=== PATIENT | female | born 1945 | race Caucasian/White ===

== ENCOUNTER 2018-10-05 14:01 | Outpatient (REF) | payer MEDICARE, OTHER, SELFPAY ==
[2018-10-05 21:21] LABS: HCT 38.3 % (36.0-46.0); HGB 12.2 g/dL (12.0-15.5); Mean Corp. HGB Concentration 31.9 g/dL (32.0-36.0); Mean Corpuscular Hemoglobin 28.2 pg (27.0-33.0); Mean Corpuscular Volume 88.7 fL (80-95); Mean Platelet Volume 10.6 fL (8.0-11.0); Platelet Count 257 x1000/uL (130-400); RBC 4.32 m/cumm (4.00-5.20); RBC Distribution Width 13.2 % (11.7-14.6); White Blood Cell Count 6.96 k/cumm (4.4-10.8)
[2018-10-05 21:29] LABS: Anion Gap 11.2 mmol/L (3-11); BUN 22 mg/dL (7-18); CO2 24.8 mmol/L (21.0-32.0); Calcium 9.1 mg/dL (8.5-10.1); Calculated LDL 94; Chloride 104 mmol/L (98-107); Cholesterol 171 mg/dL (50-200); Glucose 90 mg/dL (70-100); HDL Cholesterol 62 mg/dL (40-60); Potassium 4.3 mmol/L (3.5-5.1); Sodium 140 mmol/L (136-145); Triglyceride 75 mg/dL (30-150)
== END 2018-10-05 14:21 ==
LOC: NCHCN 14:01
PROVIDERS: PCP Nurse Practitioner Family; Visit Provider Nurse Practitioner Family
DX: E11.9 Type 2 diabetes mellitus without complications (principal); I10 Essential (primary) hypertension; E78.5 Hyperlipidemia, unspecified; Z86.2 Personal history of diseases of the blood and blood-forming organs and certain disorders involving the immune mechanism
CPT/HCPCS: 80048; 80061; 83721; 85027

== ENCOUNTER 2019-09-30 22:36 | Outpatient (REF) | payer MEDICARE, OTHER, SELFPAY ==
[2019-09-30 21:34] LABS: HCT 36.6 % (36.0-46.0); HGB 11.7 g/dL (12.0-15.5); Mean Corpuscular Hemoglobin 27.6 pg (27.0-33.0); Mean Corpuscular Volume 86.3 fL (80-95); Mean Platelet Volume 10.4 fL (8.0-11.0); Platelet Count 314 x1000/uL (130-400); RBC 4.24 m/cumm (4.00-5.20); RBC Distribution Width 13.5 % (11.7-14.6); White Blood Cell Count 6.67 k/cumm (4.4-10.8)
[2019-09-30 21:58] LABS: Hemoglobin A1C 6.6 % (3.8-5.6)
[2019-09-30 22:19] LABS: Anion Gap 12.1 mmol/L (3-11); BUN 20 mg/dL (7-18); CO2 25.9 mmol/L (21.0-32.0); CREATININE 0.94 mg/dL (0.55-1.02); Calcium 9.4 mg/dL (8.5-10.1); Chloride 105 mmol/L (98-107); Estimated GFR 58.37 (mL/min/1.73m2); Glucose 100 mg/dL (74-106); Magnesium 1.9 mg/dL (1.8-2.4); Potassium 4.3 mmol/L (3.5-5.1); Sodium 143 mmol/L (136-145); Vitamin B12 387 pg/mL (193-986)
== END 2019-09-30 22:56 ==
LOC: NCHCN 22:36
PROVIDERS: PCP Nurse Practitioner Family; Visit Provider Nurse Practitioner Family
DX: E11.9 Type 2 diabetes mellitus without complications (principal); I10 Essential (primary) hypertension; K21.9 Gastro-esophageal reflux disease without esophagitis; M15.9 Polyosteoarthritis, unspecified; Z86.2 Personal history of diseases of the blood and blood-forming organs and certain disorders involving the immune mechanism
CPT/HCPCS: 80048; 85027; 82607; 83036; 83735

== ENCOUNTER 2020-09-28 14:19 | Outpatient (REF) | payer MEDICARE, OTHER, SELFPAY ==
--- OUTSIDE RECORDS SUMMARY | 2020-09-28 14:23 | XMS_ITS | Continuity of Care Document ---
:1945 Author Organization Address [address] [place] [address] Care Team Providers Name Role [facility] Unavailable Dianelys Borden Attending Physician Allergies, Adverse Reactions, Alerts Allergen Type Severity Reaction Last Updated Verified Status simvastatin Allergy Unknown leg cramps November 01, 2017 N Act nguyễn Sulfa (Sulfonamide Allergy unknown September 07, 2016 Y Active Antibiotics) Medications Active Medications Medication Dose Units Route Sig Qty Start Date Status Atorvastatin 40 MG ORAL BEDTIME June 23, 2016 Activ e Omeprazole 40 MG ORAL EVERY MORNING June 23, 2016 A ctive Calcium Carbonate 500 MG ORAL TWICE A DAY June 23 017 Active [Calcium 500] Metformin 1000 MG ORAL TWICE A DAY June 23, 2016 Acti ve Ibuprofen [Motrin Ib] 600 MG ORAL THREE TIMES A DAY June 23, 2016 Active PRN For Pain Multivitamin 1 TAB-CAP ORAL EVERY MORNING June 23, 2016 Active Atenolol 50 MG ORAL EVERY MORNING June 23, 2016 Act nguyễn Magnesium 400 MG ORAL EVERY EVENING June 23, 2016 Ac tive Metoprolol Succinate November 01 Active Discontinued Medications Medication Dose Units Route Sig Qty Start Discontinued Status Date Date Metformin 500 MG ORAL EVERY June 23September 02, 2016 Discontinued MORNING 2016 Aspirin 81 MG ORAL BEDTIME June 23September 02, 2016 Di scontinued 2016 Lisinopril 40 MG ORAL EVERY June 23November 01 8 Discontinued 2016 Nitrofurantoin 1 CAP ORAL Q12H PRN June 23October Discontinued Monohyd/M-Cryst For 2017 [Macrobid] Bladder Spasms Cephalexin 500 MG ORAL TWICE A 14 October 03November 01 8 Discontinued 2017 Problem List Inactive/Resolved Problems Medical Problem Onset Date Status Post concussion syndrome Inactive Acute UTI Inactive Procedures Procedure Date Status MRI Brain w/wo Contrast November 01, [address] Head w/o Contrast November 01, 2017 completed Urine Culture October 03, 2017 completed Relevant Diagnostic Tests and/or Laboratory Data Laboratory Results Test Date/Time Result Interp. Ref. Range Result Comment White Blood Count November 01, 2017 6.39 1000/mm3 4.8-10.8 9:11am Red Blood Count November 01, 2017 4.01 M/mm3 Low 4.20-5.40 9:11am Hemoglobin November 01, 2017 11.3 g/dL Low 12.0-16.0 9:11am Hematocrit November 01, 2017 35.9 % Low 37-47 9:11am Mean Corpuscular November 01, 2017 89.5 fL 81.0-99.0 Volume 9:11am Mean Corpuscular November 01, 2017 28.2 pg 27-31 Hemoglobin 9:11am Mean Corpuscular November 01, 2017 31.5 g/dL Low 33-37 Hemoglobin Concent 9:11am Red Cell November 01, 2017 14.1 % 11.5-14.5 Distribution Width 9:11am Platelet Count November 01, 2017 259 1000/mm3 140-440 9:11am Mean Platelet Volume November 01, 2017 9.9 fL 7.4-10.4 9:11am Neutrophils (%) November 01, 2017 60.3 % 40.0-72.0 (Auto) 9:11am Lymphocytes (%) November 01, 2017 29.4 % 17-45 (Auto) 9:11am Monocytes (%) (Auto) November 01, 2017 7.7 % 3-11 9:11am Eosinophils (%) November 01, 2017 2.3 % 0-3 (Auto) 9:11am Basophils (%) (Auto) November 01, 2017 0.3 % 0-1 9:11am Neutrophils # (Auto) November 01, 2017 3.85 1000/mm3 1.4-6.5 9:11am Lymphocytes # (Auto) November 01, 2017 1.88 1000/mm3 1.2-3.4 9:11am Monocytes # (Auto) November 01, 2017 0.49 1000/mm3 0.0-0.8 9:11am Eosinophils # (Auto) November 01, 2017 0.15 1000/mm3 0.0-0.7 9:11am Basophils # (Auto) November 01, 2017 0.02 1000/mm3 0.0-0.1 9:11am Differential Method November 01, 2017 Automated 9:11am Sodium Level November 01, 2017 142 mmol/L 137-145 9:11am Potassium Level November 01, 2017 4.1 mmol/L 3.6-5.0 9:11am Chloride Level November 01, 2017 105 mmol/L 98-107 9:11am Carbon Dioxide Level November 01, 2017 28 mmol/L 22-30 9:11am Anion Gap November 01, 2017 9 7-16 9:11am Blood Urea Nitrogen November 01, 2017 20 mg/dL High 7-17 9:11am Creatinine November 01, 2017 0.70 mg/dL 0.52-1.04 9:11am Glomerular November 01, 2017 > 60 mL/min 60.0- Filtration Rate Calc 9:11am Glucose Level November 01, 2017 138 mg/dL High 70-100 9:11am Calcium Level November 01, 2017 9.7 mg/dL 8.4-10.2 9:11am Microbiology Results Procedure Source Result Collection Date/Time Result Date/Time Urine Culture Ur,Clean Catch Escherichia Coli October 03, 2017 1:00pm October 05, 2017 8:41am Advance Directives Advance Directive Response Recorded Date/Time Do we have a copy on file here at [facility]? Yes 2016 8:06am Does patient have an Advanced Directive? Yes June 29, 2016 8:06am Pt has a Living Will? Yes June 29, 2016 8:06 am Pt has a Power of Airbrush Painter? Yes June 29 8:06am Hospital Discharge Instructions No known hospital discharge instructions. Hospital Discharge Medications Medication Dose Units Route Sig Qty Days Order Status Instru ctions Date Atorvastatin 40 MG ORAL BEDTIME June Metformin 500 MG ORAL EVERY June Discontinued MORNING 2016 Omeprazole 40 MG ORAL EVERY June Active MORNING 2016 Aspirin 81 MG ORAL BEDTIME June Calcium 500 MG ORAL TWICE A June Active Carbonate DAY 2016 Metformin 1000 MG ORAL TWICE A June Active DAY 2016 Ibuprofen 600 MG ORAL THREE June Active TIMES A 2016 DAY PRN For Pain Lisinopril 40 MG ORAL EVERY June Discontinued MORNING 2016 Multivitamin 1 TAB-CAP ORAL EVERY June Active MORNING 2016 Atenolol 50 MG ORAL EVERY June Active MORNING 2016 Magnesium 400 MG ORAL EVERY June Active EVENING 2016 Nitrofurantoin 1 CAP ORAL Q12H PRN June Disc inued Monohyd/M-Cryst For 2016 Bladder Spasms Cephalexin 500 MG ORAL TWICE A September Metoprolol October Encounters Encounter Facility Location Admit/Visit Discharge/Departure Atte nding Date Date Provider Departed [facility] December 12December 12, 2017 Physician Caleb[facility] Dermatology 2017 11:08am 11:09am Kaitlynn martinez Office Visit Departed [facility] Pathology December 12December 12, 2017 Suha [facility] 2017 7:45am 7:46am Kristina Departed [facility] Emergency November 01, 2017 November 01, 2017 11:28a m [facility] Department 6:46am Departed [facility] October 03, 2017 October 03, 2017 10:4 3am Physician Yoel[facility] 10:42am Yen martinez [place] Office Visit Departed [facility] October 03, 2017 October 03, 2017 11:4 5am [facility] 10:36am [place] Functional Status No known functional status. Immunizations No known immunizations. Payers Payer Name Policy Type Covered Covered Relationship Subscriber Sub scriber Constitution Party Constitution Party Id Id MEDICARE Medicare BRYCE [id number] Self/Same as BRYCE HILL [id number] OUT (DO NOT Primary LIZ Patient USE) MEDICARE Medicare BRYCE [id number] Self/Same as BRYCE HILL 3N [id number] PART A AND Primary LIZ Patient B COVERAGE SELF PAY Personal [employer] BRYCE [id number] Self/Same as BRYCE HILL [id number] HEALTH CARE LIZ Patient [employer] BRYCE [id number] Self/Same as BRYCE HILL [id number] HEALTH (DO HILL Patient NOT USE) Plan of Care No Known Plan of Care Information Social History Query Response Start Date Stop Date Smoking Status Never smoker Vital Signs Vital Reading Result Reference Range Collection Date/ Time Height n/a Weight 88.451 kg November 01, 2017 6: 50am Temperature 98.4 F 97.6 F-99.6 F November 01, 2017 6: 50am Pulse 87 BPM 60-100 November 01, 2017 6: 50am Respiration 16 RPM 12-24 November 01, 2017 6: 50am Pulse Oximetry 97 % 95-100 November 01, 2017 6: 50am Blood Pressure Systolic 152 100-140 November 01, 2017 6:50am Blood Pressure Diastolic 82 50-85 October 6:50am Body Mass Index n/a
--- OUTSIDE RECORDS SUMMARY | 2020-09-28 14:23 | XMS_ITS | Continuity of Care Document ---
:1945 Author Organization [facility] Address [address] [place] [address] Care Team Providers Name Role Phone [facility] Primary Care Physician Unavailable Maggy Rojas Attending Physician Allergies, Adverse Reactions, Alerts Allergen Type Severity Reaction Last Updated Verified Status simvastatin Allergy leg cramps June 23, 2016 Y Act nguyễn Sulfa (Sulfonamide Allergy unknown June 23, 2016 Y Active Antibiotics) Medications Active Medications Medication Dose Units Route Sig Start Date Status Atorvastatin 40 mg ORAL BEDTIME June 23, 2016 Act nguyễn Metformin 500 mg ORAL EVERY MORNING June 23, 2016 Ac tive Omeprazole 40 mg ORAL EVERY MORNING June 23, 2016 A ctive Aspirin 81 mg ORAL BEDTIME June 23, 2016 Active Calcium Carbonate [Calcium 500 mg ORAL TWICE A DAY M 2016 Active 500] Metformin 1000 mg ORAL 1800 June 23, 2016 Active Ibuprofen [Motrin Ib] 600 mg ORAL THREE TIMES A DAY June 23, 2016 Active PRN For Pain Lisinopril 40 mg ORAL EVERY MORNING June 23, 2016 A ctive Multivitamin 1 tab-cap ORAL EVERY MORNING June 23, 2016 Active Atenolol 50 mg ORAL EVERY MORNING June 23, 2016 Ac tive Magnesium 400 mg ORAL EVERY EVENING June 23, 2016 Ac tive Nitrofurantoin 1 cap ORAL Q12H PRN For June 23 7 Active Monohyd/M-Cryst [Macrobid] Bladder Spasm s Problem List No problem information available. Procedures Procedure Date Status CATARACT SURG W/IOL 1 STAGE June 29, 2016 active Reason for Referral Reason for Referral Date Referral Provider Office Contact Locat ion was Provided Relevant Diagnostic Tests and/or Laboratory Data No known relevant diagnostic tests, laboratory data, and/or discharge summary. Advance Directives Advance Directive Response Recorded Date/Time Do we have a copy on file here at [facility] Yes [facility] 2016 8:06am Does patient have an Advanced Directive? Yes June 29, 2016 8:06am Pt has a Living Will? Yes June 29, 2016 8:06 am Pt has a Power of Manager Training? Yes June 29 8:06am Chief Complaint and Reason for Visit Encounter Admit Date Chief Complaint Reason for Visit Departed July 07, 2016 Provider Based Billing Physician/Provider Office 9:12am Visit Hospital Discharge Instructions No known hospital discharge instructions. Hospital Discharge Medications Medication Dose Units Route Sig Qty Days Order Status Instru ctions Atorvastatin 40 mg ORAL BEDTIME June 232016 Metformin 500 mg ORAL EVERY June 23, 2016 Omeprazole 40 mg ORAL EVERY June 23, 2016 Aspirin 81 mg ORAL BEDTIME June 232016 Calcium Carbonate 500 mg ORAL TWICE A DAY June 232016 Metformin 1000 mg ORAL 1800 June 232016 Ibuprofen 600 mg ORAL THREE TIMES June 23, Active A DAY PRN 2016 For Pain Lisinopril 40 mg ORAL EVERY June 23, 2016 Multivitamin 1 tab-cap ORAL EVERY June 23, 2016 Atenolol 50 mg ORAL EVERY June 23, 2016 Magnesium 400 mg ORAL EVERY June 23, EVENING 2016 Nitrofurantoin 1 cap ORAL Q12H PRN June 23, e Monohyd/M-Cryst For Bladder 2017 Spasms Encounters Encounter Facility Location Admit/Visit Discharge/Departure Atte nding Date Date Provider Departed [facility] July 07July 07, 2016 9:13am Crystal [facility] 2017 9:12am Albert martinez Office Visit Departed [facility] June 30, 2016 June 30, 2016 8:14 am Crystal Physician/[facility] Ophthalmology 8:13am Ricardo martinez Office Visit Departed [facility] Surgical June 29, 2016 June 29, 2016 9:49am Crystal Surgical [facility] Services 8:00am Abisai Zepeda Registered [facility] 2016 2:52pm Norris kraft Functional Status No known functional status. Immunizations No known immunizations. Payers Payer Name Policy Type Covered Covered Relationship Subscriber Sub scriber Constitution Party Constitution Party Id Id MEDICARE Medicare BRYCE [id number] Self/Same as BRYCE HILL [id number] OUT (DO NOT Primary LIZ Patient USE) MEDICARE Medicare BRYCE [id number] Self/Same as BRYCE HLIL [id number] PART A AND Primary LIZ Patient B COVERAGE SELF PAY Personal [employer] BRYCE [id number] Self/Same as BRYCE HILL [id number] HEALTH CARE LIZ Patient [employer] WU [id number] Self/Same as BRYCE HILL [id number] [facility] Patient Plan of Care No Known Plan of Care Information Social History Query Response Start Date Stop Date Smoking Status Never Smoker Vital Signs Vital Reading Result Reference Range Collection Date/ Time Height 5 ft 4 in June 23, 2016 10 :22am Weight 90.718 kg June 23, 2016 10 :22am Temperature 97.8 F 97.6 F-99.6 F June 29, 2016 9: 48am Pulse 53 BPM 60-100 June 29, 2016 9: 48am Respiration 20 RPM 12-June 29, 2016 9: 48am Pulse Oximetry n/a Blood Pressure Systolic 141 100-140 June 29, 2016 9:48am Blood Pressure Diastolic 87 50-85 June 9:48am Body Mass Index n/a
--- OUTSIDE RECORDS SUMMARY | 2020-09-28 14:23 | XMS_ITS | Continuity of Care Document ---
:1945 Author Organization [facility] Address [address] [place] [address] Care Team Providers Name Role Phone [place] of Town Primary Care Physician Unavailable Tashia Fong Attending Physician Unavailable Allergies, Adverse Reactions, Alerts Allergen Type Severity Reaction Last Updated Verified Status simvastatin Adverse Reaction Moderate October 13, 2016 Y Active Sulfa (Sulfonamide Adverse Reaction Unknown February 23 Y Active Antibiotics) Medications Active Medications Medication [...] 2016 Ac tive Metoprolol Succinate November 01 18 Active Discontinued Medications Medication Dose Units Route Sig Qty Start Discontinued Status Date Date Metformin 500 MG ORAL EVERY June 23September 02, 2016 Discontinued MORNING 2016 Aspirin 81 MG ORAL BEDTIME June 23September 02, 2016 Di scontinued 2016 Lisinopril 40 MG ORAL EVERY June 23November 01 8 Discontinued MORNING 2016 Nitrofurantoin 1 CAP ORAL Q12H PRN June 23October Discontinued Monohyd/M-Cryst For 2017 [Macrobid] Bladder Spasms Cephalexin 500 MG ORAL TWICE A 14 October 03November 01 8 Discontinued DAY 2017 Problem List Active Problems Medical Problem Onset Date Status Combined forms of age-related cataract May 24, 2016 Neoplasm of uncertain behavior of skin December 12, 2017 Type 2 diabetes mellitus May 24, 2016 Trochanteric bursitis February 27, 2018 Neurogenic claudication due to lumbar spinal stenosis 2018 Thoracic and lumbosacral neuritis May 10, 2018 History of cataract extraction July 07, 2016 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 27, 2018 Inactive/Resolved Problems Medical Problem Onset Date Status Acute hip pain Inactive Post concussion syndrome Inactive Acute UTI Inactive Procedures Procedure Date Status MRI Lumbar Spine w/o Contrast April 09, 2018 completed Lumbar Spine 4 vw Min February 27, 2018 active Hip 2 vw Min RT February 22, 2018 completed MRI Brain w/wo Contrast November 01, 2017 [...] 03, 2017 1:00pm October 05, 2017 8:41am Chief Complaint and Reason for Visit Encounter Admit Date Chief Complaint Reason for Visit Departed August 21, 2018 Provider Based Billing Physician/Provider Office 8:51am Visit Hospital Discharge Instructions No known hospital [...] Nitrofurantoin 1 CAP ORAL Q12H PRN June inued Monohyd/M-Cryst For 2016 Bladder Spasms Cephalexin 500 MG ORAL TWICE A 14 September Discontinued DAY 2017 Metoprolol October Active Succinate 2017 Encounters Encounter Facility Location Admit/Visit Discharge/Departure Atte nding Date Date Provider Departed [facility] August 21August 21, 2018 8:52am Ajit [facility] 2018 8:51am Juvencio ovider Office Visit Departed [facility] August 21August 21, 2018 Rena [facility]Agustina 2018 12:00am Con version ovider ab Office Visit Departed [facility] August 20August 20, 2018 Rena [facility] Derm[facility] 2018 12:00am Sukhdev michele [facility]ider Office Visit Departed [facility] May 10May 10, 2018 Sumanth rodriguez [facility] 2018 9:13am 9:14am Juvencio ovider Office Visit Departed [facility] May 10May 10, 2018 Santos holden Physician[facility] 2018 12:00am Con version ovider ab Office Visit Departed [facility] April 13April 13, 2018 Conchita sweet [facility] 2017 1:53pm 1:54pm Jamel ovider Office Visit Departed [facility] April 13April 13, 2018 Conchita sweet [facility]ician[facility] 2017 12:00am Nol an ovider ab Office Visit Departed [facility] April 11April 11, 2018 Conchita sweet [facility]ician[facility] 2017 12:00am Nol an ovider ab Office Visit Departed [facility] April 09April 09, 2018 [facility] 12:08[facility] 12:09pm [facility] Departed [facility] March 26March 26, 2018 Mack smith [facility] 2017 8:52am 8:53am Jamel ovider Office Visit Departed [facility] March 26March 26, 2018 Mack smith Physician/[facility] Orthopedic&Agustina 2018 12:00am Nol an ovider ab Office Visit Discharged [facility] March 21April 25, [address] [facility] 2017 10:30am 11:29am Jamel Departed [facility] March 13March 13, 2018 Conchita sweet [facility] 2018 9:05am 9:06am Jamel ovider Office Visit Departed [facility] March 13March 13, 2018 Conchita sweet [facility]ician[facility] 2017 12:00am Nol an ovider ab Office Visit Departed [facility] February 27February 27, 2018 Art kraft [facility] 2017 10:03am 10:04am Jamel Orthopedics Departed [facility] February 27February 27, [facility] 2017 9:24am 9:25am Jamel ovider Office Visit Departed [facility] February 27February 27, 2018 Mack smith Physician/[facility] Orthopedic&Agustina 2018 12:00am Nol an ovider ab Office Visit Departed [facility] February 22February 22, 2018 And letitia Physician/[facility] 2018 8:59am 9:00am Nyasia ovider [place] Office Visit Departed [facility] February 22February 22, [facility] 2018 8:55am 10:19am [place] Discharged [facility] February 20March 12, [facility] 9:30am 11:29am Barbara Departed [facility] February 08February 08, 2018 Cassandra hernandez, Physician[facility] 2018 9:41am 9:42am Stepjorge l maldonado ovider Office Visit Departed [facility] February 08February 08, 2018 Santos holden, [facility]ician[facility] 2018 12:00am Sukhdev leny ovider Office Visit Departed [facility] December 12December 12, 2017 Eugenie bryan, [facility] 2018 11:08am 11:09am Kaitlynn piña ovider Office Visit Departed [facility] December 12December 12, [facility] 7:[facility]am 7:46am Kristina Departed [facility] December 12December 12, 2017 Anupama sarmiento, [facility]ician[facility] 2018 12:00am Sukhdev leny ovider Office Visit Departed [facility] Emergency November 01, 2017 November 01, 2017 11:28a m [facility] Department 6:46am Departed [facility] October 03, 2017 October 03, 2017 10:4 3am Yoel [facility] 10:42am Yen juan Wrenadriano Office Visit Departed [facility] October 03, 2017 October 03, 2017 11:4 5am [facility] 10:36am Jasmina Functional Status No known functional status. Immunizations No known immunizations. Payers Payer Name Policy Type Covered Covered Relationship Subscriber Sub scriber Green Party Green Party Id Id [employer] BRYCE [id number] Self/Same as BRYCE HILL [id number] OUT OF [place] Patient STATE MEDICARE Medicare BRYCE [id number] Self/Same as BRYCE HILL [id number] OUT (DO NOT Primary LIZ Patient USE) MEDICARE Medicare BRYCE [id number] Self/Same as BRYCE HILL 3N [id number] PART A AND Primary LIZ Patient B COVERAGE SELF PAY Personal [employer] BRYCE [id number] Self/Same as BRYCE HILL [id number] HEALTH CARE LIZ Patient [employer] BRYCE [id number] Self/Same as BRYCE HILL [id number] HEALTH (DO LIZ Patient NOT USE) Plan of Care No Known Plan of Care Information Social History No known social history. Vital Signs Vital Reading Result Reference Range Collection Date/ Time Height n/a Weight 88.451 kg February 22, 2018 9:10am Temperature 98.4 F 97.6 F-99.6 F February 22, 2018 9:10am Pulse 72 BPM 60-100 February 22, 2018 9:10am Respiration 16 RPM 12-24 February 22, 2018 9:10am Pulse Oximetry 98 % 95-100 February 22, 2018 9:10am Blood Pressure Systolic 128 100-140 February 22, 2018 9:10am Blood Pressure Diastolic 74 50-85 Novembe 2017 9:10am Body Mass Index n/a
--- OUTSIDE RECORDS SUMMARY | 2020-09-28 14:23 | XMS_ITS | Continuity of Care Document ---
:1945 Author Organization [facility] Address [address] [place] [address] Care Team Providers Name Role Phone Zoraida Primary Care Physician Harjit Collins Attending Physician Allergies, Adverse Reactions, Alerts Allergen Type Severity Reaction Last Updated Verified Status simvastatin Allergy Unknown leg cramps February 22, 2018 Y Active Sulfa (Sulfonamide Allergy unknown September 07, 2016 [...] 40 MG ORAL EVERY June 23November 01 201 8 Discontinued MORNING 2016 Nitrofurantoin 1 CAP ORAL Q12H PRN June 23October Discontinued Monohyd/M-Cryst For 2017 [Macrobid] Bladder Spasms Cephalexin 500 MG ORAL TWICE A 14 October 03November 01 201 8 Discontinued DAY 2017 Problem List Active Problems Medical Problem Onset Date Status Acute hip pain Active Inactive/Resolved Problems Medical Problem Onset Date Status Post concussion syndrome Inactive Acute UTI Inactive Procedures Procedure Date Status Hip 2 vw Min RT February 22, [...] have a copy on file here at [facility]? Yes [facility] 2016 8:06am Does patient have an Advanced Directive? Yes June 29, 2016 8:06am Pt has a Living Will? Yes June 29, 2016 8:06 am Pt has a Power of [employer]? Yes June 29 7 8:06am Chief Complaint and Reason for Visit Encounter Admit Date Chief Complaint Reason for Visit Departed February 22, 2018 Provider Based Billing Physician/Provider 8:59am Office Visit Hospital Discharge Instructions No known hospital discharge instructions. Hospital Discharge Medications Medication Dose Units Route Sig Qty Days Order Status Instru ctions Date Atorvastatin 40 MG ORAL BEDTIME June Active 2016 Metformin 500 MG ORAL EVERY June Discontinued [...] Spasms Cephalexin 500 MG ORAL TWICE A 05 October Discontinued DAY 2017 Metoprolol October Active Succinate 2017 Encounters Encounter Facility Location Admit/Visit Discharge/Departure Atte nding Date Date Provider Departed [facility] February 22, February 22, 2018 And letitia [facility] 2017 8:59am 9:00am Nyasia Freedman Office Visit Departed [facility] February 22, February 22, [facility] 2017 8:55am 10:19am Jasmina Registered [facility] February 20, [facility] 2017 9:30am Barbara Departed [facility] February 08, February 08, 2018 Cassandra hernandez Physician[facility] 2018 9:41am 9:42am Gianna maldonado ovider Office Visit Departed [facility] December 12, December 12, 2017 Eugenie bryan Physician[facility] 2018 11:08am 11:09am Kaitlynn piña ovider Office Visit Departed [facility] Path[facility] December 12, December 12, [facility] 7:46am Kristina Departed [facility] Emergency November 01, 2017 November 01, 2017 11:28a m [facility] Department 6:46am Departed [facility] October 03, 2017 October 03, 2017 10:4 3am Yoel Physician[facility] 10:42am Yen Freedman Office Visit Departed [facility] October 03, 2017 October 03, 2017 11:4 5am [facility] 10:36am Jasmina Functional Status No known functional status. Immunizations No known immunizations. Payers Payer Name Policy Type Covered Covered Relationship Subscriber Sub scriber Green Party Green Party Id Id MEDICARE Medicare BRYCE [id number] Self/Same as BRYCE HILL [id number] (DO NOT Primary LIZ Patient USE) MEDICARE Medicare BRYCE [id number] Self/Same as BRYCE HILL [id number] PART A AND Primary LIZ Patient B COVERAGE SELF PAY Personal [employer] BRYCE [id number] Self/Same as BRYCE HILL [id number] HEALTH CARE LIZ [employer] BRYCE [id number] Self/Same as BRYCE HILL [id number] HEALTH (DO LIZ Patient NOT USE) Plan [...] 2018 9:10am Blood Pressure Diastolic 74 50-85 [facility] 2017 9:10am Body Mass Index n/a
--- OUTSIDE RECORDS SUMMARY | 2020-09-28 14:23 | XMS_ITS | Continuity of Care Document ---
:1945 Author Organization [facility] Address [address] [place] [address] Care Team Providers Name Role Phone [facility] Primary Care Physician Unavailable Maggy Rojas Attending [...] problem information available. Procedures Procedure Date Status Provider(s) Cataract Extraction with IOL - MAC & June 29, 2016 completed Abisai Rojas Topical (Right) Reason for Referral Reason for Referral Date Referral Provider Office Contact Locat ion was Provided Relevant Diagnostic Tests and/or Laboratory Data No known relevant diagnostic tests, laboratory data, and/or discharge summary. Advance Directives Advance Directive Response Recorded Date/Time Do we have a copy on file here at [facility]? Yes M arch 2016 8:06am Does patient have an Advanced Directive? Yes June 29, 2016 8:06am Pt has a Living Will? Yes June 29, 2016 8:06 am Pt has a Power of Community Living Specialist? Yes June 29 8:06am Chief Complaint and Reason for Visit Encounter Admit Date Chief Complaint Reason for Visit Departed July 07, 2016 Provider Based Billing Physician/Provider Office 9:12am Visit Hospital Discharge Instructions No known hospital discharge instructions. Hospital Discharge Medications Medication Dose Units Route Sig Qty Days Order Status Instru ctions Date Atorvastatin 40 mg ORAL BEDTIME June 232016 [...] Discharge/Departure Atte nding Date Date Provider Departed [facility] July 07July 07, 2016 9:13am Crystal [facility] 2017 9:12am Albert martinez Office Visit Departed [facility] June 30, 2016 June 30, 2016 8:14 am Crystal Physician[facility] 8:13am Ricardo martinez Office Visit Departed [facility] Surgical June 29, 2016 June 29, 2016 9:49am Crystal Surgical Day [facility] Services 8:00am Abisai Zepeda Registered [facility] May 24, Crystal [facility] 2016 2:52pm Norris kraft Functional Status No known functional status. Immunizations No known immunizations. Payers Payer Name Policy Type Covered Covered Relationship Subscriber Sub scriber Constitution Party Constitution Party Id Id MEDICARE Medicare BRYCE [id number] Self/Same as BRYCE HILL [id number] OUTPATIENT Primary LIZ Patient *DON'T USE MEDICARE PART Medicare BRYCE [id number] Self/Same as BRYCE HILL [id number] A AND B Primary LIZ Patient COVERAGE SELF PAY Personal [employer] BRYCE [id number] Self/Same as BRYCE HILL [id number] CARE LIZ Patient [employer] BRYCE [id number] Self/Same as BRYCE HILL [id number] (DO NOT USE) LIZ Patient Plan of Care No Known Plan [...]
--- OUTSIDE RECORDS SUMMARY | 2020-09-28 14:23 | XMS_ITS | Continuity of Care Document ---
:1945 Author Organization [facility] Address [address] [place] [address] Care Team Providers Name Role Phone Out of Town Primary Care Physician Unavailable Allergies, Adverse Reactions, Alerts Allergen Type Severity Reaction Last Updated Verified Status simvastatin Adverse Reaction Moderate March 10 Active 2018 Sulfa (Sulfonamide Adverse Reaction Unknown March 10 Active Antibiotics) 2019 Medications Active Medications Medication Dose Units Route Sig Qty Days Start Date Status In structions Atorvastatin 40 MG ORAL BEDTIME June 232016 Omeprazole 40 MG ORAL EVERY June 23, Active MORNING 2016 Calcium 500 MG ORAL TWICE A June 23, Active Carbonate 2016 [Calcium 500] Metformin 1000 MG ORAL TWICE A June 23, DAY 2016 Ibuprofen 600 MG ORAL THREE June 23, Active [Motrin Ib] TIMES A 2016 DAY PRN For Pain Metoprolol November 01 Succinate 2017 Lisinopril February Prednisone 10 MG ORAL DAILY 5 5 February Fluticasone 1 SPR NASAL Q12H 9.9 February Active adm inister into Propionate 2018 each nostril Guaifenesin 400 MG ORAL .q8hr 15 5 February Benzonatate 100 MG ORAL every day 14 February Active at bedtime 2018 PRN For cough Discontinued Medications Medication Dose Units Route Sig Qty Days Start Discontinued Status I nstructions Date Date Metformin 500 MG ORAL EVERY JuneSeptember 02, 2016 Elissa CRAVEN 2, noemy G 2016 Aspirin 81 MG ORAL BEDTIM JuneSeptember 02, 2016 Elissa Roland 2, 2016 Lisinopril 40 MG ORAL EVERY JuneNovember 01, 2017 Discont i HERBER 2, nu G 2016 Multivitamin 1 TAB-CA ORAL EVERY JuneMarch 10, Disco nti P HERBER 2018 nu2016 Atenolol 50 MG ORAL EVERY JuneMarch 10, Disconti MORNIN 2018 Magnesium 400 MG ORAL EVERY JuneMarch 10, Disconti EVENIN 2018 Nitrofurantoi 1 CAP ORAL Q12H JuneNovember 01, 2017 Disc onti n PRN 2, Monohyd/M-Cry For 2017 st [Macrobid] Bladde r Spasms Cephalexin 500 MG ORAL TWICE 14 SeptemberNovember 01, 2017 Discont i A DAY 12, 2017 Problem List Active Problems Medical Problem Onset Date Status Combined forms of age-related cataract May 24, 2016 Acute Eustachian salpingitis, bilateral Active Acute maxillary sinusitis Active Neoplasm of uncertain behavior of skin December 12, 2017 Type 2 diabetes mellitus May 24, 2016 Trochanteric bursitis February 27, 2018 Neurogenic claudication due to lumbar spinal stenosis Aprua2018 Thoracic and lumbosacral neuritis May 10, 2018 Impacted cerumen of left ear Active History of cataract extraction July 07, 2016 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 27, 2018 Inactive/Resolved Problems Medical Problem Onset Date Status Acute hip pain Inactive Post concussion syndrome Inactive Acute UTI Inactive Procedures Procedure Date Status Provider(s) Cataract Extraction with IOL - MAC September 07, 2016 completed Abisai Rojas MD & Topical (Left) Cataract Extraction with IOL - MAC June 29, 2016 completed Abisai Rojas MD & Topical (Right) MRI Lumbar Spine w/o Contrast April 09, 2018 completed Lumbar Spine 4 vw Min February 27, 2018 active Hip 2 vw Min RT February 22, 2018 completed MRI Brain w/wo Contrast November 01, [address] Head w/o Contrast November 01, 2017 completed X-RAY EXAM OF FOOT January 10, 2012 active Foot 3 vw Min RT January 10, 2012 completed X-RAY EXAM KNEE 4 OR MORE July 14, 2011 active Knee 4 vw Min Bilat July 14, 2011 completed Urine Culture completed Relevant Diagnostic Tests and/or Laboratory Data Laboratory Results Test Date/Time Result Interp. Ref. Range Result Comment White Blood Count 6.39 1000/mm3 4.8-10.8 Red Blood Count 4.01 M/mm3 Low 4.20-5.40 Hemoglobin 11.3 g/dL Low 12.0-16.0 Hematocrit 35.9 % Low 37-47 Mean Corpuscular 89.5 fL 81.0-99.0 Volume Mean Corpuscular 28.2 pg 27-31 Hemoglobin Mean Corpuscular 31.5 g/dL Low 33-37 Hemoglobin Concent Red Cell Distribution 14.1 % 11.5-14.5 Width Platelet Count 259 1000/mm3 140-440 Mean Platelet Volume 9.9 fL 7.4-10.4 Neutrophils (%) (Auto) 60.3 % 40.0-72.0 Lymphocytes (%) (Auto) 29.4 % 17-45 Monocytes (%) (Auto) 7.7 % 3-11 Eosinophils (%) (Auto) 2.3 % 0-3 Basophils (%) (Auto) 0.3 % 0-1 Neutrophils # (Auto) 3.85 1000/mm3 1.4-6.5 Lymphocytes # (Auto) 1.88 1000/mm3 1.2-3.4 Monocytes # (Auto) 0.49 1000/mm3 0.0-0.8 Eosinophils # (Auto) 0.15 1000/mm3 0.0-0.7 Basophils # (Auto) 0.02 1000/mm3 0.0-0.1 Differential Method Automated Prothrombin Time 21.0 SECONDS High 9.6-11.2 Prothromb Time 2.1 2.0-3.0 INR value valid only International Ratio on pa tients on stabilized war farin therapy. The recommended therapeutic ra nge for warfarin (Coumadin) for most clinincal indications is an INR of 2.0-3.0 . An INR of 2.5-3.5 is recommended fo r patients with mechanical hea rt valves. Sodium Level 142 mmol/L 137-145 Potassium Level 4.1 mmol/L 3.6-5.0 Chloride Level 105 mmol/L 98-107 Carbon Dioxide Level 28 mmol/L 22-30 Anion Gap 9 7-16 Blood Urea Nitrogen 20 mg/dL High 7-17 Creatinine 0.70 mg/dL 0.52-1.04 Glomerular Filtration > 60 mL/min 60.0- Rate Calc Glucose Level 138 mg/dL High 70-100 Calcium Level 9.7 mg/dL 8.4-10.2 Microbiology Results Procedure Source Result Collection Date/Time Result Date/Time Advance Directives Advance Directive Response Recorded Date/Time Do we have a copy on file here at [facility]? Yes M arch 2016 8:06am Does patient have an Advanced Directive? Yes June 29, 2016 8:06am Pt has a Living Will? Yes June 29, 2016 8:06 am Pt has a Power of Apartment Maintenance Supervisor? Yes June 29 8:06am Hospital Discharge Instructions Additional Discharge Instructions Gargle salt water se veral times a day to help the sore throat and to help your ears drain properly. Rx: Take the guaifenesin fabrice ry 8 hr for 5 days, to thin secretions and let your ears & sinuses drain properly. Rx: Take the prednisone ever y morning WITH FOOD. NO NSAIDs on those days (Aleve, Advil, ibuprofen) OTC: Swab AYR saline nasal g el into the nostril as often as you like, to keep the nasal passages open. Rx: Take the benzonatate cou gh medication only at bedtime, to stop the cough so you can sleep. DRINK lots of water. Rx: Use the fluticasone nasa l spray every 12 hr and AIM OUTWARDLY. No Instructions/Education Provided Hospital Discharge Medications Medication Dose Units Route Sig Qty Days Order Status Instru ctions Date Atorvastatin 40 MG ORAL BEDTIME June 232016 Metformin 500 MG ORAL EVERY June 23, Discontinued MORNING 2016 Omeprazole 40 MG ORAL EVERY June 23, Active MORNING 2016 Aspirin 81 MG ORAL BEDTIME June 232016 Calcium 500 MG ORAL TWICE A June 23, Active Carbonate 2016 Metformin 1000 MG ORAL TWICE A June 23, Active DAY 2016 Ibuprofen 600 MG ORAL THREE June 23, Active TIMES A 2016 DAY PRN For Pain Lisinopril 40 MG ORAL EVERY June 23, Discontinue d MORNING 2016 Multivitamin 1 TAB-CA ORAL EVERY June 23, Discontin ued P MORNING 2016 Atenolol 50 MG ORAL EVERY June 23, Discontinued MORNING 2016 Magnesium 400 MG ORAL EVERY June 23, Discontinued EVENING 2017 Nitrofurantoin 1 CAP ORAL Q12H PRN June 23, Disco ntinued Monohyd/M-Cryst For 2017 Bladder Spasms Cephalexin 500 MG ORAL TWICE A October 03, Discontinu ed DAY 2017 Metoprolol November 01, Active Succinate 2017 Lisinopril February Prednisone 10 MG ORAL DAILY 5 5 February Fluticasone 1 SPR NASAL Q12H 9.9 February Active adm inister Propionate 2018 into each nostril Guaifenesin 400 MG ORAL .q8hr 15 5 February Benzonatate 100 MG ORAL every 14 February Active day at 17, 2019 bedtime PRN For cough Encounters Encounter Facility Location Admit/Visit Discharge/Departure Atte nding Date Date Provider Registered [facility] March 10Rodolfo [facility] 2018 11:09am Abbey martinez Albadriano Office Visit Departed [facility] March 10, March 10, 2019 [facility] 2018 11:07am 12:00pm Albans Departed [facility] August 21August 21, 2018 Thony duron [facility] 2019 8:51am 8:52am Juvencio ovider Office Visit Departed [facility] August 21August 21, 2018 Rena [facility]Reha 2018 12:00am Co nversion ovider b Office Visit Departed [facility] August 20August 20, 2018 Rena [facility] Dermat[facility] 2018 12:00am Conver leny ovider Office Visit Departed [facility] May 10May 10, 2018 Sumanth rodriguez [facility] 2019 9:13am 9:14am Juvencio ovider Office Visit Departed [facility] May 10May 10, 2018 Santos holden [facility]Reha 2018 12:00am Co nversion ovider b Office Visit Departed [facility] April 13April 13, 2018 Conchita sweet [facility] 2018 1:53pm 1:54pm Jamel ovider Office Visit Departed [facility] April 13April 13, 2018 Conchita sweet [facility] 2018 12:00am No judy ovider b Office Visit Departed [facility] April 11April 11, 2018 Conchita sweet [facility] 2018 12:00am No judy ovider b Office Visit Departed [facility] April 09April 09, 201 8 [facility] [place] 2018 12:08pm 12:09pm Ju n Departed [facility] March 26March 26, 2018 Mack smith [facility] 2018 8:52am 8:53am Jamel ovider Office Visit Departed [facility] March 26March 26, 2018 Mack smith [facility] 2018 12:00am No judy ovider b Office Visit Discharged [facility] March 21April 25, 2018 Alanna lane [facility] Building 2017 10:30am 11:29am Jamel Departed [facility] March 13March 13, 2018 Conchita sweet [facility] 2018 9:05am 9:06am Jamel ovider Office Visit Departed [facility] March 13March 13, 2018 Conchita sweet [facility] 2018 12:00am No judy ovider b Office Visit Departed [facility] February 27February 27, 2018 [facility] 2018 10:03am 10:04am Jamel Departed [facility] February 27February 27, 2018 Mack smith Physician/[facility] Orthopedics 2018 9:24am 9:25am Jamel ovider Office Visit Departed [facility] February 27February 27, 2018 Mack smith Physician[facility] Orthopedic&Reha 2017 12:00am No judy ovider b Office Visit Departed [facility] February 22February 22, 2018 And letitia Physician/[facility] 2017 8:59am 9:00am Nyasia ovider [place] Office Visit Departed [facility] February 22February 22, 2018 [facility] 2018 8:55am 10:19am Albans Discharged [facility] February 20March 12, 2018 [facility] 2017 9:30am 11:29am Barbara Departed [facility] February 08February 08, 2018 Cassandra hernandez Physician[facility] Center Dermatology 2018 9:41am 9:42am Gianna maldonado ovider Office Visit Departed [facility] February 08February 08, 2018 Santos holden, [facility] 2018 12:00am Sukhdev leny ovider Office Visit Departed [facility] December 12December 12, 2017 Eugenie bryan [facility] 2018 11:08am 11:09am Kaitlynn piña ovider Office Visit Departed [facility] December 12December 12, [facility] 2018 7:45am 7:46am Kristina Departed [facility] December 12December 12, 2017 Anupama sarmiento, [facility] Derm[facility] 2018 12:00am Sukhdev leny ovider Office Visit Departed [facility] Emergency November 01, 2017 November 01, 2017 Emergency [facility] Center Department 6:46am 11:28am Departed [facility] October 03, 2017 October 03, 2017 Katty sanjuana, [facility] 10:42am 10:43am Yen ovider [place] Office Visit Departed [facility] October 03, 2017 October 03, 2017 [facility] 10:36am 11:45am Albans Departed [facility] October 13, 2016 October 13, 2016 9:00 am Crystal [facility] Op[facility] 8:59am Ricardo ry ovider Office Visit Departed [facility] October 13, 2016 October 13, 2016 Medlorin gonzalez [facility] 12:00am Conver leny ovider Office Visit Departed [facility] September 15, 2016 September 15, 2016 Rena [facility] 12:00am Conver leny ovider Office Visit Departed [facility] September 08, 2016 September 08, 2016 8:06am Crystal [facility] 8:05am Ricardo ry ovider Office Visit Departed [facility] September 08, 2016 September 08, 2016 Rena [facility] 12:00am Conver leny ovider Office Visit Departed [facility] September 07, 2016 September 07, 2016 8:18am [facility] Abisai Care Departed [facility] July 21July 21, 2016 Rena [facility] 2017 12:00am Conv ersion ovider Office Visit Departed [facility] July 14July 14, 2016 Mednavin [facility] 2017 12:00am Conv ersion ovider Office Visit Departed [facility] July 07July 07, 2016 William kraft [facility] 2017 9:12am 9:13am Albert ory ovider Office Visit Departed [facility] July 07July 07, 2016 Rena [facility] 2017 12:00am Conv ersion ovider Office Visit Departed [facility] June 30, 2016 June 30, 2016 8:14 am Crystal [facility] 8:13am Ricardo ry ovider Office Visit Departed [facility] June 30, 2016 June 30, 2016 Medlorin gonzalez [facility] 12:00am Conver leny ovider Office Visit Departed [facility] Surgical June 29, 2016 June 29, 2016 9:49am [facility] 8:00am Abisai Care Registered [facility] May 24 [facility] 2017 2:52pm Norris kraft Departed [facility] May 24May 24, 2016 Santos holden, [facility] 2017 12:00am Conv ersion ovider Office Visit Registered [facility] March 05[facility] 8[facility]am Barbara Departed [facility] March 05March 05, 2016 Sunil collins [facility] Medicine 2016 12:00am Nidia ovider Office Visit Registered [facility] February 26, [facility] 2015 8:00am Barbara Departed [facility] February 26February 27, 2016 Angel terry [facility] Medicine 2015 12:00am Nidia ovider Office Visit Departed [facility] February 23February 24, 2016 Jorge Luis santizo Physician[facility] St 2015 12:00am Yen martinez [place] Office Visit Registered [facility] February 19, [facility] 2015 8:00am Barbara Departed [facility] February 19February 20, 2016 Angel terry [facility] Medicine 2015 12:00am Nidia ovider Office Visit Departed [facility] February 12February 13, 2016 Anupama sarmiento [facility] Medicine 2015 12:00am Convers ion ovider Office Visit Registered [facility] February 05, [facility] 2015 8:00am Barbara Departed [facility] February 05February 06, 2016 Angel terry [facility] Medicine 2015 12:00am Nidia ovider Office Visit Departed [facility] January 10January 11, 2016 Sylvain corcoran [facility] Medicine 2015 12:00am Jovana ovider Office Visit Departed [facility] December 24December 24, 2013 Zonia bustillos [facility] Primary Care 2013 12:00am Conve rstrevon ovider Office Visit Registered [facility] Laboratory January 30 [facility] 2012 3:54pm Russel Discharged [facility] Physical January 30April 30, 2013 [facility] Therapy 2012 12:45pm 10:50am Russel Registered [facility] January 23 [facility] 2012 11:51am Duglas Discharged [facility] Physical August 14October 18, 2012 6:58am [facility] 2012 1:15pm Russel Registered [facility] January 09, Echo parsons, [facility] 2011 12:23pm Edwardo julian Registered [facility] July 13, Wendy burgess, [facility] 2011 10:14am Barbara Departed [facility] Chronic Disease January 08January 08, 2 010 [facility] 2009 2:20pm 11:59pm Barbara Departed [facility] Chronic Disease December 15December 15, 2009 [facility] 2009 9:45am 11:59pm Barbara Departed [facility] Chronic Disease December 08December 08, 2009 [facility] 2009 10:25am 11:59pm Barbara Departed [facility] Chronic Disease December 01December 01, 2009 [facility] 2009 9:20am 11:59pm Barbara Departed [facility] Chronic Disease November 10, 2009 November 10, 2009 [facility] 9:21am 11:59pm Barbara Discharged Ismael Giles Women August 13August 27, 2009 1:33pm PC P, of [facility] 2009 1:55pm Choice Departed [facility] Women May 28May 28, 2009 PCP , of [facility] 2009 2:00pm 11:59pm Choice Departed [facility] December 27December 27, 200 [facility] 2007 12:00am Edwardo julian Departed [facility] CONV Misc Comp April 24April 24, 1899 Med ent, Physician/Pr Addiction [facility] Pain location 1899 12:00am Con version ovider Office Visit Functional Status Query Response Date Recorded Comment Comprehension Ability Understands Concepts September 07, 2016 6:41am Speech Appropriate September 07, 2016 6:41am Clear Query Response Date Recorded Comment Ambulation Ability Independent June 23, 2016 10:22am Clothing Mgt Ability Independent June 23, 2016 10:22am Feeding Ability Independent June 23, 2016 10:22am Hygiene & Grooming Ability Independent June 23, 2016 10:22am Living Situation Alone March 10, 2019 11:13am Oral Hygiene Ability Independent June 23, 2016 10:22am Toileting Ability Independent June 23, 2016 10:22am Immunizations No known immunizations. Payers Payer Name Policy Type Covered Covered Relationship Subscriber Sub scriber Libertarian Libertarian Id Id LumiThera BRYCE [id number] Self/Same as BRYCE HILL [id number] OUT OF [facility] MEDICARE Medicare BRYCE [id number] Self/Same as BRYCE HILL [id number] OUT (DO NOT Primary LIZ Patient USE) MEDICARE Medicare BRYCE [id number] Self/Same as BRYCE HILL 3N [id number] PART A AND Primary LIZ Patient B COVERAGE SELF PAY Personal [employer] BRYCE [id number] Self/Same as BRYCE HILL [id number] HEALTH CARE LIZ Patient [employer] BRYCE [id number] Self/Same as BRYCE HILL [id number] HEALTH (DO LIZ Patient NOT USE) Plan of Care No Known Plan of Care Information Social History Query Response Date Recorded Comment Alcohol Use No March 10, 2019 11:34am Smoking Status Never smoker March 10, 2019 11:34am Substance Use Treatment No March 10, 2019 11:34a m Substance/Street Drug Use No March 10, 2019 11:3 4am substance use type does not use March 10, 2019 11:34am Query Response Start Date Stop Date Smoking Status Never smoker Vital Signs Vital Reading Result Reference Range Collection Date/ Time Height 5 ft 4.5 in March 10 11:13am Weight 86.183 kg March 10 11:13am Temperature 99.0 F 97.6 F-99.6 F March 10 11:13am Pulse 85 BPM 60-100 March 10 11:13am Respiration 18 RPM 12-24 March 10 11:13am Pulse Oximetry 98 % 95-100 March 10 11:13am Blood Pressure Systolic 128 100-140 March 10, 2019 11:13am Blood Pressure Diastolic 72 50-85 Novembe 2018 11:13am Body Mass Index 32.1 March 10 11:13am
--- OUTSIDE RECORDS SUMMARY | 2020-09-28 14:23 | XMS_ITS | Continuity of Care Document ---
:1945 Author Organization [facility] Address [address] [place] [address] Care Team Providers Name Role Phone Zoraida Primary Care Physician Unavailable Mila Fernandez Attending Physician Allergies, Adverse Reactions, Alerts Allergen [...] 201 8 Discontinued DAY 2017 Problem List Inactive/Resolved Problems Medical Problem Onset Date Status Acute hip pain Inactive Post concussion syndrome Inactive Acute UTI Inactive Procedures Procedure Date Status Lumbar Spine 4 vw Min February 27, [...] have a copy on file here at [facility]? Yes M 2016 8:06am Does patient have an Advanced Directive? Yes June 29, 2016 8:06am Pt has a Living Will? Yes June 29, 2016 8:06 am Pt has a Power of Project Geophysicist? Yes June 29 8:06am Chief Complaint and Reason for Visit Encounter Admit Date Chief Complaint Reason for Visit Departed March 26, 2018 Provider Based Billing Physician/Provider 8:52am Office Visit Hospital Discharge Instructions No known [...] Discharge/Departure Atte nding Date Date Provider Departed [facility][1] March 26March 26, 2018 Mack smith Physician/[facility] Orth[facility] 2018 8:52am 8:53am Jamel ovider Office Visit Registered [facility] Jamel Dep[facility]ed [facility][1] March 13March 13, 2018 Conchita sweet Physician/[facility] 2018 9:05am 9:06am Jamel ovider Office Visit Departed [facility] February 27February 27, 2018 Art kraft [facility] 2017 10:03am 10:04am Jamel Orthopedics Departed [facility][1] February 27February 27, 2018 Mack smith Physician/[facility] Orthoped[facility] 2018 9:24am 9:25am Jamel ovider Office Visit Departed [facility][1] February 22February 22, 2018 And letitia Physician/[facility] 2017 8:59am 9:00am Nyasia martinez [place] Office Visit Departed [facility][1] February 22February 22, [facility] 2018 8:55am 10:19am Albans Discharged [facility] February 20March 12, 2018 [facility] 9:30am 11:29am Barbara Departed [facility][1] February 08February 08, 2018 Cassandra hernandez Physician/[facility] Dermatology 2018 9:41am 9:42am Gianna maldonado ovider Office Visit Departed [facility][1] December 12December 12, 2017 Eugenie bryan Physician/[facility] 2018 11:08am 11:09am Kaitlynn piña ovider Office Visit Departed [facility] Path[facility] December 12, December 12[facility] 7:45am 7:46am Kristina Departed [facility] Emergency November 01, 2017 November 01, 2017 11:28a m [facility] Department 6:46am Departed [facility][1] October 03, 2017 October 03, 2017 10:4 3am Yoel Physician/[facility] 10:42am Yen Freedman Office Visit Departed [facility][1] October 03, 2017 October 03, 2017 11:4 5am [facility] 10:36am Jasmina Functional Status No known functional status. Immunizations No known immunizations. Payers Payer Name Policy Type Covered Covered Relationship Subscriber Sub scriber Alliance Party Alliance Party Id Id [employer] BRYCE [id number] Self/Same as BRYCE HILL [id number] [place] OF [place] Patient STATE MEDICARE Medicare BRYCE [id number] Self/Same as BRYCE HILL [id number] OUT (DO NOT Primary LIZ Patient USE) MEDICARE Medicare BRYCE [id number] Self/Same as BRYCE HILL 3N [id number] PART A AND Primary LIZ Patient B COVERAGE SELF PAY Personal Signdat BRYCE [id number] Self/Same as BRYCE HILL [id number] HEALTH CARE LIZ Patient Signdat BRYCE [id number] Self/Same as BRYCE HILL [id number] HEALTH (DO LIZ Patient NOT USE) Plan [...] 2018 9:10am Blood Pressure Diastolic 74 50-85 Novem2017 9:10am Body Mass Index n/a
--- OUTSIDE RECORDS SUMMARY | 2020-09-28 14:23 | XMS_ITS | Continuity of Care Document ---
:1945 Author Organization [facility] Address [address] [place] [address] Care Team Providers Name Role Phone Maggy Rojas Attending Physician [facility] Primary Care Physician Unavailable Allergies, Adverse Reactions, [...] 8:06 am Pt has a Power of Hog Dropper? Yes June 29 8:06am Chief Complaint and Reason for Visit Encounter Admit Date Chief Complaint Reason for Visit Departed Surgical Day June 29, 2016 8:00am COMBINED FORMS OF Care AGE-RELATED CATARACT, RIGHT EYE Hospital Discharge Instructions No known hospital discharge [...] Magnesium 400 mg ORAL EVERY June 23, 2016 Nitrofurantoin 1 cap ORAL Q12H PRN June 23, Activ e Monohyd/M-Cryst For Bladder 2017 Spasms Encounters Encounter Facility Location Admit/Visit Discharge/Departure Atte nding Date Date Provider Departed [facility] Surgical June 29, 2016 June 29, 2016 [facility] Abisai Zepeda Registered [facility] 2:52pm Norris kraft Functional Status No known functional status. Immunizations No known immunizations. Payers Payer Name Policy Type Covered Covered Relationship Subscriber Sub scriber Constitution Party Constitution Party Id Id MEDICARE Medicare BRYCE [id number] Self/Same as BRYCE HILL [id number] OUTPATIENT Primary LIZ Patient *DON'T USE MEDICARE PART Medicare BRYCE [id number] Self/Same as BRYCE HILL [id number] A AND B Primary LIZ Patient COVERAGE SELF PAY Personal Roovyn BRYCE [id number] Self/Same as BRYCE HILL [id number] CARE LIZ Patient Roovyn BRYCE [id number] Self/Same as BRYCE HILL [id number] (DO NOT USE) LIZ Patient Plan of Care No Known Plan of Care Information Social History Query Response Start Date Stop Date Smoking Status Never Smoker Vital Signs Vital Reading Result Reference Range Collection Date/ Time Height 5 ft 4 in June 23, 2016 10 :22am Weight 200 lb June 23, 2016 10 :22am Temperature 97.8 F 97.6 F-99.6 F June 29, 2016 9: 48am Pulse 53 BPM 60-100 June 29, 2016 9: 48am Respiration 20 RPM 12-24 June 29, 2016 9: 48am Pulse Oximetry n/a Blood Pressure Systolic 141 100-140 June 29, 2016 9:48am Blood Pressure Diastolic 87 50-85 June 9:48am Body Mass Index n/a
--- OUTSIDE RECORDS SUMMARY | 2020-09-28 14:23 | XMS_ITS | Continuity of Care Document ---
:1945 Author Organization [facility] Address [address] [place] [address] Care Team Providers Name Role Phone [facility] Primary Care Physician Unavailable Mila Fernandez Attending [...] have a copy on file here at [facility]? Yes Zonia 2016 8:06am Does patient have an Advanced Directive? Yes June 29, 2016 8:06am Pt has a Living Will? Yes June 29, 2016 8:06 am Pt has a Power of Charhouse Worker? Yes June 29 8:06am Chief Complaint and Reason for Visit Encounter Admit Date Chief Complaint Reason for Visit Discharged Recurring March 21, 2018 10:30am hip Hospital Discharge Instructions No known hospital discharge [...] Discharge/Departure Atte nding Date Date Provider Departed [facility] April 13April 13, 2018 Conchita sweet [facility] 2017 1:53pm 1:54pm Jamel ovider Office Visit Departed [facility] April 09April 09, 2018 Mack smith [facility] 2017 12:08pm 12:09pm [facility] Departed [facility] March 26March 26, 2018 Mack smith Phys[facility] 2017 8:52am 8:53am Jamel ovider Office Visit Discharged [facility] March 21April 25, 2018 [facility] 2017 10:30am 11:29am Jamel Departed [facility] March 13March 13, 2018 Conchita sweet Physician[facility] 2017 9:05am 9:06am Jamel ovider Office Visit Departed [facility] February 27February 27, 2018 Art kraft [facility] 2017 10:03am 10:04am Jamel Orthopedics Departed [facility] February 27February 27, 2018 Mack smith Physician[facility] 2017 9:24am 9:25am Jamel ovider Office Visit Departed [facility] February 22February 22, 2018 And letitia [facility] 2017 8:59am 9:00am Nyasia Freedman Office Visit Departed [facility] February 22February 22, [facility] 2017 8:55am 10:19am [place] Discharged [facility] February 20March 12, 2018 [facility] 2017 9:30am 11:29am Barbara Departed [facility] February 08February 08, 2018 Cassandra hernandez [facility] 2017 9:41am 9:42am Gianna maldonado ovider Office Visit Departed [facility] December 12December 12, 2017 Eugenie bryan Physician[facility] 2017 11:08am 11:09am Kaitlynn piña ovider Office Visit Departed [facility] Pathology December 12December 12, 2017 [facility] 7:45am 7:46am [facility] November 01, 2017 November 01, 2017 11:28a m [facility] Department 6:46am Departed [facility] October 03, 2017 October 03, 2017 10:4 3am Yoel Physician[facility] 10:42am Yen ovider [place] Office Visit Departed [facility] October 03, 2017 October 03, 2017 11:4 5am [facility] 10:36am [place] Functional Status No known functional status. Immunizations No known immunizations. Payers Payer Name Policy Type Covered Covered Relationship Subscriber Sub scriber Libertarian Libertarian Id Id Competitor BRYCE [id number] Self/Same as BRYCE HILL [id number] [place] OF [place] Patient STATE MEDICARE Medicare BRYCE [id number] Self/Same as BRYCE HILL [id number] OUT (DO NOT Primary LIZ Patient USE) MEDICARE Medicare BRYCE [id number] Self/Same as BRYCE HILL 3N [id number] PART A AND Primary LIZ Patient B COVERAGE SELF PAY Personal [employer] BRYCE [id number] Self/Same as BRYCE HILL [id number] HEALTH CARE LIZ Patient [employer] BRYCE [id number] Self/Same as BRYCE HILL [id number] HEALTH (DO LIZ Patient NOT USE) Plan [...] February 22, 2018 9:10am Respiration 16 RPM 12-February 22, 2018 9:10am Pulse Oximetry 98 % 95-100 February 22, 2018 9:10am Blood Pressure Systolic 128 100-140 February 22, 2018 9:10am Blood Pressure Diastolic 74 50-85 Novembe r 2017 9:10am Body Mass Index n/a
--- OUTSIDE RECORDS SUMMARY | 2020-09-28 14:23 | XMS_ITS | Continuity of Care Document ---
:[address] [facility] Address [address] [place] [address] Care Team Providers Name Role Phone [place] Primary Care Physician Unavailable Rodolfo Attending Physician Allergies, Adverse Reactions, Alerts Allergen Type Severity Reaction Last Updated Verified Status simvastatin Adverse Reaction Moderate March 10 Active 2019 Sulfa (Sulfonamide Adverse Reaction Unknown March 10 Active Antibiotics) 2019 Medications Active Medications Medication Dose Units Route Sig Qty Days Start Date Status In structions Atorvastatin 40 MG ORAL BEDTIME June 232016 Omeprazole 40 MG ORAL EVERY June 23, MORNING 2016 Calcium 500 MG ORAL TWICE A June 23 Carbonate 2016 [Calcium 500] Metformin 1000 MG ORAL TWICE A June 232016 Ibuprofen 600 MG ORAL THREE June 23 [Motrin Ib] TIMES A 2016 DAY PRN For Pain Metoprolol November 012017 Lisinopril February Fluticasone 1 SPR NASAL Q12H 9.9 November Active adm inister into Propionate 2018 each nostril Benzonatate 100 MG ORAL every day 14 February Active at bedtime 2018 PRN For cough Discontinued Medications Medication Dose Units Route Sig Qty Days Start Discontinued Status I nstructions Date Date Metformin 500 MG ORAL EVERY JuneSeptember 02, 2016 Disconti MORNI 2016 nued NG Aspirin 81 MG ORAL BEDTI JuneSeptember 02, 2016 Disconti ME 2016 nued Lisinopril 40 MG ORAL EVERY JuneNovember 01, 2017 Discont i MORNI 2016 nued NG Multivitamin 1 TAB-CA ORAL EVERY JuneMarch 10, Disco nti P MORNI 2016 nued NG Atenolol 50 MG ORAL EVERY JuneMarch 10, Disconti MORNI 2016 2019 nued NG Magnesium 400 MG ORAL EVERY JuneMarch 10, Disconti EVENI 2016 nued NG Nitrofurantoi 1 CAP ORAL Q12H JuneNovember 01, 2017 Disc onti n PRN 2016 nued Monohyd/M-Cry For st [Macrobid] Bladd er Spasm s Cephalexin 500 MG ORAL TWICE 14 SeptemberNovember 01, 2017 Discont i A DAY 12, nued 2017 Prednisone 10 MG ORAL DAILY 5 5 March 15, Discon ti r 2018 nued 2018 Guaifenesin 400 MG ORAL .q8hr 15 5 March 15, Disco nti r 2018 nued 2018 Problem List Active Problems Medical Problem Onset [...] Onset Date Status Acute hip pain Inactive Acute Eustachian salpingitis, bilateral Inactive Acute maxillary sinusitis Inactive Post concussion syndrome Inactive Acute UTI Inactive Impacted cerumen of left ear Inactive Procedures No known history of procedures. Relevant Diagnostic Tests and/or Laboratory Data No known relevant diagnostic tests, laboratory data, and/or discharge summary. Chief Complaint and Reason for Visit Encounter Admit Date Chief Complaint Reason for Visit Departed March 10, 2019 Provider Based Billing Physician/Provider 11:09am Office Visit Hospital Discharge Instructions No known hospital discharge instructions. Hospital Discharge Medications Medication Dose Units Route Sig Qty Days Order Status Instru ctions Date Atorvastatin 40 MG ORAL BEDTIME June 232016 Metformin 500 MG ORAL EVERY June 23, Discontinued MORNING 2016 Omeprazole 40 MG ORAL EVERY June 23, Active MORNING 2016 Aspirin 81 MG ORAL BEDTIME June 23, 2016 Calcium 500 MG ORAL TWICE A June 23, Active Carbonate DAY 2016 Metformin 1000 MG [...] MG ORAL EVERY June 23, Discontinued EVENING 2016 Nitrofurantoin 1 CAP ORAL Q12H PRN March 2, Disco ntinued Monohyd/M-Cryst For 2017 Bladder Spasms Cephalexin 500 MG ORAL TWICE A 14 October 03, Discontinu ed DAY 2017 Metoprolol November 01, Active Succinate 2018 Lisinopril February Active 2018 Prednisone 10 MG ORAL DAILY 5 5 February Discontinue d 2018 Fluticasone 1 SPR NASAL Q12H 9.9 November Active adm inister Propionate 2018 into each nostril Guaifenesin 400 MG ORAL .q8hr 15 5 February Discontinu ed 2018 Benzonatate 100 MG ORAL every 14 February Active day at 2018 bedtime PRN For cough Encounters Encounter Facility Location Admit/Visit Discharge/Departure Atte nding Date Date Provider Departed [facility] March 10, March 10, 2019 S[facility]le [facility] 2018 11:09am 11:10am Abbey Freedman Office Visit Departed [facility] March 10March 10, [facility] 2018 11:07am 12:00pm Albadriano Departed [facility] August 21August 21, 2018 8:52am [facility] 2018 8:51am Juvencio morley Office Visit Departed [facility] August 21August 21, 2018 Rena [facility] 2018 12:00am Conv erstrevon morley ab Office Visit Departed [facility] August 20August 20, 2018 Rena [facility]erm[facility] 2018 12:00am Convers trevon morley Office Visit Functional Status Query Response Date Recorded Comment Living Situation Alone March 10, 2019 11:13am Immunizations No known immunizations. Payers Payer Name Policy Type Covered Covered Relationship Subscriber Sub scriber Libertarian Libertarian Id Id [facility] [employer] BRYCE [id number] Self/Same as BRYCE HILL [id number] [place] OF [place] Patient STATE MEDICARE Medicare BRYCE [id number] Self/Same as BRYCE HILL [id number] OUT (DO NOT Primary [place] Patient USE) MEDICARE Medicare BRYCE [id number] Self/Same as BRYCE HILL 3N [id number] PART A AND Primary LIZ Patient B COVERAGE SELF PAY Personal [employer] BRYCE [id number] Self/Same as BRYCE HILL [id number] HEALTH CARE LIZ Patient [employer] BRYCE [id number] Self/Same as BRYCE HILL [id number] [facility] (DO HILL Patient NOT USE) Plan of [...] 2019 11:13am Blood Pressure Diastolic 72 50-85 [facility] 11:13am Body Mass Index 32.1 March 10 11:13am
--- OUTSIDE RECORDS SUMMARY | 2020-09-28 14:23 | XMS_ITS | Continuity of Care Document ---
:1945 Author Organization [facility] Address [address] [place] [address] Care Team Providers Name Role Phone Zoraida Primary Care Physician Unavailable Maggy Rojas Attending Physician Allergies, Adverse Reactions, Alerts Allergen Type Severity Reaction Last Updated Verified Status simvastatin Allergy leg cramps September 07, 2016 Y Acti ve Sulfa (Sulfonamide Allergy unknown September 07, 2016 Y Active Antibiotics) Medications Active Medications Medication Dose Units Route Sig Start Date Status Atorvastatin 40 mg ORAL BEDTIME June 23, 2016 Act nguyễn Omeprazole 40 mg ORAL EVERY MORNING June 23, 2016 A ctive Calcium Carbonate [Calcium 500 mg ORAL TWICE A DAY M 2016 Active 500] Metformin 1000 mg ORAL TWICE A DAY June 23, 2016 Acti ve Ibuprofen [Motrin Ib] 600 mg ORAL THREE [...] 7 Active Monohyd/M-Cryst [Macrobid] Bladder Spasm s Discontinued Medications Medication Dose Units Route Sig Start Date Discontinued Date Status Metformin 500 mg ORAL EVERY MORNING June 23September 02, 2016 Di scontinued 2016 Aspirin 81 mg ORAL BEDTIME June 23September 02, 2016 Discontinu ed 2016 Problem List No problem information available. Procedures Procedure Date Status Provider(s) Cataract Extraction with IOL - MAC & June 29, 2016 completed Abisai Rojas Topical (Right) CATARACT SURG W/IOL 1 STAGE September 07, 2016 active Reason for Referral Reason for Referral Date Referral Provider Office Contact Locat ion was Provided Relevant Diagnostic Tests and/or Laboratory Data No known relevant diagnostic tests, laboratory data, and/or discharge summary. Advance Directives Advance Directive Response Recorded Date/Time Do we have a copy on file here at [facility]? Yes 2016 8:06am Does patient have an Advanced Directive? Yes June 29, 2016 8:06am Pt has a Living Will? Yes June 29, 2016 8:06 am Pt has a Power of Warehouse Forklift Operator? Yes June 29 8:06am Chief Complaint and Reason for Visit Encounter Admit Date Chief Complaint Reason for Visit Departed October 13, 2016 8:59am Provider Based Billing Physician/Provider Office Visit Hospital Discharge Instructions No known hospital discharge instructions. Hospital Discharge Medications Medication Dose Units Route Sig Qty Days Order Status Instru ctions Date Atorvastatin 40 mg ORAL BEDTIME June Active 2016 Metformin 500 mg ORAL EVERY June Discontinued MORNING 2016 Omeprazole 40 mg ORAL EVERY June Active MORNING 2016 Aspirin 81 mg ORAL BEDTIME June Calcium 500 mg ORAL TWICE A June Active Carbonate DAY 2016 Metformin 1000 mg ORAL TWICE A June Active DAY 2016 Ibuprofen 600 mg ORAL THREE June Active TIMES A 2016 DAY PRN For Pain Lisinopril 40 mg ORAL EVERY June Active MORNING 2016 Multivitamin 1 tab-cap ORAL EVERY June Active MORNING 2016 Atenolol 50 mg ORAL EVERY June Active MORNING 2016 Magnesium 400 mg ORAL EVERY June Active EVENING 2016 Nitrofurantoin 1 cap ORAL Q12H PRN June Monohyd/M-Cryst For 2016 Bladder Spasms Encounters Encounter Facility Location Admit/Visit Discharge/Departure Atte nding Date Date Provider Departed [facility] October 13, 2016 October 13, 2016 9:00 am Physician [facility] 8:59am Ricardo martinez Office Visit Departed [facility] September 08, 2016 September 08, 2016 8:06am Crystal [facility] 8:05am Ricardo martinez Office Visit Departed [facility] September 07, 2016 September 07, 2016 8:18am Myla miller Surgical Day [facility] Services 6:28am Abisai Zepeda Departed [facility] July 07July 07, 2016 9:13am Crystal [facility] 2017 9:12am Albert martinez Office Visit Departed [facility] June 30, 2016 June 30, 2016 8:14 am Crystal [facility] 8:13am Ricardo martinez Office Visit Departed [facility] Surgical June 29, 2016 June 29, 2016 9:49am [facility] 8:00am Abisai Zepeda Registered [facility] May 24, [facility] Ophthalmology 2016 2:52pm Norris kraft Registered [facility] Life Style [facility] March 05, Mirela he, Critical access hospital 2016 8:00am Barbara Registered [facility] February 26, Wendy burgess, [facility] hospital 2015 8:00am Barbara Registered [facility] Barbara Reg[facility] February 05[facility] 8:[facility]am Barbara Functional Status No known functional status. Immunizations No known immunizations. Payers Payer Name Policy Type Covered Covered Relationship Subscriber Sub scriber Democrat Democrat Id Id MEDICARE Medicare BRYCE [id number] Self/Same as BRYCE HILL [id number] OUT (DO NOT Primary LIZ Patient USE) MEDICARE Medicare BRYCE [id number] Self/Same as BRYCE HILL [id number] PART A AND Primary LIZ Patient B COVERAGE SELF PAY Personal kaufDA BRYCE [id number] Self/Same as BRYCE HILL [id number] HEALTH CARE LIZ Patient kaufDA BRYCE [id number] Self/Same as BRYCE HILL [id number] HEALTH (DO LIZ Patient NOT USE) Plan of Care No Known Plan of Care Information Social History Query Response Start Date Stop Date Smoking Status Never Smoker Vital Signs Vital Reading Result Reference Range Collection Date/ Time Height 5 ft 3.5 in September 07, 2016 6:4 1am Weight 88.451 kg September 07, 2016 6:4 1am Temperature 97.8 F 97.6 F-99.6 F September 07, 2016 8:1 4am Pulse 63 BPM 60-100 September 07, 2016 8:1 4am Respiration 18 RPM 12-24 September 07, 2016 8:1 4am Pulse Oximetry 96 % 95-100 September 07, 2016 8:1 4am Blood Pressure Systolic 148 100-140 September 07, 2016 8:14am Blood Pressure Diastolic 91 50-85 September 07, 2016 8:14am Body Mass Index 34.0 September 07, 2016 6:4 1am
--- OUTSIDE RECORDS SUMMARY | 2020-09-28 14:24 | XMS_ITS | Continuity of Care Document ---
:1945 Author Organization Address [address] [place] [address] Care Team Providers Name Role Phone [facility] Primary Care Physician Unavailable Dianelys Borden Attending [...] have a copy on file here at [facility]? Yes 2016 8:06am Does patient have an Advanced Directive? Yes June 29, 2016 8:06am Pt has a Living Will? Yes June 29, 2016 8:06 am Pt has a Power of [employer]? Yes June 29 8:06am Chief Complaint and Reason for Visit Encounter Admit Date Chief Complaint Reason for Visit Departed December 12, 2017 Provider Based Billing Physician/Provider 11:08am Office Visit Hospital Discharge Instructions No known [...] Discharge/Departure Atte nding Date Date Provider Departed [facility] February 22, February 22, 2018 And letitia [facility] 2017 8:59am 9:00am Nyasia Freedman Office Visit Departed [facility] February 22, February 22, [facility] 2017 8:55am 10:19am Jasmina Registered [facility] 9:30am Barbara Departed [facility] February 08, February 08, 2018 Cassandra hernandez Physician[facility] 2018 9:41am 9:42am Gianna maldonado ovider Office Visit Departed [facility] December 12, December 12, 2017 Eugenie bryan Physician/[facility] 2018 11:08am 11:09am Kaitlynn piña ovider Office Visit Departed [facility] Pathology December 12, December 12, [facility] 7:[facility]am 7:46am Kristina Departed [facility] Emergency November 01, 2017 November 01, 2017 11:28a m [facility] Department 6:46am Departed [facility] October 03, 2017 October 03, 2017 10:4 3am Yoel Physician/[facility] 10:42am Yen Freedman Office Visit Departed [facility] October 03, 2017 October 03, 2017 11:4 5am [facility] 10:36am Jasmina Functional Status No known functional status. Immunizations No known immunizations. Payers Payer Name Policy Type Covered Covered Relationship Subscriber Sub scriber Republican Republican Id Id MEDICARE Medicare BRYCE [id number] Self/Same as BRYCE HILL [id number] OUT (DO NOT Primary LIZ Patient USE) MEDICARE Medicare BRYCE [id number] Self/Same as BRYCE HILL 3N [id number] PART A AND Primary LIZ Patient B COVERAGE SELF PAY Personal [employer] BRYCE [id number] Self/Same as BRYCE HILL [id number] HEALTH CARE LIZ Patient [employer] BRYCE [id number] Self/Same as BRYCE HILL [id number] HEALTH (DO LIZ Patient NOT USE) Plan [...]
--- OUTSIDE RECORDS SUMMARY | 2020-09-28 14:24 | XMS_ITS | Continuity of Care Document ---
:1945 Author Organization [facility] Address [address] [place] [address] Care Team Providers Name Role Phone Out of Town Primary Care Physician Unavailable Benedict Otto Attending Physician Allergies, Adverse Reactions, Alerts Allergen [...] [id number] Ibuprofen 600 MG ORAL THREE June 23, [Motrin Ib] TIMES A 2016 DAY PRN For Pain Metoprolol November 01 Succinate 2017 Lisinopril February Fluticasone 1 SPR NASAL Q12H [...] 2017 Prednisone 10 MG ORAL DAILY 5 March 15, Discon ti r 2018 nued 2019 Guaifenesin 400 MG ORAL .q8hr 15 March 15, Disco nti r 2018 nued 2019 Problem List Active Problems Medical Problem Onset Date Status Combined forms of age-related cataract May 24, 2016 Neoplasm of uncertain behavior of skin December 12, 2017 Type 2 diabetes mellitus May 24, 2016 Trochanteric bursitis February 27, 2018 Neurogenic claudication due to lumbar spinal stenosis Januar 2018 Thoracic and lumbosacral neuritis May 10, [...] Date Chief Complaint Reason for Visit Departed Clinical October 24, 2019 8:49am COVID19 CURBSIDE TEST Hospital Discharge Instructions No known hospital discharge [...] 1000 MG ORAL TWICE A June 23, 2016 Ibuprofen 600 MG ORAL THREE June [...] 03, Discontinu ed DAY 2017 Metoprolol November 01 Active Succinate 2018 Lisinopril February Active 2018 Prednisone 10 MG ORAL DAILY 5 5 November Discontinue d 2018 Fluticasone 1 SPR NASAL Q12H 9.9 November Active adm inister Propionate 2018 into each nostril Guaifenesin 400 MG ORAL .q8hr 15 5 February Discontinu ed 2018 Benzonatate 100 MG ORAL every 14 February Active day at 2018 bedtime PRN For cough Encounters Encounter Facility Location Admit/Visit Discharge/Departure Atte nding Date Date Provider Departed [facility] October 24, 2019 October 24, 2019 8:50am Sima nash, [facility] 8:49am Russel Departed [facility] March 10March 10, 2019 Siva valle, [facility] 2018 11:09am 11:10am Abbey Freedman Office Visit Departed [facility] March 10March 10, [facility] 2018 11:07am 12:00pm Jasmina Functional Status Query Response Date Recorded Comment Living Situation Alone March 10, 2019 11:13am Immunizations No known immunizations. Payers Payer Name Policy Type Covered Covered Relationship Subscriber Sub scriber Constitution Party Constitution Party Id Id [facility] [employer] BRYCE [id number] Self/Same as BRYCE HILL [id number] OUT OF [place] Patient STATE MEDICARE Medicare BRYCE [id number] Self/Same as BRYCE HILL [id number] OUT (DO NOT Primary LIZ Patient USE) MEDICARE Medicare BRYCE [id number] Self/Same as BRYCE HILL 3N [id number] PART A AND Primary LIZ Patient B COVERAGE SELF PAY Personal [email or web address] BRYCE [id number] Self/Same as BRYCE HILL [id number] HEALTH CARE LIZ Patient [email or web address] BRYCE [id number] Self/Same as BRYCE HILL [id number] HEALTH (DO LIZ Patient NOT USE) Plan [...] 2019 11:13am Blood Pressure Diastolic 72 50-85 [facility] 2018 11:13am Body Mass Index 32.1 March 10 11:13am
--- OUTSIDE RECORDS SUMMARY | 2020-09-28 14:24 | XMS_ITS | Continuity of Care Document ---
:1945 Author Organization [facility] Address [address] [place] [address] Care Team Providers Name Role Phone Zoraida Primary Care Physician Unavailable Yoel Attending Physician Unavailable Allergies, Adverse Reactions, Alerts [...] 2016 Active PRN For Pain Lisinopril 40 MG ORAL EVERY MORNING June 23, 2016 A ctive Multivitamin 1 TAB-CAP ORAL EVERY MORNING June 23, 2016 Active Atenolol 50 MG ORAL EVERY MORNING June 23, 2016 Act nguyễn Magnesium 400 MG ORAL EVERY EVENING June 23, 2016 Ac tive Nitrofurantoin 1 CAP ORAL Q12H PRN For June 23 7 Active Monohyd/M-Cryst Bladder Spasms [Macrobid] Cephalexin 500 MG ORAL TWICE A DAY 14 October 03, 2017 Act nguyễn Discontinued Medications Medication Dose Units Route Sig Qty Start Date Discontinu ed Date Status Metformin 500 MG ORAL EVERY MORNING June 23September 02, 2016 Discontinued 2016 Aspirin 81 MG ORAL BEDTIME June 23September 02, 2016 Di scontinued 2016 Problem List Active Problems Medical Problem Onset Date Status Acute UTI Active Procedures Procedure Date Status Urine Culture October 03, 2017 active Relevant Diagnostic Tests and/or Laboratory Data No known relevant diagnostic tests, laboratory data, and/or discharge summary. Advance Directives Advance Directive Response Recorded Date/Time Do we have a copy [place] [facility] Yes M donn 2016 8:06am Does patient have an Advanced Directive? Yes June 29, 2016 8:06am Pt has a Living Will? Yes June 29, 2016 8:06 am Pt has a Power of Acting Section Chief? Yes June 29 8:06am Chief Complaint and Reason for Visit Encounter Admit Date Chief Complaint Reason for Visit Departed October 03, 2017 Provider Based Billing Physician/Provider Office 10:42am Visit Hospital Discharge Instructions No known hospital discharge instructions. Hospital Discharge Medications Medication Dose Units Route Sig Qty Days Order Status Instru ctions Date Atorvastatin 40 MG ORAL BEDTIME June Metformin 500 MG ORAL EVERY June Discontinued MORNING 2016 Omeprazole 40 MG ORAL EVERY June Active MORNING 2016 Aspirin 81 MG ORAL BEDTIME June Discontinued 2016 Calcium 500 MG ORAL TWICE A June Active Carbonate DAY 2016 Metformin 1000 MG ORAL TWICE A June Active DAY 2016 Ibuprofen 600 MG ORAL THREE June Active TIMES A 2016 DAY PRN For Pain Lisinopril 40 MG ORAL EVERY June Active MORNING 2016 Multivitamin 1 TAB-CAP ORAL EVERY June Active MORNING 2016 Atenolol 50 MG ORAL EVERY June Active MORNING 2016 Magnesium 400 MG ORAL EVERY June Active EVENING 2016 Nitrofurantoin 1 CAP ORAL Q12H PRN June Monohyd/M-Cryst For 2016 Bladder Spasms Cephalexin 500 MG ORAL TWICE A 14 September Encounters Encounter Facility Location Admit/Visit Discharge/Departure Atte nding Date Date Provider Departed [facility] October 03, 2017 October 03, 2017 10:4 3am [facility] 10:42am Yen Freedman Office Visit Departed [facility] October 03, 2017 October 03, 2017 11:4 5am [facility] 10:36am Jasmina Departed [facility] October 13, 2016 October 13, 2016 9:00 am Crystal [facility] 8:59am Norris morley Office Visit Functional Status No known functional status. Immunizations No known immunizations. Payers Payer Name Policy Type Covered Covered Relationship Subscriber Sub scriber Green Party Green Party Id Id MEDICARE Medicare BRYCE [id number] Self/Same as BRYCE HILL 009 [id number] OUT (DO NOT Primary LIZ Patient USE) MEDICARE Medicare BRYCE [id number] Self/Same as BRYCE HILL [id number] PART A AND Primary LIZ Patient B COVERAGE SELF PAY Personal [place] BRYCE [id number] Self/Same as BRYCE HILL [id number] HEALTH CARE LIZ Patient [place] BRYCE [id number] Self/Same as BRYCE HILL [id number] HEALTH (DO LIZ Patient NOT USE) Plan of Care No Known Plan of Care Information Social History Query Response Start Date Stop Date Smoking Status Never smoker Vital Signs Vital Reading Result Reference Range Collection Date/ Time Height n/a Weight 88.451 kg October 03, 2017 11 :04am Temperature 101.7 F 97.6 F-99.6 F October 03, 2017 11 :04am Pulse 68 BPM 60-100 October 03, 2017 11 :04am Respiration 15 RPM 12-October 03, 2017 11 :04am Pulse Oximetry 96 % 95-100 October 03, 2017 11 :04am Blood Pressure Systolic 110 100-140 October 03, 2017 11:04am Blood Pressure Diastolic 70 50-85 September 11:04am Body Mass Index n/a
--- OUTSIDE RECORDS SUMMARY | 2020-09-28 14:24 | XMS_ITS | Continuity of Care Document ---
:1945 Author Organization [facility] Address [address] [place] [address] Care Team Providers Name Role Phone [facility] Primary [facility] Physician Unavailable Juanjo ann Attending Physician Unavailable Allergies, Adverse Reactions, Alerts [...] have a copy on file here at [facility]? Yes [facility] 2016 8:06am Does patient have an Advanced Directive? Yes June 29, 2016 8:06am Pt has a Living Will? 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 Yes June 29 7 8:06am Chief Complaint and Reason for Visit Encounter Admit Date Chief Complaint Reason for Visit Discharged Recurring February 20, 2018 9:30am [facility] Discharge Instructions No known hospital discharge [...] A 05 October Discontinued DAY 2017 Metoprolol Vannessa Active Succinate 2017 Encounters Encounter Facility Location Admit/Visit Discharge/Departure Atte nding Date Date Provider Registered [facility] Jamel Departed [facility] February 27February 27, 2018 Art kraft [facility] 2017 10:03am 10:04am Jamel Orthopedics Departed [facility] February 27February 27, 2018 Mack smith Physician/[facility] Orthopedics 2017 9:24am 9:25am Jamel ovider Office Visit Departed [facility] February 22February 22, [facility] 2017 8:59am 9:00am Nyasia Freedman Office Visit Departed [facility] February 22February 22, [facility] 2017 8:55am 10:19am Albans Discharged [facility] February 20March 12, [facility] 9:30am 11:29am Barbara Departed [facility] February 08February 08, 2018 Cassandra hernandez Physician/[facility] Center Dermatology 2018 9:41am 9:42am Gianna maldonado ovider Office Visit Departed [facility] December 12December 12, 2017 Eugenie bryan Physician/[facility] Derm[facility] 2018 11:08am 11:09am Kaitlynn piña ovider Office Visit Departed [facility] Pathology December 12December 12, [facility] 2017 7:45am 7:46am Kristina Departed [facility] Emergency November 01, 2017 November 01, 2017 11:28a m [facility] Department 6:46am Departed [facility] October 03, 2017 October 03, 2017 10:4 3am Yoel, Physician[facility] 10:42am Yen Freedman Office Visit Departed [facility] October 03, 2017 October 03, 2017 11:4 5am [facility] 10:36am Albadriano Functional Status No known functional status. Immunizations No known immunizations. Payers Payer Name Policy Type Covered Covered Relationship Subscriber Sub scriber Constitution Party Constitution Party Id Id MEDICARE Medicare BRYCE [id number] Self/Same as BRYCE HILL [id number] OUT (DO NOT Primary LIZ Patient USE) MEDICARE Medicare BRYCE [id number] Self/Same as BRYCE HILL 3N [id number] PART A AND Primary LIZ Patient B COVERAGE SELF PAY Personal [employer] BRYCE [id number] Self/Same as BRYCE HILL [id number] HEALTH CARE LIZ Patient [employer] BRYCE [id number] Self/Same as BRYCE HILL [id number] [facility] (DO HILL Patient NOT USE) Plan [...]
--- OUTSIDE RECORDS SUMMARY | 2020-09-28 14:24 | XMS_ITS | Continuity of Care Document ---
:1945 Author Organization [facility] Address [address] [place] [address] Care Team Providers Name Role Phone Zoraida Primary Care Physician Jess Millard Attending Physician Allergies, Adverse Reactions, Alerts Allergen Type Severity Reaction Last Updated Verified Status simvastatin Adverse Reaction Moderate April 28, 2020 Y Active Sulfa (Sulfonamide Adverse Reaction Unknown April 28 Y Active Antibiotics) Medications Active Medications Medication Dose Units Route Sig Qty Days Start Date Status In structions Atorvastatin 40 MG ORAL BEDTIME June 232016 Omeprazole 40 MG ORAL EVERY June 23, Active MORNING 2016 Calcium 500 MG ORAL TWICE A June 23, Active Carbonate DAY 2016 [Calcium 500] Metformin 1000 MG ORAL TWICE A June 23, Active DAY 2016 Ibuprofen 600 MG ORAL THREE June 23, Active [Motrin Ib] TIMES A 2016 DAY PRN For Pain Metoprolol November 01 Succinate 2017 Lisinopril February Fluticasone 1 SPR NASAL Q12H 9.9 February Active adm inister into Propionate 2018 each nostril Discontinued Medications Medication Dose Units Route Sig [...] ORAL EVERY JuneMarch 10, Disconti MORNI 2016 nued NG Magnesium 400 MG ORAL EVERY JuneMarch 10, Disconti EVENI 2016 nued NG Nitrofurantoi 1 CAP ORAL Q12H JuneNovember 01, 2017 Disc onti n PRN , 2016 nued Monohyd/M-Cry For st [Macrobid] Bladd er Spasm s Cephalexin 500 MG ORAL TWICE 14 SeptemberNovember 01, 2017 Discont i A DAY 12, nued 2018 Prednisone 10 MG ORAL DAILY 5 5 NovemMarch 15, Discon ti r 2018 nued 2019 Guaifenesin 400 MG ORAL .q8hr 15 5 March 15, Disco nti r 2018 nued 2019 Benzonatate 100 MG ORAL every 14 Novembe April 28, Discont i day r 2020 nued at 2019 bedti me PRN For cough Problem List Active Problems Medical Problem Onset [...] Inactive Impacted cerumen of left ear Inactive Laceration of finger of left hand Inacti ve Procedures No known history of procedures. Relevant Diagnostic Tests and/or Laboratory Data Laboratory Results Test Date/Time Result Interp. Ref. Range Result Comment Hemoglobin A1c March 18, 6.09 % High <5.7%: N ormal Percent 2019 10:20am 5.7%-6.4%: P rediabetes >=6.5%: Diagno stic for diabetes Goals for Glyc emic Control in Diabetes (ADA 2018) <7.0%: A1c tar get for non adults with diabetes. More or less stringent glycemic goals may be appropriate for individual patients. <7.5%: A1c tar get for children and adolescents with type I diabetes. A lower goal is reasonable if it can be achieved without excessive hypoglycemia. Estimated Average March 18, 128 mg/dL Glucose mg/dL 2019 10:20am Coronavirus 2018October 24, 2019 Negative Negati ve results do not preclude 2019- nCoV infection and PCR Interp 10:00am should not be used as the sole basis for treatment or other patient manage ment decisions. Negative results must be combined with clinical observations, patient history, and epidemiologica l information. This test was developed and its performance characteristics determined by [facility]. It has not been cleared or approved by the US Food an d Drug Administration. FDA does not require this test to g o through premarket FDA review. This test is used for clini cecil purposes. It should not be regarded as investigationa l or for research. This laboratory is certified unde r the Clinical Laboratory Improvement Amendments (CL IA) as qualified to perform high complexity clinical labor atory testing. This test is b ased on the [facility] COVID-19 Emergency Use Authorization (EUA) assay, with minor modification as defined by the FDA Performed on t he [employer] [facility] Fast. Reference Lab October 24, 2019 Ab 7500 uvc Is Pat ient Admitted or Awaiting Admission?:no Test Performing 10:00am lab COVID [facility]: WAREHOUSE ORDER PICKER Site Test performed [place] [address] Hospital Discharge Instructions No known hospital discharge [...] ORAL THREE June 23, Active TIMES A 2017 DAY PRN For Pain Lisinopril 40 MG [...] November 01, Active Succinate 2017 Lisinopril February Active 2018 Prednisone 10 MG ORAL DAILY 5 5 February Discontinue d 2018 Fluticasone 1 SPR NASAL Q12H 9.9 February Active adm inister Propionate 2018 into each nostril Guaifenesin 400 MG ORAL .q8hr 15 5 November Discontinu ed 2018 Benzonatate 100 MG ORAL every 14 November Discontinu ed day at 2018 bedtime PRN For cough Encounters Encounter Facility Location Admit/Visit Discharge/Departure Atte nding Date Date Provider Departed [facility] April 28, April 28, 2020 Britni kyle, [facility] 2020 12:00pm 1:00pm Woodrow Freedman Office Visit Departed [facility] April 28, April 28, [facility] 2020 10:07am 11:05[facility], March 18[facility] 10:01am [facility] October 24, 2019 October 24, 2019 8:50am [facility] Russel Functional Status No known functional status. Immunizations Immunization Name Date Given Type Tdap April 28, 2020 Administered Plan of Care No Known Plan of Care Information Social History Query Response Date Recorded Comment Alcohol Use No April 28, 2020 10:43am Smoking Status Never smoker April 28, 2020 10:43am Substance Use Treatment No April 28, 2020 10:43am Substance/Street Drug Use No April 28, 2020 10:43a m substance use type does not use April 28, 2020 10:43am Query Response Start Date Stop Date Smoking Status Never smoker Vital Signs Vital Reading Result Reference Range Collection Date/ Time Height 5 ft 5 in April 28, 2020 10:15am Weight 86.183 kg April 28, 2020 10:15am Temperature 97.9 F 97.6 F-99.6 F April 28, 2020 10:15am Pulse 67 BPM 60-100 April 28, 2020 10:15am Respiration 12 RPM 12-24 April 28, 2020 10:15am Pulse Oximetry 97 % 95-100 April 28, 2020 10:15am Blood Pressure Systolic 120 100-140 April 28, 2020 10:15am Blood Pressure Diastolic 84 50-85 April 28, 2020 10:15am Body Mass Index 31.6 April 28, 2020 10:15am
--- OUTSIDE RECORDS SUMMARY | 2020-09-28 14:24 | XMS_ITS | Continuity of Care Document ---
:1945 Author Organization [facility] Address [address] [place] [address] Care Team Providers Name Role Phone Zoraida [...] Lisinopril 40 MG ORAL EVERY June 23November 01, 201 8 Discontinued MORNING 2016 Nitrofurantoin 1 [...] [facility] Yes 2016 8:06am Does patient have an Advanced Directive? Yes June 29, 2016 8:06am Pt has a Living Will? Yes June 29, 2016 8:06 am Pt has a Power of Warranty Manager? Yes June 29 7 8:06am Chief Complaint and Reason for Visit Encounter Admit Date Chief Complaint Reason for Visit Departed Clinical February 27, 2018 10:03am xr Hospital Discharge Instructions No known hospital discharge [...] A 14 September Discontinued DAY 2017 Metoprolol Vannessa Active Succinate 2017 Encounters Encounter Facility Location Admit/Visit Discharge/Departure Atte nding Date Date Provider Departed [facility] February 27, February 27, 2018 Art kraft [facility] 2017 10:03am 10:04am Jamel Orthopedics Departed [facility] February 27February 27, 2018 Mack smith Phys[facility] 2017 9:24am 9:25am Jamel ovider Office Visit Departed [facility] February 22February 22, 2018 And letitia [facility] 2017 8:59am 9:00am Nyasia Freedman Office Visit Departed [facility] February 22February 22, [facility] 2017 8:55am 10:19am Jasmina Registered [facility] February 20, [facility] Building 2018 9:30am Barbara Departed [facility] February 08February 08, 2018 Cassandra hernandez Physician[facility] 2018 9:41am 9:42am Gianna maldonado ovider Office Visit Departed [facility] December 12December 12, 2017 Eugenie bryan Physician[facility] 2018 11:08am 11:09am Kaitlynn piña ovidsanjuana Office Visit Departed [facility] Pathology [facility] 12December 12, [facility] 7:45am 7:46am Kristina Departed [facility] Emergency November 01, 2017 November 01, 2017 11:28a m [facility] Department 6:46am Departed [facility] October 03, 2017 October 03, 2017 10:4 3am Yoel, [facility] 10:42am Yen Freedman Office Visit Departed [facility] October 03, 2017 October 03, 2017 11:4 5am [facility] 10:36am Jasmina Functional Status No known functional status. Immunizations No known immunizations. Payers Payer Name Policy Type Covered Covered Relationship Subscriber Sub scriber Green Party Green Party Id Id MEDICARE Medicare BRYCE [id number] Self/Same as BRYCE HILL [id number] OUT (DO NOT Primary LZI Patient USE) MEDICARE Medicare BRYCE [id number] Self/Same as BRYCE HILL 3N [id number] PART A AND Primary LIZ Patient B COVERAGE SELF PAY Personal [employer] BRYCE [id number] Self/Same as BRYCE HILL [id number] HEALTH CARE LIZ Patient Pythian BRYCE [id number] Self/Same as BRYCE HILL [id number] HEALTH (DO HILL Patient NOT USE) Plan [...]
--- OUTSIDE RECORDS SUMMARY | 2020-09-28 14:24 | XMS_ITS | Continuity of Care Document ---
:1945 Author Organization [facility] Address [address] [place] [address] Care Team Providers Name Role Phone [facility] Primary Care Physician Unavailable Dianelys [...] have a copy on file here at [facility]? Yes 2016 8:06am Does patient have an Advanced Directive? Yes June 29, 2016 8:06am Pt has a Living Will? 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 Yes June 29 8:06am Chief Complaint and Reason for Visit Encounter Admit Date Chief Complaint Reason for Visit Departed February 08, 2018 Provider Based Billing Physician/Provider 9:41am Office Visit Hospital Discharge Instructions No known [...] 2016 Metformin 1000 MG ORAL TWICE A March Active DAY 2016 Ibuprofen 600 MG ORAL [...] Discharge/Departure Atte nding Date Date Provider Departed [facility] February 08, February 08, 2018 Cassandra hernandez [facility] 2018 9:41am 9:42am Gianna maldonado ovider Office Visit Departed [facility] December 12December 12, 2017 Eugenie bryan [facility] 2018 11:08am 11:09am Kaitlynn piña ovider Office Visit Departed [facility] Pathology December 12December 12, [facility] 2017 7:45am 7:46am Kristina Departed [facility] Emergency November 01, 2017 November 01, 2017 11:28a m Emergency [facility] Department 6:46am Departed [facility] October 03, 2017 October 03, 2017 10:4 3am Yoel [facility] 10:42am Yen Freedman Office Visit Departed [facility] October 03, 2017 October 03, 2017 11:4 5am [facility] 10:36am Jasmina Functional Status No known functional status. Immunizations No known immunizations. Payers Payer Name Policy Type Covered Covered Relationship Subscriber Sub scriber Republican Republican Id Id MEDICARE Medicare BRYCE [id number] Self/Same as BRYCE HILL [id number] OUT (DO NOT Primary LIZ Patient USE) MEDICARE Medicare BRYCE [id number] Self/Same as BRYCE HILL 3N [id number] PART A AND Primary LIZ Patient B COVERAGE SELF PAY Personal [employer] BRYCE [id number] Self/Same as BRYCE HILL [id number] HEALTH CARE LIZ Patient [employer] BRYCE [id number] Self/Same as BRYCE HILL [id number] HEALTH (DO LIZ Patient NOT USE) Plan [...]
--- OUTSIDE RECORDS SUMMARY | 2020-09-28 14:24 | XMS_ITS | Continuity of Care Document ---
:1945 Author Organization [facility] Address [address] [place] [address] Care Team Providers Name Role Phone [facility] Primary Care Physician Unavailable Dianelys Borden [...] on file here [place] [facility]? Yes 2016 8:06am Does patient have an Advanced Directive? Yes June 29, 2016 8:06am Pt has a Living Will? Yes June 29, 2016 8:06 am Pt has a Power of Supervisor Customer Records Division? Yes June 29 8:06am Chief Complaint and [...] Discharge/Departure Atte nding Date Date Provider Registered [facility] March 26, Jim [facility] 2017 8:52am Jamel ovider Office Visit Registered [facility]30[facility] Jamel Departed [facility] March 13March 13, 2018 Conchita sweet [facility] 2018 9:05am 9:06am Jamel ovider Office Visit Departed [facility] February 27February 27, 2018 Art kraft [facility] 2017 10:03am 10:04am Jamel Orthopedics Departed [facility] February 27February 27, 2018 Mack smith [facility] 2018 9:24am 9:25am Jamel ovider Office Visit Departed [facility] February 22February 22, 2018 And letitia [facility] 2017 8:59am 9:00am Nyasia martinez [place] Office Visit Departed [facility] February 22February 22, [facility] 2018 8:55am 10:19am Albans Discharged [facility] February 20March 12, 2018 [facility] 2017 9:30am 11:29am Barbara Departed [facility] February 08February 08, 2018 Cassandra hernandez [facility] 2018 9:41am 9:42am Gianna maldonado ovider Office Visit Departed [facility] December 12December 12, 2017 Eugenie bryan [facility] 2018 11:08am 11:09am Kaitlynn piña ovider Office Visit Departed [facility] Pathology December 12December 12, [facility] 2018 7:45am 7:46am Kristina Departed [facility] Emergency November 01, 2017 November 01, 2017 11:28a m Emergency Medical Center Department 6:46am Departed [facility] October 03, 2017 October 03, 2017 10:4 3am Yoel [facility] 10:42am Yen Freedman Office Visit Departed [facility] October 03, 2017 October 03, 2017 11:4 5am [facility] 10:36am Jasmina Functional Status No known functional status. Immunizations No known immunizations. Payers Payer Name Policy Type Covered Covered Relationship Subscriber Sub scriber Green Party Green Party Id Id MEDICARE Medicare BRYCE [id number] Self/Same as BRYCE HILL [id number] OUT (DO NOT Primary LIZ Patient USE) MEDICARE Medicare BRYCE [id number] Self/Same as BRYCE HILL 3N [id number] PART A AND Primary LIZ Patient B COVERAGE SELF PAY Personal [employer] BRYCE [id number] Self/Same as BRYCE HILL [id number] HEALTH CARE LIZ Patient [employer] BRYCE [id number] Self/Same as BRYCE HILL [id number] HEALTH (DO HILL Patient NOT USE) Plan [...]
--- OUTSIDE RECORDS SUMMARY | 2020-09-28 14:24 | XMS_ITS | Continuity of Care Document ---
:1945 Author Organization Address [address] [place] [address] Care Team Providers Name Role Phone Out [...] 2018 Guaifenesin 400 MG ORAL .q8hr 15 March [...] Date/Time Result Interp. Ref. Range Result Comment Coronavirus 2018October 24, 2019 Negative Negati ve results do not preclude 2019- nCoV infection and PCR Interp 10:00am should not be used as the sole basis for treatment or other patient manage ment decisions. Negative results must be combined with clinical observations, patient history, and epidemiologica l information. This test was developed and its performance characteristics determined by [facility]. It has not been cleared or approved [...] This test is b ased on the CDC COVID-19 Emergency Use Authorization (EUA) assay, with minor modification as defined by the FDA Performed on t [facility] Reference Lab October 24, 2019 [facility] [facility] Is Pat ient Admitted or Awaiting Admission?:no Test Performing 10:00am lab COVID [facility]: INSIDE STEWARD/STEWARDESS Site Test performed [place] [address] Chief Complaint and Reason for Visit Encounter Admit Date Chief Complaint Reason for Visit Departed Clinical October 24, 2019 8:49am COVID19 CURBSIDE TEST Hospital Discharge Instructions No known hospital discharge instructions. Hospital Discharge Medications Medication Dose Units Route Sig Qty Days Order Status Instru ctions Date Atorvastatin 40 MG ORAL BEDTIME June 23 Active 2016 Metformin 500 MG ORAL EVERY June 23, Discontinued MORNING 2016 Omeprazole 40 MG ORAL EVERY June 23, Active MORNING 2016 Aspirin 81 MG ORAL BEDTIME June 23, Discontinued 2016 Calcium 500 MG ORAL TWICE [...] Discharge/Departure Atte nding Date Date Provider Dep[facility] [place] October 24, 2019 October 24, 2019 8:50am Sima nash, [facility] 8:49am Russel Departed [facility] March 10March 10, 2019 Siva valle, [facility] 2018 11:09am 11:10am Abbey Freedman Office Visit Departed [facility] March 10March 10, [address] [facility] [address] [facility] [facility] 2018 11:07am 12:00pm [place] Functional Status Query Response Date Recorded Comment Living Situation Alone March 10, 2019 11:13am Immunizations No known immunizations. Payers Payer Name Policy Type Covered Covered Relationship Subscriber Sub scriber Constitution Party Constitution Party Id Id [employer] BRYCE [id number] Self/Same as BRYCE HILL [id number] OUT OF [place] Patient STATE MEDICARE Medicare BRYCE [id number] Self/Same as BRYCE HILL [id number] OUT (DO NOT Primary LIZ Patient USE) MEDICARE Medicare BRYCE [id number] Self/Same as BRYCE HILL 3N [id number] PART A AND Primary LIZ Patient B COVERAGE SELF PAY Personal [employer] BRYCE [id number] Self/Same as BRYCE HILL [id number] HEALTH CARE LIZ Patient [employer] BRYCE [id number] Self/Same as BRYCE HILL [id number] HEALTH (DO LIZ Patient NOT USE) Plan [...]
--- OUTSIDE RECORDS SUMMARY | 2020-09-28 14:24 | XMS_ITS | Continuity of Care Document ---
:1945 Author Organization [facility] Address [address] [place] [address] Care Team Providers Name Role Phone [facility] Primary Care Physician Unavailable Mila Fernandez [...] have a copy on file here [place] [facility]? Yes Zonia 2016 8:06am Does patient have an Advanced Directive? Yes June 29, 2016 8:06am Pt has a Living Will? Yes June 29, 2016 8:06 am Pt has a Power of Farmworker [employer]? Yes June 29 8:06am Chief Complaint and Reason for Visit Encounter Admit Date Chief Complaint Reason for Visit Departed March 13, 2018 Provider Based Billing Physician/Provider 9:05am Office Visit Hospital Discharge Instructions No known [...] nding Date Date Provider Departed [facility] April 13April 13, 2018 Conchita sweet [facility] 2017 1:53pm 1:54pm Jamel ovider Office Visit Departed [facility] April 09April 09, 2018 Mack smith [facility] 2017 12:08pm 12:09pm [facility] Departed [facility] March 26March 26, 2018 Mack smith [facility] 2017 8:52am 8:53am Jamel ovider Office Visit Discharged [facility] March 21April 25, [facility] 10:30am 11:29am Jamel Departed [facility] March 13March 13, 2018 Conchita sweet [facility] 2017 9:05am 9:06am Jamel ovider Office Visit Departed [facility] February 27February 27, 2018 Art kraft [facility] 2017 10:03am 10:04am Jamel Orthopedics Departed [facility] February 27February 27, 2018 Mack smith [facility] 2017 9:24am 9:25am Jamel ovider Office Visit Departed [facility] February 22February 22, 2018 And letitia [facility] 2017 8:59am 9:00am Nyasia chineduer [place] Office Visit Departed [facility] February 22February 22, [facility] 2017 8:55am 10:19am Albans Discharged [facility] February 20March 12, 2018 [facility] 9:30am 11:29am Barbara Departed [facility] February 08February 08, 2018 Cassandra hernandez [facility] 2018 9:41am 9:42am Gianna maldonado ovider Office Visit Departed [facility] December 12, December 12, 2017 Eugenie bryan [facility] 2017 11:08am 11:09am Kaitlynn piña ovider Office Visit Departed [facility] Path[facility] December 12December 12, [facility] 2017 7:45am 7:46am Kristina Departed [facility] Emergency November 01, 2017 November 01, 2017 11:28a m Emergency [facility] Department 6:46am Departed [facility] October 03, 2017 October 03, 2017 10:4 3am Yoel [facility] 10:42am Yen juan [place] Office Visit Departed [facility] October 03, 2017 October 03, 2017 11:4 5am [facility] 10:36am [place] Functional Status No known functional status. Immunizations No known immunizations. Payers Payer Name Policy Type Covered Covered Relationship Subscriber Sub scriber Libertarian Libertarian Id Id [facility] [employer] BRYCE [id number] Self/Same as BRYCE HILL [id number] [place] OF [place] Patient STATE MEDICARE Medicare BRYCE [id number] Self/Same as BRYCE HILL [id number] OUT (DO NOT Primary LIZ Patient USE) MEDICARE Medicare BRYCE [id number] Self/Same as BRYCE HILL 3N [id number] PART A AND Primary LIZ Patient B COVERAGE SELF PAY Personal [employer] BRYCE [id number] Self/Same as BRYCE HILL [id number] HEALTH CARE LIZ Patient [employer] BRYCE [id number] Self/Same as BRYCE HILL [id number] HEALTH (DO LIZ Patient NOT USE) Plan [...]
--- OUTSIDE RECORDS SUMMARY | 2020-09-28 14:24 | XMS_ITS | Continuity of Care Document ---
:1945 Author Organization [facility] Address [address] [place] [address] Care Team Providers Name Role Phone Zoraida [...] have a copy on file here at [facility]? Yes M 2016 8:06am Does patient have an Advanced Directive? Yes June 29, 2016 8:06am Pt has a Living Will? Yes June 29, 2016 8:06 am Pt has a Power of Maintenance Of Way 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? Yes June 29 8:06am Chief Complaint and [...] nding Date Date Provider Departed [facility] March 26March 26, 2018 Mack smith [facility] 2018 8:52am 8:53am Jamel ovider Office Visit Registered [facility] 10:30am Jamel Departed [facility] March 13March 13, 2018 Conchita sweet [facility] 2018 9:05am 9:06am Jamel ovider Office Visit Departed [facility] February 27February 27, 2018 Art kraft [facility] 2017 10:03am 10:04am Jamel Orthopedics Departed [facility] February 27February 27, 2018 Mack smith Physician/[facility] Orthoped[facility] 2018 9:24am 9:25am Jamel ovider Office Visit Departed [facility] February 22February 22, 2018 And letitia [facility] 2017 8:59am 9:00am Nyasia martinez [place] Office Visit Departed [facility] February 22February 22, [facility] 2018 8:55am 10:19am [place] Discharged [facility] February 20March 12, 2018 [facility] 2017 9:30am 11:29am Barbara Departed [facility] February 08February 08, 2018 Cassandra hernandez [facility] 2018 9:41am 9:42am Gianna maldonado ovider Office Visit Departed [facility] December 12December 12, 2017 Eugenie bryan [facility] 2018 11:08am 11:09am Kaitlynn piña ovider Office Visit Departed [facility] Pathology December 12, December 12, [facility] 7:45am 7:46am Kristina Departed [facility] Emergency November 01, 2017 November 01, 2017 11:28a m Emergency Medical Center Department 6:46am Departed [facility] October 03, 2017 October [...] Green Party Id Id MEDICARE Medicare BRYCE [id number] Self/Same as BRYCE HILL [id number] OUT (DO NOT Primary LIZ Patient USE) MEDICARE Medicare BRYCE [id number] Self/Same as BRYCE HILL 3N [id number] PART A AND Primary LIZ Patient B COVERAGE SELF PAY Personal [employer] BRYCE [id number] Self/Same as BRYCE HILL [id number] HEALTH CARE LIZ Patient [employer] BRYCE [id number] Self/Same as BRYCE HILL [id number] HEALTH (DO HILL Patient NOT USE) Plan [...]
--- OUTSIDE RECORDS SUMMARY | 2020-09-28 14:24 | XMS_ITS | Continuity of Care Document ---
:1945 Author Organization [facility] Address [address] [place] [address] Care Team Providers Name Role Phone Out of Town Primary Care Physician Unavailable Tashia Fong Attending Physician Allergies, Adverse Reactions, Alerts Allergen [...] have a [place] [facility] Yes Zonia 2016 8:06am Does patient have an Advanced Directive? Yes June 29, 2016 8:06am Pt has a Living Will? Yes June 29, 2016 8:06 am Pt has a Power of Cooking Instructor? Yes June 29 8:06am Chief Complaint and Reason for Visit Encounter Admit Date Chief Complaint Reason for Visit Departed May 10, 2018 Provider Based Billing Physician/Provider 9:13am Office Visit Hospital Discharge Instructions No known [...] nding Date Date Provider Departed [facility] May 10May 10, 2018 Sumanth rodriguez Physician/[facility] Orthopedics 2019 9:13am 9:14am Juvencio ovider Office Visit Departed [facility] April 13April 13, 2018 Conchita sweet [facility]ics 2017 1:53pm 1:54pm Jamel ovider Office Visit Departed [facility] April 09April 09, 2018 Mack smith [facility] 2017 12:08pm 12:09pm [facility] Departed [facility] March 26March 26, 2018 Mack smith [facility] Orthopedics 2018 8:52am 8:53am Jamel ovider Office Visit Discharged [facility] March 21April 25, 2018 [facility] 10:30am 11:29am Jamel Departed [facility] March 13March 13, 2018 Conchita sweet [facility] Orthopedics 2017 9:05am 9:06am Jamel ovider Office Visit Departed [facility] February 27February 27, 2018 Art kraft [facility] 2017 10:03am 10:04am Jamel Orthopedics Departed [facility] February 27February 27, 2018 Mack smith [facility] 2017 9:24am 9:25am Jamel ovider Office Visit Departed [facility] February 22February 22, 2018 And letitia Physician/[facility] 2017 8:59am 9:00am Nyasia juan [place] Office Visit Departed [facility] February 22February 22, [facility] 2017 8:55am 10:19am [place] Discharged [facility] February 20March 12, 2018 [facility] 2017 9:30am 11:29am Barbara Departed [facility] February 08February 08, 2018 Cassandra hernandez [facility] 2018 9:41am 9:42am Gianna medranoe ovider Office Visit Departed [facility] December 12December 12, 2017 Eugenie bryan [facility] 2018 11:08am 11:09am Kaitlynn piña ovider Office Visit Departed [facility] 12December 12, [facility] 2017 7:45am 7:46am Kristina Departed [facility] Emergency November 01, 2017 November 01, 2017 11:28a m [facility] Department 6:46am Departed [facility] October 03, 2017 October 03, 2017 10:4 3am Yoel [facility] 10:42am Yen martinez [place] Office Visit Departed [facility] October 03, 2017 October 03, 2017 11:4 5am [facility] 10:36am [place] Functional Status No known functional status. Immunizations No known immunizations. Payers Payer Name Policy Type Covered Covered Relationship Subscriber Sub scriber Libertarian Libertarian Id Id [facility] [employer] BRYCE [id number] Self/Same as BRYCE HILL [id number] OUT OF [place] Patient STATE MEDICARE Medicare BRYCE [id number] Self/Same as BRYCE HILL [id number] OUT (DO NOT Primary LIZ Patient USE) MEDICARE Medicare BRYCE [id number] Self/Same as BRYCE HILL 3N [id number] PART A AND Primary LIZ Patient B COVERAGE SELF PAY Personal [employer] BRYCE [id number] Self/Same as BRYCE HILL [id number] HEALTH CARE LIZ Patient [employer] BRYCE [id number] Self/Same as BRYCE HILL [id number] HEALTH (DO LIZ Patient NOT USE) Plan [...] 2018 9:10am Blood Pressure Diastolic 74 50-85 [facility] 2017 9:10am Body Mass Index n/a
--- OUTSIDE RECORDS SUMMARY | 2020-09-28 14:24 | XMS_ITS | Continuity of Care Document ---
:1945 Author Organization [facility] Address [address] [place] [address] Care Team Providers Name Role Phone Maggy Rojas Attending Physician [facility] Primary Care Physician Unavailable Allergies, Adverse [...] 8:06 am Pt has a Power of Lacquer Maker? Yes June 29 8:06am Chief Complaint and [...] Discharge/Departure Atte nding Date Date Provider Departed [facility] June 29, 2016 June 29, 2016 9:[facility]am [facility] 8[facility]00am Abisai Zepeda Registered [facility] 2:52pm Norris kraft Functional Status No known functional status. Immunizations No known immunizations. Payers Payer Name Policy Type Covered Covered Relationship Subscriber Sub scriber Constitution Party Constitution Party Id Id MEDICARE Medicare BRYCE [id number] Self/Same as BRYCE HILL [id number] OUTPATIENT Primary LIZ Patient *DON'T USE MEDICARE PART Medicare BRYCE [id number] Self/Same as BRYCE HILL [id number] A AND B Primary LIZ Patient COVERAGE SELF PAY Personal [email or web address] BRYCE [id number] Self/Same as BRYCE HILL [id number] CARE LIZ Patient [email or web address] BRYCE [id number] Self/Same as BRYCE HILL [id number] (DO NOT USE) LIZ Patient Plan of [...]
--- OUTSIDE RECORDS SUMMARY | 2020-09-28 14:24 | XMS_ITS | Continuity of Care Document ---
:1945 Author Organization [facility] Address [address] [place] [address] Care Team Providers Name Role Phone Zoraida [...] [place] [facility] Yes 2016 8:06am Does patient have an Advanced Directive? Yes June 29, 2016 8:06am Pt has a Living Will? Yes June 29, 2016 8:06 am Pt has a Power of Manager Hospice? Yes June 29 8:06am Chief Complaint and Reason for Visit Encounter Admit Date Chief Complaint Reason for Visit Departed February 27, 2018 Provider Based Billing Physician/Provider 9:24am Office Visit Hospital Discharge Instructions No known [...] Discharge/Departure Atte nding Date Date Provider Departed [facility] February 27, February 27, 2018 Art kraft [facility] 2017 10:03am 10:04am Jamel Orthopedics Departed [facility][1] February 27February 27, 2018 Mack smith Physician/[facility] Orthopedics 2017 9:24am 9:25am Jamel ovider Office Visit Departed [facility][1] February 22February 22, 2018 And letitia Physician/[facility] 2017 8:59am 9:00am Nyasia Freedman Office Visit Departed [facility][1] February 22February 22, [facility] 2017 8:55am 10:19am Jasmina Registered [facility] February 20, [facility] 2018 9:30am Barbara Departed [facility][1] February 08, February 08, 2018 Cassandra hernandez Physician/[facility] Dermatology 2018 9:41am 9:42am Gianna maldonado ovider Office Visit Departed [facility][1] December 12December 12, 2017 Eugenie bryan Physician/[facility] Dermatology 2018 11:08am 11:09am Kaitlynn piña ovider Office Visit Departed [facility] Pathology December 12December 12, [facility] 7:45am 7:46am Kristina Departed [facility] Emergency November 01, 2017 November 01, 2017 11:28a m [facility] Department 6:46am Departed [facility][1] October 03, 2017 October 03, 2017 10:4 3am Yoel Physician/[facility] 10:42am Yen Freedman Office Visit Departed [facility][1] October 03, 2017 October 03, 2017 11:4 5am [facility] 10:36am Jasmina Functional Status No known functional status. Immunizations No known immunizations. Payers Payer Name Policy Type Covered Covered Relationship Subscriber Sub scriber Libertarian Libertarian Id Id MEDICARE Medicare BRYCE [id number] Self/Same as BRYCE HILL [id number] OUT (DO NOT Primary LIZ Patient USE) MEDICARE Medicare BRYCE [id number] Self/Same as BRYCE HILL 3N [id number] PART A AND Primary LIZ Patient B COVERAGE SELF PAY Personal [employer] BRYCE [id number] Self/Same as BRYCE HILL [id number] HEALTH CARE LIZ Patient [employer] BRYCE [id number] Self/Same as BRYCE HILL [id number] HEALTH (DO HILL Patient NOT USE) Plan [...]
--- OUTSIDE RECORDS SUMMARY | 2020-09-28 14:24 | XMS_ITS | Continuity of Care Document ---
:1945 Author Organization [facility] Address [address] [place] [address] Care Team Providers Name Role Phone Juandignity [...] have a copy on file here [place] [facility] Yes Zonia 2016 8:06am Does patient have an Advanced Directive? Yes June 29, 2016 8:06am Pt has a Living Will? Yes June 29, 2016 8:06 am Pt has a Power of Sewing Demonstrator? Yes June 29 8:06am Chief Complaint and Reason for Visit Encounter Admit Date Chief Complaint Reason for Visit Departed April 13, 2018 Provider Based Billing Physician/Provider 1:53pm Office Visit Hospital Discharge Instructions No known [...] Date Date Provider Departed [facility] April 13April 13, 2018 Conchita sweet [facility] 2017 1:53pm 1:54pm Jamel ovider Office Visit Departed [facility] April 09April 09, [address] [facility] 2017 12:08pm 12:09pm [facility] Departed [facility] March 26March 26, 2018 Mack smith Physician[facility] 2017 8:52am 8:53am Jamel ovider Office Visit Registered [facility] 10:30am Jamel Departed [facility] March 13March 13, 2018 Conchita sweet Physician[facility] 2017 9:05am 9:06am Jamel ovider Office Visit Departed [facility] February 27February 27, [address] [facility] 2017 10:03am 10:04am Jamel Orthopedics Departed [facility] February 27February 27, 2018 Mack smith Physician[facility] 2018 9:24am 9:25am Jamel ovider Office Visit Departed [facility] February 22February 22, 2018 And letitia [facility] 2017 8:59am 9:00am Nyasia Freedman Office Visit Departed [facility] February 22February 22, [facility] 2017 8:55am 10:19am Albadriano Discharged [facility] February 20March 12, 2018 [facility] 9:30am 11:29am Barbara Departed [facility] February 08February 08, 2018 Cassandra hernandez [facility] 2017 9:41am 9:42am Gianna maldonado ovider Office Visit Departed [facility] December 12December 12, 2017 Eugenie bryan Phys[facility] 2017 11:08am 11:09am Kaitlynn piña ovider Office Visit Departed [facility] Pathology December 12December 12, [facility] 7:45am 7:46am [facility] 01, 2017 November 01, 2017 11:28a m [facility] Department 6:46am Departed [facility] October 03, 2017 October 03, 2017 10:4 3am Yoel [facility] 10:42am Yen ovider [facility] Office Visit Departed [facility] October 03, 2017 October 03, 2017 11:4 5am [facility] 10:36am [facility] Functional Status No known functional status. Immunizations No known immunizations. Payers Payer Name Policy Type Covered Covered Relationship Subscriber Sub scriber Republican Republican Id Id [employer] BRYCE [id number] Self/Same as BRYCE HILL [id number] OUT OF [place] Patient STATE MEDICARE Medicare BRYCE [id number] Self/Same as BRYCE HILL [id number] OUT (DO NOT Primary LIZ Patient USE) MEDICARE Medicare BRYCE [id number] Self/Same as BRYCE HILL 3N [id number] PART A AND Primary LIZ Patient B COVERAGE SELF PAY Personal [employer] BRYCE [id number] Self/Same as BRYCE HILL [id number] HEALTH CARE LIZ Patient [employer] BRYCE [id number] Self/Same as BRYCE HILL [id number] HEALTH (DO LIZ Patient NOT USE) Plan [...]
--- OUTSIDE RECORDS SUMMARY | 2020-09-28 14:24 | XMS_ITS | Continuity of Care Document ---
:1945 Author Organization [facility] Address [address] [place] [address] Care Team Providers Name Role Phone [facility] Primary Care Physician Unavailable Dianelys Borden [...] have a copy on file here at [facility] [place]? Yes 2016 8:06am Does patient have an Advanced Directive? Yes June 29, 2016 8:06am Pt has a Living Will? Yes June 29, 2016 8:06 am Pt has a Power of Rotating Field Assembler? Yes June 29 8:06am Chief Complaint and [...] Discharge/Departure Atte nding Date Date Provider Departed [facility] December 12December 12, 2017 Eugenie bryan Phys[facility]erm[facility] 2017 11:08am 11:09am Kaitlynn martinez Office Visit Departed [facility] Emergency November 01, 2017 November 01, 2017 11:28a m [facility] Department 6:46am Departed [facility] October 03, 2017 October 03, 2017 10:4 3am Yoel Physician[facility] 10:42am Yen martinez Albadriano Office Visit Departed [facility] October 03, 2017 October 03, 2017 11:4 5am [facility] 10:36am Albadriano Functional Status No known functional status. Immunizations No known immunizations. Payers Payer Name Policy Type Covered Covered Relationship Subscriber Sub scriber Constitution Party Constitution Party Id Id MEDICARE Medicare BRYCE [id number] Self/Same as BRYCE HILL [id number] OUT (DO NOT Primary LIZ Patient USE) MEDICARE Medicare BRYCE [id number] Self/Same as BRYCE HILL 3N [id number] PART A AND Primary LIZ Patient B COVERAGE SELF PAY Personal [employer] BRYCE [id number] Self/Same as BRYCE HILL [id number] HEALTH CARE LIZ Patient [employer] BRYCE [id number] Self/Same as BRYCE HILL [id number] [facility] (DO HILL Patient NOT USE) Plan [...]
--- OUTSIDE RECORDS SUMMARY | 2020-09-28 14:24 | XMS_ITS | Continuity of Care Document ---
:1945 Author Organization [facility] Address [address] [place] [address] Care Team Providers Name Role Phone Zoraida Primary Care Physician Zoraida Attending Physician Allergies, Adverse Reactions, Alerts Allergen [...] Metformin 1000 MG ORAL TWICE A June 23 DAY 2016 Ibuprofen 600 MG ORAL THREE June 23, Active [Motrin Ib] TIMES A 2016 DAY PRN For Pain Metoprolol November 01 Succinate 2017 Lisinopril February Fluticasone 1 SPR NASAL Q12H 9.9 February Active adm inister into Propionate 2018 each nostril Benzonatate 100 MG ORAL every day 07 March Active at bedtime 2018 PRN For cough [...] 15 March 15, Disco nti r 2018 nu2018 Problem List Active Problems Medical Problem Onset [...] developed and its performance characteristics determined by [facility]. It has not been cleared or approved [...] the FDA Performed on t he [facility] [address] [facility] October 24, 2019 [facility] Pat ient Admitted or Awaiting Admission?:no Test Performing 10:00am lab [facility]: HEALTHCARE SPECIALIST Site Test performed [place] [address] Hospital Discharge Instructions No known hospital discharge [...] MG ORAL TWICE A June 23, Active 2016 Metformin 1000 MG ORAL TWICE A [...] TWICE A 14 October 03, Discontinu ed 2017 Metoprolol November 01 Active Succinate 2017 Lisinopril February Active 2018 Prednisone 10 MG ORAL DAILY 5 5 February Discontinue d 2018 Fluticasone 1 SPR NASAL Q12H 9.9 November Active adm inister Propionate 2018 into each nostril Guaifenesin 400 MG ORAL .q8hr 15 5 February Discontinu ed 2018 Benzonatate 100 MG ORAL every 07 March Active day at 2018 bedtime PRN For cough Encounters Encounter Facility Location Admit/Visit Discharge/Departure Atte nding Date Date Provider Departed [facility] March 18, March 18, 2020 Fabian owens, [facility] 2019 10:00am 10:01am Barbara Departed [facility] October 24, 2019 October 24, 2019 8:50am Sima nash, [facility] 8:49am Russel Functional Status No known functional status. Immunizations No known immunizations. Plan of Care No Known Plan of Care Information Social History No known social history. Vital Signs No known vital signs results.
--- OUTSIDE RECORDS SUMMARY | 2020-09-28 14:24 | XMS_ITS | Continuity of Care Document ---
:1945 Author Organization [facility] Address [address] [place] [address] Care Team Providers Name Role Phone [facility] Primary Care Physician Unavailable Maggy Rojas Attending [...] BEDTIME June 23September 02, 2016 Discontinu ed 2017 Problem List No problem information available. Procedures Procedure Date Status Provider(s) Cataract Extraction with IOL - MAC & September 07, 2016 completed Abisai Rojas Topical (Left) CATARACT SURG W/IOL 1 STAGE June 29, 2016 active Reason for Referral Reason for Referral Date Referral Provider Office Contact Locat ion was Provided Relevant Diagnostic Tests and/or Laboratory Data No known relevant diagnostic tests, laboratory data, and/or discharge summary. Advance Directives Advance Directive Response Recorded Date/Time Do we have a copy on file here at [facility] [place]? Yes 2016 8:06am Does patient have an Advanced Directive? Yes June 29, 2016 8:06am Pt has a Living Will? Yes June 29, 2016 8:06 am Pt has a Power of Wound Care Center Consultant? Yes June 29 8:06am Chief Complaint and Reason for Visit Encounter Admit Date Chief Complaint Reason for Visit Departed September 07, 2016 6:28am COMBINED FORMS OF Care AGE-RELATED CATARACT, LEFT EYE Hospital Discharge Instructions No known hospital discharge instructions. Hospital Discharge Medications Medication Dose Units Route Sig Qty Days Order Status Instru ctions Date Atorvastatin 40 mg ORAL BEDTIME June Metformin 500 mg ORAL EVERY June Discontinued [...] Discharge/Departure Atte nding Date Date Provider Departed [facility] September 07, 2016 September 07, 2016 8:18am Myla miller [facility] 6:28am Abisai Zepeda Departed [facility] July 07July 07, 2016 9:13am Crystal [facility] 2017 9:12am Albert martinez Office Visit Departed [facility] June 30, 2016 June 30, 2016 8:14 am Crystal [facility] 8:13am Ricardo martinez Office Visit Departed [facility] June 29, 2016 June 29, 2016 9:49am Crystal [facility] 8:00am Abisai Zepeda Registered [facility] 2:52pm Norris y Registered [facility] Life Style [facility] March 05, Mirela he, [facility] 2015 8:00am Barbara Registered [facility] Life Style [facility] February 26, Wendy burgess, [facility] 2015 8:00am Barbara Registered [facility] Med February 19, Wendy burgess, [facility] 2015 8:00am Barbara Registered [facility] Life Style [facility] February 05, Wendy burgess, [facility] 2015 8:00am Barbara Functional Status No known functional status. Immunizations No known immunizations. Payers Payer Name Policy Type Covered Covered Relationship Subscriber Sub scriber Green Party Green Party Id Id MEDICARE Medicare BRYCE [id number] Self/Same as BRYCE HILL [id number] OUT (DO NOT Primary LIZ Patient USE) MEDICARE Medicare BRYCE [id number] Self/Same as BRYCE HILL [id number] PART A AND Primary LIZ Patient B COVERAGE SELF PAY Personal [employer] BRYCE [id number] Self/Same as BRYCE HILL [id number] HEALTH CARE LIZ Patient [employer] BRYCE [id number] Self/Same as BRYCE HILL [id number] HEALTH (DO LIZ Patient NOT USE) Plan [...] 07, 2016 8:1 4am Respiration 18 RPM 12-September 07, 2016 8:1 4am Pulse Oximetry 96 % 95-100 September 07, 2016 8:1 4am Blood Pressure Systolic 148 100-140 September 07, 2016 8:14am Blood Pressure Diastolic 91 50-85 September 07, 2016 8:14am Body Mass Index 34.0 September 07, 2016 6:4 1am
--- OUTSIDE RECORDS SUMMARY | 2020-09-28 14:24 | XMS_ITS | Continuity of Care Document ---
:1945 Author Organization [facility] Address [address] [place] [address] Care Team Providers Name Role Phone Maggy Rojas Attending Physician [facility] Primary Care Physician Unavailable Allergies, Adverse Reactions, [...] 8:06 am Pt has a Power of Pumping Station Supervisor? Yes June 29 8:06am Chief Complaint and [...] Discharge/Departure Atte nding Date Date Provider Departed [facility] Surgical June 29, 2016 June 29, 2016 [facility] Abisai Zepeda Registered [facility] 2016 2:52pm Norris kraft Functional Status No known functional status. Immunizations No known immunizations. Payers Payer Name Policy Type Covered Covered Relationship Subscriber Sub scriber Democrat Democrat Id Id MEDICARE Medicare BRYCE [id number] Self/Same as BRYCE HILL [id number] OUTPATIENT Primary LIZ Patient *DON'T USE MEDICARE PART Medicare BRYCE [id number] Self/Same as BRYCE HILL [id number] A AND B Primary LIZ Patient COVERAGE SELF PAY Personal [employer] BRYCE [id number] Self/Same as BRYCE HILL [id number] CARE LIZ Patient [employer] BRYCE [id number] Self/Same as BRYCE HILL [id number] (DO NOT USE) LIZ Patient Plan of [...]
--- OUTSIDE RECORDS SUMMARY | 2020-09-28 14:24 | XMS_ITS | Continuity of Care Document ---
:1945 Author Organization [facility] Address [address] [place] [address] Care Team Providers Name Role Phone Zoraida Primary Care Physician Unavailable Allergies, Adverse Reactions, [...] have a copy on file here at [facility]? Yes 2016 8:06am Does patient have an Advanced Directive? Yes June 29, 2016 8:06am Pt has a Living Will? Yes June 29, 2016 8:06 am Pt has a Power of Handicrafts Teacher? Yes June 29 7 8:06am Hospital Discharge Instructions Additional Discharge Instructions I am referring you t o see an orthopedist for your hip pain and arthritis. Continue with ibuprofen as d irected. If you experience sudden wor sening, numbness, inability to bear weight, fever, swelling or any other concerning symptoms you should be evaluated right away. No Instructions/Education Provided Hospital Discharge Medications Medication [...] 1 CAP ORAL Q12H PRN June Disc in Monohyd/M-Cryst For 2016 Bladder Spasms Cephalexin 500 MG ORAL TWICE A 05 October Discontinued DAY 2017 Metoprolol October Active Succinate 2017 Encounters Encounter Facility Location Admit/Visit Discharge/Departure Atte nding Date Date Provider Registered [facility] February 22 [facility] 2017 8:59am Nyasia Freedman Office Visit Departed [facility] February 22, February 22, 2018 [facility] 2017 8:55am 10:19am Jasmina Registered [facility] 9:30am Barbara Departed [facility] February 08, February 08, 2018 Cassandra hernandez Physician[facility] 2018 9:41am 9:42am Gianna maldonado ovider Office Visit Departed [facility] December 12, December 12, 2017 Eugenie bryan Physician/[facility] Derm[facility] 2018 11:08am 11:09am Kaitlynn piña ovider Office Visit Departed [facility] December 12December 12, 2017 [facility] 7:45am 7:46am Kristina Departed [facility] Emergency November 01, 2017 November 01, 2017 11:28a m [facility] Department 6:46am Departed [facility] October 03, 2017 October 03, 2017 10:4 3am Yoel Physician[facility] 10:42am Yen Freedman Office Visit Departed [facility] October 03, 2017 October 03, 2017 11:4 5am [facility] 10:36am Jasmina Functional Status No known functional status. Immunizations No known immunizations. Payers Payer Name Policy Type Covered Covered Relationship Subscriber Sub scriber Democrat Democrat Id Id MEDICARE Medicare BRYCE [id number] Self/Same as BYRCE HILL [id number] OUT (DO NOT Primary LIZ Patient USE) MEDICARE Medicare BRYCE [id number] Self/Same as BRYCE HILL 3N [id number] PART A AND Primary LIZ Patient B COVERAGE SELF PAY Personal [employer] BRYCE [id number] Self/Same as BRYCE HILL [id number] HEALTH CARE LIZ Patient [employer] BRYCE [id number] Self/Same as BRYCE HILL [id number] HEALTH (DO LIZ Patient NOT USE) Plan [...]
--- OUTSIDE RECORDS SUMMARY | 2020-09-28 14:24 | XMS_ITS | Continuity of Care Document ---
:1945 Author Organization [facility] Address [address] [place] [address] Care Team Providers Name Role Phone Zoraida [...] have a copy on file here [facility]? Yes 2016 8:06am Does patient have an Advanced Directive? Yes June 29, 2016 8:06am Pt has a Living Will? Yes June 29, 2016 8:06 am Pt has a Power of Logistics/Shipper? Yes June 29 8:06am Chief Complaint and [...] Discharge/Departure Atte nding Date Date Provider Departed [facility] October 13, 2016 October 13, 2016 9:00 am Physician [facility] 8:59am Ricardo martinez Office Visit Departed [facility] September 08, 2016 September 08, 2016 8:06am [facility] 8:05am Ricardo martinez Office Visit Departed [facility] September 07, 2016 September 07, 2016 8:18am Myla miller Surgical Day [facility] Services 6:28am Abisai Zepeda Departed [facility] July 07July 07, 2016 9:13am Crystal [facility] 2017 9:12am Albert martinez Office Visit Departed [facility] June 30, 2016 June 30, 2016 8:14 am [facility] 8:13am Ricardo martinez Office Visit Departed [facility] Surgical June 29, 2016 June 29, 2016 9:[facility] Abisai Zepeda Registered [facility] May 24, Crystal [facility] Ophthalmology 2016 2:52pm Norris kraft Registered [facility] Life Style [facility] March 05, Mirela he, [facility] 2016 8:00am Barbara Registered [facility] Life [facility] February 26, Wendy burgess, [facility] 2015 8:00am Barbara Registered [facility] Med February 19[facility] 8[facility]am Barbara Reg[facility] Life [facility] February 05, [facility] 8:00am Barbara Functional Status No known functional status. Immunizations No known immunizations. Payers Payer Name Policy Type Covered Covered Relationship Subscriber Sub scriber Libertarian Libertarian Id Id MEDICARE Medicare BRYCE [id number] Self/Same as BRYCE HILL [id number] OUT (DO NOT Primary LIZ Patient USE) MEDICARE Medicare BRYCE [id number] Self/Same as BRYCE HILL [id number] PART A AND Primary LIZ Patient B COVERAGE SELF PAY Personal [employer] BRYCE [id number] Self/Same as BRYCE HILL [id number] HEALTH CARE LIZ Patient [employer] BRYCE [id number] Self/Same as BRYCE HILL [id number] HEALTH (DO LIZ Patient NOT USE) Plan [...]
--- OUTSIDE RECORDS SUMMARY | 2020-09-28 14:24 | XMS_ITS | Continuity of Care Document ---
:1945 Author Organization Address [address] [place] [address] Care Team Providers Name Role Phone Zoraida [...] Onset Date Status Acute UTI Active Procedures No known history of procedures. Relevant Diagnostic Tests and/or Laboratory Data No known relevant diagnostic tests, laboratory data, and/or discharge summary. Advance Directives Advance Directive Response Recorded Date/Time Do we have a copy on file here at [facility]? Yes M arch 2016 8:06am Does patient have an Advanced Directive? Yes June 29, 2016 8:06am Pt has a Living Will? Yes June 29, 2016 8:06 am Pt has a Power of Hospice Consultant? Yes June 29 8:06am Hospital Discharge Instructions Additional Discharge Instructions Urine culture was sent. The description of your symp toms along with your urinalysis are suggestive of a UTI. A different antibiotic has b een ordered. Please complete the entire course. Recommend following up with your PCP 4???5 days after completion of the antibiotic to ensure that there is been improvement and that the blood that is s een on the dip has improved. If your symptoms significant ly worsen, you should be reevaluated in the emergency department. Recommend a bland diet No Instructions/Education Provided Hospital Discharge Medications Medication [...] Cephalexin 500 MG ORAL TWICE A September Encounters Encounter Facility Location Admit/Visit Discharge/Departure Atte nding Date Date Provider Registered [facility] October 03, 2017 Yoel [facility] 10:42am Yen Freedman Office Visit Departed [facility] October 03, 2017 October 03, 2017 11:4 5am [facility] 10:36am Jasmina Departed [facility] October 13, 2016 October 13, 2016 9:00 am Crystal [facility] Op[facility] 8:59am Ricardo martinez Office Visit Functional Status No known functional status. Immunizations No known immunizations. Payers Payer Name Policy Type Covered Covered Relationship Subscriber Sub scriber Republican Republican Id Id MEDICARE Medicare BRYCE [id number] Self/Same as BRYCE HILL [id number] OUT (DO NOT Primary LIZ Patient USE) MEDICARE Medicare BRYCE [id number] Self/Same as BRYCE HILL [id number] PART A AND Primary LIZ Patient B COVERAGE SELF PAY Personal [employer] BRYCE [id number] Self/Same as BRYCE HILL [id number] HEALTH CARE LIZ Patient [place] [employer] BRYCE [id number] Self/Same as BRYCE HILL [id number] [facility] (DO HILL Patient NOT USE) Plan of [...]
--- OUTSIDE RECORDS SUMMARY | 2020-09-28 14:25 | XMS_ITS | Continuity of Care Document ---
:1945 Author Organization [facility] Address [address] [place] [address] Care Team Providers Name Role Phone Out of Town Primary Care Physician Unavailable Rodolfo Attending Physician Allergies, Adverse Reactions, Alerts Allergen Type Severity Reaction Last Updated Verified Status simvastatin Adverse Reaction Moderate March 102018 Sulfa (Sulfonamide Adverse Reaction Unknown March 10 [...] For Pain Metoprolol November 012017 Lisinopril February Prednisone 10 MG ORAL DAILY [...] 500 MG ORAL EVERY JuneSeptember 02, 2016 Discmikhaili NESTORN 2, nu2016 Aspirin 81 MG ORAL BEDTIM JuneSeptember 02, 2016 Elissa E 2016 Lisinopril 40 MG ORAL EVERY JuneNovember 01, 2017 Discont i NESTORN 2, nu G 2016 Multivitamin 1 TAB-CA ORAL EVERY JuneMarch 10, Disco nti P HERBER 2018 Atenolol 50 MG ORAL EVERY JuneMarch 10, Disconti MORNIN 2018 nu G 2016 Magnesium 400 MG ORAL EVERY JuneMarch 10, Disconti EVENIN 2018 nu G 2016 Nitrofurantoi 1 CAP ORAL Q12H JuneNovember 01, [...] have a copy on file here at [facility]? Yes 2016 8:06am Does patient have an Advanced Directive? Yes June 29, 2016 8:06am Pt has a Living Will? Yes June 29, 2016 8:06 am Pt has a Power of Middle School Music Teacher? Yes June 29 8:06am Chief Complaint and [...] ORAL every 14 February Active day at 2019 bedtime PRN For cough Encounters Encounter Facility Location Admit/Visit Discharge/Departure Atte nding Date Date Provider Departed [facility] March 10March 10, 2019 Siva valle [facility] 2018 11:09am 11:10am Abbey Freedman Office Visit Departed [facility] March 10March 10, [facility] 2018 11:07am 12:00pm Jasmina Departed [facility] August 21August 21, 2018 Thony duron [facility] 2018 8:51am 8:52am Juvencio ovider Office Visit Departed [facility] August 21August 21, 2018 Rena [facility]Reha 2018 12:00am Co nversion ovider b Office Visit Departed [facility] August 20August 20, 2018 Rena [facility] Dermatology 2019 12:00am Conver leny ovider Office Visit Departed [facility] May 10May 10, [address] [facility] Orthopedics 2019 9:13am 9:14am Juvencio ovider Office Visit Departed [facility] May 10May 10, 2018 Santos holden [facility]Reha 2018 12:00am Co nversion ovider b Office Visit Departed [facility] April 13April 13, 2018 Conchita sweet [facility] Orthopedics 2017 1:53pm 1:54pm Jamel ovider Office Visit Departed [facility] April 13April 13, 2018 Conchita sweet Physician/Pr Medical [facility] Orthopedic&Reha 2017 12:00am No judy ovider b Office Visit Departed [facility] April 11April 11, 2018 Conchita sweet [facility] Orthopedic&Reha 2017 12:00am No judy ovider b Office Visit Departed [facility] April 09April 09, 8 [facility] 2018 12:08pm 12:09pm Ju n Departed [facility] March 26March 26, 2018 Mack smith [facility] Orthopedics 2018 8:52am 8:53am Jamel ovider Office Visit Departed [facility] March 26March 26, 2018 Mack smith [facility]ician[facility] Orthopedic&Reha 2017 12:00am No judy ovider b Office Visit Discharged [facility] March 21April 25, 2018 [facility] 10:30am 11:29am Jamel Departed [facility] March 13March 13, 2018 Conchita sweet [facility] Orthopedics 2018 9:05am 9:06am Jamel ovider Office Visit Departed [facility] March 13March 13, 2018 Conchita sweet Physician[facility] Orthopedic&Reha 2018 12:00am No judy ovider b Office Visit Departed [facility] February 27February 27, 2018 [facility] 2018 10:03am 10:04am Jamel Departed [facility] February 27February 27, 2018 Mack smith [facility] 2018 9:24am 9:25am Jamel ovider Office Visit Departed [facility] February 27February 27, 2018 Mack smith [facility]Reha 2018 12:00am No judy ovider b Office Visit Departed [facility] February 22February 22, 2018 And letitia [facility] 2017 8:59am 9:00am Nyasia ovider [place] Office Visit Departed [facility] February 22February 22, 2018 [facility] 2017 8:55am 10:19am [facility] Discharged [facility] February 20March 12, 2018 [facility] 2017 9:30am 11:29am Barbara Departed [facility] February 08February 08, 2018 Cassandra hernandez, [facility] 2017 9:41am 9:42am Gianna maldonado ovider Office Visit Departed [facility] February 08February 08, 2018 Satnos holden, [facility] 2017 12:00am Sukhdev leny ovider Office Visit Departed [facility] December 12, December 12, 2017 Eugenie bryan, [facility] 2018 11:08am 11:09am Kaitlynn piña ovider Office Visit Departed [facility] December 12December 12, 2017 [facility] 2018 7:45am 7:46am Kristina Departed [facility] December 12, December 12, 2017 Anupama sarmiento [facility] 2018 12:00am Sukhdev leny ovider Office Visit Departed [facility] Emergency November 01, 2017 November 01, 2017 [facility] Department 6:46am 11:28am Departed [facility] October 03, 2017 October 03, 2017 Katty wei, [facility] 10:42am 10:43am Yen ovider [place] Office Visit Departed [facility] October 03, 2017 October 03, 2017 [facility] 10:36am 11:45am [place] Departed [facility] October 13, 2016 October 13, 2016 9:00 am Crystal [facility] 8:59am Ricardo menezes ovider Office Visit Departed [facility] October 13, 2016 October 13, 2016 Abril gonzalez [facility] 12:00am Sukhdev leny ovider Office Visit Departed [facility] September 15, 2016 September 15, 2016 Rena [facility] 12:00am Conver leny ovider Office Visit Departed [facility] September 08, 2016 September 08, 2016 8:06am Crystal [facility] 8:05am Ricardo ry ovider Office Visit Departed [facility] September 08, 2016 September 08, 2016 Rena [facility] 12:00am Conver leny ovider Office Visit Departed [facility] September 07, 2016 September 07, 2016 8:18am Myla miller [facility] Services 6:28am Abisai Care Departed [facility] July 21July 21, 2016 Rena [facility] 2017 12:00am Conv ersion ovider Office Visit Departed [facility] July 14July 14, 2016 Rena [facility] 2017 12:00am Conv ersion ovider Office Visit Departed [facility] July 07July 07, 2016 William kraft [facility] 2017 9:12am 9:13am Albert jellyy ovider Office Visit Departed [facility] July 07July 07, 2016 Rena [facility] 2017 12:00am Conv ersion ovider Office Visit Departed [facility] June 30, 2016 June 30, 2016 8:14 am Crystal [facility] 8:13am Ricardo ry ovider Office Visit Departed [facility] June 30, 2016 June 30, 2016 Abril gonzalez [facility] 12:00am Conver leny ovider Office Visit Departed [facility] June 29, 2016 June 29, 2016 9[facility] Abisai Care Registered [facility] May 24, Crystal [facility] Ophthalmology 2017 2:52pm Norris kraft Departed [facility] May 24, May 24, 2016 Santos holden [facility] 2017 12:00am Conv ersion ovider Office Visit Registered [facility] March 05, Mirela he, [facility] 2015 8:00am Barbara Departed [facility] Lifestyle March 05March 05, 2016 Sunil collins, [facility] Medicine 2016 12:00am Nidia ovider Office Visit Registered [facility] February 26, Wendy burgess [facility] 2016 8:00am Barbara Departed [facility] February 26February 27, 2016 Angel terry [facility] Medicine 2015 12:00am Nidia ovider Office Visit Departed [facility] February 23February 24, 2016 Jorge Luis santizo [facility] 2015 12:00am Yen juan [place] Office Visit Registered [facility] February 19, [facility] 8:00am Barbara Departed [facility] February 19February 20, 2016 Angel terry [facility] Medicine 2015 12:00am Nidia ovider Office Visit Departed [facility] February 12February 13, 2016 Anupama sarmiento [facility] Medicine 2015 12:00am Convers ion ovider Office Visit Registered [facility] February 05, [facility] 2015 8:00am Barbara Departed [facility] February 05February 06, 2016 Angel terry [facility] Medicine 2015 12:00am Nidia ovider Office Visit Departed [facility] January 10January 11, 2016 Sylvain corcoran [facility] Medicine 2015 12:00am Jovana ovider Office Visit Departed [facility] December 24December 24, 2013 Zonia bustillos [facility] Primary Care 2013 12:00am Conve rstrevon ovider Office Visit Registered [facility] January 30, [facility] 2012 3:54pm Russel Discharged [facility] Physical January 30April 30, 2013 [facility] Therapy 2012 12:45pm 10:50am Russel Registered [facility] January 23, [facility] 2012 11:51am Duglas Discharged [facility] Physical August 14October 18, 2012 6:58am Linden [facility] Therapy 2012 1:15pm Russel Registered [facility] January 09, Echo parsons [facility] 2011 12:23pm Edwardo julian Registered [facility] July 13, [facility] 2012 10:14am Barbara Departed [facility] Chronic Disease January 08January 08, 2 010 [facility] 2009 2:20pm 11:59pm Barbara Departed [facility] Chronic Disease December 15December 15, 2009 [facility] 2009 9:45am 11:59pm Barbara Departed [facility] Chronic Disease December 08December 08, 2009 [facility] 2009 10:25am 11:59pm Barbara Departed [facility] Chronic Disease December 01December 01, 2009 [facility] 2009 9:20am 11:59pm Barbara Departed [facility] Chronic Disease November 10, 2009 November 10, 2009 W [facility] 9:21am 11:59pm Barbara Discharged [facility] August 13August 27, 2009 1:33pm PC P, of [facility] 2009 1:55pm Choice Departed Ismael Swain May 28May 28, 2009 PCP , of [facility] 2009 2:00pm 11:59pm Choice Departed [facility] JULES Guevara December 27December 27, 8 [facility] 2007 12:00am Edwardo d Departed [facility] CONV Misc Comp April 24April 24, [...] scriber Constitution Party Constitution Party Id Id [facility] KIT digital BRYCE [id number] Self/Same as BRYCE HILL [id number] OUT OF [facility] MEDICARE Medicare BRYCE [id number] Self/Same as BRYCE HILL [id number] OUT (DO NOT Primary LIZ Patient USE) MEDICARE Medicare BRYCE [id number] Self/Same as BRYCE LIZ 3N [id number] PART A AND Primary LIZ Patient B COVERAGE SELF PAY Personal [employer] BRYCE [id number] Self/Same as BRYCE HILL [id number] HEALTH CARE LIZ Patient [employer] BRYCE [id number] Self/Same as BRYCE HILL [id number] HEALTH (DO LIZ Patient NOT USE) Plan [...] 99.0 F 97.6 F-99.6 F March 10 9 11:13am Pulse 85 BPM 60-100 March 10 11:13am Respiration 18 RPM 12-24 March 10 9 11:13am Pulse Oximetry 98 % 95-100 March 10 11:13am Blood Pressure Systolic 128 100-140 March 10, 2019 11:13am Blood Pressure Diastolic 72 50-85 [facility] 2018 11:13am Body Mass Index 32.1 March 10 11:13am
--- OUTSIDE RECORDS SUMMARY | 2020-09-28 14:25 | XMS_ITS | Continuity of Care Document ---
:1945 Author Organization [facility] Address [address] [place] [address] Care Team Providers Name Role Phone [facility] Primary Care Physician Unavailable Maggy Rojas Attending [...] 8:06 am Pt has a Power of Mission Manager? Yes June 29 8:06am Chief Complaint and Reason for Visit Encounter Admit Date Chief Complaint Reason for Visit Departed Surgical September 07, 2016 6:28am COMBINED FORMS OF [...] Discharge/Departure Atte nding Date Date Provider Departed [facility] September 08, 2016 September 08, 2016 8:06am Crystal [facility] 8:05am Ricardo martinez Office Visit Departed [facility] Surgical September 07, 2016 September 07, 2016 8:18am Myla miller [facility] Services 6:28am Abisai Care Departed [facility] July 07July 07, 2016 9:13am Crystal [facility] 2017 9:12am Albert martinez Office Visit Departed [facility] June 30, 2016 June 30, 2016 8:14 am Crystal [facility] 8:13am Ricardo martinez Office Visit Departed [facility] Surgical June 29, 2016 June 29, 2016 9:[facility]am [facility] Abisai Zepeda Registered [facility] May 24, Crystal [facility] Ophthalmology 2016 2:52pm Norris kraft Registered [facility] March 05, Mirela he, [facility] 2015 8:00am Barbara Registered [facility] February 26, Wendy burgess, [facility] 2015 8:00am Barbara Registered [facility] February 19, [facility] 2015 8:00am Barbara Registered [facility] February 05, Wendy burgess, [facility] 2015 8:00am Barbara Functional Status No known functional status. Immunizations No known immunizations. Payers Payer Name Policy Type Covered Covered Relationship Subscriber Sub scriber Green Party Green Party Id Id MEDICARE Medicare BRYCE [id number] Self/Same as BRYCE HILL [id number] OUT (DO NOT Primary LIZ Patient USE) MEDICARE Medicare BRYCE [id number] Self/Same as BRYCE HILL [id number] PART A AND Primary LIZ Patient B COVERAGE SELF PAY Personal [employer] BRYCE [id number] Self/Same as BRYCE HILL [id number] HEALTH CARE LIZ Patient [employer] BRYCE [id number] Self/Same as BRYCE HILL [id number] HEALTH (DO LIZ Patient NOT USE) Plan [...]
--- OUTSIDE RECORDS SUMMARY | 2020-09-28 14:25 | XMS_ITS | Continuity of Care Document ---
:1945 Author Organization [facility] Address [address] [place] [address] Care Team Providers Name Role Phone [facility] Primary Care Physician Unavailable Mila Fernandez Attending [...] have a copy on file here at [facility]? Yes Zonia 2016 8:06am Does patient have an Advanced Directive? Yes June 29, 2016 8:06am Pt has a Living Will? Yes June 29, 2016 8:06 am Pt has a Power of Heel Former? Yes June 29 7 8:06am Chief Complaint [...] nding Date Date Provider Departed [facility] May 10May 10, 2018 Sumanth rodriguez Physician/[facility] Orthopedics 2019 9:13am 9:14am Juvencio ovider Office Visit Departed [facility] April 13April 13, 2018 Conchita sweet [facility] Orthopedics 2017 1:53pm 1:54pm Jamel ovider Office Visit Departed [facility] April 09April 09, 2018 Mack smith [facility] 2017 12:08pm 12:09pm [facility] Departed [facility] March 26March 26, 2018 Mack smith [facility] Orthopedics 2018 8:52am 8:53am Jamel ovider Office Visit Discharged [facility] March 21April 25, 2018 [facility] 2017 10:30am 11:29am Jamel Departed [facility] March 13March 13, 2018 Conchita sweet [facility] Orthopedics 2017 9:05am 9:06am Jamel ovider Office Visit Departed [facility] February 27February 27, 2018 Art kraft [facility] 2017 10:03am 10:04am Jamel Orthopedics Departed [facility] February 27February 27, 2018 Mack smith [facility] Orthopedics 2017 9:24am 9:25am Jamel ovider Office Visit Departed [facility] February 22February 22, 2018 And letitia Physician/[facility]gent [facility] 2017 8:59am 9:00am Nyasia juan [place] Office Visit Departed [facility] February 22February 22, 2018 [facility] 2017 8:55am 10:19am [place] Discharged [facility] February 20March 12, 2018 [facility] 2017 9:30am 11:29am Barbara Departed [facility] February 08February 08, 2018 Cassandra hernandez [facility] 2018 9:41am 9:42am Gianna medranoe ovider Office Visit Departed [facility] December 12December 12, 2017 Eugenie bryan [facility] 2018 11:08am 11:09am Kaitlynn piña ovider Office Visit Departed [facility] December 12December 12, [facility] 2017 7:45am 7:46am Kristina Departed [facility] Emergency November 01, 2017 November 01, 2017 11:28a m [facility] Department 6:46am Departed [facility] October 03, 2017 October 03, 2017 10:4 3am Yoel [facility] 10:42am Yen martinez [place] Office Visit Departed [facility] October 03, 2017 October 03, 2017 11:4 5am [facility] 10:36am [place] Functional Status No known functional status. Immunizations No known immunizations. Payers Payer Name Policy Type Covered Covered Relationship Subscriber Sub scriber Constitution Party Constitution Party Id Id [facility] [employer] BRYCE [id number] Self/Same as BRYCE HILL [id number] OUT OF [place] Patient STATE MEDICARE Medicare BRYCE [id number] Self/Same as BRYCE HILL [id number] OUT (DO NOT Primary LIZ Patient USE) MEDICARE Medicare BRYCE [id number] Self/Same as BRYCE HILL 3N [id number] PART A AND Primary LIZ Patient B COVERAGE SELF PAY Personal [employer] BRYCE [id number] Self/Same as BRYCE HILL [id number] HEALTH CARE LIZ Patient [employer] BRYCE [id number] Self/Same as BRYCE HILL [id number] HEALTH (DO LIZ Patient NOT USE) Plan [...] 74 50-85 [facility] 2017 9:10am Body Mass Index n/a
--- OUTSIDE RECORDS SUMMARY | 2020-09-28 14:25 | XMS_ITS | Continuity of Care Document ---
:1945 Author Organization [facility] Address [address] [place] [address] Care Team Providers Name Role Phone Juandignity [...] 8:06 am Pt has a Power of Flume Worker? Yes June 29 8:06am Chief Complaint [...] Discharge/Departure Atte nding Date Date Provider Departed [facility] April 13April 13, 2018 Conchita sweet [facility] 2017 1:53pm 1:54pm Jamel ovider Office Visit Departed [facility] April 09April 09, 2018 Mack smith [facility] 2017 12:08pm 12:09pm [facility] Departed [facility] March 26March 26, 2018 Mack smith [facility] 2017 8:52am 8:53am Jamel ovider Office Visit Discharged [facility] March 21April 25, 2018 [facility] 10:30am 11:29am Jamel Departed [facility] March 13March 13, 2018 Conchita sweet [facility] 2017 9:05am 9:06am Jamel ovider Office Visit Departed [facility] February 27February 27, 2018 Art kraft [facility] 2017 10:03am 10:04am Jamel Orthopedics Departed [facility] February 27February 27, 2018 Mack smith [facility] 2017 9:24am 9:25am Jamel ovider Office Visit Departed [facility] February 22February 22, 2018 And letitia [facility] 2017 8:59am 9:00am Nyasia chineduer [place] Office Visit Departed [facility] February 22February 22, [facility] 2017 8:55am 10:19am Albans Discharged [facility] February 20March 12, 2018 [facility] 2017 9:30am 11:29am Barbara Departed [facility] February 08February 08, 2018 Cassandra hernandez [facility] 2018 9:41am 9:42am Gianna maldonado ovider Office Visit Departed [facility] December 12, December 12, 2017 Eugenie bryan [facility] 2017 11:08am 11:09am Kaitlynn piña ovider Office Visit Departed [facility] Pathology December 12December 12, 2017 [facility] 2017 7:45am 7:46am Kristina Departed [facility] Emergency November 01, 2017 November 01, 2017 11:28a m [facility] Department 6:46am Departed [facility] October 03, 2017 October 03, 2017 10:4 3am Yoel [facility] 10:42am Yen juan [place] Office Visit Departed [facility] October 03, 2017 October 03, 2017 11:4 5am [facility] 10:36am [place] Functional Status No known functional status. Immunizations No known immunizations. Payers Payer Name Policy Type Covered Covered Relationship Subscriber Sub scriber Green Party Green Party Id Id [facility] [employer] BRYCE [id number] Self/Same as BRYCE HILL [id number] OUT OF [place] Patient STATE MEDICARE Medicare BRYCE [id number] Self/Same as BRYCE HILL [id number] OUT (DO NOT Primary LIZ Patient USE) MEDICARE Medicare BRYCE [id number] Self/Same as BRYCE HILL 3N [id number] PART A AND Primary LIZ Patient B COVERAGE SELF PAY Personal [email or web address] BRYCE [id number] Self/Same as BRYCE HILL [id number] HEALTH CARE LIZ Patient [email or web address] BRYCE [id number] Self/Same as BRYCE HILL [id number] HEALTH (DO LIZ Patient NOT USE) Plan [...]
--- OUTSIDE RECORDS SUMMARY | 2020-09-28 14:25 | XMS_ITS | Continuity of Care Document ---
:1945 Author Organization Address [address] [place] [address] Care Team Providers Name Role Phone Zoraida [...] have a copy on file here at [facility]? Yes M 2016 8:06am Does patient have an Advanced Directive? Yes June 29, 2016 8:06am Pt has a Living Will? Yes June 29, 2016 8:06 am Pt has a Power of Case Sealer? Yes June 29 8:06am Chief Complaint and [...] Atte nding Date Date Provider Departed [facility] March 13March 13, 2018 Conchita [facility] 2017 9:05am 9:06am Jamel cheer Office Visit Registered [facility] 1:35pm Jamel Departed [facility] February 27February 27, [facility] 10:03am 10:04am Jamel Orthopedics Departed [facility] February 27February 27, 2018 Mack smith [facility] 2017 9:24am 9:25am Jamel ovider Office Visit Departed [facility] February 22February 22, 2018 And letitia [facility] 2017 8:59am 9:00am Nyasia martinez [place] Office Visit Departed [facility] February 22February 22, [facility] 2017 8:55am 10:19am Albadriano Discharged [facility] February 20March 12, 2018 [facility] 2017 9:30am 11:29am Barbara Departed [facility] February 08February 08, 2018 Cassandra hernandez [facility] 2018 9:41am 9:42am Gianna maldonado ovider Office Visit Departed [facility] December 12December 12, 2017 Eugenie bryan [facility] 2018 11:08am 11:09am Kaitlynn piña ovider Office Visit Departed [facility] Pathology December 12December 12, [facility] 2018 7:45am 7:46am Kristina Departed [facility] Emergency November 01, 2017 November 01, 2017 11:28a m [facility] Department 6:46am Departed [facility] October 03, 2017 October 03, 2017 10:4 3apatrica Diallo [facility] 10:42am Yen Freedman Office Visit Departed [facility] October 03, 2017 October 03, 2017 11:4 5am [facility] 10:36am Jasmina Functional Status No known functional status. Immunizations No known immunizations. Payers Payer Name Policy Type Covered Covered Relationship Subscriber Sub scriber Republican Republican Id Id MEDICARE Medicare BRYCE [id number] Self/Same as BRYCE HILL [id number] OUT (DO NOT Primary LIZ Patient USE) MEDICARE Medicare BRYCE [id number] Self/Same as BRYCE HILL 3N [id number] PART A AND Primary LIZ Patient B COVERAGE SELF PAY Personal [employer] BRYCE [id number] Self/Same as BRYCE HILL [id number] HEALTH CARE LIZ Patient Party [employer] Here BRYCE [id number] Self/Same as BRYCE HILL [id number] HEALTH (DO LIZ Patient NOT USE) Plan [...] 2018 9:10am Blood Pressure Diastolic 74 50-85 Novem 2017 9:10am Body Mass Index n/a
--- OUTSIDE RECORDS SUMMARY | 2020-09-28 14:25 | XMS_ITS | Continuity of Care Document ---
:1945 Author Organization [facility] Address [address] [place] [address] Care Team Providers Name Role Phone Out [...] have a copy on file here at [facility]? Yes Zonia 2016 8:06am Does patient have an Advanced Directive? Yes June 29, 2016 8:06am Pt has a Living Will? Yes June 29, 2016 8:06 am Pt has a Power of Ferryboat Ticket Taker? Yes June 29 8:06am Chief Complaint and [...] Discharge/Departure Atte nding Date Date Provider Departed [facility] May 10May 10, 2018 Sumanth rodriguez Physician/[facility] Orthopedics 2019 9:13am 9:14am Juvencio ovider Office Visit Departed [facility] April 13April 13, 2018 Conchita sweet [facility] Orthopedics 2017 1:53pm 1:54pm Jamel ovider Office Visit Departed [facility] April 09April 09, 2018 Mack smith [facility] 2017 12:08pm 12:09pm [facility] Departed [facility] March 26March 26, 2018 Mack smith [facility] Orthopedics 2018 8:52am 8:53am Jamel ovider Office Visit Discharged [facility] March 21April 25, 2018 [facility] 2017 10:30am 11:29am Jamel Departed [facility] March 13March 13, 2018 Conchita sweet [facility] Orthopedics 2017 9:05am 9:06am Jamel ovider Office Visit Departed [facility] February 27February 27, 2018 Art kraft [facility] 2017 10:03am 10:04am Jamel Orthopedics Departed [facility] February 27February 27, 2018 Mack smith [facility] Orthopedics 2017 9:24am 9:25am Jamel ovider Office Visit Departed [facility] February 22February 22, 2018 And letitia Physician/[facility] 2017 8:59am 9:00am Nyasia juan [place] Office Visit Departed [facility] February 22February 22, [facility] 2017 8:55am 10:19am [place] Discharged [facility] February 20March 12, 2018 [facility] 2017 9:30am 11:29am Barbara Departed [facility] February 08February 08, 2018 Cassandra hernandez [facility] 2018 9:41am 9:42am Gianna medranoe ovider Office Visit Departed [facility] December 12December 12, 2017 Eugenie bryan [facility] 2018 11:08am 11:09am Kaitlynn piña ovider Office Visit Departed [facility] December 12December 12, [facility] 2017 7:45am 7:46am Kristina Departed [facility] Emergency November 01, 2017 November 01, 2017 11:28a m [facility] Department 6:46am Departed [facility] October 03, 2017 October 03, 2017 10:4 3am Yoel [facility] 10:42am Yen martinez [place] Office Visit Departed [facility] October 03, 2017 October 03, 2017 11:4 5am [facility] 10:36am [place] Functional Status No known functional status. Immunizations No known immunizations. Payers Payer Name Policy Type Covered Covered Relationship Subscriber Sub scriber Alliance Party Alliance Party Id Id [facility] [employer] BRYCE [id number] Self/Same as BRYCE HILL [id number] OUT OF [place] Patient STATE MEDICARE Medicare BRYCE [id number] Self/Same as BRYCE HILL [id number] OUT (DO NOT Primary LIZ Patient USE) MEDICARE Medicare BRYCE [id number] Self/Same as BRYCE HILL 3N [id number] PART A AND Primary LIZ Patient B COVERAGE SELF PAY Personal [employer] BRYCE [id number] Self/Same as BRYCE HILL [id number] HEALTH CARE LIZ Patient [employer] BRYCE [id number] Self/Same as BRYCE HILL [id number] HEALTH (DO LIZ Patient NOT USE) Plan [...] Blood Pressure Diastolic 74 50-85 [facility] 2017 9:10am Body Mass Index n/a
--- OUTSIDE RECORDS SUMMARY | 2020-09-28 14:25 | XMS_ITS | Continuity of Care Document ---
:1945 Author Organization [facility] Address [address] [place] [address] Care Team Providers Name Role Phone Out of Town Primary Care Physician Unavailable Benedict Otot Attending Physician Allergies, Adverse Reactions, Alerts Allergen [...] Admit Date Chief Complaint Reason for Visit Registered Clinical October 24, 2019 8:49am COVID19 CURBSIDE [...] Discharge/Departure Atte nding Date Date Provider Registered [facility], [facility] Russel Dep[facility] March 10March 10, 2019 Siva valle [facility] 2018 11:09am 11:10am Abbey Freedman Office Visit Departed [facility] March 10March 10, [address] [facility] [address] [facility] 2018 11:07am 12:00pm Jasmina Functional Status Query Response Date Recorded Comment Living Situation Alone March 10, 2019 11:13am Immunizations No known immunizations. Payers Payer Name Policy Type Covered Covered Relationship Subscriber Sub scriber Libertarian Libertarian Id Id [facility] [employer] BRYCE [id number] Self/Same as BRYCE HILL [id number] OUT OF [place] Patient STATE MEDICARE Medicare BRYCE [id number] Self/Same as BRYCE HILL [id number] OUT (DO NOT Primary LIZ Patient USE) MEDICARE Medicare BRYCE [id number] Self/Same as BRYCE HILL 3N [id number] PART A AND Primary LIZ Patient B COVERAGE SELF PAY Personal [employer] BRYCE [id number] Self/Same as BRYCE HILL [id number] HEALTH CARE LIZ Patient [employer] BRYCE [id number] Self/Same as BRYCE HILL [id number] HEALTH (DO LIZ Patient NOT USE) Plan [...] 2019 11:13am Blood Pressure Diastolic 72 50-85 [facility] 2018 11:13am Body Mass Index 32.1 March 10 11:13am
--- OUTSIDE RECORDS SUMMARY | 2020-09-28 14:25 | XMS_ITS | Continuity of Care Document ---
:1945 Author Organization [facility] Address [address] [place] [address] Care Team Providers Name Role Phone Zoraida [...] Active Problems Medical Problem Onset Date Status Post concussion syndrome Active Inactive/Resolved Problems Medical Problem Onset Date Status Acute UTI Inactive Procedures Procedure Date Status MRI Brain w/wo Contrast November 01, [address] Head w/o Contrast November 01, 2017 [...] [place] a [place] [facility] Yes 2016 8:06am Does patient have an Advanced Directive? Yes June 29, 2016 8:06am Pt has a Living Will? Yes June 29, 2016 8:06 am Pt has a Power of Health Education Aide? Yes June 29 8:06am Chief Complaint and Reason for Visit Encounter Admit Date Chief Complaint Reason for Visit Departed Emergency November 01, 2017 6:46am [facility] Discharge Instructions No known hospital discharge [...] Discharge/Departure Atte nding Date Date Provider Departed [facility] Emergency November 01, 2017 November 01, 2017 11:28a m [facility] Department 6:46am Departed [facility] October 03, 2017 October 03, 2017 10:4 3am Yoel [facility] 10:42am Yen Freedman Office Visit Departed [facility] October 03, 2017 October 03, 2017 11:4 5am [facility] 10:36am Jasmina Functional Status No known functional status. Immunizations No known immunizations. Payers Payer Name Policy Type Covered Covered Relationship Subscriber Sub scriber Constitution Party Constitution Party Id Id MEDICARE Medicare BRYCE [id number] Self/Same as BRYCE HLIL [id number] OUT (DO NOT Primary LIZ Patient USE) MEDICARE Medicare BRYCE [id number] Self/Same as BRYCE HILL [id number] PART A AND Primary LIZ Patient B COVERAGE SELF PAY Personal [employer] BRYCE [id number] Self/Same as BRYCE HILL [id number] HEALTH CARE LIZ Patient [employer] BRYCE [id number] Self/Same as BRYCE HILL [id number] HEALTH (DO HILL Patient NOT USE) Plan of Care Instructions Postconcussion Syndrome (DC) Social History Query Response Start Date Stop [...]
--- OUTSIDE RECORDS SUMMARY | 2020-09-28 14:25 | XMS_ITS | Continuity of Care Document ---
:1945 Author Organization [facility] Address [address] [place] [address] Care Team Providers Name Role Phone [facility] Primary Care Physician Unavailable Maggy Rojas Attending [...] 8:06 am Pt has a Power of Radiology Specialist? Yes June 29 8:06am Chief Complaint and Reason for Visit Encounter Admit Date Chief Complaint Reason for Visit Departed Physician/Provider June 30, 2016 8:13am PBB Office Visit Hospital Discharge Instructions No known [...] Discharge/Departure Atte nding Date Date Provider Departed [facility] June 30, 2016 June 30, 2016 8:14 am Physician Crystal/[facility] Ophthalmology 8:13am Ricardo martinez Office Visit Departed [facility] June 29, 2016 June 29, 2016 9:49am [facility] Services 8:00am Abisai Zepeda Registered [facility] 2:52pm Norris kraft Functional Status No known functional status. Immunizations No known immunizations. Payers Payer Name Policy Type Covered Covered Relationship Subscriber Sub scriber Alliance Party Alliance Party Id Id MEDICARE Medicare BRYCE [id number] Self/Same as BRYCE HILL [id number] OUTPATIENT Primary LIZ Patient *DON'T USE MEDICARE PART Medicare BRYCE [id number] Self/Same as BRYCE HILL [id number] A AND B Primary LIZ Patient COVERAGE SELF PAY Personal [employer] BRYCE [id number] Self/Same as BRYCE HILL [id number] CARE LIZ Patient [facility] [employer] BRYCE [id number] Self/Same as BRYCE LIZ [id number] (DO NOT USE) LIZ Patient Plan of [...]
--- OUTSIDE RECORDS SUMMARY | 2020-09-28 14:25 | XMS_ITS | Continuity of Care Document ---
:1945 Author Organization [facility] Address [address] [place] [address] Care Team Providers Name Role Phone [facility] Primary Care Physician Unavailable Mila Fernandez Attending Physician Unavailable Allergies, Adverse Reactions, Alerts [...] 01 8 Discontinued DAY 2017 Problem List Inactive/Resolved [...] Discharge/Departure Atte nding Date Date Provider Departed [facility] May 10May 10, 2018 Sumanth rodriguez [facility] 2019 9:13am 9:14am Juvencio ovider Office Visit Departed [facility] April 13April 13, 2018 Conchita sweet [facility] [place] [facility] 2017 1:53pm 1:54pm Jamel ovider Office Visit Departed [facility] April 09April 09, 2018 Mack smith [facility] 2017 12:08pm 12:09pm [facility] Departed [facility] March 26March 26, [address] [facility]opedics 2017 8:52am 8:53am Jamel ovider Office Visit Discharged [facility] March 21April 25, [facility] 10:30am 11:29am Jamel Departed [facility] March 13March 13, [address] [facility]ics 2017 9:05am 9:06am Jamel ovider Office Visit Departed [facility] February 27February 27, 2018 Art kraft [facility] 2017 10:03am 10:04am Jamel Orthopedics Departed [facility] February 27February 27, 2018 Mack smith [facility] Orthopedics 2017 9:24am 9:25am Jamel ovider Office Visit Departed [facility] February 22February 22, 2018 And letitia [facility] 2017 8:59am 9:00am Nyasia ovider [place] Office Visit Departed [facility] February 22February 22, [facility] 2017 8:55am 10:19am Albans Discharged [facility] February 20March 12, 2018 [facility] 2017 9:30am 11:29am Barbara Departed [facility] February 08February 08, 2018 Cassandra hernandez [facility]ician[facility] [place] [facility]ermatology 2018 9:41am 9:42am Gianna maldonado ovider Office Visit Departed [facility] December 12December 12, 2017 Eugenie bryan [facility]ician[facility] [place] [facility] 2018 11:08am 11:09am Kaitlynn piña ovider Office Visit Departed [facility] December 12December 12, [facility] 7:45am 7:46am [facility], 2017 November 01, 2017 11:28a m [facility] Department 6:46am Departed [facility] October 03, 2017 October 03, 2017 10:4 3am Yoel [facility] 10:42am Yen juan Freedman Office Visit Departed [facility] October 03, 2017 October 03, 2017 11:4 5am [facility] 10:36am Alb[place] Functional Status No known functional status. Immunizations No known immunizations. Payers Payer Name Policy Type Covered Covered Relationship Subscriber Sub scriber Alliance Party Alliance Party Id Id [employer] BRYCE [id number] Self/Same as BRYCE HILL [id number] OUT OF [place] Patient STATE MEDICARE Medicare BRYCE [id number] Self/Same as BRYCE HILL [id number] OUT (DO NOT Primary LIZ Patient USE) MEDICARE Medicare BRYCE [id number] Self/Same as BRYCE HILL 3N [id number] PART A AND Primary LIZ Patient B COVERAGE SELF PAY Personal [employer] BRYCE [id number] Self/Same as BRYCE HILL [id number] HEALTH CARE LIZ Patient [employer] BRYCE [id number] Self/Same as BRYCE HILL [id number] HEALTH (DO LIZ Patient NOT USE) Plan [...]
--- OUTSIDE RECORDS SUMMARY | 2020-09-28 14:25 | XMS_ITS | Continuity of Care Document ---
:1945 Author Organization [facility] Address [address] [place] [address] Care Team Providers Name Role Phone Zoraida [...] [place] [facility] M 2016 8:06am Does patient have an Advanced Directive? Yes June 29, 2016 8:06am Pt has a Living Will? Yes June 29, 2016 8:06 am Pt has a Power of Foil Cutter? Yes June 29 8:06am Chief Complaint and [...] Discharge/Departure Atte nding Date Date Provider Departed [facility] March 13March 13, 2018 Conchita sweet [facility] 2017 9:05am 9:06am Jamel cheer Office Visit Registered [facility] 2017 1:35pm Jamel Departed [facility] February 27February 27, 2018 [facility] 10:03am 10:04am Jamel Orthopedics Departed [facility] February 27February 27, 2018 Mack smith [facility] 2017 9:24am 9:25am Jamel ovider Office Visit Departed [facility] February 22February 22, 2018 And letitia [facility] 2017 8:59am 9:00am Nyasia martinez [place] Office Visit Departed [facility] February 22February 22, [facility] 2017 8:55am 10:19am Albadriano Discharged [facility] February 20March 12, 2018 [facility] 9:30am 11:29am Barbara Departed [facility] February 08February 08, 2018 Cassandra hernandez [facility] 2018 9:41am 9:42am Gianna maldonado ovider Office Visit Departed [facility] December 12December 12, 2017 Eugenie bryan [facility] 2018 11:08am 11:09am Kaitlynn piña ovider Office Visit Departed [facility] Pathology December 12December 12, [facility] 2018 7:45am 7:46am Kristina Departed [facility] Emergency November 01, 2017 November 01, 2017 11:28a m [facility] Department 6:46am Departed [facility] October 03, 2017 October 03, 2017 10:4 3apatrica Diallo [facility] 10:42am Yen Freedman Office Visit Departed [facility] October 03, 2017 October 03, 2017 11:4 5am [facility] 10:36am Jasmina Functional Status No known functional status. Immunizations No known immunizations. Payers Payer Name Policy Type Covered Covered Relationship Subscriber Sub scriber Libertarian Libertarian Id Id MEDICARE Medicare BRYCE [id number] Self/Same as BRYCE HILL [id number] OUT (DO NOT Primary LIZ Patient USE) MEDICARE Medicare BRYCE [id number] Self/Same as BRYCE HILL 3N [id number] PART A AND Primary ILZ Patient B COVERAGE SELF PAY Personal [employer] BRYCE [id number] Self/Same as BRYCE HILL [id number] HEALTH CARE LIZ Patient [employer] BRYCE [id number] Self/Same as BRYCE HILL [id number] HEALTH (DO LIZ Patient NOT USE) Plan [...]
--- OUTSIDE RECORDS SUMMARY | 2020-09-28 14:25 | XMS_ITS | Continuity of Care Document ---
:1945 Author Organization [facility] Address [address] [place] [address] Care Team Providers Name Role Phone Maggy Rojas Attending Physician Out of Town Primary Care Physician Unavailable [...] 8:06 am Pt has a Power of Cash Applications Representative? Yes June 29 8:06am Chief Complaint and [...] Discharge/Departure Atte nding Date Date Provider Departed [facility] September 08, 2016 September 08, 2016 8:06am Crystal [facility] 8:05am Ricardo martinez Office Visit Departed [facility] Surgical September 07, 2016 September 07, 2016 8:18am Myla miller [facility] Services 6:28am Abisai Care Departed [facility] July 07July 07, 2016 9:13am Crystal [facility] 2017 9:12am Albert martinez Office Visit Departed [facility] June 30, 2016 June 30, 2016 8:14 am Crystal [facility] 8:13am Ricardo martinez Office Visit Departed [facility] Surgical June 29, 2016 June 29, 2016 9:[facility] 8:00am Abisai Zepeda Registered [facility] May 24, Crystal [facility] Ophthalmology 2016 2:52pm Norris kraft Registered [facility] March 05, Mirela he, [facility] 2015 8:00am Barbara Registered [facility] February 26, Wendy burgess, [facility] 2015 8:00am Barbara Registered [facility] February 19, [facility] Barbara Registered [facility] February 05, Wendy burgess, [facility] 2015 8:00am Barbara Functional Status No known functional status. Immunizations No known immunizations. Payers Payer Name Policy Type Covered Covered Relationship Subscriber Sub scriber Libertarian Libertarian Id Id MEDICARE Medicare BRYCE [id number] Self/Same as BRYCE HILL [id number] OUT (DO NOT Primary LIZ Patient USE) MEDICARE Medicare BRYCE [id number] Self/Same as BRYCE HILL [id number] PART A AND Primary LIZ Patient B COVERAGE SELF PAY Personal [email or web address] BRYCE [id number] Self/Same as BRYCE HILL [id number] HEALTH CARE LIZ Patient [email or web address] BRYCE [id number] Self/Same as BRYCE HILL [id number] HEALTH (DO LIZ Patient NOT USE) Plan [...]
--- OUTSIDE RECORDS SUMMARY | 2020-09-28 14:25 | XMS_ITS | Continuity of Care Document ---
:[address] [facility] Address [address] [place] [address] Care Team Providers Name Role Phone [facility] Primary Care Physician Unavailable Maggy Rojas Attending [...] 8:06 am Pt has a Power of Relationship Advisor? Yes June 29 8:06am Chief Complaint and Reason for Visit Encounter Admit Date Chief Complaint Reason for Visit Departed September 08, 2016 8:05am Provider Based Billing Physician/Provider Office Visit Hospital [...] Discharge/Departure Atte nding Date Date Provider Departed [facility] September 08, 2016 September 08, 2016 8:06am [facility] 8:05am Ricardo martinez Office Visit Departed [facility] Surgical September 07, 2016 September 07, 2016 8:18am Myla miller Surgical Day [facility] Services 6:28am Abisai Care Departed [facility] July 07July 07, 2016 9:13am Crystal [facility] 2017 9:12am Albert martinez Office Visit Departed [facility] June 30, 2016 June 30, 2016 8:14 am Physician [facility] 8:13am Ricardo martinez Office Visit Departed [facility] Surgical June 29, 2016 June 29, 2016 9:49am [facility]am Abisai Duane Registered [facility] May 24, Crystal [facility] Ophthalmology 2016 2:52pm Norris y Registered [facility] Life Style [facility] March 05, Mirela eh, [facility] 2015 8:00am Barbara Registered [facility] February 26, Wendy burgess, [facility] 2015 8:00am Barbara Registered [facility] Life [facility] February 19, Wendy burgess, [facility] 2015 8:00am Barbara Registered [facility] Life Style [facility] February 05, Wendy burgess, [facility] 2015 8:00am Barbara Functional Status No known functional status. Immunizations No known immunizations. Payers Payer Name Policy Type Covered Covered Relationship Subscriber Sub scriber Libertarian Libertarian Id Id MEDICARE Medicare BRYCE [id number] Self/Same as BRYCE HILL [id number] OUT (DO NOT Primary LIZ Patient USE) MEDICARE Medicare BRYCE [id number] Self/Same as BRYCE HILL [id number] PART A AND Primary LIZ Patient B COVERAGE SELF PAY Personal [employer] BRYCE [id number] Self/Same as BRYCE HILL [id number] HEALTH CARE LIZ Patient [employer] BRYCE [id number] Self/Same as BRYCE HILL [id number] HEALTH (DO LIZ Patient NOT USE) Plan [...]
--- OUTSIDE RECORDS SUMMARY | 2020-09-28 14:25 | XMS_ITS | Continuity of Care Document ---
:1945 Author Organization [facility] Address [address] [place] [address] Care Team Providers Name Role Phone [facility]ardo[facility]razo [facility] Primary Care Physician Unavailable Maggy Rojas [...] have a copy on file here at [facility]? Yes 2016 8:06am Does patient have an Advanced Directive? Yes June 29, 2016 8:06am Pt has a Living Will? Yes June 29, 2016 8:06 am Pt has a Power of Snuff Drier? Yes June 29 8:06am Chief Complaint and [...] Discharge/Departure Atte nding Date Date Provider Departed [facility] September 08, 2016 September 08, 2016 8:06am Crystal [facility] 8:05am Ricardo martinez Office Visit Departed [facility] Surgical September 07, 2016 September 07, 2016 8:18am Myla miller Surgical Day [facility] Services 6:28am Abisai Care Departed [facility] July 07July 07, 2016 9:13am Crystal [facility] 2017 9:12am Albert martinez Office Visit Departed [facility] June 30, 2016 June 30, 2016 8:14 am Physician [facility] 8:13am Ricardo martinez Office Visit Departed [facility] Surgical June 29, 2016 June 29, 2016 9:[facility]am [facility] Abisai Duane Registered [facility] May 24, Crystal [facility] Ophthalmology 2016 2:52pm Norris y Registered [facility] Life Style [facility] March 05, Mirela he, [facility] 2015 8:00am Barbara Registered [facility] Life Style [facility] February 26, Wendy burgess, [facility] 2015 8:00am Barbara Registered [facility] Life Style [facility] February 19, Wendy burgess, [facility] 2015 8:00am Barbara Registered [facility] Life Style [facility] February 05, Wendy burgess, [facility] 2015 8:00am Barbara Functional Status No known functional status. Immunizations No known immunizations. Payers Payer Name Policy Type Covered Covered Relationship Subscriber Sub scriber Republican Republican Id Id MEDICARE Medicare BRYCE [id number] Self/Same as BRYCE HILL [id number] OUT (DO NOT Primary LIZ Patient USE) MEDICARE Medicare BRYCE [id number] Self/Same as BRYCE HILL [id number] PART A AND Primary LIZ Patient B COVERAGE SELF PAY Personal [employer] BRYCE [id number] Self/Same as BRYCE HILL [id number] HEALTH CARE LIZ Patient [employer] BRYCE [id number] Self/Same as BRYCE HILL [id number] HEALTH (DO LIZ Patient NOT USE) Plan [...]
--- OUTSIDE RECORDS SUMMARY | 2020-09-28 14:25 | XMS_ITS | Continuity of Care Document ---
:1945 Author Organization [facility] Address [address] [place] [address] Care Team Providers Name Role Phone Zoraida [...] have a copy on file here at [facility]? Yes 2016 8:06am Does patient have an Advanced Directive? Yes June 29, 2016 8:06am Pt has a Living Will? Yes June 29, 2016 8:06 am Pt has a Power of Person Investigator? Yes June 29 8:06am Chief Complaint and [...] Discharge/Departure Atte nding Date Date Provider Departed [facility] December 12December 12, 2017 Eugenie bryan [facility] 2017 11:08am 11:09am Kaitlynn martinez Office Visit Departed [facility] Pathology December 12December 12, 2017 Suha [facility] 2017 7:45am 7:46am Kristina Departed [facility] Emergency November 01, 2017 November 01, 2017 11:28a m [facility] Department 6:46am Departed [facility] October 03, 2017 October 03, 2017 10:4 3am Yoel [facility] 10:42am Yen Freedman Office Visit Departed [facility] October 03, 2017 October 03, 2017 11:4 5am [facility] 10:36am [facility] Functional Status No known functional status. Immunizations No known immunizations. Payers Payer Name Policy Type Covered Covered Relationship Subscriber Sub scriber Democrat Democrat Id Id MEDICARE Medicare BRYCE [id number] Self/Same as BRYCE HILL [id number] OUT (DO NOT Primary LIZ Patient USE) MEDICARE Medicare BRYCE [id number] Self/Same as BRYCE HILL 3N [id number] PART A AND Primary LIZ Patient B COVERAGE SELF PAY Personal [employer] BRYCE [id number] Self/Same as BRYCE HILL [id number] HEALTH CARE LIZ Patient [employer] BRYCE [id number] Self/Same as BRYCE HILL [id number] HEALTH (DO LIZ Patient NOT USE) Plan of Care Instructions [...]
--- OUTSIDE RECORDS SUMMARY | 2020-09-28 14:25 | XMS_ITS | Continuity of Care Document ---
:1945 Author Organization [facility] Address [address] [place] [address] Care Team Providers Name Role Phone Out [...] Discharge/Departure Atte nding Date Date Provider Departed [facility] August 21August 21, 2018 8:52am Ajit [facility] 2018 8:51am Juvencio ovider Office Visit Departed [facility] August 21August 21, 2018 Rena [facility] 2018 12:00am Con version ovider ab Office Visit Departed [facility] August 20August 20, 2018 Rena [facility] Dermat[facility] 2018 12:00am Sukhdev michele ovider Office Visit Departed [facility] May 10May 10, 2018 Sumanth rodriguez [facility] 2018 9:13am 9:14am Juvencio ovider Office Visit Departed [facility] May 10May 10, 2018 Santos holden [facility] 2018 12:00am Con version ovider ab Office Visit Departed [facility] April 13April 13, 2018 Conchita sweet [facility] 2017 1:53pm 1:54pm Jamel ovider Office Visit Departed [facility] April 13April 13, 2018 Conchita sweet [facility] 2017 12:00am Nol an ovider ab Office Visit Departed [facility] April 11April 11, 2018 Conchita sweet [facility] 2017 12:00am Nol an ovider ab Office Visit Departed [facility] April 09April 09, 2018 [facility] 12:08pm 12:09pm [facility] Departed [facility] March 26March 26, 2018 Mack smith [facility] 2017 8:52am 8:53am Jamel ovider Office Visit Departed [facility] March 26March 26, 2018 Mack smith Physician[facility] 2018 12:00am Nol an ovider ab Office Visit Discharged [facility] March 21April 25, [address] [facility] 2017 10:30am 11:29am Jamel Departed [facility] March 13March 13, 2018 Conchita sweet [facility] 2018 9:05am 9:06am Jamel ovider Office Visit Departed [facility] March 13March 13, 2018 Conchita sweet [facility] 2017 12:00am Nol an ovider ab Office Visit Departed [facility] February 27February 27, 2018 Art kraft [facility] 2017 10:03am 10:04am Jamel Orthopedics Departed [facility] February 27February 27, 2018 [facility] 2017 9:24am 9:25am Jamel ovider Office Visit Departed [facility] February 27February 27, 2018 Mack smith [facility]ician[facility] 2018 12:00am Nol an ovider ab Office Visit Departed [facility] February 22February 22, 2018 And letitia Physician/[facility] 2018 8:59am 9:00am Nyasia ovider [facility] Office Visit Departed [facility] February 22February 22, [facility] 2018 8:55am 10:19am [facility] Discharged [facility] February 20March 12, 2018 [facility] 2017 9:30am 11:29am Barbara Departed [facility] February 08February 08, 2018 Cassandra hernandez, [facility]erm[facility] 2018 9:41am 9:42am Stepjorge l maldonado ovider Office Visit Departed [facility] February 08February 08, 2018 Santos holden, [facility] 2018 12:00am Sukhdev leny ovider Office Visit Departed [facility] December 12December 12, 2017 Eugenie bryan, [facility] 2018 11:08am 11:09am Kaitlynn piña ovider Office Visit Departed [facility] Pathology December 12December 12, [facility] 7:45am 7:46am Kristina Departed [facility] December 12December 12, 2017 Anupama sarmiento, [facility] 2018 12:00am Sukhdev leny ovider Office Visit Departed [facility] Emergency November 01, 2017 November 01, 2017 11:28a m [facility] Department 6:46am Departed [facility] October 03, 2017 October 03, 2017 10:4 3am Yoel [facility] 10:42am Yen juan Wrenadriano Office Visit Departed [facility] October 03, 2017 October 03, 2017 11:4 5am [facility] 10:36am Jasmina Functional Status No known functional status. Immunizations No known immunizations. Payers Payer Name Policy Type Covered Covered Relationship Subscriber Sub scriber Alliance Party Alliance Party Id Id [email or web address] BRYCE [id number] Self/Same as BRYCE HILL [id number] [place] OF [place] Patient STATE MEDICARE Medicare BRYCE [id number] Self/Same as BRYCE HILL [id number] OUT (DO NOT Primary LIZ Patient USE) MEDICARE Medicare BRYCE [id number] Self/Same as BRYCE HILL 3N [id number] PART A AND Primary LIZ Patient B COVERAGE SELF PAY Personal [employer] BRYCE [id number] Self/Same as BRYCE HILL [id number] HEALTH CARE LIZ Patient mo9 ([employer]) BRYCE [id number] Self/Same as BRYCE HILL [id number] HEALTH (DO LIZ Patient NOT USE) Plan [...]
--- OUTSIDE RECORDS SUMMARY | 2020-09-28 14:25 | XMS_ITS | Continuity of Care Document ---
:1945 Author Organization [facility] Address [address] [place] [address] Care Team Providers Name Role Phone Out [...] Discharge/Departure Atte nding Date Date Provider Departed [facility] March 10March 10, 2019 Siva valle [facility] 2018 11:09am 11:10am Abbey Freedman Office Visit Departed [facility] March 10March 10, [address] [facility] [address] [facility] 2018 11:07am 12:00pm Jasmina Functional Status Query Response Date Recorded Comment Living Situation Alone March 10, 2019 11:13am Immunizations No known immunizations. Payers Payer Name Policy Type Covered Covered Relationship Subscriber Sub scriber Alliance Party Alliance Party Id Id [facility] [employer] BRYCE [id number] Self/Same as BRYCE HILL [id number] OUT OF [place] Patient STATE MEDICARE Medicare BRYCE [id number] Self/Same as BRYCE HILL [id number] OUT (DO NOT Primary LIZ Patient USE) MEDICARE Medicare BRYCE [id number] Self/Same as BRYCE HILL 3N [id number] PART A AND Primary LIZ Patient B COVERAGE SELF PAY Personal [employer] BRYCE [id number] Self/Same as BRYCE HILL [id number] HEALTH CARE LIZ Patient [employer] BRYCE [id number] Self/Same as BRYCE HILL [id number] HEALTH (DO LIZ Patient NOT USE) Plan [...] 2019 11:13am Blood Pressure Diastolic 72 50-85 [facility] 2018 11:13am Body Mass Index 32.1 March 10 11:13am
--- OUTSIDE RECORDS SUMMARY | 2020-09-28 14:25 | XMS_ITS | Continuity of Care Document ---
:1945 Author Organization [facility] Address [address] [place] [address] Care Team Providers Name Role Phone Out [...] developed and its performance characteristics determined by [facility]. It has not been cleared or [...] defined by the FDA Performed on t [employer] October 24, 2019 [facility] Is Pat ient Admitted or Awaiting Admission?:no Test Performing 10:00am lab [facility]: PARKING ENFORCEMENT OFFICER Site Test performed [place] [address] Chief Complaint and Reason for Visit Encounter [...] nding Date Date Provider Departed [facility] October 24, 2019 October 24, 2019 8:50am Sima nash, [facility] 8:49am Russel Departed [facility] March 10March 10, 2019 Siva valle, [facility] 2018 11:09am 11:10am Abbey Freedman Office Visit Departed [facility] March 10March 10, [address] [facility] [facility] 2018 11:07am 12:00pm Alb[facility] Functional Status Query Response Date Recorded Comment Living Situation Alone March 10, 2019 11:13am Immunizations No known immunizations. Payers Payer Name Policy Type Covered Covered Relationship Subscriber Sub scriber Republican Republican Id Id [employer] BRYCE [id number] Self/Same as BRYCE HILL [id number] [place] OF [place] Patient STATE MEDICARE Medicare BRYCE [id number] Self/Same as BRYCE HILL [id number] OUT (DO NOT Primary LIZ Patient USE) MEDICARE Medicare BRYCE [id number] Self/Same as BRYCE HILL 3N [id number] PART A AND Primary LIZ Patient B COVERAGE SELF PAY Personal [employer] BRYCE [id number] Self/Same as BRYCE HILL [id number] HEALTH CARE LIZ Patient [employer] BRYCE [id number] Self/Same as BRYCE HILL [id number] HEALTH (DO LIZ Patient NOT USE) Plan [...]
--- OUTSIDE RECORDS SUMMARY | 2020-09-28 14:25 | XMS_ITS | Continuity of Care Document ---
:1945 Author Organization [facility] Address [address] [place] [address] Care Team Providers Name Role Phone [facility] Physician Unavailable Mila Fernandez [...] have a copy on file here at [facility]? Yes Zonia 2016 8:06am Does patient have an Advanced Directive? Yes June 29, 2016 8:06am Pt has a Living Will? Yes June 29, 2016 8:06 am Pt has a Power of Topstitcher Zigzag? Yes June 29 7 8:06am Chief Complaint and Reason for Visit Encounter Admit Date Chief Complaint Reason for Visit Departed Clinical April 09, 2018 12:08pm LOW BACK PAIN M47.89 6 Hospital Discharge Instructions No known hospital discharge [...] Discharge/Departure Atte nding Date Date Provider Departed [facility] April 09April 09, 2018 Mack smith [facility] 2017 12:08pm 12:09pm [facility] Departed [facility] March 26March 26, 2018 Mack smith [facility] Orthoped[facility] 2017 8:52am 8:53am Jamel ovider Office Visit Registered [facility] 10:30am Jamel Departed [facility] March 13March 13, 2018 Conchita sweet [facility]oped[facility] 2017 9:05am 9:06am Jamel ovider Office Visit Departed [facility] February 27February 27, 2018 Art kraft [facility] 2017 10:03am 10:04am Jamel Orthopedics Departed [facility] February 27February 27, 2018 Mack smith [facility] 2018 9:24am 9:25am Jamel ovider Office Visit Departed [facility] February 22February 22, 2018 And letitia [facility] 2017 8:59am 9:00am Nyasia Freedman Office Visit Departed [facility] February 22February 22, [facility] 2017 8:55am 10:19am Alb[place] Discharged [facility] February 20March 12, 2018 Fabian owens [facility] 2017 9:30am 11:29am Barbara Departed [facility] February 08February 08, 2018 Cassandra hernandez [facility] 2017 9:41am 9:42am Gianna maldonado ovider Office Visit Departed [facility] December 12December 12, 2017 Eugenie bryan [facility] 2017 11:08am 11:09am Kaitlynn piña ovider Office Visit Departed [facility] 12December 12, [facility] 2017 7:45am 7:46am Kristina Departed [facility] Emergency November 01, 2017 November 01, 2017 11:28a m [facility] Department 6:46am Departed [facility] October 03, 2017 October 03, 2017 10:4 3am Yoel, [facility] 10:42am Yen juan [facility] Office Visit Departed [facility] October 03, 2017 October 03, 2017 11:4 5am [facility] 10:36am [facility] Functional Status No known functional status. Immunizations No known immunizations. Payers Payer Name Policy Type Covered Covered Relationship Subscriber Sub scriber Constitution Party Constitution Party Id Id [place] BRYCE [id number] Self/Same as BRYCE HILL [id number] [place] OF [place] Patient STATE MEDICARE Medicare BRYCE [id number] Self/Same as BRYCE HILL [id number] OUT (DO NOT Primary LIZ Patient USE) MEDICARE Medicare BRYCE [id number] Self/Same as BRYCE HILL 3N [id number] PART A AND Primary LIZ Patient B COVERAGE SELF PAY Personal [employer] BRYCE [id number] Self/Same as BRYCE HILL [id number] HEALTH CARE LIZ Patient [employer] BRYCE [id number] Self/Same as BRYCE HILL [id number] HEALTH (DO LIZ Patient NOT USE) Plan [...]
--- OUTSIDE RECORDS SUMMARY | 2020-09-28 14:25 | XMS_ITS | Continuity of Care Document ---
:1945 Author Organization [facility] Address [address] [place] [address] Care Team Providers Name Role Phone Zoraida Primary Care Physician Allergies, Adverse Reactions, Alerts Allergen Type [...] Atenolol 50 MG ORAL EVERY JuneMarch 10, Discmikhaili MORNI 2016 nued NG Magnesium 400 MG ORAL EVERY JuneMarch 10, Disconti EVENI 2016 2019 nued NG Nitrofurantoi 1 CAP ORAL Q12H JuneNovember 01, 2017 Disc onti n PRN 2016 nued Monohyd/M-Cry For st [Macrobid] Bladd er Spasm s Cephalexin 500 MG ORAL TWICE 14 SeptemberNovember 01, 2017 Discont i A DAY 12, nued 2018 Prednisone 10 MG ORAL DAILY 5 March 15, Discon ti r 2018 nued 2019 Guaifenesin 400 MG ORAL .q8hr 15 March 15, Disco nti r 2018 nued 2019 Benzonatate 100 MG ORAL every 14 April 28, Discont i day r 2020 [...] 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 27, 2018 Laceration of finger of left hand Active Inactive/Resolved Problems Medical Problem Onset Date [...] developed and its performance characteristics determined by [facility]. It has not been cleared or [...] by the FDA Performed on t he [employer] 7500 Fast. Reference Lab October 24, 2019 Ab 7[address] [facility] Is Pat ient Admitted or Awaiting Admission?:no Test Performing 10:00am lab [facility]: TRAFFIC SIGN SUPERVISOR Site Test performed [place] [address] Hospital Discharge Instructions No known hospital discharge [...] February Prednisone 10 MG ORAL DAILY 5 26 February Discontinue d 2018 Fluticasone 1 SPR NASAL Q12H 9.9 November Active adm inister Propionate 2018 into each nostril Guaifenesin 400 MG ORAL .q8hr 15 5 November Discontinu ed 2018 Benzonatate 100 MG ORAL every 14 November Discontinu ed day at 2018 bedtime PRN For cough Encounters Encounter Facility Location Admit/Visit Discharge/Departure Atte nding Date Date Provider Departed [facility] April 28, April 28, [facility] 10[facility]07[facility] 10[facility] October [facility], 2019 October 24, 2019 [facility] Russel Functional Status No known functional [...]
--- OUTSIDE RECORDS SUMMARY | 2020-09-28 14:26 | XMS_ITS | Continuity of Care Document ---
:1945 Author Organization [facility] Address [address] [place] [address] Phone Care Team Providers Name Role Phone Out of Town Primary Care Provider Unavailable Benedict Otto Attending Provider Zoraida Primary Care Provider Zoraida Attending Provider Jess Millard Attending Provider Allergies, Adverse Reactions, Alerts Allergen Type Severity Reaction Last Verified Status Updated simvastatin Adverse Moderate April Yes Active Reaction 2020 10:14am Sulfa Adverse Unknown April Yes Active (Sulfonamide Reaction 2020 Antibiotics) 10:14am Medications Medication Status Dose Units Route Directions Qty Days Start End Ins tructions Date Date Atorvastatin Active 40 MG PO BEDTIME June 23, 2016 10:09am Metformin Disconti 500 MG PO EVERY June 10:09am 12:40p m Omeprazole Active 40 MG PO EVERY June 10:09am Aspirin Disconti 81 MG PO BEDTIME June 10:09am 12:40p m Calcium Active 500 MG PO TWICE A DAY June Carbonate , (Calcium 500) 2016 500 mg 10:09am calcium (1,250 mg) Tablet Metformin Active 1000 MG PO TWICE A DAY June 23, 2016 10:09am Ibuprofen Active 600 MG PO THREE TIMES June (Motrin Ib) A DAY 2nd, 200 mg Tablet 2017 10:09am Lisinopril Disconti 40 MG PO EVERY June nued MORNING , 2016 2018 10:09am 6:00am Multivitamin Disconti 1 TAB-CA PO EVERY June Novemb nued P MORNING 2nd, er 2016, 10:09am 2018 11:11a m Atenolol Disconti 50 MG PO EVERY June Novemb nued MORNING 2nd, er 2016, 10:09am 2018 11:12a m Magnesium Disconti 400 MG PO EVERY June Novemb nued EVENING 2nd, er 2016, 10:09am 2018 11:11a m Nitrofurantoi Disconti 1 CAP PO Q12H June n nued , , Monohyd/M-Cry [address] (Macrobid) 10:09am 5:59am 100 mg Capsule Cephalexin Disconti 500 MG PO TWICE A DAY 14 September nued , 2017 10:40am 5:59am Metoprolol Active Vannessa Succinate 2017 5:58am Lisinopril Active TABLET Novembe r 2018 11:12am Prednisone Disconti 10 MG PO DAILY 5 5 Novembe Novemb nued r 17, er 2019 , 11:48am 2018 12:08a m Fluticasone Active 1 SPR NA Q12H 9.9 Novembe admin ister Propionate r , into ea ch 2019 nostril 11:49am Guaifenesin Disconti 400 MG PO .q8hr 15 5 Novembe Novemb nued r 17, er 2019 , 11:49am 2018 12:08a m Benzonatate Disconti 100 MG PO every day 14 Novembe Janua r nued at bedtime r 17, y 2018 11:51am 10:15a m Problems Active Problems Medical Problem Onset Date Status 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, 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, 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 Type 2 diabetes mellitus May 24, 2016 Active Trochanteric bursitis February 27, 2018 Active Neurogenic claudication due to May 10, 2018 Active lumbar spinal stenosis Thoracic and lumbosacral neuritis May 10, 2018 Active History of cataract extraction July 07, 2016 Active 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 27, 2018 Active Inactive/Resolved Problems Medical Problem Onset Date Status Acute hip pain Resolved Acute Eustachian salpingitis, Resolved bilateral Acute maxillary sinusitis Resolved Post concussion syndrome Resolved Acute UTI Resolved Impacted cerumen of left ear Resolved Laceration of finger of left hand Resolv ed Relevant Diagnostic Tests and/or Laboratory Data Laboratory Results Test Date/Time Result Interpretation Reference Result Comment Performing Range Site Hemoglobin February 6.09 % <5.7 <5.7%: MAIN LAB, [address] [facility] A1c Percent 2019 Normal5.7%-6.4%: [place] [address] 10:20am Prediabetes>=6.5 %: Diagnostic for diabetesGoals for Glycemic Control in Diabetes (ADA 2018)<7.0%: A1c target for non adults with diabetes. More or less stringent glycemic goals may be appropriate for individual patients.<7.5%: A1c target for children and adolescents with type I diabetes. A lower goal is reasonable if it can be achieved without excessive hypoglycemia. Estimated February 128 mg/dL MAIN LAB, [address] [facility] Average 2019 [facility] [address] Glucose 10:20am mg/dL Coronavirus October 23 Negative Negative results [facility] 2018 PCR 2019 do not preclude LAB[facility]ATORIES Interp 9:00am 2019-nCoV infection andshould not be used as the sole basis for treatment or otherpatient management decisions. Negative results must becombined with clinical observations, patient history, andepidemiologic al information.This test was developed and its performance characteristicsd etermined by [facility]. It has not been cleared or approved bythe US Food and Drug Administration. FDA does not requirethis test to go through premarket FDA review. This test isused for clinical purposes. It should not be regarded asinvestigationa l or for research. This laboratory iscertified under the Clinical Laboratory ImprovementAmend ments (CLIA) as qualified to perform high complexityclinic al laboratory testing.This test is based on the CDC COVID-19 Emergency UseAuthorization (EUA) assay, with minor modification asdefined by the FDAPerformed on the [employer] 7500 Fast. Reference October 23 Ab 7500 Is Patient [facility] Lab Test 2019 [facility] lab Admitted or LABORATO ADAM Performing 9:00am Awaiting Site Admission?:noCOV ID Source: NPTest performed or referred byThe [address] [address] Advance Directives Advance Directive Response Recorded Date/Time Does patient have an Advanced Yes June 29, 2016 8:06am Directive? Do we have a copy on file Yes June 29 8:06am here at [facility]? Pt has a Living Will? Yes June 29, 2016 8: 06am Do we have a copy on file Yes June 29 8:06am here at [facility]? Pt has a Power of Anaesthesiologist? Yes June 29 017 8:06am Do we have a copy on file Yes June 29 8:06am here at [facility]? Chief Complaint and Reason for Visit Chief Complaint COVID19 CURBSIDE TEST Lab Provider Based Billing Encounters Encounter Location(s) Arrival/Admit Date Discharge/Depart Date Provider(s) Departed [facility] October 24, 2019 October 24, 2019 7:50am Aime Del Cid Clinical Medical 7:49am MD [facility] Departed [facility] March 18, March 18, 2020 Barbara dominguez Clinical Medical 2019 10:00am 10:01am CERTIFIED ORTHOTIST PRACTICE MANAGER Center-Laboratory Departed [facility] April 28, 2020 April 28, 2020 [facility] Emergency Medical 10:07am 11:05am [place] r[place] Urgent [facility] Departed [facility] April 28, 2020 April 28, 2020 CERTIFIED ORTHOTIST PRACTICE MANAGER-Susanna Daniels Physician/[facility] Medical 12:00pm 1:00pm Jess vallecillo Office [facility] Visit rn Urgent [facility] Assessments No Assessments Information Available Family History Relationship Condition Age at Onset Recorded Date/Ti me Sibling Diabetes mellitus Unknown Parent Uses contact lenses Unknown Parent Diabetes mellitus Unknown Sibling Diabetes mellitus Unknown Functional Status No Functional Status information available Goals Goals may be documented in an alternate section. Immunizations Immunization Event Date Not Given Dose Prototype Machine Operator Lot Vac cine Reason Number Number Informatio n Statement (VIS) Deta il Tdap April Mental Status No Mental Status Information Available Medical Equipment Implanted Devices Device Date Implanted Device Details LENS [id number] 19.5 June 29, 2016 GUSTAVO: LENS [id number] 19.5 September 07, 2016 GUSTAVO: Insurance Providers Guarantor BRYCE H[employer] Address [address] [facility] [address] Contact Info. Home Phone: Payer Policy Id Coverage Id Subscriber's Subscriber Effective Expi ration Name Id Date Date LEIGH RAMIREZ [id number] BRYCE [employer]ILL [id number] OUT OF STATE MEDICARE [id number] BR[place] [place] [id number] January (DO NOT 2010 USE) MEDICARE [id number] BRYCE HILL [id number] PART A AND B COVERAGE SELF PAY Self N/A [place] [id number] BRYCE [place] [id number] [facility] [place] [id number] BRYCE [employer]ILL [id number] April (DO 2016 NOT USE) Plan of Treatment Future Tests Future scheduled test information is unavailable Pending Tests Pending diagnostic test information is unavailable Future Visits Future appointment information is unavailable Referrals to Other Providers Reason for Referral Start Provider Provider Contact Provider Address Referral Date Information Barbara Conway Work Phone: [facility] CERTIFIED ORTHOTIST PRACTICE MANAGER [address] [place] [address] [phone] Future Procedures Future procedure information is unavailable Future Medications Future medication information is unavailable Patient Instructions Wound Care (DC) COVID 19 General Instructions- decrease the spread of coronavirus ([facility]) Social History Smoking Status Status Date of Observation Never smoked tobacco (finding) April 28, 2020 10:43 am Observation Status Observation Response Date of Response Alcohol Use No April 28, 2020 10 :43am Substance/Street Drug Use No April 28, 2 021 10:43am Substance Use Treatment No April 28 10:43am substance use type does not use April 28, 2020 10 :43am Smoking Status Never smoker April 28, 2020 10 :43am Assigned Sex Female Vital Signs Vital Reading Result Reference Range Collection Date/ Time Height 65 [in_i] April 28 10:15am Weight 86.18 kg April 28 10:15am Body Temperature 97.9 [degF] 97.6-99.6 April 28 10:15am Heart Rate 67 /min 60-100 April 28 10:15am Respiratory rate 12 /min 12-24 April 28 10:15am Oxygen saturation by 97 % 95-100 Marcia 5th , 2021 Pulse oximetry 10:15am BP Systolic 120 mm[Hg] 100-140 April 28 10:15am BP Diastolic 84 mm[Hg] 50-85 April 28 10:15am BMI (Body Mass Index) 31.6 kg/m2 April 10:15am
--- OUTSIDE RECORDS SUMMARY | 2020-09-28 14:26 | XMS_ITS | Continuity of Care Document ---
:1945 Author Organization [facility] Address [address] [place] [address] Phone Care Team Providers Name Role Phone Out of Town Primary Care Provider Unavailable Rodolfo Attending Provider Benedict Otto Attending Provider Allergies, Adverse Reactions, Alerts Allergen Type Severity Reaction Last Updated Verified Status simvastatin Adverse Moderate February Yes Active Reaction 2018 11:11am Sulfa Adverse Unknown February Yes Active (Sulfonamide Reaction 2018 Antibiotics) 11:11am Medications Medication Status Dose Units Route Sig Qty Days Start End Instruct ions Date Date Atorvastatin Active 40 MG PO BEDTIM June 10:09am Metformin Discontinu 500 MG PO EVERY June ed MORNIN , 2016 10:09am 1:40pm Omeprazole Active 40 MG PO EVERY JuneN 2016 10:09am Aspirin Discontinu 81 MG PO BEDTIM June ed E 2016 10:09am 1:40pm Calcium Active 500 MG PO TWICE June Carbonate A DAY , (Calcium 500) 2016 500 mg calcium 10:09am (1,250 mg) Tablet Metformin Active 1000 MG PO TWICE June A DAY 2016 10:09am Ibuprofen Active 600 MG PO THREE June (Motrin Ib) TIMES , 200 mg Tablet A DAY 2016 10:09am Lisinopril Discontinu 40 MG PO EVERY June ed MORNIN , , 2016 10:09am 7:00am Multivitamin Discontinu 1 TAB-CA PO EVERY Junebe ed P NESTORN 2nd, r 17, G 2016 2018 10:09am 11:11am Atenolol Discontinu 50 MG PO EVERY Junebe ed MORNIN 2nd, r , G 2016 2018 10:09am 11:12am Magnesium Discontinu 400 MG PO EVERY Junebe ed EVENIN 2nd, r 17, G 2016 2018 10:09am 11:11am Nitrofurantoin Discontinu 1 CAP PO Q12H June Monohyd/M-Narcisa ed , , t (Macrobid) 2016 2017 100 mg Capsule 10:09am 6:59am Cephalexin Discontinu 500 MG PO TWICE 14 September ed A DAY 2017 11:40am 6:59am Metoprolol Active Vannessa Succinate 2017 6:58am Lisinopril Active TABLET March 10, 2019 11:12am Prednisone Discontinu 10 MG PO DAILY 5 5 February Novembe ed , r 2018 11:48am 12:08am Fluticasone Active 1 SPR NA Q12H 9.9 February admi nister Propionate , into each 2018 nostril 11:49am Guaifenesin Discontinu 400 MG PO .q8hr 15 5 February Novemb e ed , r 2018 11:49am 12:08am Benzonatate Active 100 MG PO every 14 February day at , bedtim 2019 e 11:51am Problems Active Problems Medical Problem Onset Date [...] Resolved Impacted cerumen of left ear Resolved Advance Directives Advance Directive Response Recorded Date/Time Does patient have an Advanced Yes June 29, 2016 8:06am Directive? Do we have a copy on file Yes June 29 8:06am here at [facility]? Pt has a Living Will? Yes June 29, 2016 8: 06am Do we have a copy on file Yes June 29 8:06am here at [facility]? Pt has a Power of Survey Party Chief? Yes June 29 017 8:06am Do we have a copy on file Yes June 29 8:06am here at [facility]? Chief Complaint and Reason for Visit Chief Complaint Provider Based Billing COVID19 CURBSIDE TEST Encounters Encounter Location(s) Arrival/Admit Date Discharge/Depart Date Provider(s) Departed [facility] March 10, March 10, 2019 null Emergency Medical 2018 11:07am 12:00pm [place] r[place] Urgent [facility] Departed [facility] March 10, March 10, 2019 PAC Erna rtha Physician/[facility] Medical 2018 11:09am 11:10am Walker ider Office [facility] Visit rn Urgent [facility] Departed [facility] October 24, 2019 October 24, 2019 8:50am Andirvin zamudio S. Clinical Medical 8:49am MD [facility] Assessments No Assessments Information Available Family History Relationship Condition Age at Onset Recorded Date/Ti me Sibling Diabetes mellitus Unknown Parent Uses contact lenses Unknown Parent Diabetes mellitus Unknown Sibling Diabetes mellitus Unknown Functional Status Observation Response Date Recorded Living Situation Alone March 10, 2019 11:13am Goals Goals may be documented in an alternate section. Mental Status No Mental Status Information Available Medical Equipment Implanted Devices Device Date Implanted Device Details LENS [id number] 19.5 June 29, 2016 GUSTAVO: LENS [id number] 19.5 September 07, 2016 GUSTAVO: Insurance Providers Guarantor BRYCE HILL Address [address] [place] [address] Contact Info. Home Phone: Payer Policy Id Coverage Id Subscriber's Subscriber Effective Expi ration Name Id Date Date LEIGH CROSS [id number] BR[employer] [id number] OUT OF STATE MEDICARE [id number] BR[place] [place] [id number] January (DO NOT 2010 USE) MEDICARE [id number] BRY[employer] [id number] PART A AND B COVERAGE SELF PAY Self N/A [place] [id number] BRYCE [place]ILL [id number] [facility] [place] [id number] BRY[employer]ILL [id number] April (DO 2016 NOT USE) Plan of Treatment Future Tests Future scheduled test information is unavailable Pending Tests Pending diagnostic test information is unavailable Future Visits Future appointment information is unavailable Referrals to Other Providers Reason for Referral Referral Start Date Provider Provider Miguel ct Provider Address Information Town Out Future Procedures Future procedure information is unavailable Future Medications Future medication information is unavailable Patient Instructions Patient instructions are unavailable Social History Smoking Status Status Date of Observation Never smoked tobacco (finding) March 10, 2019 11: 34am Observation Status Observation Response Date of Response Alcohol Use No March 10, 2019 11:34am Substance/Street Drug Use No March 10, 2019 11:34am Substance Use Treatment No March 10 11:34am substance use type does not use March 10, 2019 11:34am Smoking Status Never smoker March 10, 2019 11:34am Assigned Sex Female Vital Signs Vital Reading Result Reference Range Collection Date/ Time Height 64.50 [in_i] March 10 11:13am Weight 86.18 kg March 10 11:13am Body Temperature 99.0 [degF] 97.6-99.6 March 10, 2019 11:13am Heart Rate 85 /min 60-100 March 10 11:13am Respiratory rate 18 /min 12-24 March 10, 2019 11:13am Oxygen saturation by 98 % 95-100 March 102018 Pulse oximetry 11:13am BP Systolic 128 mm[Hg] 100-140 March 10 11:13am BP Diastolic 72 mm[Hg] 50-85 March 10 11:13am BMI (Body Mass Index) 32.1 kg/m2 February 222018 11:13am Hospital Discharge Instructions Additional Instructions Gargle salt water several times a day to help the sore throat and to help your ears drain properly. Rx: Take the guaifenesin every 8 hr for 5 days, to thin secretions and let your ears & sinuses drain properly. Rx: Take the prednisone every morning WITH FOOD. NO NSAIDs on those days (Aleve, Advil, ibuprofen) OTC: Swab AYR saline nasal gel into the nostril as often as you like, to keep the nasal passages open. Rx: Take the benzonatate cough medication only at bedtime, to stop the cough so you can sleep. DRINK lots of water. Rx: Use the fluticasone nasal spray every 12 hr and AIM OUTWARDLY.
--- OUTSIDE RECORDS SUMMARY | 2020-09-28 14:26 | XMS_ITS | Continuity of Care Document ---
:1945 Author Organization [facility] Address [address] [place] [address] Phone Care Team Providers Name Role Phone Out of Town Primary Care Provider Unavailable Benedict Otto Attending Provider Zoraida Primary Care Provider Zoraida Attending Provider Allergies, Adverse Reactions, Alerts Allergen Type Severity Reaction Last Updated Verified Status simvastatin Adverse Moderate February Yes Active Reaction 2018 11:11am Sulfa Adverse Unknown February Yes Active (Sulfonamide Reaction 2018 Antibiotics) 11:11am Medications Medication Status Dose Units Route Directions Qty Days Start End Ins tructions Date Date Atorvastatin Active 40 MG PO BEDTIME June 23, 2016 10:09am Metformin Disconti 500 MG PO EVERY June MORNING 2016 10:09am 12:40p m Omeprazole Active 40 MG [...] Ib) A DAY 2nd, 200 mg Tablet 2016 10:09am Lisinopril Disconti 40 MG PO EVERY June MORNING , 2016 10:09am 6:00am Multivitamin Disconti 1 TAB-CA PO EVERY March Novemb nued P MORNING 2nd, er 2016, [...] 5 Novembe Novemb nued r 17, er 2018, 11:48am 2018 12:08a m Fluticasone Active 1 SPR NA Q12H 9.9 Novembe admin ister Propionate r , into ea ch 2019 nostril 11:49am Guaifenesin Disconti 400 MG PO .q8hr 15 5 Novembe Novemb nued r 17, er 2018, 11:49am 2018 12:08a m Benzonatate Active 100 MG PO every day 14 Novembe at bedtime r 2018 11:51am Problems Active Problems Medical Problem Onset [...] Resolved Impacted cerumen of left ear Resolved Relevant Diagnostic Tests and/or Laboratory Data Laboratory Results Test Date/Time Result Interpretation Reference Result Comment Performing Range Site Hemoglobin February 6.09 % <5.7 <5.7%: MAIN LAB, [address] A1c Percent 2019 Normal5.7%-6.4%: [place] [address] 10:20am Prediabetes>=6.5 %: Diagnostic for diabetesGoals for Glycemic Control in Diabetes (ADA 2018)<7.0%: A1c target for non adults with diabetes. More or less stringent glycemic goals may be appropriate for individual patients.<7.5%: A1c target for children and adolescents with type I diabetes. A lower goal is reasonable if it can be achieved without excessive hypoglycemia. Estimated February 128 mg/dL MAIN LAB, [address] [facility] Average 2019 [place] [address] Glucose 10:20am mg/dL Coronavirus October 23 Negative Negative results [facility] 2018 PCR 2019 do not preclude [facility] Interp 9:00am 2019-nCoV infection andshould not be used as the sole basis for treatment or otherpatient management decisions. Negative results must becombined with clinical observations, patient history, andepidemiologic al information.This test was developed and its performance characteristicsd etermined by [facility]. It has not been cleared [...] asdefined by the FDAPerformed on the [employer] 7500 Fast. Reference October 23 7500 Is Patient [facility] Lab Test 2019 [place] [facility] Admitted or LABORAT[facility] ADAM Performing 9:00am Awaiting Site Admission?:noCOV ID Source: NPTest performed or referred byThe [address] [address] Advance Directives Advance Directive Response Recorded Date/Time Does patient have an Advanced Yes June 29, 2016 8:06am Directive? Do we have a copy on file Yes June 29 8:06am here at [facility]? Pt has a Living Will? Yes June 29, 2016 8: 06am Do we have a copy on file Yes June 29 8:06am here at [facility]? Pt has a Power of Stone Decorator? Yes June 29 017 8:06am Do we have a copy on file Yes June 29 8:06am here at [facility]? Chief Complaint and Reason for Visit Chief Complaint COVID19 CURBSIDE TEST Lab Encounters Encounter Location(s) Arrival/Admit Date Discharge/Depart Date Provider(s) Departed [facility] October 24, 2019 October 24, 2019 7:50am Aime Del Cid Clinical Medical 7:49am MD [facility] Departed [facility] March 18, March 18, 2020 Barbara dominguez Clinical Medical 2019 10:00am 10:01am [facility] Assessments No Assessments Information Available Family [...] 07, 2016 GUSTAVO: Insurance Providers Guarantor BRYCE Anibal LIZ Address [address] [place] [address] Contact Info. Home Phone: Payer Policy Id Coverage Id Subscriber's Subscriber Effective Expi ration Name Id Date Date [employer] [id number] BRYCE HILL [id number] OUT OF STATE MEDICARE [id number] BRYCE HILL [id number] January (DO NOT 2010 USE) MEDICARE [id number] BRYCE Anibal LIZ [id number] PART A AND B COVERAGE SELF PAY Self N/A [place] [id number] BRYCE HILL [id number] [facility] [place] [id number] BRYCE HILL [id number] April (DO 2016 NOT USE) Social History Smoking Status Status Date of Observation Never smoked tobacco (finding) March 10, 2019 11: 34am Observation Status Observation Response Date of Response Alcohol Use No March 10, 2019 11:34am Substance/Street Drug Use No March 10, 2019 11:34am Substance Use Treatment No March 10 019 11:34am substance use type does not use March 10, 2019 11:34am Smoking Status Never smoker March 10, 2019 11:34am Assigned Sex Female
--- OUTSIDE RECORDS SUMMARY | 2020-09-28 14:26 | XMS_ITS | Continuity of Care Document ---
:1945 Author Organization [facility] Address [address] [place] [address] Phone Care Team Providers Name Role Phone Mello Partida Attending Provider Hugh Primary Care Provider PCP, Choice Admit Provider Unavailable PCP, Choice Attending Provider Unavailable Zoraida Admit Provider Unavailable Zoraida Attending Provider Unavailable Zoraida Primary Care Provider Unavailable Benedict Otto Attending Provider Geri Attending Provider PCP, Given Primary Care Provider Unavailable Maggy Rojas Attending Provider Out of [facility] Primary Care Provider Unavailable Yoel Attending Provider Dianelys Borden Attending Provider Dennis Attending Provider Mila Fernandez Attending Provider Tashia Fong Attending Provider Rodolfo Attending Provider Allergies, Adverse Reactions, Alerts Allergen Type Severity Reaction Last Updated Verified Status simvastatin Adverse Moderate February Yes Active Reaction 2018 Sulfa Adverse Unknown February Yes Active (Sulfonamide Reaction 2018 Antibiotics) Medications Medication Status Dose Units Route Sig Qty Days Start End Instruct ions Date Date Atorvastatin Active 40 MG ORAL BEDTIM June 10:09am Metformin Discontinu 500 MG ORAL EVERY June ed MORNIN , 2016 10:09am 1:40pm Omeprazole [facility] 40 MG [facility] 10:[facility] Aspirin Discontinu 81 MG ORAL BEDTIM June ed E 2016 10:09am 1:40pm Calcium Active 500 MG ORAL TWICE June 10:09am Metformin Active 1000 MG ORAL TWICE June A 2016 10:09am Ibuprofen Active 600 MG ORAL THREE June TIMES 2016 10:09am Lisinopril Discontinu 40 MG ORAL EVERY June ed MORNIN , , 2016 10:09am 7:00am Multivitamin Discontinu 1 TAB-CA ORAL EVERY June [facility] ed P HERBER , r , 2016 10:09am 11:11am Atenolol Discontinu 50 MG ORAL EVERY June [facility] ed MORNIN 2nd, r , G 2016 2018 10:09am 11:12am Magnesium Discontinu 400 MG [facility] , G 2016 2018 10:09am 11:11am Nitrofurantoin Discontinu 1 CAP ORAL Q12H June Monohyd/M-Narcisa ed , , 2016 10:09am 6:59am Cephalexin Discontinu 500 MG ORAL TWICE 14 September ed A DAY , 2017 11:40am 6:59am Metoprolol Active Vannessa Succinate 2017 6:58am Lisinopril Active TABLET March 10, 2019 11:12am Prednisone Active 10 MG ORAL DAILY 5 5 March 10, 2019 11:48am Fluticasone Active 1 SPR NASAL Q12H 9.9 February admi nister Propionate , into each 2018 nostril 11:49am Guaifenesin Active 400 MG ORAL .q8hr 15 5 March 10, 2019 11:49am Benzonatate Active 100 MG ORAL every 14 November day at , bedtim 2019 e 11:51am Problems Active Problems Medical Problem Onset Date Status 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, 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 Acute Eustachian salpingitis, Active bilateral Acute maxillary sinusitis Active 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, 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 Type 2 diabetes mellitus May 24, 2016 Active Trochanteric bursitis February 27, 2018 Active Neurogenic claudication due to May 10, 2018 Active lumbar spinal stenosis Thoracic and lumbosacral neuritis May 10, 2018 Active Impacted cerumen of left ear Active History of cataract extraction July 07, 2016 Active 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 27, 2018 Active Inactive/Resolved Problems Medical Problem Onset Date Status Acute hip pain Resolved Post concussion syndrome Resolved Acute UTI Resolved Procedures Procedure Date Performed Status Lumbar Spine 4 vw Min February 27, 2018 active MRI Lumbar Spine w/o Contrast April 09, 2018 completed Hip 2 vw Min RT February 22, [address] Head w/o Contrast November 01, 2017 completed MRI Brain w/wo Contrast November 01, 2017 completed Urine Culture completed Extraction of cataract of left September 07, 2016 7:35am complet ed eye with insertion of intraocular lens Extraction of cataract of right June 29, 2016 9:35am compl eted eye with insertion of intraocular lens Foot 3 vw Min RT January 10, 2012 completed X-RAY EXAM OF FOOT January 10, 2012 active Knee 4 vw Min Bilat July 14, 2011 completed X-RAY EXAM KNEE 4 OR MORE July 14, 2011 active Relevant Diagnostic Tests and/or Laboratory Data Laboratory Results Test Date/Time Result Interpretation Reference Result Perfo rming Range Comment Site White Blood 6.39 4.8-10.8 MAIN LAB , [address] [facility] Count 1000/mm3 [facility] [address] Red Blood Count 4.01 M/mm3 4.20-5.40 [facility] N [facility], [address] [facility] [address] Hemoglobin 11.3 g/dL 12.0-16.0 MAIN LAB, [address] [place] [address] [place] [address] Hematocrit 35.9 % 37-47 MAIN LAB, [address] [place] [address] [place] [address] Mean 89.5 fL 81.0-99.0 MAIN LAB, [address] [place] [address] [place] [address] Volume Mean 28.2 pg 27-31 MAIN LAB, [address] [place] [address] [place] [address] Hemoglobin Mean 31.5 g/dL 33-37 MAIN LAB, [address] [place] [address] [place] [address] Hemoglobin Concent Red Cell 14.1 % 11.5-14.5 MAIN LAB, [address] [place] [address] [place] [address] Width Platelet Count 259 140-440 MAIN LAB, [address] [place] [address] 1000/mm3 [facility] [address] Mean Platelet 9.9 fL 7.4-10.4 MAIN L AB, [address] [place] [address] [place] [address] Neutrophils (%) 60.3 % 40.0-72.0 MAIN LAB, [address] [place] [address] (Auto) [place] [address] Lymphocytes (%) 29.4 % 17-45 MAIN LAB, [address] [place] [address] (Auto) [place] [address] Monocytes (%) 7.7 % 3-11 MAIN L AB, [address] [place] [address] (Auto) [place] [address] Eosinophils (%) 2.3 % 0-3 MAIN LAB, [address] [place] [address] (Auto) [place] [address] Basophils (%) 0.3 % 0-1 MAIN L AB, [address] [place] [address] (Auto) [place] [address] Neutrophils # 3.85 1.4-6.5 MAIN L AB, [address] [place] [address] (Auto) 1000/mm3 [place] [address] Lymphocytes # 1.88 1.2-3.4 MAIN L AB, [address] [place] [address] (Auto) 1000/mm3 [place] [address] Monocytes # 0.49 0.0-0.8 MAIN LAB , [address] [place] [address] (Auto) 1000/mm3 [place] [address] Eosinophils # 0.15 0.0-0.7 MAIN L AB, [address] [place] [address] (Auto) 1000/mm3 [place] [address] Basophils # 0.02 0.0-0.1 MAIN LAB , [address] [place] [address] (Auto) 1000/mm3 [place] [address] Differential Automated MAIN LA B, [address] [place] [address] Prothrombin 15.1 9.6-11.2 Time SECONDS Prothrombin 21.0 9.6-11.2 Time SECONDS Prothromb Time 1.5 2.0-3.0 INR value International valid only Ratio on patients on stabilized warfarin therapy. The recommended therapeutic range for warfarin (Coumadin) for most clinincal indications is an INR of 2.0-3.0. An INR of 2.5-3.5 is recommended for patients with mechanical heart valves. Prothromb Time 2.1 2.0-3.0 INR value International valid only Ratio on patients on stabilized warfarin therapy. The recommended therapeutic range for warfarin (Coumadin) for most clinincal indications is an INR of 2.0-3.0. An INR of 2.5-3.5 is recommended for patients with mechanical heart valves. Sodium Level 142 mmol/L 137-145 MAIN L AB, [address] [place] [address] Potassium Level 4.1 mmol/L 3.6-5.0 [facility] N [facility], [address] [place] [address] Chloride Level 105 mmol/L 98-107 MAIN LAB, [address] [place] [address] Carbon Dioxide 28 mmol/L 22-30 MAIN LAB, [address] [place] [address] Anion Gap 9 7-16 MAIN LAB, [address] [place] [address] Blood Urea 20 mg/dL 7-17 MAIN LAB, [address] [place] [address] Nitrogen [place] [address] Creatinine 0.70 mg/dL 0.52-1.04 MAIN LAB , [address] [place] [address] Glomerular > 60 mL/min >60.0 MAIN LA B, [address] [place] [address] Filtration Rate [place] [address] Calc Glucose Level 138 mg/dL 70-100 MAIN L AB, [address] [place] [address] Calcium Level 9.7 mg/dL 8.4-10.2 MAIN L AB, [address] [place], [place] [id number] Microbiology Results Procedure Source Result Collection Result Result Performin g Date/Time Date/Time Comment Site Urine Culture Ur,Clean Escherichia October 05, [facility], [address] [place] [address] Catch Coli 2018 8:42am [facility] [address] Diagnostic Imaging Reports Report Dictated Date/Time Dictated By Status Radiology Report July 15, 2011 Edmar Antony MD completed 12:05am [facility] RADIOLOG Y REPORT PATIENT NAME: WHITNEY HILL 05 DATE OF : 1945 087 ATTENDING/ER PHYSICIAN: FOSTER Acosta ER/ATTENDING PHYSICIAN: PRIMARY CARE PHYS: FOSTER Klein ADMITTING PHYSICIAN: CONSULTING PHYSICIAN: PROCEDURE DATE: 07/14/11 REPORT STATUS: Signed DICTATING PHYSICIAN: Alisha Antony MD REASON FOR EXAM: GENERALIZED OSTEOARTHRITIS BILATERAL KNEES, 5 VIEWS EACH TECHNIQUE: AP, both obliques, sunrise, and crosstable lateral views of each knee.. FINDINGS: Marginal osteophytes are mod erates-sized at all 3 compartments of each knee. Even supine, the oblique vie ws demonstrate narrowing of medial tibiofemoral joint spaces (severe on the left, and mild-moderate on the right). There are small suprapatellar joint effu sions in each knee. There are findings are suspicious for at least three 2-4 mm loose bodies in the anterolateral right knee joint space. 3 and 6-mm calcific o r ossific densities projecting posterior to the inferior end of the left patellar tendon on lateral view are not localized on other views, but might also represent loose bodies. . No opaque foreign body, fracture, dislocation or o ther osseous or joint abnormality demonstrated in either knee. Small phleb oliths are noted in the anteromedial subcutaneous soft tissues of each knee. IMPRESSION: 1. Bilateral tricompartment arthritis is moderate, except for severe in the medial left tibiofemoral compartment. 2. Small bilateral joint effusions. 3. Loose bodies are suspected, particu larly on the right. dd: 07/15/11 0005 <Electronically signed by Edmar Antony MD> 07/15/11 0019 Radiology Report January 10, 2012 Treva Servin MD compl eted 1:43pm [facility] RADIOLOG Y REPORT PATIENT NAME: WHITNEY HILL 05 DATE OF : 1945 599 ATTENDING/ER PHYSICIAN: Slade Partida DPM ER/ATTENDING PHYSICIAN: PRIMARY CARE PHYS: FOSTER Klein ADMITTING PHYSICIAN: CONSULTING PHYSICIAN: PROCEDURE DATE: 01/10/12 REPORT STATUS: Signed DICTATING PHYSICIAN: Treva Servin MD REASON FOR EXAM: HALLUX VALGUS STUDY: FOOT 3VW MIN RT Comparison exam dated 12/28/07 is availab le. FINDINGS: There is severe hallux valgus deformity with progressive loss of cartilage in the first MTP articulation. Hammertoe deformities of the second and third toes are unchanged. There are no acute osseous abnormalitie s. The osseous mineralization is normal. Moderate degenerative loss of cartilage space is identified in midfoot joints. There are no radiopaque foreign bodies. CONCLUSION: 1. No acute osseous abnormalities. dd: 01/10/12 1343 <Electronically signed by Treva silva MD> 01/10/12 134 6 Operative Report June 29, 2016 Abisai Rojas MD completed 9:32am [facility] Operativ e Report PATIENT NAME: WHITNEY HILL [id number] DATE OF : 1945 487 ATTENDING PHYSICIAN: Albert Rojas MD PRIMARY CARE PHYS: Out To DICTATING PHYSICIAN: Albert Rojas MD REPORT STATUS: Signed DATE OF SERVICE: CC: Job Number: [id number] Date of Service: 06/29/2016 PREOPERATIVE DIAGNOSIS: Cataract, rig ht eye POSTOPERATIVE DIAGNOSIS: Cataract, righ t eye OPERATION: Phacoemulsification with in traocular lens implant, right eye SURGEON: Abisai Rojas MD ANESTHESIA: Topical Lidocaine Jelly wi th 1% nonpreserved Lidocaine INDICATIONS FOR SURGERY: Decreased vis ual acuity. The details of the proposed procedure were explained to the patient, who asked appropriate questions and voiced understanding. Risks, including vision loss, blindness, infection, loss of eye, glaucoma, corneal failure, and p ossible need for additional surgery, as well as benefits and alternatives, were discussed and the patient elected to proceed with surgery. PROCEDURE: The patient was identified by name and date of . The operative eye was marked prior to the pr ocedure in the preoperative holding area. A timeout occurred once the patie nt was in the operating room, and all were in agreement. [facility] eye bed, and Lidocaine jelly was placed into the righ t eye. The patient was prepped and draped in the usual sterile manner for r ight eye cataract surgery. The operating microscope was brought into po sition. A 15-degree blade was used to make a paracentesis in clear cornea at t he temporal location. The above- mentioned anesthetic was injected into t he anterior chamber. Provisc was then injected. A crescent blade, followed by a keratome, was then used to create a clear corneal incision several clock aaron rs to the right of the paracentesis. A disposable cystotome and Utrata forceps were used to create a continuous curvilinear capsulorrhexis. Balanced Sa lt Solution (BSS) on a straight syringe was used to hydrodissect and hydrodeline ate the nucleus. Phacoemulsification was used to sculpt the nucleus in half, and nucleus was then cracked. Phacoemulsification was used to remove e ach nuclear half with the aid of a chopping instrument. The I/A tip was us ed to remove residual cortex. Viscoelastic was injected into the capsu lar bag. A bent crescent blade was used to enlarge the corneal incision. An Alc on SN60WF 19.5 diopter lens serial #[id number] was placed in the capsular bag using an injector. Good centration of the lens was achieved. Residual visco elastic was aspirated. The chamber was reformed using BSS. BSS was used to hyd rate the paracentesis and surgical wounds. The wounds were found to be tristen er-tight. One drop of Maxitrol was instilled and a clear shield was placed over the eye. The patient tolerated the procedure wel l, and was returned to the recovery room in stable condition, was assessed, and f ound suitable for discharge. [id number] dd: 06/29/2016 09:32:46 dt: 06/29/2016 09:44:06 <Electronically signed by Abisai kraft MD> 06/29/16 9401 Operative Report September 07, 2016 Abisai Rojas MD completed 7:53am [facility] Operativ e Report PATIENT NAME: WHITNEY HILL [id number] DATE OF : 1945 511 ATTENDING PHYSICIAN: Albert Rojas MD PRIMARY CARE PHYS: FOSTER Klein DICTATING PHYSICIAN: Albert Rojas MD REPORT STATUS: Signed CC: Job Number: [id number] Date of Service: 09/07/2016 PREOPERATIVE DIAGNOSIS: Cataract, lef t eye POSTOPERATIVE DIAGNOSIS: Cataract, left eye OPERATION: Phacoemulsification with in traocular lens implant, left eye SURGEON: Abisai Rojas MD ANESTHESIA: Topical Lidocaine Jelly wi th 1% nonpreserved Lidocaine INDICATIONS FOR SURGERY: Decreased vis ual acuity. The details of the proposed procedure were explained to the patient, who asked appropriate questions and voiced understanding. Risks, including vision loss, blindness, infection, loss of eye, glaucoma, corneal failure, and p ossible need for additional surgery, as well as benefits and alternatives, were discussed and the patient elected to proceed with surgery. PROCEDURE: The patient was identified by name and date of . The operative eye was marked prior to the pr ocedure in the preoperative holding area. A timeout occurred once the patie nt was in the operating room, and all were in agreement. The patient was brought to the operatin g room on an ambulatory eye bed, and Lidocaine jelly was placed into the left eye. The patient was prepped and draped in the usual sterile manner for l eft eye cataract surgery. The operating microscope was brought into position. A 15-degree blade was used to make a paracentesis in clear cornea at the temp oral location. The above-mentioned anesthetic was injected into the anterio r chamber. Provisc was then injected. A crescent blade, followed by a keratome, was then used to create a clear corneal incision several clock hours to the righ t of the paracentesis. A disposable cystotome and Utrata forceps were used t o create a continuous curvilinear capsulorrhexis. Balanced Salt Solution (BSS) on a straight syringe was used to hydrodissect and hydrodelineate the nucl eus. Phacoemulsification was used to sculpt the nucleus in half, and nucleus was then cracked. Phacoemulsification was used to remove each nuclear half wit h the aid of a chopping instrument. The I/A tip was used to remove residual jennifer ex. Viscoelastic was injected into the capsular bag. A bent crescent blade was used to enlarge the corneal incision. An Hugh sn60wf 19.5 diopter lens (seria l #[id number]) was placed in the capsular bag using an injector. Good ce ntration of the lens was achieved. Residual viscoelastic was aspirated. Th e chamber was reformed using BSS. BSS was used to hydrate the paracentesis and surgical wounds. The wounds were found to be watertight. One drop of Maxitrol was instilled and a clear shield was placed over the eye. The patient tolerated the procedure wel l, and was returned to the recovery room in stable condition, was assessed, and f ound suitable for discharge. [id number] dd: 09/07/2016 07:53:49 dt: 09/07/2016 09:20:39 <Electronically signed by Abisai kraft MD> 09/07/16 1150 Radiology Report November 01, 2017 Edmar Antony MD completed 8:39am [facility] CAT SCA N REPORT PATIENT NAME: WHITNEY HILL 05 DATE OF : 1945 604 ATTENDING/ER PHYSICIAN: ER/ATTENDING PHYSICIAN: Sirisha Cardona MD PRIMARY CARE PHYS: FOSTER Klein ADMITTING PHYSICIAN: CONSULTING PHYSICIAN: PROCEDURE DATE: 11/01/17 REPORT STATUS: Signed DICTATING PHYSICIAN: Alisha Antony MD REASON FOR EXAM: closed head injury CT HEAD (w/o contrast) HISTORY: Pt. Reports she fell down bernarda lar stairs on her left side five days ago. Initially c/o Head/neck pain. Has b een lightheaded this morning. Was seen for visual disturbance yesterday (Descri bed seeing waves). Seen at [facility] on 10/28/17. TECHNIQUE: Unenhanced 1 and 5 mm axial and 5-mm reconstructed sagittal and coronal images. COMPARISON: None. FINDINGS: A 6 mm thick by 19 x 16 mm h yperdense recent subcutaneous hematoma is noted in the high convexity and catherine agittal anterior left parietal scalp. There is a small amount of edema or ecch ymosis in the scalp surrounding the hematoma. Sulci in the parasagittal bilateral fro ntal and parietal lobes are moderate and large and are borderline to mildly promi nent for a 72-year-old. Elsewhere diffuse mild cerebral and cerebellar sul cecil prominence is age consistent. Normal midline ventricles. No appreciable thin issa of the corpus callosum. A 5 x 10 x 12 mm volume of increased de nsity with laterally convex margin is noted in the left parasellar and medial left middle fossa. Its obtuse margins suggest that this is dural or extradural . A small meningioma is suspected, but an aneurysm from the [place] or a small subdural hematoma are not ent irely excluded. MRI of the brain (pre an d post IV gadolinium) is suggested for further evaluation. There is mild bilateral carotid siphon calcification. No other evidence of hemorrhage or other abnormal density. N o other mass-effect, abnormal extraaxial fluid collection or other intracranial a bnormality. Burnett-white differentiation is maintained. Hyperostosis frontalis interna is moder ately prominent. There is mild bilateral TMJ arthritis. No depressed or obvious s kull fracture or other osseous abnormality. Mastoids and visualized upp er paranasal sinuses are well aerated. IMPRESSION: 1. Small left anterior parietal scalp h ematoma with surrounding edema/ecchymosis. 2. Suspected small meningioma (vs possi ble aneurysm or small subdural hematoma) in left parasellar/medial left mid dle fossa location. 2. Suggest MRI of the brain, pre and po st IV gadolinium. 3. Bilateral frontoparietal cerebral vo lume loss is borderline prominent for age. 5. Mild arterial calcification. 6. No other significant intracranial ab normality is demonstrated by noncontrast CT. At 0900 hours on 11/01/2017, I called Dr Pam Cardona in the ED to inform him of the findings in the medial left middle f ez and of my recommendation for brain MRI pre and post IV gadolinium. dd: 11/01/17 0839 <Electronically signed by Edmar Antony MD in OV> 11/01/17 0904 Electrocardiogram November 01, 2017 Devaughn Cardona MD completed 8:04am [facility] EKG R eport PATIENT NAME: WHITNEY HILL [id number] DATE OF : 1945 604 ATTENDING PHYSICIAN: PRIMARY CARE PHYS: FOSTER Klein DICTATING PHYSICIAN: Devaughn Cardona MD REPORT STATUS: Signed Test Reason : Blood Pressure : / mmHG Vent. Rate : 072 BPM Atrial Rate : 072 BPM P-R Int : 234 ms QRS Dur : 086 ms QT Int : 412 ms P-R-T Axes : 032 -08 003 degrees QTc Int : 451 ms Sinus rhythm with 1st degree AV block w ith premature atrial complexes Moderate voltage criteria for LVH, may be normal variant Borderline ECG No previous ECGs available Confirmed by Devaughn Cardona ([id number]) on 02/2018 10:07:00 AM Referred By: Devaughn Cardona Con firmed By:Devaughn Cardona 11/01/17 1007 Radiology Report November 01, 2017 Lorraine Chambers MD completed 10:47am [facility] MRI R EPORT PATIENT NAME: WHITNEY HILL 05 DATE OF : 1945 604 ATTENDING/ER PHYSICIAN: ER/ATTENDING PHYSICIAN: Sirisha Cardona MD PRIMARY CARE PHYS: FOSTER Klein ADMITTING PHYSICIAN: CONSULTING PHYSICIAN: PROCEDURE DATE: 11/01/17 REPORT STATUS: Signed DICTATING PHYSICIAN: Lester Chambers MD, PhD REASON FOR EXAM: head trauma ? abnormal CT STUDY: MRI Brain w/wo Contrast COMPARISON: CT of the head from the puja TECHNIQUE: Multiple multi-sequence MR i mages of the brain were obtained with and without administration of intraveno us gadolinium contrast. FINDINGS: There is no restricted diffusion to sug gest acute brain ischemia. There is no abnormal parenchymal suscep tibility gradient to suggest blood products. Several foci of abnormal FLAIR/T2 signa l hyperintensities visualized in the periventricular and bilateral wharton rad iata white matter are suggestive of microangiopathic ischemic changes. No AVM, aneurysm or significant vascula r stenosis is identified. There is no intracranial hemorrhage, ma ss, midline shift or extra-axial fluid collection. The ventricles and basal cisterns demon strate symmetric configuration. There is no hydrocephalus. Parenchymal volume loss is commensurate with patient's age. Normal flow voids are identified in the anterior and posterior circulation. The paranasal sinuses and mastoid air c ells are clear. CONCLUSION: 1. No acute ischemic stroke, intracrani al hemorrhage, mass or extra-axial fluid collection. 2. No AVM, aneurysm or significant vas cular stenosis of the intracranial vessels. 3. Mild age appropriate volume loss and mild microangiopathic ischemic changes in bilateral wharton radiata. dd: 11/01/17 1047 <Electronically signed by Lorraine silva MD, PhD in OV> 11/01/17 1129 Radiology Report February 22, 2018 Treva Servin MD complet ed 10:10am [facility] RADIOLOG Y REPORT PATIENT NAME: WHITNEY HILL 05 DATE OF : 1945 887 ATTENDING/ER PHYSICIAN: ER/ATTENDING PHYSICIAN: Asuncion Collins NP PRIMARY CARE PHYS: FOSTER Klein ADMITTING PHYSICIAN: CONSULTING PHYSICIAN: PROCEDURE DATE: 02/22/18 REPORT STATUS: Signed DICTATING PHYSICIAN: Treva Servin MD REASON FOR EXAM: rt hip pain w/ WB STUDY: Hip 2 vw Min RT FINDINGS: There are no acute osseous abnormalitie s. There is mild gluteus enthesopathy. Moderate degenerative loss of acetabula r joint space is noted. There is no hip joint effusion. The obturator ring is intact. CONCLUSION: 1. No acute osseous abnormalities. dd: 02/22/18 1010 <Electronically signed by Treva silva MD in OV> 02/22/18 1011 Radiology Report April 09, 2018 Lorraine Chambers MD comple fang 2:00pm [facility] MRI R EPORT PATIENT NAME: WHITNEY HILL 05 DATE OF : 1945 819 ATTENDING/ER PHYSICIAN: Radha Fernandez PA-C ER/ATTENDING PHYSICIAN: PRIMARY CARE PHYS: FOSTER Klein ADMITTING PHYSICIAN: CONSULTING PHYSICIAN: PROCEDURE DATE: 04/09/18 REPORT STATUS: Signed DICTATING PHYSICIAN: Lester Chambers MD, PhD REASON FOR EXAM: LOW BACK PAIN M47.896 STUDY: MRI Lumbar Spine w/o Contrast COMPARISON: Lumbar spinal radiograph of 02/27/2018 TECHNIQUE: Multiplanar multi-sequence i mages of the lumbar spine were obtained without administration of IV contrast. FINDINGS: There is a grade 1 retrolisthesis of L1 on L2 and L2 on L3. In addition, there is a grade 1 anterol isthesis of L4 on L5. Multilevel Schmorl's nodules and endpla te deformities are noted at T11-L2 with associated intervertebral disc space los s and anterior endplate osteophyte formation. There is no acute fracture. No marrow edema is identified. A couple of T1/T2 hyperintensities visu alized in T12 and L1 represent osseous hemangiomas. Otherwise, the bone marrow signal is no rmal. Posterior elements appear intact. The spinal cord terminates at L1. The cauda equina is normal in appearanc e. Axial images demonstrate the following: T11-T12: There is a central and right f oraminal protrusion without significant central canal stenosis. Foraminal disc m ay contribute to compression on the right exiting T12 nerve. No significant neural foraminal stenosis T12-L1: No significant central canal or neural foraminal stenosis L1-L2: The site of grade 1 retrolisthes is without significant central canal stenosis. Bilateral moderate hypertrophic facet arthropathy with joint effusions with moderate to severe left and moderate rig ht neural foraminal stenosis. Right foraminal disc may cause mass eff ect on exiting right L1 nerve. L2-L3: The site of grade 1 retrolisthe sis, bilateral hypertrophic facet arthropathy and ligamentum flavum hypert rophy with mild central canal stenosis. Severe left and mild right neural forami nal stenosis. Foraminal disc may contribute to mass effect on exiting shantanu ateral L2 nerves. L3-L4: Broad-based shallow disc bulge, bilateral hypertrophic facet arthropathy and ligamentum flavum hypert rophy with moderate central canal stenosis. The AP diameter measures 8 mm on sagittal view. Moderate bilateral neural foraminal narrowing, left greater than right. L4-L5: The site of grade 1 anterolisth esis with uncovering disc. The visualized T2 signal hyperintensity is s uggestive of annular fissure. Congenitally short pedicles, bilateral m oderate hypertrophic facet arthropathy and severe ligamentum flavum hypertrophy result in severe central canal stenosis. Moderate left and mild right n eural foraminal narrowing L5-S1: Shallow broad-based disc protru leny, congenitally short pedicles, moderate facet arthropathy and ligamentu m flavum hypertrophy result in mild central canal stenosis. Moderate left an d mild right neural foraminal stenosis Limited evaluation of the soft tissues demonstrates mild to moderate paraspinous muscle atrophy. Hypertrophic changes are visualized in bilateral sacroiliac joints. CONCLUSION: 1. Multilevel degenerative spondylosis with grade 1 retrolisthesis at L1-L2 and L2-L3 and grade 1 anterolisthesis at L4- L5. 2. Moderate central canal stenosis at L 3-L4 and severe central canal stenosis at L4-L5. 3. Foraminal disc at T11-T12, L1-L2 and L2-L3 may cause compression of exiting right T11, right L1 and bilateral exitin g L2 nerves. 4. Moderate hypertrophic facet adenopat hy with multilevel moderate neural foraminal stenosis. dd: 04/09/18 1400 <Electronically signed by Lorraine silva MD, PhD in OV> 04/09/18 2339 Advance Directives Advance Directive Response Recorded Date/Time Does patient have an Advanced Yes June 29, 2016 8:06am Directive? Do we have a copy on file Yes June 29 8:06am here at [facility]? Pt has a Living Will? Yes June 29, 2016 8: 06am Do we have a copy on file Yes June 29 8:06am here at [facility]? Pt has a Power of Manufacturing Engineering Director? Yes June 29 8:06am Do we have a copy on file Yes June 29 8:06am here at [facility]? 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, RIGHT EYE PBB Provider Based Billing COMBINED FORMS OF AGE-RELATE D CATARACT, LEFT EYE Provider Based Billing Provider Based Billing Provider Based Billing LIGHT HEADED Provider Based Billing Provider Based Billing Neck Pain Provider Based Billing Provider Based Billing xr Provider Based Billing hip Provider Based Billing LOW BACK PAIN M47.896 Provider Based Billing Provider Based Billing Provider Based Billing Provider Based Billing Encounters Encounter Location(s) Arrival/Admit Discharge/Depart Provider(s ) Date Date Departed [facility] Jihan brown Physician/Provi Medical 12:00am [facility] Misc Visit Comp Pain location Departed [facility] December 27, December 28, 2007 Bright [facility] 2007 12:00am , [facility] Departed [facility] May 28May 28, 2009 Pcp No Clinical Medical 2009 2:00pm 11:59pm [place] Discharged [facility] August 13, 2009 August 27, 2009 1:33pm Pcp Stella Recurring Medical 1:55pm [place] Departed [facility] November 10, 2009 November 10, 2009 Barbara cherry Clinical Medical 9:21am 11:59pm [facility] Center-Chronic Disease Departed [facility] December 01, 2009 December 01, 2009 Barbara Conway Clinical Medical 9:20am 11:59pm [facility] Center-Chronic Disease Departed [facility] December 08, 2009 December 08, 2009 Barbara Conway Clinical Medical 10:25am 11:59pm [facility] Center-Chronic Disease Departed [facility] December 15, 2009 December 15, 2009 Barbara Conway Clinical Medical 9:45am 11:59pm [facility] Center-Chronic Disease Departed [facility] January 08January 08, 2010 Barbara Conway Clinical Medical 2009 2:20pm 11:59pm [facility] Center-Chronic Disease Registered [facility] July 14, 2011 Barbara he [facility] 10:14am [facility] Registered [facility] January 09, Bright [facility] 2011 12:23pm , [facility] Discharged [facility] August 14, 2012 October 18, 2012 Russel Red Medical 1:15pm 6:58am [facility] Registered [facility] January 23, 2013 Geri beaulieu [facility] Medical 11:51am [facility] Discharged [facility] January 30, 2013 April 30, 2013 Rush [facility] 12:45pm 10:50am MD Clarita [place]-[facility] Therapy Registered [facility] January 30, 2013 Russel Del Cid Clinical Medical 3:54pm MD [facility]-Laboratory Departed [facility] December 24December 24, 2013 Sukhdev michele Physician/[facility] 2013 12:00am [facility] Visit n Primary Care Departed [facility] January 10, January 11, 2016 Iliana Acevedo Physician/[facility] 2015 12:00am RD [facility]-Lifestyle Visit Medicine Departed [facility] February 05, 2016 Nidia Winter Physician/[facility] 2016 12:00am АЛЕКСАНДР Bat[facility]-Lifestyle Visit Medicine Registered [facility] February 05, [facility] 2015 8:00am [facility] Center-Life Style Med NMC Departed [facility] February 12, February 13, 2016 Nataliya on Physician/[facility] 2015 12:00am [facility] Visit Medicine Departed [facility] February 19, February 20, 2016 Nidia Winter Physician/[facility] 2015 12:00am АЛЕКСАНДР [facility]-Lif[facility] Visit Medicine Registered [facility] February 19, Barbara Conway Clinical Medical 2015 8:00am [employer] Center-Life Style Med NMC Departed [facility] February 23, February 24, 2016 Yen Diallo Physician/[facility] 2015 12:00am VELMA [facility] Visit n Urgent [facility] [place] Departed [facility] February 26, February 27, 2016 Nidia Winter Physician/[facility] 2016 12:00am АЛЕКСАНДР [facility] Visit Medicine Registered [facility] February 26, [facility] 8:00am [employer] Center-Life Style Med N[facility] Departed [facility] March 05, March 05, 2016 Molly Winter Physician/[facility] 2016 12:00am АЛЕКСАНДР [facility]-Lif[facility] Visit Medicine Registered [facility] March 05, Barbara Conway Clinical Medical 2015 8:00am [employer] Center-Life Style Med NMC Departed [facility] May 24, May 24, 2016 Cherryi on Physician/[facility] Medical 2016 12:00am [facility] Visit n Ophthalmology Registered [facility] May 24, Abisai kraft Clinical Medical 2016 2:52pm MD [facility] n Ophthalmology Departed [facility] June 29, 2016 June 29, 2016 Abisai miller Surgical Day Medical 8:00am 9:49am MD [facility]-Surgical Services Departed [facility] June 30, 2016 June 30, 2016 Conversio n Physician/Provi Medical 12:00am [facility] Visit n Ophthalmology Departed [facility] June 30, 2016 June 30, 2016 Abisai miller Physician/[facility] 8:13am 8:14am MD [facility] Visit n Ophthalmology Departed [facility] July 07, 2016 July 07, 2016 Convers ion Physician/Provi Medical 12:00am [facility] Visit n Ophthalmology Departed [facility] July 07, 2016 July 07, 2016 Abisai Rojas Physician/[facility] 9:12am 9:13am MD [facility] Visit n Ophthalmology Departed [facility] July 14, 2016 July 14, 2016 Convers ion Physician/Provi Medical 12:00am [facility] Visit n Ophthalmology Departed [facility] July 21, 2016 July 21, 2016 Convers ion Physician/Provi Medical 12:00am [facility] Visit n Ophthalmology Departed [facility] September 07, 2016 September 07, 2016 Abisai deleon Surgical Day Medical 6:28am 8:18am MD [facility]-Surgical Services Departed [facility] September 08, 2016 September 08, 2016 Conversion Physician/Provi Medical 12:00am [facility] Visit n Ophthalmology Departed [facility] September 08, 2016 September 08, 2016 Abisai deleon Physician/[facility] 8:05am 8:06am MD [facility] Visit n Ophthalmology Departed [facility] September 15, 2016 September 15, 2016 Conversion Physician/Provi Medical 12:00am [facility] Visit n Ophthalmology Departed [facility] October 13, 2016 October 13, 2016 Cherryio radha Physician/[facility] 12:00am [facility] Visit n Ophthalmology Departed [facility] October 13, 2016 October 13, 2016 Abisai miller Physician/[facility] 8:59am 9:00am MD [facility] Visit n Ophthalmology Departed [facility] October 03, 2017 October 03, 2017 null Emergency Medical 10:36am 11:45am [facility] n [facility] [place] Departed [facility] October 03, 2017 October 03, 2017 Yen wallace Physician/[facility] 10:42am 10:43am VELMA [facility] Visit n [facility] [place] Departed [facility] November 01, 2017 November 01, 2017 null Emergency Medical 6:46am 11:28am Center-Emergency Department Departed [facility] December 12, 2017 December 12, [facility] 12[facility]am [facility] Visit n Dermatology Departed [facility] December 12, 2017 December 12, 2017 Kaitlynn Ivory Referred Medical 7:45am 7:46am MD Suha Center-Pathology Departed [facility] December 12, 2017 December 12, 2017 Kaitlynn Ivory Physician/[facility] 11:08am 11:09am MD Suha [facility] Visit n Dermatology Departed [facility] February 08, February 08, 2018 Conversi on Physician/[facility] Medical 2017 12:00am [facility] Visit n Dermatology Departed [facility] February 08, February 08, 2018 Waleska Ivory Physician/[facility] 2017 9:41am 9:42am MD Suha [facility] Visit n Dermatology Discharged [facility] February 20, March 12, 2018 Barbara whitney Recurring Medical 2018 9:30am 11:29am [employer] [facility] Departed [facility] February 22February 22, 2018 null Emergency Medical 2018 8:55am 10:19am [facility] [facility] February 22February 22, 2018 Ajay Physician/[facility] 2017 8:59am 9:00am MILK DRIER [facility] [facility] February 27February 27, 2018 DEEPIKA mcneal Physician/[facility] 2018 12:00am Fernandez [facility] Visit n Orthopedic&Rehab Departed [facility] February 27February 27, 2018 DEEPIKA mcneal Physician/[facility] 2017 9:24am 9:25am Fernandez [facility] Visit n Orthopedics Departed [facility] February 27February 27, 2018 DEEPIKA mcneal [facility] 2017 10:03am 10:04am Fernandez [facility] Orthopedics Departed [facility] March 13March 13, 2018 DEEPIKA oro Physician/[facility] Medical 2018 12:00am Fernandez [facility] Visit n Orthopedic&Rehab Departed [facility] March 13March 13, 2018 DEEPIKA oro Physician/[facility] Medical 2018 9:05am 9:06am [facility] Visit n Orthopedics Discharged [facility] March 21April 25, 2018 DEEPIKA mcneal [facility] Medical 2017 10:30am 11:29am [facility] Departed [facility] March 26March 26, 2018 DEEPIKA mcneal Physician/[facility] Medical 2017 12:00[address] [facility] Visit n Orthopedic&Rehab Departed [facility] March 26March 26, 2018 DEEPIKA mcneal Physician/[facility] Medical 2017 8:52am 8:53am [facility] Visit n Orthopedics Departed [facility] April 09April 09, 2018 DEEPIKA oro [facility]- 2017 12:08pm 12:09pm [facility] Departed [facility] April 11April 11, 2018 DEEPIKA oro Physician/[facility] Medical 2017 12:00[address] [facility] Visit n Orthopedic&Rehab Departed [facility] April 13April 13, 2018 DEEPIKA oro Physician/[facility] Medical 2017 12:00[address] [facility] Visit n Orthopedic&Rehab Departed [facility] April 13April 13, 2018 DEEPIKA oro Physician/[facility] 2017 1:53pm 1:54pm [facility] Visit n Orthopedics Departed [facility] May 10, May 10, 2018 Nataliya donahue Physician/[facility] 2018 12:00am [facility] Visit n Orthopedic&Rehab Departed [facility] May 10May 10, 2018 Juvencio Lao Physician/[facility] 2018 9:13am 9:14am DO Restrepo [facility] Visit n Orthopedics Departed [facility] August 20, 2018 August 20, 2018 Convers ion Physician/Provi Medical 12:00am [facility] Visit n Dermatology Departed [facility] August 21, 2018 August 21, 2018 Convers ion Physician/Provi Medical 12:00am [facility]ent [facility] Visit n Orthopedic&Rehab Departed [facility] August 21, 2018 August 21, 2018 Juvencio Orozco Physician/[facility] Medical 8:51am 8:52am DO [place] Visit n Orthopedics Departed [facility] March 10March 10, 2019 null Emergency Medical 2018 11:07am 12:00pm Center-[facility] n Urgent [facility] [place] Departed [facility] March 10March 10, 2019 ULICES wood Physician/[facility]vi Medical 2018 11:09am 11:10am Walker david Office [facility] Assessments No Assessments Information Available Family History Relationship Condition Age at Onset Recorded Date/Ti me Sibling Diabetes mellitus Unknown Parent Uses contact lenses Unknown Parent Diabetes mellitus Unknown Sibling Diabetes mellitus Unknown Functional Status Observation Response Date Recorded Living Situation Alone March 10, 2019 11:13am Living Situation Alone February 22, 2018 9 :10am Living Situation Alone November 01, 2017 11:2 7am Living Situation Alone October 03, 2017 11:0 4am Living Situation Alone September 07, 2016 6:41a m Home September 07, 2016 6:41a m Ambulation Ability Independent June 23, 2016 10:2 2am Clothing Mgt Ability Independent June 23, 2016 10: 22am Feeding Ability Independent June 23, 2016 10:2 2am Hygiene & Grooming Ability Independent June 23 10:22am Oral Hygiene Ability Independent June 23, 2016 10: 22am Toileting Ability Independent June 23, 2016 10:2 2am Living Situation Alone June 23, 2016 10:2 2am Goals Goals may be documented in an alternate section. Mental Status Observation Response Date Recorded Comprehension Ability Understands Concepts September 07, 2016 6: 41am Speech Appropriate September 07, 2016 6:41a m Clear September 07, 2016 6:41a m Comprehension Ability Understands Concepts June 29, 2016 8 :25am Speech Clear June 29, 2016 8:25 am Medical Equipment Implanted Devices Device Date Implanted Device Details LENS [id number] June 29, 2016 GUSTAVO: LENS [id number] 19.5 September 07, 2016 GUSTAVO: Insurance Providers Guarantor BRYCE HILL Address [address] [place] [address] Contact Info. Home Phone: Payer Policy Id Coverage Id Subscriber's Subscriber Effective Expi ration Name Id Date Date LEIGH RAMIREZ [id number] BRYCE HILL [id number] OUT OF STATE MEDICARE [id number] BRYCE HILL [id number] January (DO NOT 2010 USE) MEDICARE [id number] BRYCE HILL [id number] PART A AND B COVERAGE SELF PAY Self N/A TOLNA [id number] BRYCE HILL [id number] [facility] [id number] BRYCE HILL [id number] April (DO 2016 NOT USE) Plan of Treatment Future Tests Future scheduled test information is unavailable Pending Tests Pending diagnostic test information is unavailable Future Visits Future appointment information is unavailable Referrals to Other Providers Reason for Referral Start Provider Provider Contact Provider Address Referral Date Information Barbara TIPTON[place] [employer] Juan Lao Work Phone: [facility] Orthopaedic s MD Jozef [address] [place] [id number] Barbara Conway [employer] Barbara Wochelo [employer] Barbara Wochelo [place] [employer] [place] Future Procedures Future procedure information is unavailable Future Medications Future medication information is unavailable Patient Instructions Postconcussion Syndrome (DC) Social History Smoking Status Status Date of Observation Never smoked tobacco (finding) March 10, 2019 11: 34am Observation Status Observation Response Date of Response Alcohol Use No March 10, 2019 11:34am Substance/Street Drug Use No March 10, 2019 11:34am Substance Use Treatment No March 10, 2 019 11:34am substance use type does not use March 10, 2019 11:34am Smoking Status Never smoker March 10, 2019 11:34am Assigned Sex Female Vital Signs Vital Reading Result Reference Range Collection Date/ Time Height 64 [in_i] January 11, 2016 1:34pm Weight 92.98 kg January 11, 2016 1:34pm BMI (Body Mass Index) 35.2 kg/m2 January 11, 2016 1:34pm Height 64 [in_i] February 23 3:44pm Weight 92.98 kg February 23 3:44pm Body Temperature 98.3 [degF] 97.6-99.6 February 23, 2 016 3:44pm Heart Rate 74 /min 60-100 February 23 3:44pm Respiratory rate 16 /min 12-February 23, 2 016 3:44pm Oxygen saturation by 98 % 95-100 February Pulse oximetry 3:44pm BP Systolic 120 mm[Hg] 100-140 February 23 3:44pm BP Diastolic 80 mm[Hg] 50-85 February 23 3:44pm BMI (Body Mass Index) 35.2 kg/m2 February 232015 3:44pm Height 64 [in_i] May 24 3:13pm Weight 90.71 kg May 24 3:13pm Heart Rate 73 /min 60-100 May 24 3:13pm Respiratory rate 16 /min 12-May 24, 2 017 3:13pm BP Systolic 124 mm[Hg] 100-140 May 24 3:13pm BP Diastolic 61 mm[Hg] 50-85 May 24 3:13pm BMI (Body Mass Index) 34.3 kg/m2 May 242016 3:13pm Height 64 [in_i] June 23, 2016 10:22am Weight 90.71 kg June 23, 2016 10:22am Body Temperature 97.8 [degF] 97.6-99.6 June 29, 2016 9:48am Heart Rate 53 /min 60-100 June 29, 2016 9:48am Respiratory rate 20 /min -June 29, 2016 9:48am BP Systolic 141 mm[Hg] 100-140 June 29, 2016 9:48am BP Diastolic 87 mm[Hg] 50-85 June 29, 2016 9:48am Height 63.5 [in_i] September 07, 2016 6 :41am Weight 88.45 kg September 07, 2016 6 :41am Body Temperature 97.8 [degF] 97.6-99.6 September 07, 2016 8:14am Heart Rate 63 /min 60-100 September 07, 2016 8 :14am Respiratory rate 18 /min 12-24 September 07, 2016 8:14am Oxygen saturation by 96 % 95-100 September 07, 2 017 8:14am Pulse oximetry BP Systolic 148 mm[Hg] 100-140 September 07, 2016 8 :14am BP Diastolic 91 mm[Hg] 50-85 September 07, 2016 8 :14am BMI (Body Mass Index) 34.0 kg/m2 September 07, 2016 6:41am Weight 88.45 kg October 03, 2017 11:04am Body Temperature 101.7 [degF] 97.6-99.6 October 03, 2017 11:04am Heart Rate 68 /min 60-100 October 03, 2017 11:04am Respiratory rate 15 /min 12-October 03, 2017 11:04am Oxygen saturation by 96 % 95-100 October 03, 2017 Pulse oximetry 11:04am BP Systolic 110 mm[Hg] 100-140 October 03, 2017 11:04am BP Diastolic 70 mm[Hg] 50-85 October 03, 2017 11:04am Weight 88.45 kg November 01, 2017 6:50am Body Temperature 98.4 [degF] 97.6-99.6 November 01, 2017 6:50am Heart Rate 87 /min 60-100 November 01, 2017 6:50am Respiratory rate 16 /min -November 01, 2017 6:50am Oxygen saturation by 97 % 95-100 November 01, 2017 6:50am Pulse oximetry BP Systolic 152 mm[Hg] 100-140 November 01, 2017 6:50am BP Diastolic 82 mm[Hg] 50-85 November 01, 2017 6:50am Height 64 [in_i] December 12, 201 8 11:09am Weight 88.45 kg December 12, 201 8 11:09am Heart Rate 67 /min 60-100 December 12, 201 8 11:09am BP Systolic 122 mm[Hg] 100-140 December 12, 201 8 11:09am BP Diastolic 80 mm[Hg] 50-85 December 12, 201 8 11:09am BMI (Body Mass Index) 33.5 kg/m2 November 11:09am Height 64 [in_i] February 08 10:30am Weight 88.45 kg February 08 10:30am Heart Rate 66 /min 60-100 February 08 10:30am BP Systolic 132 mm[Hg] 100-140 February 08 10:30am BP Diastolic 81 mm[Hg] 50-85 February 08 10:30am BMI (Body Mass Index) 33.5 kg/m2 February 082017 10:30am Weight 88.45 kg February 22 9:10am Body Temperature 98.4 [degF] 97.6-99.6 November 1st, 2 018 9:10am Heart Rate 72 /min 60-100 February 22, 18 9:10am Respiratory rate 16 /min 12-February 22, 2 018 9:10am Oxygen saturation by 98 % 95-100 February Pulse oximetry 9:10am BP Systolic 128 mm[Hg] 100-140 February 22, 20 18 9:10am BP Diastolic 74 mm[Hg] 50-85 February 22, 18 9:10am Height 64 [in_i] February 27, 18 9:55am Weight 88.45 kg February 27, 18 9:55am BP Systolic 110 mm[Hg] 100-140 February 27, 18 9:55am BP Diastolic 70 mm[Hg] 50-85 February 27, 18 9:55am BMI (Body Mass Index) 33.5 kg/m2 February 272017 9:55am Height 64 [in_i] March 13, 2 018 9:16am Weight 88.45 kg March 13, 2 018 9:16am Heart Rate 73 /min 60-100 March 13, 2 018 9:16am Oxygen saturation by 97 % 95-100 March 132017 Pulse oximetry 9:16am BP Systolic 136 mm[Hg] 100-140 March 13, 2 018 9:16am BP Diastolic 70 mm[Hg] 50-85 March 13, 2 018 9:16am BMI (Body Mass Index) 33.5 kg/m2 February 232017 9:16am Height 64 [in_i] March 26, 8:53am Weight 88.45 kg March 26, 8:53am Heart Rate 72 /min 60-100 March 26, 18 8:53am Oxygen saturation by 98 % 95-100 March Pulse oximetry 8:53am BP Systolic 124 mm[Hg] 100-140 March 26, 20 18 8:53am BP Diastolic 62 mm[Hg] 50-85 March 26, 18 8:53am BMI (Body Mass Index) 33.5 kg/m2 March 262017 8:53am Height 65 [in_i] April 13, 2 018 1:55pm Weight 86.18 kg April 13, 2 018 1:55pm Heart Rate 74 /min 60-100 April 13, 2 018 1:55pm Oxygen saturation by 97 % 95-100 April 132017 Pulse oximetry 1:55pm BP Systolic 138 mm[Hg] 100-140 April 13, 2 018 1:55pm BP Diastolic 84 mm[Hg] 50-85 April 13, 2 018 1:55pm BMI (Body Mass Index) 31.6 kg/m2 March 252017 1:55pm Height 65 [in_i] May 10 9:17am Weight 86.18 kg May 10 9:17am Heart Rate 64 /min 60-100 May 10 9:17am Respiratory rate 16 /min 12-24 May 10, 2 019 9:17am Oxygen saturation by 96 % 95-100 April Pulse oximetry 9:17am BP Systolic 122 mm[Hg] 100-140 May 10 9:17am BP Diastolic 79 mm[Hg] 50-85 May 10 9:17am BMI (Body Mass Index) 31.6 kg/m2 May 102018 9:17am BMI (Body Mass Index) 34.0 kg/m2 September 07, 2016 6:41am Height 64.50 [in_i] March 10, 2 019 11:13am Weight 86.18 kg March 10, 2 019 11:13am Body Temperature 99.0 [degF] 97.6-99.6 March 10, 2019 11:13am Heart Rate 85 /min 60-100 March 10, 2 019 11:13am Respiratory rate 18 /min -March 10, 2019 11:13am Oxygen saturation by 98 % 95-100 March 102018 Pulse oximetry 11:13am BP Systolic 128 mm[Hg] 100-140 March 10, 2 019 11:13am BP Diastolic 72 mm[Hg] 50-85 March 10, 2 019 11:13am BMI (Body Mass Index) 32.1 kg/m2 February 222018 11:13am
--- OUTSIDE RECORDS SUMMARY | 2020-09-28 14:26 | XMS_ITS | Continuity of Care Document ---
:1945 Author Organization [facility] Address [address] [place] [address] Phone Care Team Providers Name Role Phone [...] 10:09am Lisinopril Disconti 40 MG PO EVERY June, 2016 2018 10:09am 6:00am Multivitamin Disconti 1 TAB-CA PO EVERY June Novemb nued P MORNING 2nd, er 2016, 10:09am 2018 11:11a m Atenolol Disconti 50 MG PO EVERY June Novemb nued MORNING 2nd, er 2017 , 10:09am 2018 11:12a m Magnesium Disconti 400 [...] 100 MG PO every day 14 Novembe Rito r noemy at bedtime r 17, y 2018 11:51am [...] of lumbar spine February 27, 2018 Active Laceration of finger of left hand Active [...] 6.09 % <5.7 <5.7%: MAIN LAB, [address] [facility] A1c Percent 2019 Normal5.7%-6.4%: [place] [address] 10:20am Prediabetes>=6.5 %: Diagnostic for diabetesGoals for Glycemic Control in Diabetes (ADA 2018)<7.0%: A1c target for non adults with diabetes. More or less stringent glycemic goals may be appropriate for individual patients.<7.5%: A1c target for children and adolescents with type I diabetes. A lower goal is reasonable if it can be achieved without excessive hypoglycemia. Estimated February 128 mg/dL MAIN LAB, [address] [facility] Average 2019 [facility] [address] Glucose 10:20am mg/dL Coronavirus October 23 Negative Negative results [facility] 2018 PCR 2019 do not preclude [facility] Interp 9:00am 2019-nCoV infection andshould not be used as the sole basis for treatment or otherpatient management decisions. Negative results must becombined with clinical observations, patient history, andepidemiologic al information.This test was developed and its performance characteristicsd etermined by [facility]. It has not been cleared or [...] asdefined by the FDAPerformed on the [employer] 7500 Fast. Reference October 23 Ab 7500 Is Patient [facility] Lab Test 2019 [facility] lab Admitted or LABORATO ADAM Performing 9:00am Awaiting Site Admission?:noCOV ID Source: NPTest performed or referred by[facility] [address], [place] [address] Advance Directives Advance Directive Response Recorded Date/Time Does patient have an Advanced Yes June 29, 2016 8:06am Directive? Do we have a copy on file Yes June 29 8:06am here at [facility]? Pt has a Living Will? Yes June 29, 2016 8: 06am Do we have a copy on file Yes June 29 8:06am here at [facility]? Pt has a Power of Lock Tender Chief Operator? Yes June 29 8:06am Do we have a copy on file Yes June 29 8:06am here at [facility]? Chief Complaint and Reason for Visit Chief Complaint COVID19 CURBSIDE TEST Lab Encounters Encounter Location(s) Arrival/Admit Date Discharge/Depart Date Provider(s) Departed [facility] October 24, 2019 October 24, 2019 7:50am Aime Del Cid Clinical Medical 7:49am MD [facility] Departed [facility] March 18, March 18, 2020 Barbara dominguez Clinical Medical 2019 10:00am 10:01am [facility] Departed [facility] April 28, 2020 April 28, 2020 [facility] 10:07am 11:05am [facility] rn Urgent [facility] Assessments No Assessments Information Available Family History Relationship Condition Age at Onset Recorded Date/Ti me Sibling Diabetes mellitus Unknown Parent Uses contact lenses Unknown Parent Diabetes mellitus Unknown Sibling Diabetes mellitus Unknown Functional Status No Functional Status information available Goals Goals may be documented in an alternate section. Immunizations Immunization Event Date Not Given Dose Inside Sales Recruiter Lot Vac cine Reason Number Number Informatio n Statement (VIS) Deta il Tdap April232020 Mental Status No Mental Status Information Available Medical Equipment Implanted Devices Device Date Implanted Device Details LENS [id number] 19.5 June 29, 2016 GUSTAVO: LENS [id number] 19.5 September 07, 2016 GUSTAVO: Insurance Providers Guarantor BRYCE HILL Address [address] [facility] [address] [facility] [address] Contact Info. Home Phone: Payer Policy Id Coverage Id Subscriber's Subscriber Effective Expi ration Name Id Date Date LEIGH [employer]OSS [id number] BRYCE HILL [id number] OUT OF STATE MEDICARE [id number] BRYCE HILL [id number] October OUT (DO NOT 2010 USE) MEDICARE [id number] BRYCE HILL [id number] PART A AND B COVERAGE SELF PAY Self N/A [facility] [place] [id number] BRYCE HILL [id number] [facility] [id number] BRYCE HILL [id number] April (DO 2016 NOT USE) Plan of Treatment Future Tests Future scheduled test information is unavailable Pending Tests Pending diagnostic test information is unavailable Future Visits Future appointment information is unavailable Referrals to Other Providers Reason for Referral Start Provider Provider Contact Provider Address Referral Date Information Barbara Conway Work Phone: [facility] [employer] [address] [facility] [phone] Future Procedures Future procedure information is unavailable [...] 10:15am Oxygen saturation by 97 % 95-100 April Pulse oximetry 10:15am BP Systolic 120 mm[Hg] 100-140 April 28 10:15am BP Diastolic 84 mm[Hg] 50-85 April 28 10:15am BMI (Body Mass Index) 31.6 kg/m2 April 10:15am
--- OUTSIDE RECORDS SUMMARY | 2020-09-28 14:26 | XMS_ITS | Continuity of Care Document ---
:1945 Author Organization [facility] Address [address] [place] [address] Phone Care Team Providers Name Role Phone Mello Partida Attending Provider Hugh Primary Care Provider PCP, Choice Admit Provider Unavailable PCP, Choice Attending Provider Unavailable Zoraida Admit Provider Unavailable Zoraida Attending Provider Unavailable Zoraida Primary Care Provider Unavailable Karen Otto Attending Provider Geri Attending Provider PCP, Given Primary Care Provider Unavailable Maggy Rojas Attending Provider Out of [facility] Primary Care Provider Unavailable Yoel Attending Provider [...] Omeprazole Active 40 MG ORAL EVERY [facility] 10[facility]09am Aspirin Discontinu 81 MG [...] Multivitamin Discontinu 1 TAB-CA ORAL EVERY June [facility] ed P HERBER , r , 2016 10:09am 11:11am Atenolol Discontinu 50 MG ORAL EVERY June [facility] ed MORNIN 2nd, r , G 2016 2018 10:09am 11:12am Magnesium Discontinu 400 MG ORAL EVERY [facility] , [facility] , G 2016 [...] Blood 6.39 4.8-10.8 MAIN LAB , [address] [facility] Count 1000/mm3 [facility] [address] Red Blood Count 4.01 M/mm3 4.20-5.40 DUSTIN N LAB, [address] [facility] [address] Hemoglobin 11.3 g/dL 12.0-16.0 MAIN LAB, [address] [place] [address] [place] [address] Hematocrit 35.9 % 37-47 MAIN LAB, [address] [place] [address] [place] [address] Mean 89.5 fL 81.0-99.0 MAIN LAB, [address] [place] [address] [place] [address] Volume Mean 28.2 pg 27-31 MAIN LAB, [address] [place] [address] [place] [address] Hemoglobin Mean 31.5 g/dL 33-37 MAIN LAB, [address] [place] [address] [place] [address] Hemoglobin Concent Red Cell 14.1 % 11.5-14.5 MAIN LAB, [address] [place] [address] Distribution [facility] [place] [address] Width Platelet Count 259 140-440 MAIN LAB, [address] [place] [address] 1000/mm3 [facility] [address] Mean Platelet 9.9 fL 7.4-10.4 MAIN L AB, [address] [place] [address] [place] [address] Neutrophils (%) 60.3 % 40.0-72.0 MAIN LAB, [address] [place] [address] (Auto) [place] [address] Lymphocytes (%) 29.4 % 17-45 MAIN LAB, [address] [place] [address] (Auto) [place] [address] Monocytes (%) 7.7 % 3-11 MAIN L AB, [address] [place] [address] (Auto) [place] [address] Eosinophils (%) 2.3 % 0-3 MAIN LAB, [address] [place] [address] (Auto) [place] [address] Basophils (%) 0.3 % 0-1 MAIN L AB, [address] [place] [address] (Auto) [place] [address] Neutrophils # 3.85 1.4-6.5 MAIN L AB, [address] [place] [address] (Auto) 1000/mm3 [place] [address] Lymphocytes # 1.88 1.2-3.4 MAIN L AB, [address] [place] [address] (Auto) 1000/mm3 [place] [address] Monocytes # 0.49 0.0-0.8 MAIN LAB , [address] [place] [address] (Auto) 1000/mm3 [place] [address] Eosinophils # 0.15 0.0-0.7 MAIN L AB, [address] [place] [address] (Auto) 1000/mm3 [place] [address] Basophils # 0.02 0.0-0.1 MAIN LAB , [address] [place] [address] (Auto) 1000/mm3 [place] [address] Differential Automated MAIN LA B, [address] [place] [address] Prothrombin 15.1 9.6-11.2 Time SECONDS Prothrombin 21.0 [...] Level 142 mmol/L 137-145 MAIN L AB, [address] [place] [address] Potassium Level 4.1 mmol/L 3.6-5.0 DUSTIN N LAB, [address] [place] [address] Chloride Level 105 mmol/L 98-107 MAIN LAB, [address] [place] [address] Carbon Dioxide 28 mmol/L 22-30 MAIN LAB, [address] [place] [address] Anion Gap 9 7-16 MAIN LAB, [address] [place] [address] Blood Urea 20 mg/dL 7-17 MAIN LAB, [address] [place] [address] Nitrogen [place] [address] Creatinine 0.70 mg/dL 0.52-1.04 MAIN LAB , [address] [place] [address] Glomerular > 60 mL/min >60.0 MAIN LA B, [address] [place] [address] Filtration Rate [place] [address] Calc Glucose Level 138 mg/dL 70-100 MAIN L AB, [address] [place] [address] Calcium Level 9.7 mg/dL 8.4-10.2 MAIN L AB, [address] [place], [place] [address] Microbiology Results Procedure Source Result Collection Result Result Performin g Date/Time Date/Time Comment Site Urine Culture Ur,Clean Escherichia October 05, DUSTIN Radha LAB, [address] [place] [address] Catch Coli 2018 8:42am [facility] [address] Diagnostic Imaging Reports Report Dictated Date/Time Dictated By Status Radiology Report July 15, 2011 Edmar Antony MD completed 12:05am [facility] RADIOLOG Y REPORT PATIENT NAME: WHITNEY [...] 2012 Treva Servin MD compl eted 1:43pm [facility] RADIOLOG Y REPORT PATIENT NAME: WHITNEY [...] 29, 2016 Abisai Rojas MD completed 9:32am [facility] Operativ e Report PATIENT NAME: WHITNEY HILL [id number] DATE OF : 1945 487 ATTENDING PHYSICIAN: Albert Rojas MD PRIMARY CARE PHYS: Out To DICTATING PHYSICIAN: Albert Rojas MD REPORT STATUS: Signed DATE OF SERVICE: CC: Job Number: [id number] Date of Service: 06/29/2016 PREOPERATIVE DIAGNOSIS: Cataract, [...] agreement. [facility] bed, [...] Alc on SN60WF 19.5 diopter lens serial #[id number] was placed in the capsular bag using [...] assessed, and f ound suitable for discharge. [id number] dd: 06/29/2016 09:32:46 dt: 06/29/2016 09:44:06 <Electronically signed by Abisai kraft MD> 06/29/16 6427 Operative Report September 07, 2016 Abisai Rojas MD completed 7:53am [facility] Operativ e Report PATIENT NAME: WHITNEY HILL [id number] DATE OF : 1945 511 ATTENDING PHYSICIAN: Albert Rojas MD PRIMARY CARE PHYS: FOSTER Klein DICTATING PHYSICIAN: Albert Rojas MD REPORT STATUS: Signed CC: Job Number: [id number] Date of Service: 09/07/2016 PREOPERATIVE DIAGNOSIS: Cataract, [...] Hugh sn60wf 19.5 diopter lens (seria l #[id number]) was placed in the capsular bag using [...] assessed, and f ound suitable for discharge. [id number] dd: 09/07/2016 07:53:49 dt: 09/07/2016 09:20:39 <Electronically signed by Abisai kraft MD> 09/07/16 1150 Radiology Report November 01, 2017 Edmar Antony MD completed 8:39am [facility] CAT SCA N REPORT PATIENT NAME: [...] is suspected, but an aneurysm from the quileute of Anand or a small subdural hematoma [...] 01, 2017 Devaughn Cardona MD completed 8:04am [facility] EKG R eport PATIENT NAME: WHITNEY [...] 01, 2017 Lorraine Chambers MD completed 10:47am [facility] MRI R EPORT PATIENT NAME: WHITNEY [...] 2018 Treva Servin MD complet ed 10:10am [facility] RADIOLOG Y REPORT PATIENT NAME: WHITNEY [...] 2018 Lorraine Chambers MD comple fang 2:00pm [facility] MRI R EPORT PATIENT NAME: WHITNEY [...] file Yes June 29 8:06am here at [facility]? Pt has a Living Will? Yes June 29, 2016 8: 06am Do we have a copy on file Yes June 29 8:06am here at [facility]? Pt has a Power of Brewery Technician? Yes June 29 8:06am Do we have a copy on file Yes June 29 8:06am here at [facility]? Chief Complaint and Reason for [...] Arrival/Admit Discharge/Depart Provider(s ) Date Date Departed [facility] Jihan brown Physician/Provi Medical 12:00am [facility]-CONV Misc Visit Comp Pain location Departed [facility] December 27, December 28, 2007 [facility]-DI 2007 12:00am , [facility] Departed [facility] May 28May 28, 2009 Pcp No Clinical Medical 2009 2:00pm 11:59pm [place] Discharged [facility] August 13, 2009 August 27, 2009 1:33pm Pcp Stella Recurring Medical 1:55pm [place] Departed [facility] November 10, 2009 November 10, 2009 Barbara cherry Clinical Medical 9:21am 11:59pm [facility] Center-Chronic Disease Departed [facility] December 01, 2009 December 01, 2009 Barbara Conway Clinical Medical 9:20am 11:59pm [facility] Center-Chronic Disease Departed [facility] December 08, 2009 December 08, 2009 Barbara Conway Clinical Medical 10:25am 11:59pm [facility] Center-Chronic Disease Departed [facility] December 15, 2009 December 15, 2009 Barbara Conway Clinical Medical 9:45am 11:59pm [facility] Center-Chronic Disease Departed [facility] January 08January 08, 2010 Barbara Conway Clinical Medical 2009 2:20pm 11:59pm [facility] Center-Chronic Disease Registered [facility] July 14, 2011 Barbara he [facility]-DI 10:14am [facility] Registered [facility] January 09, [facility] 2011 12:23pm , [facility] Discharged [facility] August 14, 2012 October 18, 2012 Russel Red Medical 1:15pm 6:58am MD [facility] Registered [facility] January 23, 2013 Geri beaulieu [facility] Medical 11:51am [facility] Discharged [facility] January 30, 2013 April 30, 2013 Rush [facility] 12:45pm 10:50am MD [facility] [place]-Physical Therapy Registered [facility] January 30, 2013 Russel Del Cid Clinical Medical 3:54pm MD [facility]-Laboratory Departed [facility] December 24December 24, 2013 Sukhdev michele Physician/[facility] 2013 12:00am [facility] Visit n Primary Care Departed [facility] January 10, January 11, 2016 Iliana Acevedo Physician/[facility] 2015 12:00am RD [facility] Center-Lifestyle Visit Medicine Departed [facility] February 05, 2016 Nidia Winter Physician/[facility] 2016 12:00am АЛЕКСАНДР Bat[facility] Center-Lifestyle Visit Medicine Registered [facility] February 05, [facility] 2015 8:00am [facility] Center-Life Style Med [facility] Departed [facility] February 12, February 13, 2016 Nataliya on Physician/[facility] 2015 12:00am [facility] Visit Medicine Departed [facility] February 19, February 20, 2016 Nidia Winter Physician/[facility] 2015 12:00am АЛЕКСАНДР [facility] Center-Lifestyle Visit Medicine Registered [facility] February 19, Barbara Conway Clinical Medical 2015 8:00am [facility]AND[facility] [facility]OCI[facility] Center-Life Style Med [facility] Departed [facility] February 23, February 24, 2016 Yen Diallo Physician/[facility] 2015 12:00am VELMA [facility] Visit n Urgent [facility] [place] Departed [facility] February 26, February 27, 2016 Nidia Winter Physician/[facility] 2016 12:00am АЛЕКСАНДР [facility]-Lif[facility] Visit Medicine Registered [facility] February 26, [facility] 2015 8:00am [facility] STANDARDS [facility]OCIATE Center-Life Style Med [facility] Departed [facility] March 05, March 05, 2016 Molly Winter Physician/[facility] 2016 12:00am АЛЕКСАНДР [facility] Center-Lifestyle Visit Medicine Registered [facility] March 05, Barbara Conway Clinical Medical 2015 8:00am [facility] [facility]OC[facility] Center-Life Style Med [facility] Departed [facility] May 24, May 24, 2016 Cherryi on Physician/[facility] 2016 12:00am [facility] Visit n Ophthalmology Registered [facility] May 24, Abisai kraft Clinical Medical 2016 2:52pm MD [facility] n Ophthalmology Departed [facility] June 29, 2016 June 29, 2016 Abisai miller Surgical Day Medical 8:00am 9:49am MD [facility]-Surgical Services Departed [facility] June 30, 2016 June 30, 2016 Conversio n Physician/[facility] Medical 12:00am [facility] Visit n Ophthalmology Departed [facility] June 30, 2016 June 30, 2016 Abisai miller Physician/[facility] 8:13am 8:14am MD [facility] Visit n Ophthalmology Departed [facility] July 07, 2016 July 07, 2016 Convers ion Physician/[facility]vi Medical 12:00am [facility] Visit n Ophthalmology Departed [facility] July 07, 2016 July 07, 2016 Abisai Rojas Physician/[facility] 9:12am 9:13am MD [facility] Visit n Ophthalmology Departed [facility] July 14, 2016 July 14, 2016 Convers ion Physician/Provi Medical 12:00am [facility] Visit n Ophthalmology Departed [facility] July 21, 2016 July 21, 2016 Convers ion Physician/Provi Medical 12:00am [facility] Visit n Ophthalmology Departed [facility] September 07, 2016 September 07, 2016 Abisai deleon Surgical Day Medical 6:28am 8:18am MD [facility] Departed [facility] September 08, 2016 September 08, 2016 Conversion Physician/[facility] Medical 12:00am [facility] Visit n Ophthalmology Departed [facility] September 08, 2016 September 08, 2016 Abisai deleon Physician/[facility] 8:05am 8:06am MD [facility] Visit n Ophthalmology Departed [facility] September 15, 2016 September 15, 2016 Conversion Physician/Provi Medical 12:00am [facility] Visit n Ophthalmology Departed [facility] October 13, 2016 October 13, 2016 Cherryio radha Physician/[facility] 12:00am [facility] Visit n Ophthalmology Departed [facility] October 13, 2016 October 13, 2016 Abisai miller Physician/[facility] 8:59am 9:00am MD [facility] Visit n Ophthalmology Departed [facility] October 03, 2017 October 03, 2017 null Emergency Medical 10:36am 11:45am [facility] n [facility] [place] Departed [facility] October 03, 2017 October 03, 2017 Yen wallace Physician/[facility] 10:42am 10:43am VELMA [facility] Visit n [facility] [place] Departed [facility] November 01, 2017 November 01, 2017 null Emergency Medical 6:46am 11:28am Center-Emergency Department Departed [facility] December 12, 2017 December 12, 2017 [facility] 12:00am [facility] Visit n Dermatology Departed [facility] December 12, 2017 December 12, 2017 Kaitlynn Ivory Referred Medical 7:45am 7:46am MD Suha Center-Pathology Departed [facility] December 12, 2017 December 12, 2017 Kaitlynn Ivory Physician/[facility] 11:08am 11:09am MD Suha [facility] Visit n Dermatology Departed [facility] February 08, February 08, 2018 Conversi on Physician/[facility]vi Medical 2017 12:00am [facility] Visit n Dermatology Departed [facility] February 08, February 08, 2018 Waleska Ivory Physician/[facility] 2017 9:41am 9:42am MD Suha [facility] Visit n Dermatology Discharged [facility] February 20, March 12, 2018 Barbara whitney Recurring Medical 2018 9:30am 11:29am [facility] Dep[facility] February 22February 22, 2018 null Emergency Medical 2018 8:55am 10:19am [facility] n [facility]gent [facility] Departed [facility] February 22February 22, 2018 Ajay Physician/[facility] Medical 2017 8:59am 9:00am CONE CLASSIFIER TENDER [facility] Visit n Urgent [facility] Departed [facility] February 27February 27, 2018 DEEPIKA mcneal Physician/[facility] Medical 2018 12:00am Fernandez [facility] Visit n Orthopedic&Rehab Departed [facility] February 27February 27, 2018 DEEPIKA mcneal Physician/[facility] 2017 9:24am 9:25am Fernandez [facility] Visit n Orthopedics Departed [facility] February 27February 27, 2018 DEEPIKA mcneal [facility] 2017 10:03am 10:04am Fernandez [facility] Orthopedics Departed [facility] March 13March 13, 2018 DEEPIKA oro Physician/[facility] Medical 2018 12:00am Fernandez [facility] Visit n Orthopedic&Rehab Departed [facility] March 13March 13, 2018 DEEPIKA oro Physician/[facility] Medical 2018 9:05am 9:06am [facility] Visit n Orthopedics Discharged [facility] March 21April 25, 2018 DEEPIKA mcneal [facility] Medical 2017 10:30am 11:29am [facility] Dep[facility] March 26March 26, 2018 DEEPIKA mcneal Physician/[facility] Medical 2017 12:00am [facility] Visit n Orthopedic&Rehab Departed [facility] March 26March 26, 2018 DEEPIKA mcneal Physician/[facility] Medical 2017 8:52am 8:53am [facility] Visit n Orthopedics Departed [facility] April 09April 09, 2018 DEEPIKA oro [facility]- 2017 12:08pm 12:09pm [facility] Departed [facility] April 11April 11, 2018 DEEPIKA oro Physician/[facility] Medical 2017 12:00am [facility] Visit n Orthopedic&Rehab Departed [facility] April 13April 13, 2018 DEEPIKA oro Physician/[facility] Medical 2017 12:00am [facility] Visit n Orthopedic&Rehab Departed [facility] April 13April 13, 2018 DEEPIKA oro Physician/[facility] Medical 2017 1:53pm 1:54pm [facility] Visit n Orthopedics Departed [facility] May 10, May 10, 2018 Nataliya donahue Physician/[facility] Medical 2018 12:00am [facility] Visit n Orthopedic&Rehab Departed [facility] May 10May 10, 2018 Juvencio Lao Physician/[facility] Medical 2018 9:13am 9:14am DO [facility] Visit n Orthopedics Departed [facility] August 20, 2018 August 20, 2018 Convers ion Physician/Provi Medical 12:00am [facility] Visit n Dermatology Departed [facility] August 21, 2018 August 21, 2018 Convers ion Physician/Provi Medical 12:00am [facility] Visit n Orthopedic&Rehab Departed [facility] August 21, 2018 August 21, 2018 Juvencio Orozco Physician/Provi Medical 8:51am 8:52am DO [facility] Visit n Orthopedics Departed [facility] March 10, March 10, 2019 [facility] Emergency Medical 2018 11:07am 12:00pm [facility] n Urgent [place] Registered [facility] March 10 Abbey Physician/Provi Medical 2018 11:09am Walker david Office [facility] Visit n Urgent [facility] [place] Assessments No Assessments Information Available Family History [...] Insurance Providers Guarantor BRYCE HILL Address [address] [address] Contact Info. Home Phone: Payer Policy Id Coverage Id Subscriber's Subscriber Effective Expi ration Name Id Date Date LEIGH RAMIREZ [id number] BRYCE HILL [id number] OUT OF STATE MEDICARE [id number] BRYCE HILL [id number] January (DO NOT 2010 USE) MEDICARE [id number] BRYCE HILL [id number] PART A AND B COVERAGE SELF PAY Self N/A [place] [id number] BRYCE HILL [id number] [facility] CARE [place] [id number] BRYCE HILL [id number] April (DO 2016 NOT USE) Plan of Treatment Future Tests Future scheduled test information is unavailable Pending Tests Pending diagnostic test information is unavailable Future Visits Future appointment information is unavailable Referrals to Other Providers Reason for Referral Start Provider Provider Contact Provider Address Referral Date Information Barbara TIPTONP [facility] Juan Lao Work Phone: [facility] Orthopaedic karen Haskins MD [address] [address] Barbara Conway STORE STANDARDS ASSOCIATE Barbara Conway STORE STANDARDS ASSOCIATE Barbara TIPTONP Town [facility] Future Procedures Future procedure [...] 3:44pm Body Temperature 98.3 [degF] 97.6-99.6 February 23 2 016 3:44pm Heart Rate 74 /min 60-100 February 23 3:44pm Respiratory rate 16 /min 12-24 February 23 2 016 3:44pm Oxygen saturation by 98 [...] 2017 6:50am Height 64 [in_i] December 12, 8 11:09am Weight 88.45 kg December 12, 8 11:09am Heart Rate 67 /min 60-100 December 12 201 8 11:09am BP Systolic 122 mm[Hg] [...] Heart Rate 72 /min 60-100 February 22, 20 18 9:10am Respiratory rate 16 /min 12-February [...] [id number] 9:16am Height 64 [in_i] March 26, 18 8:53am Weight 88.45 kg March 26, 18 8:53am Heart Rate 72 /min 60-100 March [...]
[2020-09-28 20:24] LABS: COMMENT (LAB VIEW ONLY) 61.81 mg/dL; Microalb ug/mg Crea 33.3 ug/mg Cr
[2020-09-28 20:48] LABS: ALT 20 U/L (14-59); AST 15 U/L (15-37); Albumin 3.5 g/dL (3.4-5.0); Alkaline Phosphatase 78 U/L (46-116); BUN 24 mg/dL (7-18); Bilirubin, Total 0.3 mg/dL (0.2-1.0); CREATININE 1.1 mg/dL (0.55-1.02); Calcium 8.8 mg/dL (8.5-10.1); Calculated LDL 75 mg/dL (<100); Chloride 106 mmol/L (98-107); Cholesterol 152 mg/dL (<200); Estimated GFR 48.55 (mL/min/1.73m2); Glucose 99 mg/dL (74-106); HDL Cholesterol 62 mg/dL (40-60); Magnesium 1.8 mg/dL (1.8-2.4); Potassium 4.5 mmol/L (3.5-5.1); Sodium 141 mmol/L (136-145); Total Protein 6.4 g/dL (6.4-8.2); Triglyceride 79 mg/dL (<150); Vitamin B12 414 pg/mL (193-986)
== END 2020-09-28 14:20 | disposition home or self-care (01) ==
LOC: NCHCN 14:19
PROVIDERS: PCP Nurse Practitioner Family; Visit Provider Nurse Practitioner Family
DX: E78.5 Hyperlipidemia, unspecified (principal); E11.9 Type 2 diabetes mellitus without complications; I10 Essential (primary) hypertension; E66.9 Obesity, unspecified
CPT/HCPCS: 80053; 80061; 82043; 82570; 82607; 83735

== ENCOUNTER 2020-12-23 16:55 | Outpatient (REF) | payer MEDICARE, OTHER, SELFPAY ==
[2020-12-23 22:17] LABS: COMMENT (LAB VIEW ONLY) 41.95 mg/dL; Microalb ug/mg Crea 8.3 ug/mg Cr
[2020-12-23 22:21] LABS: Bacteria Many HPF (Negative); C & S Indicated? Yes; Casts Negative LPF (Negative); Crystals Negative HPF (Negative); Epithelial Cells Negative HPF (Negative); Mucus Negative (Negative); Other Cells Negative (Negative); RBC Negative HPF (0-2)
== END 2020-12-23 16:56 | disposition home or self-care (01) ==
LOC: NCHCN 16:55
PROVIDERS: PCP Nurse Practitioner Family; Visit Provider Nurse Practitioner Family
DX: E11.9 Type 2 diabetes mellitus without complications (principal)
CPT/HCPCS: 87077; 81015; 82043; 82570; 87086; 87186

== ENCOUNTER 2021-03-29 17:26 | Outpatient (REF) | payer MEDICARE, OTHER, SELFPAY ==
[2021-03-29 21:36] LABS: Anion Gap 8.5 mmol/L (3-11); BUN 19 mg/dL (7-18); CO2 26.5 mmol/L (21.0-32.0); CREATININE 1.1 mg/dL (0.55-1.02); Calcium 8.9 mg/dL (8.5-10.1); Chloride 105 mmol/L (98-107); Estimated GFR 48.42 (mL/min/1.73m2); Glucose 107 mg/dL (74-106); Potassium 4.1 mmol/L (3.5-5.1); Sodium 140 mmol/L (136-145)
== END 2021-03-29 17:27 | disposition home or self-care (01) ==
LOC: NCHCN 17:26
PROVIDERS: PCP Nurse Practitioner Family; Visit Provider Nurse Practitioner Family
DX: E11.9 Type 2 diabetes mellitus without complications (principal); I10 Essential (primary) hypertension
CPT/HCPCS: 80048

== ENCOUNTER 2022-08-08 16:06 | Outpatient (REF) | payer MEDICARE, OTHER, SELFPAY ==
[2022-08-08 22:11] LABS: COMMENT (LAB VIEW ONLY) 49.48 mg/dL; Microalb ug/mg Crea 5.9 ug/mg Cr
== END 2022-08-08 16:07 | disposition home or self-care (01) ==
LOC: NCHCN 16:06
PROVIDERS: PCP Nurse Practitioner Family; Visit Provider Nurse Practitioner Family
DX: E11.9 Type 2 diabetes mellitus without complications (principal)
CPT/HCPCS: 82043; 82570

== ENCOUNTER 2023-09-04 14:42 | Outpatient (REF) | payer MEDICARE, OTHER, SELFPAY ==
[2023-09-04 15:42] LABS: Microalb ug/mg Crea 21.5 ug/mg Cr
[2023-09-04 15:54] LABS: HCT 40.3 % (36.0-46.0); HGB 12.7 g/dL (11.2-15.7); MCH 28.7 pg (27.0-33.0); MCHC 31.5 % (32.0-36.0); MCV 91 fL (80-95); MPV 9.7 fL (8.0-11.0); Platelet Count 294 10^3/uL (130-400); RBC 4.42 10^6/uL (3.93-5.22); RDW 12.8 % (11.7-14.6); RDW-SD 42.6 fL; WBC 7.14 10^3/uL (4.4-10.8)
[2023-09-04 16:35] LABS: ALT 20 U/L (14-59); AST 20 U/L (15-37); Alkaline Phosphatase 76 U/L (46-116); Anion Gap 10.2 mmol/L (3-11); BUN 18 mg/dL (7-18); Bilirubin, Total 0.4 mg/dL (0.2-1.0); CO2 27.8 mmol/L (21.0-32.0); CREATININE 0.9 mg/dL (0.55-1.02); Calcium 9.6 mg/dL (8.5-10.1); Chloride 106 mmol/L (98-107); Estimated GFR 65.84 (mL/min/1.73m2); Glucose 92 mg/dL (74-106); Potassium 3.9 mmol/L (3.5-5.1); Sodium 144 mmol/L (136-145); TSH 0.71 uIU/Ml (0.36-3.74); Total Protein 7.7 g/dL (6.4-8.2); Vitamin B12 747 pg/mL (193-986)
[2023-09-04 17:05] LABS: Hemoglobin A1C 6.5 % (<5.7)
== END 2023-09-04 14:43 | disposition home or self-care (01) ==
LOC: NCHCN 14:42
PROVIDERS: PCP Nurse Practitioner Family; Visit Provider Nurse Practitioner Family
DX: E11.9 Type 2 diabetes mellitus without complications (principal); I10 Essential (primary) hypertension; R53.83 Other fatigue; Z79.899 Other long term (current) drug therapy
CPT/HCPCS: 80053; 85027; 82043; 82570; 82607; 83036; 84443

== ENCOUNTER 2024-03-18 22:02 | Outpatient (REF) | payer MEDICARE, OTHER, SELFPAY ==
--- OUTSIDE RECORDS SUMMARY | 2024-03-18 22:04 | XMS_ITS | Continuity of Care Document ---
Author Name [facility] Address [address] [place] [address] Organization [facility] Address [address] [place] [id number] Care Team Providers Care Blue Split Trimmer Name Role Phone Barbara Conway Primary Care Physician Barbara Conway Attending Physician Allergies, Adverse Reactions, Alerts Allergen Type Severity Reaction Last Updated Verified Status simvastatin Adverse Reaction Moderate April 28, 2020 Y Active Sulfa (Sulfonamide Antibiotics) Adverse Reaction Unknown April 28, 2020 Y A ctive Medications Active Medications Medication Dose Units Route Sig Qty Days Start Date Status Ins tructions Atorvastatin 40 MG ORAL BEDTIME Jun Active Omeprazole 40 MG ORAL EVERY MORNING June 23, 2016 Active Calcium Carbonate [Calcium 500] 500 MG ORAL TWICE A DAY June 23, 2016 Active Metformin 1000 MG ORAL TWICE A DAY June 23, 2016 Active Ibuprofen [Motrin Ib] 600 MG ORAL THREE TIMES A DAY PRN For Pain June 23, 2016 Active Metoprolol Succinate November 01, 2017 Active Lisinopril Novem 2018 Active Fluticasone Propionate 1 SPR NASAL Q12H 9.9 March 10, 2019 Active administer into each nostril Discontinued Medications Medication Dose Units Route Sig Qty Days Start Date Discontinued Date Status Instructions Metformin 500 MG ORAL EVERY MORNI NG June 23, 2016 September 02, 2016 Disconti nued Aspirin 81 MG ORAL BEDTI ME June 23, 2016 September 02, 2016 Disconti nued Lisinopril 40 MG ORAL EVERY MORNI NG June 23, 2016 November 01, 2017 Disconti nued Multivitamin 1 TAB-CA P ORAL EVERY MORNI NG June 23, 2016 March 10, 2019 Disconti nued Atenolol 50 MG ORAL EVERY MORNI NG June 23, 2016 March 10, 2019 Disconti nued Magnesium 400 MG ORAL EVERY EVENI NG June 23, 2016 March 10, 2019 Disconti nued Nitrofurantoi n Monohyd/M-Cry st [Macrobid] 1 CAP ORAL Q12H PRN For Bladd er Spasm s June 23, 2016 November 01, 2017 Disconti nued Cephalexin 500 MG ORAL TWICE A DAY 14 October 03, 2017 November 01, 2017 Disconti nued Prednisone 10 MG ORAL DAILY 5 5 Novem be r 2018March 15, 2019 Disconti nued Guaifenesin 400 MG ORAL .q8hr 15 5 Nove mbe r 2018March 15, 2019 Disconti nued Benzonatate 100 MG ORAL every day at bedti ga PRN For cough 14 Novembe r 2018April 28, 2020 Disconti nued Problem List Active Problems Medical Problem Onset Date Status Combined forms of age-related cataract April 262016 Neoplasm of uncertain behavior of skin November Type 2 diabetes mellitus May 24, 2016 Trochanteric bursitis February 27, 2018 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 May 10, 2018 Thoracic and lumbosacral neuritis May 10 19 History of cataract extraction July 07, 2016 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 27, 2018 Inactive/Resolved Problems Medical Problem Onset Date Status Acute hip pain Inactive Acute Eustachian salpingitis, bilateral Inactive Acute maxillary sinusitis Inacti ve Post concussion syndrome Inactiv e Acute UTI Inactive Impacted cerumen of left ear [place] ctive Laceration of finger of left hand Inactive Procedures Procedure Date Status US Kidney (Renal Complete) January 22, 2021 compl eted Relevant Diagnostic Tests and/or Laboratory Data Laboratory Results Test Date/Time Result Interp. Ref. Range Result Co mment Sodium Level February 02, 2021 11:57am 138 mmol/L 137-145 Potassium Level February 02, 2021 11:57am 4.1 mmol/L 3.6-5.0 Chloride Level February 02, 2021 11:57am 99 mmol/L 98-107 Carbon Dioxide Level February 02, 2021 11:57am 30 mmol/L 22-30 Anion Gap December 17, 2020 9:39am 9 7-16 Blood Urea Nitrogen February 02, 2021 11:57am 18 mg/dL High 7-17 Creatinine February 02, 2021 11:57am 1.02 mg/dL 0.52-1.04 Glomerular Filtration Rate Calc February 02, 2021 11:57am 53 mL/min Low 60.0- Glucose Level February 02, 2021 11:57am 115 mg/dL High 70-100 Calcium Level February 02, 2021 11:57am 9.5 mg/dL 8.4-10.2 Calcium Adjusted for Albumin February 02, 2021 11:57am 9.7 mg/dL 8.4-10.2 Phosphorus Level February 02, 2021 11:57am 4.3 mg/dL 2.5-4.5 Albumin February 02, 2021 11:57am 4.1 g/dL 3.5-5.0 Hemoglobin A1c Percent March 18, 2020 10:20am 6.09 % High <5.7%: Normal 5.7%-6.4%: Prediabetes >=6.5%: Diagnostic for diabetes Goals for Glycemic Control in Diabetes (ADA 2018) <7.0%: A1c target for non adults with diabetes. More or less stringent glycemic goals may be appropriate for individual patients. <7.5%: A1c target for children and adolescents with type I diabetes. A lower goal is reasonable if it can be achieved without excessive hypoglycemia. Estimated Average Glucose mg/dL March 18, 2020 10:20am 128 mg/dL Chief Complaint and Reason for Visit Encounter Admit Date Chief Complaint Reason for V isit Departed Clinical February 02, 2021 11:28am Lab Hospital Discharge Instructions No known hospital discharge instructions. Hospital Discharge Medications Medication Dose Units Route Sig Qty Days Order Date Status Instructions Atorvastatin 40 MG ORAL BEDTIME Jun Active Metformin 500 MG ORAL EVERY MORNING June 23, 2016 Discontinued Omeprazole 40 MG ORAL EVERY MORNING June 23, 2016 Active Aspirin 81 MG ORAL BEDTIME June 23, 2016 Discontinued Calcium Carbonate 500 MG ORAL TWICE A DAY June 23, 2016 Active Metformin 1000 MG ORAL TWICE A DAY June 23, 2016 Active Ibuprofen 600 MG ORAL THREE TIMES A DAY PRN For Pain June 23, 2016 Active Lisinopril 40 MG ORAL EVERY MORNING June 23, 2016 Discontinued Multivitamin 1 TAB-CA P ORAL EVERY MORNING June 23, 2016 Discontinued Atenolol 50 MG ORAL EVERY MORNING June 23, 2016 Discontinued Magnesium 400 MG ORAL EVERY EVENING June 23, 2016 Discontinued Nitrofurantoin Monohyd/M-Cryst 1 CAP ORAL Q12H PRN For Bladder Spasms June 23, 2016 Discontinued Cephalexin 500 MG ORAL TWICE A DAY October 03, 2017 Discontinued Metoprolol Succinate November 01, 2017 Active Lisinopril 2018 Active Prednisone 10 MG ORAL DAILY 5 5 2018 Discontinued Fluticasone Propionate 1 SPR NASAL Q12H 9.9 March 10, 2019 Active administer into each nostril Guaifenesin 400 MG ORAL .q8hr 15 5 Lewislorin miquel 2018 Discontinued Benzonatate 100 MG ORAL every day at bedtime PRN For cough 14 March 10, 2019 Discontinued Encounters Encounter Facility Location Admit/Visit Date Discharge/Departure Date Attending Provider Departed Clinical [facility] February 02, 2021 11:28am February 02, 2021 11:29am Barbara Conway Departed Clinical [facility] January 22, 2021 12:34pm January 22, 2021 12:35pm Evelyn Gannon Departed [facility] December 17, 2020 9:33am December 17, 2020 9:34am Evelyn Gannon Departed [facility] November 16, 2020 11:02am November 16, 2020 11:03am Barbara Conway Departed Physician/Pr ovider Office Visit [facility] April 28, 2020 12:00pm April 28, 2020 1:00pm Frances Millard Departed Emergency [facility] April 28, 2020 10:07am April 28, 2020 11:05am Departed [facility] March 18, 2020 10:00am March 18, 2020 10:01am Barbara Conway Functional Status No known functional status. Immunizations Immunization Name Date Given Type Tdap April 28, 2020 Administered Plan of Care No Known Plan of Care Information Social History Query Response Date Recorded Comment Alcohol Use No April 28, 2020 10:43am Smoking Status Never smoker April 28, 2020 10:43am Substance Use Treatment No April 28, 2020 1 0:43am Substance/Street Drug Use No April 28, 2020 10:43am substance use type does not use April 28, 2020 10:43a m Query Response Start Date Stop Date Smoking Status Never smoker Vital Signs Vital Reading Result Reference Range Collection Date/Time Height 5 ft 5 in April 28, 2020 10:15am Weight 86.183 kg April 28, 2020 10:15am Temperature 97.9 F 97.6 F-99.6 F April 28 10:15am Pulse 67 BPM 60-100 April 28, 2020 10:15am Respiration 12 RPM 12-24 April 28, 2020 10:15am Pulse Oximetry 97 % 95-100 April 28 10:15am Blood Pressure Systolic 120 100-140 [facility] 2020 10:15am Blood Pressure Diastolic 84 50-85 [facility] 2020 10:15am Body Mass Index 31.6 April 28 021 10:15am
--- OUTSIDE RECORDS SUMMARY | 2024-03-18 22:04 | XMS_ITS | Continuity of Care Document ---
Author Name [facility] Address [address] [place] [address] [facility] Address [address] [place] [address] Care Team Providers Care Inspector Assembly Name Role Phone Evelyn Gannon Attending Physician Barbara Conway Primary Care Physician Allergies, Adverse Reactions, Alerts [...] 100 MG ORAL every day at bedti me PRN For cough 14 Novembe r 2018April [...] UTI Inactive Impacted cerumen of left ear [place] ctive Laceration of finger of left hand Inactive Procedures No known history of procedures. Relevant Diagnostic Tests and/or Laboratory Data Laboratory Results Test Date/Time Result Interp. Ref. Range Result Co mment Sodium Level December 17, 2020 9:39am 139 mmol/L 137-145 Potassium Level December 17, 2020 9:39am 4.7 mmol/L 3.6-5.0 Chloride Level December 17, 2020 9:39am 104 mmol/L 98-107 Carbon Dioxide Level December 17, 2020 9:39am 26 mmol/L 22-30 Anion Gap December 17, 2020 9:39am 9 7-16 Blood Urea Nitrogen December 17, 2020 9:39am 15 mg/dL 7-17 Creatinine December 17, 2020 9:39am 1.03 mg/dL 0.52-1.04 Glomerular Filtration Rate Calc December 17, 2020 9:39am 52 mL/min Low 60.0- Glucose Level December 17, 2020 9:39am 93 mg/dL 70-100 Calcium Level December 17, 2020 9:39am 10.0 mg/dL 8.4-10.2 Hemoglobin A1c Percent March 18, 2020 10:20am [...] Complaint Reason for V isit Departed Clinical December 17, 2020 9:33am Lab Hospital Discharge Instructions No known hospital [...] Guaifenesin 400 MG ORAL .q8hr 15 5 [place] sanjuana 2018 Discontinued Benzonatate 100 MG ORAL every day at bedtime PRN For cough 14 March 10, 2019 Discontinued Encounters Encounter Facility Location Admit/Visit Date Discharge/Departure Date Attending Provider Departed Clinical [facility] December 17, 2020 9:33am December 17, 2020 9:34am Evelyn Gannon Departed Clinical [facility] November 16, 2020 11:02am November 16, 2020 11:03am Barbara Conway Departed Physician/Pr ovider Office Visit [facility] April 28, 2020 12:00pm April 28, 2020 1:00pm Frances Millard Departed Emergency [facility] April 28, 2020 10:07am April 28, 2020 11:05am Departed Clinical [facility] March 18, 2020 10:00am March [...] 28 10:15am Blood Pressure Systolic 120 100-140 Lucas heather 2020 10:15am Blood Pressure Diastolic 84 50-85 Hremann uary 2020 10:15am Body Mass Index 31.6 April 28 10:15am
--- OUTSIDE RECORDS SUMMARY | 2024-03-18 22:05 | XMS_ITS | Continuity of Care Document ---
Author Name [facility] Address [address] [place] [address] Organization [facility] Address [address] [place] [address] Care Team Providers Care Physical Medicine Physician Name Role Phone Evelyn Gannon Attending Physician [...] UTI Inactive Impacted cerumen of left ear [place] ctive Laceration of finger of left hand [...] Date Discharge/Departure Date Attending Provider Departed Clinical [facility] December 17, 2020 9:33am December 17, 2020 9:34am Evelyn Gannon Departed Clinical [facility] November 16, 2020 11:02am November 16, 2020 11:03am Barbara Conway Departed Physician/Pr ovider Office Visit [facility] April 28, 2020 12:00pm April 28, 2020 1:00pm Frances Millard Departed Emergency [facility] April 28, 2020 10:07am April 28, 2020 11:05am Departed Clinical [facility] March 18, 2020 10:00am March [...] 10:15am Blood Pressure Diastolic 84 50-85 Hermann uary 2020 10:15am Body Mass Index 31.6 April 28 10:15am
--- OUTSIDE RECORDS SUMMARY | 2024-03-18 22:05 | XMS_ITS | Continuity of Care Document ---
Author Name [facility] Address [address] [place] [address] Organization [facility] Address [address] [place] [address] Care Team Providers Care Farmhand Name Role Phone Barbara Conway Primary Care Physician [phone] Evelyn Gannon Attending Physician [phone] Allergies, Adverse Reactions, Alerts Allergen Type Severity [...] Complaint Reason for V isit Departed Clinical January 22, 2021 12:34pm Chroni c kidney disease, stage 3b Hospital Discharge Instructions No known hospital discharge [...] TWICE A DAY 14 October 03, 2017 Discontinued Metoprolol Succinate November 01, 2017 Active Lisinopril 2018 Active Prednisone 10 MG ORAL DAILY 5 5 2018 Discontinued Fluticasone Propionate 1 SPR NASAL Q12H 9.9 March 10, 2019 Active administer into each nostril Guaifenesin 400 MG ORAL .q8hr 15 5 [place] la[place]ur 2018 Discontinued Benzonatate 100 MG ORAL every day at bedtime PRN For cough 14 March 10, 2019 Discontinued Encounters Encounter Facility Location Admit/Visit Date Discharge/[facility] January 22, 2021 12:35pm [facility], 2020 9:33am December 17, 2020 9:34am [facility], 2020 11:02am November 16, 2020 11:03am Barbara Conway Departed Physician/Pr ovider Office Visit [facility] April 28, 2020 12:00pm April 28, 2020 1:00pm Frances Millard Departed Emergency [facility] April 28, 2020 10:07am April 28, 2020 11:05am Departed [facility] March 18, 2020 10:00am March 18, [...] 10:15am Blood Pressure Systolic 120 100-140 Lucas 2020 10:15am Blood Pressure Diastolic 84 50-85 Hermann rosario 2020 10:15am Body Mass Index 31.6 April 28 10:15am
--- OUTSIDE RECORDS SUMMARY | 2024-03-18 22:05 | XMS_ITS | Continuity of Care Document ---
Author Name [facility] Address [address] [place] [id number] Organization [facility] Address [address] [place] [address] Care Team Providers Care Finished Goods Inspector Name Role Phone Barbara Conway Primary Care Physician Barbara Conway Attending Physician [phone] Allergies, Adverse Reactions, Alerts Allergen Type Severity Reaction Last Updated Verified Status simvastatin Adverse Reaction Moderate April 28, 2020 Y Active Sulfa (Sulfonamide Antibiotics) Adverse Reaction Unknown April 28, 2020 Y A ctive Medications Active Medications Medication Dose Units Route Sig Qty Days Start Date Status Ins tructions Atorvastatin 40 MG ORAL BEDTIME Mar 2016 Active Omeprazole 40 MG ORAL EVERY MORNING [...] UTI Inactive Impacted cerumen of left ear [place] ctive Laceration of finger of left hand Inactive Procedures No known history of procedures. Relevant Diagnostic Tests and/or Laboratory Data Laboratory Results Test Date/Time Result Interp. Ref. Range Result Co mment Sodium Level November 16, 2020 11:17am 137 mmol/L 137-145 Potassium Level November 16, 2020 11:17am 4.6 mmol/L 3.6-5.0 Chloride Level November 16, 2020 11:17am 103 mmol/L 98-107 Carbon Dioxide Level November 16, 2020 11:17am 25 mmol/L 22-30 Anion Gap November 16, 2020 11:17am 9 7-16 Blood Urea Nitrogen November 16, 2020 11:17am 22 mg/dL High 7-17 Creatinine November 16, 2020 11:17am 1.30 mg/dL High 0.52-1.04 Glomerular Filtration Rate Calc November 16, 2020 11:17am 40 mL/min Low 60.0- Glucose Level November 16, 2020 11:17am 113 mg/dL High 70-100 Calcium Level November 16, 2020 11:17am 9.6 mg/dL 8.4-10.2 Hemoglobin A1c Percent March 18, [...] Complaint Reason for V isit Departed Clinical November 16, 2020 11:02am Lab Hospital Discharge Instructions No known hospital [...] Date Discharge/Departure Date Attending Provider Departed Clinical [facility] November 16, 2020 11:02am November 16, 2020 11:03am Barbara Conway Departed Physician/Pr ovider Office Visit [facility] April 28, 2020 12:00pm April 28, 2020 1:00pm Frances Millard Departed Emergency [facility] April 28, 2020 10:07am April 28, 2020 11:05am Departed Clinical [facility] March 18, 2020 10:00am March [...]
--- OUTSIDE RECORDS SUMMARY | 2024-03-18 22:05 | XMS_ITS | Continuity of Care Document ---
Author Name [facility] Address [address] [place] [address] Organization [facility] Address [address] [place] [address] Care Team Providers Care Upholstery Covers Inspector Name Role Phone Barbara Conway Primary [...] UTI Inactive Impacted cerumen of left ear [place] ctive Laceration of finger of left hand Inactive Procedures Procedure Date Status US Kidney (Renal Complete) January 22, 2021 compl eted Relevant Diagnostic Tests and/or Laboratory Data Laboratory Results Test Date/Time Result Interp. Ref. Range Result Co mment Urine Color August 30, 2021 12:09pm Yellow Urine Clarity August 30, 2021 12:09pm Clear Urine pH August 30, 2021 12:09pm 6.0 Urine Specific [place] August 30, 2021 12:09pm 1.010 Urine Protein August 30, 2021 12:09pm Negative mg/dL Urine Glucose (UA) August 30, 2021 12:09pm Norm mg/dL Urine Ketones August 30, 2021 12:09pm Neg Urine Nitrite August 30, 2021 12:09pm Negative Urine Bilirubin August 30, 2021 12:09pm Neg mg/dL Urine Urobilinogen August 30, 2021 12:09pm norm mg/dL Urine Leukocyte Esterase August 30, 2021 12:09pm Neg WBC/uL Urine Blood August 30, 2021 12:09pm Neg DALTON/uL Urine Culture Done August 30, 2021 12:09pm No CULTURE NOT INDICATED. Sodium Level August 23, 2021 8:34am 138 mmol/L 137-145 Potassium Level August 23, 2021 8:34am 4.9 mmol/L 3.6-5.0 Chloride Level August 23, 2021 8:34am 103 mmol/L 98-107 Carbon Dioxide Level August 23, 2021 8:34am 26 mmol/L 22-30 Anion Gap August 23, 2021 8:34am 9 7-16 Blood Urea Nitrogen August 23, 2021 8:34am 18 mg/dL High 7-17 Creatinine August 23, 2021 8:34am 1.00 mg/dL 0.52-1.04 Glomerular Filtration Rate Calc August 23, 2021 8:34am 54 mL/min Low 60.0- Glucose Level August 23, 2021 8:34am 89 mg/dL 70-100 Calcium Level August 23, 2021 8:34am 9.8 mg/dL 8.4-10.2 Calcium Adjusted for Albumin August 23, 2021 8:34am 9.7 mg/dL 8.4-10.2 Phosphorus Level August 23, 2021 8:34am 3.8 mg/dL 2.5-4.5 Albumin August 23, 2021 8:34am 4.4 g/dL 3.5-5.0 Hemoglobin A1c Percent August 23, 2021 8:34am 6.24 % High <5.7%: Normal 5.7%-6.4%: Prediabetes >=6.5%: [...] without excessive hypoglycemia. Estimated Average Glucose mg/dL August 23, 2021 8:34am 132 mg/dL Chief Complaint and Reason for Visit Encounter Admit Date Chief Complaint Reason for V isit Departed Clinical August 30, 2021 11:52am Lab Hospital Discharge Instructions No known hospital [...] Guaifenesin 400 MG ORAL .q8hr 15 5 2018 Discontinued Benzonatate 100 MG ORAL every day at bedtime PRN For cough 14 March 10, 2019 Discontinued Encounters Encounter Facility Location Admit/Visit Date Discharge/Departure Date Attending Provider [facility] August 30, 2021 11:52am August 30, 2021 11:53am Barbara Conway [facility] August 23, 2021 8:29am August 23, 2021 8:30am Barbara Conway [facility] February 02, 2021 11:28am February 02, 2021 11:29am Barbara Conway [facility] January 22, 2021 12:34pm January 22, 2021 12:35pm [facility], 2020 9:33am December 17, 2020 9:34am [facility] November 16, 2020 11:02am November 16, 2020 11:03am Barbara Conway Functional Status No known functional status. Immunizations Immunization Name Date Given Type Tdap April 28, 2020 Administered Plan of Care No Known Plan of Care Information Social History No known social history. Vital Signs No known vital signs results.
--- OUTSIDE RECORDS SUMMARY | 2024-03-18 22:05 | XMS_ITS | Continuity of Care Document ---
Author Name [facility] Address [address] [place] [address] Organization [facility] Address [address] [place] [address] Care Team Providers Care Record Producer Name Role Phone Barbara Conway Primary Care Physician Barbara Conway Attending Physician [phone] Allergies, Adverse Reactions, Alerts Allergen Type Severity [...] 100 MG ORAL every day at bedti ne PRN For cough 14 Novembe r 2018April [...] UTI Inactive Impacted cerumen of left ear [place] ctive Laceration of finger of left hand Inactive Procedures Procedure Date Status US Kidney (Renal Complete) January 22, 2021 compl eted Relevant Diagnostic Tests and/or Laboratory Data Laboratory Results Test Date/Time Result Interp. Ref. Range Result Co mment Sodium Level August 23, 2021 8:34am 138 [...] Reason for V isit Departed Clinical August 23, 2021 8:29am Lab Hospital Discharge Instructions No known hospital [...] Guaifenesin 400 MG ORAL .q8hr 15 5 sanjuana 2018 Discontinued Benzonatate 100 MG ORAL every day at bedtime PRN For cough 14 March 10, 2019 Discontinued Encounters Encounter Facility Location Admit/Visit Date Discharge/[facility]arture Date [facility], 2021 8:29am August 23, 2021 8:30am Barbara Conway [facility] February 02, 2021 11:28am February 02, 2021 11:29am [facility], [facility] 12[facility] January 22, 2021 12:35pm Evelyn Gannon [facility] December 17, 2020 9:33am December 17, 2020 9:34am Evelyn Gannon [facility] November 16, 2020 11:02am November 16, 2020 11:03am Barbara Conway Functional Status No known functional status. Immunizations Immunization Name Date Given Type Tdap April 28, 2020 Administered Plan of Care No Known Plan of Care Information Social History No known social history. Vital Signs No known vital signs results.
--- OUTSIDE RECORDS SUMMARY | 2024-03-18 22:05 | XMS_ITS | Continuity of Care Document ---
Author Name [facility] Address [address] [place] [id number] Organization [facility] Address [address] [place] [address] Care Team Providers Care Multiple Spindle Router Operator Name Role Phone Barbara Conway Primary Care [...] bedti me PRN For cough 14 Novembe 2018April 28, 2020 Disconti nued Problem List [...] August 30, 2021 12:09pm 6.0 Urine Specific [place] August 30, 2021 12:09pm 1.010 Urine Protein [...] Guaifenesin 400 MG ORAL .q8hr 15 5 [facility] 2018 Discontinued Benzonatate 100 MG ORAL every day at bedtime PRN For cough 14 March 10, 2019 Discontinued Encounters Encounter Facility Location Admit/Visit Date Discharge/Departure Date Attending Provider [facility] August 30, 2021 11:52am August 30, 2021 11:53am Barbara Conway [facility] August 23, 2021 8:29am August 23, 2021 8:30am Barbara Conway [facility] February 02, 2021 11:28am February 02, 2021 11:29am Barbara Conway [facility] January 22, 2021 12:34pm January 22, 2021 12:35pm vEelyn Gannon [facility] December 17, 2020 9:33am December 17, 2020 9:34am Evelyn Gannon [facility] November 16, 2020 11:02am November 16, 2020 11:03am Barbara Conway Functional Status No known functional status. Immunizations Immunization Name Date Given Type Tdap April 28, 2020 Administered Plan of Care No Known Plan of Care Information Social History No known social history. Vital Signs No known vital signs results.
--- OUTSIDE RECORDS SUMMARY | 2024-03-18 22:05 | XMS_ITS | Continuity of Care Document ---
Author Name [facility] Address [address] [place] [id number] Organization [facility] Address [address] [place] [address] Care Team Providers Care Postal Inspector Name Role Phone Barbara Conway Primary Care Physician [phone] Barbara Conway Attending Physician Allergies, Adverse Reactions, [...] UTI Inactive Impacted cerumen of left ear [place] ctive Laceration of finger of left hand [...] Date Chief Complaint Reason for V isit Registered Clinical August 30, 2021 11:52am Lab Hospital [...] every day at bedtime PRN For cough March 10, 2019 Discontinued Encounters Encounter Facility Location Admit/Visit Date Discharge/Departure Date Attending Provider Registered Clinical [facility] August 30, 2021 11:52am Barbara Conway Departed [facility] August 23, 2021 8:29am August 23, 2021 8:30am [facility], 2021 11:28am February 02, 2021 11:29am [facility], [facility] 12:34pm January 22, 2021 12:35pm [facility] December 17, 2020 9:33am December 17, 2020 9:34am [facility] November 16, 2020 11:02am November 16, 2020 11:03am Barbara Conway Functional Status No known functional status. Immunizations Immunization Name Date Given Type Tdap April 28, 2020 Administered Plan of Care No Known Plan of Care Information Social History No known social history. Vital Signs No known vital signs results.
--- OUTSIDE RECORDS SUMMARY | 2024-03-18 22:06 | XMS_ITS | Continuity of Care Document ---
Author Name [facility] Address [address] [place] [address] Organization [facility] Address [address] [place] [address] Care Team Providers Care Continuity Editor Name Role Phone Barbara Conway Primary Care Physician Evelyn Gannon Attending Physician [phone] Allergies, Adverse Reactions, Alerts Allergen Type Severity [...] US Kidney (Renal Complete) January 22, 2021 activ e Relevant Diagnostic Tests and/or Laboratory Data Laboratory [...] Admit/Visit Date Discharge/Departure Date Attending Provider Departed [facility] January 22, 2021 12:34pm January 22, 2021 12:35pm [facility] 17, 2020 9:33am December 17, 2020 9:34am [facility] November 16, 2020 11:02am November 16, 2020 11:03am Barbara Conway Departed Physician/Pr ovider Office Visit [facility] April 28, 2020 12:00pm April 28, 2020 1:00pm Frances Millard Departed Emergency [facility] April 28, 2020 10:07am April 28, 2020 11:05am Departed [facility] Laboratory March 18, 2020 10:00am [...] 10:15am Blood Pressure Diastolic 84 50-85 Hermann clif 2020 10:15am Body Mass Index 31.6 April 28 10:15am
--- OUTSIDE RECORDS SUMMARY | 2024-03-18 22:06 | XMS_ITS | Continuity of Care Document ---
Author Organization [facility] Address [address] [place] [address] Phone Care Team Providers Care Basketball Scout Name Role Phone Out of Town, Provider Primary Care Provider Unav ailable Russel Otto Attending Provider Barbara Conway Primary Care Provider Barbara Conway Attending Provider Frances Millard Attending Provider Allergies, Adverse Reactions, Alerts Allergen Type Severity Reaction Last Updated Verified Status simvastatin Adverse Reaction Moderate April 28, 2020 10:14am Yes Active Sulfa (Sulfonamide Antibiotics) Adverse Reaction Unknown April 28, 2020 10:14am Yes Active Medications Medication Status Dose Units Route Directions Qty Days St art Date End Date Instructions Atorvastatin Active 40 MG PO BEDTIME Jun 10:09am Metformin Disconti nued 500 MG PO EVERY MORNING June 23, 2016 10:09am September 02, 2016 12:40p m Omeprazole Active 40 MG PO EVERY MORNING June 23, 2016 10:09am Aspirin Disconti nued 81 MG PO BEDTIME June 23, 2016 10:09am September 02, 2016 12:40p m Calcium Carbonate (Calcium 500) 500 mg calcium (1,250 mg) Tablet Active 500 MG PO TWICE A DAY June 23, 2016 10:09am Metformin Active 1000 MG PO TWICE A DAY [facility] 2016 10:09am Ibuprofen (Motrin Ib) 200 mg Tablet Active 600 MG PO THREE TIMES A DAY June 23, 2016 10:09am Lisinopril Disconti nued 40 MG PO EVERY MORNING June 23, 2016 10:09am November 01, 2017 6:00am Multivitamin Disconti nued 1 TAB-CA P PO EVERY MORNING June 23, 2016 10:09am Novemb er 2018 11:11a m Atenolol Disconti nued 50 MG PO EVERY MORNING June 23, 2016 10:09am Novemb er 2018 11:12a m Magnesium Disconti nued 400 MG PO EVERY EVENING June 23, 2016 10:09am Novemb er 2018 11:11a m Nitrofurantoi n Monohyd/M-Cry st (Macrobid) 100 mg Capsule Disconti nued 1 CAP PO Q12H June 23, 2016 10:09am November 01, 2017 5:59am Cephalexin Disconti nued 500 MG PO TWICE A DAY October 03, 2017 10:40am November 01, 2017 5:59am Metoprolol Succinate Active November 01, 2017 5:58am Lisinopril Active TABLET [facility] 2018 11:12am Prednisone Disconti nued 10 MG [facility] 12:08a m Fluticasone Propionate Active 1 SPR NA Q12H 9.9 Novem[facility] r 2018 11:49am administer into each nostril Guaifenesin Disconti nued 400 MG PO .q8hr 15 [facility] 11:49am N[facility] 2018 12:08a m Benzonatate Disconti nued 100 MG PO every day at bedtime be r 2018 11:51am Januar y 2020 10:15a m Problems Active Problems Medical Problem Onset Date Status Combined forms of age-related cataract April 262016 Active 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 Type 2 diabetes mellitus May 24, 2016 Acti ve Trochanteric bursitis February 27, 2018 Active 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 May 10, 2018 Active Thoracic and lumbosacral neuritis May 10, 2018 Active History of cataract extraction July 07, 2016 Active 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 27, 2018 A ctive Inactive/Resolved Problems Medical Problem Onset Date Status Acute hip pain Resolved Acute Eustachian salpingitis, bilateral Resolved Acute maxillary sinusitis Resolv ed Post concussion syndrome Resolve d Acute UTI Resolved Impacted cerumen of left ear Res olved Laceration of finger of left hand Resolved Relevant Diagnostic Tests and/or Laboratory Data Laboratory Results Test Date/Time Result Interpretation Reference Range Result Comment Performing Site Hemoglobin A1c Percent March 18, 2020 10:20am 6.09 % <5.7 <5.7%: Normal5.7%-6.4%: Prediabetes>=6.5 %: Diagnostic for diabetesGoals for Glycemic Control in Diabetes (ADA 2018)<7.0%: A1c target for non adults with diabetes. More or less stringent glycemic goals may be appropriate for individual patients.<7.5%: A1c target for children and adolescents with type I diabetes. A lower goal is reasonable if it can be achieved without excessive hypoglycemia. MAIN LAB, [address] [address] Estimated Average Glucose mg/dL March 18, 2020 10:20am 128 mg/dL [facility]IN LAB, [address] [address] Coronavirus 2019 PCR Interp October 24, 2019 9:00am Negative Negative Negative results do not preclude 2019-nCoV infection andshould not be used as the sole basis for treatment or otherpatient management decisions. Negative results must becombined with clinical observations, patient history, andepidemiologic al information.This test was developed and its performance characteristicsd etermined by [facility]. It has not been cleared [...] asdefined by the FDAPerformed on the [employer] [address] [employer]. [facility] Reference Lab Test Performing Site October 24, 2019 9:00am Ab [address] [facility] lab Is Patient Admitted or Awaiting Admission?:noCOV ID Source: NPTest performed or referred by[id number] [place] [address] Advance Directives Advance Directive Response Recorded Date/ Time Does patient have an Advanced Directive? Yes June 29, 2016 8:06am Do we have a copy on file here at [facility]? Yes June 29, 2016 8:06am Pt has a Living Will? Yes June 29, 2016 8:06am Do we have a copy on file here at [facility]? Yes June 29, 2016 8:06am Pt has a Power of Clinical Education Coordinator? Yes 2016 8:06am Do we have a copy on file here at [facility]? Yes June 29, 2016 8:06am Chief Complaint and Reason for Visit Chief Complaint COVID19 CURBSIDE JEIMY T Lab Provider Based Billing Encounters Encounter Location(s) Arrival/Admit Date Discharge/Depart Date Provider(s) Departed Clinical [facility] October 24, 2019 7:49am October 24, 2019 7:50am Russel Otto MD Departed Clinical [facility] March 18, 2020 10:00am March 18, 2020 10:01am Barbraa Cnoway OPERATIONS EXPERT Departed Emergency [facility] April 28, 2020 10:07am April 28, 2020 11:05am null Departed Physician/Prov ider Office Visit [facility] April 28, 2020 12:00pm April 28, 2020 1:00pm OPERATIONS EXPERT-Susanna Millard Assessments No Assessments Information Available Family History Relationship Condition Age at Onset Recorded Date/T jose Sibling Diabetes mellitus Unknown Parent Uses contact lenses Unknown Parent Diabetes mellitus Unknown Sibling Diabetes mellitus Unknown Functional Status No Functional Status information available Goals Goals may be documented in an alternate section. Immunizations Immunization Event Date Not Given Reason Dose Number Intelligence Manager Lot Number Vaccine Information Statement (VIS) Detail Tdap April 28, 2020 [id number] Mental Status No Mental Status Information Available Medical Equipment Implanted Devices Device Date Implanted Device Details LENS [id number] 19.5 June 29, 2016 GUSTAVO: LENS [id number] 19.5 September 07, 2016 GUSTAVO: Insurance Providers Guarantor BRYCE H[employer] Address [address] [facility] [address] [facility] [address] Contact Info. Home Phone: Payer Policy Id Coverage Id Subscriber's Name Subscriber Id Effective Date Expiration Date BLUE CROSS OUT OF STATE [id number] [employer] [id number] MEDICARE OUT (DO NOT USE) [id number] BRYCE HILL [id number] 2011 MEDICARE PART A AND B COVERAGE [id number] BRYCE HILL [id number] SELF PAY Self N/A [facility] [id number] BRYCE HILL [id number] [facility] (DO NOT USE) [id number] BRYCE HILL [id number] 2016 Plan of Treatment Future Tests Future scheduled test information is unavailable Pending Tests Pending diagnostic test information is unavailable Future Visits Future appointment information is unavailable Referrals to Other Providers Reason for Referral Referral Start Date Provider Provider Contact Information Provider Address Barbara Conway [facility] Work Phone: [address] [address] Future Procedures Future procedure information is unavailable Future Medications Future medication information is unavailable Patient Instructions Wound Care (DC) COVID 19 General Instructions- decrease the spread of coronavirus ([facility]) Social History Smoking Status Status Date of Observation Never smoked tobacco (finding) April 282020 10:43am Observation Status Observation Response Date of Response Alcohol Use No April 28 10:43am Substance/Street Drug Use No 2020 10:43am Substance Use Treatment No April 28, 2020 10:43am substance use type does not use April 28, 2020 10:43am Smoking Status Never smoker April 28 10:43am Assigned Sex Female Vital Signs Vital Reading Result Reference Range Collection Date/Time Height 65 [in_i] April 28 10:15am Weight 86.18 kg April 28 10:15am Body Temperature 97.9 [degF] 97.6-99.6 April 10:15am Heart Rate 67 /min 60-100 April 28 10:15am Respiratory rate 12 /min 12-24 April 10:15am Oxygen saturation by Pulse oximetry 97 % 95-100 April 28, 2020 10 :15am BP Systolic 120 mm[Hg] 100-140 April 28 10:15am BP Diastolic 84 mm[Hg] 50-85 April 28 10:15am BMI (Body Mass Index) 31.6 kg/m2 Hermannernestinairvin kraft 2020 10:15am
--- OUTSIDE RECORDS SUMMARY | 2024-03-18 22:06 | XMS_ITS | Continuity of Care Document ---
Author Organization [facility] Address [address] [place] [address] Phone Care Team Providers Care M1 Armor Crewman Name Role Phone ZoraidaHenrii Primary Care Provider [phone] Barbara Conway Attending Provider [place] Millard Attending Provider Jagdeep HAYNES, Evelyn Mcmullen Attending Provider Chief Complaint and Reason for Visit Chief Complaint Lab Provider Based Billing Lab Lab Chronic kidney disease, stage 3b Lab Allergies, Adverse Reactions, Alerts Allergen Type Severity Reaction Last Updated Verified Status simvastatin Adverse Reaction Moderate April 28, 2020 11:14am Yes Active Sulfa (Sulfonamide Antibiotics) Adverse Reaction Unknown April 28, 2020 11:14am Yes Active Social History Smoking Status Status Start Date End Date Date of Observa tion Never smoked tobacco (finding) April 28, 2020 10:43am Observation Status Observation Response Date of Response Alcohol Use No April 28 11:43am Substance/Street Drug Use No Januar y 2020 11:43am Substance Use Treatment No April 28, 2020 11:43am substance use type does not use April 28, 2020 11:43am Smoking Status Never smoker April 28 11:43am Additional Data Assigned Sex Female Family History Relationship Condition Age at Onset Recorded Date/T jose Sibling Diabetes mellitus Unknown Parent Uses contact lenses Unknown Parent Diabetes mellitus Unknown Sibling Diabetes mellitus Unknown Problems Active Problems Medical Problem Onset Date [...] Laceration of finger of left hand Resolved Medications Medication Status Dose Units Route Directions Qty Days St art Date End Date Instructions Atorvastatin Active 40 MG PO BEDTIME Jun 11:09am Metformin Disconti nued 500 MG PO EVERY MORNING June 23, 2016 11:09am September 02, 2016 1:40pm Omeprazole Active 40 MG PO EVERY MORNING June 23, 2016 11:09am Aspirin Disconti nued 81 MG PO BEDTIME June 23, 2016 11:09am September 02, 2016 1:40pm Calcium Carbonate (Calcium 500) 500 mg calcium (1,250 mg) Tablet Active 500 MG PO TWICE A DAY June 23, 2016 11:09am Metformin Active 1000 MG PO TWICE A DAY [facility] 2016 11:09am Ibuprofen (Motrin Ib) 200 mg Tablet Active 600 MG PO THREE TIMES A DAY June 23, 2016 11:09am Lisinopril Disconti nued 40 MG PO EVERY MORNING June 23, 2016 11:09am November 01, 2017 7:00am Multivitamin Disconti nued 1 TAB-CA P PO EVERY MORNING June 23, 2016 11:09am Novemb er 2018 12:11p m Atenolol Disconti nued 50 MG PO EVERY MORNING June 23, 2016 11:09am Novemb er 2018 12:12p m Magnesium Disconti nued 400 MG PO EVERY EVENING June 23, 2016 11:09am Novemb er 2018 12:11p m Nitrofurantoi n Monohyd/M-Cry st (Macrobid) 100 mg Capsule Disconti nued 1 CAP PO Q12H June 23, 2016 11:09am November 01, 2017 6:59am Cephalexin Disconti nued 500 MG PO TWICE A DAY 14 October 03, 2017 11:40am November 01, 2017 6:59am Metoprolol Succinate Active November 01, 2017 6:58am Lisinopril Active TABLET e r 2018 12:12pm Prednisone Disconti nued 10 MG PO DAILY 5 5 r 2018 12:48pm [facility] er 2018 1:08am Fluticasone Propionate Active 1 SPR NA Q12H 9.9 be r 2018 12:49pm administer into each nostril Guaifenesin Disconti nued 400 MG PO .q8hr 15 5 r 2018 12:49pm [facility] er 2018 1:08am Benzonatate Disconti nued 100 MG PO every day at bedtime 14 r 2018 12:51pm Januar y 2020 11:15a m Immunizations Immunization Event Date Not Given Reason Dose Number Public Policy Mediator Lot Number Vaccine Information Statement (VIS) Detail Tdap April 28, 2020 [id number] Medical Equipment Device Date Implanted Device Details LENS [id number] 19.5 June 29, 2016 LENS [id number] 19.5 September 07, 2016 Procedures Procedure Date Performed Status US Kidney (Renal Complete) January 22, 2021 1:0 0pm completed Relevant Diagnostic Tests and/or Laboratory Data Laboratory Results Test Date/Time Result Interpretation Reference Range Result Comment Performing Site Sodium Level November 16, 2020 11:17am 137 mmol/L 137-145 MAIN LAB [address] [place] [address] Sodium Level December 17, 2020 9:39am 139 mmol/L 137-145 MAIN LAB [address] [address] Sodium Level February 02, 2021 11:57am 138 mmol/L 137-145 MA[facility] [address] [address] Potassium Level November 16, 2020 11:17am 4.6 mmol/L 3.6-5.0 MAIN LAB [address] [place] [address] Potassium Level December 17, 2020 9:39am 4.7 mmol/L 3.6-5.0 MAIN LAB [address] [address] Potassium Level February 02, 2021 11:57am 4.1 mmol/L 3.6-5.0 MAIN LAB [address] [address] Chloride Level November 16, 2020 11:17am 103 mmol/L 98-107 MAIN LAB [address] [place] [address] Chloride Level December 17, 2020 9:39am 104 mmol/L 98-107 MAIN LAB [address] [address] Chloride Level February 02, 2021 11:57am 99 mmol/L 98-107 MA[facility] [address] [address] Carbon Dioxide Level November 16, 2020 11:17am 25 mmol/L 22-30 MAIN LAB [address] [place] [address] Carbon Dioxide Level December 17, 2020 9:39am 26 mmol/L 22-30 MAIN LAB [address] [address] Carbon Dioxide Level February 02, 2021 11:57am 30 mmol/L 22-30 MAIN LAB [address] [address] Anion Gap November 16, 2020 11:17am 9 7-16 MAIN LAB [address] [place] [address] Anion Gap December 17, 2020 9:39am 9 7-16 MAIN LAB [address] [address] Blood Urea Nitrogen November 16, 2020 11:17am 22 mg/dL 7-17 MAIN LAB [address] [place] [address] Blood Urea Nitrogen December 17, 2020 9:39am 15 mg/dL 7-17 MAIN LAB [address] [address] Blood Urea Nitrogen February 02, 2021 11:57am 18 mg/dL 7-17 MAIN LAB [address] [address] Creatinine November 16, 2020 11:17am 1.30 mg/dL 0.52-1.04 MAIN LAB [address] [place] [address] Creatinine December 17, 2020 9:39am 1.03 mg/dL 0.52-1.04 MAIN LAB [address] [address] Creatinine February 02, 2021 11:57am 1.02 mg/dL 0.52-1.04 MAIN LAB [address] [address] Glomerular Filtration Rate Calc November 16, 2020 11:17am 40 mL/min >60.0 MAIN LAB [address] [place] [address] Glomerular Filtration Rate Calc December 17, 2020 9:39am 52 mL/min >60.0 MAIN LAB [address] [address] Glomerular Filtration Rate Calc February 02, 2021 11:57am 53 mL/min >60.0 MAIN LAB [address] [address] Glucose Level November 16, 2020 11:17am 113 mg/dL 70-100 MA[facility] LAB [address] [place] [address] Glucose Level December 17, 2020 9:39am 93 mg/dL 70-100 MA[address] LAB [address] [address] Glucose Level February 02, 2021 11:57am 115 mg/dL 70-100 MA[address] [address] Calcium Level November 16, 2020 11:17am 9.6 mg/dL 8.4-10.2 MA[address] LAB [address] [place] [address] Calcium Level December 17, 2020 9:39am 10.0 mg/dL 8.4-10.2 MAIN LAB [address] [address] Calcium Level February 02, 2021 11:57am 9.5 mg/dL 8.4-10.2 MA[address] [address] Calcium Adjusted for Albumin February 02, 2021 11:57am 9.7 mg/dL 8.4-10.2 MAIN LAB [address] [address] Phosphorus Level February 02, 2021 11:57am 4.3 mg/dL 2.5-4.5 MAIN LAB [address] [address] Albumin February 02, 2021 11:57am 4.1 g/dL 3.5-5.0 MAIN LAB [facility] [address] [facility] [place] [address] Hemoglobin A1c Percent March 18, 2020 11:20am 6.09 % <5.7 <5.7%: Normal5.7%-6.4% : Prediabetes>=6. 5%: Diagnostic for diabetesGoals for Glycemic Control in Diabetes (ADA 2018)<7.0%: A1c target for non adults with diabetes. More or less stringent glycemic goals may be appropriate for individual patients.<7.5%: A1c target for children and adolescents with type I diabetes. A lower goal is reasonable if it can be achieved without excessive hypoglycemia. MAIN LAB [address] [facility] [place] [address] Estimated Average Glucose mg/dL March 18, 2020 11:20am 128 mg/dL MAIN LAB [address] [facility] [place] [address] Diagnostic Imaging Reports Report Dictated Date/Time Dictated By Status Radiology Report January 25, 2021 11:47am Maria T Enrqiue MD completed [facility] ULTRASOUND REPORT PATIENT NAME: BRYCE HILL 6 DATE OF : 1945 ATTENDING/ER PHYSICIAN: Evelyn Gannon NP ER/ATTENDING PHYSICIAN: PRIMARY CARE PHYS: FOSTER Lopez ADMITTING PHYSICIAN: CONSULTING PHYSICIAN: PROCEDURE DATE: 01/22/21 REPORT STATUS: Signed DICTATING PHYSICIAN: Maria T Enrique MD REASON FOR EXAM: Chronic kidney disease, stage 3b PROCEDURE INFORMATION: Exam: US Retroperitoneal; Complete; Kidneys and Bladder Exam date and time: 01/22/2021 12:51 PM Age: 75 years old Clinical indication: Condition or disease; Kidney or ureter condition; Chronic kidney disease or failure; Ckd stage 3 (moderate); Additional info: Chronic kidney disease, stage 3b TECHNIQUE: Imaging protocol: Real-time ultrasound of the retroperitoneum with image documentation. Complete exam focused on the kidneys and bladder. COMPARISON: MRI Lumbar Spine w/o Contrast 04/09/2018 12:44 PM FINDINGS: Right kidney: The right kidney measures 9.1 x 3.9 x 3.7 cm. There is mild pelviectasis. A 1.6 x 1.4 x 3.0 cm cyst is noted in the mid right kidney. Left kidney: The left kidney measures 10.3 x 4.8x4.3 cm. Urinary bladder: The bladder measures 2.8 x 4.4x6.1 cm prevoid. No post void residual is noted. Neither ureteral jet was visualized. IMPRESSION: Mild right pelviectasis. A 3 cm simple cyst is noted in the mid right kidney. Electronically Signed By : Maria T Enrique MD dd: 01/25/21 1147 01/25/21 1147 Vital Signs Vital Reading Result Reference Range Collection Date/Time Height 65 [in_i] April 28 11:15am Weight 86.18 kg April 28 11:15am Body Temperature 97.9 [degF] 97.6-99.6 April 11:15am Heart Rate 67 /min 60-100 April 28 11:15am Respiratory rate 12 /min 12-24 April 11:15am Oxygen saturation by Pulse oximetry 97 % 95-100 April 28, 2020 11 :15am BP Systolic 120 mm[Hg] 100-140 April 28 11:15am BP Diastolic 84 mm[Hg] 50-85 April 28 11:15am BMI (Body Mass Index) 31.6 kg/m2 Apruar 2020 11:15am Advance Directives Advance Directive Response Recorded Date/ Time Does patient have an Advanced Directive? Yes June 29, 2016 9:06am Do we have a copy on file here at [facility]? Yes June 29, 2016 9:06am Pt has a Living Will? Yes June 29, 2016 9:06am Do we have a copy on file here at [facility]? Yes June 29, 2016 9:06am Pt has a Power of Rotor Winder? Yes Alonso mcmahan 2016 9:06am Do we have a copy on file here at [facility]? Yes June 29, 2016 9:06am Insurance Providers Guarantor BRYCE HILL Address [address] [facility] [address] [facility] [address] Contact Info. Home Phone: Payer Policy Id Coverage Id Subscriber's Name Subscriber Id Effective Date Expiration Date BLUE CROSS OUT OF [facility] [id number] BRYCE HILL [id number] MEDICARE OUT (DO NOT USE) [id number] BRYCE HILL [id number] 2011 MEDICARE PART A AND B COVERAGE [id number] BRYCE HILL [id number] SELF PAY Self N/A [facility] [id number] BRYCE HILL [id number] [facility] (DO NOT USE) [id number] BRYCE HILL [id number] 2016 Encounters Encounter Location(s) Arrival/Admit Date Discharge/Depart Date Provider(s) Departed Clinical [facility] March 18, 2020 11:00am March 18, 2020 11:01am FOSTER Conway Departed Emergency [facility] April 28, 2020 11:07am April 28, 2020 12:05pm null Departed Physician/Prov ider Office Visit [facility] April 28, 2020 1:00pm April 28, 2020 2:00pm PIPER Millard Departed [facility] November 16, 2020 11:02am November 16, 2020 11:03am [facility] 17, 2020 9:33am December 17, 2020 9:34am Evelyn Gannon NP Departed [facility] January 22, 2021 12:34pm January 22, 2021 12:35pm Evelyn Gannon NP Departed [facility] February 02, 2021 11:28am February 02, 2021 11:29am FOSTER Conway Plan of Treatment Future Tests Future scheduled test information is unavailable Pending Tests Pending diagnostic test information is unavailable Future Visits Future appointment information is unavailable Referrals to Other Providers Reason for Referral Referral Start Date Provider Provider Contact Information Provider Address FOSTER Conway Work Phone: [address] [address] Future Procedures Future procedure information is unavailable Future Medications Future medication information is unavailable Patient Instructions Wound Care (DC) COVID 19 General Instructions- decrease the spread of coronavirus ([facility])
--- OUTSIDE RECORDS SUMMARY | 2024-03-18 22:06 | XMS_ITS | Continuity of Care Document ---
Author Name Address [address] [place] [address] Organization Address [address] [place] [address] Care Team Providers Care Head Pastry Chef Name Role Phone Barbara Conway Primary Care [...] UTI Inactive Impacted cerumen of left ear [place] ctive Laceration of finger of left hand [...] Date Discharge/Departure Date Attending Provider Registered Clinical Laboratory August 30, 2021 11:52am Barbara Conway Departed [facility] Laboratory August 23, 2021 8:29am August 23, 2021 8:30am [facility] 02, 2021 11:28am February 02, 2021 11:29am [facility] 12:34pm [...]
--- OUTSIDE RECORDS SUMMARY | 2024-03-18 22:06 | XMS_ITS | Continuity of Care Document ---
Author Name [facility] Address [address] [place] [address] Organization [facility] Address [address] [place] [address] Care Team Providers Care Marketing Clerk Name Role Phone Barbara Conway Primary Care [...] August 30, 2021 12:09pm 6.0 Urine Specific [place] August 30, 2021 12:09pm 1.010 Urine Protein [...] 400 MG ORAL .q8hr 15 5 [facility] 2018 Discontinued Benzonatate 100 MG ORAL every day at bedtime PRN For cough 14 March 10, 2019 Discontinued Encounters Encounter Facility Location Admit/Visit Date Discharge/Departure Date Attending Provider [facility] August 30, 2021 11:52am August 30, 2021 11:53am Barbara Conway [facility] August 23, 2021 8:29am August 23, 2021 8:30am Barbara Conway [facility] February 02, 2021 11:28am February 02, 2021 11:29am Barbara Conway [facility] January 22, 2021 12:34pm January 22, 2021 12:35pm Evelyn Gannon [facility] December 17, 2020 9:33am December 17, 2020 9:34am Evelyn Gannon [facility] November 16, 2020 11:02am November 16, 2020 11:03am Barbara Conway Functional Status No known functional status. Immunizations Immunization Name Date Given Type Tdap April 28, 2020 Administered Plan of Care No Known Plan of Care Information Social History No known social history. Vital Signs No known vital signs results.
--- OUTSIDE RECORDS SUMMARY | 2024-03-18 22:06 | XMS_ITS | Continuity of Care Document ---
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 Name Role Phone Out of Town, Provider Primary Care Provider Unav milenaable Russel Otto Attending Provider Barbara Conway Primary Care Provider [phone] Barbara Conway Attending Provider Allergies, Adverse Reactions, Alerts Allergen Type Severity Reaction Last Updated Verified Status simvastatin Adverse Reaction Moderate Novembe r 2018 11:11am Yes Active Sulfa (Sulfonamide Antibiotics) Adverse Reaction Unknown March 10, 2019 11:11am Yes Active Medications Medication Status Dose Units [...] Active 1000 MG PO TWICE A DAY [facility] 2016 10:09am Ibuprofen (Motrin Ib) 200 mg [...] TWICE A DAY 14 October 03, 2017 10:40am November 01, 2017 5:59am Metoprolol Succinate Active November 01, 2017 5:58am Lisinopril Active TABLET Novem e r 2018 11:12am Prednisone Disconti nued 10 MG PO DAILY 5 5 [facility] Fluticasone Propionate Active 1 SPR NA Q12H 9.9 [facility] r 2018 11:49am administer into each nostril Guaifenesin Disconti nued 400 MG PO .q8hr 15 5 [facility] r 2018 [facility] Benzonatate Active 100 MG PO every da y at bedtime 14 r 2018 11:51am Problems Active Problems Medical [...] Impacted cerumen of left ear Res olved Relevant Diagnostic Tests and/or Laboratory Data Laboratory [...] achieved without excessive hypoglycemia. MAIN LAB, [address] [facility] [address] Estimated Average Glucose mg/dL March 18, 2020 10:20am 128 mg/dL MAIN LAB, [address] [facility] [address] Coronavirus 2019 PCR Interp October 24, 2019 9:00am Negative Negative Negative results do not preclude 2019-nCoV infection andshould not be used as the sole basis for treatment or otherpatient management decisions. Negative results must becombined with clinical observations, patient history, andepidemiologic al information.This test was developed and its performance characteristicsd etermined by [facility]. It has not been cleared [...] asdefined by the FDAPerformed on the [employer] [address] [facility] Reference Lab Test Performing Site October 24, 2019 9:00am [facility] lab Is Patient Admitted or Awaiting Admission?:noCOV ID Source: NPTest performed or referred byThe [address] Advance Directives Advance Directive Response Recorded Date/ Time Does patient have an Advanced Directive? Yes June 29, 2016 8:06am Do we have a copy on file here at [facility]? Yes June 29, 2016 8:06am Pt has a Living Will? Yes June 29, 2016 8:06am Do we have a copy on file here at [facility]? Yes June 29, 2016 8:06am Pt has a Power of Fern Picker? Yes Alonso 2016 8:06am Do we have a copy on file here at [facility]? 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 Home Phone: Payer Policy Id Coverage Id Subscriber's Name Subscriber Id Effective Date Expiration Date BLUE CROSS OUT OF STATE [id number] BRYCE Anibal LIZ [id number] MEDICARE OUT (DO NOT USE) [id number] BRYCE Anibal LIZ [id number] 2011 MEDICARE PART A AND B COVERAGE [id number] BRYCE HILL [id number] SELF PAY Self N/A [facility] CARE [id number] BRYCE Anibal LIZ [id number] [facility] (DO NOT USE) [id number] BRYCE HILL [id number] 2016 Social History Smoking Status Status Date of Observation Never smoked tobacco (finding) March 10, 2019 11:34am Observation Status Observation Response Date of Response Alcohol Use No March 10 11:34am Substance/Street Drug Use No Novemb er 2018 11:34am Substance Use Treatment No March 10, 2019 11:34am substance use type does not use February 11:34am Smoking Status Never smoker March 10 11:34am Assigned Sex Female
--- OUTSIDE RECORDS SUMMARY | 2024-03-18 22:07 | XMS_ITS | Continuity of Care Document ---
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 Name Role Phone Barbara Conway Primary Care Provider Barbara Conway Attending Provider Frances Millard Attending Provider DALLAS Gannon Attending Provider Chief Complaint and Reason for Visit Chief Complaint Lab Provider Based Billing Lab Lab Allergies, Adverse Reactions, Alerts Allergen Type [...] Active 1000 MG PO TWICE A DAY [facility] 2016 11:09am Ibuprofen (Motrin Ib) 200 mg [...] PO DAILY 5 5 r 2018 12:48pm [facility] er 2018 1:08am Fluticasone Propionate Active 1 SPR NA Q12H 9.9 be r 2018 12:49pm administer into each nostril Guaifenesin Disconti nued 400 MG PO .q8hr 15 5 be r 2018 12:49pm [facility] er 2018 1:08am Benzonatate Disconti nued 100 MG PO every day at bedtime 14 2018 12:51pm Apruar y 2020 11:15a m Immunizations Immunization Event Date Not Given Reason Dose Number [employer] 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 Lot Number Vaccine Information Statement (VIS) Detail Tdap April 28, 2020 [id number] Medical Equipment Device Date Implanted Device Details LENS [id number] 19.5 June 29, 2016 LENS SN60WF 19.5 September 07, 2016 Relevant Diagnostic Tests and/or Laboratory Data Laboratory Results Test Date/Time Result Interpretation Reference Range Result Comment Performing Site Sodium Level November 16, 2020 11:17am 137 mmol/L 137-145 [facility] [address] [place] [address] Sodium Level December 17, 2020 9:39am 139 mmol/L 137-145 MA[facility] [address] [address] Potassium Level November 16, 2020 11:17am 4.6 mmol/L 3.6-5.0 [facility] [address] [place] [address] Potassium Level December 17, 2020 9:39am 4.7 mmol/L 3.6-5.0 [facility] [address] [address] Chloride Level November 16, 2020 11:17am 103 mmol/L 98-107 [facility] [address] [place] [address] Chloride Level December 17, 2020 9:39am 104 mmol/L 98-107 [facility] [address] [address] Carbon Dioxide Level November 16, 2020 11:17am 25 mmol/L 22-30 [facility] [address] [place] [address] Carbon Dioxide Level December 17, 2020 9:39am 26 mmol/L 22-30 [facility] [address] [address] Anion Gap November 16, 2020 11:17am 9 7-16 [facility] [address] [place] [address] Anion Gap December 17, 2020 9:39am 9 7-16 [facility] [address] [address] Blood Urea Nitrogen November 16, 2020 11:17am 22 mg/dL 7-17 [facility] [address] [place] [address] Blood Urea Nitrogen December 17, 2020 9:39am 15 mg/dL 7-17 MA[facility] [address] [address] Creatinine November 16, 2020 11:17am 1.30 mg/dL 0.52-1.04 [facility] [address] [place] [address] Creatinine December 17, 2020 9:39am 1.03 mg/dL 0.52-1.04 MA[facility] [address] [address] Glomerular Filtration Rate Calc November 16, 2020 11:17am 40 mL/min >60.0 [facility] [address] [place] [address] Glomerular Filtration Rate Calc December 17, 2020 9:39am 52 mL/min >60.0 MA[facility] [address] [address] Glucose Level November 16, 2020 11:17am 113 mg/dL 70-100 [facility] [address] [place] [address] Glucose Level December 17, 2020 9:39am 93 mg/dL 70-100 MA[facility] [address] [address] Calcium Level November 16, 2020 11:17am 9.6 mg/dL 8.4-10.2 MAIN LAB [address] [place] [address] Calcium Level December 17, 2020 9:39am 10.0 mg/dL 8.4-10.2 MAIN LAB [facility] [address] [facility] [address] Hemoglobin A1c Percent March 18, 2020 11:20am [...] achieved without excessive hypoglycemia. MAIN LAB [address] [facility] [address] Estimated Average Glucose mg/dL March 18, 2020 11:20am 128 mg/dL MAIN LAB [address] [facility] [address] Vital Signs Vital Reading Result Reference Range [...] 10:15am BMI (Body Mass Index) 31.6 kg/m2 Janernestinar y 2020 10:15am Advance Directives Advance Directive Response Recorded Date/ Time Does patient have an Advanced Directive? Yes June 29, 2016 9:06am Do we have a copy on file here at [facility] [place]? Yes June 29, 2016 9:06am Pt has a Living Will? Yes June 29, 2016 9:06am Do we have a copy on file here at [facility] [place]? Yes June 29, 2016 9:06am Pt has a Power of Excellence Consultant? Yes 2016 9:06am Do we have a copy on file here at [facility] [place]? Yes June 29, 2016 9:06am Insurance Providers Guarantor BRYCE HILL Address [address] [facility] [address] Contact Info. Home Phone: Payer Policy Id Coverage Id Subscriber's Name Subscriber Id Effective Date Expiration Date BLUE CROSS OUT OF STATE [id number] BRYCE HILL [id number] MEDICARE OUT (DO NOT USE) [id number] BRYCE HILL [id number] 2011 MEDICARE PART A AND B COVERAGE [id number] BRYCE HILL [id number] SELF PAY Self N/A [facility] [id number] BRYCE HILL [id number] [facility] (DO NOT USE) [id number] BRYCE HILL [id number] 2016 Encounters Encounter Location(s) Arrival/Admit Date Discharge/Depart Date Provider(s) Departed Clinical [facility] March 18, 2020 11:00am March 18, 2020 11:01am Barbara HUTCHISON Departed Emergency [facility] April 28, 2020 11:07am April 28, 2020 12:05pm null Departed Physician/Prov ider Office Visit [facility] April 28, 2020 1:00pm April 28, 2020 2:00pm PIPER Millard Departed Clinical [facility] November 16, 2020 11:02am November 16, 2020 11:03am Barbara HUTCHISON Departed Clinical [facility] December 17, 2020 9:33am December 17, 2020 9:34am Benedict Rivas NP Plan of Treatment Future Tests Future scheduled test information is unavailable Pending Tests Pending diagnostic test information is unavailable Future Visits Future appointment information is unavailable Referrals to Other Providers Reason for Referral Referral Start Date Provider Provider Contact Information Provider Address Barbara HUTCHISON Work Phone: [address] [address] Future Procedures Future procedure information is unavailable Future Medications Future medication information is unavailable Patient Instructions Wound Care (DC) COVID 19 General Instructions- decrease the spread of coronavirus ([facility])
--- OUTSIDE RECORDS SUMMARY | 2024-03-18 22:07 | XMS_ITS | Continuity of Care Document ---
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 Vaccine Information Statement (VIS) Detail Tdap April 28, 2020 [id number] Medical Equipment Device Date Implanted Device Details LENS [id number] 19.5 June 29, 2016 LENS SN60WF 19.5 September 07, 2016 Procedures Procedure Date Performed Status US Kidney (Renal Complete) January 22, 2021 1:0 0pm active Relevant Diagnostic Tests and/or Laboratory Data Laboratory Results Test Date/Time Result Interpretation Reference Range Result Comment Performing Site Sodium Level November 16, 2020 11:17am 137 mmol/L 137-145 MAIN LAB [address] [place] [address] Sodium Level December 17, 2020 9:39am 139 mmol/L 137-145 MAIN LAB [address] [address] Potassium Level November 16, 2020 11:17am 4.6 mmol/L 3.6-5.0 MAIN LAB [address] [place] [address] Potassium Level December 17, 2020 9:39am 4.7 mmol/L 3.6-5.0 MAIN LAB [address] [address] Chloride Level November 16, 2020 11:17am 103 mmol/L 98-107 MAIN LAB [address] [place] [address] Chloride Level December 17, 2020 9:39am 104 mmol/L 98-107 MAIN LAB [address] [address] Carbon Dioxide Level November 16, 2020 11:17am 25 mmol/L 22-30 MAIN LAB [address] [place] [address] Carbon Dioxide Level December 17, 2020 9:39am 26 mmol/L 22-30 MAIN LAB [address] [address] Anion Gap November 16, 2020 11:17am 9 7-16 MAIN LAB [address] [place] [address] Anion Gap December 17, 2020 9:39am 9 7-16 MAIN LAB [address] [address] Blood Urea Nitrogen November 16, 2020 11:17am 22 mg/dL 7-17 MAIN LAB [address] [place] [address] Blood Urea Nitrogen December 17, 2020 9:39am 15 mg/dL 7-17 MAIN LAB [address] [address] Creatinine November 16, 2020 11:17am 1.30 mg/dL 0.52-1.04 MAIN LAB [address] [place] [address] Creatinine December 17, 2020 9:39am 1.03 mg/dL 0.52-1.04 MAIN LAB [address] [address] Glomerular Filtration Rate Calc November 16, 2020 11:17am 40 mL/min >60.0 MAIN LAB [address] [place] [address] Glomerular Filtration Rate Calc December 17, 2020 9:39am 52 mL/min >60.0 MAIN LAB [address] [address] Glucose Level November 16, 2020 11:17am 113 mg/dL 70-100 MAIN LAB [address] [place] [address] Glucose Level December 17, 2020 9:39am 93 mg/dL 70-100 MAIN LAB [address] [address] Calcium Level November 16, 2020 11:17am 9.6 mg/dL 8.4-10.2 MAIN LAB [address] [facility] [address] Calcium Level December 17, 2020 9:39am 10.0 mg/dL 8.4-10.2 MAIN LAB [facility] [address] [facility] [address] Hemoglobin A1c Percent March 18, 2020 11:20am [...] achieved without excessive hypoglycemia. MAIN LAB [address] [facility] [address] Estimated Average Glucose mg/dL March 18, 2020 11:20am 128 mg/dL MAIN LAB [address] [facility] [address] Vital Signs Vital Reading Result Reference Range [...] BMI (Body Mass Index) 31.6 kg/m2 Apruar y 2020 11:15am Advance Directives Advance Directive Response Recorded Date/ Time Does patient have an Advanced Directive? Yes June 29, 2016 9:06am Do we have a copy on file here at [facility]? Yes June 29, 2016 9:06am Pt has a Living Will? Yes June 29, 2016 9:06am Do we have a copy on file here at [facility]? Yes June 29, 2016 9:06am Pt has a Power of Water Tester? Yes Alonso mcmahan 2016 9:06am Do we have a copy on file here at [facility]? Yes June 29, 2016 9:06am Insurance Providers Guarantor BRYCE Barnett LIZ Address [address] [facility] [address] [facility] [address] Contact Info. Home Phone: Payer Policy Id Coverage Id Subscriber's Name Subscriber Id Effective Date Expiration Date BLUE CROSS OUT OF STATE [id number] BRYCE HILL [id number] MEDICARE OUT (DO NOT USE) [id number] BRYCE Anibal LIZ [id number] 2011 MEDICARE PART A AND B COVERAGE [id number] BRYCE Anibal LIZ [id number] SELF PAY Self N/A [facility] [id number] BRYCE Anibal LIZ [id number] [facility] (DO NOT USE) [id number] BRYCE Barnett LIZ [id number] 2016 Encounters Encounter Location(s) Arrival/Admit Date Discharge/Depart Date Provider(s) Departed Clinical [facility] March 18, 2020 11:00am March 18, 2020 11:01am FOSTER Conway Departed Emergency [facility] April 28, 2020 11:07am April 28, 2020 12:05pm null Departed Physician[facility] April 28, 2020 1:00pm April 28, 2020 2:00pm PIPER Millard Departed Clinical [facility] November 16, 2020 11:02am November 16, 2020 11:03am FOSTER Conway Departed Clinical [facility] December 17, 2020 9:33am December 17, 2020 9:34am Evelyn Gannon NP Departed Clinical [facility] January 22, 2021 12:34pm January 22, 2021 12:35pm Evelyn Gannon NP Plan of Treatment Future Tests Future scheduled test information is unavailable Pending Tests Pending diagnostic test information is unavailable Future Visits Future appointment information is unavailable Referrals to Other Providers Reason for Referral Referral Start Date Provider Provider Contact Information 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
--- OUTSIDE RECORDS SUMMARY | 2024-03-18 22:07 | XMS_ITS | Continuity of Care Document ---
Author Organization [facility] Address [address] [place] [address] Phone Care Team Providers Care Insurance Instructor Name Role Phone Bright Partida Attending Provider Iraida Crews Primary Care Provider PCP, of Choice Admit Provider Unavailable PCP, of Choice Attending Provider Unavailable Barbara Conway Admit Provider Unavailable Barbara Conway Attending Provider Unavailable Barbara Conway Primary Care Provider UnavailRussel Gagnon Attending Provider [phone] Duglas Nevarez Attending Provider [phone] PCP, Not Given Primary Care Provider Abisai Gambino Attending Provider [place] of Town, Provider Primary Care Provider Unav milenaable Yen Diallo Attending Provider [phone] Kristina Borden Attending Provider Nyasia Collins Attending Provider Jamel Fernandez Attending Provider Juvencio Fong Attending Provider Abbey Reynolds Attending Provider Allergies, Adverse Reactions, Alerts Allergen Type Severity Reaction Last Updated Verified Status simvastatin Adverse Reaction Moderate Novembe r 2018 Yes Active Sulfa (Sulfonamide Antibiotics) Adverse Reaction Unknown March 10, 2019 Yes Active Medications Medication Status Dose Units Route Sig Qty Days Start Date End Date Instructions Atorvastatin Active 40 MG ORAL BEDTIM E June 23, 2016 10:09am Metformin Discontinu ed 500 MG ORAL EVERY MORNIN G June 23, 2016 10:09am September 02, 2016 1:40pm Omeprazole Active 40 MG ORAL EVERY MORNIN G June 23, 2016 10:09am Aspirin Discontinu ed 81 MG ORAL BEDTIM E June 23, 2016 10:09am September 02, 2016 1:40pm Calcium Carbonate Active 500 MG ORAL TWICE A DAY June 23, 2016 10:09am Metformin Active 1000 MG ORAL TWICE A DAY June 23, 2016 10:09am Ibuprofen Active 600 MG ORAL THREE TIMES A DAY June 23, 2016 10:09am Lisinopril Discontinu ed 40 MG ORAL EVERY MORNIN G June 23, 2016 10:09am November 01, 2017 7:00am Multivitamin Discontinu ed 1 TAB-CA P ORAL EVERY MORNIN G June 23, 2016 10:09am Jaspreetbe r 2018 11:11am Atenolol Discontinu ed 50 MG ORAL EVERY MORNIN G June 23, 2016 10:09am Que r 2018 11:12am Magnesium Discontinu ed 400 MG ORAL EVERY EVENIN G June 23, 2016 10:09am Novembe r 2018 11:11am Nitrofurantoin Monohyd/M-Narcisa t Discontinu ed 1 CAP ORAL Q12H June 23, 2016 10:09am November 01, 2017 6:59am Cephalexin Discontinu ed 500 MG ORAL TWICE A DAY 14 October 03, 2017 11:40am November 01, 2017 6:59am Metoprolol Succinate Active November 01, 2017 6:58am Lisinopril Active TABLET Novemb er 2018 11:12am Prednisone Active 10 MG ORAL DAILY 5 5 Novemb er 2018 11:48am Fluticasone Propionate Active 1 SPR NASAL Q12H 9.9 March 10, 2019 11:49am administer into each nostril Guaifenesin Active 400 MG ORAL .q8hr 15 5 Novem stephy 2018 11:49am Benzonatate Active 100 MG ORAL every day at bedtim e 14 March 10, 2019 11:51am Problems Active Problems Medical Problem Onset Date Status Combined forms of age-related cataract April 262016 Active Acute Eustachian salpingitis, bilateral Active Acute maxillary sinusitis Active 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 Type 2 diabetes mellitus May 24, 2016 Acti ve Trochanteric bursitis February 27, 2018 Active 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 May 10, 2018 Active Thoracic and lumbosacral neuritis May 10, 2018 Active Impacted cerumen of left ear Act nguyễn History of cataract extraction July 07, 2016 Active 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 27, 2018 A ctive Inactive/Resolved Problems Medical Problem Onset Date Status Acute hip pain Resolved Post concussion syndrome Resolve d Acute UTI Resolved Procedures Procedure Date Performed Status Lumbar Spine 4 vw Min February 27, 2018 active MRI Lumbar Spine w/o Contrast April 09 8 completed Hip 2 vw Min RT February 22, [address] Head w/o Contrast November 01, 2017 completed MRI Brain w/wo Contrast November 01, 2017 complete d Urine Culture completed Extraction of cataract of le ft eye with insertion of intraocular lens September 07, 2016 7:35am completed Extraction of cataract of ri ght eye with insertion of intraocular lens June 29, 2016 9:35am completed Foot 3 vw Min RT January 10, 2012 completed X-RAY EXAM OF FOOT January 10, 2012 active Knee 4 vw Min Bilat July 14, 2011 completed X-RAY EXAM KNEE 4 OR MORE July 14, 2011 activ e Relevant Diagnostic Tests and/or Laboratory Data Laboratory Results Test Date/Time Result Interpretation Reference Range Result Comment Performing Site White Blood Count 6.39 1000/mm3 4.8-10.8 MAIN LAB, [address] [place] [address] Red Blood Count 4.01 M/mm3 4.20-5.40 [facility], [address] [place] [address] 13101 Hemoglobin 11.3 g/dL 12.0-16.0 MAIN LAB, [address] [place] [address] 36966 Hematocrit 35.9 % 37-47 MA[facility] LAB, [address] [place] [address] Mean Corpuscular Volume 89.5 fL 81.0-99.0 MAIN LAB, [address] [place] [address] 91680 Mean Corpuscular Hemoglobin 28.2 pg 27-31 MAIN LAB, [address] [place] [address] 53887 Mean Corpuscular Hemoglobin Concent 31.5 g/dL 33-37 MAIN LAB, [address] [place] [address] 00453 Red Cell Distribution Width 14.1 % 11.5-14.5 MAIN LAB, [address] [place] [address] 31716 Platelet Count 259 1000/mm3 140-440 MAIN [facility], [address] [place] [address] 80981 Mean Platelet Volume 9.9 fL 7.4-10.4 MAIN LAB, [address] [place] [address] 02932 Neutrophils (%) (Auto) 60.3 % 40.0-72.0 MAIN [facility], [address] [place] [address] 66173 Lymphocytes (%) (Auto) 29.4 % 17-45 MA[facility], [address] [place] [address] 47544 Monocytes (%) (Auto) 7.7 % 3-11 MAIN [facility], [address] [place] [address] 04274 Eosinophils (%) (Auto) 2.3 % 0-3 MAIN [facility], [address] [place] [address] 32285 Basophils (%) (Auto) 0.3 % 0-1 MA[facility], [address] [place] [address] 70789 Neutrophils # (Auto) 3.85 1000/mm3 1.4-6.5 MAIN LAB, [address] [place] [address] Lymphocytes # (Auto) 1.88 1000/mm3 1.2-3.4 MAIN [facility], [address] [place] [address] Monocytes # (Auto) 0.49 1000/mm3 0.0-0.8 MAIN LAB, [address] [place] [address] Eosinophils # (Auto) 0.15 1000/mm3 0.0-0.7 MAIN LAB, [address] [place] [address] Basophils # (Auto) 0.02 1000/mm3 0.0-0.1 MA[facility] LAB, [address] [place] [address] Differential Method Automated MAIN LAB, [address] [place] [address] Prothrombin Time 15.1 SECONDS 9.6-11.2 Prothrombin Time 21.0 SECONDS 9.6-11.2 Prothromb Time International Ratio 1.5 2.0-3.0 INR value valid only on patients on stabilized warfarin therapy. The recommended therapeutic range for warfarin (Coumadin) for most clinincal indications is an INR of 2.0-3.0. An INR of 2.5-3.5 is recommended for patients with mechanical heart valves. Prothromb Time International Ratio 2.1 2.0-3.0 INR value valid only on patients on stabilized warfarin therapy. The recommended therapeutic range for warfarin (Coumadin) for most clinincal indications is an INR of 2.0-3.0. An INR of 2.5-3.5 is recommended for patients with mechanical heart valves. Sodium Level 142 mmol/L 137-145 MAIN LAB , [address] [place] [address] Potassium Level 4.1 mmol/L 3.6-5.0 MAIN LAB, [address] [place] [address] Chloride Level 105 mmol/L 98-107 MAIN L AB, [address] [place] [address] Carbon Dioxide Level 28 mmol/L 22-30 MAIN LAB, [address] [place] [address] Anion Gap 9 7-16 MAIN LAB, [address] [place] [address] Blood Urea Nitrogen 20 mg/dL 7-17 MAIN LAB, [address] [place] [address] Creatinine 0.70 mg/dL 0.52-1.04 MAIN LAB , [address] [facility] [address] Glomerular Filtration Rate Calc > 60 mL/min >60.0 MAIN LAB, [address] [place] [address]407 Glucose Level 138 mg/dL 70-100 MAIN LAB , [address] [place] [address] 38710 Calcium Level 9.7 mg/dL 8.4-10.2 MAIN LA B, [address] [place] [address] Microbiology Results Procedure Source Result Collection Date/Time Result Date/Time Result Comment Performing Site Urine Culture Ur,Clean Catch Escherichia Coli October 05, 2017 8:42am MAIN LAB, [address] [place] [address] Diagnostic Imaging Reports Report Dictated Date/Time Dictated By Status Radiology Report July 15, 2011 12:05am Edmar Antony MD completed [facility] RADIOLOGY REPORT PATIENT NAME: BRYCE HILL 05 DATE OF : 1945 ATTENDING/ER PHYSICIAN: FOSTER Lopez ER/ATTENDING PHYSICIAN: PRIMARY CARE PHYS: FOSTER Lopez ADMITTING PHYSICIAN: CONSULTING PHYSICIAN: PROCEDURE DATE: 07/14/11 REPORT STATUS: Signed DICTATING PHYSICIAN: Edmar Antony MD REASON FOR EXAM: GENERALIZED OSTEOARTHRITIS BILATERAL KNEES, 5 VIEWS EACH TECHNIQUE: AP, both obliques, sunrise, and crosstable lateral views of each knee.. FINDINGS: Marginal osteophytes are moderates-sized at all 3 compartments of each knee. Even supine, the oblique views demonstrate narrowing of medial tibiofemoral joint spaces (severe on the left, and mild-moderate on the right). There are small suprapatellar joint effusions in each knee. There are findings are suspicious for at least three 2-4 mm loose bodies in the anterolateral right knee joint space. 3 and 6-mm calcific or ossific densities projecting posterior to the inferior end of the left patellar tendon on lateral view are not localized on other views, but might also represent loose bodies. . No opaque foreign body, fracture, dislocation or other osseous or joint abnormality demonstrated in either knee. Small phleboliths are noted in the anteromedial subcutaneous soft tissues of each knee. IMPRESSION: 1. Bilateral tricompartment arthritis is moderate, except for severe in the medial left tibiofemoral compartment. 2. Small bilateral joint effusions. 3. Loose bodies are suspected, particularly on the right. dd: 07/15/11 0005 <Electronically signed by Edmar Antony MD> 07/15/11 0019 Radiology Report January 10, 2012 1:43pm Treva Servin MD completed [facility] RADIOLOGY REPORT PATIENT NAME: BRYCE HILL 05 DATE OF : 1945 ATTENDING/ER PHYSICIAN: Bright Partida DPM ER/ATTENDING PHYSICIAN: PRIMARY CARE PHYS: FOSTER Lopez ADMITTING PHYSICIAN: CONSULTING PHYSICIAN: PROCEDURE DATE: 01/10/12 REPORT STATUS: Signed DICTATING PHYSICIAN: Treva Servin MD REASON FOR EXAM: HALLUX VALGUS STUDY: FOOT 3VW MIN RT Comparison exam dated 12/28/07 is available. FINDINGS: There is severe hallux valgus deformity with progressive loss of cartilage in the first MTP articulation. Hammertoe deformities of the second and third toes are unchanged. There are no acute osseous abnormalities. The osseous mineralization is normal. Moderate degenerative loss of cartilage space is identified in midfoot joints. There are no radiopaque foreign bodies. CONCLUSION: 1. No acute osseous abnormalities. dd: 01/10/12 1343 <Electronically signed by Treva Servin MD> 01/10/12 1346 Operative Report June 29, 2016 9:32am Abisai kraft MD completed [facility] Operative Report PATIENT NAME: BRYCE HILL [id number] DATE OF : 1945 ATTENDING PHYSICIAN: Abisai Rojas MD PRIMARY CARE PHYS: [place] DICTATING PHYSICIAN: Abisai Rojas MD REPORT STATUS: Signed DATE OF SERVICE: CC: Job Number: [id number] Date of Service: 06/29/2016 PREOPERATIVE DIAGNOSIS: Cataract, right eye POSTOPERATIVE DIAGNOSIS: Cataract, right eye OPERATION: Phacoemulsification with intraocular lens implant, right eye SURGEON: Abisai Rojas MD ANESTHESIA: Topical Lidocaine Jelly with 1% nonpreserved Lidocaine INDICATIONS FOR SURGERY: Decreased visual acuity. The details of the proposed procedure were explained to the patient, who asked appropriate questions and voiced understanding. Risks, including vision loss, blindness, infection, loss of eye, glaucoma, corneal failure, and possible need for additional surgery, as well as benefits and alternatives, were discussed and the patient elected to proceed with surgery. PROCEDURE: The patient was identified by name and date of . The operative eye was marked prior to the procedure in the preoperative holding area. A timeout occurred once the patient was in the operating room, and all were in agreement. The patient was brought to the operating room on an ambulatory eye bed, and Lidocaine jelly was placed into the right eye. The patient was prepped and draped in the usual sterile manner for right eye cataract surgery. The operating microscope was brought into position. A 15-degree blade was used to make a paracentesis in clear cornea at the temporal location. The above- mentioned anesthetic was injected into the anterior chamber. Provisc was then injected. A crescent blade, followed by a keratome, was then used to create a clear corneal incision several clock hours to the right of the paracentesis. A disposable cystotome and Utrata forceps were used to create a continuous curvilinear capsulorrhexis. Balanced Salt Solution (BSS) on a straight syringe was used to hydrodissect and hydrodelineate the nucleus. Phacoemulsification was used to sculpt the nucleus in half, and nucleus was then cracked. Phacoemulsification was used to remove each nuclear half with the aid of a chopping instrument. The I/A tip was used to remove residual cortex. Viscoelastic was injected into the capsular bag. A bent crescent blade was used to enlarge the corneal incision. An Hugh [id number] 19.5 diopter lens serial #[id number] was placed in the capsular bag using an injector. Good centration of the lens was achieved. Residual viscoelastic was aspirated. The chamber was reformed using BSS. BSS was used to hydrate the paracentesis and surgical wounds. The wounds were found to be water-tight. One drop of Maxitrol was instilled and a clear shield was placed over the eye. The patient tolerated the procedure well, and was returned to the recovery room in stable condition, was assessed, and found suitable for discharge. [id number] dd: 06/29/2016 09:32:46 dt: 06/29/2016 09:44:06 <Electronically signed by Abisai Rojas MD> 06/29/16 1642 Operative Report September 07, 2016 7:53am Abisai Rojas MD completed [facility] Operative Report PATIENT NAME: BRYCE HILL [id number] DATE OF : 1945 ATTENDING PHYSICIAN: Abisai Rojas MD PRIMARY CARE PHYS: FOSTER Lopez DICTATING PHYSICIAN: Abisai Rojas MD REPORT STATUS: Signed CC: Job Number: [id number] Date of Service: 09/07/2016 PREOPERATIVE DIAGNOSIS: Cataract, left eye POSTOPERATIVE DIAGNOSIS: Cataract, left eye OPERATION: Phacoemulsification with intraocular lens implant, left eye SURGEON: Abisai Rojas MD ANESTHESIA: Topical Lidocaine Jelly with 1% nonpreserved Lidocaine INDICATIONS FOR SURGERY: Decreased visual acuity. The details of the proposed procedure were explained to the patient, who asked appropriate questions and voiced understanding. Risks, including vision loss, blindness, infection, loss of eye, glaucoma, corneal failure, and possible need for additional surgery, as well as benefits and alternatives, were discussed and the patient elected to proceed with surgery. PROCEDURE: The patient was identified by name and date of . The operative eye was marked prior to the procedure in the preoperative holding area. A timeout occurred once the patient was in the operating room, and all were in agreement. The patient was brought to the operating room on an ambulatory eye bed, and Lidocaine jelly was placed into the left eye. The patient was prepped and draped in the usual sterile manner for left eye cataract surgery. The operating microscope was brought into position. A 15-degree blade was used to make a paracentesis in clear cornea at the temporal location. The above-mentioned anesthetic was injected into the anterior chamber. Provisc was then injected. A crescent blade, followed by a keratome, was then used to create a clear corneal incision several clock hours to the right of the paracentesis. A disposable cystotome and Utrata forceps were used to create a continuous curvilinear capsulorrhexis. Balanced Salt Solution (BSS) on a straight syringe was used to hydrodissect and hydrodelineate the nucleus. Phacoemulsification was used to sculpt the nucleus in half, and nucleus was then cracked. Phacoemulsification was used to remove each nuclear half with the aid of a chopping instrument. The I/A tip was used to remove residual cortex. Viscoelastic was injected into the capsular bag. A bent crescent blade was used to enlarge the corneal incision. An Hugh [id number] 19.5 diopter lens (serial #[id number]) was placed in the capsular bag using an injector. Good centration of the lens was achieved. Residual viscoelastic was aspirated. The chamber was reformed using BSS. BSS was used to hydrate the paracentesis and surgical wounds. The wounds were found to be watertight. One drop of Maxitrol was instilled and a clear shield was placed over the eye. The patient tolerated the procedure well, and was returned to the recovery room in stable condition, was assessed, and found suitable for discharge. [id number] dd: 09/07/2016 07:53:49 dt: 09/07/2016 09:20:39 <Electronically signed by Abisai Rojas MD> 09/07/16 1150 Radiology Report November 01, 2017 8:39am Edmar Antony MD completed [facility] CAT SCAN REPORT PATIENT NAME: BRYCE HILL 05 DATE OF : 1945 ATTENDING/ER PHYSICIAN: ER/ATTENDING PHYSICIAN: Devaughn Cardona MD PRIMARY CARE PHYS: FOSTER Lopez ADMITTING PHYSICIAN: CONSULTING PHYSICIAN: PROCEDURE DATE: 11/01/17 REPORT STATUS: Signed DICTATING PHYSICIAN: Edmar Antony MD REASON FOR EXAM: closed head injury CT HEAD (w/o contrast) HISTORY: Pt. Reports she fell down cellar stairs on her left side five days ago. Initially c/o Head/neck pain. Has been lightheaded this morning. Was seen for visual disturbance yesterday (Described seeing waves). Seen at [facility] on 10/28/17. TECHNIQUE: Unenhanced 1 and 5 mm axial and 5-mm reconstructed sagittal and coronal images. COMPARISON: None. FINDINGS: A 6 mm thick by 19 x 16 mm hyperdense recent subcutaneous hematoma is noted in the high convexity and parasagittal anterior left parietal scalp. There is a small amount of edema or ecchymosis in the scalp surrounding the hematoma. Sulci in the parasagittal bilateral frontal and parietal lobes are moderate and large and are borderline to mildly prominent for a 72-year-old. Elsewhere diffuse mild cerebral and cerebellar sulcal prominence is age consistent. Normal midline ventricles. No appreciable thinning of the corpus callosum. A 5 x 10 x 12 mm volume of increased density with laterally convex margin is noted in the left parasellar and medial left middle fossa. Its obtuse margins suggest that this is dural or extradural. A small meningioma is suspected, but an aneurysm from the [facility] or a small subdural hematoma are not ent irely excluded. MRI of the brain (pre and post IV gadolinium) is suggested for further evaluation. There is mild bilateral carotid siphon calcification. No other evidence of hemorrhage or other abnormal density. No other mass-effect, abnormal extraaxial fluid collection or other intracranial abnormality. Burnett-white differentiation is maintained. Hyperostosis frontalis interna is moderately prominent. There is mild bilateral TMJ arthritis. No depressed or obvious skull fracture or other osseous abnormality. Mastoids and visualized upper paranasal sinuses are well aerated. IMPRESSION: 1. Small left anterior parietal scalp hematoma with surrounding edema/ecchymosis. 2. Suspected small meningioma (vs possible aneurysm or small subdural hematoma) in left parasellar/medial left middle fossa location. 2. Suggest MRI of the brain, pre and post IV gadolinium. 3. Bilateral frontoparietal cerebral volume loss is borderline prominent for age. 5. Mild arterial calcification. 6. No other significant intracranial abnormality is demonstrated by noncontrast CT. At 0900 hours on 11/01/2017, I called Dr. Cardona in the ED to inform him of the findings in the medial left middle fossa and of my recommendation for brain MRI pre and post IV gadolinium. dd: 11/01/17 0839 <Electronically signed by Edmar Antony MD in OV> 11/01/17 0904 Electrocardiogram November 01, 2017 8:04am Devaughn sarmiento MD completed [facility] EKG Report PATIENT NAME: BRYCE HILL [id number] DATE OF : 1945 ATTENDING PHYSICIAN: PRIMARY CARE PHYS: FOSTER Lopez DICTATING PHYSICIAN: Devaughn Cardona MD REPORT STATUS: Signed Test Reason : Blood Pressure : / mmHG Vent. Rate : 072 BPM Atrial Rate : 072 BPM P-R Int : 234 ms QRS Dur : 086 ms QT Int : 412 ms P-R-T Axes : 032 -08 003 degrees QTc Int : 451 ms Sinus rhythm with 1st degree AV block with premature atrial complexes Moderate voltage criteria for LVH, may be normal variant Borderline ECG No previous ECGs available Confirmed by Devaughn Cardona ([id number]) on 11/01/2017 10:07:00 AM Referred By: Devaughn Cardona Confirmed By:Devaughn Cardona 11/01/17 1007 Radiology Report November 01, 2017 10:47am Lorraine Chambers MD completed [facility] MRI REPORT PATIENT NAME: BRYCE HILL 05 DATE OF : 1945 ATTENDING/ER PHYSICIAN: ER/ATTENDING PHYSICIAN: Devaughn Cardona MD PRIMARY CARE PHYS: FOSTER Lopez ADMITTING PHYSICIAN: CONSULTING PHYSICIAN: PROCEDURE DATE: 11/01/17 REPORT STATUS: Signed DICTATING PHYSICIAN: Lorraine Chambers MD, PhD REASON FOR EXAM: head trauma ? abnormal CT STUDY: MRI Brain w/wo Contrast COMPARISON: CT of the head from the same day TECHNIQUE: Multiple multi-sequence MR images of the brain were obtained with and without administration of intravenous gadolinium contrast. FINDINGS: There is no restricted diffusion to suggest acute brain ischemia. There is no abnormal parenchymal susceptibility gradient to suggest blood products. Several foci of abnormal FLAIR/T2 signal hyperintensities visualized in the periventricular and bilateral wharton radiata white matter are suggestive of microangiopathic ischemic changes. No AVM, aneurysm or significant vascular stenosis is identified. There is no intracranial hemorrhage, mass, midline shift or extra-axial fluid collection. The ventricles and basal cisterns demonstrate symmetric configuration. There is no hydrocephalus. Parenchymal volume loss is commensurate with patient's age. Normal flow voids are identified in the anterior and posterior circulation. The paranasal sinuses and mastoid air cells are clear. CONCLUSION: 1. No acute ischemic stroke, intracranial hemorrhage, mass or extra-axial fluid collection. 2. No AVM, aneurysm or significant vascular stenosis of the intracranial vessels. 3. Mild age appropriate volume loss and mild microangiopathic ischemic changes in bilateral wharton radiata. dd: 11/01/17 1047 <Electronically signed by Lorraine Chambers MD, PhD in OV> 11/01/17 1129 Radiology Report February 22, 2018 10:10am Treva Servin MD completed [facility] RADIOLOGY REPORT PATIENT NAME: BRYCE HILL 05 DATE OF : 1945 ATTENDING/ER PHYSICIAN: ER/ATTENDING PHYSICIAN: Nyasia Collins NP PRIMARY CARE PHYS: FOSTER Lopez ADMITTING PHYSICIAN: CONSULTING PHYSICIAN: PROCEDURE DATE: 02/22/18 REPORT STATUS: Signed DICTATING PHYSICIAN: Treva Servin MD REASON FOR EXAM: rt hip pain w/ WB STUDY: Hip 2 vw Min RT FINDINGS: There are no acute osseous abnormalities. There is mild gluteus enthesopathy. Moderate degenerative loss of acetabular joint space is noted. There is no hip joint effusion. The obturator ring is intact. CONCLUSION: 1. No acute osseous abnormalities. dd: 02/22/18 1010 <Electronically signed by Treva Servin MD in OV> 02/22/18 1011 Radiology Report April 09, 2018 2:00pm Lorraine Chambers MD completed [facility] MRI REPORT PATIENT NAME: BRYCE HILL 05 DATE OF : 1945 ATTENDING/ER PHYSICIAN: Jamel Fernandez PA-C ER/ATTENDING PHYSICIAN: PRIMARY CARE PHYS: FOSTER Lopez ADMITTING PHYSICIAN: CONSULTING PHYSICIAN: PROCEDURE DATE: 04/09/18 REPORT STATUS: Signed DICTATING PHYSICIAN: Lorraine Chambers MD, PhD REASON FOR EXAM: LOW BACK PAIN M47.896 STUDY: MRI Lumbar Spine w/o Contrast COMPARISON: Lumbar spinal radiograph of 02/27/2018 TECHNIQUE: Multiplanar multi-sequence images of the lumbar spine were obtained without administration of IV contrast. FINDINGS: There is a grade 1 retrolisthesis of L1 on L2 and L2 on L3. In addition, there is a grade 1 anterolisthesis of L4 on L5. Multilevel Schmorl's nodules and endplate deformities are noted at T11-L2 with associated intervertebral disc space loss and anterior endplate osteophyte formation. There is no acute fracture. No marrow edema is identified. A couple of T1/T2 hyperintensities visualized in T12 and L1 represent osseous hemangiomas. Otherwise, the bone marrow signal is normal. Posterior elements appear intact. The spinal cord terminates at L1. The cauda equina is normal in appearance. Axial images demonstrate the following: T11-T12: There is a central and right foraminal protrusion without significant central canal stenosis. Foraminal disc may contribute to compression on the right exiting T12 nerve. No significant neural foraminal stenosis T12-L1: No significant central canal or neural foraminal stenosis L1-L2: The site of grade 1 retrolisthesis without significant central canal stenosis. Bilateral moderate hypertrophic facet arthropathy with joint effusions with moderate to severe left and moderate right neural foraminal stenosis. Right foraminal disc may cause mass effect on exiting right L1 nerve. L2-L3: The site of grade 1 retrolisthesis, bilateral hypertrophic facet arthropathy and ligamentum flavum hypertrophy with mild central canal stenosis. Severe left and mild right neural foraminal stenosis. Foraminal disc may contribute to mass effect on exiting bilateral L2 nerves. L3-L4: Broad-based shallow disc bulge, bilateral hypertrophic facet arthropathy and ligamentum flavum hypertrophy with moderate central canal stenosis. The AP diameter measures 8 mm on sagittal view. Moderate bilateral neural foraminal narrowing, left greater than right. L4-L5: The site of grade 1 anterolisthesis with uncovering disc. The visualized T2 signal hyperintensity is suggestive of annular fissure. Congenitally short pedicles, bilateral moderate hypertrophic facet arthropathy and severe ligamentum flavum hypertrophy result in severe central canal stenosis. Moderate left and mild right neural foraminal narrowing L5-S1: Shallow broad-based disc protrusion, congenitally short pedicles, moderate facet arthropathy and ligamentum flavum hypertrophy result in mild central canal stenosis. Moderate left and mild right neural foraminal stenosis Limited evaluation of the soft tissues demonstrates mild to moderate paraspinous muscle atrophy. Hypertrophic changes are visualized in bilateral sacroiliac joints. CONCLUSION: 1. Multilevel degenerative spondylosis with grade 1 retrolisthesis at L1-L2 and L2-L3 and grade 1 anterolisthesis at L4-L5. 2. Moderate central canal stenosis at L3-L4 and severe central canal stenosis at L4-L5. 3. Foraminal disc at T11-T12, L1-L2 and L2-L3 may cause compression of exiting right T11, right L1 and bilateral exiting L2 nerves. 4. Moderate hypertrophic facet adenopathy with multilevel moderate neural foraminal stenosis. dd: 04/09/18 1400 <Electronically signed by Lorraine Chambers MD, PhD in OV> 04/09/18 2339 Advance Directives Advance Directive Response Recorded Date/ Time Does patient have an Advanced Directive? Yes June 29, 2016 8:06am Do we have a copy on file here at [facility]? Yes June 29, 2016 8:06am Pt has a Living Will? Yes June 29, 2016 8:06am Do we have a copy on file here at [facility]? Yes June 29, 2016 8:06am Pt has a Power of Bowling [employer] Marker? Yes 2016 8:06am Do we have a copy on file here at [facility]? 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, RIGHT EYE PBB Provider Based Billing COMBINED FORMS OF AGE-RELATED CATARACT, LEFT EYE Provider Based Billing Provider Based Billing Provider Based Billing LIGHT HEADED Provider Based Billing Provider Based Billing Neck Pain Provider Based Billing Provider Based Billing xr Provider Based Billing hip Provider Based Billing LOW BACK PAIN M47.896 Provider Based Billing Provider Based Billing Provider Based Billing Provider Based Billing Encounters Encounter Location(s) Arrival/Admit Date Discharge/Depart Date Provider(s) Departed Physician/Provi david Office Visit [facility]-CONV Misc Comp Pain location Conversion Medent Departed [facility]DI [facility] December 28, 2007 12:00am December 28, 2007 Bright Partida DPM Departed [facility] May 28, 2009 2:00pm May 28, 2009 11:59pm [facility]cp No [facility], 2009 1:55pm August 27, 2009 1:33pm Pcp No Departed Clinical [facility]-Chronic Disease November 10, 2009 9:21am November 10, 2009 11:59pm Barbara HUTCHISON Departed Clinical [facility]-Chronic Disease December 01, 2009 9:20am December 01, 2009 11:59pm Barbara HUTCHISON Departed Clinical [facility]-Chronic Disease December 08, 2009 10:25am December 08, 2009 11:59pm Barbara HUTCHISON Departed Clinical [facility]-Chronic Disease December 15, 2009 9:45am December 15, 2009 11:59pm Barbara HUTCHISON Departed Clinical [facility]-Chronic Disease January 08, 2010 2:20pm January 08, 2010 11:59pm Barbara HUTCHISON Registered Clinical [facility] July 14, 2011 10:14am Barbara HUTCHISON Registered Clinical [facility] January 10, 2012 12:23pm Bright Partida DPM Discharged Recurring [facility]-Physical Therapy August 14, 2012 1:15pm October 18, 2012 6:58am Russel Otto MD Registered Referred [facility] January 23, 2013 11:51am Geri Ardon MD Discharged Recurring [facility]-Physical Therapy January 30, 2013 12:45pm April 30, 2013 10:50am Russel Otto MD Registered Clinical [facility]-Laboratory January 30, 2013 3:54pm Russel Otto MD Departed Physician/Provi david Office Visit [facility] Primary [facility] December 24, 2013 12:00am December 24, 2013 Conversion Medent Departed Physician/Provi david Office Visit [facility]-Lifestyle Medicine January 11, 2016 12:00am January 11, [address] Departed Physician/Provi david Office Visit [facility]-Lifestyle Medicine 2016 12:00am 2016 Nidia Batres , RN Registered Clinical [facility]-Life Style Med [facility] 2016 8:00am Barbara HUTCHISON Departed Physician/Provi david Office Visit [facility]-Lifestyle Medicine February 13, 2016 12:00am February 13, 2016 Conversion Medent Departed Physician/Provi david Office Visit [facility]-Lifestyle Medicine February 20, 2016 12:00am February 20, 2016 Nidia Batres RN Registered Clinical [facility]-Life [facility] [place] February 20, 2016 8:00am Barbara TIPTONP Departed Physician/Provi david Office Visit [facility] n Urgent [facility] February 24, 2016 12:00am February 24, 2016 VELMA Ramey Departed Physician/Provi david Office Visit [facility]-Lifestyle Medicine February 27, 2016 12:00am February 27, 2016 Nidia Batres RN Registered Clinical [facility] [place] February 27, 2016 8:00am Barbara TIPTONP Departed Physician/Provi david Office Visit [facility]-Lifestyle Medicine March 05, 2016 12:00am March 05, 2016 Nidia Batres RN Registered Clinical [facility] [place] March 05, 2016 8:00am Barbara TIPTONP Departed Physician/Provi david Office Visit [facility] n Ophthalmology May 24, 2016 12:00am May 24, 2016 Conversion Medent Registered Clinical [facility] n Ophthalmology May 24, 2016 2:52pm Abisai oRjas MD Departed Surgical Day Care [facility]-Surgical Services June 29, 2016 8:00am June 29, 2016 9:49am Abisai Rojas MD Departed Physician/Provi david Office Visit [facility] n Ophthalmology June 30, 2016 12:00am June 30, 2016 Conversion Medent Departed Physician/Provi david Office Visit [facility] n Ophthalmology June 30, 2016 8:13am June 30, 2016 8:14am Abisai Rojas MD Departed Physician/Provi david Office Visit [facility] n Ophthalmology July 07, 2016 12:00am July 07, 2016 Conversion Medent Departed Physician/Provi david Office Visit [facility] n Ophthalmology July 07, 2016 9:12am July 07, 2016 9:13am Abisai Rojas MD Departed Physician/Provi david Office Visit [facility] n Ophthalmology July 14, 2016 12:00am July 14, 2016 Conversion Medent Departed Physician/Provi david Office Visit [facility] n Ophthalmology July 21, 2016 12:00am July 21, 2016 Conversion Medent Departed Surgical Day Care [facility]-Surgical Services September 07, 2016 6:28am September 07, 2016 8:18am Abisai Rojas MD Departed Physician/Provi david Office Visit [facility] Ophthalmology September 08, 2016 12:00am September 08, 2016 Conversion Medent Departed Physician/Provi david Office Visit [facility] Ophthalmology September 08, 2016 8:05am September 08, 2016 8:06am Abisai Rojas MD Departed Physician/Provi david Office Visit [facility] Ophthalmology September 15, 2016 12:00am September 15, 2016 Conversion Medent Departed Physician/Provi david Office Visit [facility] Ophthalmology October 13, 2016 12:00am October 13, 2016 Conversion Medent Departed Physician/Provi david Office Visit [facility] Ophthalmology October 13, 2016 8:59am October 13, 2016 9:00am Abisai Rojas MD Departed Emergency [facility] Urgent [facility] October 03, 2017 10:36am October 03, 2017 11:45am null Departed Physician/Provi david Office Visit [facility] Urgent [facility] October 03, 2017 10:42am October 03, 2017 10:43am VELMA Ramey Departed Emergency [facility]-Emergency Department November 01, 2017 6:46am November 01, 2017 11:28am null Departed Physician/Provi david Office Visit [facility] Dermatology December 12, 2017 12:00am December 12, 2017 Conversion Medent Departed Referred [facility]-Pathology December 12, 2017 7:45am December 12, 2017 7:46am Kristina Borden MD Departed Physician/Provi david Office Visit [facility] Dermatology December 12, 2017 11:08am December 12, 2017 11:09am Kristina Borden MD Departed Physician/Provi david Office Visit [facility] Dermatology February 08, 2018 12:00am February 08, 2018 Conversion Medent Departed Physician/Provi david Office Visit [facility] Dermatology February 08, 2018 9:41am February 08, 2018 9:42am Kristina Borden MD Discharged Recurring [facility] February 20, 2018 9:30am March 12, 2018 11:29am Barbara HUTCHISON Departed Emergency [facility] February 22, 2018 8:55am February 22, 2018 10:19am null Departed Physician/Provi david Office [place] [facility] February 22, 2018 8:59am February 22, 2018 9:00am Nyasia Collins NP Departed Physician/Provi david Office Visit [facility] Orthopedic&Rehab February 27, 2018 12:00am February 27, 2018 DEEPIKA Fernandez Departed Physician/Provi david Office Visit [facility] Orthopedics February 27, 2018 9:24am February 27, 2018 9:25am DEEPIKA Fernandez Departed Clinical [facility] Orthopedic February 27, 2018 10:03am February 27, 2018 10:04am DEEPIKA Fernandez Departed Physician/Provi david Office Visit [facility] Orthopedic&Rehab March 13, 2018 12:00am March 13, 2018 DEEPIKA Fernandez Departed Physician/Provi david Office Visit [facility] Orthopedics March 13, 2018 9:05am March 13, 2018 9:06am DEEPIKA Fernandez Discharged Recurring [facility] March 21, 2018 10:30am April 25, 2018 11:29am DEEPIKA Fernandez Departed Physician/Provi david Office Visit [facility] Orthopedic&Rehab March 26, 2018 12:00am March 26, 2018 DEEPIKA Fernandez Departed Physician/Provi david Office Visit [facility] Orthopedics March 26, 2018 8:52am March 26, 2018 8:53am DEEPIKA Fernandez Departed Clinical [facility] April 09, 2018 12:08pm April 09, 2018 12:09pm PASusie Fernandez Departed Physician/Provi david Office Visit [facility] Orthopedic&Rehab April 11, 2018 12:00am April 11, 2018 DEEPIKA Fernandez Departed Physician/Provi david Office Visit [facility] Orthopedic&Rehab April 13, 2018 12:00am April 13, 2018 DEEPIKA Fernandez Departed Physician/Provi david Office Visit [facility] Orthopedics April 13, 2018 1:53pm April 13, 2018 1:54pm DEEPIKA Fernandez Departed Physician/Provi david Office Visit [facility] Orthopedic&Rehab May 10, 2018 12:00am May 10, 2018 Conversion Medent Departed Physician/Provi david Office Visit [facility] Orthopedics May 10, 2018 9:13am May 10, 2018 9:14am Juvencio Fong DO Departed Physician/Provi david Office Visit [facility] Dermatology August 20, 2018 12:00am August 20, 2018 Conversion Medent Departed Physician/Provi david Office Visit [facility] Orthopedic&Rehab August 21, 2018 12:00am August 21, 2018 Conversion Medent Departed Physician/Provi david Office Visit [facility] Orthopedics August 21, 2018 8:51am August 21, 2018 8:52am Juvencio Fong DO Departed Emergency [facility] March 10, 2019 11:07am March 10, 2019 12:00pm null Departed Physician/Provi david Office [place] [facility] March 10, 2019 11:09am March 10, 2019 11:10am PAC Abbey Reynolds Assessments No Assessments Information Available Family History Relationship Condition Age at Onset Recorded Date/T jose Sibling Diabetes mellitus Unknown Parent Uses contact lenses Unknown Parent Diabetes mellitus Unknown Sibling Diabetes mellitus Unknown Functional Status Observation Response Date Recorded Living Situation Alone March 10, 2019 11:13am Living Situation Alone February 22 9:10am Living Situation Alone November 01, 2017 11:27am Living Situation Alone October 03, 2017 11:04am Living Situation Alone September 07, 2016 6:41am Home September 07, 2016 6 :41am Ambulation Ability Independent June 23 10:22am Clothing Mgt Ability Independent June 23, 2016 10:22am Feeding Ability Independent June 23, 2016 10:22am Hygiene & Grooming Ability Independent June 23, 2016 10:22am Oral Hygiene Ability Independent June 23, 2016 10:22am Toileting Ability Independent June 23 7 10:22am Living Situation Alone June 23, 2016 10:22am Goals Goals may be documented in an alternate section. Mental Status Observation Response Date Recorded Comprehension Ability Understands Concepts August 222016 6:41am Speech Appropriate September 07, 2016 6 :41am Clear September 07, 2016 6 :41am Comprehension Ability Understands Concepts June 29, 2016 8:25am Speech Clear June 29, 2016 8:25am Medical Equipment Implanted Devices Device Date Implanted Device Details LENS [id number] 19.5 June 29, 2016 GUSTAVO: LENS [id number] 19.5 September 07, 2016 GUSTAVO: Insurance Providers Guarantor BRYCE Barnett LIZ Address [address] [place] [place] [address] Contact Info. Home Phone: Payer Policy Id Coverage Id Subscriber's Name Subscriber Id Effective Date Expiration Date BLUE CROSS OUT OF STATE [id number] BRYCE HILL [id number] MEDICARE OUT (DO NOT USE) [id number] BRYCE HILL [id number] 2011 MEDICARE PART A AND B COVERAGE [id number] BRYCE HILL [id number] SELF PAY Self N/A [facility] CARE [id number] BRYCE HILL [id number] [facility] (DO NOT USE) [id number] BRYCE HILL [id number] 2016 Plan of Treatment Future Tests Future scheduled test information is unavailable Pending Tests Pending diagnostic test information is unavailable Future Visits Future appointment information is unavailable Referrals to Other Providers Reason for Referral Referral Start Date Provider Provider Contact Information Provider Address Barbara HUTCHISON [place] Juan Haskins MD Work Phone: [facility] Orthopaedics [address] [facility] [address] Barbara HUTCHISON [place] Future Procedures Future procedure information [...] smoker March 10 11:34am Assigned Sex Female Vital Signs Vital Reading Result Reference Range Collection Date/Time Height 64 [in_i] January 11, 2016 1:34pm Weight 92.98 kg January 11, 2016 1:34pm BMI (Body Mass Index) 35.2 kg/m2 2015 1:34pm Height 64 [in_i] February 23, 2 016 3:44pm Weight 92.98 kg February 23, 2 016 3:44pm Body Temperature 98.3 [degF] 97.6-99.6 February 3:44pm Heart Rate 74 /min 60-100 February 23, 2 016 3:44pm Respiratory rate 16 /min 12-February 3:44pm Oxygen saturation by Pulse oximetry 98 % 95-100 February 24, 2016 3 :44pm BP Systolic 120 mm[Hg] 100-140 February 23, 2 016 3:44pm BP Diastolic 80 mm[Hg] 50-85 February 23, 2 016 3:44pm BMI (Body Mass Index) 35.2 kg/m2 Novemb er 2015 3:44pm Height 64 [in_i] May 24, 2 017 3:13pm Weight 90.71 kg May 24, 2 017 3:13pm Heart Rate 73 /min 60-100 May 24, 2 017 3:13pm Respiratory rate 16 /min -April 3:13pm BP Systolic 124 mm[Hg] 100-140 May 24, 2 017 3:13pm BP Diastolic 61 mm[Hg] 50-85 May 24, 2 017 3:13pm BMI (Body Mass Index) 34.3 kg/m2 Harriett kraft 2016 3:13pm Height 64 [in_i] June 23, 2016 10:22am Weight 90.71 kg June 23, 2016 10:22am Body Temperature 97.8 [degF] 97.6-99.6 June 29, 2016 9:48am Heart Rate 53 /min 60-100 June 29, 2016 9:48am Respiratory rate 20 /min 12-June 29, 2016 9:48am BP Systolic 141 mm[Hg] 100-140 June 29, 2016 9:48am BP Diastolic 87 mm[Hg] 50-85 June 29, 2016 9:48am Height 63.5 [in_i] September 07, 2016 6:41am Weight 88.45 kg September 07, 2016 6:41am Body Temperature 97.8 [degF] 97.6-99.6 September 07, 2 017 8:14am Heart Rate 63 /min 60-100 September 07, 2016 8:14am Respiratory rate 18 /min 12-September 07, 2 017 8:14am Oxygen saturation by Pulse oximetry 96 % 95-100 September 07, 2016 8:14a m BP Systolic 148 mm[Hg] 100-140 September 07, 2016 8:14am BP Diastolic 91 mm[Hg] 50-85 September 07, 2016 8:14am BMI (Body Mass Index) 34.0 kg/m2 September 072016 6:41am Weight 88.45 kg October 03, 2017 11:04am Body Temperature 101.7 [degF] 97.6-99.6 October 03, 2017 11:04am Heart Rate 68 /min 60-100 October 03, 2017 11:04am Respiratory rate 15 /min -October 03, 2017 11:04am Oxygen saturation by Pulse oximetry 96 % 95-100 October 03, 2017 11:0 4am BP Systolic 110 mm[Hg] 100-140 October 03, 2017 11:04am BP Diastolic 70 mm[Hg] 50-85 October 03, 2017 11:04am Weight 88.45 kg November 01, 2017 6:50am Body Temperature 98.4 [degF] 97.6-99.6 November 01, 2017 6:50am Heart Rate 87 /min 60-100 November 01, 2017 6:50am Respiratory rate 16 /min 12-24 November 01, 2017 6:50am Oxygen saturation by Pulse oximetry 97 % 95-100 November 01, 2017 6:50 am BP Systolic 152 mm[Hg] 100-140 November 01, 2017 6:50am BP Diastolic 82 mm[Hg] 50-85 November 01, 2017 6:50am Height 64 [in_i] December 12, 11:09am Weight 88.45 kg December 12, 11:09am Heart Rate 67 /min 60-100 December 12, 11:09am BP Systolic 122 mm[Hg] 100-140 December 12, 11:09am BP Diastolic 80 mm[Hg] 50-85 December 12, 11:09am BMI (Body Mass Index) 33.5 kg/m2 December 12, 2017 11:09am Height 64 [in_i] February 08, 2 018 10:30am Weight 88.45 kg February 08, 2 018 10:30am Heart Rate 66 /min 60-100 February 08, 2 018 10:30am BP Systolic 132 mm[Hg] 100-140 February 08, 2 018 10:30am BP Diastolic 81 mm[Hg] 50-85 February 08, 2 018 10:30am BMI (Body Mass Index) 33[facility]5 [facility] Weight 88.45 kg February 22, 2 018 9:10am Body Temperature 98.4 [degF] 97.6-99.6 February 9:10am Heart Rate 72 /min 60-100 February 22, 2 018 9:10am Respiratory rate 16 /min 12-24 February 9:10am Oxygen saturation by Pulse oximetry 98 % 95-100 February 22, 2018 9 :10am BP Systolic 128 mm[Hg] 100-140 February 22, 2 018 9:10am BP Diastolic 74 mm[Hg] 50-85 February 22, 2 018 9:10am Height 64 [in_i] February 27, 2 018 9:55am Weight 88.45 kg February 27, 2 018 9:55am BP Systolic 110 mm[Hg] 100-140 February 27, 2 018 9:55am BP Diastolic 70 mm[Hg] 50-85 February 27, 2 018 9:55am BMI (Body Mass Index) 33.5 kg/m2 [facility] 2017 9:55am Height 64 [in_i] March 13, 2018 9:16am Weight 88.45 kg March 13, 2018 9:16am Heart Rate 73 /min 60-100 March 13, 2018 9:16am Oxygen saturation by Pulse oximetry 97 % 95-100 March 13, 2018 9:16am BP Systolic 136 mm[Hg] 100-140 March 13, 2018 9:16am BP Diastolic 70 mm[Hg] 50-85 March 13, 2018 9:16am BMI (Body Mass Index) 33.5 kg/m2 [facility] 2017 9:16am Height 64 [in_i] March 26, 2 018 8:53am Weight 88.45 kg March 26, 2 018 8:53am Heart Rate 72 /min 60-100 March 26, 2 018 8:53am Oxygen saturation by Pulse oximetry 98 % 95-100 March 26, 2018 8 :53am BP Systolic 124 mm[Hg] 100-140 March 26, 2 018 8:53am BP Diastolic 62 mm[Hg] 50-85 March 26, 2 018 8:53am BMI (Body Mass Index) 33.5 kg/m2 [facility] 2017 8:53am Height 65 [in_i] April 13, 2018 1:55pm Weight 86.18 kg April 13, 2018 1:55pm Heart Rate 74 /min 60-100 April 13, 2018 1:55pm Oxygen saturation by Pulse oximetry 97 % 95-100 April 13, 2018 1:55pm BP Systolic 138 mm[Hg] 100-140 April 13, 2018 1:55pm BP Diastolic 84 mm[Hg] 50-85 April 13, 2018 1:55pm BMI (Body Mass Index) 31.6 kg/m2 [facility] 2017 1:55pm Height 65 [in_i] May 10, 2 019 9:17am Weight 86.18 kg May 10, 2 019 9:17am Heart Rate 64 /min 60-100 May 10, 2 019 9:17am Respiratory rate 16 /min 12-24 April 9:17am Oxygen saturation by Pulse oximetry 96 % 95-100 May 10, 2018 9 :17am BP Systolic 122 mm[Hg] 100-140 May 10, 2 019 9:17am BP Diastolic 79 mm[Hg] 50-85 May 10, 2 019 9:17am BMI (Body Mass Index) 31.6 kg/m2 2018 9:17am BMI (Body Mass Index) 34.0 kg/m2 September 072016 6:41am Height 64.50 [in_i] March 10, 2019 11:13am Weight 86.18 kg March 10, 2019 11:13am Body Temperature 99.0 [degF] 97.6-99.6 March 102018 11:13am Heart Rate 85 /min 60-100 March 10, 2019 11:13am Respiratory rate 18 /min 12-24 March 102018 11:13am Oxygen saturation by Pulse oximetry 98 % 95-100 March 10, 2019 11:13am BP Systolic 128 mm[Hg] 100-140 March 10, 2019 11:13am BP Diastolic 72 mm[Hg] 50-85 March 10, 2019 11:13am BMI (Body Mass Index) 32.1 kg/m2 [facility] 2018 11:13am
--- OUTSIDE RECORDS SUMMARY | 2024-03-18 22:07 | XMS_ITS | Continuity of Care Document ---
Author Organization Address [address], [place] [address] Phone Support Name Relationship Address Phone JOSÉ RUIZ Child-Son/Daughter Unknown MAGGY RUIZ Child-Son/Daughter Unknown Barbara [place] [address] Care Teams Patient Care Team Team Status: Active Member Role Status Dates Barbara Conway Primary Care Provider Active Patient Care Team Team Status: Inactive Member Role Status Dates Barbara Conway Primary Care Provide r, Attending Provider Active Start: November 27, 2023 End: November 27, 2023 Chief Complaint and Reason for Visit Chief Complaint Admit Date Lab November 27, 2023 10: 42am Allergies, Adverse Reactions, Alerts Allergen Type Severity Reaction Last Updated Verified Status simvastatin Adverse Reaction Moderate Decembe r 2022 9:13am Yes Active Sulfa (Sulfonamide Antibiotics) Adverse Reaction Unknown April 15, 2023 9:13am Yes Active Social History Smoking Status Status Start Date End Date Date of Observa tion Never smoked tobacco (finding) April 15, 2023 8:26am Observation Status Observation Response Date of Response Alcohol Use No April 15 023 9:26am Substance Use No April 28 11:43am Substance Use Treatment No April 15, 2023 9:26am substance use type does not use March 9:26am Smoking Status Never smoker April 15 9:26am Additional Data Assigned Sex Female Family History Relationship Condition Age at Onset Recorded Date/T jose brother Diabetes mellitus Unknown father Uses contact lenses Unknown mother Diabetes mellitus Unknown sister Diabetes mellitus Unknown Problems Active Problems Medical [...] bilateral Resolved Acute maxillary sinusitis Resolv ed Cough Resolved Post concussion syndrome Resolve d Acute UTI Resolved Impacted cerumen of left ear Res olved Laceration of finger of left hand Resolved Medications Medication Status Dose Units Route Directions Qty Days St art Date End Date Instructions Atorvastatin Active 40 MG PO BEDTIME Jun 1:00am Metformin Disconti nued 500 MG PO EVERY MORNING June 23, 2016 1:00am September 02, 2016 1:40pm Omeprazole Active 40 MG PO EVERY MORNING June 23, 2016 1:00am Aspirin Disconti nued 81 MG PO BEDTIME June 23, 2016 1:00am September 02, 2016 1:40pm Calcium Carbonate (Calcium 500) 500 mg calcium (1,250 mg) Tablet Active 500 MG PO TWICE A DAY June 23, 2016 1:00am Metformin Active 1000 MG PO TWICE A DAY [facility] 2016 1:00am Ibuprofen (Motrin Ib) 200 mg Tablet Disconti nued 600 MG PO THREE TIMES A DAY June 23, 2016 1:00am [facility] er 2022 9:14am Lisinopril Disconti nued 40 MG PO EVERY MORNING June 23, 2016 1:00am November 01, 2017 7:00am Multivitamin Disconti nued 1 TAB-CA P PO EVERY MORNING June 23, 2016 1:00am Novemb er 2018 12:11p m Atenolol Disconti nued 50 MG PO EVERY MORNING June 23, 2016 1:00am Novemb er 2018 12:12p m Magnesium Disconti nued 400 MG PO EVERY EVENING June 23, 2016 1:00am Novemb er 2018 12:11p m Nitrofurantoi n Monohyd/M-Cry st (Macrobid) 100 mg Capsule Disconti nued 1 CAP PO Q12H June 23, 2016 1:00am November 01, 2017 6:59am Cephalexin Disconti nued 500 MG PO TWICE A DAY October 03, 2017 12:00am November 01, 2017 6:59am Metoprolol Succinate Active November 01, 2017 12:00am Lisinopril Active TABLET Novemb e r 2018 1:00am Prednisone Disconti nued 10 MG PO DAILY 5 r 2018 1:00am Novemb er 2018 1:08am Fluticasone Propionate Disconti nued 1 SPR NA Q12H 9.9 be r 2018 1:00am Decemb er 2022 9:14am administer into each nostril Guaifenesin Disconti nued 400 MG PO .q8hr 15 r 2018 1:00am Novemb er 2018 1:08am Benzonatate Disconti nued 100 MG PO every day at bedtime 2018 1:00am Januar y 2020 11:15a m Gabapentin Active UNK UNK [facility] e r 2022 1:00am Benzonatate Active 100 MG PO THREE TI MES A DAY 30 e r 2022 1:00am Immunizations Immunization Event Date Not Given Reason Dose Number Geric[employer] Aide Lot Number Vaccine Information Statement (VIS) Detail Tdap April 28, 2020 [id number] Medical Equipment Device Date Implanted Device Details LENS [id number] 19.5 June 29, 2016 LENS [id number] 19.5 September 07, 2016 Relevant Diagnostic Tests and/or Laboratory Data Laboratory Results Test Date/Time Result Interpretation Reference Range Result Comment Performing Site White Blood Count November 27, 2023 11:03am 7.45 10*3/mL 4.8-10.8 [facility] [id number] [address] [address] Red Blood Count November 27, 2023 11:03am 3.85 mol/mL decreased 4.20-5.40 [facility] [id number] [address] [address] Hemoglobin November 27, 2023 11:03am 11.3 g/dL decreased 12.0-16.0 [facility] [id number] [address] [address] Hematocrit November 27, 2023 11:03am 35.6 % decreased 37-47 [facility] [id number] [address] [address] Mean Corpuscular Volume November 27, 2023 11:03am 92.5 fL 81.0-99.0 [facility] [id number] [address] [address] Mean Corpuscular Hemoglobin November 27, 2023 11:03am 29.4 pg 27-31 [facility] [id number] [address] [address] Mean Corpuscular Hemoglobin Concent November 27, 2023 11:03am 31.7 g/dL decreased 33-37 [facility] [id number] [address] [address] Red Cell Distribution Width November 27, 2023 11:03am 13.0 % 11.5-14.5 [facility] [id number] [address] [address] Platelet Count November 27, 2023 11:03am 256 10*3/mL 140-440 [facility] [id number] [address] [address] Mean Platelet Volume November 27, 2023 11:03am 9.4 fL 7.4-10.4 [facility] [id number] [address] [address] Neutrophils (%) (Auto) November 27, 2023 11:03am 62.1 % 40.0-72.0 [facility] [id number] [address] [address] Lymphocytes (%) (Auto) November 27, 2023 11:03am 27.9 % 17-45 [facility] [id number] [address] [address] Monocytes (%) (Auto) November 27, 2023 11:03am 8.3 % 3-11 MA[facility] [id number] [address] [address] Eosinophils (%) (Auto) November 27, 2023 11:03am 1.1 % 0-3 MA[facility] LAB [id number] [place] [address]078 Basophils (%) (Auto) November 27, 2023 11:03am 0.3 % 0-1 [facility] LAB [id number] [place] [address] Immature Granulocyte % (Auto) November 27, 2023 11:03am 0.3 % 0-1 [facility] [id number] [place] [address]078 Neutrophils # (Auto) November 27, 2023 11:03am 4.63 10*3/mL 1.4-6.5 [facility] [id number] [place] [address]078 Lymphocytes # (Auto) November 27, 2023 11:03am 2.08 10*3/mL 1.2-3.4 MA[facility] LAB [id number] [place] [address] Monocytes # (Auto) November 27, 2023 11:03am 0.62 10*3/mL 0.0-0.8 MA[facility] [id number] [place] [address]078 Eosinophils # (Auto) November 27, 2023 11:03am 0.08 10*3/mL 0.0-0.7 [facility] [id number] [place] [address] Basophils # (Auto) November 27, 2023 11:03am 0.02 10*3/mL 0.0-0.1 [facility] [id number] [place] [address] Absolute Immature Granulocyte (auto November 27, 2023 11:03am 0.0 0-1 [facility] [id number] [place] [address] Differential Method November 27, 2023 11:03am Automated MA[facility] [id number] [place] [address] Sodium Level November 27, 2023 11:03am 137 mmol/L 137-145 [facility] [id number] [address] [address] Potassium Level November 27, 2023 11:03am 4.2 mmol/L 3.6-5.0 [facility] [id number] [address] [address] Chloride Level November 27, 2023 11:03am 103 mmol/L 98-107 [facility] [id number] [address] [address] Carbon Dioxide Level November 27, 2023 11:03am 26 mmol/L 22-30 [facility] [id number] [address] [address] Anion Gap November 27, 2023 11:03am 8 7-16 MA[facility] LAB [id number] [address] [address] Blood Urea Nitrogen November 27, 2023 11:03am 24 mg/dL increased 7-17 MAIN LAB [id number] [address] [address] Creatinine November 27, 2023 11:03am 1.00 mg/dL 0.52-1.04 MAIN LAB [id number] [address] [address] Glomerular Filtration Rate Calc November 27, 2023 11:03am 58 mL/min decreased >60.0 MA[facility] LAB [id number] [address] [address] Glucose Level November 27, 2023 11:03am 102 mg/dL increased 70-100 MAIN LAB [id number] [address] [address] Calcium Level November 27, 2023 11:03am 9.2 mg/dL 8.4-10.2 [facility] [id number] [address] [address] Calcium Adjusted for Albumin November 27, 2023 11:03am 9.5 mg/dL 8.4-10.2 [facility] [id number] [address] [address] Albumin November 27, 2023 11:03am 3.9 g/dL 3.5-5.0 MAIN LAB [id number] [address] [address] Total Protein November 27, 2023 11:03am 6.5 g/dL 6.3-8.2 MA[facility] LAB [id number] [address] [address] Alkaline Phosphatase November 27, 2023 11:03am 59 U/L 38-126 MAIN LAB [id number] [address] [address] Alanine Aminotransferase (ALT/SGPT) November 27, 2023 11:03am 10 U/L <35 MAIN LAB [id number] [address] [address] Aspartate Amino Transf (AST/SGOT) November 27, 2023 11:03am 19 U/L 14-36 MAIN LAB [id number] [address] [address] Total Bilirubin November 27, 2023 11:03am 0.5 mg/dL 0.2-1.3 MAIN LAB [id number] [address] [address] Thyroid Stimulating Hormone (TSH) November 27, 2023 11:03am 0.571 mIU/L 0.47-4.68 The results of this assay can be falsely decreased in patients who consume Biotin. MAIN LAB [id number] [address] [address] Advance Directives Advance Directive Response Recorded Date/ Time Does patient have an Advance Directive? Yes December 01, 2021 10:07am Does patient have a COLST form? No December 01, 2021 10:07am Insurance Providers Guarantor BRYCE HILL Address [address] [facility] [address] [facility] [address] Contact Info. Home Phone: Payer Policy Id Coverage Id Subscriber's Name Subscriber Id Effective Date Expiration Date BLUE CROSS OUT OF STATE [id number] BRYCE HILL [id number] MEDICARE OUT (DO NOT USE) [id number] BRYCE HILL [id number] 2011 MEDICARE PART A AND B COVERAGE [id number] BRYCE HILL [id number] SELF PAY Self N/A [facility] [id number] BRYCE HILL [id number] [facility] (DO NOT USE) [id number] BRYCE HILL [id number] 2016 Encounters Encounter Location(s) Arrival/Admit Date Discharge/Depart Date Provider(s) Departed Clinical -Laboratory November 27, 2023 10:42am November 27, 2023 10:43am [facility] Barbara Conway
--- OUTSIDE RECORDS SUMMARY | 2024-03-18 22:07 | XMS_ITS | Continuity of Care Document ---
as female gender (finding) Author Organization [facility] Address [address], [place] [address] Phone Support Name Relationship Address Phone JOSÉ RUIZ Child-Son/Daughter Unknown MAGGY RUIZ Child-Son/Daughter Unknown [phone] Barbara [place] [address] Care Teams Patient Care Team Team Status: Active Member Role Status Dates Barbara Conway Primary Care Provider Active Visit Care Team Team Status: Inactive Member Role Status Dates Barbara Conway Primary Care Provide r, Attending Provider Active Start: December 12, 2023 End: December 12, 2023 Patient Care Team Team Status: Inactive Member Role Status Dates Barbara Conway Primary Care Provide r, Attending Provider Active Start: December 19, 2023 End: December 19, 2023 Chief Complaint and Reason for Visit Chief Complaint Admit Date Lab December 19, 2023 10 :19am Allergies, Adverse Reactions, Alerts Allergen Type Severity [...] 9:26am Smoking Status Never smoker April 15 023 9:26am Additional Data Assigned Sex Female Family [...] Active 1000 MG PO TWICE A DAY [facility] 2016 1:00am Ibuprofen (Motrin Ib) 200 mg Tablet Disconti nued 600 MG PO THREE TIMES A DAY June 23, 2016 1:00am [facility] er 2022 9:14am Lisinopril Disconti nued 40 [...] TWICE A DAY 14 October 03, 2017 12:00am November 01, 2017 6:59am Metoprolol Succinate Active November 01, 2017 12:00am Lisinopril Active TABLET Novemb e r 2018 1:00am Prednisone Disconti nued 10 MG PO DAILY 5 5 Novembe r 2018 1:00am Novemb er 2018 1:08am Fluticasone Propionate Disconti nued 1 SPR NA Q12H 9.9 Novembe r 2018 1:00am Decemb er 2022 9:14am administer into each nostril Guaifenesin Disconti nued 400 MG PO .q8hr 15 Novembe r 2018 1:00am Novemb er 2018 1:08am Benzonatate Disconti nued 100 MG PO every day at bedtime 14 r 2018 1:00am Januar y 2020 11:15a m Gabapentin Active UNK UNK Dece e r 2022 1:00am Benzonatate Active 100 MG PO THREE TI MES A DAY 30 Decee r 2022 1:00am Immunizations Immunization Event Date Not Given Reason Dose Number Tank [employer] Helper Lot Number Vaccine Information Statement (VIS) Detail Tdap April 28, 2020 [id number] Medical Equipment Device Date Implanted Device Details LENS [id number] 19.5 June 29, 2016 LENS [id number] 19.5 September 07, 2016 Relevant Diagnostic Tests and/or Laboratory Data Laboratory Results Test Date/Time Result Interpretation Reference Range Result Comment Performing Site Stool Occult Blood December 12, 2023 12:06am Negative [facility]IN LAB [id number] [address] [address] Stool Occult Blood Sample #2 December 12, 2023 12:06am Negative [facility]IN [facility] [id number] [address] [address] Stool Occult Blood Sample #3 December 12, 2023 12:06am Negative [facility]IN LAB [id number] [address] [address] Percent Iron Saturation December 19, 2023 10:42am 29 % MAIN LAB [id number] [address] [address] Iron Level December 19, 2023 10:42am 90 ug/dL 37-170 MAIN LAB [id number] [address] [address] Total Iron Binding Capacity December 19, 2023 10:42am 308 ug/dL 265-497 MAIN LAB [id number] [address] [address] Ferritin December 19, 2023 10:42am 26.80 ng/mL 10-291 The results of this assay can be falsely decreased in patients who consume Biotin. MAIN LAB [id number] [address] [address] Advance Directives Advance Directive Response Recorded Date/ Time Does patient have an Advance Directive? Yes December 01, 2021 10:07am Does patient have a COLST form? No December 01, 2021 10:07am Insurance Providers Guarantor BRYCE HILL Address 4 [facility] [address] [place] [address] Contact Info. Home Phone: Payer Policy Id Coverage Id Subscriber's Name Subscriber Id Effective Date Expiration Date BLUE CROSS OUT OF [facility] [id number] BRYCE HILL [id number] MEDICARE OUT (DO NOT USE) [id number] BRYCE HILL [id number] 2011 MEDICARE PART A AND B COVERAGE [id number] BRYCE HILL [id number] SELF PAY Self N/A [facility] [id number] BRYCE HILL [id number] [facility] (DO NOT USE) [id number] BRYCE HILL [id number] 2016 Encounters Encounter Location(s) Arrival/Admit Date Discharge/Depart Date Provider(s) Departed Referred [facility]-Referred Lab December 12, 2023 11:35am December 12, 2023 11:36am FOSTER Conway Departed Clinical [facility]-Laboratory December 19, 2023 10:19am December 19, 2023 10:20am FOSTER Conway
--- OUTSIDE RECORDS SUMMARY | 2024-03-18 22:07 | XMS_ITS | Continuity of Care Document ---
Author Organization [facility] Address [address] [place] [address] Phone Care Team Providers Care Commercial Loan Specialist Name Role Phone Bright Partida Attending Provider Iraida Crews Primary Care Provider PCP, of Choice Admit Provider Unavailable PCP, of Choice Attending Provider Unavailable Barbara Conway Admit Provider Unavailable Barbara Conway Attending Provider Unavailable Barbara Conway Primary Care Provider UnavailRussel Gagnon Attending Provider [phone] Duglas Nevarez Attending Provider [phone] PCP, Not Given Primary Care Provider Abisai Gambino Attending Provider Out of Town, Provider Primary Care Provider Unav milenaable Yen Diallo Attending Provider [phone] Kristina Borden Attending Provider Nyasia Collins [...] Blood Count 6.39 1000/mm3 4.8-10.8 MAIN LAB, [address] [place] [address] 20451 Red Blood Count 4.01 M/mm3 4.20-5.40 DUSTIN N LAB, [address] [place] [address] 88424 Hemoglobin 11.3 g/dL 12.0-16.0 MAIN LAB, [address] [place] [address] 17538 Hematocrit 35.9 % 37-47 MAIN LAB, [address] [place] [address] Mean Corpuscular Volume 89.5 fL 81.0-99.0 MAIN LAB, [address] [place] [address] 77971 Mean Corpuscular Hemoglobin 28.2 pg 27-31 MAIN LAB, [address] [place] [address] 11613 Mean Corpuscular Hemoglobin Concent 31.5 g/dL 33-37 MAIN LAB, [address] [place] [address] 27695 Red Cell Distribution Width 14.1 % 11.5-14.5 MAIN LAB, [address] [place] [address] 37013 Platelet Count 259 1000/mm3 140-440 MAIN LAB, [address] [place] [address] 82871 Mean Platelet Volume 9.9 fL 7.4-10.4 MAIN LAB, [address] [place] [address] 31296 Neutrophils (%) (Auto) 60.3 % 40.0-72.0 MAIN LAB, [address] [place] [address] 27492 Lymphocytes (%) (Auto) 29.4 % 17-45 MAIN LAB, [address] [place] [address] 03336 Monocytes (%) (Auto) 7.7 % 3-11 MAIN LAB, [address] [place] [address] 37790 Eosinophils (%) (Auto) 2.3 % 0-3 MAIN LAB, [address] [place] [address] 79739 Basophils (%) (Auto) 0.3 % 0-1 MAIN LAB, [address] [place] [address] 48380 Neutrophils # (Auto) 3.85 1000/mm3 1.4-6.5 MAIN LAB, [address] [place] [address] Lymphocytes # (Auto) 1.88 1000/mm3 1.2-3.4 MAIN LAB, [address] [place] [address] Monocytes # (Auto) 0.49 1000/mm3 0.0-0.8 MAIN LAB, [address] [place] [address] Eosinophils # (Auto) 0.15 1000/mm3 0.0-0.7 MAIN LAB, [address] [place] [address] Basophils # (Auto) 0.02 1000/mm3 0.0-0.1 MAIN LAB, [address] [place] [address] Differential Method Automated MAIN LAB, [address] [place] [address] Prothrombin Time 15.1 SECONDS 9.6-11.2 Prothrombin Time [...] Level 142 mmol/L 137-145 MAIN LAB , [address] [place] [address] Potassium Level 4.1 mmol/L 3.6-5.0 MAIN LAB, [address] [place] [address] Chloride Level 105 mmol/L 98-107 MAIN L AB, [address] [place] [address] Carbon Dioxide Level 28 mmol/L 22-30 MAIN LAB, [address] [place] [address] Anion Gap 9 7-16 MAIN LAB, [address] [place] [address] Blood Urea Nitrogen 20 mg/dL 7-17 MAIN LAB, [address] [place] [address] Creatinine 0.70 mg/dL 0.52-1.04 MAIN LAB , [address] [facility] [address] Glomerular Filtration Rate Calc > 60 mL/min >60.0 MAIN LAB, [address] [place] [address] 24621 Glucose Level 138 mg/dL 70-100 MAIN LAB , [address] [place] [address] 17808 Calcium Level 9.7 mg/dL 8.4-10.2 MAIN LA B, [address] [place] [address] 00977 Microbiology Results Procedure Source Result Collection Date/Time Result Date/Time Result Comment Performing Site Urine Culture Ur,Clean Catch Escherichia Coli October 05, 2017 8:42am MAIN LAB, [address] [place] [address] 31327 Diagnostic Imaging Reports Report Dictated Date/Time Dictated By Status Radiology Report July 15, 2011 12:05am Edmar Antony MD completed [facility] RADIOLOGY REPORT PATIENT NAME: BRYCE [...] 10, 2012 1:43pm Treva Servin MD completed [facility] RADIOLOGY REPORT PATIENT NAME: BRYCE [...] 29, 2016 9:32am Abisai kraft MD completed [facility] Operative Report PATIENT NAME: BRYCE HILL [id number] DATE OF : 1945 ATTENDING PHYSICIAN: Abisai Rojas MD PRIMARY CARE PHYS: [place] DICTATING PHYSICIAN: Abisai Rojas MD REPORT STATUS: Signed DATE OF SERVICE: CC: Job Number: [id number] Date of Service: 06/29/2016 PREOPERATIVE DIAGNOSIS: Cataract, [...] An Hugh [id number] 19.5 diopter lens serial #[id number] was placed in the capsular bag using [...] was assessed, and found suitable for discharge. [id number] dd: 06/29/2016 09:32:46 dt: 06/29/2016 09:44:06 <Electronically signed by Abisai Rojas MD> 06/29/16 1642 Operative Report September 07, 2016 7:53am Abisai Rojas MD completed [facility] Operative Report PATIENT NAME: BRYCE HILL [id number] DATE OF : 1945 ATTENDING PHYSICIAN: Abisai Rojas MD PRIMARY CARE PHYS: FOSTER Lopez DICTATING PHYSICIAN: Abisai Rojas MD REPORT STATUS: Signed CC: Job Number: [id number] Date of Service: 09/07/2016 PREOPERATIVE DIAGNOSIS: Cataract, [...] An Hugh [id number] 19.5 diopter lens (serial #[id number]) was placed in the capsular bag using [...] was assessed, and found suitable for discharge. [id number] dd: 09/07/2016 07:53:49 dt: 09/07/2016 09:20:39 <Electronically signed by Abisai Rojas MD> 09/07/16 1150 Radiology Report November 01, 2017 8:39am Edmar Antony MD completed [facility] CAT SCAN REPORT PATIENT NAME: [...] disturbance yesterday (Described seeing waves). Seen at [facility] on 10/28/17. TECHNIQUE: Unenhanced 1 [...] is suspected, but an aneurysm from the [place] of [place] or a small subdural hematoma [...] 01, 2017 8:04am Devaughn sarmiento MD completed [facility] EKG Report PATIENT NAME: BRYCE [...] 01, 2017 10:47am Lorraine Chambers MD completed [facility] MRI REPORT PATIENT NAME: BRYCE [...] 22, 2018 10:10am Treva Servin MD completed [facility] RADIOLOGY REPORT PATIENT NAME: BRYCE [...] 1011 Radiology Report April 09, 2018 2:00pm Lroraine Chambers MD completed [facility] MRI REPORT PATIENT NAME: BRYCE [...] have a copy on file here at [facility]? Yes June 29, 2016 8:06am Pt has a Living Will? Yes June 29, 2016 8:06am Do we have a copy on file here at [facility]? Yes June 29, 2016 8:06am Pt has a Power of Film Painter? Yes 2016 8:06am Do we have a copy on file here at [facility]? Yes June 29, [...] Date Provider(s) Departed Physician/Provi david Office Visit [facility]-CONV Misc Comp Pain location Conversion Medent Departed [facility] December 28, 2007 12:00am December 28, 2007 Bright Partida DPM Departed [facility] May 28, 2009 2:00pm May 28, 2009 11:59pm Pcp No [facility] 13, 2009 1:55pm August 27, 2009 1:33pm Pcp No Departed Clinical [facility]-Chronic Disease November 10, 2009 9:21am November 10, 2009 11:59pm Barbara HUTCHISON Departed Clinical [facility]-Chronic Disease December 01, 2009 9:20am December 01, 2009 11:59pm Barbara HUTCHISON Departed Clinical [facility]-Chronic [facility] December 08, 2009 10:25am December 08, 2009 11:59pm Barbara HUTCHISON Departed Clinical [facility]-Chronic Disease December 15, 2009 9:45am December 15, 2009 11:59pm Barbara HUTCHISON Departed Clinical [facility]-Chronic [facility] January 08, 2010 2:20pm January 08, 2010 11:59pm Barbara HUTCHISON Registered Clinical [facility] July 14, 2011 10:14am Barbara HUTCHISON Registered Clinical [facility] January 10, 2012 12:23pm Bright Partida DPM Discharged Recurring [facility]-Physical Therapy August 14, 2012 1:15pm October 18, 2012 6:58am Russel Otto MD Registered Referred [facility] January 23, 2013 11:51am Geri Ardon MD Discharged Recurring [facility]-Physical Therapy January 30, 2013 12:45pm April 30, 2013 10:50am Russel Otto MD Registered Clinical [facility]-Laboratory January 30, 2013 3:54pm Russel Otto MD Departed Physician/Provi david Office Visit [facility] Primary [facility] Emergency Department December 24, 2013 12:00am December 24, 2013 Conversion Medent Departed Physician/Provi david Office Visit [facility]-Lifestyle Medicine January 11, 2016 12:00am January 11, [address] Departed Physician/Provi david Office Visit [facility]-Lifestyle Medicine 2016 12:00am 2016 Nidia Batres , RN Registered Clinical [facility]-Life Style [facility] 2016 8:00am Barbara HUTCHISON Departed Physician/Provi david Office Visit [facility]-Lif[facility] Medicine February 13, 2016 12:00am February 13, 2016 Conversion Medent Departed Physician/Provi david Office Visit [facility]-Lifestyle Medicine February 20, 2016 12:00am February 20, 2016 Nidia Batres RN Registered Clinical [facility] [place] February 20, 2016 8:00am Barbara TIPTONP Departed Physician/Provi david Office Visit [facility] February 24, 2016 12:00am February 24, 2016 VELMA Ramey Departed Physician/Provi david Office Visit [facility]-Lifestyle Medicine February 27, 2016 12:00am February 27, 2016 Nidia Batres RN Registered Clinical [facility] [place] February 27, 2016 8:00am Barbara TIPTONP Departed Physician/Provi david Office Visit [facility]-Lifestyle Medicine March 05, 2016 12:00am March 05, 2016 Nidia Batres RN Registered Clinical [facility] [place] March 05, 2016 8:00am Barbara TIPTONP Departed Physician/Provi david Office Visit [facility] n Ophthalmology May 24, 2016 12:00am May 24, 2016 Conversion Medent Registered Clinical [facility] n Ophthalmology May 24, 2016 2:52pm Abisai Rojas MD Departed Surgical Day Care [facility]-Surgical Services June 29, 2016 8:00am June 29, 2016 9:49am Abisai Rojas MD Departed Physician/Provi david Office Visit [facility] n Ophthalmology June 30, 2016 12:00am June 30, 2016 Conversion Medent Departed Physician/Provi david Office Visit [facility] n Ophthalmology June 30, 2016 8:13am June 30, 2016 8:14am Abisai Rojas MD Departed Physician/Provi david Office Visit [facility] n Ophthalmology July 07, 2016 12:00am July 07, 2016 Conversion Medent Departed Physician/Provi david Office Visit [facility] n Ophthalmology July 07, 2016 9:12am July 07, 2016 9:13am Abisai Rojas MD Departed Physician/Provi david Office Visit [facility] n Ophthalmology July 14, 2016 12:00am July 14, 2016 Conversion Medent Departed Physician/Provi david Office Visit [facility] n Ophthalmology July 21, 2016 12:00am July 21, 2016 Conversion Medent Departed Surgical Day Care [facility]Surgical [facility] September 07, 2016 6:28am September 07, 2016 8:18am Abisai Rojas MD Departed Physician/Provi david Office Visit [facility] Ophthalmology September 08, 2016 12:00am September 08, 2016 Conversion Medent Departed Physician/Provi david Office Visit [facility] Ophthalmology September 08, 2016 8:05am September 08, 2016 8:06am Abiasi Rojas MD Departed Physician/Provi david Office Visit [facility] Ophthalmology September 15, 2016 12:00am September 15, 2016 Conversion Medent Departed Physician/Provi david Office Visit [facility] Ophthalmology October 13, 2016 12:00am October 13, 2016 Conversion Medent Departed Physician/Provi david Office Visit [facility] Ophthalmology October 13, 2016 8:59am October 13, 2016 9:00am Abisai Rojas MD Departed Emergency [facility] Urgent [facility] October 03, 2017 10:36am October 03, 2017 11:45am null Departed Physician/Provi david Office Visit [facility] Urgent [facility] October 03, 2017 10:42am October 03, 2017 10:43am VELMA Ramey Departed Emergency [facility]-Emergency Department November 01, 2017 6:46am November 01, 2017 11:28am null Departed Physician/Provi david Office Visit [facility] Dermatology December 12, 2017 12:00am December 12, 2017 Conversion Medent Departed Referred [facility]-Pathology December 12, 2017 7:45am December 12, 2017 7:46am Kristina Borden MD Departed Physician/Provi david Office Visit [facility] Dermatology December 12, 2017 11:08am December 12, 2017 11:09am Kristina Borden MD Departed Physician/Provi david Office Visit [facility] Dermatology February 08, 2018 12:00am February 08, 2018 Conversion Medent Departed Physician/Provi david Office Visit [facility] Dermatology February 08, 2018 9:41am February 08, 2018 9:42am Kristina Borden MD Discharged Recurring [facility] February 20, 2018 9:30am March 12, 2018 11:29am Barbara HUTCHISON Departed Emergency [facility] February 22, 2018 8:55am February 22, 2018 10:19am null Departed Physician/Provi david Office Visit [facility] February 22, 2018 8:59am February 22, 2018 9:00am Nyasia Collins NP Departed Physician/Provi davdi Office Visit [facility] Orthopedic&Rehab February 27, 2018 12:00am February 27, 2018 DEEPIKA Fernandez Departed Physician/Provi david Office Visit [facility] Orthopedics February 27, 2018 9:24am February 27, 2018 9:25am DEEPIKA Fernandez Departed Clinical [facility] Orthopedic February 27, 2018 10:03am February 27, 2018 10:04am DEEPIKA Fernandez Departed Physician/Provi david Office Visit [facility] Orthopedic&Rehab March 13, 2018 12:00am March 13, 2018 DEEPIKA Fernandez Departed Physician/Provi david Office Visit [facility] Orthopedics March 13, 2018 9:05am March 13, 2018 9:06am DEEPIKA Fernandez Discharged Recurring [facility] March 21, 2018 10:30am April 25, 2018 11:29am DEEPIKA Fernandez Departed Physician/Provi david Office Visit [facility] Orthopedic&Rehab March 26, 2018 12:00am March 26, 2018 DEEPIKA Fernandez Departed Physician/Provi david Office Visit [facility] Orthopedics March 26, 2018 8:52am March 26, 2018 8:53am DEEPIKA Fernandez Departed Clinical [facility] April 09, 2018 12:08pm April 09, 2018 12:09pm PASusie Fernandez Departed Physician/Provi david Office Visit [facility] Orthopedic&Rehab April 11, 2018 12:00am April 11, 2018 DEEPIKA Fernandez Departed Physician/Provi david Office Visit [facility] Orthopedic&Rehab April 13, 2018 12:00am April 13, 2018 DEEPIKA Fernandez Departed Physician/Provi david Office Visit [facility] Orthopedics April 13, 2018 1:53pm April 13, 2018 1:54pm DEEPIKA Fernandez Departed Physician/Provi david Office Visit [facility] Orthopedic&Rehab May 10, 2018 12:00am May 10, 2018 Conversion Medent Departed Physician/Provi david Office Visit [facility] Orthopedics May 10, 2018 9:13am May 10, 2018 9:14am Juvencio Fong DO Departed Physician/Provi david Office Visit [facility] Dermatology August 20, 2018 12:00am August 20, 2018 Conversion Medent Departed Physician/Provi david Office Visit [facility] Orthopedic&Rehab August 21, 2018 12:00am August 21, 2018 Conversion Medent Departed Physician/Provi david Office Visit [facility] Orthopedics August 21, 2018 8:51am August 21, 2018 8:52am Juvencio Fong DO Departed Emergency [facility] March 10, 2019 11:07am March 10, 2019 12:00pm null Registered Physician/Provi david Office Visit [facility] March 10, 2019 11:09am PAC Abbey Reynolds Assessments No Assessments Information [...] Providers Guarantor BRYCE Barnett LIZ Address [address] [facility] [address] [facility] [address] Contact Info. Home Phone: Payer Policy Id Coverage Id Subscriber's Name Subscriber Id Effective Date Expiration Date BLUE CROSS OUT OF STATE [id number] BRYCE HILL [id number] MEDICARE OUT (DO NOT USE) [id number] BRYCE HILL [id number] 2011 MEDICARE PART A AND B COVERAGE [id number] BRYCE HILL [id number] SELF PAY Self N/A [facility] CARE [id number] BRYCE HILL [id number] [facility] (DO NOT USE) [id number] BRYCE HILL [id number] 2016 Plan of Treatment Future Tests Future scheduled test information is unavailable Pending Tests Pending diagnostic test information is unavailable Future Visits Future appointment information is unavailable Referrals to Other Providers Reason for Referral Referral Start Date Provider Provider Contact Information Provider Address Barbara HUTCHISON [place] Juan Haskins MD Work Phone: [facility] Orthopaedics [address] [facility] [address] [facility] [address] Barbara HUTCHISON [place] Future Procedures Future procedure information is unavailable Future Medications Future medication information is unavailable Patient Instructions Postconcussion Syndrome (DC) Social History Smoking Status Status Date of Observation Never smoked tobacco (finding) March 10, 2019 11:34am Observation Status Observation Response Date of Response Alcohol Use No March 10 019 11:34am Substance/Street Drug Use No Novemb er [...] 3:44pm BMI (Body Mass Index) 35.2 kg/m2 Novem er 2015 3:44pm Height 64 [in_i] May 24, 2 017 3:13pm Weight 90.71 kg May 24, 2 017 3:13pm Heart Rate 73 /min 60-100 May 24, 2 017 3:13pm Respiratory rate 16 /min 12-24 April 3:13pm BP Systolic 124 mm[Hg] 100-140 May [...] 07, 2016 8:14am Respiratory rate 18 /min -September 07, 2 017 8:14am Oxygen saturation by [...] -November 01, 2017 6:50am Oxygen saturation by Pulse [...] 10:30am BMI (Body Mass Index) 33.5 kg/m2 Octobe r 2017 10:30am Weight 88.45 kg February [...] 9:55am BMI (Body Mass Index) 33.5 kg/m2 Novem er 2017 9:55am Height 64 [in_i] March 13, 2018 9:16am Weight 88.45 kg March 13, 2018 9:16am Heart Rate 73 /min 60-100 March 13, 2018 9:16am Oxygen saturation by Pulse oximetry 97 % 95-100 March 13, 2018 9:16am BP Systolic 136 mm[Hg] 100-140 March 13, 2018 9:16am BP Diastolic 70 mm[Hg] 50-85 March 13, 2018 9:16am BMI (Body Mass Index) 33.5 kg/m2 [facility] er 2017 9:16am Height 64 [in_i] March [...] 8:53am BMI (Body Mass Index) 33.5 kg/m2 [facility] er 2017 8:53am Height 65 [in_i] April 13, 2018 1:55pm Weight 86.18 kg April 13, 2018 1:55pm Heart Rate 74 /min 60-100 April 13, 2018 1:55pm Oxygen saturation by Pulse oximetry 97 % 95-100 April 13, 2018 1:55pm BP Systolic 138 mm[Hg] 100-140 April 13, 2018 1:55pm BP Diastolic 84 mm[Hg] 50-85 April 13, 2018 1:55pm BMI (Body Mass Index) 31.6 kg/m2 [facility] er 2017 1:55pm Height 65 [in_i] May 10, [...] 11:13am BMI (Body Mass Index) 32.1 kg/m2 [facility] 2018 11:13am
--- OUTSIDE RECORDS SUMMARY | 2024-03-18 22:07 | XMS_ITS | Continuity of Care Document ---
Author Organization [facility] Address [address] [place] [address] Phone Care Team Providers Care Bankruptcy Attorney Name Role Phone Barbara Conway Primary Care Provider Barbara Conway Attending Provider Duglas Mccullough Attending Provider Chief Complaint and Reason for Visit Chief Complaint Lab Lab Back & Balance Lab Allergies, Adverse Reactions, Alerts Allergen Type [...] 1000 MG PO TWICE A DAY [facility]2016 1:00am Ibuprofen (Motrin Ib) 200 mg Tablet Active 600 MG PO THREE TIMES A DAY June 23, 2016 1:00am Lisinopril Disconti nued 40 MG PO EVERY [...] MG PO DAILY 5 5 r 2018 1:00am Novemb er 2018 1:08am Fluticasone Propionate Active 1 SPR NA Q12H 9.9 r 2018 1:00am administer into each nostril Guaifenesin Disconti nued 400 MG PO .q8hr 15 5 r 2018 1:00am Novemb er 2018 1:08am Benzonatate Disconti nued 100 MG PO every day at bedtime 14 r 2018 1:00am Januar y 2020 11:15a m Immunizations Immunization Event Date Not Given Reason Dose Number Pulp And Paper Tester Lot Number Vaccine Information Statement (VIS) Detail Tdap April 28, 2020 [id number] Medical Equipment Device Date Implanted Device Details LENS [id number] 19.5 June 29, 2016 LENS [id number] 19.5 September 07, 2016 Relevant Diagnostic Tests and/or Laboratory Data Laboratory Results Test Date/Time Result Interpretation Reference Range Result Comment Performing Site White Blood Count July 27, 2022 8:31am 6.33 1000/mm3 4.8-10.8 MAIN LAB [id number] [address] [address] Red Blood Count July 27, 2022 8:31am 4.12 M/mm3 4.20-5.40 MAIN LAB [id number] [address] [address] Hemoglobin July 27, 2022 8:31am 12.0 g/dL 12.0-16.0 MAIN LAB [id number] [address] [address] Hematocrit July 27, 2022 8:31am 38.1 % 37-47 MAIN LAB [id number] [address] [address] Mean Corpuscular Volume July 27, 2022 8:31am 92.5 fL 81.0-99.0 MAIN LAB [id number] [address] [address] Mean Corpuscular Hemoglobin July 27, 2022 8:31am 29.1 pg 27-31 MAIN LAB [id number] [address] [address] Mean Corpuscular Hemoglobin Concent July 27, 2022 8:31am 31.5 g/dL 33-37 MAIN LAB [id number] [address] [address] Red Cell Distribution Width July 27, 2022 8:31am 12.8 % 11.5-14.5 MAIN LAB [id number] [address] [address] Platelet Count July 27, 2022 8:31am 261 1000/mm3 140-440 MAIN LAB [id number] [address] [address] Mean Platelet Volume July 27, 2022 8:31am 9.5 fL 7.4-10.4 MAIN LAB [id number] [address] [address] Urine Color August 30, 2021 12:09pm Yellow MAIN LAB [address] [address] Urine Clarity August 30, 2021 12:09pm Clear MAIN LAB [address] [address] Urine pH August 30, 2021 12:09pm 6.0 5.0-8.0 MAIN LAB [address] [address] Urine Specific Hardin August 30, 2021 12:09pm 1.010 1.001-1.03 5 MAIN LAB [address] [address] Urine Protein August 30, 2021 12:09pm Negative mg/dL NEGATIVE MAIN LAB [address] [address] Urine Glucose (UA) August 30, 2021 12:09pm Norm mg/dL NORMAL MAIN LAB [address] [address] Urine Ketones August 30, 2021 12:09pm Neg NEGATIVE MAIN LAB [address] [address] Urine Nitrite August 30, 2021 12:09pm Negative Negative MAIN LAB [facility] [address] [facility] [address] Urine Bilirubin August 30, 2021 12:09pm Neg mg/dL NEGATIVE MAIN LAB [facility] [address] [facility] [address] Urine Urobilinogen August 30, 2021 12:09pm norm mg/dL NORMAL MAIN LAB [address] [address] Urine Leukocyte Esterase August 30, 2021 12:09pm Neg WBC/uL NEGATIVE MAIN LAB [facility] [address] [facility] [address] Urine Blood August 30, 2021 12:09pm Neg DALTON/uL NEGATIVE MAIN LAB [address] [address] Urine Culture Done August 30, 2021 12:09pm No CULTURE NOT INDICATED. MAIN LAB [address] [address] Sodium Level August 23, 2021 8:34am 138 mmol/L 137-145 MAIN LAB [address] [address] Potassium Level August 23, 2021 8:34am 4.9 mmol/L 3.6-5.0 MAIN LAB [address] [address] Chloride Level August 23, 2021 8:34am 103 mmol/L 98-107 MAIN LAB [address] [address] Carbon Dioxide Level August 23, 2021 8:34am 26 mmol/L 22-30 MAIN LAB [address] [address] Anion Gap August 23, 2021 8:34am 9 7-16 MAIN LAB [address] [address] Blood Urea Nitrogen August 23, 2021 8:34am 18 mg/dL 7-17 MAIN LAB [address] [address] Creatinine August 23, 2021 8:34am 1.00 mg/dL 0.52-1.04 MAIN LAB [address] [address] Glomerular Filtration Rate Calc August 23, 2021 8:34am 54 mL/min >60.0 MAIN LAB [address] [address] Glucose Level August 23, 2021 8:34am 89 mg/dL 70-100 MAIN LAB [address] [address] Calcium Level August 23, 2021 8:34am 9.8 mg/dL 8.4-10.2 MAIN LAB [address] [address] Calcium Adjusted for Albumin August 23, 2021 8:34am 9.7 mg/dL 8.4-10.2 MAIN LAB [facility] [address] [facility] [address] Phosphorus Level August 23, 2021 8:34am 3.8 mg/dL 2.5-4.5 MAIN LAB [address] [address] Albumin August 23, 2021 8:34am 4.4 g/dL 3.5-5.0 MAIN LAB [address] [address] Hemoglobin A1c Percent August 23, 2021 8:34am 6.24 % <5.7 <5.7%: Normal5.7%-6.4 %: Prediabetes>=6 .5%: Diagnostic for diabetesGoals for Glycemic Control in Diabetes (ADA 2018)<7.0%: A1c target for non adults with diabetes. More or less stringent glycemic goals may be appropriate for individual patients.<7.5% : A1c target for children and adolescents with type I diabetes. A lower goal is reasonable if it can be achieved without excessive hypoglycemia. MAIN LAB [address] [address] Estimated Average Glucose mg/dL August 23, 2021 8:34am 132 mg/dL MAIN LAB [address] [address] Estimated Average Glucose mg/dL July 27, 2022 8:31am 122 mg/dL MAIN LAB [id number] [address] [address] Cholesterol Level July 27, 2022 8:31am 155 mg/dL 59-199 MAIN LAB [id number] [address] [address] Triglycerides Level July 27, 2022 8:31am 63 mg/dL 0-149 MAIN LAB [id number] [facility] [address] [facility] [address] HDL Cholesterol July 27, 2022 8:31am 69 mg/dL 40-60 The National Cholesterol Education Program (NCEP) has set the following guidelines (reference values) for cholesterol, HDL:Low HDL: <40 mg/dLNormal: 40-60 mg/dLDesirable : >60 mg/dL MAIN LAB [id number] [facility] [address] [facility] [address] LDL Cholesterol July 27, 2022 8:31am 73.4 mg/dL 0-129 MAIN LAB [id number] [facility] [address] [facility] [address] VLDL Cholesterol July 27, 2022 8:31am 12.6 mg/dL 0-32 MAIN LAB [id number] [address] [address] Cholesterol/HDL Ratio July 27, 2022 8:31am 2.24 0-3.9 MAIN LAB [id number] [address] [address] Hemoglobin A1c Percent July 27, 2022 8:31am 5.89 % <5.7 <5.7%: Normal5.7%-6.4 %: Prediabetes>=6 .5%: Diagnostic for diabetesGoals for Glycemic Control in Diabetes (ADA 2018)<7.0%: A1c target for non adults with diabetes. More or less stringent glycemic goals may be appropriate for individual patients.<7.5% : A1c target for children and adolescents with type I diabetes. A lower goal is reasonable if it can be achieved without excessive hypoglycemia. MAIN LAB [id number] [address] [address] Vital Signs Vital Reading Result Reference Range Collection Date/Time BP Systolic 144 mm[Hg] 100-140 December 01 10:53am BP Diastolic 82 mm[Hg] 50-85 December 01 10:53am Advance Directives Advance Directive Response Recorded Date/ Time Does patient have an Advance Directive? Yes December 01, 2021 10:07am Does patient have a COLST form? No December 01, 2021 10:07am Insurance Providers Guarantor BRYCE HILL Address [address] [facility] [address] Contact Info. Home Phone: Payer Policy Id Coverage Id Subscriber's Name Subscriber Id Effective Date Expiration Date BLUE CROSS OUT OF STATE [id number] BRYCE HILL [id number] MEDICARE OUT (DO NOT USE) [id number] BRYCE HILL [id number] 2011 MEDICARE PART A AND B COVERAGE [id number] BRYCE HILL [id number] SELF PAY Self N/A [facility] [id number] BRYCE HILL [id number] [facility] (DO NOT USE) [id number] BRYCE HILL [id number] 2016 Encounters Encounter Location(s) Arrival/Admit Date Discharge /Depart Date Provider(s) Departed Clinical [facility] August 23, 2021 8:29am August 23, 2021 8:30am FOOD CHEMIST Barbara Conway Departed Clinical [facility] August 30, 2021 11:52am August 30, 2021 11:53am FOSTER Conway Discharged Recurring [facility] January 11, 2022 10:45am January 21, 2022 4:15pm VELMA Barnard Departed Clinical [facility] July 27, 2022 8:26am July 27, 2022 8:27am FOOD CHEMIST Barbara Conway Functional Status Observation Response Date Recorded Ambulation Ability Independent June 23 11:22am Living Situation Alone December 01 10:49am
--- OUTSIDE RECORDS SUMMARY | 2024-03-18 22:07 | XMS_ITS | Continuity of Care Document ---
Author Organization [facility] Address [address] [place] [address] Phone Care Team Providers Care Senior Software Project Manager Name Role Phone Out of Town, Provider Primary Care Provider Unav ailable Russel Otto Attending Provider [phone] Barbara Conway Primary Care Provider [phone] Barbara Conway Attending Provider Allergies, Adverse Reactions, [...] November 01, 2017 5:58am Lisinopril Active TABLET [facility] e r 2018 11:12am Prednisone Disconti nued 10 MG PO DAILY 5 5 N[facility]mbe r 2018 [facility] Fluticasone Propionate Active 1 SPR NA Q12H 9.9 [facility] 11:49am administer into each nostril Guaifenesin Disconti nued 400 MG PO .q8hr 15 5 [facility] 12:08a m Benzonatate Disconti nued 100 MG PO every day at bedtime 14 [facility] 11:51am Januar y 2020 10:15a [...] 10, 2018 Active History of cataract extraction March 16th, 2017 Active 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 27, 2018 A ctive Laceration of finger of left hand Active [...] be achieved without excessive hypoglycemia. MAIN LAB, [address] [place] [address] Estimated Average Glucose mg/dL March 18, 2020 10:20am 128 mg/dL MAIN LAB, [address] [address] Coronavirus 2019 PCR Interp October 24, 2019 9:00am Negative Negative Negative results do not preclude 2019-nCoV infection andshould not be used as the sole basis for treatment or otherpatient management decisions. Negative results must becombined with clinical observations, patient history, andepidemiologic al information.This test was developed and its performance characteristicsd etermined by [facility]. It has not been cleared [...] modification asdefined by the FDAPerformed on the [employer] [address] [facility] Reference Lab Test Performing Site October 24, 2019 9:00am [address] [facility] lab Is Patient Admitted or Awaiting Admission?:noCOV ID Source: NPTest performed or referred byThe [address] [place] [address] Advance Directives Advance Directive Response Recorded Date/ Time Does patient have an Advanced Directive? Yes June 29, 2016 8:06am Do we have a copy on file here at [facility]? Yes June 29, 2016 8:06am Pt has a Living Will? Yes June 29, 2016 8:06am Do we have a copy on file here at [facility]? Yes June 29, 2016 8:06am Pt has a Power of Legal Aide? Yes Alonso 2016 8:06am Do we have a copy on file here at [facility]? Yes June 29, 2016 8:06am Chief Complaint and Reason for Visit Chief Complaint COVID19 CURBSIDE JEIMY T Lab Encounters Encounter Location(s) Arrival/Admit Date Discharge/Depart Date Provider(s) Departed Clinical [facility] October 24, 2019 7:49am October 24, 2019 7:50am Russel Otto MD Departed Clinical [facility] March 18, 2020 10:00am March 18, 2020 10:01am Barbara Conway VENTURE CAPITALIST Departed Emergency [facility] Urgent [facility] April 28, 2020 10:07am April 28, 2020 11:05am null Assessments No Assessments Information Available Family History Relationship Condition Age at Onset Recorded Date/T jose Sibling Diabetes mellitus Unknown Parent Uses contact lenses Unknown Parent Diabetes mellitus Unknown Sibling Diabetes mellitus Unknown Functional Status No Functional Status information available Goals Goals may be documented in an alternate section. Immunizations Immunization Event Date Not Given Reason Dose Number Sports Nutritionist Lot Number Vaccine Information Statement (VIS) Detail Tdap April 28, 2020 [id number] Mental Status No Mental Status Information Available Medical Equipment Implanted Devices Device Date Implanted Device Details LENS [id number] 19.5 June 29, 2016 GUSTAVO: LENS [id number] 19.5 September 07, 2016 GUSTAVO: Insurance Providers Guarantor BRYCE HILL Address [address] [facility] [address] [facility] [address] Contact Info. Home Phone: Payer Policy Id Coverage Id Subscriber's Name Subscriber Id Effective Date Expiration Date BLUE CROSS OUT OF STATE [id number] BRYCE HILL [id number] MEDICARE OUT (DO NOT USE) [id number] BRYCE HILL [id number] 2011 MEDICARE PART A AND B COVERAGE [id number] BRYCE HILL [id number] SELF PAY Self N/A [facility] [id number] BRYCE HILL [id number] [facility] (DO NOT USE) [id number] BRYCE HILL [id number] 2016 Plan of Treatment Future Tests Future scheduled test information is unavailable Pending Tests Pending diagnostic test information is unavailable Future Visits Future appointment information is unavailable Referrals to Other Providers Reason for Referral Referral Start Date Provider Provider Contact Information Provider Address Barbara Conway [facility] Work Phone: [address] [address] Future Procedures Future procedure information is unavailable [...] 10:15am BMI (Body Mass Index) 31.6 kg/m2 r y 2020 10:15am
--- OUTSIDE RECORDS SUMMARY | 2024-03-18 22:07 | XMS_ITS | Continuity of Care Document ---
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 May 10, 2018 Active Thoracic and [...] Active 1000 MG PO TWICE A DAY [facility] 2016 11:09am Ibuprofen (Motrin Ib) 200 mg [...] PO TWICE A DAY October 03, 2017 11:40am November 01, 2017 6:59am Metoprolol Succinate Active November 01, 2017 6:58am Lisinopril Active TABLET e r 2018 12:12pm Prednisone Disconti nued 10 MG PO DAILY 5 5 r 2018 12:48pm Novemb er 2018 1:08am Fluticasone Propionate Active 1 SPR NA Q12H 9.9 r 2018 12:49pm administer into each nostril Guaifenesin Disconti nued 400 MG PO .q8hr 15 5 r 2018 12:49pm Novemb er 2018 1:08am Benzonatate Disconti nued 100 MG PO every day at bedtime 14 r 2018 12:51pm Januar y 2020 11:15a m Immunizations Immunization Event Date Not Given Reason Dose Number 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 General 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 Lot Number Vaccine Information Statement (VIS) Detail [...] 2020 11:17am 137 mmol/L 137-145 MAIN LAB [address] [place] [address] Sodium Level December 17, 2020 9:39am 139 mmol/L 137-145 MAIN LAB [address] [address] Sodium Level February 02, 2021 11:57am 138 mmol/L 137-145 MAIN LAB [address] [address] Sodium Level August 23, 2021 8:34am 138 mmol/L 137-145 MAIN LAB [address] [address] Potassium Level November 16, 2020 11:17am 4.6 mmol/L 3.6-5.0 MAIN LAB [address] [place] [address] Potassium Level December 17, 2020 9:39am 4.7 mmol/L 3.6-5.0 MAIN LAB [address] [address] Potassium Level February 02, 2021 11:57am 4.1 mmol/L 3.6-5.0 MAIN LAB [facility] [address] [facility] [address] Potassium Level August 23, 2021 8:34am 4.9 mmol/L 3.6-5.0 MAIN LAB [facility] [address] [facility] [address] Chloride Level November 16, 2020 11:17am 103 mmol/L 98-107 MAIN LAB [address] [place] [address] Chloride Level December 17, 2020 9:39am 104 mmol/L 98-107 MAIN LAB [facility] [address] [facility] [address] Chloride Level February 02, 2021 11:57am 99 mmol/L 98-107 MAIN LAB [address] [address] Chloride Level August 23, 2021 8:34am 103 mmol/L 98-107 MAIN LAB [address] [address] Carbon Dioxide Level November 16, 2020 11:17am 25 mmol/L 22-30 MAIN LAB [address] [place] [address] Carbon Dioxide Level December 17, 2020 9:39am 26 mmol/L 22-30 MAIN LAB [address] [address] Carbon Dioxide Level February 02, 2021 11:57am 30 mmol/L 22-30 MAIN LAB [address] [address] Carbon Dioxide Level August 23, 2021 8:34am 26 mmol/L 22-30 MAIN LAB [facility] [address] [facility] [address] Anion Gap November 16, 2020 11:17am 9 7-16 MAIN LAB [address] [facility] [address] Anion Gap December 17, 2020 9:39am 9 7-16 MAIN LAB [facility] [address] [facility] [address] Anion Gap August 23, 2021 8:34am 9 7-16 MAIN LAB [address] [address] Blood Urea Nitrogen November 16, 2020 11:17am 22 mg/dL 7-17 MAIN LAB [address] [place] [address] Blood Urea Nitrogen December 17, 2020 9:39am 15 mg/dL 7-17 MAIN LAB [address] [address] Blood Urea Nitrogen February 02, 2021 11:57am 18 mg/dL 7-17 MAIN LAB [address] [address] Blood Urea Nitrogen August 23, 2021 8:34am 18 mg/dL 7-17 MAIN LAB [address] [address] Creatinine November 16, 2020 11:17am 1.30 mg/dL 0.52-1.04 MAIN LAB [address] [place] [address] Creatinine December 17, 2020 9:39am 1.03 mg/dL 0.52-1.04 MAIN LAB [address] [address] Creatinine February 02, 2021 11:57am 1.02 mg/dL 0.52-1.04 MAIN LAB [address] [address] Creatinine August 23, 2021 8:34am 1.00 mg/dL 0.52-1.04 MAIN LAB [address] [address] Glomerular Filtration Rate Calc November 16, 2020 11:17am 40 mL/min >60.0 MAIN LAB [address] [place] [address] Glomerular Filtration Rate Calc December 17, 2020 9:39am 52 mL/min >60.0 MAIN LAB [address] [address] Glomerular Filtration Rate Calc February 02, 2021 11:57am 53 mL/min >60.0 MAIN LAB [address] [address] Glomerular Filtration Rate Calc August 23, 2021 8:34am 54 mL/min >60.0 MAIN LAB [address] [address] Glucose Level November 16, 2020 11:17am 113 mg/dL 70-100 MAIN LAB [address] [place] [address] Glucose Level December 17, 2020 9:39am 93 mg/dL 70-100 MAIN LAB [address] [address] Glucose Level February 02, 2021 11:57am 115 mg/dL 70-100 MAIN LAB [address] [address] Glucose Level August 23, 2021 8:34am 89 mg/dL 70-100 MAIN LAB [address] [address] Calcium Level November 16, 2020 11:17am 9.6 mg/dL 8.4-10.2 MAIN LAB [address] [place] [address] Calcium Level December 17, 2020 9:39am 10.0 mg/dL 8.4-10.2 MAIN LAB [address] [address] Calcium Level February 02, 2021 11:57am 9.5 mg/dL 8.4-10.2 MAIN LAB [address] [address] Calcium Level August 23, 2021 8:34am 9.8 mg/dL 8.4-10.2 MAIN LAB [address] [address] Calcium Adjusted for Albumin February 02, 2021 11:57am 9.7 mg/dL 8.4-10.2 MAIN LAB [address] [address] Calcium Adjusted for Albumin August 23, 2021 8:34am 9.7 mg/dL 8.4-10.2 MAIN LAB [address] [address] Phosphorus Level February 02, 2021 11:57am 4.3 mg/dL 2.5-4.5 MAIN LAB [address] [address] Phosphorus Level August 23, 2021 8:34am 3.8 mg/dL 2.5-4.5 MAIN LAB [address] [address] Albumin February 02, 2021 11:57am 4.1 g/dL 3.5-5.0 MAIN LAB [address] [address] Albumin August 23, 2021 8:34am 4.4 g/dL 3.5-5.0 MAIN LAB [address] [address] Hemoglobin A1c Percent August 23, 2021 8:34am 6.24 % <5.7 <5.7%: Normal5.7%-6.4% : Prediabetes>=6. 5%: Diagnostic for diabetesGoals for Glycemic Control in Diabetes (ADA 2018)<7.0%: A1c target for non adults with diabetes. More or less stringent glycemic goals may be appropriate for individual patients.<7.5%: A1c target for children and adolescents with type I diabetes. A lower goal is reasonable if it can be achieved without excessive hypoglycemia. MAIN LAB [facility] [address] [facility] [address] Estimated Average Glucose mg/dL August 23, 2021 8:34am 132 mg/dL MAIN LAB [facility] [address] [facility] [address] Diagnostic Imaging Reports Report Dictated Date/Time Dictated By Status Radiology Report January 25, 2021 11:47am Maria T Enrique MD completed [facility] ULTRASOUND REPORT PATIENT NAME: BRYCE HILL 6 [...] Enrique MD dd: 01/25/21 1147 01/25/21 1147 Advance Directives Advance Directive Response Recorded Date/ Time Does patient have an Advanced Directive? Yes June 29, 2016 9:06am Do we have a copy on file here at [facility]? Yes June 29, 2016 9:06am Pt has a Living Will? Yes June 29, 2016 9:06am Do we have a copy on file here at [facility]? Yes June 29, 2016 9:06am Pt has a Power of Roller Coaster Designer? Yes 2016 9:06am Do we have a copy on file here at [facility]? Yes June 29, 2016 9:06am Insurance Providers Guarantor BRYCE HILL Address [address] [facility] [address] [facility] [address] Contact Info. Home Phone: Payer Policy Id Coverage Id Subscriber's Name Subscriber Id Effective Date Expiration Date BLUE CROSS OUT OF STATE [id number] BRYCE Anibal LIZ [id number] MEDICARE OUT (DO NOT USE) [id number] BRYCE HILL [id number] 2011 MEDICARE PART A AND B COVERAGE [id number] BRYCE Anibal LIZ [id number] SELF PAY Self N/A [facility] CARE [id number] BRYCE HILL [id number] [facility] (DO NOT USE) [id number] BRYCE HILL [id number] 2016 Encounters Encounter Location(s) Arrival/Admit Date Discharge/Depart Date Provider(s) Departed [facility] November 16, 2020 11:02am November 16, 2020 11:03am [facility], 2020 9:33am December 17, 2020 9:34am Evelyn Gannon NP Departed [facility] January 22, 2021 12:34pm January 22, 2021 12:35pm Evelyn Gannon NP Departed [facility] February 02, 2021 11:28am February 02, 2021 11:29am FOSTER Conway Depart Clinical [facility] August 23, 2021 8:29am August 23, 2021 8:30am FOSTER Conway
--- OUTSIDE RECORDS SUMMARY | 2024-03-18 22:07 | XMS_ITS | Continuity of Care Document ---
Author Organization [facility] Address [address] [place], [place] [address] Phone Care Team Providers Care Biscuit Machine Operator Name Role Phone Henri Conwayi Primary Care Provider [phone] Barbara Conway Attending Provider [phone] Melvin Espinoza Emergency Provider [phone] Melvin Espinoza Attending Provider [phone] Care Teams Patient Care Team Team Status: Active Member Role Status Dates Barbara Conway Primary Care Provider Active Visit Care Team Team Status: Inactive Member Role Status Dates Barbara Conway Primary Care Provide r, Attending Provider Active Start: July 27, 2022 End: July 27, 2022 Visit Care Team Team Status: Inactive Member Role Status Dates Barbara Conway Primary Care Provide r, Attending Provider Active Start: August 31, 2022 End: August 31, 2022 Patient Care Team Team Status: Inactive Member Role Status Dates Barbara Conway Primary Care Provider Active Start : April 15, 2023 End: April 15, 2023 VELMA Davis Emergency Provider Active St art: April 15, 2023 End: April 15, 2023 Patient Care Team Team Status: Active Member Role Status Dates Barbara Conway Primary Care Provider Active Start : April 15, 2023 VELMA Davis Attending Provider Active St art: April 15, 2023 Chief Complaint and Reason for Visit Chief Complaint Admit Date Lab July 27, 2022 8:26 am Lab August 31, 2022 11:55 am Provider Based Billing April 15 8:08am Allergies, Adverse Reactions, Alerts Allergen Type Severity Reaction Last Updated Verified Status simvastatin Adverse Reaction Moderate Decembe r 2022 8:13am Yes Active Sulfa (Sulfonamide Antibiotics) Adverse Reaction Unknown April 15, 2023 8:13am Yes Active Social History Smoking Status Status Start Date End Date Date of Observa tion Never smoked tobacco (finding) April 15, 2023 8:26am Observation Status Observation Response Date of Response Alcohol Use No April 15 023 8:26am Substance/Street Drug Use No Harriett y 2020 10:43am Substance Use Treatment No April 15, 2023 8:26am substance use type does not use March 8:26am Smoking Status Never smoker April 15 8:26am Additional Data Assigned Sex Female Family History [...] diabetes mellitus May 24, 2016 Acti ve Cough Active Trochanteric bursitis February 27, 2018 Active [...] Atorvastatin Active 40 MG PO BEDTIME Jun 12:00am Metformin Disconti nued 500 MG PO EVERY MORNING June 23, 2016 12:00am September 02, 2016 12:40p m Omeprazole Active 40 MG PO EVERY MORNING June 23, 2016 12:00am Aspirin Disconti nued 81 MG PO BEDTIME June 23, 2016 12:00am September 02, 2016 12:40p m Calcium Carbonate (Calcium 500) 500 mg calcium (1,250 mg) Tablet Active 500 MG PO TWICE A DAY June 23, 2016 12:00am Metformin Active 1000 MG PO TWICE A DAY [facility] 12:00am Ibuprofen (Motrin Ib) 200 mg Tablet Disconti nued 600 MG PO THREE TIMES A DAY June 23, 2016 12:00am Decemb er 2022 8:14am Lisinopril Disconti nued 40 MG PO EVERY MORNING June 23, 2016 12:00am November 01, 2017 6:00am Multivitamin Disconti nued 1 TAB-CA P PO EVERY MORNING June 23, 2016 [facility] 11:11a m Atenolol Disconti nued 50 MG PO EVERY MORNING June 23, 2016 12:00am [facility] er 2018 11:12a m Magnesium Disconti nued 400 MG PO EVERY EVENING June 23, 2016 12:00am [facility] er 2018 11:11a m Nitrofurantoi n Monohyd/M-Cry st (Macrobid) 100 mg Capsule Disconti nued 1 CAP PO Q12H June 23, 2016 12:00am November 01, 2017 5:59am Cephalexin Disconti nued 500 MG PO TWICE A DAY 14 October 02, 2017 11:00pm November 01, 2017 5:59am Metoprolol Succinate Active October 31, 2017 11:00pm Lisinopril Active TABLET [facility] e r 2018 12:00am Prednisone Disconti nued 10 MG PO DAILY 5 5 Novembe r 2018 12:00am [facility] 12:08a m Fluticasone Propionate Disconti nued 1 SPR NA Q12H 9.9 Novembe r 2018 12:00am Decemb er 2022 8:14am administer into each nostril Guaifenesin Disconti nued 400 MG PO .q8hr 15 5 be r 2018 12:00am [facility] 12:08a m Benzonatate Disconti nued 100 MG PO every day at bedtime 14 r 2018 12:00am Januar y 2020 10:15a m Gabapentin Active UNK UNK Decemb e r 2022 12:00am Benzonatate Active 100 MG PO THREE TI MES A DAY 30 Decembe r 2022 12:00am Immunizations Immunization Event Date Not Given Reason Dose Number Clinical Quality Analyst Lot Number Vaccine Information Statement (VIS) Detail Tdap April 28, 2020 [id number] Medical Equipment Device Date Implanted Device Details LENS [id number] 19.5 June 29, 2016 LENS [id number] 19.5 September 07, 2016 Relevant Diagnostic Tests and/or Laboratory Data Laboratory Results Test Date/Time Result Interpretation Reference Range Result Comment Performing Site White Blood Count July 27, 2022 7:31am 6.33 1000/mm3 4.8-10.8 MAIN LAB [id number] [address] [address] Red Blood Count July 27, 2022 7:31am 4.12 M/mm3 4.20-5.40 MAIN LAB [id number] [address] [address] Hemoglobin July 27, 2022 7:31am 12.0 g/dL 12.0-16.0 MAIN LAB [id number] [address] [address] Hematocrit July 27, 2022 7:31am 38.1 % 37-47 MAIN LAB [id number] [address] [address] Mean Corpuscular Volume July 27, 2022 7:31am 92.5 fL 81.0-99.0 MAIN LAB [id number] [address] [address] Mean Corpuscular Hemoglobin July 27, 2022 7:31am 29.1 pg 27-31 MAIN LAB [id number] [address] [address] Mean Corpuscular Hemoglobin Concent July 27, 2022 7:31am 31.5 g/dL 33-37 MAIN LAB [id number] [address] [address] Red Cell Distribution Width July 27, 2022 7:31am 12.8 % 11.5-14.5 MAIN LAB [id number] [address] [address] Platelet Count July 27, 2022 7:31am 261 1000/mm3 140-440 MAIN LAB [id number] [address] [address] Mean Platelet Volume July 27, 2022 7:31am 9.5 fL 7.4-10.4 MAIN LAB [id number] [address] [address] Estimated Average Glucose mg/dL July 27, 2022 7:31am 122 mg/dL MAIN LAB [id number] [address] [address] Sodium Level August 31, 2022 11:26am 140 mmol/L 137-145 MAIN LAB [id number] [address] [address] Potassium Level August 31, 2022 11:26am 4.2 mmol/L 3.6-5.0 MAIN LAB [id number] [address] [address] Chloride Level August 31, 2022 11:26am 104 mmol/L 98-107 MAIN LAB [id number] [address] [address] Carbon Dioxide Level August 31, 2022 11:26am 25 mmol/L 22-30 MAIN LAB [id number] [address] [address] Anion Gap August 31, 2022 11:26am 10 7-16 MAIN LAB [id number] [address] [address] Blood Urea Nitrogen August 31, 2022 11:26am 24 mg/dL 7-17 MAIN LAB [id number] [address] [address] Creatinine August 31, 2022 11:26am 0.90 mg/dL 0.52-1.04 MAIN LAB [id number] [address] [address] Glomerular Filtration Rate Calc August 31, 2022 11:26am 66 mL/min >60.0 MAIN LAB [id number] [address] [address] Glucose Level August 31, 2022 11:26am 113 mg/dL 70-100 MAIN LAB [id number] [address] [address] Calcium Level August 31, 2022 11:26am 9.2 mg/dL 8.4-10.2 MAIN LAB [id number] [address] [address] Cholesterol Level July 27, 2022 7:31am 155 mg/dL 59-199 MAIN LAB [id number] [address] [address] Triglycerides Level July 27, 2022 7:31am 63 mg/dL 0-149 MAIN LAB [id number] [address] [address] HDL Cholesterol July 27, 2022 7:31am 69 mg/dL 40-60 The National Cholesterol Education Program (NCEP) has set the following guidelines (reference values) for cholesterol, HDL:Low HDL: <40 mg/dLNormal: 40-60 mg/dLDesirable : >60 mg/dL MAIN LAB [id number] [address] [address] LDL Cholesterol July 27, 2022 7:31am 73.4 mg/dL 0-129 MAIN LAB [id number] [address] [address] VLDL Cholesterol July 27, 2022 7:31am 12.6 mg/dL 0-32 MAIN LAB [id number] [address] [address] Cholesterol/HDL Ratio July 27, 2022 7:31am 2.24 0-3.9 MAIN LAB [id number] [address] [address] Hemoglobin A1c Percent July 27, 2022 7:31am 5.89 % <5.7 <5.7%: Normal5.7%-6.4 %: Prediabetes>=6 .5%: Diagnostic for diabetesGoals for Glycemic Control in Diabetes (ADA 2018)<7.0%: A1c target for non adults with diabetes. More or less stringent glycemic goals may be appropriate for individual patients.<7.5% : A1c target for children and adolescents with type I diabetes. A lower goal is reasonable if it can be achieved without excessive hypoglycemia. MAIN LAB [id number] [facility] [address] [facility] [address] Vital Signs Vital Reading Result Reference Range Collection Date/Time Height 64 [in_i] April 15, 2023 8:14am Weight 79.42 kg April 15, 2023 8:14am Body Temperature 98.6 [degF] 97.6-99.6 April 152022 8:14am Heart Rate 64 /min 60-100 April 15, 2023 8:14am Respiratory rate 12 /min 12-April 152022 8:14am Oxygen saturation by Pulse oximetry 99 % 95-100 April 15, 2023 8:14am BP Systolic 120 mm[Hg] 100-140 April 15, 2023 8:14am BP Diastolic 70 mm[Hg] 50-85 April 15, 2023 8:14am Advance Directives Advance Directive Response Recorded Date/ Time Does patient have an Advance Directive? Yes December 01, 2021 9:07am Does patient have a COLST form? No December 01, 2021 9:07am Insurance Providers Guarantor BRYCE HILL Address 4 [facility] [address] [place] [address] Contact Info. Home Phone: Payer Policy Id Coverage Id Subscriber's Name Subscriber Id Effective Date Expiration Date [facility] OUT OF STATE [id number] BRYCE HILL [id number] MEDICARE OUT (DO NOT USE) [id number] BRYCE HILL [id number] 2011 MEDICARE PART A AND B COVERAGE [id number] BRYCE HILL [id number] SELF PAY Self N/A [facility] [id number] BRYCE HILL [id number] [facility] (DO NOT USE) [id number] BRYCE HILL [id number] 2016 Encounters Encounter Location(s) Arrival/Admit Date Discharge /Depart Date Provider(s) Departed Clinical [facility] July 27, 2022 7:26am July 27, 2022 7:27am 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 Conway Departed Clinical [facility] August 31, 2022 10:55am August 31, 2022 10:56am [facility] Barbara Zoraida Departed Emergency [facility] April 15, 2023 8:05am April 15, 2023 8:52am null Registered Physician/Provi david Office Visit [facility] Urgent [facility] April 15, 2023 8:08am VELMA Davis Functional Status Observation Response Date Recorded Ambulation Ability Independent June 23 10:22am Living Situation Alone April 15, 2023 8:14am Plan of Treatment Future Tests Future scheduled test information is unavailable Pending Tests Test Name Ordered Date Scheduled Date Influenza Type A (RT-PCR) April 15, 2023 8: 52am Influenza Type B (RT-PCR) April 15, 2023 8: 52am Respiratory Syncytial Virus (RT-PCR March 8:52am SARS-CoV-2 RNA (RT-PCR) April 15, 2023 8:52 am Future Visits Future appointment information is unavailable Referrals to Other Providers Reason for Referral Referral Start Date Provider Provider Contact Information Provider Address [facility] Barbara lCarkjo ann Work Phone: [address] [address] Future Procedures Procedure Name Ordered Date Scheduled Date COVID, [facility] PCR April 15, 2023 8:24am Decem 2022 8:52am Influenza A, B & RSV PCR April 15, 2023 8:2 4am April 15, 2023 8:52am Future Medications Future medication information is unavailable Patient Instructions Patient instructions are unavailable
--- OUTSIDE RECORDS SUMMARY | 2024-03-18 22:07 | XMS_ITS | Continuity of Care Document ---
as female gender (finding) Author Organization Address [address] [place], [place] [address] Phone Support Name Relationship Address Phone JOSÉ RUIZ Child-Son/Daughter Unknown [phone] MAGGY RUIZ Child-Son/Daughter Unknown Barbara Conway [place] [address] Care Teams Patient Care Team Team Status: Active Member Role Status Dates Barbara Conway Primary Care Provider Active Patient Care Team Team Status: Inactive Member Role Status Dates Barbara Conway Primary Care Provide r, Attending Provider Active Start: December 12, 2023 End: December 12, 2023 Allergies, Adverse Reactions, Alerts Allergen Type Severity [...] Active 1000 MG PO TWICE A DAY [facility] 2016 1:00am Ibuprofen (Motrin Ib) 200 mg Tablet Disconti nued 600 MG PO THREE TIMES A DAY June 23, 2016 1:00am Decemb er 2022 9:14am Lisinopril Disconti nued 40 [...] Disconti nued 1 SPR NA Q12H 9.9 r 2018 1:00am Decemb er 2022 9:14am administer into each nostril Guaifenesin Disconti nued 400 MG PO .q8hr 15 r 2018 1:00am Novemb er 2018 1:08am Benzonatate Disconti nued 100 MG PO every day at bedtime 14 2018 1:00am Januar y 2020 11:15a m Gabapentin Active UNK UNK [facility] e r 2022 1:00am Benzonatate Active 100 MG PO THREE TI MES A DAY 30 Decee r 2022 1:00am Immunizations Immunization Event Date Not Given Reason Dose Number Wind Operations Manager Lot Number Vaccine Information Statement (VIS) Detail Tdap April 28, 2020 [id number] Medical Equipment Device Date Implanted Device Details LENS SN60WF 19.5 June 29, 2016 LENS SN60WF 19.5 September 07, 2016 Relevant Diagnostic Tests and/or Laboratory Data Laboratory Results Test Date/Time Result Interpretation Reference Range Result Comment Performing Site Stool Occult Blood December 12, 2023 12:06am Negative MAIN LAB [id number] [address] [address] Stool Occult Blood Sample #2 December 12, 2023 12:06am Negative MAIN LAB [id number] [address] [address] Stool Occult Blood Sample #3 December 12, 2023 12:06am Negative MAIN LAB [id number] [address] [address] Advance Directives Advance Directive Response Recorded Date/ Time Does patient have an Advance Directive? Yes December 01, 2021 10:07am Does patient have a COLST form? No December 01, 2021 10:07am Insurance Providers Guarantor BRYCE HILL Address 4 [facility] [address] [facility] [address] Contact Info. Home Phone: Payer Policy Id Coverage Id Subscriber's Name Subscriber Id Effective Date Expiration Date [employer] OUT OF [facility] [id number] BRYCE HILL [id number] MEDICARE OUT (DO NOT USE) [id number] BRYCE HILL [id number] 2011 MEDICARE PART A AND B COVERAGE [id number] BRYCE HILL [id number] SELF PAY Self N/A [facility] [id number] BRYCE HILL [id number] [employer] (DO NOT USE) [id number] BRYCE HILL [id number] 2016 Encounters Encounter Location(s) Arrival/Admit Date Discharge/Depart Date Provider(s) Departed Referred -Referred Lab December 12, 2023 11:35am December 12, 2023 11:36am 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
--- OUTSIDE RECORDS SUMMARY | 2024-03-18 22:07 | XMS_ITS | Continuity of Care Document ---
Author Organization [facility] Address [address] [place], [place] [address] Phone Care Team Providers Care Sewing Machine Operator Semiautomatic Name Role Phone EduardoHenri cherryi Primary Care Provider [phone] Duglas Mccullough Attending Provider Barbara Conway Attending Provider Care Teams Patient Care Team Team Status: Active Member Role Status Dates Barbara Conway Primary Care Provider Active Visit Care Team Team Status: Inactive Member Role Status Dates Barbara Conway Primary Care Provider Active Duglas Mccullough Attending Provider Active Visit Care Team Team Status: Inactive Member Role Status Dates Barbara Conway Primary Care Provider, Attending Provide r Active Patient Care Team Team Status: Inactive Member Role Status Dates Barbara Conway Primary Care Provider, Attending Provide r Active Chief Complaint and Reason for Visit Chief Complaint Back & Balance Lab Lab Allergies, Adverse Reactions, Alerts Allergen [...] 28, 2020 11:43am Smoking Status Never smoker Marcia 5th, 202 1 11:43am Additional Data Assigned Sex Female Family [...] Active 1000 MG PO TWICE A DAY [facility] 2016 1:00am Ibuprofen (Motrin Ib) 200 [...] PO .q8hr 15 5 r 2018 [facility] 1[facility] Benzonatate Disconti nued 100 MG PO every day at bedtime 14 2018 1:00am Januar y 2020 11:15a m Immunizations Immunization Event Date Not Given Reason Dose Number Acid Plant Helper Lot Number Vaccine Information Statement (VIS) Detail Tdap April 28, 2020 [id number] Medical Equipment Device Date Implanted Device Details LENS SN60WF 19.5 June 29, 2016 LENS SN60WF 19.5 September 07, 2016 Relevant Diagnostic Tests and/or Laboratory Data Laboratory Results Test Date/Time Result Interpretation Reference Range Result Comment Performing Site White Blood Count July 27, 2022 8:31am 6.33 1000/mm3 4.8-10.8 MAIN LAB [id number] [address] [address] Red Blood Count July 27, 2022 8:31am 4.12 M/mm3 4.20-5.40 MAIN LAB [id number] [address] [address] Hemoglobin July 27, 2022 8:31am 12.0 g/dL 12.0-16.0 MAIN LAB [id number] [address] [address] Hematocrit July 27, 2022 8:31am 38.1 % 37-47 MAIN LAB [id number] [address] [address] Mean Corpuscular Volume July 27, 2022 8:31am 92.5 fL 81.0-99.0 MAIN LAB [id number] [address] [address] Mean Corpuscular Hemoglobin July 27, 2022 8:31am 29.1 pg 27-31 MAIN LAB [id number] [address] [address] Mean Corpuscular Hemoglobin Concent July 27, 2022 8:31am 31.5 g/dL 33-37 MAIN LAB [id number] [address] [address] Red Cell Distribution Width July 27, 2022 8:31am 12.8 % 11.5-14.5 MAIN LAB [id number] [address] [address] Platelet Count July 27, 2022 8:31am 261 1000/mm3 140-440 MAIN LAB [id number] [address] [address] Mean Platelet Volume July 27, 2022 8:31am 9.5 fL 7.4-10.4 MAIN LAB [id number] [address] [address] Estimated Average Glucose mg/dL July 27, 2022 8:31am 122 mg/dL MAIN LAB [id number] [address] [address] Sodium Level August 31, 2022 12:26pm 140 mmol/L 137-145 MAIN LAB [id number] [address] [address] Potassium Level August 31, 2022 12:26pm 4.2 mmol/L 3.6-5.0 MAIN LAB [id number] [address] [address] Chloride Level August 31, 2022 12:26pm 104 mmol/L 98-107 MAIN LAB [id number] [address] [address] Carbon Dioxide Level August 31, 2022 12:26pm 25 mmol/L 22-30 MAIN LAB [id number] [address] [address] Anion Gap August 31, 2022 12:26pm 10 7-16 MAIN LAB [id number] [address] [address] Blood Urea Nitrogen August 31, 2022 12:26pm 24 mg/dL 7-17 MAIN LAB [id number] [address] [address] Creatinine August 31, 2022 12:26pm 0.90 mg/dL 0.52-1.04 MAIN LAB [id number] [address] [address] Glomerular Filtration Rate Calc August 31, 2022 12:26pm 66 mL/min >60.0 MAIN LAB [id number] [address] [address] Glucose Level August 31, 2022 12:26pm 113 mg/dL 70-100 MAIN LAB [id number] [address] [address] Calcium Level August 31, 2022 12:26pm 9.2 mg/dL 8.4-10.2 MAIN LAB [id number] [address] [address] Cholesterol Level July 27, 2022 8:31am 155 mg/dL 59-199 MAIN LAB [id number] [address] [address] Triglycerides Level July 27, 2022 8:31am 63 mg/dL 0-149 MAIN LAB [id number] [address] [address] HDL Cholesterol July 27, 2022 8:31am 69 mg/dL 40-60 The National Cholesterol Education Program (NCEP) has set the following guidelines (reference values) for cholesterol, HDL:Low HDL: <40 mg/dLNormal: 40-60 mg/dLDesirable : >60 mg/dL MAIN LAB [id number] [address] [address] LDL Cholesterol July 27, 2022 8:31am 73.4 mg/dL 0-129 MAIN LAB [id number] [facility] [address] [facility] [address] VLDL Cholesterol July 27, 2022 8:31am 12.6 mg/dL 0-32 MAIN LAB [id number] [facility] [address] [facility] [address] Cholesterol/HDL Ratio July 27, 2022 8:31am 2.24 0-3.9 MAIN LAB [id number] [address] [address] Hemoglobin A1c Percent July 27, 2022 8:31am [...] be achieved without excessive hypoglycemia. MAIN LAB [id number] [address] [address] Vital Signs Vital Reading Result Reference Range Collection Date/Time BP Systolic 144 mm[Hg] 100-140 December 01 10:53am BP Diastolic 82 mm[Hg] 50-85 December 01 10:53am Advance Directives Advance Directive Response Recorded Date/ Time Does patient have an Advance Directive? Yes December 01, 2021 10:07am Does patient have a COLST form? No December 01, 2021 10:07am Insurance Providers Guarantor BRYCE HILL Address 4 [facility] [address] [facility] [address] Contact Info. Home Phone: Payer Policy Id Coverage Id Subscriber's Name Subscriber Id Effective Date Expiration Date [employer] OUT OF STATE [id number] BRYCE HILL [id number] MEDICARE OUT (DO NOT USE) [id number] BRYCE HILL [id number] 2011 MEDICARE PART A AND B COVERAGE [id number] BRYCE HILL [id number] SELF PAY Self N/A [facility] [id number] BRYCE HILL [id number] [facility] (DO NOT USE) [id number] BRYCE HILL [id number] 2016 Encounters Encounter Location(s) Arrival/Admit Date Discharge /Depart Date Provider(s) Discharged [facility] January 11, 2022 10:45am January 21, 2022 4:15pm VELMA Barnard Departed Clinical [facility] July 27, 2022 8:26am July 27, 2022 8:27am FOSTER Conway Departed Clinical [facility] August 31, 2022 11:55am August 31, 2022 11:56am [facility] Barbara Conway Functional Status Observation Response Date Recorded Ambulation Ability Independent June 23 11:22am Living Situation Alone December 01 10:49am
--- OUTSIDE RECORDS SUMMARY | 2024-03-18 22:08 | XMS_ITS | Encounter Summary ---
Author Organization [facility] Address [address] [place] [address] Care Team Providers Care Bottling Room Worker Name Role Phone Barbara Conway Myla TOY ASSEMBLY SUPERVISOR Primary Care Provider [phone] Reason for Visit * Reason Onset Date Comments Surgery Scheduling 02/09/2024 Encounter Details Date Type Department Care Team (Late st Contact Info) Description 02/09/2024 Telephone [facility] Hand & Upper Extremity Program - [address] [place], [place] [id number] Arianne Dyson RN Surgery Scheduling Social History Tobacco Use Types Packs/Day Years Used Date Smoking Tobacco: Never Smokeless Tobacco: Never Alcohol Use Standard Drinks/Week Comments Not Currently 0 (1 standard drink = 0.6 oz pur e alcohol) PHQ-2 Answer Date Recorded PHQ-2 SUBTOTAL 0 10/28/2019 Interpersonal Safety Answer Date Record ed Physically Hurt Never 11/24/2019 Verbally Threaten Not on file 11/24/2019 Comments No Sex and Gender Information Value Date Recorded Sex Assigned at Female 03/08/2024 18:30 EST Legal Sex Female 18:30 EST Gender Identity Female 05/28/2019 8:56 EST Sexual Orientation Not on file documented as of this encounter Functional Status * Are you deaf or do you have serious difficulty hearing? Answer Date of Assessment Author No 10/22/2021 11:35 EDT Mariela Arnold, [id number] * Are you blind or do you have serious difficulty seeing, even when wearing glasses? Answer Date of Assessment Author No 10/28/2019 17:00 EDT Mackenzie Pappas RN * Do you have serious difficulty walking or climbing stairs? (5 years old or older) Answer Date of Assessment Author No 10/28/2019 17:00 EDT Mackenzie Pappas RN * Do you have difficulty dressing or bathing? (5 years old or older) Answer Date of Assessment Author No 10/28/2019 17:00 EDT Mackenzie Pappas RN * Because of a physical, mental, or emotional condition, do you have difficulty doing errands alone such as visiting a doctor's office or shopping? (15 years old or older) Answer Date of Assessment Author No 10/28/2019 17:00 EDT Mackenzie Pappas RN documented as of this encounter Mental Status * Because of a physical, mental, or emotional condition, do you have serious difficulty concentrating, remembering, or making decisions? (5 years old or older) Answer Entry Date Author No 10/28/2019 17:00 EDT Mackenzie Pappas RN documented in this encounter Miscellaneous Notes * Telephone Encounter - Arianne Dyson RN - 02/16/2024 0932 EDT Returned cecil to [facility] and advised H&P on 03/18 is appropriate for planned surgery on 03/27. * Telephone Encounter - Frida Gomez - 02/15/2024 1553 EDT Patient is calling back to let clinic know Pre Opt will be on 03/18/24. She wanted to make sure that was enough time for surgery on 03/27/24. Please advise. * Telephone Encounter - Arianne Dyson RN - 02/13/2024 1134 EDT Returned call to [facility]. Went directly to . Left message advising surgery will be scheduled on 03/27 . Reminded she needs a preop physical within 30 days of the procedure. Advised to call back with any further questions. * Telephone Encounter - Gomez Frida - 02/13/2024 1047 EDT Patient is calling back she will take 03/27/24 for her surgery for left shoulder. Please call. * Telephone Encounter - Arianne Dyson RN - 02/09/2024 1458 EDT PC to [facility] to offer surgical date of 03/[address] Castillo. She did not answer. Left VM requesting call back to discuss. documented in this encounter Plan of Treatment Upcoming Encounters Date Type Department Care Team (Latest Contact Info) Description 03/27/2024 14:25 EST Hospital Encounter [facility] OR [address] [place] [address] [phone] Vishal Castillo MD [address] [place] [address] [phone] 03/27/2024 14:25 EST - 03/27/2024 17:55 EST Surgery [facility] OR [address] [place] [address] [phone] Vishal Castillo MD [address] [place] [phone] Left Reverse Total Shoulder Arthroplasty [98659 (CPT??)] 04/08/2024 15:30 EST Post-op Visit [facility] Hand & Upper Extremity Program - [address] [place] [address] Vishal Castillo MD [address] [place] [address] [phone] Scheduled Procedures Name Priority Associated Diagnoses Date/Ti me ARTHROPLASTY, SHOULDER, TOTAL Left rotator cuff tear arthropathy 03/27/2024 14:25 EST documented as of this encounter Visit Diagnoses Not on filedocumented in this encounter Care Teams Bottling Room Worker Relationship Specialty Start Date End Date Barbara Conway, TOY ASSEMBLY SUPERVISOR [address] [place] [address] PCP - General 08/19/13 documented as of this encounter
--- OUTSIDE RECORDS SUMMARY | 2024-03-18 22:08 | XMS_ITS | Encounter Summary ---
Author Organization [facility] Address [address] [place] [address] Care Team Providers Care Exterior Interior Specialist Name Role Phone Juantessjo annBarbara Myla PARENT EDUCATOR Primary Care Provider [phone] Encounter Details Date Type Department Care Team (Late st Contact Info) Description 01/12/2024 13:15 EDT Phlebotomy Only [facility] ED Center 2 Phlebotomy [address] [place], [place] [id number] Assistant Food Service Manager, Acc Phlebotomy Type 2 diabetes mellitus without complication, without long-term current use of insulin ([facility]) Social History Tobacco Use Types Packs/Day Years [...] Assessment Author No 10/22/2021 11:35 EDT Mariela Arnold RN * Are you blind or do you have serious difficulty seeing, even when wearing glasses? Answer Date of Assessment Author No 10/28/2019 17:00 EDT Mackenzie Pappas RN * Do you have serious difficulty walking or climbing stairs? (5 years old or older) Answer Date of Assessment Author No 10/28/2019 17:00 Mackenzie Vela RN * Do you have difficulty dressing or bathing? (5 years old or older) Answer Date of Assessment Author No 10/28/2019 17:00 Mackenzie Vela RN * Because of a physical, mental, or emotional condition, do you have difficulty doing errands alone such as visiting a doctor's office or shopping? (15 years old or older) Answer Date of Assessment Author No 10/28/2019 17:00 Mackenzie Vela RN documented as of this encounter Mental Status * Because of a physical, mental, or emotional condition, do you have serious difficulty concentrating, remembering, or making decisions? (5 years old or older) Answer Entry Date Author No 10/28/2019 17:00 Mackenzie Vela RN documented in this encounter Plan of Treatment Upcoming Encounters Date Type Department Care Team (Latest Contact Info) Description 03/27/2024 14:25 EST Hospital Encounter [facility] OR [address] [place] [phone] Vishal Castillo MD [address] [place] [phone] 03/27/2024 14:25 EST - 03/27/2024 17:55 EST Surgery [facility] OR [address] [place] [phone] Vishal Castillo MD [address] [place] [phone] Left Reverse Total Shoulder Arthroplasty [92738 (CPT??)] 04/08/2024 15:30 EST Post-op Visit [facility] Hand & Upper Extremity Program - [place] [address] [place] [address] Vishal Castillo MD [address] [place] [phone] Scheduled Procedures Name Priority Associated Diagnoses Date/Ti me ARTHROPLASTY, SHOULDER, TOTAL Left rotator cuff tear arthropathy 03/27/2024 14:25 EST documented as of this encounter Procedures Procedure Name Priority Date/Time Associated Diagnosis Comments COMPLETE BLOOD COUNT Routine 01/12/2024 14:05 EDT Type 2 diabetes mellitus without complication, without long-term current use of insulin ([facility]) HEMOGLOBIN A1C Routine 01/12/2024 14:05 EDT Type 2 diabetes mellitus without complication, without long-term current use of insulin ([facility]) BASIC METABOLIC PANEL (BMP) Routine 01/12/2024 14:05 EDT Type 2 diabetes mellitus without complication, without long-term current use of insulin ([facility]) documented in this encounter Results * (ABNORMAL) HEMOGLOBIN A1C (01/12/2024 14:05 EDT) Hemoglobin A1c 5.9(H) <5.7 % 01/12/2024 17:17 T [facility] Comment: Glycemic Status References: Normal: ??<5.7% Pre-Diabetes: ??5.7% - 6.4% Diagnostic of Diabetes: ??> or = 6.5% (if confirmed) Est Avg Glucose 123 mg/dL 17:17 EDT [facility] Comment:The eAG represents t he A1c result expressed as average glucose in mg/dL. Blood VENOUS BLOOD / Unknown Venipuncture / Unknown 01/12/2024 14:05 EDT 01/12/2024 14:49 EDT us Vishal Castillo MD CHEMISTRY & BLOOD GAS ORD ERABLES Final Result [facility] [address] [place] [address] * BASIC METABOLIC PANEL (BMP) (01/12/2024 14:05 EDT) Sodium 140 136 - 145 mmol/L 01/12/2024 15:33 [facility] Potassium 3.9 3.5 - 5.0 mmol/L 01/12/2024 15:33 [facility] Chloride 102 96 - 110 mmol/L 01/12/2024 15:33 [facility] CO2 Total 27 22 - 32 mmol/L 01/12/2024 15:33 [facility] Anion Gap 11 5 - 14 mmol/L 01/12/2024 15:33 [facility] Glucose 93 70 - 99 mg/dl 01/12/2024 15:33 [facility] Calcium 9.3 8.5 - 10.5 mg/dL 01/12/2024 15:33 [facility] BUN 18 10 - 26 mg/dL 01/12/2024 15:33 [facility] Creatinine 0.87 0.52 - 1.04 mg/dL 01/12/2024 15:33 [facility] eGFR 69 >60 mL/min/1.73 m2 01/12/2024 15:33 [facility] Blood VENOUS BLOOD / Unknown Venipuncture / Unknown 01/12/2024 14:05 EDT 01/12/2024 14:55 EDT us Vishal Castillo MD CHEMISTRY & BLOOD GAS ORD ERABLES Final Result [facility] [address] [place] [address] * (ABNORMAL) COMPLETE BLOOD COUNT (01/12/2024 14:05 EDT) WBC 6.20 4.00 - 12.40 K/cmm 01/12/2024 14:57 [facility] RBC 3.77(L) 3.86 - 5.04 M/cmm 01/12/2024 14:57 [facility] Hemoglobin 11.1(L) 11.6 - 15.2 g/dL 01/12/2024 14:57 T [facility] HCT 33.6(L) 34.9 - 44.4 % 01/12/2024 14:57 [facility] MCV 89 81 - 98 fL 01/12/2024 14:57 T [facility] MCH 29.4 26.7 - 33.3 pg 01/12/2024 14:57 T [facility] MCHC 33.0 32.1 - 35.9 g/dL 01/12/2024 14:57 [facility] RDW-CV 13.0 <14.7 % 01/12/2024 14:57 [facility] RDW-SD 42.6 <50.4 fl 01/12/2024 14:57 [facility] PLT 260 141 - 377 K/cmm 01/12/2024 14:57 [facility] MPV 10.0 9.5 - 12.7 fL 01/12/2024 14:57 [facility] Blood VENOUS BLOOD / Unknown Venipuncture / Unknown 01/12/2024 14:05 EDT 01/12/2024 14:49 EDT us Vishal Castillo MD HEMATOLOGY & PF4 ORDERABL ES Final Result [facility] [address] [place] [address] documented in this encounter Visit Diagnoses Diagnosis Type 2 diabetes mellitus without complication, without long-term current use of insulin ([facility]) Left rotator cuff tear arthropathy documented in this encounter Care Teams Exterior Interior Specialist Relationship Specialty Start Date End Date Barbara Conway NP [address] [place] [address] PCP - General 08/19/13 documented as of this encounter
--- OUTSIDE RECORDS SUMMARY | 2024-03-18 22:08 | XMS_ITS | Referral Summary ---
Author Organization [facility] Address [address] [place] [address] Care Team Providers Care Sound Engineering Technician Name Role Phone ZoraidaBarbara Myla URBAN PLANNING PROFESSOR Primary Care Provider Encounters Date Type Department Care Team Description 03/14/2024 8:30 EST - 03/14/2024 11:15 EST Hospital Encounter [facility] Pre-Surgical Testing [address], [place] [phone] Discharge Disposition: Home or Self Care 03/14/2024 11:16 EST - 03/14/2024 23:59 EST Hospital Encounter [address] [address] Left rotator cuff tear arthropathy Discharge Disposition: Home or Self Care 02/29/2024 13:15 EST Office Visit [facility] Pelvic Medicine and Reconstructive Surgery - Medical Office Building [facility] [address] [place] [address] Simi De La Cruz MD Nocturia (Primary Dx) 02/26/2024 9:34 EST - 02/26/2024 23:59 EST Hospital Encounter [facility] Breast Imaging - [facility] [address] [address] Encounter for screening mammogram for malignant neoplasm of breast Discharge Disposition: Home or Self Care 02/09/2024 Telephone [facility] Hand & Upper Extremity Program - [place] [address] Arianne Dyson RN Surgery Scheduling 01/30/2024 Telephone [facility] Hand & Upper Extremity Program - [address], [place] [phone] Vishal Castillo MD Other 01/29/2024 7:54 EDT - 01/29/2024 23:59 EDT Hospital Encounter [facility] Xray [address] [place], [place] [phone] Discharge Disposition: Home or Self Care 01/29/2024 13:00 EDT Office Visit [facility] Interventional Pain [address], [place] [phone] Dickson Durham MBBS Spondylosis of lumbar region without myelopathy or radiculopathy (Primary Dx) 01/12/2024 13:15 EDT Phlebotomy Only [facility] ED Center 2 Phlebotomy [address], [place] [phone] [facility] Phlebotomy Type 2 diabetes mellitus without complication, without long-term current use of insulin ([facility]) 01/12/2024 Telephone [facility] Hand & Upper Extremity Program - [address], [place] [phone] Vishal Castillo MD Appointment Related 01/12/2024 Orders Only [facility] Hand & Upper Extremity Program - [address], [place] [phone] Arianne Dyson, АЛЕКСАНДР Type 2 diabetes mellitus without complication, without long-term current use of insulin ([facility]) (Primary Dx) 01/12/2024 10:42 EDT - 01/12/2024 23:59 EDT [address], [place] [phone] Chronic left shoulder pain Discharge Disposition: Home or Self Care 01/12/2024 11:00 EDT Office Visit [facility] Hand & Upper Extremity Program - [address], [place] [phone] Vishal Castillo MD Chronic left shoulder pain (Primary Dx); Left rotator cuff tear arthropathy 01/08/2024 Telephone [facility] Pelvic Medicine and Reconstructive Surgery - Medical Office Building [facility] [address] [place] [address] Tiffanie Pedraza RN Medications Refill 12/20/[address] [facility] Interventional Pain [address] [place] [address] Dickson Durham MBBS Appointment Related; Results 12/18/2023 - 12/18/2023 23:59 EDT Hospital Encounter [facility] Secondary Reads [place] Discharge Disposition: Home or Self Care from Last 3 Months Allergies Active Allergy Reactions Criticality Noted Date Comments Methocarbamol 09/04/2020 hallucination Scopolamine Medium 09/04/2020 hallucination Sulfa (Sulfonamide Antibiotics) Rash 08/31/2016 Tramadol 09/04/2020 hallucination Simvastatin Other (See Comments) 12/21/2012 severe leg cramps Medications lisinopriL (PRINIVIL) 20 mg tablet Take 1 Tablet by mouth every morning. 04/30/18 88 Active metFORMIN (GLUCOPHAGE) 500 mg tablet Take 1 Tablet by mouth 2 times daily with breakfast and dinner. 12/30/19 10 Active omeprazole (PRILOSEC) 40 mg capsule Take 1 Capsule by mouth every morning. 04/30/19 09 Active atorvastatin (LIPITOR) 20 mg tablet Take 1 Tablet by mouth at bedtime. Active atenolol (TENORMIN) 50 mg tablet Take 1 Tablet by mouth every morning. Active ascorbic acid (VITAMIN C) 500 mg tablet Take 1 Tab by mouth at bedtime. 01/07/20 13 Active gabapentin (NEURONTIN) 100 mg capsule Take 1 Capsule by mouth 7X DAILY. 4 caps in morning and 3 evening. Active metoprolol (LOPRESSOR) 50 mg tablet Take 1 Tablet by mouth 2 times daily. Active cholecalcifero l, Vitamin D3, 1,000 unit tablet Take 1 Tablet by mouth daily. Active acetaminophen (TYLENOL) 500 mg tablet Take 2 Tabs by mouth every 6 hours. 10/30/19 Active Additional Information Patient taking differently:1,000 mg oralEVERY 6 HOURS PRN, Reported on 02/29/2024 gabapentin (NEURONTIN) 100 mg capsule Take 2 Capsules by mouth as needed for Pain. Once daily in afternoon PRN Active famotidine (PEPCID) 20 mg tablet Take 1 Tablet by mouth 2 times daily. Active estradioL (ESTRACE) 0.01 % (0.1 mg/gram) vaginal cream Apply a small dab to the urethral opening 2x/week. 42.5 g 2 01/08/20 24 Active acetaminophen (TYLENOL 8 HOUR) 650 mg CR tablet Take 1 Tablet by mouth every morning. Active amoxicillin (AMOXIL) 500 mg capsule Take 1 Capsule by mouth if needed. Before dental appointments Active Cephalexin 500 mg tablet Take by mouth as needed. 1 st sign of UTI Active magnesium oxide 400 mg magnesium capsule Take 400 mg by mouth at bedtime. Leg cramps Active lancets 1 Lancet by misc (non-drug; combo route) route as needed. Active blood glucose meter by misc (non-drug; combo route) route as needed. Active blood glucose test strips 1 Strip by misc (non-drug; combo route) route as needed. Active nystatin (MYCOSTATIN) powder Apply topically to affected area if needed. 11/18/19 24 Active ergocalciferol , vitamin D2, (VITAMIN D ORAL) Take by mouth daily. 024 Discontinued Active Problems Patient Care Coordination No te Formatting of this note migh t be different from the original. Patient has given permission for [facility] to verbally discuss the following information with Ne who has the following relationship to the patient: Son/Daughter: Scheduling/Appt/Billing/Payment Information (does not include clinical information unless specifically indicated with separate option) Medical Information including symptoms, diagnosis, medications, test results and treatment plan (does not include Mental Health unless specifically indicated with separate option) Mental Health (Behavioral,Psychiatric,Chemical Dependency) health information, including my symptoms, diagnosis, medications and treatment plan Permission remains in effect until the patient elects to revoke it. Problem Noted Date Diagnosed Date Left rotator cuff tear arthropathy 01/12/2024 PONV (postoperative nausea and vomiting) 020 Overview (10/28/2019): Associated with opiate administration Chronic pain of right knee 05/02/2016 Obesity due to excess calories 05/02/2016 Primary osteoarthritis of right knee 05/02/2016 Status post total left knee replacement 05/02/19 17 Traumatic arthropathy, lower leg 01/04/2013 Status post total knee replacement 01/04/2013 Osteoarthritis of knee 01/04/2013 History of colonic polyps 04/29/2011 Anserine bursitis Obesity Bilateral bunions Overview (04/25/2016): Severe bunions, but without significant pain, bilateral bunions Social History Tobacco Use Types Packs/Day Years Used Date Smoking Tobacco: Never Passive Smoke Exposure: Never Smokeless Tobacco: Never Tobacco Cessation:Counseling Given: Not Answered Alcohol Use Standard Drinks/Week Comments Not Currently [...] 8:56 EST Sexual Orientation Not on file Last Filed Vital Signs Vital Sign Reading Time Taken Comments Blood Pressure 127/59 01/29/2024 1338 EDT Pulse 62 01/29/2024 1338 EDT Temperature 36.1 ??C (96.9 ??F) 01/29/2024 1231 EDT Respiratory Rate 16 01/29/2024 1338 EDT Oxygen Saturation 98% 01/29/2024 1231 EDT Inhaled Oxygen Concentration - - Weight 72.1 kg (159 lb) 03/14/2024 0840 EST Height 162.6 cm (5' 4) 03/14/2024 0840 EST Body Mass Index 27.29 03/14/2024 0840 EST Functional Status * Are you deaf or [...] Date of Assessment Author No 10/28/2019 17:00 EDMackenzie Pickard RN * Because of a physical, mental, or emotional condition, do you have difficulty doing errands alone such as visiting a doctor's office or shopping? (15 years old or older) Answer Date of Assessment Author No 10/28/2019 17:00 EDMackenzie Pickard RN Mental Status * Because of a physical, mental, or emotional condition, do you have serious difficulty concentrating, remembering, or making decisions? (5 years old or older) Answer Entry Date Author No 10/28/2019 17:00 EDMackenzie Pickard RN Plan of Treatment Upcoming Encounters Date Type Department Care Team (Latest Contact Info) Description 03/27/2024 14:25 EST Hospital Encounter [facility] OR [address] [place] [phone] Vishal Castillo MD [address] [place] [phone] 03/27/2024 14:25 EST - 03/27/2024 17:55 EST Surgery [facility] OR [address] [place] [phone] Vishal Castillo MD [address] [place] [phone] Left Reverse Total Shoulder Arthroplasty [02953 (CPT??)] 04/08/2024 15:30 EST Post-op Visit [facility] Hand & Upper Extremity Program - [address] [place] [address] Vishal Castillo MD [address] [place] [phone] Scheduled Procedures Name Priority Associated Diagnoses Date/Ti me ARTHROPLASTY, SHOULDER, TOTAL Left rotator cuff tear arthropathy 03/27/2024 14:25 EST Medical Devices Implanted Type Area Manager Service Desk Device Identifier Shelf Expiration Date Model / Serial / Lot Cement Bone High Viscosity Tobramycin Radiopaque Single Dose Jean 40gm Simplex [id number] (Right Knee-Mr Safe) Implanted:Qty: 2 on 10/28/2019 by Russel Otto MD at [facility] Ortho Implant Right: Knee [employer] 11/21/2020 [id number] / / [id number] Knee Tibial Baseplate Cemented Fix Right Sz4 Briseyda Ii [id number] (Right Knee-Mr Safe) Implanted:Qty: 1 on 10/28/2019 by Russel Otto MD at [facility] Plate Implant Right: Knee [employer] 05/02/2029 [id number] / / [id number] Knee Fem Comp Cmntd Right Postrr Stblzd Briseyda Ii Sz 5 [id number] (Right Knee-Mr Safe) Implanted:Qty: 1 on 10/28/2019 by Russel Otto MD at [facility] Total Joint Implant Right: Knee [employer] 03/22/2028 [id number] / / [id number] Knee Tibial Insert Fixed Size 3 4 Posterior Stabilized High Flex 11mm Legion [id number] (Right Knee-Mr Safe) Implanted:Qty: 1 on 10/28/2019 by Russel Otto MD at [facility] Total Joint Implant Right: Knee [employer] 01/28/2029 [id number] / / [id number] Left Knee Replacement,Mr Safe ([facility] 08/28/19) Procedures Procedure Name Priority Date/Time Associated Diagnosis Comments CT SHOULDER LEFT WO CONTRAST Routine 03/14/2024 11:52 EST Left rotator cuff tear arthropathy MA BREAST SCREENING CLOV[place] BILATERAL Routine 02/26/2024 10:21 EST Encounter for screening mammogram for malignant neoplasm of breast [facility] [place] LUMBAR INJECTION Routine 01/29/2024 13:34 EDT HEMOGLOBIN A1C Routine 01/12/2024 14:05 EDT Type 2 diabetes mellitus without complication, without long-term current use of insulin ([facility]-CMS) BASIC METABOLIC PANEL (BMP) Routine 01/12/2024 14:05 EDT Type 2 diabetes mellitus without complication, without long-term current use of insulin ([facility]) COMPLETE BLOOD COUNT Routine 01/12/2024 14:05 EDT Type 2 diabetes mellitus without complication, without long-term current use of insulin ([facility]) XR SHOULDER LEFT 2 OR MORE VIEWS Routine 01/12/2024 10:59 EDT Chronic left shoulder pain MR OUTSIDE IMAGES LEFT UPPER EXTREMITY Routine 12/18/2023 12:56 EDT COLONOSCOPY PROCEDURE Routine 09/08/2021 8:43 EDT from Last 3 Months or Most Recently Relevant to Health Maintenance Results * CT SHOULDER LEFT WO CONTRAST (03/14/2024 11:52 EST) Anatomical Region Laterality Modality Left Computed Tomogra phy 03/14/2024 12:5 0 EST Impressions 03/14/2024 12:50 EST FINDINGS / IMPRESSION: There is superior translation of the humeral head with respect to the glenoid fossa with resultant narrowing of the humeral-acromial interval. The findings indicate insufficiency of the rotator cuff apparatus due to chronic rotator cuff tendon tearing. Again seen are sequelae related to severe glenohumeral joint osteoarthrosis including marked joint space narrowing with subchondral sclerosis, subchondral cystic changes and exuberant marginal osteophytosis. There is osseous wear and remodeling most notably along the glenoid articular surface. For the purposes of estimating glenoid bone stock, the glenoid depth measures approximately 24 mm at its midportion. The glenoid version is near neutral. There is severe acromioclavicular joint osteoarthrosis. There are multilevel advanced degenerative changes in the partially included spine, but with this region incompletely assessed. The bones are diffusely osteopenic. Unenhanced images show evidence of a prominent glenohumeral joint effusion as well as prominent fluid distention of the subacromial, subdeltoid and subcoracoid bursal spaces with associated findings suggestive of synovial proliferative changes and hypertrophic synovitis in these areas. Also, with fluid distention of the long head biceps tendon sheath. There is severe atrophy and fatty replacement of the infraspinatus muscle, with milder atrophy and fatty infiltration involving the supraspinatus muscle. Partially included is a finding suggestive of a moderate size hiatal hernia, but incompletely assessed. Please correlate. If indicated a CT of the chest can be obtained for further evaluation. Breathing artifact compromises evaluation of the partially included left lung in some areas including assessment for pulmonary nodules, though with multiple scattered small pulmonary nodules noted, the largest measuring 5 mm in size (for example series 201 # 386, and series 201 # 310), nonspecific. Please correlate accordingly. Consider chest CT for more complete assessment. Hazy and linear opacities suggestive of atelectasis and/or scarring are also noted in the partially included lung. ?? There is atherosclerotic calcific disease involving the partially included aortic arch and in the incompletely imaged coronary arteries. The obtained 3D reconstructions confirm the above-described osseous findings. 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 No intravenous contrast administered. 3D reformatted images were obtained, reconstructed on an independent workstation, adjusted as necessary and reviewed at the time of interpretation. Resulting Agency Comment [id number] Procedure Note Kevin Rapp MD - 03/14/2024 EXAM/TECHNIQUE: 03/14/2024 11:[address] SHOULDER LEFT WO CONTRAST HISTORY: left shoulder arthritis, CT scan for preoperative planning dueto glenoid bone deformity, please follow Matchpoint protocol; Shoulderpain, chronic, erosive osteoarthritis suspected, xray done; left shoulderarthritis, CT scan for preoperative planning due to glenoid bonedeformity, please follow Matchpoint protocol Technique: CT imaging of the left shoulder is performed. No intravenouscontrast administered. 3D reformatted images were obtained, reconstructed on an independentworkstation, adjusted as necessary and reviewed at the time ofinterpretation. IMPRESSION FINDINGS / IMPRESSION: There is superior translation of the humeral head with respect to theglenoid fossa with resultant narrowing of the humeral-acromial interval.The findings indicate insufficiency of the rotator cuff apparatus due tochronic rotator cuff tendon tearing. Again seen are sequelae related to severe glenohumeral jointosteoarthrosis including marked joint space narrowing with subchondralsclerosis, subchondral cystic changes and exuberant marginalosteophytosis. There is osseous wear and remodeling most notably along theglenoid articular surface. For the purposes of estimating glenoid bone stock, the glenoid depthmeasures approximately 24 mm at its midportion. The glenoid version isnear neutral. There is severe acromioclavicular joint osteoarthrosis. There are multilevel advanced degenerative changes in the partiallyincluded spine, but with this region incompletely assessed. The bones are diffusely osteopenic. Unenhanced images show evidence of a prominent glenohumeral joint effusionas well as prominent fluid distention of the subacromial, subdeltoid andsubcoracoid bursal spaces with associated findings suggestive of synovialproliferative changes and hypertrophic synovitis in these areas. Also,with fluid distention of the long head biceps tendon sheath. There is severe atrophy and fatty replacement of the infraspinatus muscle,with milder atrophy and fatty infiltration involving the supraspinatusmuscle. Partially included is a finding suggestive of a moderate size hiatalhernia, but incompletely assessed. Please correlate. If indicated a CT ofthe chest can be obtained for further evaluation. Breathing artifact compromises evaluation of the partially included leftlung in some areas including assessment for pulmonary nodules, though withmultiple scattered small pulmonary nodules noted, the largest measuring 5mm in size (for example series 201 # 386, and series 201 # 310),nonspecific. Please correlate accordingly. Consider chest CT for morecomplete assessment. Hazy and linear opacities suggestive of atelectasisand/or scarring are also noted in the partially included lung. There is atherosclerotic calcific disease involving the partially includedaortic arch and in the incompletely imaged coronary arteries. The obtained 3D reconstructions confirm the above-described osseousfindings. [id number] us Vishal Castillo MD IMG CT ORDERABLES Final R esult * MA BREAST SCREENING CLOVIS BILATERAL (02/26/2024 10:21 EST) Anatomical Region Laterality Modality Breast Bilateral Mammography 02/26/2024 11:3 8 EST Impressions 02/26/2024 11:38 EST Negative, no evidence of malignancy. RECOMMENDATION: Routine screening mammography is recommended. OVERALL ASSESSMENT: BI-RADS 1: Negative These results will be communicated to your patient via a lay letter from Radiology. If any additional imaging is needed we will contact your patient directly. [facility] [address] [place], [place] [address] I have personally reviewed the images and the above interpretation and agree with the findings. [id number] Narrative 02/26/2024 11:38 EST MA BREAST SCREENING CLOVIS BILATERAL ??02/26/2024 10:00 AM History: routine Comparison: ??Comparison has been made to previous images . ? Technique: Routine 3D tomosynthesis with synthesized 2D views with CAD Breast Composition: There are scattered areas of fibroglandular density. Bilateral Breast Findings: ??No significant masses, calcifications or other abnormalities are seen. Resulting Agency Comment [id number] Procedure Note Mariajose Cabrera MD - 02/26/2024 MA BREAST SCREENING CLOVIS BILATERAL 02/26/2024 10:00 AM History: routine Comparison: Comparison has been made to previous images . Technique: Routine 3D tomosynthesis with synthesized 2D views with CAD Breast Composition: There are scattered areas of fibroglandular density. Bilateral Breast Findings: No significant masses, calcifications or otherabnormalities are seen. IMPRESSION Negative, no evidence of malignancy. RECOMMENDATION: Routine screening mammography is recommended. OVERALL ASSESSMENT: BI-RADS 1: Negative These results will be communicated to your patient via a lay letter fromRadiology. If any additional imaging is needed we will contact yourpatient directly. [facility] [address] [place], [place] [address] I have personally reviewed the images and the above interpretation andagree with the findings. [id number] us Barbaraclarice Conway URBAN PLANNING PROFESSOR IMG MAMMOGRAPHY ORDERABLES Fi nal Result * [facility] [place] LUMBAR INJECTION (01/29/2024 13:34 EDT) Narrative 01/29/2024 13:35 EDT This is a non-reportable exam. us Dickson Brotherstikashira MBBS IMG OTHER IMAGING ORDERABLES Final Result * (ABNORMAL) COMPLETE BLOOD COUNT (01/12/2024 14:05 EDT) [facility] WBC 6.20 4.00 - 12.40 K/cmm 01/12/2024 14:57 [facility] RBC 3.77(L) 3.86 - 5.04 M/cmm 01/12/2024 14:57 [facility] Hemoglobin 11.1(L) 11.6 - 15.2 g/dL 01/12/2024 14:57 [facility] HCT 33.6(L) 34.9 - 44.4 % 01/12/2024 14:57 [facility] MCV 89 81 - 98 fL 01/12/2024 14:57 [facility] MCH 29.4 26.7 - 33.3 pg 01/12/2024 14:57 [facility] MCHC 33.0 32.1 - 35.9 g/dL 01/12/2024 14:57 [facility] RDW-CV 13.0 <14.7 % 01/12/2024 14:57 [facility] RDW-SD 42.6 <50.4 fl 01/12/2024 14:57 [facility] PLT 260 141 - 377 K/cmm 01/12/2024 14:57 [facility] MPV 10.0 9.5 - 12.7 fL 01/12/2024 14:57 [facility] Blood VENOUS BLOOD / Unknown Venipuncture / Unknown 01/12/2024 14:05 EDT 01/12/2024 14:49 EDT Vishal Castillo MD HEMATOLOGY & PF4 ORDERABL ES Final Result Performing Organization Address [facility]/ZIP Co de Phone Number [facility] [address] [place] [address] * (ABNORMAL) HEMOGLOBIN A1C (01/12/2024 14:05 EDT) Hemoglobin A1c 5.9(H) <5.7 % 01/12/2024 17:17 EDT [facility] Comment: Glycemic Status References: Normal: ??<5.7% Pre-Diabetes: ??5.7% - 6.4% Diagnostic of Diabetes: ??> or = 6.5% (if confirmed) Est Avg Glucose 123 mg/dL 17:17 EDT [facility] Comment:The eAG represents t he A1c result expressed as average glucose in mg/dL. Blood VENOUS BLOOD / Unknown Venipuncture / Unknown 01/12/2024 14:05 EDT 01/12/2024 14:49 EDT us Vishal Castillo MD CHEMISTRY & BLOOD GAS ORD ERABLES Final Result Performing Organization Address City/[facility]/ZIP Co de Phone Number [facility] [address] [place] [address] * BASIC METABOLIC PANEL (BMP) (01/12/2024 14:05 EDT) Sodium 140 136 - 145 mmol/L 01/12/2024 15:33 EDT [facility] Potassium 3.9 3.5 - 5.0 mmol/L 01/12/2024 15:33 EDT [facility] Chloride 102 96 - 110 mmol/L 01/12/2024 15:33 EDT [facility] CO2 Total 27 22 - 32 mmol/L 01/12/2024 15:33 EDT [facility] Anion Gap 11 5 - 14 mmol/L 01/12/2024 15:33 EDT [facility] Glucose 93 70 - 99 mg/dl 01/12/2024 15:33 EDT [facility] Calcium 9.3 8.5 - 10.5 mg/dL 01/12/2024 15:33 EDT [facility] BUN 18 10 - 26 mg/dL 01/12/2024 15:33 T [facility] Creatinine 0.87 0.52 - 1.04 mg/dL 01/12/2024 15:33 EDT [facility] eGFR 69 >60 mL/min/1.73 m2 01/12/2024 15:33 T [facility] Blood VENOUS BLOOD / Unknown Venipuncture / Unknown 01/12/2024 14:05 EDT 01/12/2024 14:55 EDT Vishal Castillo MD CHEMISTRY & BLOOD GAS ORD ERABLES Final Result [facility] [address] [place] [address] * XR SHOULDER LEFT 2 OR MORE VIEWS (01/12/2024 10:59 EDT) Anatomical Region Laterality Modality Left Computed Radiogr aphy 01/18/2024 23:1 4 EDT Impressions 01/18/2024 23:14 EDT FINDINGS / IMPRESSION: 3 views of the left shoulder show no evidence of acute fracture or dislocation. There are however severe degenerative changes in the glenohumeral joint with partial superior migration of the humeral head with respect to the glenoid resulting in narrowing of the acromiohumeral distance and suggesting insufficiency of the rotator cuff apparatus, overall appearance likely combination of degenerative osteoarthrosis with superimposed changes of rotator cuff arthropathy. Moderate degenerative changes seen in the acromioclavicular joint. Advanced multilevel degenerative changes seen in portions of the included spine. There is diffuse osteopenia. Soft tissues are grossly unremarkable. [id number] Narrative 01/18/2024 23:14 EDT EXAM/TECHNIQUE: XR SHOULDER LEFT 2 OR MORE VIEWS ??01/12/2024 10:44 AM HISTORY: AP, grashey mag marker, supine axillary lateral COMPARISON: Left shoulder radiographs dated May 23, 2022 and September 04, 2020. Resulting Agency Comment [id number] Procedure Note Roque Kay MD - 01/18/2024 EXAM/TECHNIQUE: XR SHOULDER LEFT 2 OR MORE VIEWS 01/12/2024 10:44 AM HISTORY: AP, grashey mag marker, supine axillary lateral COMPARISON: Left shoulder radiographs dated May 23, 2022 and August. IMPRESSION FINDINGS / IMPRESSION: 3 views of the left shoulder show no evidence of acute fracture ordislocation. There are however severe degenerative changes in theglenohumeral joint with partial superior migration of the humeral headwith respect to the glenoid resulting in narrowing of the acromiohumeraldistance and suggesting insufficiency of the rotator cuff apparatus,overall appearance likely combination of degenerative osteoarthrosis withsuperimposed changes of rotator cuff arthropathy. Moderate degenerativechanges seen in the acromioclavicular joint. Advanced multileveldegenerative changes seen in portions of the included spine. There isdiffuse osteopenia. Soft tissues are grossly unremarkable. [id number] Vishal Castillo MD IMG DIAGNOSTIC IMAGING OR DERABLES Final Result * MR OUTSIDE IMAGES LEFT UPPER EXTREMITY (12/18/2023 12:56 EDT) Narrative 01/12/2024 12:57 EDT This is a non-reportable exam. External Imaging IMG OTHER IMAGING ORDERABLES Fi nal Result * COLONOSCOPY PROCEDURE (09/08/2021 8:43 EDT) Anatomical Region Laterality Modality Endoscopy Narrative 09/08/2021 8:43 EDT Procedure Performed Colonoscopy Indications for Exam Surveillance, ??History of malignant rectal polyps Procedure Technique A physical exam was performed. Informed consent was obtained from the patient after explaining all the risks (perforation, bleeding, missed findings, injury to nearby organs, infection and adverse effects to the medicine), benefits and alternatives to the procedure which the patient appeared to understand and so stated. ??The patient was connected to the monitoring devices and placed in the left lateral position. Continuous oxygen was provided with a nasal cannula and IV medicine administered thru an indwelling cannula. After adequate sedation was achieved, a digital exam was performed and the colonoscope introduced into the rectum and advanced under direct visualization to the cecum. The cecum was identified by visual landmarks. The endoscope was subsequently removed slowly while carefully examining the color, texture, anatomy, and integrity of the mucosa on withdrawal. Retroflexion was performed in the rectum: Yes. The patient was subsequently transferred to the recovery area in satisfactory condition. Rectal Exam:Normal Estimated Blood Loss: None Complications None Medications Versed 2 mg Demerol 75 mg Zofran 4 mg IV I was in continuous face to face attendance during the administration of moderate sedation services that were monitored by an independent trained observer who had no other duties during the procedure. ??Total sedation time was ??17 ??minutes. [place] Bowel Prep Right Colon: 3 ? Transverse Colon: 3 ? Left Colon: 2 ?Total: 8 Findings Normal Colonoscopy to the cecum. Diagnosis Normal Colonoscopy to the cecum. Recommendations Repeat colonoscopy in 5 years. This electronic signature authenticates all electronic and/or handwritten documentation, including orders, generated by the signer during the episode of care contained in this record. 09/08/2021 08:43:33 AM By Arnel Oliva Arnel Oliva MD GI PROCEDURE ORDERABLES Final Result from Last 3 Months or Most Recently Relevant to Health Maintenance Insurance [facility] MEDICARE ACO [place] Advance Directives For more information, please contact: [phone] Documents on File Type Date Recorded Patient Head Of Quality Expl anation Advance Directive 10/30/2018 10:33 [place] for Healthcare-Updated and Signed 2018-10-17 Advance Directive 12/22/2010 11:27 A/D SIG JOSH 11/02/10 * Full Code (Latest Code Status on File) Date Activated Date Inactivated Comments 10/28/2019 11:05 10/31/2019 15:21 Question Answer Comments Reason for decision includes: Full code consistent with overall plan of care Who participated in the discussion? Not Discusse d * Full Code Date Activated Date Inactivated Comments 01/04/2013 19:43 01/09/2013 15:54 * Full Code Date Activated Date Inactivated Comments 01/04/2013 9:55 01/04/2013 19:43 Care Teams Sound Engineering Technician Relationship Specialty Start Date End Date Barbara Conway, [employer] PROF[employer] [address] [place] [address] PCP - General 08/19/13
--- OUTSIDE RECORDS SUMMARY | 2024-03-18 22:08 | XMS_ITS | Encounter Summary ---
Author Organization [facility] Address [address] [place] [address] Care Team Providers Care Orthopedic Nurse Name Role Phone Barbara Conway Myla DUAL HOSE CEMENTER Primary Care Provider [phone] Encounter Details Date Type Department Care Team (Late st Contact Info) Description 01/12/2024 Orders Only [facility] Upper Extremity Program - [address] [place], [place] [phone] Arianne Dyson RN Type 2 diabetes mellitus without complication, without long-term current use of insulin ([facility]) (Primary Dx) Social History Tobacco Use Types Packs/Day Years [...] No 10/28/2019 17:00 EDMackenzie Pickard RN * Do you have difficulty dressing [...] Author No 10/28/2019 17:00 EDMackenzie Pickard RN documented as of this encounter Mental Status * Because of a physical, mental, or emotional condition, do you have serious difficulty concentrating, remembering, or making decisions? (5 years old or older) Answer Entry Date Author No 10/28/2019 17:00 EDMackenzie Pickard RN documented in this encounter Plan of Treatment Upcoming Encounters Date Type Department Care Team (Latest Contact Info) Description 03/27/2024 14:25 EST Hospital Encounter [facility] [place] [address] [place] [address] [phone] Vishal Castillo MD [address] [place] [phone] 03/27/2024 14:25 EST - 03/27/2024 17:55 EST Surgery [facility] OR [address] [place] [phone] Vishal Castillo MD [address] [place] [phone] Left Reverse Total Shoulder Arthroplasty [12914 (CPT??)] 04/08/2024 15:30 EST Post-op Visit [facility] & Upper Extremity Program - [facility] [place] [address] Vishal Castillo MD [address] [place] [phone] Scheduled Procedures Name Priority Associated Diagnoses Date/Ti me ARTHROPLASTY, SHOULDER, TOTAL Left rotator cuff tear arthropathy 03/27/2024 14:25 EST documented as of this encounter Results * (ABNORMAL) HEMOGLOBIN A1C (01/12/2024 14:05 EDT) Hemoglobin A1c 5.9(H) <5.7 % 01/12/2024 17:[address] [facility] Comment: Glycemic Status References: Normal: ??<5.7% Pre-Diabetes: ??5.7% - 6.4% Diagnostic of Diabetes: ??> or = 6.5% (if confirmed) Est Avg Glucose 123 mg/dL 17:[address] [facility] Comment:The eAG represents t he A1c result expressed as average glucose in mg/dL. Blood VENOUS BLOOD / Unknown Venipuncture / Unknown 01/12/2024 14:05 EDT 01/12/2024 14:49 EDT us Vishal Castillo MD CHEMISTRY & BLOOD GAS ORD ERABLES Final Result [facility] [address] [place] [address] * BASIC METABOLIC PANEL (BMP) (01/12/2024 14:05 EDT) Sodium 140 136 - 145 mmol/L 01/12/2024 15:[address] [facility] Potassium 3.9 3.5 - 5.0 mmol/L 01/12/2024 15:[address] [facility] Chloride 102 96 - 110 mmol/L 01/12/2024 15:[address] [facility] CO2 Total 27 22 - 32 mmol/L 01/12/2024 15:33 [facility] Anion Gap 11 5 - 14 mmol/L 01/12/2024 15:33 [facility] Glucose 93 70 - 99 mg/dl 01/12/2024 15:[address] [facility] Calcium 9.3 8.5 - 10.5 mg/dL 01/12/2024 15:33 [facility] BUN 18 10 - 26 mg/dL 01/12/2024 15:33 [facility] Creatinine 0.87 0.52 - 1.04 mg/dL 01/12/2024 15:33 [facility] eGFR 69 >60 mL/min/1.73 m2 01/12/2024 15:33 [facility] Blood VENOUS BLOOD / Unknown Venipuncture / Unknown 01/12/2024 14:05 EDT 01/12/2024 14:55 EDT us Vishal Castillo MD CHEMISTRY & BLOOD GAS ORD ERABLES Final Result [facility] [address] [place] [phone] * (ABNORMAL) COMPLETE BLOOD COUNT (01/12/2024 14:05 EDT) WBC 6.20 4.00 - 12.40 K/cmm 01/12/2024 14:57 [facility] RBC 3.77(L) 3.86 - 5.04 M/cmm 01/12/2024 14:57 [facility] Hemoglobin 11.1(L) 11.6 - 15.2 g/dL 01/12/2024 14:57 [facility] HCT 33.6(L) 34.9 - 44.4 % 01/12/2024 14:57 [facility] MCV 89 81 - 98 fL 01/12/2024 14:57 [facility] MCH 29.4 26.7 - 33.3 pg 01/12/2024 14:57 [facility] MCHC 33.0 32.1 - 35.9 g/dL 01/12/2024 14:57 EDT [facility] RDW-CV 13.0 <14.7 % 01/12/2024 14:[address] [facility] RDW-SD 42.6 <50.4 fl 01/12/2024 14:[address] [facility] PLT 260 141 - 377 K/cmm 01/12/2024 14:[address] [facility] MPV 10.0 9.5 - 12.7 fL 01/12/2024 14:[address] [facility] Blood VENOUS BLOOD / Unknown Venipuncture / Unknown 01/12/2024 14:05 EDT 01/12/2024 14:49 EDT us Vishal Castillo MD HEMATOLOGY & PF4 ORDERABL ES Final Result [facility] [address] [place] [address] documented in this encounter Visit Diagnoses Diagnosis Type 2 diabetes mellitus without complication, without long-term current use of insulin ([place] [facility])- Primary Left rotator cuff tear arthropathy documented in this encounter Care Teams Orthopedic Nurse Relationship Specialty Start Date End Date Barbara Conway DUAL HOSE CEMENTER [address] [place] [address] PCP - General 08/19/13 documented as of this encounter
--- OUTSIDE RECORDS SUMMARY | 2024-03-18 22:08 | XMS_ITS | Clinical Summary ---
Author Organization [facility] Address [address] [place] [address] Care Team Providers Care Account Coordinator Name Role Phone JuanBarbara whitney Myla YOUTH CARE WORKER Primary Care Provider [phone] Allergies Active Allergy Reactions Criticality Noted Date [...] Tabs by mouth every 6 hours. 10/30/19 20 Active Additional Information Patient taking differently:1,000 mg [...] bunions, but without significant pain, bilateral bunions Encounters Date Type Department Care Team Description 03/14/2024 11:16 EST - 03/14/2024 23:59 EST Hospital Encounter [facility] [address] [place] [address] Left rotator cuff tear arthropathy Discharge Disposition: Home or Self Care 03/14/2024 8:30 EST - 03/14/2024 11:15 EST Hospital Encounter [facility] Pre-Surgical Testing [address], [place] [id number] Discharge Disposition: Home or Self Care 02/29/2024 13:15 EST Office Visit [facility] Pelvic Medicine and Reconstructive Surgery - Medical Office Building [facility] [address] [place] [address] Simi De La Cruz MD Nocturia (Primary Dx) 02/26/2024 9:34 EST - 02/26/2024 23:59 EST Hospital Encounter [facility] Breast Imaging - [facility] [address] [place], [place] [id number] Encounter for screening mammogram for malignant neoplasm of breast Discharge Disposition: Home or Self Care 02/09/2024 Telephone [facility] Hand & Upper Extremity Program - [place] [address] Arianne Dyson RN Surgery Scheduling 01/30/2024 Telephone [facility] Hand & Upper Extremity Program - [place] [address] Vishal Castillo MD Other 01/29/2024 13:00 EDT Office Visit [facility] Interventional Pain [address] [place] [address] Dickson Durham MBBS Spondylosis of lumbar region without myelopathy or radiculopathy (Primary Dx) 01/29/2024 7:54 EDT - 01/29/2024 23:59 EDT Hospital Encounter [facility] Xray [address] [place] [address] Discharge Disposition: Home or Self Care 01/12/2024 13:15 EDT Phlebotomy Only [facility] ED Center [address] [place] [address] [employer]isher, Acc Phlebotomy Type 2 diabetes mellitus without complication, without long-term current use of insulin ([facility]) 01/12/2024 11:00 EDT Office Visit [facility] Hand & Upper Extremity Program - [address] [place], [place] [id number] Vishal Castillo MD Chronic left shoulder pain (Primary Dx); Left rotator cuff tear arthropathy 01/12/2024 10:42 EDT - 01/12/2024 23:[address] [facility] [address] Xray [address] [place] [address] Chronic left shoulder pain Discharge Disposition: Home or Self Care 01/12/2024 Telephone [facility] Hand & Upper Extremity Program - [address] [place], [place] [phone] Vishal Castillo MD Appointment Related 01/12/2024 Orders Only [facility] Hand & Upper Extremity Program [place] [address] Arianne Dyson RN Type 2 diabetes mellitus without complication, without long-term current use of insulin ([facility]) (Primary Dx) 01/08/2024 Telephone [facility] Pelvic Medicine and Reconstructive Surgery - Medical Office [facility] [address] [place] [address] Tiffanie Pedraza, RN Medications Refill 12/20/2023 Telephone [facility] Interventional Pain [address] [place], [place] [id number] Dickson Durham MBBS Appointment Related; Results 12/18/2023 - 12/18/2023 23:59 EDT Hospital Encounter [facility] Secondary Reads [place] Discharge Disposition: Home or Self Care from Last 3 Months Surgical History Surgery Date Site/Laterality Comments TUBAL LIGATION TONSILLECTOMY COLONOSCOPY COLON SURGERY colon polyp removed TOTAL KNEE ARTHROPLASTY Bilateral CATARACT REMOVAL WITH IMPLANT Bilateral Medical History Medical History Date Comments Colon polyp Knee joint replacement status No fang 03/14/24: Bilat knee replacements Bilateral bunions Nausea & vomiting Noted 03/14/24 : PONV History of general anesthesia No fang 03/14/24: PONV History of epidural anesthesia N oted 03/14/24:without issues Exercise involving walking Noted 03/14/24: Walking, exercise 3 x weekly, 1-2 FOS without any SOB Heart murmur Noted 03/14/24: Mitral valve prolapse High cholesterol Noted 03/14/24: Managed with a statin Back pain Noted 03/14/24: Lower back Arrhythmia 10/24/19 EKG NSR w ith 1st degree AV block Hypertension Noted 03/14/24: Well controlled on meds Mitral valve disease Noted 03/14: prolapsed mitral valve Diabetes mellitus (HCC-CMS) GERD (gastroesophageal reflux disease) Noted 03/14/24: Managed well on meds, She is able to lay on a flat surface without issues Anserine bursitis Right anserine tendinitis/bursitis Colon cancer (HCC-CMS) Noted : cancerous polyp removed Apr 2005 Rectal cancer (HCC-CMS) Noted : stage 1 colo rectal cancer Left rotator cuff tear arthropathy Noted 03/14/24: pending surgery 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 Last A1c 01/12/24 5.9 Concussion 2018 Noted 03/14/24: S/p Fall from stairs 2017, She is not sure if any LOC. CT scan Neg Unspecified urinary incontinence Noted 03/14/24: Wears undergarments Dependence on cane Noted 4: Due to lower back pain Wears glasses Noted 03/14/24: Family History Medical History Relation Comments Cancer Father lung cancer Breast Cancer Maternal Grandmother Diabetes Mother Early Mother Relation Status Comments Father Maternal Grandmother Mother Social History Tobacco Use Types Packs/Day Years [...] 8:56 EST Sexual Orientation Not on file Obstetrics History Para Term AB IAB SAB Ectopic Multiple Livin g Live Births 3 3 3 Date Outcome GA Total Labor Labor/2nd/3rd Weight Sex Type Anes PTL Lexis A1 A5 Name Clin Para Para Para Last Filed Vital Signs Vital Sign Reading [...] Body Mass Index 27.29 03/14/2024 0840 EST Plan of Treatment Upcoming Encounters Date Type Department Care Team (Latest Contact Info) Description 03/27/2024 14:25 EST Hospital Encounter [facility] Main [place] [address] [place] [address] Vishal Castillo MD [address] [place] [phone] 03/27/2024 14:25 EST - 03/27/2024 17:55 EST Surgery [facility] OR [address] [place], [place] [id number] Vishal Castillo MD [address] [place] [address] Left Reverse Total Shoulder Arthroplasty [12874 (CPT??)] 04/08/2024 15:30 EST Post-op Visit [facility] Hand & Upper Extremity Program - [address] [place] [address] Vishal Castillo MD [address] [place] [address] Scheduled Procedures Name Priority Associated Diagnoses Date/Ti me ARTHROPLASTY, SHOULDER, TOTAL Left rotator cuff tear arthropathy 03/27/2024 14:25 EST Health Maintenance Due Date Last Done Comments Hepatitis C Screen 1945 Fall Risk Screening 2011 RSV Immunization ( o r 60+ Years) (1 - 1-dose 75+ series) 2021 Advance Directive Review 10/31/2023 COVID-19 Vaccine (2023- season) 2023 Colonoscopy (Colon Cancer Screening) 09/08/2026 09/08/2021, 08/31/2016, 07/24/2013 Medical Devices Implanted Type Area Dyslexia Teacher Device Identifier Shelf Expiration Date Model / Serial / Lot Cement Bone High Viscosity Tobramycin Radiopaque Single Dose Jean 40gm Simplex [id number] (Right Knee-Mr Safe) Implanted:Qty: 2 on 10/28/2019 by Russel Otto MD at [facility] Ortho Implant Right: Knee [employer] 11/21/2020 [id number] / / [id number] Knee Tibial Baseplate Cemented Fix Right Sz4 Briseyda Ii [id number] (Right Knee-Mr Safe) Implanted:Qty: 1 on 10/28/2019 by Russel Otto MD at [facility] Plate Implant Right: Knee [employer] 05/02/2029 [id number] / / [id number] Knee Fem Comp Cmntd Right Postrr Stblzd Briseyda Ii Sz 5 [id number] (Right Knee-Mr Safe) Implanted:Qty: 1 on 10/28/2019 by Russel Otto MD at [facility] Total Joint Implant Right: Knee [employer] 03/22/2028 [id number] / / [id number] Knee Tibial Insert Fixed Size 3 4 Posterior Stabilized High Flex 11mm Legion [id number] (Right Knee-Mr Safe) Implanted:Qty: 1 on 10/28/2019 by Russel Otto MD at [facility] Total Joint Implant Right: Knee [employer] 01/28/2029 [id number] / / [id number] Left Knee Replacement,Mr Safe ([facility] 08/28/19) Procedures Procedure Name Priority Date/Time Associated [...] complication, without long-term current use of insulin ([facility]) BASIC METABOLIC PANEL (BMP) Routine 01/12/2024 14:05 EDT Type 2 diabetes mellitus without complication, without long-term current use of insulin ([facility]) COMPLETE BLOOD COUNT Routine 01/12/2024 14:05 EDT Type 2 diabetes mellitus without complication, without long-term current use of insulin ([facility]) XR SHOULDER LEFT 2 OR MORE VIEWS [...] 3D reconstructions confirm the above-described osseous findings. [id number] Narrative 03/14/2024 12:50 EST EXAM/TECHNIQUE: 03/14/2024 11:46 [...] the time of interpretation. Resulting Agency Comment [id number] Procedure Note Kevin Rapp MD - 03/14/2024 [...] obtained 3D reconstructions confirm the above-described osseousfindings. [id number] Vishal Castillo MD IM CT ORDERABLES Final R esult * MA [...] needed we will contact your patient directly. [facility] [[email or web address]] Medical Ctr.- [facility] [address] [place] [address] I have personally reviewed the images and the above interpretation and agree with the findings. [id number] Narrative 02/26/2024 11:38 EST MA BREAST SCREENING CLOVIS BILATERAL ??02/26/2024 10:00 AM History: routine Comparison: ??Comparison has been made to previous images . ? Technique: Routine 3D tomosynthesis with synthesized 2D views with CAD Breast Composition: There are scattered areas of fibroglandular density. Bilateral Breast Findings: ??No significant masses, calcifications or other abnormalities are seen. Resulting Agency Comment [id number] Procedure Note Mariajose Cabrera MD - 02/26/2024 [...] is needed we will contact yourpatient directly. [facility] [[email or web address]] Medical Ctr.- [facility] [address] [place] [address] I have personally reviewed the images and the above interpretation andagree with the findings. [id number] us Barbara Conway YOUTH CARE WORKER IMG MAMMOGRAPHY ORDERABLES Fi nal Result * PAIN CLINIC FL LUMBAR INJECTION (01/29/2024 13:34 EDT) Narrative 01/29/2024 13:35 EDT This is a non-reportable exam. us Dickson PATEL IMG OTHER IMAGING ORDERABLES Final Result * (ABNORMAL) COMPLETE BLOOD COUNT (01/12/2024 14:05 EDT) WBC 6.20 4.00 - 12.40 K/cmm 01/12/2024 14:57 [facility] RBC 3.77(L) 3.86 - 5.04 M/cmm 01/12/2024 14:57 [facility] Hemoglobin 11.1(L) 11.6 - 15.2 g/dL 01/12/2024 14:57 [facility] HCT 33.6(L) 34.9 - 44.4 % 01/12/2024 14:57 [facility] MCV 89 81 - 98 fL 01/12/2024 14:57 [facility] MCH 29.4 26.7 - 33.3 pg 01/12/2024 14:57 [facility] MCHC 33.0 32.1 - 35.9 g/dL 01/12/2024 14:57 [facility] RDW-CV 13.0 <14.7 % 01/12/2024 14:57 [facility] RDW-SD 42.6 <50.4 fl 01/12/2024 14:57 [facility] PLT 260 141 - 377 K/cmm 01/12/2024 14:57 [facility] MPV 10.0 9.5 - 12.7 fL 01/12/2024 14:57 [facility] Blood VENOUS BLOOD / Unknown Venipuncture / Unknown 01/12/2024 14:05 EDT 01/12/2024 14:49 EDT us Vishal Castillo MD HEMATOLOGY & PF4 ORDERABL ES Final Result [facility] [address] [place] [address] * (ABNORMAL) HEMOGLOBIN A1C (01/12/2024 14:05 EDT) Hemoglobin A1c 5.9(H) <5.7 % 01/12/2024 17:17 [facility] Comment: Glycemic Status References: Normal: ??<5.7% Pre-Diabetes: ??5.7% - 6.4% Diagnostic of Diabetes: ??> or = 6.5% (if confirmed) Est Avg Glucose 123 mg/dL 17:17 EDT [facility] Comment:The eAG represents t he A1c result expressed as average glucose in mg/dL. Blood VENOUS BLOOD / Unknown Venipuncture / Unknown 01/12/2024 14:05 EDT 01/12/2024 14:49 EDT us Vishal Castillo MD CHEMISTRY & BLOOD GAS ORD ERABLES Final Result [facility] [address] [place] [address] * BASIC METABOLIC PANEL (BMP) (01/12/2024 14:05 EDT) Sodium 140 136 - 145 mmol/L 01/12/2024 15:33 [facility] Potassium 3.9 3.5 - 5.0 mmol/L 01/12/2024 15:33 [facility] Chloride 102 96 - 110 mmol/L 01/12/2024 15:33 [facility] CO2 Total 27 22 - 32 mmol/L 01/12/2024 15:33 [facility] Anion Gap 11 5 - 14 mmol/L 01/12/2024 15:33 [facility] Glucose 93 70 - 99 mg/dl 01/12/2024 15:33 [facility] Calcium 9.3 8.5 - 10.5 mg/dL 01/12/2024 15:33 [facility] BUN 18 10 - 26 mg/dL 01/12/2024 15:33 [facility] Creatinine 0.87 0.52 - 1.04 mg/dL 01/12/2024 15:33 [facility] eGFR 69 >60 mL/min/1.73 m2 01/12/2024 15:33 EDT [facility] Blood VENOUS BLOOD / Unknown Venipuncture / Unknown 01/12/2024 14:05 EDT 01/12/2024 14:55 EDT us Vishal Castillo MD CHEMISTRY & BLOOD GAS ORD ERABLES Final Result [facility] [address] [place] [address] * XR SHOULDER LEFT 2 OR MORE [...] diffuse osteopenia. Soft tissues are grossly unremarkable. [id number] Narrative 01/18/2024 23:14 EDT EXAM/TECHNIQUE: XR SHOULDER LEFT 2 OR MORE VIEWS ??01/12/2024 10:44 AM HISTORY: AP, grashey mag marker, supine axillary lateral COMPARISON: Left shoulder radiographs dated May 23, 2022 and September 04, 2020. Resulting Agency Comment [id number] Procedure Note Roque Kay MD - 01/18/2024 [...] isdiffuse osteopenia. Soft tissues are grossly unremarkable. [id number] Vishal Castillo MD IMG DIAGNOSTIC IMAGING OR DERABLES Final Result * MR OUTSIDE IMAGES LEFT UPPER EXTREMITY (12/18/2023 12:56 EDT) Narrative 01/12/2024 12:57 EDT This is a non-reportable exam. us External Imaging IMG OTHER IMAGING ORDERABLES Fi [...] procedure. ??Total sedation time was ??17 ??minutes. [place] Bowel Prep Right Colon: 3 ? Transverse Colon: 3 ? Left Colon: 2 ?Total: 8 Findings Normal Colonoscopy to the cecum. Diagnosis Normal Colonoscopy to the cecum. Recommendations Repeat colonoscopy in 5 years. This electronic signature authenticates all electronic and/or handwritten documentation, including orders, generated by the signer during the episode of care contained in this record. 09/08/2021 08:43:33 AM By Arnel Oliva us Arnel Oliva MD GI PROCEDURE ORDERABLES Final Result from Last 3 Months or Most Recently Relevant to Health Maintenance Insurance [facility] MEDICARE ACO [place] Advance Directives For more information, please contact: [phone] Documents on File Type Date Recorded Patient Animal Control Supervisor Expl anation Advance Directive 10/30/2018 10:33 [place] [...] Comments 01/04/2013 9:55 01/04/2013 19:43 Care Teams Account Coordinator Relationship Specialty Start Date End Date Barbara Conway NP [address] [place] [address] PCP - General 08/19/13
--- OUTSIDE RECORDS SUMMARY | 2024-03-18 22:08 | XMS_ITS | Encounter Summary ---
Author Organization [facility] Address [address] [place] [address] Care Team Providers Care Medical Videographer Name Role Phone Henri Conwayi Myla SUPERVISOR FEED MILL Primary Care Provider [phone] Reason for Visit * Reason Comments Back Pain Therapeutic lumbar r adiofrequency ablation at bilateral L3, L4, L5 / pa Auth'd exp 04/29/24 * Prior Authorization (Routine) - Authorized Specialty Diagnoses / Procedures Referred By [facility] Referred To Contact Anesthesiology / Pain Medicine Diagnoses Spondylosis without myelopathy or radiculopathy, lumbar region Therapeutic lumbar radiofrequency ablation at bilateral L3, L4, L5 Procedures CA DSTR NROLYTC AGNT PARVERTEB FCT SNGL LMBR/SACRAL CA DSTR NROLYTC AGNT PARVERTEB FCT ADDL LMBR/SACRAL PAIN CLINIC RFA [facility] Interventional Pain [address] [place] [address] Phone: tel: fax: Dickson Durham MBBS [address] [facility] [address] [place] [address] Phone: tel:[phone] fax:[phone] Referral ID Status Reason Start Date Expiration Date V isits Requested Visits Authorized [id number] Authorized 01/01/2024 04/29/2024 1 1 Encounter Details Date Type Department Care Team (Latest Contact Info) Description 01/29/2024 13:00 EDT Office Visit [facility] Interventional Pain [address] [place], [place] [id number] Dickson Durham MBBS [address] [facility] [address] [place] [address] Spondylosis of lumbar region without myelopathy or radiculopathy (Primary Dx) Social History Tobacco Use Types [...] on file documented as of this encounter Last Filed Vital Signs Vital Sign Reading Time Taken Comments Blood Pressure 127/59 01/29/2024 1338 EDT Pulse 62 01/29/2024 1338 EDT Temperature 36.1 ??C (96.9 ??F) 01/29/2024 1231 EDT Respiratory Rate 16 01/29/2024 1338 EDT Oxygen Saturation 98% 01/29/2024 1231 EDT Inhaled Oxygen Concentration - - Weight - - Height - - Body Mass Index - - documented in this encounter Functional Status * Are you [...] Mackenzie Pappas RN documented in this encounter Patient Instructions * Patient Instructions* Darlin Villasenor RN - 01/29/2024 13:00 EDT [facility] [address] [address] Patient Instructions You have had your Radiofrequency Ablation. The purpose of this procedure is to relieve or reduce your pain. The following information should help you over the next few days/weeks regarding what you may expect. Please take it easy for the rest of today. DO NOT drive a car for the remainder of the day. If you feel sore where the needle(s) entered for the block, please use ice on the area. You may leave the ice on for up to 20 minutes at a time. Do not use heat, as this can increase swelling. As long as your primary doctor has indicated no restrictions, you may take a mild pain medicine, such as acetaminophen (Tylenol), ibuprofen (Advil, Nuprin, Motrin IB, etc.) or aspirin, if needed. Please keep track of how your pain feels over the next few weeks. On average patients start to notice relief at 3-4 weeks but this can take up to 8-10 weeks to know whether this procedure was helpful. If the block causes numbness (asleep) feeling or weakness, that will wear off within several hours. If the area that the needle(s) were inserted becomes hot, red, swollen, or increasingly tender, or if you develop a fever (100.5 or greater) or chills along with these symptoms, please call our office immediately. If you develop increasingly severe back pain, continued numbness or weakness of the legs or changesin your bladder or bowel functions, please call our office at once. Instructions for follow-up: One of our nurses will be phoning you at 12 weeks to see if you are getting relief. You will also be scheduled for a follow up in 7 months with a provider. We document this in your medical record. Inorder to have this procedure repeated and approved by your insurance, we have to supply them with your results (% & months of relief). If at any time this wears off, please call us. If you have any questions about your block, please call Patient Education Topic: Method: Handout and Verbal Taught to: Patient Barriers: None Outcomes: independent and verbalized understanding Signature: DARLIN VILLASENOR RN documented in this encounter Progress Notes * Yousif Samson MA - 01/29/[address] [facility] Rooming Note Does patient have a Health Claims Examiner? yes Is patient NPO? (Solids since midnight & liquids for 4 hrs) PT has had coffee and a banana this morning, nothing for lunch Blood Thinners: Is patient on Blood Thinners? no If yes, taking? no If stopped, who authorized stopping? NA Related comments: NA Infections: Any recent infections, fever of illnesses? no If on antibiotics, is it 7-10 days past the date of completion of antibiotics? no : (for females of child-bearing age) Is there a chance current ? NA Do you have any type of implanted device? no Vaccination: Have you had or are you planning to have a vaccination in the 2 weeks? no Other: no Oswestry Low Back Disability Questionnaire Pain Intensity The pain is bad but I manage without taking pain killers (1) Personal Care (e.g. Washing, Dressing) I can look after myself normally without causing extra pain (0) Lifting Pain prevents me from lifting heavy weights, but I can manage light to medium weights if they are conveniently positioned (3) Walking Pain prevents me walking more than one mile (1) Sitting I can only sit in my favorite chair as long as I like (1) Standing Pain prevents me from standing for more than 30 minutes (3) Sleeping I can sleep well only by using medication (1) Social Life My social life is normal but increases the degree of pain (1) Travelling Pain is bad, but I manage journeys over 2 hours (2) Employment/Homemaking I can perform most of my homemaking/ job duties, but pain prevents me from performing more physically stressful activities (e.g. lifting, vacuuming) (2) * Dickson Durham MBBS - 01/29/2024 1300 EDT Patient Name: Aretha Garcia : 1945 Date of Service: 01/29/2024 Requesting physician: no referring provider Sales Compensation Analyst: AMANDA Lunsford [employer] Dispatcher: None Procedure: Therapeutic lumbar radiofrequency ablation at bilateral L3, L4, L5 Interval History: Details of the current complaint are thoroughly described in the consultation notes from no referring provider's last encounter including pain onset, location, course, workup, therapeutic attempts, and associated functional limitations. The patient reports no recent changes in the character, quality, or distribution of the pain. There are no recent onset of new associated symptoms such as changesin strength, sensation, or bladder control. All previous medical records including current medications, anticoagulation status, any signs of current infection, and new imaging were reviewed. Injection History: 01/29/2024: lumbar radiofrequency ablation at bilateral L3, L4, L5 05/17/2023: lumbar radiofrequency ablation at bilateral L3, L4, L5 04/26/2023: bilateral L3, L4, L5 MBBs 03/10/2023: bilateral L3, L4, L5 MBBs Allergies: Allergies Allergen Reactions Scopolamine halluciation Robaxin [Methocarbamol] halluciation Sulfa (Sulfonamide Antibiotics) Rash Tramadol halluciation Zocor [Simvastatin] Other (See Comments) severe leg cramps Review of Systems: Negative for any fever, chills, nausea/vomiting, headaches, chest pain, palpitations, shortness of breath, bladder/bowel incontinence. No easy bruising, bleeding, anti-coagulation or known recent infections. Physical Exam: Vitals: BP 132/62 (BP Cuff Location: Left arm, BP Patient Position: Sitting, BP Cuff Sizes: Adult, long) Pulse 66 Temp 36.1 ??C (96.9 ??F) (Tympanic) Resp 16 SpO2 98% General: Patient is alert and oriented, no acute distress Lungs: symmetric chest rise, no evidence of labored breathing Skin: clear, warm, dry and intact and no rashes, bruises or petechiae noted Assessment: 1. Spondylosis of lumbar region without myelopathy or radiculopathy Plan: Ms. Aretha Garcia is a 78 y.o. female that presents to the pain clinic to undergo lumbar radiofrequency ablation in regards to her chronic back pain. All risks, benefits, and alternatives were thoroughly explained to Ms. Aretha Garcia who verbally communicated understanding of the management plan. Proceed with radiofrequency ablation at bilateral L3, L4, L5 Follow up: We will follow up with the patient in 6 weeks by phone to assess the response to the RF ablation that was done today. Procedure: The patient gave informed written consent to proceed with this procedure following a detailed discussion of the risks and benefits associated with lumbar radiofrequency ablation including but not limited to infection, bleeding, intrathecal injection, allergic reaction, further exacerbation of current symptoms, neurological injury, and lack of efficacy. The patient was then placed in prone position, the skin over the lumbosacral area was prepped with chlorhexadine, and the site was marked and draped with sterile towels. Strict sterile technique was maintained throughout the procedure. A timeout was performed with full staff present to identify the patient, verify the procedure being performed, and review allergies Flouroscopy was used to identify the appropriate lumbar anatomy. The skin and subcutaneous tissue were anesthetized with 2% lidocaine. A 10 cm RFA cannula with 10 mm active tip was inserted under fluoroscopic guidance to contact the junction of the superior articulating process and transverse process at the aforementioned levels. Once periostium was contacted, the RFA cannula were advance slightly anterior and cephalad to place the active tips parallel to the targeted nerves. Final needle position was confirmed with biplanar fluoroscopy. Sensory testing was performed at 50 Hz at each location. Motor testing was performed using 2 Hz and was negative for lower extremity muscle contraction at all levels up to 2.5 volts. The testing results are documented in the table below. After proper sensory and motor testing was completed, each site was anesthetized with one ml lidocaine 2%. Thermal radiofrequency ablation was then performed at 80 degrees Celsius for 150 seconds. After treatment was completed, 1 ml of 0.5% bupivacaine and 13mg DepoMedrol was injected at each site and the needles were withdrawn. 3 RFA cannula were used for this procedure. There was no paresthesia during needle placement and aspiration was negative at all times. The patient tolerated the procedure well and there were no apparent complications. Written and verbal discharge instructions were reviewed with the patient prior to discharge. RFA parameters: Please see additional documentation in this encounter. * Darlin Villasenor RN - 01/29/2024 1300 EDT ATTENTION: An active Time-Out initiated by the Provider requires that all members of the proceduralsupport team are present and must stop activity until the Time-Out is completed. The Nurse will have in their possession the signed consent to compare to the verbal verification ofthe items below: [Verified] Patient identifier #1: Full Name [Verified] Patient Identifier #2: Date of [Verified] No allergy to sterile prep products, steroids, local anesthetics, band-aids, or contrastdye [Verified] Full team and patient verification of location of pain and procedure to be performed [Verified] Site marked (Region and/or Laterality) [Verified] Presence of Implantable Devices [Verified] Safety devices are in place (Grounding pad, X-rays available, and/or Magnet) [Verified] Consent signed and matches planned procedure and site marking [Verified] Active verbal communication by the entire procedural team was completed. Thermal RFA parameters: Temp (Celcius): 80 Time (Seconds): 150 xxxxxxxxxxxxxxxxxx xxxxxxxxxxxxxxxxxxxx xxxxxxxxxxxxxxxxxxxx Location Sensory: 50 Hz Motor: 2 Hz Rt Sacral Ala Kiarra Negative xxxxxxxxxxxxxxxxxxx xxxxxxxxxxxxxxxxxxxxx xxxxxxxxxxxxxxxxxxxxx Rt L5 Kiarra Negative xxxxxxxxxxxxxxxxxxx xxxxxxxxxxxxxxxxxxxxx xxxxxxxxxxxxxxxxxxxxx Rt L4 Kiarra Negative xxxxxxxxxxxxxxxxxxx xxxxxxxxxxxxxxxxxxxxx xxxxxxxxxxxxxxxxxxxxx Lt Sacral Ala Kiarra Negative xxxxxxxxxxxxxxxxxxx xxxxxxxxxxxxxxxxxxxxx xxxxxxxxxxxxxxxxxxxxx Lt L5 Kiarra Negative xxxxxxxxxxxxxxxxxxx xxxxxxxxxxxxxxxxxxxxx xxxxxxxxxxxxxxxxxxxxx Lt L4 Kiarra Negative xxxxxxxxxxxxxxxxxxx xxxxxxxxxxxxxxxxxxxxx xxxxxxxxxxxxxxxxxxxxx documented in this encounter Plan of Treatment Upcoming Encounters Date Type Department Care Team (Latest Contact Info) Description 03/27/2024 14:25 EST Hospital Encounter [facility] OR [address] [place] [id number] Vishal Castillo MD [address] [place] [phone] 03/27/2024 14:25 EST - 03/27/2024 17:55 EST Surgery [facility] OR [address] [place] [id number] Vishal Castillo MD [address] [place] [phone] Left Reverse Total Shoulder Arthroplasty [73429 (CPT??)] 04/08/2024 15:30 EST Post-op Visit [facility] Upper Extrem[facility] - [address] [facility] [place] [address] Vishal Castillo MD [address] [place] [phone] Scheduled Procedures Name Priority Associated Diagnoses Date/Ti me ARTHROPLASTY, SHOULDER, TOTAL Left rotator cuff tear arthropathy 03/27/2024 14:25 EST documented as of this encounter Visit Diagnoses Diagnosis Spondylosis of lumbar region without myelopathy or radiculopathy- Primary Lumbosacral spondylosis without myelopathy Left rotator cuff tear arthropathy documented in this encounter Administered Medications Inactive Administered Medications - up to 3 most recent administrations Medication Order MAR Action Action Date Dose Rate Site BUPivacaine (PF) (MARCAINE) 0.5% injection 4 mL 4 mL, radha-neural, NOW X1, 1 dose, On Mon01/29/24 at 1345, Routine Given by Other 01/29/2024 13:37 EDT 4 mL methylPREDNISolone ACETATE (DEPO-MEDROL) injection 80 mg 80 mg, radha-neural, NOW X1, 1 dose, On Mon01/29/24 at 1345, Routine Given by Other 01/29/2024 13:37 EDT 80 mg documented in this encounter Care Teams Medical Videographer Relationship Specialty Start Date End Date Barbara Conway, [place] [address] [place] [address] PCP - General 08/19/13 documented as of this encounter
--- OUTSIDE RECORDS SUMMARY | 2024-03-18 22:08 | XMS_ITS | Continuity of Care Document ---
Author Organization [facility] Address [address] [place] [address] Phone Care Team Providers Care Claims Configuration Analyst Name Role Phone Barbara Conway Primary Care Provider Barbara Conway Attending Provider Frances Millard Attending Provider Chief Complaint and Reason for Visit Chief Complaint Lab Provider Based Billing Lab Allergies, Adverse Reactions, Alerts Allergen Type [...] Active 1000 MG PO TWICE A DAY [facility] 2016 11:09am Ibuprofen (Motrin Ib) 200 [...] PO DAILY 5 5 r 2018 [facility] Fluticasone Propionate Active 1 SPR NA Q12H 9.9 r 2018 12:49pm administer into each nostril Guaifenesin Disconti nued 400 MG PO .q8hr 15 5 r 2018 12:49pm [facility] er 2018 1:08am Benzonatate Disconti nued 100 MG PO every day at bedtime 14 r 2018 12:51pm Januar y 2020 11:15a m Immunizations Immunization Event Date Not Given Reason Dose Number Lease Out Man Lot Number Vaccine Information Statement (VIS) Detail Tdap April 28, 2020 [id number] Medical Equipment Device Date Implanted Device Details LENS [id number] 19.5 June 29, 2016 LENS [id number] 19.5 September 07, 2016 Relevant Diagnostic Tests and/or Laboratory Data Laboratory Results Test Date/Time Result Interpretation Reference Range Result Comment Performing Site Sodium Level November 16, 2020 11:17am 137 mmol/L 137-145 [facility] [address] [facility] [address] Potassium Level November 16, 2020 11:17am 4.6 mmol/L 3.6-5.0 [facility] [address] [facility] [address] Chloride Level November 16, 2020 11:17am 103 mmol/L 98-107 [facility] [address] [facility] [address] Carbon Dioxide Level November 16, 2020 11:17am 25 mmol/L 22-30 [facility] [address] [facility] [address] Anion Gap November 16, 2020 11:17am 9 7-16 [facility] [address] [facility] [address] Blood Urea Nitrogen November 16, 2020 11:17am 22 mg/dL 7-17 [facility] [address] [facility] [address] Creatinine November 16, 2020 11:17am 1.30 mg/dL 0.52-1.04 [facility] [address] [facility] [address] Glomerular Filtration Rate Calc November 16, 2020 11:17am 40 mL/min >60.0 [facility] [address] [facility] [address] Glucose Level November 16, 2020 11:17am 113 mg/dL 70-100 [facility] [address] [facility] [address] Calcium Level November 16, 2020 11:17am 9.6 mg/dL 8.4-10.2 [facility] [address] [facility] [address] Hemoglobin A1c Percent March 18, 2020 11:20am [...] achieved without excessive hypoglycemia. [facility] [address] [facility] [address] Estimated Average Glucose mg/dL March 18, 2020 11:20am 128 mg/dL [facility] [address] [facility] [address] Vital Signs Vital Reading Result Reference Range [...] 10:15am BMI (Body Mass Index) 31.6 kg/m2 Harriett kraft 2020 10:15am Advance Directives Advance Directive Response [...] 2016 9:06am Pt has a Power of Pickle Maker? Yes 2016 9:06am Do we have a copy on file here at [facility]? Yes June 29, 2016 9:06am Insurance Providers Guarantor BRYCE Anibal LIZ Address [address] [facility] [address] [facility] [address] Contact Info. Home Phone: Payer Policy Id Coverage Id Subscriber's Name Subscriber Id Effective Date Expiration Date BLUE CROSS OUT OF STATE [id number] BRYCE Anibal HILL [id number] MEDICARE OUT (DO NOT USE) [id number] BRYCE HILL [id number] 2011 MEDICARE PART A AND B COVERAGE [id number] BRYCE Anibal LIZ [id number] SELF PAY Self N/A [facility] [id number] BRYCE Anibal LIZ [id number] [facility] (DO NOT USE) [id number] BRYCE Anibal HILL [id number] 2016 Encounters Encounter Location(s) Arrival/Admit Date Discharge/Depart Date Provider(s) Departed Clinical [facility] March 18, 2020 11:00am March 18, 2020 11:01am Barbara HUTCHISON Departed Emergency [facility]gent [facility] April 28, 2020 11:07am April 28, 2020 12:05pm null Departed [facility]Prov [facility] April 28, 2020 1:00pm April 28, 2020 2:00pm PIPER Millard Departed Clinical [facility] November 16, 2020 11:02am November 16, 2020 11:03am Barbara HUTCHISON Plan of Treatment Future Tests Future scheduled test information is unavailable Pending Tests Pending diagnostic test information is unavailable Future Visits Future appointment information is unavailable Referrals to Other Providers Reason for Referral Referral Start Date Provider Provider Contact Information Provider Address Barbara Zoraida TIPTONP Work Phone: [address] [address] Future Procedures Future procedure information is unavailable Future Medications Future medication information is unavailable Patient Instructions Wound Care (DC) COVID 19 General Instructions- decrease the spread of coronavirus ([facility])
--- OUTSIDE RECORDS SUMMARY | 2024-03-18 22:08 | XMS_ITS | Encounter Summary ---
Author Organization [facility] Address [address] [place] [address] Care Team Providers Care Field Producer Name Role Phone Barbara Conway Myla TECHNICAL INSPECTOR Primary Care Provider [phone] Reason for Visit * Reason Onset Date Comments Other 01/30/2024 Encounter Details Date Type Department Care Team (Late st Contact Info) Description 01/30/2024 Telephone [facility] Hand & Upper Extremity Program - [address] [address] Vishal Castillo MD [address] [place] [address] Other Social History Tobacco Use Types Packs/Day Years [...] Telephone Encounter - Arianne Dyson RN - 01/31/2024 0907 EDT Returned call to ArethaPam RAMIREZ advising that her surgery will be in March- dates at [facility] not available yet, will call her when they become available. * Telephone Encounter - Jason Dinh - 01/30/2024 1202 EDT Reason for Call: Other Summary: Patient calling to speak with Ita about surgery with Dr. Castillo. Shoulder CT is scheduled 03/14/24 so she is wondering about a surgery date. Phone number confirmed. You can leave a detailed message if she doesn't answer. Appointment Offered? Stella DINH 01/30/2024 12:02 documented in this encounter Plan of Treatment Upcoming Encounters Date Type Department Care Team (Latest Contact Info) Description 03/27/2024 14:25 EST Hospital Encounter [facility] OR [address] [place], [place] [id number] Vishal Castillo MD [address] [place] [phone] 03/27/2024 14:25 EST - 03/27/2024 17:55 EST Surgery [facility] OR [address] [place], [place] [phone] Vishal Castillo MD [address] [place] [phone] Left Reverse Total Shoulder Arthroplasty [50076 (CPT??)] 04/08/2024 15:30 EST Post-op Visit [facility] Hand & Upper Extremity Program - [address] [place] [address] Vishal Castillo MD [address] [place] [phone] Scheduled Procedures Name Priority Associated Diagnoses Date/Ti me ARTHROPLASTY, SHOULDER, TOTAL Left rotator cuff tear arthropathy 03/27/2024 14:25 EST documented as of this encounter Visit Diagnoses Not on filedocumented in this encounter Care Teams Field Producer Relationship Specialty Start Date End Date Barbara Conway, TECHNICAL INSPECTOR [address] [place], [place] [id number] PCP - General 08/19/13 documented as of this encounter
--- OUTSIDE RECORDS SUMMARY | 2024-03-18 22:08 | XMS_ITS | Encounter Summary ---
Author Organization [facility] Address [address] [place] [address] Care Team Providers Care Hospice 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 Name Role Phone Barbara Conway TECHNICAL BUYER Primary Care Provider [phone] Reason for Referral * Radiology Services (Routine/Next Available) - Authorization Not Required Specialty Diagnoses / Procedures Referred By Maryuri sarmiento Referred To Contact Diagnoses Encounter for screening mammogram for malignant neoplasm of breast Procedures MA BREAST SCREENING CLOVIS BILATERAL Barbara Conway NP [address] [place] [address] Phone: tel: fax: [facility] Referral ID Status Reason Start Date Expiration Date Visits Requested Visits Authorized [id number] Authorization Not Required 07/10/2023 1 1 Reason for Visit * Radiology Services (Routine/Next Available) - Authorization Not Required Specialty Diagnoses / Procedures Referred By Maryuri sarmiento Referred To Contact Diagnoses Encounter for screening mammogram for malignant neoplasm of breast Procedures MA BREAST SCREENING CLOVIS BILATERAL Barbara Conway NP [address] [place] [address] Phone: tel: fax: [facility] Referral ID Status Reason Start Date Expiration Date Visits Requested Visits Authorized [id number] Authorization Not Required 07/10/2023 1 1 Encounter Details Date Type Department Care Team (Latest Contact Info) Description 02/26/2024 9:34 EST - 02/26/2024 23:59 EST Hospital Encounter [facility] Breast Imaging - [facility] [address] [place] [address] Encounter for screening mammogram for malignant neoplasm of breast Discharge Disposition: Home or Self Care Social History Tobacco Use Types Packs/Day Years [...] of Assessment Author No 10/22/2021 11:35 EDT Marilea Arnold RN * Are you blind or do you have serious difficulty seeing, even when wearing glasses? Answer Date of Assessment Author No 10/28/2019 17:00 Mackenzie Vela RN * Do you have serious difficulty [...] Mackenzie Vela RN documented in this encounter Medications at Time of Discharge acetaminophen (TYLENOL) 500 mg tablet Take 2 Tabs by mouth every 6 hours. 10/30/2019 ascorbic acid (VITAMIN C) 500 mg tablet Take 1 Tab by mouth at bedtime. 01/06/2013 atenolol (TENORMIN) 50 mg tablet Take 1 Tablet by mouth every morning. atorvastatin (LIPITOR) 20 mg tablet Take 1 Tablet by mouth at bedtime. cholecalciferol, Vitamin D3, 1,000 unit tablet Take 1 Tablet by mouth daily. estradioL (ESTRACE) 0.01 % (0.1 mg/gram) vaginal cream Apply a small dab to the urethral opening 2x/week. 42.5 g 2 01/08/2024 famotidine (PEPCID) 20 mg tablet Take 1 Tablet by mouth 2 times daily. gabapentin (NEURONTIN) 100 mg capsule Take 2 Capsules by mouth as needed for Pain. Once daily in afternoon PRN gabapentin (NEURONTIN) 100 mg capsule Take 1 Capsule by mouth 7X DAILY. 4 caps in morning and 3 evening. lisinopriL (PRINIVIL) 20 mg tablet Take 1 Tablet by mouth every morning. 04/30/1987 metFORMIN (GLUCOPHAGE) 500 mg tablet Take 1 Tablet by mouth 2 times daily with breakfast and dinner. 12/29/2009 metoprolol (LOPRESSOR) 50 mg tablet Take 1 Tablet by mouth 2 times daily. nystatin (MYCOSTATIN) powder Apply topically to affected area if needed. 11/18/2023 omeprazole (PRILOSEC) 40 mg capsule Take 1 Capsule by mouth every morning. 04/30/2008 documented as of this encounter Discharge Disposition Disposition Code Departure Means Destination Home or Self Care documented in this encounter Plan of Treatment Upcoming Encounters Date Type Department Care Team (Latest Contact Info) Description 03/27/2024 14:25 EST Hospital Encounter [facility] OR [address] [place] [address] Vishal Castillo MD [address] [place] [phone] 03/27/2024 14:25 EST - 03/27/2024 17:55 EST Surgery [facility] OR [address] [place] [address] Vishal Castillo MD [address] [place] [phone] Left Reverse Total Shoulder Arthroplasty [92751 (CPT??)] 04/08/2024 15:30 EST Post-op Visit [facility] Hand & Upper Extremity Program - [address] [address] Vishal Castillo MD [address] [place] [address] Scheduled Procedures Name Priority Associated Diagnoses Date/Ti me ARTHROPLASTY, SHOULDER, TOTAL Left rotator cuff tear arthropathy 03/27/2024 14:25 EST documented as of this encounter Procedures Procedure Name Priority Date/Time Associated Diagnosis Comments MA BREAST SCREENING CLOVIS BILATERAL Routine 02/26/2024 10:21 EST Encounter for screening mammogram for malignant neoplasm of breast documented in this encounter Results * MA BREAST SCREENING CLOIVS BILATERAL (02/26/2024 10:21 EST) Anatomical Region Laterality Modality Breast Bilateral Mammography 02/26/2024 11:3 8 EST Impressions 02/26/2024 11:38 EST Negative, no evidence of malignancy. RECOMMENDATION: Routine screening mammography is recommended. OVERALL ASSESSMENT: BI-RADS 1: Negative These results will be communicated to your patient via a lay letter from Radiology. If any additional imaging is needed we will contact your patient directly. [facility] [address] [place] [address] I have personally reviewed the images and the above interpretation and agree with the findings. [id number] Narrative 02/26/2024 11:38 EST MA BREAST SCREENING CLOVIS BILATERAL ??02/26/2024 10:00 AM History: routine Comparison: ??Comparison has been made to previous images . ? Technique: Routine 3D tomosynthesis with synthesized 2D views with CAD Breast Composition: There are scattered areas of fibroglandular density. Bilateral Breast Findings: ??No significant masses, calcifications or other abnormalities are seen. Resulting Agency Comment [id number] Procedure Note Mariajose Cabrera MD - 02/26/2024 [...] is needed we will contact yourpatient directly. [facility] [address] [address] I have personally reviewed the images and the above interpretation andagree with the findings. [id number] Barbara Conway NP IMG MAMMOGRAPHY ORDERABLES Fi nal Result documented in this encounter Visit Diagnoses Diagnosis Left rotator cuff tear arthropathy- Primary Encounter for screening mammogram for malignant neoplasm of breast Other screening mammogram Left rotator cuff tear arthropathy documented in this encounter Care Teams Hospice 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 Relationship Specialty Start Date End Date Barbara Conway, TECHNICAL BUYER [address] [place] [address] PCP - General 08/19/13 documented as of this encounter
--- OUTSIDE RECORDS SUMMARY | 2024-03-18 22:08 | XMS_ITS | Encounter Summary ---
Author Organization [facility] Address [address] [place] [address] Care Team Providers Care Packaging Engineer Name Role Phone JuanBarbara whitney Myla PRISON TEACHER Primary Care Provider [phone] Reason for Visit * Reason Comments Follow-up Feels like managing well and is an improvement with estrogen using 2 x week than without estrogen. No other concerns today. Encounter Details Date Type Department Care Team (Late st Contact Info) Description 02/29/2024 13:15 EST Office Visit [facility] Pelvic Medicine and Reconstructive Surgery - Medical Office [facility] [address] [place] [address] Simi De La Cruz MD [address] [facility], [address] [place] [address] Nocturia (Primary Dx) Social History Tobacco Use Types [...] Mackenzie Pappas RN documented in this encounter Progress Notes * Simi De La Cruz MD - 02/29/2024 1315 EST Urology F/U Aretha is a 79 y.o. female with a hx of urinary incontinence who is referred bc she was found to have spinal stenosis and the thought was that they were related. Wakes up wet overnight - does not soakthrough pads. Some days leaks 5-6 pads. Seems to be related to urge on the way to the bathroom. Worse on hydrated. No leakage with cough, laugh, sneezing. Symptoms started in the spring. No sensationof incomplete. Some double voiding - small amounts the second time. No hematuria. Has UTIs 2-3/year. 4-5 cups of coffee. 2-3x nocturia - less now with evening reduction with fluid. burning with UTIs - symptoms resolve fairly quickly with keflex. 2/23: doing well. Pleased with improvement. 90% improvement. Down to one pad. No leaks at night - no more big accidents/floods. Not wet overnight. Not worried about bathrooms anymore. Still a small amount of leak if she delays a void/urge but small amounts. NoUTIs since then. Still doing decaf. 03/17: no accidents typically, some wears a pad - sometimes dribbles a tiny bit. No urgency/freq. No UTIs no hematuria. One pad in the day. Objective/Physical Exam: Vital Signs: There were no vitals taken for this visit. Exam: Gen: Alert, in no distress Data Review: NA Assessment/Plan No diagnosis found. 77 yo female with a hx of stress urinary incontinence for years. Bothered by urgency and urge incontinence. Also has UTIs. All improved with estrace and caffeine reduction. Cut down caffeine. Estrace - ok to refill F/u 2 yr Consider PFPT and meds if not better. Simi De La Cruz MD This note has been prepared with voice recognition software. Please excuse resource development director errors.' documented in this encounter Plan of Treatment Upcoming Encounters Date Type Department Care Team (Latest Contact Info) Description 03/27/2024 14:25 EST Hospital Encounter [facility] OR [address] [place] [address] Vishal Castillo MD [address] [place] [phone] 03/27/2024 14:25 EST - 03/27/2024 17:55 EST Surgery [facility] OR [address] [place] [address] Vishal Castillo MD [address] [place] [phone] Left Reverse Total Shoulder Arthroplasty [12414 (CPT??)] 04/08/2024 15:30 EST Post-op Visit [facility] Hand & Upper Extremity Program - [address] [place] [address] Vishal Castillo MD [address] [place] [phone] Scheduled Procedures Name Priority Associated Diagnoses Date/Ti me ARTHROPLASTY, SHOULDER, TOTAL Left rotator cuff tear arthropathy 03/27/2024 14:25 EST documented as of this encounter Visit Diagnoses Diagnosis Left rotator cuff tear arthropathy- Primary Nocturia- Primary Left rotator cuff tear arthropathy documented in this encounter Historical Medications * This list may reflect changes made after this encounter. blood glucose test strips 1 Strip by misc (non-drug; combo route) route as needed. blood glucose meter by misc (non-drug; combo route) route as needed. lancets 1 Lancet by misc (non-drug; combo route) route as needed. magnesium oxide 400 mg magnesium capsule Take 400 mg by mouth at bedtime. Leg cramps Cephalexin 500 mg tablet Take by mouth as needed. 1 st sign of UTI amoxicillin (AMOXIL) 500 mg capsule Take 1 Capsule by mouth if needed. Before dental appointments acetaminophen (TYLENOL 8 HOUR) 650 mg CR tablet Take 1 Tablet by mouth every morning. ergocalciferol, vitamin D2, (VITAMIN D ORAL) Take by mouth daily. 4 added in this encounter Care Teams Packaging Engineer Relationship Specialty Start Date End Date Barbara Conway NP [address] [place] [address] PCP - General 08/19/13 documented as of this encounter
--- OUTSIDE RECORDS SUMMARY | 2024-03-18 22:08 | XMS_ITS | Encounter Summary ---
Author Organization [facility] Address [address] [place] [address] Care Team Providers Care Procurement Forester Name Role Phone Barbara Conway Myla BRIEF WRITER Primary Care Provider [phone] Reason for Visit * Reason Onset Date Comments Appointment Related 01/12/2024 Encounter Details Date Type Department Care Team (Late st Contact Info) Description 01/12/2024 Telephone [facility] Hand & Upper Extremity Program - [address] [address] Vishal Castillo MD [address] [place] [phone] Appointment Related Social History Tobacco Use Types Packs/Day Years [...] encounter Miscellaneous Notes * Telephone Encounter - Emma Thayer MA - 01/12/2024 1207 EDT Called [place] [facility] to request Aretha's recent MRI report & images be faxed to our UE dept to fax # [phone] on 01/[address] Castillo request. documented in this encounter Plan of Treatment Upcoming Encounters Date Type Department Care Team (Latest Contact Info) Description 03/27/2024 14:25 EST Hospital Encounter [facility] OR [address] [place] [phone] Vishal Castillo MD [address] [place] [phone] 03/27/2024 14:25 EST - 03/27/2024 17:55 EST Surgery [facility] OR [address] [place] [address] Vishal Castillo MD [address] [place] [phone] Left Reverse Total Shoulder Arthroplasty [76374 (CPT??)] 04/08/2024 15:30 EST Post-op Visit [facility] Hand & Upper Extremity Program - [address] [place] [address] Vishal Castillo MD [address] [place] [phone] Scheduled Procedures Name Priority Associated Diagnoses Date/Ti me ARTHROPLASTY, SHOULDER, TOTAL Left rotator cuff tear arthropathy 03/27/2024 14:25 EST documented as of this encounter Visit Diagnoses Not on filedocumented in this encounter Care Teams Procurement Forester Relationship Specialty Start Date End Date Barbara Conway NP [address] [place] [address] PCP - General 08/19/13 documented as of this encounter
--- OUTSIDE RECORDS SUMMARY | 2024-03-18 22:08 | XMS_ITS | Encounter Summary ---
Author Organization [facility] Address [address] [place] [address] Care Team Providers Care 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 Plant Protection Name Role Phone ZoraidaBarbara Myla OFFICE AUDITOR Primary Care Provider Encounter Details Date Type Department Care Team (Latest Contact Info) Description 01/29/2024 7:54 EDT - 01/29/2024 23:59 EDT Hospital Encounter [facility] Xray [address] [place], [place] [phone] Discharge Disposition: Home or Self Care Social [...] of Assessment Author No 10/28/2019 17:00 EDT Loud, Brigi t, RN * Do you have serious difficulty [...] Info) Description 03/27/2024 14:25 EST Hospital Encounter [facility] OR [address] [place] [phone] Vishal Castillo MD [address] [place] [phone] 03/27/2024 14:25 EST - 03/27/2024 17:55 EST Surgery [facility] OR [address] [place] [phone] Vishal Castillo MD [address] [place] [phone] Left Reverse Total Shoulder Arthroplasty [59565 (CPT??)] 04/08/2024 15:30 EST Post-op Visit [facility] Hand & Upper Extremity Program - [address] [address] Vishal Castillo MD [address] [place] [phone] Scheduled Procedures Name Priority Associated Diagnoses Date/Ti me ARTHROPLASTY, SHOULDER, TOTAL Left rotator cuff tear arthropathy 03/27/2024 14:25 EST documented as of this encounter Procedures Procedure Name Priority Date/Time Associated Diagnosis Comments PAIN CLINIC FL LUMBAR INJECTION Routine 01/29/2024 13:34 EDT documented in this encounter Results * PAIN CLINIC FL LUMBAR INJECTION (01/29/2024 13:34 EDT) Narrative 01/29/2024 13:35 EDT This is a non-reportable exam. us [facility] IMG OTHER IMAGING ORDERABLES Final Result documented in this encounter Visit Diagnoses Not on filedocumented in this encounter Care Teams 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 Plant Protection Relationship Specialty Start Date End Date Barbara Conway, OFFICE AUDITOR [address] [place] [address] PCP - General 08/19/13 documented as of this encounter
--- OUTSIDE RECORDS SUMMARY | 2024-03-18 22:08 | XMS_ITS | Encounter Summary ---
Author Organization [facility] Address [address] [place] [address] Care Team Providers Care Physical Therapist Technician Name Role Phone Barbara Conway REED POLISHER Primary Care Provider [phone] Reason for Referral * Radiology Services (Routine/Next Available) - Authorization Not Required Specialty Diagnoses / Procedures Referred By Maryuri sarmiento Referred To Contact Diagnoses Left rotator cuff tear arthropathy Procedures CT SHOULDER LEFT WO CONTRAST Vishal Castillo MD [address] [place] [address] Phone: tel: fax: [facility] Referral ID Status Reason Start Date Expiration Date Visits Requested Visits Authorized [id number] Authorization Not Required 01/12/2024 1 1 Reason for Visit * Radiology Services (Routine/Next Available) - Authorization Not Required Specialty Diagnoses / Procedures Referred By Maryuri sarmiento Referred To Contact Diagnoses Left rotator cuff tear arthropathy Procedures CT SHOULDER LEFT WO CONTRAST Vishal Castillo MD [address] [place] [address] Phone: tel: fax: [facility] Referral ID Status Reason Start Date Expiration Date Visits Requested Visits Authorized [id number] Authorization Not Required 01/12/2024 1 1 Encounter Details Date Type Department Care Team (Latest Contact Info) Description 03/14/2024 11:16 EST - 03/14/2024 23:59 EST Hospital Encounter [facility] [address] [place] [address] Left rotator cuff tear arthropathy Discharge Disposition: Home or Self Care Social History Tobacco Use Types Packs/Day Years Used Date Smoking Tobacco: Never Passive Smoke Exposure: Never Smokeless Tobacco: Never Alcohol Use Standard [...] encounter Medications at Time of Discharge acetaminophen (TYLENOL 8 HOUR) 650 mg CR tablet Take 1 Tablet by mouth every morning. acetaminophen (TYLENOL) 500 mg tablet Take 2 Tabs by mouth every 6 hours. 10/30/2019 amoxicillin (AMOXIL) 500 mg capsule Take 1 Capsule by mouth if needed. Before dental appointments ascorbic acid (VITAMIN C) 500 mg tablet Take 1 Tab by mouth at bedtime. 01/06/2013 atenolol (TENORMIN) 50 mg tablet Take 1 Tablet by mouth every morning. atorvastatin (LIPITOR) 20 mg tablet Take 1 Tablet by mouth at bedtime. blood glucose meter by misc (non-drug; combo route) route as needed. blood glucose test strips 1 Strip by misc (non-drug; combo route) route as needed. Cephalexin 500 mg tablet Take by mouth as needed. 1 st sign of UTI cholecalciferol, Vitamin D3, 1,000 unit tablet Take [...] 4 caps in morning and 3 evening. lancets 1 Lancet by misc (non-drug; combo route) route as needed. lisinopriL (PRINIVIL) 20 mg tablet Take 1 Tablet by mouth every morning. 04/30/1987 magnesium oxide 400 mg magnesium capsule Take 400 mg by mouth at bedtime. Leg cramps metFORMIN (GLUCOPHAGE) 500 mg tablet Take 1 [...] Info) Description 03/27/2024 14:25 EST Hospital Encounter [facility] OR [address] [place], [place] [phone] Vishal Castillo MD [address] [place] [phone] 03/27/2024 14:25 EST - 03/27/2024 17:55 EST Surgery [facility] OR [address] [place], [place] [phone] Vishal Castillo MD [address] [place] [phone] Left Reverse Total Shoulder Arthroplasty [40160 (CPT??)] 04/08/2024 15:30 EST Post-op Visit [facility] Hand & Upper Extremity Program - [address] [address] iVshal Castillo MD [address] [place] [phone] Scheduled Procedures Name Priority Associated Diagnoses Date/Ti me ARTHROPLASTY, SHOULDER, TOTAL Left rotator cuff tear arthropathy 03/27/2024 14:25 EST documented as of this encounter Procedures Procedure Name Priority Date/Time Associated Diagnosis Comments CT SHOULDER LEFT WO CONTRAST Routine 03/14/2024 11:52 EST Left rotator cuff tear arthropathy documented in this encounter Results * CT SHOULDER LEFT WO CONTRAST [...] 3D reconstructions confirm the above-described osseous findings. [id number] Narrative 03/14/2024 12:50 EST EXAM/TECHNIQUE: 03/14/2024 11:46 [...] the time of interpretation. Resulting Agency Comment [id number] Procedure Note Kevin Rapp MD - 03/14/2024 [...] obtained 3D reconstructions confirm the above-described osseousfindings. [id number] us Vishal Castillo MD IMG CT ORDERABLES Final R esult documented in this encounter Visit Diagnoses Diagnosis Left rotator cuff tear arthropathy- Primary Left rotator cuff tear arthropathy Left rotator cuff tear arthropathy documented in this encounter Care Teams Physical Therapist Technician Relationship Specialty Start Date End Date Barbara Conway NP [address] [place] [address] PCP - General 08/19/13 documented as of this encounter
--- OUTSIDE RECORDS SUMMARY | 2024-03-18 22:08 | XMS_ITS | Continuity of Care Document ---
Author Organization [facility] Address [address] [place], [place] [address] Phone Care Team Providers Care Coffee Machine Technician Name Role Phone Henri Conwayi Primary Care Provider Barbara Conway Attending Provider [phone] Melvin Espinoza Emergency Provider [phone] Melvin Espinoza Attending Provider [phone] Care Teams Patient Care Team Team Status: [...] August 31, 2022 End: August 31, 2022 Visit Care Team Team Status: Inactive Member Role Status Dates Barbara Conway Primary Care Provider Active Start : April 15, 2023 End: April 15, 2023 VELMA Davis Emergency Provider Active St art: April 15, 2023 End: April 15, 2023 Visit Care Team Team Status: Inactive Member Role Status Dates Barbara Conway Primary Care Provider Active Start : April 15, 2023 End: April 15, 2023 VELMA Davis Attending Provider Active St art: April 15, 2023 End: April 15, 2023 Chief Complaint and Reason [...] Date of Response Alcohol Use No April 15, 2 023 8:26am Substance/Street Drug Use No Januar y 2020 10:43am Substance Use Treatment No April 15, 2023 8:26am substance use type does not use March 8:26am Smoking Status Never smoker April 15 2 023 8:26am Additional Data Assigned Sex Female Family [...] Active 1000 MG PO TWICE A DAY [facility] 2016 12:00am Ibuprofen (Motrin Ib) 200 mg Tablet Disconti nued 600 MG PO THREE TIMES A DAY June 23, [facility] Lisinopril Disconti nued 40 MG PO EVERY MORNING June 23, 2016 12:00am November 01, 2017 6:00am Multivitamin Disconti nued 1 TAB-CA P PO EVERY MORNING June 23, 2016 12:00am Novemb er 2018 11:11a m Atenolol Disconti nued 50 MG PO EVERY MORNING June 23, 2016 12:00am [facility] 11:12a m Magnesium Disconti nued 400 MG PO EVERY EVENING June 23, 2016 12:00am [facility] 2018 11:11a m Nitrofurantoi n Monohyd/M-Cry st (Macrobid) 100 mg Capsule Disconti nued 1 CAP PO Q12H June 23, 2016 12:00am November 01, 2017 5:59am Cephalexin Disconti nued 500 MG PO TWICE A DAY 14 October 02, 2017 11:00pm November 01, 2017 5:59am Metoprolol Succinate Active October 31, 2017 11:00pm Lisinopril Active TABLET [facility] r 2018 12:00am Prednisone Disconti nued 10 MG PO DAILY 5 5 [facility] 2018 12:00am [facility] 2018 12:08a m Fluticasone Propionate Disconti nued 1 SPR NA Q12H 9.9 Novembe r 2018 12:00am Decemb er 2022 8:14am administer into each nostril Guaifenesin Disconti nued 400 MG PO .q8hr 15 5 Novembe r 2018 12:00am [facility] 2018 12:08a m Benzonatate Disconti nued 100 MG PO every day at bedtime 14 [facility] 2018 12:00am Januar y 2020 10:15a m Gabapentin Active UNK UNK Decemb e r 2022 12:00am Benzonatate Active 100 MG PO THREE TI MES A DAY 30 Decembe r 2022 12:00am Immunizations Immunization Event Date Not Given Reason Dose Number Flexible Nanny Lot Number Vaccine Information Statement (VIS) Detail Tdap April 28, 2020 [id number] Medical Equipment Device Date Implanted Device Details LENS [id number] 19.5 June 29, 2016 LENS [id number] 19.5 September 07, 2016 Relevant Diagnostic Tests and/or Laboratory Data Laboratory Results Test Date/Time Result Interpretation Reference Range Result Comment Performing Site White Blood Count July 27, 2022 7:31am 6.33 1000/mm3 4.8-10.8 [facility] [id number] [address] [address] Red Blood Count July 27, 2022 7:31am 4.12 M/mm3 4.20-5.40 MAIN LAB [id number] [address] [address] Hemoglobin July 27, 2022 7:31am 12.0 g/dL 12.0-16.0 MAIN LAB [id number] [address] [address] Hematocrit July 27, 2022 7:31am 38.1 % 37-47 MAIN LAB [id number] [address] [address] Mean Corpuscular Volume July 27, 2022 7:31am 92.5 fL 81.0-99.0 MAIN LAB [id number] [address] [address] Mean Corpuscular Hemoglobin July 27, 2022 7:31am 29.1 pg 27-31 MAIN LAB [id number] [address] [address] Mean Corpuscular Hemoglobin Concent July 27, 2022 7:31am 31.5 g/dL 33-37 MAIN LAB [id number] [address] [address] Red Cell Distribution Width July 27, 2022 7:31am 12.8 % 11.5-14.5 MAIN LAB [id number] [address] [address] Platelet Count July 27, 2022 7:31am 261 1000/mm3 140-440 MAIN LAB [id number] [address] [address] Mean Platelet Volume July 27, 2022 7:31am 9.5 fL 7.4-10.4 MAIN LAB [id number] [address] [address] Estimated Average Glucose mg/dL July 27, 2022 7:31am 122 mg/dL MAIN LAB [id number] [address] [address] Sodium Level August 31, 2022 11:26am 140 mmol/L 137-145 MAIN LAB [id number] [address] [address] Potassium Level August 31, 2022 11:26am 4.2 mmol/L 3.6-5.0 MAIN LAB [id number] [address] [address] Chloride Level August 31, 2022 11:26am 104 mmol/L 98-107 MAIN LAB [id number] [address] [address] Carbon Dioxide Level August 31, 2022 11:26am 25 mmol/L 22-30 MAIN LAB [id number] [address] [address] Anion Gap August 31, 2022 11:26am 10 7-16 MAIN LAB [id number] [address] [address] Blood Urea Nitrogen August 31, 2022 11:26am 24 mg/dL 7-17 MAIN LAB [id number] [address] [address] Creatinine August 31, 2022 11:26am 0.90 mg/dL 0.52-1.04 MAIN LAB [id number] [address] [address] Glomerular Filtration Rate Calc August 31, 2022 11:26am 66 mL/min >60.0 MAIN LAB [id number] [address] [address] Glucose Level August 31, 2022 11:26am 113 mg/dL 70-100 MAIN LAB [id number] [address] [address] Calcium Level August 31, 2022 11:26am 9.2 mg/dL 8.4-10.2 MAIN LAB [id number] [address] [address] Cholesterol Level July 27, 2022 7:31am 155 mg/dL 59-199 MAIN LAB [id number] [address] [address] Triglycerides Level July 27, 2022 7:31am 63 mg/dL 0-149 MAIN LAB [id number] [address] [address] HDL Cholesterol July 27, 2022 7:31am 69 mg/dL 40-60 The National Cholesterol Education Program (NCEP) has set the following guidelines (reference values) for cholesterol, HDL:Low HDL: <40 mg/dLNormal: 40-60 mg/dLDesirable : >60 mg/dL MAIN LAB [id number] [address] [address] LDL Cholesterol July 27, 2022 7:31am 73.4 mg/dL 0-129 MAIN LAB [id number] [address] [address] VLDL Cholesterol July 27, 2022 7:31am 12.6 mg/dL 0-32 MAIN LAB [id number] [address] [address] Cholesterol/HDL Ratio July 27, 2022 7:31am 2.24 0-3.9 MAIN LAB [id number] [address] [address] Hemoglobin A1c Percent July 27, 2022 7:31am [...] be achieved without excessive hypoglycemia. MAIN LAB [id number] [address] [address] Influenza Type A (RT-PCR) April 15, 2023 8:52am Negative Negative MAIN LAB [id number] [address] [address] Influenza Type B (RT-PCR) April 15, 2023 8:52am Negative Negative MAIN LAB [id number] [address] [address] Respiratory Syncytial Virus (RT-PCR April 15, 2023 8:52am Negative Negative MAIN LAB [id number] [address] [address] SARS-CoV-2 RNA (RT-PCR) April 15, 2023 8:52am Negative Negative Note: This RT-PCR assay is intended for the in vitro qualitative detection of nucleic acid from SARS-CoV-2.Thi s test has not been FDA cleared or approved. This test has been authorized by the FDA under an Emergency Use Authorization (EUA) for use by authorized laboratories. Fact sheets for providers can be found at: fda.gov/media/ 085004/downloa dFact sheets for patients can be found at: fda.gov/media/ 086483/downloa dNew reagent in use as of 03/11/2021. MAIN LAB [id number] [address] [address] Vital Signs Vital Reading Result Reference Range [...] 01, 2021 9:07am Insurance Providers Guarantor BRYCE Barnett LIZ Address [address] [facility] [address] Contact Info. Home Phone: Payer Policy Id Coverage Id Subscriber's Name Subscriber Id Effective Date Expiration Date BLUE CROSS OUT OF STATE [id number] BRYCE HILL [id number] MEDICARE OUT (DO NOT USE) [id number] BRYCE Anibal LIZ [id number] 2011 MEDICARE PART A AND B COVERAGE [id number] BRYCE Anibal HILL [id number] SELF PAY Self N/A [facility] [id number] BRYCE Anibal LIZ [id number] [facility] (DO NOT USE) [id number] BRYCE HILL [id number] 2016 Encounters Encounter Location(s) Arrival/Admit Date Discharge/Depart Date Provider(s) Departed Clinical [facility] July 27, 2022 7:26am July 27, 2022 7:27am FOSTER Conway Departed Clinical [facility] August 31, 2022 10:55am August 31, 2022 10:56am FOSTER Conway Departed Emergency [facility] April 15, 2023 8:05am April 15, 2023 9:00am null Departed Physician[facility] April 15, 2023 8:08am April 15, 2023 8:09am VELMA Davis Functional Status Observation Response Date [...] Information Provider Address FOSTER Conway Work Phone: [address] [address] Future Procedures Future procedure information is unavailable Future Medications Future medication information is unavailable Patient Instructions Patient instructions are unavailable
--- OUTSIDE RECORDS SUMMARY | 2024-03-18 22:08 | XMS_ITS | Encounter Summary ---
Author Organization [facility] Address [address] [place] [address] Care Team Providers Care Shovel Mechanic Name Role Phone Henri Conwayi Myla GRADER MARKER Primary Care Provider [phone] Encounter Details Date Type Department Care Team (Latest Contact Info) Description 03/14/2024 8:30 EST - 03/14/2024 11:15 EST Hospital Encounter [facility] Pre-Surgical Testing [address] [place], [place] [address] Discharge Disposition: Home or Self Care Social [...] Sign Reading Time Taken Comments Blood Pressure - - Pulse - - Temperature - - Respiratory Rate - - Oxygen Saturation - - Inhaled Oxygen Concentration - - Weight 72.1 kg (159 lb) 03/14/2024 0840 EST Height 162.6 cm (5' 4) 03/14/2024 0840 EST Body Mass Index 27.29 03/14/2024 0840 EST documented in this encounter Functional Status * [...] Team (Latest Contact Info) Description 03/27/2024 14:25 [facility] Hospital Encounter [facility] [place] [address] [place] [id number] Vishal Castillo MD [address] [place] [phone] 03/27/2024 14:25 EST - 03/27/2024 17:55 EST Surgery [facility] [address] [place] [id number] Vishal Castillo MD [address] [place] [phone] Left Reverse Total Shoulder Arthroplasty [40213 (CPT??)] 04/08/2024 15:30 EST Post-op Visit [facility] Hand & Upper Extremity Program - [facility] [address] [facility] [place] [address] Vishal Castillo MD [address] [place] [phone] Scheduled Procedures Name Priority Associated Diagnoses Date/Ti me ARTHROPLASTY, SHOULDER, TOTAL Left rotator cuff tear arthropathy 03/27/2024 14:25 EST documented as of this encounter Visit Diagnoses Not on filedocumented in this encounter Discontinued Medications Medication Sig Discontinue Reason Start Date End Da te ergocalciferol, vitamin D2, (VITAMIN D ORAL) Take by mouth daily. 03/14/2024 documented as of this encounter Historical Medications * This list may reflect changes made after this encounter. nystatin (MYCOSTATIN) powder Apply topically to affected area if needed. 11/18/2023 added in this encounter Care Teams Shovel Mechanic Relationship Specialty Start Date End Date Barbara Conway NP [address] [place] [address] PCP - General 08/19/13 documented as of this encounter
--- OUTSIDE RECORDS SUMMARY | 2024-03-18 22:08 | XMS_ITS | Continuity of Care Document ---
Author Organization [facility] Address [address] [place] [address] Phone Care Team Providers Care Soiled Linen Distributor Name Role Phone Out of Town, Provider Primary Care Provider Unav ailable Abbey Reynolds Attending Provider [phone] Russel Otto Attending Provider Allergies, Adverse Reactions, Alerts Allergen Type Severity Reaction Last Updated Verified Status simvastatin Adverse Reaction Moderate Novembe r 2018 11:11am Yes Active Sulfa (Sulfonamide Antibiotics) Adverse Reaction Unknown March 10, 2019 11:11am Yes Active Medications Medication Status Dose Units Route Sig Qty Days Start Date End Date Instructions Atorvastatin Active 40 MG PO BEDTIM E June 23, 2016 10:09am Metformin Discontinu ed 500 MG PO EVERY MORNIN G June 23, 2016 10:09am September 02, 2016 1:40pm Omeprazole Active 40 MG PO EVERY MORNIN G June 23, 2016 10:09am Aspirin Discontinu ed 81 MG PO BEDTIM E June 23, 2016 10:09am September 02, 2016 1:40pm Calcium Carbonate (Calcium 500) 500 mg calcium (1,250 mg) Tablet Active 500 MG PO TWICE A DAY June 23, 2016 10:09am Metformin Active 1000 MG PO TWICE A DAY June 23, 2016 10:09am Ibuprofen (Motrin Ib) 200 mg Tablet Active 600 MG PO THREE TIMES A DAY June 23, 2016 10:09am Lisinopril Discontinu ed 40 MG PO EVERY MORNIN G June 23, 2016 10:09am November 01, 2017 7:00am Multivitamin Discontinu ed 1 TAB-CA P PO EVERY MORNIN G June 23, 2016 10:09am Que r 2018 11:11am Atenolol Discontinu ed 50 MG PO EVERY MORNIN G June 23, 2016 10:09am Jaspreetbe r 2018 11:12am Magnesium Discontinu ed 400 MG PO EVERY EVENIN G June 23, 2016 10:09am Que r 2018 11:11am Nitrofurantoin Monohyd/M-Narcisa t (Macrobid) 100 mg Capsule Discontinu ed 1 CAP PO Q12H June 23, 2016 10:09am November 01, 2017 6:59am Cephalexin Discontinu ed 500 MG PO TWICE A DAY 14 October 03, 2017 11:40am November 01, 2017 6:59am Metoprolol Succinate Active November 01, 2017 6:58am Lisinopril Active TABLET Novem er 2018 11:12am Prednisone Discontinu ed 10 MG PO DAILY 5 5 March 10, 2019 11:48am Que r 2018 12:08am Fluticasone Propionate Active 1 SPR NA Q12H 9.9 March 10, 2019 11:49am administer into each nostril Guaifenesin Discontinu ed 400 MG PO .q8hr 15 5 March 10, 2019 11:49am Que r 2018 12:08am Benzonatate Active 100 MG PO every day at bedtim e 14 March [...] Impacted cerumen of left ear Res olved Advance Directives Advance Directive Response Recorded Date/ Time Does patient have an Advanced Directive? Yes June 29, 2016 8:06am Do we have a copy on file here at [facility]? Yes June 29, 2016 8:06am Pt has a Living Will? Yes June 29, 2016 8:06am Do we have a copy on file here at [facility]? Yes June 29, 2016 8:06am Pt has a Power of Personal Lines Sales Rep? Yes 2016 8:06am Do we have a copy on file here at [facility]? Yes June 29, 2016 8:06am Chief Complaint and Reason for Visit Chief Complaint Provider Based Nilo ng COVID19 CURBSIDE TEST Encounters Encounter Location(s) Arrival/Admit Date Discharge/Depart Date Provider(s) Departed Emergency [facility] March 10, 2019 11:07am March 10, 2019 12:00pm null Departed Physician/Prov ider Office Visit [facility] March 10, 2019 11:09am March 10, 2019 11:10am PAC Abbey Reynolds Departed Clinical [facility] October 24, 2019 8:49am October 24, 2019 8:50am Russel Otto MD Assessments No Assessments Information Available Family History [...] Insurance Providers Guarantor BRYCE HILL Address [address] [address] Contact Info. Home Phone: Payer Policy Id Coverage Id Subscriber's Name Subscriber Id Effective Date Expiration Date BLUE CROSS OUT OF STATE [id number] BRYCE HILL [id number] MEDICARE OUT (DO NOT USE) [id number] BRYCE HILL [id number] 2011 MEDICARE PART A AND B COVERAGE [id number] BRYCE HILL [id number] SELF PAY Self N/A [facility] [id number] BRYCE HILL [id number] [facility] (DO NOT USE) [id number] BRYCE HILL [id number] 2016 Plan of Treatment Future Tests Future scheduled test information is unavailable Pending Tests Pending diagnostic test information is unavailable Future Visits Future appointment information is unavailable Referrals to Other Providers Reason for Referral Referral Start Date Provider Annette morley Contact Information Provider Address Town Out Future Procedures Future procedure information [...] Reading Result Reference Range Collection Date/Time Height 64.50 [in_i] March 10, 2019 11:13am [...] 11:13am BMI (Body Mass Index) 32.1 kg/m2 Novemb er 2018 11:13am Hospital Discharge Instructions Additional Instructions Gargle [...]
--- OUTSIDE RECORDS SUMMARY | 2024-03-18 22:08 | XMS_ITS | Continuity of Care Document ---
Author Organization [facility] Address [address] [place] [address] Phone Care Team Providers Care Senior Web Designer Name Role Phone Barbara Conway Primary Care Provider [phone] Evelyn Gannon NP Attending Provider [phone] Barbara Conway Attending Provider Duglas Mccullough Attending Provider [phone] Chief Complaint and Reason for Visit Chief Complaint Chronic kidney disea se, stage 3b Lab Lab Lab Back & Balance Allergies, Adverse Reactions, Alerts Allergen Type Severity [...] November 01, 2017 12:00am Lisinopril Active TABLET e r 2018 1:00am Prednisone Disconti nued 10 MG PO DAILY 5 5 2018 1:00am Novemb er 2018 1:08am Fluticasone Propionate Active 1 SPR NA Q12H 9.9 2018 1:00am administer into each nostril Guaifenesin Disconti nued 400 MG PO .q8hr 15 5 2018 1:00am Novemb er 2018 1:08am Benzonatate Disconti nued 100 MG PO every day at bedtime 2018 1:00am Januar y 2020 11:15a m Immunizations Immunization Event Date Not Given Reason Dose Number Sugar Drier Lot Number Vaccine Information Statement (VIS) Detail [...] Interpretation Reference Range Result Comment Performing Site Urine Color August 30, 2021 12:09pm Yellow MAIN LAB [address] [address] Urine Clarity August 30, 2021 12:09pm Clear MAIN LAB [address] [address] Urine pH August 30, 2021 12:09pm 6.0 5.0-8.0 MAIN LAB [address] [address] Urine Specific [place] August 30, 2021 12:09pm 1.010 1.001-1.03 5 [facility] [address] [address] Urine Protein August 30, 2021 12:09pm Negative mg/dL NEGATIVE [facility] [address] [address] Urine Glucose (UA) August 30, 2021 12:09pm Norm mg/dL NORMAL MAIN LAB [facility] [place] [facility] [address] [facility] [address] Urine Ketones August 30, 2021 12:09pm Neg NEGATIVE MAIN LAB [facility] [place] [facility] [address] [facility] [address] Urine Nitrite August 30, 2021 12:09pm Negative Negative MAIN LAB [address] [address] Urine Bilirubin August 30, 2021 12:09pm Neg mg/dL NEGATIVE MAIN LAB [address] [address] Urine Urobilinogen August 30, 2021 12:09pm norm mg/dL NORMAL MAIN LAB [address] [address] Urine Leukocyte Esterase August 30, 2021 12:09pm Neg WBC/uL NEGATIVE MAIN LAB [address] [address] Urine Blood August 30, 2021 12:09pm Neg DALTON/uL NEGATIVE MAIN LAB [address] [address] Urine Culture Done August 30, 2021 12:09pm No CULTURE NOT INDICATED. MAIN LAB [address] [address] Sodium Level February 02, 2021 11:57am 138 mmol/L 137-145 MAIN LAB [address] [address] Sodium Level August 23, 2021 8:34am 138 mmol/L 137-145 MAIN LAB [address] [address] Potassium Level February 02, 2021 11:57am 4.1 mmol/L 3.6-5.0 MAIN LAB [address] [address] Potassium Level August 23, 2021 8:34am 4.9 mmol/L 3.6-5.0 MAIN LAB [address] [address] Chloride Level February 02, 2021 11:57am 99 mmol/L 98-107 MAIN LAB [address] [address] Chloride Level August 23, 2021 8:34am 103 mmol/L 98-107 MAIN LAB [address] [address] Carbon Dioxide Level February 02, 2021 11:57am 30 mmol/L 22-30 MAIN LAB [address] [address] Carbon Dioxide Level August 23, 2021 8:34am 26 mmol/L 22-30 MAIN LAB [address] [address] Anion Gap August 23, 2021 8:34am 9 7-16 MAIN LAB [address] [address] Blood Urea Nitrogen February 02, 2021 11:57am 18 mg/dL 7-17 MAIN LAB [address] [address] Blood Urea Nitrogen August 23, 2021 8:34am 18 mg/dL 7-17 MAIN LAB [address] [address] Creatinine February 02, 2021 11:57am 1.02 mg/dL 0.52-1.04 MAIN LAB [address] [address] Creatinine August 23, 2021 8:34am 1.00 mg/dL 0.52-1.04 MAIN LAB [address] [address] Glomerular Filtration Rate Calc February 02, 2021 11:57am 53 mL/min >60.0 MAIN LAB [address] [address] Glomerular Filtration Rate Calc August 23, 2021 8:34am 54 mL/min >60.0 MAIN LAB [address] [address] Glucose Level February 02, 2021 11:57am 115 mg/dL 70-100 MAIN LAB [address] [address] Glucose Level August 23, 2021 8:34am 89 mg/dL 70-100 MAIN LAB [address] [address] Calcium Level February 02, 2021 11:57am 9.5 mg/dL 8.4-10.2 MAIN LAB [address] [address] Calcium Level August 23, 2021 8:34am 9.8 mg/dL 8.4-10.2 MAIN LAB [address] [address] Calcium Adjusted for Albumin February 02, 2021 11:57am 9.7 mg/dL 8.4-10.2 MAIN LAB [facility] [place] [facility] [address] [facility] [address] Calcium Adjusted for Albumin August 23, 2021 8:34am 9.7 mg/dL 8.4-10.2 MAIN LAB [facility] [place] [facility] [address] [facility] [address] Phosphorus Level February 02, 2021 11:57am 4.3 mg/dL 2.5-4.5 MAIN LAB [facility] [place] [facility] [address] [facility] [address] Phosphorus Level August 23, 2021 8:34am 3.8 mg/dL 2.5-4.5 MAIN LAB [facility] [place] [facility] [address] [facility] [address] Albumin February 02, 2021 11:57am 4.1 g/dL 3.5-5.[address] [address] Albumin August 23, 2021 8:34am 4.4 g/dL 3.5-5.[address] [address] Hemoglobin A1c Percent August 23, 2021 8:34am [...] can be achieved without excessive hypoglycemia. MAIN [address] [address] Estimated Average Glucose mg/dL August 23, 2021 8:34am 132 mg/dL MAIN [address] [address] Diagnostic Imaging Reports Report Dictated Date/Time Dictated By Status Radiology Report January 25, 2021 11:47am Maria T Enrique MD completed [facility] ULTRASOUND REPORT PATIENT NAME: BRYCE HILL [...] Insurance Providers Guarantor BRYCE HILL Address [address] [facility] [address] [facility] [address] Contact Info. Home Phone: Payer Policy Id Coverage Id Subscriber's Name Subscriber Id Effective Date Expiration Date BLUE CROSS OUT OF STATE [id number] BRYCE HILL [id number] MEDICARE OUT (DO NOT USE) [id number] BRYCE HILL [id number] 2011 MEDICARE PART A AND B COVERAGE [id number] BRYCE HILL [id number] SELF PAY Self N/A [facility] [id number] BRYCE HILL [id number] [facility] (DO NOT USE) [id number] BRYCE HILL [id number] 2016 Encounters Encounter Location(s) Arrival/Admit Date Discharge /Depart Date Provider(s) Departed Clinical [facility] January 22, 2021 12:34pm January 22, 2021 12:35pm Evelyn Gannon NP Departed Clinical [facility] February 02, 2021 11:28am February 02, 2021 11:29am WOOD ROOM HAND Barbara Conway Departed Clinical [facility] August 23, 2021 8:29am August 23, 2021 8:30am WOOD ROOM HAND Barbara Conway Departed [facility] August 30, 2021 11:52am August 30, 2021 11:53am WOOD ROOM HAND Barbara Conway Discharged [facility] January 11, 2022 10:45am January 21, 2022 4:15pm VELMA Barnard Functional Status Observation Response Date Recorded Ambulation Ability Independent June 23 11:22am Living Situation Alone December 01 10:49am
--- OUTSIDE RECORDS SUMMARY | 2024-03-18 22:08 | XMS_ITS | Continuity of Care Document ---
Author Organization [facility] Address [address] [place] [address] Phone Care Team Providers Care Global Supply Chain Director Name Role Phone ZoraidaHenrii Primary Care Provider [phone] Barbara Conway Attending Provider Jagdeep HAYNES, Evelyn Mcmullen Attending Provider Chief Complaint and Reason for Visit Chief Complaint Lab Lab Chronic kidney disease, stage 3b Lab Lab Lab Allergies, Adverse Reactions, Alerts Allergen [...] Active 1000 MG PO TWICE A DAY [facility] 2016 11:09am Ibuprofen (Motrin Ib) 200 [...] 01, 2017 6:58am Lisinopril Active TABLET Novem e r 2018 12:12pm Prednisone Disconti nued 10 MG PO DAILY 5 5 r 2018 12:48pm Novemb er 2018 1:08am Fluticasone Propionate Active 1 SPR NA Q12H 9.9 be r 2018 12:49pm administer into each nostril Guaifenesin Disconti nued 400 MG PO .q8hr 15 5 be r 2018 12:49pm Novemb er 2018 1:08am Benzonatate Disconti nued 100 MG PO every day at bedtime 14 r 2018 12:51pm Januar y 2020 11:15a m Immunizations Immunization Event Date Not Given Reason Dose Number Straight Line Edger Lot Number Vaccine Information Statement (VIS) Detail [...] August 30, 2021 12:09pm Yellow [facility] [address] [address] Urine Clarity August 30, 2021 12:09pm Clear [facility] [address] [address] Urine pH August 30, 2021 12:09pm 6.0 MAIN [facility] [address] [address] Urine Specific [place] August 30, 2021 12:09pm 1.010 MAIN LAB [address] [address] Urine Protein August 30, 2021 12:09pm Negative mg/dL NEGATIVE [facility] [address] [address] Urine Glucose (UA) August 30, 2021 12:09pm Norm mg/dL NORMAL MAIN LAB [address] [address] Urine Ketones August 30, 2021 12:09pm Neg NEGATIVE MAIN [facility] [address] [address] Urine Nitrite August 30, 2021 12:09pm Negative Negative [facility]IN [facility] [address] [address] Urine Bilirubin August 30, 2021 12:09pm Neg mg/dL NEGATIVE [facility] [address] [address] Urine Urobilinogen August 30, 2021 12:09pm norm mg/dL NORMAL MAIN [facility] [address] [address] Urine Leukocyte Esterase August 30, 2021 12:09pm Neg WBC/uL NEGATIVE MA[facility] [address] [address] Urine Blood August 30, 2021 12:09pm Neg DALTON/uL NEGATIVE MAIN LAB [address] [address] Urine Culture Done August 30, 2021 12:09pm No CULTURE NOT INDICATED. MAIN LAB [address] [address] Sodium Level November 16, 2020 11:17am 137 mmol/L 137-145 MAIN LAB [address] [place] [address] Sodium Level December 17, 2020 9:39am 139 mmol/L 137-145 MAIN LAB [address] [address] Sodium Level February 02, 2021 11:57am 138 mmol/L 137-145 MAIN LAB [address] [address] Sodium Level August 23, 2021 8:34am 138 mmol/L 137-145 MAIN LAB [address] [address] Potassium Level November 16, 2020 11:17am 4.6 mmol/L 3.6-5.0 MAIN LAB [address] [place] [address] Potassium Level December 17, 2020 9:39am 4.7 mmol/L 3.6-5.0 MAIN LAB [address] [address] Potassium Level February 02, 2021 11:57am 4.1 mmol/L 3.6-5.0 MAIN LAB [facility] [address] [facility] [address] Potassium Level August 23, 2021 8:34am 4.9 mmol/L 3.6-5.0 MAIN LAB [address] [address] Chloride Level November 16, 2020 11:17am 103 mmol/L 98-[address] [facility] [address] Chloride Level December 17, 2020 9:39am 104 mmol/L 98-107 MAIN LAB [address] [address] Chloride Level February 02, 2021 11:57am 99 mmol/L 98-107 MAIN LAB [address] [address] Chloride Level August 23, 2021 8:34am 103 mmol/L 98-107 MAIN LAB [address] [address] Carbon Dioxide Level November 16, 2020 11:17am 25 mmol/L 22-30 MAIN LAB [address] [place] [address] Carbon Dioxide Level December 17, 2020 9:39am 26 mmol/L 22-30 MAIN LAB [address] [address] Carbon Dioxide Level February 02, 2021 11:57am 30 mmol/L 22-30 MAIN LAB [address] [address] Carbon Dioxide Level August 23, 2021 8:34am 26 mmol/L 22-30 MAIN LAB [address] [address] Anion Gap November 16, 2020 11:17am 9 7-16 MAIN LAB [address] [place] [address] Anion Gap December 17, 2020 9:39am 9 7-16 MAIN LAB [address] [address] Anion Gap August 23, 2021 8:34am 9 7-16 MAIN LAB [address] [address] Blood Urea Nitrogen November 16, 2020 11:17am 22 mg/dL 7-17 MAIN LAB [address] [place] [address] Blood Urea Nitrogen December 17, 2020 9:39am 15 mg/dL 7-17 MAIN LAB [address] [address] Blood Urea Nitrogen February 02, 2021 11:57am 18 mg/dL 7-17 MAIN LAB [address] [address] Blood Urea Nitrogen August 23, 2021 8:34am 18 mg/dL 7-17 MAIN LAB [address] [address] Creatinine November 16, 2020 11:17am 1.30 mg/dL 0.52-1.04 MAIN LAB [address] [place] [address] Creatinine December 17, 2020 9:39am 1.03 mg/dL 0.52-1.04 MAIN LAB [address] [address] Creatinine February 02, 2021 11:57am 1.02 mg/dL 0.52-1.04 MAIN LAB [address] [address] Creatinine August 23, 2021 8:34am 1.00 mg/dL 0.52-1.04 MAIN LAB [address] [address] Glomerular Filtration Rate Calc November 16, 2020 11:17am 40 mL/min >60.0 MAIN LAB [address] [place] [address] Glomerular Filtration Rate Calc December 17, 2020 9:39am 52 mL/min >60.0 MAIN LAB [address] [address] Glomerular Filtration Rate Calc February 02, 2021 11:57am 53 mL/min >60.0 MAIN LAB [address] [address] Glomerular Filtration Rate Calc August 23, 2021 8:34am 54 mL/min >60.0 MAIN LAB [address] [address] Glucose Level November 16, 2020 11:17am 113 mg/dL 70-100 MAIN LAB [address] [place] [address] Glucose Level December 17, 2020 9:39am 93 mg/dL 70-100 MAIN LAB [address] [address] Glucose Level February 02, 2021 11:57am 115 mg/dL 70-100 MAIN LAB [address] [address] Glucose Level August 23, 2021 8:34am 89 mg/dL 70-100 MAIN LAB [address] [address] Calcium Level November 16, 2020 11:17am 9.6 mg/dL 8.4-10.2 MAIN LAB [address] [place] [address] Calcium Level December 17, 2020 9:39am 10.0 mg/dL 8.4-10.2 MAIN LAB [address] [address] Calcium Level February 02, 2021 11:57am 9.5 mg/dL 8.4-10.2 MAIN LAB [address] [address] Calcium Level August 23, 2021 8:34am 9.8 mg/dL 8.4-10.2 MAIN LAB [address] [address] Calcium Adjusted for Albumin February 02, 2021 11:57am 9.7 mg/dL 8.4-10.2 MAIN LAB [address] [address] Calcium Adjusted for Albumin August 23, 2021 8:34am 9.7 mg/dL 8.4-10.2 MAIN LAB [address] [address] Phosphorus Level February 02, 2021 11:57am 4.3 mg/dL 2.5-4.5 MAIN LAB [address] [address] Phosphorus Level August 23, 2021 8:34am 3.8 mg/dL 2.5-4.5 MAIN LAB [address] [address] Albumin February 02, 2021 11:57am 4.1 g/dL 3.5-5.0 MAIN LAB [address] [address] Albumin August 23, 2021 8:34am 4.4 g/dL 3.5-5.0 MAIN LAB [address] [address] Hemoglobin A1c Percent August 23, 2021 8:34am [...] be achieved without excessive hypoglycemia. MAIN LAB [facility] [address] [facility] [address] Estimated Average Glucose mg/dL August 23, 2021 8:34am 132 mg/dL MAIN LAB [facility] [address] [facility] [address] Diagnostic Imaging Reports Report Dictated Date/Time Dictated By Status Radiology Report January 25, 2021 11:47am Maria T Enrique MD completed [facility] ULTRASOUND REPORT [...] have a copy on file here at [facility]? Yes June 29, 2016 9:06am Pt has a Living Will? Yes June 29, 2016 9:06am Do we have a copy on file here at [facility]? Yes June 29, 2016 9:06am Pt has a Power of Fermenter Helper? Yes 2016 9:06am Do we have a copy on file here at [facility]? Yes June 29, 2016 9:06am Insurance Providers Guarantor BRYCE Anibal LIZ Address [address] [address] Contact Info. Home Phone: Payer Policy Id Coverage Id Subscriber's Name Subscriber Id Effective Date Expiration Date BLUE CROSS OUT OF STATE [id number] [place]CE [place] [id number] MEDICARE OUT (DO NOT USE) [id number] BRYCE Anibal LIZ [id number] 2011 MEDICARE PART A AND B COVERAGE [id number] BRYCE Anibal LIZ [id number] SELF PAY Self N/A [facility] CARE [id number] BRYCE Anibal LIZ [id number] [facility] (DO NOT USE) [id number] BRYCE Anibal LIZ [id number] 2016 Encounters Encounter Location(s) Arrival/Admit Date Discharge/Depart Date Provider(s) Departed [facility] November 16, 2020 11:02am November 16, 2020 11:03am FOSTER Conway Departed [facility] December 17, 2020 9:33am December 17, 2020 9:34am Evelyn Gannon NP Departed Clinical [facility] January 22, 2021 12:34pm January 22, 2021 12:35pm Evelyn Gannon NP Departed Clinical [facility] February 02, 2021 11:28am February 02, 2021 11:29am WEIGHT YARDAGE CHECK[facility]nette [facility] 2021 8:29am August 23, 2021 8:30am [facility] 30, 2021 11:52am August 30, 2021 11:53am FOSTER Conway
--- OUTSIDE RECORDS SUMMARY | 2024-03-18 22:09 | XMS_ITS | Encounter Summary ---
Author Organization [facility] Address [address] [place] [address] Care Team Providers Care [employer] Name Role Phone Barbara Conway Myla WOODYARD OPERATOR Primary Care Provider [phone] Reason for Visit * Reason Onset Date Comments Results 08/30/2023 Encounter Details Date Type Department Care Team (Late st Contact Info) Description 08/30/2023 Telephone [facility] Interventional Pain [address] [place], [place] [id number] Luz Elena Aragon RN Results Social History Tobacco Use Types Packs/Day Years [...] EDMackenzie Pickard RN * Do you have serious difficulty [...] Mackenzie Vela RN documented in this encounter Miscellaneous Notes * Telephone Encounter - Luz Elena Aragon RN - 08/30/2023 1356 EDT ----- Message from Nurse Aldana sent at 05/17/2023 13:16 EST ----- Regarding: rfa 12 weeks B/l LRFA done 05/17/23 Injection History: 05/17/2023: lumbar radiofrequency ablation at bilateral L3, L4, L5 04/26/2023: bilateral L3, L4, L5 MBBs 03/10/2023: bilateral L3, L4, L5 MBBs Date and type of procedure: 05/17/2023: lumbar radiofrequency ablation at bilateral L3, L4, L5 Provider: Dr. Durham Weeks/Months of relief: ongoing % of relief: 80%-85% Current pain score: 0 (No Pain) at the moment Improvement in function: yes walking, bending forward, bending backward, and vacuuming Reduction in pain medication: yes Conservative treatment: heat Next appointment: Forwarded to [facility] to schedule follow up. documented in this encounter Plan of Treatment Upcoming Encounters Date Type Department Care Team (Latest Contact Info) Description 03/27/2024 14:25 EST Hospital Encounter [facility] OR [address] [place] [phone] Vishal Castillo MD [address] [place] [phone] 03/27/2024 14:25 EST - 03/27/2024 17:55 EST Surgery [facility] OR [address] [place] [address] Vishal Castillo MD [address] [place] [phone] Left Reverse Total Shoulder Arthroplasty [49662 (CPT??)] 04/08/2024 15:30 EST Post-op Visit [facility] Hand & Upper Extremity Program - [address] [place], [place] [phone] Vishal Castillo MD [address] [place] [phone] Scheduled Procedures Name Priority Associated Diagnoses Date/Ti me ARTHROPLASTY, SHOULDER, TOTAL Left rotator cuff tear arthropathy 03/27/2024 14:25 EST documented as of this encounter Visit Diagnoses Not on filedocumented in this encounter Care Teams [employer] Relationship Specialty Start Date End Date Barbara Conway NP [address] [place] [address] PCP - General 08/19/13 documented as of this encounter
--- OUTSIDE RECORDS SUMMARY | 2024-03-18 22:09 | XMS_ITS | Encounter Summary ---
Author Organization [facility] Address [address] [place] [address] Care Team Providers Care Dragsaw Operator Name Role Phone Henri Conwayi Myla HAND THERAPIST Primary Care Provider [phone] Reason for Visit * Reason Comments Back Pain Bilateral * Prior Authorization (Routine) - Specialty Report Received Specialty Diagnoses / Procedures Referred By Contact Referred To Contact Anesthesiology / Pain Medicine Diagnoses Spinal stenosis, lumbar 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 L3-L4/ L4-L5 MBB 1 of 2/ Procedures ND INJ DX/THER AGNT PARAVERT FACET JOINT, LUMBAR/SAC, 1ST LEVEL ND INJ DX/THER AGNT PARAVERT FACET JOINT, LUMBAR/SAC, 2ND LEVEL PAIN CLINIC PROCEDURE [facility] Interventional Pain [address] [place] [address] Phone: tel: fax: Dickson Durham [employer] [address] [facility] [address] [place] [address] Phone: tel:[phone] fax: Referral ID Status Reason Start Date Expiration Date V isits Requested Visits Authorized [id number] Specialty Report Received 03/01/2023 06/28/2023 1 1 Encounter Details Date Type Department Care Team (Latest Contact Info) Description 03/10/2023 13:30 EST Office Visit [facility] Interventional Pain [address] [place] [address] Dickson Durham MBBS [address] [facility] [address] [place] [phone] Spondylosis of lumbar region without myelopathy [...] Sign Reading Time Taken Comments Blood Pressure 142/68 03/10/2023 1346 EST Pulse 64 03/10/2023 1346 EST Temperature 36.8 ??C (98.3 ??F) 03/10/2023 1242 EST Respiratory Rate 20 03/10/2023 1346 EST Oxygen Saturation 98% 03/10/2023 1242 EST Inhaled Oxygen Concentration - - Weight - [...] this encounter Patient Instructions * Patient Instructions* Frances Wall RN - 03/10/2023 13:30 EST [facility] [address] [address] Medial Branch Block Patient Instructions You underwent a procedure called MEDIAL BRANCH BLOCK today. This is a diagnostic test to determine if this is the cause of your pain. Your results from today???s injection will help us guide further care for you. Please call us back tomorrow with your hours and % of relief. Following this procedure, continue to be active for the Remainder of the day and maintain your usual daily routine. Do not drive or operate any motorized vehicles or equipment. Keep track of how long you received relief as well as what percentage of pain relief immediately following the procedure. It can take 30-60 minutes for the long acting local anesthetic to start to work. Separate the needle discomfort, pressure and tightness caused by this procedure from your regular pain. This diagnostic procedure is ONLY intended to last for a number of hours, not days or weeks.Please contact our office the day after your Medial Branch Block with your results. PROCEDURE END TIME: (nurse) 1:30 PAIN RELIEF START TIME: PAIN RELIEF END TIME: HOURS OF RELIEF PERCENTAGE OF RELIEF (0-100%) ADDITIONAL MEDIAL BRANCH BLOCK INSTRUCTIONS Do not operate a automobile or other motorized equipment for the remainder of the day today. You may resume your normal activities or rest tomorrow. If you feel sore where the needles were placed, please use ice to the area for up to 20 minutes at a time. Do not use heat, as this may cause swelling. Once your pain has returned you may resume anti-inflammatory medication (NSAIDs: ibuprofen, Advil, Motrin, alive). NSAIDs and ice will help with any increase in pain you may have after your block has worn off. If you have a fever or any redness or other signs of infection at the injection sites after today, please contact us immediately. Patient Education Topic: Method: Handout and Verbal Taught to: Patient Barriers: None Outcomes: independent and verbalized understanding Frances June RN documented in this encounter Progress Notes * Duglas Evans DO - 03/10/2023 1330 EST Patient Name: Aretha Garcia : 1945 Date of Service: 03/10/23 Chief Complaint: Chief Complaint Patient presents with ??? Back Pain Bilateral Medical Biller/Coder: Dr. Durham Time Study Technician: Duglas Evans DO Procedure: Diagnostic lumbar medial branch blocks at bilateral L3, L4, L5 Interval History: Patient presents today regarding their chronic low back pain Please refer to Allen Galan MD note on 02/01/23 for full details regarding the patient's pain complaint. Patient currently denies any progressive weakness, unexplained fever, trauma or unexplained weight loss. The patient reports no recent changes in the character, quality, or distribution of the pain. There are no recent onset of new associated symptoms such as changes in strength, sensation, orbladder control. All previous medical records including current medications, anticoagulation status, any signs of current infection, and new imaging were reviewed. Injection History: 03/10/2023: bilateral L3, L4, L5 Physical Exam: Vitals: BP 129/59 (BP Cuff Location: Left arm, BP Patient Position: Sitting, BP Cuff Sizes: Adult, regular) Pulse 68 Temp 36.8 ??C (98.3 ??F) (Tympanic) Resp 16 SpO2 98% General: Patient is alert and oriented, no acute distress. Lungs: symmetric chest rise, no evidence of labored breathing Skin: clear, warm, dry and intact and no rashes, bruises or petechiae noted Lumbar spine: Positive facet loading Assessment: 1. Spondylosis of lumbar region without myelopathy or radiculopathy Plan: Ms. Aretha Garcia is a 78 y.o. female that presents to the pain clinic to undergo lumbar medial branch blocks. All risks, benefits, and alternatives were thoroughly explained to Ms. Aretha Garcia who verbally communicated understanding of the management plan. Followup: We will contact the patient within 24 hours via telephone to ascertain relief obtained from today's procedure. PROCEDURE: The patient gave informed written consent to proceed with this procedure following a detailed discussion of the risks and benefits associated with lumbar medial branch blocks including but not limited to infection, bleeding, headache, further exacerbation of current symptoms, neurological injury, and lack of efficacy. The patient was then placed in prone position, the skin over the lumbar region was prepped with chlorhexadine, and the site was marked and draped with sterile towels. Strict sterile technique was maintained throughout the procedure. A time out was performed with full staff present to identify the patient, verify the procedure being performed, and review allergies Flouroscopy was used to identify the appropriate lumbar anatomy. The skin and subcutaneous tissue were anesthetized with 1% lidocaine. A 22 guage 5 inch spinal needle was inserted under fluoroscopic guidance to contact the junction of the superior articulating process and transverse process at the Lt L3, Rt L3, Lt L4, Rt L4, Lt L5 and Rt L5 levels. Final needle position was confirmed with fluoroscopy. Aspiration was negative for blood or CSF. Next, 0.5 ml of 0.5% bupivacaine was injected at each site, the needles were restyletted and withdrawn. Fluoroscopic spot images were saved during the procedure. There was no paresthesia during needle placement and aspiration was negative at all times. The patient tolerated the procedure well and there were no apparent complications. Written and verbal discharge instructions were reviewed with the patient prior to discharge. They will report the results of today???s diagnostic injection via telephone within 24 hours Please refer to nursing flowsheets for pre and post pain scores. Duglas Evans DO PGY-5 Pain Medicine Fellow ,Attending attestation: I saw and examined the patient with fellow/resident. I agree with the findings and plan of care documented in this note. In addition, I was present and participated during theentire procedure. AMANDA Lunsford 03/10/2023 * Poly Wilks MA - 03/10/2023 9530 EST [facility] Rooming Note Does patient have a Smoke Inspector? yes Is patient NPO? (Solids since midnight & liquids for 4 hrs) no Blood Thinners: Is patient on Blood Thinners? yes If yes, taking? no If stopped, who authorized stopping? Related comments: Infections: Any recent infections, fever of illnesses? no If on antibiotics, is it 7-10 days past the date of completion of antibiotics? no : (for females of child-bearing age) Is there a chance current ? Do you have any type of implanted device? no Vaccination: Have you had or are you planning to have a vaccination in the 2 weeks? no Other: no * Frances Wall RN - 03/10/2023 1330 EST ATTENTION: An active Time-Out initiated by the [...] by the entire procedural team was completed. documented in this encounter Plan of Treatment Upcoming Encounters Date Type Department Care Team (Latest Contact Info) Description 03/27/2024 14:25 EST Hospital Encounter [facility] OR [address] [place] [phone] Vishal Castillo MD [address] [place] [phone] 03/27/2024 14:25 EST - 03/27/2024 17:55 EST Surgery [facility] [place] OR [address] [place] [address] Vishal Castillo MD [address] [place] [phone] Left Reverse Total Shoulder Arthroplasty [48851 (CPT??)] 04/08/2024 15:30 EST Post-op Visit [facility] Upper Extremity Program - [address] [address] Vishal Castillo MD [address] [place] [phone] Scheduled Procedures Name Priority Associated Diagnoses [...] Rate Site BUPivacaine (PF) (MARCAINE) 0.5% injection 3 mL 3 mL, radha-neural, NOW X1, 1 dose, On Mon03/10/23 at 1400, Routine Given by Other 03/10/2023 13:35 EST 3 mL documented in this encounter Care Teams Dragsaw Operator Relationship Specialty Start Date End Date Barbara Conway, HAND THERAPIST [address] [place], [place] [address] PCP - General 08/19/13 documented as of this encounter
--- OUTSIDE RECORDS SUMMARY | 2024-03-18 22:09 | XMS_ITS | Encounter Summary ---
Author Organization [facility] Address [address] [place] [address] Care Team Providers Care Anesthesiology Technologist Name Role Phone Barbara Conway BUSINESS EDUCATION TEACHER Primary Care Provider [phone] Reason for Referral * Radiology Services (Routine/Next Available) - Specialty Report Received Specialty Diagnoses / Procedures [facility] Referred To Contact Diagnoses Special screening for osteoporosis Other specified disorders of bone density and structure, multiple sites Procedures DXA BONE DENSITY Barbara Conway NP [address] [place] [address] Phone: tel: fax: [facility] Referral ID Status Reason Start Date Expiration Date V isits Requested Visits Authorized [id number] Specialty Report Received 08/12/2022 1 1 Encounter Details Date Type Department Care Team (Late st Contact Info) Description 08/08/2022 Orders Only [facility] Endocrinology - [address] [address] Barbara Conway NP [address] [place], [place] [id number] Special screening for osteoporosis (Primary Dx); Other specified disorders of bone density and structure, multiple sites Social History Tobacco Use Types Packs/Day Years [...] Info) Description 03/27/2024 14:25 EST Hospital Encounter [facility] OR [address] [place] [address] Vishal Castillo MD [address] [place] [phone] 03/27/2024 14:25 EST - 03/27/2024 17:55 EST Surgery [facility] Main [place] OR [address] [place], [place] [phone] Vishal Castillo MD [address] [place] [phone] Left Reverse Total Shoulder Arthroplasty [97239 (CPT??)] 04/08/2024 15:30 EST Post-op Visit [facility] Hand & Upper Extremity Program - [address] [place] [address] Vishal Castillo MD [address] [place] [address] Scheduled Procedures Name Priority Associated Diagnoses Date/Ti me ARTHROPLASTY, SHOULDER, TOTAL Left rotator cuff tear arthropathy 03/27/2024 14:25 EST documented as of this encounter Results * DXA WITH FOREARM (10/17/2022 16:14 EDT) Anatomical Region Laterality Modality Other Barbara Conway NP IMG DEXA ORDERABLES Final Res ult documented in this encounter Visit Diagnoses Diagnosis Special screening for osteoporosis- Primary Other specified disorders of bone density and structure, multiple sites Left rotator cuff tear arthropathy documented in this encounter Care Teams Anesthesiology Technologist Relationship Specialty Start Date End Date Barbara Conway, [place] [address] [place] [address] PCP - General 08/19/13 documented as of this encounter
--- OUTSIDE RECORDS SUMMARY | 2024-03-18 22:09 | XMS_ITS | Encounter Summary ---
Author Organization [facility] Address [address] [place] [address] Care Team Providers Care Memorial Mason Name Role Phone Barbara Conway Myla MEMORIAL MARKER DESIGNER Primary Care Provider [phone] Encounter Details Date Type Department Care Team (Late st Contact Info) Description 03/27/2023 Orders Only [facility] Radiology - [facility] [address] [place], [place] [id number] Arturo Falk, DO [address] [facility] Level [address] [place] [address] Social History Tobacco Use Types Packs/Day Years [...] Info) Description 03/27/2024 14:25 EST Hospital Encounter [facility] OR [address] [place] [phone] Vishal Castillo MD [address] [place] [phone] 03/27/2024 14:25 EST - 03/27/2024 17:55 EST Surgery [facility] OR [address] [place], [place] [address] Vishal Castillo MD [address] [place] [phone] Left Reverse Total Shoulder Arthroplasty [63926 (CPT??)] 04/08/2024 15:30 EST Post-op Visit [facility] Hand & Upper Extremity Program - [address] [address] Vishal Castillo MD [address] [place] [phone] Scheduled Procedures Name Priority Associated Diagnoses Date/Ti me ARTHROPLASTY, SHOULDER, TOTAL Left rotator cuff tear arthropathy 03/27/2024 14:25 EST documented as of this encounter Visit Diagnoses Not on filedocumented in this encounter Care Teams Memorial Mason Relationship Specialty Start Date End Date Barbara Conway, MEMORIAL MARKER DESIGNER [address] [place] [address] PCP - General 08/19/13 documented as of this encounter
--- OUTSIDE RECORDS SUMMARY | 2024-03-18 22:09 | XMS_ITS | Encounter Summary ---
Author Organization [facility] Address [address] [place] [address] Care Team Providers Care Paper Products Inspector Name Role Phone JuanBarbara whitney Myla CONSTRUCTION SPECIALIST Primary Care Provider [phone] Reason for Visit * Reason Onset Date Comments Medications Refill 01/08/2024 Encounter Details Date Type Department Care Team (Late st Contact Info) Description 01/08/2024 Telephone [facility] Pelvic Medicine and Reconstructive Surgery - Medical Office [facility] [address] [place] [address] Tiffanie Pedraza RN Medications Refill Social History Tobacco Use Types Packs/Day Years [...] Mackenzie Pappas RN documented in this encounter Ordered Prescriptions Prescription Sig Dispense Quantity Refills Last Filled Start Date End Date estradioL (ESTRACE) 0.01 % (0.1 mg/gram) vaginal cream Apply a small dab to the urethral opening 2x/week. 42.5 g 2 01/08/2024 documented in this encounter Miscellaneous Notes * Telephone Encounter - Tiffanie Pedraza RN - 01/08/2024 1114 EDT Medication Refill Request Patient Request Medication/Dose/Route/Frequency: estradiol 0.01% vaginal cream 2x/week to urethral opening Pt completely out: Unknown Last office visit: 05/26/2022 Pending visit: 02/29/24 If appointment needed-message left/appointment made: N/A Pharmacy confirmed: Yes - [facility] Amount filled/# of refills: 1 tube /c 3 RF Pt made aware of refills sent via . documented in this encounter Plan of Treatment Upcoming Encounters Date Type Department Care Team (Latest Contact Info) Description 03/27/2024 14:25 EST Hospital Encounter [facility] OR [address] [place], [place] [phone] Vishal Castillo MD [address] [place] [phone] 03/27/2024 14:25 EST - 03/27/2024 17:55 EST Surgery [facility] OR [address] [place], [place] [phone] Vishal Castillo MD [address] [place] [phone] Left Reverse Total Shoulder Arthroplasty [77968 (CPT??)] 04/08/2024 15:30 EST Post-op Visit [facility] Hand & Upper Extremity Program - [address] [place] [address] Vishal Castillo MD [address] [place] [phone] Scheduled Procedures Name Priority Associated Diagnoses Date/Ti ut ARTHROPLASTY, SHOULDER, TOTAL Left rotator cuff tear arthropathy 03/27/2024 14:25 EST documented as of this encounter Visit Diagnoses Not on filedocumented in this encounter Discontinued Medications Medication Sig Discontinue Reason Start Date End Da te estradioL (ESTRACE) 0.01 % (0.1 mg/gram) vaginal cream Apply a small dab to the urethral opening daily for 2 weeks then 2x/week. Reorder 03/22/2022 01/08/2024 documented as of this encounter Care Teams Paper Products Inspector Relationship Specialty Start Date End Date Barbara Conway NP [address] [place] [address] PCP - General 08/19/13 documented as of this encounter
--- OUTSIDE RECORDS SUMMARY | 2024-03-18 22:09 | XMS_ITS | Encounter Summary ---
Author Organization [facility] Address [address] [place] [address] Care Team Providers Care Sales Floor Team Member Name Role Phone Barbara Conway ALUMINUM MOLDER Primary Care Provider [phone] Reason for Referral * (Routine/Next Available) - New Request Specialty Diagnoses / Procedures Referred By Maryuri sarmiento Referred To Contact Procedures PAIN CLINIC FL RADIOFREQUENCY ABLATION Dickson Durham [employer] Phone: tel: fax: Referral ID Status Reason Start Date Expiration Date V isits Requested Visits Authorized [id number] New Request 05/16/2023 1 1 Reason for Visit * (Routine/Next Available) - New Request Specialty Diagnoses / Procedures Referred By Maryuri sarmiento Referred To Contact Procedures PAIN CLINIC FL RADIOFREQUENCY ABLATION D[employer]on [employer] Phone: tel: fax: Referral ID Status Reason Start Date Expiration Date V isits Requested Visits Authorized [id number] New Request 05/16/2023 1 1 Encounter Details Date Type Department Care Team (Latest Contact Info) Description 05/17/2023 7:54 EST - 05/17/2023 23:59 EST Hospital Encounter [facility] Xray [address] [place], [place] [phone] Discharge Disposition: Home or Self Care Social [...] tablet Take 1 Tablet by mouth daily. famotidine (PEPCID) 20 mg tablet Take 1 [...] 1 Tablet by mouth 2 times daily. omeprazole (PRILOSEC) 40 mg capsule Take 1 Capsule by mouth every morning. 04/30/2008 cephALEXin (KEFLEX) 500 mg capsule Take 1 Capsule by mouth as needed. 1 tab BID for 3 days at first sign of UTI 4 estradioL (ESTRACE) 0.01 % (0.1 mg/gram) vaginal cream Apply a small dab to the urethral opening daily for 2 weeks then 2x/week. 42.5 g 2 03/22/2022 4 documented as of this encounter Discharge Disposition Disposition Code Departure Means Destination Home or Self Care documented in this encounter Plan of Treatment Upcoming Encounters Date Type Department Care Team (Latest Contact Info) Description 03/27/2024 14:25 EST Hospital Encounter [facility] OR [address] [place] [phone] Vishal Castillo MD [address] [place] [phone] 03/27/2024 14:25 EST - 03/27/2024 17:55 EST Surgery [facility] OR [address] [place] [phone] Vishal Castillo MD [address] [place] [phone] Left Reverse Total Shoulder Arthroplasty [84863 (CPT??)] 04/08/2024 15:30 EST Post-op Visit [facility] Hand & Upper Extremity Program - [facility] [address] [facility] [place], [place] [phone] Vishal Castillo MD [address] [place] [phone] Scheduled Procedures Name Priority Associated Diagnoses Date/Ti me ARTHROPLASTY, SHOULDER, TOTAL Left rotator cuff tear arthropathy 03/27/2024 14:25 EST documented as of this encounter Procedures Procedure Name Priority Date/Time Associated Diagnosis Comments PAIN CLINIC FL RADIOFREQUENCY ABLATION Routine 05/17/2023 13:46 EST documented in this encounter Results * PAIN CLINIC FL RADIOFREQUENCY ABLATION (05/17/2023 13:46 EST) Narrative 05/17/2023 13:46 EST This is a non-reportable exam. us Dickson PATEL IMG OTHER IMAGING ORDERABLES Final Result documented in this encounter Visit Diagnoses Not on filedocumented in this encounter Care Teams Sales Floor Team Member Relationship Specialty Start Date End Date Barbara Conway NP [address] [place] [address] PCP - General 08/19/13 documented as of this encounter
--- OUTSIDE RECORDS SUMMARY | 2024-03-18 22:09 | XMS_ITS | Encounter Summary ---
Author Organization [facility] Address [address] [place] [address] Care Team Providers Care Partridge Farmer Name Role Phone Barbara Conway ARBITRATOR Primary Care Provider [phone] Reason for Referral * Radiology Services (Routine/Next Available) - Authorization Not Required Specialty Diagnoses / Procedures Referred By Contac t Referred To Contact Diagnoses Spinal stenosis of lumbar 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 Chronic left shoulder pain Biceps tendonitis on left Shoulder arthritis Status post total right knee replacement Chronic bilateral low back pain, unspecified whether sciatica present Procedures FL GUIDED LOCALIZATION, ASPIRATION, INJECTION, BIOPSY Ashish Dejesus MD Phone: tel: fax: [facility] Referral ID Status Reason Start Date Expiration Date Visits Requested Visits Authorized [id number] Authorization Not Required 03/27/2023 1 1 Reason for Visit * Radiology Services (Routine/Next Available) - Authorization Not Required Specialty Diagnoses / Procedures Referred By Contac t Referred To Contact Diagnoses Spinal stenosis of lumbar 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 Chronic left shoulder pain Biceps tendonitis on left Shoulder arthritis Status post total right knee replacement Chronic bilateral low back pain, unspecified whether sciatica present Procedures FL GUIDED LOCALIZATION, ASPIRATION, INJECTION, BIOPSY Ashish Dejesus MD Phone: tel: fax: [facility] Referral ID Status Reason Start Date Expiration Date Visits Requested Visits Authorized [id number] Authorization Not Required 03/27/2023 1 1 Encounter Details Date Type Department Care Team (Latest Contact Info) Description 06/23/2023 12:12 EST - 06/23/2023 23:59 EST Hospital Encounter [facility] Radiology Fluoroscopy - [address] [address] Arthritis of shoulder region, left (Primary Dx); Spinal stenosis of lumbar 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; Chronic left shoulder pain; Biceps tendonitis on left; Shoulder arthritis; Status post total right knee replacement; Chronic bilateral low back pain, unspecified whether sciatica present Discharge Disposition: Home or Self Care Social [...] Mackenzie Pappas RN documented in this encounter Medications at [...] Description 03/27/2024 14:25 EST Hospital Encounter [facility] OR [address] [place] [address] Vishal Castillo MD [address] [place] [phone] 03/27/2024 14:25 EST - 03/27/2024 17:55 EST Surgery [facility] OR [address] [place] [id number] Vishal Castillo MD [address] [place] [address] Left Reverse Total Shoulder Arthroplasty [31290 (CPT??)] 04/08/2024 15:30 EST Post-op Visit [facility] Hand & Upper Extremity Program - [address] [place] [address] Vishal Castillo MD [address] [place] [phone] Scheduled Procedures Name Priority Associated Diagnoses Date/Ti me ARTHROPLASTY, SHOULDER, TOTAL Left rotator cuff tear arthropathy 03/27/2024 14:25 EST documented as of this encounter Procedures Procedure Name Priority Date/Time Associated Diagnosis Comments FL GUIDED LOCALIZATION, ASPIRATION, INJECTION, BIOPSY Routine 06/23/2023 13:29 EST Spinal stenosis 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 Dr. Rapp was present during the injection for intra-articular administration of the steroid and anesthetic agent. I have personally reviewed the images and the above interpretation and agree with the findings. [id number] Narrative 06/23/2023 17:40 EST FL GUIDED INJECT/ASPIR LEFT SHOUL ??06/23/2023 12:53 PM Signs and Symptoms/Comments: ?? left shoulder ??pain;M48.061:Spinal stenosis of lumbar 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;M25.512:Chronic left shoulder pain;G89.29:Chronic left shoulder pain;M75.22:Biceps tendonitis on left;M19.019:Shoulder arthritis;Z96.651:Status post total right knee replacement;M54.50:Chronic bilateral low back pain, unspecified whether sciatica present;G89.29:Chronic bilateral low back pain, unspecified Comparison: X-ray left shoulder 05/23/2022 Procedure: Left shoulder steroid and anesthetic injection under fluoroscopic guidance. Technique: The patient was met in the fluoroscopic suite where after proper identification, the risks, benefits, and alternatives to the procedure were explained in detail. The patient gave informed oral and written consent to proceed. The patient was then placed in supine position. A limited examination was performed and the appropriate site of entry on the left shoulder was marked. The left shoulder was prepped and draped in the usual sterile fashion. A 1% lidocaine solution was infiltrated at the access site. Subsequently, under fluoroscopic guidance and using strict sterile technique, a 22-gauge spinal needle was advanced into the left shoulder joint and fluoroscopic confirmation was obtained by injecting approximately 1 cc of Omnipaque 300 into the joint space. Following this, a suspension containing approximately 1 mL of Kenalog 40 mg/mL and 3 mL of 0.5% ropivacaine was injected into the joint. The needle was removed. Fluoroscopic spot images were saved during the procedure. ??Injection procedure performed by Dr.Jorge Arguello, vice president underwriting. The patient tolerated the procedure well. There were no immediate complications. Procedure Note Kevin Rapp MD - 06/23/2023 FL GUIDED INJECT/ASPIR LEFT SHOUL 06/23/2023 12:53 PM Signs and Symptoms/Comments: left shoulder pain;M48.061:Spinal stenosis of lumbar region withoutneurogenic claudication;M25.512:Chronic left shoulder pain;G89.29:Chronicleft shoulder pain;M75.22:Biceps tendonitis on left;M19.019:Shoulderarthritis;Z96.651:Status post total right knee replacement;M54.50:Chronicbilateral low back pain, unspecified whether sciaticapresent;G89.29:Chronic bilateral low back pain, unspecified Comparison: X-ray left shoulder 05/23/2022 Procedure: Left shoulder steroid and anesthetic injection under fluoroscopicguidance. Technique: The patient was met in the fluoroscopic suite where after properidentification, the risks, benefits, and alternatives to the procedurewere explained in detail. The patient gave informed oral and writtenconsent to proceed. The patient was then placed in supine position. A limited examination wasperformed and the appropriate site of entry on the left shoulder wasmarked. The left shoulder was prepped and draped in the usual sterilefashion. A 1% lidocaine solution was infiltrated at the access site. Subsequently, under fluoroscopic guidance and using strict steriletechnique, a 22-gauge spinal needle was advanced into the left shoulderjoint and fluoroscopic confirmation was obtained by injectingapproximately 1 cc of Omnipaque 300 into the joint space. Following this,a suspension containing approximately 1 mL of Kenalog 40 mg/mL and 3 mL of0.5% ropivacaine was injected into the joint. The needle was removed. Fluoroscopic spot images were saved during the procedure. Injectionprocedure performed by Dr.Jorge Arguello, vice president underwriting. The patient tolerated the procedure well. There were no immediatecomplications. IMPRESSION Successful intra-articular injection of steroid and anesthetic agent intothe left glenohumeral joint under fluoroscopic guidance. Dr. Rapp was present during the injection for intra-articularadministration of the steroid and anesthetic agent. I have personally reviewed the images and the above interpretation andagree with the findings. [id number] us Ashish Dejesus MD IMG FLUOROSCOPY ORDER ЕЛЕНА Final Result documented in this encounter Visit Diagnoses Diagnosis Arthritis of shoulder region, left- Primary Unspecified arthropathy, shoulder region Spinal stenosis of lumbar 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 Spinal stenosis, lumbar region, without neurogenic claudication Chronic left shoulder pain Pain in joint, shoulder region Biceps tendonitis on left Bicipital tenosynovitis Shoulder arthritis Unspecified arthropathy, shoulder region Status post total right knee replacement Chronic bilateral low back pain, unspecified whether sciatica present Left rotator cuff tear arthropathy documented in this encounter Administered Medications Inactive Administered Medications - up to 3 most recent administrations Medication Order MAR Action Action Date Dose Rate Site iohexoL (OMNIPAQUE 300) injection 50 mL 50 mL, intra-articular, Once in imaging, 1 dose, Starting on Mon06/23/23 at 1254, Until Mon06/23/23 at 1330, Routine, Imaging Protocol Orders Given 06/23/2023 13:30 EST 2 mL lidocaine 1 % injection 10 mL 10 mL, subcutaneous, Once in imaging, 1 dose, Starting on Mon06/23/23 at 1254, Until Mon06/23/23 at 1330, Routine, Imaging Protocol Orders Given 06/23/2023 13:30 EST 5 mL ROPivacaine (PF) (NAROPIN) 5 mg/mL (0.5 %) injection 5 mL 5 mL, other, Once in imaging, 1 dose, Starting on Mon06/23/23 at 1254, Until Mon06/23/23 at 1330, Routine, Imaging Protocol Orders Given 06/23/2023 13:30 EST 3 mL triamcinolone acetonide (KENALOG-40) injection 40 mg 40 mg, intra-articular, NOW X1, 1 dose, On Mon06/23/23 at 1315, Routine, Imaging Protocol Orders Given 06/23/2023 13:30 EST 40 mg documented in this encounter Care Teams Partridge Farmer Relationship Specialty Start Date End Date Barbara Conway NP [address] [place] [address] PCP - General 08/19/13 documented as of this encounter
--- OUTSIDE RECORDS SUMMARY | 2024-03-18 22:09 | XMS_ITS | Encounter Summary ---
Author Organization [facility] Address [address] [place] [address] Care Team Providers Care Medical Office Secretary Name Role Phone Barbara Conway WIND TURBINE ERECTOR Primary Care Provider [phone] Reason for Visit * Radiology Services (Routine/Next Available) - Specialty Report Received Specialty Diagnoses / Procedures Referred By Maryuri sarmiento Referred To Contact Diagnoses Special screening for osteoporosis Other specified disorders of bone density and structure, multiple sites Procedures DXA BONE DENSITY Barbara Conway, WIND TURBINE ERECTOR [address] [place] [address] Phone: tel: fax: [facility] Referral ID Status Reason Start Date Expiration Date V isits Requested Visits Authorized [id number] Specialty Report Received 08/12/2022 1 1 Encounter Details Date Type Department Care Team (Latest Contact Info) Description 10/17/2022 16:10 EDT Ancillary Procedure [facility] Endocrinology - [address] [phone] Special screening for osteoporosis; Other specified disorders of bone density and [...] - Inhaled Oxygen Concentration - - Weight 80.3 kg (177 lb) 10/17/2022 1615 EDT Height 156.5 cm (5' 1.61) 10/17/2022 1615 EDT Body Mass Index 32.78 10/17/2022 1615 EDT documented in this encounter Functional Status * [...] Info) Description 03/27/2024 14:[address] [facility] OR [address] [place] [address] Vishal Castillo MD [address] [place], [place] [phone] 03/27/2024 14:25 EST - 03/27/2024 17:55 EST Surgery [facility] Main [place] OR [address] [place], [place] [address] Vishal Castillo MD [address] [place] [phone] Left Reverse Total Shoulder Arthroplasty [09097 (CPT??)] 04/08/2024 15:30 EST Post-op Visit [facility] Hand & Upper Extremity Program - [address] [address] Vishal Castillo MD [address] [place] [phone] Scheduled Procedures Name Priority Associated Diagnoses Date/Ti me ARTHROPLASTY, SHOULDER, TOTAL Left rotator cuff tear arthropathy 03/27/2024 14:25 EST documented as of this encounter Procedures Procedure Name Priority Date/Time Associated Diagnosis Comments DXA WITH FOREARM Routine 10/17/2022 16:14 EDT Special screening for osteoporosis Other specified disorders of bone density and structure, multiple sites documented in this encounter Results * DXA WITH FOREARM (10/17/2022 16:14 EDT) Anatomical Region Laterality Modality Other us Barbara Conway NP IMG DEXA ORDERABLES Final Res ult documented in this encounter Visit Diagnoses Diagnosis Special screening for osteoporosis Other specified disorders of bone density and structure, multiple sites Left rotator cuff tear arthropathy documented in this encounter Care Teams Medical Office Secretary Relationship Specialty Start Date End Date Barbara Conway, [place] [address] [place] [address] PCP - General 08/19/13 documented as of this encounter
--- OUTSIDE RECORDS SUMMARY | 2024-03-18 22:09 | XMS_ITS | Encounter Summary ---
Author Organization [facility] Address [address] [place] [address] Care Team Providers Care Sales Office Administrator Name Role Phone ZoraidaBarbara Myla BLADE OPERATOR Primary Care Provider [phone] Reason for Referral * (Routine/Next Available) - Receiving Office to Obtain Authorization Specialty Diagnoses / Procedures Referred By Contac t Referred To Contact Procedures MR OUTSIDE IMAGES LEFT UPPER EXTREMITY Imaging, External Referral ID Status Reason Start Date Expiration Date Visits Requested Visits Authorized [id number] Receiving Office to Obtain Authorization 01/12/2024 1 1 Reason for Visit * (Routine/Next Available) - Receiving Office to Obtain Authorization Specialty Diagnoses / Procedures Referred By Contac t Referred To Contact Procedures MR OUTSIDE IMAGES LEFT UPPER EXTREMITY Imaging, External Referral ID Status Reason Start Date Expiration Date Visits Requested Visits Authorized [id number] Receiving Office to Obtain Authorization 01/12/2024 1 1 Encounter Details Date Type Department Care Team (Latest Contact Info) Description 12/18/2023 - 12/18/2023 23:59 EDT Hospital Encounter [facility] Secondary Reads [place] Discharge Disposition: Home or Self Care Social [...] Description 03/27/2024 14:25 EST Hospital Encounter [facility] OR [address] [place] [address] [phone] Vishal Castillo MD [address] [place] [phone] 03/27/2024 14:25 EST - 03/27/2024 17:55 EST Surgery [facility] OR [address] [place] [address] [phone] Vishal Castillo MD [address] [place] [phone] Left Reverse Total Shoulder Arthroplasty [52682 (CPT??)] 04/08/2024 15:30 EST Post-op Visit [facility] Hand & Upper Extremity Program - [place] [address] [place] [address] Vishal Castillo MD [address] [place] [phone] Scheduled Procedures Name Priority Associated Diagnoses Date/Ti me ARTHROPLASTY, SHOULDER, TOTAL Left rotator cuff tear arthropathy 03/27/2024 14:25 EST documented as of this encounter Procedures Procedure Name Priority Date/Time Associated Diagnosis Comments MR OUTSIDE IMAGES LEFT UPPER EXTREMITY Routine 12/18/2023 12:56 EDT documented in this encounter Results * MR OUTSIDE IMAGES LEFT UPPER EXTREMITY (12/18/2023 12:56 EDT) Narrative 01/12/2024 12:57 EDT This is a non-reportable exam. us External Imaging IMG OTHER IMAGING ORDERABLES Fi nal Result documented in this encounter Visit Diagnoses Not on filedocumented in this encounter Care Teams Sales Office Administrator Relationship Specialty Start Date End Date Barbara Conway, [place] [address] [place] [id number] PCP - General 08/19/13 documented as of this encounter
--- OUTSIDE RECORDS SUMMARY | 2024-03-18 22:09 | XMS_ITS | Encounter Summary ---
Author Organization [facility] Address [address] [place] [address] Care Team Providers Care Creamery Worker Name Role Phone ZoraidaBarbara Myla SWAGING MACHINE OPERATOR Primary Care Provider [phone] Encounter Details Date Type Department Care Team (Latest Contact Info) Description 04/26/2023 7:39 EST - 04/26/2023 23:59 EST Hospital Encounter [facility] Xray [address] [place], [place] [phone] Discharge Disposition: Home or Self Care Social [...] Info) Description 03/27/2024 14:25 EST Hospital Encounter [facility] [place] [address] [place] [address] [phone] Vishal Castillo MD [address] [place] [phone] 03/27/2024 14:25 EST - 03/27/2024 17:55 EST Surgery [facility] OR [address] [place] [address] [phone] Vishal Castillo MD [address] [place] [phone] Left Reverse Total Shoulder Arthroplasty [56188 (CPT??)] 04/08/2024 15:30 EST Post-op Visit [facility] Hand & Upper Extremity Program - [address] [address] Vishal Castillo MD [address] [place] [phone] Scheduled Procedures Name Priority Associated Diagnoses Date/Ti me ARTHROPLASTY, SHOULDER, TOTAL Left rotator cuff tear arthropathy 03/27/2024 14:25 EST documented as of this encounter Procedures Procedure Name Priority Date/Time Associated Diagnosis Comments PAIN CLINIC FL LUMBAR INJECTION Routine 04/26/2023 15:56 EST documented in this encounter Results * PAIN CLINIC FL LUMBAR INJECTION (04/26/2023 15:56 EST) Narrative 04/26/2023 15:56 EST This is a non-reportable exam. us Dickson PATEL IMG OTHER IMAGING ORDERABLES Final Result documented in this encounter Visit Diagnoses Not on filedocumented in this encounter Care Teams Creamery Worker Relationship Specialty Start Date End Date Barbara Conway, SWAGING MACHINE OPERATOR [address] [place] [address] PCP - General 08/19/13 documented as of this encounter
--- OUTSIDE RECORDS SUMMARY | 2024-03-18 22:09 | XMS_ITS | Encounter Summary ---
Author Organization [facility] Address [address] [place] [address] Care Team Providers Care Grove Worker Name Role Phone Barbara Conway EXERCISER Primary Care Provider [phone] Reason for Referral * Radiology Services (Routine/Next Available) - Authorization Not Required Specialty Diagnoses / Procedures Referred By Maryuri t Referred To Contact Diagnoses Chronic left shoulder pain Procedures XR SHOULDER LEFT 2 OR MORE VIEWS Vishal Castillo MD [address] [place] [phone] Phone: tel: fax: [facility] Referral ID Status Reason Start Date Expiration Date Visits Requested Visits Authorized [id number] Authorization Not Required 01/11/2024 1 1 Reason for Visit * Radiology Services (Routine/Next Available) - Authorization Not Required Specialty Diagnoses / Procedures Referred By Maryuri sarmiento Referred To Contact Diagnoses Chronic left shoulder pain Procedures XR SHOULDER LEFT 2 OR MORE VIEWS Vishal Castillo MD [address] [place] [phone] Phone: tel: fax: [facility] Referral ID Status Reason Start Date Expiration Date Visits Requested Visits Authorized [id number] Authorization Not Required 01/11/2024 1 1 Encounter Details Date Type Department Care Team (Latest Contact Info) Description 01/12/2024 10:42 EDT - 01/12/2024 23:59 EDT Hospital Encounter [facility] Xray [address] [place] [address] Chronic left shoulder pain Discharge Disposition: Home or Self Care Social [...] Info) Description 03/27/2024 14:25 EST Hospital Encounter [facility] [place] [address] [place] [address] [phone] Vishal Castillo MD [address] [place] [phone] 03/27/2024 14:25 EST - 03/27/2024 17:55 EST Surgery [facility] [place] [address] [place] [address] [phone] Vishal Castillo MD [address] [place] [phone] Left Reverse Total Shoulder Arthroplasty [26810 (CPT??)] 04/08/2024 15:30 EST Post-op Visit [facility] Hand & Upper Extremity Program - [address] [place] [address] Vishal Castillo MD [address] [place] [phone] Scheduled Procedures Name Priority Associated Diagnoses Date/Ti me ARTHROPLASTY, SHOULDER, TOTAL Left rotator cuff tear arthropathy 03/27/2024 14:25 EST documented as of this encounter Procedures Procedure Name Priority Date/Time Associated Diagnosis Comments XR SHOULDER LEFT 2 OR MORE VIEWS Routine 01/12/2024 10:59 EDT Chronic left shoulder pain documented in this encounter Results * XR SHOULDER LEFT 2 OR MORE [...] diffuse osteopenia. Soft tissues are grossly unremarkable. [id number] Narrative 01/18/2024 23:14 EDT EXAM/TECHNIQUE: XR SHOULDER LEFT 2 OR MORE VIEWS ??01/12/2024 10:44 AM HISTORY: AP, grashey mag marker, supine axillary lateral COMPARISON: Left shoulder radiographs dated May 23, 2022 and September 04, 2020. Resulting Agency Comment [id number] Procedure Note Roque Kay MD - 01/18/2024 [...] isdiffuse osteopenia. Soft tissues are grossly unremarkable. [id number] Vishal Castillo MD IMG DIAGNOSTIC IMAGING OR DERABLES Final Result documented in this encounter Visit Diagnoses Diagnosis Chronic left shoulder pain Pain in joint, shoulder region Left rotator cuff tear arthropathy documented in this encounter Care Teams Grove Worker Relationship Specialty Start Date End Date Barbara Conway NP [address] [place] [address] PCP - General 08/19/13 documented as of this encounter
--- OUTSIDE RECORDS SUMMARY | 2024-03-18 22:09 | XMS_ITS | Encounter Summary ---
Author Organization [facility] Address [address] [place] [address] Care Team Providers Care Winder Helper Name Role Phone Barbara Conway TECHNOLOGIES DIVISION CHAIR Primary Care Provider [phone] Reason for Referral * Consult (Routine/Next Available) - Specialty Report Received Specialty Diagnoses / Procedures Referred By Maryuri sarmiento Referred To Contact Orthopedic Surgery Diagnoses Chronic left shoulder pain Biceps tendonitis on left Shoulder arthritis Status post total right knee replacement Ahsish Dejesus MD [address] [place] [phone] Phone: tel: fax: [facility] Hand & Upper Extremity Program - [place] [address] Phone: tel: fax: Referral ID Status Reason Start Date Expiration Date Visits Requested Visits Authorized [id number] Specialty Report Received Specialty Services Required 11/20/2023 1 1 Question Answer Reason for Request: assess for left shoulder TSA Comments MRI at [facility] * Radiology Services (Routine/Next Available) - Closed Specialty Diagnoses / Procedures Referred By Maryuri sarmiento Referred To Contact Diagnoses Chronic left shoulder pain Biceps tendonitis on left Shoulder arthritis Status post total right knee replacement Procedures MR SHOULDER WO CONTRAST LEFT Ashish Dejesus MD [address] [place] [address] Phone: tel: fax: Referral ID Status Reason Start Date Expiration Date Visits Re quested Visits Authorized [id number] Closed 11/20/2023 1 1 Reason for Visit * Reason Comments Follow-up Pain Encounter Details Date Type Department Care Team (Late st Contact Info) Description 11/20/2023 9:30 EDT Office Visit [facility] Orthopedic Surgery - [facility] [address] [place] [address] Ashish Dejesus MD [address] [place] [phone] Chronic left shoulder pain (Primary Dx); Biceps tendonitis on left; Shoulder arthritis; Status post total right knee replacement Social History Tobacco Use Types Packs/Day Years [...] - Inhaled Oxygen Concentration - - Weight 78 kg (172 lb) 11/20/2023 0906 EDT Height 162.6 cm (5' 4) 11/20/2023 0906 EDT Body Mass Index 29.52 11/20/2023 0906 EDT documented in this encounter Functional Status [...] Mackenzie Vela RN documented in this encounter Progress Notes * Ashish Dejesus MD - 11/20/2023 0930 EDT Chief complaint left shoulder pain Subjective: This 78-year-old right-handed female is back in the office for my evaluation of her left severe glenohumeral arthritis and rotator cuff arthropathy. She states that the injection of her left shoulder which was done on 06/23/2023 did not last long as far as help. She has been having increasing muscle left shoulder pain and she feels the pain is anteriorly about the biceps muscle and she can hear a crunching sensation to the region of the shoulder itself. She describes no falling or radiculopathy associated with that. Objective: General shows a friendly female no acute distress and she is oriented x 3 vital signs are stable with a BMI 29.5 Neck exam adequate motion without pain. Shoulder examination: Left shoulder shows the patient have diminished range of motion and some atrophy about the shoulder girdle. Patient has forward flexion of the left shoulder to approximately 75 degrees with abduction is 70 degrees and she has the capacity to reach and scratch the middle of herback and her extra rotation is limited to about 35 degrees. There is a positive impingement sign tothe subacromial region and is a positive Walden sign and there is some pain about the proximal bicipital groove but she has the capacity to function her biceps tendon without pain there is no evidence of any pre-existing full tearing of the biceps tendon. Contralateral right shoulder shows adequate range of motion in all directions without provocative pain and there is some mild discomfort at the biceps anteriorly but no impingement sign noted. Neurovascular examination grossly normal upper extremity sensory examination light touch throughoutthe upper extremity dermatomes with adequate strength of flexion extension about the right shoulderwith the left shoulder having weakness as mentioned above specific with external and internal rotation X-rays: No new x-rays were obtained today bid. We did review the x-rays from 05/23/2022 of the shoulder Impression: #1 left shoulder severe glenohumeral arthritis and rotator cuff arthropathy with progressive continued weakness and pain #2 status post right TKA Dr. Otto 10/28/2019 stable #3 status post left TKA Dr. Prado in 2017 stable #4 diabetes mellitus type 2/hypertension/GERD/lumbosacral radiofrequency ablation May 2023 Plan: I spent a total of 28 minutes on this day of the encounter with the patient reviewing documenting and coordinating care as indicated in the note. At length we have talked about the shoulder pain and things to be done for that. We will obtain an MRI of the left shoulder to ascertain the quality of the rotator cuff and the bone marrow of the shoulder and we will have this patient be seen at [facility] for consideration of total shoulder arthroplasty for her. She states that the physical therapy has not worked in the injections. documented in this encounter Plan of Treatment Upcoming Encounters Date Type Department Care Team (Latest Contact Info) Description 03/27/2024 14:25 EST Hospital Encounter [facility] OR [address] [place] [address] [phone] Vishal Castillo MD [address] [place] [phone] 03/27/2024 14:25 EST - 03/27/2024 17:55 EST Surgery [facility] OR [address] [place] [address] [phone] Vishal Castillo MD [address] [place] [phone] Left Reverse Total Shoulder Arthroplasty [22133 (CPT??)] 04/08/2024 15:30 EST Post-op Visit [facility] Hand & Upper Extremity Program - [address] [address] Vishal Castillo MD [address] [place] [phone] Scheduled Orders Name Type Priority Associated Diagnoses Orde r Schedule MR SHOULDER WO CONTRAST LEFT Imaging Routine Chronic left shoulder pain Biceps tendonitis on left Shoulder arthritis Status post total right knee replacement Expected: 12/04/2023 (Approximate), Expires: 05/22/2025 Scheduled Procedures Name Priority Associated Diagnoses Date/Ti me ARTHROPLASTY, SHOULDER, TOTAL Left rotator cuff tear arthropathy 03/27/2024 14:25 EST Scheduled Referrals Name Type Priority Associated Diagnoses Order Schedule AMB CONS/FOLLOW UP ORTHOPEDICS - [facility] Outpatient Referral Routine/Next Available Chronic left shoulder pain Biceps tendonitis on left Shoulder arthritis Status post total right knee replacement Expected: 12/21/2023 (Approximate), Expires: 11/19/2024 documented as of this encounter Visit Diagnoses Diagnosis Chronic left shoulder pain- Primary Pain in joint, shoulder region Biceps tendonitis on left Bicipital tenosynovitis Shoulder arthritis Unspecified arthropathy, shoulder region Status post total right knee replacement Left rotator cuff tear arthropathy documented in this encounter Care Teams Winder Helper Relationship Specialty Start Date End Date Barbara Conway NP [address] [place] [address] PCP - General 08/19/13 documented as of this encounter
--- OUTSIDE RECORDS SUMMARY | 2024-03-18 22:09 | XMS_ITS | Encounter Summary ---
Author Organization [facility] Address [address] [place] [address] Care Team Providers Care Manhole Stripper Name Role Phone Henri Conwayi Myla LIBRARY TECHNOLOGY INSTRUCTOR Primary Care Provider [phone] Reason for Visit * Reason Comments Back Pain L3-L4/ L4-L5 MBB * Prior Authorization (Routine) - Specialty Report Received Specialty Diagnoses / Procedures Referred By Contact Referred To Contact Anesthesiology / Pain Medicine Diagnoses Spondylosis without myelopathy or radiculopathy, lumbar region L3-L4/ L4-L5 MBB 2 of 2 / pa pending Procedures IA INJ DX/THER AGNT PARAVERT FACET JOINT, LUMBAR/SAC, 1ST LEVEL IA INJ DX/THER AGNT PARAVERT FACET JOINT, LUMBAR/SAC, 2ND LEVEL PAIN CLINIC PROCEDURE [facility] Interventional Pain [address] [place] [address] Phone: tel: fax: Dickson Durham MBBS [address] [facility] [address] [place] [address] Phone: tel:[phone] fax:[phone] Referral ID Status Reason Start Date Expiration Date V isits Requested Visits Authorized [id number] Specialty Report Received 04/12/2023 08/09/2023 1 1 Encounter Details Date Type Department Care Team (Latest Contact Info) Description 04/26/2023 15:30 EST Office Visit [facility] Interventional Pain [address] [place], [place] [phone] Dickson Durham MBBS [address] [facility] [address] [place] [address] Spondylosis of lumbar region without [...] Sign Reading Time Taken Comments Blood Pressure 141/75 04/26/2023 1556 EST Pulse 84 04/26/2023 1556 EST Temperature 36.4 ??C (97.5 ??F) 04/26/2023 1447 EST Respiratory Rate 20 04/26/2023 1556 EST Oxygen Saturation 98% 04/26/2023 1447 EST Inhaled Oxygen Concentration - - Weight [...] 17:00 EDT Loud, Brigi t, RN * Because of a physical, mental, [...] * Patient Instructions* Frances Wall RN - 04/26/2023 15:30 EST [facility] [address] [address] Medial Branch Block Patient Instructions You underwent [...] with your results. PROCEDURE END TIME: (nurse) 3:50 PAIN RELIEF START TIME: PAIN RELIEF END [...] Progress Notes * Duglas Evans DO - 04/26/2023 1530 EST Patient Name: Aretha Garcia : 1945 Date of Service: 04/26/23 Chief Complaint: Chief Complaint Patient presents with Back Pain L3-L4/ L4-L5 MBB Telegraph Dispatcher: Dr. Durham Grey Iron Molder: Duglas Evans DO Procedure: Diagnostic lumbar medial [...] and new imaging were reviewed. Injection History: 04/26/2023: bilateral L3, L4, L5 MBBs 03/10/2023: bilateral L3, L4, L5 MBBs Physical Exam: Vitals: BP 141/75 (BP Cuff Location: Right arm, BP Patient Position: Sitting, BP Cuff Sizes: Adult,large) Pulse 84 Temp 36.4 ??C (97.5 ??F) (Tympanic) Resp 20 SpO2 98% General: Patient is alert and [...] anesthetized with 1% lidocaine. A 22 guage 3.5 inch spinal needle was inserted under fluoroscopic guidance to contact the junction of the superior articulating process and transverse process at the Lt L4, Rt L4, Lt L5, Rt L5, Lt Sacral Ala, and Rt Sacral Ala levels. Final needle position was confirmed with fluoroscopy. Aspiration was negative for blood or CSF. Next, 0.5 ml of 0.5% bupivacaine was injected at each site, the needles were restyletted and withdrawn. Fluoroscopic spot images weresaved during the procedure. There was no paresthesia [...] Duglas Evans DO PGY-5 Pain Medicine Fellow Attending attestation: I saw and examined the patient with fellow/resident. I agree with the findings and plan of care documented in this note. In addition, I was present and participated during the entire procedure. AMANDA Lunsford 04/26/2023 * Britt Rdz MA - 04/26/2023 1530 EST [facility] Rooming Note Does patient have a Oil Program Compliance Specialist? yes Is patient NPO? (Solids since midnight & liquids for 4 hrs) Blood Thinners: Is patient on Blood Thinners? no If yes, taking? If stopped, who authorized stopping? Related comments: [...] vaccination in the 2 weeks? no Other: Yes, both knees * Britt Rdz MA - 04/26/2023 1530 EST Oswestry Low Back Disability Questionnaire Pain Intensity Pain killers give moderate relief from pain (3) Personal Care (e.g. Washing, Dressing) I can [...] as long as I like (1) Standing I can stand as long as I want but it gives me extra pain (1) Sleeping Pain does not prevent me from sleeping well (0) Social Life My social life is normal but increases the degree of pain (1) Travelling I can travel anywhere but it gives me extra pain (1) Employment/Homemaking My normal homemaking/ job activities increase my pain, but I can still perform all that is requiredof me (1) * Frances Wall RN - 04/26/2023 1530 EST ATTENTION: An active Time-Out initiated by [...] Info) Description 03/27/2024 14:25 EST Hospital Encounter [facility] OR [address] [place] [address] [phone] Vishal Castillo MD [address] [place] [phone] 03/27/2024 14:25 EST - 03/27/2024 17:55 EST Surgery [facility] OR [address] [place], [place] [phone] Vishal Castillo MD [address] [place] [phone] Left Reverse Total Shoulder Arthroplasty [86259 (CPT??)] 04/08/2024 15:30 EST Post-op Visit [facility] Hand & Upper Extremity Program - [address] [place] [address] Vishal Castillo MD [address] [place] [phone] Scheduled Procedures Name Priority Associated Diagnoses [...] mL, radha-neural, NOW X1, 1 dose, On 04/26/23 at 1600, Routine Given by Other 04/26/2023 15:44 EST 3 mL documented in this encounter Care Teams Manhole Stripper Relationship Specialty Start Date End Date Barbara Conway, LIBRARY TECHNOLOGY INSTRUCTOR [address] [place] [address] PCP - General 08/19/13 documented as of this encounter
--- OUTSIDE RECORDS SUMMARY | 2024-03-18 22:09 | XMS_ITS | Encounter Summary ---
Author Organization [facility] Address [address] [place] [address] Care Team Providers Care Furnace Charger Name Role Phone ZoraidaBarbara Myla CAD PROGRAMMER Primary Care Provider [phone] Reason for Visit * Reason Onset Date Comments Appointment Related 12/20/2023 Results 12/20/2023 Encounter Details Date Type Department Care Team (Late st Contact Info) Description 12/20/2023 Telephone [facility] Interventional Pain [address] [facility] [place] [address] Dickson Durham MBBS [address] [facility] [address] [place] [address] Appointment Related; Results Social History Tobacco Use Types Packs/Day [...] encounter Miscellaneous Notes * Telephone Encounter - Aretha Romano - 12/21/2023 0959 EDT LMOVM for Pt to call back to schedule a repeat lumbar RFA at L3, L4 and L5 bilaterally per Nursing after results. * Telephone Encounter - Corina Pena RN - 12/20/2023 1307 EDT Injection History: 05/17/2023: lumbar radiofrequency ablation at bilateral L3, L4, L5 04/26/2023: bilateral L3, L4, L5 MBBs 03/10/2023: bilateral L3, L4, L5 MBBs 12/20/2023: pt did have her 6 months RFA follow up with recommendations to repeat when symptoms return. Forwarded to [facility] to obtain prior auth for repeat lumbar RFA at L3, L4 and L5 bilaterally. Pt has had her months follow up. * Telephone Encounter - Dixie Hutson - 12/20/2023 1126 EDT Date and type of procedure: Therapeutic lumbar radiofrequency ablation at bilateral L3, L4, L5 Provider: Dr. Durham Weeks/Months of relief: 7 Months % of relief: 100% Current pain score: 8 Improvement in function: yes Exercising, walking, sitting , standing , lying down, bending, and carrides, house work Reduction in pain medication: yes Conservative treatment: heat Next appointment: Pt is requesting repeat RFA. documented in this encounter Plan of Treatment Upcoming Encounters Date Type Department Care Team (Latest Contact Info) Description 03/27/2024 14:25 EST Hospital Encounter [facility] OR [address] [place] [address] [id number] Vishal Castillo MD [address] [place] [phone] 03/27/2024 14:25 EST - 03/27/2024 17:55 EST Surgery [facility] OR [address] [place] [address] [id number] Vishal Castillo MD [address] [place] [phone] Left Reverse Total Shoulder Arthroplasty [68235 (CPT??)] 04/08/2024 15:30 EST Post-op Visit [facility] Hand & Upper Extremity Program - [address] [place] [address] Vishal Castillo MD [address] [place] [phone] Scheduled Procedures Name Priority Associated Diagnoses Date/Ti me ARTHROPLASTY, SHOULDER, TOTAL Left rotator cuff tear arthropathy 03/27/2024 14:25 EST documented as of this encounter Visit Diagnoses Not on filedocumented in this encounter Care Teams Furnace Charger Relationship Specialty Start Date End Date Barbara Conway NP [address] [place] [address] PCP - General 08/19/13 documented as of this encounter
--- OUTSIDE RECORDS SUMMARY | 2024-03-18 22:09 | XMS_ITS | Encounter Summary ---
Author Organization [facility] Address [address] [place] [address] Care Team Providers Care Manager Mba Name Role Phone ZoraidaBarbara Myla GRAZING AIDE Primary Care Provider [phone] Reason for Visit * Reason Comments Follow-up Pain Encounter Details Date Type Department Care Team (Late st Contact Info) Description 07/10/2023 9:30 EDT Office Visit [facility] Orthopedic Surgery - [facility] [address] [place] [address] Ashish Dejesus MD [address] [place] [phone] Chronic left shoulder pain (Primary Dx); Biceps tendonitis on left; Shoulder arthritis; Status post total right knee replacement; Spinal stenosis of lumbar 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 Social History Tobacco Use Types Packs/Day Years Used Date Smoking Tobacco: Never Smokeless Tobacco: Never Tobacco Cessation:Counseling Given: [...] - - Weight 78 kg (172 lb) 07/10/2023 0901 EDT Height 162.6 cm (5' 4) 07/10/2023 0901 EDT Body Mass Index 29.52 07/10/2023 0901 EDT documented in this encounter Functional Status [...] Progress Notes * Ashish Dejesus MD - 07/10/2023 0930 EDT Chief complaint: There is a rash on my left chest after the injection? Subjective: This 78-year-old right-handed female is back in the office for my evaluation of her left shoulder where she recently had a guided left shoulder injection on 06/23/2023 for her severe glenohumeral arthritis and rotator cuff arthropathy. She had a history of an old humeral head fracture prior to this. She states that 3 days after the injection she developed a itchy rash about the anteriorleft chest wall but not at the shoulder itself. She has not had any fevers chills. She feels that the injection took away almost all the pain in her shoulder she has been very pleased with the range of motion she is at since that time. She also recently completed a lumbosacral spine radiofrequency ablation in May 2023 which is worked very nicely so she did not have much back pain Her right TKA done by Dr. Otto on 10/28/2019 continues to do well as does her left TKA done by Dr. Otto in 2017. She feels her diabetes is under control and she has no evidence of any radiculopathy or swellingabout the left shoulder. Objective: General shows a friendly female no acute distress and she is oriented x 3 and vital signs are stable with a BMI of 29.5 Neck exam adequate motion without pain Spine exam there is seemingly a straight spine without obvious kyphoscoliosis with a negative straight leg raising bilaterally and there is only minimal discomfort about the paralumbar region. Pelvis examination: The patient has adequate range of motion of left hip and right hip to internal rotation external rotation flexion extension and abduction without pain. No IT band pain or trochanteric bursitis pain Knee examination: Grossly normal-appearing Shoulder examination: The left shoulder shows no effusion or swelling and there is no rash anywhereabout the region the shoulder where the injection was and she has a papular rash along the anteriorsuperior chest wall on the left side above her breast that does not seem to be related to the shoulder itself. This shows some discrete dozen or so papular red areas with no other macular rash seen. C ontralateral right shoulder has none. Range of motion left shoulder is full today and there is no evidence of any impingement neuropathy seen with this. She has good strength of the entire left shoulder. Neurovascular examination grossly normal upper extremity sensory examination light touch throughoutthe dermatomes with adequate strength of flexion-extension the muscle groups. X-rays: No new x-rays were obtained today but we did review the x-rays of the shoulder from 05/23/2022 Impression: #1 good response from guided left shoulder injection for glenohumeral arthritis, rotator cuff arthropathy status post old humerus head fracture #2 left anterior chest wall papular rash felt to be unrelated to injection of shoulder but possiblyfrom topical agent used? #3 status post right TKA 10/28/2019 Dr. Otto/status post left TKA Dr. Otto 2016 #4 diabetes mellitus type 2/hypertension/GERD #5 good response to radiofrequency ablation of the lumbar spine May 2023 Plan: I spent a total of 28 minutes on this day of the encounter with the patient reviewing documenting and coordinating care as indicated. We will have this patient use a small dose of diclofenac gel topical salve for the rash rather than cortisone cream at the present time and this will not affect her diabetes secondary to the gel nature of this not going into the bloodstream. If this is not working after 3 to 4 days the patient will call me and we will prescribe a cortisone cream for this. We did see her back in 3 to 4 months and she knows that she could have a recurrent injection in the left shoulder in a guided fashion if this starts to come back at that time.. documented in this encounter Plan of Treatment Upcoming Encounters Date Type Department Care Team (Latest Contact Info) Description 03/27/2024 14:[address] [facility] OR [address] [place] [address] [id number] Vishal Castillo MD [address] [place] [phone] 03/27/2024 14:25 EST - 03/27/2024 17:[address] [facility] [place] [address] [place] [address] [phone] Vishal Castillo MD [address] [place] [phone] Left Reverse Total Shoulder Arthroplasty [89080 (CPT??)] 04/08/2024 15:30 EST Post-op Visit [facility] Hand & Upper Extremity Program - [address] [place] [address] Vishal Castillo MD [address] [place] [phone] Scheduled Procedures Name Priority Associated Diagnoses Date/Ti me ARTHROPLASTY, SHOULDER, TOTAL Left rotator cuff tear arthropathy 03/27/2024 14:25 EST documented as of this encounter Visit Diagnoses Diagnosis Chronic left shoulder pain- Primary Pain in joint, shoulder region Biceps tendonitis on left Bicipital tenosynovitis Shoulder arthritis Unspecified arthropathy, shoulder region 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
--- OUTSIDE RECORDS SUMMARY | 2024-03-18 22:09 | XMS_ITS | Encounter Summary ---
Author Organization [facility] Address [address] [place] [address] Care Team Providers Care Director Of Curriculum And Instruction Name Role Phone Barbara Conway NUTRITION HELPER Primary Care Provider [phone] Reason for Visit * Reason Comments Back Pain Bilateral * Office Procedure (Routine) - Authorized Specialty Diagnoses / Procedures Referred By Maryuri sarmiento Referred To Contact Pain Medicine Diagnoses Spondylosis of lumbar region without myelopathy or radiculopathy Procedures DE DSTR NROLYTC AGNT PARVERTEB FCT SNGL LMBR/SACRAL DE DSTR NROLYTC AGNT PARVERTEB FCT ADDL LMBR/SACRAL [facility] Interventional Pain [address] [place] [address] Phone: tel: fax: [facility] Interventional Pain [address] [place] [address] Phone: tel: fax: Referral ID Status Reason Start Date Expiration Date V isits Requested Visits Authorized [id number] Authorized 05/10/2023 09/06/2023 1 1 Encounter Details Date Type Department Care Team (Latest Contact Info) Description 05/17/2023 13:00 EST Office Visit [facility] Interventional Pain [address] [place] [address] Dickson Durham MBBS [address] [place] [address] [address] [place] [address] Spondylosis of lumbar region without [...] Sign Reading Time Taken Comments Blood Pressure 158/77 05/17/2023 1342 EST Pulse 65 05/17/2023 1342 EST Temperature 35.9 ??C (96.7 ??F) 05/17/2023 1251 EST Respiratory Rate 16 05/17/2023 1251 EST Oxygen Saturation 100% 05/17/2023 1251 EST Inhaled Oxygen Concentration - - Weight [...] Date of Assessment Author No 10/28/2019 17:00 KIMT Mackenzie Pappas RN * Do you have [...] this encounter Patient Instructions * Patient Instructions* Katya De Santiago RN - 05/17/2023 13:00 EST [facility] [address] [address] Patient Instructions You have had your Radiofrequency [...] Barriers: None Outcomes: independent and verbalized understanding KATYA DE SANTIAGO RN documented in this encounter Progress Notes * Poly Wilks MA - 05/17/2023 1300 EST [facility] Rooming Note Does patient have a Vacuum Extractor Operator? yes Is patient NPO? (Solids since midnight & liquids for 4 hrs) no Blood Thinners: Is patient on Blood Thinners? no If yes, taking? If stopped, who authorized stopping? Related comments: Infections: Any recent infections, fever of illnesses? no If on antibiotics, is it 7-10 days past the date of completion of antibiotics? Keflex for before the dentist per patient : (for females of child-bearing age) Is there a chance current ? Do you have any type of implanted device? no Vaccination: Have you had or are you planning to have a vaccination in the 2 weeks? no Other: Bilateral knee replaced per pateint * Dickson Durham MBBS - 05/17/2023 1300 EST Patient Name: Aretha Garcia : 1945 Date of Service: 05/17/2023 Requesting physician: Dickson Durham Hide Sorter: AMANDA Lunsford Electric Sign Wirer: None Procedure: Therapeutic lumbar radiofrequency ablation at bilateral L3, L4, L5 Interval History: Details of the current complaint are thoroughly described in the consultation notes from Dickson Durham's last encounter including pain onset, location, course, workup, therapeutic attempts, and associated functional limitations. The patient reports no recent changes in the character, quality, or distribution of the pain. There are no recent onset of new associated symptoms such as changes in strength, sensation, or bladder control. All previous medical records including current medications, anticoagulation status, any signs of current infection, and new imaging were reviewed. Injection History: 05/17/2023: lumbar radiofrequency ablation at [...] known recent infections. Physical Exam: Vitals: BP (!) 158/77 (BP Cuff Location: Right arm, BP Patient Position: Sitting) Pulse 65 Temp35.9 ??C (96.7 ??F) (Tympanic) Resp 16 SpO2 100% General: Patient is alert and oriented, no [...] see additional documentation in this encounter. * Katya De Santiago RN - 05/17/2023 1300 EST ATTENTION: This Checklist should be reviewed with the patient, provider, nurse/MA, and landscape technician in the room prior to local anesthetic administration. Site marking is to be done prior to patient being put in to position, preferably when initial exam is done. Sterile field, meds, abd flouro images should be prepared prior to the FINAL VERIFICATION/TIME-OUT. All activity in the room will cease so all team members participate in the surgical brief and have meaningful communication. The Attending is responsible for leading the final verification/boothe moment process. The Nurse/MA will have in her possession the signed consent and the checklist when the surgical pause is performed so written and verbal verification are concluded to be in agreement. [Verified] Patient identifier #1: Full Name [Verified] Patient Identifier #2: Date of [Verified] Allergy to iodine, steroids, local anesthetics, band-aids? [Verified] Location of pain: Patient response: Left vs Right; cervical, thoracic, lumbar, etc. (verified written on consent) [Verified] Site marked [Verified] Safety devices in place: Grounding pad; X-rays available. [Verified] Consent signed in chart [Verified] Consented procedure matches scheduled procedure. Thermal RFA parameters: Temp (Celcius): 80 Time (Seconds): 150 xxxxxxxxxxxxxxxxxx xxxxxxxxxxxxxxxxxxxx xxxxxxxxxxxxxxxxxxxx Location Sensory: 50 Hz Motor: 2 Hz Rt L5 lauren Negative xxxxxxxxxxxxxxxxxxx xxxxxxxxxxxxxxxxxxxxx xxxxxxxxxxxxxxxxxxxxx Rt L4 lauren Negative xxxxxxxxxxxxxxxxxxx xxxxxxxxxxxxxxxxxxxxx xxxxxxxxxxxxxxxxxxxxx Rt L3 lauren Negative xxxxxxxxxxxxxxxxxxx xxxxxxxxxxxxxxxxxxxxx xxxxxxxxxxxxxxxxxxxxx Lt L5 lauren Negative xxxxxxxxxxxxxxxxxxx xxxxxxxxxxxxxxxxxxxxx xxxxxxxxxxxxxxxxxxxxx Lt L4 lauren Negative xxxxxxxxxxxxxxxxxxx xxxxxxxxxxxxxxxxxxxxx xxxxxxxxxxxxxxxxxxxxx Lt L3 lauren Negative xxxxxxxxxxxxxxxxxxx xxxxxxxxxxxxxxxxxxxxx xxxxxxxxxxxxxxxxxxxxx documented in this encounter Plan of Treatment Upcoming Encounters Date Type Department Care Team (Latest Contact Info) Description 03/27/2024 14:25 EST Hospital Encounter [facility] OR [address] [place] [address] Vishal Castillo MD [address] [place] [phone] 03/27/2024 14:25 EST - 03/27/2024 17:55 EST Surgery [facility] [address] [place], [place] [id number] Vishal Castillo MD [address] [place] [phone] Left Reverse Total Shoulder Arthroplasty [87425 (CPT??)] 04/08/2024 15:30 EST Post-op Visit [facility] Hand & Upper Extremity Program - [address] [place] [address] Vishal Castillo MD [address] [place] [phone] Scheduled Procedures Name Priority Associated [...] Rate Site BUPivacaine (PF) (MARCAINE) 0.5% injection 5 mL 5 mL, radha-neural, NOW X1, 1 dose, On Mon05/17/23 at 1345, Routine Given by Other 05/17/2023 13:31 EST 5 mL methylPREDNISolone ACETATE (DEPO-MEDROL) injection 80 mg 80 mg, radha-neural, NOW X1, 1 dose, On Mon05/17/23 at 1345, Routine Given by Other 05/17/2023 13:32 EST 80 mg documented in this encounter Care Teams Director Of Curriculum And Instruction Relationship Specialty Start Date End Date Barbara Conway, [place] [address] [place] [address] PCP - General 08/19/13 documented as of this encounter
--- OUTSIDE RECORDS SUMMARY | 2024-03-18 22:09 | XMS_ITS | Encounter Summary ---
Author Organization [facility] Address [address] [place] [address] Care Team Providers Care Hide And Skin Colerer Name Role Phone Barbara Conway FOREIGN DIPLOMAT Primary Care Provider [phone] Reason for Referral * Radiology Services (Routine/Next Available) - Receiving Office to Obtain Authorization Specialty Diagnoses / Procedures Referred By Maryuri sarmiento Referred To Contact Diagnoses Encounter for screening mammogram for malignant neoplasm of breast Procedures MA BREAST SCREENING CLOVIS BILATERAL Barbara Conway NP [address] [place] [address] Phone: tel: fax: [facility] Referral ID Status Reason Start Date Expiration Date Visits Requested Visits Authorized [id number] Receiving Office to Obtain Authorization 05/30/2022 1 1 Reason for Visit * Radiology Services (Routine/Next Available) - Receiving Office to Obtain Authorization Specialty Diagnoses / Procedures Referred By Maryuri sarmiento Referred To Contact Diagnoses Encounter for screening mammogram for malignant neoplasm of breast Procedures MA BREAST SCREENING CLOVIS BILATERAL Barbara Conway NP [address] [place] [address] Phone: tel: fax: [facility] Referral ID Status Reason Start Date Expiration Date Visits Requested Visits Authorized [id number] Receiving Office to Obtain Authorization 05/30/2022 1 1 Encounter Details Date Type Department Care Team (Latest Contact Info) Description 02/20/2023 12:44 EDT - 02/20/2023 23:59 EDT Hospital Encounter [facility] Breast Imaging - [facility] [address] [place] [address] Encounter for screening mammogram for malignant neoplasm [...] - - Weight 78 kg (172 lb) 02/20/2023 1356 EDT Height 162.6 cm (5' 4) 02/20/2023 1356 EDT Body Mass Index 29.52 02/20/2023 1356 EDT documented in this encounter Functional Status [...] EDMackenzie Pickard RN documented in this encounter Medications at [...] EST Hospital Encounter [facility] OR [address] [place] [address] [id number] Vishal Castillo MD [address] [place] [phone] 03/27/2024 14:25 EST - 03/27/2024 17:55 EST Surgery [facility] OR [address] [place], [place] [phone] Vishal Castillo MD [address] [place] [phone] Left Reverse Total Shoulder Arthroplasty [85552 (CPT??)] 04/08/2024 15:30 EST Post-op Visit [facility] Hand & Upper Extremity Program - [address] [address] Vishal Castillo MD [address] [place] [phone] Scheduled Procedures Name Priority Associated Diagnoses Date/Ti me ARTHROPLASTY, SHOULDER, TOTAL Left rotator cuff tear arthropathy 03/27/2024 14:25 EST documented as of this encounter Procedures Procedure Name Priority Date/Time Associated Diagnosis Comments MA BREAST SCREENING CLOVIS BILATERAL Routine 02/20/2023 13:58 EDT Encounter for screening mammogram for malignant neoplasm of breast documented in this encounter Results * MA BREAST SCREENING CLOVIS BILATERAL (02/20/2023 13:58 EDT) Anatomical Region Laterality Modality Breast Bilateral Mammography 02/20/2023 14:5 2 EDT Impressions 02/20/2023 14:52 EDT Negative, no evidence of malignancy. RECOMMENDATION: Routine screening mammography is recommended. OVERALL ASSESSMENT: BI-RADS 1: Negative These results will be communicated to your patient via a lay letter from Radiology. If any additional imaging is needed we will contact your patient directly. [id number] Narrative 02/20/2023 14:52 EDT MA BREAST SCREENING CLOVIS BILATERAL ??02/20/2023 1:40 PM History: Routine;Z12.31:Encounter for screening mammogram for malignant neoplasm of breast Comparison: ??Comparison has been made to previous images . ? Technique: Routine 3D tomosynthesis with synthesized 2D views with CAD Breast Composition: There are scattered areas of fibroglandular density. Bilateral Breast Findings: ??No significant masses, calcifications or other abnormalities are seen. Procedure Note Kina Barger MD - 02/20/2023 MA BREAST SCREENING CLOVIS BILATERAL 02/20/2023 1:40 PM History: Routine;Z12.31:Encounter for screening mammogram for malignantneoplasm of breast Comparison: Comparison has been made to previous [...] is needed we will contact yourpatient directly. [id number] Barbara Conway NP IMG MAMMOGRAPHY ORDERABLES Fi nal Result documented in this encounter Visit Diagnoses Diagnosis Encounter for screening mammogram for malignant neoplasm of breast Other screening mammogram Left rotator cuff tear arthropathy documented in this encounter Care Teams Hide And Skin Colerer Relationship Specialty Start Date End Date Barbara Conway, [place] [address] [place] [id number] PCP - General 08/19/13 documented as of this encounter
--- OUTSIDE RECORDS SUMMARY | 2024-03-18 22:09 | XMS_ITS | Encounter Summary ---
Author Organization [facility] Address [address] [place] [address] Care Team Providers Care Drafter Castings Name Role Phone Barbara Conway SPECTROGRAPHER Primary Care Provider [phone] Reason for Visit * Reason Comments Back Pain Patient is here for lower back pain into both legs * Consult (Routine/Next Available) - New Request Specialty Diagnoses / Procedures Referred By Maryuri sarmiento Referred To Contact Pain Medicine Diagnoses Spinal stenosis of lumbar 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 Duglas Mccullough PA-C Phone: tel: fax: [facility] Interventional Pain [address] [place] [address] Phone: tel: fax: Referral ID Status Reason Start Date Expiration Date Visits Requested Visits Authorized [id number] New Request Specialty Services Required 01/16/2023 1 1 Encounter Details Date Type Department Care Team (Latest Contact Info) Description 02/01/2023 11:00 EDT Initial consult [facility] Interventional Pain [address] [place] [address] Dickson Durham MBBS [address] [facility] [address] [place] [address] Spinal stenosis of lumbar 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 (Primary Dx) Social History Tobacco Use Types [...] Sign Reading Time Taken Comments Blood Pressure 153/70 02/01/2023 1032 EDT Pulse 67 02/01/2023 1032 EDT Temperature 36.2 ??C (97.2 ??F) 02/01/2023 1032 EDT Respiratory Rate 16 02/01/2023 1032 EDT Oxygen Saturation 99% 02/01/2023 1032 EDT Inhaled Oxygen Concentration - - Weight [...] of Assessment Author No 10/28/2019 17:00 EDT Mcakenzie Pappas RN documented as of this encounter Mental Status * Because of a physical, mental, or emotional condition, do you have serious difficulty concentrating, remembering, or making decisions? (5 years old or older) Answer Entry Date Author No 10/28/2019 17:00 EDT Mackenzie Pappas RN documented in this encounter Progress Notes * Allen Galan MD - 02/01/2023 1100 EDT [facility] OP PAIN CONSULT Patient Name: Aretha Garcia Date of Service: 02/01/2023 Requesting Physician: Duglas Mccullough Chief Complaint: Chief Complaint Patient presents with ??? Back Pain Patient is here for lower back pain into both legs Physician Requesting Consultation: Duglas Mccullough History of Present Illness: Patient presents at the request of Duglas Mccullough for initial evaluationand treatment recommendations of the patient's pain. Ms. Aretha Garcia is a 77 y.o. female who hasa past medical history of Anesthesia complication (severe N/V. Had local for other knee and it worked great), Anserine bursitis (Right anserine tendinitis/bursitis), Arrhythmia (10/24/19 EKG NSR with 1st degree AV block), Back pain, Bilateral bunions, Colon cancer (HCC- CMS) (cancerous polyp removed Apr 2005), Colon polyp, Complication of anesthesia (nausea ), Diabetes mellitus (HCC-CMS) (10/18/19 A1C 6.5 . Fs daily 120 in the am), Exercise involving housework, Exercise involving walking, GERD (martínez roesophageal reflux disease) (10/24/19 med controlled. able to lay flat), Heart murmur, High cholesterol (10/24/19 med controlled), History of epidural anesthesia, History of general anesthesia, Hypertension (10/24/19 med controlled), Joint replaced, Knee joint replacement status (left), Mitral valve disease (prolapsed mitral valve), Nausea & vomiting, Obesity, and Rectal cancer (HCC- CMS) (stage 1 colo rectal cancer). The patient presents to the pain clinic concerning her chronic low back pain. This has been ongoingfor several years and she was referred to our clinic from ortho spine. Pain in belt-like distribution in low back and intermittently radiates down to BLE into the feet in L4, L5 dermatomal distribution primarily. This is worst in the morning however fairly nonspecific with regards to which activities tend to trigger her pain throughout the day. She has been using a heating pad multiple times a day along with gabapentin and tylenol, this has given her some partial relief. She remains active despite using a cane to ambulate and participates in a exercise program, has completed formal PT in the past. She has taken PO steroids twice in recent months for acute flares. She was also seen in the EDdue to some urinary incontinence symptoms however it was determined that this was not cauda equina and today denies any progression or worsening of this. Patient currently denies any bowel incontinence, progressive weakness, saddle numbness, unexplained fever, trauma or unexplained weight loss. 02/01/2023 10:32 Pain Score (from Vitals) Initial score 5 Final score 5 Location 4 Past Medical History: Diagnosis Date ??? Anesthesia complication severe N/V. Had local for other knee and it worked great ??? Anserine bursitis Right anserine tendinitis/bursitis ??? Arrhythmia 10/24/19 EKG NSR with 1st degree AV block ??? Back pain ??? Bilateral bunions ??? Colon cancer ([facility]) cancerous polyp removed Apr 2005 ??? Colon polyp ??? Complication of anesthesia nausea ??? Diabetes mellitus ([facility]) 10/18/19 A1C 6.5 . Fs daily 120 in the am ??? Exercise involving housework ??? Exercise involving walking ??? GERD (gastroesophageal reflux disease) 10/24/19 med controlled. able to lay flat ??? Heart murmur ??? High cholesterol 10/24/19 med controlled ??? History of epidural anesthesia ??? History of general anesthesia ??? Hypertension 10/24/19 med controlled ??? Joint replaced ??? Knee joint replacement status left ??? Mitral valve disease prolapsed mitral valve ? ? Nausea & vomiting ??? Obesity ??? Rectal cancer ([facility]) stage 1 colo rectal cancer Allergies: Allergies Allergen Reactions ??? Scopolamine halluciation ??? Robaxin [Methocarbamol] halluciation ??? Sulfa (Sulfonamide Antibiotics) Rash ??? Tramadol halluciation ??? Zocor [Simvastatin] Other (See Comments) severe leg cramps Physical Exam: Vitals: BP (!) 153/70 Pulse 67 Temp 36.2 ??C (97.2 ??F) (Tympanic) Resp 16 SpO2 99% General: Patient is alert and oriented x3, no acute distress Skin: clear, warm, dry and intact and no rashes, bruises or petechiae noted Lumbar Spine: Nontender to palpation of the lumbar paraspinal muscles, lumbar facet loading test positive, straight leg raising negative to radicular pain bilaterally Sacroiliac joint: Nontender to palpation bilaterally, LILIAN test negative bilaterally Hip: full ROM, no pain with rotation Lower Extremity: Strength testing 5/5 bilaterally, sensation intact to light touch bilaterally Imaging: I have independently reviewed the images listed below XR LUMBAR SPINE 2-3 VIEWS Result Date: 01/17/2023 PROCEDURE INFORMATION: Exam: XR Lumbosacral Spine Exam date and time: 01/16/2023 1:13 PM Age: 77 years old Clinical indication: Lumbago with sciatica, unspecified side; Other: Acute back pain with sciatica; Additional info: Acute mesfin pain with sciatica TECHNIQUE: Imaging protocol: Radiologic exam ofthe lumbosacral spine. Views: 2 or 3 views. COMPARISON: MR LUMBAR SPINE WO CONTRAST 10/20/2021 7:12 PM FINDINGS: Bones/joints: Narrowed lumbar interspaces with endplate osteophyte formation. Slight retrolisthesis of T12 on L1, L1-L2, L2 on L3. Slight anterolisthesis of L4 on L5. Advanced degenerative arthritis in the lumbar facets. Soft tissues: Unremarkable. Advanced degenerative arthritis in the lumbar spine THIS DOCUMENT HAS BEEN ELECTRONICALLY SIGNED BYASHLEY ROSE MD FOR ANY QUESTIONS OR CONCERNS REGARDING THIS REPORT PLEASE CALL [facility] AT [phone] Lumbar MRI 10/20/22 IMPRESSION 1. Severe central canal stenosis at L4-L5 with near complete effacement of the spinal canal from large disc bulge and severe bilateral facet arthropathy. Complete effacement of the thecal sac with high-grade crowding of the cauda equina and direct mass effect on the L5 nerve roots in the lateral recesses. Severe bilateral neural foraminal stenosis with mass effect on the L4 nerve roots. 2. Moderate central canal stenosis at L3-L4. Disc bulge and severe facet arthropathy cause partial effacement of the lateral recesses with impression on the left L4 nerve root. Severe left and moderate right neural foraminal stenosis. Facet arthropathy contacts the L3 nerve roots. 3. Moderate central canal stenosis at L2-L3 from disc bulge and retrolisthesis. Partial effacement of the lateral recesses with mass effect on the left L3 nerve root from facet arthropathy and disc bulge. Severe left neural foraminal stenosis with direct impression on the left L2 nerve root from facet arthropathy. 4. Severe right neural foraminal stenosis at L1-L2 with facet arthropathy contacting the right L1 nerve root. 5. Disc bulge and neural foraminal disc protrusions at L5-S1. Partial effacement of the lateral recesses with impression on the S1 nerve roots, left greater than right. Severe proximal bilateral neural foraminal stenosis with contact of the L5 nerve roots. 6. Possible disc sequestration at T11-T12 in the left central position, incompletely evaluated seen only on sagittal imaging. 7. Adventitial bursitis at the L4-L5 spinous process interval, which can be associated with Baastrup's disease. Assessment: 1. Spinal stenosis of lumbar 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 Plan: Ms. Aretha Garcia is a 77 y.o. female who has a past medical history of Anesthesia complication (severe N/V. Had local for other knee and it worked great), Anserine bursitis (Right anserine tendinitis/bursitis), Arrhythmia (10/24/19 EKG NSR with 1st degree AV block), Back pain, Bilateral bunions, Colon cancer ([facility]) (cancerous polyp removed Apr 2005), Colon polyp, Complication of anesthesia (nausea ), Diabetes mellitus ([facility]) (10/18/19 A1C 6.5 . Fs daily 120 in the am), Exercise involving housework, Exercise involving walking, GERD (gastroesophageal reflux disease) (10/24/19 med controlled.able to lay flat), Heart murmur, High cholesterol (10/24/19 med controlled), History of epidural anesthesia, History of general anesthesia, Hypertension (10/24/19 med controlled), Joint replaced, Knee joint replacement status (left), Mitral valve disease (prolapsed mitral valve), Nausea & vomiting,Obesity, and Rectal cancer ([facility]) (stage 1 colo rectal cancer). The patient presents to the painclinic for initial consultation and treatment recommendations concerning her chronic low back and lower extremity pain. Lumbar imaging shows severe multilevel stenosis worst at L4-5 with accompanying facet arthropathy at multiple levels present. We discussed injections as a possible therapy however their efficacy may be limited given the presence of multiple potential pain generators in her spine. We discussed MBB/RFA vs ILESI given that her pain is caused by most likely a combination of lumbar stenosis and intermittent claudication as well as facet arthropathy. 1. Interventional: we will have her come to clinic for L3, L4, L5 bilateral MBBs. Given recent steroid exposure we would consider a L5-S1 ILESI in 2 months should she not get relief from the MBB/RFA 2. Medication Recommendations: CPM 3. Alternative Recommendations: continue HEP 4. Follow up plan: RTC as above I spent a total of 45 minutes on the date of this encounter meeting with the patient and reviewing documentation/coordinating care as described in the above note. No procedures were performed at the time of the visit. Allen Galan MD Interventional Pain Medicine Fellow (PGY-5) 02/01/23 Attending attestation: I saw and examined the patient with fellow/resident. I agree with the findings and plan of care documented in this note. AMANDA Lunsford 02/01/2023 documented in this encounter Plan of Treatment Upcoming Encounters Date Type Department Care Team (Latest Contact Info) Description 03/27/2024 14:25 EST Hospital Encounter [facility] [address] [place] [address] [phone] Vishal Castillo MD [address] [place] [phone] 03/27/2024 14:25 EST - 03/27/2024 17:55 EST Surgery [facility] [address] [place] [address] [phone] Vishal Castillo MD [address] [place] [phone] Left Reverse Total Shoulder Arthroplasty [34671 (CPT??)] 04/08/2024 15:30 EST Post-op Visit [facility] Hand & Upper Extremity Program [place] [address] Vishal Castillo MD [address] [place] [phone] Scheduled Procedures Name Priority Associated Diagnoses Date/Ti me ARTHROPLASTY, SHOULDER, TOTAL Left rotator cuff tear arthropathy 03/27/2024 14:25 EST documented as of this encounter Visit Diagnoses Diagnosis Spinal stenosis of lumbar 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- Primary Spinal stenosis, lumbar region, without neurogenic claudication Left rotator cuff tear arthropathy documented in this encounter Orders Outpatient Referral Count Last Ordered Date Fir st Ordered Date AMB CONS/FOLLOW UP PAIN INTERVENTIONAL 1 documented in this encounter Care Teams Drafter Castings Relationship Specialty Start Date End Date Barbara Conway, [place] [address] [place] [address] PCP - General 08/19/13 documented as of this encounter
--- OUTSIDE RECORDS SUMMARY | 2024-03-18 22:09 | XMS_ITS | Encounter Summary ---
Author Organization [facility] Address [address] [place] [address] Care Team Providers Care Wood Cut Engraver Name Role Phone JuanBarbara whitney Myla POLISH MAKER Primary Care Provider [phone] Reason for Visit * Reason Onset Date Comments Results 03/13/2023 Encounter Details Date Type Department Care Team (Late st Contact Info) Description 03/13/[address] [facility] Interventional Pain [address] [place], [place] [phone] Corina Pena RN Results Social History Tobacco Use Types [...] EDMackenzie Pickard RN documented in this encounter Miscellaneous Notes * Telephone Encounter - Corina Pena RN - 03/13/2023 0817 EST ----- Message from Frances Wall RN sent at 03/10/2023 13:33 EST ----- Regarding: MBB results B/L L3, L4, L5 MBB Gargya/Selko Injection History: 03/10/2023: bilateral L3, L4, L5 Follow up call - diagnostic injection Injection date and procedure: Location of pain/symptoms that the patient is calling about: back bilateral Initial pain score: 5/10 Post procedure pain score: 2/10 Current pain level: 6 (scale 0-10: 0 is no pain, 10 is worst pain ever) How many hours of relief from pain/symptoms on the day of the injection? 6 Was there significant functional relief or functional improvement? Yes (yes = 80% or greater relief) Which daily activities was the patient able to do better? walking, sitting and able to walk barefeet in her apartment, vacuumming, bend, push Patient additional feedback: Pt states she noted significant improvement in physical functioning with more flexibility, increased ROM and a decrease in pain and improvement in ADL's. Next step/appt per MD plan: 2nd MBB is scheduled Forward to [facility] to obtain prior auth for bilateral lumbar RFA at L3, L4 and L5. Please schedule 2 weeks after 2nd MBB. documented in this encounter Plan of Treatment Upcoming Encounters Date Type Department Care Team (Latest Contact Info) Description 03/27/2024 14:25 EST Hospital Encounter [facility] OR [address] [place] [address] [phone] Vishal Castillo MD [address] [place] [phone] 03/27/2024 14:25 EST - 03/27/2024 17:55 EST Surgery [facility] OR [address] [place] [address] [phone] Vishal Castillo MD [address] [place] [phone] Left Reverse Total Shoulder Arthroplasty [66844 (CPT??)] 04/08/2024 15:30 EST Post-op Visit [facility] Hand & Upper Extremity Program - [address] [place], [place] [phone] Vishal Castillo MD [address] [place] [phone] Scheduled Procedures Name Priority Associated Diagnoses Date/Ti me ARTHROPLASTY, SHOULDER, TOTAL Left rotator cuff tear arthropathy 03/27/2024 14:25 EST documented as of this encounter Visit Diagnoses Not on filedocumented in this encounter Care Teams Wood Cut Engraver Relationship Specialty Start Date End Date Barbara Conway, [address] [address] [place] [address] PCP - General 08/19/13 documented as of this encounter
--- OUTSIDE RECORDS SUMMARY | 2024-03-18 22:09 | XMS_ITS | Encounter Summary ---
Author Organization [facility] Address [address] [place] [address] Care Team Providers Care Increment Manager Name Role Phone ZoraidaBarbara Myla PLASTIC EYE TECHNICIAN Primary Care Provider [phone] Encounter Details Date Type Department Care Team (Latest Contact Info) Description 03/10/2023 8:06 EST - 03/10/2023 23:59 EST Hospital Encounter [facility] Pain [facility] Xray [address] [place], [place] [phone] Discharge Disposition: Home or Self Care Social [...] 14:25 EST Hospital Encounter [facility] [place] [address] [place] [address] [phone] Vishal Castillo MD [address] [place] [phone] 03/27/2024 14:25 EST - 03/27/2024 17:55 EST Surgery [facility] [place] [address] [place] [address] [phone] Vishal Castillo MD [address] [place] [phone] Left Reverse Total Shoulder Arthroplasty [32116 (CPT??)] 04/08/2024 15:30 EST Post-op Visit [facility] Hand & Upper Extremity Program - [address] [address] Vishal Castillo MD [address] [place] [phone] Scheduled Procedures Name Priority Associated Diagnoses Date/Ti me ARTHROPLASTY, SHOULDER, TOTAL Left rotator cuff tear arthropathy 03/27/2024 14:25 EST documented as of this encounter Procedures Procedure Name Priority Date/Time Associated Diagnosis Comments PAIN CLINIC [place] LUMBAR INJECTION Routine 03/10/2023 13:45 EST documented in this encounter Results * PAIN CLINIC FL LUMBAR INJECTION (03/10/2023 13:45 EST) Narrative 03/10/2023 13:45 EST This is a non-reportable exam. us Dickson PATEL IMG OTHER IMAGING ORDERABLES Final Result documented in this encounter Visit Diagnoses Not on filedocumented in this encounter Care Teams Increment Manager Relationship Specialty Start Date End Date Barbara Conway, PLASTIC EYE TECHNICIAN [address] [place] [address] PCP - General 08/19/13 documented as of this encounter
--- OUTSIDE RECORDS SUMMARY | 2024-03-18 22:09 | XMS_ITS | Encounter Summary ---
Author Organization [facility] Address [address] [place] [address] Care Team Providers Care Accounting System Expert Name Role Phone ZoraidaBarbara Myla PACK MASTER Primary Care Provider [phone] Reason for Visit * Reason Comments Follow-up 6 months RFA follow up Encounter Details Date Type Department Care Team (Latest Contact Info) Description 11/24/2023 16:00 EDT Office Visit [facility] Interventional Pain [address] [place] [address] Dickson Durham MBBS [address] [facility] [address] [place] [address] Spondylosis of lumbar region without [...] Sign Reading Time Taken Comments Blood Pressure 115/61 11/24/2023 1516 EDT Pulse 68 11/24/2023 1516 EDT Temperature - - Respiratory Rate 17 11/24/2023 1516 EDT Oxygen Saturation 99% 11/24/2023 1516 EDT Inhaled Oxygen Concentration - - Weight [...] documented in this encounter Progress Notes * Dickson Durham MBBS - 11/24/2023 1600 EDT [facility] OP PAIN follow-up Patient Name: Aretha Garcia Date of Service: 11/24/2023 Requesting Physician: no referring provider Chief Complaint: Chief Complaint Patient presents with Follow-up 6 months RFA follow up Physician Requesting Consultation: no referring provider History of Present Illness: Patient presents at the request of no referring provider for initial evaluation and treatment recommendations of the patient's pain. Ms. Aretha Garcia is a 78 y.o. femalewho has a past medical history of Anesthesia complication (severe N/V. Had local for other knee andit worked great), Anserine bursitis (Right anserine tendinitis/bursitis), Arrhythmia (10/24/19 EKG NSR with 1st degree AV block), Back pain, Bilateral bunions, Colon cancer ([facility]) (cancerous polyp removed Apr 2005), Colon polyp, Complication of anesthesia (nausea ), Diabetes mellitus (HCC-CMS) (10/18/19 A1C 6.5 . Fs daily 120 in the am), Exercise involving housework, Exercise involving walking, GERD (gastroesophageal reflux disease) (10/24/19 med controlled. able to lay flat), Heart murmur, High cholesterol (10/24/19 med controlled), History of epidural anesthesia, History of general anesthesia, Hypertension (10/24/19 med controlled), Joint replaced, Knee joint replacement status (left), Mitral valve disease (prolapsed mitral valve), Nausea & vomiting, Obesity, and Rectal cancer ([facility]) (stage 1 colo rectal cancer). The patient [...] unexplained fever, trauma or unexplained weight loss. 11/24/2023 15:16 Pain Score (from Vitals) Initial score 3 Final score 3 Location 4 Interval history 11/24/2023 Patient presents to the clinic status post L3, L4, L5 radiofrequency ablation done on 05/17/2023. Patient reports 80 to 85% pain relief at 6 months leah from the procedure. Her current pain intensity is 2-3 out of 10 and is currently not affecting her activities of daily living. Patient is able to perform her activities of daily living a lot better. Denies any complications from the procedure. Thepatient denies bowel/bladder dysfunction, saddle anesthesia or new weakness. Past Medical History: Diagnosis Date Anesthesia complication severe N/V. Had local for other knee and it worked great Anserine bursitis Right anserine tendinitis/bursitis Arrhythmia 10/24/19 EKG NSR with 1st degree AV block Back pain Bilateral bunions Colon cancer ([facility]) cancerous polyp removed Apr 2005 Colon polyp Complication of anesthesia nausea Diabetes mellitus ([facility]) 10/18/19 A1C 6.5 . Fs daily 120 in the am Exercise involving housework Exercise involving walking GERD (gastroesophageal reflux disease) 10/24/19 med controlled. able to lay flat Heart murmur High cholesterol 10/24/19 med controlled History of epidural anesthesia History of general anesthesia Hypertension 10/24/19 med controlled Joint replaced Knee joint replacement status left Mitral valve disease prolapsed mitral valve Nausea & vomiting Obesity Rectal cancer ([facility]) stage 1 colo rectal cancer Allergies: Allergies Allergen Reactions Scopolamine halluciation Robaxin [Methocarbamol] halluciation Sulfa (Sulfonamide Antibiotics) Rash Tramadol halluciation Zocor [Simvastatin] Other (See Comments) severe leg cramps Physical Exam: Vitals: BP 115/61 (BP Cuff Location: Right arm, BP Patient Position: Sitting, BP Cuff Sizes: Adult,long) Pulse 68 Resp 17 SpO2 99% General: Patient is alert and [...] REGARDING THIS REPORT PLEASE CALL [facility] AT [phone] Lumbar MRI 10/20/22 IMPRESSION 1. Severe central [...] be associated with Baastrup's disease. Assessment: 1. Spondylosis of lumbar region without myelopathy or radiculopathy Plan: Ms. Aretha Garcia is a 78 y.o. female who has a past medical history of Anesthesia complication (severe N/V. Had local for other knee and it worked great), Anserine bursitis (Right anserine tendinitis/bursitis), Arrhythmia (10/24/19 EKG NSR with 1st degree AV block), Back pain, Bilateral bunions, Colon cancer ([facility]) (cancerous polyp removed Apr 2005), Colon polyp, Complication of anesthesia (nausea ), Diabetes mellitus ([facility]) (10/18/19 A1C 6.5 . Fs daily 120 [...] valve), Nausea & vomiting,Obesity, and Rectal cancer ([facility]) (stage 1 colo rectal cancer). The patient presents to the painclinic for initial consultation and treatment recommendations concerning her chronic low back and lower extremity pain. Lumbar imaging shows severe multilevel stenosis worst at L4-5 with accompanying facet arthropathy at multiple levels present. Patient reported 80 to 85% of pain relief with prior radiofrequency ablation which is still ongoingat 6 months leah. We discussed repeating RFA vs ILESI given that her pain is caused by most likely a combination of lumbar stenosis and intermittent claudication as well as facet arthropathy. 1. Interventional: Can repeat radiofrequency ablation in future once the pain becomes severe and affects her activities of daily living. Patient will call the clinic to schedule the appointment. 2. Medication Recommendations: CPM 3. Alternative Recommendations: continue HEP 4. Follow-up as needed. This document was created using speech voice recognition software. Grammatical errors, random word insertions, pronoun errors, and incomplete sentences are an occasional consequence of this system due to software limitations, ambient noise, and hardware issues. Any formal questions or concerns about content, text, or information contained within the body of this dictation should be directly addressed to the provider for clarification. AMANDA Lunsford documented in this encounter Plan of Treatment Upcoming Encounters Date Type Department Care Team (Latest Contact Info) Description 03/27/2024 14:25 EST Hospital Encounter [facility] OR [address] [place] [address] [phone] Vishal Castillo MD [address] [place] [phone] 03/27/2024 14:25 EST - 03/27/2024 17:55 EST Surgery [facility] OR [address] [place] [address] [phone] Vishal Castillo MD [address] [place] [phone] Left Reverse Total Shoulder Arthroplasty [29731 (CPT??)] 04/08/2024 15:30 EST [facility]-op Visit [facility] - [address] [place] [address] Vishal Castillo MD [address] [place] [phone] Scheduled Procedures Name Priority Associated Diagnoses Date/Ti me ARTHROPLASTY, SHOULDER, TOTAL Left rotator cuff tear arthropathy 03/27/2024 14:25 EST documented as of this encounter Visit Diagnoses Diagnosis Spondylosis of lumbar region without myelopathy or radiculopathy- Primary Lumbosacral spondylosis without myelopathy Left rotator cuff tear arthropathy documented in this encounter Care Teams Accounting System Expert Relationship Specialty Start Date End Date Barbara Conway, PACK MASTER [address] [place] [address] PCP - General 08/19/13 documented as of this encounter
--- OUTSIDE RECORDS SUMMARY | 2024-03-18 22:09 | XMS_ITS | Encounter Summary ---
Author Organization [facility] Address [address] [place] [address] Care Team Providers Care Trench Trimmer Fine Name Role Phone Barbara Conway SUPERVISOR AIR CONDITIONING INSTALLER Primary Care Provider [phone] Reason for Referral * Consult (Routine/Next Available) - New Request Specialty Diagnoses / Procedures Referred By Maryuri sarmiento Referred To Contact Pain Medicine Diagnoses Spinal stenosis of lumbar 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 Duglas Mccullough PA-C Phone: tel: fax: [facility] Interventional Pain [address] [place] [address] Phone: tel: fax: Referral ID Status Reason Start Date Expiration Date Visits Requested Visits Authorized [id number] New Request Specialty Services Required 01/16/2023 1 1 Question Answer Reason for Request: Back and bilateral lower extremity symptoms Has the patient undergone any diagnostic testing or imaging (x-ray, MRI, EMG, etc)? Yes What kind: MRI x-ray Has the patient had any interventional procedures in the past (epidural steroid injections, trigger point injections, etc.)? No Is this pain complaint part of a work related injury/workers comp? No Reason for Visit * Reason Comments Pain Follow-up * Referral (Routine) - New Request Specialty Diagnoses / Procedures Referred By Maryuri sarmiento Referred To Contact Orthopedic Surgery Diagnoses Low back pain, unspecified Spinal stenosis, site unspecified Sciatica, right side Barbara Conway, SUPERVISOR AIR CONDITIONING INSTALLER [address] [place] [address] Phone: tel: fax: [facility] Sp[facility] [address] [place] [address] Phone: tel: fax: Referral ID Status Reason Start Date Expiration Date V isits Requested Visits Authorized [id number] New Request 1 1 Encounter Details Date Type Department Care Team (Late st Contact Info) Description 01/16/2023 13:00 EDT Office Visit [facility] Spine Program [place] [address] Duglas Mccullough PA-C [address] [place] [place] [phone] Spinal stenosis of lumbar region without neurogenic [...] in this encounter Progress Notes * Duglas Mccullough PA-C - 01/16/2023 1300 EDT Follow-up visit 01/16/2023 patient was referred back to us for an interval increase in her back pain. Apparently mid November she was away in [place] when she developed acute increase in her low back painassociated right lower extremity symptoms in an L5 distribution similar symptoms on the left to a lesser degree. She denies tripping or stumbling. She has been exercising on her own as her friend antonio physical therapist. Prior to this episode she had some back discomfort was much more comfortablereally very little if any leg pain. She is bit frustrated about this flare in her symptoms had followed up with her primary doctor and was referred back to us Signed ??? Encounter Date: 11/16/2021 ?? Expand All Collapse All Aretha Garcia is being seen as a consultation from Dr. Conway. ?? Chief Complaint Patient presents with ??? Lower Back - Pain ?? The primary encounter diagnosis was Chronic bilateral low back pain, unspecified whether sciatica present. 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 ?? HPI history obtained from the patient and her chart she has a long history of low back pain worse over the past several months gradually increasing. She has some radiation into her buttock bilaterally. She denies lower extremity dysesthesias with the exception of occasional leg tingling with sitting. She does have occasional leg cramps that she feels has been present for 20 years. Typically her back discomfort increases after exercise with walking long distances bending and lifting she finds good relief with sitting and walking with a cane she been walking with a cane for over a year this gives her confidence. Currently patient had symptoms of urinary urgency which have been confused with incontinence. She notes she has an urge to go to the restroom but cannot make it. Apparently also when she coughs or sneezes according to the notes, she can lose urine. Currently she has not been evaluated for urinary incontinence and question was raised as to whether this would be related to her well-known lumbar stenosis. She is not seen a physical therapist received health care / medical job titles or injections she is not followed up with gynecology. She leads a relatively sedentary life. She is a bit frustrated today as she has been led to believe that she has cauda equina syndrome and may need surgery. Notes indicate that she had undergone a lumbar MRI which revealed spinal stenosis. Neurosurgery was called and they suggested she go to the emergency room. They noted that loss of urinary control was a red flag and should be seen in the ER. Patient was seen and evaluated in ER was discharged at the time was told that she did not have cauda equina syndrome. HPI ?? Patient Active Problem List Diagnosis ??? History of colonic polyps ??? Traumatic arthropathy, lower leg ??? Status post total knee replacement ??? Osteoarthritis of knee ??? Anserine bursitis ??? Obesity ??? Bilateral bunions ??? Chronic pain of right knee ??? Obesity due to excess calories ??? Primary osteoarthritis of right knee ??? Status post total left knee replacement ??? PONV (postoperative nausea and vomiting) ?? Past Medical History: Diagnosis Date ??? Anesthesia complication ? severe N/V. Had local for other knee and it worked great ??? Anserine bursitis ? Right anserine tendinitis/bursitis ??? Arrhythmia ? 10/24/19 EKG NSR with 1st degree AV block ??? Back pain ? Bilateral bunions ? Colon cancer (HCC-CMS) (HCC) ? cancerous polyp removed Apr 2005 ??? Colon polyp ? Complication of anesthesia ? nausea ??? Diabetes mellitus (HCC) ? 10/18/19 A1C 6.5 . Fs daily 120 in the am ??? Exercise involving housework ? Exercise involving walking ? GERD (gastroesophageal reflux disease) ? 10/24/19 med controlled. able to lay flat ??? Heart murmur ? High cholesterol ? 10/24/19 med controlled ??? History of epidural anesthesia ? History of general anesthesia ? Hypertension ? 10/24/19 med controlled ??? Joint replaced ? Knee joint replacement status ? left ??? Mitral valve disease ? prolapsed mitral valve ? ? Nausea & vomiting ? Obesity ? Rectal cancer (HCC-CMS) (HCC) ? stage 1 colo rectal cancer Past Surgical History: Procedure Laterality Date ??? COLON SURGERY ? colon polyp removed ??? COLONOSCOPY ? JOINT REPLACEMENT ?? left knee ??? TONSILLECTOMY ? TUBAL LIGATION ? Social History ?? Tobacco Use ??? Smoking status: Never Smoker ??? Smokeless tobacco: Never Used Substance Use Topics ??? Alcohol use: Not Currently Family History Problem Relation Age of Onset ??? Diabetes Mother ? Cancer Father ? lung cancer ??? Breast Cancer Neg Hx ? Colon Cancer Neg Hx ? Colon Polyps Neg Hx ? Endometrial Cancer Neg Hx ? Ovarian Cancer Neg Hx ? Esophageal Cancer Neg Hx ? Pancreatic Cancer Neg Hx ? Rectal Cancer Neg Hx ? Stomach Cancer Neg Hx ? Current Medications Current Outpatient Medications Medication Sig Dispense Refill ??? acetaminophen (TYLENOL) 500 mg tablet Take 2 Tabs by mouth every 6 hours. ? ascorbic acid (VITAMIN C) 500 mg tablet Take 1 Tab by mouth at bedtime. ? atenolol (TENORMIN) 50 mg tablet Take 50 mg by mouth daily. ? atorvastatin (LIPITOR) 40 mg tablet Take 40 mg by mouth at bedtime. Take 1/2 tab ? cephALEXin (KEFLEX) 500 mg capsule Take 500 mg by mouth as needed. 1 tab BID for 3 days at first sign of UTI (Patient not taking: Reported on 09/08/2021) ? cholecalciferol, Vitamin D3, 1,000 unit tablet Take 1,000 Units by mouth daily. ? gabapentin (NEURONTIN) 100 mg capsule Take 200 mg by mouth as needed for Pain. Once daily in afternoon PRN ? gabapentin (NEURONTIN) 100 mg capsule Take 100 mg by mouth 2 times daily. 3 caps in morning andevening. ? lisinopril (PRINIVIL, ZESTRIL) 40 mg tablet Take 40 mg by mouth daily. ? metformin (GLUCOPHAGE) 1,000 mg tablet Take 1,000 mg by mouth 2 times daily with meals. ? metoprolol (LOPRESSOR) 50 mg tablet Take 50 mg by mouth 2 times daily. ? omeprazole (PRILOSEC) 40 mg capsule Take 40 mg by mouth daily. ? No current facility-administered medications for this visit. ?? Allergies Allergen Reactions ??? Scopolamine ? halluciation ??? Robaxin [Methocarbamol] ? halluciation ??? Sulfa (Sulfonamide Antibiotics) Rash ??? Tramadol ? halluciation ??? Zocor [Simvastatin] Other (See Comments) ? severe leg cramps ?? Review of Systems Constitutional: Negative for activity change. Musculoskeletal: Positive for back pain and gait problem. Neurological: Negative for weakness and numbness. ? Physical Exam Constitutional: General: She is not in acute distress. Appearance: She is well-developed and well-nourished. Eyes: Extraocular Movements: EOM normal. Cardiovascular: Rate and Rhythm: Normal rate. Pulmonary: Effort: Pulmonary effort is normal. Skin: General: Skin is warm and dry. Neurological: Mental Status: She is alert and oriented to person, place, and time. Psychiatric: Mood and Affect: Mood and affect normal. ? Back Exam ? Neurologic Exam ?? Mental Status Oriented to person, place, and time. ?? Cranial Nerves ?? CN III, IV, Extraocular motions are normal. ? The prior workup of the patient includes: Lumbar MRI dated October 20, 2021 reveals severe central canal stenosis at L4-5 with no cerebrospinal fluid present in the canal. Very similar findings to MRI dated [address] abdomen and pelvis dated 2010 Radiographs obtained today reveal no fractures grade 1 spondylolisthesis of L4 and L5 Assessment Back pain musculoskeletal lower extremity symptoms result of spinal stenosis at this point patient would like to meet with the pain service to discuss options including injections Plan Anesthesia pain service consult No scheduled follow-up Activity as tolerated Strongly suggest starting physical therapy Dr. Skelton was available for consultation was not consulted documented in this encounter Plan of Treatment Upcoming Encounters Date Type Department Care Team (Latest Contact Info) Description 03/27/2024 14:25 EST Hospital Encounter [facility] OR [address] [place] [address] [phone] Vishal Castillo MD [address] [place] [phone] 03/27/2024 14:25 EST - 03/27/2024 17:55 EST Surgery [facility] OR [address] [place] [address] [phone] Vishal Castillo MD [address] [place] [phone] Left Reverse Total Shoulder Arthroplasty [25991 (CPT??)] 04/08/2024 15:30 EST Post-op Visit [facility] & Upper Extremity Program - [address] [place] [address] Vishal Castillo MD [address] [place] [phone] Scheduled Procedures Name Priority Associated Diagnoses Date/Ti me ARTHROPLASTY, SHOULDER, TOTAL Left rotator cuff tear arthropathy 03/27/2024 14:25 EST Scheduled Referrals Name Type Priority Associated Diagnoses Order Schedule AMB CONS/FOLLOW UP PAIN INTERVENTIONAL Outpatient Referral Routine/Next Available Spinal stenosis of lumbar 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 Expected: 01/23/2023 (Approximate), Expires: 01/17/2024 documented as of this encounter Visit Diagnoses Diagnosis Spinal stenosis of lumbar 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- Primary Spinal stenosis, lumbar region, without neurogenic claudication Left rotator cuff tear arthropathy documented in this encounter Care Teams Trench Trimmer Fine Relationship Specialty Start Date End Date Barbara Conway, SUPERVISOR AIR CONDITIONING INSTALLER [address] [place] [address] PCP - General 08/19/13 documented as of this encounter
--- OUTSIDE RECORDS SUMMARY | 2024-03-18 22:09 | XMS_ITS | Encounter Summary ---
Author Organization [facility] Address [address] [place] [address] Care Team Providers Care Inventory Control/Shipping Receiving Name Role Phone Barbara Conway BUSINESS LAW PROFESSOR Primary Care Provider [phone] Reason for Referral * Radiology Services (Routine/Next Available) - Authorization Not Required Specialty Diagnoses / Procedures Referred By Maryuri t Referred To Contact Diagnoses Left rotator cuff tear arthropathy Procedures CT SHOULDER LEFT WO CONTRAST Vishal Castillo MD [address] [place] [phone] Phone: tel: fax: [facility] Referral ID Status Reason Start Date Expiration Date Visits Requested Visits Authorized [id number] Authorization Not Required 01/12/2024 1 1 * Radiology Services (Routine/Next Available) - Authorization Not Required Specialty Diagnoses / Procedures Referred By Maryuri sarmiento Referred To Contact Diagnoses Chronic left shoulder pain Procedures XR SHOULDER LEFT 2 OR MORE VIEWS Vishal Castillo MD [address] [place] [address] Phone: tel: fax: [facility] Referral ID Status Reason Start Date Expiration Date Visits Requested Visits Authorized [id number] Authorization Not Required 01/11/2024 1 1 Reason for Visit * Reason Comments Pain * Consult (Routine/Next Available) - Specialty Report Received Specialty Diagnoses / Procedures Referred By Maryuri sarmiento Referred To Contact Orthopedic Surgery Diagnoses Chronic left shoulder pain Biceps tendonitis on left Shoulder arthritis Status post total right knee replacement Ashish Dejesus MD [address] [place] [address] Phone: tel: fax: [facility] - [address] [place] [address] Phone: tel: fax: Referral ID Status Reason Start Date Expiration Date Visits Requested Visits Authorized [id number] Specialty Report Received Specialty Services Required 11/20/2023 1 1 Encounter Details Date Type Department Care Team (Late st Contact Info) Description 01/12/2024 11:00 EDT Office Visit [facility] - [address] [place] [address] Vishal Castillo MD [address] [place] [phone] Chronic left shoulder pain (Primary Dx); Left rotator cuff tear arthropathy Social History Tobacco Use Types Packs/Day Years [...] documented in this encounter Progress Notes * Vishal Casitllo MD - 01/12/2024 1100 EDT [facility] Department of Orthopaedics and Rehabilitation Patient Name: Aretha Garcia Date of : 1945 PCP: Barbara Cnoway Referring provider: Ashish Dejesus* Chief Complaint Patient presents with Left Shoulder - Pain SUBJECTIVE HISTORY Aretha Garcia is a [id number] 78 y.o. female presenting here for evaluation of LEFT shoulder pain. The patient reports the following: Around 3 years ago patient had a fall where she experienced a nondisplaced fracture of her left shoulder somewhere. Since this time she has had notable issues with her left shoulder gradually progressing to increasing pain and worsening function including loss of range of motion. Around 6 months ago it came to the point where becomes unbearable limiting her activities of daily living particular with overhead activities and using her left hand and shoulder. She endorses pain diffusely within hershoulder joint and sometimes radiates into her anterior left arm. She endorses popping clicking andgrinding. Aggravating factors include using her arm. Relieving factors include nothing. For treatment she has tried physical therapy activities of pendulum exercises, topical agents, activity modifications, Tylenol, (does not use NSAIDs as she had kidneys issues from this), left shoulder injection (provided no relief at all). For this she had no issues with her shoulder no surgeries on her shoulder. Does not know of ever being diagnosed with a rotator cuff tear but in November of this year she received an MRI which showed afull-thickness tear of the left supra and infraspinatus with partial-thickness tear of the subscapularis with intact biceps and teres minor. No neck pain and no upper extremity radicular pain. No history of blood clots and not any blood thinners No history of recurrent falls Denies tobacco, alcohol, recreational drug use. NSAIDs: Cannot take them due to kidney issues PT: Not formally SST 06/05 SANE 50% VAS Pain 6, dissatisfied Tobacco? no EtOH? no Other Related Information: Current occupation: Retired Is this a work-related problem?: no PHYSICAL EXAMINATION NECK EXAM: Full painless range of motion No Limited motion SHOULDER SPECIFIC EXAM Inspection/Palpation Right Left AC joint tenderness No No Proximal biceps tenderness no No Greater tuberosity tenderness No No Crepitus No No Range of Motion of Shoulder: Right Left Forward elevation (active) 120 70 (passive 70) External rotation - side 30 10 External rotation - abduction 30 10 Internal rotation - abduction 20 0 Internal rotation side T12 L3 Strength of Shoulder: Right Left Forward elevation in scapular plane (modified Kia's test) 5/5 3/5 External rotation at side 4/5 3/5 Belly press / Bear hug 4/5 4/5 Significant amount of crepitus in the left shoulder and pain with passive shoulder range of motion.Positive lag test. Neurovascular exam for left shoulder: Motor: 5/5 axillary, musculocutaneous, posterior interosseous, anterior interosseous, and ulnar Sensory: sensation intact to light touch in the axillary, lateral antebrachial cutaneous, median, ulnar, and radial distributions Vascular: hand is warm and well-perfused with a 2+ radial pulse. IMAGING STUDIES X-rays: Plain films of the LEFT shoulder from 01/12/2024 were reviewed and demonstrate severe rotator cuff arthropathy complete loss of the joint space and superior glenoid wear. There is superior migration of the humeral head. Osteophyte formation extensively. MRI: MRI of the LEFT shoulder dated 12/18/2023 was personally viewed and has the following findings: Full-thickness supraspinatus infraspinatus and upper border subscapularis tearing with at severe atrophy of the infraspinatus and moderate atrophy of the supraspinatus. There is severe glenohumeral arthritis with superior wear of the glenoid and areas of flattening of the humeral head Assessment and Plan Aretha Garcia is a 78 y.o. female with LEFT shoulder pain, likely from rotator cuff arthropathy resulting glenohumeral arthritis. Discussed the diagnosis with the patient. She has had extensive conservative treatment options including injection, iyzp-jpj-agobdis medications, physical therapy. At this time patient is having notable pain and functional limitations in daily activities that she is open to considering surgery for this. Discussed reverse total shoulder arthroplasty with the patient,the risk, benefits, alternatives to this. The risks, benefits and alternatives to surgery were discussed. Risks to surgery include infection,neurovascular injury, blood clots, persistent pain, stiffness, prosthetic loosening, periprostheticfracture, stress fracture and possible need for revision surgery, as well as anesthetic and medicalcomplications. Specific risk to this procedure is stress fracture, instability, infection. They unde rstood the risks and wished to proceed with surgery. - Plan for left reverse total shoulder arthroplasty - CT left shoulder for preop planning - Need PCP preoperative clearance for this procedure - Need repeat A1c (last 6.5, 4 years ago), labs ordered today Follow-up: I will plan to see Ms. Garcia back postoperatively Imaging at next appointment: none Vishal Castillo MD Department of Orthopedics and Rehabilitation Shoulder and Elbow Surgery [facility] No questionnaires on file. * Arianne Dyson RN - 01/12/2024 1100 EDT Patient Education Topic: left reverse total shoulder arthroplasty scheduled on TBD [place] [facility]: Handout and Verbal Taught to: Family and Patient Barriers: None Outcomes: verbalized understanding Topics dicussed: Will need auto transport driver to and from surgery Fasting Guidelines Pre-op H&P needed within 30 days of scheduled procedure Post- operative instructions and splint/dressing care Meds to hold - lisinopril starting the day before, metformin hold morning of A1c, CBC, CMP ordered today per Dr Castillo. Pt aware A1C needs to be <7 to proceed. Pt sent home with pre-operative information packet including written instructions on all of the above. No h/o bleeding or blood clotting disorders. No prior issues with anesthesia. All meds, allergies and medical history updated. documented in this encounter Plan of Treatment Upcoming Encounters Date Type Department Care Team (Latest Contact Info) Description 03/27/2024 14:25 EST Hospital Encounter [facility] OR [address] [place] [id number] Vishal Castillo MD [address] [place] [phone] 03/27/2024 14:25 EST - 03/27/2024 17:55 EST Surgery [facility] OR [address] [place] [address] [id number] Vishal Castillo MD [address] [place] [phone] Left Reverse Total Shoulder Arthroplasty [09741 (CPT??)] 04/08/2024 15:30 EST Post-op Visit [facility] - [address] [place] [address] Vishal Castillo MD [address] [place] [phone] Scheduled Procedures Name Priority Associated Diagnoses Date/Ti me ARTHROPLASTY, SHOULDER, TOTAL Left rotator cuff tear arthropathy 03/27/2024 14:25 EST documented as of this encounter Results * CT SHOULDER LEFT [...] 3D reconstructions confirm the above-described osseous findings. [id number] Narrative 03/14/2024 12:50 EST EXAM/TECHNIQUE: 03/14/2024 11:46 [...] the time of interpretation. Resulting Agency Comment [id number] Procedure Note Kevin Rapp MD - 03/14/2024 [...] obtained 3D reconstructions confirm the above-described osseousfindings. [id number] us Vishal Castillo MD IMG CT ORDERABLES Final R esult * XR SHOULDER LEFT 2 OR MORE [...] diffuse osteopenia. Soft tissues are grossly unremarkable. 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 Resulting Agency Comment [id number] Procedure Note Roque Kay MD - 01/18/2024 [...] isdiffuse osteopenia. Soft tissues are grossly unremarkable. [id number] Vishal Castillo MD IMG DIAGNOSTIC IMAGING OR DERABLES Final Result documented in this encounter Visit Diagnoses Diagnosis Chronic left shoulder pain- Primary Pain in joint, shoulder region Left rotator cuff tear arthropathy Chronic left shoulder pain Pain in joint, shoulder region Left rotator cuff tear arthropathy- Primary Left rotator cuff tear arthropathy Left rotator cuff tear arthropathy documented in this encounter Discontinued Medications Medication Sig Discontinue Reason Start Date End Da te cephALEXin (KEFLEX) 500 mg capsule Take 1 Capsule by mouth as needed. 1 tab BID for 3 days at first sign of UTI Therapy completed 01/12/2024 documented as of this encounter Orders Case Request Count Last Ordered Date First Orde red Date CASE REQUEST OPERATING ROOM 1 01/12/2024 documented in this encounter Care Teams Inventory Control/Shipping Receiving Relationship Specialty Start Date End Date Barbara Conway NP [address] [place] [address] PCP - General 08/19/13 documented as of this encounter
--- OUTSIDE RECORDS SUMMARY | 2024-03-18 22:09 | XMS_ITS | Encounter Summary ---
Author Organization [facility] Address [address] [place] [address] Care Team Providers Care Tax Manager Public Name Role Phone JuanBarbara whitney Myla FRONT OFFICE DEVELOPER Primary Care Provider [phone] Reason for Visit * Reason Onset Date Comments Follow-up 07/03/2023 injection Encounter Details Date Type Department Care Team (Late st Contact Info) Description 07/03/2023 Telephone [facility] Orthopedic Surgery - [facility] [address] [place] [address] Ashish Dejesus MD [address] [place] [phone] Follow-up (injection) Social History Tobacco Use Types Packs/Day Years [...] Date of Assessment Author No 10/22/2021 11:35 Mariela Olivo RN * Are you blind or do [...] encounter Miscellaneous Notes * Telephone Encounter - Ida Medeiros MA - 07/04/2023 0734 EDT spoke with Aretha and he felt the rash came from bandaid or betadine. Aretha was fine with explanation. * Telephone Encounter - Frida Gomez - 07/03/2023 1532 EDT Reason for Call: Follow-up (injection) Summary: Patient had injection on 06/23/23 and now has a rash in the area. Side of injection has healed very well but rash is all around it. Next appt 07/10/23. Rash started last Monday and it's itchy. Please advise. Appointment Offered? Stella Gomez 07/03/2023 15:32 documented in this encounter Plan of Treatment Upcoming Encounters Date Type Department Care Team (Latest Contact Info) Description 03/27/2024 14:25 EST Hospital Encounter [facility] OR [address] [place], [place] [phone] Vishal Castillo MD [address] [place] [phone] 03/27/2024 14:25 EST - 03/27/2024 17:55 EST Surgery [facility] OR [address] [place] [id number] Vishal Castillo MD [address] [place] [phone] Left Reverse Total Shoulder Arthroplasty [75881 (CPT??)] 04/08/2024 15:30 EST Post-op Visit [facility] Upper Extremity Program - [address] [address] Vishal Castillo MD [address] [place] [phone] Scheduled Procedures Name Priority Associated Diagnoses Date/Ti me ARTHROPLASTY, SHOULDER, TOTAL Left rotator cuff tear arthropathy 03/27/2024 14:25 EST documented as of this encounter Visit Diagnoses Not on filedocumented in this encounter Care Teams Tax Manager Public Relationship Specialty Start Date End Date Barbara Conway NP [address] [place] [id number] PCP - General 08/19/13 documented as of this encounter
--- OUTSIDE RECORDS SUMMARY | 2024-03-18 22:09 | XMS_ITS | Encounter Summary ---
Author Organization [facility] Address [address] [place] [address] Care Team Providers Care Tour Manager Name Role Phone ZoraidaBarbara Myla DIRECTOR ADVANCED Primary Care Provider [phone] Reason for Visit * Reason Comments Follow-up Encounter Details Date Type Department Care Team (Late st Contact Info) Description 08/09/2022 10:40 EDT Office Visit [facility] Orthopedic Surgery - [facility] [address] [place] [address] Ashish Dejesus MD [address] [place] [phone] Chronic left shoulder pain (Primary Dx); Biceps tendonitis on left; Shoulder arthritis; Status post total right knee replacement; Chronic bilateral low back pain, unspecified whether sciatica present; Spinal stenosis of lumbar region without neurogenic [...] Answer Entry Date Author No 10/28/2019 17:00 KIMT Mackenzie Pappas RN documented in this encounter Progress Notes * Ashish Dejesus MD - 08/09/2022 1040 EDT Chief complaint: Left shoulder follow-up Subjective: This is a right-handed 77-year-old female who had seen for the first time in May 23, 2019 through for left shoulder pain which occurred after she had fallen several years earlier. Shewas noted to have some glenohumeral osteoarthritis with severe nature and rotator cuff arthropathy but having less pain. The patient states she has been able to cope quite well with this and she is not at all interested in having any injections in the shoulder we have suggested in the past. She feels that she is able to use the shoulder quite well and she is sleeping on this well at night and is not noticing any radiculopathy or significant weakness. She can reach and comb her hair and lift certain things and only bothers her from time to time. She otherwise feels her knee replacements are doing very well. Objective: General shows a friendly female no acute distress and she is oriented x3 and vital signsare stable with a BMI of 30.9. Neck exam grossly normal Spine exam grossly normal-appearing with a negative straight leg raising bilaterally. Shoulder examination: The left shoulder shows the patient to have abduction 95 degrees flexion to 90 degrees internal rotation beyond about 65 degrees creates pain in the anterior aspect the shoulder. External Tatian is quite normal. Mildly positive belly press sign was applied mildly positive Walden sign and there is impingement sign with this. Contralateral right shoulder shows adequate range of motion without provocative pain. Knee examination both knees show well-healed surgical scars from knee replacements with good range of motion of the knees from 0 to 115 degrees with normal tracking. Negative Homans' sign noted. Neurovascular examination: Grossly normal upper and lower extremity dermatome sensation with adequate strength of flexion-extension the muscle groups. Pulses were not tested. X-rays: No new x-rays were obtained today. We did review the x-rays from 05/23/2022 of the shoulder. Impression: #1 stable persistently painful left shoulder pain consistent with glenohumeral arthritis and rotator cuff arthropathy and patient is not interested in doing any injections but states she is doing quite well with this #2 status post right TKA Dr. Otto 10/28/2019 doing well #3 status post left TKA Dr. Otto doing well 2016 #4 chronic low back pain secondary to probable stenosis #5 diabetes mellitus type 2/hypertension/GERD stable Plan: I spent a total of 25 minutes this day of the encounter with the patient reviewing documenting coronary care. We again discussed the fact that she could have injection if she wants to have thisin the future but she is wants to watch this and see how does not hurt her to try some topical salve and exercise to continue and return here in 5 or 6 months or sooner problems should arise. documented in this encounter Plan of Treatment Upcoming Encounters Date Type Department Care Team (Latest Contact Info) Description 03/27/2024 14:25 EST Hospital Encounter [facility] OR [address] [place] [id number] Vishal Castillo MD [address] [place] [phone] 03/27/2024 14:25 EST - 03/27/2024 17:55 EST Surgery [facility] OR [address] [place], [place] [phone] Vishal Castillo MD [address] [place] [phone] Left Reverse Total Shoulder Arthroplasty [13329 (CPT??)] 04/08/2024 15:30 EST Post-op Visit [facility] Hand & Upper Extremity Program - [address] [place] [address] Vishal Castillo MD [address] [place] [address] Scheduled Procedures Name Priority Associated [...] low back pain, unspecified whether sciatica present Spinal stenosis of lumbar 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 Spinal stenosis, lumbar region, without neurogenic claudication Left rotator cuff tear arthropathy documented in this encounter Care Teams Tour Manager Relationship Specialty Start Date End Date Barbara Conway NP [address] [place] [address] PCP - General 08/19/13 documented as of this encounter
--- OUTSIDE RECORDS SUMMARY | 2024-03-18 22:09 | XMS_ITS | Encounter Summary ---
Author Organization [facility] Address [address] [place] [address] Care Team Providers Care Instructor Physical Name Role Phone Barbara Conway Myla BOTTLE LABELER Primary Care Provider [phone] Reason for Visit * Reason Onset Date Comments Results 04/27/2023 Encounter Details Date Type Department Care Team (Late st Contact Info) Description 04/27/2023 Telephone [facility] - [facility] Interventional Pain [address] [facility] [place] [address] Dickson Durham MBBS [address] [facility] [address] [place] [phone] Results Social History Tobacco Use Types Packs/Day [...] Telephone Encounter - Corina Pena RN - 04/27/2023 0919 EST Injection History: 04/26/2023: bilateral L3, L4, L5 MBBs->80% relief for more than 10 hours 03/10/2023: bilateral L3, L4, L5 MBBs->80% relief for 6 hours. 04/27/2023: Results reviewed by this RN * Telephone Encounter - Shilpa Hicks - 04/27/2023 0839 EST Follow up call - diagnostic injection Injection date and procedure: 04/26/2023 Diagnostic lumbar medial branch blocks at bilateral L3, L4, L5 Location of pain/symptoms that the patient is calling about: back bilateral Initial pain score: 5/10 1 hour post procedure pain score: 2/10 Current pain level: 5 (scale 0-10: 0 is no pain, 10 is worst pain ever) How many hours of relief from pain/symptoms on the day of the injection? more than 10 hours Was there significant functional relief or functional improvement? Yes feels pain was at least 90% better (yes = 80% or greater relief) Which daily activities was the patient able to do better? Exercising, walking, sitting , and bending Patient additional feedback: Patient states that prior to procedure that her pain is a 6 or higher at its worst. She states that she was able to walk bare foot which she was not able to do prior to procedure. She states that she is not able to sit on leather seats prior to the procedure but was able to do this last evening for about 45 mins without the extra cushion. She was able to do exercising(balance and strengthening) and during was able to balance on one foot without pain. And bending toclean down near a baseboard was easier. Next step/appt per MD plan: bilateral lumbar RFA at L3, L4 and L5 Forward to card game operator documented in this encounter Plan of Treatment Upcoming Encounters Date Type Department Care Team (Latest Contact Info) Description 03/27/2024 14:25 EST Hospital Encounter [facility] OR [address] [place] [id number] Vishal Castillo MD [address] [place] [phone] 03/27/2024 14:25 EST - 03/27/2024 17:55 EST Surgery [facility] OR [address] [place] [id number] Vishal Castillo MD [address] [place] [phone] Left Reverse Total Shoulder Arthroplasty [07165 (CPT??)] 04/08/2024 15:30 EST Post-op Visit [facility] Hand & Upper Extremity Program - [address] [address] Vishal Castillo MD [address] [place] [phone] Scheduled Procedures Name Priority Associated Diagnoses Date/Ti me ARTHROPLASTY, SHOULDER, TOTAL Left rotator cuff tear arthropathy 03/27/2024 14:25 EST documented as of this encounter Visit Diagnoses Not on filedocumented in this encounter Care Teams Instructor Physical Relationship Specialty Start Date End Date Barbara Conway, BOTTLE LABELER [address] [place] [address] PCP - General 08/19/13 documented as of this encounter
--- OUTSIDE RECORDS SUMMARY | 2024-03-18 22:09 | XMS_ITS | Encounter Summary ---
Author Organization [facility] Address [address] [place] [address] Care Team Providers Care Sustainable Systems Analyst Name Role Phone Zoraida Barbara Myla VERTICAL LATHE OPERATOR Primary Care Provider [phone] Reason for Referral * Radiology Services (Routine/Next Available) - Authorization Not Required Specialty Diagnoses / Procedures Referred By Maryuri t Referred To Contact Diagnoses Spinal stenosis of lumbar 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 Chronic left shoulder pain Biceps tendonitis on left Shoulder arthritis Status post total right knee replacement Chronic bilateral low back pain, unspecified whether sciatica present Procedures FL GUIDED LOCALIZATION, ASPIRATION, INJECTION, BIOPSY Ashish Dejesus MD Phone: tel: fax: [facility] Referral ID Status Reason Start Date Expiration Date Visits Requested Visits Authorized [id number] Authorization Not Required 03/27/2023 1 1 Reason for Visit * Reason Comments Follow-up Pain Encounter Details Date Type Department Care Team (Late st Contact Info) Description 03/27/2023 10:30 EST Office Visit [facility] Orthopedic Surgery - [address] [place] [address] Ashish Dejesus MD [address] [place] [address] Spinal stenosis of lumbar 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 (Primary Dx); Chronic left shoulder pain; Biceps tendonitis on left; Shoulder arthritis; Status post total right knee replacement; Chronic bilateral low back pain, unspecified whether sciatica present Social History Tobacco Use Types Packs/Day Years [...] - - Weight 78 kg (172 lb) 03/27/2023 0954 EST Height 162.6 cm (5' 4) 03/27/2023 0954 EST Body Mass Index 29.52 03/27/2023 0954 EST documented in this encounter Functional Status [...] Progress Notes * Ashish Dejesus MD - 03/27/2023 1030 EST Chief complaint: Left shoulder pain worsening Subjective: This 78-year-old right-handed female is back in the office for my evaluation of persistent left shoulder pain. I had seen her for the second time back in July 2022 was noted to have severe glenohumeral arthritis of the right shoulder with rotator cuff arthropathy. She has also had somechronic low back pain with an injection given on 03/10/2023. She has a planned radiofrequency treatment to be finalized in May 17, 2022 and she is already undergone some of the previous injections in preparation for that. She is doing exercises 3 times a week and doing bike riding 3 times a week to try to strengthen. She feels that the shoulder itself has fairly good range of motion but she feels that it tends to get in the way because of pain when she wants to do things and that sleeping sometimes is hard for this as well. She has pain along the anterior aspect of the shoulder primarily.She is unaware of any clicking or snapping or radiculopathy or numbness or tingling in her arm. Objective: General shows a friendly female no acute distress she is oriented x3 and vital signs arestable with a BMI 29.5 Neck exam grossly normal Spine exam grossly normal with a negative straight leg raising bilaterally. Shoulder examination: Left shoulder shows the patient have some discomfort about the proximal portion of the bicipital groove in the anterior aspect of the shoulder joint itself. She has surprisinglygood range of motion of the shoulder today with abduction to 100 degrees forward flexion 95 degreesinternal rotation full external Tatian fall full with no evidence today of impingement tendinopathy. No significant weakness is noted with this. Contralateral right shoulder shows adequate range of motion without provocative pain Neurovascular examination: Upper extremity shows grossly normal sensory examination light touch throughout the dermatomes with adequate strength of flexion-extension the muscle groups. Pulses were not tested. X-rays: No x-rays were obtained today but we did review the x-rays of the shoulder from 05/23/2022 Impression: #1 left shoulder pain consistent with significant glenohumeral arthritis with rotator cuff arthropathy #2 chronic low back pain with radiofrequency ablation underway to be finalized in April 2023 #[address] Otto 10/28/2019 #[address] Otto 2016 #5 diabetes mellitus type 2 hypertension GERD///cervical spine Arthritis Plan: I spent a total of 28 minutes on the day of the encounter with the patient reviewing documenting and coordinating care as indicated in the note. Our plan be to obtain a guided injection into the left glenohumeral joint to see how she does with this and depending upon the outcomes of that she knows that an MRI could be obtained for this if needed. She also continue to do her exercises but she can with this. Follow-ups arranged documented in this encounter Plan of Treatment Upcoming Encounters Date Type Department Care Team (Latest Contact Info) Description 03/27/2024 14:25 EST Hospital Encounter [facility] OR [address] [place] [address] [phone] Vishal Castillo MD [address] [place] [phone] 03/27/2024 14:25 EST - 03/27/2024 17:55 EST Surgery [facility] OR [address] [place] [address] [phone] Vishal Castillo MD [address] [place] [phone] Left Reverse Total Shoulder Arthroplasty [54307 (CPT??)] 04/08/2024 15:30 EST Post-op Visit [facility] Hand & Upper Extremity Program - [address] [place] [address] Vishal Castillo MD [address] [place] [phone] Scheduled Procedures Name Priority Associated Diagnoses Date/Ti tn ARTHROPLASTY, SHOULDER, TOTAL Left rotator cuff tear arthropathy 03/27/2024 14:25 EST documented as of this encounter Results * FL GUIDED INJECT/ASPIR [...] above interpretation and agree with the findings. [id number] Narrative 06/23/2023 17:40 EST FL GUIDED INJECT/ASPIR [...] procedure performed by Dr.Jorge Arguello, vice president of customer service. The patient tolerated the procedure well. There [...] Injectionprocedure performed by Dr.Jorge Arguello, vice president of customer service. The patient tolerated the procedure well. There were no immediatecomplications. IMPRESSION Successful intra-articular injection of steroid and anesthetic agent intothe left glenohumeral joint under fluoroscopic guidance. Dr. Rapp was present during the injection for intra-articularadministration of the steroid and anesthetic agent. I have personally reviewed the images and the above interpretation andagree with the findings. [id number] us Ashish Dejesus MD IMG FLUOROSCOPY ORDER ЕЛЕНА Final Result documented in this encounter Visit Diagnoses Diagnosis Spinal stenosis of lumbar 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- Primary Spinal stenosis, lumbar region, without neurogenic claudication Chronic left shoulder pain Pain in joint, shoulder region Biceps tendonitis on left Bicipital tenosynovitis Shoulder arthritis Unspecified arthropathy, shoulder region Status post total right knee replacement Chronic bilateral low back pain, unspecified whether sciatica present Arthritis of shoulder region, left- Primary Unspecified [...] arthropathy documented in this encounter Care Teams Sustainable Systems Analyst Relationship Specialty Start Date End Date Barbara Conway NP [address] [place] [address] PCP - General 08/19/13 documented as of this encounter
--- OUTSIDE RECORDS SUMMARY | 2024-03-18 22:09 | XMS_ITS | Encounter Summary ---
Author Organization [facility] Address [address] [place] [address] Care Team Providers Care Churn Operator Name Role Phone Barbara Conway BOBJ DEVELOPER Primary Care Provider [phone] Reason for Visit * Radiology Services (Routine/Next Available) - Authorization Not Required Specialty Diagnoses / Procedures Referred By Conttk t Referred To Contact Diagnoses Acute back pain with sciatica Procedures XR LUMBAR SPINE 2-3 VIEWS XR LUMBAR SPINE COMPLETE WITH FLEX/EXT AND OBLIQUES MIN 6 VIEWS Barbara Conway, BOBJ DEVELOPER [address] [place] [address] Phone: tel: fax: [facility] Referral ID Status Reason Start Date Expiration Date Visits Requested Visits Authorized [id number] Authorization Not Required 12/28/2022 1 1 Encounter Details Date Type Department Care Team (Latest Contact Info) Description 01/16/2023 13:00 EDT - 01/16/2023 23:59 EDT [address] [place], [place] [phone] Acute back pain with sciatica Discharge Disposition: Home or Self Care Social [...] 03/27/2024 14:25 EST Hospital Encounter [facility] OR [address] [place] [address] [phone] Vishal Castillo MD [address] [place] [phone] 03/27/2024 14:25 EST - 03/27/2024 17:55 EST Surgery [facility] OR [address] [place], [place] [phone] Vishal Castillo MD [address] [place] [phone] Left Reverse Total Shoulder Arthroplasty [34831 (CPT??)] 04/08/2024 15:30 EST Post-op Visit [facility] Hand & Upper Extremity Program - [address] [place] [address] Vishal Castillo MD [address] [place] [phone] Scheduled Procedures Name Priority Associated Diagnoses Date/Ti me ARTHROPLASTY, SHOULDER, TOTAL Left rotator cuff tear arthropathy 03/27/2024 14:25 EST documented as of this encounter Procedures Procedure Name Priority Date/Time Associated Diagnosis Comments XR LUMBAR SPINE 2-3 VIEWS Routine 01/16/2023 13:13 EDT Acute back pain with sciatica documented in this encounter Results * XR LUMBAR SPINE 2-3 VIEWS (01/16/2023 13:13 EDT) Anatomical Region Laterality Modality Spine Computed Radiogr aphy 01/16/2023 13:1 3 EDT Impressions 01/17/2023 15:42 EDT 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 Views: 2 or 3 views. COMPARISON: MR LUMBAR SPINE WO CONTRAST 10/20/2021 7:12 PM FINDINGS: Bones/joints: Narrowed lumbar interspaces with endplate osteophyte formation. Slight retrolisthesis of T12 on L1, L1-L2, L2 on L3. Slight anterolisthesis of L4 on L5. Advanced degenerative arthritis in the lumbar facets. Soft tissues: Unremarkable. Procedure Note Ashley Rose MD - 01/17/2023 PROCEDURE INFORMATION: Exam: XR Lumbosacral Spine Exam date and time: 01/16/2023 1:13 PM Age: 77 years old Clinical indication: Lumbago with sciatica, unspecified side; Other: Acuteback pain with sciatica; Additional info: Acute mesfin pain with sciatica TECHNIQUE: Imaging protocol: Radiologic exam of the lumbosacral spine. Views: 2 or 3 views. COMPARISON: MR LUMBAR SPINE WO CONTRAST 10/20/2021 7:12 PM FINDINGS: Bones/joints: Narrowed lumbar interspaces with endplate osteophyteformation. Slight retrolisthesis of T12 on L1, L1-L2, L2 on L3. Slightanterolisthesis of L4 on L5. Advanced degenerative arthritis in the lumbar facets. Soft tissues: Unremarkable. 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
--- OUTSIDE RECORDS SUMMARY | 2024-03-18 22:09 | XMS_ITS | Encounter Summary ---
Author Organization [facility] Address [address] [place] [address] Care Team Providers Care Telecom Engineer Name Role Phone Barbara Conway Myla CORE DIPPER Primary Care Provider [phone] Reason for Visit * Reason Comments Follow-up Things going well-ve ry pleased. Encounter Details Date Type Department Care Team (Late st Contact Info) Description 05/26/2022 14:30 EST Office Visit [facility] Pelvic Medicine and Reconstructive Surgery - Medical Office [facility] [address] [place] [address] [phone] Simi Logan MD [address] [facility], [address] [place] [phone] Urgency incontinence (Primary Dx) Social History Tobacco Use Types [...] EDMackenzie Pickard RN documented in this encounter Progress Notes * Simi Logan MD - 05/26/2022 1430 EST Urology F/U Aretha is a 77 y.o. female with a hx of urinary [...] - symptoms resolve fairly quickly with keflex. 06/16: doing well. Pleased with improvement. 90% improvement. Down to one pad. No leaks at night - no more big accidents/floods. Not wet overnight. Not worried about bathrooms anymore. Still a small amount of leak if she delays a void/urge but small amounts. NoUTIs since then. Still doing decaf. Objective/Physical Exam: Vital Signs: There were no vitals taken for this visit. Exam: Gen: Alert, in no distress Oropharynx: Lips normal Head: Atraumatic Pulm: Normal effort, unlabored Genital: no CVA tenderness Musculoskeletal: No gross motor deficits Skin: Skin warm and dry Psych: Mood and affect appropriate PVR: 19ml Data Review: NA Assessment/Plan 1. Urgency incontinence 77 yo female with a hx of stress urinary incontinence for years. Bothered by urgency and urge incontinence. Also has UTIs. All improved with estrace and caffeine reduction. Cut down caffeine. Estrace F/u 1 yr Consider PFPT and meds if not better. SIMI LOGAN MD This note has been prepared with voice recognition software. Please excuse carpenter's helper errors.' documented in this encounter Plan of Treatment Upcoming Encounters Date Type Department Care Team (Latest Contact Info) Description 03/27/2024 14:25 EST Hospital Encounter [facility] OR [address] [place] [address] Vishal Castillo MD [address] [place] [phone] 03/27/2024 14:25 EST - 03/27/2024 17:55 EST Surgery [facility] OR [address] [place], [place] [phone] Vishal Castillo MD [address] [place] [phone] Left Reverse Total Shoulder Arthroplasty [25640 (CPT??)] 04/08/2024 15:30 EST Post-op Visit [facility] Hand & Upper Extremity Program - [address] [place] [address] Vishal Castillo MD [address] [place] [phone] Scheduled Procedures Name Priority Associated Diagnoses Date/Ti me ARTHROPLASTY, SHOULDER, TOTAL Left rotator cuff tear arthropathy 03/27/2024 14:25 EST documented as of this encounter Procedures Procedure Name Priority Date/Time Associated Diagnosis Comments BLADDER SCAN Routine 05/26/2022 Urgency incontinence documented in this encounter Results * BLADDER SCAN (05/26/2022) Bladder Scan 19cc [facility] P OINT OF CARE us Simi Logan MD PROCEDURE/MINOR SURGICAL ORDE REDD Final Result [facility] POINT OF CARE documented in this encounter Visit Diagnoses Diagnosis Urgency incontinence- Primary Urge incontinence Left rotator cuff tear arthropathy documented in this encounter Care Teams Telecom Engineer Relationship Specialty Start Date End Date Barbara Conway, CORE DIPPER [address] [place] [address] PCP - General 08/19/13 documented as of this encounter
--- OUTSIDE RECORDS SUMMARY | 2024-03-18 22:09 | XMS_ITS | Encounter Summary ---
Author Organization [facility] Address [address] [place] [address] Care Team Providers Care Message Broker Developer Name Role Phone Henri Conwayi Myla REGIONAL PLANNER Primary Care Provider [phone] Encounter Details Date Type Department Care Team (Latest Contact Info) Description 05/23/2022 8:15 EST - 05/23/2022 23:59 EST Hospital Encounter [facility] [address] [place], [place] [phone] Chronic left shoulder pain Discharge Disposition: Home [...] Info) Description 03/27/2024 14:25 EST Hospital Encounter [facility] OR [address] [place] [address] [phone] Vishal Castillo MD [address] [place] [phone] 03/27/2024 14:25 EST - 03/27/2024 17:55 EST Surgery [facility] OR [address] [place] [address] [phone] Vishal Castillo MD [address] [place] [phone] Left Reverse Total Shoulder Arthroplasty [44281 (CPT??)] 04/08/2024 15:30 EST Post-op Visit [facility] Hand & Upper Extremity Program - [address] [address] Vishal Castillo MD [address] [place] [phone] Scheduled Procedures Name Priority Associated Diagnoses Date/Ti me ARTHROPLASTY, SHOULDER, TOTAL Left rotator cuff tear arthropathy 03/27/2024 14:25 EST documented as of this encounter Procedures Procedure Name Priority Date/Time Associated Diagnosis Comments XR SHOULDER LEFT 2 OR MORE VIEWS Routine 05/23/2022 9:48 EST Chronic left shoulder pain documented in this encounter Results * XR SHOULDER LEFT 2 OR MORE VIEWS (05/23/2022 9:48 EST) Anatomical Region Laterality Modality Left Computed Radiogr aphy 05/24/2022 12:2 8 EST Impressions 05/24/2022 12:28 EST FINDINGS / IMPRESSION: 4 views of the left shoulder show no evidence of acute fracture or dislocation. There are however severe degenerative changes in the glenohumeral joint with at least moderate degenerative changes in the acromioclavicular joint. Multilevel degenerative changes seen in the included portions of the spine. There is diffuse osteopenia. Soft tissues are grossly unremarkable Narrative 05/24/2022 12:28 EST EXAM/TECHNIQUE: XR SHOULDER LEFT 2 OR MORE VIEWS ??05/23/2022 8:15 AM HISTORY: ?? Left shoulder pain COMPARISON: Left shoulder radiographs dated September 04, 2020. Procedure Note Roque Kay MD - 05/24/2022 EXAM/TECHNIQUE: XR SHOULDER LEFT 2 OR MORE VIEWS 05/23/2022 8:15 AM HISTORY: Left shoulder pain COMPARISON: Left shoulder radiographs dated September 04, 2020. IMPRESSION FINDINGS / IMPRESSION: 4 views of the left shoulder show no evidence of acute fracture ordislocation. There are however severe degenerative changes in theglenohumeral joint with at least moderate degenerative changes in theacromioclavicular joint. Multilevel degenerative changes seen in theincluded portions of the spine. There is diffuse osteopenia. Soft tissuesare grossly unremarkable Ashish Dejesus MD IMG DIAGNOSTIC IMAGIN G ORDERABLES Final Result documented in this encounter Visit Diagnoses Diagnosis Chronic left shoulder pain Pain in joint, shoulder region Left rotator cuff tear arthropathy documented in this encounter Care Teams Message Broker Developer Relationship Specialty Start Date End Date Barbara Conway NP [address] [place] [address] PCP - General 08/19/13 documented as of this encounter
--- OUTSIDE RECORDS SUMMARY | 2024-03-18 22:10 | XMS_ITS | Encounter Summary ---
Author Organization [facility] Address [address] [place] [address] Care Team Providers Care Stained Glass Joiner Name Role Phone Barbara Conway CAN LINE EXAMINER Primary Care Provider [phone] Encounter Details Date Type Department Care Team (Latest Contact Info) Description 09/04/2020 13:14 EDT - 09/04/2020 23:59 EDT Hospital Encounter [facility] [address] [place], [place] [phone] Chronic left shoulder pain Discharge Disposition: Home [...] hearing? Answer Date of Assessment Author No 10/28/2019 17:00 EDT Mackenzie Pappas RN * Are you blind or do [...] tablet Take 1 Tablet by mouth daily. gabapentin (NEURONTIN) 100 mg capsule Take 1 [...] days at first sign of UTI 4 documented as of this encounter Discharge Disposition Disposition Code Departure Means Destination Home or Self Care documented in this encounter Plan of Treatment Upcoming Encounters Date Type Department Care Team (Latest Contact Info) Description 03/27/2024 14:25 EST Hospital Encounter [facility] OR [address] [place] [phone] Vishal Castillo MD [address] [place] [phone] 03/27/2024 14:25 EST - 03/27/2024 17:55 EST Surgery [facility] OR [address] [place] [phone] Vishal Castillo MD [address] [place] [phone] Left Reverse Total Shoulder Arthroplasty [66311 (CPT??)] 04/08/2024 15:30 EST Post-op Visit [facility] Hand & Upper Extremity Program - [address] [address] Vishal Castillo MD [address] [place] [phone] Scheduled Procedures Name Priority Associated Diagnoses Date/Ti me ARTHROPLASTY, SHOULDER, TOTAL Left rotator cuff tear arthropathy 03/27/2024 14:25 EST documented as of this encounter Procedures Procedure Name Priority Date/Time Associated Diagnosis Comments XR SHOULDER LEFT 2 OR MORE VIEWS Routine 09/04/2020 13:25 EDT Chronic left shoulder pain documented in this encounter Results * XR SHOULDER LEFT 2 OR MORE VIEWS (09/04/2020 13:25 EDT) Anatomical Region Laterality Modality Left Computed Radiogr aphy 09/07/2020 10:0 7 EDT Impressions 09/07/2020 10:07 EDT FINDINGS / IMPRESSION: 3 views of the left shoulder show no acute fracture or malalignment. There is severe osteoarthrosis in the glenohumeral joint and moderate osteoarthrosis in the AC joint. Opacity projecting over the lower mediastinum corresponds to a fairly large hiatal hernia, as demonstrated on prior CT scans. Narrative 09/07/2020 10:07 EDT EXAM/TECHNIQUE: XR SHOULDER LEFT 2 OR MORE VIEWS ??09/04/2020 1:15 PM HISTORY: ?? left shoulder pain COMPARISON: None. Procedure Note Arturo Falk, DO - 09/07/2020 EXAM/TECHNIQUE: XR SHOULDER LEFT 2 OR MORE VIEWS 09/04/2020 1:15 PM HISTORY: left shoulder pain COMPARISON: None. IMPRESSION FINDINGS / IMPRESSION: 3 views of the left shoulder show no acute fracture or malalignment. Thereis severe osteoarthrosis in the glenohumeral joint and moderateosteoarthrosis in the AC joint. Opacity projecting over the lowermediastinum corresponds to a fairly large hiatal hernia, as demonstratedon prior CT scans. us Suzy Weir Child PA-C IMG DIAGNOSTIC IMAGING OR DERABLES Final Result documented in this encounter Visit Diagnoses Diagnosis Chronic left shoulder pain Pain in joint, shoulder region Left rotator cuff tear arthropathy documented in this encounter Care Teams Stained Glass Joiner Relationship Specialty Start Date End Date Barbara Conway NP [address] [place] [address] PCP - General 08/19/13 documented as of this encounter
--- OUTSIDE RECORDS SUMMARY | 2024-03-18 22:10 | XMS_ITS | Encounter Summary ---
Author Organization [facility] Address [address] [place] [address] Care Team Providers Care Food Safety Scientist Name Role Phone Barbara Conway MERCHANDISE PLANNER Primary Care Provider [phone] Reason for Referral * Radiology Services (Routine/Next Available) - Authorization Not Required Specialty Diagnoses / Procedures Referred By Maryuri t Referred To Contact Diagnoses Encounter for screening mammogram for malignant neoplasm of breast Procedures MA BREAST SCREENING CLOVIS BILATERAL Barbara Conway NP [address] [place] [address] Phone: tel: fax: [facility] Referral ID Status Reason Start Date Expiration Date Visits Requested Visits Authorized [id number] Authorization Not Required 09/04/2021 1 1 Reason for Visit * Radiology Services (Routine/Next Available) - Authorization Not Required Specialty Diagnoses / Procedures Referred By Maryuri sarmiento Referred To Contact Diagnoses Encounter for screening mammogram for malignant neoplasm of breast Procedures MA BREAST SCREENING CLOVIS BILATERAL Barbara Conway NP [address] [place] [address] Phone: tel: fax: [facility] Referral ID Status Reason Start Date Expiration Date Visits Requested Visits Authorized [id number] Authorization Not Required 09/04/2021 1 1 Encounter Details Date Type Department Care Team (Latest Contact Info) Description 01/26/2022 12:27 EDT - 01/26/2022 23:59 EDT Hospital Encounter [facility] Breast Imaging - [facility] [address] [place] [address] Encounter for screening mammogram for malignant neoplasm [...] EST Hospital Encounter [facility] OR [address] [place] [address] [id number] Vishal Castillo MD [address] [place] [phone] 03/27/2024 14:25 EST - 03/27/2024 17:55 EST Surgery [facility] OR [address] [place] [address] [id number] Vishal Castillo MD [address] [place] [phone] Left Reverse Total Shoulder Arthroplasty [02733 (CPT??)] 04/08/2024 15:30 EST Post-op Visit [facility] Hand & Upper Extremity Program - [facility] [address] [place] [address] Vishal Castillo MD [address] [place] [phone] Scheduled Procedures Name Priority Associated Diagnoses Date/Ti me ARTHROPLASTY, SHOULDER, TOTAL Left rotator cuff tear arthropathy 03/27/2024 14:25 EST documented as of this encounter Procedures Procedure Name Priority Date/Time Associated Diagnosis Comments MA BREAST SCREENING CLOVIS BILATERAL Routine 01/26/2022 13:08 EDT Encounter for screening mammogram for malignant neoplasm of breast documented in this encounter Results * MA BREAST SCREENING CLOVIS BILATERAL (01/26/2022 13:08 EDT) Anatomical Region Laterality Modality Breast Bilateral Mammography 01/28/2022 14:0 0 EDT Impressions 01/28/2022 14:00 EDT Negative, no evidence of malignancy. RECOMMENDATION: Routine screening mammography is recommended. OVERALL ASSESSMENT: BI-RADS 1: Negative These results will be communicated to your patient via a lay letter from Radiology. If any additional imaging is needed we will contact your patient directly. Narrative 01/28/2022 14:00 EDT MA BREAST SCREENING CLOVIS BILATERAL ??01/26/2022 1:00 PM History: Routine Comparison: ??Comparison has been made to previous images. Technique: Routine 3D tomosynthesis with synthesized 2D views with CAD Breast Composition: There are scattered areas of fibroglandular density. Bilateral Breast Findings: ??No significant masses, calcifications or other abnormalities are seen. Procedure Note Brittany Hernandez MD - 01/28/2022 MA BREAST SCREENING CLOVIS BILATERAL 01/26/2022 1:00 PM History: Routine Comparison: Comparison has been made to previous images. Technique: Routine 3D tomosynthesis with synthesized 2D [...] is needed we will contact yourpatient directly. us Barbara Conway NP IMG MAMMOGRAPHY ORDERABLES Fi nal Result documented in this encounter Visit Diagnoses Diagnosis Encounter for screening mammogram for malignant neoplasm of breast Other screening mammogram Left rotator cuff tear arthropathy documented in this encounter Care Teams Food Safety Scientist Relationship Specialty Start Date End Date Barbara Conway, MERCHANDISE PLANNER [address] [place] [address] PCP - General 08/19/13 documented as of this encounter
--- OUTSIDE RECORDS SUMMARY | 2024-03-18 22:10 | XMS_ITS | Encounter Summary ---
Author Organization [facility] Address [address] [place] [address] Care Team Providers Care Cellophane Casting Machine Repairer Name Role Phone ZoraidaBarbara Myla SERVICES PROGRAM MANAGER Primary Care Provider [phone] Reason for Visit * Reason Onset Date Comments Medication Management 08/31/2021 Encounter Details Date Type Department Care Team (Late st Contact Info) Description 08/31/2021 Telephone [facility] General Surgery - [facility] [address] [place], [place] [phone] Arnel Olvia MD [address] [facility], [address] [place] [address] Medication Management Social History Tobacco Use Types Packs/Day Years [...] No 10/28/2019 17:00 EDMackenzie Pickard RN * Are you blind or do [...] EDMackenzie Pickard RN documented in this encounter Ordered Prescriptions Prescription Sig Dispense Quantity Refills Last Filled Start Date End Date polyethylene glycol (GOLYTELY) 236-22.74-6.74 -5.86 gram suspension Please follow one time use instructions provided by general surgery 1 Each 08/31/2021 2 documented in this encounter Miscellaneous Notes * Telephone Encounter - Beth Cazares RN - 08/31/2021 0810 EDT Prescription sent per protocol * Telephone Encounter - Rosanne Patel - 08/31/2021 0803 EDT Calling for prep to be called into her Pharmacy for colonoscopy on 09/08/21. documented in this encounter Plan of Treatment Upcoming Encounters Date Type Department Care Team (Latest Contact Info) Description 03/27/2024 14:25 EST Hospital Encounter [facility] OR [address] [place], [place] [id number] Vishal Castillo MD [address] [place] [phone] 03/27/2024 14:25 EST - 03/27/2024 17:55 EST Surgery [facility] OR [address] [place] [address] [phone] Vishal Castillo MD [address] [place] [phone] Left Reverse Total Shoulder Arthroplasty [05026 (CPT??)] 04/08/2024 15:30 EST Post-op Visit [facility] Hand & Upper Extremity Program - [address] [address] Vishal Castillo MD [address] [place] [phone] Scheduled Procedures Name Priority Associated Diagnoses Date/Ti me ARTHROPLASTY, SHOULDER, TOTAL Left rotator cuff tear arthropathy 03/27/2024 14:25 EST documented as of this encounter Visit Diagnoses Not on filedocumented in this encounter Care Teams Cellophane Casting Machine Repairer Relationship Specialty Start Date End Date Barbara Conway NP [address] [place] [address] PCP - General 08/19/13 documented as of this encounter
--- OUTSIDE RECORDS SUMMARY | 2024-03-18 22:10 | XMS_ITS | Encounter Summary ---
Author Organization [facility] Address [address] [place] [address] Care Team Providers Care Build Manager Name Role Phone Barbara Conway PHOTOGRAPHIC SUPERVISOR Primary Care Provider [phone] Reason for Visit * Reason Comments Follow-up Left shoulder/upper arm pain DOI 07/26/2020 * Consult, Test and Treat (Routine) - Receiving Office to Obtain Authorization Specialty Diagnoses / Procedures Referred By Maryuri sarmiento Referred To Contact Orthopedic Surgery Diagnoses Left arm pain Self, Referral [facility] Orthopedic Surgery - [address] [place] [address] Phone: tel: fax: Referral ID Status Reason Start Date Expiration Date Visits Requested Visits Authorized [id number] Receiving Office to Obtain Authorization 1 1 Encounter Details Date Type Department Care Team (Late st Contact Info) Description 09/04/2020 13:00 EDT Office Visit [facility] Orthopedic Surgery - [address] [place] [address] Child, Suzy Weir PA-C [address] [place] [phone] Chronic left shoulder pain (Primary Dx); Arthritis of left glenohumeral joint Social History Tobacco Use Types Packs/Day Years [...] - Inhaled Oxygen Concentration - - Weight 88.5 kg (195 lb) 09/04/2020 1310 EDT Height 160 cm (5' 3) 09/04/2020 1310 EDT Body Mass Index 34.54 09/04/2020 1310 EDT documented in this encounter Functional Status [...] documented in this encounter Progress Notes * Child, Suzy Weir PA-C - 09/04/2020 1300 EDT CC: Left shoulder pain, DOI: 07/26/20 SUBJECTIVE: Aretha Garcia is a very pleasant RHD 75 y.o. female with PMH significant for hypertension, hyperlipidemia, type 2 diabetes on metformin, GERD, history of stage I colorectal cancer, mitral valve prolapse who presents to the office today about 6 weeks after the patient fell on Easter whileoutside walking. She states she thinks she landed more on her knees with her arms outstretched and did not have shoulder pain right away but rather a week or so later began to notice worsening pain in her left shoulder. She reports her friend is a retired physical therapist and has helped her with some stretches and exercises since her injury. She advised the patient come in for an orthopedic evaluation prior to having her work directly with the patient. She is very active with daily exercise and uses her exercise bike and takes classes. She states her range of motion seems to be improved andher pain is well controlled. She states occasionally there are days where it feels stiff with some catching over the lateral shoulder but today is a good day. Prior to this fall she states her shoulder was not particularly bothersome. She states she has spinal stenosis and arthritis all over her body but has never been particularly bothered by her shoulders. She is status post a right total knee arthroplasty with Dr. Otto and was last seen in this office by him in May of this year. The past medical, family and social history, and ROS have been reviewed in the patient chart. All other systems reviewed and negative unless specified in the HPI. Past Medical History: Diagnosis Date ??? Anesthesia complication severe N/V. Had local for other knee and it worked great ??? Anserine bursitis Right anserine tendinitis/bursitis ??? Arrhythmia 10/24/19 EKG NSR with 1st degree AV block ??? Back pain ??? Bilateral bunions ??? Colon cancer ([facility]) cancerous polyp removed Apr 2005 ??? Colon polyp ??? Complication of anesthesia nausea ??? Diabetes mellitus (HCC-CMS) 10/18/19 A1C 6.5 . Fs daily 120 [...] & vomiting ??? Obesity ??? Rectal cancer ([facility]) stage 1 colo rectal cancer Past Surgical History: Procedure Laterality Date ??? COLON SURGERY colon polyp removed ??? COLONOSCOPY ??? JOINT REPLACEMENT left knee ??? TONSILLECTOMY ??? TUBAL LIGATION Outpatient Encounter Medications as of 09/04/2020 Medication Sig Dispense Refill ??? acetaminophen (TYLENOL) 500 mg tablet Take 2 Tabs by mouth every 6 hours. ??? ascorbic acid (VITAMIN C) 500 mg tablet Take 1 Tab by mouth at bedtime. ??? atenolol (TENORMIN) 50 mg tablet Take 50 mg by mouth daily. ??? atorvastatin (LIPITOR) 40 mg tablet Take 40 mg by mouth at bedtime. Take 1/2 tab ??? cephALEXin (KEFLEX) 500 mg capsule Take 500 mg by mouth as needed. 1 tab BID for 3 days at first sign of UTI ??? cholecalciferol, Vitamin D3, 1,000 unit tablet Take 1,000 Units by mouth daily. ??? docusate sodium (COLACE) 100 mg capsule Take 2 Caps by mouth 2 times daily as needed for Constipation. (Patient not taking: Reported on 12/03/2019) ??? gabapentin (NEURONTIN) 100 mg capsule Take 100 mg by mouth 2 times daily. 2 caps at lunchtime 3at hs ??? lisinopril (PRINIVIL, ZESTRIL) 40 mg tablet Take 40 mg by mouth daily. ??? metformin (GLUCOPHAGE) 1,000 mg tablet Take 1,000 mg by mouth 2 times daily with meals. ??? methocarbamoL (ROBAXIN) 750 mg tablet Take 1 Tab by mouth 4 times daily. (Patient not taking: Reported on 12/03/2019) 50 Tab 0 ??? metoprolol (LOPRESSOR) 50 mg tablet Take 50 mg by mouth 2 times daily. ??? omeprazole (PRILOSEC) 40 mg capsule Take 40 mg by mouth daily. ??? ondansetron (ZOFRAN) 4 mg tablet Take 1 Tab by mouth every 8 hours as needed for Nausea. (Patient not taking: Reported on 12/03/2019) 12 Tab 0 ??? polyethylene glycol 3350 (MIRALAX) 17 gram packet Take 17 g by mouth daily as needed (constipation). (Patient not taking: Reported on 12/03/2019) ??? scopolamine (TRANSDERM-SCOP) 1 mg over [address] 1 Patch onto the skin every 72 hours.(Patient not taking: Reported on 12/03/2019) 6 Patch 0 ??? traMADoL (ULTRAM) 50 mg tablet Take 1-2 Tabs by mouth every 6 hours. Daily Max: 400 mg (Patientnot taking: Reported on 12/03/2019) 50 Tab 0 No facility-administered encounter medications on file as of 09/04/2020. Objective: This patient is alert, awake and cooperative. This patient is normocephalic. This patient's mood is appropriate and is in no acute distress. This patient has unlabored breathing with a normal rate and rhythm. The cervical spine has normal alignment, it is not tender to palpation and has supple range of motion without pain. There is a negative cervical compression test to the affected side. There is no significant increased tenderness to palpation of the scalenus anticus muscle on the affected side. The skin about the affected shoulder is clean, dry and not inflamed. There is no deformity, induration, soft tissue defect or abnormal mass detected. There is no visual or palpable muscle atrophy. The skin has normal color, temperature and hydration. There is no focal point tenderness to palpation over the clavicle, acromioclavicular joint, anterior acromion, lesser tuberosity, bicipital groove, or greater tuberosity unless stated below: No palpable tenderness The right shoulder has 160 degrees of forward elevation,160 degrees of active abduction in the scapular plane, 60 degrees of external rotation at 0?? abduction and internal rotation to T12. The left shoulder has 160 degrees of forward elevation,160 degrees of active abduction in the scapular plane, 60 degrees of external rotation at 0?? abduction and internal rotation to T12. In the affected shoulder there is a - Hawkin impingement test, - Neer impingement test, - Carmichael active compression test, - external rotation lag test, - belly press test, - Bear Hug test, - Yergason's test, + speed's test, - cross body abduction impingement sign, - internal impingement test. Empty can test is negative The affected shoulder has 5-/5 strength with contraction of the supraspinatus, 5-/5 strength with contraction of the infraspinatus, 5-/5 strength with contraction of the subscapularis, 5-/5 strength with contraction of the biceps, 5-/5 strength with contraction of the deltoid, 5-/5 strength with contraction of the serratus anterior. The contralateral shoulder has 5/5 strength with contraction of the supraspinatus, 5/5 strength with contraction of the infraspinatus, 5/5 strength with contraction of the subscapularis, 5/5 strengthwith contraction of the biceps, 5/5 strength with contraction of the deltoid, 5/5 strength with cont raction of the serratus anterior. The ipsilateral elbow wrist and fingers have a supple, full and painless range of motion. There is an intact radial pulse. The fingers are pink and warm with good capillary refill. There is no swelling in this extremity. Images/Radiographs: Today we obtained left shoulder ap neutral, grashey, outlet, axillary views which I independently visualized and interpreted showing advanced degenerative changes of the glenohumeral and AC joints with avix-fk-etct changes involving the glenohumeral joint. There is a sclerotic line at the humeral head and neck junction which is possibly compatible with a subacute fracture vs os teophyte formation along the articular surface of the humeral head; this is well seen in the ap andaxillary views. There is no anterior or posterior translation of the humeral head with respect to the glenoid on axillary views. Assessment: Severe glenohumeral arthritis, possible subacute nondisplaced fracture of the proximal humerus although unlikely given history and clinical exam PLAN: Treatment options, including physical therapy, conservative measures, surgical interventions, and medical therapies were reviewed with the patient. The patient is here today mostly for reassurance. She has minimal pain and a reassuring clinical exam. The patient may proceed with physical therapy with her friend and continue with activities as tolerated. We discussed if any of her pain worsens she can return to clinic at which point we can consider glenohumeral joint injections or subacromial injections. Patient reassurance provided. Patient was encouraged to call the office with any questions or concerns. Follow up: As needed I spent a total of 30 minutes on the date of this encounter meeting with the patient and reviewing documentation/coordinating care as described in the above note. No procedures were performed at the time of the visit. Dr. Irhaeta was the attending physician available in the clinic today if needed. A consultation wasnot required. This note was prepared using voice recognition software and the EMR. There may be inadvertent errors and omissions. Suzy Alexandra PA-C 09/04/2020 10:19 documented in this encounter Plan of Treatment Upcoming Encounters Date Type Department Care Team (Latest Contact Info) Description 03/27/2024 14:25 EST Hospital Encounter [facility] OR [address] [place] [address] [phone] Vishal Castillo MD [address] [place] [phone] 03/27/2024 14:25 EST - 03/27/2024 17:55 EST Surgery [facility] OR [address] [place] [address] [phone] Vishal Castillo MD [address] [place] [phone] Left Reverse Total Shoulder Arthroplasty [85347 (CPT??)] 04/08/2024 15:30 EST Post-op Visit [facility] Hand & Upper Extremity Program - [address] [place] [address] Vishal Castillo MD [address] [place] [phone] Scheduled Procedures Name Priority Associated Diagnoses Date/Ti me ARTHROPLASTY, SHOULDER, TOTAL Left rotator cuff tear arthropathy 03/27/2024 14:25 EST documented as of this encounter Results * XR SHOULDER LEFT [...] hiatal hernia, as demonstratedon prior CT scans. Suzy Weir Child PA-C IMG DIAGNOSTIC IMAGING OR DERABLES Final Result documented in this encounter Visit Diagnoses Diagnosis Chronic left shoulder pain- Primary Pain in joint, shoulder region Arthritis of left glenohumeral joint Chronic left shoulder pain Pain in joint, shoulder region Left rotator cuff tear arthropathy documented in this encounter Discontinued Medications Medication Sig Discontinue Reason Start Date End Da te scopolamine (TRANSDERM-SCOP) 1 mg over [address] 1 Patch onto the skin every 72 hours. 10/30/2019 09/04/2020 traMADoL (ULTRAM) 50 mg tablet Take 1-2 Tabs by mouth every 6 hours. Daily Max: 400 mg Therapy completed 10/30/2019 09/04/2020 polyethylene glycol 3350 (MIRALAX) 17 gram packet Take 17 g by mouth daily as needed (constipation). Therapy completed 10/30/2019 09/04/2020 ondansetron (ZOFRAN) 4 mg tablet Take 1 Tab by mouth every 8 hours as needed for Nausea. Therapy completed 11/01/2019 09/04/2020 methocarbamoL (ROBAXIN) 750 mg tablet Take 1 Tab by mouth 4 times daily. Therapy completed 10/30/2019 09/04/2020 docusate sodium (COLACE) 100 mg capsule Take 2 Caps by mouth 2 times daily as needed for Constipation. Therapy completed 10/30/2019 09/04/2020 documented as of this encounter Care Teams Build Manager Relationship Specialty Start Date End Date Barbara Conway NP [address] [place] [address] PCP - General 08/19/13 documented as of this encounter
--- OUTSIDE RECORDS SUMMARY | 2024-03-18 22:10 | XMS_ITS | Encounter Summary ---
Author Organization [facility] Address [address] [place] [address] Care Team Providers Care Supervisor Particleboard Name Role Phone Barbara Conway WOOD GRAINER Primary Care Provider [phone] Reason for Referral * Radiology Services (Routine/Next Available) - Authorization Not Required Specialty Diagnoses / Procedures Referred By Contac t Referred To Contact Radiology Diagnoses Low back pain Procedures MR LUMBAR SPINE WO CONTRAST Barbara Conway NP [address] [place] [address] Phone: tel: fax: [facility] Referral ID Status Reason Start Date Expiration Date Visits Requested Visits Authorized [id number] Authorization Not Required 10/05/2021 1 1 Reason for Visit * Radiology Services (Routine/Next Available) - Authorization Not Required Specialty Diagnoses / Procedures Referred By Contac t Referred To Contact Radiology Diagnoses Low back pain Procedures MR LUMBAR SPINE WO CONTRAST Barbara Conway NP [address] [place] [address] Phone: tel: fax: [facility] Referral ID Status Reason Start Date Expiration Date Visits Requested Visits Authorized [id number] Authorization Not Required 10/05/2021 1 1 Encounter Details Date Type Department Care Team (Latest Contact Info) Description 10/20/2021 19:07 EDT - 10/20/2021 23:59 EDT Hospital Encounter [address] [facility] [address] [place] [phone] Low back pain Discharge Disposition: Home or Self Care [...] Description 03/27/2024 14:25 EST Hospital Encounter [facility] OR [address] [place] [address] [phone] Vishal Castillo MD [address] [place] [phone] 03/27/2024 14:25 EST - 03/27/2024 17:55 EST Surgery [facility] OR [address] [place] [address] [phone] Vishal Castillo MD [address] [place] [phone] Left Reverse Total Shoulder Arthroplasty [82300 (CPT??)] 04/08/2024 15:30 EST Post-op Visit [facility] Hand & Upper Extremity Program - [address] [place] [address] Vishal Castillo MD [address] [place] [phone] Scheduled Procedures Name Priority Associated Diagnoses Date/Ti me ARTHROPLASTY, SHOULDER, TOTAL Left rotator cuff tear arthropathy 03/27/2024 14:25 EST documented as of this encounter Procedures Procedure Name Priority Date/Time Associated Diagnosis Comments MR LUMBAR SPINE WO CONTRAST Routine 10/20/2021 19:58 EDT Low back pain documented in this encounter Results * MR LUMBAR SPINE WO CONTRAST (10/20/2021 19:58 EDT) Anatomical Region Laterality Modality Spine Magnetic Resonan ce 10/21/2021 5:25 EDT Impressions 10/21/2021 11:09 EDT 1. Severe central canal stenosis at L4-L5 [...] which can be associated with Baastrup's disease. THIS DOCUMENT HAS BEEN ELECTRONICALLY SIGNED BY FRANCI ALDANA MD FOR ANY QUESTIONS OR CONCERNS REGARDING THIS REPORT PLEASE CALL [facility] AT [phone] Narrative 10/21/2021 11:09 EDT PROCEDURE INFORMATION: Exam: MR Lumbar Spine Without Contrast Exam date and time: 10/20/2021 7:12 PM Age: 76 years old Clinical indication: Low back pain, unspecified; Other: Lumbar radiculopathy, no red flags, no prior management TECHNIQUE: Imaging protocol: Magnetic resonance imaging of the lumbar spine without contrast. COMPARISON: CT ABDOMEN, PELVIS 08/09/2010 1:18 PM FINDINGS: Bones/joints: A subacute Schmorl's node is present at the inferior endplate of L4 with only mild depression of the endplate. There is a smaller, minor subacute Schmorl's node at the superior endplate of L5. Chronic Schmorl's nodes are also present at L1 and L2. Hemangiomata are present in the T12, L1, and L5 vertebral bodies. The lumbar lordosis is exaggerated. 3 mm retrolisthesis is present at L5-S1. There is 5 mm anterolisthesis of L4-L5. 6 mm retrolisthesis is present at L2-L3 and there is 4 mm retrolisthesis of L1-L2. Marked narrowing of the interspinous intervals is demonstrated in the lower lumbar motion segments and there is adventitial bursitis between the L4 and L5 spinous processes, a finding which can be associated with Baastrup's disease. Spinal cord: The lower thoracic spinal cord and conus medullaris demonstrate preservation of signal intensity on all pulse sequences. Cauda equina are normal in caliber and signal intensity. T11-T12: This level is not included on axial imaging but on sagittal imaging there is 4 mm disc bulge with tear of the annular margin at the left central position, and a 6 mm probable disc sequestration just caudal to the disc margin, image 6 of series 201. T12-L1: Trace disc bulge. No central canal or neural foraminal stenosis. There is bilateral facet arthropathy and ligamentum flavum hypertrophy. L1-L2: L1 posterior inferior endplate osteophyte. 3 mm disc bulge. Minimal central canal stenosis from disc pathology and ligamentum flavum hypertrophy with facet arthropathy. Severe right and moderate proximal left neural foraminal stenosis. Facet arthropathy contacts the right L1 nerve root. L2-L3: 3 mm disc bulge and retrolisthesis with L2 endplate ridging results in moderate central canal stenosis. Facet arthropathy and ligamentum flavum hypertrophy contribute to canal stenosis. There is partial effacement of the lateral recesses, left greater than right, resulting in mass effect on the left L3 nerve root from facet arthropathy and disc bulge. Disc bulge contacts the right L3 nerve root. Moderate right and severe left neural foraminal stenosis is present. Facet arthropathy causes direct impression on the left L2 nerve root. L3-L4: 2 mm disc bulge. Moderate central canal stenosis from disc bulge and severe facet arthropathy with ligamentum flavum hypertrophy. Partial effacement of the lateral recesses, left greater than right. Facet arthropathy and disc bulge cause impression on the left L4 nerve root in the lateral recess. Severe left and moderate right neural foraminal stenosis is present with facet arthropathy contacting the L3 nerve roots. L4-L5: 5 mm disc bulge. Severe bilateral facet arthropathy with synovitis, and ligamentum flavum hypertrophy. Disc pathology and facet arthropathy cause severe central canal stenosis with near complete effacement of the spinal canal, and complete effacement of the thecal sac with high-grade crowding of the cauda equina. There is direct mass effect on the L5 nerve roots in the effaced lateral recesses. Severe neural foraminal stenosis is present bilaterally with mass effect on the L4 nerve roots from facet arthropathy and disc bulge. L5-S1: 3 mm disc bulge with superimposed neural foraminal disc protrusions. Right neural foraminal disc protrusion measures 5 mm. There is 3 mm left neural foraminal disc protrusion. Partial effacement of the lateral recesses results from severe facet arthropathy and disc pathology, resulting in impression on the S1 nerve roots, left greater than right, image 8 of series 1001. Severe proximal neural foraminal stenosis is present bilaterally with contact of the L5 nerve roots from disc protrusions. Soft tissues: Soft tissues in the prevertebral space are preserved. Kidneys and ureters: Distension of the right renal lower pole collecting system and renal pelvis is noted but without hydroureter. This appearance is unchanged since the 2011 CT exam. Other findings: Atherosclerotic disease involves the nonaneurysmal abdominal aorta. Procedure Note Franci Aldana MD - 10/21/2021 PROCEDURE INFORMATION: Exam: MR Lumbar Spine Without Contrast Exam date and time: 10/20/2021 7:12 PM Age: 76 years old Clinical indication: Low back pain, unspecified; Other: Lumbarradiculopathy, no red flags, no prior management TECHNIQUE: Imaging protocol: Magnetic resonance imaging of the lumbar spine without contrast. COMPARISON: CT ABDOMEN, PELVIS 08/09/2010 1:18 PM FINDINGS: Bones/joints: A subacute Schmorl's node is present at the inferiorendplate of L4 with only mild depression of the endplate. There is a smaller, minor subacute Schmorl's node at the superior endplate of L5. Chronic Schmorl'snodes are also present at L1 and L2. Hemangiomata are present in the T12, L1,and L5 vertebral bodies. The lumbar lordosis is exaggerated. 3 mm retrolisthesis is present atL5-S1. There is 5 mm anterolisthesis of L4-L5. 6 mm retrolisthesis is present atL2-L3 and there is 4 mm retrolisthesis of L1-L2. Marked narrowing of the interspinous intervals is demonstrated in thelower lumbar motion segments and there is adventitial bursitis between the L4and L5 spinous processes, a finding which can be associated with Baastrup'sdisease. Spinal cord: The lower thoracic spinal cord and conus medullarisdemonstrate preservation of signal intensity on all pulse sequences. Cauda equina are normal in caliber and signal intensity. T11-T12: This level is not included on axial imaging but on sagittalimaging there is 4 mm disc bulge with tear of the annular margin at the leftcentral position, and a 6 mm probable disc sequestration just caudal to the disc margin, image 6 of series 201. T12-L1: Trace disc bulge. No central canal or neural foraminal stenosis.There is bilateral facet arthropathy and ligamentum flavum hypertrophy. L1-L2: L1 posterior inferior endplate osteophyte. 3 mm disc bulge. Minimal central canal stenosis from disc pathology and ligamentum flavumhypertrophy with facet arthropathy. Severe right and moderate proximal left neural foraminal stenosis. Facet arthropathy contacts the right L1 nerve root. L2-L3: 3 mm disc bulge and retrolisthesis with L2 endplate ridging resultsin moderate central canal stenosis. Facet arthropathy and ligamentum flavum hypertrophy contribute to canal stenosis. There is partial effacement ofthe lateral recesses, left greater than right, resulting in mass effect on theleft L3 nerve root from facet arthropathy and disc bulge. Disc bulge contactsthe right L3 nerve root. Moderate right and severe left neural foraminalstenosis is present. Facet arthropathy causes direct impression on the left [id number] root. L3-L4: 2 mm disc bulge. Moderate central canal stenosis from disc bulgeand severe facet arthropathy with ligamentum flavum hypertrophy. Partialeffacement of the lateral recesses, left greater than right. Facet arthropathy anddisc bulge cause impression on the left L4 nerve root in the lateral recess.Severe left and moderate right neural foraminal stenosis is present with facet arthropathy contacting the L3 nerve roots. L4-L5: 5 mm disc bulge. Severe bilateral facet arthropathy with synovitis,and ligamentum flavum hypertrophy. Disc pathology and facet arthropathy cause severe central canal stenosis with near complete effacement of the spinal canal, and complete effacement of the thecal sac with high-grade crowdingof the cauda equina. There is direct mass effect on the L5 nerve roots in the effaced lateral recesses. Severe neural foraminal stenosis is present bilaterally with mass effect on the L4 nerve roots from facet arthropathyand disc bulge. L5-S1: 3 mm disc bulge with superimposed neural foraminal discprotrusions. Right neural foraminal disc protrusion measures 5 mm. There is 3 mm leftneural foraminal disc protrusion. Partial effacement of the lateral recessesresults from severe facet arthropathy and disc pathology, resulting in impressionon the S1 nerve roots, left greater than right, image 8 of series 1001.Severe proximal neural foraminal stenosis is present bilaterally with contact ofthe L5 nerve roots from disc protrusions. Soft tissues: Soft tissues in the prevertebral space are preserved. Kidneys and ureters: Distension of the right renal lower pole collectingsystem and renal pelvis is noted but without hydroureter. This appearance isunchanged since the 2011 CT exam. Other findings: Atherosclerotic disease involves the nonaneurysmalabdominal aorta. IMPRESSION 1. Severe central canal stenosis at L4-L5 with near complete effacement ofthe spinal canal from large disc bulge and severe bilateral facet arthropathy. Complete effacement of the thecal sac with high-grade crowding of thecauda equina and direct mass effect on the L5 nerve roots in the lateralrecesses. Severe bilateral neural foraminal stenosis with mass effect on the Q4aywdc roots. 2. Moderate central canal stenosis at L3-L4. Disc bulge and severe facet arthropathy cause partial effacement of the lateral recesses withimpression on the left L4 nerve root. Severe left and moderate right neural foraminal stenosis. Facet arthropathy contacts the L3 nerve roots. 3. Moderate central canal stenosis at L2-L3 from disc bulge andretrolisthesis. Partial effacement of the lateral recesses with mass effect on the left L3 nerve root from facet arthropathy and disc bulge. Severe left neuralforaminal stenosis with direct impression on the left L2 nerve root from facet arthropathy. 4. Severe right neural foraminal stenosis at L1-L2 with facet arthropathy contacting the right L1 nerve root. 5. Disc bulge and neural foraminal disc protrusions at L5-S1. Partial effacement of the lateral recesses with impression on the S1 nerve roots,left greater than right. Severe proximal bilateral neural foraminal stenosiswith contact of the L5 nerve roots. 6. Possible disc sequestration at T11-T12 in the left central position, incompletely evaluated seen only on sagittal imaging. 7. Adventitial bursitis at the L4-L5 spinous process interval, which canbe associated with Baastrup's disease. THIS DOCUMENT HAS BEEN ELECTRONICALLY SIGNED BY FRANCI ALDANA MD FOR ANY QUESTIONS OR CONCERNS REGARDING THIS REPORT PLEASE CALL [facility] [phone] Barbara Conway NP IMG MRI ORDERABLES Final Resu lt documented in this encounter Visit Diagnoses Diagnosis Low back pain Lumbago Left rotator cuff tear arthropathy documented in this encounter Care Teams Supervisor Particleboard Relationship Specialty Start Date End Date Barbara Conway, WOOD GRAINER [address] [place] [address] PCP - General 08/19/13 documented as of this encounter
--- OUTSIDE RECORDS SUMMARY | 2024-03-18 22:10 | XMS_ITS | Encounter Summary ---
Author Organization [facility] Address [address] [place] [address] Care Team Providers Care Basket Patcher Name Role Phone Barbara Conway ELEVATOR MECHANIC Primary Care Provider [phone] Encounter Details Date Type Department Care Team (Latest Contact Info) Description 12/03/2019 9:38 EDT - 12/03/2019 23:59 EDT Hospital Encounter [facility] [address] [place], [place] [phone] Discharge Disposition: Home or Self Care Social [...] days at first sign of UTI 4 docusate sodium (COLACE) 100 mg capsule Take 2 Caps by mouth 2 times daily as needed for Constipation. 10/30/2019 1 methocarbamoL (ROBAXIN) 750 mg tablet Take 1 Tab by mouth 4 times daily. 50 Tab 10/30/2019 1 ondansetron (ZOFRAN) 4 mg tablet Take 1 Tab by mouth every 8 hours as needed for Nausea. 12 Tab 11/01/2019 1 polyethylene glycol 3350 (MIRALAX) 17 gram packet Take 17 g by mouth daily as needed (constipation). 10/30/2019 1 scopolamine (TRANSDERM-SCOP) 1 mg over [address] 1 Patch onto the skin every 72 hours. 6 Patch 10/30/2019 1 traMADoL (ULTRAM) 50 mg tablet Take 1-2 Tabs by mouth every 6 hours. Daily Max: 400 mg 50 Tab 10/30/2019 1 documented as of this encounter Discharge Disposition Disposition Code Departure Means Destination Home or Self Care documented in this encounter Plan of Treatment Upcoming Encounters Date Type Department Care Team (Latest Contact Info) Description 03/27/2024 14:25 EST Hospital Encounter [facility] OR [address] [place] [address] [phone] Vishal Castillo MD [address] [place] [phone] 03/27/2024 14:25 EST - 03/27/2024 17:55 EST Surgery [facility] OR [address] [place] [address] [phone] Vishal Castillo MD [address] [place] [phone] Left Reverse Total Shoulder Arthroplasty [16656 (CPT??)] 04/08/2024 15:30 EST Post-op Visit [facility] Hand & Upper Extremity Program - [address] [place] [address] Vishal Castillo MD [address] [place] [phone] Scheduled Procedures Name Priority Associated Diagnoses Date/Ti me ARTHROPLASTY, SHOULDER, TOTAL Left rotator cuff tear arthropathy 03/27/2024 14:25 EST documented as of this encounter Procedures Procedure Name Priority Date/Time Associated Diagnosis Comments XR KNEE RIGHT 3 VIEWS Routine 12/03/2019 9:50 EDT Status post total right knee replacement documented in this encounter Results * XR KNEE LEFT 1-2 VIEWS (12/03/2019 9:50 EDT) Anatomical Region Laterality Modality Lower Extremities Left Computed Radio graphy 12/03/2019 10:5 0 EDT Impressions 12/03/2019 10:50 EDT FINDINGS / IMPRESSION: Right knee: 3 views of the right knee again show a total knee arthroplasty which appears intact and well aligned. The surgical clarita have been removed. There is residual postsurgical soft tissue swelling and joint effusion. Left knee: Frontal view of the left knee shows a total knee arthroplasty which is intact and well aligned on this view. The lack of a lateral view precludes assessment for joint effusion. Narrative 12/03/2019 10:50 EDT EXAM/TECHNIQUE: XR KNEE LEFT 1-2 VIEWS, XR KNEE RIGHT 3 VIEWS ??12/03/2019 9:40 AM HISTORY: ?? Right TKA, left for comparison COMPARISON: Right knee radiographs 10/28/2019. Procedure Note Arturo Fakl, DO - 12/03/2019 EXAM/TECHNIQUE: XR KNEE LEFT 1-2 VIEWS, XR KNEE RIGHT 3 VIEWS 12/03/2019 9:40 AM HISTORY: Right TKA, left for comparison COMPARISON: Right knee radiographs 10/28/2019. IMPRESSION FINDINGS / IMPRESSION: Right knee: 3 views of the right knee again show a total knee arthroplastywhich appears intact and well aligned. The surgical clarita have beenremoved. There is residual postsurgical soft tissue swelling and jointeffusion. Left knee: Frontal view of the left knee shows a total knee arthroplastywhich is intact and well aligned on this view. The lack of a lateral viewprecludes assessment for joint effusion. us Russel Otto MD IMG DIAGNOSTIC IMAGING OR DERABLES Final Result * XR KNEE RIGHT 3 VIEWS (12/03/2019 9:50 EDT) Anatomical Region Laterality Modality Lower Extremities Right Computed Radio graphy 12/03/2019 10:5 0 EDT Impressions 12/03/2019 10:50 EDT FINDINGS / IMPRESSION: Right knee: 3 views of the right knee again show a total knee arthroplasty which appears intact and well aligned. The surgical clarita have been removed. There is residual postsurgical soft tissue swelling and joint effusion. Left knee: Frontal view of the left knee shows a total knee arthroplasty which is intact and well aligned on this view. The lack of a lateral view precludes assessment for joint effusion. Narrative 12/03/2019 10:50 EDT EXAM/TECHNIQUE: XR KNEE LEFT 1-2 VIEWS, XR KNEE RIGHT 3 VIEWS ??12/03/2019 9:40 AM HISTORY: ?? Right TKA, left for comparison COMPARISON: Right knee radiographs 10/28/2019. Procedure Note Arturo Falk, DO - 12/03/2019 EXAM/TECHNIQUE: XR KNEE LEFT 1-2 VIEWS, XR KNEE RIGHT 3 VIEWS 12/03/2019 9:40 AM HISTORY: Right TKA, left for comparison COMPARISON: Right knee radiographs 10/28/2019. IMPRESSION FINDINGS / IMPRESSION: Right knee: 3 views of the right knee again show a total knee arthroplastywhich appears intact and well aligned. The surgical clarita have beenremoved. There is residual postsurgical soft tissue swelling and jointeffusion. Left knee: Frontal view of the left knee shows a total knee arthroplastywhich is intact and well aligned on this view. The lack of a lateral viewprecludes assessment for joint effusion. Russel Otto MD IMG DIAGNOSTIC IMAGING OR DERABLES Final Result documented in this encounter Visit Diagnoses Not on filedocumented in this encounter Care Teams Basket Patcher Relationship Specialty Start Date End Date Barbara Conway, [place] [address] [place] [address] PCP - General 08/19/13 documented as of this encounter
--- OUTSIDE RECORDS SUMMARY | 2024-03-18 22:10 | XMS_ITS | Encounter Summary ---
Author Organization [facility] Address [address] [place] [address] Care Team Providers Care National Account Executive Name Role Phone ZoraidaBarbara Myla LIGHT RAIL VEHICLE OPERATOR Primary Care Provider [phone] Reason for Visit * Reason Onset Date Comments Post-op Problem 11/04/2019 Encounter Details Date Type Department Care Team (Late st Contact Info) Description 11/04/2019 Telephone [facility] Orthopedic Surgery - [facility] [address] [place] [address] Russel Otto MD [address] [place] [phone] Post-op Problem Social History Tobacco Use Types Packs/Day Years Used Date Smoking Tobacco: Never Smokeless Tobacco: Never Alcohol Use Standard Drinks/Week Comments Not Currently 0 (1 standard drink = 0.6 oz pur e alcohol) PHQ-2 Answer Date Recorded PHQ-2 SUBTOTAL 0 10/28/2019 Comments No Sex and Gender Information Value Date Recorded Sex Assigned at Female 03/08/2024 18:30 EST Legal Sex Female 18:30 EST Gender Identity Female 05/28/2019 8:56 EST Sexual Orientation Not on file COVID-19 Exposure Response Date Recorded In the last month, have you been in contact with someone who was confirmed or suspected to have Coronavirus / COVID-19? No / Unsure 10/28/2019 9:48 EDT documented as of this encounter Functional Status [...] encounter Miscellaneous Notes * Telephone Encounter - Liana Self RN - 11/04/2019 0913 EDT Called patient. Patient states she still has not had a bowel movement. Her stomach is soft but feels crampy.She states that I feel it right there, but I cannot pass it. She reports taking Colace and Milk of Magnesia, as well as increasing her fluids. Recommended patient order picker some over the counter Miralax and/or Senna. Educated patient on how these medications work, frequency, and dosage. Patient verbalized understanding and there were no barriers to learning. Patient states she will send her daughter to pick these up today. LIANA SELF RN ?? * Telephone Encounter - Doretha Brar - 11/04/2019 0854 EDT Aretha phoned had surgery with Dr Otto on 10-28-2019, has not had a bowel movement yet, is uncomfortable,some cramping,has tried colace and milk of magnesia. Aretha can be reached at [phone] documented in this encounter Plan of Treatment Upcoming Encounters Date Type Department Care Team (Latest Contact Info) Description 03/27/2024 14:25 EST Hospital Encounter [facility] OR [address] [place] [phone] Vishal Castillo MD [address] [place] [phone] 03/27/2024 14:25 EST - 03/27/2024 17:55 EST Surgery [facility] OR [address] [place] [phone] Vishal Castillo MD [address] [place] [phone] Left Reverse Total Shoulder Arthroplasty [65214 (CPT??)] 04/08/2024 15:30 EST Post-op Visit [facility] Hand & Upper Extremity Program - [address] [place] [address] Vishal Castillo MD [address] [place] [phone] Scheduled Procedures Name Priority Associated Diagnoses Date/Ti me ARTHROPLASTY, SHOULDER, TOTAL Left rotator cuff tear arthropathy 03/27/2024 14:25 EST documented as of this encounter Visit Diagnoses Not on filedocumented in this encounter Care Teams National Account Executive Relationship Specialty Start Date End Date Barbara Conway, [address] [address] [place] [address] PCP - General 08/19/13 documented as of this encounter
--- OUTSIDE RECORDS SUMMARY | 2024-03-18 22:10 | XMS_ITS | Encounter Summary ---
Author Organization [facility] Address [address] [place] [address] Care Team Providers Care Bullet Assembly Press Setter Operator Name Role Phone Barbara Conway Myla HOME INSPECTOR Primary Care Provider [phone] Encounter Details Date Type Department Care Team (Latest Contact Info) Description 09/08/2021 Travel Social History Tobacco Use Types Packs/Day Years [...] Exposure Response Date Recorded In the last 10 days, have yo u been in contact with someone who was confirmed or suspected to have Coronavirus/COVID-19? Yes 09/08/2021 7:55 EDT documented as of this encounter Functional [...] Mackenzie Pappas RN documented in this encounter Plan of Treatment Upcoming Encounters Date Type Department Care Team (Latest Contact Info) Description 03/27/2024 14:25 EST Hospital Encounter [facility] OR [address] [place] [address] [phone] Vishal Castillo MD [address] [place] [phone] 03/27/2024 14:25 EST - 03/27/2024 17:55 EST Surgery [facility] OR [address] [place] [address] [phone] Vishal Castillo MD [address] [place] [phone] Left Reverse Total Shoulder Arthroplasty [81480 (CPT??)] 04/08/2024 15:30 EST Post-op Visit [facility] Hand & Upper Extremity Program - [address] [address] Vishal Castillo MD [address] [place] [phone] Scheduled Procedures Name Priority Associated Diagnoses Date/Ti me ARTHROPLASTY, SHOULDER, TOTAL Left rotator cuff tear arthropathy 03/27/2024 14:25 EST documented as of this encounter Visit Diagnoses Not on filedocumented in this encounter Care Teams Bullet Assembly Press Setter Operator Relationship Specialty Start Date End Date Barbara Conway, HOME INSPECTOR [address] [place] [address] PCP - General 08/19/13 documented as of this encounter
--- OUTSIDE RECORDS SUMMARY | 2024-03-18 22:10 | XMS_ITS | Encounter Summary ---
Author Organization [facility] Address [address] [place] [address] Care Team Providers Care Wringer Machine Operator Name Role Phone Barbara Conway ANIMAL HERDER Primary Care Provider [phone] Reason for Visit * Reason Comments Pain * Consult, Test and Treat (Routine) - Receiving Office to Obtain Authorization Specialty Diagnoses / Procedures Referred By Maryuri sarmiento Referred To Contact Diagnoses Chronic left shoulder pain Self, Referral [facility] - [address] [place] [phone] Phone: tel: fax: Referral ID Status Reason Start Date Expiration Date Visits Requested Visits Authorized [id number] Receiving Office to Obtain Authorization 1 1 Encounter Details Date Type Department Care Team (Late st Contact Info) Description 05/23/2022 9:40 EST Office Visit [facility] - [address] [place] [id number] Ashish Dejesus MD [address] [place] [phone] Chronic left shoulder pain (Primary Dx); Biceps tendonitis on left; Shoulder arthritis Social History Tobacco Use Types Packs/Day Years [...] - Inhaled Oxygen Concentration - - Weight 81.6 kg (180 lb) 05/23/2022 09 EST Height 162.6 cm (5' 4) 05/23/2022928 EST Body Mass Index 30.9 05/23/2022 09 EST documented in this encounter Functional Status [...] Progress Notes * Ashish Dejesus MD - 05/23/2022 0940 EST Chief complaint: Left shoulder pain Subjective: This is a 77-year-old right-handed white female from [facility] who is seen me for the first time today for evaluation of left shoulder pain which began after she fell in [facility] 2020 landing on her left shoulder. She had been seen by Tiffanie CARREON on 12/31/2019 who felt thisrepresented some trauma to the rotator cuff but no injection was given at that time. The patient states she is undergone bilateral TKA surgeries by Dr. Otto with the right and 10/28/2019 and the [id number] and has done well with both of those. She has chronic low back pain secondary lumbosacral stenosis, hypertension, diabetes and GERD. She feels that she is here at this shoulder when she was walking her dog and tripped and fell and she has had some discomfort along the anterior aspect of the shoulder with no real significant stiffness. She is able to sleep on the shoulder and then when she wants with no significant pain and describes no limitation of motion weakness or radiculopathy. Objective: General shows a friendly female no acute distress and she is oriented x3 and vital signsare stable with a BMI of 30.9 Neck exam grossly normal. Spine exam straight spine with negative straight leg raising bilaterally. Pelvis examination: Level pelvis with active range of motion of both hips and without discomfort inall directions. Knee examination both knees grossly look normal without any evidence of focal pain Shoulder examination: The left shoulder shows the patient have no atrophy or swelling but there is discomfort about the anterior bicipital groove region and she has full active forward flexion abduction extension internal Tatian external Tatian with only minimal discomfort seen on the extremes of internal rotation anteriorly. No subacromial pain is noted no pain at the AC joint is noted and I cannot detect any significant snapping or popping of the shoulder itself. There is negative Neer sign, negative belly press sign, negative liftoff. Right shoulder shows full range of motion without pain Skin exam grossly normal Neurovascular examination grossly normal upper and lower extremity sensory examination throughout the lower extremity and upper extremity dermatomes without strength of weakness and no evidence of any other changes. Pulses were not tested. X-rays: Left shoulder series of 4 views were taken and independently visualized by me today showingthe patient to have an old fracture line at the humeral head and significant glenohumeral arthritiswith exostoses narrowing and some possible superior migration of the head as well Impression: #1 left shoulder pain consistent with glenohumeral arthritis with old humeral head fracture and presence of probable rotator cuff arthropathy along supraspinatus tendon and bicipital groove but not too painful at present #2 status post right TKA Dr. Otto 10/28/2019 #3 status post left TKA Dr. Praod in 2017 #4 chronic low back pain with lumbosacral stenosis #5 hypertension; diabetes; GERD Plan: I spent a total of 30 minutes on this date of encounter with the patient reviewing document and coordinating care discussing findings with this patient. Because she is doing well without much pain will not utilize much in the way of anti-inflammatory medication because she does not want to try that because of her diabetes but she will try some heat stretching and exercise I have shown her. She does know that further imaging studies could be done or even injection therapy can be done she wants to she will see how she does with Meanwhile documented in this encounter Plan of Treatment Upcoming Encounters Date Type Department Care Team (Latest Contact Info) Description 03/27/2024 14:25 EST Hospital Encounter [facility] OR [address] [place] [address] [phone] Vishal Castillo MD [address] [place] [phone] 03/27/2024 14:25 EST - 03/27/2024 17:55 EST Surgery [facility] OR [address] [place], [place] [phone] Vishal Castillo MD [address] [place] [phone] Left Reverse Total Shoulder Arthroplasty [[id number] (CPT??)] 04/08/2024 15:30 EST Post-op Visit [facility] Upper Extremity Program - [address] [place] [address] Vishal Castillo MD [address] [place] [phone] Scheduled Procedures Name Priority Associated Diagnoses [...] is diffuse osteopenia. Soft tissuesare grossly unremarkable us Ashish Dejesus MD IMG DIAGNOSTIC IMAGIN G ORDERABLES Final Result documented in this encounter Visit Diagnoses Diagnosis Chronic left shoulder pain- Primary Pain in joint, shoulder region Biceps tendonitis on left Bicipital tenosynovitis Shoulder arthritis Unspecified arthropathy, shoulder region Chronic left shoulder pain Pain in joint, shoulder region Left rotator cuff tear arthropathy documented in this encounter Historical Medications * This list may reflect changes made after this encounter. famotidine (PEPCID) 20 mg tablet Take 1 Tablet by mouth 2 times daily. added in this encounter Care Teams Wringer Machine Operator Relationship Specialty Start Date End Date Barbara Conway NP [address] [place] [address] PCP - General 08/19/13 documented as of this encounter
--- OUTSIDE RECORDS SUMMARY | 2024-03-18 22:10 | XMS_ITS | Encounter Summary ---
Author Organization [facility] Address [address] [place] [address] Care Team Providers Care Ecotherapist Name Role Phone ZoraidaBarbara Myla SURVEY RESEARCH ANALYST Primary Care Provider [phone] Reason for Visit * Reason Onset Date Comments Referral Request 10/22/2021 Encounter Details Date Type Department Care Team (Late st Contact Info) Description 10/22/2021 Telephone [facility] Neurosurgery - [facility] [address] [place], [place] [phone] Suzanne Dey NP [address] [facility], [address] [place] [address] Referral Request Social History Tobacco Use Types Packs/Day Years [...] encounter Miscellaneous Notes * Telephone Encounter - Suzanne Dey NP - 10/22/2021 0923 EDT TC to [facility], spoke with Michela in referrals. We received a referral for this patient today marked as urgent for urinary incontinence related to lumbar spinal stenosis. Informed Michela that the patient should be referred to the [facility] ED for urgent evaluation for this issue rather than the outpatient clinic. She stated that she would inform the provider right away. documented in this encounter Plan of Treatment Upcoming Encounters Date Type Department Care Team (Latest Contact Info) Description 03/27/2024 14:25 EST Hospital Encounter [facility] [place] OR [address] [place] [address] Vishal Castillo MD [address] [place] [phone] 03/27/2024 14:25 EST - 03/27/2024 17:55 EST Surgery [facility] OR [address] [place], [place] [address] Vishal Castillo MD [address] [place] [phone] Left Reverse Total Shoulder Arthroplasty [32410 (CPT??)] 04/08/2024 15:30 EST Post-op Visit [facility] Hand & Upper Extremity Program - [address] [place] [address] Vishal Castillo MD [address] [place] [phone] Scheduled Procedures Name Priority Associated Diagnoses Date/Ti me ARTHROPLASTY, SHOULDER, TOTAL Left rotator cuff tear arthropathy 03/27/2024 14:25 EST documented as of this encounter Visit Diagnoses Not on filedocumented in this encounter Care Teams Ecotherapist Relationship Specialty Start Date End Date Barbara Conway NP [address] [place] [address] PCP - General 08/19/13 documented as of this encounter
--- OUTSIDE RECORDS SUMMARY | 2024-03-18 22:10 | XMS_ITS | Encounter Summary ---
Author Organization [facility] Address [address] [place] [address] Care Team Providers Care Dater Assembler Name Role Phone JuanBarbara whitney Myla CURRICULUM CONSULTANT Primary Care Provider [phone] Encounter Details Date Type Department Care Team (Late st Contact Info) Description 10/23/2020 Lab Requisition [facility] Pathology & Laboratory Medicine - [facility] [address] [place] [address] Love Torrez MD [address] [place] [address] Neoplasm of uncertain behavior of skin Social History Tobacco Use Types Packs/Day Years [...] have Coronavirus / COVID-19? No / Unsure 10/08/2020 14:14 EDT documented as of this encounter Functional [...] Info) Description 03/27/2024 14:25 EST Hospital Encounter [facility] OR [address] [place] [address] [phone] Vishal Castillo MD [address] [place] [phone] 03/27/2024 14:25 EST - 03/27/2024 17:55 EST Surgery [facility] OR [address] [place] [address] [phone] Vishal Castillo MD [address] [place] [phone] Left Reverse Total Shoulder Arthroplasty [85194 (CPT??)] 04/08/2024 15:30 EST Post-op Visit [facility] Hand & Upper Extremity Program - [address] [place] [address] Vishal Castillo MD [address] [place] [phone] Scheduled Procedures Name Priority Associated Diagnoses Date/Ti me ARTHROPLASTY, SHOULDER, TOTAL Left rotator cuff tear arthropathy 03/27/2024 14:25 EST documented as of this encounter Procedures Procedure Name Priority Date/Time Associated Diagnosis Comments SURGICAL PATHOLOGY Today 10/22/2020 13 :46 EDT Neoplasm of uncertain behavior of skin documented in this encounter Results * SURGICAL PATHOLOGY (10/22/2020 13:46 EDT) Final Diagnosis Attention patients The following pathology results have been interpreted by your pathologist and may be available to you before your health provider has had the opportunity to review them. Please allow time for your provider to receive these results and explore management options, if applicable. A. SKIN OF CHEEK, RIGHT, SHAVE BIOPSY: - Melanocytic nevus, intradermal type. - Lesion extends to biopsy base. 10/27/2020 14:36 [facility] Attestation By the signature below, the attending physician certifies that they have 1) personally conducted a gross and/or microscopic examination of the described specimen(s), and/or personally interpreted the results of laboratory testing of the described specimen(s), and 2) personally rendered or confirmed the above diagnosis. 10/27/2020 14:36 [facility] at 1436 Clinical History Nevus; R/O NMSC-right cheek; clinical diagnosis code: D48.5 10/27/2020 14:36 [facility] Gross Description A. Received in formalin labelled with proper patient identification (initials G, D) and R cheek is a shave biopsy of a roughened irregular papule (0.4 x 0.3 x 0.1 cm). The specimen is received with a marking ink covering the entirety of the cutaneous surface. The margin is inked blue. Submitted intact in A1. Vince Ardon 10/23/2020 11:00 10/27/2020 14:36 EDT [facility] Performing Lab [facility] 10/27/2020 14:36 EDT [facility] Scanned Images 10/27/2020 14:36 EDT [facility] Tissue TISSUE SPECIMEN FROM SKIN / Unknown 10/22/2020 13:46 EDT 10/23/2020 10:22 EDT us Love Torrez MD PATHOLOGY ORDERABLES Final Re sult [facility] [address] [place] [address] documented in this encounter Visit Diagnoses Diagnosis Neoplasm of uncertain behavior of skin Left rotator cuff tear arthropathy documented in this encounter Care Teams Dater Assembler Relationship Specialty Start Date End Date Barbara Conway NP [address] [place] [phone] PCP - General 08/19/13 documented as of this encounter
--- OUTSIDE RECORDS SUMMARY | 2024-03-18 22:10 | XMS_ITS | Encounter Summary ---
Author Organization [facility] Address [address] [place] [address] Care Team Providers Care Human Relations Professor Name Role Phone ZoraidaBarbara Myla ORGANIC SEARCH LEAD Primary Care Provider [phone] Reason for Visit * Reason Onset Date Comments Returning Call 10/22/2021 Encounter Details Date Type Department Care Team (Late st Contact Info) Description 10/22/2021 Telephone [facility] Neurosurgery - [facility] [address] [place], [place] [phone] Suzanne Dey NP [address] [facility], [address] [place] [address] Returning Call Social History Tobacco Use Types Packs/Day Years [...] was confirmed or suspected to have Coronavirus/COVID-19? No / Unsure 10/22/2021 11:38 EDT documented as of this encounter Functional [...] encounter Miscellaneous Notes * Telephone Encounter - Elke Hale RN - 10/22/2021 0950 EDT Outgoing call to Nurse Matthew at [facility] to discuss reasoning for Aretha to go to the ED. Advised that since she is having urinary incontinence related to her lumbar spinal stenosis that this is a red flag sign for cauda equina and the patient needs to be immediately evaluated at [facility] ED. Nurse Matthew verbalized understanding and is going to immediately call Aretha to relay that she needs to go to [facility] ED. Paging [facility] to make them aware. María Michel MD aware. Outgoing call to ED triage to make them aware. ED aware. * Telephone Encounter - Gisel Maldonado - 10/22/2021 0945 EDT Nurse Tiff was returning call to see what is going on with Patient before she refers her to the ED.Please contact to clarify. documented in this encounter Plan of Treatment Upcoming Encounters Date Type Department Care Team (Latest Contact Info) Description 03/27/2024 14:25 EST Hospital Encounter [facility] OR [address] [place] [address] [phone] Vishal Castillo MD [address] [place] [phone] 03/27/2024 14:25 EST - 03/27/2024 17:55 EST Surgery [facility] OR [address] [place] [address] [phone] Vishal Castillo MD [address] [place] [phone] Left Reverse Total Shoulder Arthroplasty [51475 (CPT??)] 04/08/2024 15:30 EST Post-op Visit [facility] Hand & Upper Extremity Program - [address] [phone] Vishal Castillo MD [address] [place] [phone] Scheduled Procedures Name Priority Associated Diagnoses Date/Ti me ARTHROPLASTY, SHOULDER, TOTAL Left rotator cuff tear arthropathy 03/27/2024 14:25 EST documented as of this encounter Visit Diagnoses Not on filedocumented in this encounter Care Teams Human Relations Professor Relationship Specialty Start Date End Date Brabara Conway NP [address] [place] [address] PCP - General 08/19/13 documented as of this encounter
--- OUTSIDE RECORDS SUMMARY | 2024-03-18 22:10 | XMS_ITS | Encounter Summary ---
Author Organization [facility] Address [address] [place] [address] Care Team Providers Care Metal And Plastic Heater Name Role Phone Barbara Conway DIRECTOR DIGITAL SALES Primary Care Provider [phone] Reason for Visit * Reason Comments Pain * Referral (Routine) - New Request Specialty Diagnoses / Procedures Referred By Maryuri sarmiento Referred To Contact Orthopedic Surgery Diagnoses Low back pain, unspecified Spinal stenosis, site unspecified Sciatica, right side Barbara Conway, DIRECTOR DIGITAL SALES [address] [place] [address] Phone: tel: fax: [facility] Spine Program - [place] [address] [place] [address] Phone: tel: fax: Referral ID Status Reason Start Date Expiration Date V isits Requested Visits Authorized [id number] New Request 1 1 Encounter Details Date Type Department Care Team (Late st Contact Info) Description 11/16/2021 14:15 EDT Office Visit [facility] [address] Duglas Mccullough PA-C [address] [place] [address] [place] [address] Chronic bilateral low back pain, unspecified whether sciatica present (Primary Dx); Spinal stenosis of lumbar region [...] 11:38 EDT documented as of this encounter Last Filed Vital Signs Vital Sign Reading Time Taken Comments Blood Pressure - - Pulse - - Temperature - - Respiratory Rate - - Oxygen Saturation - - Inhaled Oxygen Concentration - - Weight 81.6 kg (180 lb) 11/16/2021 1351 EDT Height 162.6 cm (5' 4) 11/16/2021 1351 EDT Body Mass Index 30.9 11/16/2021 1351 EDT documented in this encounter Functional Status [...] Progress Notes * Duglas Mccullough PA-C - 11/16/2021 1415 EDT Aretha Garcia is being seen as a consultation from Dr. Conway. Chief Complaint Patient presents with ??? Lower Back - Pain The primary encounter diagnosis was Chronic bilateral low back pain, unspecified whether sciatica present. 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 HPI history obtained from the patient and [...] is not seen a physical therapist received healthcare specialist or injections she is not followed up [...] did not have cauda equina syndrome. HPI Patient Active Problem List Diagnosis ??? History [...] replacement ??? PONV (postoperative nausea and vomiting) Past Medical History: Diagnosis Date ??? Anesthesia complication severe N/V. Had local for other knee and it worked great ??? Anserine bursitis Right anserine tendinitis/bursitis ??? Arrhythmia 10/24/19 EKG NSR with 1st degree AV block ??? Back pain ??? Bilateral bunions ??? Colon cancer (HCC-CMS) ([facility]) cancerous polyp removed Apr 2005 ??? Colon polyp ??? Complication of anesthesia nausea ??? Diabetes mellitus (HCC) 10/18/19 A1C 6.5 . Fs daily 120 [...] & vomiting ??? Obesity ??? Rectal cancer (HCC-CMS) ([facility]) stage 1 colo rectal cancer Past Surgical History: Procedure Laterality Date ??? COLON SURGERY colon polyp removed ??? COLONOSCOPY ??? JOINT REPLACEMENT left knee ??? TONSILLECTOMY ??? TUBAL LIGATION Social History Tobacco Use ??? Smoking status: Never Smoker ??? Smokeless tobacco: Never Used Substance Use Topics ??? Alcohol use: Not Currently Family History Problem Relation Age of Onset ??? Diabetes Mother ??? Cancer Father lung cancer ??? Breast Cancer Neg Hx ??? Colon Cancer Neg Hx ??? Colon Polyps Neg Hx ??? Endometrial Cancer Neg Hx ??? Ovarian Cancer Neg Hx ??? Esophageal Cancer Neg Hx ??? Pancreatic Cancer Neg Hx ??? Rectal Cancer Neg Hx ??? Stomach Cancer Neg Hx Current Outpatient Medications Medication Sig Dispense Refill [...] UTI (Patient not taking: Reported on 09/08/2021) ??? cholecalciferol, Vitamin D3, 1,000 unit tablet Take 1,000 Units by mouth daily. ??? gabapentin (NEURONTIN) 100 mg capsule Take 200 mg by mouth as needed for Pain. Once daily in afternoon PRN ??? gabapentin (NEURONTIN) 100 mg capsule Take 100 mg by mouth 2 times daily. 3 caps in morning andevening. ??? lisinopril (PRINIVIL, ZESTRIL) 40 mg tablet Take 40 mg by mouth daily. ??? metformin (GLUCOPHAGE) 1,000 mg tablet Take 1,000 mg by mouth 2 times daily with meals. ??? metoprolol (LOPRESSOR) 50 mg tablet Take 50 mg by mouth 2 times daily. ??? omeprazole (PRILOSEC) 40 mg capsule Take 40 mg by mouth daily. No current facility-administered medications for this visit. Allergies Allergen Reactions ??? Scopolamine halluciation ??? Robaxin [Methocarbamol] halluciation ??? Sulfa (Sulfonamide Antibiotics) Rash ??? Tramadol halluciation ??? Zocor [Simvastatin] Other (See Comments) severe leg cramps Review of Systems Constitutional: Negative for activity change. Musculoskeletal: Positive for back pain and gait problem. Neurological: Negative for weakness and numbness. Physical Exam Constitutional: General: She is not in acute distress. Appearance: She is well-developed and well-nourished. Eyes: Extraocular Movements: EOM normal. Cardiovascular: Rate and Rhythm: Normal rate. Pulmonary: Effort: Pulmonary effort is normal. Skin: General: Skin is warm and dry. Neurological: Mental Status: She is alert and oriented to person, place, and time. Psychiatric: Mood and Affect: Mood and affect normal. Back Exam Comments: Patient ambulates with a cane no signs of foot drop no palpable tenderness range of motion is full Romberg's negative dynamic Romberg is negative lower extremity strength is 5 out of 5 softtouch is intact reflexes at the patella 1 otherwise 0 dorsalis pedis is 2 straight leg raise is negative Neurologic Exam Mental Status Oriented to person, place, and time. Cranial Nerves CN III, IV, Extraocular motions are normal. The prior workup of the patient includes: Lumbar MRI dated October 20, 2021 reveals severe central canal stenosis at L4-5 with no cerebrospinal fluid present in the canal. Very similar findings to MRI dated [address] abdomen and pelvis dated 2010 Assessment Back pain musculoskeletal related to deconditioning. Radiation into the buttock possibly result of spinal stenosis versus referred pain from the lumbar spine. Patient's physical exam is excellent today she presents with no symptoms of neurogenic claudication. While she has had a history of incontinence and urinary urgency I think this is unrelated to the lumbar spine and would recommend a gynecology consult. Also suggest physical therapy with core stabilization gait training and balance training with a home exercise program. Other Orders Placed This Visit Procedures ??? Amb Consult/Follow Up Physical Therapy Outside of Network Plan: PT prescription provided Activity as tolerated without imitation Pain management per primary doctor Suggest follow-up with gynecology and evaluation of her urgency and incontinence If patient should have an increase in her low back associated with increased lower extremity symptoms would suggest a lumbar epidural. If back pain only could consider medial branch blocks and radiofrequency ablation Dr. Gonzales was available for consultation but was not consulted documented in this encounter Plan of Treatment Upcoming Encounters Date Type Department Care Team (Latest Contact Info) Description 03/27/2024 14:25 EST Hospital Encounter [facility] [place] [address] [place] [id number] Vishal Castillo MD [address] [place] [phone] 03/27/2024 14:25 EST - 03/27/2024 17:55 EST Surgery [facility] [address] [place], [place] [id number] Vishal Castillo MD [address] [place] [phone] Left Reverse Total Shoulder Arthroplasty [96944 (CPT??)] 04/08/2024 15:30 EST Post-op Visit [facility] Hand & Upper Extremity Program - [address] [place] [address] Vishal Castillo MD [address] [place] [phone] Scheduled Procedures Name Priority Associated Diagnoses Date/Ti me ARTHROPLASTY, SHOULDER, TOTAL Left rotator cuff tear arthropathy 03/27/2024 14:25 EST documented as of this encounter Visit Diagnoses Diagnosis Chronic bilateral low back pain, unspecified whether sciatica present- Primary Spinal stenosis of lumbar 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 Spinal stenosis, lumbar region, without neurogenic claudication Left rotator cuff tear arthropathy documented in this encounter Care Teams Metal And Plastic Heater Relationship Specialty Start Date End Date Barbara Conway NP [address] [place], [place] [id number] PCP - General 08/19/13 documented as of this encounter
--- OUTSIDE RECORDS SUMMARY | 2024-03-18 22:10 | XMS_ITS | Encounter Summary ---
Author Organization [facility] Address [address] [place] [address] Care Team Providers Care Quality Inspector Name Role Phone ZoraidaBarbara Myla COMPLETIONS MANAGER Primary Care Provider [phone] Reason for Visit * Reason Onset Date Comments Other 11/15/2019 Encounter Details Date Type Department Care Team (Late st Contact Info) Description 11/15/2019 Telephone [facility] Orthopedic Surgery - [facility] [address] [place] [address] Russel Otto MD [address] [place] [phone] Other Social History Tobacco Use Types Packs/Day [...] encounter Miscellaneous Notes * Telephone Encounter - Oksana Atkins RN - 11/15/2019 1428 EDT I spoke with the patient. She denies fever,chills, recent injury, redness or drainage from her incision. She also denies calf pain, tenderness or redness. She was educated in elevation and icing. Shedenies any pain in her right leg/knee or calf.The patient verbalized back understanding with no barriers met * Telephone Encounter - Naomi Mosqueda - 11/15/2019 1220 EDT tka on 10/27 and the physical therapist noted that right lower leg and foot are swollen. She is calling to let us know that and wondering if she is ok. Please call and let her know if this is normal. documented in this encounter Plan of Treatment Upcoming Encounters Date Type Department Care Team (Latest Contact Info) Description 03/27/2024 14:25 EST Hospital Encounter [facility] OR [address] [place] [id number] Vishal Castillo MD [address] [place] [phone] 03/27/2024 14:25 EST - 03/27/2024 17:55 EST Surgery [facility] OR [address] [place] [address] [id number] Vishal Castillo MD [address] [place] [phone] Left Reverse Total Shoulder Arthroplasty [74761 (CPT??)] 04/08/2024 15:30 EST Post-op Visit [facility] Hand & Upper Extremity Program - [address] [place] [address] Vishal Castillo MD [address] [place] [phone] Scheduled Procedures Name Priority Associated Diagnoses Date/Ti me ARTHROPLASTY, SHOULDER, TOTAL Left rotator cuff tear arthropathy 03/27/2024 14:25 EST documented as of this encounter Visit Diagnoses Not on filedocumented in this encounter Care Teams Quality Inspector Relationship Specialty Start Date End Date Barbara Conway NP [address] [place] [address] PCP - General 08/19/13 documented as of this encounter
--- OUTSIDE RECORDS SUMMARY | 2024-03-18 22:10 | XMS_ITS | Encounter Summary ---
Author Organization [facility] Address [address] [place] [address] Care Team Providers Care Bullet Maker Name Role Phone JuanBarbara whitney Myla [employer] LIEUTENANT Primary Care Provider [phone] Reason for Visit * Reason Onset Date Comments Altered Mental Status 11/02/2019 Encounter Details Date Type Department Care Team (Late st Contact Info) Description 11/02/2019 Telephone [facility] Sports Medicine Program - [facility] [place] [address] SeekerJose MD [address] [place], [place] [phone] Altered Mental Status Social History Tobacco Use Types Packs/Day Years [...] encounter Miscellaneous Notes * Telephone Encounter - Seeker, MD Jose - 11/02/2019 3730 EDT Orthopaedics Telephone Call: Aretha Garcia is a 74 y.o. female that underwent TKA on 10/[address] Otto. Daughter called this morning after patient reportedly having sundowning in the combination of taking tramadol and reports waxing and waning mental status. She states that she has been moving all her extremities and has no focal neurologic deficits. She states that she has been seeing cats that are not present, but she is very redirectable and when told her current location or reoriented she has so me mild improvement. She states that she has been taking robaxin, tylenol and tramadol and that herpain is a stable 5 out of 10. Her blood sugar 155. She is afebrile. She denies dysuria, cough, shortness of breath, chest pain. And wonders if it is okay to substitute the tramadol with a few doses of ibuprofen. Plan: I suggested that she does have a very low threshold to present to the ED, but it was reasonable to practice watchful waiting, cessation of narcotics with substituting a few doses of ibuprofen if needed (creatinine of 0.6), frequent reorientation, decreasing distraction, encouraging night wake cycle. Patient is not having concerning symptoms for UTI, CVA, meningitis, sepsis. Favor diagnosis of postoperative waxing and waning delirium in the context of narcotic use. All questions and concerns were answered. Jose Gilbert MD 11/02/19 3:45 Orthopeadic Surgery QI Initiative: Approximate time of call: 3:59 Caller: Daughter Service-Attending - [facility] - Dr. Otto Category - Other: Altered mental status Date of Surgery: 10/28/2019 Action - Directed to ED or Urgent Care if symptoms persisted despite intervention documented in this encounter Plan of Treatment Upcoming Encounters Date Type Department Care Team (Latest Contact Info) Description 03/27/2024 14:25 EST Hospital Encounter [facility] OR [address] [place] [phone] Vishal Castillo MD [address] [place] [phone] 03/27/2024 14:25 EST - 03/27/2024 17:55 EST Surgery [facility] OR [address] [place] [address] [phone] Vishal Castillo MD [address] [place] [phone] Left Reverse Total Shoulder Arthroplasty [19870 (CPT??)] 04/08/2024 15:30 EST Post-op Visit [facility] Hand & Upper Extremity Program - [facility] [place] [address] Vishal Castillo MD [address] [place] [phone] Scheduled Procedures Name Priority Associated Diagnoses Date/Ti me ARTHROPLASTY, SHOULDER, TOTAL Left rotator cuff tear arthropathy 03/27/2024 14:25 EST documented as of this encounter Visit Diagnoses Not on filedocumented in this encounter Care Teams Bullet Maker Relationship Specialty Start Date End Date Barbara Conway, [place] [address] [place] [address] PCP - General 08/19/13 documented as of this encounter
--- OUTSIDE RECORDS SUMMARY | 2024-03-18 22:10 | XMS_ITS | Encounter Summary ---
Author Organization [facility] Address [address] [place] [address] Care Team Providers Care Ed Physicians Name Role Phone ZoraidaBarbara Myla SHOP WELDER Primary Care Provider [phone] Reason for Visit * Reason Comments Follow-up Encounter Details Date Type Department Care Team (Late st Contact Info) Description 12/30/2020 11:30 EDT Office Visit [facility] Orthopedic Surgery - [facility] [address] [place] [address] Child, Suzy Weir PA-C [address] [place] [phone] Glenohumeral arthritis, left (Primary Dx); Infraspinatus tendon tear, left, subsequent encounter Social History Tobacco Use Types Packs/Day Years [...] this encounter Patient Instructions * Patient Instructions* Suzy Alexandra PA-C - 12/30/2020 11:30 EDT You have moderate to severe glenohumeral arthritis and suspected or likely complete tear of infraspinatus. Supraspinatus and subscapularis appear to be clinically intact, although may have partial thickness tears. I also suspect a healing humeral head/neck fracture that appeared subacute on your August 2020 xrays from your fall on [facility]. documented in this encounter Progress Notes * Suzy Alexandra PA-C - 12/30/2020 1130 EDT CC: Left shoulder follow up, DOI: 07/26/20 SUBJECTIVE: Aretha Garcia is a very pleasant RHD 75 y.o. female who is here today for follow up after I met this patient on 09/04/2020 for her left shoulder after she had fallen on Easter walking outside. She has been working with a friend who was a physical therapist. Since our last encounter she has been getting a lot of exercise including stretching and strengthening and exercises most days except Monday. She uses the bike in her building's gym for both upper and lower body. She states I can do more with it in comparison to our last encounter. In general, it is not so much of the pain as it is an ache. It does not wake her from sleep at night. She is able to do most of her usual activities rather well. She is here today for follow-up to discuss whether or not an injection or any further interventions are warranted. She has no new or unusual concerns today. She is no longer taking Motrin but does continue to take Tylenol as needed for pain. The past medical, family and social history, and ROS have been reviewed in the patient chart. All other systems reviewed and negative unless otherwise specified in the HPI. OBJECTIVE: There were no vitals taken for this visit. On physical exam, the patient is found to be a pleasant and cooperative female. Psych: She is alert and oriented x 3 with normal affect. Constitutional: She is well-developed and in no significant distress. Eyes: Sclerae clear. Resp: Breathing is regular and nonlabored without audible wheezing. Hem: There is no ecchymosis. Skin: On examination of the LUE the skin is intact. Msk: Examination inspection of the patient's left upper extremity demonstrates no palpable tenderness. There is no deformity or swelling. She is able to elevate the left upper extremity 160 degrees in forward elevation and abduction. External rotation at 0 degrees abduction is 45 degrees. Internal rotation is to L1. This is nearly symmetric compared to the contralateral shoulder. She has a negative external rotation lag test, and has minimal pain and essentially no weakness with an empty can test. She has exquisite weakness with contraction of infraspinatus, 5-/5 strength with contraction of supraspinatus, 4/5 strength with contraction of subscapularis, 5-/5 strength with contraction of deltoid and serratus anterior. She has 5/5 strength with contraction of infraspinatus on the right shoulder.The ipsilateral elbow wrist and fingers have a supple, full and painless range of motion. Thereis an intact radial pulse. The fingers are pink and warm with good capillary refill. There is no swelling in this extremity. Images/Radiographs: Shoulder views reviewed at her 09/04/2020 visit revealed advanced arthritis of the glenohumeral joint and AC joint but also a sclerotic line at the humeral head neck junction likely compatible with a subacute fracture versus periarticular osteophyte formation following the articular surface of the humeral head. XR SHOULDER LEFT 2 OR MORE VIEWS 09/04/2020 IMPRESSION FINDINGS / IMPRESSION: 3 views of the left shoulder show no acute fracture or malalignment. There is severe osteoarthrosisin the glenohumeral joint and moderate osteoarthrosis in the AC joint. Opacity projecting over the lower mediastinum corresponds to a fairly large hiatal hernia, as demonstrated on prior CT scans. Assessment: Severe glenohumeral arthritis, complete tear of infraspinatus PLAN: Treatment options, including physical therapy, conservative measures, surgical interventions, and medical therapies were reviewed with the patient. We had a thorough discussion involving ongoing conservative care for her shoulder. She is doing allof the appropriate stretches and strengthening exercises and has maintained or improved her mobility and her pain overall is described as more of a discomfort. She is sleeping well. We agreed at thistime to hold off on any cortisone injections unless her pain worsens dramatically. We also discussed the role of surgical options as a last resort if we fail conservative management. This may or may not include a primary shoulder arthroplasty versus reverse shoulder arthroplasty which would requireadvanced imaging for further work-up. We will continue to follow along as needed and she will call should her pain or weakness progress. The patient has requested we mail a copy of today's note to her home upon signing. Patient was encouraged to call the office with any questions or concerns. Next Visit: Patient will call I spent a total of 30 minutes on the date of this encounter meeting with the patient and reviewing documentation/coordinating care as described in the above note. This was separate from any procedures performed at the time of the visit. Dr. Iraheta was the attending physician available in the clinic today if needed. A consultation wasnot required. This note was prepared using voice recognition software and the EMR. There may be inadvertent errors and omissions. Suzy Alexandra PA-C 12/30/2020 8:15 documented in this encounter Plan of Treatment Upcoming Encounters Date Type Department Care Team (Latest Contact Info) Description 03/27/2024 14:25 EST Hospital Encounter [facility] OR [address] [place] [phone] Vishal Castillo MD [address] [place] [phone] 03/27/2024 14:25 EST - 03/27/2024 17:55 EST Surgery [facility] OR [address] [place] [phone] Vishal Castillo MD [address] [place] [phone] Left Reverse Total Shoulder Arthroplasty [76900 (CPT??)] 04/08/2024 15:30 EST Post-op Visit [facility] Hand & Upper Extremity Program - [address] [address] Vishal Castillo MD [address] [place] [phone] Scheduled Procedures Name Priority Associated Diagnoses Date/Ti me ARTHROPLASTY, SHOULDER, TOTAL Left rotator cuff tear arthropathy 03/27/2024 14:25 EST documented as of this encounter Visit Diagnoses Diagnosis Glenohumeral arthritis, left- Primary Infraspinatus tendon tear, left, subsequent encounter Left rotator cuff tear arthropathy documented in this encounter Care Teams Ed Physicians Relationship Specialty Start Date End Date Barbara Conway NP [address] [place] [address] PCP - General 08/19/13 documented as of this encounter
--- OUTSIDE RECORDS SUMMARY | 2024-03-18 22:10 | XMS_ITS | Encounter Summary ---
Author Organization [facility] Address [address] [place] [address] Care Team Providers Care Buggy Runner Name Role Phone Barbara Conway Myla VACUUM APPLICATOR OPERATOR Primary Care Provider [phone] Encounter Details Date Type Department Care Team (Latest Contact Info) Description 10/22/2021 Travel Social History Tobacco Use Types Packs/Day [...] Description 03/27/2024 14:25 EST Hospital Encounter [facility] [place] [address] [place] [phone] Vishal Castillo MD [address] [place] [phone] 03/27/2024 14:25 EST - 03/27/2024 17:55 EST Surgery [facility] [place] [address] [place] [phone] Vishal Castillo MD [address] [place] [phone] Left Reverse Total Shoulder Arthroplasty [73470 (CPT??)] 04/08/2024 15:30 EST Post-op Visit [facility] Hand & Upper Extremity Program - [address] [address] Vishal Castillo MD [address] [place] [phone] Scheduled Procedures Name Priority Associated Diagnoses Date/Ti me ARTHROPLASTY, SHOULDER, TOTAL Left rotator cuff tear arthropathy 03/27/2024 14:25 EST documented as of this encounter Visit Diagnoses Not on filedocumented in this encounter Care Teams Buggy Runner Relationship Specialty Start Date End Date Barbara Conway, VACUUM APPLICATOR OPERATOR [address] [place] [address] PCP - General 08/19/13 documented as of this encounter
--- OUTSIDE RECORDS SUMMARY | 2024-03-18 22:10 | XMS_ITS | Encounter Summary ---
Author Organization [facility] Address [address] [place] [address] Care Team Providers Care Livestock Slaughterer Name Role Phone Barbara Conway PROMOS EXECUTIVE PRODUCER Primary Care Provider [phone] Encounter Details Date Type Department Care Team (Latest Contact Info) Description 12/03/2019 9:37 EDT Hospital Encounter [facility] [address] [place], [place] [phone] Discharge Disposition: Home or Self Care Social [...] Info) Description 03/27/2024 14:25 EST Hospital Encounter [facility] OR [address] [place] [address] [phone] Vishal Castillo MD [address] [place] [phone] 03/27/2024 14:25 EST - 03/27/2024 17:55 EST Surgery [facility] OR [address] [place] [address] [phone] Vishal Castillo MD [address] [place] [phone] Left Reverse Total Shoulder Arthroplasty [89985 (CPT??)] 04/08/2024 15:30 EST Post-op Visit [facility] Hand & Upper Extremity Program - [address] [address] Vishal Castillo MD [address] [place] [phone] Scheduled Procedures Name Priority Associated Diagnoses Date/Ti me ARTHROPLASTY, SHOULDER, TOTAL Left rotator cuff tear arthropathy 03/27/2024 14:25 EST documented as of this encounter Procedures Procedure Name Priority Date/Time Associated Diagnosis Comments XR KNEE LEFT 1-2 VIEWS Routine 12/03/2019 9:50 EDT Status post total right knee replacement documented in this encounter Results * XR KNEE RIGHT 3 VIEWS (12/03/2019 [...] OR DERABLES Final Result * XR KNEE LEFT 1-2 VIEWS (12/03/2019 [...] on filedocumented in this encounter Care Teams Livestock Slaughterer Relationship Specialty Start Date End Date Barbara Conway, [place] [address] [place] [address] PCP - General 08/19/13 documented as of this encounter
--- OUTSIDE RECORDS SUMMARY | 2024-03-18 22:10 | XMS_ITS | Encounter Summary ---
Author Organization [facility] Address [address] [place] [address] Care Team Providers Care Lotteries Agent Name Role Phone JuanBarbara whitney Myla INDUSTRIAL/ORGANIZATIONAL PSYCHOLOGIST Primary Care Provider [phone] Reason for Visit * Reason Comments Back Pain See TCALL. Referred to ED by neurosurg for spinal stenosis. Ambulatory without complaints. Denies pain at this time. Encounter Details Date Type Department Care Team (Late st Contact Info) Description 10/22/2021 11:46 EDT - 10/22/2021 14:17 EDT Emergency [facility] Emergency Department - [address] [phone] Katlin Rice PA-C [address] [facility], [address] [place] [phone] Spinal stenosis of lumbosacral region (Primary Dx) Discharge Disposition: Home or Self Care Social [...] Sign Reading Time Taken Comments Blood Pressure 167/59 10/22/2021 1137 EDT Pulse 69 10/22/2021 1137 EDT Temperature 36.7 ??C (98.1 ??F) 10/22/2021 1137 EDT Respiratory Rate 18 10/22/2021 1137 EDT Oxygen Saturation 100% 10/22/2021 1137 EDT Inhaled Oxygen Concentration - - Weight 81.6 kg (180 lb) 10/22/2021 1137 EDT Height 162.6 cm (5' 4) 10/22/2021 1137 EDT Body Mass Index 30.9 10/22/2021 1137 EDT documented in this encounter Functional Status [...] Mackenzie Pappas RN documented in this encounter Discharge Instructions * Discharge Instructions* Katlin Rice PA-C - 10/22/2021 14:03 EDT You were seen in the ED for evaluation of low back pain radiating down your buttocks You did not have any red flag symptoms of a spinal cord compression listed below at this visit, however you need to monitor closely for worsening or persistent symptoms Continue your outpatient medications as directed Follow-up with your scheduled spine clinic appointment as directed If your pain is not controlled, if you develop numbness or tingling around your groin area, leg weakness, urinary incontinence or retention, stool incontinence, or if any other concerning symptoms occur, please return to the ED for reevaluation. documented in this encounter Medications at Time [...] Code Departure Means Destination Home or Self Residential documented in this encounter ED Notes * Katlin Rice PA-C - 10/22/2021 1417 EDT Emergency Department Visit Assessment and ED Course Patient is a 76-year-old female with past medical history significant for osteoarthritis, chronic low back pain with known lumbar stenosis, hypertension, diabetes, GERD, who presents to the ED for evaluation of possible cauda equina syndrome. Patient is resting on the stretcher in no acute distress. She has full strength throughout her lower extremities bilaterally, full sensation. Her postvoid residual volume is 0. Normal reflexes. She has normal rectal tone and sensation. Her incontinence symptoms are with stress, such as ambulating or coughing, and have been present for 2 months. Her low back pain is chronic, radiates to her buttocks, however has also been unchanged for several months. Her MRI is notable for severe stenosis which crowds the cauda equina, she she will benefit from spine consultation as an outpatient. I do not feel that her symptoms are consistent with cauda equina syndrome today, and believe she can follow-up with outpatient neurosurgery as scheduled. Patient agrees with the plan. Of note, patient was directed to the ED by her primary care provider to see spine. I called and spoke with them. They report that they actually spoke with Dr. Ramirez yesterday who did not feel that the patient needed emergent assessment, yet the office accidentally sent her to the ED today due to some miscommunication out of concern of her MRI. I discussed red flag symptoms in detail with the patient, she will return to the ED as needed. Final diagnoses: Spinal stenosis of lumbosacral region Disposition: Discharged Chief complaint: Chief Complaint Patient presents with ??? Back Pain See TCALL. Referred to ED by neurosurg for spinal stenosis. Ambulatory without complaints. Denies pain at this time. HPI Patient is a 76-year-old female with past medical history significant for osteoarthritis, chronic low back pain with known lumbar stenosis, hypertension, diabetes, GERD, who presents to the ED for evaluation of possible cauda equina syndrome. Patient states that she has years of chronic low back pain. Several months ago her low back pain started radiating down her buttocks bilaterally. It occasionally radiates down the entirety of the right leg. She was sent for a repeat lumbar MRI to further evaluate this, and had this test done yesterday. She states that she has chronic urinary incontinence, described as when she is standing up walking around if she bears down or coughs that she has some i ncontinence of urine. This is more notable when her bladder is full. She is having no difficulty sensing if she has a full bladder, and feels that she is emptying her bladder without difficulty. There is no fecal incontinence. No numbness or tingling to the lower extremities. She denies weakness. She takes a combination of gabapentin and Tylenol for her back pain which she feels is sufficient. She is able to ambulate, and participate in exercise programs with pain, however minimal difficulty otherwise. No headache or dizziness, chest pain, shortness of breath, abdominal pain. No fevers or chills. She has a follow-up appointment with orthopedics scheduled for next month. She was called todayby her PCPs office and directed to the ED to rule out cauda equina. However, she was then called while in the ED stating that she did not need to be seen in the ED. History was provided by: pt Patient's pertinent PMH, FH, SH were reviewed and edited as necessary. ROS A focused review of systems was performed. Pertinent positives and negatives as noted in HPI. Physical Exam BP (!) 167/59 (BP Cuff Location: Right arm, BP Patient Position: Sitting) Pulse 69 Temp 36.7 ??C (98.1 ??F) (Temporal) Resp 18 Ht 162.6 cm (64) Wt 81.6 kg (180 lb) SpO2 100% BMI 30.90 kg/m?? A medical screening exam was performed. Physical Exam Vitals and nursing note reviewed. Constitutional: General: She is not in acute distress. Appearance: She is well-developed and well-nourished. She is not diaphoretic. Comments: Seated dressed on the stretcher in NAD. Ambulatory to the front line leader later to ask about timing, with no difficulty HENT: Head: Normocephalic and atraumatic. Eyes: Extraocular Movements: EOM normal. Cardiovascular: Rate and Rhythm: Normal rate. Pulses: Intact distal pulses. Pulmonary: Effort: Pulmonary effort is normal. No respiratory distress. Abdominal: Palpations: Abdomen is soft. Tenderness: There is no abdominal tenderness. Musculoskeletal: General: Normal range of motion. Cervical back: Normal range of motion. Comments: Sensation is intact to the perineum and the lower extremities bilaterally -normal rectal tone, normal rectal sensation on chaperoned exam. 5/5 strength throughout the lower extremities bilaterally Reflexes 2+ throughout. Ambulatory with a steady gait Skin: General: Skin is warm and dry. Neurological: Mental Status: She is alert and oriented to person, place, and time. Psychiatric: Mood and Affect: Mood and affect normal. Procedures Procedures * Jessica Covington RN - 10/22/2021 1416 EDT Pt is alert and oriented. Self ambulatory. Comprehension of D/C instructions validated. D/C home byMD. * Jessica Covington RN - 10/22/2021 1252 EDT Post void residual was 0 ml. * Adelaida Bryant - 10/22/2021 1248 EDT Pt rang call dean and was answered by this automobile service writer. Pt discussed with this automobile service writer that her PCP called her and told her that two doctors reviewed the MRI that she had the other day and had differing opinions about the diagnosis. Pt was concerned because the reading of the MRI is the reason she is in the ED today, but she still wants to be seen and have her evaluation here. Pt states regardless of the MRI reading she is still concerned about her urinary issues. Pt and this automobile service writer had a conversation about what would happen during her time in the ED including the UA, PVR scan, and being seen by the PA. Pt then informed automobile service writer she had to urinate and this automobile service writer collected the urine sample and then performed PVR scan. PVR was zero. RN notified of the results and this conversation. * Kaleigh Arnold RN - 10/22/2021 1137 EDT BP (!) 167/59 (BP Cuff Location: Right arm, BP Patient Position: Sitting) Pulse 69 Temp 36.7 ??C (98.1 ??F) (Temporal) Resp 18 Ht 162.6 cm (64) Wt 81.6 kg (180 lb) SpO2 100% BMI 30.90 kg/m?? Chief Complaint Patient presents with ??? Back Pain See TCALL. Referred to ED by neurosurg for spinal stenosis. Ambulatory without complaints. Denies pain at this time. documented in this encounter Plan of Treatment Upcoming Encounters Date Type Department Care Team (Latest Contact Info) Description 03/27/2024 14:25 EST Hospital Encounter [facility] OR [address] [place] [phone] Vishal Castillo MD [address] [place] [phone] 03/27/2024 14:25 EST - 03/27/2024 17:55 EST Surgery [facility] OR [address] [place] [address] [phone] Vishal Castillo MD [address] [place] [phone] Left Reverse Total Shoulder Arthroplasty [55996 (CPT??)] 04/08/2024 15:30 EST Post-op Visit [facility] Hand & Upper Extremity Program - [address] [place] [address] Vishal Castillo MD [address] [place] [phone] Scheduled Procedures Name Priority Associated Diagnoses Date/Ti me ARTHROPLASTY, SHOULDER, TOTAL Left rotator cuff tear arthropathy 03/27/2024 14:25 EST documented as of this encounter Procedures Procedure Name Priority Date/Time Associated Diagnosis Comments POCT URINE DIPSTICK, CLINITEK STAT 10/22/2021 12:47 EDT POCT CSN BARCODE URINE DIPSTICK STAT 10/22/2021 12:45 EDT POCT URINE CLINITEK (DIPSTICK) - DOES NOT REFLEX STAT 10/22/2021 12:45 EDT documented in this encounter Results * (ABNORMAL) POCT URINE DIPSTICK, CLINITEK (10/22/2021 12:47 EDT) Color, UA Yellow Yellow 10/22/2021 12:49 [facility] Clarity, UA Clear Clear 10/22/2021 12:49 [facility] Glucose, UA Negative Negative 10/22/2021 12:49 [facility] Bilirubin, UA Negative Negative 10/22/2021 12:49 [facility] Ketones, UA Negative Negative 10/22/2021 12:49 [facility] Specific Scalf, Urine 1.010 1.001 - 1.035 10/22/2021 12:49 [facility] Blood, UA Negative Negative 10/22/2021 12:49 [facility] pH, UA 6.0 4.6 - 8.0 10/22/2021 12:49 [facility] Protein, UA Negative Negative 10/22/2021 12:49 [facility] Urobilinogen, UA 0.2 0.2 - 1.0 mg/dL 10/22/2021 12:49 [facility] Nitrite, UA Negative Negative 10/22/2021 12:49 [facility] Leuk Esterase 1+(A) Negative 10/22/2021 12:49 [facility] HN LAB COMMENT (CLINITEK, UR) Test performed at Emergency Department 10/22/2021 12:49 [facility] Urine URINE SPECIMEN COLLECTION, CLEAN CATCH / Unknown 10/22/2021 12:47 EDT 10/22/2021 12:49 EDT Katlin Rice PA-C POINT OF CARE TEST O RDERABLES Final Result Performing Organization Address [facility] Co de Phone Number [facility] [address] [place] [address] * POCT CSN BARCODE URINE DIPSTICK (10/22/2021 12:45 EDT) Urine URINE SPECIMEN COLLECTION, CLEAN CATCH / Unknown Urine Collect / Unknown 10/22/2021 12:45 EDT 10/22/2021 12:45 EDT Katlin Rice PA-C LAB INFO SERVICE AND SUPPORT & PHONE RESULT Final Result Performing Organization Address [facility] de Phone Number [facility] [address] [place] [address] documented in this encounter Visit Diagnoses Diagnosis Spinal stenosis of lumbosacral region- Primary Spinal stenosis, lumbar region, without neurogenic claudication Left rotator cuff tear arthropathy documented in this encounter Care Teams Lotteries Agent Relationship Specialty Start Date End Date Barbara Conway, INDUSTRIAL/ORGANIZATIONAL PSYCHOLOGIST [address] [place] [address] PCP - General 08/19/13 documented as of this encounter
--- OUTSIDE RECORDS SUMMARY | 2024-03-18 22:10 | XMS_ITS | Encounter Summary ---
Author Organization [facility] Address [address] [place] [address] Care Team Providers Care Apprentice Painter Neckties Name Role Phone Barbara Conway WAX ENGRAVER Primary Care Provider [phone] Reason for Referral * PT/OT/ST (Routine/Next Available) - Closed Specialty Diagnoses / Procedures Referred By Maryuri sarmiento Referred To Contact Diagnoses Status post total right knee replacement Russel Otto MD Phone: tel: fax: Referral ID Status Reason Start Date Expiration Date V isits Requested Visits Authorized [id number] Closed Specialty Services Required 12/03/2019 1 1 Question Answer Reason for Request: RIGHT TOTAL KNEE Comments Evaluate and treat Aquatherapy Stretch and strengthen Home exercise program instruction Protocol for specific surgery SENT WITH PATIENT Reason for Visit * Reason Comments Post-OP Follow Up Encounter Details Date Type Department Care Team (Late st Contact Info) Description 12/03/2019 9:30 EDT Post-op Visit [facility] Orthopedic Surgery - [address] [place] [address] Russel Otto MD [address] [place] [phone] Status post total right knee replacement (Primary Dx) Social History Tobacco Use Types [...] Pressure - - Pulse - - Temperature 36.2 ??C (97.1 ??F) 12/03/2019 0928 EDT Respiratory Rate - - Oxygen Saturation - - Inhaled Oxygen Concentration - - Weight - [...] documented in this encounter Progress Notes * Abby Rubalcava MA - 12/03/2019 0930 EDT HPI The patient returns for a postoperative visit after undergoing Right total knee arthroplasty with patelloplasty.10/28/2019She has no unusual complaints. The patient denies fever, chills, excessive drainage from the wound, and changes in sensation and strength. she is recovering at home, is Taking tylenol and motrin pain medication, has resumed activities of daily living and is up to full weight bearing. With a cane. REVIEW OF SYSTEMS: Yes No Yes No Fever/Chills x Joint pain x Fatigue x Muscle pain x Night sweats x Morning stiffness x Weight change x If yes, duration Gain or loss? Numbness/tingling x Headaches x If yes, where? Dizziness x Muscle weakness x Chest pain x Excessive thirst x Shortness of breath x Change in mood x Cough x Nervous or anxious x Nausea/vomiting x Sad or depressed x Abdomnial pains/cramps x Excessive bruising x Heartburn/Reflux x Urinary Changes x Rash x Balance Issues x * Russel Otto MD - 12/03/2019929 EDT I have reviewed the review of systems and histories in the note by the TONI 74-year-old female status post right total knee arthroplasty on 2019 she is doing exceptionallywell with no significant complaints Patient has no unusual complaints. The patient denies fever, chills, excessive drainage from the wound, and changes in sensation and strength. Patient is taking [id number] pain medicines, has resumed activities of daily living and is upto full weigh bearing brings a cane for balance occasionally only Wound sites are clear no evidence of erythema drainage or infection, no evidence of cord or DVT in the leg, swelling is as expected, negative Homans test with full extension 120 degrees of flexion knee feels stable she has some swelling in the leg that is mild and she wears a Tubigrip no pitting edema she walks almost without a limp she can walk without her cane 1. Status post total right knee replacement XR KNEE LEFT 1-2 VIEWS XR KNEE RIGHT 3 VIEWS AMB CONS/FOLLOW UP PHYSICAL THERAPY We discussed the way forward after knee replacement-continued outpatient physical therapy graduallyweaning from walking aids and working hard on range of motion and strengthening. We discussed eventual driving when functionally safe and cleared by a therapist (would be my preference) We also discussed that many people feel stiff and uncomfortable for a year after knee replacement although many people feel much improved earlier. We reiterated the importance of dental prophylaxis when appropriate and are current guidelines. We talked about appropriate activities with a knee replacement and also activities to avoid or modify so that we do not place the implant more risk for failure. Importance of weight control was discussed. We talked about the option of temporary handicap parking tagged if needed and routine maintenance follow-up for knee replacement at the orthopedists. And to contact early for any new problems or severe pain. She has been doing some exercises on her own this provider in her building but I do want her to seethe outpatient therapist to normalize her gait pattern she will continue to take an aspirin daily as long as there is still some residual swelling to so she does not get a phlebitis but there is no sign of DVT or cord But she does not have to take 2 a day Follow-up 6 to 8 months or earlier for any concern We spent time for questions and answers to ensure patient's satisfaction and understanding, and allowed time for a back and forth documented in this encounter Plan of Treatment Upcoming Encounters Date Type Department Care Team (Latest Contact Info) Description 03/27/2024 14:25 EST Hospital Encounter [facility] OR [address] [place] [address] [phone] Vishal Castillo MD [address] [place] [phone] 03/27/2024 14:25 EST - 03/27/2024 17:55 EST Surgery [facility] OR [address] [place] [address] [phone] Vishal Castillo MD [address] [place] [phone] Left Reverse Total Shoulder Arthroplasty [03437 (CPT??)] 04/08/2024 15:30 EST Post-op Visit [facility] Hand & Upper Extremity Program - [facility] [address] [place] [address] Vishal Castillo MD [address] [place] [phone] Scheduled Procedures Name Priority Associated Diagnoses Date/Ti me ARTHROPLASTY, SHOULDER, TOTAL Left rotator cuff tear arthropathy 03/27/2024 14:25 EST Scheduled Referrals Name Type Priority Associated Diagnoses Orde r Schedule AMB CONS/FOLLOW UP PHYSICAL THERAPY Outpatient Referral Routine Status post total right knee replacement Ordered: 12/03/2019 documented as of this encounter Procedures Procedure Name Priority Date/Time Associated Diagnosis Comments XR KNEE RIGHT 3 VIEWS Routine 12/03/2019 9:50 EDT Status post total right knee replacement XR KNEE LEFT 1-2 VIEWS Routine 12/03/2019 [...] documented in this encounter Visit Diagnoses Diagnosis Status post total right knee replacement- Primary Left rotator cuff tear arthropathy documented in this encounter Care Teams Apprentice Painter Neckties Relationship Specialty Start Date End Date Barbara Conway, [place] [address] [place] [address] PCP - General 08/19/13 documented as of this encounter
--- OUTSIDE RECORDS SUMMARY | 2024-03-18 22:10 | XMS_ITS | Encounter Summary ---
Author Organization [facility] Address [address] [place] [address] Care Team Providers Care Welt Slasher Name Role Phone Barbara Conway GENERAL MANAGER Primary Care Provider [phone] Encounter Details Date Type Department Care Team (Latest Contact Info) Description 03/15/2022 14:21 EST - 03/15/2022 23:59 EST Hospital Encounter [facility] [address] [place], [place] [id number] Status post total right knee replacement Discharge Disposition: Home or Self Care Social [...] 14:25 EST Hospital Encounter [facility] OR [address] [place] [address] [phone] Vishal Castillo MD [address] [place] [phone] 03/27/2024 14:25 EST - 03/27/2024 17:55 EST Surgery [facility] OR [address] [place] [phone] Vishal Castillo MD [address] [place] [phone] Left Reverse Total Shoulder Arthroplasty [64071 (CPT??)] 04/08/2024 15:30 EST Post-op Visit [facility] Hand & Upper Extremity Program - [address] [address] Vishal Castillo MD [address] [place] [phone] Scheduled Procedures Name Priority Associated Diagnoses Date/Ti me ARTHROPLASTY, SHOULDER, TOTAL Left rotator cuff tear arthropathy 03/27/2024 14:25 EST documented as of this encounter Procedures Procedure Name Priority Date/Time Associated Diagnosis Comments XR KNEE RIGHT 3 VIEWS Routine 03/15/2022 14:33 EST Status post total right knee replacement documented in this encounter Results * XR KNEE RIGHT 3 VIEWS (03/15/2022 14:33 EST) Anatomical Region Laterality Modality Lower Extremities Right Computed Radio graphy 03/16/2022 9:18 EST Impressions 03/16/2022 9:18 EST FINDINGS / IMPRESSION: Right knee: 3 views of the right knee again show a total knee arthroplasty without evidence of interval hardware failure, loosening, or periprosthetic fracture. There is a chronic appearing ossicle superior to the patella on the lateral view that may correspond to a mineralized body and/or an area of heterotopic bone formation. There is a small joint effusion. Left knee: Frontal view of the left knee shows a total knee arthroplasty that appears intact and well aligned. Narrative 03/16/2022 9:18 EST EXAM/TECHNIQUE: XR KNEE RIGHT 3 VIEWS, XR KNEE LEFT 1-2 VIEWS ??03/15/2022 2:30 PM HISTORY: ?? right total knee replacement COMPARISON: Radiograph 12/03/2019. Procedure Note Arturo Falk, DO - 03/16/2022 EXAM/TECHNIQUE: XR KNEE RIGHT 3 VIEWS, XR KNEE LEFT 1-2 VIEWS 03/15/2022 2:30 PM HISTORY: right total knee replacement COMPARISON: Radiograph 12/03/2019. IMPRESSION FINDINGS / IMPRESSION: Right knee: 3 views of the right knee again show a total knee arthroplastywithout evidence of interval hardware failure, loosening, orperiprosthetic fracture. There is a chronic appearing ossicle superior tothe patella on the lateral view that may correspond to a mineralized bodyand/or an area of heterotopic bone formation. There is a small jointeffusion. Left knee: Frontal view of the left knee shows a total knee arthroplastythat appears intact and well aligned. Russel Otto MD IMG DIAGNOSTIC IMAGING OR DERABLES Final Result documented in this encounter Visit Diagnoses Diagnosis Status post total right knee replacement Left rotator cuff tear arthropathy documented in this encounter Care Teams Welt Slasher Relationship Specialty Start Date End Date Barbara Conway NP [address] [place] [address] PCP - General 08/19/13 documented as of this encounter
--- OUTSIDE RECORDS SUMMARY | 2024-03-18 22:10 | XMS_ITS | Encounter Summary ---
Author Organization [facility] Address [address] [place] [address] Care Team Providers Care Wood Barker Name Role Phone Barbara Conway AIRPLANE COVERER Primary Care Provider [phone] Reason for Visit * Reason Comments New Patient Visit Spinal stenosis: hav e some incontinence-started late winter/early spring. Believes its connected to serious back issue. MRI done here. * Referral (Routine) - Receiving Office to Obtain Authorization Specialty Diagnoses / Procedures Referred By Maryuri sarmiento Referred To Contact Pelvic Medicine Diagnoses Unspecified urinary incontinence Barbara Conway, AIRPLANE COVERER [address] [place] [address] Phone: tel: fax: Tessie Escobar MD Phone: tel: fax: Referral ID Status Reason Start Date Expiration Date Visits Requested Visits Authorized [id number] Receiving Office to Obtain Authorization 1 1 Encounter Details Date Type Department Care Team (Late st Contact Info) Description 03/22/2022 10:45 EST Office Visit [facility] Pelvic Medicine and Reconstructive Surgery - Medical Office [facility] [address] [place] [address] Simi Logan MD [address] [facility], [address] [place] [id number] Urinary incontinence, unspecified type (Primary Dx) Social History Tobacco Use Types [...] Sign Reading Time Taken Comments Blood Pressure 163/92 03/22/2022 1048 EST Pulse 67 03/22/2022 1048 EST Temperature - - Respiratory Rate - - Oxygen Saturation - - Inhaled Oxygen Concentration - - Weight 81.6 kg (180 lb) 03/22/2022 1048 EST Height 162.6 cm (5' 4) 03/22/2022 1048 EST Body Mass Index 30.9 03/22/2022 1048 EST documented in this encounter Functional Status [...] 2x/week. 42.5 g 2 03/22/2022 4 documented in this encounter Progress Notes * Simi Logan MD - 03/22/2022 1045 EST Urology New Patient Visit Chief Complaint: No chief complaint on file. Reason for Consult: Urology was asked to see Aretha in consultation at the request of Barbara Conway. HPI: Aretha is a 77 y.o. female with a hx of urinary incontinence who is referred bc she was found to have spinal stenosis and the thought was that they were related. Wakes up wet overnight - does notsoak through pads. Some days leaks 5-6 pads. Seems to be related to urge on the way to the bathroom. Worse on hydrated. No leakage with cough, laugh, sneezing. Symptoms started in the spring. No sensa tion of incomplete. Some double voiding - small amounts the second time. No hematuria. Has UTIs 2-3/year. 4-5 cups of coffee. 2-3x nocturia - less now with evening reduction with fluid. burning with UTIs - symptoms resolve fairly quickly with keflex. Patient Active Problem List Diagnosis ??? History [...] replacement ??? PONV (postoperative nausea and vomiting) PMH PSH Past Medical History: Diagnosis Date ??? Anesthesia complication severe N/V. Had local for other knee and it worked great ??? Anserine bursitis Right anserine tendinitis/bursitis ??? Arrhythmia 10/24/19 EKG NSR with 1st degree AV block ??? Back pain ??? Bilateral bunions ??? Colon cancer (HCC-CMS) ([facility]) cancerous polyp removed Apr 2005 ??? [...] vomiting ??? Obesity ??? Rectal cancer (HCC-CMS) ([facility]) stage 1 colo rectal cancer Past Surgical History: Procedure Laterality Date ??? COLON SURGERY colon polyp removed ??? COLONOSCOPY ??? JOINT REPLACEMENT left knee ??? TONSILLECTOMY ??? TUBAL LIGATION Social History Family History Social History Socioeconomic History ??? Marital status: Spouse name: Not on file ??? Number of children: Not on file ??? Years of education: Not on file ??? Highest education level: Not on file Occupational History ??? Not on file Tobacco Use ??? Smoking status: Never ??? Smokeless tobacco: Never Substance and Sexual Activity ??? Alcohol use: Not Currently ??? Drug use: No ??? Sexual activity: Not on file Other Topics Concern ??? Not on file Social History Narrative ??? Not on file Social Determinants of Health Financial Resource Strain: Not on file Food Insecurity: Not on file Transportation Needs: Not on file Physical Activity: Not on file Stress: Not on file Social Connections: Not on file Housing Stability: Not on file No pertinent FHx Medications Current Outpatient Medications: ??? acetaminophen (TYLENOL) 500 mg tablet, Take 2 Tabs by mouth every 6 hours., Disp: , Rfl: ??? ascorbic acid (VITAMIN C) 500 mg tablet, Take 1 Tab by mouth at bedtime., Disp: , Rfl: ??? atenolol (TENORMIN) 50 mg tablet, Take 50 mg by mouth daily., Disp: , Rfl: ??? atorvastatin (LIPITOR) 40 mg tablet, Take 40 mg by mouth at bedtime. Take 1/2 tab, Disp: , Rfl: ??? cephALEXin (KEFLEX) 500 mg capsule, Take 500 mg by mouth as needed. 1 tab BID for 3 days at first sign of UTI (Patient not taking: No sig reported), Disp: , Rfl: ??? cholecalciferol, Vitamin D3, 1,000 unit tablet, Take 1,000 Units by mouth daily., Disp: , Rfl: ??? gabapentin (NEURONTIN) 100 mg capsule, Take 200 mg by mouth as needed for Pain. Once daily in afternoon PRN, Disp: , Rfl: ??? gabapentin (NEURONTIN) 100 mg capsule, Take 100 mg by mouth 2 times daily. 3 caps in morning and evening., Disp: , Rfl: ??? lisinopril (PRINIVIL, ZESTRIL) 40 mg tablet, Take 40 mg by mouth daily., Disp: , Rfl: ??? metformin (GLUCOPHAGE) 1,000 mg tablet, Take 1,000 mg by mouth 2 times daily with meals., Disp:, Rfl: ??? metoprolol (LOPRESSOR) 50 mg tablet, Take 50 mg by mouth 2 times daily., Disp: , Rfl: ??? omeprazole (PRILOSEC) 40 mg capsule, Take 40 mg by mouth daily., Disp: , Rfl: Allergies Allergies Allergen Reactions ??? Scopolamine halluciation ??? Robaxin [Methocarbamol] halluciation ??? Sulfa (Sulfonamide Antibiotics) Rash ??? Tramadol halluciation ??? Zocor [Simvastatin] Other (See Comments) severe leg cramps Review of Systems: A 10 point ROS was negative unless listed as positive in the HPI Objective/Physical Exam: Vital Signs: There were no vitals taken for this visit. Exam: Gen: Alert, in no distress Oropharynx: Lips normal Head: Atraumatic Pulm: Normal effort, unlabored Genital: no CVA tenderness Musculoskeletal: No gross motor deficits Skin: Skin warm and dry Psych: Mood and affect appropriate Lab Results Component Value Date/Time HGB 9.3 (L) 10/31/2019 05:09 CREATININE 0.64 10/31/2019 05:09 CREATININE 0.69 10/30/2019 05:27 CREATININE 0.66 10/29/2019 06:31 PVR: 0ml Data Review: NA Assessment/Plan 1. Urinary incontinence, unspecified type 77 yo female with a hx of stress urinary incontinence for years. Bothered by urgency and urge incontinence. Also has UTIs. Cut down caffeine. Estrace F/u 2 months Consider PFPT and meds if not better. SIMI LOGAN MD This note has been prepared with voice recognition software. Please excuse herbicide service sales representative errors.' documented in this encounter Plan of Treatment Upcoming Encounters Date Type Department Care Team (Latest Contact Info) Description 03/27/2024 14:25 EST Hospital Encounter [facility] OR [address] [place] [address] [phone] Vishal Castillo MD [address] [place] [phone] 03/27/2024 14:25 EST - 03/27/2024 17:55 EST Surgery [facility] OR [address] [place] [phone] Vishal Castillo MD [address] [place] [phone] Left Reverse Total Shoulder Arthroplasty [40878 (CPT??)] 04/08/2024 15:30 EST Post-op Visit [facility] Hand & Upper Extremity Program - [address] [place] [address] Vishal Castillo MD [address] [place] [phone] Scheduled Procedures Name Priority Associated Diagnoses Date/Ti me ARTHROPLASTY, SHOULDER, TOTAL Left rotator cuff tear arthropathy 03/27/2024 14:25 EST documented as of this encounter Procedures Procedure Name Priority Date/Time Associated Diagnosis Comments POCT URINE DIPSTICK, CLINITEK Routine 03/22/2022 11:02 EST Urinary incontinence, unspecified type POCT CSN BARCODE URINE DIPSTICK Routine 03/22/2022 10:27 EST Urinary incontinence, unspecified type POCT URINE CLINITEK (DIPSTICK) - DOES NOT REFLEX Routine 03/22/2022 10:27 EST Urinary incontinence, unspecified type BLADDER SCAN Routine 03/22/2022 Urinary incontinence, unspecified type documented in this encounter Results * POCT URINE DIPSTICK, CLINITEK (03/22/2022 11:02 EST) Color, UA Yellow Yellow 03/22/2022 11:04 [facility] Clarity, UA Clear Clear 03/22/2022 11:04 [facility] Glucose, UA Negative Negative 03/22/2022 11:04 [facility] Bilirubin, UA Negative Negative 03/22/2022 11:04 [facility] Ketones, UA Negative Negative 03/22/2022 11:04 [facility] Specific [place], Urine 1.015 1.001 - 1.035 03/22/2022 11:04 [facility] Blood, UA Negative Negative 03/22/2022 11:04 [facility] pH, UA 7.0 4.6 - 8.0 03/22/2022 11:04 [facility] Protein, UA Negative Negative 03/22/2022 11:04 [facility] Urobilinogen, UA 0.2 0.2 - 1.0 mg/dL 03/22/2022 11:04 [facility] Nitrite, UA Negative Negative 03/22/2022 11:04 [facility] Leuk Esterase Negative Negative 03/22/2022 11:04 [facility] HN LAB COMMENT (CLINITEK, UR) Test performed at the [facility] 03/22/2022 11:04 [facility] Urine URINE SPECIMEN COLLECTION, CLEAN CATCH / Unknown 03/22/2022 11:02 EST 03/22/2022 11:04 EST us Simi Logan MD POINT OF CARE TEST ORDERABLES Final Result Performing Organization Address [facility] Co de Phone Number [facility] [address] [place] [address] * POCT CSN BARCODE URINE DIPSTICK (03/22/2022 10:27 EST) Urine URINE SPECIMEN COLLECTION, CLEAN CATCH / Unknown 03/22/2022 10:27 EST 03/22/2022 10:27 EST Simi Logan MD LAB INFO SERVICE AND SUPPORT & PHONE RESULT Final Result Performing Organization Address [facility] Co de Phone Number [facility] [address] [place] [address] * BLADDER SCAN (03/22/2022) Bladder Scan 0cc [facility] P OINT OF CARE Simi Logan MD PROCEDURE/MINOR SURGICAL ORDE RABLES Final Result Performing Organization Address [facility] Co de Phone Number [facility] POINT OF CARE documented in this encounter Visit Diagnoses Diagnosis Urinary incontinence, unspecified type- Primary Left rotator cuff tear arthropathy documented in this encounter Care Teams Wood Barker Relationship Specialty Start Date End Date Barbara Conway, [place] [address] [place] [address] PCP - General 08/19/13 documented as of this encounter
--- OUTSIDE RECORDS SUMMARY | 2024-03-18 22:10 | XMS_ITS | Encounter Summary ---
Author Organization [facility] Address [address] [place] [address] Care Team Providers Care Director Of Email Marketing Name Role Phone Barbara Conway CHAR CONVEYOR TENDER Primary Care Provider [phone] Reason for Referral * Referral (Routine/Next Available) - Receiving Office to Obtain Authorization Specialty Diagnoses / Procedures Referred By Contact Referred To Contact Gastroenterology and Hepatology Procedures COLONOSCOPY PROCEDURE Arnel Oliva MD Phone: tel: fax: Referral ID Status Reason Start Date Expiration Date Visits Requested Visits Authorized [id number] Receiving Office to Obtain Authorization 09/08/2021 1 1 Reason for Visit * Test (Routine) - Authorized Specialty Diagnoses / Procedures Referred By Contac t Referred To Contact General Surgery Diagnoses Encounter for screening for malignant neoplasm of colon Procedures COLONOSCOPY NV COLONOSCOPY FLX DX W/COLLJ SPEC WHEN PFRMD Arnel Oliva MD Phone: tel: fax: Referral ID Status Reason Start Date Expiration Date V isits Requested Visits Authorized [id number] Authorized 1 1 Encounter Details Date Type Department Care Team (Late st Contact Info) Description 09/08/2021 7:29 EDT - 09/08/2021 23:59 EDT Hospital Encounter [facility] [place] [address] [place] [address] Arnel Lambert MD [address] [place] [address], [address] [place] [address] Discharge Disposition: Home or Self Care Social [...] 7:55 EDT documented as of this encounter Last Filed Vital Signs Vital Sign Reading Time Taken Comments Blood Pressure 105/64 09/08/2021 0929 EDT Pulse - - Temperature 36.4 ??C (97.5 ??F) 09/08/2021 0847 EDT Respiratory Rate 16 09/08/2021 0929 EDT Oxygen Saturation 96% 09/08/2021 0929 EDT Inhaled Oxygen Concentration - - Weight 80.7 kg (178 lb) 09/08/2021 0745 EDT Height 162.6 cm (5' 4) 09/08/2021 0745 EDT Body Mass Index 30.55 09/08/2021 0745 EDT documented in this encounter Functional Status [...] Code Departure Means Destination Home or Self [facility] documented in this encounter H&P Notes * Arnel Oliva MD - 09/08/2021 0840 EDT Endoscopy Sedation for Procedure History & Physical Date: 09/08/2021 Time: 8:12 Location: [facility] Planned Procedure: Colonoscopy Chief Complaint/Indications for Procedure: Encounter for screening for malignant neoplasm of colon History Previous Complication with Sedation and/or Anesthesia? No Allergies: Allergies Allergen Reactions ??? Scopolamine halluciation ??? Robaxin [Methocarbamol] halluciation ??? Sulfa (Sulfonamide Antibiotics) Rash ??? Tramadol halluciation ??? Zocor [Simvastatin] Other (See Comments) severe leg cramps Current Medications: Current Outpatient Medications Medication ??? acetaminophen (TYLENOL) 500 mg tablet ??? ascorbic acid (VITAMIN C) 500 mg tablet ??? atenolol (TENORMIN) 50 mg tablet ??? atorvastatin (LIPITOR) 40 mg tablet ??? cephALEXin (KEFLEX) 500 mg capsule ??? cholecalciferol, Vitamin D3, 1,000 unit tablet ??? gabapentin (NEURONTIN) 100 mg capsule ??? gabapentin (NEURONTIN) 100 mg capsule ??? lisinopril (PRINIVIL, ZESTRIL) 40 mg tablet ??? metformin (GLUCOPHAGE) 1,000 mg tablet ??? metoprolol (LOPRESSOR) 50 mg tablet ??? omeprazole (PRILOSEC) 40 mg capsule Current Facility-Administered Medications Medication Route Frequency ??? diphenhydrAMINE (BENADRYL) injection 25 mg intravenous Once PRN ??? sodium chloride 0.9 % (NS) infusion intravenous PRN Or ??? lactated ringers (LR) infusion intravenous PRN ??? lidocaine (PF) 10 mg/mL (1 %) injection 2 mg intradermal PRN ??? lidocaine (PF) 10 mg/mL (1 %) injection 2 mg intradermal PRN ??? ondansetron (PF) (ZOFRAN) injection 2-4 mg intravenous PRN ??? sodium chloride 0.9 % (flush) flush 3 mL intravenous PRN ??? sodium chloride 0.9 % (flush) flush 5 mL intravenous Q8H Past Medical History: Past Medical History: Diagnosis Date ??? Anesthesia complication severe N/V. Had local for other knee and it worked great ??? Anserine bursitis Right anserine tendinitis/bursitis ??? Arrhythmia 10/24/19 EKG NSR with 1st degree AV block ??? Back pain ??? Bilateral bunions ??? Colon cancer (HCC-CMS) (HCC) cancerous polyp removed Apr 2005 ??? Colon [...] vomiting ??? Obesity ??? Rectal cancer (HCC-CMS) (HCC) stage 1 colo rectal cancer Social History: Past Surgical History: Procedure Laterality Date ??? COLON SURGERY colon polyp removed ??? COLONOSCOPY ??? JOINT REPLACEMENT left knee ??? TONSILLECTOMY ??? TUBAL LIGATION Social History Tobacco Use ??? Smoking status: Never Smoker ??? Smokeless tobacco: Never Used Substance Use Topics ??? Alcohol use: Not Currently Family History: Family History Problem Relation Age of Onset ??? Diabetes Mother ??? Cancer Father lung cancer ??? Breast Cancer Neg Hx ??? Colon Cancer Neg Hx ??? Colon Polyps Neg Hx ??? Endometrial Cancer Neg Hx ??? Ovarian Cancer Neg Hx ??? Esophageal Cancer Neg Hx ??? Pancreatic Cancer Neg Hx ??? Rectal Cancer Neg Hx ??? Stomach Cancer Neg Hx Review of Systems as pertinent: Physical Exam Vital Signs: BP (!) 142/68 Temp 36.1 ??C (97 ??F) (Temporal) Resp 16 Ht 162.6 cm (64) Wt 80.7 kg (178 lb) SpO2 99% BMI 30.55 kg/m?? Heart Examination: Cardiac Regularity: Regular Respiratory Examination: Respiratory Pattern: Regular Breath Sounds Right: Clear Breath Sounds Left: Clear, Stridor Abdominal Examination: Soft, non-tender, bowel sounds normal, no masses, no organomegaly Additional physical exam related to the proposed procedure, patient activity, disease state and treatment as pertinent: Assessment Previous complications with sedation or anesthesia?: No Airway Concerns: None/NA Anesthesia Classification: ASA 2 Plan: Proceed with sedation for procedure Fasting Time: Date of Last Liquid: 09/08/21 Time of Last Liquid: 0500 Date of Last Solid: 09/06/21 Time of Last Solid: 1800 Patient Appropriate Candidate for Planned Sedation?: Yes Arnel Oliva MD 09/08/2021 8:12 documented in this encounter Plan of Treatment Upcoming Encounters Date Type Department Care Team (Latest Contact Info) Description 03/27/2024 14:25 EST Hospital Encounter [facility] OR [address] [place] [address] [id number] Vishal Castillo MD [address] [place] [phone] 03/27/2024 14:25 EST - 03/27/2024 17:55 EST Surgery [facility] OR [address] [place] [address] [id number] Vishal Castillo MD [address] [place] [phone] Left Reverse Total Shoulder Arthroplasty [29143 (CPT??)] 04/08/2024 15:30 EST Post-op Visit [facility] - [address] [address] Vishal Castillo MD [address] [place] [phone] Scheduled Procedures Name Priority Associated Diagnoses Date/Ti me ARTHROPLASTY, SHOULDER, TOTAL Left rotator cuff tear arthropathy 03/27/2024 14:25 EST documented as of this encounter Procedures Procedure Name Priority Date/Time Associated Diagnosis Comments COLONOSCOPY PROCEDURE Routine 09/08/2021 8:43 EDT POCT GLUCOSE, INTERFACED Routine 09/08/2021 7:49 EDT documented in this encounter Results * COLONOSCOPY PROCEDURE (09/08/2021 8:43 EDT) Anatomical [...] procedure. ??Total sedation time was ??17 ??minutes. [place] Bowel Prep Right Colon: 3 ? Transverse [...] Oliva MD GI PROCEDURE ORDERABLES Final Result * (ABNORMAL) POCT GLUCOSE, INTERFACED (09/08/2021 7:49 EDT) Glucose, POC 122(H) 70 - 100 mg/dL 09/08/2021 7:51 EDT [facility] HN LAB POC COMMENT (GLUCOSE) Test Performed by Nursing Services 09/08/2021 7:51 EDT [facility] Blood CAPILLARY BLOOD / Unknown 09/08/2021 7:49 EDT 09/08/2021 7:51 EDT us Arnel Oliva MD POINT OF CARE TEST ORDERABLES Final Result [facility] [address] [place] [address] documented in this encounter Visit Diagnoses Not on filedocumented in this encounter Administered Medications Inactive Administered Medications - up to 3 most recent administrations Medication Order MAR Action Action Date Dose Rate Site lactated ringers (LR) infusion 30 mL/hr, intravenous, PRN, Starting on Mon09/08/21 at 0743, Until 09/11/21 at 0205, Routine, Preprocedure New Bag 09/08/2021 7:58 EDT 30 mL/hr 30 mL/ hr meperidine (PF) (DEMEROL) injection intravenous, PRN, Starting on Mon09/08/21 at 0822, Until Mon09/08/21 at 0822, Routine Given 09/08/2021 8:22 EDT 75 mg midazolam (MDV) (VERSED) injection intravenous, PRN, Starting on Mon09/08/21 at 0822, Until Mon09/08/21 at 0822, Routine Given 09/08/2021 8:22 EDT 2 mg ondansetron (PF) (ZOFRAN) injection intravenous, PRN, Starting on Mon09/08/21 at 0818, Until Mon09/08/21 at 0818, Routine Given 09/08/2021 8:18 EDT 4 mg documented in this encounter Discontinued Medications Medication Sig Discontinue Reason Start Date End Da te polyethylene glycol (GOLYTELY) 236-22.74-6.74 -5.86 gram suspension Please follow one time use instructions provided by general surgery 08/31/2021 09/08/2021 documented as of this encounter Historical Medications * This list may reflect changes made after this encounter. gabapentin (NEURONTIN) 100 mg capsule Take 2 Capsules by mouth as needed for Pain. Once daily in afternoon PRN added in this encounter Orders Medications Ordered That Asif ht Not Have Been Administered Count Last Ordered Date First Ordered Date diphenhydrAMINE (BENADRYL) injection 25 mg 1 09/08/2021 lidocaine (PF) 10 mg/mL (1 % ) injection 2 mg 2 09/08/2021 ondansetron (PF) (ZOFRAN) injection 2-4 mg 1 09/08/2021 sodium chloride 0.9 % (flush) flush 3 mL 1 09/08/2021 sodium chloride 0.9 % (flush) flush 5 mL 1 09/08/2021 sodium chloride 0.9 % (NS) infusion 1 09/08 Discharge Count Last Ordered Date First Orde red Date DISCHARGE PATIENT 1 09/08/2021 documented in this encounter Care Teams Director Of Email Marketing Relationship Specialty Start Date End Date Barbara Conway, CHAR CONVEYOR TENDER [address] [place] [address] PCP - General 08/19/13 documented as of this encounter
--- OUTSIDE RECORDS SUMMARY | 2024-03-18 22:10 | XMS_ITS | Encounter Summary ---
Author Organization [facility] Address [address] [place] [address] Care Team Providers Care Train Starter Name Role Phone Barbara Conway LANDSCAPE LABORER Primary Care Provider [phone] Reason for Referral * Radiology Services (Routine) - Closed Specialty Diagnoses / Procedures Referred By Maryuri sarmiento Referred To Contact Diagnoses Encounter for screening mammogram for malignant neoplasm of breast Procedures MA BREAST SCREENING CLOVIS BILATERAL Barbara Conway NP [address] [place] [address] Phone: tel: fax: Referral ID Status Reason Start Date Expiration Date Visits Re quested Visits Authorized [id number] Closed 02/04/2020 1 1 Reason for Visit * Radiology Services (Routine) - Closed Specialty Diagnoses / Procedures Referred By Maryuri sarmiento Referred To Contact Diagnoses Encounter for screening mammogram for malignant neoplasm of breast Procedures MA BREAST SCREENING CLOVIS BILATERAL Barbara Conway NP [address] [place] [address] Phone: tel: fax: Referral ID Status Reason Start Date Expiration Date Visits Re quested Visits Authorized [id number] Closed 02/04/2020 1 1 Encounter Details Date Type Department Care Team (Latest Contact Info) Description 10/13/2020 13:51 EDT - 10/13/2020 23:59 EDT Hospital Encounter [facility] Breast Imaging - [facility] [address] [place] [address] Encounter for screening mammogram for malignant neoplasm [...] Info) Description 03/27/2024 14:25 EST Hospital Encounter [facility] [place] [address] [place] [address] [id number] Vishal Castillo MD [address] [place] [phone] 03/27/2024 14:25 EST - 03/27/2024 17:55 EST Surgery [facility] [place] [address] [place] [address] [phone] Vishal Castillo MD [address] [place] [phone] Left Reverse Total Shoulder Arthroplasty [09932 (CPT??)] 04/08/2024 15:30 EST Post-op Visit [facility] Hand & Upper Extremity Program - [facility] [address] [place] [address] Vishal Castillo MD [address] [place] [phone] Scheduled Procedures Name Priority Associated Diagnoses Date/Ti me ARTHROPLASTY, SHOULDER, TOTAL Left rotator cuff tear arthropathy 03/27/2024 14:25 EST documented as of this encounter Procedures Procedure Name Priority Date/Time Associated Diagnosis Comments MA BREAST SCREENING CLOVIS BILATERAL Routine 10/13/2020 14:22 EDT Encounter for screening mammogram for malignant neoplasm of breast documented in this encounter Results * MA BREAST SCREENING CLOVIS BILATERAL (10/13/2020 14:22 EDT) Anatomical Region Laterality Modality Breast Bilateral Mammography 10/13/2020 16:5 4 EDT Impressions 10/13/2020 16:54 EDT Negative, no evidence of malignancy. RECOMMENDATION: Routine screening mammography is recommended. OVERALL ASSESSMENT: BI-RADS 1: Negative These results will be communicated to your patient via a lay letter from Radiology. If any additional imaging is needed we will contact your patient directly. I have personally reviewed the images and the above interpretation and agree with the findings. Narrative 10/13/2020 16:54 EDT MA BREAST SCREENING CLOVIS BILATERAL ??10/13/2020 2:20 PM History: Routine screening. Comparison: ??Comparison has been made to previous images. Technique: Routine 3D tomosynthesis with synthesized 2D views with CAD Bilateral Breast Composition: There are scattered areas of fibroglandular density. Bilateral Breast Findings: ??No significant masses, calcifications or other abnormalities are seen. Procedure Note Brittany Hernandez MD - 10/13/2020 MA BREAST SCREENING CLOVIS BILATERAL 10/13/2020 2:20 PM History: Routine screening. Comparison: Comparison has been made to previous images. Technique: Routine 3D tomosynthesis with synthesized 2D views with CAD Bilateral Breast Composition: There are scattered areas of fibroglandulardensity. Bilateral Breast Findings: No significant masses, calcifications or otherabnormalities are seen. IMPRESSION Negative, no evidence of malignancy. RECOMMENDATION: Routine screening mammography is recommended. OVERALL ASSESSMENT: BI-RADS 1: Negative These results will be communicated to your patient via a lay letter fromRadiology. If any additional imaging is needed we will contact yourpatient directly. I have personally reviewed the images and the above interpretation andagree with the findings. us Barbara Conway NP IMG MAMMOGRAPHY ORDERABLES Fi nal Result documented in this encounter Visit Diagnoses Diagnosis Encounter for screening mammogram for malignant neoplasm of breast Other screening mammogram Left rotator cuff tear arthropathy documented in this encounter Care Teams Train Starter Relationship Specialty Start Date End Date Barbara Conway, LANDSCAPE LABORER [address] [place] [address] PCP - General 08/19/13 documented as of this encounter
--- OUTSIDE RECORDS SUMMARY | 2024-03-18 22:10 | XMS_ITS | Encounter Summary ---
Author Organization [facility] Address [address] [place] [address] Care Team Providers Care District Court Justice Name Role Phone Barbara Conway Myla CHANNEL MAN Primary Care Provider [phone] Reason for Visit * Reason Comments Follow-up Encounter Details Date Type Department Care Team (Late st Contact Info) Description 06/17/2020 14:15 EST Office Visit [facility] Orthopedic Surgery - [facility] [address] [place] [address] Russel Otto MD [address] [place] [phone] Status post total right knee replacement (Primary Dx); Overweight for height Social History Tobacco Use Types Packs/Day Years [...] No 10/28/2019 17:00 Mackenzie Vela RN * Are you blind or do [...] Progress Notes * Abby Rubalcava MA - 06/17/2020 1415 EST 6 month follow up Right total knee arthroplasty with patelloplasty.10/28/2019 She has finished PT and no complaints today and continues to make progress. * Russel Otto MD - 06/17/2020 1415 EST I have reviewed the review of systems and histories in the note by the TONI 75-year-old female with follow-up for right total knee arthroplasty with patelloplasty from 2019. She is completed physical therapy had no complaints continues to make progress with strength and function he is exercising every day and riding the bike She is alert and oriented on exam her knee incision is well-healed she has about full extension flexes to degrees Feels stable she is walking without walking aids or significant limp there is no significant edema 1. Status post total right knee replacement 2. Overweight for height Aretha has done a remarkable job during her recovery she is keeping strong and will maintain this program She understands dental prophylaxis and we reiterated that today she is not had any dental work yet but even for any cleaning she will get antibiotic prophylaxis for at least the next couple years She should return for orthopedic evaluation for routine maintenance every 2 to 3 years to assess prosthesis usually with x-rays to assess for any loosening she should come earlier for any questions or concerns We spent time for questions and answers to ensure patient's satisfaction and understanding, and allowed time for a back and forth documented in this encounter Plan of Treatment Upcoming Encounters Date Type Department Care Team (Latest Contact Info) Description 03/27/2024 14:25 EST Hospital Encounter [facility] [place] [address] [place] [address] [phone] Vishal Castillo MD [address] [place] [phone] 03/27/2024 14:25 EST - 03/27/2024 17:55 EST Surgery [facility] OR [address] [place] [address] [phone] Vishal Castillo MD [address] [place] [phone] Left Reverse Total Shoulder Arthroplasty [85101 (CPT??)] 04/08/2024 15:30 EST Post-op Visit [facility] Hand & Upper Extremity Program - [address] [address] Vishal Castillo MD [address] [place] [phone] Scheduled Procedures Name Priority Associated Diagnoses Date/Ti me ARTHROPLASTY, SHOULDER, TOTAL Left rotator cuff tear arthropathy 03/27/2024 14:25 EST documented as of this encounter Visit Diagnoses Diagnosis Status post total right knee replacement- Primary Overweight for height Overweight Left rotator cuff tear arthropathy documented in this encounter Care Teams District Court Justice Relationship Specialty Start Date End Date Barbara Conway NP [address] [place] [address] PCP - General 08/19/13 documented as of this encounter
--- OUTSIDE RECORDS SUMMARY | 2024-03-18 22:10 | XMS_ITS | Encounter Summary ---
Author Organization [facility] Address [address] [place] [address] Care Team Providers Care Brief Writer Name Role Phone ZoraidaBarbara Myla KISS MIXER Primary Care Provider [phone] Reason for Visit * Reason Onset Date Comments Follow-up Diagnostic PSG 06/01/2021 Encounter Details Date Type Department Care Team (Late st Contact Info) Description 06/01/2021 Telephone [facility] General Surgery - [facility] [address] [place], [place] [phone] Arnel Oliva MD [address] [place] [address], [facility] [address] [place] [phone] Follow-up Diagnostic PSG Social History Tobacco Use Types Packs/Day Years [...] 17:00 EDT Loud, Brigi t, RN * Are you blind or do [...] encounter Miscellaneous Notes * Telephone Encounter - Ivelisse Choe - 06/01/2021 0955 EST Please call patient she thinks she is do for a colonoscopy. documented in this encounter Plan of Treatment Upcoming Encounters Date Type Department Care Team (Latest Contact Info) Description 03/27/2024 14:25 EST Hospital Encounter [facility] OR [address] [place] [address] [phone] Vishal Castillo MD [address] [place] [phone] 03/27/2024 14:25 EST - 03/27/2024 17:55 EST Surgery [facility] OR [address] [place] [address] [phone] Vishal Castillo MD [address] [place] [phone] Left Reverse Total Shoulder Arthroplasty [37386 (CPT??)] 04/08/2024 15:30 EST Post-op Visit [facility] Hand & Upper Extremity Program - [facility] [address] [place] [place] [address] Vishal Castillo MD [address] [place] [phone] Scheduled Procedures Name Priority Associated Diagnoses Date/Ti me ARTHROPLASTY, SHOULDER, TOTAL Left rotator cuff tear arthropathy 03/27/2024 14:25 EST documented as of this encounter Visit Diagnoses Not on filedocumented in this encounter Care Teams Brief Writer Relationship Specialty Start Date End Date Barbara Conway NP [address] [place] [address] PCP - General 08/19/13 documented as of this encounter
--- OUTSIDE RECORDS SUMMARY | 2024-03-18 22:10 | XMS_ITS | Encounter Summary ---
Author Organization [facility] Address [address] [place] [address] Care Team Providers Care Night Auditor Name Role Phone Barbara Conway CEMENT MASON Primary Care Provider [phone] Encounter Details Date Type Department Care Team (Latest Contact Info) Description 03/15/2022 14:21 EST - 03/15/2022 23:59 EST Hospital Encounter [facility] [address] [place], [place] [phone] Status post total right knee replacement Discharge [...] Description 03/27/2024 14:25 EST Hospital Encounter [facility] OR [address] [place] [address] [phone] Vishal Castillo MD [address] [place] [phone] 03/27/2024 14:25 EST - 03/27/2024 17:55 EST Surgery [facility] OR [address] [place] [phone] Vishal Castillo MD [address] [place] [phone] Left Reverse Total Shoulder Arthroplasty [05781 (CPT??)] 04/08/2024 15:30 EST Post-op Visit [facility] Hand & Upper Extremity Program - [address] [address] Vishal Castillo MD [address] [place] [phone] Scheduled Procedures Name Priority Associated Diagnoses Date/Ti me ARTHROPLASTY, SHOULDER, TOTAL Left rotator cuff tear arthropathy 03/27/2024 14:25 EST documented as of this encounter Procedures Procedure Name Priority Date/Time Associated Diagnosis Comments XR KNEE LEFT 1-2 VIEWS Routine 03/15/2022 14:33 EST Status post total right knee replacement documented in this encounter Results * XR KNEE LEFT 1-2 VIEWS (03/15/2022 14:33 EST) Anatomical Region Laterality Modality Lower Extremities Left Computed Radio graphy 03/16/2022 9:18 EST Impressions [...] intact and well aligned. Russel Otto MD [facility] Final Result documented in this encounter Visit Diagnoses Diagnosis Status post total right knee replacement Left rotator cuff tear arthropathy documented in this encounter Care Teams Night Auditor Relationship Specialty Start Date End Date Barbara Conway NP [address] [place] [id number] PCP - General 08/19/13 documented as of this encounter
--- OUTSIDE RECORDS SUMMARY | 2024-03-18 22:10 | XMS_ITS | Encounter Summary ---
Author Organization [facility] Address [address] [place] [address] Care Team Providers Care Cementer Hand Name Role Phone Barbara Conway Myla GEOSPATIAL IMAGERY INTELLIGENCE ANALYST Primary Care Provider [phone] Encounter Details Date Type Department Care Team (Latest Contact Info) Description 10/08/2020 Travel Social History Tobacco Use Types Packs/Day [...] Info) Description 03/27/2024 14:25 EST Hospital Encounter [facility] [place] [address] [place] [address] [phone] Vishal Castillo MD [address] [place] [phone] 03/27/2024 14:25 EST - 03/27/2024 17:55 EST Surgery [facility] OR [address] [place] [address] [phone] Vishal Castillo MD [address] [place] [phone] Left Reverse Total Shoulder Arthroplasty [43895 (CPT??)] 04/08/2024 15:30 EST Post-op Visit [facility] Hand & Upper Extremity Program - [address] [address] Vishal Castillo MD [address] [place] [phone] Scheduled Procedures Name Priority Associated Diagnoses Date/Ti me ARTHROPLASTY, SHOULDER, TOTAL Left rotator cuff tear arthropathy 03/27/2024 14:25 EST documented as of this encounter Visit Diagnoses Not on filedocumented in this encounter Care Teams Cementer Hand Relationship Specialty Start Date End Date Barbara Conway, GEOSPATIAL IMAGERY INTELLIGENCE ANALYST [address] [place] [address] PCP - General 08/19/13 documented as of this encounter
--- OUTSIDE RECORDS SUMMARY | 2024-03-18 22:10 | XMS_ITS | Encounter Summary ---
Author Organization [facility] Address [address] [place] [address] Care Team Providers Care Slimer Name Role Phone JuanBarbara whitney Myla CHECKER DUMP GROUNDS Primary Care Provider [phone] Reason for Visit * Reason Comments Pain Right knee arthropla sty Encounter Details Date Type Department Care Team (Late st Contact Info) Description 03/15/2022 14:20 EST Office Visit [facility] Orthopedic Surgery - [facility] [address] [place] [address] Russel Otto MD [address] [place] [phone] Status post total right knee [...] - - Weight 81.6 kg (180 lb) 03/15/2022 1406 EST Height 162.6 cm (5' 4) 03/15/2022 1406 EST Body Mass Index 30.9 03/15/2022 1406 EST documented in this encounter Functional Status [...] documented in this encounter Progress Notes * Russel Otto MD - 03/15/2022 1420 EST I have reviewed the review of systems and histories in the note by the TONI Patient is about 2 years status post total knee arthroplasty on the right knee she is doing very well no major complaints no significant minor complaints her range of motion is restored to a functional range her gait has restored to fairly normal gait she feels stable and on exam she is stable wound is well-healed X-rays show well-seated tibiofemoral arthroplasty on the right knee with no evidence of loosening or complications fractures or dislocations 1. Status post total right knee replacement XR KNEE LEFT 1-2 VIEWS XR KNEE RIGHT 3 VIEWS AMB CONS/FOLLOW UP PHYSICAL THERAPY - OUTSIDE OF NETWORK Patient is doing very well she understands dental prophylaxis after about 2 to 3 years 1 can stop doing this in a patient who does not have diabetes or is not immunocompromised and those risks can change through life depending on diagnoses because she has diabetes I have asked her to continue taking that as a preventative and she agrees with she will continue to keep her leg strong she is having some trouble with her back now off anti-inflammatories due to kidney issues and so she is having more trouble we talked about strengthening with a therapist which she is doing and exercising regularlyand using Tylenol appropriate doses we talked about a few of the things she could talk to her primary care about including rheumatologic type medicines it may not clear to the kidneys and/or tramadolas a way to help her on very difficult days but avoid narcotics We had time for questions and answers Should return for monitoring by an orthopedic provider every 3 years or so or earlier for any questions or concerns maintain good dental hygiene And keep leg strong and functional documented in this encounter Plan of Treatment Upcoming Encounters Date Type Department Care Team (Latest Contact Info) Description 03/27/2024 14:25 EST Hospital Encounter [facility] OR [address] [place] [address] Vishal Castillo MD [address] [place] [phone] 03/27/2024 14:25 EST - 03/27/2024 17:55 EST Surgery [facility] OR [address] [place] [address] Vishal Castillo MD [address] [place] [phone] Left Reverse Total Shoulder Arthroplasty [66861 (CPT??)] 04/08/2024 15:30 EST Post-op Visit [facility] Hand & Upper Extremity Program - [facility] [place] [address] Vishal Castillo MD [address] [place] [phone] Scheduled Procedures Name Priority Associated Diagnoses Date/Ti me ARTHROPLASTY, SHOULDER, TOTAL Left rotator cuff tear arthropathy 03/27/2024 14:25 EST documented as of this encounter Results * XR KNEE RIGHT [...] knee arthroplastythat appears intact and well aligned. us Russel Otto MD IMG DIAGNOSTIC IMAGING OR DERABLES Final Result * XR KNEE LEFT 1-2 VIEWS (03/15/2022 [...] Status post total right knee replacement- Primary Status post total right knee replacement Status post total right knee replacement Left rotator cuff tear arthropathy documented in this encounter Care Teams Slimer Relationship Specialty Start Date End Date Barbara Conway NP [address] [place] [address] PCP - General 08/19/13 documented as of this encounter
--- OUTSIDE RECORDS SUMMARY | 2024-03-18 22:11 | XMS_ITS | Encounter Summary ---
Author Organization [facility] Address [address] [place] [address] Care Team Providers Care Ict Sales Assistant Name Role Phone Barbara Conway Myla POULTRY SERVICE TECHNICIAN Primary Care Provider [phone] Encounter Details Date Type Department Care Team (Late st Contact Info) Description 10/24/2019 Lab Requisition [facility] Pathology & Laboratory Medicine - [facility] [address] [place] [address] Outr Resulting Lab, Provider Social History Tobacco Use Types Packs/Day Years [...] have Coronavirus / COVID-19? No / Unsure 10/22/2019 15:59 EDT documented as of this encounter Mental Status * Because of a physical, mental, or emotional condition, do you have serious difficulty concentrating, remembering, or making decisions? (5 years old or older) Answer Entry Date Author Yes 01/04/2013 20:00 EDT Christopher Elmore RN documented in this encounter Plan of Treatment Upcoming Encounters Date Type Department Care Team (Latest Contact Info) Description 03/27/2024 14:25 EST Hospital Encounter [facility] OR [address] [place], [place] [phone] Vishal Castillo MD [address] [place] [phone] 03/27/2024 14:25 EST - 03/27/2024 17:55 EST Surgery [facility] OR [address], [place] [phone] Vishal Castillo MD [address] [place] [phone] Left Reverse Total Shoulder Arthroplasty [[id number] (CPT??)] 04/08/2024 15:30 EST Post-op Visit [facility] Hand & Upper Extremity Program - [address] [address] Vishal Castillo MD [address] [place] [phone] Scheduled Procedures Name Priority Associated Diagnoses Date/Ti me ARTHROPLASTY, SHOULDER, TOTAL Left rotator cuff tear arthropathy 03/27/2024 14:25 EST documented as of this encounter Procedures Procedure Name Priority Date/Time Associated Diagnosis Comments ZZCOVID-19 TEST [facility] PCR Today 10/24/2019 10:00 EDT COVID-19 TESTING Routine 10/24/2019 10:0 0 EDT documented in this encounter Results * COVID-19 TEST [facility] PCR (10/24/2019 10:00 EDT) Swab ENTIRE NASOPHARYNX / Unknown 10/24/2019 10:00 EDT 10/24/2019 15:06 EDT us Provider Outr Resulting Lab MICROBIOLOGY - GENER AL ORDERABLES Final Result [facility] [address] [place] [address] * COVID-19 TESTING (10/24/2019 10:00 EDT) COVID-19 rt-PCR Result Negative Negative 10/25/2019 20:32 EDT [facility] Comment: Negative results do not preclude 2019-nCoV infection and should not be used as the sole basis for treatment or other patient management decisions. Negative results must be combined with clinical observations, patient history, and epidemiological information. This test was developed and its performance characteristics determined by [facility]. It has not been cleared or approved by the [place] Food and Drug Administration. FDA does not require this test to go through premarket FDA review. This test is used for clinical purposes. It should not be regarded as investigational or for research. This laboratory is certified under the Clinical Laboratory Improvement Amendments (CLIA) as qualified to perform high complexity clinical laboratory testing. This test is based on the CDC COVID-19 Emergency Use Authorization (EUA) assay, with minor modification as defined by the FDA Performed on the Applied SUPR 7500 Fast. Performing Lab AB [address]500 [facility] 10/25/2019 20:32 EDT [facility] Swab 10/24/2019 10:0 0 EDT 10/24/2019 15:06 EDT us Provider Outr Resulting Lab MICROBIOLOGY - GENER AL ORDERABLES Final Result [facility] [address] [place] [address] documented in this encounter Visit Diagnoses Not on filedocumented in this encounter Additional Health Concerns Infection Onset Date Last Indicated Resolved Time R/O COVID-19 10/24/2019 10/24/2019 10/28/2019 10:3 2 EDT documented as of this encounter Care Teams Ict Sales Assistant Relationship Specialty Start Date End Date Barbara Conway NP [address] [place] [address] PCP - General 08/19/13 documented as of this encounter
--- OUTSIDE RECORDS SUMMARY | 2024-03-18 22:11 | XMS_ITS | Encounter Summary ---
Author Organization [facility] Address [address] [place] [address] Care Team Providers Care Soils Analyst Name Role Phone Barbara Conway Myla BOAT GARNISHER Primary Care Provider [phone] Encounter Details Date Type Department Care Team (Latest Contact Info) Description 10/28/2019 Travel Social History Tobacco Use Types Packs/Day [...] Info) Description 03/27/2024 14:25 EST Hospital Encounter [facility] OR [address] [place] [phone] Vishal Castillo MD [address] [place] [phone] 03/27/2024 14:25 EST - 03/27/2024 17:55 EST Surgery [facility] OR [address] [place] [phone] Vishal Castillo MD [address] [place] [phone] Left Reverse Total Shoulder Arthroplasty [33158 (CPT??)] 04/08/2024 15:30 EST Post-op Visit [facility] Hand & Upper Extremity Program - [address] [place] [address] Vishal Castillo MD [address] [place] [phone] Scheduled Procedures Name Priority Associated Diagnoses Date/Ti me ARTHROPLASTY, SHOULDER, TOTAL Left rotator cuff tear arthropathy 03/27/2024 14:25 EST documented as of this encounter Visit Diagnoses Not on filedocumented in this encounter Additional Health Concerns Infection Onset Date Last Indicated Resolved Time R/O COVID-19 10/24/2019 10/24/2019 10/28/2019 10:3 2 EDT documented as of this encounter Care Teams Soils Analyst Relationship Specialty Start Date End Date Barbara Conway, BOAT GARNISHER [address] [place] [address] PCP - General 08/19/13 documented as of this encounter
--- OUTSIDE RECORDS SUMMARY | 2024-03-18 22:11 | XMS_ITS | Encounter Summary ---
Author Organization [facility] Address [address] [place] [address] Care Team Providers Care Adjuster Electrical Contacts Name Role Phone Barbara Conway SASH FINISHER Primary Care Provider [phone] Reason for Referral * Referral (Routine/Next Available) - New Request Specialty Diagnoses / Procedures Referred By Maryuri sarmiento Referred To Contact Diagnoses S/P total knee arthroplasty, right Kristina Elizabeth PA-C Phone: tel: fax: - [facility] & [address] [address] Phone: tel: fax: Referral ID Status Reason Start Date Expiration Date Visits Requested Visits Authorized [id number] New Request Specialty Services Required 10/28/2019 1 1 Question Answer I certify that this patient is under my care and that I, or another Medicare allowed practitioner (DO JULOI, BESSY) working with me, had a tbui-hy-hgid encounter with this patient on this date: 10/28/2019 I further certify that the tiuc-rt-uohw encounter was in whole or in part related to the reason the patient needs home health care. Yes The discharge summary or progress note will provide further details that support the need for the home health services and the plan of care. Yes Enter the allowed practitioner (DO JULIO, BESSY) who will provide oversight of this patient's home heatlh care needs and plan of care Russel Otto The patient? s homebound status is related to the following diagnoses, illness or condition (describe): s/p R TKA The patient has a condition due to an illness or injury that restricts the ability to leave home except with: The assistance or supervision of another person Leaving the home is medically contraindicated due to (reason 1): Post surgical restrictions or conditions Leaving home requires a considerable and taxing effort with mobility limited by the following (criteria 1): Post surgical or post procedure restrictions limit ambulation and activity Nursing skilled care requested: Physical Therapy Physical therapy is needed for: Evaluation, Post Surgical, Safety, Strength Training/Exercise Program, Gait/Mobility Assessment and Training, Equipment Recommendations, Weight Bearing * (Routine) - New Request Specialty Diagnoses / Procedures Referred By Maryuri sarmiento Referred To Contact Kristina Elizabeth PA-C Phone: tel: fax: Referral ID Status Reason Start Date Expiration Date Visits Requested Visits Authorized [id number] New Request Specialty Services Required 10/28/2019 1 [address] up with Dr Otto at the location at [address] [place] [address]. Please call the office to confirm your appointment, which should be 4-6 weeks after surgery. The phone number is [phone]. * (Routine) - New Request Specialty Diagnoses / Procedures Referred By Maryuri sarmiento Referred To Contact Kristina Elizabeth PA-C Phone: tel: fax: Referral ID Status Reason Start Date Expiration Date Visits Requested Visits Authorized [id number] New Request Specialty Services Required 10/28/2019 1 1 Comments - Odor from incision - Redness, swelling or drainage from the wound - Temperature greater than 101 degrees Fahrenheit - Numbness in your extremity - Poor circulation (skin is cool to the touch or blue) - Shortness of breath - Pain unrelieved by medication - No bowel movement within 3 days of discharge - A skin rash Reason for Visit * Auth/Cert Specialty Diagnoses / Procedures Referred By Maryuri t Referred To Contact Diagnoses Unilateral primary osteoarthritis, right knee Procedures UT TOTAL KNEE ARTHROPLASTY Russel Otto MD [address] [place] [phone] Phone: tel: fax: Referral ID Status Reason Start Date Expiration Date Visits Re quested Visits Authorized [id number] 10/28/2019 1 1 Encounter Details Date Type Department Care Team (Latest Contact Info) Description 10/28/2019 9:48 EDT - 10/31/2019 13:16 EDT Hospital Encounter [facility] [address] [place] [id number] Russel Otto MD [address] [place] [phone] S/P total knee arthroplasty, right (Primary Dx) Discharge Disposition: Home-Health Care Svc Social History Tobacco Use Types Packs/Day Years [...] 9:48 EDT documented as of this encounter Last Filed Vital Signs Vital Sign Reading Time Taken Comments Blood Pressure 149/76 10/31/2019 1017 EDT александр chen n notified Pulse 66 10/29/2019 0109 EDT Temperature 36.2 ??C (97.2 ??F) 10/31/2019 1017 EDT Respiratory Rate 16 10/31/2019 1017 EDT Oxygen Saturation 91% 10/31/2019 1017 EDT Inhaled Oxygen Concentration - - Weight 88.5 kg (195 lb) 10/28/2019 1700 EDT Height 160 cm (5' 3) 10/28/2019 1700 EDT Body Mass Index 34.54 10/28/2019 1700 EDT documented in this encounter Functional Status [...] Pappas RN documented in this encounter Discharge Summaries * Child, Suzy DEEPIKA Weir - 10/28/2019 1149 EDT Orthopedic Discharge Summary Primary Care Provider: Barbara Conway Attending Physician: Russel Otto MD Admit Date: 10/28/2019 Discharge Date: 10/31/19 Disposition: Home or self care Problems and Procedures Admitting Diagnosis: right knee arthritis Principal/Final Diagnosis: Same s/p R TKA Additional Problems Managed in the Hospital Active Hospital Problems Diagnosis Date Noted ??? *Primary osteoarthritis of right knee 05/02/2016 ??? PONV (postoperative nausea and vomiting) 10/28/2019 Class: Present on Admission Associated with opiate administration Resolved Hospital Problems No resolved problems to display. Principal Procedure: Right total knee arthroplasty Date: 10/28/2019 Secondary Procedures: none Hospital Course This is a 74 year old female with NIDDM, HTN, first degree AVB, spinal stenosis, history of colorectal cancer, admitted DOS for elective R TKA. Patient elected spinal anesthesia. Pre-operative pain protocol used. Post-operative pain well controlled with pain protocol. PT began POD #1 per protocol. Patient has nausea associated with pain, was prescribed scopolamine pathc. Pain well controlled, medically stable on POD# 3, and was discharged home with PT VNA services in place. Patient was placed on ASA 325mg BID x 28 days. Allergies and Immunizations Allergies Allergen Reactions ??? Sulfa (Sulfonamide Antibiotics) Rash ??? Zocor [Simvastatin] Other (See Comments) severe leg cramps There is no immunization history on file for this patient. Transition of Care Plans Condition at Discharge Improved Assessment at Discharge Vital signs: Patient Vitals for the past 12 hrs: BP Resp Temp SpO2 O2 Device 10/31/19 0607 138/73 16 36.3 ??C (97.4 ??F) 91 % None 10/31/19 0138 104/68 16 36.8 ??C (98.2 ??F) 92 % None Results Pending at Discharge Test results still pending from this admission None Relevant Studies at Discharge none Last Lab Results at Discharge BUN: Lab Results Component Value Date BUN 14 10/31/2019 Creatinine: Lab Results Component Value Date CREATININE 0.64 10/31/2019 CBC: Lab Results Component Value Date WBC 9.81 10/31/2019 RBC 3.40 (L) 10/31/2019 HGB 9.3 (L) 10/31/2019 HCT 28.8 (L) 10/31/2019 MCV 85 10/31/2019 MCH 27.4 10/31/2019 MCHC 32.3 10/31/2019 PLT 207 10/31/2019 DIFFTYPE Auto 10/18/2019 Electrolytes: Lab Results Component Value Date NA 132 (L) 10/31/2019 K 4.1 10/31/2019 CL 98 10/31/2019 CO2 27 10/31/2019 HGB: Lab Results Component Value Date HGB 9.3 (L) 10/31/2019 K: Lab Results Component Value Date K 4.1 10/31/2019 Na: Lab Results Component Value Date NA 132 (L) 10/31/2019 Discharge Follow Up Upcoming Appointments Dec 03, 2019 9:20 EDT Post Op Visit with Russel Otto MD [facility] (--) [address] [address] Medication List START taking these medications aspirin 325 mg EC tablet Take 1 Tab by mouth 2 times daily for 28 days. docusate sodium 100 mg capsule Commonly known as: COLACE Take 2 Caps by mouth 2 times daily as needed for Constipation. methocarbamoL 750 mg tablet Commonly known as: ROBAXIN Take 1 Tab by mouth 4 times daily. polyethylene glycol 3350 17 gram packet Commonly known as: MIRALAX Take 17 g by mouth daily as needed (constipation). scopolamine 1 mg over 3 days patch Commonly known as: TRANSDERM-SCOP Place 1 Patch onto the skin every 72 hours. traMADoL 50 mg tablet Commonly known as: ULTRAM Take 1-2 Tabs by mouth every 6 hours. Daily Max: 400 mg CHANGE how you take these medications acetaminophen 500 mg tablet Commonly known as: TYLENOL Take 2 Tabs by mouth every 6 hours. What changed: ?? when to take this ?? reasons to take this CONTINUE taking these medications ascorbic acid (vitamin C) 500 mg tablet Commonly known as: VITAMIN C Take 1 Tab by mouth at bedtime. atenoloL 50 mg tablet Commonly known as: TENORMIN atorvastatin 40 mg tablet Commonly known as: LIPITOR cephALEXin 500 mg capsule Commonly known as: KEFLEX cholecalciferol (Vitamin D3) 1,000 unit tablet gabapentin 100 mg capsule Commonly known as: NEURONTIN lisinopriL 40 mg tablet Commonly known as: PRINIVIL metFORMIN 1,000 mg tablet Commonly known as: GLUCOPHAGE metoprolol 50 mg tablet Commonly known as: LOPRESSOR omeprazole 40 mg capsule Commonly known as: PRILOSEC STOP taking these medications ibuprofen 400 mg tablet Commonly known as: MOTRIN Where to Get Your Medications These medications were sent to [id number] [place] - [address] [facility] [address] , [facility] [address] ?? methocarbamoL 750 mg tablet ?? scopolamine 1 mg over 3 days patch ?? traMADoL 50 mg tablet You can get these medications from any pharmacy You don't need a prescription for these medications ?? acetaminophen 500 mg tablet ?? aspirin 325 mg EC tablet ?? docusate sodium 100 mg capsule ?? polyethylene glycol 3350 17 gram packet NOTE: Patient was given prescriptions for #50 tabs of tramadol. Based on the prescriptions' instructions, patient is prescribed 40 mg total potential daily morphine equivalents. These prescriptions are written with the intention of treating patient for 7 days to 28 days. Therefore, the prescribed number of tablets is considered appropriate for this patient. Suzy Alexandra PA-C 10/31/2019 9:47 Cosigned by Russel Otto MD at 10/31/2019 14:23 EDT documented in this encounter Medications at Time [...] 1 Capsule by mouth every morning. 04/30/2008 aspirin 325 mg EC tablet Take 1 Tab by mouth 2 times daily for 28 days. 56 Tab 10/30/2019 0 cephALEXin (KEFLEX) 500 mg capsule Take 1 Capsule by mouth as needed. 1 tab BID for 3 days at first sign of UTI 4 docusate sodium (COLACE) 100 mg capsule Take 2 Caps by mouth 2 times daily as needed for Constipation. 10/30/2019 1 methocarbamoL (ROBAXIN) 750 mg tablet Take 1 Tab by mouth 4 times daily. 50 Tab 10/30/2019 1 polyethylene glycol 3350 (MIRALAX) 17 gram [...] 10/30/2019 1 documented as of this encounter Ordered Prescriptions Prescription Sig Dispense Quantity Refills Last Filled Start Date End Date acetaminophen (TYLENOL) 500 mg tablet Take 2 Tabs by mouth every 6 hours. 10/30/2019 traMADoL (ULTRAM) 50 mg tablet Take 1-2 Tabs by mouth every 6 hours. Daily Max: 400 mg 50 Tab 10/30/2019 09/04/2020 scopolamine (TRANSDERM-SCOP) 1 mg over [address] 1 Patch onto the skin every 72 hours. 6 Patch 10/30/2019 09/04/2020 polyethylene glycol 3350 (MIRALAX) 17 gram packet Take 17 g by mouth daily as needed (constipatio n). 10/30/2019 09/04/2020 methocarbamoL (ROBAXIN) 750 mg tablet Take 1 Tab by mouth 4 times daily. 50 Tab 10/30/2019 09/04/2020 docusate sodium (COLACE) 100 mg capsule Take 2 Caps by mouth 2 times daily as needed for Constipation . 10/30/2019 09/04/2020 aspirin 325 mg EC tablet Take 1 Tab by mouth 2 times daily for 28 days. 56 Tab 10/30/2019 11/27/2019 documented in this encounter Discharge Disposition Disposition Code Departure Means Destination Home-Health Care [facility] Home documented in this encounter Progress Notes * Katelyn Ramesh - 10/31/2019 1209 EDT I just met with the patient to wish her well and review the Medicare IM. Pt. States she is feeling much better today and is ready to go home. She is in great spirits. Her son is picking her up in [place] at 1pm today. He will stop at [employer] in [facility] to purchase her d/c meds. She will receive home PT visits from [facility] . Katelyn Ramesh RN/[facility] #[id number]. * Child, Suzy WeirDEEPIKA - 10/31/2019 0844 EDT POD#: 3 s/p right TKA S: The patient reports she is ready to discharge home later today. She notes pain is well controlled. Her nausea has resolved. She is eating and voiding without issues. +flatus, no BM yet. She deniesany fevers/chills, coats, sob, cp, n- v, abd pain, calf pain, or numbness/tingling. O: Gen: NAD, AAO x 3. CV: RRR Pulm: Nonlabored Abd: Soft NT, ND; (+) flatus; (-) BM Extr: SCD's and cryouff are intact and working. Calves soft NT (-) Ghanshyam's B; Distal CMS intact; toes are warm and pink. Dressing shows scant drainage and is C/D/I. Vitals: Vitals: 10/30/19 1703 10/30/19200810/31/19 0138 10/31/19 0607 BP: 125/68 114/74 104/68 138/73 BP Cuff Location: Left arm Left arm Left arm Left arm BP Patient Position: Semi fowlers Semi fowlers Semi fowlers Semi fowlers Pulse: Resp: 16 16 16 16 Temp: 36.8 ??C (98.3 ??F) 36.7 ??C (98 ??F) 36.8 ??C (98.2 ??F) 36.3 ??C (97.4 ??F) TempSrc: Tympanic Tympanic Tympanic Tympanic SpO2: 92% 92% 92% 91% Weight: Height: Labs: Lab Results Component Value Date HCT 28.8 (L) 10/31/2019 HCT 29.7 (L) 10/30/2019 Lab Results Component Value Date NA 132 (L) 10/31/2019 UOP: voiding regularly A: POD # 3 s/p Right TKA with Dr. Otto, doing well. Plan: 1) Cont w/ PT per protocol. 2) Cont w/ Aspirin 325 mg BID protocol for DVT prophylaxis x 28 days postop 3) Current pain management: cont current regimen: [place]/tylenol/tramadol and prn robaxin/dilaudid. 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 Suzy Alexandra PA-C *Use [facility] [employer] [phone] * Tessa Mary, PT - 10/31/2019 0824 EDT [facility] Acute Therapies [facility] Physical Therapy Discontinue/Discharge Note Date of Service: 10/31/2019 Precautions: Total knee precautions, WBTT, activity as tolerated, ambulate with assistive device SUBJECTIVE: My son is going to stay with me during the day and my daughter will be there at night so I'm all set. OBJECTIVE: Intervention Completed Today: Time: 750 Total treatment time: 30 minutes. Timed code treatment minutes: 30 Vital signs were monitored and were stable throughout physical therapy session. Therapeutic exercise: Re instructed in/performed per TKA protocol: Supine bilateral LE active: Quad sets x 10 reps with towel roll under ankle to facilitate knee extension Supine R LE active: SAQ x??5??reps Hip IR/ER x??5??reps ?? Supine R LE AA: SLR x??10??reps Heel slides x 10 reps using sheet to self facilitate increased knee ROM Hip abduction/adduction x??5??reps ?? Seated R LE AA: Knee flexion x 5 reps LAQ x 5 reps Instructed in: Standing R LE active: Terminal knee extension x 10 reps Knee flexion x 10 reps R knee AAROM: -10 to 80 degrees - pain limiting further ROM ?? Verbal/tactile cues, demo and handout reference to facilitate slow/controlled technique, muscle group isolation, increased R knee ROM as tolerated, program compliance. Bed mobility status: Modified independence supine > sit > supine without bed features - no cues required. Transfer status: Modified independence sit > stand > sit with RW support. Safe technique demonstrated - no cues required. Gait training: Ambulation on level terrain 50 feet x 1, 100 feet x 1 with RW support ?? Supervision with progression to modified indep with progressive cues/instruction ?? Verbal cues/demo to facilitate upright posture, optimal device advancement distance, equal step length, activity pacing, paced breathing - improved gait quality with cues Patient/Family Education: Topic: Activity pacing/Energy conservation Assistive device/technique Breathing exercises Discharge planning Equipment use Gait Home program Positioning Precautions/protocol Role of therapy Learner: patient Method: verbal, demonstration and tactile cues Barriers to Learning: none noted Outcome: verbalized understanding and returned demonstration Team Communication: Updated RN and primary team re: PT findings/recommendations. Patient has been seen in physical therapy since 10/28. Please refer to the physical therapy notes for specifics on the patient's functional status and treatment sessions. Relevant objective findings: See above. ASSESSMENT: Physical therapy services in this setting have been discontinued secondary to: Goals met to support d/c home. Physical Therapy Diagnosis: Pain, decreased ROM, decreased strength, decreased endurance/aerobic capacity, decreased standing balance, impaired functional mobility status, gait deviations. Physical Therapy Prognosis: Patient demonstrating increased independence and markedly improved activity tolerance today with resolved nausea and adequate pain management. PT functional goals met to support d/c home. She will now have maritime officer support for the first week per this therapist's recommendation. Recommend home PT follow up for skilled, guided exercise program progression. 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 Independent with bed mobility transitions demonstrating appropriate sequencing/motor planning. ?? Modified independence with transfers with rolling walker ?? Modified independence with gait 100-250 feet with the least restrictive assistive device with step through gait pattern and heel strike ?? The patient/caregiver will be aware of the recommendations provided and demonstrate an appropriate technique/understanding of the recommendations ?? Modified independence with home exercise program with handout reference ?? The patient will demonstrate knee AAROM 5-90 degrees - Discontinued PLAN: D/C Physical Therapy Recommended Discharge Destination: Home with family Recommended Discharge Services: Home health physical therapy Recommended Equipment Needs: Patient has all necessary equipment Other recommendations: No other consults recommended at this time Pager: [phone] Tessa Mary PT 10/31/2019 8:25 * Tessa Mary, PT - 10/31/2019 0823 EDT [facility] Acute Therapy [facility] Physical Therapy Contact Note Date of Service: 10/31/2019 Followed up with patient this am. Goals met for d/c home today with family support and home PT. Patient has all necessary equipment. Patient's son to pick her up today at 1300 for transport home. Full discontinue note to follow. Tessa Mary PT 10/31/2019 8:23 * Krunal Contreras, RN - 10/31/2019 0215 EDT Data: Assumed care of Pt @ 1900. Pt is POD #3 s/p RTKA. Knee dressing CDI, +CSMTs, +DP/PT pulses. Pt denies CP/SOB/Dyspnea/Lightheadedness/dizziness/Fevers/Chills. Pt still endorsing minor nausea butimproved since yesterday. Pt rating pain at most this shift 08/01. Pt's goal this shift is to rest. Action: Clustered care to promote rest. Medicated per JUN. Assisted with OOB- bathroom as needed. Assisted with repositioning as needed. Lights dimmed, door shut to promote sleep. VS/RR monitored. Response: Pt able to sleep during most hourly checks overnight. VSS. WCTM and intervene as necessary. KRUNAL CONTRERAS RN 10/31/2019 2:15 * Katelyn Ramesh - 10/30/2019 9744 EDT Initial Case Management/Social Work Assessment and Discharge Plan/Readmission Risk Assessment REASON FOR ADMISSION: Primary osteoarthritis of right knee Patient understands reason for admission: Yes(POD #2 right total knee replacement, h/o oa, left tkr01/04/13, col rectal ca, dm, gerd, htn, obese 5'3 195lbs) PATIENT CONTACT INFO VERIFIED: Yes PATIENT ADDRESS VERIFIED: Yes Type of housing (single family, condo, apartment, usp, single room occupancy, [facility] funded hotel room, group [place]) - sr apartment complex Who does the patient live with? alone Does the patient have access to their own bedroom/bathroom/kitchen - or is it shared with others? alone LIVING ARRANGEMENTS AND ACCESSIBILITY ISSUES: Living Arrangements: Alone(sr. apartment complex) Levels: 1 Stairs to enter: 0 Handicap access: Grab bars, Elevator Bathroom located on bedroom level?: Yes What in home social supports are available to the patient? (family staying nights with patient. friend will be staying with patient during the daytime for at least 3 days. ) Is 24/ care available? Yes ADVANCED DIRECTIVES, POA &/or COLST IN PLACE: Healthcare Directive: Yes, patient has advance directive for healthcare treatment Type of Healthcare Directive: Health care treatment directive Copy in Chart: Yes, previous copy on file @ [employer] DIRECTIVES FOR FINANCES: Directive For Finances: No TRANSPORTATION: Transportation: Family, Self CULTURAL, FAITH and/or LANGUAGE factors affecting health care/discharge planning: Spiritual/Cultural Requests: None Any factors affecting health care/discharge planning?: No Insurance in Place: Yes Medical Insurance: Yes Type of insurance: Medicare, Supplemental plan to Medicare, Commercial insurance, Coverage for prescriptions Medicare type: A, B Supplemental: [facility] Coverage for medications in place: [place] Commercial coverage: [place] bs Referred to patient financial services: No Nutrition: DISCHARGE RISK ASSESSMENT: Requires assistance with ADLs/IADLs;Acute/chronic wound or pressure ulcer;Diagnosis of Diabetes Total # selected above: Score of 2 - 4: This patient is at MODERATE RISK for re-hospitalization Tentative plan to address the risk of re-hospitalization for those at HIGH MODERATE RISK: Refer to skilled home care services RAPT TOOL: Age: 66-76 Gender: Female Ambulation distance: 1-2 blocks Gait device: None Community Services: Home health, MOW, SASH-none of one time a week Will you live with someone who will care for you?: No RAPT Tool Score: 6 Patient expects to be discharged to: home SBIRT: SASQ (Single Alcohol Screening Question) How many times in the past year have you had 4 or more drinks in a single day?: Never How many times in the past year have you used an illegal drug or used a prescription medication fornon-medical reasons?: Never Intervention in place/initiated?: No, not indicated FUNCTIONAL STATUS: Activities patient requires assistance: None(patient is fully independent. activities limited d/t pain. she is A&OX3. a very pleasant woman who spoke with me appropriately and fluently. no psychosocial issues. ) Assistive Device: Front wheel walker COMMUNITY RESOURCES/SUPPORTS: Primary Care Provider: Barbara Conway PCP Verified: Yes Specialists: None Type of Home Health Services: None DME Provider: N/A , patient has a rolling walker, shower chair and grab bars Pharmacy: [id number] - [place], [place] - [address] [facility] [address] [facility] [address] Home Health: Other: POST HOSPITAL TRANSITION PLAN: Pt will d/c to home with support of family and friends. [facility] PT visits. Her son Jim will provide her ride home at 1pm tomorrow. He will stop at [facility] to picked edge sewing machine operator her d/c meds on the way home. KATELYN RAMESH 10/30/2019 15:05 * Tessa Mary, PT - 10/30/2019 0956 EDT [facility] Acute Therapies [facility] Physical Therapy Encounter Note Date of Service: 10/30/2019 Subjective/Objective Subjective Still nauseous and have a lot of pain today. They're going to try a patch. Don't think I can go today. Agreeable to PT despite nausea and pain. Objective Intervention completed today: Time: 925 Total treatment time: 30 minutes. Timed code treatment minutes: 30 Vital signs were monitored and were stable throughout physical therapy session. Therapeutic exercise: Instructed in/performed per TKA protocol: Supine bilateral LE active: Ankle pumps x 10 reps Quad sets x 10 reps Glut sets x 10 reps Supine R LE active: SAQ x 5 reps Hip IR/ER x 5 reps ?? Supine R LE AA: SLR x 5 reps Heel slides x 10 reps using sheet to self facilitate increased knee ROM Hip abduction/adduction x 5 reps ?? Seated R LE AA: Knee flexion x 5 reps LAQ x 5 reps R knee AAROM: -10 to 80 degrees - pain limiting further ROM ?? Verbal/tactile cues, demo and handout reference to facilitate slow/controlled technique, muscle group isolation, increased R knee ROM as tolerated, program compliance. Therapeutic activity: Modified independence supine > sit R side of bed without bed features. Min contact assist of 1 with R LE management anti gravity with sit > supine without bed features. ?? Verbal cues to facilitate lower quarter sequencing/use of L LE to manage R LE anti gravity Supervision sit > stand > sit with progression to modified independence with RW support afterverbal cues to solidify safety. ?? Verbal cues to facilitate optimal device positioning, safe hand placement and R foot placement during transitions Ambulation on level terrain 25 feet x 1 with supervision and RW support. ?? + Antalgia with WB through R LE, trunk flexion, decreased R LE step length, decreased R knee flexion during swing phase, absent R heel strike at initial contact, decreased R terminal knee extension during stance phase - verbal cues/demo to facilitate ideal gait quality - did note attempted corrections ?? Step to gait pattern initially with progression to step through with verbal cues/demo to faciliate Unable to tolerate further OOB activity due to progressive nausea and pain. RN aware. Ended in bed with cryocuff applied to R knee and call dean within reach. Patient/Family Education: Topic: Activity pacing/Energy conservation Assistive device/technique Bed mobility Discharge planning Equipment use Gait Home program Positioning Precautions/protocol Role of therapy Safety Transfers Learner: patient Method: verbal, demonstration and tactile cues Barriers to Learning: none noted Outcome: verbalized understanding Team Communication: Updated RN and watch case polisher re: PT findings/recommendations. Assessment/Plan Assessment Patient motivated and participatory. Demonstrated more OOB progress today vs yesterday, but functional progression limited this am by ongoing nausea and increased pain POD 2. Discussed in greater detail the level of assist she will have available to her at home - highly recommended to patient that she recruit more help during day/early evening hrs - patient agreed that she will need more assistance than she initially anticipated. She plans to call her son to ask him if he can stay with her for the first few days at home - does not anticipate this will be a problem. Patient is not ready for d/c home from a PT standpoint today. However, do anticipate d/c home on POD 3 pending functional goals met, activity tolerance improved and patient can solidify increased support at home. trucking manager updated. Plan Continue per plan of care Recommended Discharge Destination: Home with family Recommended Discharge Services: Home health physical therapy Recommended Equipment Needs: Patient has all necessary equipment Other recommendations: No other consults recommended at this time Pager: [phone] Tessa Mary, PT 10/30/2019 9:56 * Russel Otto MD - 10/30/2019 0808 EDT POD#2 s/p R TKA S: Patient doing well. Pain is worse today than yesterday, likely secondary to nerve block wearing off.. Patient is tolerating PO diet well. + flatus. - BM. Patient denies fevers/chills, cough, urinary symptoms, chest pain, SOB, abd pain, dizziness, calf pain or numbness/tingling. No nausea or vomiting currently. Was nauseated last PM and with PT, associated with increased knee pain. She was alsovery concerned regarding diastolic blood pressure yesterday. Dr. Otto and I spoke with her and reassured her. She was asymptomatic, but was give IVF bolus, as she had N/V+ the day prior after procedure. BP meds were held. O: BP 136/74 (BP Cuff Location: Left arm, BP Patient Position: Semi fowlers) Pulse 66 Temp 36.7 ??C (98.1 ??F) (Tympanic) Resp 17 Ht 160 cm (63) Wt 88.5 kg (195 lb) SpO2 92% BMI 34.54 kg/m?? Patient AAO x 3, NAD CV: RRR Lungs: nonlabored Abd: Soft, NTND, +BS Extremities: Dressing C/D/I, no erythema or drainage noted. No calf pain, - Ghanshyam's. N-V intact, pedal pulses palpable. Changed dressing today. New dressing applied. Incision benign, no active drainage. Ivan in place. LABS: H/H: 10.0/29.7 Bun/Cr: 14/0.69 Na: 133 K: 4.4 A/P: Patient doing well this morning, POD # 2 s/p R TKA. 1. Pain: under control with gabapentin tylenol, tramadol and robaxin. Patient would like to avoid narcotics 2. Electrolytes: mild hyponatremia. Likely SIADH. Will watch 3. DVT prophylaxis - ASA 325mg PO BID. 4. Vital signs stable 5. Nausea: will start scopolamine patch 6. PT - Cont postop protocol. 7. NIDDM: on SSI in hospital. Will transition back to PO meds upon d/c. 8. No rutherford periop. Patient voiding on own 9. DIANNA- Anticipate d/c to home with [facility] with homecare PT if cleared by PT today or tomorrow. If patient has decreased mobility and not progressing well, she may need JOHNATHAN. She would like to avoid this, as she is worried in light of the covid pandemic. She did go to rehab after L TKA. Shehas a son and daughter, as well as neighbors, who are willing to stop in, though she lives alone. Will await further recommendations from PT. In anticipation of d/c, will send Rxs electronically to [facility] in [place] Kristina Elizabeth PA-C #[id number] As the ortho attending memorial mason today I have personally rounded and met with the pt today. Questionswere answered and I have not identified any care issues other than those in the PA's progress notesfrom today. Russel Otto MD ?? * Krunal Contreras RN - 10/30/2019 0247 EDT Data: Assumed care of Pt @ 1900. Pt is POD # 2 s/p RTKA. Right knee dressing CDI, Efrain wrapped. +CSMTs in RLE, +2 DP/PT pulses. +BS, + flatus. Pt is CGA + FWW OOB. Pt is continent of bladder, voiding.Pt endorses nausea associated with pain and movement. Pain at rest 2/10, upon movement/OOB at most this shift 9/10. Goal this shift is to manage pain and promote rest. Action: Clustered care. Medicated per JUN. Assisted with repositioning and toileting as needed. Cryo-cuff maintained. VS/RR/I/O monitored. Response: Pt able to sleep well overnight with tolerable pain levels (2/10). Nausea better overnight. VSS. WCTM and intervene as necessary. KRUNAL CONTRERAS RN 10/30/2019 2:47 * Katelyn Ramesh - 10/29/2019 1551 EDT CM following. Chart reviewed. Unable to meet patient today. Complete CM assessment note to follow jose. Katelyn Ramesh RN/CCM #[id number]. D/C plan is home with home PT visits. DIANNA Wedn vs Th. Katelyn Lanza * Tessa Mary, PT - 10/29/2019 1042 EDT Rehabilitation Therapies [facility] Physical Therapy Initial Evaluation Note Date of Service: 10/29/2019 Reason for Referral: Evaluate and treat Precautions: Total knee precautions, WBTT, activity as tolerated, ambulate with assistive device SUBJECTIVE: My blood pressure has been low this morning. Pain: Location: R knee - anterior aspect Intensity: 1/10 (at present), 0/10 (at best), 4/10 (at worst) Frequency: Variable Quality: Sore, ache Aggravating factors: Mobility and ROM Alleviating factors: Rest, pain medication, ice OBJECTIVE: Patient Profile: Patient is a 74 y.o. female admitted on 10/28/2019 secondary to R TKA. The patient lives at [address] [place] [address]. Home environment Lives: Alone Caregiver Support: Part-time assist - daughter can stay with patient at night/overnight, friends and neighbors readily available and can provide a good amount of shoe parts molder support during the day/evening hrs Equipment Available: Rolling walker, Shower chair and Grab bars Home Environment: One level apartment - elevator access Prior Level of Function: Independent Services prior to admission: Outpatient PT Work/Leisure: Retired Medical/Surgical History: Current: Patient Active Problem List Diagnosis ??? History [...] replacement ??? PONV (postoperative nausea and vomiting) Past: Past Medical History: Diagnosis Date ??? Anesthesia complication severe N/V. Had local for other knee and it worked great ??? Anserine bursitis Right anserine tendinitis/bursitis ??? Arrhythmia 10/24/19 EKG NSR with 1st degree AV block ??? Back pain ??? Bilateral bunions ??? Colon cancer ([facility]) cancerous polyp removed Apr 2005 ??? Colon polyp ??? Complication of anesthesia nausea ??? Diabetes mellitus ([facility]) 10/18/19 A1C 6.5 . Fs daily 120 [...] & vomiting ??? Obesity ??? Rectal cancer ([facility]) stage 1 colo rectal cancer Past Surgical History: Procedure Laterality Date ??? COLON SURGERY colon polyp removed ??? COLONOSCOPY ??? JOINT REPLACEMENT left knee ??? TONSILLECTOMY ??? TUBAL LIGATION Medications: Medications reviewed Arousal, Attention, and Cognition: Orientation: Alert Oriented to person, place, and time Pleasant and cooperative Cardiopulmonary: Hypotensive this am - appropriate hemodynamic response with activity Supine pre activity: BP 92/59 mmHg Seated: BP 97/56 mmHg Standing: BP 105/75 mmHg Integumentary/Anthropometric Characteristics: Palpation/Observation: Skin: R knee incision not evaluated - efrain wrap CDI Edema: Throughout R LE Posture: Forward head and Protracted shoulders Range of Motion and Joint Integrity: Active Range of Motion: Within normal limits except as noted Upper Quarter: Left Upper Extremity: Right Upper Extremity: Cervical Spine: Lower Quarter: Left Lower Extremity: Right Lower Extremity: R knee AAROM -10 to 75 degrees Lumbar Spine: N/E Muscle Performance: Strength: Formal resistive muscle testing was not performed post op Upper Quarter: Left Upper Extremity: > 4/5 all major muscle groups Right Upper Extremity: > 4/5 all major muscle groups Cervical Spine: N/E Lower Quarter: Left Lower Extremity: > 4/5 hip flexion, knee extension, ankle DF Right Lower Extremity: Able to perform anti gravity SLR unassisted Lumbar Spine: N/E Sensation, Reflexes, and Nerve Integrity: Light Touch Sensation: Upper Quarter: Intact C2-T1 Lower Quarter: Diminished anterior aspect R thigh/knee in setting of femoral nerve block Neuromotor Function/Development: No problems noted Balance, Locomotion, and Gait: Balance: Intact unsupported static/dynamic sitting balance No loss of balance observed in standing WITH rolling walker support Locomotion: Not evaluated as wheelchair mobility does not apply to this patient Gait: Stepped laterally along EOB with min contact assist of 1 and RW support. Patient then advanced 3 steps forward away from bed with min contact assist of 1 and RW support - patient complaining of onset of nausea and light headedness - returned to bed/deferred further activity - patient actively dry heaving/vomiting. RN notified - in to assess/provide support. Self-Care, Home Management, Work, and Leisure: Mobility evaluation as follows: Rolling: Independent Supine to sit: Modified independence with HOB elevated Sit to supine: Minimal contact assist of 1 with management of R LE Sit to stand: Minimal contact assist of 1 with rolling walker Stand to sit: Minimal contact assist of 1 with rolling walker Informed Consent: The patient consented to the physical therapy evaluation. The patient agrees to and understands the physical therapy treatment plan and goals. Interventions Completed Today: Physical Therapy today at: 945 Total treatment minutes: 45 minutes Time coded treatment minutes: 25 minutes Intervention included: Instructed in/performed per TKA protocol: Supine bilateral LE active: Ankle pumps x 10 reps Quad sets x 10 reps Glut sets x 10 reps SAQ x 5 reps Hip IR/ER x 5 reps Supine R LE AA: SLR x 5 reps Heel slides x 10 reps using sheet to self facilitate increased knee ROM Hip abduction/adduction x 5 reps Seated R LE AA: Knee flexion x 5 reps LAQ x 5 reps Verbal/tactile cues, demo and handout to facilitate slow/controlled technique, muscle group isolation, increased R knee ROM as tolerated, program compliance. Therapeutic activity: Verbal/tactile cues provided during bed mobility transitions to facilitate upper/lower quarter sequencing, activity pacing, paced breathing strategies. Provided with/fitted to RW - instructed in safe technique via verbal cues/demo. Verbal/tactile cues provided during sit to stand to sit transfers to facilitate device positioning,R foot placement, optimal bilateral hand placement, anterior weight shift, controlled descent. Verbal cues provided during side stepping and when advancing forward to facilitate device positioning, upright posture, gait sequencing. Patient/Family Education: Topic: Activity pacing/Energy conservation Assistive device/technique Bed mobility Breathing exercises Discharge planning Equipment use Gait Home program Positioning Precautions/protocol Role of therapy Safety Transfers Learner: patient Method: verbal, handout, demonstration and tactile cues Barriers to Learning: none noted Outcome: needs practice and verbalized understanding Team Communication: Discussed current mobility status with nursing for patient to mobilize throughout the day as tolerated with nursing staff assist. Discharge recommendations discussed with watch case polisher. ASSESSMENT: Upper Quarter Screen: No positive findings. However, given new use of assistive device this patienthas been instructed in proper use of UEs during mobility in order to prevent overuse injuries. Physical Therapy Diagnosis: Pain, decreased ROM, decreased strength, decreased endurance/aerobic capacity, decreased standing balance, impaired functional mobility status, gait deviations. Physical Therapy Prognosis: Patient tolerated the initiation of therapeutic exercise and mobilty challenges with adequate pain control and appropriate hemodynamic response despite lower BP readings this am. Nausea and light headedness limited functional progression. However, do anticipate that patient will make steady gains per clinical pathway and have good functional outcome upon discharge. Recommend discharge home with shoe parts molder support and home health services within two to three days pending medical stability. Skilled physical therapy is indicated in this setting for therapeutic exercise, therapeutic activity and gait training to maximize functional independence and branch sales and service representative outcome. No barriers to progress expected once symptoms resolve. 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 Independent with bed mobility transitions demonstrating appropriate sequencing/motor planning. ?? Modified independence with transfers with rolling walker ?? Modified independence with gait 100-250 feet with the least restrictive assistive device with step through gait pattern and heel strike ?? The patient/caregiver will be aware of the recommendations provided and demonstrate an appropriate technique/understanding of the recommendations ?? Modified independence with home exercise program with handout reference ?? The patient will demonstrate knee AAROM 5-90 degrees PLAN: Treatment/Intervention: Physical therapy will be provided by physical therapist and/or physical therapist dietary assistant when medically appropriate. Frequency: QD - BID as appropriate Intensity: 30-45 minutes Duration: During hospitalization Interventions may include:Therapeutic exercises, Therapeutic activities and Gait training Patient/family education: Discharge planning, Equipment, Family training as appropriate, Precautions, Recommendations, Role of physical therapy/rehabilitation, Safety Further Data: NA Recommended Discharge Destination: Home with shoe parts molder family/friend/neighbor support Recommended Discharge Services: Home health physical therapy Recommended Equipment Needs: Patient has all necessary equipment Other recommendations: No other consults recommended at this time Pager: [phone] Tessa Mary PT, 10/29/2019, 10:42 * Tessa Mary, PT - 10/29/2019 1041 EDT [facility] Rehabilitation Therapy Acute Therapy [facility] Physical Therapy Contact Note Date of Service: 10/29/2019 PT consult received, chart reviewed, evaluation completed. Full note to follow. Anticipate d/c home with shoe parts molder family/friend support and follow up home PT. Tessa Mary, PT 10/29/2019 10:41 * Russel Otto MD - 10/29/2019 0805 EDT POD#1 s/p R TKA S: Patient doing well. Pain is well controlled. Patient is tolerating PO diet well. + flatus. - BM.Patient denies fevers/chills, cough, urinary symptoms, chest pain, SOB, abd pain, dizziness, calf pain or numbness/tingling. - nausea, - vomiting today. Had some N/V last evening, but better now. O: BP 110/54 (BP Cuff Location: Left arm, BP Patient Position: Semi fowlers) Pulse 66 Temp 36.4 ??C (97.5 ??F) (Tympanic) Resp 16 Ht 160 cm (63) Wt 88.5 kg (195 lb) SpO2 95% BMI 34.54 kg/m?? Patient able to void on own Patient AAO x 3, NAD CV: RRR Lungs: nonlabored Abd: Soft, NTND, +BS Extremities: Dressing C/D/I, no erythema or drainage noted. No calf pain, - Ghanshyam's. N-V intact, pedal pulses palpable. - active drainage. Ivan in place. LABS: H/H: 9.5/28.7 Bun/Cr: 20/0.66 Na: 134 K: 4.3 A/P: Patient doing well this morning, POD # 1 s/p R TKA. 1. Pain: under control with gabapentin, tylenol, tramadol and robaxin. Patient would like to avoid strong narcotics. 2. Electrolytes: mild hyponatremia, likely secondary to SIADH. Will watch 3. DVT prophylaxis - ASA 325mg PO BID. 4. Vital signs stable 5. PT - Cont postop protocol. 6. NIDDM - Sliding scale insulin while in hospital, resume PO meds upon d/c 7. DIANNA- Anticipate d/c to home with [facility] on Monday if cleared by PT and medically stable. Kristina Elizabeth PA-C #[id number] As the ortho attending memorial mason today I have personally rounded and met with the pt today. Questionswere answered and I have not identified any care issues other than those in the resident progress notes from today. Russel Otto MD ?? * Reagan Maria - 10/28/2019 1820 EDT Spiritual Care Note Re: Aretha Garcia : 1945, AGE: 74 y.o. Room: [facility]/[id number] Aretha Garcia who is listed as Hinduism has received a visit from the Spiritual Care Department on 10/28/2019. Need/Assessment: ?? Pt has her knee surgery done this noon. Pt said procedure went well and she's getting ready for PT probably from tomorrow. Pt sounded optimistic on the phone. Surgical Technologist offered some encouragements and listening support Plan of Action: No Follow up necessary - Needs met Continued Family Support Continued Support from Surgical Technologist following patient Make a Referral to: Continued Support with Volunteer Visits Connect with Community Supports Ask for a consult from: Other: Visit Initiated by: Referral Time: End of Life / Comfort Care / Hospice Urgent Request - Time: 4 Level of Visit Services Provided: Anointing of Sick x Prayer Communion Relaxation through music Assist Advanced Directives Integrative therapies Assist Decision Making [place] and Prayer at dying Exploration of Ethical issues Present at time of Family Support Other Chaplain Brody BRIGHT 131 Phone [phone] Spiritual Care is available 24 hours a day. Chaplains are available 24 hours a day. For routine consults please call and leave a message with the [facility] Care Office ([phone]) and patients will be seen within 24 hours. For all emergent consults page the Zoroastrian or Interfaith on-call Surgical Technologist through [facility] ([phone]). documented in this encounter H&P Notes * Kristina Elizabeth PA-C - 10/28/2019 1140 EDT The preoperative history and physical which was performed within 30 days of this procedure has been reviewed and the clinically appropriate elements of the physical examination have been repeated. There are no changes to the documented history and physical or if so such changes are documented below Kristina Elizabeth PA-C 10/28/2019 11:40 Cosigned by Russel Otto MD at 10/28/2019 11:57 EDT Source Note - RECOVERY COACH, SCAN 2 - 10/22/2019 15:03 EDT documented in this encounter OR Notes * OR Surgeon - Russel Otto MD - 10/28/2019 0000 EDT OPERATIVE REPORT SERVICE DATE: 10/28/2019 PREOPERATIVE DIAGNOSIS: Right knee osteoarthrosis. POSTOPERATIVE DIAGNOSIS: Right knee osteoarthrosis. PROCEDURE: Right total knee arthroplasty with patelloplasty. SURGEON: Russel Otto MD FUEL CELL DESIGNER: Kristina Elizabeth PA-C (A PA dietary assistant was required to help with leg positioning, protectvascular and neurovascular structures, and assist with closure and generalized patient care. No supply chain vice president of adequate training was available given caseload numbers and resident number ratiosat this institution.) IV FLUIDS: Infusion of lactated Ringer's, approximately 800 mL. ESTIMATED BLOOD LOSS: 50 mL or less. TOURNIQUET TIME: On the right thigh at 275 mmHg was 78 minutes, 2 g of Kefzol were given IV. ANESTHESIA: Spinal. TXA was used pre and post-tourniquet and IrriSept and soaked was used for a minute and post-implantation. IMPLANTS: 1. Briseyda II right nonporous tibial baseplate size 4. 2. A size 5 right posterior stabilized Legion Oxinium femoral component. 3. An 11 mm thickness, size 3 to 4 lesion PLXE high flexion articular insert. 4. Tobramycin bone cement. INDICATIONS: This is a female with progressive pain and deformity with varus arthrosis, not responsive to conservative care including medications, injection therapy, elected for operative intervention with x-rays that showed severe varus arthrosis, spurring and eburnation. She had no preoperative patellofemoral generated pain it appeared. COUNTS: Correct. DRAINS: None. DISPOSITION: Stable to recovery. COMPLICATIONS: None. NARRATIVE: After being carefully identified, and seen preoperatively by the anesthesia service and me the patient was brought to the operating room. Preoperative IV antibiotics were given at an appropriate time. Anesthesia was obtained by the anesthesia staff to an adequate level. A well-padded tourniquet was placed on the upper thigh. All bony prominences were well padded as patient was carefully positioned. The leg was prepped and draped in the usual sterile fashion. Time out was performed for patient, site and procedure. The leg was exsanguinated and tourniquet inflated as described. A longitudinal incision was made centered over the patella through skin and subcu to the retinaculum. A medial parapatellar retinacular incision was made and patella carefully everted. The patellar cartilage was assessed and excess spurs removed from the patella and pericircumferential electrocoagulation done in the superficial layers about the patella synovium. 1. Patellaplasty/replacement. The patella tracked nicely after removal of the spurs both later whenchecked with the trials and the final implants. The custom Visionaire cutting guide was placed first on the femur in the appropriate position. It seated well and nicely. It was pinned in place, after determining the epicondylar axis and the distance of the distal cut then the metal saw guide was placed over the pins appropriately, the distal cutmade with appropriate retractors in place, held by the dietary assistant to protect the soft tissues and neurovascular structures. Then the 4-in-1 cutting block was placed appropriately at the appropriate position along the epicondylar axis and the size had been determined preoperatively and cuts were madefor the 4-in-1 cutting guide with the anterior cut, posterior cut, posterior chamfer and the anterior chamfer, then the box cuts were made using the drill and box cutters in both positions. The trialfemur was felt to fit excellently and nicely and I was very pleased with this. Then, attention was turned to the tibia, an appropriate posterior retractor was added, now with release of the cruciatesand joined the retractors medially and laterally. The tibial [employer] guide was carefully placed along the anterior bony anatomy and on the plateaus. This was pinned in place and then the guide removed and the metal guide placed over the pins appropriately. A tibial cut was made after checking the longitudinal alignment and angular alignment anddepth. Excess spurs were removed and I was pleased with this. Rotational alignment was determined on the tibia, with the guide carefully pinned in place and the keel carefully punched. The tibial andfemoral trials were placed along with an appropriate insert and soft tissues were balanced. The patella tracked excellently and nicely after the trials were placed. Range of motion was excellent and full and with the soft tissues balanced the knee was felt to be stable and stress tested. At this point the trials were removed and thorough irrigation was performed deeply with removal of all loose bony and chondral elements and soft tissue elements. Then a thorough drying was performed and with appropriate cement mixing technique the final implants were cemented in place. First the tibia prosthesis was implanted and then the femur cemented in place as well. A trial reduction was performed with the tibial tray insert and the cement allowed to harden with the leg in extension. Once the cement was fully hardened, any excess cement chips were removed. The range of motion was felt krunal excellent and the knee stable with these implants in place. At this point, a mixture of injectable anesthetic agents and saline was injected into the soft tissue and the capsule to reduce postoperative pain, aspirating carefully to assure no vascular injection. With the final tibial insert placed and secured, excellent tracking was noted in the patella, full range of motion from extension to 140 degrees of flexion with good stability in the knee, felt to be excellent in extension and slight flexion. I was very pleased and final irrigation was performed deeply. IrriSept was used to irrigate and soak the wound prior to and after implantation of the implants. The deep layer was closed with a mixture of #1 PDS and #1 Stratafix PDS symmetrical knotless tissuecontrol device in a running fashion and locking above and below. Irrigation was again performed in this layer. Then subcuticular and subcutaneous layers were closed with 2-0 Monocryl and then stapleswere used to close the skin. Sterile compression dressing was placed. Tourniquet was released and all digits pinked up well x5 on the affected extremity and there were no complications. Venodynes were placed on this leg now, as they had been placed on the contralateralleg prior to the case. No Rutherford catheter was required. The patient was taken to the recovery room in stable condition. It should be noted that TXA was used pre and post-tourniquet as well. Unless otherwise noted, there were no complications, no blood loss, no cultures obtained, no specimens removed, and no drains retained. Russel Otto MD 02 21 PM / Russel Otto MD ln Confirmation: [id number] Dictation ID: [id number] documented in this encounter Miscellaneous Notes * Plan of Care - Laurel Harper RN - 10/31/2019 1235 EDT Problem: Daily Care Plan Goals Goal: Care Plan Documentation Flowsheets (Taken 10/31/2019 1939) Area of Focus: Discharge Plan Goal This Shift: discharge pt Data: Pt tolerating PO intake without N/V, ambulating in hallway well tolerated. D/C order in place. Action: SL d/c'd without complications. VSS. BP (!) 149/76 (BP Cuff Location: Left arm, BP Patient Position: Semi fowlers) Comment: александр kraft notified Pulse 66 Temp 36.2 ??C (97.2 ??F) (Tympanic) Resp 16 Ht 160 cm (63) Wt 88.5 kg (195 lb) SpO2 91% BMI 34.54 kg/m?? Education provided: Wound care. Rx reviewed. Report called to Kya at [facility]. Response: Pt verbalized understanding and demonstrated all education and instructions. Pt left floor at 1300 in W/C with Pt support. * Plan of Care - Laurel Harper RN - 10/30/2019 1631 EDT Problem: Daily Care Plan Goals Goal: Care Plan Documentation Flowsheets (Taken 10/30/2019 0809) Area of Focus: Mobility Goal This Shift: pt ambulates during shift Data: Pt POD 2 RTKA. Pt having Nausea during shift. Failed PT. Discharged delayed till tomorrow. Action: Assisted Pt with ambulation in room, x1A. Pain and Nausea an issue. Administered medications per MAR. Response: of this writing, OT rating pain 2/10. Pt stating that she is comfortable. Nausea improved after Scopolamine patch place behind Left ear. LAUREL HARPER RN 10/30/2019 16:32 * Plan of Care - Tiffanie Best RN - 10/29/2019 0735 EDT Resting in bed, physical assessment completed, pt is alert/oriented x 3. Denies numbness/tingling, denies need for pain medication at this time, call light in reach, ice water given, will continue tomonitor. * Plan of Care - Sara Rapp RN - 10/28/2019 1802 EDT Data: Pt arrived to [facility] 6-102 from PACU s/p R TKA in stable condition with IV fluids running, O22L via NC, and cryocuff on R knee. Pt c/o no pain at this time. CSMTs + to BLE. Pt c/o some nausea.Pt able to take in po fluids, and is ordering dinner. Pt has not voided or been OOB yet; DTV at 2019. Action: Assessment completed and VS recorded. Pt medicated as ordered. Pt oriented to hospital and unit. Daughter, Ne, updated via phone with pt's permission. Response: Pt reports being comfortable at this time. Currently resting in bed, call dean in reach. Will continue to monitor. SARA RAPP RN 10/28/2019 18:02 * Brief Op Note - Kristina Elizabeth PA-C - 10/28/2019 1142 EDT Brief Post-Op Note Date of Surgery: 10/28/2019 Surgeon: Russel Otto MD Installations Inspector: DEEPIKA Fuentes Pre-Op Diagnosis: right knee arthritis Post-Op Diagnosis: same Procedure(s): right total knee arthroplasty Anesthesia Type: Spinal and IV Sedation Estimated Blood Loss: 50cc IVF: 800cc LR Tourniquet: Tourniquet was inflated at 265mmHg for 78 total minutes Drains/Packs: None Complications: none Specimens/Cultures: None Disposition and Condition: Aretha Garcia was sent to PACU in Stable condition. Patient's pain is likely to require medications immediately post-operatively that may exceed the recommended MME. Post-operative narcotics will reflect the level of pain anticipated for the first 1-2weeks after surgery. Kristina Elizabeth PA-C 10/28/2019 11:42 documented in this encounter Plan of Treatment Upcoming Encounters Date Type Department Care Team (Latest Contact Info) Description 03/27/2024 14:25 [facility] Hospital Encounter [facility] [place] [address] [place] [address] [id number] Vishal Castillo MD [address] [place] [phone] 03/27/2024 14:25 EST - 03/27/2024 17:55 EST Surgery [facility] OR [address] [place] [address] [id number] Vishal Castillo MD [address] [place] [phone] Left Reverse Total Shoulder Arthroplasty [32750 (CPT??)] 04/08/2024 15:30 EST Post-op Visit [facility] - [facility] [address] [facility] [place] [address] Vishal Castillo MD [address] [place] [phone] Scheduled Procedures Name Priority Associated Diagnoses Date/Ti me ARTHROPLASTY, SHOULDER, TOTAL Left rotator cuff tear arthropathy 03/27/2024 14:25 EST Scheduled Referrals Name Type Priority Associated Diagnoses Order Schedule PROVIDER FOLLOW-UP INSTRUCTIONS Outpatient Referral Routine Ordered: 10/28/2019 PROVIDER FOLLOW-UP INSTRUCTIONS Outpatient Referral Routine Ordered: 10/28/2019 AMB CONS/FOLLOW UP HOME HEALTH SERVICES Outpatient Referral Routine S/P total knee arthroplasty, right Ordered: 10/28/2019 documented as of this encounter Procedures Procedure Name Priority Date/Time Associated Diagnosis Comments IMPLANT RECORD - SCANNED 11/11/2019 15:11 EDT IMPLANT RECORD - SCANNED 11/11/2019 15:11 EDT POCT GLUCOSE, INTERFACED Routine 10/31/2019 7:39 EDT COMPLETE BLOOD COUNT Routine 10/31/2019 5:09 EDT BUN Routine 10/31/2019 5:09 EDT GLUCOSE, SERUM Routine 10/31/2019 5:09 EDT CREATININE Routine 10/31/2019 5:09 EDT ELECTROLYTES Routine 10/31/2019 5:09 EDT POCT GLUCOSE, INTERFACED Routine 10/30/2019 22:23 EDT POCT GLUCOSE, INTERFACED Routine 10/30/2019 17:25 EDT POCT GLUCOSE, INTERFACED Routine 10/30/2019 12:05 EDT POCT GLUCOSE, INTERFACED Routine 10/30/2019 8:19 EDT COMPLETE BLOOD COUNT Routine 10/30/2019 5:27 EDT BUN Routine 10/30/2019 5:27 EDT GLUCOSE, SERUM Routine 10/30/2019 5:27 EDT CREATININE Routine 10/30/2019 5:27 EDT ELECTROLYTES Routine 10/30/2019 5:27 EDT POCT GLUCOSE, INTERFACED Routine 10/29/2019 21:37 EDT POCT GLUCOSE, INTERFACED Routine 10/29/2019 17:33 EDT POCT GLUCOSE, INTERFACED Routine 10/29/2019 11:45 EDT POCT GLUCOSE, INTERFACED Routine 10/29/2019 7:29 EDT COMPLETE BLOOD COUNT Routine 10/29/2019 6:31 EDT BUN Routine 10/29/2019 6:31 EDT GLUCOSE, SERUM Routine 10/29/2019 6:31 EDT CREATININE Routine 10/29/2019 6:31 EDT ELECTROLYTES Routine 10/29/2019 6:31 EDT POCT GLUCOSE, INTERFACED Routine 10/28/2019 19:16 EDT POCT GLUCOSE, INTERFACED Routine 10/28/2019 14:51 EDT XR KNEE RIGHT 1-2 VIEWS Routine 10/28/2019 14:19 EDT ARTHROPLASTY, KNEE, TOTAL 10/28/2019 12:03 EDT Primary osteoarthritis of right knee Special Needs vision[employer]re POCT GLUCOSE, INTERFACED Routine 10/28/2019 11:13 EDT POC US ANESTHESIA NERVE BLOCK ADDUCTOR CANAL Routine 10/28/2019 8:07 EDT ECG REPORT - SCANNED 10/22/2019 15:03 EDT documented in this encounter Results * IMPLANT RECORD - SCANNED (11/11/2019 15:11 EDT) 11/11/2019 15:1 1 EDT us Scan 2 Manager Department PROCEDURE/MINOR SURGICAL OR DERABLES Final Result * IMPLANT RECORD - SCANNED (11/11/2019 15:11 EDT) 11/11/2019 15:1 1 EDT us Scan 2 Manager Department PROCEDURE/MINOR SURGICAL OR DERABLES Final Result * (ABNORMAL) POCT GLUCOSE, INTERFACED (10/31/2019 7:39 EDT) Glucose, POC 152(H) 70 - 100 mg/dL 10/31/2019 8:01 EDT [facility] veterinary medicine scientist ID [id number] 10/31/2019 8:01 EDT [facility] HN LAB POC COMMENT (GLUCOSE) Test Performed by Nursing Services 10/31/2019 8:01 EDT [facility] Blood CAPILLARY BLOOD / Unknown 10/31/2019 7:39 EDT 10/31/2019 8:01 EDT us Kristina Elizabeth PA-C POINT OF CARE TEST ORDERA BLES Final Result [facility] [address] [place] [address] * (ABNORMAL) COMPLETE BLOOD COUNT (10/31/2019 5:09 EDT) WBC 9.81 4.00 - 12.40 K/cmm 10/31/2019 6:06 EDT [facility] RBC 3.40(L) 3.86 - 5.04 M/cmm 10/31/2019 6:06 [facility] Hemoglobin 9.3(L) 11.6 - 15.2 gm/dL 10/31/2019 6:06 [facility] HCT 28.8(L) 34.9 - 44.4 % 10/31/2019 6:06 [facility] MCV 85 81 - 98 fl 10/31/2019 6:06 [facility] MCH 27.4 26.7 - 33.3 pg 10/31/2019 6:06 [facility] MCHC 32.3 32.1 - 35.9 gm/dL 10/31/2019 6:06 [facility] RDW-CV 13.5 <14.7 % 10/31/2019 6:06 [facility] RDW-SD 41.7 <50.4 fl 10/31/2019 6:06 [facility] PLT 207 141 - 377 K/cmm 10/31/2019 6:06 [facility] MPV 10.1 9.5 - 12.7 fl 10/31/2019 6:06 [facility] Blood VENOUS BLOOD / Unknown Venipuncture / Unknown 10/31/2019 5:09 EDT 10/31/2019 5:55 EDT Kristina Elizabeth PA-C HEMATOLOGY & PF4 ORDERABL ES Final Result [facility] [address] [place] [address] * (ABNORMAL) GLUCOSE, SERUM (10/31/2019 5:09 EDT) Glucose 123(H) 70 - 100 mg/dL 10/31/2019 6:35 T [facility] Blood VENOUS BLOOD / Unknown Venipuncture / Unknown 10/31/2019 5:09 EDT 10/31/2019 6:02 EDT Kristina CARREON-C CHEMISTRY & BLOOD GAS ORD ERABLES Final Result [facility] [address] [place] [address] * (ABNORMAL) ELECTROLYTES (10/31/2019 5:09 EDT) Sodium 132(L) 136 - 145 mEq/L 10/31/2019 7:24 EDT [facility] Potassium 4.1 3.5 - 5.0 mEq/L 10/31/2019 7:24 EDT [facility] Chloride 98 96 - 110 mEq/L 10/31/2019 7:24 EDT [facility] CO2 Total 27 22 - 32 mEq/L 10/31/2019 7:24 EDT [facility] Blood VENOUS BLOOD / Unknown Venipuncture / Unknown 10/31/2019 5:09 EDT 10/31/2019 6:02 EDT Kristina CARREON-C CHEMISTRY & BLOOD GAS ORD ERABLES Final Result Performing Organization Address [facility] Co de Phone Number [facility] [address] [place] [id number] * CREATININE (10/31/2019 5:09 EDT) Creatinine 0.64 0.52 - 1.04 mg/dL 10/31/2019 6:35 EDT [facility] eGFR 89 >60 mL/min/1.7 3m2 10/31/2019 6:35 EDT [facility] Comment:eGFR calculated sergio burgess CKD-EPI equation for non- Americans. Multiply eGFR by 1.16 for patients. Blood VENOUS BLOOD / Unknown Venipuncture / Unknown 10/31/2019 5:09 EDT 10/31/2019 6:02 EDT Kristina Elizabeth PA-C CHEMISTRY & BLOOD GAS ORD ERABLES Final Result [facility] [address] [place] [address] * BUN (10/31/2019 5:09 EDT) BUN 14 10 - 26 mg/dL 10/31/2019 6:35 EDT [facility] Blood VENOUS BLOOD / Unknown Venipuncture / Unknown 10/31/2019 5:09 EDT 10/31/2019 6:02 EDT Kristina Elizabeth PA-C CHEMISTRY & BLOOD GAS ORD ERABLES Final Result [facility] [address] [place] [address] * (ABNORMAL) POCT GLUCOSE, INTERFACED (10/30/2019 22:23 EDT) Glucose, POC 171(H) 70 - 100 mg/dL 10/30/2019 22:24 EDT [facility] veterinary medicine scientist ID [id number] 10/30/2019 22:24 EDT [facility] HN LAB POC COMMENT (GLUCOSE) Test Performed by Nursing Services 10/30/2019 22:24 EDT [facility] Blood CAPILLARY BLOOD / Unknown 10/30/2019 22:23 EDT 10/30/2019 22:24 EDT Kristina Elizabeth PA-C POINT OF CARE TEST ORDERA BLES Final Result Performing Organization Address City/[facility]/ZIP Co de Phone Number [facility] [address] [place] [address] * (ABNORMAL) POCT GLUCOSE, INTERFACED (10/30/2019 17:25 EDT) Glucose, POC 156(H) 70 - 100 mg/dL 10/30/2019 17:26 EDT [facility] veterinary medicine scientist ID [id number] 10/30/2019 17:26 EDT [facility] HN LAB POC COMMENT (GLUCOSE) Test Performed by Nursing Services 10/30/2019 17:26 EDT [facility] Blood CAPILLARY BLOOD / Unknown 10/30/2019 17:25 EDT 10/30/2019 17:26 EDT Kristina Elizabeth PA-C POINT OF CARE TEST ORDERA BLES Final Result [facility] [address] [place] [address] * (ABNORMAL) POCT GLUCOSE, INTERFACED (10/30/2019 12:05 EDT) Glucose, POC 216(H) 70 - 100 mg/dL 10/30/2019 12:08 EDT [facility] veterinary medicine scientist ID [id number] 10/30/2019 12:08 EDT [facility] HN LAB POC COMMENT (GLUCOSE) Test Performed by Nursing Services 10/30/2019 12:08 EDT [facility] Blood CAPILLARY BLOOD / Unknown 10/30/2019 12:05 EDT 10/30/2019 12:08 EDT Kristina Brownch PA-C POINT OF CARE TEST ORDERA BLES Final Result Performing Organization Address [facility]/ZIP Co de Phone Number [facility] [address] [place] [address] * (ABNORMAL) POCT GLUCOSE, INTERFACED (10/30/2019 8:19 EDT) Glucose, POC 169(H) 70 - 100 mg/dL 10/30/2019 8:19 EDT [facility] veterinary medicine scientist ID [id number] 10/30/2019 8:19 EDT [facility] HN LAB POC COMMENT (GLUCOSE) Test Performed by Nursing Services 10/30/2019 8:19 EDT [facility] Blood CAPILLARY BLOOD / Unknown 10/30/2019 8:19 EDT 10/30/2019 8:19 EDT Kristina Brownch PA-C POINT OF CARE TEST ORDERA BLES Final Result [facility] [address] [place] [address] * (ABNORMAL) COMPLETE BLOOD COUNT (10/30/2019 5:27 EDT) WBC 10.99 4.00 - 12.40 K/cmm 10/30/2019 6:19 [facility] RBC 3.56(L) 3.86 - 5.04 M/cmm 10/30/2019 6:19 [facility] Hemoglobin 10.0(L) 11.6 - 15.2 gm/dL 10/30/2019 6:19 [facility] HCT 29.7(L) 34.9 - 44.4 % 10/30/2019 6:19 [facility] MCV 83 81 - 98 fl 10/30/2019 6:19 [facility] MCH 28.1 26.7 - 33.3 pg 10/30/2019 6:19 [facility] MCHC 33.7 32.1 - 35.9 gm/dL 10/30/2019 6:19 [facility] RDW-CV 13.2 <14.7 % 10/30/2019 6:19 [facility] RDW-SD 40.6 <50.4 fl 10/30/2019 6:19 [facility] PLT 193 141 - 377 K/cmm 10/30/2019 6:19 [facility] MPV 10.2 9.5 - 12.7 fl 10/30/2019 6:19 [facility] Blood VENOUS BLOOD / Unknown Venipuncture / Unknown 10/30/2019 5:27 EDT 10/30/2019 6:09 EDT us Kristina Elizabeth PA-C HEMATOLOGY & PF4 ORDERABL ES Final Result [facility] [address] [place] [address] * (ABNORMAL) GLUCOSE, SERUM (10/30/2019 5:27 EDT) Glucose 161(H) 70 - 100 mg/dL 10/30/2019 6:39 EDT [facility] Blood VENOUS BLOOD / Unknown Venipuncture / Unknown 10/30/2019 5:27 EDT 10/30/2019 6:11 EDT Kristina CAMERONC CHEMISTRY & BLOOD GAS ORD ERABLES Final Result Performing Organization Address [facility] de Phone Number [facility] [address] [place] [address] * (ABNORMAL) ELECTROLYTES (10/30/2019 5:27 EDT) Sodium 133(L) 136 - 145 mEq/L 10/30/2019 6:39 EDT [facility] Potassium 4.4 3.5 - 5.0 mEq/L 10/30/2019 6:39 EDT [facility] Chloride 100 96 - 110 mEq/L 10/30/2019 6:39 EDT [facility] CO2 Total 25 22 - 32 mEq/L 10/30/2019 6:39 EDT [facility] Blood VENOUS BLOOD / Unknown Venipuncture / Unknown 10/30/2019 5:27 EDT 10/30/2019 6:11 EDT Kristina Elizabeth PA-C CHEMISTRY & BLOOD GAS ORD ERABLES Final Result Performing Organization Address [facility] de Phone Number [facility] [address] [place] [address] * CREATININE (10/30/2019 5:27 EDT) Creatinine 0.69 0.52 - 1.04 mg/dL 10/30/2019 6:39 EDT [facility] eGFR 87 >60 mL/min/1.7 3m2 10/30/2019 6:39 EDT [facility] Comment:eGFR calculated sergio burgess CKD-EPI equation for non- Americans. Multiply eGFR by 1.16 for patients. Blood VENOUS BLOOD / Unknown Venipuncture / Unknown 10/30/2019 5:27 EDT 10/30/2019 6:11 EDT Kristina Elizabeth PA-C CHEMISTRY & BLOOD GAS ORD ERABLES Final Result [facility] [address] [place] [address] * BUN (10/30/2019 5:27 EDT) BUN 14 10 - 26 mg/dL 10/30/2019 6:39 EDT [facility] Blood VENOUS BLOOD / Unknown Venipuncture / Unknown 10/30/2019 5:27 EDT 10/30/2019 6:11 EDT Kristina CARREON-C CHEMISTRY & BLOOD GAS ORD ERABLES Final Result Performing Organization Address City/[facility]/ZIP Co de Phone Number [facility] [address] [place] [address] * (ABNORMAL) POCT GLUCOSE, INTERFACED (10/29/2019 21:37 EDT) Glucose, POC 196(H) 70 - 100 mg/dL 10/29/2019 21:39 EDT [facility] veterinary medicine scientist ID [id number] 10/29/2019 21:39 EDT [facility] HN LAB POC COMMENT (GLUCOSE) Test Performed by Nursing Services 10/29/2019 21:39 EDT [facility] Blood CAPILLARY BLOOD / Unknown 10/29/2019 21:37 EDT 10/29/2019 21:39 EDT Kristina CARREON-C POINT OF CARE TEST ORDERA BLES Final Result [facility] [address] [place] [address] * (ABNORMAL) POCT GLUCOSE, INTERFACED (10/29/2019 17:33 EDT) Glucose, POC 149(H) 70 - 100 mg/dL 10/29/2019 17:34 EDT [facility] veterinary medicine scientist ID [id number] 10/29/2019 17:34 EDT [facility] HN LAB POC COMMENT (GLUCOSE) Test Performed by Nursing Services 10/29/2019 17:34 EDT [facility] Blood CAPILLARY BLOOD / Unknown 10/29/2019 17:33 EDT 10/29/2019 17:33 EDT Result [facility] Kristina Elizabeth PA-C POINT OF CARE TEST ORDERA BLES Final Result Performing Organization Address [facility]/ZIP Co de Phone Number [facility] [address] [place] [address] * (ABNORMAL) POCT GLUCOSE, INTERFACED (10/29/2019 11:45 EDT) Glucose, POC 148(H) 70 - 100 mg/dL 10/29/2019 11:46 EDT [facility] veterinary medicine scientist ID [id number] 10/29/2019 11:46 EDT [facility] HN LAB POC COMMENT (GLUCOSE) Test Performed by Nursing Services 10/29/2019 11:46 EDT [facility] Blood CAPILLARY BLOOD / Unknown 10/29/2019 11:45 EDT 10/29/2019 11:46 EDT Result [facility] Kristina Elizabeth PA-C POINT OF CARE TEST ORDERA BLES Final Result Performing Organization Address [facility] Co de Phone Number [facility] [address] [place] [address] * (ABNORMAL) POCT GLUCOSE, INTERFACED (10/29/2019 7:29 EDT) Glucose, POC 155(H) 70 - 100 mg/dL 10/29/2019 7:31 EDT [facility] veterinary medicine scientist ID [id number] 10/29/2019 7:31 EDT [facility] HN LAB POC COMMENT (GLUCOSE) Test Performed by Nursing Services 10/29/2019 7:31 EDT [facility] Blood CAPILLARY BLOOD / Unknown 10/29/2019 7:29 EDT 10/29/2019 7:31 EDT Kristina Elizabeth PA-C POINT OF CARE TEST ORDERA BLES Final Result [facility] [address] [place] [address] * (ABNORMAL) COMPLETE BLOOD COUNT (10/29/2019 6:31 EDT) WBC 8.55 4.00 - 12.40 K/cmm 10/29/2019 7:26 EDT [facility] RBC 3.38(L) 3.86 - 5.04 M/cmm 10/29/2019 7:26 T [facility] Hemoglobin 9.5(L) 11.6 - 15.2 gm/dL 10/29/2019 7:26 [facility] HCT 28.7(L) 34.9 - 44.4 % 10/29/2019 7:26 [facility] MCV 85 81 - 98 fl 10/29/2019 7:26 T [facility] MCH 28.1 26.7 - 33.3 pg 10/29/2019 7:26 [facility] MCHC 33.1 32.1 - 35.9 gm/dL 10/29/2019 7:26 [facility] RDW-CV 13.2 <14.7 % 10/29/2019 7:26 [facility] RDW-SD 40.8 <50.4 fl 10/29/2019 7:26 [facility] PLT 199 141 - 377 K/cmm 10/29/2019 7:26 [facility] MPV 10.2 9.5 - 12.7 fl 10/29/2019 7:26 [facility] Blood VENOUS BLOOD / Unknown Venipuncture / Unknown 10/29/2019 6:31 EDT 10/29/2019 7:15 EDT us Kristina Elizabeth PA-C HEMATOLOGY & PF4 ORDERABL ES Final Result Performing Organization Address City/[facility]/ZIP Co de Phone Number [facility] [address] [place] [address] * (ABNORMAL) GLUCOSE, SERUM (10/29/2019 6:31 EDT) Glucose 150(H) 70 - 100 mg/dL 10/29/2019 7:31 EDT [facility] Blood VENOUS BLOOD / Unknown Venipuncture / Unknown 10/29/2019 6:31 EDT 10/29/2019 7:16 EDT Kristina CAMERONC CHEMISTRY & BLOOD GAS ORD ERABLES Final Result Performing Organization Address [facility] Co de Phone Number [facility] [address] [place] [address] * (ABNORMAL) ELECTROLYTES (10/29/2019 6:31 EDT) Sodium 134(L) 136 - 145 mEq/L 10/29/2019 7:31 EDT [facility] Potassium 4.3 3.5 - 5.0 mEq/L 10/29/2019 7:31 EDT [facility] Chloride 103 96 - 110 mEq/L 10/29/2019 7:31 EDT [facility] CO2 Total 25 22 - 32 mEq/L 10/29/2019 7:31 EDT [facility] Blood VENOUS BLOOD / Unknown Venipuncture / Unknown 10/29/2019 6:31 EDT 10/29/2019 7:16 EDT Kristina Elizabeth PA-C CHEMISTRY & BLOOD GAS ORD ERABLES Final Result [facility] [address] [place] [address] * CREATININE (10/29/2019 6:31 EDT) Creatinine 0.66 0.52 - 1.04 mg/dL 10/29/2019 7:31 EDT [facility] eGFR 88 >60 mL/min/1.7 3m2 10/29/2019 7:31 EDT [facility] Comment:eGFR calculated sergio burgess CKD-EPI equation for non- Americans. Multiply eGFR by 1.16 for patients. Blood VENOUS BLOOD / Unknown Venipuncture / Unknown 10/29/2019 6:31 EDT 10/29/2019 7:16 EDT Kristina Elizabeth PA-C CHEMISTRY & BLOOD GAS ORD ERABLES Final Result Performing Organization Address [facility]/ZIP Co de Phone Number [facility] [address] [place] [address] * BUN (10/29/2019 6:31 EDT) BUN 20 10 - 26 mg/dL 10/29/2019 7:31 EDT [facility] Blood VENOUS BLOOD / Unknown Venipuncture / Unknown 10/29/2019 6:31 EDT 10/29/2019 7:16 EDT Kristina Elizabeth PA-C CHEMISTRY & BLOOD GAS ORD ERABLES Final Result Performing Organization Address [facility] Co de Phone Number [facility] [address] [place] [address] * (ABNORMAL) POCT GLUCOSE, INTERFACED (10/28/2019 19:16 EDT) Glucose, POC 138(H) 70 - 100 mg/dL 10/28/2019 19:17 EDT [facility] veterinary medicine scientist ID [id number] 10/28/2019 19:17 EDT [facility] HN LAB POC COMMENT (GLUCOSE) Test Performed by Nursing Services 10/28/2019 19:17 EDT [facility] Blood CAPILLARY BLOOD / Unknown 10/28/2019 19:16 EDT 10/28/2019 19:17 EDT Result [facility] Kristina Elizabeth PA-C POINT OF CARE TEST ORDERA BLES Final Result Performing Organization Address [facility]/ZIP Co de Phone Number [facility] [address] [place] [address] * (ABNORMAL) POCT GLUCOSE, INTERFACED (10/28/2019 14:51 EDT) Glucose, POC 136(H) 70 - 100 mg/dL 10/28/2019 14:53 EDT [facility] veterinary medicine scientist ID [id number] 10/28/2019 14:53 EDT [facility] HN LAB POC COMMENT (GLUCOSE) Test Performed by Nursing Services 10/28/2019 14:53 EDT [facility] Blood CAPILLARY BLOOD / Unknown 10/28/2019 14:51 EDT 10/28/2019 14:53 EDT us Rosa Atkinson MD POINT OF CARE TEST OR DERABLES Final Result [facility] [address] [place] [address] * XR KNEE RIGHT 1-2 VIEWS (10/28/2019 14:19 EDT) Anatomical Region Laterality Modality Lower Extremities Right Computed Radio graphy 10/28/2019 15:1 3 EDT Impressions 10/28/2019 15:13 EDT Findings/Impression: Interval right knee arthroplasty with femoral and tibial components in good position. There is expected postprocedural air in the soft tissues about the knee and within the knee joint. Skin ivan are present anteriorly. No unexpected radiopaque foreign body is identified. I have personally reviewed the images and the above interpretation and agree with the findings. Narrative 10/28/2019 15:13 EDT XR KNEE RIGHT 1-2 VIEWS ??10/28/2019 11:30 AM Signs and Symptoms/Comments: ?? Right knee OA. S/P Right TKR. Routine post op for no count R/O FB Comparison: 05/28/2019. Technique: AP and lateral views of the right knee. Procedure Note Duglas Carmona MD - 10/28/2019 XR KNEE RIGHT 1-2 VIEWS 10/28/2019 11:30 AM Signs and Symptoms/Comments: Right knee OA. S/P Right TKR. Routine post op for no count R/O FB Comparison: 05/28/2019. Technique: AP and lateral views of the right knee. IMPRESSION Findings/Impression: Interval right knee arthroplasty with femoral and tibial components ingood position. There is expected postprocedural air in the soft tissuesabout the knee and within the knee joint. Skin ivan are presentanteriorly. No unexpected radiopaque foreign body is identified. I have personally reviewed the images and the above interpretation andagree with the findings. us Russel Otto MD IMG DIAGNOSTIC IMAGING OR DERABLES Final Result * (ABNORMAL) POCT GLUCOSE, INTERFACED (10/28/2019 11:13 EDT) Pathologist [facility] Glucose, POC 133(H) 70 - 100 mg/dL 10/28/2019 11:15 EDT [facility] veterinary medicine scientist ID [id number] 10/28/2019 11:15 EDT [facility] HN LAB POC COMMENT (GLUCOSE) Test Performed by Nursing Services 10/28/2019 11:15 EDT [facility] Blood CAPILLARY BLOOD / Unknown 10/28/2019 11:13 EDT 10/28/2019 11:15 EDT us Russel Otto MD POINT OF CARE TEST ORDERA BLES Final Result [facility] [address] [place] [address] * POC US ANESTHESIA NERVE BLOCK ADDUCTOR CANAL (10/28/2019 8:07 EDT) Narrative 10/28/2019 8:07 EDT This is a non-reportable exam. us Kiko Tee MD IMG US POC ORDERABLES Fin al Result * ECG REPORT - SCANNED (10/22/2019 15:03 EDT) 10/22/2019 15:0 3 EDT us Scan 2 Manager Department PROCEDURE/MINOR SURGICAL OR DERABLES Final Result documented in this encounter Visit Diagnoses Diagnosis Primary osteoarthritis of right knee- Primary Primary localized osteoarthrosis, lower leg S/P total knee arthroplasty, right PONV (postoperative nausea and vomiting) Nausea with vomiting Left rotator cuff tear arthropathy documented in this encounter Admitting Diagnoses Diagnosis Primary osteoarthritis of right knee Primary localized osteoarthrosis, lower leg documented in this encounter Administered Medications Inactive Administered Medications - up to 3 most recent administrations Medication Order MAR Action Action Date Dose Rate Site acetaminophen (TYLENOL) tablet 1,000 mg 1,000 mg, oral, PRE-OP ONCE, 1 dose, On Mon10/28/19 at 1130, Routine, Preprocedure Given 10/28/2019 11:16 EDT 1,000 mg acetaminophen (TYLENOL) tablet 1,000 mg 1,000 mg, oral, EVERY 6 HOURS, First dose on Mon10/28/19 at 1800, Until Discontinued, Routine Given 10/31/2019 12:18 EDT 1,000 mg Given 10/31/2019 6:10 EDT 1,000 mg Given 10/30/2019 23:34 EDT 1,000 mg ascorbic acid (vitamin C) (VITAMIN C) tablet 500 mg 500 mg, oral, DAILY WITH BREAKFAST, 10 doses, First dose on Mon10/29/19 at 0800, Last dose on Mon11/07/19 at 0800, Routine Given 10/31/2019 8:02 EDT 500 mg Given 10/30/2019 7:56 EDT 500 mg Given 10/29/2019 8:04 EDT 500 mg aspirin EC tablet 325 mg 325 mg, oral, 2 TIMES DAILY, First dose on Mon10/29/19 at 0900, Until Discontinued, Routine Given 10/31/2019 8:02 EDT 325 mg Given 10/30/2019 20:16 EDT 325 mg Given 10/30/2019 8:00 EDT 325 mg aspirin EC tablet 650 mg 650 mg, oral, NOW X1, 1 dose, On Mon10/28/19 at 2100, Routine Given 10/28/2019 21:03 EDT 650 mg atorvastatin (LIPITOR) tablet 20 mg 20 mg, oral, AT BEDTIME, First dose on Mon10/28/19 at 2100, Until Discontinued, Routine Given 10/30/2019 20:16 EDT 20 mg Given 10/29/2019 21:08 EDT 20 mg Given 10/28/2019 21:03 EDT 20 mg calcium carbonate (TUMS) 200 mg calcium (500 mg) per chewable tablet tablet,chewable 2 Tab 2 Tablet, oral, 4 TIMES DAILY PRN, Starting on Mon10/28/19 at 2039, Until Mon10/31/19 at 1516, Heartburn, Routine Given 10/30/2019 21:14 EDT 2 Tablets Given 10/28/2019 21:04 EDT 2 Tablets ceFAZolin (ANCEF) 2,000 mg in sodium chloride 0.9% 50 mL IVPB 2,000 mg, intravenous, Administer over 30 Minutes, NOW X1, 1 dose, On Mon10/28/19 at 1415, Routine, Recovery (only) Given 10/28/2019 15:55 EDT 2,000 mg ceFAZolin (ANCEF) 2,000 mg in sodium chloride 0.9% 50 mL IVPB 2,000 mg, intravenous, Administer over 30 Minutes, EVERY 8 HOURS, 2 doses, First dose on Mon10/29/19 at 0000, Last dose on Mon10/29/19 at 0800, Routine Given 10/29/2019 8:05 EDT 2,000 mg Given 10/29/2019 0:58 EDT 2,000 mg diphenhydrAMINE (BENADRYL) capsule 25 mg 25 mg, oral, EVERY 6 HOURS PRN, Starting on Mon10/28/19 at 1704, Until Mon10/31/19 at 1516, Itching, Routine diphenhydrAMINE (BENADRYL) elixir 25 mg 25 mg, oral, EVERY 6 HOURS PRN, Starting on Mon10/28/19 at 1704, Until Mon10/31/19 at 1516, Itching, Routine diphenhydrAMINE (BENADRYL) injection 25 mg 25 mg, intravenous, EVERY 6 HOURS PRN, Starting on Mon10/28/19 at 1704, Until Mon10/31/19 at 1516, Itching, Routine docusate sodium (COLACE) capsule 200 mg 200 mg, oral, 2 TIMES DAILY, First dose on Mon10/28/19 at 2100, Until Discontinued, Routine Given 10/31/2019 8:02 EDT 200 mg Given 10/30/2019 20:16 EDT 200 mg Given 10/30/2019 8:00 EDT 200 mg gabapentin (NEURONTIN) capsule 200 mg 200 mg, oral, DAILY WITH LUNCH, First dose on Mon10/29/19 at 1200, Until Discontinued, Routine Given 10/31/2019 1 2:17 EDT 200 mg Given 10/30/2019 11:47 EDT 200 mg Given 10/29/2019 12:01 EDT 200 mg gabapentin (NEURONTIN) capsule 300 mg 300 mg, oral, AT BEDTIME, First dose on Mon10/28/19 at 2100, Until Discontinued, Routine Given 10/30/2019 20:16 EDT 30 0 mg Given 10/29/2019 21:08 EDT 300 mg Given 10/28/2019 21:03 EDT 300 mg gabapentin (NEURONTIN) capsule 900 mg 900 mg, oral, PRE-OP ONCE, 1 dose, On Mon10/28/19 at 1200, Routine, Preprocedure Given 10/28/2019 11:53 EDT 900 mg HYDROmorphone (DILAUDID) tablet 2 mg 2 mg, oral, Once (Without Time Specified), 1 dose, Starting on Mon10/30/19 at 2242, Until Mon10/31/19 at 1516, Routine insulin aspart U-100 (NOVOLOG FLEXPEN) injection subcutaneous, 3 TIMES DAILY WITH MEALS, First dose on Mon10/28/19 at 1730, Until Discontinued, Routine Given 10/31/2019 8:02 EDT 2 Units Given 10/30/2019 17:26 EDT 2 Units Given 10/30/2019 12:06 EDT 5 Units lactated ringers (LR) infusion at 25 mL/hr, intravenous, CONTINUOUS, Starting on Mon10/28/19 at 1130, Until Mon10/29/19 at 1040, Routine, Preprocedure Continued by Anesthesia 10/28/2019 12:07 EDT New Bag 10/28/2019 11:25 EDT 25 mL/hr lactated ringers BOLUS 500 mL 500 mL, intravenous, NOW X1, 1 dose, On Mon10/29/19 at 1100, Routine Given 10/29/2019 10:43 EDT 500 mL lisinopriL (PRINIVIL) tablet 40 mg 40 mg, oral, DAILY, First dose on Mon10/28/19 at 1730, Until Discontinued, Routine Given 10/29/2019 8:04 EDT 40 mg Given 10/28/2019 19:25 EDT 40 mg methocarbamoL (ROBAXIN) tablet 750 mg 750 mg, oral, 4 TIMES DAILY, First dose on Mon10/28/19 at 2100, Until Discontinued, Routine Given 10/31/2019 12:18 EDT 75 0 mg Given 10/31/2019 8:02 EDT 750 mg Given 10/30/2019 23:34 EDT 750 mg metoprolol XL (TOPROL-XL) tablet 50 mg 50 mg, oral, 2 TIMES DAILY, First dose on Mon10/28/19 at 2100, Until Discontinued, Routine Given 10/29/2019 8:04 EDT 50 mg Given 10/28/2019 21:03 EDT 50 mg ondansetron (PF) (ZOFRAN) injection 4 mg 4 mg, intravenous, EVERY 6 HOURS PRN, Starting on Mon10/28/19 at 1704, Until Mon10/30/19 at 0307, Nausea, Routine Given 10/29/2019 20:56 EDT 4 mg ondansetron (PF) (ZOFRAN) injection 4 mg 4 mg, intravenous, PRN, 1 dose, Starting on Mon10/28/19 at 1359, Until Mon10/28/19 at 1635, Nausea, Vomiting, Routine, Recovery (only) Given 10/28/2019 16:35 EDT 4 m g ondansetron (PF) (ZOFRAN) injection 4 mg 4 mg, intravenous, EVERY 4 HOURS PRN, Starting on Mon10/30/19 at 0305, Until Mon10/31/19 at 1516, Nausea, Routine ondansetron (ZOFRAN-ODT) disintegrating tablet 4 mg 4 mg, oral, EVERY 4 HOURS PRN, Starting on Mon10/30/19 at 0305, Until Mon10/31/19 at 1516, Nausea, Routine Given 10/30/2019 5:31 EDT 4 mg pantoprazole (PROTONIX) tablet 40 mg 40 mg, oral, DAILY, First dose on Mon10/28/19 at 1730, Until Discontinued, Routine Given 10/31/2019 8:03 EDT 40 mg Given 10/30/2019 8:00 EDT 40 mg Given 10/29/2019 8:04 EDT 40 mg polyethylene glycol 3350 (MIRALAX) packet 17 g 17 g, oral, DAILY, First dose on Mon10/29/19 at 0900, Until Discontinued, Routine Given 10/29/2019 8:03 EDT 17 g scopolamine (TRANSDERM-SCOP) 1 mg over 3 days patch 1 Patch 1 Patch, transdermal, Administer over 72 Hours, EVERY 72 HOURS, First dose on Mon10/30/19 at 0900, Until Discontinued, Routine Patch Applied 10/30/2019 11:03 EDT 1 Patch Behind Left Ear senna (SENOKOT) tablet 2 Tab 2 Tablet, oral, 2 TIMES DAILY, First dose on Mon10/28/19 at 2100, Until Discontinued, Routine Given 10/31/2019 8:03 EDT 2 Tablets Given 10/30/2019 20:16 EDT 2 Tablets Given 10/30/2019 8:00 EDT 2 Tablets sodium chloride 0.9 % (NS) infusion at 100 mL/hr, intravenous, CONTINUOUS, Starting on Mon10/28/19 at 1515, Until Mon10/29/19 at 1734, Routine New Bag 10/28/2019 17:35 EDT 100 mL/hr traMADoL (ULTRAM) tablet 50-100 mg 50-100 mg, oral, EVERY 6 HOURS, First dose on Mon10/28/19 at 1800, Until Discontinued, Routine Given 10/31/2019 12:17 EDT 100 mg Given 10/31/2019 6:10 EDT 100 mg Given 10/30/2019 23:33 EDT 100 mg zinc sulfate (ZINCATE) capsule 220 mg 220 mg, oral, DAILY WITH LUNCH, 10 doses, First dose on Mon10/29/19 at 1200, Last dose on Mon11/07/19 at 1200, Routine Given 10/31/2019 12:18 EDT 220 mg Given 10/30/2019 11:47 EDT 220 mg documented in this encounter Discontinued Medications Medication Sig Discontinue Reason Start Date End Da te acetaminophen (TYLENOL) 500 mg tablet Take 1,000 mg by mouth every 6 hours as needed for Pain. Stop Taking at Discharge 10/31/2019 ibuprofen (MOTRIN) 400 mg tablet Take 400 mg by mouth every 6 hours as needed for Pain. Stop Taking at Discharge 10/31/2019 documented as of this encounter Active and Recently Administered Medications Times are shown in EDT. Scheduled Medication Order 10/29/2019 10/30/2019 10/31/2019 acetaminophen (TYLENOL) tablet 1,000 mg 1,000 mg, oral, EVERY 6 HOURS, First dose on Mon10/28/19 at 1800, Until Discontinued, Routine 005 (Given - Provider: Jazmyne Corbett RN)0547 (Given - Provider: Jazmyne Corbett RN - Comment: 01/01 with ambulating to bathroom. prior to getting OOB.)1202 (Given - Provider: Tiffanie Best RN)1742 (Given - Provider: Tiffanie Best RN)2319 (Given - Provider: Krunal Contreras RN) 0532 (Given - Provider: Krunal Contreras RN)1147 (Given - Provider: Laurel Harper RN)1722 (Given - Provider: Mellisa Trevino RN)2334 (Given - Provider: Krunal Contreras RN) 0610 (Given - Provider: Krunal Contreras RN)1218 (Given - Provider: Laurel Harper RN) ascorbic acid (vitamin C) (VITAMIN C) tablet 500 mg 500 mg, oral, DAILY WITH BREAKFAST, 10 doses, First dose on Mon10/29/19 at 0800, Last dose on Mon11/07/19 at 0800, Routine 0804 (Given - Provider: Tiffanie Best RN) 0756 (Given - Provider: Laurel Harper RN) 08 (Given - Provider: Laurel Harper RN) aspirin EC tablet 325 mg(Linked Group 1) 325 mg, oral, 2 TIMES DAILY, First dose on Mon10/29/19 at 0900, Until Discontinued, Routine 08 (Given - Provider: Tiffanie Best RN)2107 (Given - Provider: Krunal Contreras RN) 08 (Given - Provider: Laurel Harper RN)2015 (Given - Provider: Krunal Contreras RN) 08 (Given - Provider: Laurel Harper RN) atorvastatin (LIPITOR) tablet 20 mg 20 mg, oral, AT BEDTIME, First dose on Mon10/28/19 at 2100, Until Discontinued, Routine 2107 (Given - Provider: Krunal Contreras RN) 2015 (Given - Provider: Krunal Contreras RN) ceFAZolin (ANCEF) 2,000 mg in sodium chloride 0.9% 50 mL IVPB (COMPLETED) 2,000 mg, intravenous, Administer over 30 Minutes, EVERY 8 HOURS, 2 doses, First dose on Mon10/29/19 at 0000, Last dose on Mon10/29/19 at 0800, Routine 0058 (Given - Provider: Jazmyne Corbett RN)0805 (Given - Provider: Tiffanie Best RN) cholecalciferol (Vitamin D3) tablet 2,000 Units 2,000 Units, oral, DAILY WITH DINNER, 10 doses, First dose on Mon10/28/19 at 1730, Last dose on Mon11/06/19 at 1700, Routine 2123 (Not Given - Provider: Krunal Contreras RN - Reason: Patient/family refused) 1723 (Not Given - Provider: Mellisa Trevino RN - Reason: Nausea/Vomiting) docusate sodium (COLACE) capsule 200 mg 200 mg, oral, 2 TIMES DAILY, First dose on Mon10/28/19 at 2100, Until Discontinued, Routine 08 (Given - Provider: Tiffanie Best RN)210 (Given - Provider: Krunal Contreras RN) 08 (Given - Provider: Laurel Harper RN)2015 (Given - Provider: Krunal Contreras RN) 0802 (Given - Provider: Laurel Harper RN) gabapentin (NEURONTIN) capsule 200 mg 200 mg, oral, DAILY WITH LUNCH, First dose on Mon10/29/19 at 1200, Until Discontinued, Routine 1201 (Given - Provider: Tiffanie Best RN) 1147 (Given - Provider: Laurel Harper RN) 1217 (Given - Provider: Laurel Harper RN) gabapentin (NEURONTIN) capsule 300 mg 300 mg, oral, AT BEDTIME, First dose on Mon10/28/19 at 2100, Until Discontinued, Routine 2107 (Given - Provider: Krunal Contreras RN) 2015 (Given - Provider: Krunal Contreras RN) HYDROmorphone (DILAUDID) tablet 2 mg 2 mg, oral, Once (Without Time Specified), 1 dose, Starting on Mon10/30/19 at 2242, Until Mon10/31/19 at 1516, Routine insulin aspart U-100 (NOVOLOG FLEXPEN) injection subcutaneous, 3 TIMES DAILY WITH MEALS, First dose on Mon10/28/19 at 1730, Until Discontinued, Routine 0805 (Given - Provider: Tiffanie Best RN)1202 (Given - Provider: Tiffanie Best RN)1742 (Given - Provider: Tiffanie Best RN) 0835 (Given - Provider: Laurel Harper RN)1206 (Given - Provider: Laurel Harper RN - Comment: [id number] (Given - Provider: Mellisa Trevino RN) 0802 (Given - Provider: Laurel Harper RN)1219 (Not Given - Provider: Laurel Harper RN - Reason: Patient/family refused) insulin aspart U-100 (NOVOLOG FLEXPEN) injection subcutaneous, AT BEDTIME, First dose on Mon10/28/19 at 2100, Until Discontinued, Routine 2159 (Not Given - Provider: Krunal Contreras RN - Reason: Order parameters not met) 2230 (Not Given - Provider: Krunal Contreras RN - Reason: Order parameters not met) lactated ringers BOLUS 500 mL (COMPLETED) 500 mL, intravenous, NOW X1, 1 dose, On Mon10/29/19 at 1100, Routine 1043 (Given - Provider: Tiffanie Best RN) lisinopriL (PRINIVIL) tablet 40 mg (CANCELED) 40 mg, oral, DAILY, First dose on Mon10/28/19 at 1730, Until Discontinued, Routine 0804 (Given - Provider: Tiffanie Best RN) methocarbamoL (ROBAXIN) tablet 750 mg 750 mg, oral, 4 TIMES DAILY, First dose on Mon10/28/19 at 2100, Until Discontinued, Routine 0803 (Given - Provider: Tiffanie Best RN)1154 (Not Given - Provider: Tiffanie Best RN - Reason: Patient/family refused)1739 (Not Given - Provider: Tiffanie eBst RN - Reason: Patient/family refused)2234 (Given - Provider: Krunal Contreras RN) 0757 (Given - Provider: Laurel Harper RN)1147 (Given - Provider: Laurel Harper RN)1723 (Given - Provider: Mellisa Trevino, АЛЕКСАНДР)2334 (Given - Provider: Krunal Contreras RN) 0802 (Given - Provider: Laurel Harper, АЛЕКСАНДР)1218 (Given - Provider: Laurel Harper, RN) metoprolol XL (TOPROL-XL) tablet 50 mg (CANCELED) 50 mg, oral, 2 TIMES DAILY, First dose on Mon10/28/19 at 2100, Until Discontinued, Routine 0804 (Given - Provider: Tiffanie Estephania, RN) Multivitamins with Minerals tablet 1 Tab 1 Tablet, oral, DAILY WITH DINNER, First dose on Mon10/28/19 at 1730, Until Discontinued, Routine 212 (Not Given - Provider: Krunal Contreras RN - Reason: Patient/family refused) 1723 (Not Given - Provider: Mellisa Trevino RN - Reason: Nausea/Vomiting) pantoprazole (PROTONIX) tablet 40 mg 40 mg, oral, DAILY, First dose on Mon10/28/19 at 1730, Until Discontinued, Routine 0804 (Given - Provider: Tiffanie Best RN) 0800 (Given - Provider: Laurel Harper RN) 0803 (Given - Provider: Laurel Harper, RN) polyethylene glycol 3350 (MIRALAX) packet 17 g 17 g, oral, DAILY, First dose on Mon10/29/19 at 0900, Until Discontinued, Routine 0803 (Given - Provider: Tiffanie Best RN) 0837 (Not Given - Provider: Laurel Harper RN - Reason: Patient/family refused) 0804 (Not Given - Provider: Laurel Harper RN - Reason: Patient/family refused) scopolamine (TRANSDERM-SCOP) 1 mg over 3 days patch 1 Patch 1 Patch, transdermal, Administer over 72 Hours, EVERY 72 HOURS, First dose on Mon10/30/19 at 0900, Until Discontinued, Routine 1103 (Patch Applied - Provider: Laurel Harper RN) senna (SENOKOT) tablet 2 Tab 2 Tablet, oral, 2 TIMES DAILY, First dose on Mon10/28/19 at 2100, Until Discontinued, Routine 0803 (Given - Provider: Tiffanie Best RN)210 (Given - Provider: Krunal Contreras RN) 0800 (Given - Provider: Laurel Harper, АЛЕКСАНДР)2016 (Given - Provider: Krunal Contreras RN) 0803 (Given - Provider: Laurel Harper, АЛЕКСАНДР) traMADoL (ULTRAM) tablet 50-100 mg 50-100 mg, oral, EVERY 6 HOURS, First dose on Mon10/28/19 at 1800, Until Discontinued, Routine 005 (Given - Provider: Jazmyne Corbett RN)0546 (Given - Provider: Jazmyne Corbett, АЛЕКСАНДР - Comment: 01/01 with ambulating to bathroom. prior to getting OOB.)1154 (Not Given - Provider: Tiffanie Best RN - Reason: Patient/family refused)1742 (Given - Provider: Tiffanie Best RN)2319 (Given - Provider: Krunal Contreras RN) 0531 (Given - Provider: Krunal Contreras RN)1147 (Given - Provider: Laurel Harper RN)1723 (Given - Provider: Mellisa Trevino RN)2333 (Given - Provider: Krunal Contreras RN) 0610 (Given - Provider: Krunal Contreras RN)1217 (Given - Provider: Laurel Harper RN) zinc sulfate (ZINCATE) capsule 220 mg 220 mg, oral, DAILY WITH LUNCH, 10 doses, First dose on Mon10/29/19 at 1200, Last dose on Mon11/07/19 at 1200, Routine 2122 (Not Given - Provider: Krunal Contreras RN - Reason: Patient/family refused) 1147 (Given - Provider: Laurel Hraper RN) 1218 (Given - Provider: Laurel Harper RN) PRN Medication Order 10/29/2019 10/30/2019 10/31/2019 bisacodyL (DULCOLAX) suppository 10 mg 10 mg, rectal, DAILY PRN, Starting on Mon10/28/19 at 1704, Until Mon10/31/19 at 1516, Constipation, Routine calcium carbonate (TUMS) 200 mg calcium (500 mg) per chewable tablet tablet,chewable 2 Tab 2 Tablet, oral, 4 TIMES DAILY PRN, Starting on Mon10/28/19 at 2039, Until Mon10/31/19 at 1516, Heartburn, Routine 211 (Given - Provider: Krunal Contreras RN) dextrose 50 % solution 12.5 g 12.5 g (25 mL), intravenous, PRN, Starting on Mon10/28/19 at 1704, Until Mon10/31/19 at 1516, Low Blood Sugar, Routine diphenhydrAMINE (BENADRYL) capsule 25 mg(Linked Group 2) 25 mg, oral, EVERY 6 HOURS PRN, Starting on Mon10/28/19 at 1704, Until Mon10/31/19 at 1516, Itching, Routine diphenhydrAMINE (BENADRYL) elixir 25 mg(Linked Group 2) 25 mg, oral, EVERY 6 HOURS PRN, Starting on Mon10/28/19 at 1704, Until Mon10/31/19 at 1516, Itching, Routine diphenhydrAMINE (BENADRYL) injection 25 mg(Linked Group 2) 25 mg, intravenous, EVERY 6 HOURS PRN, Starting on Mon10/28/19 at 1704, Until Mon10/31/19 at 1516, Itching, Routine glucagon injection 1 mg 1 mg, intramuscular, PRN, Starting on Mon10/28/19 at 1704, Until Mon10/31/19 at 1516, Low blood sugar, Routine ondansetron (PF) (ZOFRAN) injection 4 mg (CANCELED) 4 mg, intravenous, EVERY 6 HOURS PRN, Starting on Mon10/28/19 at 1704, Until Mon10/30/19 at 0307, Nausea, Routine 205 (Given - Provider: Krunal Contreras RN) ondansetron (PF) (ZOFRAN) injection 4 mg(Linked Group 3) 4 mg, intravenous, EVERY 4 HOURS PRN, Starting on Mon10/30/19 at 0305, Until Mon10/31/19 at 1516, Nausea, Routine 0531 (See Alternative - Provider: Krunal Contreras RN) ondansetron (ZOFRAN-ODT) disintegrating tablet 4 mg(Linked Group 3) 4 mg, oral, EVERY 4 HOURS PRN, Starting on Mon10/30/19 at 0305, Until Mon10/31/19 at 1516, Nausea, Routine 0531 (Given - Provider: Krunal Contreras RN) polyethylene glycol 3350 (MIRALAX) packet 17 g 17 g, oral, DAILY PRN, Starting on Mon10/29/19 at 0000, Until Mon10/31/19 at 1516, Constipation, Routine sodium chloride 0.9 % (flush) flush 3 mL 3 mL, intravenous, PRN, Starting on Mon10/28/19 at 1704, Until Mon10/31/19 at 1516, Line Care, Routine Linked Groups Order Group 1: aspirin EC tablet 650 mg (COMPLETED) 650 mg, oral, NOW X1, 1 dose, On Mon10/28/19 at 2100, Routine Followed by aspirin EC tablet 325 mgJump to med 325 mg, oral, 2 TIMES DAILY, First dose on Mon10/29/19 at 0900, Until Discontinued, Routine Group 2: diphenhydrAMINE (BENADRYL) elixir 25 mgJump to med 25 mg, oral, EVERY 6 HOURS PRN, Starting on Mon10/28/19 at 1704, Until Mon10/31/19 at 1516, Itching, Routine Or diphenhydrAMINE (BENADRYL) injection 25 mgJump to med 25 mg, intravenous, EVERY 6 HOURS PRN, Starting on Mon10/28/19 at 1704, Until Mon10/31/19 at 1516, Itching, Routine Or diphenhydrAMINE (BENADRYL) capsule 25 mgJump to med 25 mg, oral, EVERY 6 HOURS PRN, Starting on Mon10/28/19 at 1704, Until Mon10/31/19 at 1516, Itching, Routine Group 3: ondansetron (ZOFRAN-ODT) disintegrating tablet 4 mgJump to med 4 mg, oral, EVERY 4 HOURS PRN, Starting on Mon10/30/19 at 0305, Until Mon10/31/19 at 1516, Nausea, Routine Or ondansetron (PF) (ZOFRAN) injection 4 mgJump to med 4 mg, intravenous, EVERY 4 HOURS PRN, Starting on Mon10/30/19 at 0305, Until Mon10/31/19 at 1516, Nausea, Routine documented in this encounter Orders Medications Ordered That Asif ht Not Have Been Administered Count Last Ordered Date First Ordered Date HYDROmorphone (DILAUDID) tablet 2 mg 11/2019 ondansetron (PF) (ZOFRAN) injection 4 mg 10/30/2019 atenoloL (TENORMIN) tablet 50 mg 10/28/19 atropine 0.1 mg/mL syringe 0.5 mg 020 bisacodyL (DULCOLAX) suppository 10 mg ceFAZolin (ANCEF) syringe 2 g 10/28/2019 chlorhexidine gluconate 0.05 % in water (IRRISEPT) irrigation 10/28/2019 cholecalciferol (Vitamin D3) tablet 2,000 Units 1 10/28/2019 [id number] LAC-ropivacain e 80 mcg-0.5 mg-30 mg-150 mg periarticular syringe 1 10/28/2019 dextrose 50 % solution 12.5 g 2 10/28/2019 diphenhydrAMINE (BENADRYL) capsule 25 mg 1 10/28/2019 diphenhydrAMINE (BENADRYL) elixir 25 mg 1 0 10/28/2019 diphenhydrAMINE (BENADRYL) i njection 12.5 mg 1 10/28/2019 diphenhydrAMINE (BENADRYL) injection 25 mg 1 10/28/2019 fentaNYL citrate (PF) injection 25-50 mcg 1 10/28/2019 glucagon injection 1 mg 2 10/28/2019 HYDROmorphone (DILAUDID) tablet 2-4 mg 1 HYDROmorphone (PF) (DILAUDID ) 0.5 mg/0.5 mL syringe 0.3-0.5 mg 1 10/28/2019 HYDROmorphone (PF) (DILAUDID ) 0.5 mg/0.5 mL syringe 0.5 mg 1 10/28/2019 insulin aspart U-100 (NOVOLO G FLEXPEN) injection 1 10/28/2019 lactated ringers (LR) infusion 1 10/28/2019 lidocaine (PF) 10 mg/mL (1 % ) injection 2 mg 1 10/28/2019 metoCLOPramide (REGLAN) injection 10 mg 1 0 10/28/2019 Multivitamins with Minerals tablet 1 Tab 1 10/28/2019 naloxone (NARCAN) injection 0.2 mg 1 2019 polyethylene glycol 3350 (NM RALAX) packet 17 g 1 10/28/2019 sodium chloride 0.9 % (flush) flush 3 mL 1 10/28/2019 sodium chloride 0.9 % irrigation 1 10/28/19 20 tranexamic acid (CYKLOKAPRON ) injection 1,000 mg 2 10/28/2019 Nursing Count Last Ordered Date First Orde red Date ACTIVITY INSTRUCTIONS 1 10/28/2019 BATHING INSTRUCTIONS 1 10/28/2019 VTE PHARMACOLOGIC PROPHYLAXI S CURRENTLY ORDERED OR ON ALTERNATIVE THER 1 10/28/2019 WOUND CARE INSTRUCTIONS 1 10/28/2019 PT Count Last Ordered Date First Orde red Date PT EVALUATION AND TREAT 1 10/28/2019 Admission Count Last Ordered Date First Orde red Date ADMIT TO INPATIENT 1 10/28/2019 Transfer Count Last Ordered Date First Orde red Date NON-TEACHING SERVICE 2 10/28/2019 Discharge Count Last Ordered Date First Orde red Date DISCHARGE PATIENT 1 10/31/2019 Legal Count Last Ordered Date First Orde red Date MISCELLANEOUS DISCHARGE INSTRUCTIONS 2 09/2019 Consult to Social Work Count Last Ordered Date First Ordered Date CONSULT SOCIAL WORK 1 10/28/2019 documented in this encounter Additional Health Concerns Infection Onset Date Last Indicated Resolved Time R/O COVID-19 10/24/2019 10/24/2019 10/28/2019 10:3 2 EDT documented as of this encounter Care Teams Adjuster Electrical Contacts Relationship Specialty Start Date End Date Barbara Conway, SASH FINISHER [address] [place] [address] PCP - General 08/19/13 documented as of this encounter
--- OUTSIDE RECORDS SUMMARY | 2024-03-18 22:11 | XMS_ITS | Encounter Summary ---
Author Organization [facility] Address [address] [place] [address] Care Team Providers Care Treating Machine Operator Name Role Phone Barbara Conway SUPERVISOR GROVE Primary Care Provider Encounter Details Date Type Department Care Team (Latest Contact Info) Description 10/15/2019 Travel Social History Tobacco Use Types Packs/Day Years Used Date Smoking Tobacco: Never Smokeless Tobacco: Never Alcohol Use Standard Drinks/Week Comments No 0 (1 standard drink = 0.6 oz pur e alcohol) Comments No Sex and Gender Information Value Date Recorded Sex Assigned at Female 03/08/2024 18:30 EST Legal Sex Female 18:30 EST Gender Identity Female 05/28/2019 8:56 EST Sexual Orientation Not on file COVID-19 Exposure Response Date Recorded In the last month, have you been in contact with someone who was confirmed or suspected to have Coronavirus / COVID-19? No / Unsure 10/15/2019 13:59 EDT documented as of this encounter Mental [...] Info) Description 03/27/2024 14:25 EST Hospital Encounter [facility] [place] [facility] [address] [place] [address] Vishal Castillo MD [address] [place] [phone] 03/27/2024 14:25 EST - 03/27/2024 17:55 EST Surgery [facility] OR [address] [place], [place] [id number] Vishal Castillo MD [address] [place] [phone] Left Reverse Total Shoulder Arthroplasty [80628 (CPT??)] 04/08/2024 15:30 EST Post-op Visit [facility] Hand & Upper Extremity Program - [address] [place] [address] Vishal Castillo MD [address] [place] [phone] Scheduled Procedures Name Priority Associated Diagnoses Date/Ti me ARTHROPLASTY, SHOULDER, TOTAL Left rotator cuff tear arthropathy 03/27/2024 14:25 EST documented as of this encounter Visit Diagnoses Not on filedocumented in this encounter Care Teams Treating Machine Operator Relationship Specialty Start Date End Date Barbara Conway, SUPERVISOR GROVE [address] [place] [address] PCP - General 08/19/13 documented as of this encounter
--- OUTSIDE RECORDS SUMMARY | 2024-03-18 22:11 | XMS_ITS | Encounter Summary ---
Author Organization [facility] Address [address] [place] [address] Care Team Providers Care Health Support Specialist Name Role Phone ZoraidaBarbara Myla JET SKI MECHANIC Primary Care Provider [phone] Reason for Visit * Reason Onset Date Comments Post-op Problem 11/01/2019 Encounter Details Date Type Department Care Team (Late st Contact Info) Description 11/01/[address] [facility] Orthopedic Surgery - [facility] [address] [place] [address] Russel Otto MD [address] [place] [phone] Post-op Problem Social History Tobacco [...] Mackenzie Vela RN documented in this encounter Ordered Prescriptions Prescription Sig Dispense Quantity Refills Last Filled Start Date End Date ondansetron (ZOFRAN) 4 mg tablet Take 1 Tab by mouth every 8 hours as needed for Nausea. 12 Tab 11/01/2019 09/04/2020 documented in this encounter Miscellaneous Notes * Telephone Encounter - Liana Self RN - 11/04/2019 0823 EDT Called patient today to check in to see how she is doing. She reports she started having hallucinations over the weekend. Her daughter called the office with concerns and spoke with the on-call resident. Patient was directed to discontinue Robaxin, Tramadol, and Scopolamine patch. Patient reports she is doing much better. She states her pain is well managed. The hallucinationsand nausea are gone. She is currently taking tylenol 1,000mg every 6 hours for pain in addition to Aspirin 325mg 2x a day. She states she is managing well on OTC pain medication. Patient reports her foot is a little swollen. Assured her this is normal after a knee replacement and gravity can play a role in causing swelling below the operative site. Patient reports she is using the ice machine and elevating her leg as instructed. She denies redness, increased pain, or fever. Patient states she still has not had a bowel movement. Her stomach is soft but feels crampy.She reports taking Colace and Milk of Magnesia, as well as increasing her fluids. Recommended patient picker / packer some over the counter Miralax and/or Senna. Educated patient on how these medications work, frequency, and dosage. Patient verbalized understanding and there were no barriers to learning. Patient states she will send her daughter to pick these up today. LIANA SLEF RN * Telephone Encounter - Kiersten Handley RN - 11/01/2019 1220 EDT Spoke with Aretha at length about the following: -she is s/p right TKA on 10/[address] Otto she has not yet moved her bowels since prior to surgery- I explained to her at length that constipation post op is common she needs to increase her fluid and fiber intake, take colace, senna and miralax and titrate per how her bowels are moving. She states she is nauseated with movement mostly yellowish bile- reports 3 bouts of that today. I encouragedher to eat small frequent bland meals, increased water intake especially due to very hot/humid temps outside. She is diabetic and tested her blood glucose at home it was 124. She is passing gas and reports that her abdomen is soft. She currently has a scolpomine patch in place that is due to come off today. I will check with PA to see if they will order zofran or another antiemetic. The [facility] nurseis coming to the home today. For pain she is taking ultram 2 tabs Q6 hrs, tylenol 1gm Q6. I encouraged her to try the robaxin if her pain is not being well controlled. I spoke with Dr. Triana about the above he agreed to order zofran for the nausea- she will require a check in on Monday by nursing to see how she is doing moving her bowels and with nausea. Patient was made aware of script sent to [facility] in [facility] * Telephone Encounter - Jaun Gibbons - 11/01/2019 1110 EDT Patient had sx with angie on Monday she is stating she is very sick still - she is at the point ofthrowing up bile at this point - she is diabetic and has not domingo able to eat - she is not sure whatcan can be done more however she needs to know what can happen next - please give patient a call tofigure out what to do - she was given a patch to help with sickness however is not working - she states she also has a patch on her leg - pt is coming this afternoon - she is nervous on why this is happening still. [phone] documented in this encounter Plan of Treatment Upcoming Encounters Date Type Department Care Team (Latest Contact Info) Description 03/27/2024 14:25 EST Hospital Encounter [facility] OR [address] [place] [phone] Vishal Castillo MD [address] [place] [phone] 03/27/2024 14:25 EST - 03/27/2024 17:55 EST Surgery [facility] OR [address] [place] [phone] Vishal Castillo MD [address] [place] [phone] Left Reverse Total Shoulder Arthroplasty [70774 (CPT??)] 04/08/2024 15:30 EST Post-op Visit [facility] Hand & Upper Extremity Program - [address] [address] Vishal Castillo MD [address] [place] [phone] Scheduled Procedures Name Priority Associated Diagnoses Date/Ti me ARTHROPLASTY, SHOULDER, TOTAL Left rotator cuff tear arthropathy 03/27/2024 14:25 EST documented as of this encounter Visit Diagnoses Not on filedocumented in this encounter Care Teams Health Support Specialist Relationship Specialty Start Date End Date Barbara Conway, JET SKI MECHANIC [address] [place] [address] PCP - General 08/19/13 documented as of this encounter
--- OUTSIDE RECORDS SUMMARY | 2024-03-18 22:11 | XMS_ITS | Encounter Summary ---
Author Organization [facility] Address [address] [place] [address] Care Team Providers Care Curber Name Role Phone Barbara Conway MEDICAL ART THERAPIST Primary Care Provider [phone] Reason for Visit * Auth/Cert Specialty Diagnoses / Procedures Referred By Conttk t Referred To Contact Diagnoses Unilateral primary osteoarthritis, right knee Procedures NE TOTAL KNEE ARTHROPLASTY Russel Otto MD [address] [place] [phone] Phone: tel: fax: Referral ID Status Reason Start Date Expiration Date Visits Re quested Visits Authorized [id number] 10/28/2019 1 1 Encounter Details Date Type Department Care Team (Late st Contact Info) Description 10/28/2019 12:13 EDT Anesthesia Event [facility] Main [place] OR [address] [place], [place] [address] Shakira Shaw MD [address] [facility], Level [address] [place] [phone] Kiko Tee MD [address] [place] [id number] Anesthesia Record Procedure Summary Procedure Name Responsible Anesthesiologist Anesthesia Start Time Anesthesia Stop Time Right Total Knee Arthroplasty (Right: Knee) Shakira Shaw MD 10/28/19 1213 10/28/19 1422 Events Date Time Event Comment 10/28/2019 1213 An Start The patient was re-evaluated immediately before moderate or deep sedation use, before anesthesia induction, or before the anesthesia procedure. 1213 An Start Data 1220 Anesthesia Ready 1242 An Tourn Inflated Tourniquet Inflated - Location = right, Pressure = 265 mmHg 1400 An Tourn Deflated Tourniquet Deflated - Duration = 78 minutes 1417 an stop data 1421 Handoff to RN I completed my handoff to the receiving nurse during which we: 1. Identified the patient 2. Identified the responsible provider 3. Reviewed the pertinent medical history 4. Discussed the surgical course 5. Reviewed intra-op anesthesia management and issues during anesthesia 6. Set expectations for post-procedure period 7. Allowed opportunity for questions and acknowledgement of understanding. 1422 An Stop Meds Name Total bupivacaine (PF) (MARCAINE) injection 0. 5 % 17 mL lidocaine 2% (PF) injection glass vial 6 0 mg midazolam 1 mg/mL 2 mL vial 2 mg propOFol (DIPRIVAN) injection 20 mg propOFol injection 165,937.5 mcg ceFAZolin (ANCEF) syringe 2 g 2 g tranexamic acid injection 2,000 mg diphenhydrAMINE injection 12.5 mg lactated ringers (LR) infusion 800 mL * Agents Name O2 N2O Air * Blood No blood administrations on file. Lines, Drains, and Airways Type Details Placement Removal Full Thickness 01/04/13; 1156; Lace ration; Left; Knee 01/04/13 1156 by Simón Bowers RN Wound 10/28/19; 1254; Inci leny; Right; Knee 10/28/19 1254 by Peg Dempsey, [id number] Peripheral IV 10/28/19; 1123; 10/22 07/11; B Miranda Introcan; Right; Hand; Inserted by RN; 1; None; 2% Chlorhexidine with IPA; 10/29/19; 2054; Leaking, Catheter damage; No complications 10/28/19 1123 by Lorna Roger RN 10/29/192054 by Krunal Benitez RN Peripheral IV 10/28/19; 1248; Righ t; Forearm; 09/08/21; 0941; Removing documentation only, patient arrived without 10/28/19 1248 by Juan Smith CRNA 09/08/21 0941 by Tatianna Pineda RN documented in this encounter Social History Tobacco Use Types Packs/Day [...] Mackenzie Pappas RN documented in this encounter OR Notes * Anesthesia Procedure Notes - Kiko Tee MD - 10/28/2019 1508 EDT Associated Order(s): Peripheral Block Peripheral Block Patient location during procedure: post-op Start time: 10/28/2019 15:08 End time: 10/28/2019 15:24 Staffing Anesthesiologist: Baldo Krishna DO Resident/HAT LACER: Kiko Tee MD Performed: resident/HAT LACER/AA Preanesthetic Checklist Completed: patient identified, site marked, surgical consent, pre-op evaluation, timeout performed,IV checked, risks and benefits discussed and monitors and equipment checked Peripheral Block Patient position: supine Prep: ChloraPrep Patient monitoring: BP cuff, heart rate, registered nurse cardiac telemetry and continuous pulse ox Block type: adductor canal block Laterality: right Injection technique: single-shot Procedures: ultrasound guided Needle Needle localization: anatomical landmarks and ultrasound guidance Assessment Injection assessment: negative aspiration for heme, local visualized surrounding nerve on ultrasound and incremental injection Heart rate change: no Slow fractionated injection: yes Ultrasound Equipment Machine used: SonoSite X-Port (FAH) sterile probe cover Probe did NOT contact body fluids/broken skin. Standard cleaning with recommended disinfectant Reason for block: at surgeon's request, for post-op pain management * Anesthesia Postprocedure Evaluation - Juan Smith APRN - 10/28/2019 1422 EDT Patient: Aretha Garcia Vital signs were reviewed with the recovery nurse. Complete vitals history is available in the Epicflowsheets. Vitals Value Taken Time BP 122/57 10/28/2019 14:20 Temp na 10/28/2019 14:22 Resp 12 10/28/2019 14:22 Pulse From Oximetry 70 BPM 10/28/2019 14:22 SpO2 98 % 10/28/2019 14:22 Vitals shown include unvalidated device data. Last Pain Score - Numeric Pain Level (Scale 1-10): 0 Type of Anesthesia - spinal Anesthesia Post Evaluation Level of consciousness: alert and oriented Temperature status: normothermia Respiratory status: airway patent and room air Cardiovascular status: acceptable Hydration status: adequate Nausea/Vomiting: none Pain management: adequate Post-Op Assessment: patient tolerated procedure well with no complications Patient participation: able to participate Disposition: inpatient Anesthesia Complications: No apparent anesthesia complications * Anesthesia Procedure Notes - Juan Smith APRN - 10/28/2019 1244 EDT Associated Order(s): Spinal Block Spinal Block Patient location during procedure: OR Staffing Anesthesiologist: Rosa Atkinson MD Resident/HAT LACER: Juan Smith APRN Performed: resident/HAT LACER/AA Preanesthetic Checklist Completed: patient identified, site marked, surgical consent, pre-op evaluation, timeout performed,IV checked, risks and benefits discussed and monitors and equipment checked Spinal Block Patient position: sitting Prep: ChloraPrep Patient monitoring: BP cuff and continuous pulse ox Approach: midline Location: L3-4 Injection technique: single-shot Needle Needle type: Quincke Needle gauge: 25 G Assessment Sensory level: T8 Events: no paresthesia Reason for block: surgical anesthesia * Anesthesia Preprocedure Evaluation - Rosa Atkinson MD - 10/28/2019 1150 EDT Anesthesia Preprocedure Evaluation Patient Medical History, including Anesthesia History reviewed. Chart and Nursing Notes reviewed, including NPO status and Medication History. Additional ROS/History Findings: Allergies Allergen Reactions ??? Sulfa (Sulfonamide Antibiotics) Rash ??? Zocor [Simvastatin] Other (See Comments) severe leg cramps Review of Systems No recent change in medical condition.. Only took Metoprolol today. Past Medical History: Diagnosis Date ??? Anesthesia complication severe N/V. Had local for other knee and it worked great ??? Anserine bursitis Right anserine tendinitis/bursitis ??? Arrhythmia 10/24/19 EKG NSR with 1st degree AV block ??? Back pain ??? Bilateral bunions ??? Colon cancer ([facility]) cancerous polyp removed Apr 2005 ??? Colon polyp ??? Complication of anesthesia nausea ??? Diabetes mellitus ([facility]) 10/18/19 A1C 6.5 . Fs daily 120 [...] vomiting ??? Obesity ??? Rectal cancer (HCC-CMS) stage 1 colo rectal cancer Relevant Problems Anesthesia (+) PONV (postoperative nausea and vomiting) Neuro/Psych (+) History of colonic polyps Other (+) Anserine bursitis Physical Exam Airway Mallampati: II TM distance: <3 FB Neck ROM: full Cardiovascular - normal exam Rhythm: regular Rate: normal Dental Comments: Crowded upper teeth. Pulmonary - normal exam Breath sounds clear to auscultation Abdominal Anesthesia Plan ASA 2 Anesthesia Type - neuraxial block (Post-op adductor canal block) - via spinal Anesthesia plan and risks discussed. Informed consent obtained from patient. Code status discussed? No The preoperative history and physical which was performed within 30 days of this procedure, has been reviewed and the clinically appropriate elements of the physical examination have been repeated. There are no changes to the documented history and physical or, if so, such changes are documented inthis note PAT Note (Notes from 09/28/19 through 10/28/19) No notes of this type exist for this encounter. documented in this encounter Plan of Treatment Upcoming Encounters Date Type Department Care Team (Latest Contact Info) Description 03/27/2024 14:25 [facility] Hospital Encounter [facility] OR [address] [place] [address] Vishal Castillo MD [address] [place] [phone] 03/27/2024 14:25 EST - 03/27/2024 17:55 EST Surgery [facility] OR [address] [place] [address] Vishal Castillo MD [address] [place] [phone] Left Reverse Total Shoulder Arthroplasty [21099 (CPT??)] 04/08/2024 15:30 EST Post-op Visit [facility] Hand & Upper Extremity Program - [address] [address] Vishal Castillo MD [address] [place] [phone] Scheduled Procedures Name Priority Associated Diagnoses Date/Ti me ARTHROPLASTY, SHOULDER, TOTAL Left rotator cuff tear arthropathy 03/27/2024 14:25 EST documented as of this encounter Procedures Procedure Name Priority Date/Time Associated Diagnosis Comments ANESTHESIA PERIPHERAL BLOCK Routine 10/28/2019 15:08 EDT ANESTHESIA SPINAL BLOCK Routine 10/28/2019 12:44 EDT documented in this encounter Results * Peripheral Block (10/28/2019 15:08 EDT) Narrative Kiko Tee MD - 10/28/2019 15:08 EDT Kiko Tee MD ? 10/28/2019 15:25 Peripheral Block Patient location during procedure: post-op Start time: 10/28/2019 15:08 End time: 10/28/2019 15:24 Staffing Anesthesiologist: Baldo Krishna DO Resident/HAT LACER: Kiko Tee MD Performed: resident/HAT LACER/AA Preanesthetic Checklist Completed: patient identified, site marked, surgical consent, pre-op evaluation, timeout performed, IV checked, risks and benefits discussed and monitors and equipment checked Peripheral Block Patient position: supine Prep: ChloraPrep Patient monitoring: BP cuff, heart rate, registered nurse cardiac telemetry and continuous pulse ox Block type: adductor canal block Laterality: right Injection technique: single-shot Procedures: ultrasound guided Needle Needle localization: anatomical landmarks and ultrasound guidance Assessment Injection assessment: negative aspiration for heme, local visualized surrounding nerve on ultrasound and incremental injection Heart rate change: no Slow fractionated injection: yes Ultrasound Equipment Machine used: SonoSite X-Port (FA) sterile probe cover Probe did NOT contact body fluids/broken skin. Standard cleaning with recommended disinfectant Reason for block: at surgeon's request, for post-op pain management Shakira Shaw MD ANESTHESIA ORDERABLES Fi nal Result * Spinal Block (10/28/2019 12:44 EDT) Narrative Juan Smith APRN - 10/28/2019 12:44 EDT Juan Smith APRN ? 10/28/2019 12:46 Spinal Block Patient location during procedure: OR Staffing Anesthesiologist: Rosa Atkinson MD Resident/HAT LACER: Juan Smith APRN Performed: resident/HAT LACER/AA Preanesthetic Checklist Completed: patient identified, site marked, surgical consent, pre-op evaluation, timeout performed, IV checked, risks and benefits discussed and monitors and equipment checked Spinal Block Patient position: sitting Prep: ChloraPrep Patient monitoring: BP cuff and continuous pulse ox Approach: midline Location: L3-4 Injection technique: single-shot Needle Needle type: Quincke Needle gauge: 25 G Assessment Sensory level: T8 Events: no paresthesia Reason for block: surgical anesthesia Rosa Atkinson MD ANESTHESIA ORDERABLES Final Result documented in this encounter Visit Diagnoses Not on filedocumented in this encounter Administered Medications Inactive Administered Medications - up to 3 most recent administrations Medication Order MAR Action Action Date Dose Rate Site bupivacaine (PF) (MARCAINE) 0.5% injection PRN, Starting on Mon10/28/19 at 1226, Until Mon10/28/19 at 1422, Routine, Anesthesia Intraprocedure Given 10/28/2019 15:09 EDT 15 mL Given 10/28/2019 12:26 EDT 2 mL ceFAZolin (ANCEF) syringe 2 g 2 g, intravenous, Administer over 10 Minutes, PRE-OP ONCE, 1 dose, On Mon10/28/19 at 1130, Routine, Preprocedure Given 10/28/2019 12:30 EDT 2 g diphenhydrAMINE (BENADRYL) injection PRN, Starting on Mon10/28/19 at 1306, Until Mon10/28/19 at 1422, Routine, Anesthesia Intraprocedure Given 10/28/2019 13:06 EDT 12.5 mg lactated ringers (LR) infusion at 25 mL/hr, intravenous, CONTINUOUS, Starting on Mon10/28/19 at 1130, Until Mon10/29/19 at 1040, Routine, Preprocedure Continued by Anesthesia 10/28/2019 12:07 EDT New Bag 10/28/2019 11:25 EDT 25 mL/hr lidocaine (PF) 20 mg/mL (2 %) injection PRN, Starting on Mon10/28/19 at 1235, Until Mon10/28/19 at 1422, Routine, Anesthesia Intraprocedure Given 10/28/2019 12:35 EDT 60 mg midazolam (PF) (VERSED) injection PRN, Starting on Mon10/28/19 at 1215, Until Mon10/28/19 at 1422, Routine, Anesthesia Intraprocedure Given 10/28/2019 12:33 EDT 0.5 mg Given 10/28/2019 12:15 EDT 1.5 mg propOFol (DIPRIVAN) injection PRN, Starting on Mon10/28/19 at 1235, Until Mon10/28/19 at 1422, Routine, Anesthesia Intraprocedure Given 10/28/2019 12:35 EDT 20 mg propOFol (DIPRIVAN) injection FA IP EQF CONTINUOUS PRN FOR ONE STEP MEDS, Starting on Mon10/28/19 at 1236, Until Mon10/28/19 at 1422, Routine, Anesthesia Intraprocedure Rate Change 10/28/2019 13:48 EDT 10 mcg/kg/min 5.3 mL/hr Rate Change 10/28/2019 13:39 EDT 20 mcg/kg/min 10.6 mL/hr Rate Change 10/28/2019 13:07 EDT 25 mcg/kg/min 13.3 mL/hr tranexamic acid (CYKLOKAPRON) injection PRN, Starting on Mon10/28/19 at 1232, Until Mon10/28/19 at 1422, Routine, Anesthesia Intraprocedure Given 10/28/2019 14:00 EDT 1,000 mg Given 10/28/2019 12:32 EDT 1,000 mg documented in this encounter Care Teams Curber Relationship Specialty Start Date End Date Barbara Conway NP [address] [place] [address] PCP - General 08/19/13 documented as of this encounter
--- OUTSIDE RECORDS SUMMARY | 2024-03-18 22:11 | XMS_ITS | Encounter Summary ---
Author Organization [facility] Address [address] [place] [address] Care Team Providers Care Account Service Representative Name Role Phone Juantessjo annBarbara Myla BIN OPERATOR Primary Care Provider Reason for Visit * Reason Onset Date Comments Other 11/01/2019 Encounter Details Date Type Department Care Team (Late st Contact Info) Description 11/01/2019 Telephone [facility] Orthopedic Surgery - [facility] [address] [place] [address] Kiersten Handley RN [address] [place] [address] Other Social History Tobacco Use Types Packs/Day [...] Date Author No 10/28/2019 17:00 EDT Mackenzie Papaps RN documented in this encounter Miscellaneous Notes * Telephone Encounter - Kiersten Handley RN - 11/01/2019 1418 EDT Received a call from Mallika the [facility] health PT who saw Aretha in the home today. Shestates she spoke with Aretha who stated that she was vomiting and nauseated although it did not happen while she was in the home. She also spoke with her about post op fluid and food intake, as well as post op constipation. She states she is not concerned for post op ilieus. Plan will still be for zofran to be ordered and for nurse on Monday to check in via phone. documented in this encounter Plan of Treatment Upcoming Encounters Date Type Department Care Team (Latest Contact Info) Description 03/27/2024 14:25 EST Hospital Encounter [facility] Main [place] OR [address] [place] [address] Vishal Castillo MD [address] [place] [phone] 03/27/2024 14:25 EST - 03/27/2024 17:55 EST Surgery [facility] OR [address] [place], [place] [id number] Vishal Castillo MD [address] [place] [phone] Left Reverse Total Shoulder Arthroplasty [28549 (CPT??)] 04/08/2024 15:30 EST Post-op Visit [facility] Hand & Upper Extremity Program - [address] [place] [address] Vishal Castillo MD [address] [place] [phone] Scheduled Procedures Name Priority Associated Diagnoses Date/Ti me ARTHROPLASTY, SHOULDER, TOTAL Left rotator cuff tear arthropathy 03/27/2024 14:25 EST documented as of this encounter Visit Diagnoses Not on filedocumented in this encounter Care Teams Account Service Representative Relationship Specialty Start Date End Date Barbara Conway NP [address] [place], [place] [address] PCP - General 08/19/13 documented as of this encounter
--- OUTSIDE RECORDS SUMMARY | 2024-03-18 22:11 | XMS_ITS | Encounter Summary ---
Author Organization [facility] Address [address] [place] [address] Care Team Providers Care Clerk Television Production Name Role Phone Barbara Conway METALSMITH HELPER Primary Care Provider [phone] Encounter Details Date Type Department Care Team (Latest Contact Info) Description 10/18/2019 Travel Social History Tobacco Use Types Packs/Day [...] Info) Description 03/27/2024 14:25 EST Hospital Encounter [facility] Main [place] OR [address] [place] [address] Vishal Castillo MD [address] [place] [phone] 03/27/2024 14:25 EST - 03/27/2024 17:55 EST Surgery [facility] OR [address] [place], [place] [address] Vishal Castillo MD [address] [place] [phone] Left Reverse Total Shoulder Arthroplasty [46748 (CPT??)] 04/08/2024 15:30 EST Post-op Visit [facility] Hand & Upper Extremity Program - [address] [place] [address] Vishal Castillo MD [address] [place] [phone] Scheduled Procedures Name Priority Associated Diagnoses Date/Ti me ARTHROPLASTY, SHOULDER, TOTAL Left rotator cuff tear arthropathy 03/27/2024 14:25 EST documented as of this encounter Visit Diagnoses Not on filedocumented in this encounter Care Teams Clerk Television Production Relationship Specialty Start Date End Date Barbara Conway, METALSMITH HELPER [address] [place] [address] PCP - General 08/19/13 documented as of this encounter
--- OUTSIDE RECORDS SUMMARY | 2024-03-18 22:11 | XMS_ITS | Encounter Summary ---
Author Organization [facility] Address [address] [place] [address] Care Team Providers Care Dog License Officer Supervisor Name Role Phone Barbara Conway SLAG WHEELER Primary Care Provider [phone] Encounter Details Date Type Department Care Team (Latest Contact Info) Description 10/22/2019 Travel Social History Tobacco Use Types Packs/Day [...] Info) Description 03/27/2024 14:25 EST Hospital Encounter [facility] Main [place] OR [address] [place] [address] Vishal Castillo MD [address] [place] [phone] 03/27/2024 14:25 EST - 03/27/2024 17:55 EST Surgery [facility] OR [address] [place], [place] [address] Vishal Castillo MD [address] [place] [phone] Left Reverse Total Shoulder Arthroplasty [30555 (CPT??)] 04/08/2024 15:30 EST Post-op Visit [facility] Hand & Upper Extremity Program - [address] [place] [address] Vishal Castillo MD [address] [place] [phone] Scheduled Procedures Name Priority Associated Diagnoses Date/Ti me ARTHROPLASTY, SHOULDER, TOTAL Left rotator cuff tear arthropathy 03/27/2024 14:25 EST documented as of this encounter Visit Diagnoses Not on filedocumented in this encounter Care Teams Dog License Officer Supervisor Relationship Specialty Start Date End Date Barbara Conway, SLAG WHEELER [address] [place] [address] PCP - General 08/19/13 documented as of this encounter
--- OUTSIDE RECORDS SUMMARY | 2024-03-18 22:11 | XMS_ITS | Encounter Summary ---
Author Organization [facility] Address [address] [place] [address] Care Team Providers Care Svp Chief Marketing Officer Name Role Phone Barbara Conway CITY DIRECTOR Primary Care Provider [phone] Encounter Details Date Type Department Care Team (Late st Contact Info) Description 10/03/2019 Orders Only [facility] Orthopedic Surgery - [facility] [address] [place] [address] Oksana Atkins, RN [address] [place] [address] Primary osteoarthritis of right knee (Primary Dx) Social History Tobacco Use Types [...] on file documented as of this encounter Mental Status * Because of a physical, mental, or emotional condition, do you have serious difficulty concentrating, remembering, or making decisions? (5 years old or older) Answer Entry Date Author Yes 01/04/2013 20:00 EDT Christopher Elmore RN documented in this encounter Progress Notes * Oksana Atkins, RN - 10/03/2019 1500 EDT Order for pre-operative covid-19 testing to be performed prior to scheduled surgery per Dr. Otto. documented in this encounter Plan of Treatment Upcoming Encounters Date Type Department Care Team (Latest Contact Info) Description 03/27/2024 14:[address] [facility] OR [address] [place] [id number] Vishal Castillo MD [address] [place] [phone] 03/27/2024 14:25 EST - 03/27/2024 17:[address] [facility] OR [address] [place] [phone] Vishal Castillo MD [address] [place] [phone] Left Reverse Total Shoulder Arthroplasty [64359 (CPT??)] 04/08/2024 15:30 EST Post-op Visit [facility] Hand & Upper Extremity Program - [address] [id number] Vishal Castillo MD [address] [place] [phone] Scheduled Procedures Name Priority Associated Diagnoses Date/Ti me ARTHROPLASTY, SHOULDER, TOTAL Left rotator cuff tear arthropathy 03/27/2024 14:25 EST documented as of this encounter Visit Diagnoses Diagnosis Primary osteoarthritis of right knee- Primary Primary localized osteoarthrosis, lower leg Left rotator cuff tear arthropathy documented in this encounter Care Teams Svp Chief Marketing Officer Relationship Specialty Start Date End Date Barbara Conway NP [address] [place] [address] PCP - General 08/19/13 documented as of this encounter
--- OUTSIDE RECORDS SUMMARY | 2024-03-18 22:11 | XMS_ITS | Encounter Summary ---
Author Organization [facility] Address [address] [place] [address] Care Team Providers Care Small Business Banking Officer Name Role Phone ZoraidaBarbara Myla MONOTYPER Primary Care Provider [phone] Encounter Details Date Type Department Care Team (Latest Contact Info) Description 10/24/2019 10:10 EDT - 10/24/2019 23:59 EDT Hospital Encounter [facility] Pre-Surgical Testing [address], [place] [id number] Discharge Disposition: Home or Self Care Social [...] 15:59 EDT documented as of this encounter Last Filed Vital Signs Vital Sign Reading Time Taken Comments Blood Pressure - - Pulse - - Temperature - - Respiratory Rate - - Oxygen Saturation - - Inhaled Oxygen Concentration - - Weight 88.5 kg (195 lb) 10/24/2019 1011 EDT Height 160 cm (5' 3) 10/24/2019 1011 EDT Body Mass Index 34.54 10/24/2019 1011 EDT documented in this encounter Mental Status * Because of a physical, mental, or emotional condition, do you have serious difficulty concentrating, remembering, or making decisions? (5 years old or older) Answer Entry Date Author Yes 01/04/2013 20:00 EDT Christopher Elmore RN documented in this encounter Medications at [...] 1 Capsule by mouth every morning. 04/30/2008 acetaminophen (TYLENOL) 500 mg tablet Take 1,000 mg by mouth every 6 hours as needed for Pain. 0 aspirin 325 mg EC tablet Take 1 [...] daily as needed for Constipation. 10/30/2019 1 ibuprofen (MOTRIN) 400 mg tablet Take 400 mg by mouth every 6 hours as needed for Pain. 0 methocarbamoL (ROBAXIN) 750 mg tablet Take 1 [...] or Self Care documented in this encounter Progress Notes * Mellisa Dominguez RN - 10/24/2019 1040 EDT COVID 19 Screening Perioperative at time of PAT Please document by exception (only check those that apply). Have you had any of the following symptoms recently? Patient denies Yes Chronic ? Cough Shortness of breath or difficulty breathing Fever Chills Fatigue Muscle or body aches Severe Headache New loss of taste or smell Sore throat Congestion or runny nose Rash Nausea, vomiting, or diarrhea (rare in adults. More common in children) Please elaborate if yes: If a chronic symptom is reported use your judgement if an anesthesia review is needed. Have you been in close contact with someone who has been diagnosed with Covid 19?no (close contact, within 6 feet of any person known to have Coronavirus in the past 14 days) If past COVID + test results in chart: ??? Complete call, Place for Anesthesia Review ??? Do not give COVID+ DOS arrival instructions unless anes review deems necessary Negative COVID screen: Please file negative COVID screening under a progress note Negative screening is no symptoms or patient reporting a chronic symptom that does not need an anesthesia review Positive COVID screen: Patient answers yes to the question(s) and it is not a chronic symptom RN to flag this chart for anesthesia review and complete call Please file positive COVID screening under a PAT note If patient develops any of these symptoms between now and their surgery date instruct them to call us back at [phone] to report symptoms (If patient is in Surgical Admissions and answers yes, please notify Surgery and Anesthesia team). Follow proper precautions- yellow mask to patient/family. [place]: Visitor Policy: OP- one non-sick escort in waiting room, no visitors/escort in PeriOp Exceptions: Child-1 parent, special needs- 1 caregiver For safety concerns on ride home: second parent or caregiver may come to hospital but will have to wait in cell phone lot IP- One non-sick visitor/escort in waiting room, no visitors/escort in PeriOp. One designated visitor is allowed to visit the patient on the in patient unit. Pediatric patient: ??? Both parents can come with child DOS, one is allowed with child in PreOp/PACU, one has to wait in the waiting room ??? Due to COVID 19 no parents are allowed to go back to OR. ??? Explain IV/Mask induction. IV or mask will be available for pedi patients who are asymptomatic and test COVID negative. ??? If parent declines or no test results, Pt will get IV in PreOp, except PE tubes. For State tracking purposes, the parents of these children will be asked to consent to having their child COVID tested under anesthesia. ??? Unsedated children will be allowed one parents in the OR room for support. ??? RN to provide education on IV's and request Emla to be placed (RX from PCP) prior to coming in with them. ? ? Patient > 1 yo: Emla takes one hour to work, place quarter size amount on 4 places - top of hands and inner elbow, cover with tegaderm or saran wrap. Children under age of 16 y.o. are not permitted. Only ADA service animals are permitted into the hospital. All other animals, including previously approved therapy/support animals, are not allowed at this time. (No animals will be allowed into Preop, OR, or PACU) Visitor Policy Stefanie Casarez: - No visitors - Patients should be dropped at the front door - Same exceptions apply as main campus: children and special needs - Visitors/rides home are to wait in the parking lot or be within 15 mins away - Visitors must have mask for pickup. GENERAL ENGINEERING TEACHER will provide sampler pickup instructions when Pt is ready for DC. documented in this encounter OR Notes * Preprocedure Instructions - Mellisa Dominguez RN - 10/24/2019 1037 EDT Aretha Garcia has been instructed as follows regarding medication administration for the day of the scheduled procedure. Date of Surgery: 10/28/19 Instructions for Taking Medications Day of Surgery Medication Sig Last Dose Hold DOS Take DOS acetaminophen (TYLENOL) 500 mg tablet Take 1,000 mg by mouth every 6 hours as needed for Pain. Yes ascorbic acid (VITAMIN C) 500 mg tablet Take 1 Tab by mouth at bedtime. x atenolol (TENORMIN) 50 mg tablet Take 50 mg by mouth daily. x atorvastatin (LIPITOR) 40 mg tablet Take 40 mg by mouth at bedtime. Take 1/2 tab Yes cephALEXin (KEFLEX) 500 mg capsule Take 500 mg by mouth as needed. 1 tab BID for 3 days at first sign of UTI Yes-prn cholecalciferol, Vitamin D3, 1,000 unit tablet Take 1,000 Units by mouth daily. x gabapentin (NEURONTIN) 100 mg capsule Take 100 mg by mouth 2 times daily. 2 caps at lunchtime 3 at hs x ibuprofen (MOTRIN) 400 mg tablet Take 400 mg by mouth every 6 hours as needed for Pain. x lisinopril (PRINIVIL, ZESTRIL) 40 mg tablet Take 40 mg by mouth daily. x48 hours metformin (GLUCOPHAGE) 1,000 mg tablet Take 1,000 mg by mouth 2 times daily with meals. x metoprolol (LOPRESSOR) 50 mg tablet Take 50 mg by mouth 2 times daily. x omeprazole (PRILOSEC) 40 mg capsule Take 40 mg by mouth daily. x Patient has stopped vitamins, supplements, and NSAIDs for surgery documented in this encounter Plan of Treatment Upcoming Encounters Date Type Department Care Team (Latest Contact Info) Description 03/27/2024 14:25 EST Hospital Encounter [facility] OR [address] [place] [address] Vishal Castillo MD [address] [place] [phone] 03/27/2024 14:25 EST - 03/27/2024 17:55 EST Surgery [facility] OR [address] [place] [address] Vishal Castillo MD [address] [place] [phone] Left Reverse Total Shoulder Arthroplasty [15517 (CPT??)] 04/08/2024 15:30 EST Post-op Visit [facility] - [address] [place] [address] Vishal Castillo MD [address] [place] [phone] Scheduled Procedures Name Priority Associated Diagnoses Date/Ti me ARTHROPLASTY, SHOULDER, TOTAL Left rotator cuff tear arthropathy 03/27/2024 14:25 EST documented as of this encounter Visit Diagnoses Not on filedocumented in this encounter Discontinued Medications Medication Sig Discontinue Reason Start Date End Da te warfarin (COUMADIN) 2 mg tabletIndications:deep vein thrombosis prevention Take 1.5 Tabs by mouth at bedtime. Indications: DEEP VEIN THROMBOSIS PREVENTION 01/08/2013 10/24/2019 warfarin (COUMADIN) 2 mg tabletIndications:deep vein thrombosis prevention Take 1 Tab by mouth at bedtime. Indications: DEEP VEIN THROMBOSIS PREVENTION 01/06/2013 10/24/2019 scopolamine (TRANSDERM-SCOP) 1.[address] 1 Patch onto the skin every 72 hours. 01/06/2013 10/24/2019 oxyCODONE (ROXICODONE) 5 mg immediate release tablet Take 1-3 Tabs by mouth every 4 hours as needed for Pain. 01/08/2013 10/24/2019 nitrofurantoin (MACRODANTIN) 100 mg capsule Take 100 mg by mouth daily. Reported on 08/31/2016 04/30/2007 10/24/2019 aspirin 81 mg EC tablet Take 81 mg by mouth daily. 10/24/2019 BETA-CAROTENE,A, W-C & E (ANTI-OXIDANT ORAL) Take by mouth daily. Reported on 05/02/2016 04/30/2007 10/24/2019 bisacodyl (DULCOLAX) [address] 1 Suppository rectally daily as needed for Other (constipation). 01/08/2013 10/24/2019 Calcium-Cholecalcifero l, D3, (CALCIUM 600 + D,3,) 600-200 mg-unit Cap Take by mouth daily. 04/30/1999 10/24/2019 docusate sodium (COLACE) 100 mg capsule Take 2 Caps by mouth 2 times daily. 01/06/2013 10/24/2019 magnesium hydroxide (MILK OF MAGNESIA) 400 mg/5 mL suspension Take 30 mL by mouth 2 times daily as needed for Other (constipation). 01/08/2013 10/24/2019 methocarbamol (ROBAXIN) 500 mg tablet Take 1-2 Tabs by mouth every 6 hours as needed (muscle spasms). 01/06/2013 10/24/2019 multivitamin (DAILY VITAMIN) per tablet Take 1 Tab by mouth daily. 04/30/2007 10/24/2019 PEG 3350-Electrolytes (MIRALAX) 17 gram packet Take 17 g by mouth daily. 01/06/2013 10/24/2019 polyethylene glycol (GOLYTELY) 236-22.74-6.74 -5.86 gram suspension Patient is to follow one time directions sent from Dr Oliva's office. 08/19/2016 10/24/2019 documented as of this encounter Historical Medications * This list may reflect changes made after this encounter. cholecalciferol, Vitamin D3, 1,000 unit tablet Take 1 Tablet by mouth daily. metoprolol (LOPRESSOR) 50 mg tablet Take 1 Tablet by mouth 2 times daily. ibuprofen (MOTRIN) 400 mg tablet Take 400 mg by mouth every 6 hours as needed for Pain. 10/31/2019 cephALEXin (KEFLEX) 500 mg capsule Take 1 Capsule by mouth as needed. 1 tab BID for 3 days at first sign of UTI 01/12/2024 acetaminophen (TYLENOL) 500 mg tablet Take 1,000 mg by mouth every 6 hours as needed for Pain. 10/31/2019 added in this encounter Additional Health Concerns Infection Onset Date Last Indicated Resolved Time R/O COVID-19 10/24/2019 10/24/2019 10/28/2019 10:3 2 EDT documented as of this encounter Care Teams Small Business Banking Officer Relationship Specialty Start Date End Date Barbara Conway NP [address] [place] [address] PCP - General 08/19/13 documented as of this encounter
--- OUTSIDE RECORDS SUMMARY | 2024-03-18 22:11 | XMS_ITS | Encounter Summary ---
Author Organization [facility] Address [address] [place] [address] Care Team Providers Care Respiratory Care Program Director Name Role Phone ZoraidaBarbara Myla APPRAISER AUDITOR Primary Care Provider [phone] Reason for Visit * Reason Onset Date Comments COVID-19 10/21/2019 Encounter Details Date Type Department Care Team (Late st Contact Info) Description 10/21/2019 Telephone [facility] Testing [address] [place] [address] Russel Otto MD [address] [place] [phone] COVID-19 Social History Tobacco Use Types Packs/Day Years [...] 9:48 EDT documented as of this encounter Mental Status * Because of a physical, mental, or emotional condition, do you have serious difficulty concentrating, remembering, or making decisions? (5 years old or older) Answer Entry Date Author Yes 01/04/2013 20:00 EDT Christopher Elmore RN documented in this encounter Miscellaneous Notes * Telephone Encounter - Honey Bazan - 10/23/2019 1500 EDT Patient confirmed she will be tested for COVID-19 at [facility] on 10/23 for 10/27 procedure. * Telephone Encounter - Kya Kirkpatrick - 10/21/2019 0912 EDT Patient had left voicemail about scheduling covid testing. Director Of Assessing returned patients call. Patient would like to be tested at [facility]. Director Of Assessing had order form sent to [facility]. Patient instructed to have testing done on 10/23 or 10/24. documented in this encounter Plan of Treatment Upcoming Encounters Date Type Department Care Team (Latest Contact Info) Description 03/27/2024 14:25 EST Hospital Encounter [facility] OR [address] [place] [phone] Vishal Castillo MD [address] [place] [phone] 03/27/2024 14:25 EST - 03/27/2024 17:55 EST Surgery [facility] OR [address] [place], [place] [phone] Vishal Castillo MD [address] [place] [phone] Left Reverse Total Shoulder Arthroplasty [76287 (CPT??)] 04/08/2024 15:30 EST Post-op Visit [facility] [place] [address] [place] [address] Vishal Castillo MD [address] [place] [phone] Scheduled Procedures Name Priority Associated Diagnoses Date/Ti me ARTHROPLASTY, SHOULDER, TOTAL Left rotator cuff tear arthropathy 03/27/2024 14:25 EST documented as of this encounter Visit Diagnoses Not on filedocumented in this encounter Additional Health Concerns Infection Onset Date Last Indicated Resolved Time R/O COVID-19 10/24/2019 10/24/2019 10/28/2019 10:3 2 EDT documented as of this encounter Care Teams Respiratory Care Program Director Relationship Specialty Start Date End Date Barbara Conway, APPRAISER AUDITOR [address] [place] [address] PCP - General 08/19/13 documented as of this encounter
--- OUTSIDE RECORDS SUMMARY | 2024-03-18 22:11 | XMS_ITS | Encounter Summary ---
Author Organization [facility] Address [address] [place] [address] Care Team Providers Care Emery Wheel Molder Name Role Phone Barbara Conway Myla PILE DRIVING SUPERVISOR Primary Care Provider [phone] Encounter Details Date Type Department Care Team (Late st Contact Info) Description 10/18/2019 10:55 EDT Phlebotomy Only [facility] Laboratory Services - [facility] ([facility]) [address], [place] [id number] [place], [facility] Phlebotomy Primary osteoarthritis of right knee (Primary Dx) [...] Info) Description 03/27/2024 14:25 EST Hospital Encounter [facility] OR [address], [place] [address] Vishal Castillo MD [address] [place] [phone] 03/27/2024 14:25 EST - 03/27/2024 17:55 EST Surgery [facility] OR [address], [place] [id number] Vishal Castillo MD [address] [place] [phone] Left Reverse Total Shoulder Arthroplasty [71833 (CPT??)] 04/08/2024 15:30 EST Post-op Visit [facility] Hand & Upper Extremity Program - [address] [address] Vishal Castillo MD [address] [place] [address] Scheduled Procedures Name Priority Associated Diagnoses Date/Ti me ARTHROPLASTY, SHOULDER, TOTAL Left rotator cuff tear arthropathy 03/27/2024 14:25 EST documented as of this encounter Procedures Procedure Name Priority Date/Time Associated Diagnosis Comments URINE CHEMICAL (DIP) & SEDIMENT (MICRO) WITH REFLEX TO CULTURE Routine 10/18/2019 11:10 EDT Primary osteoarthritis of right knee PRE-OP TYPE AND SCREEN Routine 10/18/2019 11:10 EDT Primary osteoarthritis of right knee PROTIME Routine 10/18/2019 11:10 EDT Primary osteoarthritis of right knee COMPLETE BLOOD COUNT AND DIFFERENTIAL Routine 10/18/2019 11:10 EDT Primary osteoarthritis of right knee TYPE AND SCREEN Today 10/18/2019 11:10 EDT Primary osteoarthritis of right knee HEMOGLOBIN A1C Routine 10/18/2019 11:10 EDT Primary osteoarthritis of right knee COMPREHENSIVE METABOLIC PANEL (CMP) Routine 10/18/2019 11:10 EDT Primary osteoarthritis of right knee documented in this encounter Results * TYPE AND SCREEN (10/18/2019 11:10 EDT) ABO B 10/18/2019 14:04 EDT [facility] Rh Factor Positive 10/18/2019 14:04 EDT [facility] Antibody Screen Negative 10/18/2019 14:04 EDT [facility] Specimen Expires: 10/31/2019 @ 23:59 10/18/2019 14:04 EDT [facility] Blood VENOUS BLOOD / Unknown Venipuncture / Unknown 10/18/2019 11:10 EDT 10/18/2019 11:10 EDT us Russel Otto MD BLOOD BANK TESTS Edited R esult - Final Performing Organization Address City/State/[facility] Co de Phone Number [facility] [address] [facility] [place] [address] * (ABNORMAL) HEMOGLOBIN A1C (10/18/2019 11:10 EDT) Hemoglobin A1c 6.5(H) <5.7 % 10/18/2019 14:43 EDT [facility] Comment: Glycemic Status References: Normal: ??<5.7% Pre-Diabetes: ??5.7% - 6.4% Diagnostic of Diabetes: ??> or = 6.5% (if confirmed) Goals for glycemic control in diabetics (ADA 2017): <7.0% target for non adults with diabetes. <7.5% target for children and adolescents with Type I Diabetes. More or less stringent targets may be appropriate for individual patients. Est Avg Glucose 140 mg/dL 0 14:43 EDT [facility] Comment: The eAG represents the A1c result expressed as average glucose in mg/dL. Blood VENOUS BLOOD / Unknown Venipuncture / Unknown 10/18/2019 11:10 EDT 10/18/2019 11:10 EDT Russel Otto MD CHEMISTRY & BLOOD GAS ORD ERABLES Final Result Performing Organization Address [facility] de Phone Number [facility] [address] [place] [address] * PROTIME (10/18/2019 11:10 EDT) I.N.R. 1.0 0.9 - 1.1 Ratio 10/18/2019 13:09 EDT [facility] Pro Time 11.5 10.3 - 13.4 secs 10/18/2019 13:09 EDT [facility] Blood VENOUS BLOOD / Unknown Venipuncture / Unknown 10/18/2019 11:10 EDT 10/18/2019 11:10 EDT Narrative [facility] - 10/18/2019 13:09 EDT Moderate Intensity Coumadin INR = 2.0-3.0 Adjustments in anticoagulant therapy dose should be based on the INR and NOT on the Protime. Russel Otto MD HEMATOLOGY & PF4 ORDERABL ES Final Result Performing Organization Address [facility] Co de Phone Number [facility] [address] [place] [address] * PRE-OP BLOOD BANK DRAW (10/18/2019 11:10 EDT) Hold BB Specimen valid up to 30 days from collection date. 10/18/2019 14:06 EDT [facility] Blood VENOUS BLOOD / Unknown Venipuncture / Unknown 10/18/2019 11:10 EDT 10/18/2019 11:10 EDT us Russel Otto MD BLOOD BANK TESTS Final Re sult Performing Organization Address City/State/[facility] Co de Phone Number [facility] [address] [place] [address] * (ABNORMAL) COMPLETE BLOOD COUNT AND DIFFERENTIAL (10/18/2019 11:10 EDT) WBC 6.59 4.00 - 12.40 K/cmm 10/18/2019 12:47 [facility] RBC 4.18 3.86 - 5.04 M/cmm 10/18/2019 12:47 [facility] Hemoglobin 11.5(L) 11.6 - 15.2 gm/dL 10/18/2019 12:47 [facility] HCT 35.9 34.9 - 44.4 % 10/18/2019 12:47 [facility] MCV 86 81 - 98 fl 10/18/2019 12:47 [facility] MCH 27.5 26.7 - 33.3 pg 10/18/2019 12:47 [facility] MCHC 32.0(L) 32.1 - 35.9 gm/dL 10/18/2019 12:47 [facility] RDW-CV 13.3 <14.7 % 10/18/2019 12:47 [facility] RDW-SD 41.5 <50.4 fl 10/18/2019 12:47 [facility] PLT 296 141 - 377 K/cmm 10/18/2019 12:47 [facility] MPV 10.5 9.5 - 12.7 fl 10/18/2019 12:47 [facility] % Neutrophils 54.0 % 10/18/2019 12:47 [facility] % Lymphocytes 35.8 % 10/18/2019 12:47 [facility] % Monocytes 6.8 % 10/18/2019 12:47 [facility] % Eosinophils 2.6 % 10/18/2019 12:47 [facility] % Basophils 0.5 % 10/18/2019 12:47 [facility] % Immature Grans 0.3 % 10/18/19 20 12:47 [facility] Absolute Neutrophils 3.56 2.20 - 8.85 K/cmm 10/18/2019 12:47 [facility] Absolute Lymphocytes 2.36 1.09 - 3.30 K/cmm 10/18/2019 12:47 [facility] Absolute Monocytes 0.45 0.10 - 0.80 K/cmm 10/18/2019 12:47 [facility] Absolute Eosinophils 0.17 0.03 - 0.61 K/cmm 10/18/2019 12:47 [facility] ABS Basophils 0.03 0.01 - 0.11 K/cmm 10/18/2019 12:47 [facility] Absolute Immature Grans 0.02 0.00 - 0.06 K/cmm 10/18/2019 12:47 [facility] Type of Differential: Auto 10/18/2019 12:47 [facility] Blood VENOUS BLOOD / Unknown Venipuncture / Unknown 10/18/2019 11:10 EDT 10/18/2019 11:10 EDT us Russel Otto MD PACKAGES & DNA PROBE SUGAR RAINEY Final Result [facility] [address] [place] [address] * COMPREHENSIVE METABOLIC PANEL (CMP) (10/18/2019 11:10 EDT) Sodium 137 136 - 145 mEq/L 10/18/2019 13:06 [facility] Potassium 4.5 3.5 - 5.0 mEq/L 10/18/2019 13:06 [facility] Chloride 103 96 - 110 mEq/L 10/18/2019 13:06 [facility] CO2 Total 25 22 - 32 mEq/L 10/18/2019 13:06 [facility] Glucose 94 70 - 100 mg/dL 10/18/2019 13:06 [facility] BUN 21 10 - 26 mg/dL 10/18/2019 13:06 [facility] Creatinine 0.73 0.52 - 1.04 mg/dL 10/18/2019 13:06 [facility] eGFR 82 >60 mL/min/1.7 3m2 10/18/2019 13:06 [facility] Comment:eGFR calculated sergio burgess CKD-EPI equation for non- Americans. Multiply eGFR by 1.16 for patients. Total Protein 7.0 6.3 - 8.2 g/dL 10/18/2019 13:06 [facility] Albumin 4.3 3.4 - 4.9 g/dL 10/18/2019 13:06 [facility] Alkaline Phosphatase 72 38 - 126 U/L 10/18/2019 13:06 [facility] AST 20 15 - 46 U/L 10/18/2019 13:06 [facility] ALT 12 <35 U/L 10/18/2019 13:06 [facility] Bilirubin, Total <0.5 <1.4 mg/dL 10/18/19 20 13:06 [facility] Calcium 9.7 8.5 - 10.5 mg/dL 10/18/2019 13:06 [facility] Calculated Calcium 9.5 8.5 - 10.5 mg/dL 10/18/2019 13:06 [facility] Blood VENOUS BLOOD / Unknown Venipuncture / Unknown 10/18/2019 11:10 EDT 10/18/2019 11:10 EDT us Russel Otto MD CHEMISTRY & BLOOD GAS ORD ERABLES Final Result [facility] [address] [place] [address] * (ABNORMAL) URINE CHEMICAL (DIP) & SEDIMENT (MICRO) WITH REFLEX TO CULTURE (10/18/2019 11:10 EDT) Color UA Yellow Colorless, Yellow 10/18/2019 12:50 [facility] Clarity UA Clear Clear 10/18/2019 12:50 [facility] Glucose UA Negative Negative 10/18/2019 12:50 [facility] Bilirubin UA Negative Negative 10/18/2019 12:50 [facility] Ketones UA Negative Negative 10/18/2019 12:50 [facility] Specific [place], Urine 1.005 1.001 - 1.035 10/18/2019 12:50 [facility] Blood UA Negative Negative 10/18/2019 12:50 [facility] Urobilinogen UA Normal Normal mg/dL 020 12:50 [facility] Nitrite UA Negative Negative 10/18/2019 12:50 [facility] Leukocyte Esterase UA Trace(A) Negative 10/18/2019 12:50 [facility] Protein UA Negative Negative 10/18/2019 12:50 [facility] pH, UA 5.0 4.6 - 8.0 10/18/2019 12:50 [facility] Urine RBC Count, Auto 3 - 10(A) 0 - 2 Cells/HPF 10/18/2019 12:50 [facility] Urine WBC Count, Auto 0 - 3 0 - 3 Cells/HPF 10/18/2019 12:50 [facility] Urine Squamous Count, Auto None Seen None Seen Cells/HPF 10/18/2019 12:50 [facility] Urine Hyaline Cast Count, Auto <=10 <=10 Casts/LPF 10/18/2019 12:50 [facility] Urine Bacteria Count, Auto Few(A) None Seen Bacteria/HPF 10/18/2019 12:50 [facility] Urine URINE SPECIMEN OBTAINED BY CLEAN CATCH PROCEDURE / Unknown Urine Collect / Unknown 10/18/2019 11:10 EDT 10/18/2019 11:10 [facility] - 10/18/2019 12:50 EDT NOTE: Reflex to Urine Culture test is not indicated based on Urine Sediment Analysis results. Urine Sediment Analysis results are unreliable on urines that are unrefrigerated for >2 hrs or refrigerated >8 hrs. us Russel Otto MD URINALYSIS ORDERABLES Fin al Result [facility] [address] [place] [address] documented in this encounter Visit Diagnoses Diagnosis Primary osteoarthritis of right knee- Primary Primary localized osteoarthrosis, lower leg Left rotator cuff tear arthropathy documented in this encounter Care Teams Emery Wheel Molder Relationship Specialty Start Date End Date Barbara Conway NP [address] [place] [address] PCP - General 08/19/13 documented as of this encounter
--- OUTSIDE RECORDS SUMMARY | 2024-03-18 22:11 | XMS_ITS | Encounter Summary ---
Author Organization [facility] Address [address] [place] [address] Care Team Providers Care Reagent Tender Helper Name Role Phone ZoraidaBarbara Myla ELECTION SUPERVISOR Primary Care Provider [phone] Encounter Details Date Type Department Care Team (Late st Contact Info) Description 10/24/2019 Prep for Procedure [facility] Orthopedic Surgery - [facility] [address] [place] [address] Kristina Elizabeth PA-C [address] [place] [address] Social History Tobacco Use Types Packs/Day Years [...] [facility] [place] [address] [place] [id number] Vishal Castillo MD [address] [place] [phone] 03/27/2024 14:25 EST - 03/27/2024 17:55 EST Surgery [facility] OR [address] [place] [address] Vishal Castillo MD [address] [place] [phone] Left Reverse Total Shoulder Arthroplasty [00818 (CPT??)] 04/08/2024 15:30 EST Post-op Visit [facility] Hand & Upper Extremity Program - [address] [address] Vishal Castillo MD [address] [place] [phone] Scheduled Procedures Name Priority Associated Diagnoses Date/Ti me ARTHROPLASTY, SHOULDER, TOTAL Left rotator cuff tear arthropathy 03/27/2024 14:25 EST documented as of this encounter Visit Diagnoses Not on filedocumented in this encounter Additional Health Concerns Infection Onset Date Last Indicated Resolved Time R/O COVID-19 10/24/2019 10/24/2019 10/28/2019 10:3 2 EDT documented as of this encounter Care Teams Reagent Tender Helper Relationship Specialty Start Date End Date Barbara Conway, [place] [address] [place], [place] [address] PCP - General 08/19/13 documented as of this encounter
--- OUTSIDE RECORDS SUMMARY | 2024-03-18 22:11 | XMS_ITS | Encounter Summary ---
Author Organization [facility] Address [address] [place] [address] Care Team Providers Care Metrologist Name Role Phone Barbara Conway DISTRICT RECRUITER Primary Care Provider [phone] Reason for Visit * Auth/Cert Specialty Diagnoses / Procedures [facility] Referred To Contact Diagnoses Unilateral primary osteoarthritis, right knee Procedures CT TOTAL KNEE ARTHROPLASTY Russel Otto MD [address] [place] [phone] Phone: tel: fax: Referral ID Status Reason Start Date Expiration Date Visits Re quested Visits Authorized [id number] 10/28/2019 1 1 Encounter Details Date Type Department Care Team (Late st Contact Info) Description 10/28/2019 13:20 EDT - 10/28/2019 16:00 EDT Surgery [facility] OR [address] [place] [address] [id number] Russel Otto MD [address] [place] [phone] Right Total Knee Arthroplasty [41687 (CPT??)] Surgery Details Date/Time Status Location OR Service Patient Class Case Class Case Type Trauma Case? 10/28/2019 1320 Posted [facility] OR MOR 04 Orthopedics Surgery Admit H - Elective Panel 1 Procedure LRB Anes Op Region Wound Class Comments Right Total Knee Arthroplasty Right Patient Choice Knee Class I/ Clean surgeon time: 120 minutes Surgeon Surgeon Role Service Panel Russel Otto MD Primary Orthopedics 1 Kristina Elizabeth PA-C Assisting Orthopedics 1 Special Needs visioniare documented in this encounter Social History Tobacco [...] Sign Reading Time Taken Comments Blood Pressure 122/81 10/28/2019 1600 EDT Pulse - - Temperature 36.6 ??C (97.9 ??F) 10/28/2019 1515 EDT Respiratory Rate 10 10/28/2019 1600 EDT Oxygen Saturation 99% 10/28/2019 1600 EDT Inhaled Oxygen Concentration - - Weight 88.5 kg (195 lb) 10/28/2019 1058 EDT Height - - Body Mass Index 34.54 10/28/2019 1700 EDT [...] this encounter Discharge Summaries * Child, Suzy Weir, DEEPIKA - 10/28/2019 1149 EDT Orthopedic Discharge Summary [...] Post Op Visit with Russel Otto MD [facility] Orthopedic Surgery - [facility] (--) [address] [address] Medication List START taking these medications aspirin [...] Your Medications These medications were sent to [facility] - [place], [place] - [address] [facility] [address] [facility] [address] ?? methocarbamoL 750 mg tablet ?? scopolamine [...] Disposition Code Departure Means Destination Home-Health Care [facility] Home documented in this encounter Progress Notes * Katelyn Ramesh - 10/31/2019 1206 EDT I just met with the patient to wish her well and review the Medicare IM. Pt. States she is feeling much better today and is ready to go home. She is in great spirits. Her son is picking her up in [employer] at 1pm today. He will [facility] to purchase her d/c meds. She will receive home PT visits from [facility] . Katelyn Ramesh RN/[facility] #[id number]. * Child, Suzy WallisDEEPIKA sarmiento - 10/31/2019 0854 EDT POD#: 3 s/p right TKA S: [...] by PT; Rx's sent to pharmacy in [facility] for son to fruit picker. Suzy Weir Child, PA-C *[facility] [employer] [phone] * Mary Tessa, PT - 10/31/[address] [facility] Rehabilitation Therapy Acute Therapies [facility] Physical Therapy Discontinue/Discharge Note Date of Service: [...] support d/c home. She will now have brand engineer support for the first week per this therapist's recommendation. Recommend home PT follow up for skilled, guided exercise program progression. SHORT TERM GOALS TIME FRAME: NA INTERMEDIATE GOALS TIME FRAME: 3-5 days ?? Independent [...] other consults recommended at this time Pager: [phone] Tessa Mary, PT 10/31/2019 8:25 * Tessa Mary, PT - 10/31/[address] [facility] Rehabilitation Therapy Acute Therapy [facility] Physical Therapy Contact Note Date of Service: 10/31/2019 Followed up with patient this am. Goals met for d/c home today with family support and home PT. Patient has all necessary equipment. Patient's son to pick her up today at 1300 for transport home. Full discontinue note to follow. Tessa Mary, PT 10/31/2019 8:23 * Krunal Contreras, RN [...] 10/31/2019 2:15 * Katelyn Ramesh - 10/30/2019 1504 EDT Initial Case Management/Social Work Assessment and Discharge Plan/Readmission Risk Assessment REASON FOR ADMISSION: Primary osteoarthritis of right knee Patient understands reason for admission: Yes(POD #2 right total knee replacement, h/o oa, left tkr01/04/13, col rectal ca, dm, gerd, htn, obese 5'3 195lbs) PATIENT CONTACT INFO VERIFIED: Yes PATIENT ADDRESS VERIFIED: Yes Type of housing (single family, condo, apartment, fci, single room occupancy, [facility] funded hotel room, group prison) - sr apartment complex Who does the [...] for at least 3 days. ) Is 14/11 care available? Yes ADVANCED DIRECTIVES, POA &/or COLST IN PLACE: Healthcare Directive: Yes, patient has advance directive for healthcare treatment Type of Healthcare Directive: Health care treatment directive Copy in Chart: Yes, previous copy on file @ [facility] DIRECTIVES FOR FINANCES: Directive For Finances: No TRANSPORTATION: Transportation: Family, Self CULTURAL, ANGLICAN and/or LANGUAGE factors affecting health care/discharge planning: Spiritual/Cultural Requests: None Any factors affecting health care/discharge planning?: No Insurance in Place: Yes Medical Insurance: Yes Type of insurance: Medicare, Supplemental plan to Medicare, Commercial insurance, Coverage for prescriptions Medicare type: A, B Supplemental: [facility] Coverage for medications in place: [facility] Commercial coverage: [facility] Referred to patient financial services: No Nutrition: [...] device: None Community Services: Home health, M[facility], [facility]-none of one time a week Will you [...] walker, shower chair and grab bars Pharmacy: [facility] - [place], [place] - [address] [place] [address] Home Health: Other: POST HOS[facility]ITAL TRANSITION PLAN: Pt will d/c to home with support of family and friends. [facility] PT visits. Her son Jim will provide her ride home at 1pm tomorrow. He will stop at [employer] to fruit picker her d/c meds on the way home. KATELYN RAMESH 10/30/2019 15:05 * Tessa Mary, PT - 10/30/[address] [facility] Rehabilitation Therapy Acute Therapies [facility] Physical Therapy Encounter Note Date of Service: [...] verbalized understanding Team Communication: Updated RN and case repairer re: PT findings/recommendations. Assessment/Plan Assessment Patient motivated [...] patient can solidify increased support at home. hospice clinical manager updated. Plan Continue per plan of care Recommended Discharge Destination: Home with family Recommended Discharge Services: Home health physical therapy Recommended Equipment Needs: Patient has all necessary equipment Other recommendations: No other consults recommended at this time Pager: [phone] Tessa Mary, PT 10/30/2019 9:56 * Russel [...] dressing applied. Incision benign, no active drainage. Snelling in place. LABS: H/H: 10.0/29.7 Bun/Cr: 14/0.69 [...] 9. DIANNA- Anticipate d/c to home with [facility] with homecare PT if cleared by PT [...] of d/c, will send Rxs electronically to [facility] in [place] Kristina Elizabeth PA-C #[id number] As the ortho attending photonics engineering technician today I have personally rounded and met [...] 2/10, upon movement/OOB at most this shift 01/01. Goal this shift is to manage pain [...] assessment note to follow jose. Katelyn Ramesh RN/[facility] #[id number]. D/C plan is home with home PT visits. DIANNA Wedn vs Thurs. Katelyn Lanza * Tessa Mary, PT - 10/29/2019 1042 EDT Rehabilitation Therapies [facility] Physical Therapy Initial Evaluation Note Date [...] to R TKA. The patient lives at [address] [place] [address]. Home environment Lives: Alone Caregiver Support: Part-time assist - daughter can stay with patient at night/overnight, friends and neighbors readily available and can provide a good amount of parts room associate support during the day/evening hrs Equipment Available: [...] pain ??? Bilateral bunions ??? Colon cancer ([facility]) cancerous polyp removed Apr 2005 ??? Colon polyp ??? Complication of anesthesia nausea ??? Diabetes mellitus ([facility]) 10/18/19 A1C 6.5 . Fs daily 120 [...] & vomiting ??? Obesity ??? Rectal cancer ([facility]) stage 1 colo rectal cancer Past Surgical [...] nursing staff assist. Discharge recommendations discussed with case repairer. ASSESSMENT: Upper Quarter Screen: No positive findings. [...] outcome upon discharge. Recommend discharge home with parts room associate support and home health services within two to three days pending medical stability. Skilled physical therapy is indicated in this setting for therapeutic exercise, therapeutic activity and gait training to maximize functional independence and watermelon inspector outcome. No barriers to progress expected once symptoms resolve. SHORT TERM GOALS TIME FRAME: NA INTERMEDIATE GOALS TIME FRAME: 3-5 days ?? Independent [...] provided by physical therapist and/or physical therapist special education educational assistant when medically appropriate. Frequency: QD - BID as appropriate Intensity: 30-45 minutes Duration: During hospitalization Interventions may include:Therapeutic exercises, Therapeutic activities and Gait training Patient/family education: Discharge planning, Equipment, Family training as appropriate, Precautions, Recommendations, Role of physical therapy/rehabilitation, Safety Further Data: NA Recommended Discharge Destination: Home with parts room associate family/friend/neighbor support Recommended Discharge Services: Home health physical therapy Recommended Equipment Needs: Patient has all necessary equipment Other recommendations: No other consults recommended at this time Pager: [phone] Tessa Mary, PT, 10/29/2019, 10:42 * Tessa Mary PT - 10/29/[address] [facility] Rehabilitation Therapy Acute Therapy [facility] Physical Therapy Contact Note Date of Service: 10/29/2019 PT consult received, chart reviewed, evaluation completed. Full note to follow. Anticipate d/c home with parts room associate family/friend support and follow up home PT. Tessa Mary PT 10/29/2019 10:41 * Russel Otto MD [...] intact, pedal pulses palpable. - active drainage. Snelling in place. LABS: H/H: 9.5/28.7 Bun/Cr: 20/0.66 [...] PT and medically stable. Kristina Elizabeth PA-C #[id number] As the ortho attending photonics engineering technician today I have personally rounded and met with the pt today. Questionswere answered and I have not identified any care issues other than those in the resident progress notes from today. Russel Otto MD ?? * Reagan Maria - 10/28/2019 1820 EDT Spiritual Care Note Re: Aretha Garcia : 1945, AGE: 74 y.o. Room: [facility]/HQ1907-00 Aretha Garcia who is listed as Baptism has received a visit from the Spiritual Care Department on 10/28/2019. Need/Assessment: ?? Pt has her knee surgery done this noon. Pt said procedure went well and she's getting ready for PT probably from tomorrow. Pt sounded optimistic on the phone. Self Rising Flour Mixer offered some encouragements and listening support Plan of Action: No Follow up necessary - Needs met Continued Family Support Continued Support from Self Rising Flour Mixer following patient Make a Referral to: Continued [...] Support Other Chaplain Brody BRIGHT 131 Phone [phone] Spiritual Care is available 24 hours a day. Chaplains are available 24 hours a day. For routine consults please call and leave a message with the Spiritual Care Office ([phone]) and patients will be seen within 24 hours. For all emergent consults page the Spiritism or Interfaith on-call Self Rising Flour Mixer through [facility] ([phone]). documented in this encounter H&P Notes * [...] at 10/28/2019 11:57 EDT Source Note - SALES ENGAGEMENT EXECUTIVE, SCAN 2 - 10/22/2019 15:03 EDT documented in this encounter OR Notes * OR Surgeon - Russel Otto MD - 10/28/2019 0000 EDT OPERATIVE REPORT SERVICE DATE: 10/28/2019 PREOPERATIVE DIAGNOSIS: Right knee osteoarthrosis. POSTOPERATIVE DIAGNOSIS: Right knee osteoarthrosis. PROCEDURE: Right total knee arthroplasty with patelloplasty. SURGEON: Russel Otto MD ASSISTANT PRODUCT MANAGER: Kristina Elizabeth PA-C (A PA special education educational assistant was required to help with leg positioning, protectvascular and neurovascular structures, and assist with closure and generalized patient care. No residential appraiser of adequate training was available given caseload [...] seen preoperatively by the anesthesia service and nd the patient was brought to the operating [...] appropriate retractors in place, held by the special education educational assistant to protect the soft tissues and [...] PM / Russel Otto MD ln Confirmation: [id number] Dictation ID: [id number] documented in this encounter Miscellaneous Notes * Plan of Care - Laurel Harper RN - 10/31/2019 1235 EDT Problem: Daily Care Plan Goals Goal: Care Plan Documentation Flowsheets (Taken 10/31/2019 0858) Area of Focus: Discharge Plan Goal This [...] Rx reviewed. Report called to Kya at [facility]. Response: Pt verbalized understanding and demonstrated all [...] 10/28/2019 1802 EDT Data: Pt arrived to [place] [address] from PACU s/p R TKA in stable [...] ordered. Pt oriented to hospital and unit. DaughterNe, updated via phone with pt's permission. Response: Pt reports being comfortable at this time. Currently resting in bed, call dean in reach. Will continue to monitor. SARA RAPP RN 10/28/2019 18:02 * Brief Op Note - Kristina Elizabteh PA-C - 10/28/2019 1142 EDT Brief Post-Op Note Date of Surgery: 10/28/2019 Surgeon: Russel Otto MD Document Control Supervisor: DEEPIKA Fuentes Pre-Op Diagnosis: right knee arthritis [...] Description 03/27/2024 14:25 EST Hospital Encounter [facility] OR [address] [place] [address] [id number] Vishal Castillo MD [address] [place] [phone] 03/27/2024 14:25 EST - 03/27/2024 17:55 EST Surgery [facility] OR [address] [place] [address] [phone] Vishal Castillo MD [address] [place] [phone] Left Reverse Total Shoulder Arthroplasty [55053 (CPT??)] 04/08/2024 15:30 EST Post-op Visit [facility] Hand & Upper Extremity Program - [address] [address] Vishal Castillo MD [address] [place] [phone] Scheduled Procedures Name Priority Associated Diagnoses [...] 11/11/2019 15:1 1 EDT us Scan 2 Sieve Grader Tender PROCEDURE/MINOR SURGICAL OR DERABLES Final Result * IMPLANT RECORD - SCANNED (11/11/2019 15:11 EDT) 11/11/2019 15:1 1 EDT us Scan 2 Sieve Grader Tender PROCEDURE/MINOR SURGICAL OR DERABLES Final Result * (ABNORMAL) POCT GLUCOSE, INTERFACED (10/31/2019 7:39 EDT) Glucose, POC 152(H) 70 - 100 mg/dL 10/31/2019 8:01 [facility] nursing faculty ID [id number] 10/31/2019 8:01 [facility] HN LAB POC COMMENT (GLUCOSE) Test Performed by Nursing Services 10/31/2019 8:01 [facility] Blood CAPILLARY BLOOD / Unknown 10/31/2019 7:39 EDT 10/31/2019 8:01 EDT Kristina Elizabeth PA-C POINT OF CARE TEST ORDERA BLES Final Result Performing Organization Address City/State/[facility] Co de Phone Number [facility] [address] [place] [phone] * (ABNORMAL) COMPLETE BLOOD COUNT (10/31/2019 5:09 EDT) Pathologist [facility] WBC 9.81 4.00 - 12.40 K/cmm 10/31/2019 6:06 [facility] RBC 3.40(L) 3.86 - 5.04 M/cmm 10/31/2019 6:06 [facility] Hemoglobin 9.3(L) 11.6 - 15.2 gm/dL 10/31/2019 6:06 [facility] HCT 28.8(L) 34.9 - 44.4 % 10/31/2019 6:06 [facility] MCV 85 81 - 98 fl 10/31/2019 6:06 [facility] MCH 27.4 26.7 - 33.3 pg 10/31/2019 6:06 [facility] MCHC 32.3 32.1 - 35.9 gm/dL 10/31/2019 6:06 [facility] RDW-CV 13.5 <14.7 % 10/31/2019 6:06 [facility] RDW-SD 41.7 <50.4 fl 10/31/2019 6:06 [facility] PLT 207 141 - 377 K/cmm 10/31/2019 6:06 EDT [facility] MPV 10.1 9.5 - 12.7 fl 10/31/2019 6:06 EDT [facility] Blood VENOUS BLOOD / Unknown Venipuncture / Unknown 10/31/2019 5:09 EDT 10/31/2019 5:55 EDT Kristina Elizabeth PA-C HEMATOLOGY & PF4 ORDERABL ES Final Result [facility] [address] [place] [address] * (ABNORMAL) GLUCOSE, SERUM (10/31/2019 5:09 EDT) Glucose 123(H) 70 - 100 mg/dL 10/31/2019 6:35 EDT [facility] Blood VENOUS BLOOD / Unknown Venipuncture / Unknown 10/31/2019 5:09 EDT 10/31/2019 6:02 EDT Kristina Elizabeth PA-C CHEMISTRY & BLOOD GAS ORD ERABLES Final Result Performing Organization Address City/[facility]/ZIP Co de Phone Number [facility] [address] [place] [address] * (ABNORMAL) ELECTROLYTES (10/31/2019 5:09 EDT) Sodium 132(L) 136 - 145 mEq/L 10/31/2019 7:24 EDT [facility] Potassium 4.1 3.5 - 5.0 mEq/L 10/31/2019 7:24 EDT [facility] Chloride 98 96 - 110 mEq/L 10/31/2019 7:24 EDT [facility] CO2 Total 27 22 - 32 mEq/L 10/31/2019 7:24 EDT [facility] Blood VENOUS BLOOD / Unknown Venipuncture / Unknown 10/31/2019 5:09 EDT 10/31/2019 6:02 EDT Kristina Elizabeth PA-C CHEMISTRY & BLOOD GAS ORD ERABLES Final Result [facility] [address] [place] [address] * CREATININE (10/31/2019 5:09 EDT) Pathologist [facility] Creatinine 0.64 0.52 - 1.04 mg/dL 10/31/2019 6:35 EDT [facility] eGFR 89 >60 mL/min/1.7 3m2 10/31/2019 6:35 EDT [facility] Comment:eGFR calculated sergio burgess CKD-EPI equation for non- Americans. Multiply eGFR by 1.16 for patients. Blood VENOUS BLOOD / Unknown Venipuncture / Unknown 10/31/2019 5:09 EDT 10/31/2019 6:02 EDT Kristina Elizabeth PA-C CHEMISTRY & BLOOD GAS ORD ERABLES Final Result Performing Organization Address City/[facility]/ZIP Co de Phone Number [facility] [address] [place] [address] * BUN (10/31/2019 5:09 EDT) [facility] BUN 14 10 - 26 mg/dL 10/31/2019 6:35 EDT [facility] Blood VENOUS BLOOD / Unknown Venipuncture / Unknown 10/31/2019 5:09 EDT 10/31/2019 6:02 EDT us Kristina Elizabeth PA-C CHEMISTRY & BLOOD GAS ORD ERABLES Final Result [facility] [address] [place] [address] * (ABNORMAL) POCT GLUCOSE, INTERFACED (10/30/2019 22:23 EDT) Pathologist [facility] Glucose, POC 171(H) 70 - 100 mg/dL 10/30/2019 22:24 EDT [facility] nursing faculty ID [id number] 10/30/2019 22:24 EDT [facility] HN LAB POC COMMENT (GLUCOSE) Test Performed by Nursing Services 10/30/2019 22:24 EDT [facility] Blood CAPILLARY BLOOD / Unknown 10/30/2019 22:23 EDT 10/30/2019 22:24 EDT Kristina Elizabeth PA-C POINT OF CARE TEST ORDERA BLES Final Result Performing Organization Address [facility]/ZIP Co de Phone Number [facility] [address] [place] [address] * (ABNORMAL) POCT GLUCOSE, INTERFACED (10/30/2019 17:25 EDT) Glucose, POC 156(H) 70 - 100 mg/dL 10/30/2019 17:26 EDT [facility] nursing faculty ID [id number] 10/30/2019 17:26 EDT [facility] HN LAB POC COMMENT (GLUCOSE) Test Performed by Nursing Services 10/30/2019 17:26 EDT [facility] Blood CAPILLARY BLOOD / Unknown 10/30/2019 17:25 EDT 10/30/2019 17:26 EDT Kristina Elizabeth PA-C POINT OF CARE TEST ORDERA BLES Final Result Performing Organization Address [facility] Co de Phone Number [facility] [address] [place] [address] * (ABNORMAL) POCT GLUCOSE, INTERFACED (10/30/2019 12:05 EDT) Glucose, POC 216(H) 70 - 100 mg/dL 10/30/2019 12:08 EDT [facility] nursing faculty ID [id number] 10/30/2019 12:08 EDT [facility] HN LAB POC COMMENT (GLUCOSE) Test Performed by Nursing Services 10/30/2019 12:08 EDT [facility] Blood CAPILLARY BLOOD / Unknown 10/30/2019 12:05 EDT 10/30/2019 12:08 EDT Kristina Brownch PA-C POINT OF CARE TEST ORDERA BLES Final Result Performing Organization Address City/[facility]/ZIP Co de Phone Number [facility] [address] [place] [address] * (ABNORMAL) POCT GLUCOSE, INTERFACED (10/30/2019 8:19 EDT) Glucose, POC 169(H) 70 - 100 mg/dL 10/30/2019 8:19 EDT [facility] nursing faculty ID [id number] 10/30/2019 8:19 EDT [facility] HN LAB POC COMMENT (GLUCOSE) Test Performed by Nursing Services 10/30/2019 8:19 EDT [facility] Blood CAPILLARY BLOOD / Unknown 10/30/2019 8:19 EDT 10/30/2019 8:19 EDT Kristina Elizabeth PA-C POINT OF CARE TEST ORDERA BLES Final Result Performing Organization Address [facility]/ZIP Co de Phone Number [facility] [address] [place] [address] * (ABNORMAL) COMPLETE BLOOD COUNT (10/30/2019 5:27 EDT) WBC 10.99 4.00 - 12.40 K/cmm 10/30/2019 6:19 [facility] RBC 3.56(L) 3.86 - 5.04 M/cmm 10/30/2019 6:19 [facility] Hemoglobin 10.0(L) 11.6 - 15.2 gm/dL 10/30/2019 6:19 [facility] HCT 29.7(L) 34.9 - 44.4 % 10/30/2019 6:19 [facility] MCV 83 81 - 98 fl 10/30/2019 6:19 [facility] MCH 28.1 26.7 - 33.3 pg 10/30/2019 6:19 [facility] MCHC 33.7 32.1 - 35.9 gm/dL 10/30/2019 6:19 [facility] RDW-CV 13.2 <14.7 % 10/30/2019 6:19 EDT [facility] RDW-SD 40.6 <50.4 fl 10/30/2019 6:19 EDT [facility] PLT 193 141 - 377 K/cmm 10/30/2019 6:19 EDT [facility] MPV 10.2 9.5 - 12.7 fl 10/30/2019 6:19 EDT [facility] Blood VENOUS BLOOD / Unknown Venipuncture / Unknown 10/30/2019 5:27 EDT 10/30/2019 6:09 EDT Kristina Elizabeth PA-C HEMATOLOGY & PF4 ORDERABL ES Final Result Performing Organization Address City/[facility]/ZIP Co de Phone Number [facility] [address] [place] [address] * (ABNORMAL) GLUCOSE, SERUM (10/30/2019 5:27 EDT) Glucose 161(H) 70 - 100 mg/dL 10/30/2019 6:39 EDT [facility] Blood VENOUS BLOOD / Unknown Venipuncture / Unknown 10/30/2019 5:27 EDT 10/30/2019 6:11 EDT us Kristina Elizabeth PA-C CHEMISTRY & BLOOD GAS ORD ERABLES Final Result Performing Organization Address City/[facility]/ZIP Co de Phone Number [facility] [address] [place] [address] * (ABNORMAL) ELECTROLYTES (10/30/2019 5:27 EDT) Sodium 133(L) 136 - 145 mEq/L 10/30/2019 6:39 EDT [facility] Potassium 4.4 3.5 - 5.0 mEq/L 10/30/2019 6:39 EDT [facility] Chloride 100 96 - 110 mEq/L 10/30/2019 6:39 EDT [facility] CO2 Total 25 22 - 32 mEq/L 10/30/2019 6:39 EDT [facility] Blood VENOUS BLOOD / Unknown Venipuncture / Unknown 10/30/2019 5:27 EDT 10/30/2019 6:11 EDT Kristina CARREON-C CHEMISTRY & BLOOD GAS ORD ERABLES Final Result [facility] [address] [place] [address] * CREATININE (10/30/2019 5:27 EDT) Pathologist [facility] Creatinine 0.69 0.52 - 1.04 mg/dL 10/30/2019 6:39 EDT [facility] eGFR 87 >60 mL/min/1.7 3m2 10/30/2019 6:39 EDT [facility] Comment:eGFR calculated sergio burgess CKD-EPI equation for non- Americans. Multiply eGFR by 1.16 for patients. Blood VENOUS BLOOD / Unknown Venipuncture / Unknown 10/30/2019 5:27 EDT 10/30/2019 6:11 EDT Kristina CARREON-C CHEMISTRY & BLOOD GAS ORD ERABLES Final Result [facility] [address] [place] [address] * BUN (10/30/2019 5:27 EDT) [facility] BUN 14 10 - 26 mg/dL 10/30/2019 6:39 EDT [facility] Blood VENOUS BLOOD / Unknown Venipuncture / Unknown 10/30/2019 5:27 EDT 10/30/2019 6:11 EDT Kristina CARREON-C CHEMISTRY & BLOOD GAS ORD ERABLES Final Result [facility] [address] [place] [address] * (ABNORMAL) POCT GLUCOSE, INTERFACED (10/29/2019 21:37 EDT) Pathologist [facility] Glucose, POC 196(H) 70 - 100 mg/dL 10/29/2019 21:39 EDT [facility] nursing faculty ID [id number] 10/29/2019 21:39 EDT [facility] HN LAB POC COMMENT (GLUCOSE) Test Performed by Nursing Services 10/29/2019 21:39 EDT [facility] Blood CAPILLARY BLOOD / Unknown 10/29/2019 21:37 EDT 10/29/2019 21:39 EDT Kristina Elizabeth PA-C POINT OF CARE TEST ORDERA BLES Final Result Performing Organization Address City/[facility]/ZIP Co de Phone Number [facility] [address] [place] [address] * (ABNORMAL) POCT GLUCOSE, INTERFACED (10/29/2019 17:33 EDT) Glucose, POC 149(H) 70 - 100 mg/dL 10/29/2019 17:34 EDT [facility] nursing faculty ID [id number] 10/29/2019 17:34 EDT [facility] HN LAB POC COMMENT (GLUCOSE) Test Performed by Nursing Services 10/29/2019 17:34 EDT [facility] Blood CAPILLARY BLOOD / Unknown 10/29/2019 17:33 EDT 10/29/2019 17:33 EDT us Kristina Elizabeth PA-C POINT OF CARE TEST ORDERA BLES Final Result [facility] [address] [place] [address] * (ABNORMAL) POCT GLUCOSE, INTERFACED (10/29/2019 11:45 EDT) Glucose, POC 148(H) 70 - 100 mg/dL 10/29/2019 11:46 EDT [facility] nursing faculty ID [id number] 10/29/2019 11:46 EDT [facility] HN LAB POC COMMENT (GLUCOSE) Test Performed by Nursing Services 10/29/2019 11:46 EDT [facility] Blood CAPILLARY BLOOD / Unknown 10/29/2019 11:45 EDT 10/29/2019 11:46 EDT Kristina Elizabeth PA-C POINT OF CARE TEST ORDERA BLES Final Result Performing Organization Address [facility]/ZIP Co de Phone Number [facility] [address] [place] [address] * (ABNORMAL) POCT GLUCOSE, INTERFACED (10/29/2019 7:29 EDT) Glucose, POC 155(H) 70 - 100 mg/dL 10/29/2019 7:31 EDT [facility] nursing faculty ID [id number] 10/29/2019 7:31 EDT [facility] HN LAB POC COMMENT (GLUCOSE) Test Performed by Nursing Services 10/29/2019 7:31 EDT [facility] Blood CAPILLARY BLOOD / Unknown 10/29/2019 7:29 EDT 10/29/2019 7:31 EDT us Kristina Elizabeth PA-C POINT OF CARE TEST ORDERA BLES Final Result Performing Organization Address [facility]/ZIP Co de Phone Number [facility] [address] [place] [address] * (ABNORMAL) COMPLETE BLOOD COUNT (10/29/2019 6:31 EDT) WBC 8.55 4.00 - 12.40 K/cmm 10/29/2019 7:26 T [facility] RBC 3.38(L) 3.86 - 5.04 M/cmm 10/29/2019 7:26 [facility] Hemoglobin 9.5(L) 11.6 - 15.2 gm/dL 10/29/2019 7:26 [facility] HCT 28.7(L) 34.9 - 44.4 % 10/29/2019 7:26 [facility] MCV 85 81 - 98 fl 10/29/2019 7:26 [facility] MCH 28.1 26.7 - 33.3 pg 10/29/2019 7:26 EDT [facility] MCHC 33.1 32.1 - 35.9 gm/dL 10/29/2019 7:26 EDT [facility] RDW-CV 13.2 <14.7 % 10/29/2019 7:26 EDT [facility] RDW-SD 40.8 <50.4 fl 10/29/2019 7:26 EDT [facility] PLT 199 141 - 377 K/cmm 10/29/2019 7:26 EDT [facility] MPV 10.2 9.5 - 12.7 fl 10/29/2019 7:26 EDT [facility] Blood VENOUS BLOOD / Unknown Venipuncture / Unknown 10/29/2019 6:31 EDT 10/29/2019 7:15 EDT Kristina Elizabeth PA-C HEMATOLOGY & PF4 ORDERABL ES Final Result Performing Organization Address City/[facility]/ZIP Co de Phone Number [facility] [address] [place] [address] * (ABNORMAL) GLUCOSE, SERUM (10/29/2019 6:31 EDT) Glucose 150(H) 70 - 100 mg/dL 10/29/2019 7:31 EDT [facility] Blood VENOUS BLOOD / Unknown Venipuncture / Unknown 10/29/2019 6:31 EDT 10/29/2019 7:16 EDT Kristina Elizabeth PA-C CHEMISTRY & BLOOD GAS ORD ERABLES Final Result [facility] [address] [place] [address] * (ABNORMAL) ELECTROLYTES (10/29/2019 6:31 EDT) Sodium 134(L) 136 - 145 mEq/L 10/29/2019 7:31 EDT [facility] Potassium 4.3 3.5 - 5.0 mEq/L 10/29/2019 7:31 EDT [facility] Chloride 103 96 - 110 mEq/L 10/29/2019 7:31 EDT [facility] CO2 Total 25 22 - 32 mEq/L 10/29/2019 7:31 EDT [facility] Blood VENOUS BLOOD / Unknown Venipuncture / Unknown 10/29/2019 6:31 EDT 10/29/2019 7:16 EDT us Kristina Elizabeth PA-C CHEMISTRY & BLOOD GAS ORD ERABLES Final Result Performing Organization Address City/[facility] Co de Phone Number [facility] [address] [place] [address] * CREATININE (10/29/2019 6:31 EDT) Creatinine 0.66 0.52 - 1.04 mg/dL 10/29/2019 7:31 EDT [facility] eGFR 88 >60 mL/min/1.7 3m2 10/29/2019 7:31 EDT [facility] Comment:eGFR calculated sergio burgess CKD-EPI equation for non- Americans. Multiply eGFR by 1.16 for patients. Blood VENOUS BLOOD / Unknown Venipuncture / Unknown 10/29/2019 6:31 EDT 10/29/2019 7:16 EDT us Kristina Elizabeth PA-C CHEMISTRY & BLOOD GAS ORD ERABLES Final Result Performing Organization Address City/[facility] Co de Phone Number [facility] [address] [place] [address] * BUN (10/29/2019 6:31 EDT) BUN 20 10 - 26 mg/dL 10/29/2019 7:31 EDT [facility] Blood VENOUS BLOOD / Unknown Venipuncture / Unknown 10/29/2019 6:31 EDT 10/29/2019 7:16 EDT us Kristina Elizabeth PA-C CHEMISTRY & BLOOD GAS ORD ERABLES Final Result [facility] [address] [place] [address] * (ABNORMAL) POCT GLUCOSE, INTERFACED (10/28/2019 19:16 EDT) Glucose, POC 138(H) 70 - 100 mg/dL 10/28/2019 19:17 EDT [facility] nursing faculty ID [id number] 10/28/2019 19:17 EDT [facility] HN LAB POC COMMENT (GLUCOSE) Test Performed by Nursing Services 10/28/2019 19:17 EDT [facility] Blood CAPILLARY BLOOD / Unknown 10/28/2019 19:16 EDT 10/28/2019 19:17 EDT us Kristina Elizabeth PA-C POINT OF CARE TEST ORDERA BLES Final Result Performing Organization Address [facility] Co de Phone Number [facility] [address] [place] [address] * (ABNORMAL) POCT GLUCOSE, INTERFACED (10/28/2019 14:51 EDT) Glucose, POC 136(H) 70 - 100 mg/dL 10/28/2019 14:53 EDT [facility] nursing faculty ID [id number] 10/28/2019 14:53 EDT [facility] HN LAB POC COMMENT (GLUCOSE) Test Performed by Nursing Services 10/28/2019 14:53 EDT [facility] Blood CAPILLARY BLOOD / Unknown 10/28/2019 14:51 EDT 10/28/2019 14:53 EDT us Rosa Atkinson MD POINT OF CARE TEST OR DERABLES Final Result Performing Organization Address [facility]/ZIP Co de Phone Number [facility] [address] [place] [address] * XR KNEE RIGHT 1-2 VIEWS (10/28/2019 14:19 EDT) Anatomical Region Laterality Modality Lower Extremities Right Computed Radio graphy 10/28/2019 15:1 3 EDT Impressions 10/28/2019 15:13 EDT Findings/Impression: Interval right knee arthroplasty with femoral and tibial components in good position. There is expected postprocedural air in the soft tissues about the knee and within the knee joint. Skin clarita are present anteriorly. No unexpected radiopaque foreign [...] knee and within the knee joint. Skin clarita are presentanteriorly. No unexpected radiopaque foreign body is identified. I have personally reviewed the images and the above interpretation andagree with the findings. Russel Otto MD IMG DIAGNOSTIC IMAGING OR DERABLES Final Result * (ABNORMAL) POCT GLUCOSE, INTERFACED (10/28/2019 11:13 EDT) Glucose, POC 133(H) 70 - 100 mg/dL 10/28/2019 11:15 EDT [facility] nursing faculty ID [id number] 10/28/2019 11:15 EDT [facility] HN LAB POC COMMENT (GLUCOSE) Test Performed by Nursing Services 10/28/2019 11:15 EDT [facility] Blood CAPILLARY BLOOD / Unknown 10/28/2019 11:13 EDT 10/28/2019 11:15 EDT us Russel Otto MD POINT OF CARE TEST ORDERA BLES Final Result [facility] [address] [place] [address] * POC US ANESTHESIA NERVE BLOCK ADDUCTOR CANAL (10/28/2019 8:07 EDT) Narrative 10/28/2019 8:07 EDT This is a non-reportable exam. us Kiko Tee MD IMG US POC ORDERABLES Fin al Result * ECG REPORT - SCANNED (10/22/2019 15:03 EDT) 10/22/2019 15:0 3 EDT us Scan 2 Sieve Grader Tender PROCEDURE/MINOR SURGICAL OR DERABLES Final Result documented in this encounter Visit Diagnoses Diagnosis Primary osteoarthritis of right knee- Primary Primary localized osteoarthrosis, lower leg S/P total knee arthroplasty, right PONV (postoperative nausea and vomiting) Nausea with vomiting Primary osteoarthritis of right knee Primary localized osteoarthrosis, lower leg Left rotator [...] mg Given 10/30/2019 8:00 EDT 325 mg atorvastatin (LIPITOR) tablet 20 mg 20 [...] Tablets Given 10/28/2019 21:04 EDT 2 Tablets chlorhexidine gluconate 0.05 % in water (IRRISEPT) irrigation As needed, Starting on Mon10/28/19 at 1254, Until Mon10/28/19 at 1254, Routine, Intraprocedure Given 10/28/2019 12:54 EDT 450 mL bneTRHcyz-LFKUUYOmstz-vweXHQTNY-ropivacaine 80 mcg-0.5 mg-30 mg-150 mg periarticular syringe As needed, Starting on Mon10/28/19 at 1332, Until Mon10/28/19 at 1343, Routine, Intraprocedure Given 10/28/2019 13:32 EDT diphenhydrAMINE (BENADRYL) capsule 25 mg 25 mg, oral, EVERY 6 HOURS PRN, Starting on Mon10/28/19 at 1704, Until Twila 10/31/19 at 1516, Itching, Routine diphenhydrAMINE (BENADRYL) elixir 25 mg 25 mg, oral, EVERY 6 HOURS PRN, Starting on Mon10/28/19 at 1704, Until Twila 10/31/19 at 1516, Itching, Routine diphenhydrAMINE (BENADRYL) injection 25 mg 25 mg, intravenous, EVERY 6 HOURS PRN, Starting on Mon10/28/19 at 1704, Until Twila /9/20 at 1516, Itching, Routine docusate sodium (COLACE) [...] mg Given 10/28/2019 21:03 EDT 300 mg HYDROmorphone (DILAUDID) tablet 2 mg 2 [...] Units Given 10/30/2019 12:06 EDT 5 Units methocarbamoL (ROBAXIN) tablet 750 mg 750 mg, oral, 4 TIMES DAILY, First dose on Mon10/28/19 at 2100, Until Discontinued, Routine Given 10/31/2019 12:18 EDT 75 0 mg Given 10/31/2019 8:02 EDT 750 mg Given 10/30/2019 23:34 EDT 750 mg ondansetron (PF) (ZOFRAN) injection 4 mg [...] EDT 2 Tablets sodium chloride 0.9 % irrigation As needed, Starting on Mon10/28/19 at 1253, Until Mon10/28/19 at 1254, Routine, Intraprocedure Given 10/28/2019 12:53 EDT 3,000 mL traMADoL (ULTRAM) tablet 50-100 mg 50-100 mg, [...] on Mon10/28/19 at 1800, Until Discontinued, Routine 0059 (Given - Provider: Jazmyne Corbett RN)0547 (Given - Provider: Jazmyne Corbett RN - Comment: 01/01 with ambulating to bathroom. prior to getting OOB.)1202 (Given - Provider: Tiffanie Best RN)1742 (Given - Provider: Tiffanie Best RN)2319 (Given - Provider: Krunal Contreras RN) 0532 (Given - Provider: Krunal Contreras RN)1147 (Given - Provider: Laurel Harper, АЛЕКСАНДР)1722 (Given - Provider: Mellisa Trevino RN)2334 (Given - Provider: Krunal Contreras RN) 0610 (Given - Provider: Krunal Contreras RN)1218 (Given - Provider: Laurel Harper, RN) ascorbic acid (vitamin C) (VITAMIN C) tablet 500 mg 500 mg, oral, DAILY WITH BREAKFAST, 10 doses, First dose on Mon10/29/19 at 0800, Last dose on Mon11/07/19 at 0800, Routine 0804 (Given - Provider: Tiffanie Best RN) 0756 (Given - Provider: Laurel Harper, АЛЕКСАНДР) 0802 (Given - Provider: Laurel Harper, RN) aspirin EC tablet 325 mg(Linked Group [...] Routine 0804 (Given - Provider: Tiffanie Best RN)2107 (Given - Provider: Krunal Contreras RN) 08 (Given - Provider: Laurel Harper RN)2015 (Given - Provider: Krunal Contreras RN) 08 (Given - Provider: Laurel Harper, RN) gabapentin (NEURONTIN) capsule 200 mg 200 mg, oral, DAILY WITH LUNCH, First dose on Mon10/29/19 at 1200, Until Discontinued, Routine 1201 (Given - Provider: Tiffanie Best RN) 1147 (Given - Provider: Laurel Harper, RN) 1217 (Given - Provider: Laurel Harper, RN) gabapentin (NEURONTIN) capsule 300 mg 300 [...] - Provider: Laurel Harper RN - Comment: [facility]-216)1726 (Given - Provider: Mellisa Trevino RN) 0802 (Given - Provider: Laurel Harper RN)1219 (Not Given - Provider: Laurel Harper RN - Reason: Patient/family refused) insulin aspart U-100 (NOVOLOG FLEXPEN) injection subcutaneous, AT BEDTIME, First dose on Mon10/28/19 at 2100, Until Discontinued, Routine 215 (Not Given - Provider: Krunal Contreras RN [...] Patient/family refused)1739 (Not Given - Provider: Tiffanie Best RN - Reason: Patient/family refused)2234 (Given - Provider: Krunal Contreras RN) 0757 (Given - Provider: Laurel Harper RN)1147 (Given - Provider: Laurel Harper RN)1723 (Given - Provider: Mellisa Trevino, АЛЕКСАНДР)2334 (Given - Provider: Krunal Contreras RN) 0802 (Given - Provider: Laurel Harper RN)1218 (Given - Provider: Laurel Harper RN) metoprolol XL (TOPROL-XL) tablet 50 mg (CANCELED) 50 mg, oral, 2 TIMES DAILY, First dose on Mon10/28/19 at 2100, Until Discontinued, Routine 0804 (Given - Provider: Tiffanie Best RN) Multivitamins with Minerals tablet 1 Tab 1 Tablet, oral, DAILY WITH DINNER, First dose on Mon10/28/19 at 1730, Until Discontinued, Routine 2123 (Not Given - Provider: Krunal Contreras RN - Reason: Patient/family refused) 1723 (Not Given - Provider: Mellisa Trevino RN - Reason: Nausea/Vomiting) pantoprazole (PROTONIX) tablet 40 mg 40 mg, oral, DAILY, First dose on Mon10/28/19 at 1730, Until Discontinued, Routine 0804 (Given - Provider: Tiffanie Best RN) 0800 (Given - Provider: Laurel Harper RN) 0803 (Given - Provider: Laurel Harper RN) polyethylene glycol 3350 (MIRALAX) packet 17 [...] Routine 1103 (Patch Applied - Provider: Laurel Harper, RN) senna (SENOKOT) tablet 2 Tab 2 Tablet, oral, 2 TIMES DAILY, First dose on Mon10/28/19 at 2100, Until Discontinued, Routine 0803 (Given - Provider: Tiffanie Best RN)210 (Given - Provider: Krunal Contreras RN) 08 (Given - Provider: Laurel Harper, RN)2016 (Given - Provider: Krunal Contreras RN) 0803 (Given - Provider: Laurel Harper, RN) traMADoL (ULTRAM) tablet 50-100 mg 50-100 mg, oral, EVERY 6 HOURS, First dose on Mon10/28/19 at 1800, Until Discontinued, Routine 0058 (Given - Provider: Jazmyne Corbett, АЛЕКСАНДР)0546 (Given - Provider: Jazmyne Corbett RN - Comment: 01/01 with ambulating to bathroom. prior to getting OOB.)1154 (Not Given - Provider: Tiffanie Best RN - Reason: Patient/family refused)1742 (Given - Provider: Tiffanie Best RN)2319 (Given - Provider: Krunal Contreras RN) 0531 (Given - Provider: Krunal Contreras RN)1147 (Given - Provider: Laurel Harper, АЛЕКСАНДР)1723 (Given - Provider: Mellisa Trevino RN)2333 (Given - Provider: Krunal Contreras RN) 0610 (Given - Provider: Krunal Contreras RN)1217 (Given - Provider: Laurel Harper, RN) zinc sulfate (ZINCATE) capsule 220 mg 220 mg, oral, DAILY WITH LUNCH, 10 doses, First dose on Mon10/29/19 at 1200, Last dose on Mon11/07/19 at 1200, Routine 2123 (Not Given - Provider: Krunal Contreras RN - Reason: Patient/family refused) 1147 (Given - Provider: Laurel Harper, RN) 1218 (Given - Provider: Laurel Harper, RN) PRN Medication Order 10/29/2019 10/30/2019 10/31/2019 bisacodyL (DULCOLAX) suppository 10 mg 10 mg, rectal, DAILY PRN, Starting on Mon10/28/19 at 1704, Until Mon10/31/19 at 1516, Constipation, Routine calcium carbonate (TUMS) 200 mg calcium (500 mg) per chewable tablet tablet,chewable 2 Tab 2 Tablet, oral, 4 TIMES DAILY PRN, Starting on Mon10/28/19 at 2039, Until Mon10/31/19 at 1516, Heartburn, Routine 2113 (Given - Provider: Krunal Contreras RN) dextrose [...] 1704, Until Mon10/30/19 at 0307, Nausea, Routine 2055 (Given - Provider: Krunal Contreras RN) ondansetron [...] PRN, Starting on Mon10/30/19 at 0305, Until [facility] 10/31/19 at 1516, Nausea, Routine documented in this encounter Orders Medications Ordered That Asif ht Not Have Been Administered Count Last Ordered Date First Ordered Date HYDROmorphone (DILAUDID) tablet 2 mg 1 11/2019 ondansetron (PF) (ZOFRAN) injection 4 mg 3 10/30/2019 10/28/2019 ondansetron (ZOFRAN-ODT) dis integrating tablet 4 mg 1 10/30/2019 scopolamine (TRANSDERM-SCOP) 1 mg over 3 days patch 1 Patch 1 10/30/2019 lactated ringers BOLUS 500 mL 1 10/29/2019 acetaminophen (TYLENOL) tablet 1,000 mg 2 0 10/28/2019 ascorbic acid (vitamin C) (V ITAMIN C) tablet 500 mg 1 10/28/2019 aspirin EC tablet 325 mg 1 10/28/2019 aspirin EC tablet 650 mg 1 10/28/2019 atenoloL (TENORMIN) tablet 50 mg 1 10/28/19 20 atorvastatin (LIPITOR) tablet 20 mg 1 10/27 atropine 0.1 mg/mL syringe 0.5 mg 1 020 bisacodyL (DULCOLAX) suppository 10 mg 1 calcium carbonate (TUMS) 200 mg calcium (500 mg) per chewable tablet tablet,chewable 2 Tab 1 10/28/2019 ceFAZolin (ANCEF) 2,000 mg i n sodium chloride 0.9% 50 mL IVPB 2 10/28/2019 ceFAZolin (ANCEF) syringe 2 g 1 10/28/2019 cholecalciferol (Vitamin D3) tablet 2,000 Units 1 10/28/2019 dextrose 50 % solution 12.5 g 2 10/28/2019 diphenhydrAMINE (BENADRYL) capsule 25 mg 1 10/28/2019 diphenhydrAMINE (BENADRYL) elixir 25 mg 1 0 10/28/2019 diphenhydrAMINE (BENADRYL) i njection 12.5 mg 1 10/28/2019 diphenhydrAMINE (BENADRYL) injection 25 mg 1 10/28/2019 docusate sodium (COLACE) capsule 200 mg 1 0 10/28/2019 fentaNYL citrate (PF) injection 25-50 mcg 1 10/28/2019 gabapentin (NEURONTIN) capsule 200 mg 1 09/2019 gabapentin (NEURONTIN) capsule 300 mg 1 09/2019 gabapentin (NEURONTIN) capsule 900 mg 1 09/2019 glucagon injection 1 mg 2 10/28/2019 HYDROmorphone (DILAUDID) tablet 2-4 mg 1 HYDROmorphone (PF) (DILAUDID ) 0.5 mg/0.5 mL syringe 0.3-0.5 mg 1 10/28/2019 HYDROmorphone (PF) (DILAUDID ) 0.5 mg/0.5 mL syringe 0.5 mg 1 10/28/2019 insulin aspart U-100 (NOVOLO G FLEXPEN) injection 2 10/28/2019 lactated ringers (LR) infusion 2 10/28/2019 lidocaine (PF) 10 mg/mL (1 % ) injection 2 mg 1 10/28/2019 lisinopriL (PRINIVIL) tablet 40 mg 1 2019 methocarbamoL (ROBAXIN) tablet 750 mg 1 09/2019 metoCLOPramide (REGLAN) injection 10 mg 1 0 10/28/2019 metoprolol XL (TOPROL-XL) tablet 50 mg 1 Multivitamins with Minerals tablet 1 Tab 1 10/28/2019 naloxone (NARCAN) injection 0.2 mg 1 2019 pantoprazole (PROTONIX) tablet 40 mg 1 09/2019 polyethylene glycol 3350 (ME RALAX) packet 17 g 2 10/28/2019 senna (SENOKOT) tablet 2 Tab 1 10/28/2019 sodium chloride 0.9 % (flush) flush 3 mL 1 10/28/2019 sodium chloride 0.9 % (NS) infusion 1 10/27 traMADoL (ULTRAM) tablet 50-100 mg 1 2019 tranexamic acid (CYKLOKAPRON ) injection 1,000 mg 2 10/28/2019 zinc sulfate (ZINCATE) capsule 220 mg 1 09/2019 Nursing Count Last Ordered Date First Orde [...] documented as of this encounter Care Teams Metrologist Relationship Specialty Start Date End Date Barbara Conawy, DISTRICT RECRUITER [address] [place] [address] PCP - General 08/19/13 documented as of this encounter
--- OUTSIDE RECORDS SUMMARY | 2024-03-18 22:11 | XMS_ITS | Encounter Summary ---
Author Organization [facility] Address [address] [place] [address] Care Team Providers Care Curriculum Assistant Principal Name Role Phone Barbara Conway Myla WAITER/WAITRESS INFORMAL Primary Care Provider [phone] Reason for Visit * Reason Onset Date Comments Other 10/23/2019 Encounter Details Date Type Department Care Team (Late st Contact Info) Description 10/23/2019 Telephone [facility] Orthopedic Surgery - [facility] [address] [place], [place] [phone] Oksana Atkins, RN [address] [place] [address] Other Social History Tobacco Use Types Packs/Day [...] Date Author Yes 01/04/2013 20:00 EDT Christopher Elmore, RN documented in this encounter Miscellaneous Notes * Telephone Encounter - Oksana Atkins RN - 10/23/2019 1126 EDT I spoke with the patient and gave her the time of her surgical case and the time to arrive at [facility]. She was instructed no food after midnight and may have clear liquids up to three hours prior to the start time, water, charlie blossom , cranberry juice or apple juice. The patient verbalized back understanding with no barriers met. documented in this encounter Plan of Treatment Upcoming Encounters Date Type Department Care Team (Latest Contact Info) Description 03/27/2024 14:25 EST Hospital Encounter [facility] OR [address] [place] [phone] Vishal Castillo MD [address] [place] [phone] 03/27/2024 14:25 EST - 03/27/2024 17:55 EST Surgery [facility] OR [address] [place] [address] [phone] Vishal Castillo MD [address] [place] [phone] Left Reverse Total Shoulder Arthroplasty [55319 (CPT??)] 04/08/2024 15:30 EST Post-op Visit [facility] Hand & Upper Extremity Program - [address] [place] [address] Vishal Castillo MD [address] [place] [phone] Scheduled Procedures Name Priority Associated Diagnoses Date/Ti me ARTHROPLASTY, SHOULDER, TOTAL Left rotator cuff tear arthropathy 03/27/2024 14:25 EST documented as of this encounter Visit Diagnoses Not on filedocumented in this encounter Care Teams Curriculum Assistant Principal Relationship Specialty Start Date End Date Barbara Conway NP [address] [address] PCP - General 08/19/13 documented as of this encounter
[2024-03-18 22:12] LABS: Abs Immature Grans 0.02 10^3/uL (0.0-0.06); Absolute Basophil Count 0.04 10^3/uL (0.0-0.2); Absolute Eosinophil Count 0.13 10^3/uL (0.0-0.7); Absolute Lymphocyte Count 2.86 10^3/uL (1.2-3.4); Absolute Monocyte Count 0.43 10^3/uL (0.1-0.8); Absolute Neutrophil Count 3.64 10^3/uL (1.2-6.7); Basophils % 0.6 %; Eosinophils % 1.8 %; HCT 40.4 % (36.0-46.0); HGB 12.8 g/dL (11.2-15.7); Immature Grans % 0.3 %; Lymphocytes % 40.2 %; MCHC 31.7 % (32.0-36.0); MCV 92 fL (80-95); MPV 10.3 fL (8.0-11.0); Neutrophils % 51.1 %; Platelet Count 276 10^3/uL (130-400); RBC 4.41 10^6/uL (3.93-5.22); RDW 13.2 % (11.7-14.6); RDW-SD 44.7 fL; WBC 7.12 10^3/uL (4.4-10.8)
--- OUTSIDE RECORDS SUMMARY | 2024-03-18 22:12 | XMS_ITS | Encounter Summary ---
Author Organization [facility] Address [address] [place] [address] Care Team Providers Care Ordnance Engineer Name Role Phone ZoraidaBarbara Myla TILE AND MOTTLE SUPERVISOR Primary Care Provider [phone] Reason for Visit * Reason Comments Knee Pain right knee pain Encounter Details Date Type Department Care Team (Latest Contact Info) Description 09/12/2017 15:00 EDT Office Visit [facility] Orthopedic Surgery - [facility] [address] [place] [address] Russel Otto MD [address] [place] [phone] Obesity due to excess calories, unspecified obesity severity (Primary Dx); Chronic pain of right knee; Primary osteoarthritis of right knee Discharge Disposition: Auto Discharge Social History Tobacco Use Types Packs/Day Years [...] - - Weight 88.5 kg (195 lb) 09/12/2017 1459 EDT Height 160 cm (5' 2.99) 09/12/2017 1459 EDT Body Mass Index 34.55 09/12/2017 1459 EDT documented in this encounter Mental Status * Because of a physical, mental, or emotional condition, do you have serious difficulty concentrating, remembering, or making decisions? (5 years old or older) Answer Entry Date Author Yes 01/04/2013 20:00 EDT Christopher Elmore RN documented in this encounter Discharge Diagnoses Diagnosis M17.11 Unilateral primary osteoarthritis, right knee-M17.11[ICD-10-CM] E66.09 Other obesity due to excess calories-E66.09[ICD-10-CM] documented in this encounter Patient Instructions * Patient Instructions* Abby Rubalcava - 09/12/2017 15:00 EDT Post Injection Care The information below is provided to help you manage your post-injection experience. Please feel free to call if you have any concerns after receiving your injection. Medications used in your injection today may include: ??? Marcaine (a long acting anesthetic) ??? Lidocaine (a short acting anesthetic) ??? Steroid (synthetic cortisone - i.e. Depo-Medrol) ??? Euflexxa or Gel One (viscoelastic supplementation) Normal findings after the injection include: ??? Soreness, slight throbbing or swelling at the injection site for up to two days ??? Two to three days for the pain to be relieved ??? Increased joint pain or discomfort for the first 24 to 48 hours before the steroid takes effect Recommendations after injection: ??? Rest the injected extremity for the next TWO DAYS (no exercise or strenuous activity) ??? Apply ice to the injection area for 10 to 15 minutes every hour or two for the first day ??? Take Tylenol (acetaminophen) or Advil (ibuprofen) as directed by adolescent psychiatrist if not contraindicated ??? No Swimming for 24hours; No Soaking or Hot Tub for 48hours. Please contact our office if the following occurs: ??? Severe itching or rash anywhere on your body; if this is accompanied by shortness of breath please go to your nearest Emergency Room ??? Extreme redness, swelling or warmth at the injection site ??? These symptoms could be signs of an early infection, which is rare The amount and duration of pain relief from an injection varies widely between patients; some report pain relief for months, while other patients report only a few weeks of relief. DIABETIC WARNING: If you are diabetic and this injection may elevate your blood sugars for the nextone to five days. Please monitor your blood sugars closely and if they fail to return to your acceptable level please see your primary care physician Thank you for choosing the [facility] for your care. If you have any questions after receiving an injection, or if your pain does not subside, please call at [phone] and let us know. Our goal is to lessen your pain and improve your function. documented in this encounter Discharge Disposition Disposition Code Departure Means Destination Auto Discharge documented in this encounter Progress Notes * Abby Rubalcava - 09/12/2017 1500 EDT Patient is here to follow up and discuss her right knee.She is S/P left total knee in 2012 and doing well.walks everyday and uses a cane due to her leg weakness.She does feel like bones are rubbing together when she is active. Pain comes and goes.She last elected to have a cortisone injection 05/02/16 which did offer relief for her. She is asking for her left lower leg she has a bunch that has beenthere for about 3 months with a black and blue present. She can't recall if she bumped it or not.She would like to discuss her options. REVIEW OF SYSTEMS: Yes No Yes No [...] Changes x Rash x Balance Issues x Patient had the following injection in to the right knee Lidocaine HCL (5mL)- 1% Med lot number: [id number] [facility] number:[id number] BUD: 09/2018 Intermediate Manager: [employer] Bupivacaine HCL inj. 0.5% (5mg/mL) Med lot number: [id number] [place] number: [id number] BUD: 05/2019 Intermediate Manager: [employer] Depo Medrol 40mg/mL Med lot number: [id number] NDC number: [id number] BUD: 07/2018 Intermediate Manager: [email or web address] Co[employer]am Rubalcava 15:54 * Russel Otto MD - 09/12/2017 1500 EDT I have reviewed the review of systems and histories in the note by the TONI 72-year-old female with right knee pain she has pain feels like bone is rubbing his bone when she walks or is active she has steroid injection in April 2016 which did help her she has some fullnessin the leg for about 3 months with some black and blue discoloration she wanted to discuss does arsalan stevenson it Had a total knee replacement on the left in 2012 and she been able to walk well with that leg usinga cane however due to weakness She is alert and oriented comfortable moving her trunk and upper body Examination of the knee on the left A routine examination of the knee was performed including ligamentous testing for varus/valgus laxity, Humberto's anterior/posterior drawer testing, and Thessaly and Justin's test. Assessment of skin, scars, swelling and effusion was performed. Range of motion of the knee was assessed. Neurovascular status of the lower extremities was assessed. Q-angle, patella mobility, and general mechanical alignment in the lower extremities were assessed. Crepitation was assessed at the patellofemoral joint. Atrophy in the quadriceps and calf was assessed, as was gait. Relevant findings: Left knee has pain at the joint line was stable ligamentous structures she is overweight Encounter Diagnoses Name Primary? Obesity due to excess calories, unspecified obesity severity Yes ??? Chronic pain of right knee ??? Primary osteoarthritis of right knee We talked about the nature of arthritis I went over this carefully on a visual aid in a model. We talked about the options for treatment including most conservative care with leg strengthening exercises either on their own or with the therapist occasionally use of cryotherapy, compression, bracing,rest, activity modification, weight loss, alternative therapies, aeub-mab-oohkrjn type medications,assistive walking devices if required, other options include injection either steroid or viscose supplement. Or surgical approaches if others fail She would like steroid injection worked well over a year ago, hoping to avoid knee replacement Separate from the time I spent providing care associated with the procedure noted in the progress note, I spent an additional 10 minutes in face to face discussion with the patient about the diagnosis, discussing on a model and or handouts and diagrams, and options for treatment expectations, risksand possible benefits of treatment. The indications and contraindication as well as the risks and benefits of the injection were reviewed with the patient. The patient understands the risks, including failure to relieve pain, infection, allergic reaction and increased pain. At this time the patient elects to proceed with the injection. Verbal consent was obtained. A procedural timeout was performed confirming patient???s identity, procedure, and laterality. Extremity was prepped in a sterile fashion. Then using ethyl chloride spray as local anesthetic, The RIGHT knee was injected with a combination of 1 cc marcaine, 1 cc lidocaine, and 40 mg/ml depo- medrol through a parapatellar approach. The patient responded well to the inje ction and there were no complications. If she is not improved with time we will repeat x-rays of her affected right knee to help guide further assessment documented in this encounter Plan of Treatment Upcoming Encounters Date Type Department Care Team (Latest Contact Info) Description 03/27/2024 14:25 [facility] Hospital Encounter [facility] OR [address] [place] [phone] Vishal Castillo MD [address] [place] [phone] 03/27/2024 14:25 EST - 03/27/2024 17:55 EST Surgery [facility] OR [address] [place] [phone] Vishal Castillo MD [address] [place] [phone] Left Reverse Total Shoulder Arthroplasty [75228 (CPT??)] 04/08/2024 15:30 EST Post-op Visit [facility] Hand & Upper Extremity Program - [address] [place] [address] Vishal Castillo MD [address] [place] [phone] Scheduled Procedures Name Priority Associated Diagnoses Date/Ti me ARTHROPLASTY, SHOULDER, TOTAL Left rotator cuff tear arthropathy 03/27/2024 14:25 EST documented as of this encounter Visit Diagnoses Diagnosis Obesity due to excess calories, unspecified obesity severity- Primary Chronic pain of right knee Primary osteoarthritis of right knee Primary localized osteoarthrosis, lower leg Left rotator cuff tear arthropathy documented in this encounter Care Teams Ordnance Engineer Relationship Specialty Start Date End Date Barbara Conway NP [address] [place] [address] PCP - General 08/19/13 documented as of this encounter
--- OUTSIDE RECORDS SUMMARY | 2024-03-18 22:12 | XMS_ITS | Encounter Summary ---
Author Organization [facility] Address [address] [place] [address] Care Team Providers Care Substation Operator Conversion Name Role Phone Henri Conwayi Myla INDUSTRIAL EDUCATION INSTRUCTOR Primary Care Provider [phone] Reason for Referral * Radiology Services (Routine) - Closed Specialty Diagnoses / Procedures Referred By Maryuri sarmiento Referred To Contact Radiology Diagnoses Arthritis of right knee Chronic pain of right knee Primary osteoarthritis of right knee Procedures MR KNEE WO CONTRAST RIGHT Russel Otto MD Phone: tel: fax: Referral ID Status Reason Start Date Expiration Date Visits Re quested Visits Authorized [id number] Closed 05/30/2019 1 1 * Radiology Services (Routine) - Specialty Report Received Specialty Diagnoses / Procedures Referred By Maryuri sarmiento Referred To Contact Diagnoses Arthritis of right knee Chronic pain of right knee Primary osteoarthritis of right knee Procedures XR BONE LENGTH STUDY Russel Otto MD Phone: tel: fax: Referral ID Status Reason Start Date Expiration Date V isits Requested Visits Authorized [id number] Specialty Report Received 05/30/2019 1 1 Encounter Details Date Type Department Care Team (Late st Contact Info) Description 05/30/2019 Orders Only [facility] Orthopedic Surgery - [facility] [address] [place], [place] [phone] Russel Otto MD [address] [place] [phone] Arthritis of right knee (Primary Dx); Chronic pain of right knee; Primary osteoarthritis of right knee Social History Tobacco Use Types Packs/Day Years [...] Info) Description 03/27/2024 14:25 EST Hospital Encounter [facility] OR [address] [place] [phone] Vishal Castillo MD [address] [place] [phone] 03/27/2024 14:25 EST - 03/27/2024 17:55 EST Surgery [facility] OR [address] [place] [phone] Vishal Castillo MD [address] [place] [phone] Left Reverse Total Shoulder Arthroplasty [38968 (CPT??)] 04/08/2024 15:30 EST Post-op Visit [facility] Hand & Upper Extremity Program - [address] [address] Vishal Castillo MD [address] [place] [phone] Scheduled Procedures Name Priority Associated Diagnoses Date/Ti me ARTHROPLASTY, SHOULDER, TOTAL Left rotator cuff tear arthropathy 03/27/2024 14:25 EST documented as of this encounter Procedures Procedure Name Priority Date/Time Associated Diagnosis Comments XR BONE LENGTH STUDY Routine 09/02/2019 14:31 EDT Arthritis of right knee Chronic pain of right knee Primary osteoarthritis of right knee documented in this encounter Results * MR KNEE WO CONTRAST RIGHT (09/02/2019 15:25 EDT) Anatomical Region Laterality Modality Lower Extremities Right Magnetic Reson ance 09/02/2019 16:1 0 EDT Narrative 09/02/2019 16:10 EDT MR KNEE WO CONTRAST RIGHT ??09/02/2019 3:15 PM Signs and Symptoms/Comments: ?? VISIONAIRE STUDY Comparison: Knee radiographs 05/28/2019. Technique: A single proton density 2-D turbo spin echo (CONNOR) sequence of the right knee was obtained. This is a limited study performed for preoperative planning as part of our Visionaire protocol in this patient scheduled for a total right knee replacement. Findings: There are severe degenerative changes in the medial femorotibial compartment with large areas of full-thickness cartilage loss in the weightbearing surfaces of the medial femoral condyle and medial tibial plateau. There is extensive degenerative tearing of the medial meniscus posterior horn and body segments. There are moderate degenerative changes in the lateral femorotibial compartment. The lateral meniscus demonstrates evidence of a high-grade radial tear near the posterior root attachment as well as an undersurface tear near the junction between the posterior horn and body segment. Severe degenerative changes are present in the patellofemoral compartment particularly in the medial facet. The patellar tendon and distal quadriceps tendon appear intact. There is a complete tear of the ACL with associated anterior translation of the tibia with respect to the femur. The PCL appears grossly intact. There is a small knee joint effusion outlining findings of synovitis and small intra-articular bodies. The effusion is partially decompressed into a large Dueñas's cyst measuring 7 cm in length. Accurate assessment of the medial and lateral supporting structures of the knee including the MCL and LCL complexes is suboptimal in the absence of imaging sequences in different orthogonal planes. The MCL complex appears bowed due to marginal osteophytes and a peripherally extruded medial meniscus. The LCL complex appears to be grossly intact. Procedure Note Arturo Falk, DO - 09/02/2019 MR KNEE WO CONTRAST RIGHT 09/02/2019 3:15 PM Signs and Symptoms/Comments: VISIONAIRE STUDY Comparison: Knee radiographs 05/28/2019. Technique: A single proton density 2-D turbo spin echo (CONNOR) sequence of the rightknee was obtained. This is a limited study performed for preoperativeplanning as part of our Visionaire protocol in this patient scheduled fora total right knee replacement. Findings: There are severe degenerative changes in the medial femorotibialcompartment with large areas of full-thickness cartilage loss in theweightbearing surfaces of the medial femoral condyle and medial tibialplateau. There is extensive degenerative tearing of the medial meniscusposterior horn and body segments. There are moderate degenerative changes in the lateral femorotibialcompartment. The lateral meniscus demonstrates evidence of a high-graderadial tear near the posterior root attachment as well as an undersurfacetear near the junction between the posterior horn and body segment. Severe degenerative changes are present in the patellofemoral compartmentparticularly in the medial facet. The patellar tendon and distalquadriceps tendon appear intact. There is a complete tear of the ACL with associated anterior translationof the tibia with respect to the femur. The PCL appears grossly intact. There is a small knee joint effusion outlining findings of synovitis andsmall intra-articular bodies. The effusion is partially decompressed intoa large Dueñas's cyst measuring 7 cm in length. Accurate assessment of the medial and lateral supporting structures of theknee including the MCL and LCL complexes is suboptimal in the absence ofimaging sequences in different orthogonal planes. The MCL complex appearsbowed due to marginal osteophytes and a peripherally extruded medialmeniscus. The LCL complex appears to be grossly intact. us Russel Otto MD [facility] [place] Final Result * XR BONE LENGTH STUDY (09/02/2019 14:31 EDT) Anatomical Region Laterality Modality Lower Extremities Computed Radio graphy 09/04/2019 20:5 0 EDT Impressions 09/04/2019 20:50 EDT FINDINGS / IMPRESSION: Bone length was determined for the lower extremities by measuring the distance from the superior aspect of the femoral head to the middle of the distal tibial plafond on both sides. The mechanical axis for the lower extremities was determined as well by measuring the distance from the midpoint of the intercondylar eminence of the tibia to the aforementioned line for measurement of the bone length on each side. The right lower extremity measures approximately 87.3 cm and the mechanical axis is passing approximately 2.8 cm from the midpoint of the intercondylar eminence of the right tibia. There are severe degenerative changes in the medial femorotibial compartment with mild degenerative changes in the lateral compartment. Mild degenerative changes seen in the right hip and ankle. No discrete fracture seen. The left lower extremity measures approximately 87.7 cm in this patient status post knee arthroplasty. The femoral and tibial components of the prosthesis appear in satisfactory and stable position on this single frontal view without evidence of failure or loosening. Mild degenerative changes seen in the right hip and ankle. No discrete fracture seen. Narrative 09/04/2019 20:50 EDT EXAM/TECHNIQUE: XR BONE LENGTH STUDY ??09/02/2019 3:00 PM HISTORY: VISIONAIRE STUDY COMPARISON: Radiographs of both knees dated May 28, 2019. Procedure Note Roque Kay MD - 09/04/2019 EXAM/TECHNIQUE: XR BONE LENGTH STUDY 09/02/2019 3:00 PM HISTORY: VISIONAIRE STUDY COMPARISON: Radiographs of both knees dated May 28, 2019. IMPRESSION FINDINGS / IMPRESSION: Bone length was determined for the lower extremities by measuring thedistance from the superior aspect of the femoral head to the middle of thedistal tibial plafond on both sides. The mechanical axis for the lowerextremities was determined as well by measuring the distance from themidpoint of the intercondylar eminence of the tibia to the aforementionedline for measurement of the bone length on each side. The right lower extremity measures approximately 87.3 cm and themechanical axis is passing approximately 2.8 cm from the midpoint of theintercondylar eminence of the right tibia. There are severe degenerativechanges in the medial femorotibial compartment with mild degenerativechanges in the lateral compartment. Mild degenerative changes seen in theright hip and ankle. No discrete fracture seen. The left lower extremity measures approximately 87.7 cm in this patientstatus post knee arthroplasty. The femoral and tibial components of theprosthesis appear in satisfactory and stable position on this singlefrontal view without evidence of failure or loosening. Mild degenerativechanges seen in the right hip and ankle. No discrete fracture seen. us Russel Otto MD IMG DIAGNOSTIC IMAGING OR DERABLES Final Result documented in this encounter Visit Diagnoses Diagnosis Arthritis of right knee- Primary Unspecified arthropathy, lower leg Chronic pain of right knee Primary osteoarthritis of right knee Primary localized osteoarthrosis, lower leg Arthritis of right knee Unspecified arthropathy, lower leg Chronic pain of right knee Primary osteoarthritis of right knee Primary localized osteoarthrosis, lower leg Left rotator cuff tear arthropathy documented in this encounter Care Teams Substation Operator Conversion Relationship Specialty Start Date End Date Barbara Conway NP [address] [place] [address] PCP - General 08/19/13 documented as of this encounter
--- OUTSIDE RECORDS SUMMARY | 2024-03-18 22:12 | XMS_ITS | Encounter Summary ---
Author Organization [facility] Address [address] [place] [address] Care Team Providers Care Ore Bridge Operator Name Role Phone Barbara Conway BAND AND CUFF CUTTER Primary Care Provider [phone] Encounter Details Date Type Department Care Team (Latest Contact Info) Description 10/07/2016 8:07 EDT - 10/07/2016 23:59 EDT Hospital Encounter [address] [address] Barbara Conway, BAND AND CUFF CUTTER [address] [place] [address] [phone] Discharge Disposition: Auto Discharge Social History Tobacco [...] documented in this encounter Discharge Diagnoses Diagnosis Z12.31 Encounter for screening mammogram for malignant neoplasm of breast-Z12.31[ICD-10-CM] documented in this encounter Medications at Time of Discharge ascorbic acid (VITAMIN C) 500 mg tablet Take 1 Tab by mouth at bedtime. 01/06/2013 atenolol (TENORMIN) 50 mg tablet Take 1 Tablet by mouth every morning. atorvastatin (LIPITOR) 20 mg tablet Take 1 Tablet by mouth at bedtime. lisinopriL (PRINIVIL) 20 mg tablet Take 1 Tablet by mouth every morning. 04/30/1987 metFORMIN (GLUCOPHAGE) 500 mg tablet Take 1 Tablet by mouth 2 times daily with breakfast and dinner. 12/29/2009 omeprazole (PRILOSEC) 40 mg capsule Take 1 Capsule by mouth every morning. 04/30/2008 aspirin 81 mg EC tablet Take 81 mg by mouth daily. 0 BETA-CAROTENE,A, W-C & E (ANTI-OXIDANT ORAL) Take by mouth daily. Reported on 05/02/2016 04/30/2007 0 bisacodyl (DULCOLAX) [address] 1 Suppository rectally daily as needed for Other (constipation). 01/08/2013 0 Calcium-Cholecalc iferol, D3, (CALCIUM 600 + D,3,) 600-200 mg-unit Cap Take by mouth daily. 04/30/1999 0 docusate sodium (COLACE) 100 mg capsule Take 2 Caps by mouth 2 times daily. 01/06/2013 0 magnesium hydroxide (MILK OF MAGNESIA) 400 mg/5 mL suspension Take 30 mL by mouth 2 times daily as needed for Other (constipation). 01/08/2013 0 methocarbamol (ROBAXIN) 500 mg tablet Take 1-2 Tabs by mouth every 6 hours as needed (muscle spasms). 40 Tab 1 01/06/2013 0 multivitamin (DAILY VITAMIN) per tablet Take 1 Tab by mouth daily. 04/30/2007 0 nitrofurantoin (MACRODANTIN) 100 mg capsule Take 100 mg by mouth daily. Reported on 08/31/2016 04/30/2007 0 oxyCODONE (ROXICODONE) 5 mg immediate release tablet Take 1-3 Tabs by mouth every 4 hours as needed for Pain. 60 Tab 0 01/08/2013 0 PEG 3350-Electrolytes (MIRALAX) 17 gram packet Take 17 g by mouth daily. 01/06/2013 0 polyethylene glycol (GOLYTELY) 236-22.74-6.74 -5.86 gram suspension Patient is to follow one time directions sent from Dr Oliva's office. 1 Bottle 08/19/2016 0 scopolamine (TRANSDERM-SCOP) 1.[address] 1 Patch onto the skin every 72 hours. 4 Patch 1 01/06/2013 0 warfarin (COUMADIN) 2 mg tabletIndications :deep vein thrombosis prevention Take 1.5 Tabs by mouth at bedtime. Indications: DEEP VEIN THROMBOSIS PREVENTION 40 Tab 1 01/08/2013 0 warfarin (COUMADIN) 2 mg tabletIndications :deep vein thrombosis prevention Take 1 Tab by mouth at bedtime. Indications: DEEP VEIN THROMBOSIS PREVENTION 40 Tab 1 01/06/2013 0 documented as of this encounter Discharge Disposition Disposition Code Departure Means Destination Auto Discharge Home documented in this encounter Plan of Treatment Upcoming Encounters Date Type Department Care Team (Latest Contact Info) Description 03/27/2024 14:25 EST Hospital Encounter [facility] [place] [address] [place] [address] [phone] Vishal Castillo MD [address] [place] [phone] 03/27/2024 14:25 EST - 03/27/2024 17:55 EST Surgery [facility] OR [address] [place] [address] Vishal Castillo MD [address] [place] [phone] Left Reverse Total Shoulder Arthroplasty [27093 (CPT??)] 04/08/2024 15:30 EST Post-op Visit [facility] Hand & Upper Extremity Program - [address] [place] [address] Vishal Castillo MD [address] [place] [phone] Scheduled Procedures Name Priority Associated Diagnoses Date/Ti me ARTHROPLASTY, SHOULDER, TOTAL Left rotator cuff tear arthropathy 03/27/2024 14:25 EST documented as of this encounter Visit Diagnoses Not on filedocumented in this encounter Care Teams Ore Bridge Operator Relationship Specialty Start Date End Date Barbara Conway NP [address] [place] [address] PCP - General 08/19/13 documented as of this encounter
--- OUTSIDE RECORDS SUMMARY | 2024-03-18 22:12 | XMS_ITS | Encounter Summary ---
Author Organization [facility] Address [address] [place] [address] Care Team Providers Care Investor Relations Coordinator Name Role Phone Zoraida Barbara Myla CRIB TENDER Primary Care Provider [phone] Reason for Visit * Radiology Services (Routine) - Specialty Report Received Specialty Diagnoses / Procedures Referred By Maryuri sarmiento Referred To Contact Diagnoses Arthritis of right knee Chronic pain of right knee Primary osteoarthritis of right knee Procedures XR BONE LENGTH STUDY Russel Otto MD Phone: tel: fax: Referral ID Status Reason Start Date Expiration Date V isits Requested Visits Authorized [id number] Specialty Report Received 05/30/2019 1 1 Encounter Details Date Type Department Care Team (Latest Contact Info) Description 09/02/2019 14:01 EDT - 09/03/2019 23:59 EDT [address] Encounter [address] [facility] [address] [place], [place] [phone] Discharge Disposition: Home or Self Care Social [...] have Coronavirus / COVID-19? No / Unsure 09/02/2019 13:58 EDT documented as of this encounter Mental [...] Take 1 Tablet by mouth at bedtime. gabapentin (NEURONTIN) 100 mg capsule Take 1 [...] for 28 days. 56 Tab 10/30/2019 0 aspirin 81 mg EC tablet Take 81 [...] daily as needed for Constipation. 10/30/2019 1 docusate sodium (COLACE) 100 mg capsule Take 2 Caps by mouth 2 times daily. 01/06/2013 0 magnesium hydroxide (MILK OF MAGNESIA) 400 mg/5 mL suspension Take 30 mL by mouth 2 times daily as needed for Other (constipation). 01/08/2013 0 methocarbamol (ROBAXIN) 500 mg tablet Take 1-2 Tabs by mouth every 6 hours as needed (muscle spasms). 40 Tab 1 01/06/2013 0 methocarbamoL (ROBAXIN) 750 mg tablet Take 1 Tab by mouth 4 times daily. 50 Tab 10/30/2019 1 multivitamin (DAILY VITAMIN) per tablet Take 1 [...] Dr Oliva's office. 1 Bottle 08/19/2016 0 polyethylene glycol 3350 (MIRALAX) 17 gram packet Take 17 g by mouth daily as needed (constipation). 10/30/2019 1 scopolamine (TRANSDERM-SCOP) 1 mg over [address] 1 Patch onto the skin every 72 hours. 6 Patch 10/30/2019 1 scopolamine (TRANSDERM-SCOP) 1.[address] 1 Patch onto the skin every 72 hours. 4 Patch 1 01/06/2013 0 traMADoL (ULTRAM) 50 mg tablet Take 1-2 Tabs by mouth every 6 hours. Daily Max: 400 mg 50 Tab 10/30/2019 1 warfarin (COUMADIN) 2 mg tabletIndications :deep vein [...] Info) Description 03/27/2024 14:25 EST Hospital Encounter [facility] OR [address] [place] [address] [phone] Vishal Castillo MD [address] [place] [phone] 03/27/2024 14:25 EST - 03/27/2024 17:55 EST Surgery [facility] OR [address] [place] [phone] Vishal Castillo MD [address] [place] [phone] Left Reverse Total Shoulder Arthroplasty [20974 (CPT??)] 04/08/2024 15:30 EST Post-op Visit [facility] Hand & Upper Extremity Program - [address] [address] Vishal Castillo MD [address] [place] [phone] Scheduled Procedures Name Priority Associated Diagnoses Date/Ti me ARTHROPLASTY, SHOULDER, TOTAL Left rotator cuff tear arthropathy 03/27/2024 14:25 EST documented as of this encounter Procedures Procedure Name Priority Date/Time Associated Diagnosis Comments XR BONE LENGTH STUDY Routine 09/02/2019 14:31 EDT Arthritis of right knee Chronic pain of right knee Primary osteoarthritis of right knee documented in this encounter Results * XR BONE LENGTH STUDY (09/02/2019 14:31 [...] hip and ankle. No discrete fracture seen. Russel Otto MD IMG DIAGNOSTIC IMAGING OR DERABLES Final Result documented in this encounter Visit Diagnoses Not on filedocumented in this encounter Care Teams Investor Relations Coordinator Relationship Specialty Start Date End Date Barbara Conway, [place] [address] [place] [address] PCP - General 08/19/13 documented as of this encounter
--- OUTSIDE RECORDS SUMMARY | 2024-03-18 22:12 | XMS_ITS | Encounter Summary ---
Author Organization [facility] Address [address] [place] [address] Care Team Providers Care Lineman Apprentice Name Role Phone Barbara Conway Myla REGIONAL SALES REPRESENTATIVE Primary Care Provider [phone] Reason for Visit * Reason Onset Date Comments Appointment Related 06/23/2016 Encounter Details Date Type Department Care Team (Late st Contact Info) Description 06/23/2016 Telephone [facility] General Surgery - [facility] [address] [place], [place] [address] Arnel Oliva MD [address] [facility], [address] [place] [address] Appointment Related Social History Tobacco Use Types Packs/Day Years Used Date Smoking Tobacco: Never Alcohol Use Standard Drinks/Week Comments [...] encounter Miscellaneous Notes * Telephone Encounter - Rakan Edwards - 11/01/2016 1305 EDT Pt aware documented in this encounter Plan of Treatment Upcoming Encounters Date Type Department Care Team (Latest Contact Info) Description 03/27/2024 14:25 EST Hospital Encounter [facility] OR [address] [place] [address] [phone] Vishal Castillo MD [address] [place] [phone] 03/27/2024 14:25 EST - 03/27/2024 17:55 EST Surgery [facility] OR [address] [place] [address] [phone] Vishal Castillo MD [address] [place] [phone] Left Reverse Total Shoulder Arthroplasty [19083 (CPT??)] 04/08/2024 15:30 EST Post-op Visit [facility] Hand & Upper Extremity Program - [address] [place] [address] Vishal Castillo MD [address] [place] [phone] Scheduled Procedures Name Priority Associated Diagnoses Date/Ti me ARTHROPLASTY, SHOULDER, TOTAL Left rotator cuff tear arthropathy 03/27/2024 14:25 EST documented as of this encounter Visit Diagnoses Not on filedocumented in this encounter Care Teams Lineman Apprentice Relationship Specialty Start Date End Date Barbara Conway NP [address] [place], [place] [phone] PCP - General 08/19/13 documented as of this encounter
--- OUTSIDE RECORDS SUMMARY | 2024-03-18 22:12 | XMS_ITS | Encounter Summary ---
Author Organization [facility] Address [address] [place] [address] Care Team Providers Care Contract Clerk Automobile Name Role Phone Barbara Conway DECORATOR LIGHTING FIXTURES Primary Care Provider [phone] Encounter Details Date Type Department Care Team (Late st Contact Info) Description 10/07/2016 Results Only Imaging [facility] [phone] Barbara Conway, DECORATOR LIGHTING FIXTURES [address] [place], [place] [address] Social History Tobacco Use Types Packs/Day Years [...] Answer Entry Date Author Yes 01/04/2013 20:00 Christopher Oliveros RN documented in this encounter Plan of Treatment Upcoming Encounters Date Type Department Care Team (Latest Contact Info) Description 03/27/2024 14:25 EST Hospital Encounter [facility] [place] [address] [place] [address] [phone] Vishal Casitllo MD [facility] [place] [phone] 03/27/2024 14:25 EST - 03/27/2024 17:55 EST Surgery [facility] [place] [address] [place] [address] Vishal Castillo MD [address] [place] [phone] Left Reverse Total Shoulder Arthroplasty [50656 (CPT??)] 04/08/2024 15:30 EST Post-op Visit [facility] Hand & Upper Extremity Program - [address] [place] [address] Vishal Castillo MD [address] [place] [phone] Scheduled Procedures Name Priority Associated Diagnoses Date/Ti me ARTHROPLASTY, SHOULDER, TOTAL Left rotator cuff tear arthropathy 03/27/2024 14:25 EST documented as of this encounter Procedures Procedure Name Priority Date/Time Associated Diagnosis Comments MA 2D/3D BILATERAL CLOVIS ROUTINE SCREENING MAMMO 10/07/2016 13:28 EDT documented in this encounter Results * MA 2D/3D BILATERAL CLOVIS ROUTINE SCREENING MAMMO (10/07/2016 13:28 EDT) Anatomical Region Laterality Modality Other 10/07/2016 13:2 8 EDT 10/10/2016 15:53 EDT Narrative 10/10/2016 15:53 EDT Comparison has been made to previous images. Bilateral Breast Findings: (Routine 3D tomosynthesis with synthesized 2D views with CAD) There are scattered fibroglandular densities (25% - 50% fibroglandular). No significant masses, calcifications or other abnormalities are seen. IMPRESSION: BILATERAL BREASTS: Negative, no evidence of malignancy. Normal interval follow-up is recommended in 12 months. OVERALL ASSESSMENT - CATEGORY 1 - NEGATIVE END OF IMPRESSION These results will be communicated to your patient via a lay letter from Radiology. If any additional imaging is needed we will contact your patient directly. I have personally reviewed the images and the above interpretation and agree with the findings. Procedure Note Sanam Blankenship MD - 10/10/2016 Comparison has been made to previous images. Bilateral Breast Findings: (Routine 3D tomosynthesis with synthesized 2D views with CAD) There are scattered fibroglandular densities (25% - 50% fibroglandular). No significant masses, calcifications or other abnormalities are seen. IMPRESSION: BILATERAL BREASTS: Negative, no evidence of malignancy. Normal interval follow-up is recommended in 12 months. OVERALL ASSESSMENT - CATEGORY 1 - NEGATIVE END OF IMPRESSION These results will be communicated to your patient via a lay letter from Radiology. If any additional imaging is needed we will contact your patient directly. I have personally reviewed the images and the above interpretation and agree with the findings. Barbara Conway NP IMG MAMMOGRAPHY ORDERABLES Fi nal Result documented in this encounter Visit Diagnoses Not on filedocumented in this encounter Care Teams Contract Clerk Automobile Relationship Specialty Start Date End Date Barbara Conway, DECORATOR LIGHTING FIXTURES [address] [place] [phone] PCP - General 08/19/13 documented as of this encounter
--- OUTSIDE RECORDS SUMMARY | 2024-03-18 22:12 | XMS_ITS | Encounter Summary ---
Author Organization [facility] Address [address] [place] [address] Care Team Providers Care Site Project Manager Name Role Phone Barbara Conway CASH ON DELIVERY CLERK Primary Care Provider [phone] Encounter Details Date Type Department Care Team (Latest Contact Info) Description 01/10/2019 7:47 EDT - 01/10/2019 23:59 EDT Hospital Encounter [address] [address] Barbara Conway, CASH ON DELIVERY CLERK [address] [place] [phone] Discharge Disposition: Auto Discharge Social History Tobacco [...] Info) Description 03/27/2024 14:25 EST Hospital Encounter [facility] OR [address] [place] [address] [phone] Vishal Castillo MD [address] [place] [phone] 03/27/2024 14:25 EST - 03/27/2024 17:55 EST Surgery [facility] OR [address] [place] [address] Vishal Castillo MD [address] [place] [phone] Left Reverse Total Shoulder Arthroplasty [84498 (CPT??)] 04/08/2024 15:30 EST Post-op Visit [facility] Hand & Upper Extremity Program - [address] [place] [address] Vishal Castillo MD [address] [place] [phone] Scheduled Procedures Name Priority Associated Diagnoses Date/Ti me ARTHROPLASTY, SHOULDER, TOTAL Left rotator cuff tear arthropathy 03/27/2024 14:25 EST documented as of this encounter Visit Diagnoses Not on filedocumented in this encounter Care Teams Site Project Manager Relationship Specialty Start Date End Date Barbara Conway NP [address] [place] [address] PCP - General 08/19/13 documented as of this encounter
--- OUTSIDE RECORDS SUMMARY | 2024-03-18 22:12 | XMS_ITS | Encounter Summary ---
Author Organization [facility] Address [address] [place] [address] Care Team Providers Care Education Consultant Name Role Phone ZoraidaBarbara Myla SUBMARINE ELEMENT COORDINATOR Primary Care Provider [phone] Reason for Visit * Reason Comments Follow-up Encounter Details Date Type Department Care Team (Late st Contact Info) Description 05/28/2019 9:00 EST Office Visit [facility] Orthopedic Surgery - [facility] [address] [place] [address] Russel Otto MD [address] [place] [phone] Acute pain of left knee (Primary Dx); Obesity due to excess calories, unspecified obesity severity; Arthritis of right knee; History of left knee replacement; Type 2 diabetes mellitus without complication, without long-term current use of insulin ([facility]) Social History Tobacco Use Types Packs/Day Years [...] - - Weight 88.5 kg (195 lb) 05/28/2019 0839 EST Height 160 cm (5' 2.99) 05/28/2019 0839 EST Body Mass Index 34.55 05/28/2019 0839 EST documented in this encounter Mental Status * Because of a physical, mental, or emotional condition, do you have serious difficulty concentrating, remembering, or making decisions? (5 years old or older) Answer Entry Date Author Yes 01/04/2013 20:00 EDT Christopher Elmore RN documented in this encounter Progress Notes * Abby Rubalcava MA - 05/28/2019899 EST Patient is here to follow up for right knee. She has had knee pain years and she has been getting by with cortisone injections. Her last injection was .05.12 Which was short lasting.She feels and hears her knee grinding. She does tylenol and motrin.She takes gabapentin twice a day for spinal stenosis.She would like to go over options.of a knee replacement and would like new xray's today. REVIEW OF SYSTEMS: Yes No Yes No [...] Issues x * Russel Otto MD - 05/28/2019 09 EST I have reviewed the review of systems and histories in the note by the TONI 73-year-old female with a history of known right knee osteoarthritis has been previously treated with time activity modification steroid injections medications she had a contralateral knee replacement has been very pleased with that. But she has right leg persistent pain and.associated grinding restrictions and activity with walking standing she is had therapy in the past does regular exercise program. She takes gabapentin and Motrin has not been successful with weight loss. She is alert and oriented comfortable and conversant her right knee has crepitus some restrictions at the extremes of motion ligaments are stable she is tender at the medial joint line with palpable spurs she walks with a limp. There is no parapatellar pain whatsoever X-rays today 4 views show severe medial joint space narrowing eburnation of [id number] changes large medial bony spurs some lateral spurs some patellofemoral spurs but relatively spared patellofemoral joint no fractures or dislocations her contralateral knee replacement appears intact on the frontal views this is not adequate to lean consultant any loosening or anything like that nor was it for that purpose 1. Acute pain of left knee XR KNEE RIGHT 4 OR MORE VIEWS CANCELED: XR KNEE LEFT 4 OR MORE VIEWS 2. Obesity due to excess calories, unspecified obesity severity 3. Arthritis of right knee 4. History of left knee replacement 5. Type 2 diabetes mellitus without complication, without long-term current use of insulin ([facility]) We talked about the nature of arthritis I went over this carefully on a visual aid in a model. We talked about the options for treatment including most conservative care with leg strengthening exercises either on their own or with the therapist occasionally use of cryotherapy, compression, bracing,rest, activity modification, weight loss, alternative therapies, [id number] type medications,assistive walking devices if required, other options include injection either steroid or viscose supplement. Or surgical approaches if others fail She knows she is exhausted conservative care and wants to move ahead with total knee replacement onthe right her patella is not a source of pain clinically and we could leave her patella intact withpatelloplasty only The risks and benefits of surgery were discussed at length including the risks of bleeding, infection, nerve damage, artery damage, as well as damage t the tendinous structures, muscular structures, structures of the skin and even some loss of skin covering. Other risks with surgery on the extremities include blood clots in both the extremity or the lung, the anesthetic risks, allergic risks and even the risks of from some of the above. Additionally, when working with bones there are risks of fracture, non union or malunion, malalignment, with avascular necrosis and arthritis. In any surgery there is the risk that the surgery will not work, the pain may continue and occasionally may become worse. Surgery requires that there will be scars, and certainly stiffness and swelling can occur with any surgery around a joint in the extremity. Metal hardware or sutures used can fail or cause problems in the area of the injury, as well. There can be settling or subsidence or loosening of the implants.If a deep infection occurs, often the patient has to have the implants removed. Occasionally the need for repeat surgery or other surgery to salvage or revise a problem are necessary. The patient understands the benefits and the risks of surgery including, but not limited to , some of the risks discussed above that are relevant to this particular case. In addition I discussed the extensive rehabilitation required from the patient intensive during thefirst 3 months, but it can take up to a year to for some patients to feel like they have regain adequate motion and adequate pain relief. While approximately 85% of patients are pleased with their total knee replacement, it may take time. In addition everyone is required to be on blood thinner for a period of time after the surgery to protect them from blood clot and we will help manage or arrange that. In addition dental prophylactics with antibiotics will be required at least for a period of time to protect from hematogenous infection spreading to the knee replacement. The patient would like to consider proceeding with surgery. I stressed the importance of involving family members or caregivers in the decision and I am happy to see them again with their support system if they would likebefore the surgery. I believe this patient would benefit significantly from custom created cutting blocks for their total knee replacement because these blocks would significantly reduce blood loss from intramedullary drilling. These blocks allow cuts to be made without any tibia or femoral long bone drilling obviously creating much less blood loss and much less invasion through the long bones. I believe this technique creates less exposed surface for osteomyelitis as well, not only because of reduced blood loss but also because of reduce surgery and exposure to the channels of the long bone which medullary drilling creates. Otherwise, the intramedullary drilling could exposes almost a foot and a half of extrabony tissue that could get infected as well as the leak blood marrow. In addition, having custom created blocks increases the accuracy of the surgical cuts by reducing much of the intraoperative calculus which is built off the intramedullary drill aretha. This is done by creating that calculus and building it into the cutting blocs after viewing of the noninvasive MRI and x-rays that this patient requires in order to build the cutting blocks. It is those studies the MRI and alignment x-ray that allow the cutting guides to be created - allow the patient to have a less invasive surgery with less blood loss less potential harm and less operative time. These are all of great benefit to the patient and obviously because of the risk reduction, harm reduction, and reduced time in surgery for the patient, there is also great benefit to the patient's insurance carrier. As a surgeon, with the patient's best interest in mind, this is the only technique I use at this time. It is therefore required if I am to be the surgeon to help see the patient through this procedure and this important surgical milestones in their functional recovery. She signed informed consent We spent time for questions and answers to ensure patient's satisfaction and understanding, and allowed time for a back and forth documented in this encounter Plan of Treatment Upcoming Encounters Date Type Department Care Team (Latest Contact Info) Description 03/27/2024 14:25 EST Hospital Encounter [facility] OR [address] [place] [address] [id number] Vishal Castillo MD [address] [place] [phone] 03/27/2024 14:25 EST - 03/27/2024 17:55 EST Surgery [facility] OR [address] [place] [address] [id number] Vishal Castillo MD [address] [place] [phone] Left Reverse Total Shoulder Arthroplasty [49004 (CPT??)] 04/08/2024 15:30 EST Post-op Visit [facility] Hand & Upper Extremity Program - [place] [address] [place] [address] Vishal Castillo MD [address] [place] [phone] Scheduled Procedures Name Priority Associated Diagnoses Date/Ti me ARTHROPLASTY, SHOULDER, TOTAL Left rotator cuff tear arthropathy 03/27/2024 14:25 EST documented as of this encounter Procedures Procedure Name Priority Date/Time Associated Diagnosis Comments XR KNEE RIGHT 4 OR MORE VIEWS Routine 05/28/2019 9:02 EST Acute pain of left knee documented in this encounter Results * XR KNEE RIGHT 4 OR MORE VIEWS (05/28/2019 9:02 EST) Anatomical Region Laterality Modality Lower Extremities Right Computed Radio graphy 05/28/2019 10:0 5 EST Impressions 05/28/2019 10:05 EST FINDINGS / IMPRESSION: Right knee: 4 views of the right knee show no acute abnormality. There are tricompartmental degenerative changes which are severe in the medial compartment and at least moderate in the lateral and patellofemoral compartments. There is a small joint effusion. Left knee: 2 frontal views of the left knee show a total knee arthroplasty which appears grossly intact and well aligned. The lack of a lateral view precludes assessment for joint effusion. Narrative 05/28/2019 10:05 EST EXAM/TECHNIQUE: XR KNEE RIGHT 4 OR MORE VIEWS, XR KNEE LEFT 1-2 VIEWS ??05/28/2019 8:51 AM HISTORY: ?? right knee pain COMPARISON: Bilateral knee radiographs 05/02/2016. Procedure Note Arturo Falk, DO - 05/28/2019 EXAM/TECHNIQUE: XR KNEE RIGHT 4 OR MORE VIEWS, XR KNEE LEFT 1-2 VIEWS 05/28/2019 8:51 AM HISTORY: right knee pain COMPARISON: Bilateral knee radiographs 05/02/2016. IMPRESSION FINDINGS / IMPRESSION: Right knee: 4 views of the right knee show no acute abnormality. There aretricompartmental degenerative changes which are severe in the medialcompartment and at least moderate in the lateral and patellofemoralcompartments. There is a small joint effusion. Left knee: 2 frontal views of the left knee show a total knee arthroplastywhich appears grossly intact and well aligned. The lack of a lateral viewprecludes assessment for joint effusion. us Russel Otto MD [facility] DER[facility] Final Result * XR KNEE LEFT 1-2 VIEWS (05/28/2019 9:01 EST) Anatomical Region Laterality Modality Lower Extremities Left Computed Radio graphy 05/28/2019 10:0 5 EST Impressions 05/28/2019 10:05 EST FINDINGS / IMPRESSION: Right knee: 4 views of the right knee show no acute abnormality. There are tricompartmental degenerative changes which are severe in the medial compartment and at least moderate in the lateral and patellofemoral compartments. There is a small joint effusion. Left knee: 2 frontal views of the left knee show a total knee arthroplasty which appears grossly intact and well aligned. The lack of a lateral view precludes assessment for joint effusion. Narrative 05/28/2019 10:05 EST EXAM/TECHNIQUE: XR KNEE RIGHT 4 OR MORE VIEWS, XR KNEE LEFT 1-2 VIEWS ??05/28/2019 8:51 AM HISTORY: ?? right knee pain COMPARISON: Bilateral knee radiographs 05/02/2016. Procedure Note Arturo Falk, DO - 05/28/2019 EXAM/TECHNIQUE: XR KNEE RIGHT 4 OR MORE VIEWS, XR KNEE LEFT 1-2 VIEWS 05/28/2019 8:51 AM HISTORY: right knee pain COMPARISON: Bilateral knee radiographs 05/02/2016. IMPRESSION FINDINGS / IMPRESSION: Right knee: 4 views of the right knee show no acute abnormality. There aretricompartmental degenerative changes which are severe in the medialcompartment and at least moderate in the lateral and patellofemoralcompartments. There is a small joint effusion. Left knee: 2 frontal views of the left knee show a total knee arthroplastywhich appears grossly intact and well aligned. The lack of a lateral viewprecludes assessment for joint effusion. Russel Otto MD [facility] OR DERABLES Final Result documented in this encounter Visit Diagnoses Diagnosis Acute pain of left knee- Primary Obesity due to excess calories, unspecified obesity severity Arthritis of right knee Unspecified arthropathy, lower leg History of left knee replacement Type 2 diabetes mellitus without complication, without long-term current use of insulin ([facility]) Left rotator cuff tear arthropathy documented in this encounter Orders Case Request Count Last Ordered Date First Orde red Date CASE REQUEST OPERATING ROOM 1 05/28/2019 documented in this encounter Care Teams Education Consultant Relationship Specialty Start Date End Date Barbara Conway NP [address] [place] [address] PCP - General 08/19/13 documented as of this encounter
--- OUTSIDE RECORDS SUMMARY | 2024-03-18 22:12 | XMS_ITS | Encounter Summary ---
Author Organization [facility] Address [address] [place] [address] Care Team Providers Care Agile Qa Tester Name Role Phone Barbara Conway Myla HUMAN FACTORS SCIENTIST Primary Care Provider [phone] Reason for Visit * Reason Onset Date Comments Diagnostic Imaging Report 06/12/2019 vision iare studies Encounter Details Date Type Department Care Team (Late st Contact Info) Description 06/12/2019 Telephone [facility] Orthopedic Surgery - [facility] [address] [place], [place] [id number] Russel Otto MD [address] [place] [phone] Diagnostic Imaging Report (visioniare studies) Social History Tobacco Use Types Packs/Day Years [...] Christopher Oliveros RN documented in this encounter Miscellaneous Notes * Telephone Encounter - Abby Rubalcava MA - 06/12/2019 0813 EST ----- Message from Tessa Frank sent at 06/11/2019 12:12 EST ----- Regarding: [place] scheduled for Monday September 02, 2019 Arrive by [id number] at 1515 (45 min) [facility] [address] RM 1 MR KNEE WO CONTRAST RIGHT Check in 1hr prior(2:15pm) for bone length xray's, Lata cameron. ThanksTessa documented in this encounter Plan of Treatment Upcoming Encounters Date Type Department Care Team (Latest Contact Info) Description 03/27/2024 14:25 EST Hospital Encounter [facility] OR [address] [place] [address] [id number] Vishal Castillo MD [address] [place] [phone] 03/27/2024 14:25 EST - 03/27/2024 17:55 EST Surgery [facility] OR [address] [place] [address] [id number] Vishal Castillo MD [address] [place] [phone] Left Reverse Total Shoulder Arthroplasty [79461 (CPT??)] 04/08/2024 15:30 EST Post-op Visit [facility] Hand & Upper Extremity Program - [address] [address] Vishal Castillo MD [address] [place] [phone] Scheduled Procedures Name Priority Associated Diagnoses Date/Ti me ARTHROPLASTY, SHOULDER, TOTAL Left rotator cuff tear arthropathy 03/27/2024 14:25 EST documented as of this encounter Visit Diagnoses Not on filedocumented in this encounter Care Teams Agile Qa Tester Relationship Specialty Start Date End Date Barbara Conway NP [address] [place] [address] PCP - General 08/19/13 documented as of this encounter
--- OUTSIDE RECORDS SUMMARY | 2024-03-18 22:12 | XMS_ITS | Encounter Summary ---
Author Organization [facility] Address [address] [place] [address] Care Team Providers Care Interactive Art Director Name Role Phone Barbara Conway LEATHER PATCHER Primary Care Provider [phone] Reason for Referral * Radiology Services (Routine) - Closed Specialty Diagnoses / Procedures Referred By Contac t Referred To Contact Diagnoses Chronic pain of right knee Procedures KNEES 3 VIEWS Russel Otto MD Phone: tel: fax: Referral ID Status Reason Start Date Expiration Date Visits Re quested Visits Authorized [id number] Closed 05/02/2016 1 1 * Radiology Services (Routine) - Closed Specialty Diagnoses / Procedures Referred By Contac t Referred To Contact Diagnoses Chronic pain of right knee Procedures KNEE 1 OR 2 VIEWS Russel Otto MD Phone: tel: fax: Referral ID Status Reason Start Date Expiration Date Visits Re quested Visits Authorized [id number] Closed 05/02/2016 1 1 Reason for Visit * Reason Comments Knee Pain right Encounter Details Date Type Department Care Team (Latest Contact Info) Description 05/02/2016 11:00 EST Office Visit [facility] Orthopedic Surgery - [address] [place], [place] [id number] Russel Otto MD [address] [place] [address] Chronic pain of right knee (Primary Dx); Obesity due to excess calories, unspecified obesity severity; Primary osteoarthritis of right knee; Status post total left knee replacement; Anserine bursitis Discharge Disposition: Auto Discharge Social History Tobacco [...] - Inhaled Oxygen Concentration - - Weight 91.6 kg (202 lb) 05/02/2016 1103 EST Height 158.9 cm (5' 2.56) 05/02/2016 1103 EST Body Mass Index 36.29 05/02/2016 1103 EST documented in this encounter Mental Status * Because of a physical, mental, or emotional condition, do you have serious difficulty concentrating, remembering, or making decisions? (5 years old or older) Answer Entry Date Author Yes 01/04/2013 20:00 Christopher Oliveros RN documented in this encounter Discharge Diagnoses Diagnosis M17.0 Bilateral primary osteoarthritis of knee-M17.0[ICD-10-CM] M17.11 Unilateral primary osteoarthritis, right knee-M17.11[ICD-10-CM] M25.561 Pain in right knee-M25.561[ICD-10-CM] E66.09 Other obesity due to excess calories-E66.09[ICD-10-CM] Z96.652 Presence of left artificial knee joint-Z96.652[ICD-10-CM] M70.50 Other bursitis of knee, unspecified knee-M70.50[ICD-10-CM] G89.29 Other chronic pain-G89.29[ICD-10-CM] documented in this encounter Patient Instructions * Patient Instructions* Abby Rubalcava - 05/02/2016 11:00 EST Post Injection Care The information below is [...] (acetaminophen) or Advil (ibuprofen) as directed by hospitalist if not contraindicated ??? No Swimming for [...] care physician Thank you for choosing the [facility] for your care. If you have any questions after receiving an injection, or if your pain does not subside, please call at [phone] and let us know. Our goal is to lessen your pain and improve your function. documented in this encounter Discharge Disposition Disposition Code Departure Means Destination Auto Discharge documented in this encounter Progress Notes * Russel Otto MD - 05/02/2016 1100 EST Patient is here today to discuss her right knee symptoms with pain.She has had a left total knee 01/04/2013 and doing well. She was last seen for her right knee here in 2012 where she elected to have a bursal tendon injection on 07/31/2012. She has had an increasing in pain lately. She recalls the injection working for few months. She does walk everyday and uses a cane due to her leg weakness. Todaywants to discuss where the right side has progressed. She does feel like bones are rubbing togetherwhen she is active. Pain comes and goes She does have pain in the right hip as well. REVIEW OF SYSTEMS: Yes No Yes No [...] Changes x Rash x Balance Issues x X-rays PA flexed AP both lateral right knee show [id number] changes medially with joint space narrowing spurs significantly medially and some patellofemoral spurring but less so seem to have well-seated knee replacement or contralateral side Examination of the right knee Tenderness to the medial joint line stable ligamentous structures full range of motion minimal pes bursa tenderness today no hip pain with motion We discussed the options medication strengthening therapy bracing weight loss knee replacement steroid injections for viscus supplement injections chose for steroids today in hopes of postponing the replacement The indications and contraindication as well as the risks and benefits of the injection were reviewed with the patient. The patient understands the risks, including failure to relieve pain, infection, allergic reaction and increased pain. At this time the patient elects to proceed with the injection. Using ethyl chloride spray as local anesthetic, The RIGHT knee was injected with a combination of1 cc marcaine, 1 cc lidocaine, and 40 mg/ml depo-medrol through a parapatellar approach. The patient responded well to the injection and there were no complications. Encounter Diagnoses Name Primary? Chronic pain of right knee Yes ??? Obesity due to excess calories, unspecified obesity severity ??? Primary osteoarthritis of right knee ??? Status post total left knee replacement ??? Anserine bursitis * Abby Rubalcava - 05/02/2016 1100 EST Patient had the following injection in to the right knee Xylocaine-MPF 1% Med lot number: [id number] NDC number: 51229-277-05 Exp Date: 10/11 Echocardiograph Tech: BESS[employer] Bupivacaine HCL inj. 0.5% (5mg/mL) Med lot number: [id number] NDC number: 4105-6499-64 Exp date: 10/2017 Echocardiograph Tech: [employer] Depo Medrol 40mg/mL Med lot number: [id number] NDC number: 3053-5753-04 Exp date: 01/2017 Echocardiograph Tech: [employer] Abby Rubalcava 13:41 documented in this encounter Plan of Treatment Upcoming Encounters Date Type Department Care Team (Latest Contact Info) Description 03/27/2024 14:25 EST Hospital Encounter [facility] OR [address] [place] [id number] Vishal Castillo MD [address] [place] [phone] 03/27/2024 14:25 EST - 03/27/2024 17:55 EST Surgery [facility] OR [address] [place] [phone] Vishal Castillo MD [address] [place] [phone] Left Reverse Total Shoulder Arthroplasty [42495 (CPT??)] 04/08/2024 15:30 EST Post-op Visit [facility] & Upper Extremity Program - [facility] [address] [place] [address] Vishal Castillo MD [address] [place] [address] Scheduled Procedures Name Priority Associated Diagnoses Date/Ti me ARTHROPLASTY, SHOULDER, TOTAL Left rotator cuff tear arthropathy 03/27/2024 14:25 EST documented as of this encounter Procedures Procedure Name Priority Date/Time Associated Diagnosis Comments KNEE 1 OR 2 VIEWS Routine 05/02/2016 11: 32 EST Chronic pain of right knee KNEES 3 VIEWS Routine 05/02/2016 11:31 EST Chronic pain of right knee documented in this encounter Results * KNEE 1 OR 2 VIEWS (05/02/2016 11:32 EST) Anatomical Region Laterality Modality Other 05/02/2016 11:3 2 EST 05/02/2016 15:26 EST Narrative 05/02/2016 15:26 EST EXAM TYPE: ??KNEE 1 OR 2 VIEWS, KNEES 3 VIEWS 05/02/2016 11:32 AM HISTORY M25.561-Pain in right knee-ICD-10 G89.29-Other chronic pain-ICD-10; left knee to compare ?? COMPARISON Left knee July 14, 2011 and right knee July 14, 2011 and plain films of the left knee dated January 04, 2013. TECHNIQUE Views include: AP or PA bilateral standing PA bilateral flexion standing Right knee Standing lateral FINDINGS Right knee moderately severe medial compartment degenerative osteoarthritis with new 6 mm wide by 2 mm deep osteochondral defect over the articular surface of the medial femoral condyle. Severe degenerative OA at the patellofemoral joint, with worsening. Medial compartment degenerative OA is worse compared with July 14, 2011. Left knee arthroplasty appears grossly within normal limits. IMPRESSION Worsening right knee degenerative OA. No acute bony findings. Procedure Note Dilcia Thao MD - 05/02/2016 EXAM TYPE: KNEE 1 OR 2 VIEWS, KNEES 3 VIEWS 05/02/2016 11:32 AM HISTORY M25.561-Pain in right knee-ICD-10 G89.29-Other chronic pain-ICD-10; left knee to compare COMPARISON Left knee July 14, 2011 and right knee July 14, 2011 and plain films of the left knee dated January 04, 2013. TECHNIQUE Views include: AP or PA bilateral standing PA bilateral flexion standing Right knee Standing lateral FINDINGS Right knee moderately severe medial compartment degenerative osteoarthritis with new 6 mm wide by 2 mm deep osteochondral defect over the articular surface of the medial femoral condyle. Severe degenerative OA at the patellofemoral joint, with worsening. Medial compartment degenerative OA is worse compared with July 14, 2011. Left knee arthroplasty appears grossly within normal limits. IMPRESSION Worsening right knee degenerative OA. No acute bony findings. us Russel Otto MD IMG DIAGNOSTIC IMAGING OR DERABLES Final Result * KNEES 3 VIEWS (05/02/2016 11:31 EST) Anatomical Region Laterality Modality Other 05/02/2016 11:3 1 EST 05/02/2016 15:26 EST Narrative 05/02/2016 15:26 EST EXAM TYPE: ??KNEE 1 OR 2 VIEWS, KNEES 3 VIEWS 05/02/2016 11:32 AM HISTORY M25.561-Pain in right knee-ICD-10 G89.29-Other chronic pain-ICD-10; left knee to compare ?? COMPARISON Left knee July 14, 2011 and right knee July 14, 2011 and plain films of the left knee dated January 04, 2013. TECHNIQUE Views include: AP or PA bilateral standing PA bilateral flexion standing Right knee Standing lateral FINDINGS Right knee moderately severe medial compartment degenerative osteoarthritis with new 6 mm wide by 2 mm deep osteochondral defect over the articular surface of the medial femoral condyle. Severe degenerative OA at the patellofemoral joint, with worsening. Medial compartment degenerative OA is worse compared with July 14, 2011. Left knee arthroplasty appears grossly within normal limits. IMPRESSION Worsening right knee degenerative OA. No acute bony findings. Procedure Note Dilcia Thao MD - 05/02/2016 EXAM TYPE: KNEE 1 OR 2 VIEWS, KNEES 3 VIEWS 05/02/2016 11:32 AM HISTORY M25.561-Pain in right knee-ICD-10 G89.29-Other chronic pain-ICD-10; left knee to compare COMPARISON Left knee July 14, 2011 and right knee July 14, 2011 and plain films of the left knee dated January 04, 2013. TECHNIQUE Views include: AP or PA bilateral standing PA bilateral flexion standing Right knee Standing lateral FINDINGS Right knee moderately severe medial compartment degenerative osteoarthritis with new 6 mm wide by 2 mm deep osteochondral defect over the articular surface of the medial femoral condyle. Severe degenerative OA at the patellofemoral joint, with worsening. Medial compartment degenerative OA is worse compared with July 14, 2011. Left knee arthroplasty appears grossly within normal limits. IMPRESSION Worsening right knee degenerative OA. No acute bony findings. us Russel Otto MD IMG DIAGNOSTIC IMAGING OR DERABLES Final Result documented in this encounter Visit Diagnoses Diagnosis Chronic pain of right knee- Primary Obesity due to excess calories, unspecified obesity severity Primary osteoarthritis of right knee Primary localized osteoarthrosis, lower leg Status post total left knee replacement Anserine bursitis Pes anserinus tendinitis or bursitis Left rotator cuff tear arthropathy documented in this encounter Care Teams Interactive Art Director Relationship Specialty Start Date End Date Barbara Conway NP [address] [place] [id number] PCP - General 08/19/13 documented as of this encounter
--- OUTSIDE RECORDS SUMMARY | 2024-03-18 22:12 | XMS_ITS | Encounter Summary ---
Author Organization [facility] Address [address] [place] [address] Care Team Providers Care Computer Information Science Professor Name Role Phone Barbara Conway WOOD CUT ENGRAVER Primary Care Provider [phone] Reason for Visit * Reason Onset Date Comments Surgery Scheduling 10/03/2019 10/28/19 surger abena w/Dr. Otto Encounter Details Date Type Department Care Team (Late st Contact Info) Description 10/03/2019 Orders Only [facility] Orthopedic Surgery - [address] [place], [place] [id number] Russel Otto MD [address] [place] [phone] Primary osteoarthritis of right knee (Primary Dx) [...] Answer Entry Date Author Yes 01/04/2013 20:00 KIMT Christopher Elmore RN documented in this encounter Progress Notes * Oksana Atkins, RN - 10/03/2019 7965 EDT Orders taken and repeated from Dr. Otto for pre op order set to be ordered per his pre- op protocol documented in this encounter Plan of Treatment Upcoming Encounters Date Type Department Care Team (Latest Contact Info) Description 03/27/2024 14:25 EST Hospital Encounter [facility] OR [address] [place] [phone] Vishal Castillo MD [address] [place] [phone] 03/27/2024 14:25 EST - 03/27/2024 17:55 EST Surgery [facility] OR [address] [place] [phone] Vishal Castillo MD [address] [place] [phone] Left Reverse Total Shoulder Arthroplasty [76019 (CPT??)] 04/08/2024 15:30 EST Post-op Visit [facility] Hand & Upper Extremity Program - [address] [address] Vishal Castillo MD [address] [place] [phone] Scheduled Procedures Name Priority Associated Diagnoses Date/Ti me ARTHROPLASTY, SHOULDER, TOTAL Left rotator cuff tear arthropathy 03/27/2024 14:25 EST documented as of this encounter Results * (ABNORMAL) HEMOGLOBIN A1C (10/18/2019 11:10 EDT) Hemoglobin A1c 6.5(H) <5.7 % 10/18/2019 14:43 EDT [facility] Comment: Glycemic Status References: [...] Avg Glucose 140 mg/dL 0 14:43 EDT [facility] Comment: The eAG represents the A1c result expressed as average glucose in mg/dL. Blood VENOUS BLOOD / Unknown Venipuncture / Unknown 10/18/2019 11:10 EDT 10/18/2019 11:10 EDT Russel Otto MD CHEMISTRY & BLOOD GAS ORD ERABLES Final Result Performing Organization Address [facility] Co de Phone Number [facility] [address] [place] [address] * PROTIME (10/18/2019 11:10 EDT) I.N.R. 1.0 0.9 - 1.1 Ratio 10/18/2019 13:09 EDT [facility] Pro Time 11.5 10.3 - 13.4 secs 10/18/2019 13:09 EDT [facility] Blood VENOUS BLOOD / Unknown Venipuncture / Unknown 10/18/2019 11:10 EDT 10/18/2019 11:10 EDT Narrative [facility] - 10/18/2019 13:09 EDT Moderate Intensity Coumadin INR = 2.0-3.0 Adjustments in anticoagulant therapy dose should be based on the INR and NOT on the Protime. Russel Otto MD HEMATOLOGY & PF4 ORDERABL ES Final Result Performing Organization Address [facility] Co de Phone Number [facility] [address] [place] [address] * PRE-OP BLOOD BANK DRAW (10/18/2019 11:10 EDT) Hold BB Specimen valid up to 30 days from collection date. 10/18/2019 14:06 [facility] Blood VENOUS BLOOD / Unknown Venipuncture / Unknown 10/18/2019 11:10 EDT 10/18/2019 11:10 EDT us Russel Otto MD BLOOD BANK TESTS Final Re sult [facility] [address] [facility] [place] [address] * (ABNORMAL) COMPLETE BLOOD COUNT AND DIFFERENTIAL (10/18/2019 11:10 EDT) WBC 6.59 4.00 - 12.40 K/cmm 10/18/2019 12:47 [facility] RBC 4.18 3.86 - 5.04 M/cmm 10/18/2019 12:47 [facility] Hemoglobin 11.5(L) 11.6 - 15.2 gm/dL 10/18/2019 12:47 [facility] HCT 35.9 34.9 - 44.4 % 10/18/2019 12:47 [facility] MCV 86 81 - 98 fl 10/18/2019 12:47 [facility] MCH 27.5 26.7 - 33.3 pg 10/18/2019 12:47 [facility] MCHC 32.0(L) 32.1 - 35.9 gm/dL 10/18/2019 12:47 [facility] RDW-CV 13.3 <14.7 % 10/18/2019 12:47 [facility] RDW-SD 41.5 <50.4 fl 10/18/2019 12:47 [facility] PLT 296 141 - 377 K/cmm 10/18/2019 12:47 [facility] MPV 10.5 9.5 - 12.7 fl 10/18/2019 12:47 [facility] % Neutrophils 54.0 % 10/18/2019 12:47 [facility] % Lymphocytes 35.8 % 10/18/2019 12:47 [facility] % Monocytes 6.8 % 10/18/2019 12:47 [facility] % Eosinophils 2.6 % 10/18/2019 12:47 [facility] % Basophils 0.5 % 10/18/2019 12:47 [facility] % Immature Grans 0.3 % 10/18/19 20 12:47 [facility] Absolute Neutrophils 3.56 2.20 - 8.85 K/cmm 10/18/2019 12:47 [facility] Absolute Lymphocytes 2.36 1.09 - 3.30 K/cmm 10/18/2019 12:47 [facility] Absolute Monocytes 0.45 0.10 - 0.80 K/cmm 10/18/2019 12:47 [facility] Absolute Eosinophils 0.17 0.03 - 0.61 K/cmm 10/18/2019 12:47 [facility] ABS Basophils 0.03 0.01 - 0.11 K/cmm 10/18/2019 12:47 [facility] Absolute Immature Grans 0.02 0.00 - 0.06 K/cmm 10/18/2019 12:47 [facility] Type of Differential: Auto 10/18/2019 12:47 [facility] Blood VENOUS BLOOD / Unknown Venipuncture / Unknown 10/18/2019 11:10 EDT 10/18/2019 11:10 EDT us Russel Otto MD PACKAGES & DNA PROBE SUGAR RAINEY Final Result [facility] [address] [place] [address] * COMPREHENSIVE METABOLIC PANEL (CMP) (10/18/2019 11:10 EDT) Sodium 137 136 - 145 mEq/L 10/18/2019 13:06 [facility] Potassium 4.5 3.5 - 5.0 mEq/L 10/18/2019 13:06 [facility] Chloride 103 96 - 110 mEq/L 10/18/2019 13:06 [facility] CO2 Total 25 22 - 32 mEq/L 10/18/2019 13:06 [facility] Glucose 94 70 - 100 mg/dL 10/18/2019 13:06 [facility] BUN 21 10 - 26 mg/dL 10/18/2019 13:06 [facility] Creatinine 0.73 0.52 - 1.04 mg/dL 10/18/2019 13:06 [facility] eGFR 82 >60 mL/min/1.7 3m2 10/18/2019 13:06 [facility] Comment:eGFR calculated sergio burgess CKD-EPI equation for non- Americans. Multiply eGFR by 1.16 for patients. Total Protein 7.0 6.3 - 8.2 g/dL 10/18/2019 13:06 [facility] Albumin 4.3 3.4 - 4.9 g/dL 10/18/2019 13:06 [facility] Alkaline Phosphatase 72 38 - 126 U/L 10/18/2019 13:06 [facility] AST 20 15 - 46 U/L 10/18/2019 13:06 [facility] ALT 12 <35 U/L 10/18/2019 13:06 [facility] Bilirubin, Total <0.5 <1.4 mg/dL 10/18/19 20 13:06 [facility] Calcium 9.7 8.5 - 10.5 mg/dL 10/18/2019 13:06 [facility] Calculated Calcium 9.5 8.5 - 10.5 mg/dL 10/18/2019 13:06 [facility] Blood VENOUS BLOOD / Unknown Venipuncture / Unknown 10/18/2019 11:10 T 10/18/2019 11:10 EDT us Russel Otto MD CHEMISTRY & BLOOD GAS ORD ERABLES Final Result [facility] [address] [place] [address] * (ABNORMAL) URINE CHEMICAL (DIP) & SEDIMENT (MICRO) WITH REFLEX TO CULTURE (10/18/2019 11:10 EDT) Color UA Yellow Colorless, Yellow 10/18/2019 12:50 [facility] Clarity UA Clear Clear 10/18/2019 12:50 [facility] Glucose UA Negative Negative 10/18/2019 12:50 [facility] Bilirubin UA Negative Negative 10/18/2019 12:50 [facility] Ketones UA Negative Negative 10/18/2019 12:50 [facility] Specific [place], Urine 1.005 1.001 - 1.035 10/18/2019 12:50 [facility] Blood UA Negative Negative 10/18/2019 12:50 [facility] Urobilinogen UA Normal Normal mg/dL 020 12:50 [facility] Nitrite UA Negative Negative 10/18/2019 12:50 [facility] Leukocyte Esterase UA Trace(A) Negative 10/18/2019 12:50 [facility] Protein UA Negative Negative 10/18/2019 12:50 [facility] pH, UA 5.0 4.6 - 8.0 10/18/2019 12:50 [facility] Urine RBC Count, Auto 3 - 10(A) 0 - 2 Cells/HPF 10/18/2019 12:50 [facility] Urine WBC Count, Auto 0 - 3 0 - 3 Cells/HPF 10/18/2019 12:50 [facility] Urine Squamous Count, Auto None Seen None Seen Cells/HPF 10/18/2019 12:50 [facility] Urine Hyaline Cast Count, Auto <=10 <=10 Casts/LPF 10/18/2019 12:50 [facility] Urine Bacteria Count, Auto Few(A) None Seen Bacteria/HPF 10/18/2019 12:50 EDT [facility] Urine URINE SPECIMEN OBTAINED BY CLEAN CATCH PROCEDURE / Unknown Urine Collect / Unknown 10/18/2019 11:10 EDT 10/18/2019 11:10 EDT Narrative [facility] - 10/18/2019 12:50 EDT NOTE: Reflex to Urine Culture test is not indicated based on Urine Sediment Analysis results. Urine Sediment Analysis results are unreliable on urines that are unrefrigerated for >2 hrs or refrigerated >8 hrs. us Russel Otto MD URINALYSIS ORDERABLES Fin al Result [facility] [address] [place] [address] documented in this encounter Visit Diagnoses Diagnosis Primary osteoarthritis of right knee- Primary Primary localized osteoarthrosis, lower leg Left rotator cuff tear arthropathy documented in this encounter Care Teams Computer Information Science Professor Relationship Specialty Start Date End Date Barbara Conway NP [address] [place] [address] PCP - General 08/19/13 documented as of this encounter
--- OUTSIDE RECORDS SUMMARY | 2024-03-18 22:12 | XMS_ITS | Encounter Summary ---
Author Organization [facility] Address [address] [place] [address] Care Team Providers Care Robotics Application Engineer Name Role Phone Barbara Conway VEGETABLE SPECKER Primary Care Provider [phone] Encounter Details Date Type Department Care Team (Late st Contact Info) Description 01/10/2019 Results Only Imaging [facility] [phone] Barbara Conway, VEGETABLE SPECKER [address] [place], [place] [address] Social History Tobacco Use Types Packs/Day Years [...] Info) Description 03/27/2024 14:25 EST Hospital Encounter [facility] Main [place] OR [address] [place] [phone] Vishal Castillo MD [facility] [place] [address] 03/27/2024 14:25 EST - 03/27/2024 17:55 EST Surgery [facility] Main [place] OR [address] [place] [address] Vishal Castillo MD [address] [place] [phone] Left Reverse Total Shoulder Arthroplasty [76921 (CPT??)] 04/08/2024 15:30 EST Post-op Visit [facility] Hand & Upper Extremity Program - [address] [address] Vishal Castillo MD [address] [place] [address] Scheduled Procedures Name Priority Associated Diagnoses Date/Ti me ARTHROPLASTY, SHOULDER, TOTAL Left rotator cuff tear arthropathy 03/27/2024 14:25 EST documented as of this encounter Procedures Procedure Name Priority Date/Time Associated Diagnosis Comments MA 2D/3D BILATERAL CLOVIS ROUTINE SCREENING MAMMO 01/10/2019 10:06 EDT documented in this encounter Results * MA 2D/3D BILATERAL CLOVIS ROUTINE SCREENING MAMMO (01/10/2019 10:06 EDT) Anatomical Region Laterality Modality Other 01/10/2019 10:0 6 EDT 01/11/2019 12:07 EDT Narrative 01/11/2019 12:07 EDT Comparison has been made to previous [...] with the findings. Procedure Note Sanam Blankenship MD, MD - 01/11/2019 Comparison has been made to previous images. [...] on filedocumented in this encounter Care Teams Robotics Application Engineer Relationship Specialty Start Date End Date Barbara Conway, VEGETABLE SPECKER [address] [place] [address] PCP - General 08/19/13 documented as of this encounter
--- OUTSIDE RECORDS SUMMARY | 2024-03-18 22:12 | XMS_ITS | Encounter Summary ---
Author Organization [facility] Address [address] [place] [address] Care Team Providers Care Pomologist Name Role Phone Juantessjo annBarbara Myla RUBBER COMPOUNDER FORMULATOR Primary Care Provider [phone] Encounter Details Date Type Department Care Team (Late st Contact Info) Description 08/31/2016 10:00 EDT - 08/31/2016 13:54 EDT Hospital Encounter [facility] Endoscopy Outpatient [address] [place] [address] Arnel Oliva MD [address] [facility], [facility] [address] [place] [address] Discharge Disposition: Home or Self [...] Sign Reading Time Taken Comments Blood Pressure 106/68 08/31/2016 1245 EDT Pulse - - Temperature 35.7 ??C (96.3 ??F) 08/31/2016 1220 EDT Respiratory Rate 23 08/31/2016 1245 EDT Oxygen Saturation 97% 08/31/2016 1245 EDT Inhaled Oxygen Concentration - - Weight 88.5 kg (195 lb) 08/31/2016 1126 EDT Height 160 cm (5' 3) 08/31/2016 1126 EDT Body Mass Index 34.54 08/31/2016 1126 EDT documented in this encounter Mental Status * Because of a physical, mental, or emotional condition, do you have serious difficulty concentrating, remembering, or making decisions? (5 years old or older) Answer Entry Date Author Yes 01/04/2013 20:00 EDT Christopher Elmore RN documented in this encounter Discharge Diagnoses Diagnosis Z85.038 Personal history of other malignant neoplasm of large intestine-Z85.038[ICD-10-CM] E11.9 Type 2 diabetes mellitus without complications-E11.9[ICD-10-CM] K21.9 Gastro-esophageal reflux disease without esophagitis-K21.9[ICD-10-CM] I10 Essential (primary) hypertension-I10[ICD-10-CM] E78.00 Pure hypercholesterolemia, unspecified-E78.00[ICD-10-CM] Z79.82 penitentiary (current) use of aspirin-Z79.82[ICD-10-CM] Z79.84 termination clerk (current) use of oral hypoglycemic drugs-Z79.84[ICD-10-CM] Z79.899 Other [facility] (current) drug therapy-Z79.899[ICD-10-CM] documented in this encounter Medications at Time [...] or Self Care documented in this encounter H&P Notes * Arnel Oliva MD - 08/31/2016 1129 EDT Endoscopy Sedation for Procedure History & Physical Date: 08/31/2016 Time: 11:29 Location: [address] Planned Procedure: Colonoscopy Chief Complaint/Indications for Procedure: hx colon cancer 11 yrs ago History Previous Complication with Sedation and/or Anesthesia? No Allergies: Allergies Allergen Reactions ??? Sulfa (Sulfonamide Antibiotics) Rash ??? Zocor [Simvastatin] Other (See Comments) severe leg cramps Current Medications: Current Outpatient Prescriptions Medication Sig Dispense Refill ??? ascorbic acid (VITAMIN C) 500 mg tablet Take 1 Tab by mouth at bedtime. ??? aspirin 81 mg EC tablet Take 81 mg by mouth daily. ??? atenolol (TENORMIN) 50 mg tablet Take 50 mg by mouth daily. ??? atorvastatin (LIPITOR) 40 mg tablet Take 40 mg by mouth at bedtime. ? ? BETA-CAROTENE,A, W-C & E (ANTI-OXIDANT ORAL) Take by mouth daily. Reported on 05/02/2016 ??? bisacodyl (DULCOLAX) [address] 1 Suppository rectally daily as needed for Other (constipation). (Patient not taking: Reported on 05/02/2016) ??? Calcium-Cholecalciferol, D3, (CALCIUM 600 + D,3,) 600-200 mg-unit Cap Take by mouth daily. ??? docusate sodium (COLACE) 100 mg capsule Take 2 Caps by mouth 2 times daily. (Patient not taking: Reported on 05/02/2016) ??? lisinopril (PRINIVIL, ZESTRIL) 40 mg tablet Take 40 mg by mouth daily. ??? magnesium hydroxide (MILK OF MAGNESIA) 400 mg/5 mL suspension Take 30 mL by mouth 2 times dailyas needed for Other (constipation). (Patient not taking: Reported on 05/02/2016) ??? metformin (GLUCOPHAGE) 1,000 mg tablet Take 1,000 mg by mouth 2 times daily with meals. ??? methocarbamol (ROBAXIN) 500 mg tablet Take 1-2 Tabs by mouth every 6 hours as needed (muscle spasms). (Patient not taking: Reported on 05/02/2016) 40 Tab 1 ??? multivitamin (DAILY VITAMIN) per tablet Take 1 Tab by mouth daily. ??? nitrofurantoin (MACRODANTIN) 100 mg capsule Take 100 mg by mouth daily. Reported on 08/31/2016 ??? omeprazole (PRILOSEC) 40 mg capsule Take 40 mg by mouth daily. ??? oxyCODONE (ROXICODONE) 5 mg immediate release tablet Take 1-3 Tabs by mouth every 4 hours as needed for Pain. (Patient not taking: Reported on 05/02/2016) 60 Tab 0 ??? PEG 3350-Electrolytes (MIRALAX) 17 gram packet Take 17 g by mouth daily. (Patient not taking: Reported on 05/02/2016) ??? polyethylene glycol (GOLYTELY) 236-22.74-6.74 -5.86 gram suspension Patient is to follow one time directions sent from Dr Oliva's office. 1 Bottle 0 ??? scopolamine (TRANSDERM-SCOP) 1.[address] 1 Patch onto the skin every 72 hours. (Patient not taking: Reported on 05/02/2016) 4 Patch 1 ??? warfarin (COUMADIN) 2 mg tablet Take 1.5 Tabs by mouth at bedtime. Indications: DEEP VEIN THROMBOSIS PREVENTION (Patient not taking: Reported on 05/02/2016) 40 Tab 1 ??? warfarin (COUMADIN) 2 mg tablet Take 1 Tab by mouth at bedtime. Indications: DEEP VEIN THROMBOSIS PREVENTION (Patient not taking: Reported on 05/02/2016) 40 Tab 1 Current Facility-Administered Medications Medication Route Frequency ??? heparin (PF) 100 unit/mL lock flush 500 Units intercatheter PRN ??? lactated ringers (LR) infusion intravenous CONTINUOUS ??? meperidine (PF) (DEMEROL) 100 mg/mL injection 25-200 mg intravenous Once PRN ??? midazolam (PF) (VERSED) 1 mg/mL injection 1-10 mg intravenous Once PRN Past Medical History: Past Medical History: Diagnosis Date ??? Chon mcwilliamsitis Right anserine tendinitis/bursitis ??? Bilateral bunions ??? Colon cancer cancerous polyp removed Apr 2005 ??? Colon polyp ??? Complication of anesthesia nausea ??? Diabetes mellitus ??? GERD (gastroesophageal reflux disease) ??? High cholesterol ??? Hypertension ??? Knee joint replacement status left ??? Obesity ??? Rectal cancer stage 1 colo rectal cancer Social History: Past Surgical History: Procedure Laterality Date ??? JOINT REPLACEMENT left knee ??? TONSILLECTOMY ??? TUBAL LIGATION Social History Substance Use Topics ??? Smoking status: Never Smoker ??? Smokeless tobacco: Never Used ??? Alcohol use No Family History: Family History Problem Relation Age [...] pertinent: Physical Exam Vital Signs: BP (!) 154/74 Temp 35.8 ??C (96.4 ??F) (Tympanic) Resp 18 Ht 160 cm (63) Wt 88.5 kg (195 lb) SpO2 100% BMI 34.54 kg/m2 Heart Examination: Cardiac Regularity: Regular Respiratory Examination: Respiratory Pattern: Regular Breath Sounds Right: Clear Breath Sounds Left: Clear Abdominal Examination: Soft, non-tender, bowel sounds normal, no masses, no organomegaly Additional physical exam related to the proposed procedure, patient activity, disease state and treatment as pertinent: Assessment Previous complications with sedation or anesthesia?: No Airway Concerns: None Anesthesia Classification: ASA 2 Plan: Proceed with sedation for procedure Fasting Time: Time of last liquid intake: 0700 Date of Last Liquid Intake: 08/31/16 Time of last solid intake: 1999 Date of last solid intake: 08/29/16 Patient Appropriate Candidate for Planned Sedation?: Yes Arnel Oliva MD 08/31/2016 11:29 documented in this encounter Plan of Treatment Upcoming Encounters Date Type Department Care Team (Latest Contact Info) Description 03/27/2024 14:25 EST Hospital Encounter [facility] Main [place] OR [address] [place], [place] [phone] Vishal Castillo MD [address] [place] [phone] 03/27/2024 14:25 EST - 03/27/2024 17:55 EST Surgery [facility] OR [address] [place] [phone] Vishal Castillo MD [address] [place] [phone] Left Reverse Total Shoulder Arthroplasty [40087 (CPT??)] 04/08/2024 15:30 EST Post-op Visit [facility] Hand & Upper Extremity Program - [address] [address] Vishal Castillo MD [address] [place] [phone] Scheduled Procedures Name Priority Associated Diagnoses Date/Ti me ARTHROPLASTY, SHOULDER, TOTAL Left rotator cuff tear arthropathy 03/27/2024 14:25 EST documented as of this encounter Procedures Procedure Name Priority Date/Time Associated Diagnosis Comments ENDOSCOPY REPORTS - SCANNED 09/01/2016 0:36 EDT GLUCOSE, GLUCOMETER Routine 08/31/2016 1 1:39 EDT documented in this encounter Results * ENDOSCOPY REPORTS - SCANNED (09/01/2016 0:36 EDT) 09/01/2016 0:36 EDT us Scan 2 Dimensional Inspector PROCEDURE/MINOR SURGICAL OR DERABLES Final Result * (ABNORMAL) GLUCOSE, GLUCOMETER (08/31/2016 11:39 EDT) Glucose, Fingerstick 122(H) 70 - 100 mg/dl 08/31/2016 11:44 EDT [facility] Acquisitions Editor ID [id number] 08/31/2016 11:44 EDT [facility] Comment:[facility] BLOOD SPECIMEN / Unknown 08/31/2016 11:39 EDT 08/31/2016 11:44 EDT us Provider Unknown MD CHEMISTRY & BLOOD GAS ORDERA BLES Final Result [facility] [address] [place] [address] documented in this encounter Visit Diagnoses Not on filedocumented in this encounter Administered Medications Inactive Administered Medications - up to 3 most recent administrations Medication Order MAR Action Action Date Dose Rate Site lactated ringers (LR) infusion 30 mL/hr, intravenous, CONTINUOUS, Starting on Mon08/31/16 at 1145, Until Mon08/31/16 at 1600, Routine, Preprocedure New Bag 08/31/2016 12:00 EDT 30 mL/hr 30 mL/hr meperidine (PF) (DEMEROL) 100 mg/mL injection 25-200 mg 25-200 mg, intravenous, ONCE PRN, 1 dose, Starting on Mon08/31/16 at 1119, Until Mon08/31/16 at 1213, Other, sedation, Routine, Intraprocedure Given 08/31/2016 12:13 EDT 50 mg midazolam (PF) (VERSED) 1 mg/mL injection 1-10 mg 1-10 mg, intravenous, ONCE PRN, 1 dose, Starting on Mon08/31/16 at 1119, Until Mon08/31/16 at 1213, Sedation, Routine, Intraprocedure Given 08/31/2016 12:13 EDT 3 mg documented in this encounter Orders Medications Ordered That Asif ht Not Have Been Administered Count Last Ordered Date First Ordered Date heparin (PF) 100 unit/mL loc k flush 500 Units 1 08/31/2016 Transfer Count Last Ordered Date First Orde red Date NOTIFY PPS OF DISCHARGE COMPLETE 1 09/01/19 17 Discharge Count Last Ordered Date First Orde red Date DISCHARGE PATIENT 1 08/31/2016 documented in this encounter Care Teams Pomologist Relationship Specialty Start Date End Date Barbara Conway, RUBBER COMPOUNDER FORMULATOR [address] [place] [address] PCP - General 08/19/13 documented as of this encounter
--- OUTSIDE RECORDS SUMMARY | 2024-03-18 22:12 | XMS_ITS | Encounter Summary ---
Author Organization [facility] Address [address] [place] [address] Care Team Providers Care Business Area Manager Name Role Phone Barbara Conway FRESH FOODS CAKE DECORATOR Primary Care Provider [phone] Encounter Details Date Type Department Care Team (Latest Contact Info) Description 12/18/2017 14:19 EDT - 12/18/2017 23:59 EDT Hospital Encounter [address] [address] Barbara Conway, FRESH FOODS CAKE DECORATOR [address] [place] [phone] Discharge Disposition: Auto Discharge Social History Tobacco [...] Description 03/27/2024 14:25 EST Hospital Encounter [facility] OR [address] [place] [phone] Vishal Castillo MD [address] [place] [phone] 03/27/2024 14:25 EST - 03/27/2024 17:55 EST Surgery [facility] OR [address] [place] [address] Vishal Castillo MD [address] [place] [phone] Left Reverse Total Shoulder Arthroplasty [29735 (CPT??)] 04/08/2024 15:30 EST Post-op Visit [facility] Hand & Upper Extremity Program - [address] [place] [address] Vishal Castillo MD [address] [place] [phone] Scheduled Procedures Name Priority Associated Diagnoses Date/Ti me ARTHROPLASTY, SHOULDER, TOTAL Left rotator cuff tear arthropathy 03/27/2024 14:25 EST documented as of this encounter Visit Diagnoses Not on filedocumented in this encounter Care Teams Business Area Manager Relationship Specialty Start Date End Date Barbara Conway NP [address] [place] [address] PCP - General 08/19/13 documented as of this encounter
--- OUTSIDE RECORDS SUMMARY | 2024-03-18 22:12 | XMS_ITS | Encounter Summary ---
Author Organization [facility] Address [address] [place] [address] Care Team Providers Care Provisioning Specialist Name Role Phone Barbara Conway PLUSH CUTTER Primary Care Provider [phone] Encounter Details Date Type Department Care Team (Latest Contact Info) Description 08/29/2019 Travel Social History Tobacco Use Types Packs/Day [...] have Coronavirus / COVID-19? No / Unsure 08/29/2019 12:44 EDT documented as of this encounter Mental [...] Info) Description 03/27/2024 14:25 EST Hospital Encounter [facility] Main [place] OR [address] [place] [address] Vishal Castillo MD [address] [place] [phone] 03/27/2024 14:25 EST - 03/27/2024 17:55 EST Surgery [facility] OR [address] [place], [place] [address] Vishal Castillo MD [address] [place] [phone] Left Reverse Total Shoulder Arthroplasty [93845 (CPT??)] 04/08/2024 15:30 EST Post-op Visit [facility] Hand & Upper Extremity Program - [address] [place] [address] Vishal Castillo MD [address] [place] [phone] Scheduled Procedures Name Priority Associated Diagnoses Date/Ti me ARTHROPLASTY, SHOULDER, TOTAL Left rotator cuff tear arthropathy 03/27/2024 14:25 EST documented as of this encounter Visit Diagnoses Not on filedocumented in this encounter Care Teams Provisioning Specialist Relationship Specialty Start Date End Date Barbara Conway, PLUSH CUTTER [address] [place] [address] PCP - General 08/19/13 documented as of this encounter
--- OUTSIDE RECORDS SUMMARY | 2024-03-18 22:12 | XMS_ITS | Encounter Summary ---
Author Organization [facility] Address [address] [place] [address] Care Team Providers Care Business Services Vice President Name Role Phone ZoraidaBarbara Myla NEON TUBE BENDER Primary Care Provider [phone] Reason for Visit * Reason Onset Date Comments Colonoscopy 08/24/2016 Patient called a nd confirmed date and time. If that is not what your call was about, call her back. Encounter Details Date Type Department Care Team (Late st Contact Info) Description 08/24/2016 Telephone [facility] General Surgery - [facility] [address] [place] [address] Arnel Oliva MD [address] [facility], Level [address] [place] [address] Colonoscopy (Patient called and confirmed date and time. If that is not what your call was about, call her back.) Social History Tobacco Use Types Packs/Day Years [...] Info) Description 03/27/2024 14:25 EST Hospital Encounter [facility] OR [address] [place] [phone] Vishal Castillo MD [address] [place] [phone] 03/27/2024 14:25 EST - 03/27/2024 17:55 EST Surgery [facility] OR [address] [place] [phone] Vishal Castillo MD [address] [place] [phone] Left Reverse Total Shoulder Arthroplasty [06243 (CPT??)] 04/08/2024 15:30 EST Post-op Visit [facility] Hand & Upper Extremity Program - [address] [address] Vishal Castillo MD [address] [place] [phone] Scheduled Procedures Name Priority Associated Diagnoses Date/Ti me ARTHROPLASTY, SHOULDER, TOTAL Left rotator cuff tear arthropathy 03/27/2024 14:25 EST documented as of this encounter Visit Diagnoses Not on filedocumented in this encounter Additional Health Concerns Infection Onset Date Last Indicated Resolved Time R/O COVID-19 10/24/2019 10/24/2019 10/28/2019 10:3 2 EDT documented as of this encounter Care Teams Business Services Vice President Relationship Specialty Start Date End Date Barbara Conway, [place] [address] [place] [address] PCP - General 08/19/13 documented as of this encounter
--- OUTSIDE RECORDS SUMMARY | 2024-03-18 22:12 | XMS_ITS | Encounter Summary ---
Author Organization [facility] Address [address] [place] [address] Care Team Providers Care Supervisor Fish Bait Processing Name Role Phone Barbara Conway Myla DRUG SAFETY SCIENTIST Primary Care Provider [phone] Encounter Details Date Type Department Care Team (Late st Contact Info) Description 07/14/[address] [facility] General Surgery - [facility] [address] [place] [address] Brittany Barth, АЛЕКСАНДР [address] [place] [address] Social History Tobacco Use Types Packs/Day Years [...] Christopher Oliveros RN documented in this encounter Ordered Prescriptions Prescription Sig Dispense Quantity Refills Last Filled Start Date End Date polyethylene glycol (GOLYTELY) 236-22.74-6.74 -5.86 gram suspension Patient is to follow one time directions sent from Dr Oliva's office. 1 Bottle 07/14/2016 7 documented in this encounter Plan of Treatment Upcoming Encounters Date Type Department Care Team (Latest Contact Info) Description 03/27/2024 14:25 EST Hospital Encounter [facility] OR [address] [place] [phone] Vishal Castillo MD [address] [place] [phone] 03/27/2024 14:25 EST - 03/27/2024 17:55 EST Surgery [facility] OR [address] [place], [place] [phone] Vishal Castillo MD [address] [place] [phone] Left Reverse Total Shoulder Arthroplasty [80509 (CPT??)] 04/08/2024 15:30 EST Post-op Visit [facility] Hand & Upper Extremity Program - [address] [place] [address] Vishal Castillo MD [address] [place] [phone] Scheduled Procedures Name Priority Associated Diagnoses Date/Ti me ARTHROPLASTY, SHOULDER, TOTAL Left rotator cuff tear arthropathy 03/27/2024 14:25 EST documented as of this encounter Visit Diagnoses Not on filedocumented in this encounter Discontinued Medications Medication Sig Discontinue Reason Start Date End Da te polyethylene glycol (GOLYTELY) 236-22.74-6.74 gram suspension Patient to follow one time directions given by Dr. Oliva's office Therapy completed 05/21/2013 07/14/2016 documented as of this encounter Care Teams Supervisor Fish Bait Processing Relationship Specialty Start Date End Date Barbara Conway, DRUG SAFETY SCIENTIST [address] [place], [place] [phone] PCP - General 08/19/13 documented as of this encounter
--- OUTSIDE RECORDS SUMMARY | 2024-03-18 22:12 | XMS_ITS | Encounter Summary ---
Author Organization [facility] Address [address] [place] [address] Care Team Providers Care Manager Cardiology Name Role Phone Barbara Conway CARDIOLOGY TECH Primary Care Provider [phone] Encounter Details Date Type Department Care Team (Latest Contact Info) Description 09/02/2019 Travel Social History Tobacco Use Types Packs/Day [...] Info) Description 03/27/2024 14:25 EST Hospital Encounter [facility] Main [place] OR [address] [place] [address] Vishal Castillo MD [address] [place] [phone] 03/27/2024 14:25 EST - 03/27/2024 17:55 EST Surgery [facility] OR [address] [place], [place] [address] Vishal Castillo MD [address] [place] [phone] Left Reverse Total Shoulder Arthroplasty [49561 (CPT??)] 04/08/2024 15:30 EST Post-op Visit [facility] Hand & Upper Extremity Program - [address] [place] [address] Vishal Castillo MD [address] [place] [phone] Scheduled Procedures Name Priority Associated Diagnoses Date/Ti me ARTHROPLASTY, SHOULDER, TOTAL Left rotator cuff tear arthropathy 03/27/2024 14:25 EST documented as of this encounter Visit Diagnoses Not on filedocumented in this encounter Care Teams Manager Cardiology Relationship Specialty Start Date End Date Barbara Conway, CARDIOLOGY TECH [address] [place] [address] PCP - General 08/19/13 documented as of this encounter
--- OUTSIDE RECORDS SUMMARY | 2024-03-18 22:12 | XMS_ITS | Encounter Summary ---
Author Organization [facility] Address [address] [place] [address] Care Team Providers Care Chucking Lathe Operator Name Role Phone ZoraidaBarbara Myla GAS BRAZER Primary Care Provider [phone] Encounter Details Date Type Department Care Team (Latest Contact Info) Description 05/28/2019 8:50 EST - 05/29/2019 23:59 EST Hospital Encounter [facility] [address] [place], [place] [phone] Discharge Disposition: Home or Self Care Social [...] Christopher Oliveros RN documented in this encounter Medications at [...] Hospital Encounter [facility] Main [place] OR [address] [place] [address] Vishal Castillo MD [address] [place] [phone] 03/27/2024 14:25 EST - 03/27/2024 17:55 EST Surgery [facility] Main [place] [address] [place], [place] [phone] Vishal Castillo MD [address] [place] [address] Left Reverse Total Shoulder Arthroplasty [19474 (CPT??)] 04/08/2024 15:30 EST Post-op Visit [facility] Hand & Upper Extremity Program - [address] [address] Vishal Castillo MD [address] [place] [phone] Scheduled Procedures Name Priority Associated Diagnoses [...] knee radiographs 05/02/2016. Procedure Note Arturo Falk, - 05/28/2019 EXAM/TECHNIQUE: XR KNEE RIGHT 4 [...] knee radiographs 05/02/2016. Procedure Note Arturo Falk, - 05/28/2019 EXAM/TECHNIQUE: XR KNEE RIGHT 4 [...] on filedocumented in this encounter Care Teams Chucking Lathe Operator Relationship Specialty Start Date End Date Barbara Conway, GAS BRAZER [address] [place] [address] PCP - General 08/19/13 documented as of this encounter
--- OUTSIDE RECORDS SUMMARY | 2024-03-18 22:12 | XMS_ITS | Encounter Summary ---
Author Organization [facility] Address [address] [place] [address] Care Team Providers Care National Account Manager Name Role Phone Barbara Conway HAMPER MAKER MACHINE Primary Care Provider [phone] Encounter Details Date Type Department Care Team (Latest Contact Info) Description 09/28/2015 7:52 EDT - 09/28/2015 23:59 EDT Hospital Encounter [address] [address] Barbara Conway, HAMPER MAKER MACHINE [address] [place] [phone] Discharge Disposition: Home or Self Care Social [...] 1 Capsule by mouth every morning. 04/30/2008 BETA-CAROTENE,A, W-C & E (ANTI-OXIDANT ORAL) Take [...] daily. 01/06/2013 0 polyethylene glycol (GOLYTELY) 236-22.74-6.74 gram suspension Patient to follow one time directions given by Dr. Oliva's office 1 Bottle 0 05/21/2013 7 scopolamine (TRANSDERM-SCOP) 1.[address] 1 [...] Code Departure Means Destination Home or Self Mcfp documented in this encounter Plan of Treatment Upcoming Encounters Date Type Department Care Team (Latest Contact Info) Description 03/27/2024 14:25 EST [facility] [address] [place] [id number] Vishal Castillo MD [address] [place] [phone] 03/27/2024 14:25 EST - 03/27/2024 17:55 EST [facility] [address] [place], [place] [address] Vishal Castillo MD [address] [place] [phone] Left Reverse Total Shoulder Arthroplasty [36548 (CPT??)] 04/08/2024 15:30 EST Post-op Visit [facility] Hand & Upper Extremity Program - [address] [address] Vishal Castillo MD [address] [place] [phone] Scheduled Procedures Name Priority Associated Diagnoses Date/Ti me ARTHROPLASTY, SHOULDER, TOTAL Left rotator cuff tear arthropathy 03/27/2024 14:25 EST documented as of this encounter Visit Diagnoses Not on filedocumented in this encounter Care Teams National Account Manager Relationship Specialty Start Date End Date Barbara Conway, HAMPER MAKER MACHINE [address] [place] [address] PCP - General 08/19/13 documented as of this encounter
--- OUTSIDE RECORDS SUMMARY | 2024-03-18 22:12 | XMS_ITS | Encounter Summary ---
Author Organization [facility] Address [address] [place] [address] Care Team Providers Care Veneer Redrier Name Role Phone Barbara Conway Myla CLINICAL IMMUNOLOGIST Primary Care Provider Encounter Details Date Type Department Care Team (Late st Contact Info) Description 04/25/2016 Abstract [facility] Orthopedic Surgery - [facility] [address] [place] [address] Russel Otto MD [address] [place] [address] Social History Tobacco Use Types [...] Info) Description 03/27/2024 14:25 EST Hospital Encounter [facility] Main [place] OR [address] [place] [address] [phone] Vishal Castillo MD [address] [place] [phone] 03/27/2024 14:25 EST - 03/27/2024 17:55 EST Surgery [facility] OR [address] [place], [place] [phone] Vishal Castillo MD [address] [place] [phone] Left Reverse Total Shoulder Arthroplasty [49110 (CPT??)] 04/08/2024 15:30 EST Post-op Visit [facility] Hand & Upper Extremity Program - [address] [address] Vishal Castillo MD [address] [place] [phone] Scheduled Procedures Name Priority Associated Diagnoses Date/Ti me ARTHROPLASTY, SHOULDER, TOTAL Left rotator cuff tear arthropathy 03/27/2024 14:25 EST documented as of this encounter Visit Diagnoses Not on filedocumented in this encounter Care Teams Veneer Redrier Relationship Specialty Start Date End Date Barbara Conway, [place] [address] [place] [address] PCP - General 08/19/13 documented as of this encounter
--- OUTSIDE RECORDS SUMMARY | 2024-03-18 22:12 | XMS_ITS | Encounter Summary ---
Author Organization [facility] Address [address] [place] [address] Care Team Providers Care Tool Dispatcher Name Role Phone Barbara Conway COUNTY COURT JUDGE Primary Care Provider Encounter Details Date Type Department Care Team (Late st Contact Info) Description 10/09/2015 Abstract [facility] Total [facility] Program - [facility] [place] [address] Miguel Iraheta MD [address] [place] [address] Social History Tobacco Use Types [...] Hospital Encounter [facility] Main [place] OR [address] [place] [phone] Vishal Castillo MD [address] [place] [phone] 03/27/2024 14:25 EST - 03/27/2024 17:[address] [facility] OR [address] [place], [place] [phone] Vishal Castillo MD [address] [place] [phone] Left Reverse Total Shoulder Arthroplasty [31135 (CPT??)] 04/08/2024 15:30 EST Post-op Visit [facility] Hand & Upper Extremity Program - [address] [address] Vishal Castillo MD [address] [place] [phone] Scheduled Procedures Name Priority Associated Diagnoses Date/Ti me ARTHROPLASTY, SHOULDER, TOTAL Left rotator cuff tear arthropathy 03/27/2024 14:25 EST documented as of this encounter Visit Diagnoses Not on filedocumented in this encounter Historical Medications * This list may reflect changes made after this encounter. aspirin 81 mg EC tablet Take 81 mg by mouth daily. 10/24/2019 added in this encounter Care Teams Tool Dispatcher Relationship Specialty Start Date End Date Barbara Conway NP [address] [place] [address] PCP - General 08/19/13 documented as of this encounter
--- OUTSIDE RECORDS SUMMARY | 2024-03-18 22:12 | XMS_ITS | Encounter Summary ---
Author Organization [facility] Address [address] [place] [address] Care Team Providers Care Peoplesoft Analyst Name Role Phone Barbara Conway MANAGER SALES SUPPORT Primary Care Provider [phone] Reason for Referral * Radiology Services (Routine) - Closed Specialty Diagnoses / Procedures Referred By Maryuri sarmiento Referred To Contact Radiology Diagnoses Arthritis of right knee Chronic pain of right knee Primary osteoarthritis of right knee Procedures MR KNEE WO CONTRAST RIGHT Russel Otto MD Phone: tel: fax: Referral ID Status Reason Start Date Expiration Date Visits Re quested Visits Authorized [id number] Closed 05/30/2019 1 1 Reason for Visit * Radiology Services (Routine) - Closed Specialty Diagnoses / Procedures Referred By Maryuri sarmiento Referred To Contact Radiology Diagnoses Arthritis of right knee Chronic pain of right knee Primary osteoarthritis of right knee Procedures MR KNEE WO CONTRAST RIGHT Russel Otto MD Phone: tel: fax: Referral ID Status Reason Start Date Expiration Date Visits Re quested Visits Authorized [id number] Closed 05/30/2019 1 1 Encounter Details Date Type Department Care Team (Latest Contact Info) Description 09/02/2019 13:58 EDT - 09/02/2019 14:00 EDT [address] Encounter [address] MRI [address] [facility] [place], [place] [phone] Arthritis of right knee; Chronic pain of right knee; Primary osteoarthritis of right knee Discharge Disposition: Home or Self Care Social [...] Info) Description 03/27/2024 14:25 EST Hospital Encounter [facility] OR [address] [place] [phone] Vishal Castillo MD [address] [place] [phone] 03/27/2024 14:25 EST - 03/27/2024 17:55 EST Surgery [facility] OR [address] [place] [phone] Vishal Castillo MD [address] [place] [phone] Left Reverse Total Shoulder Arthroplasty [61165 (CPT??)] 04/08/2024 15:30 EST Post-op Visit [facility] Hand & Upper Extremity Program - [address] [address] Vishal Castillo MD [address] [place] [phone] Scheduled Procedures Name Priority Associated Diagnoses Date/Ti me ARTHROPLASTY, SHOULDER, TOTAL Left rotator cuff tear arthropathy 03/27/2024 14:25 EST documented as of this encounter Procedures Procedure Name Priority Date/Time Associated Diagnosis Comments MR KNEE WO CONTRAST RIGHT Routine 09/02/2019 15:25 EDT Arthritis of right knee Chronic pain [...] LCL complex appears to be grossly intact. Russel Otto MD IMG MRI ORDERABLES Final Result documented in this encounter Visit Diagnoses Diagnosis Arthritis of right knee Unspecified arthropathy, lower leg Chronic pain of right knee Primary osteoarthritis of right knee Primary localized osteoarthrosis, lower leg Left rotator cuff tear arthropathy documented in this encounter Care Teams Peoplesoft Analyst Relationship Specialty Start Date End Date Barbara Conway, MANAGER SALES SUPPORT [address] [place] [address] PCP - General 08/19/13 documented as of this encounter
--- OUTSIDE RECORDS SUMMARY | 2024-03-18 22:12 | XMS_ITS | Encounter Summary ---
Author Organization [facility] Address [address] [place] [address] Care Team Providers Care Community Development Officer Name Role Phone Barbara Conway Myla ADAPTIVE PHYSICAL EDUCATION SPECIALIST Primary Care Provider [phone] Reason for Visit * Reason Onset Date Comments Hip Pain 03/21/2018 possible referra l request Encounter Details Date Type Department Care Team (Late st Contact Info) Description 03/21/2018 Telephone [facility] Orthopedic Surgery - [facility] [address] [place] [address] Ashish Dejesus MD [address] [place] [phone] Hip Pain (possible referral request) Social History Tobacco Use Types Packs/Day Years [...] encounter Miscellaneous Notes * Telephone Encounter - Doretha Brar - 03/21/2018 1559 EST Aretha phoned to inquire regarding making an appt for R hip pain. States she has been having hip pain X 6wks, had a jennifer. Injection 2wks ago at [facility] and that it hasn't worked. I explained that this would be considered a form of 2nd opinion and that Dr Dejesus is booking a few months out but that we could possible schedule her w/ a PA. But that we would either way need to get her notes and films forwarded so that they could review them. Pt did not want to wait said that she would probably just go back to [facility]. I suggested she at least call them and let them know the injection did not seem to help and to think about what she would like to do and if she decides to come here she has the number to have notes forwarded and she can / will call us back and ask us to go ahead for scheduling/ self referral. Aretha thought this made sense and stated that she would think about what she wanted to do. documented in this encounter Plan of Treatment Upcoming Encounters Date Type Department Care Team (Latest Contact Info) Description 03/27/2024 14:25 EST Hospital Encounter [facility] OR [address] [place] [address] [phone] Vishal Castillo MD [address] [place] [phone] 03/27/2024 14:25 EST - 03/27/2024 17:55 EST Surgery [facility] OR [address] [place] [phone] Vishal Castillo MD [address] [place] [phone] Left Reverse Total Shoulder Arthroplasty [[id number] (CPT??)] 04/08/2024 15:30 EST Post-op Visit [facility] Hand & Upper Extremity Program - [facility] [place] [address] Vishal Castillo MD [address] [place] [phone] Scheduled Procedures Name Priority Associated Diagnoses Date/Ti me ARTHROPLASTY, SHOULDER, TOTAL Left rotator cuff tear arthropathy 03/27/2024 14:25 EST documented as of this encounter Visit Diagnoses Not on filedocumented in this encounter Care Teams Community Development Officer Relationship Specialty Start Date End Date Barbara Conway, ADAPTIVE PHYSICAL EDUCATION SPECIALIST [address] [place] [address] PCP - General 08/19/13 documented as of this encounter
--- OUTSIDE RECORDS SUMMARY | 2024-03-18 22:12 | XMS_ITS | Encounter Summary ---
Author Organization [facility] Address [address] [place] [address] Care Team Providers Care Marriage Therapist Name Role Phone Barbara Conway BANK ADVISOR Primary Care Provider [phone] Reason for Visit * Reason Onset Date Comments Colonoscopy 05/09/2016 due after july 24. Encounter Details Date Type Department Care Team (Late st Contact Info) Description 05/09/2016 Telephone [facility] General Surgery - [facility] [address] [place], [place] [phone] Arnel Oliva MD [address] [facility], [address] [place] [address] Colonoscopy (due after july 24. ) Social History Tobacco Use Types Packs/Day Years [...] Encounter [facility] OR [address] [place], [place] [phone] Vishal Castillo MD [address] [place] [phone] 03/27/2024 14:25 EST - 03/27/2024 17:55 EST Surgery [facility] OR [address] [place], [place] [phone] Vishal Castillo MD [address] [place] [phone] Left Reverse Total Shoulder Arthroplasty [30152 (CPT??)] 04/08/2024 15:30 EST Post-op Visit [facility] Hand & Upper Extremity Program - [address] [place] [address] Vishal Castillo MD [address] [place] [phone] Scheduled Procedures Name Priority Associated Diagnoses Date/Ti me ARTHROPLASTY, SHOULDER, TOTAL Left rotator cuff tear arthropathy 03/27/2024 14:25 EST documented as of this encounter Visit Diagnoses Not on filedocumented in this encounter Additional Health Concerns Infection Onset Date Last Indicated Resolved Time R/O COVID-19 10/24/2019 10/24/2019 10/28/2019 10:3 2 EDT documented as of this encounter Care Teams Marriage Therapist Relationship Specialty Start Date End Date Barbara Conway NP [address] [facility] [place], [place] [address] PCP - General 08/19/13 documented as of this encounter
--- OUTSIDE RECORDS SUMMARY | 2024-03-18 22:12 | XMS_ITS | Encounter Summary ---
Author Organization [facility] Address [address] [place] [address] Care Team Providers Care Ammonia Nitrate Operator Name Role Phone Barbara Conway DISH UP PERSON Primary Care Provider [phone] Encounter Details Date Type Department Care Team (Late st Contact Info) Description 09/28/2015 Results Only Imaging [facility] [phone] Barbara Conway, DISH UP PERSON [address] [place], [place] [address] Social History Tobacco Use Types Packs/Day Years [...] Info) Description 03/27/2024 14:25 EST Hospital Encounter [facility] Main [place] OR [address] [place], [place] [address] Vishal Castillo MD [address] [place] [address] [place] [phone] 03/27/2024 14:25 EST - 03/27/2024 17:55 EST Surgery [facility] Main [place] OR [address] [place], [place] [phone] Vishal Castillo MD [address] [place] [phone] Left Reverse Total Shoulder Arthroplasty [85251 (CPT??)] 04/08/2024 15:30 EST Post-op Visit [facility] Hand & Upper Extremity Program - [address] [address] Vishal Castillo MD [address] [place] [phone] Scheduled Procedures Name Priority Associated Diagnoses Date/Ti me ARTHROPLASTY, SHOULDER, TOTAL Left rotator cuff tear arthropathy 03/27/2024 14:25 EST documented as of this encounter Procedures Procedure Name Priority Date/Time Associated Diagnosis Comments MA 2D/3D BILATERAL CLOVIS ROUTINE SCREENING MAMMO 09/28/2015 12:51 EDT documented in this encounter Results * MA 2D/3D BILATERAL CLOVIS ROUTINE SCREENING MAMMO (09/28/2015 12:51 EDT) Anatomical Region Laterality Modality Other 09/28/2015 12:5 1 EDT 09/28/2015 16:13 EDT Narrative 09/28/2015 16:13 EDT Comparison has been made to previous images. Bilateral Breast Findings: (Routine 3D tomosynthesis with synthesized 2D views with CAD) The breasts are almost entirely fat (less than 25% fibroglandular). No significant masses, calcifications or other abnormalities are seen. IMPRESSION: BILATERAL BREASTS: Negative, no evidence of malignancy. Normal interval follow-up is recommended in 12 months. OVERALL ASSESSMENT - CATEGORY 1 - NEGATIVE END OF IMPRESSION These results will be communicated to your patient via a lay letter from Radiology. If any additional imaging is needed we will contact your patient directly. Procedure Note Duglas Gee MD - 09/28/2015 Comparison has been made to previous images. Bilateral Breast Findings: (Routine 3D tomosynthesis with synthesized 2D views with CAD) The breasts are almost entirely fat (less than 25% fibroglandular). No significant masses, calcifications or other abnormalities are seen. IMPRESSION: BILATERAL BREASTS: Negative, no evidence of malignancy. Normal interval follow-up is recommended in 12 months. OVERALL ASSESSMENT - CATEGORY 1 - NEGATIVE END OF IMPRESSION These results will be communicated to your patient via a lay letter from Radiology. If any additional imaging is needed we will contact your patient directly. Barbara Conway NP IMG MAMMOGRAPHY ORDERABLES Fi nal Result documented in this encounter Visit Diagnoses Not on filedocumented in this encounter Care Teams Ammonia Nitrate Operator Relationship Specialty Start Date End Date Barbara Conway, [place] [address] [place] [address] PCP - General 08/19/13 documented as of this encounter
--- OUTSIDE RECORDS SUMMARY | 2024-03-18 22:12 | XMS_ITS | Encounter Summary ---
Author Organization [facility] Address [address] [place] [address] Care Team Providers Care Soakers Supervisor Name Role Phone JuanBarbara whitney Myla BANDMILL OPERATOR Primary Care Provider Reason for Visit * Reason Comments Knee Pain right knee Encounter Details Date Type Department Care Team (Latest Contact Info) Description 01/22/2019 10:00 EDT Office Visit [facility] Orthopedic Surgery - [facility] [address] [place] [address] Russel Otto MD [address] [place] [phone] Primary osteoarthritis of right knee (Primary Dx) Discharge Disposition: Auto Discharge Social History Tobacco [...] - - Weight 88.5 kg (195 lb) 01/22/2019 1025 EDT Height 160 cm (5' 2.99) 01/22/2019 1025 EDT Body Mass Index 34.55 01/22/2019 1025 EDT documented in this encounter Mental Status * Because of a physical, mental, or emotional condition, do you have serious difficulty concentrating, remembering, or making decisions? (5 years old or older) Answer Entry Date Author Yes 01/04/2013 20:00 EDT Christopher Elmore RN documented in this encounter Discharge Diagnoses Diagnosis M17.11 Unilateral primary osteoarthritis, right knee-M17.11[ICD-10-CM] documented in this encounter Patient Instructions * Patient Instructions* Khadar, Abby - 01/22/2019 10:00 EDT Post-Injection Care The information below is provided to help you manage your post-injection experience. Please feel free to call if you have any concerns after receiving your injection. Medications used in your injection today may include: ??? Marcaine (a long-acting anesthetic) ??? Lidocaine (a short-acting anesthetic) ??? Steroid (synthetic cortisone, e.g. Depo-Medrol) ??? Euflexxa or Gel-One (viscoelastic supplementation) Normal findings after the injection include: ??? Soreness, slight throbbing or swelling at the injection site for up to two days. ??? Two to three days for the pain to be relieved. ??? Increased joint pain or discomfort for the first 24 to 48 hours before the steroid takes effect. Recommendations after injection: ??? Rest the injected extremity for the next TWO DAYS (no exercise or strenuous activity). ??? Apply ice to the injection area for 10 to 15 minutes every hour or two for the first day. ??? Take Tylenol (acetaminophen) or Advil (ibuprofen) as directed by laundry worker, if not contraindicated. ??? No swimming for 24 hours. No soaking or hot tub for 48 hours. Please contact our office if the following occurs: ??? Severe itching or rash anywhere on your body. If this is accompanied by shortness of breath, please go to your nearest Emergency Room. ??? Extreme redness, swelling or warmth at the injection site. These symptoms could be signs of an early infection, which is rare. The amount and duration of pain relief from an injection varies widely between patients. Some report pain relief for months, while other patients report only a few weeks of relief. DIABETIC WARNING: If you are diabetic, this injection may elevate your blood sugars for the next one to five days. Please monitor your blood sugars closely. If they fail to return to your acceptable level, please see your primary care physician. Thank you for choosing the [facility] for your care. If you have any questions after receiving an injection, or if your pain does not subside, please call at [phone] and let us know. Our goal is to lessen your pain and improve your function. documented in this encounter Discharge Disposition Disposition Code Departure Means Destination Auto Discharge documented in this encounter Progress Notes * Abby Rubalcava - 01/22/2019 1000 EDT Patient is here to discuss her right knee pain. She has had pain for qutie sometime. She feels grinding more when she is weightbearing.She last elected for a cortisone injection on 09/12/17 right kneewhich did offer her relief She does have a left knee replacement. She is here to go over options. REVIEW OF SYSTEMS: Yes No Yes [...] x Balance Issues x * Russel Otto - 01/22/2019 1000 EDT I have reviewed the review of systems and histories in the note by the TONI 73-year-old female with known right knee arthritis she is had good relief from steroid injection over a year ago it wore off last couple months she wants to consider repeating this she does not want a knee replacement which she had on her contralateral side if she can avoid it she does have some associated grinding with weightbearing but she is able to walk requesting some pain relief through steroid injection Alert and oriented she overweight her knee is tender at the joint lines but good motion able ligamentous structures 1. Primary osteoarthritis of right knee We talked about the nature of arthritis I went over this carefully on a visual aid in a model. We talked about the options for treatment including most conservative care with leg strengthening exercises either on their own or with the therapist occasionally use of cryotherapy, compression, bracing,rest, activity modification, weight loss, alternative therapies, jvln-[id number] type medications,assistive walking devices if required, other options include injection either steroid or viscose supplement. Or surgical approaches if others fail but she is hoping to avoid knee replacement and feels that she might be able to if injections work for a year at a time and continue in this fashion I think is reasonable to proceed with steroid injection at this time at her request The indications and contraindication as well as [...] inje ction and there were no complications. We spent time for questions and answers to ensure patient's satisfaction and understanding, and allowed time for a back and forth documented in this encounter Plan of Treatment Upcoming Encounters Date Type Department Care Team (Latest Contact Info) Description 03/27/2024 14:25 [facility] Hospital Encounter [facility] OR [address] [place] [address] Vishal Castillo MD [address] [place] [phone] 03/27/2024 14:25 EST - 03/27/2024 17:55 EST Surgery [facility] OR [address] [place], [place] [address] Vishal Castillo MD [address] [place] [phone] Left Reverse Total Shoulder Arthroplasty [46530 (CPT??)] 04/08/2024 15:30 EST Post-op Visit [facility] Hand & Upper Extremity Program - [address] [place] [address] Vishal Castillo MD [address] [place] [phone] Scheduled Procedures Name Priority Associated [...] encounter. gabapentin (NEURONTIN) 100 mg capsule Take 1 Capsule by mouth 7X DAILY. 4 caps in morning and 3 evening. added in this encounter Care Teams Soakers Supervisor Relationship Specialty Start Date End Date Barbara Conway NP [address] [place] [address] PCP - General 08/19/13 documented as of this encounter
--- OUTSIDE RECORDS SUMMARY | 2024-03-18 22:12 | XMS_ITS | Encounter Summary ---
Author Organization [facility] Address [address] [place] [address] Care Team Providers Care Chain Sales Representative Name Role Phone Barbara Conway Myla CLINICAL ATHLETIC INSTRUCTOR Primary Care Provider [phone] Encounter Details Date Type Department Care Team (Late st Contact Info) Description 09/09/2016 Orders Only [facility] General Surgery - [address] [id number] Arnel Oliva MD [address] [place] [address], [address] [place] [address] Social History Tobacco Use Types [...] Hospital Encounter [facility] OR [address] [place], [place] [address] Vishal Castillo MD [address] [place] [phone] 03/27/2024 14:25 EST - 03/27/2024 17:55 EST Surgery [facility] OR [address] [place] [phone] Vishal Castillo MD [address] [place] [phone] Left Reverse Total Shoulder Arthroplasty [35962 (CPT??)] 04/08/2024 15:30 EST Post-op Visit [facility] Upper [facility]remity [facility] - [address] [address] Vishal Castillo MD [address] [place] [phone] Scheduled Procedures Name Priority Associated Diagnoses Date/Ti me ARTHROPLASTY, SHOULDER, TOTAL Left rotator cuff tear arthropathy 03/27/2024 14:25 EST documented as of this encounter Procedures Procedure Name Priority Date/Time Associated Diagnosis Comments COLONOSCOPY PROCEDURE Routine 08/31/2016 documented in this encounter Results * COLONOSCOPY (08/31/2016) Colonoscopy [facility] Comment:Colonoscopy recommen ded in 5 years Colonoscopy, External [facility] Anatomical Region Laterality Modality Endoscopy 08/31/2016 us Historical Provider GI PROCEDURE ORDERABLES F inal Result documented in this encounter Visit Diagnoses Not on filedocumented in this encounter Care Teams Chain Sales Representative Relationship Specialty Start Date End Date Barbara Conway NP [address] [place], [place] [address] PCP - General 08/19/13 documented as of this encounter
--- OUTSIDE RECORDS SUMMARY | 2024-03-18 22:12 | XMS_ITS | Encounter Summary ---
Author Organization [facility] Address [address] [place] [address] Care Team Providers Care Civil Drafting Technician Name Role Phone Barbara Conway ASBESTOS SHINGLE ROOFER Primary Care Provider [phone] Reason for Visit * Radiology Services (Routine) - Closed Specialty Diagnoses / Procedures Referred By Maryuri sarmiento Referred To Contact Diagnoses Acute pain of right knee Procedures XR KNEE LEFT 1-2 VIEWS Russel Otto MD Phone: tel: fax: Referral ID Status Reason Start Date Expiration Date Visits Re quested Visits Authorized [id number] Closed 05/28/2019 1 1 Encounter Details Date Type Department Care Team (Latest Contact Info) Description 05/28/2019 8:45 EST - 05/29/2019 23:59 EST Hospital Encounter [facility] [address] [place], [place] [id number] Discharge Disposition: Home or Self Care Social [...] EST Hospital Encounter [facility] OR [address] [place] [id number] Vishal Castillo MD [address] [place] [phone] 03/27/2024 14:25 EST - 03/27/2024 17:55 EST Surgery [facility] OR [address] [place] [phone] Vishal Castillo MD [address] [place] [phone] Left Reverse Total Shoulder Arthroplasty [81433 (CPT??)] 04/08/2024 15:30 EST Post-op Visit [facility] Upper Extremity Program - [address] [address] Vishal Castillo MD [address] [place] [phone] Scheduled Procedures Name Priority Associated Diagnoses Date/Ti me ARTHROPLASTY, SHOULDER, TOTAL Left rotator cuff tear arthropathy 03/27/2024 14:25 EST documented as of this encounter Procedures Procedure Name Priority Date/Time Associated Diagnosis Comments XR KNEE LEFT 1-2 VIEWS Routine 05/28/2019 9:01 EST Acute pain of right knee documented in this [...] on filedocumented in this encounter Care Teams Civil Drafting Technician Relationship Specialty Start Date End Date Barbara Conway NP [address] [place] [address] PCP - General 08/19/13 documented as of this encounter
--- OUTSIDE RECORDS SUMMARY | 2024-03-18 22:12 | XMS_ITS | Encounter Summary ---
Author Organization [facility] Address [address] [place] [address] Care Team Providers Care Latin American Studies Director Name Role Phone Barbara Conway ASSOCIATE ENTERTAINMENT EDITOR Primary Care Provider [phone] Encounter Details Date Type Department Care Team (Late st Contact Info) Description 11/09/2017 Results Only Imaging [facility] [phone] Barbara Conway, ASSOCIATE ENTERTAINMENT EDITOR [address] [place], [place] [address] Social History Tobacco Use Types Packs/Day Years [...] Info) Description 03/27/2024 14:25 EST Hospital Encounter [facility] [place] [address] [place] [phone] Vishal Castillo MD [facility] [phone] 03/27/2024 14:25 EST - 03/27/2024 17:55 EST Surgery [facility] [place] [address] [place], [place] [phone] Vishal Castillo MD [address] [place] [phone] Left Reverse Total Shoulder Arthroplasty [54315 (CPT??)] 04/08/2024 15:30 EST Post-op Visit [facility] Upper Extremity Program - [address] [address] Vishal Castillo MD [address] [place] [phone] Scheduled Procedures Name Priority Associated Diagnoses Date/Ti me ARTHROPLASTY, SHOULDER, TOTAL Left rotator cuff tear arthropathy 03/27/2024 14:25 EST documented as of this encounter Procedures Procedure Name Priority Date/Time Associated Diagnosis Comments MA 2D/3D BILATERAL CLOVIS ROUTINE SCREENING MAMMO 12/18/2017 14:39 EDT documented in this encounter Results * MA 2D/3D BILATERAL CLOVIS ROUTINE SCREENING MAMMO (12/18/2017 14:39 EDT) Anatomical Region Laterality Modality Other 12/18/2017 14:3 9 EDT 12/19/2017 17:03 EDT Narrative 12/19/2017 17:03 EDT Comparison has been made to previous [...] will contact your patient directly. Procedure Note Sanam Blankenship MD - 12/19/2017 Comparison has been made to previous images. [...] on filedocumented in this encounter Care Teams Latin American Studies Director Relationship Specialty Start Date End Date Barabra Conway, ASSOCIATE ENTERTAINMENT EDITOR [address] [place] [address] PCP - General 08/19/13 documented as of this encounter
--- OUTSIDE RECORDS SUMMARY | 2024-03-18 22:12 | XMS_ITS | Encounter Summary ---
Author Organization [facility] Address [address] [place] [address] Care Team Providers Care Plastic Fixture Builder Name Role Phone Barbara Conway SHINGLE SAWYER Primary Care Provider [phone] Encounter Details Date Type Department Care Team (Late st Contact Info) Description 08/19/2016 Orders Only [facility] General Surgery - [facility] [address] [place] [address] Beth Cazares, АЛЕКСАНДР Social History Tobacco Use Types Packs/Day Years [...] Christopher Elmore RN documented in this encounter Ordered Prescriptions Prescription Sig Dispense Quantity Refills Last Filled Start Date End Date polyethylene glycol (GOLYTELY) 236-22.74-6.74 -5.86 gram suspension Patient is to follow one time directions sent from Dr Oliva's office. 1 Bottle 08/19/2016 0 documented in this encounter Plan of Treatment Upcoming Encounters Date Type Department Care Team (Latest Contact Info) Description 03/27/2024 14:25 EST Hospital Encounter [facility] OR [address] [place], [place] [phone] Vishal Castillo MD [address] [place] [phone] 03/27/2024 14:25 EST - 03/27/2024 17:55 EST Surgery [facility] OR [address] [place], [place] [phone] Vishal Castillo MD [address] [place] [phone] Left Reverse Total Shoulder Arthroplasty [34543 (CPT??)] 04/08/2024 15:30 EST Post-op Visit [facility] Upper Extremity Program - [address] [place] [address] Vishal Castillo MD [address] [place] [phone] Scheduled Procedures Name Priority Associated Diagnoses Date/Ti me ARTHROPLASTY, SHOULDER, TOTAL Left rotator cuff tear arthropathy 03/27/2024 14:25 EST documented as of this encounter Visit Diagnoses Not on filedocumented in this encounter Discontinued Medications Medication Sig Discontinue Reason Start Date End Da te polyethylene glycol (GOLYTELY) 236-22.74-6.74 -5.86 gram suspension Patient is to follow one time directions sent from Dr Oliva's office. Reorder 07/14/2016 08/19/2016 documented as of this encounter Care Teams Plastic Fixture Builder Relationship Specialty Start Date End Date Barabra Conway NP [address] [place], [place] [address] PCP - General 08/19/13 documented as of this encounter
--- OUTSIDE RECORDS SUMMARY | 2024-03-18 22:13 | XMS_ITS | Encounter Summary ---
Author Organization [facility] Address [address] [place] [address] Care Team Providers Care Naval Aircrewman Operator Name Role Phone Barbara Conway Myla AUTOMOBILE TESTER Primary Care Provider [phone] Reason for Visit * Reason Comments Menopause Diabetes type II Encounter Details Date Type Department Care Team (Latest Contact Info) Description 03/07/2014 11:[address] [facility] Osteoporosis - [facility] [address] [place], [place] [phone] Vishal Hussein MD RadSamra MD Loss of height (Primary Dx); DM (diabetes mellitus), type 2 (CMS-HCC) (HCC-CMS); Asymptomatic postmenopausal status (age-related) (natural); History of high risk medication treatment; Special screening for osteoporosis Social History Tobacco Use Types Packs/Day Years [...] - - Weight 91.6 kg (202 lb) 03/07/2014 1049 EST Height 158.9 cm (5' 2.56) 03/07/2014 1049 EST Body Mass Index 36.29 03/07/2014 1049 EST documented in this encounter Mental Status * Because of a physical, mental, or emotional condition, do you have serious difficulty concentrating, remembering, or making decisions? (5 years old or older) Answer Entry Date Author Yes 01/04/2013 20:00 Christopher Oliveros RN documented in this encounter Discharge Diagnoses Diagnosis V82.81 SPECIAL SCREENING FOR OSTEOPOROSIS[ICD-9-CM] V49.81 POSTMENOPAUSAL STATUS (AGE-RELATED) (NATURAL)[ICD-9-CM] 781.91 LOSS OF HEIGHT[ICD-9-CM] 250.00 DIABETES UNCOMPL ADULT-TYPE II[ICD-9-CM] documented in this encounter Progress Notes * Iraida Castaneda - 03/07/2014 1124 EST Procedure Date: 03/07/2014 Referring Physician: Barbara Conway NP Previous Scan Date: 11/15/2007 ABN Necessary: No Ht 158.9 cm (62.56) Wt 91.627 kg (202 lb) BMI 36.29 kg/m2 Done AP SPINE yes FEMUR yes TOTAL BODY FOREARM Left forearm yes LVA/VFA HEEL US PATIENT HISTORY: Patient Active Problem List Diagnosis ??? Personal history of colonic polyps ??? Traumatic arthropathy, lower leg ??? Status post total knee replacement ??? Osteoarthritis of knee Past Medical History Diagnosis Date ??? Complication of anesthesia nausea ??? Colon polyp ??? Diabetes mellitus ??? Colon cancer cancerous polyp removed Apr 2005 ??? Hypertension ??? GERD (gastroesophageal reflux disease) ??? Rectal cancer stage 1 colo rectal cancer Additional Comments: Previous/Prior Comparison? Yes Pharmacologic? No [facility] Patient Information Ethnicity/Race: Nutrition and Exercise: Do you or have you smoked in the last 6 months? No Do you consume dairy? Yes Number of servings per day? 1 Do you take calcium supplements? Yes Amount? 1,200 mg daily Do you drink 3 or more alcoholic beverages daily? No Have you now or have you had in the past an eating disorder? No Family History: Did your mother or father have a hip fracture? No Do you have a parent or sibling who suffered a broken hip, shoulder, wrist or ribs after age 45? No Patient History-Medications: Have you taken any of the following medications or treatments. (Now or in the past)? Steroid (prednisone, cortisone, Medrol) 5mg. or more for at least 3 months? No Thyroid medication for thyroid cancer suppression? No Anticonvulsants (phenytoin, Dilantin, phenobarbital) No GnRH Agonist (for endometriosis or prostate cancer, Example - Lupron) No Depo Povera (Current use) No Aromatase inhibitor: Letrozol (Femera), Anastrozole (arimidex), No Exemestane (Aromasin) TZD's for diabetes (Actos, Avandia) Past use X 1 yr - stopped 10 yrs ago Medical History: Have you had any of the following? Hyperthyroidism (over active thyroid) No Hyperparathyroidism (over active parathyroid, high blood calcium) No Kidney failure No Rheumatoid arthritis No Seizure disorder (epilepsy) No Diabetes mellitus Yes - Type II Bariatric surgery/Gastric bypass No Fractures after age 40 No Area: Treatments: Alendronate (Fosamax) Never Calcitonin (Miacalcin) Never Denosumab (Prolia) Never Ibandronate (Boniva) Never Pamidronate (Aredia) Never Raloxifene (Evista) Never Risendronate (Actonel) Never Teriparatide (Forteo) Never Zoledronic Acid (Reclast, Zomata) Never Other: For Women Only: What was your age at menopause? 49 Are you taking estrongen now or within the past year? No Have you been treated for breast cancer? No * Left forearm done due to increased Arthritic changes since last DXA in lower spine. Iraida Castaneda 03/07/2014 11:24 documented in this encounter Plan of Treatment Upcoming Encounters Date Type Department Care Team (Latest Contact Info) Description 03/27/2024 14:25 EST Hospital Encounter [facility] OR [address] [place] [address] Vishal Castillo MD [address] [place] [phone] 03/27/2024 14:25 EST - 03/27/2024 17:55 EST Surgery [facility] OR [address] [place] [address] Vishal Castillo MD [address] [place] [phone] Left Reverse Total Shoulder Arthroplasty [81906 (CPT??)] 04/08/2024 15:30 EST Post-op Visit [facility] Hand & Upper Extremity Program - [address] [place] [address] Vishal Castillo MD [address] [place] [phone] Scheduled Procedures Name Priority Associated Diagnoses Date/Ti me ARTHROPLASTY, SHOULDER, TOTAL Left rotator cuff tear arthropathy 03/27/2024 14:25 EST documented as of this encounter Procedures Procedure Name Priority Date/Time Associated Diagnosis Comments ORDERS - SCANNED 03/19/2014 11:1 8 EST DXA DUAL XRAY ABSORPTIOMETRY FOR BONE DENSITY ([facility] PERFORMED) Routine 03/17/2014 14:06 EST Special screening for osteoporosis Asymptomatic postmenopausal status (age-related) (natural) documented in this encounter Results * ORDERS - SCANNED (03/19/2014 11:18 EST) 03/19/2014 11:1 8 EST us Scan 2 [employer] ADMISSION ORDERABLES Final Result * DXA-DUAL XRAY ABSORPTIOMETRY FOR BONE DENSITY (03/17/2014 14:06 EST) DEXA Bone Density [facility] DEXA Bone Density, External [facility] Anatomical Region Laterality Modality Other 03/17/2014 14:0 6 EST Barbara Conway AUTOMOBILE TESTER IMG DEXA ORDERABLES Final Res ult documented in this encounter Visit Diagnoses Diagnosis Loss of height- Primary DM (diabetes mellitus), type 2 ([facility]) Type II or unspecified type diabetes mellitus without mention of complication, not stated as uncontrolled Asymptomatic postmenopausal status (age-related) (natural) History of high risk medication treatment Special screening for osteoporosis Left rotator cuff tear arthropathy documented in this encounter Care Teams Naval Aircrewman Operator Relationship Specialty Start Date End Date Barbara Conway, AUTOMOBILE TESTER [address] [place] [address] PCP - General 08/19/13 documented as of this encounter
--- OUTSIDE RECORDS SUMMARY | 2024-03-18 22:13 | XMS_ITS | Encounter Summary ---
Author Organization [facility] Address [address] [place] [address] Care Team Providers Care Ceramic Maker Demonstrator Name Role Phone Alok Reyes Primary Care Provider [phone] Encounter Details Date Type Department Care Team (Late st Contact Info) Description 07/24/2013 9:37 EDT - 07/24/2013 13:41 EDT Hospital Encounter [facility] Endoscopy Outpatient [address] [place] [address] Nikita Muñoz MD [address] [facility] [address] [place] [address] Discharge Disposition: Home or Self Care Social History Tobacco Use Types Packs/Day Years Used Date Smoking Tobacco: Never Alcohol Use Standard Drinks/Week Comments No 0 (1 standard drink = 0.6 oz pur e alcohol) Comments Unknown Sex and Gender Information Value Date Recorded Sex Assigned at Female 03/08/2024 18:30 EST Legal Sex Female 18:30 EST Gender Identity Female 05/28/2019 8:56 EST Sexual Orientation Not on file documented as of this encounter Last Filed Vital Signs Vital Sign Reading Time Taken Comments Blood Pressure 101/58 07/24/2013 1235 EDT Pulse - - Temperature 35.8 ??C (96.4 ??F) 07/24/2013 1205 EDT Respiratory Rate 16 07/24/2013 1235 EDT Oxygen Saturation 97% 07/24/2013 1235 EDT Inhaled Oxygen Concentration - - Weight 90.7 kg (200 lb) 07/24/2013 1012 EDT Height 166.4 cm (5' 5.51) 07/24/2013 1012 EDT Body Mass Index 32.76 07/24/2013 1012 EDT documented in this encounter Mental Status [...] follow one time directions given by Dr. Muñoz's office 1 Bottle 0 05/21/2013 7 scopolamine [...] documented in this encounter H&P Notes * Nikita Muñoz MD - 07/24/2013 1116 EDT Sedation for Procedure History & Physical Date: 07/24/2013 Time: 11:16 Location: 4 Endo Planned Procedure: Colonoscopy Chief Complaint/Indications for Procedure: 3 yr follow- up History Previous Complication with Sedation and/or Anesthesia? No Allergies: Allergies Allergen Reactions ??? Zocor (Simvastatin) Other (See Comments) severe leg cramps Current Medications: (Not in a hospital admission) Past Medical History: Past Medical History Diagnosis Date ??? Complication of anesthesia nausea ??? Colon polyp ??? Diabetes mellitus ??? Colon cancer cancerous polyp removed Apr 2005 ??? Hypertension ??? GERD (gastroesophageal reflux disease) ??? Rectal cancer stage 1 colo rectal cancer Social History: Past Surgical History Procedure Laterality Date ??? Tubal ligation ??? Joint replacement left knee History Substance Use Topics ??? Smoking status: Never Smoker ??? Smokeless tobacco: Not on file ??? Alcohol Use: No Family History: Family History Problem Relation Age of Onset ??? Diabetes Mother ??? Cancer Father lung cancer Review of Systems as pertinent: Physical Exam Vital Signs: BP 121/85 Temp(Src) 36.4 ??C (97.5 ??F) Resp 16 Ht 166.4 cm (65.51) Wt 90.719kg (200 lb) BMI 32.76 kg/m2 SpO2 99% Heart Examination: Cardiac Regularity: Regular Respiratory Examination: Respiratory Pattern: Regular Breath Sounds Right: Clear Breath Sounds Left: Clear Additional physical exam related to the proposed procedure, patient activity, disease state and treatment as pertinent: Assessment Previous complications with sedation or anesthesia?: No Airway Concerns: None Anesthesia Classification: ASA 2 Plan: Proceed with sedation for procedure Fasting Time: Time of last liquid intake: 0700 Date of Last Liquid Intake: 07/24/13 (sip with meds) Time of last solid intake: 2300 Date of last solid intake: 07/22/13 Patient Appropriate Candidate for Planned Sedation?: Yes NIKITA MUÑOZ MD 07/24/2013 11:16 documented in this encounter Procedure Notes * TEMPER MILL OPERATOR, SCAN 2 - 07/25/2013 0037 EDTAssociated Order(s): PROCEDURE REPORTS - SCANNED documented in this encounter Miscellaneous Notes * Coding Query - Nikita Muñoz MD - 07/30/2013 1610 EDT CODING QUERY - PLEASE EDIT Physicians: Please document your response by deleting the three asterisks and editing the message. Click Sign to sign the note and send your response. In order to ensure that the reported codes best reflect your patient???s condition, further clarification is required. Please consider the clinical presentation, workup, and treatment for this patient when responding. The patient???s chart can be reviewed electronically in [facility]. In order to code this colonoscopy procedure correctly, clarification is needed in regards to the intent for the colonoscopy the patient had on date of service 07/24/2013. H&P indicates 3 year follow-up Colonoscopy procedure report indicates (nothing indicated) Please select from the following the most appropriate ???indication for the colonoscopy procedure???: ___Average Risk screening colonoscopy __x_High Risk screening colonoscopy ___Evaluation of sign/symptoms - diagnostic colonoscopy If you have problems completing this form, please call the Help Desk at [phone]. If you have any questions about the content of this query, please contact Gayle Cisse hotel reservationist, at [phone]. documented in this encounter Plan of Treatment Upcoming Encounters Date Type Department Care Team (Latest Contact Info) Description 03/27/2024 14:25 EST Hospital Encounter [facility] OR [address] [place] [address] [phone] Vishal Castillo MD [address] [place] [phone] 03/27/2024 14:25 EST - 03/27/2024 17:55 EST Surgery [facility] OR [address] [place] [address] [phone] Vishal Castillo MD [address] [place] [phone] Left Reverse Total Shoulder Arthroplasty [98712 (CPT??)] 04/08/2024 15:30 EST Post-op Visit [facility] Hand & Upper Extremity Program - [address] [place] [address] Vishal Castillo MD [address] [place] [phone] Scheduled Procedures Name Priority Associated Diagnoses Date/Ti me ARTHROPLASTY, SHOULDER, TOTAL Left rotator cuff tear arthropathy 03/27/2024 14:25 EST documented as of this encounter Procedures Procedure Name Priority Date/Time Associated Diagnosis Comments MA MAMMO SCREENING DIGITAL 09/20/2013 10:26 EDT PROCEDURE REPORTS - SCANNED 07/25/2013 0:37 EDT SURGICAL PATHOLOGY Routine 07/24/2013 13 :19 EDT GLUCOSE, GLUCOMETER Routine 07/24/2013 1 0:30 EDT documented in this encounter Results * MA MAMMO SCREENING DIGITAL (09/20/2013 10:26 EDT) Anatomical Region Laterality Modality Other 09/20/2013 10:2 6 EDT 09/20/2013 14:06 EDT Narrative 09/20/2013 14:06 EDT Comparison has been made to previous images. Bilateral Breast Findings: (Routine digital views with CAD) There are scattered fibroglandular [...] will contact your patient directly. Procedure Note 09/20/2013 Comparison has been made to previous images. Bilateral Breast Findings: (Routine digital views with CAD) There are scattered fibroglandular [...] needed we will contact your patient directly. us Barbara Conway NP IMG MAMMOGRAPHY ORDERABLES Fi nal Result * PROCEDURE REPORTS - SCANNED (07/25/2013 0:37 EDT) 07/25/2013 0:37 EDT Narrative 07/25/2013 2:25 EDT Procedure Note TEMPER MILL OPERATOR, SCAN 2 - 07/25/2013 0:37 EDT us Scan 2 Software Engineer Kernel PROCEDURE/MINOR SURGICAL OR DERABLES Final Result * SURGICAL PATHOLOGY (07/24/2013 13:19 EDT) Pathology Report: SURGICAL PATHOLOGY REPORT Reports generated via electronic interface contain original data; however they are lacking the format of the original report. Caution should be taken when reading/interpreti ng unformatted reports. Name: ? BRYCE HILL ? Accession #: ? [id number] ? : ? 1945 (Age: 68) ??F ? Collect Date: ? 07/24/2013 ? Location: ? ENDOP ? Receive Date: ? 07/24/2013 ? Provider: NIKITA MUÑOZ MD Copy to: ALOK CARREON ? Final Pathologic Diagnosis: POLYP, CECUM, BIOPSY: - ??Tubular adenoma. Document reviewed and electronically signed by: OANH HWANG MD Report ??Date: 07/25/2013 16:03 By the signature above, the attending physician certifies that he/she has personally conducted a gross and/or microscopic examination of the described specimens and rendered or confirmed the above diagnosis. Specimen(s) Received: Cecal polyp Clinical History: Hx of malig polyp 6 yrs ago Gross Description: ? Received in formalin labelled with proper patient identification (initials G, D) and cecal polyp is a single pink-hewitt tissue fragment (0.3 x 0.3 x 0.2 cm). Submitted intact in cassette 1. Tessa Matt 07/24/2013 02:33 PM End of Report [facility] 07/24/2013 13:1 9 EDT 07/24/2013 13:19 EDT us Nikita Muñoz MD PATHOLOGY ORDERABLES Final Re sult Performing Organization Address City/[facility]/ZIP Co de Phone Number [facility] [address] [place] [address] * (ABNORMAL) GLUCOSE, GLUCOMETER (07/24/2013 10:30 EDT) Glucose, Fingerstick 151(H) 70 - 100 mg/dl [facility] [employer] [place] [id number] [facility] Comment:Test Performed by [facility] 07/24/2013 10:3 0 EDT 07/24/2013 10:31 EDT us Provider Turner KIM CHEMISTRY & BLOOD GAS ORDERA BLES Final Result Performing Organization Address [facility] Co de Phone Number [facility] [address] [place] [address] documented in this encounter Visit Diagnoses Not on filedocumented in this encounter Administered Medications Inactive Administered Medications - up to 3 most recent administrations Medication Order MAR Action Action Date Dose Rate Site midazolam (PF) (VERSED) 1 mg/mL injection 1-10 mg 1-10 mg, intravenous, ONCE PRN, 1 dose, Starting on Mon07/24/13 at 1152, Until Mon07/24/13 at 1152, Sedation, Routine, Intraprocedure Given 07/24/2013 11:52 EDT 3 mg sodium chloride 0.9 % (NS) infusion at 25 mL/hr, intravenous, CONTINUOUS, Starting on Mon07/24/13 at 1100, Until Mon07/24/13 at 1545, Routine New Bag 07/24/2013 10:36 EDT 25 mL/hr documented in this encounter Orders Medications Ordered That Asif ht Not Have Been Administered Count Last Ordered Date First Ordered Date meperidine (PF) (DEMEROL) 10 0 mg/mL injection 25-200 mg 1 07/24/2013 sodium chloride 0.9 % (NS) infusion 1 07/24 Transfer Count Last Ordered Date First Orde red Date NOTIFY PPS OF DISCHARGE COMPLETE 1 07/25/19 14 Discharge Count Last Ordered Date First Orde red Date DISCHARGE PATIENT 1 07/24/2013 documented in this encounter Care Teams Ceramic Maker Demonstrator Relationship Specialty Start Date End Date Alok Reyes PA [address] [place] [address] PCP - General 07/24/13 08/18/13 documented as of this encounter
--- OUTSIDE RECORDS SUMMARY | 2024-03-18 22:13 | XMS_ITS | Encounter Summary ---
Author Organization [facility] Address [address] [place] [address] Care Team Providers Care Hydrologic Modeler Name Role Phone JuanBarbara whitney Myla ANIMATION CAMERA OPERATOR Primary Care Provider [phone] Encounter Details Date Type Department Care Team (Late st Contact Info) Description 12/28/2012 Pre-Procedure Orders Encounter [facility] ORTHOPEDIC SURGERY [address] [place] [address] [phone] Miguel Mckenzie, PASusie [address] [place] [phone] Social History Tobacco Use Types Packs/Day Years Used Date Smoking Tobacco: Never Assessed Comments Unknown Sex and Gender Information Value Date Recorded Sex Assigned at Female 03/08/2024 18:30 EST Legal Sex Female 18:30 EST Gender Identity Female 05/28/2019 8:56 EST Sexual Orientation Not on file documented as of this encounter Plan of Treatment Upcoming Encounters Date Type Department Care Team (Latest Contact Info) Description 03/27/2024 14:25 EST Hospital Encounter [facility] OR [address] [place] [address] [phone] Vishal Castillo MD [address] [place] [phone] 03/27/2024 14:25 EST - 03/27/2024 17:55 EST Surgery [facility] OR [address] [place] [address] Vishal Castillo MD [address] [place] [phone] Left Reverse Total Shoulder Arthroplasty [75861 (CPT??)] 04/08/2024 15:30 EST Post-op Visit [facility] Hand & Upper Extremity Program - [address] [place] [address] Vishal Castillo MD [address] [place] [phone] Scheduled Procedures Name Priority Associated Diagnoses Date/Ti me ARTHROPLASTY, SHOULDER, TOTAL Left rotator cuff tear arthropathy 03/27/2024 14:25 EST documented as of this encounter Visit Diagnoses Not on filedocumented in this encounter Care Teams Hydrologic Modeler Relationship Specialty Start Date End Date Barbara Conway, ANIMATION CAMERA OPERATOR [address] [place] [address] PCP - General 08/14/08 07/22/13 documented as of this encounter
--- OUTSIDE RECORDS SUMMARY | 2024-03-18 22:13 | XMS_ITS | Encounter Summary ---
Author Organization [facility] Address [address] [place] [address] Care Team Providers Care Paper Products Supervisor Name Role Phone Barbara Conway Myla YARN CARRIER Primary Care Provider [phone] Encounter Details Date Type Department Care Team (Late st Contact Info) Description 12/10/2012 Phlebotomy Only [address] [id number] Implant Polisher, Outpatient Social History Tobacco Use Types Packs/Day Years [...] Info) Description 03/27/2024 14:25 EST Hospital Encounter [facility] OR [address] [place] [address] [phone] Vishal Castillo MD [address] [place] [phone] 03/27/2024 14:25 EST - 03/27/2024 17:55 EST Surgery [facility] OR [address] [place] [address] [phone] Vishal Castillo MD [address] [place] [phone] Left Reverse Total Shoulder Arthroplasty [52096 (CPT??)] 04/08/2024 15:30 EST Post-op Visit [facility] Hand & Upper Extremity Program - [facility] [address] [facility] [place] [address] Vishal Castillo MD [address] [place] [phone] Scheduled Procedures Name Priority Associated Diagnoses Date/Ti me ARTHROPLASTY, SHOULDER, TOTAL Left rotator cuff tear arthropathy 03/27/2024 14:25 EST documented as of this encounter Visit Diagnoses Not on filedocumented in this encounter Care Teams Paper Products Supervisor Relationship Specialty Start Date End Date Barbara Conway, YARN CARRIER [address] [place] [address] PCP - General 08/14/08 07/22/13 documented as of this encounter
--- OUTSIDE RECORDS SUMMARY | 2024-03-18 22:13 | XMS_ITS | Encounter Summary ---
Author Organization [facility] Address [address] [place] [address] Care Team Providers Care Eye Surgeon Name Role Phone Barbara Conway PARTNER MANAGEMENT CONSULTANT Primary Care Provider [phone] Encounter Details Date Type Department Care Team (Late st Contact Info) Description 05/21/[address] [facility] General Surgery - [facility] [address] [place] [address] Sera Green, АЛЕКСАНДР Social History Tobacco Use Types Packs/Day Years Used Date Smoking Tobacco: Never Alcohol Use Standard Drinks/Week Comments Not Asked 0 (1 standard drink = 0.6 oz [...] Date End Date polyethylene glycol (GOLYTELY) 236-22.74-6.74 gram suspension Patient to follow one time directions given by Dr. Oliva's office 1 Bottle 0 05/21/2013 7 documented in this encounter Plan of Treatment Upcoming Encounters Date Type Department Care Team (Latest Contact Info) Description 03/27/2024 14:25 EST Hospital Encounter [facility] OR [address] [place], [place] [phone] Vishal Castillo MD [address] [place] [phone] 03/27/2024 14:25 EST - 03/27/2024 17:55 EST Surgery [facility] OR [address] [place] [address] [phone] Vishal Castillo MD [address] [place] [phone] Left Reverse Total Shoulder Arthroplasty [30153 (CPT??)] 04/08/2024 15:30 EST Post-op Visit [facility] Hand & Upper Extremity Program - [address] [address] Vishal Castillo MD [address] [place] [phone] Scheduled Procedures Name Priority Associated Diagnoses Date/Ti me ARTHROPLASTY, SHOULDER, TOTAL Left rotator cuff tear arthropathy 03/27/2024 14:25 EST documented as of this encounter Visit Diagnoses Not on filedocumented in this encounter Care Teams Eye Surgeon Relationship Specialty Start Date End Date Barbara Conway NP [address] [place], [place] [phone] PCP - General 08/14/08 07/22/13 documented as of this encounter
--- OUTSIDE RECORDS SUMMARY | 2024-03-18 22:13 | XMS_ITS | Encounter Summary ---
Author Organization [facility] Address [address] [place] [address] Care Team Providers Care Laboratory Associate Name Role Phone Barbara Conway JOB PRESS OPERATOR Primary Care Provider [phone] Encounter Details Date Type Department Care Team (Late st Contact Info) Description 01/12/2012 Results Only [facility]- [facility] [phone] Barbara Conway, JOB PRESS OPERATOR [address] [place], [place] [address] Social History Tobacco Use Types Packs/Day Years [...] Description 03/27/2024 14:[address] [facility] OR [address] [place] [address] [phone] Vishal Castillo MD [address] [place] [phone] 03/27/2024 14:25 EST - 03/27/2024 17:[address] [facility] OR [address] [place] [address] [phone] Vishal Castillo MD [address] [place] [phone] Left Reverse Total Shoulder Arthroplasty [42759 (CPT??)] 04/08/2024 15:30 EST Post-op Visit [facility] Hand & Upper Extremity Program - [address] [address] Vishal Castillo MD [address] [place] [phone] Scheduled Procedures Name Priority Associated Diagnoses Date/Ti me ARTHROPLASTY, SHOULDER, TOTAL Left rotator cuff tear arthropathy 03/27/2024 14:25 EST documented as of this encounter Procedures Procedure Name Priority Date/Time Associated Diagnosis Comments URINE NMVORHA-CC-EBITZMVWEV RATIO (ACR) Routine 01/12/2012 6:20 EDT HEMOGLOBIN A1C Routine 01/12/2012 6:20 EDT LIPID PROFILE (INCLUDES CHOLESTEROL, TRIGLYCERIDES, HDL, LDL) Routine 01/12/2012 6:20 EDT COMPREHENSIVE METABOLIC PANEL (CMP) Routine 01/12/2012 6:20 EDT documented in this encounter Results * (ABNORMAL) ALBUMIN, URINE (01/12/2012 6:20 EDT) Creatinine, Urn Tuttle 383.1 mg/dl [facility] Ur Albumin mg/dl 2.7(H) <1.9 mg/dl [facility] Ur Alb ug/mg Crea 7.0 ug/mg Crea [facility] Comment: Normal: <30 ug/mg creat High: 30-300 ug/mg creat Very high and nephrotic: >300 ug/mg creat 01/12/2012 6:20 EDT 01/12/2012 11:38 EDT us Barbara Conway JOB PRESS OPERATOR CHEMISTRY & BLOOD GAS ORDERAB LES Final Result [facility] [address] [place] [address] * LIPID PROFILE (INCLUDES CHOLESTEROL, TRIGLYCERIDES, HDL, LDL) (01/12/2012 6:20 EDT) Cholesterol 188 mg/dl [facility] Comment: Desirable:<200 Borderline High:200-239 High:>sc=905 Triglycerides 103 mg/dl [facility] Comment: Normal:<150 Borderline High:150-199 High:200-499 Very High:>sf=869 HDL 68 mg/dl [facility] Comment: Low:<40 Normal:40-60 Desirable: >60 LDL, Calculated 99 mg/dl [facility] Comment: Optimal:<100 Near Optimal:100-129 Borderline High:130-159 High:160-189 Very High:>kb=577 Chol/HDL Ratio 2.8 [facility] Fasting? Yes [facility] 01/12/2012 6:20 EDT 01/12/2012 11:35 EDT us Barbara Conway NP CHEMISTRY & BLOOD GAS ORDERAB LES Final Result Performing Organization Address [facility] Phone Number [facility] [address] [place] [address] * HEMOGLOBIN A1C (01/12/2012 6:20 EDT) Pathologist [facility] Hemoglobin A1C 6.7 % [facility] Comment: Reference Range: <5.7% Normal 5.7-6.4% Increased risk for diabetes =>6.5% Diagnostic for diabetes (if confirmed) The A1c goal for non adults in general is <7%. The A1c goal for selected patients may be significantly lower than 7% if this can be achieved without significant hypoglycemia or other adverse effects of treatment. Est Avg Glucose 146 mg/dl [facility] Comment: eAG represents the A1c result expressed as average glucose in mg/dl. 01/12/2012 6:20 EDT 01/12/2012 11:35 EDT us Barbara Conway JOB PRESS OPERATOR CHEMISTRY & BLOOD GAS ORDERAB LES Final Result Performing Organization Address City/[facility] [address]/ZIP Co de Phone Number [facility] [address] [place] [address] * (ABNORMAL) COMPREHENSIVE METABOLIC PANEL (CMP) (01/12/2012 6:20 EDT) Potassium 4.3 3.5 - 5.0 mEq/L [facility] Sodium 140 136 - 145 mEq/L [facility] Chloride 104 96 - 110 mEq/L [facility] CO2 27 24 - 32 mEq/L [facility] Total Alkaline Phosphatase 84 38 - 126 U/L [facility] Bilirubin, Total 0.5 0.2 - 1.3 mg/dl [facility] AST 28 15 - 46 U/L [facility] ALT 35 9 - 52 U/L [facility] Albumin 4.1 3.4 - 4.9 g/dl [facility] Total Protein 6.9 6.5 - 8.3 g/dl [facility] Creatinine 0.76 0.52 - 1.04 mg/dl [facility] GFR, Calculated >60 >60 ml/min/1.7 3m2 [facility] BUN 17 10 - 26 mg/dl [facility] Calcium 9.8 8.5 - 10.5 mg/dl [facility] Calculated Calcium 10.1 8.5 - 10.5 mg/dl [facility] Glucose, Serum 127(H) 70 - 100 mg/dl [facility] Fasting? Yes [facility] 01/12/2012 6:20 EDT 01/12/2012 11:35 EDT us Barbara Conway JOB PRESS OPERATOR CHEMISTRY & BLOOD GAS ORDERAB LES Final Result Performing Organization Address City/[facility]/ZIP Co de Phone Number [facility] [address] [place] [address] documented in this encounter Visit Diagnoses Not on filedocumented in this encounter Care Teams Laboratory Associate Relationship Specialty Start Date End Date Barbara Conway, JOB PRESS OPERATOR [address] [place] [address] PCP - General 08/14/08 07/22/13 documented as of this encounter
--- OUTSIDE RECORDS SUMMARY | 2024-03-18 22:13 | XMS_ITS | Encounter Summary ---
Author Organization [facility] Address [address] [place] [address] Care Team Providers Care Supervisor Alum Plant Name Role Phone ZoraidaBarbara Myla EXTERIOR INTERIOR SPECIALIST Primary Care Provider [phone] Reason for Visit * Reason Comments Follow-up Changes in Bowel Mov ements a month ago/now doing better Encounter Details Date Type Department Care Team (Late st Contact Info) Description 09/28/2012 15:30 EDT Office Visit [facility] General Surgery - [address] [phone] Arnel Oliva MD [address] [place] [address], [address] [place] [address] Personal history of colonic polyps (Primary Dx) Social History Tobacco Use Types Packs/Day Years Used Date Smoking Tobacco: Never Assessed Comments Unknown Sex and Gender Information Value Date Recorded Sex Assigned at Female 03/08/2024 18:30 EST Legal Sex Female 18:30 EST Gender Identity Female 05/28/2019 8:56 EST Sexual Orientation Not on file documented as of this encounter Progress Notes * Arnel Oliva MD - 09/28/2012 1779 EDT 52/2 yrs s/p TEM for malig rectal polyp compl by AV fist. Now doing well no signs recurrence. 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 Trouble w fistula with loose stools.Now back to baseline ROS x 10 neg Pe Const normal abd benign no masses; skin no rashes Groin no LNs Rectal no masses AV fist unchanged Doing well 5 yrs s/p TEM for malig polyp check CEA today. No more CEAs colo Apr 2013 documented in this encounter Plan of Treatment Upcoming Encounters Date Type Department Care Team (Latest Contact Info) Description 03/27/2024 14:25 EST Hospital Encounter [facility] OR [address] [place] [address] [id number] Vishal Castillo MD [address] [place] [phone] 03/27/2024 14:25 EST - 03/27/2024 17:55 EST Surgery [facility] OR [address] [place] [address] [phone] Vishal Castillo MD [address] [place] [phone] Left Reverse Total Shoulder Arthroplasty [70957 (CPT??)] 04/08/2024 15:30 EST Post-op Visit [facility] Hand & Upper Extremity Program - [address] [phone] Vishal Castillo MD [address] [place] [phone] Scheduled Procedures Name Priority Associated Diagnoses Date/Ti me ARTHROPLASTY, SHOULDER, TOTAL Left rotator cuff tear arthropathy 03/27/2024 14:25 EST documented as of this encounter Visit Diagnoses Diagnosis Personal history of colonic polyps- Primary Left rotator cuff tear arthropathy documented in this encounter Care Teams Supervisor Alum Plant Relationship Specialty Start Date End Date Barbara Conway, [place] [address] [place] [address] PCP - General 08/14/08 07/22/13 documented as of this encounter
--- OUTSIDE RECORDS SUMMARY | 2024-03-18 22:13 | XMS_ITS | Encounter Summary ---
Author Organization [facility] Address [address] [place] [address] Care Team Providers Care Acid Pump Operator Name Role Phone Barbara Conway RN OTOLARYNGOLOGY Primary Care Provider [phone] Encounter Details Date Type Department Care Team (Latest Contact Info) Description 09/22/2014 7:53 EDT - 09/22/2014 23:59 EDT Hospital Encounter [address] [address] Barbara Conway, RN OTOLARYNGOLOGY [address] [place] [address] [phone] Discharge Disposition: Auto Discharge Social History Tobacco [...] documented in this encounter Discharge Diagnoses Diagnosis V76.12 OTHER SCREENING MAMMOGRAM FOR MALIGNANT NEOPLASM OF BREAST[ICD-9-CM] documented in this encounter Medications at Time [...] Info) Description 03/27/2024 14:25 EST Hospital Encounter [facility] OR [address] [place] [address] [phone] Vishal Castillo MD [address] [place] [phone] 03/27/2024 14:25 EST - 03/27/2024 17:55 EST Surgery [facility] OR [address] [place] [address] [phone] Vishal Castillo MD [address] [place] [phone] Left Reverse Total Shoulder Arthroplasty [22680 (CPT??)] 04/08/2024 15:30 EST Post-op Visit [facility] Hand & Upper Extremity Program - [address] [place] [address] Vishal Castillo MD [address] [place] [phone] Scheduled Procedures Name Priority Associated Diagnoses Date/Ti me ARTHROPLASTY, SHOULDER, TOTAL Left rotator cuff tear arthropathy 03/27/2024 14:25 EST documented as of this encounter Visit Diagnoses Not on filedocumented in this encounter Care Teams Acid Pump Operator Relationship Specialty Start Date End Date Barbara Conway, RN OTOLARYNGOLOGY [address] [place] [address] PCP - General 08/19/13 documented as of this encounter
--- OUTSIDE RECORDS SUMMARY | 2024-03-18 22:13 | XMS_ITS | Encounter Summary ---
Author Organization [facility] Address [address] [place] [address] Care Team Providers Care Hose Coupling Joiner Name Role Phone Barbara Conway STUDENT ASSISTANT Primary Care Provider [phone] Encounter Details Date Type Department Care Team (Late st Contact Info) Description 08/23/2012 Results Only Imaging [facility] [phone] Barbara Conway, STUDENT ASSISTANT [address] [place], [place] [phone] Social History Tobacco Use Types Packs/Day Years [...] Description 03/27/2024 14:25 EST Hospital Encounter [facility] OR [address] [place] [address] [id number] Vishal Castillo MD [address] [place] [phone] 03/27/2024 14:25 EST - 03/27/2024 17:55 EST Surgery [facility] OR [address] [place] [address] [phone] Vishal Castillo MD [address] [place] [phone] Left Reverse Total Shoulder Arthroplasty [16164 (CPT??)] 04/08/2024 15:30 EST Post-op Visit [facility] Hand & Upper Extremity Program - [address] [place] [address] Vishal Castillo MD [address] [place] [address] Scheduled Procedures Name Priority Associated Diagnoses Date/Ti me ARTHROPLASTY, SHOULDER, TOTAL Left rotator cuff tear arthropathy 03/27/2024 14:25 EST documented as of this encounter Procedures Procedure Name Priority Date/Time Associated Diagnosis Comments MA MAMMO SCREENING DIGITAL 09/13/2012 14:00 EDT documented in this encounter Results * MA MAMMO SCREENING DIGITAL (09/13/2012 14:00 EDT) Anatomical Region Laterality Modality Other 09/13/2012 14:0 0 EDT 09/14/2012 11:26 EDT Narrative 09/14/2012 11:26 EDT Comparison has been made to previous images. Bilateral Breast Findings: (Routine digital views with CAD) The breasts are almost [...] will contact your patient directly. Procedure Note 09/14/2012 Comparison has been made to previous images. Bilateral Breast Findings: (Routine digital views with CAD) The breasts are almost [...] on filedocumented in this encounter Care Teams Hose Coupling Joiner Relationship Specialty Start Date End Date Barbara Conway, STUDENT ASSISTANT [address] [place] [address] PCP - General 08/14/08 07/22/13 documented as of this encounter
--- OUTSIDE RECORDS SUMMARY | 2024-03-18 22:13 | XMS_ITS | Encounter Summary ---
Author Organization [facility] Address [address] [place] [address] Care Team Providers Care Bindery Machine Setter Name Role Phone Yoel Reyes Primary Care Provider [phone] Barbara Conway NP Primary Care Provider [phone] Encounter Details Date Type Department Care Team (Late st Contact Info) Description 07/30/2013 Orders Only [facility] General Surgery - [facility] [address] [place], [place] [phone] Arnel Oliva MD [address] [facility], [address] [place] [address] Social History Tobacco Use Types [...] Info) Description 03/27/2024 14:25 EST Hospital Encounter [facility] OR [address] [place], [place] [phone] Vishal Castillo MD [address] [place] [phone] 03/27/2024 14:25 EST - 03/27/2024 17:55 EST Surgery [facility] OR [address] [place], [place] [address] Vishal Castillo MD [address] [place] [phone] Left Reverse Total Shoulder Arthroplasty [72317 (CPT??)] 04/08/2024 15:30 EST Post-op Visit [facility] Hand & Upper Extremity Program - [address] [address] Vishal Castillo MD [address] [place] [phone] Scheduled Procedures Name Priority Associated Diagnoses Date/Ti me ARTHROPLASTY, SHOULDER, TOTAL Left rotator cuff tear arthropathy 03/27/2024 14:25 EST documented as of this encounter Procedures Procedure Name Priority Date/Time Associated Diagnosis Comments COLONOSCOPY PROCEDURE Routine 07/24/2013 documented in this encounter Results * COLONOSCOPY (07/24/2013) Colonoscopy [facility] Comment:f/u colo in 3 yrs Colonoscopy, External [facility] Anatomical Region Laterality Modality Endoscopy 07/24/2013 us Historical Provider GI PROCEDURE ORDERABLES F inal Result documented in this encounter Visit Diagnoses Not on filedocumented in this encounter Care Teams Bindery Machine Setter Relationship Specialty Start Date End Date Yoel Reyes PA [address] [place] [address] PCP - General 07/24/13 08/18/13 Barbara Conway NP [address] [place] [address] PCP - General 08/19/13 documented as of this encounter
--- OUTSIDE RECORDS SUMMARY | 2024-03-18 22:13 | XMS_ITS | Encounter Summary ---
Author Organization [facility] Address [address] [place] [address] Care Team Providers Care Optical Brightener Maker Helper Name Role Phone Barbara Conway Myla AGRICULTURE TECHNICIAN Primary Care Provider [phone] Encounter Details Date Type Department Care Team (Latest Contact Info) Description 09/20/2013 6:56 EDT - 09/20/2013 23:59 EDT Hospital Encounter [address] [address] Backup, VELMA Kwong [address] [place], [place] [address] Discharge Disposition: Home or Self Care Social [...] documented in this encounter Discharge Diagnoses Diagnosis V72.5 RADIOLOGICAL EXAM NEC[ICD-9-CM] documented in this encounter Medications at Time [...] or Self [facility] documented in this encounter Plan of Treatment Upcoming Encounters Date Type Department Care Team (Latest Contact Info) Description 03/27/2024 14:25 EST Hospital Encounter [facility] OR [address] [place] [address] [phone] Vishal Castillo MD [address] [place] [phone] 03/27/2024 14:25 EST - 03/27/2024 17:55 EST Surgery [facility] OR [address] [place] [address] [phone] Vishal Castillo MD [address] [place] [phone] Left Reverse Total Shoulder Arthroplasty [[id number] (CPT??)] 04/08/2024 15:30 EST Post-op Visit [facility] Hand & Upper Extremity Program - [address] [place] [address] Vishal Castillo MD [address] [place] [phone] Scheduled Procedures Name Priority Associated Diagnoses Date/Ti me ARTHROPLASTY, SHOULDER, TOTAL Left rotator cuff tear arthropathy 03/27/2024 14:25 EST documented as of this encounter Procedures Procedure Name Priority Date/Time Associated Diagnosis Comments MA 2D/3D BILATERAL CLOVIS ROUTINE SCREENING MAMMO 09/22/2014 11:37 EDT documented in this encounter Results * MA 2D/3D BILATERAL CLOVIS ROUTINE SCREENING MAMMO (09/22/2014 11:37 EDT) Anatomical Region Laterality Modality Other 09/22/2014 11:3 7 EDT 09/22/2014 16:24 EDT Narrative 09/22/2014 16:24 EDT Comparison has been made to previous images. Bilateral Breast Findings: (Routine digital views with CAD and 3D images with Tomosynthesis) The breasts are almost entirely fat (less [...] and agree with the findings. Procedure Note Duglas Gee MD - 09/22/2014 Comparison has been made to previous images. Bilateral Breast Findings: (Routine digital views with CAD and 3D images with Tomosynthesis) The breasts are almost entirely fat (less [...] above interpretation and agree with the findings. us Barbara Conway NP IMG MAMMOGRAPHY ORDERABLES Fi nal Result documented in this encounter Visit Diagnoses Not on filedocumented in this encounter Care Teams Optical Brightener Maker Helper Relationship Specialty Start Date End Date Barbara Conway, AGRICULTURE TECHNICIAN [address] [place] [address] PCP - General 08/19/13 documented as of this encounter
--- OUTSIDE RECORDS SUMMARY | 2024-03-18 22:13 | XMS_ITS | Encounter Summary ---
Author Organization [facility] Address [address] [place] [address] Care Team Providers Care Live In Caregiver Name Role Phone Barbara Conway DOUGH MIXER Primary Care Provider [phone] Reason for Referral * Consult (Routine/Next Available) - Closed Specialty Diagnoses / Procedures Referred By Maryuri sarmiento Referred To Contact Diagnoses Total knee replacement status Kami Husain PA-C Phone: tel: fax: Referral ID Status Reason Start Date Expiration Date V isits Requested Visits Authorized [id number] Closed Specialty Services Required 01/06/2013 1 1 Question Answer Snf Referral - Assessment: Pain Control Skilling Nursing Referral - Treatment: Venipuncture - see below PT/INR orders Snf Referral - Wound Care: (Please include care and frequency.) Post Surgical Physical therapy is needed for: Evaluation, Safety, Gait/Mobility Assessment and Training, Equipment Recommendations, Weight Bearing, Post Surgical, Strength Training/Exercise Program Comments Skin/Wound Care: Sterile dressing change, if drainage present and Wound assessment by Home Health. Clarita out by VNA POD 10-12 Bathing: May shower 48 hours after clarita are removed. Pending Results: Not applicable Symptoms to Call Your Doctor About: No bowel movement within 3 days of discharge Numbness in extremity Odor from incision Pain unrelieved by medication Poor circulation (skin cool to touch or blue) Redness, swelling or drainage from wound Shortness of breath Skin rash Temperature greater than 101 degrees F Follow-up Services Contacted at Discharge: Home health VNA nursing for PT/INR. Physical therapy for Total joint protocol. Health Risk and Disease Information: Not applicable Encounter Details Date Type Department Care Team (Latest Contact Info) Description 01/04/2013 8:53 EDT - 01/09/2013 13:52 EDT Hospital Encounter [facility] General Surgery Unit [address] [place] [address] Lilia Otto MD [address] [place] [phone] Traumatic arthropathy, lower leg (Primary Dx); Total knee replacement status; OA (osteoarthritis) of knee Discharge Disposition: Discharged to Other Facility Social History Tobacco Use Types Packs/Day Years [...] Sign Reading Time Taken Comments Blood Pressure 105/68 01/09/2013 0821 EDT Pulse 80 01/09/2013 0821 EDT Temperature 37.2 ??C (99 ??F) 01/09/2013 0555 EDT Respiratory Rate 16 01/09/2013 0555 EDT Oxygen Saturation 97% 01/09/2013 0555 EDT Inhaled Oxygen Concentration - - Weight 98.9 kg (218 lb) 01/04/20131999 EDT Height 165.1 cm (5' 5) 01/04/20131999 EDT Body Mass Index 36.28 01/04/20131999 EDT documented in this encounter Mental Status * Because of a physical, mental, or emotional condition, do you have serious difficulty concentrating, remembering, or making decisions? (5 years old or older) Answer Entry Date Author Yes 01/04/2013 20:00 EDT Christopher Elmore RN documented in this encounter Discharge Summaries * Laurel Serra MD - 01/04/2013 1357 EDT Discharge Summary Chief Complaint/Reason for Admission: Chronic Left knee pain/OA Admitted Via: DOSA Principal/Final Diagnosis: Left knee OA Principal Procedure: LTKA Date: 01/04/2013 Condition at Discharge: Good Assessment at Discharge: Vital signs: Patient Vitals for the past 12 hrs: BP Pulse Resp Temp SpO2 O2 Device 01/09/13 0821 105/68 mmHg 80 - - - - 01/09/13 0555 112/55 mmHg 83 16 37.2 ??C (99 ??F) 97 % Room air Hospital Course: 67 year old female patient admitted [facility] for elective LTKA. Patient elected spinal anesthesia. Pre operative pain protocol used. Hamilton catheter placed intraoperatively. Procedure without complications. Post operative pain well controlled with pain protocol. PT began POD #1 per protocol. Hamilton catheter removed POD #1. Pain well controlled and medically stable on POD#5 and was discharged to [facility]. Patient was placed on coumadin for DVT prophylaxis for 4 weeks post op with a target INR of 1.6-2.2. Patient reached an INR of 1.5 and was placed on 3 mg po qhs upon d/c from hospital. Last Lab Results at Discharge: BUN: Lab Results Component Value Date BUN 17 01/09/2013 Creatinine: Lab Results Component Value Date CREATININE 0.75 01/09/2013 CBC: Lab Results Component Value Date WBC 7.97 01/09/2013 RBC 3.57* 01/09/2013 HGB 9.2* 01/09/2013 HCT 27.8* 01/09/2013 MCV 78* 01/09/2013 MCH 25.7* 01/09/2013 MCHC 33.0 01/09/2013 PLT 292 01/09/2013 DIFFTYPE Automated 01/09/2013 Electrolytes: Lab Results Component Value Date NA 137 01/09/2013 K 4.1 01/09/2013 CL 98 01/09/2013 CO2 31 01/09/2013 HGB: Lab Results Component Value Date HGB 9.2* 01/09/2013 INR: Lab Results Component Value Date INR 1.8* 01/09/2013 INR 1.5* 01/08/2013 INR 1.5* 01/07/2013 PROTIME 21.2* 01/09/2013 PROTIME 16.9* 01/08/2013 PROTIME 17.6* 01/07/2013 Home Health [id number] Encounter: I certify that this patient is under my care and that I, or a Medicare authorized non-physician provider (DOUGH MIXER or PA) working with me, had a [id number] encounter with this patient on 01/06/13 that was in whole or in part related to the reason the patient needs home health care. The findings of thisencounter indicate that the patient requires correction or therapist services for the reasons listed below. jail services: - are required to train the patient/caregiver to manage the treatment regimen for this illness or condition - are required to provide treatments and care safely and effectively - are required for assessment/observation due to the potential for complications or exacerbation ofthe patient's condition Skilled therapist services: - are required because of the complexity of the therapy needed to treat the injury, illness or condition Additionally, the findings of this encounter support that the patient is homebound because: - the patient requires the assistance of a person or device to safely leave home - post-surgical restrictions or conditions limit the patient's ability to leave home - leaving home requires considerable and taxing effort due to a medical condition cc: Dr. Clarita Conway Discharge Summary Completed: 01/09/13 documented in this encounter Discharge Instructions * Discharge Instructions* Kami Husain PA - 01/06/2013 10:28 EDT Diet: Resume home diet Activity: Elevate affected extremity Exercises prescribed (see Physical Therapy booklet) No driving until cleared by physician Skin/Wound Care: Sterile dressing change, if drainage present and Wound assessment by Home Health [place] out POD#10-14 by VNA Bathing: May shower 48 hours after clarita are removed. Pending Results: Not applicable Symptoms to Call Your Doctor About: No bowel movement within 3 days of discharge Numbness in extremity Odor from incision Pain unrelieved by medication Poor circulation (skin cool to touch or blue) Redness, swelling or drainage from wound Shortness of breath Skin rash Temperature greater than 101 degrees F Appointments: See Dr. Clarita MD. As scheduled . Follow-up Services Contacted at Discharge: Home health VNA services nursing PT/INR drawn 2 days after discharge then weekly, call results to [phone]. VNA for PT at home. Please check pt/inr two times the first week and once per week thereafter while on coumadin and report back to AOS at [phone] 1.6-2.2; for 4 weeks post op for DVT prophylaxis after total joint Health Risk and Disease Information: Not applicable documented in this encounter Medications at Time [...] 17 g by mouth daily. 01/06/2013 0 scopolamine (TRANSDERM-SCOP) 1.[address] [...] 01/06/2013 0 documented as of this encounter Ordered Prescriptions Prescription Sig Dispense Quantity Refills Last Filled Start Date End Date ascorbic acid (VITAMIN C) 500 mg tablet Take 1 Tab by mouth at bedtime. 01/06/2013 warfarin (COUMADIN) 2 mg tabletIndications: deep vein thrombosis prevention Take 1.5 Tabs by mouth at bedtime. Indications: DEEP VEIN THROMBOSIS PREVENTION 40 Tab 1 01/08/2013 0 oxyCODONE (ROXICODONE) 5 mg immediate release tablet Take 1-3 Tabs by mouth every 4 hours as needed for Pain. 60 Tab 0 01/08/2013 0 magnesium hydroxide (MILK OF MAGNESIA) 400 mg/5 mL suspension Take 30 mL by mouth 2 times daily as needed for Other (constipation). 01/08/2013 0 bisacodyl (DULCOLAX) [address] 1 Suppository rectally daily as needed for Other (constipation). 01/08/2013 0 warfarin (COUMADIN) 2 mg tabletIndications: deep vein thrombosis prevention Take 1 Tab by mouth at bedtime. Indications: DEEP VEIN THROMBOSIS PREVENTION 40 Tab 1 01/06/2013 0 scopolamine (TRANSDERM-SCOP) 1.[address] 1 Patch onto the skin every 72 hours. 4 Patch 1 01/06/2013 0 PEG 3350-Electrolytes (MIRALAX) 17 gram packet Take 17 g by mouth daily. 01/06/2013 0 methocarbamol (ROBAXIN) 500 mg tablet Take 1-2 Tabs by mouth every 6 hours as needed (muscle spasms). 40 Tab 1 01/06/2013 0 HYDROmorphone (DILAUDID) 2 mg tablet Take 1-3 Tabs by mouth every 3 hours as needed for Pain. 80 Tab 0 01/06/2013 3 docusate sodium (COLACE) 100 mg capsule Take 2 Caps by mouth 2 times daily. 01/06/2013 0 documented in this encounter Discharge Disposition Disposition Code Departure Means Destination Discharged to Other Facility documented in this encounter Progress Notes * Yosef Pérez, PT - 01/09/2013 1129 EDT [facility] Physical Therapy Discontinue/Discharge Note Date of Service: 01/09/2013 Precautions: Total knee precautions, WBTT, activity as tolerate, ambulate with assistive device SUBJECTIVE: I am leaving today around 2:00 OBJECTIVE: Intervention Completed Today: Time/Treatment Duration: 1130 x 15 minutes Therapeutic exercise: Reinforced therapeutic exercises with patient and provided pt with cueing to facilitate improved technique/proper performance in order to optimize outcome. Active (A): X 10 reps Supine Ankle pumps Quad sets Gluteal Sets Passive knee extension x 1 minute in combination with quad sets Active Assisted (AA) x 10 reps Supine - all exercises very close to active but assist for techniqueand to improve quality of performance to maximize outcomes Hip abd/add Heel slides - assist of PT to increase ROM at knee and increase quality of exercise. Patient was also re-instructed in use of sheet to self assist with this exercise Straight leg raise ROM: Flexion: supine knee flexion 10-82 Therapeutic activity: patient has recently returned to bed after ambulation with nursing and bathroom use and declines this activity with PT today. She was very motivated for therapeutic exercises. Patient positioned in bed with knees in extension and heels floated with ice applied to knees at end of session. Team Communication: Discussed current level of mobility and recommendations with nursing for assistance with mobility and positioning outside of PT. Patient has been seen in physical therapy since 01/05/13 for Therapeutic exercises, Therapeutic activities and Gait training. In this reporting period 01/05/13 to 01/09/13 the patient has been seen by a physical therapist and physical therapist hearing aid assistant. Frequency: daily, evaluation 01/05/13, treatments 01/06, 01/07, 01/08 and 01/09. Intensity: 30 minutes per session. Duration: During this hospitalization. Please refer to the physical therapy notes for specifics on the patient's functional status and treatment sessions. Relevant objective findings: INTEGUMENTARY/ANTHROPOMETRIC CHARACTERISTICS: Knee with post op dressing with no drainage noted, radha incisional edema and ecchymosis RANGE OF MOTION AND JOINT INTEGRITY: Please refer above to Interventions Completed Today BALANCE, LOCOMOTION, AND GAIT: Per 01/08 treatment: Therapeutic Activity: Bed Mobility: pt performed supine -> sit with supervision assist and verbal cues for engagement of left quads to move LE across the bed. Pt performed sit->supine with supervision assist and verbal cues for sequencing and increased effort. Transfers: pt performed sit -> stand transfer from edge of bed, with supervision assist and verbal cues for hand placement/ safety Pt performed stand -> sit transfer to supervision Gait Training: Pt amb with rolling walker , ~45 feet, minimal contact assist with verbal cues to increased foot clearance on the right and increased stance time on the left SELF-CARE, HOME MANAGEMENT, WORK, AND LEISURE: See above for details of 01/08 treatment ASSESSMENT: Physical therapy services in this setting have been discontinued secondary to: Patient has been or will be discharged from the hospital Physical Therapy Diagnosis: This patient status post Left TKR presented with a PT diagnosis of decreased left LE ROM, decreased strength, and decreased functional balance impacting functional mobility with post operative pain. Physical Therapy Prognosis:progress has been steady but slow overall with limitations by nausea andpost operative discomfort. Given current deficits and need for high level of functioning for discharge to home it has been recommended that patient have short inpatient rehab stay to maximize level of function prior to fdc return to home. Gains have been made in all areas including decreasingassistance with activity, increased ROM and progression of activity, but as noted above they have been slower and ongoing skilled PT is recommended. Please see below for progress made toward goals, unmet goals will be discontinued given discharge from this setting. Patient is motivated and has good potential for ongoing steady gains. Now that nausea is improving I am optimistic with increased rate of gains with tolerance to activity. SHORT TERM GOALS TIME FRAME: 1-2 days The patient will be able to perform bed mobility with supervision assist demonstrating appropriate sequencing/motor planning. MET The patient will be able to perform bed to chair transfers with minimal contact assist while demonstrating an effective strategy for recovery of loss of balance, and proper hand placement with cues. MET The patient will be able to ambulate with minimal contact assist 20-50 feet with the least restrictive assistive device and the following gait technique: Heel contact and step to gait. MET The patient and/or caregiver will be able to recall and demonstrate precautions with cues. MET The patient will be able to perform therapeutic exercises 10 times active/active assist with verbalcues as needed for proper technique. MET The patient will increase knee flexion ROM by 5-10 degrees. MET WATCH PARTS GRINDER GOALS TIME FRAME: 3-7 days - all current and will be discontinued given discharge to rehab center today The patient will be able to perform bed mobility independently demonstrating appropriate sequencing/motor planning. The patient will be able to perform transfers with modified independence while demonstrating appropriate hand placement with assistive device use. The patient will be able to ambulate with modified independence 100-250 feet with the least restrictive assistive device with step through gait and heel contact, with most upright posture. The patient and/or caregiver will be able to recall and demonstrate precautions. The patient will be able to perform stairs with supervision assist with appropriate home set up andproper sequencing. The patient/caregiver will be aware of the recommendations provided and demonstrate an appropriate technique/understanding of the recommendations. The patient will be able to perform therapeutic exercises 10 times active with good technique with written copy of exercises. The patient will demonstrate knee flexion ROM 5-90 A/AA. PLAN: D/C Physical Therapy Recommended Discharge Destination: Sub-acute rehabilitation Recommended Discharge Services: Home health physical therapy Recommended Equipment Needs: Patient has all necesary equipment Other recommendations: Occupational Therapy consult in rehab center Pager: [phone] YOSEF PÉREZ, PT 01/09/2013 11:29 * Laurel Serra MD - 01/09/2013 1023 EDT Orthopedic Progress Note Admit Date: 01/04/2013 Hospital day: LOS: 5 days Date of Service: 01/09/2013 POD 5 Procedure: left total knee arthroplasty Chief Complaint: none Subjective: This patient has no complaints. Her pain is well tolerated. She has not cleared physical therapy and is expecting to go to a subacute rehabilitation center, hopefully today. She would prefer to go somewhere near [facility] so her family could visit easier. Current Medications: Yes, see MAR Review of Systems: Pertinent items are noted in Subjective/HPI Objective/Physical Exam: VS: Patient Vitals for the past 8 hrs: BP Pulse Resp Temp SpO2 O2 Device 01/09/13 0821 105/68 mmHg 80 - - - - 01/09/13 0555 112/55 mmHg 83 16 37.2 ??C (99 ??F) 97 % Room air Pain: Patient Vitals for the past 8 hrs: Numeric Pain Level (Scale 1-10) Asleep 01/09/13 0827 3 - 01/09/13 0441 0 Reassessed, sleeping comfortably, RR WNL. 01/09/13 0241 0 Reassessed, sleeping comfortably, RR WNL. Weight: No data found. Glucose Readings (last 8 readings): Recent Labs Basename 01/09/13 0759 01/08/13 2058 01/08/13 1659 01/08/13 1201 01/08/13 0658 01/07/13 2213 01/07/13 1659 01/07/13 1152 GLUCOSEFINGE 157* 92 120* 118* 164* 124* 136* 134* I&O: Intake/Output Summary (Last 24 hours) at 01/09/13 1023 Last data filed at 01/09/13 0836 Gross per 24 hour Intake 1000 ml Output 550 ml Net 450 ml General Appearance: alert, cooperative, no distress Heart: regular rate and rhythm Lungs: non labored breathing Extremities: extremities warm, atraumatic, no cyanosis or edema all extremities warm and well perfused Incision: healing well Sensation: grossly intact Is PICC or Central line present? No, PICC/Central line not present. Data Review: NA Labs: I have personally reviewed CBC: Lab Results Component Value Date WBC 7.97 01/09/2013 RBC 3.57* 01/09/2013 HGB 9.2* 01/09/2013 HCT 27.8* 01/09/2013 MCV 78* 01/09/2013 MCH 25.7* 01/09/2013 MCHC 33.0 01/09/2013 PLT 292 01/09/2013 NEUTROABS 5.44 01/09/2013 BMP: Lab Results Component Value Date NA 137 01/09/2013 K 4.1 01/09/2013 CL 98 01/09/2013 CO2 31 01/09/2013 BUN 17 01/09/2013 CREATININE 0.75 01/09/2013 GLUCOSEFINGE 157* 01/09/2013 CALCIUM 9.8 12/10/2012 LABALBU 4.0 12/10/2012 Coagulation: Lab Results Component Value Date PROTIME 21.2* 01/09/2013 INR 1.8* 01/09/2013 PTT 25 05/25/2005 Assessment/Problems/Plan: (update problem list daily as appropriate) Patient Active Problem List Diagnoses Date Noted ??? (H)Traumatic arthropathy, lower leg 01/04/2013 ??? (H)Total knee replacement status 01/04/2013 ??? (H)OA (osteoarthritis) of knee 01/04/2013 ??? Personal history of colonic polyps 04/29/2011 Discharge Plan: Subacute Rehab LAUREL SERRA MD 01/09/2013 10:23 * Arlen Mckinnon - 01/09/2013 0917 EDT 01/09/13 SOCIAL WORK: [facility]; she said she does not have a bed after all. I spoke w/Lashawn at [facility]; he does not have one either. I met w/the pt & updated her. We discussed options. Her next choice would be &. I called Allyson to let her know. Nikkywill check to see if she has any beds for today. If she does, then Dr. Dacosta would need to follow. PLAN: [facility]; possibly at & today if a bed is available. Should know soon. MARQUITA Rajan, #[phone] Allyson called me & can take the pt today at &. Nadeem will pick her up at 2pm. * Arlen Mckinnon - 01/08/2013 1543 EDT 01/08/13 SOCIAL WORK: Pt is POD#4 L/TKR. She is doing well w/PT & is stable for JOHNATHAN. [facility]; she said they are reviewing her & may be able to offer the pt a bed tomorrowafternoon. Still no decision as yet so I will need to finalize the plan in the am. [facility] & may be able to offer her a bed. They are verifying her insurance. I expect the pt will go to one of the [facility] tomorrow. Will finalize the plan in the am. Pt clarence re. PLAN: [facility]; will confirm the plan tomorrow. MARQUITA Rajan, #[phone] * Adriana Warner, PT - 01/08/2013 1320 EDT [facility] Physical Therapy Encounter Note Date of Service: 01/08/2013 SUBJECTIVE: Patient agreed to PT OBJECTIVE: Intervention completed today: Time/Treatment Duration: 1130 x 30 minutes Vital signs have been stable with interventions and were not monitored. Incision/involved limb: Left knee clean and dry Therapeutic Activity: Bed Mobility: pt performed supine -> sit with supervision assist and verbal cues for engagement of left quads to move LE across the bed. Pt performed sit->supine with supervision assist and verbal cues for sequencing and increased effort. Transfers: pt performed sit -> stand transfer from edge of bed, with supervision assist and verbal cues for hand placement/ safety Pt performed stand -> sit transfer to supervision Gait Training: Pt amb with rolling walker , ~45 feet, minimal contact assist with verbal cues to increased foot clearance on the right and increased stance time on the left Therapeutic exercise: Reinforced therapeutic exercises with patient and provided pt with cueing to facilitate improved technique/proper performance in order to optimize outcome. Active (A*): X 5-10 reps Supine Ankle pumps Quad sets Gluteal Sets Active Assisted (AA*) /Active (A) x 5-10 reps Supine Hip abd/add Heel slides Short arc quads ROM: Flexion: supine knee flexion 50 ; sitting knee flexion: 70 Ice: Pt provided and instructed in use Patient/Family Education: Topic: Learner: patient Method: verbal Barriers to Learning: none noted Outcome: verbalized understanding and returned demonstration Team Communication: Pt status discussed with nursing prior to and after treatment session ASSESSMENT: Moving slowly, limited by pain and nausea with mobility. Support d/c to [facility]. PLAN: Continue per plan of care Recommended Discharge Destination: Sub-acute rehabilitation Recommended Discharge Services: Physical therapy at rehabilitation facility Recommended Equipment Needs: Rolling walker Other recommendations: No other consults recommended at this time Pager: [phone] ADRIANA WARNER, JAIME 01/08/2013 13:20 * Kami Husain PA - 01/08/2013 0725 EDT POD#: 4 s/p RT TKA S: patient doing well; fells less groggy/foggy now that she is off the dilaudid; doing well on the oxycodone O: RT knee Mepilex; incision CDI and healing well; no drainage or s/sx of infection.Calves soft NT (-) Ghanshyam's B; Distal CMS intact; toes are warm and pink. ABD: soft NT, ND; (+) flatus; (-) BM Vitals: 01/08/13 0625 37 (98.6) -- 16 129/57 100 -- MB 09/16/13 2214 36.9 (98.4) -- 140/68 94 -- MB 01/07/13 1420 37.5 (99.5) -- 15 120/56 94 Labs: Glucose, Fingerstick 164 (H) Sodium 135 (L) mEq/L Hemoglobin 9.6 (L) gm/dl HCT 28.6 (L) % UOP: 450Cc (last shift); A: POD #4 s/p RT TKA Plan: 1) cont w/ PT per protocol 2) cont w/ coumadin for DVT prophylaxis: will continue with coumadin @ 3mg po qhs 3) await progress with PT to determine d/c disposition 4) current pain management:Oxycodone and robaxin 5) H&H stable 6) Electrolytes: WNL 7)Continue on Macrodantin on discharge for UTI prevention. 8) DM: on metformin once po intake improves and on SS 9) Discharge planning: awaiting JOHNATHAN placement DIANNA: Awaiting bed offer [facility] * Carol Gomez RN - 01/07/2013 1611 EDT Case Management Assessment Working Diagnosis/Presenting Problem: Left TKR with post-op n/v Living Arrangements: Resides with family in single story home with 4-5 steps to enter. Functional Status (psychosocial and physical): Independent , used cane for past 1 yr d/t knee pain.Owns walker, cane, shower chair and RTS. Social Supports: Daughter and her family live with pt. Daughter took 3 days off work to assist pt. Aunt Arelis can assist, but works. 2nd daughter lives local, on vacation currently. Son in [place] Existing Community Resources: None active Advanced Directives/DPOA: Yes on file Cultural/Spiritual Needs: Yes requested visit via screw driver operator line. Judaism Insurance/Financial Needs: Medicare, [employer] BC[employer], rx @ [facility] in [place]. Transportation Needs: Daughter to provide Patient Goals: [facility] Assessment and Discharge Care Plan: Referred to d/c specialist for JOHNATHAN placement. CM contact information provided. Carol Gomez RN, BSN, CM pgr [phone] * Chantal Cr Gisselle - 01/07/2013 1526 EDT SPIRITUAL CARE NOTE Patient: Aretha Garcia 01/07/2013 Location: [place] [address] Date of : 1945 Aretha Garcia who is listed as Judaism has received a visit from the Spiritual Care Department on 01/07/2013. VISIT INITIATED by Rounding Visit x Initial Visit by S.C. Department Referral from Patient / Family Follow-up visit x Referral from Treatment Team Time: 12:45 End of Life / Comfort Care / Hospice Urgent Request - Time: 2 Level of Visit UNAVAILABLE FOR VISIT Patient Discharged Patient sleeping Patient out of room Patient with Treatment Team ISSUES & INTERVENTIONS: x Listened to patient's story Concerned about life after Facilitated Yazdanism Needs / Rituals Conflicted or challenged belief system Prayer / [place] Isolated from episcopal community Anointing of the Sick Conflict between episcopal beliefs and treatment Communion Facilitated exploration of Guilt Confucianist Facilitated exploration of Hopelessness Naming Ceremony Facilitated identification of Emotions Facilitated exploration of meaning/purpose [place] and Prayers for the Dying Facilitated exploration of Discouragement Present at time of (w/ in 2 hrs) Facilitated Grief / Bereavement Work Consoled Family Encouraged focus on present moment Prayers for the Encouraged Self-care Contacted HECTOR Connected with Community Resources Family Support Provided Reading Materials Advocated for patient / family Relaxation through Music Celebrated with patient / family Led a Guided Meditation Consulted with interdisciplinary team Assisted with Advanced Directives Connected with Community Resources Facilitated exploration of Ethical Issues Clarified, confirmed, information Facilitated Decision Making Assisted with the Clarification of Goals SPIRITUAL ISSUE & ASSESSMENT: Pt doing well from her surgery but expecting to have pain for a while. She has family close to help her with her recovery. Has a deep savita as well for support. PLAN: No Follow up necessary - Needs met Continued Family Support Continued Support from Stonecutter Apprentice Hand following patient Make a Referral to Continued Support with Volunteer Visits Connect with Community Supports REASON for Follow up: Chantal Cr, Stonecutter Apprentice Hand Spiritual Care Department [phone], [phone] Spiritual Care is available 24 hours a day. Office hours are 0800 to 1700 Monday through Monday and 0830 to 1630 Monday and Monday. Interfaith and Rastafari chaplains are available 24 hours a day. For routine consults please call and leave a message with the Spiritual Care Office ([phone]) and patients will be seen within 24 hours. Forall emergent consults page the Taoism or Interfaith on-call Stonecutter Apprentice Hand through [facility] ([phone]). * Fide Hinojosa RN - 01/07/2013 1317 EDT Patient using IS with encouragement oob to chair with assist ambulated with PT. Patient in bed withcall light in reach states she has not had a bowel movement since Monday01/04/13. Call placed to Dr. Otto's office to get order for po laxative awaiting call back. * Arlen Mckinnon Maggy - 01/07/2013 1314 EDT 01/07/13 SOCIAL WORK CONTACT NOTE: I rec'd a referral from Jessica (RN CM) saying the pt needs JOHNATHAN. The pt is a 67 y/o, cognitively intactfemale who is S/P an elective L/TKR on 01/04/13; she is POD#3. She is WBAT LLE & she is working w/PT. Vw=751. No complex care needs. Ortho note says she will be stable for JOHNATHAN tomorrow. I met w/the pt today to discuss JOHNATHAN. She is from [place] so she prefers the [place] area. NHPpolicy was discussed; she signed it. She noted she was thinking she wanted to go to a rehab before she even came in. She prefers [facility], then [place] [facility]. She has Medicare & [place]. She needs only a short stay per Liza (PT). Liza said she will need an ambulance. PLAN: JOHNATHAN; bed search in progress. Ambulance & [facility] forms were placed in pt's chart. Arlen Mckinnon, SEARCH ENGINE MARKETING MANAGER, #[phone] * Miguel Mckenzie PA - 01/07/2013 0812 EDT POD#: 3 s/p LTKA S: Pt comfortable. Denies f/c/cp/sob/n/v/cough/lt headedness/dizziness/abd pain/diarr/dysuria +flatulence O: SCD's and cryouff are intact and working. Dressing cdi with no erythema or drainage. NV'ly intact LLE Calves soft NT (-) Ghanshyam's B; Distal CMS intact; toes are warm and pink. ABD: soft NT, ND; (+) flatus; (-) BM Vitals: vss afeb Labs: HCT: 28.5 INR: 1.5 UOP: 1100cc (last shift) A: POD # 3 s/p LTKA Plan: 1) cont w/ PT per protocol 2) cont w/ coumadin for DVT prophylaxis: will continue with coumadin @ 3 mg po qhs with INR @ 1.5 today 3) Disposition: patient was possible candidate for JOHNATHAN based on weak performance with physical therapy yesterday. SHe does have help at home and was cleared to go home today. She is requesting one more day in hospital so she can receive a few more sessions of PT to be better prepared to go home tomorrow. 4) current pain management: po dilaudid and tylenol 5) H&H stable 6) Electrolytes: WNL 7)Encourage IS Discharge planning:home w/ VNA DIANNA: tomorrow Miguel Mckenzie PA-C [facility] * Liza Romo, OSKAR - 01/07/2013 0922 EDT [facility] Physical Therapy Encounter Note Date of Service: 01/07/2013 SUBJECTIVE:im ok with going to rehab if you think i need it OBJECTIVE: Intervention completed today: Time/Treatment Duration: 1078-9809 Vital signs were monitored and were stable throughout physical therapy session. Incision/involved limb: Dressing CDI, edema noted surrounding knee Therapeutic Activity: Transfers: pt performed sit -> stand transfer from recliner, with min assist and verbal cues for hand placement/ safety, needing assist to lower LE to floor and assist to scoot to edge of chair, instructed pt in leg cradle method in attempt to increase independence however pt wasnot able to successfully perform this. Pt performed stand -> sit transfer to recliner, with min assist and verbal cues for hand placement/ safety, assist to manage LE during descent and while moving back into recliner. Gait Training: Pt amb with RW, ~20 feet, min assist with verbal cues to promote heel toe progression, step thru gait, increased weight bearing on surgical LE, lengthened stance time on surgical LE to prevent limping. Pt starts slow but able to gain some fluidity after a few feet, pt nauseated after 5 feet, able to continue some but then needing to turn around, pt dry heaving and at times trying to elicit vomiting with putting finger in throat. Therapeutic exercise: Reinforced therapeutic exercises with patient and provided pt with cueing to facilitate improved technique/proper performance in order to optimize outcome. Active (A*): X10 reps Supine Ankle pumps Quad sets Gluteal Sets Active Assisted (AA*)x10 reps Supine Hip abd/add Heel slides Short arc quads Straight leg raise Active Assistive (AA): X10 reps Seated LAQ's Knee flexion ROM: Flexion: 80 degrees Extension: -5 degrees Ice: Pt provided and instructed in use PM SESSION: SUBJECTIVE: Oh this is terrible, this nausea is bad, every time i get up OBJECTIVE: Intervention completed today: Time/Treatment Duration: 5555-1274 Vital signs were monitored and were stable throughout physical therapy session. Therapeutic Activity: Bed Mobility: Pt performed sit->supine with min assist and verbal cues for LE management, hand placement, bodypositioning and increased safety, R side of bed without bed features. Pt nauseated after walking and trying to move quickly to get to supine, instructed in slowed movements for increased safety and less pain. Transfers: pt performed sit -> stand transfer from recliner with min assist and verbal cues for hand placement/ safety, pt asking for assist to lower leg to floor, instructed pt to scoot out to edge and rest foot on floor, continues to ask for assistance to hold leg up and refusing to try techniques to increase independence. Pt performed stand -> sit transfer to bedside with min assist and verbal cues for hand placement/ safety, positioning and slowed pace, pt returned for ambulation with increase nausea and trying to move quickly to get to bedside. Pt corinna to use commode, again wanting assist for all LE mobility and whimpering when provided with instructions for how to support LE or moving to edge to allow foot to rest on floor. Pt refused to wipe herself in standing and waited until supine in the bed and then performed radha care Gait Training: Amb: with RW and supervision assist ~25 feet with verbal cues to promote heel toe progression, stepthru gait, increased hip flexion, knee extension mid stance and knee flexion at terminal stance, ptcontinues with slow limping gait pattern, able to tolerated slightly more weight bearing though is fearful and reluctant. At approx 5 feet leah again pt becomes nauseated. Stops several times in halldry heaving in blue bag and again several times sticks her finger in her through to try to elicit vomiting Therapeutic exercise:Reinforced therapeutic exercise and provided pt with cueing to facilitate improved technique/proper performance in order to optimize outcome. Active: X10 reps Supine Ankle pumps Quad sets Gluteal Sets Active Assisted/active: x10 reps Supine Hip abd/add Heel slides ER/IR Short arc quad Patient/Family Education: Topic: Activity pacing/Energy conservation Assistive device/technique Discharge planning Exercise Gait Safety Transfers Learner: patient Method: verbal Barriers to Learning: none noted Outcome: verbalized understanding Team Communication: Pt status discussed with nursing prior to and after treatment session ASSESSMENT: Pt making slow gains, tolerated some increased mobility though continues with nausea every time sheis standing. Awaiting JOHNATHAN transfer. PLAN: Continue per plan of care Recommended Discharge Destination: JOHNATHAN Recommended Discharge Services: JOHNATHAN Recommended Equipment Needs: Patient has all necesary equipment Other recommendations: No other consults recommended at this time Primary Therapist:Marilyn Rdz Pager: [phone] Liza Romo PTA 01/07/2013 7:34 * Liza Romo PTA - 01/06/2013 1412 EDT [facility] Physical Therapy Encounter Note Date of Service: 01/06/2013 SUBJECTIVE:I really want to try to get to the commode, the bed mendez is terrible OBJECTIVE: Intervention completed today: Time/Treatment Duration: 4049-3237 Vital signs were monitored and were stable throughout physical therapy session. Incision/involved limb: Dressing CDI with interventions Therapeutic Activity: Bed Mobility: pt performed supine -> sit with mod assist and verbal cues for LE management, upper body management and continued breathing with exertion, Pt unable to rise into sitting prior to moving LE to edge of bed and maintain sitting, thus pt performed log roll technique with assist for LE management and assist to rise into sitting, cueing for technique to get to edge of bed with feet resting on floor, pt using R side of bed without bed features. Transfers: pt performed sit -> stand transfer from bedside and commode, with mins assist and verbal cues for hand placement/ safety as well as LE placement to facilitate rising Pt performed stand -> sit transfer to commode and recliner, with min assist and verbal cues for hand placement/ safety as well as LE advancement prior to sitting Pt very concerned with her mobility and fearful of going home and having stairs to do, reassured ptthat it is only the second time she was been on her feet, discussed option of JOHNATHAN prior to home to which she was receptive as she fears her dtr and aunt wont be able to help her enough. Explained that we would see how she does tomorrow before we decide. Encouraged Two more times walking with nursing staff today and two more times performing therex in bed as she is able, Pt agreeable to all. Gait Training: Pt amb with RW, ~12 feet, min assist with verbal cues to promote slow increase of weight bearing onsurgical LE, equal stance time on BLE, continued breathing with exertion of activity. Pt reports increasing nausea, she feels its related to weight bearing. Discussed this with pt, told her that she also hasn't been upright other than when she is stepping on that LE, thus its more likely positionaland she should try to stay sitting up in the recliner for awhile today to see if this helps. Therapeutic exercise: Reinforced therapeutic exercises with patient and provided pt with cueing to facilitate improved technique/proper performance in order to optimize outcome. Active (A*): X10 reps Supine Ankle pumps Quad sets Gluteal Sets Active Assisted (AA*)x10 reps Supine Hip abd/add Heel slides Short arc quads ROM: Flexion: 70 degrees Extension: -5 degrees Ice: Pt provided and instructed in use Patient/Family Education: Topic: Activity pacing/Energy conservation Assistive device/technique Bed mobility Discharge planning Exercise Gait Precautions/protocol Safety Transfers Learner: patient Method: verbal Barriers to Learning: none noted Outcome: verbalized understanding Team Communication: Pt status discussed with nursing prior to and after treatment session ASSESSMENT: Pt progressing, second time up on her feet, very worried about returning home, may benefit from SARstay prior to home, will make decision after AM PT session and let CM/SW know if the plan changes from home to JOHNATHAN. PLAN: Continue per plan of care Recommended Discharge Destination: Home with caregiver Recommended Discharge Services: Home health physical therapy Recommended Equipment Needs: Patient has all necesary equipment Other recommendations: No other consults recommended at this time Primary Therapist:Diana Carr Pager: [phone] Liza Romo PTA 01/06/2013 14:12 * Kami Husain PA - 01/06/2013 0900 EDT POD#: 2 s/p RT TKA S: patient doing well; good pain control; she is w/o complaints this am; but she does report some nausea with motion and has + h/o motion sickness O: RT knee dressing changed today to a Mepilex dressing; incision CDI and healing well; no drainageor s/sx of infection.Calves soft NT (-) Ghanshyam's B; Distal CMS intact; toes are warm and pink. ABD: soft NT, ND; (+) flatus; (-) BM Vitals: 01/06/13 0513 36.7 (98.1) -- 136/71 95 -- LB 01/05/13 2041 37.3 (99.1) -- 98/52 96 -- LB 01/05/13 1356 37.3 (99.1) -- 16 108/59 96 -- NFC 01/05/13 0559 36.4 (97.5) 73 -- 124/69 96 Labs: Pro Time 18.7 (H) secs I.N.R. 1.6 (H) Ratio Creatinine 0.62 mg/dl GFR, Calculated >60 ml/min/1.73m2 Hemoglobin 9.5 (L) gm/dl HCT 28.4 (L) % UOP: 1350Cc (last shift); A: POD #2 s/p RT TKA Plan: 1) cont w/ PT per protocol 2) cont w/ coumadin for DVT prophylaxis: will change with coumadin @ 2 mg po qhs with INR @ 1.6 today 3) await progress with PT to determine d/c disposition 4) current pain management:dilaudid and robaxin 5) H&H stable 6) Electrolytes: WNL 7)Continue on Macrodantin on discharge for UTI prevention. 8) DM: on metformin once po intake improves and on SS 9) will add scopolamine patch for help with nausea Discharge planning: home w/ VNA DIANNA: Monday?; once cleared by PT VELMA Zeng-C [facility] * Lilia Otto MD - 01/05/2013 0932 EDT POD#: 1 s/p RT TKA S: patient doing well; good pain control; +FNB still working O: RT knee: dressing intact with some mild saturation SCD's and cryouff are intact and working Calves soft NT (-) Ghanshyam's B; Distal CMS intact; toes are warm and pink. ABD: soft NT, ND; (+) flatus; (-) BM Vitals: 01/05/13 0559 36.4 (97.5) 73 -- 124/69 96 -- MO 01/04/131999 -- -- -- -- -- 98.884 kg (218 lb) MO 01/04/13 1953 36.5 (97.7) -- 17 119/65 97 Labs:Glucose, Screening 216 (H)--on SS and metformin Hemoglobin 10.4 (L) gm/dl HCT 31.2 (L) % Pro Time 13.5 (H) secs I.N.R. 1.2 (H) Ratio UOP: 1650Cc (last shift); krish d/c'd A: POD #1 s/p RT TKA Plan: 1) cont w/ PT per protocol 2) cont w/ coumadin for DVT prophylaxis: will change with coumadin @ 4 mg po qhs with INR @ 1.2 today 3) await progress with PT to determine d/c disposition 4) current pain management:dilaudid and robaxin 5) H&H stable 6) Electrolytes: WNL 7)dressing change in am with PA; nursing instructed to reinforce dressing as needed 8) DM: on metformin once po intake improves and on SS Discharge planning:home w/ VNA vs. Placement DIANNA: Monday? Monday?; once cleared by PT VELMA Zeng-C [facility] Patient seen and examined, and I agree with above. Looks and feels well Is chronically anemic pre-op, no anemia symptoms at this time. Continue on Macrodantin on discharge for UTI prevention. Dicussed importance of this with patient too and eventually closing fistula. In future. Mello Otto MD * Katlin Love - 01/05/2013 0817 EDT [facility] Physical Therapy Initial Evaluation Note Date of Service: 01/05/2013 Reason for Referral: Evaluate and treat Precautions: Total knee precautions, WBTT, activity as tolerate, ambulate with assistive device SUBJECTIVE: Does not use upstairs of house, can stay all on main floor. Previous outpatient PT for Left knee strengthening, was using a cane in right hand prior to admission. Daughter and Aunt to stay with her upon d/c. History of backpain, spends a lot of time in recliner at home because hard to get out of bed. Pain: Location:left knee (posterior aspect) Intensity:5/10 (at present), 3/10 (at best), not rated/10 (at worst) Frequency: constant Quality: ache Aggravating factors: Mobility and ROM Alleviating factors: Rest, medication, ice OBJECTIVE: Patient Profile: Patient is a 67 y.o. female admitted on 01/04/2013 secondary to *Left Total Knee Replacement. The patient lives at [address] [place] [address]. Home environment Lives: Alone Caregiver Support: Aunt and daughter to stay with her upon d/c Equipment Available: Rolling walker, Standard walker, Raised toilet seat and Shower chair/tub bench Home Environment: House Home Layout: Multi-level. Entry Stairs: 4 to 5 stairs with rails Interior Stairs: can stay on first level Bedroom: Downstairs Bathroom: Downstairs Entry Stairs: 4 to 5 with rails Prior Level of Function: Independent Services prior to admission: Outpatient therapy Work/Leisure: Retired Medical/Surgical History: Current: Patient Active Problem List Diagnoses ??? Personal history of colonic polyps ??? Traumatic arthropathy, lower leg ??? Total knee replacement status ??? OA (osteoarthritis) of knee Past: No past medical history on file. No past surgical history on file. Medications: Medications reviewed Arousal, Attention, and Cognition: Orientation: Alert Oriented to person, place, and time Cardiopulmonary: Vital Signs: Activity Heart rate (bpm) Blood Pressure (mmHg) Respiratory rate (breaths/min) Oxygen Sat/ Fractions of inspired Oxygen SPO2/FIO2 % Pre During 70 98% On room air Post Integumentary/Anthropometric Characteristics: Palpation/Observation: Skin: skin intact, incision not evaluated due to intact dressing. Dressing C/D/I Edema:left knee Posture: unable to attain erect stance with walker, flexed fwd at hips/trunk Range of Motion and Joint Integrity: Active Range of Motion: Within normal limits except as noted Upper Quarter: Left Upper Extremity: Right Upper Extremity: Cervical Spine: NE Lower Quarter: Left Lower Extremity: lacking 10 knee extension, attains 45 flexion in sitting Right Lower Extremity: Lumbar Spine: N/E Muscle Performance: Strength: Formal resistive muscle testing was not performed due to pt's nausea Upper Quarter: Left Upper Extremity: grossly 4/5 Right Upper Extremity: grossly 4/5 Cervical Spine: N/E Lower Quarter: Left Lower Extremity:at least 3/5 at hip, less than 3/5 knee extension, knee flexion, 5/5 left ankle Right Lower Extremity: Lumbar Spine: N/E Sensation, Reflexes, and Nerve Integrity: Light Touch Sensation: Upper Quarter: Intact C2-T1 Lower Quarter: Diminished: numbness along anterior surface of thigh and knee (femoral nerve block) Neuromotor Function/Development: No problems noted Balance, Locomotion, and Gait: Balance: Needs UE support to attain and maintain stance Locomotion: Not evaluated as wheelchair mobility does not apply to this patient. Gait: Assistive device/distance/assist/deviations: rolling walker, stand pivot to chair (5 steps), minimal assist of 1, WBAT L LE,flexed fwd posture Self-Care, Home Management, Work, and Leisure: Mobility evaluation as follows: Rolling: N/E Supine to sit: HOB elevated @20 degrees, side rail available, pt exited to the left side. Minimal contact assist with left LE. Sit to supine: pt sitting in recliner chair bedside --N/E Sit to stand: minimal contact assist of 1 provided with verbal cues for hand placement and joint protection techniques Stand to sit: minimal contact assist of 1 with verbal cues for hand placement and joint protection techniques Bed to chair: minimal contact assist of 1 with rolling walker, verbal cues for sequencing Chair to bed: N/E Informed Consent: The patient consented to the physical therapy evaluation. The patient agrees to and understands the physical therapy treatment plan and goals. Interventions Completed Today: Physical Therapy today at:10 Examination:15 minutes Intervention: 30 minutes Intervention included: Therapeutic exercises: bilateral lower extremity therapeutic exercises The patient was instructed in and performed exercises below. Written copy of TKR booklet provided to patient. Instructed patient in all precautions and indications Supine: 10 active repetitions Ankle pumps Quadricep sets Gluteal sets Supine: 10 AA repetitions, assist with all on technique and to increase ROM Hip flexion/knee flexion Sitting: positioned in flexion but not able to participate in repetitions due to nausea, attained 45 flexion gravity assisted Gentle assisted knee flexion Gait training: Rolling walker adjusted to appropriate height and weight bearing as tolerated statusand fdc use of an assistive device reviewed. Verbal cues for sequencing and upright posture provided. Pt was not able to attain erect posture, UE overly flexed at elbows. Lowered walker height after standing so that it can be tested next attempt to see if trunk extension improves. Patient/Family Education: Topic: Bed mobility Discharge planning Equipment use Exercise Gait Home program Positioning Precautions/protocol Role of therapy Safety Transfers Learner: patient Method: verbal, handout and demonstration Barriers to Learning: none noted Outcome: requires assist, needs practice and verbalized understanding Team Communication: Discussed current mobility status with nursing for assistance outside of PT session. ASSESSMENT: Upper Quarter Screen: Positive findings do not have an impact on the patient's function and requireno monitoring, treatment, or detailed examination. Given new use of assistive device this patient has been instructed in proper use of UE during mobility and prevention of overuse injuries as well assigns to watch for. Physical Therapy Diagnosis: This patient status post Left TKR presented with a PT diagnosis of decreased left LE ROM, decreased strength, and decreased functional balance impacting functional mobility with post operative pain. Physical Therapy Prognosis: Aretha tolerated initiation of therapeutic exercise and mobilty today. Ianticipate that she will make steady gains per clinical pathway and that she will have good functional outcome upon discharge. She is concerned that her back pain may limit out of bed transfers. I anticipate pt will be able to return home with family members staying with her for assist and home health services within one to three days. Skilled physical therapy indicated for therapeutic exercise, therapeutic activity and gait training to maximize functional independence and fdc outcomes. Her pain will be limiting factors to progress. Her nausea limited out of bed activities this session. SHORT TERM GOALS TIME FRAME: 1-2 days ?? The patient will be able to perform bed mobility with supervision assist demonstrating appropriate sequencing/motor planning. ?? The patient will be able to perform bed to chair transfers with minimal contact assist while demonstrating an effective strategy for recovery of loss of balance, and proper hand placement with cues. ?? The patient will be able to ambulate with minimal contact assist 20-50 feet with the least restrictive assistive device and the following gait technique: Heel contact and step to gait. ?? The patient and/or caregiver will be able to recall and demonstrate precautions with cues. ?? The patient will be able to perform therapeutic exercises 10 times active/active assist with verbal cues as needed for proper technique. ?? The patient will increase knee flexion ROM by 5-10 degrees. [facility]PC GOALS TIME FRAME: 3-7 days ?? The patient will be able to perform bed mobility independently demonstrating appropriate sequencing/motor planning. ?? The patient will be able to perform transfers with modified independence while demonstrating appropriate hand placement with assistive device use. ?? The patient will be able to ambulate with modified independence 100-250 feet with the least restrictive assistive device with step through gait and heel contact, with most upright posture. ?? The patient and/or caregiver will be able to recall and demonstrate precautions. ?? The patient will be able to perform stairs with supervision assist with appropriate home set up and proper sequencing. ?? The patient/caregiver will be aware of the recommendations provided and demonstrate an appropriate technique/understanding of the recommendations. ?? The patient will be able to perform therapeutic exercises 10 times active with good technique with written copy of exercises. ?? The patient will demonstrate knee flexion ROM 5-90 A/AA. PLAN: Treatment/Intervention: Physical therapy will be provided by physical therapist and/or physical therapist hearing aid assistant when medically appropriate. Frequency: Twice a day, Monday through Monday and one time a day, Monday and Monday during hospitalization Intensity: 30-45 minutes Duration: During hospitalization Interventions may include:Therapeutic exercises, Therapeutic activities and Gait training Patient/family education: Discharge planning, Equipment, Family training as appropriate, Precautions, Recommendations, Role of physical therapy/rehabilitation, Safety Further Data: stairs, Recommended Discharge Destination: Home with caregiver Recommended Discharge Services: Home health physical therapy Recommended Equipment Needs: Patient has all necesary equipment Other recommendations: No other consults recommended at this time Pager: [phone] KATLIN LOVE, PT, 01/05/2013, 8:54 * Marti Elmore RN - 01/05/2013 0612 EDT Pt krish removed, DTV 1215 * Nikki Reid RN - 12/21/2012 0937 EDT Aretha Garcia has been instructed as follows regarding medication administration for the day of the scheduled procedure. Date of Surgery: 01/04/2013 Instructions for Taking Medications Day of Surgery Medication Last Dose Hold DOS Take DOS atorvastatin (LIPITOR) 40 mg tablet @ HS ibuprofen (MOTRIN) 600 mg tablet 12/28/2012 warfarin (COUMADIN) 5 mg tablet @ HS atenolol (TENORMIN) 50 mg tablet yes aspirin 81 mg EC tablet yes Calcium-Cholecalciferol, D3, (CALCIUM 600 + D,3,) 600-200 mg-unit Cap 12/28/2012 docusate sodium (COLACE) 100 mg capsule yes lisinopril (PRINIVIL, ZESTRIL) 40 mg tablet yes metformin (GLUCOPHAGE) 1,000 mg tablet yes nitrofurantoin (MACRODANTIN) 100 mg capsule yes omeprazole (PRILOSEC) 40 mg capsule yes multivitamin (DAILY VITAMIN) per tablet 12/28/2012 [place]-3 Fatty Acids-Vitamin E (FISH OIL) 1,000 mg Cap 12/28/2012 BETA-CAROTENE,A, W-C & E (ANTI-OXIDANT ORAL) 12/28/2012 documented in this encounter H&P Notes * FORESTRY AID, SCAN 2 - 01/15/2013 1128 EDT * Lilia Otto MD - 01/04/2013 1012 EDT The preoperative history and physical which was performed within 30 days of this procedure has been reviewed and the clinically appropriate elements of the physical examination have been repeated. There are no changes to the documented history and physical or if so such changes are documented below LILIA OTTO MD 01/04/2013 10:12 documented in this encounter Procedure Notes * FORESTRY AID, SCAN 2 - 01/15/2013 1128 EDTAssociated Order(s): IMPLANT RECORD - SCANNED * FORESTRY AID, SCAN 2 - 01/15/2013 1128 EDTAssociated Order(s): ECG REPORT - SCANNED * FORESTRY AID, SCAN 2 - 12/13/2012 1316 EDTAssociated Order(s): ORDERS - SCANNED documented in this encounter Nursing Notes * FORESTRY AID, SCAN 2 - 01/15/2013 1128 EDT documented in this encounter OR Notes * OR PreOp - FORESTRY AID, SCAN 2 - 01/17/2013 0628 EDT * OR PreOp - FORESTRY AID, SCAN 2 - 01/15/2013 1128 EDT * OR Surgeon - Lilia Otto MD - 01/05/2013 0718 EDT OPERATIVE REPORT SERVICE DATE: 01/04/2013 IMPLANTS: Triathlon posterior stabilized femur, size 4, PS left; primary tibial baseplate Triathlonsize 4; and Triathlon X3 tibial-bearing insert, PS, size 4, 11 mm thickness; and tobramycin bone cement. IV FLUIDS: Lactated Ringer infusion 1400 mL. ESTIMATED URINE OUTPUT: 200 mL through Hamilton catheter. ESTIMATED BLOOD LOSS: 50 mL. COUNTS: Correct. DRAINS: None. COMPLICATIONS: None. ANESTHESIA: Spinal. PREOPERATIVE DIAGNOSIS: Left knee severe osteoarthrosis. POSTOPERATIVE DIAGNOSIS: Left knee severe osteoarthrosis. PROCEDURE: Left total knee arthroplasty with patelloplasty. SURGEON: Lilia Otto MD NUTS AND BOLTS ASSEMBLER: Miguel Mckenzie PA-C INDICATIONS: This female with progressive left knee pain, disability, dysfunction, limitations in activities of daily living and ambulation with a significant limp for many years of conservative carenow having failed adequate conservative care with medication, attempts at weight loss, strengthening and therapy, intraarticular injection, occasional cane assistive device with limited walking ability due to pain, varus deformity and x-ray findings with severe varus arthrosis, joint space [id number] narrowing, and bony spurs, especially medially with relatively little patellar area pain and occasional fusions elected for operative intervention. NARRATIVE: After being carefully identified and seen preoperatively by the anesthesia service and al, the patient was brought to the operating room. Preoperative IV antibiotics were given in an appropriate time. Anesthesia was obtained by the anesthesia staff. A well-padded tourniquet was placed onthe upper thigh. After the leg was prepped and draped, a time-out was performed for patient, site and procedure. After exsanguinating the leg, the tourniquet was inflated. A longitudinal incision wasmade centered over the patella through skin and subcu to the retinaculum. A medial parapatellar retinacular incision was made and patella carefully everted. The patellar cartilage was assessed to dete rmine whether patelloplasty or patella replacement was required. Then spurs were removed from the tibia and femur and central canals determined and drilled. The femoral alignment was made at 6 degrees on the knee. A 8 mm cut was taken from the distal aspect of the femur using the guides and then sizing of the femur was performed at this point. Sizing was determined finding the most appropriate size without notching and then an equivalent sized 4-in-1 cutting guide was then placed. The anterior,anterior chamfer, posterior, and posterior chamfer cuts were made. The box cuts were made appropriately with an osteotome and saw and the trial femur fit excellently and nicely. Attention was then turned to the tibia. A posterior retractor was now placed and joined the medial and lateral retractors, which were used throughout in order to protect soft tissue neurovascular structures as well as tendinous structures which were all well protected throughout. With the tibial intramedullary alignment guide placed, 6 mm was taken off the medial side of the tibia. Using the jig,the cut was carefully made to protect soft tissue structures and just remove bone, which was well removed. I was pleased with the cut and then the appropriately sized trials were placed and then taken through range of motion. The patella tracked nicely and the rotation of the tibia was marked and then later punched through the guide at the appropriate rotation in order to set the keel. Thorough washing was performed with removal of all loose bony and chondral elements and soft tissueelements. Thorough drying was performed and the final implants were then cemented in place with appropriate technique. The tibia was implanted first with cement and the femur was then cemented in place. Patelloplasty was done removing the spurs from the patella, but there were only grade 2 changes on the patella centrally. Excess cement was removed. Then a trial reduction was performed and the cement allowed to harden with the leg in extension. Once the cement was fully hardened, any excess cement chips were removed. The range of motion was felt to be excellent and the stability was excellent. At this point, trial liner was removed and thorough irrigation performed again deeply. All loose cement, soft tissue, and chondral and bony debris were again thoroughly removed. Final drying was done and the final liner was placed in this case, 11 mm thickness liner. Again excellent stability was n oted, good tracking of the patella and excellent alignment. I was very pleased and final irrigationwas performed deeply. A mixture of fentanyl, ketamine, ropivacaine, and saline was carefully placedin the soft tissue and capsule. The deep layer was closed with Vicryl suture in interrupted fashion. Patella again tracked nicely with excellent motion after the closure of this layer. Irrigation wasagain performed in the subcu layer and the subcu and subcuticular layers closed with Monocryl and then clarita were used to close the skin. A sterile compression dressing was placed. Tourniquet was released and all digits pinked up well on the lower extremity. There were no complications. Venodyneswere placed on this leg, as they had been placed on the contralateral leg prior to the case. A Hamilton catheter had been placed atraumatically by the nursing staff in the operative suite. Counts were correct. Stable. DISPOSITION: Recovery. No complications. Unless otherwise noted, there were no complications, no blood loss, no cultures obtained, no specimens removed, and no drains retained. Lilia Otto MD 01 56 PM / Lilia Otto MD rn Confirmation: [id number] Dictation ID: [id number] * Anesthesia Procedure Notes - FORESTRY AID, SCAN 2 - 01/04/2013 1638 EDT * Anesthesia Procedure Notes - FORESTRY AID, SCAN 2 - 01/04/2013 1422 EDT * Anesthesia Preprocedure Evaluation - FORESTRY AID, SCAN 2 - 01/04/2013 1105 EDT documented in this encounter Miscellaneous Notes * Scanned Note-Null - FORESTRY AID, SCAN 2 - 01/15/2013 1128 EDT * Scanned Note-Null - FORESTRY AID, SCAN 2 - 01/15/2013 1128 EDT * Scanned Note-Null - FORESTRY AID, SCAN 2 - 01/10/2013 0930 EDT * Plan of Care - Patrica Parker RN - 01/09/2013 1356 EDT Problem: DISCHARGE PLANNING Goal: Patient???s Continuum Of Care Needs Are Met Data: Order to discharge patient to rehab facility. POD # 5 s/p left total knee replacement. VSS onroom air. Patient c/o pain 3/10 on numeric scale. A&O x 3. Ambulating with contact guard assistance with front wheel walker. Tolerating regular diet/ PO fluids with no excessive n/v. Dressing on knee CDI. CSMT intact. Voiding octavia colored urine. LBM 01/09. Action: Medicated with Oxycodone/Robaxin prior to discharge. Called report to Cindy at [facility]. Educated patient on discharge to rehab facility and other questions regarding discharge. Handed rehab packet to patient. Response: Patient verbalized understanding with all questions answered. Left unit in wheelchair with unit PHOTOCOPYING MACHINE OPERATOR, belongings and voucher. Plan to be picked up at [facility] lobby by bandar. * Plan of Care - Danielle Gan - 01/09/2013 0641 EDT Problem: ELIMINATION Goal: Assess Bowel Sounds, Flatus And Stools Data: Pt medicated with PRN bowel medications for constipation yesterday during day shift. Pt experienced several episodes of bowel incontinence at . Action: Provided pt with pericare and bed linen changes. Response: No more episodes of bowel incontinence during night. Will continue to monitor. Danielle Gan RN 01/09/2013 6:39 * Plan of Care - Fide Hinojosa RN - 01/08/2013 1300 EDT Problem: PAIN Goal: Patient???s Pain And Discomfort Are Adequately Managed Data: Patient's pain medication changed per her request. Patient c/o pain requested smallest dose of pain med. Action: Patient medicated for pain and muscle spasm. Response: Patient states pain being maintained at 3 up to 4 with movement will continue to monitor. Fide Hinojosa RN 01/08/2013 12:56 * Plan of Care - Fide Hinojosa RN - 01/08/2013 1255 EDT Problem: ELIMINATION Goal: Patient???s Usual Bowel Function Is Maintained Data: Patient received MOM on 01/07/13 in afternoon no results obtained. Patient states usual bowel pattern is daily. Patient with active bowel sounds passing flatus. Action: Patient up to commode with no results. Suppository given per rectum , fluids encouraged. Response: Patient continues passing flatus no stool. Will continue to monitor. Fide Hinojosa RN 01/08/2013 12:49 * Miscellaneous - FORESTRY AID, SCAN 2 - 01/08/2013 0856 EDT * Plan of Care - Francine Kohc RN - 01/08/2013 0213 EDT Problem: NAUSEA AND VOMITING Goal: Patient Will Experience Relief from Nausea and Vomiting Data: pt had episode of emesis after medication adminstration Action: assessed emesis, gave PRN Zofran Response: pt had no further episode of emesis Francine Koch RN 01/08/2013 2:06 * Plan of Care - Francine Koch RN - 01/06/2013 2301 EDT Problem: PAIN Goal: Patient???s Pain And Discomfort Are Adequately Managed Data: pt reported high level of pain after ambulating to bedside commode Action: gave pt PRN Dilaudid Response: pt able to rest after Dilaudid, pain levels decreased once in bed Francine Koch RN 01/06/2013 22:57 * Plan of Care - Kathy Dong, RN - 01/06/2013 1551 EDT Problem: NAUSEA AND VOMITING Goal: Patient Will Experience Relief from Nausea and Vomiting Outcome: Ongoing Data: Pt worked with PT today working on using the commode. Pt able to use commode but felt very nauseous while working with PT. Pt likes to be pre- medicated before working with PT/getting up. Left knee dressing changed to the mepilex, no drainaged since dressing change. Action: Administered 2mgs of Dialudid. Scopalamine patch ordered and administered. Pt assisted backto bed from sitting in the chair. Pt remains hesitant to get OOB. Discharge order received for possible discharge late Monday or Monday. Response: Pt comfortably laying in bed. VSS. Clustered care. Kathy Dong RN 01/06/2013 15:46 * Plan of Care - Marti Elmore RN - 01/06/2013 0416 EDT Problem: PAIN Goal: Patient???s Pain And Discomfort Are Adequately Managed Data: Pt reports 4/10 pain. Action: Applied ice pack, assisted pt to reposition, medicated (see MAR) Response: Pt reports pain tolerable at 2/10, resting comfortably, call dean in reach. Marti Childers RN 01/06/2013 4:14 * Anesthesia Post-Alexi - Sherman Stanton CRNA - 01/05/2013 1819 EDT Post Anesthesia Evaluation Date of Service: 01/05/2013 The patient has been evaluated and assessed. If present, post anesthetic events are documented below. The last set of recorded vital signs and pain rating were reviewed: ,Numeric Pain Level (Scale 1-10): 0 Procedure detail: Anesthesia Type: Spinal Level of Consciousness: Awake;Oriented Vital Signs: Stable Post Op Pain: Taking PO/IV pain meds with good effect;Good analgesia with nerve block/existing epidural Ambulatory Status: Bedrest Additional follow up needed: No Perioperative events: General Events: None SHERMAN STANTON CRNA 01/05/2013 18:19 * Plan of Care - Kathy Dong RN - 01/05/2013 1353 EDT Problem: NAUSEA AND VOMITING Goal: Patient Will Experience Relief from Nausea and Vomiting Outcome: Ongoing Data: Pt denying pain at the beginning of shift, stating that it was just a dull ache in the back of her knee. Pt having a small amount of clear/pink tinged drainage from knee. Pt worked with PT for the first time today. Pt felt a lot more pain when moving the left leg. Pt was a little discouraged after working with PT about how hard it was to move. Pt felt nauseous after working with PT. Pt voiding using the bedpan. Action: Administered scheduled medications. Changed bed pads multiple times due to drainage. PHOTOCOPYING MACHINE OPERATOR assisted pt in washing up. Administered Zofran IV for nausea along with prn Dilaudid for pain. Pt was concerned about dilaudid making her more nauseous. Assisted pt in moving from the chair back to the bed. The PA working with Dr. Otto made aware of drainage when she rounded. Response: Pt feeling better after Zofran and Dilaudid. VSS. Pt is currently sleeping. Will continueto monitor. Kathy Dong RN 01/05/2013 13:47 * Plan of Care - Marti Elmore RN - 01/05/2013 0842 EDT Problem: HOSPITAL ORIENTATION/SAFETY Goal: Oriented To Hospital Environment Data: Pt arrived to [facility] 3 s/p L TKA. A&Ox3, VSS, hamilton draining clear yellow urine. Pt reports 4/10 pain. Action: Oriented pt to unit and room; instructed in call dean use and bed controls; reviewed menu and how to order meals. Medicated for pain (see MAR), assisted pt to reposition and applied ice. Response: Pt verbalizes understanding and demonstrates ability to use call dean. Pt resting comfortably, call dean in reach. CTM * Brief Op Note - Miguel Mckenzie PA - 01/04/2013 1056 EDT Brief Post-Op Note Date of Surgery: 01/04/2013 Surgeon: Primitivo Otto MD Assistants: Miguel Mckenzie PA-C Pre-Op Diagnosis: Left Knee OA Post-Op Diagnosis: Same Procedure(s): LTKA Anesthesia Type: Spinal and IV Sedation Estimated Blood Loss: The estimated blood loss was less than 50 mL Fluids: Aretha Garcia received Crystalloids 1,400 mL of fluid replacement. Urine Output: 200ml Tourniquet time: 97 min Specimens/Cultures: None Drains/Packs: None Complications: none Disposition and Condition: Aretha Garcia was sent to PACU in Good condition. VELMA Bee 01/04/2013 10:56 * Scanned Note-Null - FORESTRY AID, SCAN 2 - 01/04/2013 0900 EDT * Scanned Note-Null - FORESTRY AID, SCAN 2 - 01/04/2013 09 EDT * Scanned Note-Null - FORESTRY AID, SCAN 2 - 01/04/2013 09 EDT documented in this encounter Plan of Treatment Upcoming Encounters Date Type Department Care Team (Latest Contact Info) Description 03/27/2024 14:25 EST Hospital Encounter [facility] [address] [place] [id number] Vishal Castillo MD [address] [place] [phone] 03/27/2024 14:25 EST - 03/27/2024 17:55 EST Surgery [facility] [address], [place] [id number] Vishal Castillo MD [address] [place] [phone] Left Reverse Total Shoulder Arthroplasty [80676 (CPT??)] 04/08/2024 15:30 EST Post-op Visit [facility]rem[facility] - [address] [id number] Vishal Castillo MD [address] [place] [phone] Pending Results Name Type Priority Associated Diagnoses Date /Time ELEVATED GLUCOSE Lab Routine 01/06/20 13 7:34 EDT Scheduled Orders Name Type Priority Associated Diagnoses Orde r Schedule ELEVATED GLUCOSE Lab Routine For medi cations that can be administered at any time during the hospitalization for visit such as immunizations. for 1 Occurrences starting 01/05/2013 Scheduled Procedures Name Priority Associated Diagnoses Date/Ti me ARTHROPLASTY, SHOULDER, TOTAL Left rotator cuff tear arthropathy 03/27/2024 14:25 EST Scheduled Referrals Name Type Priority Associated Diagnoses Orde r Schedule FROM CLINIC - CONSULT HOME HEALTH SERVICES Outpatient Referral Routine Total knee replacement status Ordered: 01/06/2013 documented as of this encounter Procedures Procedure Name Priority Date/Time Associated Diagnosis Comments IMPLANT RECORD - SCANNED 01/15/2013 11:28 EDT ECG REPORT - SCANNED 01/15/2013 11:28 EDT GLUCOSE, GLUCOMETER Routine 01/09/2013 1 2:15 EDT GLUCOSE, GLUCOMETER Routine 01/09/2013 7 :59 EDT DIFFERENTIAL Routine 01/09/2013 7:11 EDT PROTIME Routine 01/09/2013 7:11 EDT COMPLETE BLOOD COUNT Routine 01/09/2013 7:11 EDT COMPLETE BLOOD COUNT AND DIFFERENTIAL Routine 01/09/2013 7:11 EDT BUN Routine 01/09/2013 7:11 EDT GLUCOSE, SERUM Routine 01/09/2013 7:11 EDT CREATININE Routine 01/09/2013 7:11 EDT ELECTROLYTES Routine 01/09/2013 7:11 EDT GLUCOSE, GLUCOMETER Routine 01/08/2013 2 0:58 EDT GLUCOSE, GLUCOMETER Routine 01/08/2013 1 6:59 EDT GLUCOSE, GLUCOMETER Routine 01/08/2013 1 2:01 EDT DIFFERENTIAL Routine 01/08/2013 7:22 EDT PROTIME Routine 01/08/2013 7:22 EDT COMPLETE BLOOD COUNT Routine 01/08/2013 7:22 EDT COMPLETE BLOOD COUNT AND DIFFERENTIAL Routine 01/08/2013 7:22 EDT BUN Routine 01/08/2013 7:22 EDT GLUCOSE, SERUM Routine 01/08/2013 7:22 EDT CREATININE Routine 01/08/2013 7:22 EDT ELECTROLYTES Routine 01/08/2013 7:22 EDT GLUCOSE, GLUCOMETER Routine 01/08/2013 6 :58 EDT GLUCOSE, GLUCOMETER Routine 01/07/2013 2 2:13 EDT GLUCOSE, GLUCOMETER Routine 01/07/2013 1 6:59 EDT GLUCOSE, GLUCOMETER Routine 01/07/2013 1 1:52 EDT GLUCOSE, GLUCOMETER Routine 01/07/2013 7 :26 EDT DIFFERENTIAL Routine 01/07/2013 7:10 EDT PROTIME Routine 01/07/2013 7:10 EDT COMPLETE BLOOD COUNT Routine 01/07/2013 7:10 EDT COMPLETE BLOOD COUNT AND DIFFERENTIAL Routine 01/07/2013 7:10 EDT BUN Routine 01/07/2013 7:10 EDT GLUCOSE, SERUM Routine 01/07/2013 7:10 EDT CREATININE Routine 01/07/2013 7:10 EDT ELECTROLYTES Routine 01/07/2013 7:10 EDT GLUCOSE, GLUCOMETER Routine 01/06/2013 2 1:12 EDT GLUCOSE, GLUCOMETER Routine 01/06/2013 1 6:58 EDT GLUCOSE, GLUCOMETER Routine 01/06/2013 1 1:57 EDT GLUCOSE, GLUCOMETER Routine 01/06/2013 7 :15 EDT DIFFERENTIAL Routine 01/06/2013 6:18 EDT PROTIME Routine 01/06/2013 6:18 EDT COMPLETE BLOOD COUNT Routine 01/06/2013 6:18 EDT COMPLETE BLOOD COUNT AND DIFFERENTIAL Routine 01/06/2013 6:18 EDT BUN Routine 01/06/2013 6:18 EDT GLUCOSE, SERUM Routine 01/06/2013 6:18 EDT CREATININE Routine 01/06/2013 6:18 EDT ELECTROLYTES Routine 01/06/2013 6:18 EDT GLUCOSE, GLUCOMETER Routine 01/05/2013 2 0:57 EDT GLUCOSE, GLUCOMETER Routine 01/05/2013 1 7:23 EDT GLUCOSE, GLUCOMETER Routine 01/05/2013 1 1:48 EDT SCREENING GLUCOSE Routine 01/05/2013 7:3 4 EDT DIFFERENTIAL Routine 01/05/2013 7:34 EDT PROTIME Routine 01/05/2013 7:34 EDT COMPLETE BLOOD COUNT Routine 01/05/2013 7:34 EDT COMPLETE BLOOD COUNT AND DIFFERENTIAL Routine 01/05/2013 7:34 EDT BUN Routine 01/05/2013 7:34 EDT CREATININE Routine 01/05/2013 7:34 EDT ELECTROLYTES Routine 01/05/2013 7:34 EDT PROTIME STAT 01/04/2013 21:06 EDT GLUCOSE, GLUCOMETER Routine 01/04/2013 1 9:51 EDT GLUCOSE, GLUCOMETER Routine 01/04/2013 1 8:45 EDT KNEE 1 OR 2 VIEWS STAT 01/04/2013 13: 58 EDT GLUCOSE, GLUCOMETER Routine 01/04/2013 1 0:27 EDT ANESTHESIA NERVE BLOCK FEMORAL Routine 01/04/2013 7:30 EDT ORDERS - SCANNED 12/13/2012 13:1 6 EDT documented in this encounter Results * ECG REPORT - SCANNED (01/15/2013 11:28 EDT) 01/15/2013 11:2 8 EDT Narrative 01/15/2013 11:48 EDT Procedure Note FORESTRY AID, SCAN 2 - 01/15/2013 11:28 EDT us Scan 2 It Business Systems Analyst PROCEDURE/MINOR SURGICAL OR DERABLES Final Result * IMPLANT RECORD - SCANNED (01/15/2013 11:28 EDT) 01/15/2013 11:2 8 EDT Narrative 01/15/2013 11:48 EDT Procedure Note FORESTRY AID, SCAN 2 - 01/15/2013 11:28 EDT us Scan 2 It Business Systems Analyst PROCEDURE/MINOR SURGICAL OR DERABLES Final Result * (ABNORMAL) GLUCOSE, GLUCOMETER (01/09/2013 12:15 EDT) Glucose, Fingerstick 107(H) 70 - 100 mg/dl [facility] Combination Building Inspector ID [id number] [facility] Comment:Test Performed by [facility] 01/09/2013 12:1 5 EDT 01/09/2013 12:16 EDT us Lilia Otto MD CHEMISTRY & BLOOD GAS ORD ERABLES Final Result [facility] [address] [place] [address] * (ABNORMAL) GLUCOSE, GLUCOMETER (01/09/2013 7:59 EDT) Glucose, Fingerstick 157(H) 70 - 100 mg/dl [facility] Combination Building Inspector ID [id number] [facility] Comment:Test Performed by [facility] 01/09/2013 7:59 EDT 01/09/2013 8:03 EDT Lilia Otto MD CHEMISTRY & BLOOD GAS ORD ERABLES Final Result Performing Organization Address [facility] Co de Phone Number [facility] [address] [place] [address] * DIFFERENTIAL (01/09/2013 7:11 EDT) % Neutrophils 68.3 45.5 - 79.7 % [facility] % Lymphocytes 20.8 15.0 - 46.8 % [facility] % Monocytes 8.9 1.8 - 12.0 % [facility] % Eosinophils 1.4 0.6 - 6.9 % [facility] % Basophils 0.6 0.2 - 1.4 % [facility] ABS Neutrophils 5.44 2.20 - 8.85 K/cmm [facility] ABS Lymphs 1.66 1.09 - 3.30 K/cmm [facility] ABS Monocytes 0.71 0.1 - 0.8 K/cmm [facility] ABS Eosinophils 0.11 0.03 - 0.61 K/cmm [facility] ABS Basophils 0.05 0.01 - 0.11 K/cmm [facility] Type of Diff: Automated JOSE L WARR[facility] 01/09/2013 7:11 EDT 01/09/2013 7:28 EDT Miguel Mckenzie PA-C HEMATOLOGY & PF4 ORDERABLES Fi nal Result Performing Organization Address [facility] Co de Phone Number [facility] [address] [place] [address] * (ABNORMAL) HEMAGRAM (01/09/2013 7:11 EDT) WBC 7.97 4.0 - 12.4 K/cmm [facility] RBC 3.57(L) 3.86 - 5.04 M/cmm [facility] Hemoglobin 9.2(L) 11.6 - 15.2 gm/dl [facility] HCT 27.8(L) 34.9 - 44.4 % [facility] MCV 78(L) 81 - 98 fl [facility] MCH 25.7(L) 26.7 - 33.3 pg [facility] MCHC 33.0 32.1 - 35.9 gm/dl [facility] PLT 292 141 - 320 K/cmm [facility] RDW-CV 15.5(H) 11.7 - 14.6 % [facility] 01/09/2013 7:11 EDT 01/09/2013 7:28 EDT [facility] Magaly CARREON HEMATOLOGY & PF4 ORDERABLES Fi nal Result Performing Organization Address [facility] de Phone Number [facility] [address] [place] [address] * (ABNORMAL) PROTIME (01/09/2013 7:11 EDT) Pro Time 21.2(H) 9.5 - 13.1 secs [facility] I.N.R. 1.8(H) 0.9 - 1.1 Ratio [facility] Comment: Moderate Intensity Coumadin INR = 2.0-3.0 Adjustments in anticoagulant therapy dose should be based upon the INR and NOT the Pro Time. Blood specimen (specimen) 01/09/2013 7:11 EDT 01/09/2013 7:28 EDT [facility] Magaly CARREONSusanna HEMATOLOGY & PF4 ORDERABLES Fi nal Result Performing Organization Address [facility] de Phone Number [facility] [address] [place] [address] * (ABNORMAL) GLUCOSE, SERUM (01/09/2013 7:11 EDT) Glucose, Serum 140(H) 70 - 100 mg/dl [facility] Blood specimen (specimen) 01/09/2013 7:11 EDT 01/09/2013 7:28 EDT Miguel CARREON-C CHEMISTRY & BLOOD GAS ORDERABL ES Final Result Performing Organization Address [facility] de Phone Number [facility] [address] [place] [address] * CREATININE (01/09/2013 7:11 EDT) Creatinine 0.75 0.52 - 1.04 mg/dl [facility] GFR, Calculated >60 >60 ml/min/1.7 3m2 [facility] Blood specimen (specimen) 01/09/2013 7:11 EDT 01/09/2013 7:28 EDT Miguel CARREON-C CHEMISTRY & BLOOD GAS ORDERABL ES Final Result Performing Organization Address [facility] de Phone Number [facility] [address] [place] [address] * BUN (01/09/2013 7:11 EDT) BUN 17 10 - 26 mg/dl [facility] Blood specimen (specimen) 01/09/2013 7:11 EDT 01/09/2013 7:28 EDT [facility] Slade CARREON-C CHEMISTRY & BLOOD GAS ORDERABL ES Final Result Performing Organization Address [facility] de Phone Number [facility] [address] [place] [address] * ELECTROLYTES (01/09/2013 7:11 EDT) Sodium 137 136 - 145 mEq/L [facility] Potassium 4.1 3.5 - 5.0 mEq/L [facility] Chloride 98 96 - 110 mEq/L [facility] CO2 31 24 - 32 mEq/L [facility] Blood specimen (specimen) 01/09/2013 7:11 EDT 01/09/2013 7:28 EDT Miguel Mckenzie PA-C CHEMISTRY & BLOOD GAS ORDERABL ES Final Result Performing Organization Address [facility] de Phone Number [facility] [address] [place] [address] * GLUCOSE, GLUCOMETER (01/08/2013 20:58 EDT) Glucose, Fingerstick 92 70 - 100 mg/dl [facility] Combination Building Inspector ID [id number] [facility] Comment:Test Performed by [facility] [facility] 01/08/2013 20:5 8 EDT 01/08/2013 21:01 EDT Lilia Otto MD CHEMISTRY & BLOOD GAS ORD ERABLES Final Result Performing Organization Address [facility] de Phone Number [facility] [address] [place] [address] * (ABNORMAL) GLUCOSE, GLUCOMETER (01/08/2013 16:59 EDT) Glucose, Fingerstick 120(H) 70 - 100 mg/dl [facility] Combination Building Inspector ID [id number] [facility] Comment:Test Performed by [facility] [facility] 01/08/2013 16:5 9 EDT 01/08/2013 17:00 EDT Lilia Otto MD CHEMISTRY & BLOOD GAS ORD ERABLES Final Result Performing Organization Address [facility] de Phone Number [facility] [address] [place] [address] * (ABNORMAL) GLUCOSE, GLUCOMETER (01/08/2013 12:01 EDT) Glucose, Fingerstick 118(H) 70 - 100 mg/dl [facility] Combination Building Inspector ID [id number] [facility] Comment:Test Performed by [employer] [facility] 01/08/2013 12:0 1 EDT 01/08/2013 12:03 EDT Lilia Otto MD CHEMISTRY & BLOOD GAS ORD ERABLES Final Result Performing Organization Address [facility]/State/ZIP Co de Phone Number [facility] [address] [place] [address] * (ABNORMAL) DIFFERENTIAL (01/08/2013 7:22 EDT) % Neutrophils 73.3 45.5 - 79.7 % [facility] % Lymphocytes 16.7 15.0 - 46.8 % [facility] % Monocytes 9.2 1.8 - 12.0 % [facility] % Eosinophils 0.6 0.6 - 6.9 % [facility] % Basophils 0.2 0.2 - 1.4 % [facility] ABS Neutrophils 6.78 2.20 - 8.85 K/cmm [facility] ABS Lymphs 1.55 1.09 - 3.30 K/cmm [facility] ABS Monocytes 0.85(H) 0.1 - 0.8 K/cmm [facility] ABS Eosinophils 0.05 0.03 - 0.61 K/cmm [facility] ABS Basophils 0.02 0.01 - 0.11 K/cmm [facility] Type of Diff: Automated ELLITCH ER [facility] 01/08/2013 7:22 EDT 01/08/2013 7:32 EDT Miguel Mckenzie PA-C HEMATOLOGY & PF4 ORDERABLES Fi nal Result [facility] [address] [place] [address] * (ABNORMAL) HEMAGRAM (01/08/2013 7:22 EDT) Pathologist [facility] WBC 9.26 4.0 - 12.4 K/cmm [facility] RBC 3.68(L) 3.86 - 5.04 M/cmm [facility] Hemoglobin 9.6(L) 11.6 - 15.2 gm/dl [facility] HCT 28.6(L) 34.9 - 44.4 % [facility] MCV 78(L) 81 - 98 fl [facility] MCH 26.2(L) 26.7 - 33.3 pg [facility] MCHC 33.7 32.1 - 35.9 gm/dl [facility] PLT 247 141 - 320 K/cmm [facility] RDW-CV 15.6(H) 11.7 - 14.6 % [facility] 01/08/2013 7:22 EDT 01/08/2013 7:32 EDT Miguel Mckenzie PA-C HEMATOLOGY & PF4 ORDERABLES Fi nal Result Performing Organization Address [facility] de Phone Number [facility] [address] [place] [address] * (ABNORMAL) PROTIME (01/08/2013 7:22 EDT) Pro Time 16.9(H) 9.5 - 13.1 secs [facility] I.N.R. 1.5(H) 0.9 - 1.1 Ratio [facility] Comment: Moderate Intensity Coumadin INR = 2.0-3.0 Adjustments in anticoagulant therapy dose should be based upon the INR and NOT the Pro Time. Blood specimen (specimen) 01/08/2013 7:22 EDT 01/08/2013 7:32 EDT Miguel Mckenzie PA-C HEMATOLOGY & PF4 ORDERABLES Fi nal Result Performing Organization Address [facility] de Phone Number [facility] [address] [place] [address] * (ABNORMAL) GLUCOSE, SERUM (01/08/2013 7:22 EDT) Glucose, Serum 157(H) 70 - 100 mg/dl [facility] Blood specimen (specimen) 01/08/2013 7:22 EDT 01/08/2013 7:32 EDT Miguel Mckenzie PA-C CHEMISTRY & BLOOD GAS ORDERABL ES Final Result Performing Organization Address [facility] de Phone Number [facility] [address] [place] [address] * CREATININE (01/08/2013 7:22 EDT) [facility] Creatinine 0.79 0.52 - 1.04 mg/dl [facility] GFR, Calculated >60 >60 ml/min/1.7 3m2 [facility] Blood specimen (specimen) 01/08/2013 7:22 EDT 01/08/2013 7:32 EDT [facility] Slade CARREON-C CHEMISTRY & BLOOD GAS ORDERABL ES Final Result Performing Organization Address [facility] Co de Phone Number [facility] [address] [place] [address] * BUN (01/08/2013 7:22 EDT) [facility] BUN 20 10 - 26 mg/dl [facility] Blood specimen (specimen) 01/08/2013 7:22 EDT 01/08/2013 7:32 EDT [facility] Slade CARREON-C CHEMISTRY & BLOOD GAS ORDERABL ES Final Result Performing Organization Address [facility] de Phone Number [facility] [address] [place] [address] * (ABNORMAL) ELECTROLYTES (01/08/2013 7:22 EDT) [facility] Sodium 135(L) 136 - 145 mEq/L [facility] Potassium 4.2 3.5 - 5.0 mEq/L [facility] Chloride 97 96 - 110 mEq/L [facility] CO2 30 24 - 32 mEq/L [facility] Blood specimen (specimen) 01/08/2013 7:22 EDT 01/08/2013 7:32 EDT [facility] Slade CARREON-C CHEMISTRY & BLOOD GAS ORDERABL ES Final Result Performing Organization Address [facility] de Phone Number [facility] [address] [place] [address] * (ABNORMAL) GLUCOSE, GLUCOMETER (01/08/2013 6:58 EDT) Glucose, Fingerstick 164(H) 70 - 100 mg/dl [facility] Combination Building Inspector ID [id number] [facility] Comment:Test Performed by [employer] 01/08/2013 6:58 EDT 01/08/2013 7:01 EDT Lilia Otto MD CHEMISTRY & BLOOD GAS ORD ERABLES Final Result Performing Organization Address [facility] Co de Phone Number [facility] [address] [place] [address] * (ABNORMAL) GLUCOSE, GLUCOMETER (01/07/2013 22:13 EDT) Glucose, Fingerstick 124(H) 70 - 100 mg/dl [facility] Combination Building Inspector ID [id number] [facility] Comment:Test Performed by [employer] 01/07/2013 22:1 3 EDT 01/07/2013 22:18 EDT Lilia Otto MD CHEMISTRY & BLOOD GAS ORD ERABLES Final Result Performing Organization Address [facility] de Phone Number [facility] [address] [place] [address] * (ABNORMAL) GLUCOSE, GLUCOMETER (01/07/2013 16:59 EDT) Glucose, Fingerstick 136(H) 70 - 100 mg/dl [facility] Combination Building Inspector ID [id number] [facility] Comment:Test Performed by [employer] 01/07/2013 16:5 9 EDT 01/07/2013 17:01 EDT Lilia Otto MD CHEMISTRY & BLOOD GAS ORD ERABLES Final Result Performing Organization Address [facility] Co de Phone Number [facility] [address] [place] [address] * (ABNORMAL) GLUCOSE, GLUCOMETER (01/07/2013 11:52 EDT) Glucose, Fingerstick 134(H) 70 - 100 mg/dl [facility] Combination Building Inspector ID [id number] [facility] Comment:Test Performed by [employer] 01/07/2013 11:5 2 EDT 01/07/2013 11:53 EDT Lilia Otto MD CHEMISTRY & BLOOD GAS ORD ERABLES Final Result Performing Organization Address [facility] de Phone Number [facility] [address] [place] [address] * (ABNORMAL) GLUCOSE, GLUCOMETER (01/07/2013 7:26 EDT) Pathologist [facility] Glucose, Fingerstick 158(H) 70 - 100 mg/dl [facility] Combination Building Inspector ID [id number] [facility] Comment:[facility] [employer] 01/07/2013 7:26 EDT 01/07/2013 7:27 EDT Lilia Otto MD CHEMISTRY & BLOOD GAS ORD ERABLES Final Result Performing Organization Address [facility] de Phone Number [facility] [address] [place] [address] * (ABNORMAL) DIFFERENTIAL (01/07/2013 7:10 EDT) [facility] % Neutrophils 68.7 45.5 - 79.7 % [facility] % Lymphocytes 20.9 15.0 - 46.8 % [facility] % Monocytes 10.2 1.8 - 12.0 % [facility] % Eosinophils 0.1(L) 0.6 - 6.9 % [facility] % Basophils 0.1(L) 0.2 - 1.4 % [facility] ABS Neutrophils 6.24 2.20 - 8.85 K/cmm [facility] ABS Lymphs 1.90 1.09 - 3.30 K/cmm [facility] ABS Monocytes 0.93(H) 0.1 - 0.8 K/cmm [facility] ABS Eosinophils 0.01(L) 0.03 - 0.61 K/cmm [facility] ABS Basophils 0.01 0.01 - 0.11 K/cmm [facility] Type of Diff: Automated [facility] 01/07/2013 7:10 EDT 01/07/2013 7:26 EDT Miguel Mckenzie PA-C HEMATOLOGY & PF4 ORDERABLES Fi nal Result Performing Organization Address [facility] de Phone Number [facility] [address] [place] [address] * (ABNORMAL) HEMAGRAM (01/07/2013 7:10 EDT) WBC 9.09 4.0 - 12.4 K/cmm [facility] RBC 3.66(L) 3.86 - 5.04 M/cmm [facility] Hemoglobin 9.4(L) 11.6 - 15.2 gm/dl [facility] HCT 28.5(L) 34.9 - 44.4 % [facility] MCV 78(L) 81 - 98 fl [facility] MCH 25.7(L) 26.7 - 33.3 pg [facility] MCHC 33.0 32.1 - 35.9 gm/dl [facility] PLT 219 141 - 320 K/cmm [facility] RDW-CV 15.5(H) 11.7 - 14.6 % [facility] 01/07/2013 7:10 EDT 01/07/2013 7:26 EDT Miguel Mckenzie PA-C HEMATOLOGY & PF4 ORDERABLES Fi nal Result Performing Organization Address [facility] de Phone Number [facility] [address] [place] [address] * (ABNORMAL) PROTIME (01/07/2013 7:10 EDT) Pro Time 17.6(H) 9.5 - 13.1 secs [facility] Comment:Patient on Coumadin I.N.R. 1.5(H) 0.9 - 1.1 Ratio [facility] Comment: Moderate Intensity Coumadin INR = 2.0-3.0 Adjustments in anticoagulant therapy dose should be based upon the INR and NOT the Pro Time. Patient on Coumadin Blood specimen (specimen) 01/07/2013 7:10 EDT 01/07/2013 7:26 EDT Miguel Mckenzie PA-C HEMATOLOGY & PF4 ORDERABLES Fi nal Result Performing Organization Address [facility] Co de Phone Number [facility] [address] [place] [address] * (ABNORMAL) GLUCOSE, SERUM (01/07/2013 7:10 EDT) Glucose, Serum 136(H) 70 - 100 mg/dl [facility] Blood specimen (specimen) 01/07/2013 7:10 EDT 01/07/2013 7:26 EDT [facility] CHEMISTRY & BLOOD GAS ORDERABL ES Final Result Performing Organization Address [facility] de Phone Number [facility] [address] [place] [address] * CREATININE (01/07/2013 7:10 EDT) Creatinine 0.67 0.52 - 1.04 mg/dl [facility] GFR, Calculated >60 >60 ml/min/1.7 3m2 [facility] Blood specimen (specimen) 01/07/2013 7:10 EDT 01/07/2013 7:26 EDT [facility] Slade CAMERONC CHEMISTRY & BLOOD GAS ORDERABL ES Final Result Performing Organization Address [facility] de Phone Number [facility] [address] [place] [address] * BUN (01/07/2013 7:10 EDT) BUN 13 10 - 26 mg/dl [facility] Blood specimen (specimen) 01/07/2013 7:10 EDT 01/07/2013 7:26 EDT [facility] CHEMISTRY & BLOOD GAS ORDERABL ES Final Result Performing Organization Address [facility] de Phone Number [facility] [address] [place] [address] * ELECTROLYTES (01/07/2013 7:10 EDT) Sodium 136 136 - 145 mEq/L [facility] Potassium 4.0 3.5 - 5.0 mEq/L [facility] Chloride 98 96 - 110 mEq/L [facility] CO2 29 24 - 32 mEq/L [facility] Blood specimen (specimen) 01/07/2013 7:10 EDT 01/07/2013 7:26 EDT [facility] CHEMISTRY & BLOOD GAS ORDERABL ES Final Result Performing Organization Address [facility] de Phone Number [facility] [address] [place] [address] * (ABNORMAL) GLUCOSE, GLUCOMETER (01/06/2013 21:12 EDT) Glucose, Fingerstick 149(H) 70 - 100 mg/dl [facility] Combination Building Inspector ID [id number] [facility] Comment:Test Performed by [employer] [facility] 01/06/2013 21:1 2 EDT 01/06/2013 21:16 EDT Lilia Otto MD CHEMISTRY & BLOOD GAS ORD ERABLES Final Result Performing Organization Address [facility] Co de Phone Number [facility] [address] [place] [address] * (ABNORMAL) GLUCOSE, GLUCOMETER (01/06/2013 16:58 EDT) Glucose, Fingerstick 124(H) 70 - 100 mg/dl [facility] Combination Building Inspector ID [id number] [facility] Comment:Test Performed by [employer] [facility] 01/06/2013 16:5 8 EDT 01/06/2013 16:59 EDT Lilia Otto MD CHEMISTRY & BLOOD GAS ORD ERABLES Final Result Performing Organization Address [facility] Co de Phone Number [facility] [address] [place] [address] * (ABNORMAL) GLUCOSE, GLUCOMETER (01/06/2013 11:57 EDT) Glucose, Fingerstick 154(H) 70 - 100 mg/dl [facility] Combination Building Inspector ID [id number] [facility] Comment:Test Performed by [employer] [facility] 01/06/2013 11:5 7 EDT 01/06/2013 11:58 EDT Lilia Otto MD CHEMISTRY & BLOOD GAS ORD ERABLES Final Result Performing Organization Address [facility] de Phone Number [facility] [address] [place] [address] * (ABNORMAL) GLUCOSE, GLUCOMETER (01/06/2013 7:15 EDT) Glucose, Fingerstick 175(H) 70 - 100 mg/dl [facility] Combination Building Inspector ID [id number] [facility] Comment:Test Performed by [employer] [facility] 01/06/2013 7:15 EDT 01/06/2013 7:18 EDT Lilia Otto MD CHEMISTRY & BLOOD GAS ORD ERABLES Final Result Performing Organization Address [facility] Co de Phone Number [facility] [address] [place] [address] * (ABNORMAL) DIFFERENTIAL (01/06/2013 6:18 EDT) % Neutrophils 70.2 45.5 - 79.7 % [facility] % Lymphocytes 18.0 15.0 - 46.8 % [facility] % Monocytes 11.4 1.8 - 12.0 % [facility] % Eosinophils 0.1(L) 0.6 - 6.9 % [facility] % Basophils 0.3 0.2 - 1.4 % [facility] ABS Neutrophils 7.23 2.20 - 8.85 K/cmm [facility] ABS Lymphs 1.86 1.09 - 3.30 K/cmm [facility] ABS Monocytes 1.17(H) 0.1 - 0.8 K/cmm [facility] ABS Eosinophils 0.02(L) 0.03 - 0.61 K/cmm [facility] ABS Basophils 0.03 0.01 - 0.11 K/cmm [facility] Type of Diff: Automated JO[facility] L [facility] 01/06/2013 6:18 EDT 01/06/2013 6:45 EDT Miguel Mckenzie PA-C HEMATOLOGY & PF4 ORDERABLES Fi nal Result Performing Organization Address [facility] Co de Phone Number [facility] [address] [place] [address] * (ABNORMAL) HEMAGRAM (01/06/2013 6:18 EDT) WBC 10.30 4.0 - 12.4 K/cmm [facility] RBC 3.65(L) 3.86 - 5.04 M/cmm [facility] Hemoglobin 9.5(L) 11.6 - 15.2 gm/dl [facility] HCT 28.4(L) 34.9 - 44.4 % [facility] MCV 78(L) 81 - 98 fl [facility] MCH 26.0(L) 26.7 - 33.3 pg [facility] MCHC 33.4 32.1 - 35.9 gm/dl [facility] PLT 209 141 - 320 K/cmm [facility] RDW-CV 15.6(H) 11.7 - 14.6 % [facility] 01/06/2013 6:18 EDT 01/06/2013 6:45 EDT Miguel Mckenzie PA-C HEMATOLOGY & PF4 ORDERABLES Fi nal Result Performing Organization Address [facility]/ZIP Co de Phone Number [facility] [address] [place] [address] * (ABNORMAL) PROTIME (01/06/2013 6:18 EDT) Pro Time 18.7(H) 9.5 - 13.1 secs [facility] I.N.R. 1.6(H) 0.9 - 1.1 Ratio [facility] Comment: Moderate Intensity Coumadin INR = 2.0-3.0 Adjustments in anticoagulant therapy dose should be based upon the INR and NOT the Pro Time. Blood specimen (specimen) 01/06/2013 6:18 EDT 01/06/2013 6:45 EDT Miguel CAMERONC HEMATOLOGY & PF4 ORDERABLES Fi nal Result Performing Organization Address [facility] de Phone Number [facility] [address] [place] [address] * (ABNORMAL) GLUCOSE, SERUM (01/06/2013 6:18 EDT) Glucose, Serum 148(H) 70 - 100 mg/dl [facility] Blood specimen (specimen) 01/06/2013 6:18 EDT 01/06/2013 6:45 EDT [facility] CHEMISTRY & BLOOD GAS ORDERABL ES Final Result Performing Organization Address [facility] de Phone Number [facility] [address] [place] [address] * CREATININE (01/06/2013 6:18 EDT) Creatinine 0.62 0.52 - 1.04 mg/dl [facility] GFR, Calculated >60 >60 ml/min/1.7 3m2 [facility] Blood specimen (specimen) 01/06/2013 6:18 EDT 01/06/2013 6:45 EDT Miguelmarj CAMERONC CHEMISTRY & BLOOD GAS ORDERABL ES Final Result Performing Organization Address [facility] Co de Phone Number [facility] [address] [place] [address] * BUN (01/06/2013 6:18 EDT) BUN 12 10 - 26 mg/dl [facility] Blood specimen (specimen) 01/06/2013 6:18 EDT 01/06/2013 6:45 EDT Miguel Mckenzie PA-C CHEMISTRY & BLOOD GAS ORDERABL ES Final Result Performing Organization Address [facility] Co de Phone Number [facility] [address] [place] [address] * ELECTROLYTES (01/06/2013 6:18 EDT) Sodium 136 136 - 145 mEq/L [facility] Potassium 4.0 3.5 - 5.0 mEq/L [facility] Chloride 102 96 - 110 mEq/L [facility] CO2 28 24 - 32 mEq/L [facility] Blood specimen (specimen) 01/06/2013 6:18 EDT 01/06/2013 6:45 EDT Miguel Mckenzie PA-C CHEMISTRY & BLOOD GAS ORDERABL ES Final Result Performing Organization Address [facility] de Phone Number [facility] [address] [place] [address] * (ABNORMAL) GLUCOSE, GLUCOMETER (01/05/2013 20:57 EDT) Glucose, Fingerstick 165(H) 70 - 100 mg/dl [facility] Combination Building Inspector ID [id number] [facility] Comment:Test Performed by [facility] 01/05/2013 20:5 7 EDT 01/05/2013 21:00 EDT Lilia Otto MD CHEMISTRY & BLOOD GAS ORD ERABLES Final Result Performing Organization Address [facility] Co de Phone Number [facility] [address] [place] [address] * (ABNORMAL) GLUCOSE, GLUCOMETER (01/05/2013 17:23 EDT) Glucose, Fingerstick 139(H) 70 - 100 mg/dl [facility] Combination Building Inspector ID [id number] [facility] Comment:Test Performed by [facility] 01/05/2013 17:2 3 EDT 01/05/2013 17:24 EDT Lilia Otto MD CHEMISTRY & BLOOD GAS ORD ERABLES Final Result Performing Organization Address [facility] Co de Phone Number [facility] [address] [place] [address] * (ABNORMAL) GLUCOSE, GLUCOMETER (01/05/2013 11:48 EDT) Glucose, Fingerstick 217(H) 70 - 100 mg/dl [facility] Combination Building Inspector ID [id number] [facility] Comment:Test [facility] 01/05/2013 11:4 8 EDT 01/05/2013 11:49 EDT Lilia Otto MD CHEMISTRY & BLOOD GAS ORD ERABLES Final Result Performing Organization Address [facility] Co de Phone Number [facility] [address] [place] [address] * (ABNORMAL) DIFFERENTIAL (01/05/2013 7:34 EDT) % Neutrophils 85.9(H) 45.5 - 79.7 % [facility] % Lymphocytes 8.9(L) 15.0 - 46.8 % [facility] % Monocytes 5.0 1.8 - 12.0 % [facility] % Eosinophils 0.0(L) 0.6 - 6.9 % [facility] % Basophils 0.2 0.2 - 1.4 % [facility] ABS Neutrophils 10.51(H) 2.20 - 8.85 K/cmm [facility] Lymphs 1.09 1.09 - 3.30 K/cmm [facility] Monocytes 0.61 0.1 - 0.8 K/cmm [facility] ABS Eosinophils 0.00(L) 0.03 - 0.61 K/cmm [facility] ABS Basophils 0.03 0.01 - 0.11 K/cmm [facility] Type of Diff: Automated [facility] 01/05/2013 7:34 EDT 01/05/2013 7:41 EDT [facility] Slade Mckenzie PA-C HEMATOLOGY & PF4 ORDERABLES Fi nal Result Performing Organization Address City/[facility]/ZIP Co de Phone Number [facility] [address] [place] [address] * (ABNORMAL) HEMAGRAM (01/05/2013 7:34 EDT) WBC 12.23 4.0 - 12.4 K/cmm [facility] RBC 3.99 3.86 - 5.04 M/cmm [facility] Hemoglobin 10.4(L) 11.6 - 15.2 gm/dl [facility] HCT 31.2(L) 34.9 - 44.4 % [facility] MCV 78(L) 81 - 98 fl [facility] MCH 26.0(L) 26.7 - 33.3 pg [facility] MCHC 33.3 32.1 - 35.9 gm/dl [facility] PLT 229 141 - 320 K/cmm [facility] RDW-CV 15.6(H) 11.7 - 14.6 % [facility] 01/05/2013 7:34 EDT 01/05/2013 7:41 EDT Miguel Mckenzie PA-C HEMATOLOGY & PF4 ORDERABLES Fi nal Result Performing Organization Address City/[facility]/ZIP Co de Phone Number [facility] [address] [place] [address] * (ABNORMAL) PROTIME (01/05/2013 7:34 EDT) Pro Time 13.5(H) 9.5 - 13.1 secs [facility] Comment:Patient on Coumadin I.N.R. 1.2(H) 0.9 - 1.1 Ratio [facility] Comment: Moderate Intensity Coumadin INR = 2.0-3.0 Adjustments in anticoagulant therapy dose should be based upon the INR and NOT the Pro Time. Patient on Coumadin Blood specimen (specimen) 01/05/2013 7:34 EDT 01/05/2013 7:41 EDT Miguelmarj CARREON-C HEMATOLOGY & PF4 ORDERABLES Fi nal Result Performing Organization Address [facility] de Phone Number [facility] [address] [place] [address] * CREATININE (01/05/2013 7:34 EDT) Creatinine 0.61 0.52 - 1.04 mg/dl [facility] Comment:Slight hemolysis GFR, Calculated >60 >60 ml/min/1.7 3m2 [facility] Blood specimen (specimen) 01/05/2013 7:34 EDT 01/05/2013 7:41 EDT [facility] CHEMISTRY & BLOOD GAS ORDERABL ES Final Result Performing Organization Address [facility] Phone Number [facility] [address] [place] [address] * BUN (01/05/2013 7:34 EDT) BUN 13 10 - 26 mg/dl [facility] Comment: Slight hemolysis Results may be affected due to hemolysis. Blood specimen (specimen) 01/05/2013 7:34 EDT 01/05/2013 7:41 EDT Miguel Slade CARREON-C CHEMISTRY & BLOOD GAS ORDERABL ES Final Result Performing Organization Address [facility] de Phone Number [facility] [address] [place] [address] * ELECTROLYTES (01/05/2013 7:34 EDT) Sodium 137 136 - 145 mEq/L [facility] Comment:Slight hemolysis Potassium 4.3 3.5 - 5.0 mEq/L [facility] Comment: Slight hemolysis Hemolysis may elevate potassium result. Chloride 102 96 - 110 mEq/L [facility] Comment:Slight hemolysis CO2 25 24 - 32 mEq/L [facility] Comment:Slight hemolysis Blood specimen (specimen) 01/05/2013 7:34 EDT 01/05/2013 7:41 EDT Miguel CAMERONC CHEMISTRY & BLOOD GAS ORDERABL ES Final Result Performing Organization Address [facility] de Phone Number [facility] [address] [place] [address] * (ABNORMAL) SCREENING GLUCOSE (01/05/2013 7:34 EDT) Glucose, Screening 216(H) 70 - 100 mg/dl [facility] Comment: Slight hemolysis Results may be affected due to hemolysis. Blood specimen (specimen) 01/05/2013 7:34 EDT 01/05/2013 7:41 EDT Miguel Mckenzie PA-C CHEMISTRY & BLOOD GAS ORDERABL ES Final Result Performing Organization Address [facility] Phone Number [facility] [address] [place] [address] * PROTIME (01/04/2013 21:06 EDT) Pro Time 11.4 9.5 - 13.1 secs [facility] Comment:Patient on Coumadin I.N.R. 1.0 0.9 - 1.1 Ratio [facility] Comment: Moderate Intensity Coumadin INR = 2.0-3.0 Adjustments in anticoagulant therapy dose should be based upon the INR and NOT the Pro Time. Patient on Coumadin Blood specimen (specimen) 01/04/2013 21:06 EDT 01/04/2013 21:13 EDT Lilia Otto MD HEMATOLOGY & PF4 ORDERABL ES Final Result Performing Organization Address [facility] de Phone Number [facility] [address] [place] [address] * (ABNORMAL) GLUCOSE, GLUCOMETER (01/04/2013 19:51 EDT) Glucose, Fingerstick 148(H) 70 - 100 mg/dl [facility] Combination Building Inspector ID [id number] [facility] Comment:[facility] 01/04/2013 19:5 1 EDT 01/04/2013 19:56 EDT Lilia Otto MD CHEMISTRY & BLOOD GAS ORD ERABLES Final Result Performing Organization Address [facility] Co de Phone Number [facility] [address] [place] [address] * (ABNORMAL) GLUCOSE, GLUCOMETER (01/04/2013 18:45 EDT) Glucose, Fingerstick 145(H) 70 - 100 mg/dl [facility] Combination Building Inspector ID [id number] [facility] Comment:Test Performed by [facility] 01/04/2013 18:4 5 EDT 01/04/2013 18:46 EDT Lilia Otto MD CHEMISTRY & BLOOD GAS ORD ERABLES Final Result Performing Organization Address [facility] Co de Phone Number [facility] [address] [place] [address] * KNEE 1 OR 2 VIEWS (01/04/2013 13:58 EDT) Anatomical Region Laterality Modality Other 01/04/2013 13:5 8 EDT 01/04/2013 14:44 EDT Narrative 01/04/2013 14:44 EDT KNEE 1 OR 2 VIEWS ??01/04/2013 1:58 PM Signs and Symptoms/Comments: ??Left knee OA S/P TKA ??Routine post op for no count R/O FB Comparison: Left knee radiographs dated 07/14/11 Funnies: AP and lateral views of the left knee demonstrates interval total arthroplasty. Hardware appears in good position without evidence of failure or loosening. No fracture is seen. Alignment is anatomic. Intra-articular and subcutaneous air is present consistent with recent surgery. Surgical skin clarita are seen anterior to the knee. No unexpected radiopaque foreign bodies are seen. I have personally reviewed the images and the above interpretation and agree with the findings. Procedure Note Cristo Wheatley MD - 01/04/2013 KNEE 1 OR 2 VIEWS 01/04/2013 1:58 PM Signs and Symptoms/Comments: Left knee OA S/P TKA Routine post op for no count R/O FB Comparison: Left knee radiographs dated 07/14/11 Funnies: AP and lateral views of the left knee demonstrates interval total arthroplasty. Hardware appears in good position without evidence of failure or loosening. No fracture is seen. Alignment is anatomic. Intra-articular and subcutaneous air is present consistent with recent surgery. Surgical skin clarita are seen anterior to the knee. No unexpected radiopaque foreign bodies are seen. I have personally reviewed the images and the above interpretation and agree with the findings. Lilia Otto MD IMG DIAGNOSTIC IMAGING OR DERABLES Final Result * (ABNORMAL) GLUCOSE, GLUCOMETER (01/04/2013 10:27 EDT) Glucose, Fingerstick 133(H) 70 - 100 mg/dl [facility] Combination Building Inspector ID [id number] [facility] Comment:Test Performed by [facility] 01/04/2013 10:2 7 EDT 01/04/2013 10:38 EDT Lilia Otto MD CHEMISTRY & BLOOD GAS ORD ERABLES Final Result [facility] [address] [place] [address] * ANESTHESIA NERVE BLOCK FEMORAL (01/04/2013 7:30 EDT) Anatomical Region Laterality Modality Other 01/04/2013 7:30 EDT Narrative 01/04/2013 7:30 EDT Non Reportable Exam Procedure Note 01/22/2013 Non Reportable Exam Domingo Mcdermott MD G US ORDERABLES Final Result * ORDERS - SCANNED (12/13/2012 13:16 EDT) 12/13/2012 13:1 6 EDT Narrative 12/13/2012 13:42 EDT Procedure Note FORESTRY AID, SCAN 2 - 12/13/2012 13:16 EDT us Scan 2 [employer] Analyst ADMISSION ORDERABLES Final Result documented in this encounter Visit Diagnoses Diagnosis Traumatic arthropathy, lower leg- Primary Traumatic arthropathy, lower leg Total knee replacement status Knee joint replacement by other means OA (osteoarthritis) of knee Osteoarthrosis, unspecified whether generalized or localized, lower leg Total knee replacement status Knee joint replacement by other means OA (osteoarthritis) of knee Osteoarthrosis, unspecified whether generalized or localized, lower leg Left rotator cuff tear arthropathy documented in this encounter Administered Medications Inactive Administered Medications - up to 3 most recent administrations Medication Order MAR Action Action Date Dose Rate Site acetaminophen (TYLENOL) tablet 1,000 mg 1,000 mg, oral, PRE-OP ONCE, 1 dose, On Mon01/04/13 at 1015, Routine, Pre Op Day of Surgery Given 01/04/2013 10:30 EDT 1,000 mg ascorbic acid (VITAMIN C) tablet 500 mg 500 mg, oral, AT BEDTIME, First dose on Mon01/04/13 at 2100, Until Discontinued, Routine, On Unit Given 01/08/2013 21:34 EDT 500 mg Given 01/07/2013 21:43 EDT 500 mg Given 01/06/2013 21:27 EDT 500 mg atenolol (TENORMIN) tablet 50 mg 50 mg, oral, DAILY, First dose on 01/05/13 at 0900, Until Discontinued, Routine Given 01/09/2013 8:21 EDT 50 mg Given 01/08/2013 7:53 EDT 50 mg Given 01/07/2013 8:44 EDT 50 mg atorvastatin (LIPITOR) tablet 40 mg 40 mg, oral, AT BEDTIME, First dose on Mon01/04/13 at 2100, Until Discontinued, Routine Given 01/08/2013 21:33 EDT 4 0 mg Given 01/07/2013 21:43 EDT 40 mg Given 01/06/2013 21:27 EDT 40 mg bisacodyl (DULCOLAX) suppository 10 mg 10 mg, rectal, DAILY PRN, Starting on Mon01/07/13 at 1502, Until Mon01/09/13 at 1554, Constipation, Routine Given 01/08/2013 11:08 EDT 10 mg ceFAZolin (ANCEF) 1,000 mg in sodium chloride 0.9 % 50 mL IVPB 1,000 mg, intravenous, Administer over 30 Minutes, NOW X1, 1 dose, On Mon01/04/13 at 1515, Routine, Recovery (only) Given 01/04/2013 15:12 EDT 1,000 mg ceFAZolin (ANCEF) 2,000 mg in sodium chloride 0.9% 50 mL IVPB 2,000 mg, intravenous, Administer over 30 Minutes, EVERY 8 HOURS, 2 doses, First dose on Mon01/04/13 at 2230, Last dose on Mon01/05/13 at 0800, Routine, On Unit Given 01/05/2013 8:06 EDT 2,000 mg Given 01/04/2013 22:07 EDT 2,000 mg ceFAZolin (ANCEF) syringe 2 g 2 g, intravenous, Administer over 10 Minutes, PRE-OP ONCE, 1 dose, On Mon01/04/13 at 1015, Routine, Pre Op Day of Surgery Given by Other 01/04/2013 11:56 EDT 2 g celecoxib (CELEBREX) capsule 200 mg 200 mg, oral, PRE-OP ONCE, 1 dose, On Mon01/04/13 at 1015, Routine, Pre Op Day of Surgery Given 01/04/2013 10:31 EDT 200 mg Cholecalciferol (Vitamin D3) tablet 400 Units 400 Units, oral, AT BEDTIME, First dose on Mon01/04/13 at 2100, Until Discontinued, Routine, On Unit Given 01/08/2013 21:34 EDT 400 Units Given 01/07/2013 21:43 EDT 400 Units Given 01/06/2013 21:27 EDT 400 Units diphenhydrAMINE (BENADRYL) injection 6.25 mg 6.25 mg, intravenous, PRN, 2 doses, Starting on Mon01/04/13 at 1407, Until Mon01/04/13 at 1645, nausea, Routine, Recovery (only) Given 01/04/2013 16:45 EDT 6.25 mg Given 01/04/2013 14:17 EDT 6.25 mg docusate sodium (COLACE) capsule 200 mg 200 mg, oral, 2 TIMES DAILY, First dose on Mon01/04/13 at 2100, Until Discontinued, Routine, On Unit Given 01/08/2013 21:33 EDT 200 mg Given 01/08/2013 7:54 EDT 200 mg Given 01/07/2013 21:43 EDT 200 mg fentaNYL citrate (PF) 50 mcg/mL injection 25-100 mcg 25-100 mcg, intravenous, EVERY 5 MIN PRN, Starting on Mon01/04/13 at 1407, Until Mon01/04/13 at 1940, Pain, Routine, Recovery (only) Given 01/04/2013 1 7:55 EDT 50 mcg Given 01/04/2013 16:09 EDT 50 mcg Given 01/04/2013 16:00 EDT 50 mcg HYDROmorphone (DILAUDID) tablet 2-6 mg 2-6 mg, oral, EVERY 3 HOURS PRN, Starting on Mon01/04/13 at 1450, Until Mon01/07/13 at 2252, Pain, Routine, On Unit Given 01/07/2013 8:42 EDT 4 mg Given 01/06/2013 22:33 EDT 4 mg Given 01/06/2013 17:01 EDT 4 mg insulin aspart (NOVOLOG FLEXPEN) injection subcutaneous, 3 TIMES DAILY WITH MEALS, First dose on Mon01/05/13 at 0800, Until Discontinued, Routine Given 01/09/2013 8:20 EDT 3 Units Given 01/08/2013 7:04 EDT 3 Units Given 01/07/2013 7:46 EDT 3 Units lactated ringers (LR) infusion at 25 mL/hr, intravenous, CONTINUOUS, Starting on Mon01/04/13 at 1015, Until Mon01/04/13 at 1943, Routine, Pre-Op DOS Rx Approved New Bag 01/04/2013 10:30 EDT 25 mL/hr lactated ringers (LR) infusion at 75 mL/hr, intravenous, CONTINUOUS, Starting on Mon01/04/13 at 1430, Until Mon01/04/13 at 1940, Routine, Recovery (only) Rate Documented 01/04/2013 14:09 EDT 75 mL/hr lisinopril (PRINIVIL, ZESTRIL) tablet 40 mg 40 mg, oral, DAILY, First dose on 01/05/13 at 0900, Until Discontinued, Routine Given 01/09/2013 8:21 EDT 40 mg Given 01/08/2013 7:53 EDT 40 mg Given 01/07/2013 8:43 EDT 40 mg magnesium hydroxide (MILK OF MAGNESIA) 400 mg/5 mL suspension 30 mL 30 mL, oral, 2 TIMES DAILY PRN, Starting on Mon01/07/13 at 1503, Until Mon01/09/13 at 1554, Constipation, Routine Given 01/07/2013 15:47 EDT 30 mL metFORMIN (GLUCOPHAGE) tablet 1,000 mg 1,000 mg, oral, 2 TIMES DAILY WITH BREAKFAST & DINNER, First dose on 01/05/13 at 0800, Until Discontinued, Routine Given 01/09/2013 8:20 EDT 1,000 mg Given 01/08/2013 17:24 EDT 1,000 mg Given 01/08/2013 7:53 EDT 1,000 mg methocarbamol (ROBAXIN) tablet 500-1,000 mg 500-1,000 mg, oral, EVERY 6 HOURS PRN, Starting on Mon01/04/13 at 1450, Until Mon01/09/13 at 1554, muscle spasms, Routine, On Unit Given 01/09/2013 13:47 EDT 500 mg Given 01/08/2013 21:34 EDT 500 mg Given 01/08/2013 10:27 EDT 500 mg metoCLOPramide (REGLAN) injection 10 mg 10 mg, intravenous, PRN, 1 dose, Starting on Mon01/04/13 at 1407, Until Mon01/04/13 at 1414, Nausea, Routine, Recovery (only) Given 01/04/2013 14:14 EDT 10 mg Multivitamins with Minerals tablet 1 Tab 1 Tablet, oral, AT BEDTIME, First dose on Mon01/04/13 at 2100, Until Discontinued, Routine, On Unit Given 01/08/2013 21:34 EDT 1 Tablet Given 01/07/2013 21:43 EDT 1 Tablet Given 01/06/2013 21:27 EDT 1 Tablet nitrofurantoin (macrocrystal-monohydrate) (MACROBID) 100 mg capsule 100 mg 100 mg, oral, 2 TIMES DAILY, 10 doses, First dose on 01/05/13 at 2100, Last dose on Twila 01/10/13 at 0900, Routine Given 01/09/2013 8:21 EDT 100 mg Given 01/08/2013 21:33 EDT 100 mg Given 01/08/2013 7:54 EDT 100 mg nitrofurantoin (MACRODANTIN) capsule 100 mg 100 mg, oral, DAILY, 5 doses, First dose on Mon01/04/13 at 2000, Last dose on Mon01/08/13 at 0900, Routine Given 01/04/2013 22:07 EDT 100 mg ondansetron (PF) (ZOFRAN) injection 2 mg 2 mg, intravenous, PRN, 1 dose, Starting on Mon01/04/13 at 1407, Until Mon01/04/13 at 1712, Nausea, Vomiting, Routine, Recovery (only) Given 01/04/2013 17:12 EDT 2 m g ondansetron (PF) (ZOFRAN) injection 2-4 mg 2-4 mg, intravenous, EVERY 6 HOURS PRN, Starting on Mon01/04/13 at 1943, Until Mon01/07/13 at 1502, Nausea, Routine, On Unit Given 01/06/2013 6:35 EDT 4 mg Given 01/05/2013 10:49 EDT 4 mg ondansetron (ZOFRAN-ODT) disintegrating tablet 8 mg 8 mg, oral, EVERY 4 HOURS PRN, Starting on Mon01/07/13 at 1501, Until Mon01/09/13 at 1554, Nausea, Routine Given 01/08/2013 11:08 EDT 8 mg Given 01/07/2013 22:14 EDT 8 mg Given 01/07/2013 16:55 EDT 8 mg oxyCODONE (OXYCONTIN) CR tablet 10 mg 10 mg, oral, PRE-OP ONCE, 1 dose, On Mon01/04/13 at 1015, Routine, Pre Op Day of Surgery Given 01/04/2013 10:32 EDT 10 mg oxyCODONE (ROXICODONE) immediate release tablet 5-15 mg 5-15 mg, oral, EVERY 4 HOURS PRN, Starting on Mon01/07/13 at 2251, Until Mon01/09/13 at 1554, Pain, Routine Given 01/09/2013 13:47 EDT 5 mg Given 01/08/2013 21:34 EDT 5 mg Given 01/08/2013 7:52 EDT 5 mg pantoprazole (PROTONIX) tablet 40 mg 40 mg, oral, DAILY, First dose on Mon01/04/13 at 2000, Until Discontinued Given 01/09/2013 8:21 EDT 40 mg Given 01/08/2013 7:54 EDT 40 mg Given 01/07/2013 8:43 EDT 40 mg PEG 3350-Electrolytes (MIRALAX) packet 17 g 17 g, oral, DAILY, First dose on Mon01/04/13 at 2000, Until Discontinued, Routine, On Unit Given 01/08/2013 7:52 EDT 17 g Given 01/07/2013 8:43 EDT 17 g Given 01/06/2013 8:03 EDT 17 g pregabalin (LYRICA) capsule 75 mg 75 mg, oral, PRE-OP ONCE, 1 dose, On Mon01/04/13 at 1015, Routine, Pre Op Day of Surgery Given 01/04/2013 10:32 EDT 75 mg scopolamine (TRANSDERM-SCOP) 1.5 mg patch 1 Patch 1 Patch, transdermal, Administer over 72 Hours, EVERY 72 HOURS, First dose on Mon01/06/13 at 1045, Until Discontinued, Routine Patch Applied 01/06/2013 11:09 EDT 1 Patch Other sodium chloride 0.9 % with KCl 20 mEq/L infusion at 75 mL/hr, intravenous, CONTINUOUS, Starting on Mon01/04/13 at 1545, Until Mon01/09/13 at 1554, Routine, On Unit Rate Documented 01/05/2013 8:06 EDT 75 mL/hr Rate Documented 01/04/2013 20:15 EDT 75 mL/hr New Bag 01/04/2013 15:20 EDT 75 mL/hr sodium phosphate (FLEET) enema 1 Enema 1 Enema, rectal, DAILY PRN, Starting on Mon01/07/13 at 0000, Until Mon01/09/13 at 1554, Constipation, Routine, On Unit Given 01/08/2013 14:30 EDT 1 Enema warfarin (COUMADIN) tablet 2 mg 2 mg, oral, AT BEDTIME, First dose (after last modification) on Mon01/06/13 at 2100, Until Discontinued, Indications: deep vein thrombosis prevention, Is this a new start or continuation of therapy? Continuation, Routine, On UnitIndications:deep vein thrombosis prevention Given 01/06/2013 21:27 EDT 2 mg warfarin (COUMADIN) tablet 3 mg 3 mg, oral, AT BEDTIME, First dose (after last modification) on 01/07/13 at 2100, Until Discontinued, Indications: deep vein thrombosis prevention, Is this a new start or continuation of therapy? Continuation, Routine, On UnitIndications:deep vein thrombosis prevention Given 01/08/2013 21:34 EDT 3 mg Given 01/07/2013 21:43 EDT 3 mg warfarin (COUMADIN) tablet 4 mg 4 mg, oral, AT BEDTIME, First dose (after last modification) on Mon01/05/13 at 2100, Until Discontinued, Indications: deep vein thrombosis prevention, Is this a new start or continuation of therapy? Continuation, Routine, On UnitIndications:deep vein thrombosis prevention Given 01/05/2013 21:27 EDT 4 mg warfarin (COUMADIN) tablet 5 mg 5 mg, oral, AT BEDTIME, First dose on Mon01/04/13 at 2100, Until Discontinued, Indications: deep vein thrombosis prevention, Is this a new start or continuation of therapy? New Start, Routine, On UnitIndications:deep vein thrombosis prevention Given 01/04/2013 22:07 EDT 5 mg zinc sulfate (ZINCATE) capsule 220 mg 220 mg, oral, AT BEDTIME, First dose on Mon01/04/13 at 2100, Until Discontinued, Routine, On Unit Given 01/08/2013 21:34 EDT 220 mg Given 01/07/2013 21:43 EDT 220 mg Given 01/06/2013 21:27 EDT 220 mg documented in this encounter Discontinued Medications Medication Sig Discontinue Reason Start Date End Da te simvastatin (ZOCOR) 80 mg tablet Take 80 mg by mouth at bedtime. Allergic reaction 04/30/2008 12/21/2012 atenolol (TENORMIN) 100 mg tablet Take 50 mg by mouth daily. Duplicate Therapy 04/30/2008 12/21/2012 ibuprofen (MOTRIN) 600 mg tablet Take 600 mg by mouth daily. 01/04/2013 warfarin (COUMADIN) 5 mg tablet Take 5 mg by mouth at bedtime. One time dose, the evening prior to surgery 01/06/2013 [place]-3 Fatty Acids-Vitamin E (FISH OIL) 1,000 mg Cap Take by mouth daily. 04/30/2007 3 docusate sodium (COLACE) 100 mg capsule Take 100 mg by mouth as needed. 04/30/2006 01/06/2013 aspirin 81 mg EC tablet Take 81 mg by mouth daily. 04/30/1986 01/06/2013 HYDROmorphone (DILAUDID) 2 mg tablet Take 1-3 Tabs by mouth every 3 hours as needed for Pain. 01/06/2013 01/08/2013 documented as of this encounter Historical Medications * This list may reflect changes made after this encounter. atenolol (TENORMIN) 50 mg tablet Take 1 Tablet by mouth every morning. atorvastatin (LIPITOR) 20 mg tablet Take 1 Tablet by mouth at bedtime. warfarin (COUMADIN) 5 mg tablet Take 5 mg by mouth at bedtime. One time dose, the evening prior to surgery 01/06/2013 ibuprofen (MOTRIN) 600 mg tablet Take 600 mg by mouth daily. 01/04/2013 added in this encounter Active and Recently Administered Medications Times are shown in EDT. Scheduled Medication Order 01/07/2013 01/08/2013 01/09/2013 ascorbic acid (VITAMIN C) tablet 500 mg 500 mg, oral, AT BEDTIME, First dose on Mon01/04/13 at 2100, Until Discontinued, Routine, On Unit 2142 (Given - Provider: Francine Koch RN) 2133 (Given - Provider: Danielle Gan) atenolol (TENORMIN) tablet 50 mg (CANCELED) 50 mg, oral, DAILY, First dose on Mon01/05/13 at 0900, Until Discontinued, Routine 0844 (Given - Provider: Fide Hinojosa RN) 0753 (Given - Provider: Fide Hinojosa RN)1009 (Canceled Entry - Provider: Fide Hinojosa RN) 0821 (Given - Provider: Patrica Parker RN) atorvastatin (LIPITOR) tablet 40 mg (CANCELED) 40 mg, oral, AT BEDTIME, First dose on 01/04/13 at 2100, Until Discontinued, Routine 2142 (Given - Provider: Francine Koch RN) 2132 (Given - Provider: Danielle Gan) Cholecalciferol (Vitamin D3) tablet 400 Units (CANCELED) 400 Units, oral, AT BEDTIME, First dose on Mon01/04/13 at 2100, Until Discontinued, Routine, On Unit 2143 (Given - Provider: Francine Koch RN) 2133 (Given - Provider: Danielle Gan) docusate sodium (COLACE) capsule 200 mg 200 mg, oral, 2 TIMES DAILY, First dose on Mon01/04/13 at 2100, Until Discontinued, Routine, On Unit 0843 (Given - Provider: Fide Hinojosa RN)214 (Given - Provider: Francine Koch RN) 0754 (Given - Provider: Fide Hinojosa RN)1009 (Canceled Entry - Provider: Fide Hinojosa RN)2132 (Given - Provider: Danielle Gan) 08 (Not Given - Provider: Patrica Parker RN - Reason: Order parameters not met - Comment: Loose stool) insulin aspart (NOVOLOG FLEXPEN) injection (CANCELED) subcutaneous, 3 TIMES DAILY WITH MEALS, First dose on 01/05/13 at 0800, Until Discontinued, Routine 0746 (Given - Provider: Fide Hinojosa RN)1212 (Not Given - Provider: Chary Woods - Reason: Order parameters not met - Comment: FS [phone] (Not Given - Provider: Molly Tirado RN - Reason: Other) 0704 (Given - Provider: Francine Koch RN)1206 (Not Given - Provider: Fide Hinojosa RN - Reason: Order parameters not met)1700 (Not Given - Provider: Patrica Parker RN - Reason: Order parameters not met - Comment: FS 120) 0820 (Given - Provider: Patrica Parker RN)1216 (Not Given - Provider: Patrica Parkre RN - Reason: Order parameters not met) lisinopril (PRINIVIL, ZESTRIL) tablet 40 mg (CANCELED) 40 mg, oral, DAILY, First dose on 01/05/13 at 0900, Until Discontinued, Routine 0843 (Given - Provider: Fide Hinojosa RN) 075 (Given - Provider: Fide Hinojosa RN)1009 (Canceled Entry - Provider: Fide Hinojosa RN) 0821 (Given - Provider: Partica Parker, АЛЕКСАНДР) metFORMIN (GLUCOPHAGE) tablet 1,000 mg (CANCELED) 1,000 mg, oral, 2 TIMES DAILY WITH BREAKFAST & DINNER, First dose on 01/05/13 at 0800, Until Discontinued, Routine 0842 (Given - Provider: Fide Hinojosa RN)1709 (Given - Provider: Molly Tirado RN) 0753 (Given - Provider: Fide Hinojosa RN)1724 (Given - Provider: Patrica Parker, RN) 0820 (Given - Provider: Patrica Parker, АЛЕКСАНДР) Multivitamins with Minerals tablet 1 Tab (CANCELED) 1 Tablet, oral, AT BEDTIME, First dose on Mon01/04/13 at 2100, Until Discontinued, Routine, On Unit 2142 (Given - Provider: Francine Koch RN) 2133 (Given - Provider: Danielle Gan) nitrofurantoin (macrocrystal-monohydra te) (MACROBID) 100 mg capsule 100 mg (CANCELED) 100 mg, oral, 2 TIMES DAILY, 10 doses, First dose on 01/05/13 at 2100, Last dose on Twila 01/10/13 at 0900, Routine 0842 (Given - Provider: Fide Hinojosa RN)2143 (Given - Provider: Francine Koch RN) 0754 (Given - Provider: Fide Hinojosa RN)1009 (Canceled Entry - Provider: Fide Hinojosa RN)213 (Given - Provider: Danielle Gan) 0821 (Given - Provider: Patrica Parker RN) pantoprazole (PROTONIX) tablet 40 mg (CANCELED) 40 mg, oral, DAILY, First dose on Mon01/04/13 at 2000, Until Discontinued 0843 (Given - Provider: Fide Hinojosa RN) 0754 (Given - Provider: Fide Hinojosa RN)1009 (Canceled Entry - Provider: Fide Hinojosa RN) 0821 (Given - Provider: Patrica Parker, АЛЕКСАНДР) PEG 3350-Electrolytes (MIRALAX) packet 17 g 17 g, oral, DAILY, First dose on Mon01/04/13 at 2000, Until Discontinued, Routine, On Unit 0843 (Given - Provider: Fide Hinojosa RN) 0752 (Given - Provider: Fide Hinojosa RN)1009 (Canceled Entry - Provider: Fide Hinojosa RN) 0813 (Not Given - Provider: Patrica Parker RN - Reason: Order parameters not met - Comment: loose stool) scopolamine (TRANSDERM-SCOP) 1.5 mg patch 1 Patch 1 Patch, transdermal, Administer over 72 Hours, EVERY 72 HOURS, First dose on Mon01/06/13 at 1045, Until Discontinued, Routine 1145 (Patch Removed - Provider: Patrica Parker RN)1217 (Not Given - Provider: Patrica Parker RN - Reason: Patient/family refused) warfarin (COUMADIN) tablet 2 mg 2 mg, oral, AT BEDTIME, First dose (after last modification) on Mon01/06/13 at 2100, Until Discontinued, Indications: deep vein thrombosis prevention, Is this a new start or continuation of therapy? Continuation, Routine, On Unit warfarin (COUMADIN) tablet 3 mg 3 mg, oral, AT BEDTIME, First dose (after last modification) on Mon01/07/13 at 2100, Until Discontinued, Indications: deep vein thrombosis prevention, Is this a new start or continuation of therapy? Continuation, Routine, On Unit 2142 (Given - Provider: Francine Koch RN) 2133 (Given - Provider: Danielle Gan) zinc sulfate (ZINCATE) capsule 220 mg (CANCELED) 220 mg, oral, AT BEDTIME, First dose on Mon01/04/13 at 2100, Until Discontinued, Routine, On Unit 2142 (Given - Provider: Francine Koch RN) 2133 (Given - Provider: Danielle Gan) PRN Medication Order 01/07/2013 01/08/2013 01/09/2013 bisacodyl (DULCOLAX) suppository 10 mg 10 mg, rectal, DAILY PRN, Starting on Mon01/07/13 at 1502, Until Mon01/09/13 at 1554, Constipation, Routine 1108 (Given - Provider: Patrica Parker RN) HYDROmorphone (DILAUDID) tablet 2-6 mg 2-6 mg, oral, EVERY 3 HOURS PRN, Starting on Mon01/04/13 at 1450, Until Mon01/07/13 at 2252, Pain, Routine, On Unit 0842 (Given - Provider: Fide Hinojosa RN) magnesium hydroxide (MILK OF MAGNESIA) 400 mg/5 mL suspension 30 mL 30 mL, oral, 2 TIMES DAILY PRN, Starting on Mon01/07/13 at 1503, Until Mon01/09/13 at 1554, Constipation, Routine 1547 (Given - Provider: Molly Tirado RN) methocarbamol (ROBAXIN) tablet 500-1,000 mg 500-1,000 mg, oral, EVERY 6 HOURS PRN, Starting on Mon01/04/13 at 1450, Until Mon01/09/13 at 1554, muscle spasms, Routine, On Unit 2146 (Given - Provider: Francine Koch RN) 1027 (Given - Provider: Fide Hinojosa RN)2134 (Given - Provider: Danielle Gan) 1347 (Given - Provider: Patrica Parker RN) ondansetron (ZOFRAN-ODT) disintegrating tablet 8 mg (CANCELED) 8 mg, oral, EVERY 4 HOURS PRN, Starting on Mon01/07/13 at 1501, Until Mon01/09/13 at 1554, Nausea, Routine 1655 (Given - Provider: Molly Tirado RN)2214 (Given - Provider: Francine Koch RN) 1108 (Given - Provider: Patrica Parker, АЛЕКСАНДР) oxyCODONE (ROXICODONE) immediate release tablet 5-15 mg 5-15 mg, oral, EVERY 4 HOURS PRN, Starting on Mon01/07/13 at 2251, Until Mon01/09/13 at 1554, Pain, Routine 0752 (Given - Provider: Fide Hinojosa RN)2134 (Given - Provider: Danielle Gan) 1347 (Given - Provider: Patrica Parker RN) sodium phosphate (FLEET) enema 1 Enema (CANCELED) 1 Enema, rectal, DAILY PRN, Starting on Mon01/07/13 at 0000, Until Mon01/09/13 at 1554, Constipation, Routine, On Unit 1430 (Given - Provider: Fide Hinojosa RN) documented in this encounter Orders Medications Ordered That Asif ht Not Have Been Administered Count Last Ordered Date First Ordered Date acetaminophen (TYLENOL) tablet 325 mg 1 atropine 0.4 mg 1 01/04/2013 calcium carbonate (TUMS) 200 mg calcium (500 mg) per chewable tablet tablet, chewable 1-2 Tab 1 01/04/2013 dextrose 50 % solution 12.5 g 1 01/04/2013 diphenhydrAMINE (BENADRYL) e lixir 12.5-25 mg 1 01/04/2013 glucagon (human recombinant) injection 1 mg 1 01/04/2013 HYDROmorphone (DILAUDID) tablet 2 mg 1 12/23 HYDROmorphone (PF) (DILAUDID ) 1 mg/mL injection 0.2-0.6 mg 1 01/04/2013 naloxone (NARCAN) injection 0.2 mg 1 2012 warfarin education book 1 Each 1 01/04/2013 zolpidem (AMBIEN) tablet 5 mg 1 01/04/2013 Nursing Count Last Ordered Date First Orde red Date CHECK HAMILTON CATHETER 1 01/04/2013 CHECK CSMT - COLOR, SENSATIO N, MOTION, TEMP 1 01/04/2013 HAMILTON CATHETER - DISCONTINUE 1 01/04/2013 INSERT HAMILTON CATHETER 1 01/04/2013 VTE PHARMACOLOGIC PROPHYLAXI S CURRENTLY ORDERED OR ON ALTERNATIVE THER 1 01/04/2013 PT Count Last Ordered Date First Orde red Date PT EVALUATION AND TREAT 1 01/04/2013 Admission Count Last Ordered Date First Orde red Date STATUS: INPATIENT DOSA/DOPA DAY OF SURGERY/PROCEDURE ADMISSION 1 01/04/2013 STATUS: INPATIENT POST-PROCE DURE ADMISSION UPGRADE 1 01/04/2013 Transfer Count Last Ordered Date First Orde red Date NOTIFY PPS OF DISCHARGE COMPLETE 1 01/10/20 13 NOTIFY PPS PATIENT ARRIVAL IN PACU 1 2012 NOTIFY PPS PATIENT TRANSFERRED OUT OF PACU 1 01/04/2013 PPS NOTIFICATION OF PATIENT ARRIVAL ON UNIT 1 01/04/2013 Discharge Count Last Ordered Date First Orde red Date DISCHARGE PATIENT 2 01/09/2013 01/08/2013 Consult to Social Work Count Last Ordered Date First Ordered Date CONSULT SOCIAL WORK 1 01/04/2013 documented in this encounter Care Teams Live In Caregiver Relationship Specialty Start Date End Date Barbara Conway NP [address] [place] [address] PCP - General 08/14/08 07/22/13 documented as of this encounter
--- OUTSIDE RECORDS SUMMARY | 2024-03-18 22:13 | XMS_ITS | Encounter Summary ---
Author Organization [facility] Address [address] [place] [address] Care Team Providers Care Fuel Cell Engineer Name Role Phone Barbara Conway MANAGER CONTINUOUS IMPROVEMENT Primary Care Provider [phone] Unknown, Provider Primary Care Provider Yoel Savage Primary Care Provider [phone] Barbara Conway MANAGER CONTINUOUS IMPROVEMENT Primary Care Provider [phone] Reason for Visit * Reason Onset Date Comments Appointment Related 05/15/2013 NEEDS to [facility] colo 2/5. please call her. Encounter Details Date Type Department Care Team (Late st Contact Info) Description 05/15/2013 Telephone [facility] General Surgery - [address] [address] Arnel Oliva MD [address] [facility], [address] [place] [address] Appointment Related (NEEDS to [facility] colo 2/5. please call her.) Social History Tobacco Use Types Packs/Day Years [...] Description 03/27/2024 14:[address] [facility] OR [address] [place] [address] [phone] Vishal Castillo MD [address] [place] [phone] 03/27/2024 14:25 EST - 03/27/2024 17:[address] [facility] OR [address] [place] [address] [phone] Vishal Castillo MD [address] [place] [phone] Left Reverse Total Shoulder Arthroplasty [32061 (CPT??)] 04/08/2024 15:30 EST Post-op Visit [facility] Hand & Upper Extremity Program - [address] [address] Vishal Castillo MD [address] [place] [phone] Scheduled Procedures Name Priority Associated Diagnoses Date/Ti me ARTHROPLASTY, SHOULDER, TOTAL Left rotator cuff tear arthropathy 03/27/2024 14:25 EST documented as of this encounter Visit Diagnoses Not on filedocumented in this encounter Additional Health Concerns Infection Onset Date Last Indicated Resolved Time R/O COVID-19 10/24/2019 10/24/2019 10/28/2019 10:3 2 EDT documented as of this encounter Care Teams Fuel Cell Engineer Relationship Specialty Start Date End Date Barbara Conway NP [address] [place], [place] [id number] PCP - General 08/14/08 07/22/13 Unknown, Provider, [address] [place] [address] PCP - General 07/23/13 07/23/13 Yoel Reyes PA [address] [place] [address] PCP - General 07/24/13 08/18/13 Barbara Conway NP [address] [place] [address] PCP - General 08/19/13 documented as of this encounter
--- OUTSIDE RECORDS SUMMARY | 2024-03-18 22:13 | XMS_ITS | Encounter Summary ---
Author Organization [facility] Address [address] [place] [address] Care Team Providers Care Fine Grade Operator Name Role Phone Barbara Conway STAFF ENGINEER Primary Care Provider [phone] Encounter Details Date Type Department Care Team (Latest Contact Info) Description 09/13/2012 13:32 EDT - 09/13/2012 23:59 EDT Hospital Encounter [address] [address] Barbara Conway, STAFF ENGINEER [address] [place] [phone] Discharge Disposition: Auto Discharge Social History Tobacco Use Types Packs/Day Years Used Date Smoking Tobacco: Never Assessed Comments Unknown Sex and Gender Information Value Date Recorded Sex Assigned at Female 03/08/2024 18:30 EST Legal Sex Female 18:30 EST Gender Identity Female 05/28/2019 8:56 EST Sexual Orientation Not on file documented as of this encounter Medications at Time of Discharge lisinopriL (PRINIVIL) 20 mg tablet Take 1 Tablet by mouth every morning. 04/30/1987 metFORMIN (GLUCOPHAGE) 500 mg tablet Take 1 Tablet by mouth 2 times daily with breakfast and dinner. 12/29/2009 omeprazole (PRILOSEC) 40 mg capsule Take 1 Capsule by mouth every morning. 04/30/2008 aspirin 81 mg EC tablet Take 81 mg by mouth daily. 04/30/1986 3 atenolol (TENORMIN) 100 mg tablet Take 50 mg by mouth daily. 04/30/2008 3 BETA-CAROTENE,A, W-C & E (ANTI-OXIDANT ORAL) Take by mouth daily. Reported on 05/02/2016 04/30/2007 0 Calcium-Cholecal ciferol, D3, (CALCIUM 600 + D,3,) 600-200 mg-unit Cap Take by mouth daily. 04/30/1999 0 docusate sodium (COLACE) 100 mg capsule Take 100 mg by mouth as needed. 04/30/2006 3 multivitamin (DAILY VITAMIN) per tablet Take 1 Tab by mouth daily. 04/30/2007 0 nitrofurantoin (MACRODANTIN) 100 mg capsule Take 100 mg by mouth daily. Reported on 08/31/2016 04/30/2007 0 [place]-3 Fatty Acids-Vitamin E (FISH OIL) 1,000 mg Cap Take by mouth daily. 04/30/2007 3 simvastatin (ZOCOR) 80 mg tablet Take 80 mg by mouth at bedtime. 04/30/2008 3 documented as of this encounter Discharge Disposition Disposition Code Departure Means Destination Auto Discharge Home documented in this encounter Plan of Treatment Upcoming Encounters Date Type Department Care Team (Latest Contact Info) Description 03/27/2024 14:25 EST Hospital Encounter [facility] OR [address] [place] [address] [phone] Vishal Castillo MD [address] [place] [phone] 03/27/2024 14:25 EST - 03/27/2024 17:55 EST Surgery [facility] OR [address] [place] [address] [phone] Vishal Castillo MD [address] [place] [phone] Left Reverse Total Shoulder Arthroplasty [41563 (CPT??)] 04/08/2024 15:30 EST Post-op Visit [facility] Hand & Upper Extremity Program - [facility] [address] [place] [address] Vishal Castillo MD [address] [place] [phone] Scheduled Procedures Name Priority Associated Diagnoses Date/Ti me ARTHROPLASTY, SHOULDER, TOTAL Left rotator cuff tear arthropathy 03/27/2024 14:25 EST documented as of this encounter Visit Diagnoses Not on filedocumented in this encounter Care Teams Fine Grade Operator Relationship Specialty Start Date End Date Barbara Conway STAFF ENGINEER [address] [place] [address] PCP - General 08/14/08 07/22/13 documented as of this encounter
--- OUTSIDE RECORDS SUMMARY | 2024-03-18 22:13 | XMS_ITS | Encounter Summary ---
Author Organization [facility] Address [address] [place] [address] Care Team Providers Care Resolution Rep Name Role Phone Barbara Conway BALLAST CLEANING OPERATOR Primary Care Provider [phone] Encounter Details Date Type Department Care Team (Late st Contact Info) Description 03/17/2014 Orders Only [address] [phone] Barbara Conway, BALLAST CLEANING OPERATOR [address] [place], [place] [address] Social History Tobacco Use Types Packs/Day Years [...] Info) Description 03/27/2024 14:25 EST Hospital Encounter [facility] [place] [address] [place] [address] [phone] Vishal Castillo MD [address] [place] [phone] 03/27/2024 14:25 EST - 03/27/2024 17:55 EST Surgery [facility] OR [address] [place], [place] [phone] Vishal Castillo MD [address] [place] [phone] Left Reverse Total Shoulder Arthroplasty [93922 (CPT??)] 04/08/2024 15:30 EST Post-op Visit [facility] Hand & Upper Extremity Program - [address] [address] Vishal Castillo MD [address] [place] [phone] Scheduled Procedures Name Priority Associated Diagnoses Date/Ti me ARTHROPLASTY, SHOULDER, TOTAL Left rotator cuff tear arthropathy 03/27/2024 14:25 EST documented as of this encounter Visit Diagnoses Not on filedocumented in this encounter Care Teams Resolution Rep Relationship Specialty Start Date End Date Barbara Conway NP [address] [place] [address] PCP - General 08/19/13 documented as of this encounter
--- OUTSIDE RECORDS SUMMARY | 2024-03-18 22:13 | XMS_ITS | Encounter Summary ---
Author Organization [facility] Address [address] [place] [address] Care Team Providers Care Motorcycle Technician Name Role Phone ZoraidaBarbara Myla BALER OPERATOR Primary Care Provider [phone] Encounter Details Date Type Department Care Team (Latest Contact Info) Description 12/10/2012 9:05 EDT - 12/10/2012 23:59 EDT Hospital Encounter [address] [address] Russel Otto MD [address] [place] [phone] Discharge Disposition: Home or Self Care Social [...] by mouth 2 times daily. 01/06/2013 0 docusate sodium (COLACE) 100 mg capsule Take 100 mg by mouth as needed. 04/30/2006 3 HYDROmorphone (DILAUDID) 2 mg tablet Take 1-3 Tabs by mouth every 3 hours as needed for Pain. 80 Tab 0 01/06/2013 3 ibuprofen (MOTRIN) 600 mg tablet Take 600 mg by mouth daily. 3 magnesium hydroxide (MILK OF MAGNESIA) 400 mg/5 [...] mouth daily. Reported on 08/31/2016 04/30/2007 0 [place]-3 Fatty Acids-Vitamin E (FISH OIL) 1,000 mg Cap Take by mouth daily. 04/30/2007 3 oxyCODONE (ROXICODONE) 5 mg immediate release tablet Take 1-3 Tabs by mouth every 4 hours as needed for Pain. 60 Tab 0 01/08/2013 0 PEG 3350-Electrolytes (MIRALAX) 17 gram packet Take 17 g by mouth daily. 01/06/2013 0 scopolamine (TRANSDERM-SCOP) 1.[address] 1 Patch onto the skin every 72 hours. 4 Patch 1 01/06/2013 0 simvastatin (ZOCOR) 80 mg tablet Take 80 mg by mouth at bedtime. 04/30/2008 3 warfarin (COUMADIN) 2 mg tabletIndications :deep vein thrombosis prevention Take 1.5 Tabs by mouth at bedtime. Indications: DEEP VEIN THROMBOSIS PREVENTION 40 Tab 1 01/08/2013 0 warfarin (COUMADIN) 2 mg tabletIndications :deep vein thrombosis prevention Take 1 Tab by mouth at bedtime. Indications: DEEP VEIN THROMBOSIS PREVENTION 40 Tab 1 01/06/2013 0 warfarin (COUMADIN) 5 mg tablet Take 5 mg by mouth at bedtime. One time dose, the evening prior to surgery 3 documented as of this encounter Discharge Disposition Disposition Code Departure Means Destination Home or Self Intermediate documented in this encounter Plan of Treatment Upcoming Encounters Date Type Department Care Team (Latest Contact Info) Description 03/27/2024 14:25 [facility] Hospital Encounter [facility] OR [address] [place] [address] [phone] Vishal Castillo MD [address] [place] [phone] 03/27/2024 14:25 EST - 03/27/2024 17:55 EST Surgery [facility] OR [address] [place] [address] [phone] Vishal Castillo MD [address] [place] [phone] Left Reverse Total Shoulder Arthroplasty [13443 (CPT??)] 04/08/2024 15:30 EST Post-op Visit [facility] Hand & Upper Extremity Program - [facility] [address] [facility] [place] [address] Vishal Castillo MD [address] [place] [phone] Scheduled Procedures Name Priority Associated Diagnoses Date/Ti me ARTHROPLASTY, SHOULDER, TOTAL Left rotator cuff tear arthropathy 03/27/2024 14:25 EST documented as of this encounter Procedures Procedure Name Priority Date/Time Associated Diagnosis Comments PREPARE RED BLOOD CELLS Routine 12/10/2012 10:36 EDT PREPARE RED BLOOD CELLS Routine 12/10/2012 10:36 EDT TYPE AND SCREEN Routine 12/10/2012 10:36 EDT URINE MICROSCOPIC Routine 12/10/2012 9:1 5 EDT URINALYSIS WITH MICROSCOPIC IF POSITIVE Routine 12/10/2012 9:15 EDT URINE CULTURE IF POSITIVE Routine 12/10/2012 9:15 EDT PRE-OP TYPE AND SCREEN Routine 3 9:14 EDT PROTIME Routine 12/10/2012 9:14 EDT COMPLETE BLOOD COUNT Routine 12/10/2012 9:14 EDT COMPREHENSIVE METABOLIC PANEL (CMP) Routine 12/10/2012 9:14 EDT BACTERIAL CULTURE, URINE Routine 12/10/2012 9:13 EDT documented in this encounter Results * TYPE AND SCREEN (12/10/2012 10:36 EDT) ABO B [facility] Rh Factor Positive [facility] Antibody Screen Negative [facility] Comment:SAMPLE EXPIRES ON @ 23:59 12/10/2012 10:3 6 EDT us Provider Unknown MD BLOOD BANK TESTS Final Resul t Performing Organization Address [facility] Co de Phone Number [facility] [address] [place] [address] * PREPARE RED BLOOD CELLS (12/10/2012 10:36 EDT) Product Code E0382 -3 RED BLOOD CELLS, Leukocytes Reduced [facility] Donor Number [id number] [facility] Unit ABO B [facility] Unit Rh NEG [facility] Cross Match Interp Compatible [facility] Unit Status Released From [facility] 12/10/2012 10:3 6 EDT us Provider Unknown MD BLOOD BANK ORDERABLES Final Result Performing Organization Address [facility] Co de Phone Number [facility] [address] [place] [address] * PREPARE RED BLOOD CELLS (12/10/2012 10:36 EDT) Product Code E0382 -3 RED BLOOD CELLS, Leukocytes Reduced [facility] Donor Number [id number] [facility] Unit ABO B [facility] Unit Rh NEG [facility] Cross Match Interp Compatible [facility] 12/10/2012 10:3 6 EDT us Provider Unknown BLOOD BANK ORDERABLES Final Result Performing Organization Address [facility] Co de Phone Number [facility] [address] [place] [address] * (ABNORMAL) URINE MICROSCOPIC (12/10/2012 9:15 EDT) WBC, UA 1 to 5 0 - 5 /HPF [facility] RBC, UA less than 1 0 - 5 /HPF [facility] Squam Epithel, UA None seen None seen /HPF [facility] Renal Epithel, UA None seen None seen /HPF [facility] Bacteria, UA Rare(A) None seen /HPF [facility] Crystals, UA None seen /HPF [facility] Hyaline Casts, UA Rare /LPF [facility] Comment:Hyaline UA Comment Microscopic results [facility] Comment: are unreliable on urines unrefrig >2hrs or refrig >8hrs. Additional Findings Amorphous material present [facility] 12/10/2012 9:15 EDT 12/10/2012 9:47 EDT Russel Otto MD URINALYSIS ORDERABLES Fin al Result Performing Organization Address [facility] de Phone Number [facility] [address] [place] [address] * (ABNORMAL) URINALYSIS (12/10/2012 9:15 EDT) Color, UA Yellow [facility] Clarity, UA Clear [facility] Glucose, UA Neg Neg [facility] Bilirubin, UA Neg Neg [facility] Ketones, UA Neg Neg [facility] Specific Magnet, Urine <1.005 1.001 - 1.035 [facility] Blood, UA Neg Neg [facility] pH, UA 6.0 4.6 - 8.0 [facility] Protein, UA Neg Neg [facility] Urobilinogen, UA 0.2 0.2 - 1.0 E.U./dl [facility] Nitrite, UA Neg Neg [facility] Leuk Esterase Trace(A) Neg [facility] 12/10/2012 9:15 EDT 12/10/2012 9:47 EDT Russel Otto MD URINALYSIS ORDERABLES Fin al Result Performing Organization Address [facility] de Phone Number [facility] [address] [place] [address] * URINE CULTURE IF UA POSITIVE - NON POCT URINALYSIS ONLY (12/10/2012 9:15 EDT) Pathologist [facility] Culture if Indicated Culture indicated by urinalysis results. [facility] 12/10/2012 9:15 EDT 12/10/2012 9:47 EDT Russel Otto MD MICROBIOLOGY - GENERAL OR DERABLES Final Result Performing Organization Address [facility] de Phone Number [facility] [address] [place] [address] * PROTIME (12/10/2012 9:14 EDT) Pro Time 10.7 9.5 - 13.1 secs [facility] I.N.R. 0.9 0.9 - 1.1 Ratio [facility] Comment: Moderate Intensity Coumadin INR = 2.0-3.0 Adjustments in anticoagulant therapy dose should be based upon the INR and NOT the Pro Time. 12/10/2012 9:14 EDT 12/10/2012 10:04 EDT Russel Otto MD HEMATOLOGY & PF4 ORDERABL ES Final Result Performing Organization Address [facility] [place] de Phone Number [facility] [address] [place] [address] * PRE-OP BLOOD BANK DRAW (12/10/2012 9:14 EDT) [facility] Pre-Op Blood Bank Lab Draw SPECIMEN RECEIVED ACCEPTABLE [facility] 12/10/2012 9:14 EDT 12/10/2012 10:04 EDT Russel Otto MD BLOOD BANK TESTS Final Re sult Performing Organization Address [facility] [place] de Phone Number [facility] [address] [place] [address] * (ABNORMAL) COMPREHENSIVE METABOLIC PANEL (CMP) (12/10/2012 9:14 EDT) Pathologist [facility] Potassium 4.7 3.5 - 5.0 mEq/L [facility] Sodium 139 136 - 145 mEq/L [facility] Chloride 105 96 - 110 mEq/L [facility] CO2 25 24 - 32 mEq/L [facility] Total Alkaline Phosphatase 75 38 - 126 U/L [facility] Bilirubin, Total 0.6 0.2 - 1.3 mg/dl [facility] AST 23 15 - 46 U/L [facility] ALT 35 9 - 52 U/L [facility] Albumin 4.0 3.4 - 4.9 g/dl [facility] Total Protein 6.2(L) 6.5 - 8.3 g/dl [facility] Creatinine 0.73 0.52 - 1.04 mg/dl [facility] GFR, Calculated >60 >60 ml/min/1.7 3m2 [facility] BUN 18 10 - 26 mg/dl [facility] Calcium 9.8 8.5 - 10.5 mg/dl [facility] Calculated Calcium 10.2 8.5 - 10.5 mg/dl [facility] Glucose, Serum 115(H) 70 - 100 mg/dl [facility] Fasting? No [facility] 12/10/2012 9:14 EDT 12/10/2012 10:04 EDT us Russel Otto MD CHEMISTRY & BLOOD GAS ORD ERABLES Final Result [facility] [address] [place] [address] * (ABNORMAL) HEMAGRAM (12/10/2012 9:14 EDT) WBC 5.79 4.0 - 12.4 K/cmm [facility] RBC 4.30 3.86 - 5.04 M/cmm [facility] Hemoglobin 11.0(L) 11.6 - 15.2 gm/dl [facility] HCT 33.6(L) 34.9 - 44.4 % [facility] MCV 78(L) 81 - 98 fl [facility] MCH 25.5(L) 26.7 - 33.3 pg [facility] MCHC 32.6 32.1 - 35.9 gm/dl [facility] PLT 261 141 - 320 K/cmm [facility] RDW-CV 15.9(H) 11.7 - 14.6 % [facility] 12/10/2012 9:14 EDT 12/10/2012 10:04 EDT Russel Otto MD HEMATOLOGY & PF4 ORDERABL ES Final Result Performing Organization Address [facility] Co de Phone Number [facility] [address] [place] [address] * BACTERIAL CULTURE, URINE (12/10/2012 9:13 EDT) Specimen Description Urine [facility] Result Less than 10,000 CFU/ml Mixed gram positive and gram negative organisms [facility] Report Status 12/11/2012 Final [facility] URINE / Unknown 12/10/2012 9 :13 EDT 12/10/2012 10:25 EDT Russel Otto MD MICROBIOLOGY - GENERAL OR DERABLES Final Result Performing Organization Address [facility] de Phone Number [facility] [address] [place] [address] documented in this encounter Visit Diagnoses Not on filedocumented in this encounter Care Teams Motorcycle Technician Relationship Specialty Start Date End Date Barbara Conway NP [address] [place] [address] PCP - General 08/14/08 07/22/13 documented as of this encounter
--- OUTSIDE RECORDS SUMMARY | 2024-03-18 22:13 | XMS_ITS | Encounter Summary ---
Author Organization [facility] Address [address] [place] [address] Care Team Providers Care Note Teller Name Role Phone Barbara Conway REFERENCE ASSISTANT Primary Care Provider [phone] Reason for Referral * (Routine) - Closed Specialty Diagnoses / Procedures Referred By Contac t Referred To Contact Diagnoses Special screening for osteoporosis Asymptomatic postmenopausal status (age-related) (natural) Procedures DXA-DUAL XRAY ABSORPTIOMETRY FOR BONE DENSITY Barbara Conway NP [address] [place] [address] Phone: tel: fax: Referral ID Status Reason Start Date Expiration Date Visits Re quested Visits Authorized [id number] Closed 02/28/2014 1 1 Encounter Details Date Type Department Care Team (Late st Contact Info) Description 02/11/2014 Orders Only [facility] Osteoporosis - Main [place] [address] [place], [place] [phone] Barbara Conway NP [address] [place] [address] Special screening for osteoporosis (Primary Dx); Asymptomatic postmenopausal status (age-related) (natural) Social History Tobacco Use Types Packs/Day Years [...] Hospital Encounter [facility] OR [address] [place] [address] [phone] Vishal Castillo MD [address] [place] [phone] 03/27/2024 14:25 EST - 03/27/2024 17:55 EST Surgery [facility] OR [address] [place] [address] [phone] Vishal Castillo MD [address] [place] [phone] Left Reverse Total Shoulder Arthroplasty [26241 (CPT??)] 04/08/2024 15:30 EST Post-op Visit [facility] Hand & Upper Extremity Program - [address] [address] Vishal Castillo MD [address] [place] [phone] Scheduled Procedures Name Priority Associated Diagnoses Date/Ti me ARTHROPLASTY, SHOULDER, TOTAL Left rotator cuff tear arthropathy 03/27/2024 14:25 EST documented as of this encounter Results * DXA-DUAL XRAY ABSORPTIOMETRY FOR BONE DENSITY (03/17/2014 14:06 EST) DEXA Bone Density [facility] DEXA Bone Density, External [facility] Anatomical Region Laterality Modality Other 03/17/2014 14:0 6 EST us Barbara Conway NP IMG DEXA ORDERABLES Final Res ult documented in this encounter Visit Diagnoses Diagnosis Special screening for osteoporosis- Primary Asymptomatic postmenopausal status (age-related) (natural) Left rotator cuff tear arthropathy documented in this encounter Care Teams Note Teller Relationship Specialty Start Date End Date Barbara Conway, REFERENCE ASSISTANT [address] [place] [address] PCP - General 08/19/13 documented as of this encounter
--- OUTSIDE RECORDS SUMMARY | 2024-03-18 22:13 | XMS_ITS | Encounter Summary ---
Author Organization [facility] Address [address] [place] [address] Care Team Providers Care Mentally Retarded Teacher Name Role Phone Barbara Conway OREMAN Primary Care Provider [phone] Reason for Visit * Reason Onset Date Comments Other 06/26/2013 returning nurse call Encounter Details Date Type Department Care Team (Late st Contact Info) Description 06/26/2013 Telephone [facility] General Surgery - [facility] [address] [place], [place] [id number] Arnel Oliva MD [address] [facility], Level [address] [place] [address] Other (returning nurse call) Social History Tobacco Use Types Packs/Day Years [...] Entry Date Author Yes 01/04/2013 20:00 EDT Christohper Elmore RN documented in this encounter Miscellaneous Notes * Telephone Encounter - Brittany Barth RN - 06/26/2013 0913 EST Patient is calling, she had a message on her cell phone to call to review her prep for colonoscopy.She is scheduled for a colonoscopy with Dr Oliva on 07/24/13. Her golytely prep is ordered at the [facility] in [facility] and she has confirmed it is there and she has her colonoscopy booklet with the directions and she will keep the appointment. documented in this encounter Plan of Treatment Upcoming Encounters Date Type Department Care Team (Latest Contact Info) Description 03/27/2024 14:25 EST Hospital Encounter [facility] [place] [address] [place] [address] [phone] Vishal Castillo MD [address] [place] [phone] 03/27/2024 14:25 EST - 03/27/2024 17:55 EST Surgery [facility] OR [address] [place] [address] [phone] Vishal Castillo MD [address] [place] [phone] Left Reverse Total Shoulder Arthroplasty [30712 (CPT??)] 04/08/2024 15:30 EST Post-op Visit [facility] Hand & Upper Extremity Program - [address] [place] [address] Vishal Castillo MD [address] [place] [phone] Scheduled Procedures Name Priority Associated Diagnoses Date/Ti me ARTHROPLASTY, SHOULDER, TOTAL Left rotator cuff tear arthropathy 03/27/2024 14:25 EST documented as of this encounter Visit Diagnoses Not on filedocumented in this encounter Care Teams Mentally Retarded Teacher Relationship Specialty Start Date End Date Barbara Conway NP [address] [place] [address] PCP - General 08/14/08 07/22/13 documented as of this encounter
--- OUTSIDE RECORDS SUMMARY | 2024-03-18 22:13 | XMS_ITS | Encounter Summary ---
Author Organization [facility] Address [address] [place] [address] Care Team Providers Care Audience Coordinator Name Role Phone Barbara Conway CLINICAL APPEALS RN Primary Care Provider [phone] Encounter Details Date Type Department Care Team (Latest Contact Info) Description 01/12/2012 12:18 EDT - 01/12/2012 12:20 EDT Hospital Encounter [address] [address] Barbara Conway, CLINICAL APPEALS RN [address] [place] [phone] Discharge Disposition: Home or Self Care Social [...] mouth daily. Reported on 08/31/2016 04/30/2007 0 [place]-3 Fatty Acids-Vitamin E (FISH OIL) 1,000 mg [...] Description 03/27/2024 14:25 EST Hospital Encounter [facility] OR [address] [place] [address] [phone] Vishal Castillo MD [address] [place] [phone] 03/27/2024 14:25 EST - 03/27/2024 17:55 EST Surgery [facility] OR [address] [place] [address] [phone] Vishal Castillo MD [address] [place] [phone] Left Reverse Total Shoulder Arthroplasty [98223 (CPT??)] 04/08/2024 15:30 EST Post-op Visit [facility] Hand & Upper Extremity Program - [address] [place] [address] Vishal Castillo MD [address] [place] [phone] Scheduled Procedures Name Priority Associated Diagnoses Date/Ti me ARTHROPLASTY, SHOULDER, TOTAL Left rotator cuff tear arthropathy 03/27/2024 14:25 EST documented as of this encounter Visit Diagnoses Not on filedocumented in this encounter Care Teams Audience Coordinator Relationship Specialty Start Date End Date Barbara Conway NP 4 [place] [address] PCP - General 08/14/08 07/22/13 documented as of this encounter
--- OUTSIDE RECORDS SUMMARY | 2024-03-18 22:14 | XMS_ITS | Encounter Summary ---
Author Organization [facility] Address [address] [place] [address] Care Team Providers Care Forging Machine Hand Name Role Phone Barbara Conway Myla CASTING ROOM OPERATOR Primary Care Provider [phone] Encounter Details Date Type Department Care Team (Late st Contact Info) Description 07/13/2011 Phlebotomy Only [address] [phone] Concrete Boom Pump Operator, Outpatient Social History Tobacco Use Types Packs/Day [...] 03/27/2024 14:25 EST Hospital Encounter [facility] OR [address] [place] [address] [phone] Vishal Castillo MD [address] [place] [phone] 03/27/2024 14:25 EST - 03/27/2024 17:55 EST Surgery [facility] OR [address] [place] [address] [phone] Vishal Castillo MD [address] [place] [phone] Left Reverse Total Shoulder Arthroplasty [84964 (CPT??)] 04/08/2024 15:30 EST Post-op Visit [facility] Hand & Upper Extremity Program - [facility] [address] [place] [address] Vishal Castillo MD [address] [place] [phone] Scheduled Procedures Name Priority Associated Diagnoses Date/Ti me ARTHROPLASTY, SHOULDER, TOTAL Left rotator cuff tear arthropathy 03/27/2024 14:25 EST documented as of this encounter Visit Diagnoses Not on filedocumented in this encounter Care Teams Forging Machine Hand Relationship Specialty Start Date End Date Barbara Conway, CASTING ROOM OPERATOR [address] [place] [address] PCP - General 08/14/08 07/22/13 documented as of this encounter
--- OUTSIDE RECORDS SUMMARY | 2024-03-18 22:14 | XMS_ITS | Encounter Summary ---
Author Organization [facility] Address [address] [place] [address] Care Team Providers Care Business Transformation Manager Name Role Phone Barbara Conway LAB TECHNICIAN Primary Care Provider [phone] Encounter Details Date Type Department Care Team (Latest Contact Info) Description 07/13/2011 9:43 EDT - 07/13/2011 9:46 EDT Hospital Encounter [address] [address] Barbara Conway, LAB TECHNICIAN [address] [place], [place] 113[address] Discharge Disposition: Home or Self Care Social [...] mouth daily. Reported on 08/31/2016 04/30/2007 0 [place]-3 Fatty Acids-Vitamin E (FISH OIL) 1,000 mg [...] 03/27/2024 14:25 EST Hospital Encounter [facility] OR [address] [place] [address] [phone] Vishal Castillo MD [address] [place] [phone] 03/27/2024 14:25 EST - 03/27/2024 17:55 EST Surgery [facility] OR [address] [place] [address] Vishal Castillo MD [address] [place] [phone] Left Reverse Total Shoulder Arthroplasty [99462 (CPT??)] 04/08/2024 15:30 EST Post-op Visit [facility] Hand & Upper Extremity Program - [address] [phone] Vishal Castillo MD [address] [place] [phone] Pending Results Name Type Priority Associated Diagnoses Date /Time OUTSIDE CD - PLAIN FILM [facility] Imaging 08/19/2011 8:18 EDT Scheduled Orders Name Type Priority Associated Diagnoses Orde r Schedule OUTSIDE CD - PLAIN FILM MSK Imaging For medications that can be administered at any time during the hospitalization for visit such as immunizations. for 1 Occurrences starting 08/19/2011 Scheduled Procedures Name Priority Associated Diagnoses Date/Ti me ARTHROPLASTY, SHOULDER, TOTAL Left rotator cuff tear arthropathy 03/27/2024 14:25 EST documented as of this encounter Visit Diagnoses Not on filedocumented in this encounter Care Teams Business Transformation Manager Relationship Specialty Start Date End Date Barbara Conway NP [address] [place] [address] PCP - General 08/14/08 07/22/13 documented as of this encounter
--- OUTSIDE RECORDS SUMMARY | 2024-03-18 22:14 | XMS_ITS | Encounter Summary ---
Author Organization [facility] Address [address] [place] [address] Care Team Providers Care Sheet Finisher Name Role Phone JuanBarbara whitney Myla SALESPERSON SHEET MUSIC Primary Care Provider [phone] Reason for Visit * Reason Comments Follow-up 1 yr f/u CEA Encounter Details Date Type Department Care Team (Late st Contact Info) Description 04/29/2011 10:30 EST Office Visit [facility] General Surgery - [address] [phone] Arnel Oliva MD [address] [place] [address], [address] [place] [address] Personal history of colonic polyps [...] Progress Notes * Arnel Oliva MD - 04/29/2011 1015 EST 5 yrs s/p TEM for malig rectal polyp compl by AV fist. Now doing well no signs recurrence. Min sx from fistula ROS x 10 neg Pe Const normal abd benign no masses; skin no rashes Groin no LNs Rectal no masses AV fist unchanged Doing well 5 yrs s/p TEM for malig polyp check CEA today. No more CEAs colo 2 yrs documented in this encounter Plan of Treatment Upcoming Encounters Date Type Department Care Team (Latest Contact Info) Description 03/27/2024 14:25 EST Hospital Encounter [facility] OR [address] [place] [address] [phone] Vishal Castillo MD [address] [place] [phone] 03/27/2024 14:25 EST - 03/27/2024 17:55 EST Surgery [facility] OR [address] [place] [address] [phone] Vishal Castillo MD [address] [place] [phone] Left Reverse Total Shoulder Arthroplasty [85617 (CPT??)] 04/08/2024 15:30 EST Post-op Visit [facility] Hand & Upper Extremity Program - [address] [address] Vishal Castillo MD [address] [place] [phone] Scheduled Procedures Name Priority Associated Diagnoses Date/Ti me ARTHROPLASTY, SHOULDER, TOTAL Left rotator cuff tear arthropathy 03/27/2024 14:25 EST documented as of this encounter Visit Diagnoses Diagnosis Personal history of colonic polyps- Primary Left rotator cuff tear arthropathy documented in this encounter Care Teams Sheet Finisher Relationship Specialty Start Date End Date Barbara Conway NP [address] [place], [place] [address] PCP - General 08/14/08 07/22/13 documented as of this encounter
--- OUTSIDE RECORDS SUMMARY | 2024-03-18 22:14 | XMS_ITS | Encounter Summary ---
Author Organization [facility] Address [address] [place] [address] Care Team Providers Care Auto Damage Trainee Name Role Phone Juantessjo annBarbara Myla SUPERVISOR CURED MEATS Primary Care Provider [phone] Reason for Visit * Reason Onset Date Comments Prior Auth, Other (i.e. radiology, etc.) 011 Encounter Details Date Type Department Care Team (Late st Contact Info) Description 05/03/[address] [facility] GENERAL SURGERY [address] [place], [place] [phone] Arnel Oliva MD 111 [facility], [facility] [address] [place] [address] Prior Auth, Other (i.e. radiology, etc.) Social History Tobacco Use Types Packs/Day Years Used Date Smoking Tobacco: Never Assessed Comments Unknown Sex and Gender Information Value Date Recorded Sex Assigned at Female 03/08/2024 18:30 EST Legal Sex Female 18:30 EST Gender Identity Female 05/28/2019 8:56 EST Sexual Orientation Not on file documented as of this encounter Miscellaneous Notes * Telephone Encounter - Peg Thurman - 05/03/2010 0819 EST DOS - 04/30/2010 - CPT - 82385 - Rectal ID - [facility]/Jong BC/BS of [facility] - [id number] documented in this encounter Plan of Treatment Upcoming Encounters Date Type Department Care Team (Latest Contact Info) Description 03/27/2024 14:25 EST Hospital Encounter [facility] OR [address] [place] [address] [phone] Vishal Castillo MD [address] [place] [phone] 03/27/2024 14:25 EST - 03/27/2024 17:55 EST Surgery [facility] OR [address] [place] [address] Vishal Castillo MD [address] [place] [phone] Left Reverse Total Shoulder Arthroplasty [74749 (CPT??)] 04/08/2024 15:30 EST Post-op Visit [facility] Hand & Upper Extremity Program - [address] [address] Vishal Castillo MD [address] [place] [phone] Scheduled Procedures Name Priority Associated Diagnoses Date/Ti me ARTHROPLASTY, SHOULDER, TOTAL Left rotator cuff tear arthropathy 03/27/2024 14:25 EST documented as of this encounter Visit Diagnoses Not on filedocumented in this encounter Care Teams Auto Damage Trainee Relationship Specialty Start Date End Date Barbara Conway NP [address] [place] [address] PCP - General 08/14/08 07/22/13 documented as of this encounter
--- OUTSIDE RECORDS SUMMARY | 2024-03-18 22:14 | XMS_ITS | Encounter Summary ---
Author Organization [facility] Address [address] [place] [address] Care Team Providers Care Wiener Packer Name Role Phone Barbara Conway Myla BEATER DUMPER Primary Care Provider [phone] Reason for Visit * Reason Comments Follow-up colo Encounter Details Date Type Department Care Team (Late st Contact Info) Description 04/30/2010 9:45 EST Office Visit [facility] General Surgery - [facility] [address] [place] [address] Arnel Oliva MD 111 [facility], Level [address] [place] [address] Personal history of rectal cancer (Primary Dx) Social History Tobacco Use Types Packs/Day Years Used Date Smoking Tobacco: Never Assessed Comments Unknown Sex and Gender Information Value Date Recorded Sex Assigned at Female 03/08/2024 18:30 EST Legal Sex Female 18:30 EST Gender Identity Female 05/28/2019 8:56 EST Sexual Orientation Not on file documented as of this encounter Progress Notes * Arnel Oliva MD - 08/19/2010 0941 EDT DIVISION OF GENERAL SURGERY August 16, 2010 [place] [address] [place] [address] Dear Aretha: Good news! Your CAT scan is entirely fine. No evidence of any recurrent cancer whatsoever. You do have a cyst in your liver which you have had in the past and is nothing to worry about. You also havesome small nodules in the bottom of your lungs, which you have had again since 2006 and are nothingto worry about. Most importantly, there are no signs of any recurrent rectal cancer. This is, of cou rse, all great news and what we hoped for. I hope you are continuing to do well and I look forward to seeing you at your next scheduled visit. If I may be of any further assistance, please do not hesitate to contact me. Yours truly, Electronically Signed by Arnel Oliva MD, FACS 08/19/2010 09:41 Miguel Angel Oliva MD, [id number] A Cataldo, MD, FACS - Arnel Oliva MD, FACS - JOSE LUIS Job ID: Doc ID: [id number] Ext Doc ID: [id number] cc: The Patient * Arnel Oliva MD - 05/26/2010 1548 EST DIVISION OF GENERAL SURGERY May 14, 2010 [place] [address] [place] [phone] Dear Aretha: Good news ! Your CEA is less than 1.9. This is as low as it can be and indicative of no recurrent colorectal cancer. I hope you continue to do well and I look forward to seeing you at your next scheduled visit. PS: Congrats again on the good news. Yours truly, Electronically Signed by Arnel Oliva MD, FACS 05/26/2010 15:48 Miguel Angel Oliva MD, [id number] A Cataldo, MD, FACS - Arnel Oliva MD, FACS - CB Job ID: Doc ID: [id number] Ext Doc ID: [id number] cc: The Patient * Arnel Oliva MD - 05/04/2010 1016 EST DIVISION OF GENERAL SURGERY PROGRESS/FOLLOWUP NOTE - 04/30/2010 SUBJECTIVE: The patient is here in followup 5 years after TEM for early rectal cancer. She has had a stable anovaginal fistula, which is causing her no symptoms. She is otherwise doing very well withno complaints. Please see PRISM note for appropriation information. OBJECTIVE: Abdomen is soft, nontender, no palpable masses. Skin exam reveals no rashes. Groin exam reveals no lymphadenopathy. External anal exam is normal. Digital exam reveals a small anovaginal fistula, which is unchanged. There is no mass. IMPRESSION: Five years status post TEM for T1 rectal cancer. No signs of recurrence. RECOMMENDATION: CEA today. CT scan of abdomen and pelvis as part of the 5-year followup. The patient is due for colonoscopy in 2012, in the spring. The patient wishes to follow up once a year with CEA with me and we will plan this. Electronically Signed by Arnel Oliva MD, FACS 05/04/2010 10:16 Arnel Oliva MD, FACS [phone] - Arnel Oliva MD, FACS - BARBARAP Job ID: SM Doc ID: [id number] Ext Doc ID: [id number] cc: Barbara Conway NP * Arnel Oliva MD - 04/30/2010 0930 EST This office note has been dictated. documented in this encounter Plan of Treatment Upcoming Encounters Date Type Department Care Team (Latest Contact Info) Description 03/27/2024 14:25 EST Hospital Encounter [facility] OR [address] [place] [address] Vishal Castillo MD [address] [place] [phone] 03/27/2024 14:25 EST - 03/27/2024 17:55 EST Surgery [facility] OR [address] [place], [place] [phone] Vishal Castillo MD [address] [place] [phone] Left Reverse Total Shoulder Arthroplasty [10955 (CPT??)] 04/08/2024 15:30 EST Post-op Visit [facility] Hand & Upper Extremity Program - [address] [place] [address] Vishal Castillo MD [address] [place] [phone] Scheduled Procedures Name Priority Associated Diagnoses Date/Ti me ARTHROPLASTY, SHOULDER, TOTAL Left rotator cuff tear arthropathy 03/27/2024 14:25 EST documented as of this encounter Results * CEA (04/30/2010 10:04 EST) CEA 1.9 ng/ml [facility] Comment: % Distribution of CEA (ng/ml) 0-2.5 in 98.2% of non-smokers and 87.3% of smokers 2.6-5.0 in 1.8% of non-smokers and 8.0% of smokers 5.1-10.1 in 4.7% of smokers Serum CEA concentration should not be interpreted as absolute evidence for the presence or absence of malignant disease. ?? Assayed utilizing [employer] chemiluminescent technology. Values obtained by using different assay methods cannot be used interchangeably. PREVIOUS CEA RESULT ON 09/16/09 WAS 2.0 AND ON 03/13/09 WAS 1.8 Blood specimen (specimen) 04/30/2010 10:04 EST 04/30/2010 10:15 EST us Arnel Oliva MD CHEMISTRY & BLOOD GAS ORDERAB LES Final Result [facility] [address] [place] [address] documented in this encounter Visit Diagnoses Diagnosis Personal history of rectal cancer- Primary Personal history of malignant neoplasm of rectum, rectosigmoid junction, and anus Left rotator cuff tear arthropathy documented in this encounter Historical Medications * This list may reflect changes made after this encounter. omeprazole (PRILOSEC) 40 mg capsule Take 1 Capsule by mouth every morning. 04/30/2008 metFORMIN (GLUCOPHAGE) 500 mg tablet Take 1 Tablet by mouth 2 times daily with breakfast and dinner. 12/29/2009 lisinopriL (PRINIVIL) 20 mg tablet Take 1 Tablet by mouth every morning. 04/30/1987 BETA-CAROTENE,A, W-C & E (ANTI-OXIDANT ORAL) Take by mouth daily. Reported on 05/02/2016 04/30/2007 0 [place]-3 Fatty Acids-Vitamin E (FISH OIL) 1,000 mg Cap Take by mouth daily. 04/30/2007 3 multivitamin (DAILY VITAMIN) per tablet Take 1 Tab by mouth daily. 04/30/2007 0 simvastatin (ZOCOR) 80 mg tablet Take 80 mg by mouth at bedtime. 04/30/2008 3 nitrofurantoin (MACRODANTIN) 100 mg capsule Take 100 mg by mouth daily. Reported on 08/31/2016 04/30/2007 0 docusate sodium (COLACE) 100 mg capsule Take 100 mg by mouth as needed. 04/30/2006 3 Calcium-Cholecal ciferol, D3, (CALCIUM 600 + D,3,) 600-200 mg-unit Cap Take by mouth daily. 04/30/1999 0 atenolol (TENORMIN) 100 mg tablet Take 50 mg by mouth daily. 04/30/2008 3 aspirin 81 mg EC tablet Take 81 mg by mouth daily. 04/30/1986 3 added in this encounter Care Teams Wiener Packer Relationship Specialty Start Date End Date Barbara Conway NP [address] [place] [address] PCP - General 08/14/08 07/22/13 documented as of this encounter
--- OUTSIDE RECORDS SUMMARY | 2024-03-18 22:14 | XMS_ITS | Encounter Summary ---
Author Organization [facility] Address [address] [place] [address] Care Team Providers Care Strap Machine Operator Automatic Name Role Phone Barbara Conway Myla CURATOR ZOOLOGICAL MUSEUM Primary Care Provider [phone] Encounter Details Date Type Department Care Team (Late st Contact Info) Description 08/14/2009 8:56 EDT - 08/14/2009 23:59 EDT Hospital Encounter [facility] [place] [address] [place] [address] Kristina Greenwood MD Discharge Disposition: Home or Self Care Social [...] 1 Tablet by mouth every morning. 04/30/1987 omeprazole (PRILOSEC) 40 mg capsule Take 1 Capsule by mouth every morning. 04/30/2008 aspirin 81 mg EC tablet Take 81 mg by mouth daily. 04/30/1986 01/06/2013 atenolol (TENORMIN) 100 mg tablet Take 50 mg by mouth daily. 04/30/2008 12/21/2012 BETA-CAROTENE,A, W-C & E (ANTI-OXIDANT ORAL) Take by mouth daily. Reported on 05/02/2016 04/30/2007 10/24/2019 Calcium-Cholecal ciferol, D3, (CALCIUM 600 + D,3,) 600-200 mg-unit Cap Take by mouth daily. 04/30/1999 10/24/2019 docusate sodium (COLACE) 100 mg capsule Take 100 mg by mouth as needed. 04/30/2006 01/06/2013 multivitamin (DAILY VITAMIN) per tablet Take 1 Tab by mouth daily. 04/30/2007 10/24/2019 nitrofurantoin (MACRODANTIN) 100 mg capsule Take 100 mg by mouth daily. Reported on 08/31/2016 04/30/2007 10/24/2019 [place]-3 Fatty Acids-Vitamin E (FISH OIL) 1,000 mg Cap Take by mouth daily. 04/30/2007 01/06/2013 simvastatin (ZOCOR) 80 mg tablet Take 80 mg by mouth at bedtime. 04/30/2008 12/21/2012 documented as of this encounter Discharge Disposition Disposition Code Departure Means Destination Home or Self Mcc documented in this encounter Plan of Treatment Upcoming Encounters Date Type Department Care Team (Latest Contact Info) Description 03/27/2024 14:25 EST Hospital Encounter [facility] OR [address] [place] [address] [phone] Vishal Castillo MD [address] [place] [phone] 03/27/2024 14:25 EST - 03/27/2024 17:55 EST Surgery [facility] OR [address] [place] [address] [phone] Vishal Castillo MD [address] [place] [phone] Left Reverse Total Shoulder Arthroplasty [20899 (CPT??)] 04/08/2024 15:30 EST Post-op Visit [facility] Hand & Upper Extremity Program - [facility] [place] [address] Vishal Castillo MD [address] [place] [phone] Scheduled Procedures Name Priority Associated Diagnoses Date/Ti me ARTHROPLASTY, SHOULDER, TOTAL Left rotator cuff tear arthropathy 03/27/2024 14:25 EST documented as of this encounter Visit Diagnoses Not on filedocumented in this encounter Care Teams Strap Machine Operator Automatic Relationship Specialty Start Date End Date Barbara Conway, CURATOR ZOOLOGICAL MUSEUM [address] [place] [address] PCP - General 08/14/08 07/22/13 documented as of this encounter
--- OUTSIDE RECORDS SUMMARY | 2024-03-18 22:14 | XMS_ITS | Encounter Summary ---
Author Organization [facility] Address [address] [place] [address] Care Team Providers Care Quarry Plug And Feather Driller Name Role Phone Barbara Conway MOTEL KEEPER Primary Care Provider [phone] Encounter Details Date Type Department Care Team (Late st Contact Info) Description 11/24/2008 Orders Only [facility] [phone] Iraida Crews MD Social History Tobacco Use Types Packs/Day Years [...] Hospital Encounter [facility] OR [address] [place] [address] [phone] Vishal Castillo MD [address] [place] [phone] 03/27/2024 14:25 EST - 03/27/2024 17:55 EST Surgery [facility] OR [address] [place] [address] [phone] Vishal Castillo MD [address] [place] [phone] Left Reverse Total Shoulder Arthroplasty [14542 (CPT??)] 04/08/2024 15:30 EST Post-op Visit [facility] Hand & Upper Extremity Program - [facility] [address] [facility] [place] [address] Vishal Castillo MD [address] [place] [phone] Scheduled Procedures Name Priority Associated Diagnoses Date/Ti me ARTHROPLASTY, SHOULDER, TOTAL Left rotator cuff tear arthropathy 03/27/2024 14:25 EST documented as of this encounter Procedures Procedure Name Priority Date/Time Associated Diagnosis Comments RAD US GUIDANCE BIOPSY FNA THYROID 11/24/2008 14:33 EDT documented in this encounter Results * RAD US GUIDANCE BIOPSY FNA THYROID (11/24/2008 14:33 EDT) Anatomical Region Laterality Modality Other 11/24/2008 14:3 3 EDT 02/27/2009 14:49 EST Narrative 02/27/2009 14:49 EST Ultrasound guided fine needle aspiration thyroid November 24, 2008 This is a delayed dictation as the original dictation has apparently been lost. ??Six passes were made into a predominantly cystic lesion in the right lobe of the thyroid. Material was submitted for cytology. No complication was encountered. Procedure Note 02/27/2009 Ultrasound guided fine needle aspiration thyroid November 24, 2008 This is a delayed dictation as the original dictation has apparently been lost. Six passes were made into a predominantly cystic lesion in the right lobe of the thyroid. Material was submitted for cytology. No complication was encountered. us Iraida Crews MD IMG US ORDERABLES Final Re sult documented in this encounter Visit Diagnoses Not on filedocumented in this encounter Care Teams Quarry Plug And Feather Driller Relationship Specialty Start Date End Date Barbara Conway NP [address] [place] [address] PCP - General 08/14/08 07/22/13 documented as of this encounter
--- OUTSIDE RECORDS SUMMARY | 2024-03-18 22:14 | XMS_ITS | Encounter Summary ---
Author Organization [facility] Address [address] [place] [address] Care Team Providers Care Mushroom Farmer Name Role Phone Barbara Conway Myla BUDGET CONSULTANT Primary Care Provider [phone] Encounter Details Date Type Department Care Team (Latest Contact Info) Description 10/21/2008 12:41 EDT - 10/21/2008 23:[address] [facility] [address] [place] [address] Iraida Crews MD Discharge Disposition: Home or Self Care [...] mouth daily. Reported on 08/31/2016 04/30/2007 10/24/2019 [place]-3 Fatty Acids-Vitamin E (FISH OIL) 1,000 mg Cap Take by mouth daily. 04/30/2007 01/06/2013 simvastatin (ZOCOR) 80 mg tablet Take 80 mg by mouth at bedtime. 04/30/2008 12/21/2012 documented as of this encounter Discharge Disposition Disposition Code Departure Means Destination Home or Self Correction documented in this encounter Plan of Treatment Upcoming Encounters Date Type Department Care Team (Latest Contact Info) Description 03/27/2024 14:25 EST Hospital Encounter [facility] OR [address] [place] [address] [phone] Vishal Castillo MD [address] [place] [phone] 03/27/2024 14:25 EST - 03/27/2024 17:55 EST Surgery [facility] OR [address] [place] [address] [phone] Vishal Castillo MD [address] [place] [phone] Left Reverse Total Shoulder Arthroplasty [39561 (CPT??)] 04/08/2024 15:30 EST Post-op Visit [facility] Hand & Upper Extremity Program - [facility] [place] [address] Vishal Castillo MD [address] [place] [phone] (work) Scheduled Procedures Name Priority Associated Diagnoses Date/Ti me ARTHROPLASTY, SHOULDER, TOTAL Left rotator cuff tear arthropathy 03/27/2024 14:25 EST documented as of this encounter Procedures Procedure Name Priority Date/Time Associated Diagnosis Comments CYTOPATHOLOGY Routine 11/24/2008 0:00 EDT documented in this encounter Results * CYTOPATHOLOGY (11/24/2008 0:00 EDT) Pathology Report: CYTOPATHOLOGY REPORT ? Reports generated via electronic interface contain original data; ? however they are lacking the format of the original report. ? Caution should be taken when reading/interpreti ng unformatted reports. ? Name: ? BRYCE HILL ? Accession #: ? [id number] ? : ? 1945 (Age: 63) ??F ?Collect Date: ? 11/24/2008 ? Location: ? [facility] ? Receive Date: ? 11/24/2008 ? Provider: ? IRAIDA A HASELTON MD ? Copy to: ?BARBARA WOHLBERG BUDGET CONSULTANT ? JARVIS V PREM MD ? PETER A TONI MD ? CYTOLOGIC DIAGNOSIS: ? Thyroid, left, ultrasound guided fine needle aspiration: ? - Benign thyroid nodule. ??See comment. ? COMMENT: ? The specimen consists of a moderate number of bland follicular cells in a ?? predominantly macrofollicular pattern. ??There is abundant colloid present in the background. ??No features of papillary thyroid carcinoma are identified. ??( ?? Dennis)/mpl ? Document reviewed and electronically signed by: ? Baldo Collins MD ? Report Date: ??11/25/2008 12:10 ? By the signature above, the attending physician certifies that he/she has ? personally conducted a gross and/or microscopic examination of the described ? specimens and rendered or confirmed the above diagnosis. ? Specimen Type: ? Thyroid, Fine Needle Aspiration, Left ? Clinical History: ? 1.2 cm complex nodule with calcification. ??clinical diagnosis code: ??241 ? Rapid Interpretation: ? Thyroid, left, ultrasound guided fine needle aspiration: ? Evaluation #1: ??Pass 1-3: ??Scant follicular cells. ? Evaluation #2: ??Pass 4-6: ??Scant follicular cells. ? (Dr. Baldo Collins, ([facility] CT (ASCP); 11/24/2008 at 2:10 PM) ? Gross Description: ? 6 fixed prepared slides, 6 air dried prepared slides, and 1 tube of Cytolyt were received and processed by selective cellular enhancement technique. ? End of Report ? [facility] 11/24/2008 11/24/2008 14: 24 EDT us Iraida Crews MD PATHOLOGY ORDERABLES Final Result Performing Organization Address City/State/[facility] Co de Phone Number [facility] [address] [place] [address] documented in this encounter Visit Diagnoses Not on filedocumented in this encounter Care Teams Mushroom Farmer Relationship Specialty Start Date End Date Barbara Conway, BUDGET CONSULTANT [address] [place] [address] PCP - General 08/14/08 07/22/13 documented as of this encounter
--- OUTSIDE RECORDS SUMMARY | 2024-03-18 22:14 | XMS_ITS | Encounter Summary ---
Author Organization [facility] Address [address] [place] [address] Care Team Providers Care Class C Driver Name Role Phone ZoraidaBarbara Myla TANK FARM OPERATOR Primary Care Provider [phone] Encounter Details Date Type Department Care Team (Late st Contact Info) Description 03/13/2009 10:55 EST - 03/13/2009 23:59 EST Hospital Encounter [facility] [address] [place] [address] Arnel Oliva MD [address] [facility], [address] [place] [address] Discharge Disposition: Home or Self [...] mouth daily. Reported on 08/31/2016 04/30/2007 10/24/2019 [place]-3 Fatty Acids-Vitamin E (FISH OIL) 1,000 mg [...] Hospital Encounter [facility] OR [address] [place] [address] [phone] Vishal Castillo MD [address] [place] [phone] 03/27/2024 14:25 EST - 03/27/2024 17:55 EST Surgery [facility] OR [address] [place] [address] [phone] Vishal Castillo MD [address] [place] [phone] Left Reverse Total Shoulder Arthroplasty [60740 (CPT??)] 04/08/2024 15:30 EST Post-op Visit [facility] Hand & Upper Extremity Program - [place] [address] Vishal Castillo MD [address] [place] [phone] Scheduled Procedures Name Priority Associated Diagnoses Date/Ti me ARTHROPLASTY, SHOULDER, TOTAL Left rotator cuff tear arthropathy 03/27/2024 14:25 EST documented as of this encounter Procedures Procedure Name Priority Date/Time Associated Diagnosis Comments COMPLETE BLOOD COUNT Routine 05/13/2009 8:15 EST BILIRUBIN DIRECT/INDIRECT Routine 05/13/2009 8:15 EST TSH Routine 05/13/2009 8:15 EST T4 FREE Routine 05/13/2009 8:15 EST HEMOGLOBIN A1C Routine 05/13/2009 8:15 EST LIPID PROFILE (INCLUDES CHOLESTEROL, TRIGLYCERIDES, HDL, LDL) Routine 05/13/2009 8:15 EST COMPREHENSIVE METABOLIC PANEL (CMP) Routine 05/13/2009 8:15 EST CEA Routine 03/13/2009 11:01 EST documented in this encounter Results * TSH (05/13/2009 8:15 EST) TSH 0.99 0.35 - 5.00 uIU/ml [facility] 05/13/2009 8:15 EST 05/13/2009 11:14 EST us Barbara Conway NP CHEMISTRY & BLOOD GAS ORDERAB LES Final Result [facility] [address] [place] [address] * LIPID PROFILE (INCLUDES CHOLESTEROL, TRIGLYCERIDES, HDL, LDL) (05/13/2009 8:15 EST) Cholesterol 192 mg/dl [facility] Comment: Desirable:<200 Borderline High:200-239 High:>tm=131 Triglycerides 81 35 - 160 mg/dl [facility] HDL 64 mg/dl [facility] Comment: Low:<40 High(Desirable):>or=60 LDL, Calculated 112 mg/dl [facility] Comment: Optimal:<100 Above optimal:100-129 Borderline High:130-159 High:160-189 Very High:>fb=140 Chol/HDL Ratio 3.0 [facility] Fasting? Yes [facility] 05/13/2009 8:15 EST 05/13/2009 11:14 EST Barbara Conway NP CHEMISTRY & BLOOD GAS ORDERAB LES Final Result Performing Organization Address [facility] de Phone Number [facility] [address] [place] [address] * HEMOGLOBIN A1C (05/13/2009 8:15 EST) Hemoglobin A1C 6.4 % [facility] Comment: Reference Range: <6% Normal Range ADA guidelines: The A1c goal for non adults in general is <7% The A1c goal for selected individual patients is as close to normal (<6%) as possible without significant hypoglycemia. Est Avg Glucose 137 mg/dl [facility] Comment: eAG represents the A1c result expressed as average glucose in mg/dl. 05/13/2009 8:15 EST 05/13/2009 11:14 EST Barbara Conway NP CHEMISTRY & BLOOD GAS ORDERAB LES Final Result Performing Organization Address [facility] de Phone Number [facility] [address] [place] [address] * T4 FREE (05/13/2009 8:15 EST) Free T4 1.0 0.8 - 1.8 ng/dL [facility] 05/13/2009 8:15 EST 05/13/2009 11:14 EST Barbara Conway NP CHEMISTRY & BLOOD GAS ORDERAB LES Final Result Performing Organization Address City/[facility] [address] [facility]/ZIP Co de Phone Number [facility] [address] [place] [address] * DIRECT BILIRUBIN (05/13/2009 8:15 EST) [facility] Conjugated Bilirubin 0.0 0.0 - 0.3 mg/dl [facility] Unconjugated Bilirubin 0.5 0.1 - 1.1 mg/dl [facility] 05/13/2009 8:15 EST 05/13/2009 11:14 EST us Barbara Conway TANK FARM OPERATOR CHEMISTRY & BLOOD GAS ORDERAB LES Final Result Performing Organization Address [facility] Co de Phone Number [facility] [address] [place] [address] * (ABNORMAL) COMPREHENSIVE METABOLIC PANEL (05/13/2009 8:15 EST) [facility] Potassium 4.3 3.5 - 5.0 mEq/L [facility] Sodium 142 136 - 145 mEq/L [facility] Chloride 105 96 - 110 mEq/L [facility] CO2 27 24 - 32 mEq/L [facility] Alkaline Phosphatase 87 38 - 126 U/L [facility] Bilirubin, Total <0.5 0.2 - 1.3 mg/dl [facility] AST 24 15 - 46 U/L [facility] ALT 24 9 - 52 U/L [facility] Albumin 4.2 3.4 - 4.9 g/dl [facility] Total Protein 7.0 6.5 - 8.3 g/dl [facility] Creatinine 0.80 0.7 - 1.5 mg/dl [facility] GFR, Calculated >60 ml/min/1.7 3m2 [facility] BUN 23 10 - 26 mg/dl [facility] Calcium 9.4 8.5 - 10.5 mg/dl [facility] Calculated Calcium 9.6 8.5 - 10.5 mg/dl [facility] Glucose, Serum 102(H) 70 - 100 mg/dl [facility] Fasting? Yes [facility] 05/13/2009 8:15 EST 05/13/2009 11:14 EST us Barbara Conway NP CHEMISTRY & BLOOD GAS ORDERAB LES Final Result Performing Organization Address City/[facility] Co de Phone Number [facility] [address] [place] [address] * (ABNORMAL) HEMAGRAM (05/13/2009 8:15 EST) WBC 4.44 4.0 - 12.4 K/cmm [facility] RBC 4.35 3.86 - 5.04 M/cmm [facility] Hemoglobin 11.9 11.6 - 15.2 gm/dl [facility] HCT 35.3 34.9 - 44.4 % [facility] MCV 81 81 - 98 fl [facility] MCH 27.4 26.7 - 33.3 pg [facility] MCHC 33.8 32.1 - 35.9 gm/dl [facility] PLT 278 141 - 320 K/cmm [facility] RDW-CV 14.7(H) 11.7 - 14.6 % [facility] 05/13/2009 8:15 EST 05/13/2009 11:14 EST us Barbara Conway TANK FARM OPERATOR HEMATOLOGY & PF4 ORDERABLES F inal Result Performing Organization Address [facility] Co de Phone Number [facility] [address] [place] [address] * CEA (03/13/2009 11:01 EST) CEA 1.8 ng/ml [facility] Comment: % Distribution of CEA (ng/ml) 0-2.5 in 98.2% of non-smokers and 87.3% of smokers 2.6-5.0 in 1.8% of non-smokers and 8.0% of smokers 5.1-10.1 in 4.7% of smokers Serum CEA concentration should not be interpreted as absolute evidence for the presence or absence of malignant disease. Assayed utilizing Cabify chemiluminescent technology. Values obtained by using different assay methods cannot be used interchangeably. PREVIOUS PSA WAS 2.1 ON 08/22/2008 Blood specimen (specimen) 03/13/2009 11:01 EST 03/13/2009 11:03 EST us Arnel Oliva MD CHEMISTRY & BLOOD GAS ORDERAB LES Final Result Performing Organization Address City/State/[facility] Co de Phone Number [facility] [address] [place] [address] documented in this encounter Visit Diagnoses Not on filedocumented in this encounter Care Teams Class C Driver Relationship Specialty Start Date End Date Barbara Conway NP [address] [place] [address] PCP - General 08/14/08 07/22/13 documented as of this encounter
--- OUTSIDE RECORDS SUMMARY | 2024-03-18 22:14 | XMS_ITS | Encounter Summary ---
Author Organization [facility] Address [address] [place] [address] Care Team Providers Care Honey Grader And Blender Name Role Phone Barbara Conway Myla MECHANICAL MAINTENANCE Primary Care Provider [phone] Reason for Visit * Reason Onset Date Comments Results 06/21/2011 CEA Encounter Details Date Type Department Care Team (Late st Contact Info) Description 06/21/2011 Telephone [facility] General Surgery - [facility] [address] [place], [place] [address] Arnel Oliva MD [address] [facility], [address] [place] [address] Results (CEA) Social History Tobacco Use Types Packs/Day Years Used Date Smoking Tobacco: Never Assessed Comments Unknown Sex and Gender Information Value Date Recorded Sex Assigned at Female 03/08/2024 18:30 EST Legal Sex Female 18:30 EST Gender Identity Female 05/28/2019 8:56 EST Sexual Orientation Not on file documented as of this encounter Miscellaneous Notes * Telephone Encounter - Sera Green RN - 06/21/2011 1011 EST Phone call to patient, patient aware of CEA results. documented in this encounter Plan of Treatment Upcoming Encounters Date Type Department Care Team (Latest Contact Info) Description 03/27/2024 14:25 EST Hospital Encounter [facility] OR [address] [place], [place] [phone] Vishal Castillo MD [address] [place] [phone] 03/27/2024 14:25 EST - 03/27/2024 17:55 EST Surgery [facility] OR [address] [place] [address] [phone] Vishal Castillo MD [address] [place] [phone] Left Reverse Total Shoulder Arthroplasty [07896 (CPT??)] 04/08/2024 15:30 EST Post-op Visit [facility] Hand & Upper Extremity Program - [address] [address] Vishal Castillo MD [address] [place] [phone] Scheduled Procedures Name Priority Associated Diagnoses Date/Ti me ARTHROPLASTY, SHOULDER, TOTAL Left rotator cuff tear arthropathy 03/27/2024 14:25 EST documented as of this encounter Visit Diagnoses Not on filedocumented in this encounter Care Teams Honey Grader And Blender Relationship Specialty Start Date End Date Barbara Conway NP [address] [place] [address] PCP - General 08/14/08 07/22/13 documented as of this encounter
--- OUTSIDE RECORDS SUMMARY | 2024-03-18 22:14 | XMS_ITS | Encounter Summary ---
Author Organization [facility] Address [address] [place] [address] Care Team Providers Care Leather Production Artisan Name Role Phone Barbara Conway CLAIMS ATTORNEY Primary Care Provider [phone] Encounter Details Date Type Department Care Team (Latest Contact Info) Description 10/08/2009 14:51 EDT - 10/08/2009 14:[address] [facility] - Other [address] [place] [address] Barbara Conway, CLAIMS ATTORNEY [address] [place], [place] [address] Discharge Disposition: Home or Self Care Social [...] mouth daily. Reported on 08/31/2016 04/30/2007 10/24/2019 [place]-3 Fatty Acids-Vitamin E (FISH OIL) 1,000 mg [...] Info) Description 03/27/2024 14:25 EST Hospital Encounter [facility] OR [address] [place] [address] [phone] Vishal Castillo MD [address] [place] [phone] 03/27/2024 14:25 EST - 03/27/2024 17:55 EST Surgery [facility] OR [address] [place] [address] Vishal Castillo MD [address] [place] [phone] Left Reverse Total Shoulder Arthroplasty [00085 (CPT??)] 04/08/2024 15:30 EST Post-op Visit [facility] Hand & Upper Extremity Program - [facility] [place] [address] Vishal Castillo MD [address] [place] [phone] Scheduled Procedures Name Priority Associated Diagnoses Date/Ti me ARTHROPLASTY, SHOULDER, TOTAL Left rotator cuff tear arthropathy 03/27/2024 14:25 EST documented as of this encounter Procedures Procedure Name Priority Date/Time Associated Diagnosis Comments BACTERIAL CULTURE, URINE Routine 10/16/2009 17:55 EDT documented in this encounter Results * BACTERIAL CULTURE, URINE (10/16/2009 17:55 EDT) Specimen Description Urine [facility] Result Mixed organisms, culture interpretation difficult. If patient has a chronic indwelling catheter and requires antibiotictreatme nt, consult laboratory for further testing. If clinically indicated and patient is not catheterized, consider recollecting sample via in and out catheter. [facility] Report Status Final 10/17/2009 [facility] 10/16/2009 17:5 5 EDT 10/16/2009 17:55 EDT us Kristina Greenwood MD MICROBIOLOGY - GENERAL OR DERABLES Final Result [facility] [address] [place] [address] documented in this encounter Visit Diagnoses Not on filedocumented in this encounter Care Teams Leather Production Artisan Relationship Specialty Start Date End Date Barbara Conway NP [address] [place] [address] PCP - General 08/14/08 07/22/13 documented as of this encounter
--- OUTSIDE RECORDS SUMMARY | 2024-03-18 22:14 | XMS_ITS | Encounter Summary ---
Author Organization [facility] Address [address] [place] [address] Care Team Providers Care Fruit Sprayer Name Role Phone Barbara Conway Myla WIND TURBINE DESIGN ENGINEER Primary Care Provider [phone] Encounter Details Date Type Department Care Team (Late st Contact Info) Description 10/16/2009 18:04 EDT - 10/16/2009 18:05 EDT Hospital Encounter [facility] - Other [address] [place] [address] Kristina Greenwood MD Discharge Disposition: Home or [...] mouth daily. Reported on 08/31/2016 04/30/2007 10/24/2019 [place]-3 Fatty Acids-Vitamin E (FISH OIL) 1,000 mg [...] Info) Description 03/27/2024 14:25 EST Hospital Encounter [facility] OR [address] [place] [address] [phone] Vishal Castillo MD [address] [place] [phone] 03/27/2024 14:25 EST - 03/27/2024 17:55 EST Surgery [facility] OR [address] [place] [address] [phone] Vishal Castillo MD [address] [place] [phone] Left Reverse Total Shoulder Arthroplasty [16671 (CPT??)] 04/08/2024 15:30 EST Post-op Visit [facility] Hand & Upper Extremity Program - [place] [address] [place] [address] Vishal Castillo MD [address] [place] [phone] Scheduled Procedures Name Priority Associated Diagnoses Date/Ti me ARTHROPLASTY, SHOULDER, TOTAL Left rotator cuff tear arthropathy 03/27/2024 14:25 EST documented as of this encounter Visit Diagnoses Not on filedocumented in this encounter Care Teams Fruit Sprayer Relationship Specialty Start Date End Date Barbara Conway, WIND TURBINE DESIGN ENGINEER [address] [place] [address] PCP - General 08/14/08 07/22/13 documented as of this encounter
--- OUTSIDE RECORDS SUMMARY | 2024-03-18 22:14 | XMS_ITS | Encounter Summary ---
Author Organization [facility] Address [address] [place] [address] Care Team Providers Care Tricot Knitter Name Role Phone Barbara Conway SPINNING FRAME CHANGER Primary Care Provider [phone] Encounter Details Date Type Department Care Team (Late st Contact Info) Description 11/03/2010 Results Only [facility] Laboratory Services - [facility] ([facility]) [address] [place] [address] [phone] Barbara Conway, SPINNING FRAME CHANGER [address] [place], [place] [address] Social History Tobacco Use Types Packs/Day Years [...] Info) Description 03/27/2024 14:25 EST Hospital Encounter [facility] OR [address] [place], [place] [phone] Vishal Castillo MD [address] [place] [phone] 03/27/2024 14:25 EST - 03/27/2024 17:55 EST Surgery [facility] OR [address] [place], [place] [phone] Vishal Castillo MD [address] [place] [phone] Left Reverse Total Shoulder Arthroplasty [84059 (CPT??)] 04/08/2024 15:30 EST Post-op Visit [facility] Hand & Upper Extremity Program - [address] [address] Vishal Castillo MD [address] [place] [address] Scheduled Procedures Name Priority Associated Diagnoses Date/Ti me ARTHROPLASTY, SHOULDER, TOTAL Left rotator cuff tear arthropathy 03/27/2024 14:25 EST documented as of this encounter Procedures Procedure Name Priority Date/Time Associated Diagnosis Comments URINE [id number] NE RATIO (ACR) Routine 11/03/2010 10:52 EDT documented in this encounter Results * MICROALBUMIN (11/03/2010 10:52 EDT) Creatinine, Urn [place] 38.9 mg/dl [facility] Ur Albumin mg/dl <0.2 <1.9 mg/dl [facility] Ur Alb ug/mg Crea Unable to calculate ug/mg Crea result. Normal: ??<30 ug/mg Creat Microalbuminu theodora: ??30-300 ug/mg Creat Clinical albuminuria: ??>300 ug/mg Creat ug/mg Crea [facility] Urine specimen (specimen) 11/03/2010 10:52 EDT 11/03/2010 18:11 EDT us Barbara Conway NP CHEMISTRY & BLOOD GAS ORDERAB LES Final Result [facility] [address] [place] [address] documented in this encounter Visit Diagnoses Not on filedocumented in this encounter Care Teams Tricot Knitter Relationship Specialty Start Date End Date Barbara Conway, SPINNING FRAME CHANGER [address] [place] [address] PCP - General 08/14/08 07/22/13 documented as of this encounter
--- OUTSIDE RECORDS SUMMARY | 2024-03-18 22:14 | XMS_ITS | Encounter Summary ---
Author Organization [facility] Address [address] [place] [address] Care Team Providers Care Chairperson Anesthesiology Name Role Phone Barbara Conway PROMOTIONS DIRECTOR Primary Care Provider [phone] Encounter Details Date Type Department Care Team (Late st Contact Info) Description 07/21/2010 Results Only Imaging [facility] [phone] Barbara Conway, PROMOTIONS DIRECTOR [address] [place], [place] [address] Social History Tobacco Use Types Packs/Day Years [...] Description 03/27/2024 14:25 EST Hospital Encounter [facility] OR [address] [place] [address] [phone] Vishal Castillo MD [address] [place] [phone] 03/27/2024 14:25 EST - 03/27/2024 17:55 EST Surgery [facility] OR [address] [place] [address] [phone] Vishal Castillo MD [address] [place] [phone] Left Reverse Total Shoulder Arthroplasty [69597 (CPT??)] 04/08/2024 15:30 EST Post-op Visit [facility] Hand & Upper Extremity Program - [address] [address] Vishal Castillo MD [address] [place] [address] Scheduled Procedures Name Priority Associated Diagnoses Date/Ti me ARTHROPLASTY, SHOULDER, TOTAL Left rotator cuff tear arthropathy 03/27/2024 14:25 EST documented as of this encounter Procedures Procedure Name Priority Date/Time Associated Diagnosis Comments MA MAMMO SCREENING DIGITAL 09/01/2010 13:06 EDT documented in this encounter Results * MA MAMMO SCREENING DIGITAL (09/01/2010 13:06 EDT) Anatomical Region Laterality Modality Other 09/01/2010 13:0 6 EDT 09/02/2010 10:00 EDT Narrative 09/02/2010 10:00 EDT Comparison is made to films from 08/14/2009 (bilateral) and films from 10/07/2008 (bilateral) and films from 10/01/2007 (bilateral) and films from 09/08/2006 (bilateral). Bilateral Breast Findings: (CAD used to interpret routine digital): The breasts are almost entirely fat. No significant masses, calcifications or other abnormalities are seen. IMPRESSION: BILATERAL BREASTS - CATEGORY 1, NEGATIVE Negative, no evidence of malignancy. Normal interval follow-up is recommended in 12 months. OVERALL ASSESSMENT - NEGATIVE END OF IMPRESSION The patient will be notified of her/his breast imaging results via a lay letter from Radiology. ??Radiology will contact the patient directly regarding any findings which require additional imaging (Category 0) at this time. Procedure Note 09/02/2010 Comparison is made to films from 08/14/2009 (bilateral) and films from 10/07/2008 (bilateral) and films from 10/01/2007 (bilateral) and films from 09/08/2006 (bilateral). Bilateral Breast Findings: (CAD used to interpret routine digital): The breasts are almost entirely fat. No significant masses, calcifications or other abnormalities are seen. IMPRESSION: BILATERAL BREASTS - CATEGORY 1, NEGATIVE Negative, no evidence of malignancy. Normal interval follow-up is recommended in 12 months. OVERALL ASSESSMENT - NEGATIVE END OF IMPRESSION The patient will be notified of her/his breast imaging results via a lay letter from Radiology. Radiology will contact the patient directly regarding any findings which require additional imaging (Category 0) at this time. us Barbara Conway NP IMG MAMMOGRAPHY ORDERABLES Fi nal Result documented in this encounter Visit Diagnoses Not on filedocumented in this encounter Care Teams Chairperson Anesthesiology Relationship Specialty Start Date End Date Barbara Conway, PROMOTIONS DIRECTOR [address] [place] [address] PCP - General 08/14/08 07/22/13 documented as of this encounter
--- OUTSIDE RECORDS SUMMARY | 2024-03-18 22:14 | XMS_ITS | Encounter Summary ---
Author Organization [facility] Address [address] [place] [address] Care Team Providers Care Poly Area Supervisor Name Role Phone Barbara Conway Myla TONGUE STITCHER Primary Care Provider [phone] Encounter Details Date Type Department Care Team (Latest Contact Info) Description 10/15/2008 8:50 EDT - 10/15/2008 8:51 EDT Hospital Encounter [facility] - Other [address] [place] [address] Iraida Crews MD Discharge Disposition: Home or [...] mouth daily. Reported on 08/31/2016 04/30/2007 10/24/2019 [place]-3 Fatty Acids-Vitamin E (FISH OIL) 1,000 mg [...] Description 03/27/2024 14:[address] [facility] OR [address] [place] [address] [phone] Vishal Castillo MD [address] [place] [phone] 03/27/2024 14:25 EST - 03/27/2024 17:[address] [facility] OR [address] [place] [address] [phone] Vishal Castillo MD [address] [place] [phone] Left Reverse Total Shoulder Arthroplasty [70801 (CPT??)] 04/08/2024 15:30 EST Post-op Visit [facility] Hand & Upper Extremity Program - [place] [address] [place] [address] Vishal Castillo MD [address] [place] [phone] Scheduled Procedures Name Priority Associated Diagnoses Date/Ti me ARTHROPLASTY, SHOULDER, TOTAL Left rotator cuff tear arthropathy 03/27/2024 14:25 EST documented as of this encounter Visit Diagnoses Not on filedocumented in this encounter Care Teams Poly Area Supervisor Relationship Specialty Start Date End Date Barbara Conway, TONGUE STITCHER [address] [place] [address] PCP - General 08/14/08 07/22/13 documented as of this encounter
--- OUTSIDE RECORDS SUMMARY | 2024-03-18 22:14 | XMS_ITS | Encounter Summary ---
Author Organization [facility] Address [address] [place] [address] Care Team Providers Care Hand Violin Maker Name Role Phone ZoraidaBarbara Myla DEXIGRAPH OPERATOR Primary Care Provider [phone] Encounter Details Date Type Department Care Team (Late st Contact Info) Description 09/13/2011 10:22 EDT - 09/13/2011 23:59 EDT Hospital Encounter [address] [address] Kristina Greenwood MD Discharge Disposition: Home or [...] mouth daily. Reported on 08/31/2016 04/30/2007 0 [place]-3 Fatty Acids-Vitamin E (FISH OIL) 1,000 mg Cap Take by mouth daily. 04/30/2007 3 simvastatin (ZOCOR) 80 mg tablet Take 80 mg by mouth at bedtime. 04/30/2008 3 documented as of this encounter Discharge Disposition Disposition Code Departure Means Destination Home or Self Detention documented in this encounter Plan of Treatment Upcoming Encounters Date Type Department Care Team (Latest Contact Info) Description 03/27/2024 14:25 EST Hospital Encounter [facility] OR [address] [place] [address] [phone] Vishal Castillo MD [address] [place] [phone] 03/27/2024 14:25 EST - 03/27/2024 17:55 EST Surgery [facility] OR [address] [place] [address] [phone] Vishal Castillo MD [address] [place] [phone] Left Reverse Total Shoulder Arthroplasty [12065 (CPT??)] 04/08/2024 15:30 EST Post-op Visit [facility] Hand & Upper Extremity Program - [address] [facility] [place] [address] Vishal Castillo MD [address] [place] [phone] Scheduled Procedures Name Priority Associated Diagnoses Date/Ti me ARTHROPLASTY, SHOULDER, TOTAL Left rotator cuff tear arthropathy 03/27/2024 14:25 EST documented as of this encounter Visit Diagnoses Not on filedocumented in this encounter Care Teams Hand Violin Maker Relationship Specialty Start Date End Date Barbara Conway NP [address] [place] [address] PCP - General 08/14/08 07/22/13 documented as of this encounter
--- OUTSIDE RECORDS SUMMARY | 2024-03-18 22:14 | XMS_ITS | Encounter Summary ---
Author Organization [facility] Address [address] [place] [address] Care Team Providers Care Poultry Farmer Egg Name Role Phone ZoraidaBarbara Myla MAGISTRATE JUDGE Primary Care Provider [phone] Encounter Details Date Type Department Care Team (Latest Contact Info) Description 09/01/2010 12:40 EDT - 09/01/2010 23:59 EDT Hospital Encounter [address] [address] Duglas Nevarez MD [address] [place] [address] Discharge Disposition: Home or Self Care Social [...] mouth daily. Reported on 08/31/2016 04/30/2007 0 [place]-3 Fatty Acids-Vitamin E (FISH OIL) 1,000 mg Cap Take by mouth daily. 04/30/2007 3 simvastatin (ZOCOR) 80 mg tablet Take 80 mg by mouth at bedtime. 04/30/2008 3 documented as of this encounter Discharge Disposition Disposition Code Departure Means Destination Home or Self Residential documented in this encounter Plan of Treatment Upcoming Encounters Date Type Department Care Team (Latest Contact Info) Description 03/27/2024 14:25 EST Hospital Encounter [facility] OR [address] [place] [address] [phone] Vishal Castillo MD [address] [place] [phone] 03/27/2024 14:25 EST - 03/27/2024 17:55 EST Surgery [facility] OR [address] [place] [address] [phone] Vishal Castillo MD [address] [place] [phone] Left Reverse Total Shoulder Arthroplasty [62973 (CPT??)] 04/08/2024 15:30 EST Post-op Visit [facility] Hand & Upper Extremity Program - [facility] [address] [place] [address] Vishal Castillo MD [address] [place] [phone] Scheduled Procedures Name Priority Associated Diagnoses Date/Ti me ARTHROPLASTY, SHOULDER, TOTAL Left rotator cuff tear arthropathy 03/27/2024 14:25 EST documented as of this encounter Visit Diagnoses Not on filedocumented in this encounter Care Teams Poultry Farmer Egg Relationship Specialty Start Date End Date Barbara Conway MAGISTRATE JUDGE [address] [place] [address] PCP - General 08/14/08 07/22/13 documented as of this encounter
--- OUTSIDE RECORDS SUMMARY | 2024-03-18 22:14 | XMS_ITS | Encounter Summary ---
Author Organization [facility] Address [address] [place] [address] Care Team Providers Care Grounds Maintenance Supervisor Name Role Phone Barbara Conway Myla DEPARTMENT OPERATIONS MANAGER Primary Care Provider [phone] Encounter Details Date Type Department Care Team (Late st Contact Info) Description 05/05/2010 Orders Only [facility] General Surgery - [address] [phone] Arnel Oliva MD [address] [facility], [address] [place] [address] Hx-rectal/anal malign (Primary Dx) Social History Tobacco Use Types [...] 03/27/2024 14:25 EST Hospital Encounter [facility] OR [address] [place], [place] [phone] Vishal Castillo MD [address] [place] [phone] 03/27/2024 14:25 EST - 03/27/2024 17:55 EST Surgery [facility] [place] OR [address] [place], [place] 2[address] Vishal Castillo MD [address] [place] [phone] Left Reverse Total Shoulder Arthroplasty [83501 (CPT??)] 04/08/2024 15:30 EST Post-op Visit [facility] Hand & Upper Extremity Program - [address] [place] [address] Vishal Castillo MD [address] [place] [phone] Scheduled Procedures Name Priority Associated Diagnoses Date/Ti me ARTHROPLASTY, SHOULDER, TOTAL Left rotator cuff tear arthropathy 03/27/2024 14:25 EST documented as of this encounter Visit Diagnoses Diagnosis Personal history of malignant neoplasm of rectum, rectosigmoid junction, and anus- Primary Left rotator cuff tear arthropathy documented in this encounter Care Teams Grounds Maintenance Supervisor Relationship Specialty Start Date End Date Barbara Conway NP [address] [place] [address] PCP - General 08/14/08 07/22/13 documented as of this encounter
--- OUTSIDE RECORDS SUMMARY | 2024-03-18 22:14 | XMS_ITS | Encounter Summary ---
Author Organization [facility] Address [address] [place] [address] Care Team Providers Care Lithographic Press Operator Name Role Phone ZoraidaBarbara Myla MATERIAL DAMAGE ADJUSTER Primary Care Provider [phone] Encounter Details Date Type Department Care Team (Late st Contact Info) Description 04/30/2010 9:52 EST - 04/30/2010 23:59 EST Hospital Encounter [facility] [address] [place] [address] Arnel Oliva MD [address] [facility], [address] [place] [address] Personal history of rectal cancer Discharge Disposition: Home or Self Care Social [...] mouth daily. Reported on 08/31/2016 04/30/2007 0 [place]-3 Fatty Acids-Vitamin E (FISH OIL) 1,000 mg Cap Take by mouth daily. 04/30/2007 3 simvastatin (ZOCOR) 80 mg tablet Take 80 mg by mouth at bedtime. 04/30/2008 3 documented as of this encounter Discharge Disposition Disposition Code Departure Means Destination Home or Self Jail documented in this encounter Plan of Treatment Upcoming Encounters Date Type Department Care Team (Latest Contact Info) Description 03/27/2024 14:25 EST Hospital Encounter [facility] OR [address] [place] [phone] Vishal Castillo MD [address] [place] [phone] 03/27/2024 14:25 EST - 03/27/2024 17:55 EST Surgery [facility] OR [address] [place] [address] [phone] Vishal Castillo MD [address] [place] [phone] Left Reverse Total Shoulder Arthroplasty [50815 (CPT??)] 04/08/2024 15:30 EST Post-op Visit [facility] Hand & Upper Extremity Program - [address] [place] [address] Vishal Castillo MD [address] [place] [phone] Scheduled Procedures Name Priority Associated Diagnoses Date/Ti me ARTHROPLASTY, SHOULDER, TOTAL Left rotator cuff tear arthropathy 03/27/2024 14:25 EST documented as of this encounter Procedures Procedure Name Priority Date/Time Associated Diagnosis Comments CEA Routine 04/30/2010 10:04 EST Personal history of rectal cancer documented in this encounter Results * CEA (04/30/2010 10:04 EST) CEA 1.9 ng/ml [facility] Comment: % Distribution of CEA (ng/ml) 0-2.5 in 98.2% of non-smokers and 87.3% of smokers 2.6-5.0 in 1.8% of non-smokers and 8.0% of smokers 5.1-10.1 in 4.7% of smokers Serum CEA concentration should not be interpreted as absolute evidence for the presence or absence of malignant disease. ?? Assayed utilizing [employer] chemiluminescent technology. Values obtained by using different assay methods cannot be used interchangeably. PREVIOUS CEA RESULT ON 09/16/09 WAS 2.0 AND ON 03/13/09 WAS 1.8 Blood specimen (specimen) 04/30/2010 10:04 EST 04/30/2010 10:15 EST us Arnel Oliva MD CHEMISTRY & BLOOD GAS ORDERAB LES Final Result [facility] [address] [place] [address] documented in this encounter Visit Diagnoses Diagnosis Personal history of rectal cancer Personal history of malignant neoplasm of rectum, rectosigmoid junction, and anus Left rotator cuff tear arthropathy documented in this encounter Care Teams Lithographic Press Operator Relationship Specialty Start Date End Date Barbara Conway NP [address] [place] [address] PCP - General 08/14/08 07/22/13 documented as of this encounter
--- OUTSIDE RECORDS SUMMARY | 2024-03-18 22:14 | XMS_ITS | Encounter Summary ---
Author Organization [facility] Address [address] [place] [address] Care Team Providers Care Cake Maker Name Role Phone Barbara Conway CAMPUS DIRECTOR Primary Care Provider [phone] Encounter Details Date Type Department Care Team (Late st Contact Info) Description 10/21/2008 Orders Only [facility] [phone] Iraida Crews MD Social History Tobacco Use [...] Info) Description 03/27/2024 14:25 EST Hospital Encounter [facility] OR [address] [place] [address] [phone] Vishal Castillo MD [address] [place] [phone] 03/27/2024 14:25 EST - 03/27/2024 17:55 EST Surgery [facility] OR [address] [place] [address] [phone] Vishal Castillo MD [address] [place] [phone] Left Reverse Total Shoulder Arthroplasty [73411 (CPT??)] 04/08/2024 15:30 EST Post-op Visit [facility] Hand & Upper Extremity Program - [facility] [address] [facility] [place] [address] Vishal Castillo MD [address] [place] [phone] Scheduled Procedures Name Priority Associated Diagnoses Date/Ti me ARTHROPLASTY, SHOULDER, TOTAL Left rotator cuff tear arthropathy 03/27/2024 14:25 EST documented as of this encounter Procedures Procedure Name Priority Date/Time Associated Diagnosis Comments RAD US NECK/THYROID 10/21/2008 1 3:25 EDT documented in this encounter Results * RAD US NECK/THYROID (10/21/2008 13:25 EDT) Anatomical Region Laterality Modality Other 10/21/2008 13:2 5 EDT 10/21/2008 16:13 EDT Narrative 10/21/2008 16:13 EDT Ultrasound neck/thyroid: ??October 21, 2008 1:25:00 PM Signs and Symptoms/Comments: ??Elevated hypodensity measuring 2cm seen in left lobe of thyroid gland. Findings: The neck was scanned in transverse and sagittal planes. The right lobe measures 4.6 x 1.4 x 1.9 cm. The left lobe measures 4.6 x 2.0 x 2.6 cm. The isthmus measures 5 mm. There were multiple cysts scattered throughout the thyroid gland, several containing some tiny nodules in echogenic foci at the rims. The largest cyst on the left was in the upper pole and measured 3.3 x 1.8 x 2.4 cm. There is a bilobed appearing cystic area in the mid to lower pole of the right lobe which together measures approximately 2.0 cm length x 1.0 cm AP x 1.1 cm transverse. The inferior aspect of this structure shows a more solid area with tiny echogenic foci which is an indeterminant area. There is benign-appearing cyst in the isthmus measuring 1.6 x 0.7 cm extending to the right of midline. There is no significant lymphadenopathy. Impression: 1. There are multiple scattered cysts in the thyroid gland. Some of these have some tiny calcifications and nodules in the periphery. 2. There is a cyst in the mid to lower pole of the right lobe which has a suspicious solid area containing some microcalcifications. Ultrasound guided fine needle aspiration of this area is recommended. Procedure Note 10/21/2008 Ultrasound neck/thyroid: October 21, 2008 1:25:00 PM Signs and Symptoms/Comments: Elevated hypodensity measuring 2cm seen in left lobe of thyroid gland. Findings: The neck was scanned in transverse and sagittal planes. The right lobe measures 4.6 x 1.4 x 1.9 cm. The left lobe measures 4.6 x 2.0 x 2.6 cm. The isthmus measures 5 mm. There were multiple cysts scattered throughout the thyroid gland, several containing some tiny nodules in echogenic foci at the rims. The largest cyst on the left was in the upper pole and measured 3.3 x 1.8 x 2.4 cm. There is a bilobed appearing cystic area in the mid to lower pole of the right lobe which together measures approximately 2.0 cm length x 1.0 cm AP x 1.1 cm transverse. The inferior aspect of this structure shows a more solid area with tiny echogenic foci which is an indeterminant area. There is benign-appearing cyst in the isthmus measuring 1.6 x 0.7 cm extending to the right of midline. There is no significant lymphadenopathy. Impression: 1. There are multiple scattered cysts in the thyroid gland. Some of these have some tiny calcifications and nodules in the periphery. 2. There is a cyst in the mid to lower pole of the right lobe which has a suspicious solid area containing some microcalcifications. Ultrasound guided fine needle aspiration of this area is recommended. us Iraida Crews MD IMG US ORDERABLES Final Re sult documented in this encounter Visit Diagnoses Not on filedocumented in this encounter Care Teams Cake Maker Relationship Specialty Start Date End Date Barbara Conway NP [address] [place] [address] PCP - General 08/14/08 07/22/13 documented as of this encounter
--- OUTSIDE RECORDS SUMMARY | 2024-03-18 22:14 | XMS_ITS | Encounter Summary ---
Author Organization [facility] Address [address] [place] [address] Care Team Providers Care Spike Machine Feeder Name Role Phone Barbara Conway Myla SWIMMING POOL PLASTERER HELPER Primary Care Provider [phone] Encounter Details Date Type Department Care Team (Late st Contact Info) Description 06/24/2010 Orders Only [facility] General Surgery - [facility] [address] [place], [place] [id number] Brittany Greenwood, RN [address] [place] [address] Personal history of rectal cancer (Primary Dx) [...] Description 03/27/2024 14:25 EST Hospital Encounter [facility] OR [address] [place], [place] [address] Vishal Castillo MD [address] [place] [phone] 03/27/2024 14:25 EST - 03/27/2024 17:55 EST Surgery [facility] OR [address] [place], [place] [id number] Vishal Castillo MD [address] [place] [phone] Left Reverse Total Shoulder Arthroplasty [49860 (CPT??)] 04/08/2024 15:30 EST Post-op Visit [facility] Hand & Upper Extremity Program - [address] [address] Vishal Castillo MD [address] [place] [address] Scheduled Procedures Name Priority Associated Diagnoses Date/Ti me ARTHROPLASTY, SHOULDER, TOTAL Left rotator cuff tear arthropathy 03/27/2024 14:25 EST documented as of this encounter Procedures Procedure Name Priority Date/Time Associated Diagnosis Comments CT ABDOMEN, PELVIS W CONTRAST 08/09/2010 13:34 EDT documented in this encounter Results * CT ABDOMEN, PELVIS W CONTRAST (08/09/2010 13:34 EDT) Anatomical Region Laterality Modality Other 08/09/2010 13:3 4 EDT 08/09/2010 16:36 EDT Narrative 08/09/2010 16:[address] ABDOMEN, PELVIS ??Aug 09, 2010 01:34:00 PM Signs and Symptoms/Comments: ??V10.06-PERSONAL HISTORY OF RECTAL CANCER-I9 follow up Comparison: The CT chest abdomen pelvis September 23, 2008, September 28, 2007, May 13, 2005. Technique: After the uneventful administration of intravenous contrast (94 cc of 370 mg % nonionic contrast administered at a rate of 2 cc/sec) and radiopaque oral contrast, a CT of the abdomen and pelvis was performed. Helical images were obtained from the domes of the diaphragm to the ischial tuberosities. Images were obtained in the portal venous phase. Rectal contrast was refused by the patient. Findings: Evaluation of the visualized portions of the lower chest demonstrate multiple pulmonary nodules in the lower lobes which appear stable in size from the most recent exam. The spleen, pancreas, and adrenal glands appear normal. There is a stable simple cyst in the medial segment of the left lobe of the liver. The gallbladder is present and there is no radiographic evidence of cholelithiasis. Stable appearance of the right kidney with mild dilation of the calyces and extrarenal pelvis. The left kidney appears normal. The ureters and bladder appear normal. There is a moderate-sized hiatal hernia. 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 The remainder of the small bowel appears normal. The unopacified colon has a normal appearance. There is no evidence of bowel wall thickening or obstruction. The uterus and adnexa have a stable appearance. Air is seen in the vagina. There is no mesenteric adenopathy. There is no retroperitoneal adenopathy. There is no free fluid or free air in the abdomen or pelvis. There are enthesopathic changes of the right and left greater trochanter. Degenerative changes of the lumbar spine. Impression: 1. No evidence of recurrence or spread of previous rectal cancer. 2. Stable appearance of the right kidney with mild dilation of the calyxes and extrarenal pelvis. 3. Nodules in the base of the lungs are unchanged since 2005. 4. Stable hepatic cyst. 5. Moderate-sized hiatal hernia I have personally reviewed the images and the above interpretation and agree with the findings. Procedure Note Jonas Hickman MD - 08/09/2010 CT ABDOMEN, PELVIS Aug 09, 2010 01:34:00 PM Signs and Symptoms/Comments: V10.06-PERSONAL HISTORY OF RECTAL CANCER-I9 follow up Comparison: The CT chest abdomen pelvis September 23, 2008, September 28, 2007, May 13, 2005. Technique: After the uneventful administration of intravenous contrast (94 cc of 370 mg % nonionic contrast administered at a rate of 2 cc/sec) and radiopaque oral contrast, a CT of the abdomen and pelvis was performed. Helical images were obtained from the domes of the diaphragm to the ischial tuberosities. Images were obtained in the portal venous phase. Rectal contrast was refused by the patient. Findings: Evaluation of the visualized portions of the lower chest demonstrate multiple pulmonary nodules in the lower lobes which appear stable in size from the most recent exam. The spleen, pancreas, and adrenal glands appear normal. There is a stable simple cyst in the medial segment of the left lobe of the liver. The gallbladder is present and there is no radiographic evidence of cholelithiasis. Stable appearance of the right kidney with mild dilation of the calyces and extrarenal pelvis. The left kidney appears normal. The ureters and bladder appear normal. There is a moderate-sized hiatal hernia. 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 The remainder of the small bowel appears normal. The unopacified colon has a normal appearance. There is no evidence of bowel wall thickening or obstruction. The uterus and adnexa have a stable appearance. Air is seen in the vagina. There is no mesenteric adenopathy. There is no retroperitoneal adenopathy. There is no free fluid or free air in the abdomen or pelvis. There are enthesopathic changes of the right and left greater trochanter. Degenerative changes of the lumbar spine. Impression: 1. No evidence of recurrence or spread of previous rectal cancer. 2. Stable appearance of the right kidney with mild dilation of the calyxes and extrarenal pelvis. 3. Nodules in the base of the lungs are unchanged since 2005. 4. Stable hepatic cyst. 5. Moderate-sized hiatal hernia I have personally reviewed the images and the above interpretation and agree with the findings. Arnel Oliva MD IMG CT ORDERABLES Final Resul t documented in this encounter Visit Diagnoses Diagnosis Personal history of rectal cancer- Primary Personal history of malignant neoplasm of rectum, rectosigmoid junction, and anus Left rotator cuff tear arthropathy documented in this encounter Care Teams Spike Machine Feeder Relationship Specialty Start Date End Date Barbara Conway SWIMMING POOL PLASTERER HELPER [address] [place] [address] PCP - General 08/14/08 07/22/13 documented as of this encounter
--- OUTSIDE RECORDS SUMMARY | 2024-03-18 22:14 | XMS_ITS | Encounter Summary ---
Author Organization [facility] Address [address] [place] [address] Care Team Providers Care Wet Room Supervisor Name Role Phone ZoraidaBarbara Myla GAS COLLECTION SYSTEM OPERATOR Primary Care Provider [phone] Encounter Details Date Type Department Care Team (Late st Contact Info) Description 08/09/2010 11:18 EDT - 08/09/2010 23:59 EDT Hospital Encounter [facility] [address] [place] [address] Arnel Oliva MD [address] [facility], Level [address] [place] [address] Discharge Disposition: Home or Self [...] mouth daily. Reported on 08/31/2016 04/30/2007 0 [place]-3 Fatty Acids-Vitamin E (FISH OIL) 1,000 mg Cap Take by mouth daily. 04/30/2007 3 simvastatin (ZOCOR) 80 mg tablet Take 80 mg by mouth at bedtime. 04/30/2008 3 documented as of this encounter Discharge Disposition Disposition Code Departure Means Destination Home or Self Skilled Nursing documented in this encounter Plan of Treatment Upcoming Encounters Date Type Department Care Team (Latest Contact Info) Description 03/27/2024 14:25 EST Hospital Encounter [facility] OR [address] [place] [id number] Vishal Castillo MD [address] [place] [phone] 03/27/2024 14:25 EST - 03/27/2024 17:55 EST Surgery [facility] OR [address] [place] [phone] Vishal Castillo MD [address] [place] [phone] Left Reverse Total Shoulder Arthroplasty [94218 (CPT??)] 04/08/2024 15:30 EST Post-op Visit [facility] Hand & Upper Extremity Program - [facility] [place] [address] Vishal Castillo MD [address] [place] [phone] Scheduled Procedures Name Priority Associated Diagnoses Date/Ti me ARTHROPLASTY, SHOULDER, TOTAL Left rotator cuff tear arthropathy 03/27/2024 14:25 EST documented as of this encounter Visit Diagnoses Not on filedocumented in this encounter Care Teams Wet Room Supervisor Relationship Specialty Start Date End Date Barbara Conway, GAS COLLECTION SYSTEM OPERATOR [address] [place] [address] PCP - General 08/14/08 07/22/13 documented as of this encounter
--- OUTSIDE RECORDS SUMMARY | 2024-03-18 22:14 | XMS_ITS | Encounter Summary ---
Author Organization [facility] Address [address] [place] [address] Care Team Providers Care Slate Splitter Name Role Phone Barbara Conway MANAGING BROKER Primary Care Provider [phone] Encounter Details Date Type Department Care Team (Latest Contact Info) Description 11/03/2010 9:30 EDT - 11/03/2010 9:31 EDT Hospital Encounter [address] [address] Barbara Conway, MANAGING BROKER [address] [place], [place] [address] Discharge Disposition: Home or Self Care Social [...] mouth daily. Reported on 08/31/2016 04/30/2007 0 [place]-3 Fatty Acids-Vitamin E (FISH OIL) 1,000 mg [...] Description 03/27/2024 14:25 EST Hospital Encounter [facility] OR [address] [place] [phone] Vishal Castillo MD [address] [place] [phone] 03/27/2024 14:25 EST - 03/27/2024 17:55 EST Surgery [facility] OR [address] [place] [address] Vishal Castillo MD [address] [place] [phone] Left Reverse Total Shoulder Arthroplasty [93872 (CPT??)] 04/08/2024 15:30 EST Post-op Visit [facility] Hand & Upper Extremity Program - [facility] [address] [facility] [place] [address] Vishal Castillo MD [address] [place] [phone] Scheduled Procedures Name Priority Associated Diagnoses Date/Ti me ARTHROPLASTY, SHOULDER, TOTAL Left rotator cuff tear arthropathy 03/27/2024 14:25 EST documented as of this encounter Visit Diagnoses Not on filedocumented in this encounter Care Teams Slate Splitter Relationship Specialty Start Date End Date Barbara Conway NP [address] [place] [address] PCP - General 08/14/08 07/22/13 documented as of this encounter
--- OUTSIDE RECORDS SUMMARY | 2024-03-18 22:14 | XMS_ITS | Encounter Summary ---
Author Organization [facility] Address [address] [place] [address] Care Team Providers Care Gauntlet Pairer Name Role Phone Barbara Conway Myla GRAIN LOADER Primary Care Provider [phone] Reason for Visit * Reason Onset Date Comments Allergies 07/20/2010 ??? Encounter Details Date Type Department Care Team (Late st Contact Info) Description 07/20/2010 Telephone [facility] General [facility] - [facility] [address] [place] [address] Brittany Greenwood RN [address] [place] [address] Allergies (???) Social History Tobacco Use Types Packs/Day Years Used Date Smoking Tobacco: Never Assessed Comments Unknown Sex and Gender Information Value Date Recorded Sex Assigned at Female 03/08/2024 18:30 EST Legal Sex Female 18:30 EST Gender Identity Female 05/28/2019 8:56 EST Sexual Orientation Not on file documented as of this encounter Miscellaneous Notes * Telephone Encounter - Brittany Greenwood RN - 07/20/2010 1600 EDT Pt reports she has no known drug allergies. She has had a number of CT scans and has never had a reaction to any IVP dye or CT contrast. Pt is scheduled for CT scan in July for her personal history of rectal cancer. Will proceed as planned. documented in this encounter Plan of Treatment Upcoming Encounters Date Type Department Care Team (Latest Contact Info) Description 03/27/2024 14:25 EST Hospital Encounter [facility] OR [address] [place], [place] [phone] Vishal Castillo MD [address] [place] [phone] 03/27/2024 14:25 EST - 03/27/2024 17:55 EST Surgery [facility] OR [address] [place] [phone] Vishal Castillo MD [address] [place] [phone] Left Reverse Total Shoulder Arthroplasty [64076 (CPT??)] 04/08/2024 15:30 EST Post-op Visit [facility] Hand & Upper Extremity Program - [address] [address] Vishal Castillo MD [address] [place] [phone] Scheduled Procedures Name Priority Associated Diagnoses Date/Ti me ARTHROPLASTY, SHOULDER, TOTAL Left rotator cuff tear arthropathy 03/27/2024 14:25 EST documented as of this encounter Visit Diagnoses Not on filedocumented in this encounter Care Teams Gauntlet Pairer Relationship Specialty Start Date End Date Barbara Conway, [place] [address] [place], [place] [address] PCP - General 08/14/08 07/22/13 documented as of this encounter
--- OUTSIDE RECORDS SUMMARY | 2024-03-18 22:14 | XMS_ITS | Encounter Summary ---
Author Organization [facility] Address [address] [place] [address] Care Team Providers Care Tennis Court Attendant Name Role Phone Barbara Conway PIT TANNER Primary Care Provider [phone] Encounter Details Date Type Department Care Team (Latest Contact Info) Description 10/07/2008 10:34 EDT - 10/07/2008 23:59 EDT Hospital Encounter [address] [address] Barbara Conway, PIT TANNER [address] [place], [place] [address] Discharge Disposition: Home or Self Care Social [...] mouth daily. Reported on 08/31/2016 04/30/2007 10/24/2019 [place]-3 Fatty Acids-Vitamin E (FISH OIL) 1,000 mg [...] Info) Description 03/27/2024 14:25 EST Hospital Encounter [facility] OR [address] [place] [phone] Vishal Castillo MD [address] [place] [phone] 03/27/2024 14:25 EST - 03/27/2024 17:55 EST Surgery [facility] OR [address] [place] [phone] Vishal Castillo MD [address] [place] [phone] Left Reverse Total Shoulder Arthroplasty [73262 (CPT??)] 04/08/2024 15:30 EST Post-op Visit [facility] Hand & Upper Extremity Program - [facility] [place] [address] Vishal Castillo MD [address] [place] [phone] Scheduled Procedures Name Priority Associated Diagnoses Date/Ti me ARTHROPLASTY, SHOULDER, TOTAL Left rotator cuff tear arthropathy 03/27/2024 14:25 EST documented as of this encounter Procedures Procedure Name Priority Date/Time Associated Diagnosis Comments COMPLETE BLOOD COUNT Routine 10/15/2008 10:15 EDT T3, TOTAL Routine 10/15/2008 10:15 EDT TSH Routine 10/15/2008 10:15 EDT T4 FREE Routine 10/15/2008 10:15 EDT HEMOGLOBIN A1C Routine 10/15/2008 10:15 EDT LIPID PROFILE (INCLUDES CHOLESTEROL, TRIGLYCERIDES, HDL, LDL) Routine 10/15/2008 10:15 EDT COMPREHENSIVE METABOLIC PANEL (CMP) Routine 10/15/2008 10:15 EDT documented in this encounter Results * TSH (10/15/2008 10:15 EDT) TSH 0.80 0.35 - 5.00 uIU/ml [facility] 10/15/2008 10:1 5 EDT 10/15/2008 11:24 EDT us Iraida Crews MD CHEMISTRY & BLOOD GAS SUGAR RAINEY Final Result [facility] [address] [place] [address] * T3, TOTAL (10/15/2008 10:15 EDT) T3, Total 142 60 - 181 ng/dL [facility] 10/15/2008 10:1 5 EDT 10/15/2008 11:24 EDT Iraida Crews MD CHEMISTRY & BLOOD GAS ORDAsuncion RAINEY Final Result Performing Organization Address [facility] de Phone Number [facility] [address] [place] [address] * LIPID PROFILE (10/15/2008 10:15 EDT) Cholesterol 177 mg/dl [facility] Comment: Desirable:<200 Borderline High:200-239 High:>ri=749 Triglycerides 77 35 - 160 mg/dl [facility] HDL 69 mg/dl [facility] Comment: Low:<40 High(Desirable):>or=60 LDL, Calculated 93 mg/dl [facility] Comment: Optimal:<100 Above optimal:100-129 Borderline High:130-159 High:160-189 Very High:>bu=700 Chol/HDL Ratio 2.6 [facility] Fasting? Yes [facility] 10/15/2008 10:1 5 EDT 10/15/2008 11:24 EDT Iraida Crews MD CHEMISTRY & BLOOD GAS SUGAR RAINEY Final Result Performing Organization Address [facility] Phone Number [facility] [address] [place] [address] * HEMOGLOBIN A1C (10/15/2008 10:15 EDT) Hemoglobin A1C 6.0 % [facility] Comment: Reference Range: <6% Normal Range ADA guidelines: The A1c goal for non adults in general is <7% The A1c goal for selected individual patients is as close to normal (<6%) as possible without significant hypoglycemia. Est Avg Glucose 126 mg/dl [facility] Comment: eAG represents the A1c result expressed as average glucose in mg/dl. 10/15/2008 10:1 5 EDT 10/15/2008 11:24 EDT Iraida Crews MD CHEMISTRY & BLOOD GAS ORDAsuncion RAINEY Final Result Performing Organization Address [facility]/ZIP Co de Phone Number [facility] [address] [place] [address] * T4 FREE (10/15/2008 10:15 EDT) Free T4 1.2 0.8 - 1.8 ng/dL [facility] 10/15/2008 10:1 5 EDT 10/15/2008 11:24 EDT Iraida Crews MD [facility] Final Result [facility] [address] [place] [address] * (ABNORMAL) COMPREHENSIVE METABOLIC PANEL (10/15/2008 10:15 EDT) Pathologist [facility] Potassium 4.4 3.5 - 5.0 mEq/L [facility] Sodium 138 136 - 145 mEq/L [facility] Chloride 107 96 - 110 mEq/L [facility] CO2 26 24 - 32 mEq/L [facility] Alkaline Phosphatase 71 38 - 126 U/L [facility] Bilirubin, Total <0.5 0.2 - 1.3 mg/dl [facility] AST 31 15 - 46 U/L [facility] ALT 25 9 - 52 U/L [facility] Albumin 3.9 3.4 - 4.9 g/dl [facility] Total Protein 6.4(L) 6.5 - 8.3 g/dl [facility] Creatinine 0.76 0.7 - 1.5 mg/dl [facility] GFR, Calculated >60 ml/min/1.7 3m2 [facility] BUN 17 10 - 26 mg/dl [facility] Calcium 9.2 8.5 - 10.5 mg/dl [facility] Calculated Calcium 9.7 8.5 - 10.5 mg/dl [facility] Glucose, Serum 97 70 - 100 mg/dl [facility] Fasting? Yes [facility] 10/15/2008 10:1 5 EDT 10/15/2008 11:24 EDT us Iraida Crews MD CHEMISTRY & BLOOD GAS ORDAsuncion RAINEY Final Result Performing Organization Address City/[facility]/ZIP Co de Phone Number [facility] [address] [place] [address] * (ABNORMAL) HEMAGRAM (10/15/2008 10:15 EDT) WBC 4.52 4.0 - 12.4 K/cmm [facility] RBC 4.12 3.86 - 5.04 M/cmm [facility] Hemoglobin 12.1 11.6 - 15.2 gm/dl [facility] HCT 34.8(L) 34.9 - 44.4 % [facility] MCV 84 81 - 98 fl [facility] MCH 29.3 26.7 - 33.3 pg [facility] MCHC 34.7 32.1 - 35.9 gm/dl [facility] PLT 218 141 - 320 K/cmm [facility] RDW-CV 14.7(H) 11.7 - 14.6 % [facility] 10/15/2008 10:1 5 EDT 10/15/2008 11:24 EDT us Iraida Crews MD HEMATOLOGY & PF4 ORDERABLE S Final Result Performing Organization Address City/[facility] Co de Phone Number [facility] [address] [place] [address] documented in this encounter Visit Diagnoses Not on filedocumented in this encounter Care Teams Tennis Court Attendant Relationship Specialty Start Date End Date Barbara Conway, PIT TANNER [address] [place] [address] PCP - General 08/14/08 07/22/13 documented as of this encounter
--- OUTSIDE RECORDS SUMMARY | 2024-03-18 22:14 | XMS_ITS | Encounter Summary ---
Author Organization [facility] Address [address] [place] [address] Care Team Providers Care Odd Bundle Worker Name Role Phone Barbara Conway PANEL BEATER Primary Care Provider [phone] Encounter Details Date Type Department Care Team (Late st Contact Info) Description 08/12/2009 Results Only [facility] [phone] Barbara Conway, PANEL BEATER [address] [place], [place] [id number] Social History Tobacco Use Types Packs/Day Years [...] Info) Description 03/27/2024 14:25 EST Hospital Encounter [facility] OR [address] [place] [phone] Vishal Castillo MD [address] [place] [phone] 03/27/2024 14:25 EST - 03/27/2024 17:55 EST Surgery [facility] OR [address] [place] [phone] Vishal Castillo MD [address] [place] [phone] Left Reverse Total Shoulder Arthroplasty [76517 (CPT??)] 04/08/2024 15:30 EST Post-op Visit [facility] Hand & Upper Extremity Program - [address] [address] Vishal Castillo MD [address] [place] [phone] Scheduled Procedures Name Priority Associated Diagnoses Date/Ti me ARTHROPLASTY, SHOULDER, TOTAL Left rotator cuff tear arthropathy 03/27/2024 14:25 EST documented as of this encounter Procedures Procedure Name Priority Date/Time Associated Diagnosis Comments SONIA DX RICK DIG EMERGENCY 08/14/2009 9:22 EDT documented in this encounter Results * SONIA DX RICK DIG EMERGENCY (08/14/2009 9:22 EDT) Anatomical Region Laterality Modality Other 08/14/2009 9:22 EDT 08/14/2009 14:43 EDT Narrative 08/14/2009 14:43 EDT Comparison is made to films from 10/07/2008 (bilateral) and films from 10/01/2007 (bilateral) and films from 09/08/2006 (bilateral). Bilateral Breast Findings: (CAD used to interpret diagnostic digital): The breasts are almost entirely fat. [...] (Category 0) at this time. Procedure Note 08/14/2009 Comparison is made to films from 10/07/2008 (bilateral) and films from 10/01/2007 (bilateral) and films from 09/08/2006 (bilateral). Bilateral Breast Findings: (CAD used to interpret diagnostic digital): The breasts are almost entirely fat. [...] on filedocumented in this encounter Care Teams Odd Bundle Worker Relationship Specialty Start Date End Date Barbara Conway, PANEL BEATER [address] [place] [address] PCP - General 08/14/08 07/22/13 documented as of this encounter
--- OUTSIDE RECORDS SUMMARY | 2024-03-18 22:14 | XMS_ITS | Encounter Summary ---
Author Organization [facility] Address [address] [place] [address] Care Team Providers Care Coffee Farmer Name Role Phone Barbara Conway DIRECTOR OF COMMUNITY EDUCATION Primary Care Provider [phone] Encounter Details Date Type Department Care Team (Late st Contact Info) Description 10/08/2009 Results Only [facility] Laboratory Services - [facility] ([facility]) [address] [place] [phone] Barbara Conway, DIRECTOR OF COMMUNITY EDUCATION [address] [place], [place] [address] Social History Tobacco Use Types Packs/Day Years [...] Info) Description 03/27/2024 14:25 EST Hospital Encounter [facility] OR [address] [place], [place] [address] Vishal Castillo MD [address] [place] [phone] 03/27/2024 14:25 EST - 03/27/2024 17:55 EST Surgery [facility] OR [address] [place], [place] [phone] Vishal Castillo MD [address] [place] [phone] Left Reverse Total Shoulder Arthroplasty [58767 (CPT??)] 04/08/2024 15:30 EST Post-op Visit [facility] Hand & Upper Extremity Program - [address] [place] [address] Vishal Castillo MD [address] [place] [address] Scheduled Procedures Name Priority Associated Diagnoses Date/Ti me ARTHROPLASTY, SHOULDER, TOTAL Left rotator cuff tear arthropathy 03/27/2024 14:25 EST documented as of this encounter Procedures Procedure Name Priority Date/Time Associated Diagnosis Comments HEMOGLOBIN A1C Routine 10/08/2009 8:15 EDT HEPATIC FUNCTION PANEL (ALB,ALK PHOS,ALT,AST,DBIL,TO T RICK,TOT PROT) Routine 10/08/2009 8:15 EDT LIPID PROFILE (INCLUDES CHOLESTEROL, TRIGLYCERIDES, HDL, LDL) Routine 10/08/2009 8:15 EDT documented in this encounter Results * LIPID PROFILE (INCLUDES CHOLESTEROL, TRIGLYCERIDES, HDL, LDL) (10/08/2009 8:15 EDT) Cholesterol 164 mg/dl [facility] Comment: Desirable:<200 Borderline High:200-239 High:>et=168 Triglycerides 86 35 - 160 mg/dl [facility] HDL 65 mg/dl [facility] Comment: Low:<40 High(Desirable):>or=60 LDL, Calculated 82 mg/dl [facility] Comment: Optimal:<100 Above optimal:100-129 Borderline High:130-159 High:160-189 Very High:>hc=994 Chol/HDL Ratio 2.5 [facility] Fasting? Yes [facility] 10/08/2009 8:15 EDT 10/08/2009 11:51 EDT Barbara Conway DIRECTOR OF COMMUNITY EDUCATION CHEMISTRY & BLOOD GAS ORDERAB LES Final Result Performing Organization Address [facility] Co de Phone Number [facility] [address] [place] [address] * (ABNORMAL) LIVER FUNCTION TESTS (10/08/2009 8:15 EDT) Pathologist [facility] Albumin 3.9 3.4 - 4.9 g/dl [facility] Total Protein 6.0(L) 6.5 - 8.3 g/dl [facility] Total Alkaline Phosphatase 86 38 - 126 U/L [facility] ALT 24 9 - 52 U/L [facility] AST 26 15 - 46 U/L [facility] Unconjugated Bilirubin 0.3 0.1 - 1.1 mg/dl [facility] Conjugated Bilirubin 0.0 0.0 - 0.3 mg/dl [facility] Bilirubin, Total <0.5 0.2 - 1.3 mg/dl [facility] 10/08/2009 8:15 EDT 10/08/2009 11:51 EDT Barbara Conway DIRECTOR OF COMMUNITY EDUCATION CHEMISTRY & BLOOD GAS ORDERAB LES Final Result Performing Organization Address [facility] de Phone Number [facility] [address] [place] [address] * HEMOGLOBIN A1C (10/08/2009 8:15 EDT) Hemoglobin A1C 6.5 % [facility] Comment: Reference Range: <5.7% Normal 5.7-6.4% Increased risk for diabetes =>6.5% Diagnostic for diabetes (if confirmed) The A1c goal for non adults in general is <7%. The A1c goal for selected patients may be significantly lower than 7% if this can be achieved without significant hypoglycemia or other adverse effects of treatment. Est Avg Glucose 140 mg/dl [facility] Comment: eAG represents the A1c result expressed as average glucose in mg/dl. 10/08/2009 8:15 EDT 10/08/2009 11:51 EDT us Barbara Conway DIRECTOR OF COMMUNITY EDUCATION CHEMISTRY & BLOOD GAS ORDERAB LES Final Result [facility] [address] [place] [address] documented in this encounter Visit Diagnoses Not on filedocumented in this encounter Care Teams Coffee Farmer Relationship Specialty Start Date End Date Barbara Conway, DIRECTOR OF COMMUNITY EDUCATION [address] [place] [address] PCP - General 08/14/08 07/22/13 documented as of this encounter
--- OUTSIDE RECORDS SUMMARY | 2024-03-18 22:14 | XMS_ITS | Encounter Summary ---
Author Organization [facility] Address [address] [place] [address] Care Team Providers Care Conductor Pullman Name Role Phone Barbara Conway MARINE EQUIPMENT RESEARCH ENGINEER Primary Care Provider [phone] Encounter Details Date Type Department Care Team (Latest Contact Info) Description 05/13/2009 9:59 EST - 05/13/2009 10:00 EST Hospital Encounter [facility] - Other [address] [place] [address] Barbara Conway, MARINE EQUIPMENT RESEARCH ENGINEER [address] [place], [place] [address] Discharge Disposition: Home or Self Care Social [...] mouth daily. Reported on 08/31/2016 04/30/2007 10/24/2019 [place]-3 Fatty Acids-Vitamin E (FISH OIL) 1,000 mg [...] Info) Description 03/27/2024 14:25 EST Hospital Encounter [facility] OR [address] [place] [phone] Vishal Castillo MD [address] [place] [phone] 03/27/2024 14:25 EST - 03/27/2024 17:55 EST Surgery [facility] OR [address] [place] [phone] Vishal Castillo MD [address] [place] [phone] Left Reverse Total Shoulder Arthroplasty [06688 (CPT??)] 04/08/2024 15:30 EST Post-op Visit [facility] Hand & Upper Extremity Program - [facility] [place] [address] Vishal Castillo MD [address] [place] [phone] Scheduled Procedures Name Priority Associated Diagnoses Date/Ti me ARTHROPLASTY, SHOULDER, TOTAL Left rotator cuff tear arthropathy 03/27/2024 14:25 EST documented as of this encounter Visit Diagnoses Not on filedocumented in this encounter Care Teams Conductor Pullman Relationship Specialty Start Date End Date Barbara Conway, MARINE EQUIPMENT RESEARCH ENGINEER [address] [place] [address] PCP - General 08/14/08 07/22/13 documented as of this encounter
--- OUTSIDE RECORDS SUMMARY | 2024-03-18 22:14 | XMS_ITS | Encounter Summary ---
Author Organization [facility] Address [address] [place] [address] Care Team Providers Care Curb Worker Name Role Phone Barbara Conway Myla AUTO BODY BUILDER APPRENTICE Primary Care Provider [phone] Encounter Details Date Type Department Care Team (Latest Contact Info) Description 11/24/2008 12:02 EDT - 11/24/2008 19:58 EDT Hospital Encounter [facility] Cardiovascular Unit [address] [place] [address] Iraida Crews MD Discharge Disposition: Home or [...] mouth daily. Reported on 08/31/2016 04/30/2007 10/24/2019 [place]-3 Fatty Acids-Vitamin E (FISH OIL) 1,000 mg Cap Take by mouth daily. 04/30/2007 01/06/2013 simvastatin (ZOCOR) 80 mg tablet Take 80 mg by mouth at bedtime. 04/30/2008 12/21/2012 documented as of this encounter Discharge Disposition Disposition Code Departure Means Destination Home or Self Care documented in this encounter Miscellaneous Notes * Scanned Note-Null - Inpatient, Physician - 01/19/2009 1103 EDT documented in this encounter Plan of Treatment Upcoming Encounters Date Type Department Care Team (Latest Contact Info) Description 03/27/2024 14:25 EST Hospital Encounter [facility] OR [address] [place] [address] [phone] Vishal Castillo MD [address] [place] [phone] 03/27/2024 14:25 EST - 03/27/2024 17:55 EST Surgery [facility] OR [address] [place] [address] [phone] Vishal Castillo MD [address] [place] [phone] Left Reverse Total Shoulder Arthroplasty [52870 (CPT??)] 04/08/2024 15:30 EST Post-op Visit [facility] Hand & Upper Extremity Program - [address] [place], [place] [phone] Vishal Castillo MD [address] [place] [phone] Scheduled Procedures Name Priority Associated Diagnoses Date/Ti me ARTHROPLASTY, SHOULDER, TOTAL Left rotator cuff tear arthropathy 03/27/2024 14:25 EST documented as of this encounter Visit Diagnoses Not on filedocumented in this encounter Care Teams Curb Worker Relationship Specialty Start Date End Date Barbara Conway, [place] [address] [place] [address] PCP - General 08/14/08 07/22/13 documented as of this encounter
--- OUTSIDE RECORDS SUMMARY | 2024-03-18 22:14 | XMS_ITS | Encounter Summary ---
Author Organization [facility] Address [address] [place] [address] Care Team Providers Care Steerer Name Role Phone Barbara Cunningham COMMUNITY SERVICE OFFICER COORDINATOR Primary Care Provider [phone] Encounter Details Date Type Department Care Team (Late st Contact Info) Description 07/13/2011 Results Only [facility] Laboratory Services - [facility] ([facility]) [address] [place] [address] [phone] Barbara Cunningham, COMMUNITY SERVICE OFFICER COORDINATOR [address] [place], [place] [address] Social History Tobacco Use Types Packs/Day Years [...] Encounter [facility] OR [address] [place], [place] [address] Vishal Castillo MD [address] [place] [phone] 03/27/2024 14:25 EST - 03/27/2024 17:55 EST Surgery [facility] OR [address] [place] [address] Vishal Castillo MD [address] [place] [phone] Left Reverse Total Shoulder Arthroplasty [[id number] (CPT??)] 04/08/2024 15:30 EST Post-op Visit [facility] Hand & Upper Extremity Program - [address] [address] Vishal Castillo MD [address] [place] [phone] Pending Results Name Type Priority Associated Diagnoses Date /Time PAP TEST- RESULT ONLY Pathology Routine 0:00 EDT Scheduled Procedures Name Priority Associated Diagnoses Date/Ti me ARTHROPLASTY, SHOULDER, TOTAL Left rotator cuff tear arthropathy 03/27/2024 14:25 EST documented as of this encounter Procedures Procedure Name Priority Date/Time Associated Diagnosis Comments URINE [id number] NE RATIO (ACR) Routine 07/13/2011 18:26 EDT PAP TEST- RESULT ONLY Routine 07/13/2011 0:00 EDT documented in this encounter Results * ALBUMIN, URINE (07/13/2011 18:26 EDT) Creatinine, Urn [place] 27.8 mg/dl [facility] Ur Albumin mg/dl 0.5 <1.9 mg/dl [facility] Ur Alb ug/mg Crea 18.0 ug/mg Crea [facility] Comment: Normal: <30 ug/mg creat High: 30-300 ug/mg creat Very high and nephrotic: >300 ug/mg creat 07/13/2011 18:2 6 EDT 07/13/2011 18:26 EDT us Barbara Cunningham NP CHEMISTRY & BLOOD GAS ORDERAB LES Final Result [facility] [address] [address] * PAP TEST- RESULT ONLY (07/13/2011 0:00 EDT) Pathology Report: CYTOPATHOLOGY REPORT Reports generated via electronic interface contain original data; however they are lacking the format of the original report. Caution should be taken when reading/interpreti ng unformatted reports. Name: ? ARETHA HILL ? Accession #: ? [id number] ? : ? 1945 (Age: 66) ??F ?Collect Date: ? 07/13/2011 ? Location: ? [facility] ? Receive Date: ? 07/14/2011 ? Provider: BARBARA CUNNINGHAM NP Copy to: ? Final Report SPECIMEN ADEQUACY ? Satisfactory for Evaluation - transformation zone component present - scant squamous epithelial component secondary to excessive inflammation GENERAL CATEGORIZATION ? Negative for Intraepithelial Lesion or Malignancy INTERPRETATION ? Reactive cellular changes associated with inflammation present (includes repair). Specimen/Source: ??Pap Test, Source Not Provided, CloubrainPrep Imaging System with manual evaluation Document reviewed and electronically signed by: ? SHERLYN CUEVAS MD ? Report ??Date: 07/20/2011 15:39 HPV with Pap Test ? Date Ordered: ? 07/20/2011 ? Status: ?? Signed Out ?Date Complete: ? 07/25/2011 ? By: ??System Interface ? Date Reported: ? 07/25/2011 ? Interpretation RESULT: Negative for HPV types 16, 18, 31, 33, 35, 39, 45, 51, 52, 56, 58, 59, and 68. Comments Document reviewed and electronically signed by: ? System Interface ? Report date: 07/25/2011 By the signature above, the attending physician certifies that he/she has personally conducted a gross and/or microscopic examination of the described specimens and rendered or confirmed the above diagnosis. End of Report [facility] 07/13/2011 07/14/2011 us Barbara Cunningham NP PATHOLOGY ORDERABLES Final Re sult [facility] [address] [place] [address] documented in this encounter Visit Diagnoses Not on filedocumented in this encounter Care Teams Steerer Relationship Specialty Start Date End Date Barbara Cunningham, COMMUNITY SERVICE OFFICER COORDINATOR [address] [place] [address] PCP - General 08/14/08 07/22/13 documented as of this encounter
--- OUTSIDE RECORDS SUMMARY | 2024-03-18 22:14 | XMS_ITS | Encounter Summary ---
Author Organization [facility] Address [address] [place] [address] Care Team Providers Care Ict Project Manager Name Role Phone Barbara Conway Myla TOSSER Primary Care Provider [phone] Encounter Details Date Type Department Care Team (Late st Contact Info) Description 04/29/2011 Orders Only [facility] General Surgery - [address] [phone] Arnel Oliva MD [address] [facility], [address] [place] [address] Personal history of malignant neoplasm of large intestine (Primary Dx) Social History Tobacco Use Types [...] Info) Description 03/27/2024 14:25 EST Hospital Encounter [facility] OR [address] [place], [place] [phone] Vishal Castillo MD [address] [place] [phone] 03/27/2024 14:25 EST - 03/27/2024 17:55 EST Surgery [facility] OR [address] [place], [place] [phone] Vishal Castillo MD [address] [place] [phone] Left Reverse Total Shoulder Arthroplasty [22726 (CPT??)] 04/08/2024 15:30 EST Post-op Visit [facility] Hand & Upper Extremity Program - [place] [address] [place] [address] Vishal Castillo MD [address] [place] [phone] Scheduled Procedures Name Priority Associated Diagnoses Date/Ti me ARTHROPLASTY, SHOULDER, TOTAL Left rotator cuff tear arthropathy 03/27/2024 14:25 EST documented as of this encounter Results * CEA (04/29/2011 11:18 EST) CEA 2.0 ng/ml [facility] Comment: % Distribution of CEA (ng/ml) 0-2.5 in 98.2% of non-smokers and 87.3% of smokers 2.6-5.0 in 1.8% of non-smokers and 8.0% of smokers 5.1-10.1 in 4.7% of smokers Serum CEA concentration should not be interpreted as absolute evidence for the presence or absence of malignant disease. Assayed utilizing Siemens (TopOPPS) chemiluminescent technology. ??Values obtained by using different assay methods cannot be used interchangeably. Blood specimen (specimen) 04/29/2011 11:18 EST 04/29/2011 11:30 EST us Arnel Oliva MD CHEMISTRY & BLOOD GAS ORDERAB LES Final Result [facility] [address] [place] [address] documented in this encounter Visit Diagnoses Diagnosis Personal history of malignant neoplasm of large intestine- Primary Left rotator cuff tear arthropathy documented in this encounter Care Teams Ict Project Manager Relationship Specialty Start Date End Date Barbara Conway NP [address] [facility] [place] [address] PCP - General 08/14/08 07/22/13 documented as of this encounter
--- OUTSIDE RECORDS SUMMARY | 2024-03-18 22:14 | XMS_ITS | Encounter Summary ---
Author Organization [facility] Address [address] [place] [address] Care Team Providers Care Necktie Maker Name Role Phone ZoraidaBarbara Myla EMS INSTRUCTOR Primary Care Provider [phone] Encounter Details Date Type Department Care Team (Late st Contact Info) Description 09/16/2009 8:27 EDT - 09/16/2009 23:59 EDT Hospital Encounter [facility] [address] [place] [address] Arnel Oliva MD [address] [facility], [address] [place] [address] Discharge Disposition: Home or Self [...] mouth daily. Reported on 08/31/2016 04/30/2007 10/24/2019 [place]-3 Fatty Acids-Vitamin E (FISH OIL) 1,000 mg Cap Take by mouth daily. 04/30/2007 01/06/2013 simvastatin (ZOCOR) 80 mg tablet Take 80 mg by mouth at bedtime. 04/30/2008 12/21/2012 documented as of this encounter Discharge Disposition Disposition Code Departure Means Destination Home or Self Residential documented in this encounter Procedure Notes * Inpatient, Physician - 09/17/2009 1401 EDTAssociated Order(s): ORDERS - SCANNED * Inpatient, Physician - 09/17/2009 1401 EDT documented in this encounter Miscellaneous Notes * Scanned Note-Null - Inpatient, Physician - 09/17/2009 1401 EDT * Brief Op Note - Inpatient, Physician - 09/17/2009 1401 EDT * Brief Op Note - Inpatient, Physician - 09/17/2009 1401 EDT * Scanned Note-Null - Inpatient, Physician - 09/17/2009 1228 EDT documented in this encounter Plan of Treatment Upcoming Encounters Date Type Department Care Team (Latest Contact Info) Description 03/27/2024 14:25 EST Hospital Encounter [facility] OR [address] [place] [phone] Vishal Castillo MD [address] [place] [phone] 03/27/2024 14:25 EST - 03/27/2024 17:55 EST Surgery [facility] OR [address] [place], [place] [phone] Vishal Castillo MD [address] [place] [phone] Left Reverse Total Shoulder Arthroplasty [82450 (CPT??)] 04/08/2024 15:30 EST Post-op Visit [facility] Hand & Upper Extremity Program - [address] [place] [address] Vishal Castillo MD [address] [place] [phone] Scheduled Procedures Name Priority Associated Diagnoses Date/Ti me ARTHROPLASTY, SHOULDER, TOTAL Left rotator cuff tear arthropathy 03/27/2024 14:25 EST documented as of this encounter Procedures Procedure Name Priority Date/Time Associated Diagnosis Comments ORDERS - SCANNED 09/17/2009 14:0 1 EDT CEA Routine 09/16/2009 10:18 EDT documented in this encounter Results * ORDERS - SCANNED (09/17/2009 14:01 EDT) 09/17/2009 14:0 1 EDT Narrative 09/17/2009 14:02 EDT Ordered by an unspecified provider. Transcriptions Inpatient, Physician - 09/17/2009 14:01 EDT Physician Inpatient MD ADMISSION ORDERABLES Elizabeth l Result * CEA (09/16/2009 10:18 EDT) CEA 2.0 ng/ml [facility] Comment: % Distribution of CEA (ng/ml) 0-2.5 in 98.2% of non-smokers and 87.3% of smokers 2.6-5.0 in 1.8% of non-smokers and 8.0% of smokers 5.1-10.1 in 4.7% of smokers Serum CEA concentration should not be interpreted as absolute evidence for the presence or absence of malignant disease. Assayed utilizing [employer] chemiluminescent technology. Values obtained by using different assay methods cannot be used interchangeably. PREVIOUS CEA WAS 1.8 ON 03/13/2009 AND 2.1 ON 08/22/2008 Blood specimen (specimen) 09/16/2009 10:18 EDT 09/16/2009 10:20 EDT us Arnel Oliva MD CHEMISTRY & BLOOD GAS ORDERAB LES Final Result [facility] [address] [place] [address] documented in this encounter Visit Diagnoses Not on filedocumented in this encounter Care Teams Necktie Maker Relationship Specialty Start Date End Date Barbara Conway, [place] [address] [place] [address] PCP - General 08/14/08 07/22/13 documented as of this encounter
--- OUTSIDE RECORDS SUMMARY | 2024-03-18 22:14 | XMS_ITS | Encounter Summary ---
Author Organization [facility] Address [address] [place] [address] Care Team Providers Care Automatic Brine Mixer Operator Name Role Phone Barbara Conway REGULATOR INSPECTOR Primary Care Provider [phone] Encounter Details Date Type Department Care Team (Late st Contact Info) Description 08/11/2011 Results Only Imaging [facility] [phone] Barbara Conway, REGULATOR INSPECTOR [address] [place], [place] [address] Social History Tobacco Use Types Packs/Day Years [...] Encounter [facility] OR [address] [place] [phone] Vishal Castillo MD [address] [place] [phone] 03/27/2024 14:25 EST - 03/27/2024 17:55 EST Surgery [facility] OR [address] [place] [phone] Vishal Castillo MD [address] [place] [phone] Left Reverse Total Shoulder Arthroplasty [12021 (CPT??)] 04/08/2024 15:30 EST Post-op Visit [facility] Hand & Upper Extremity Program - [address] [address] Vishal Castillo MD [address] [place] [address] Scheduled Procedures Name Priority Associated Diagnoses Date/Ti me ARTHROPLASTY, SHOULDER, TOTAL Left rotator cuff tear arthropathy 03/27/2024 14:25 EST documented as of this encounter Procedures Procedure Name Priority Date/Time Associated Diagnosis Comments MA MAMMO SCREENING DIGITAL 09/13/2011 11:15 EDT documented in this encounter Results * MA MAMMO SCREENING DIGITAL (09/13/2011 11:15 EDT) Anatomical Region Laterality Modality Other 09/13/2011 11:1 5 EDT 09/13/2011 19:46 EDT Narrative 09/13/2011 19:46 EDT Comparison has been made to previous images. Bilateral Breast Findings: (Routine digital views with CAD) The breasts are almost entirely fat (less than 25% fibroglandular). No significant masses, calcifications or other abnormalities are seen. IMPRESSION: BILATERAL BREASTS: Negative, no evidence of malignancy. Normal interval follow-up is recommended in 12 months. OVERALL ASSESSMENT - CATEGORY 1 - NEGATIVE END OF IMPRESSION The patient will be notified of her/his breast imaging results via a lay letter from Radiology. Radiology will contact the patient directly regarding any findings which require additional imaging (Category 0) at this time. Procedure Note 09/13/2011 Comparison has been made to previous images. Bilateral Breast Findings: (Routine digital views with CAD) The breasts are almost entirely fat (less than 25% fibroglandular). No significant masses, calcifications or other abnormalities are seen. IMPRESSION: BILATERAL BREASTS: Negative, no evidence of malignancy. Normal interval follow-up is recommended in 12 months. OVERALL ASSESSMENT - CATEGORY 1 - NEGATIVE END OF IMPRESSION The patient will be notified of her/his breast imaging results via a lay letter from Radiology. Radiology will contact the patient directly regarding any findings which require additional imaging (Category 0) at this time. us Barbara Conway NP IMG MAMMOGRAPHY ORDERABLES Fi nal Result documented in this encounter Visit Diagnoses Not on filedocumented in this encounter Care Teams Automatic Brine Mixer Operator Relationship Specialty Start Date End Date Barbara Conway, REGULATOR INSPECTOR [address] [place] [address] PCP - General 08/14/08 07/22/13 documented as of this encounter
--- OUTSIDE RECORDS SUMMARY | 2024-03-18 22:14 | XMS_ITS | Encounter Summary ---
Author Organization [facility] Address [address] [place] [address] Care Team Providers Care College Specialist Name Role Phone ZoraidaBarbara Myla REMOTE BROADCAST ENGINEER Primary Care Provider [phone] Reason for Visit * Reason Onset Date Comments Prior Auth, Other (i.e. radiology, etc.) 011 Encounter Details Date Type Department Care Team (Late st Contact Info) Description 07/23/[address] [facility] GENERAL SUR[facility]ERY [address] [place], [place] [phone] Arnel Oliva MD [address] [facility] [address] [place] [address] Prior Auth, Other (i.e. radiology, [...] * Telephone Encounter - Peg Thurman - 07/23/2010 1434 EDT DOS - 08/09/2010 - CPT - 05948 - ICD9 - V10.06 - [facility] [id number] documented in this encounter Plan of Treatment Upcoming Encounters Date Type Department Care Team (Latest Contact Info) Description 03/27/2024 14:25 EST Hospital Encounter [facility] OR [address] [place] [address] [phone] Vishal Castillo MD [address] [place] [phone] 03/27/2024 14:25 EST - 03/27/2024 17:55 EST Surgery [facility] OR [address] [place] [address] [phone] Vishal Castillo MD [address] [place] [phone] Left Reverse Total Shoulder Arthroplasty [59505 (CPT??)] 04/08/2024 15:30 EST Post-op Visit [facility] Hand & Upper Extremity Program - [address] [place], [place] [phone] Vishal Castillo MD [address] [phone] Scheduled Procedures Name Priority Associated Diagnoses Date/Ti me ARTHROPLASTY, SHOULDER, TOTAL Left rotator cuff tear arthropathy 03/27/2024 14:25 EST documented as of this encounter Visit Diagnoses Not on filedocumented in this encounter Care Teams College Specialist Relationship Specialty Start Date End Date Barbara Conway NP [address] [place] [address] PCP - General 08/14/08 07/22/13 documented as of this encounter
--- OUTSIDE RECORDS SUMMARY | 2024-03-18 22:14 | XMS_ITS | Encounter Summary ---
Author Organization [facility] Address [address] [place] [address] Care Team Providers Care Tourist Information Assistant Name Role Phone EduardoBarbara cherry Myla SUPERVISOR PA[employer] Primary Care Provider [phone] Encounter Details Date Type Department Care Team (Late st Contact Info) Description 10/06/2009 Office Visit [facility] General Surgery - [facility] [address] [place], [place] [address] Arnel Oliva MD 111 [facility] [address] [place] [address] Social History Tobacco Use Types Packs/Day Years Used Date Smoking Tobacco: Never Assessed Comments Unknown Sex and Gender Information Value Date Recorded Sex Assigned at Female 03/08/2024 18:30 EST Legal Sex Female 18:30 EST Gender Identity Female 05/28/2019 8:56 EST Sexual Orientation Not on file documented as of this encounter Progress Notes * Arnel Oliva MD - 11/05/2009 1130 EDT DIVISION OF GENERAL SURGERY October 06, 2009 ARETHA HILL [address] [place] [address] Dear Aretha: Good news! Your CEA is less than 0.5. This is entirely within normal limits and indicative of no recurrent colorectal cancer. I hope you are doing well and I look forward to seeing you at your next scheduled visit. If I may be of any further assistance, please do not hesitate to contact me. Yours truly, Electronically Signed by Arnel Oliva MD, FACS 11/05/2009 11:30 Miguel Angel Oliva MD, [phone] A Cataldo, MD, FACS - Arnel Oliva MD, FACS - CD Job ID: SM Doc ID: [id number] Ext Doc ID: [id number] cc: The Patient documented in this encounter Plan of Treatment Upcoming Encounters Date Type Department Care Team (Latest Contact Info) Description 03/27/2024 14:25 EST Hospital Encounter [facility] OR [address] [place] [address] [phone] Vishal Castillo MD [address] [place] [phone] 03/27/2024 14:25 EST - 03/27/2024 17:55 EST Surgery [facility] OR [address] [place] [address] [phone] Vishal Castillo MD [address] [place] [phone] Left Reverse Total Shoulder Arthroplasty [60190 (CPT??)] 04/08/2024 15:30 EST Post-op Visit [facility] Hand & Upper Extremity Program - [address] [place] [address] Vishal Castillo MD [address] [place] [phone] Scheduled Procedures Name Priority Associated Diagnoses Date/Ti me ARTHROPLASTY, SHOULDER, TOTAL Left rotator cuff tear arthropathy 03/27/2024 14:25 EST documented as of this encounter Visit Diagnoses Not on filedocumented in this encounter Care Teams Tourist Information Assistant Relationship Specialty Start Date End Date Barbara Conway NP [address] [place] [address] PCP - General 08/14/08 07/22/13 documented as of this encounter
--- OUTSIDE RECORDS SUMMARY | 2024-03-18 22:14 | XMS_ITS | Encounter Summary ---
Author Organization [facility] Address [address] [place] [address] Care Team Providers Care Coating Manager Name Role Phone Barbara Conway AUTOMATION QA ANALYST Primary Care Provider [phone] Encounter Details Date Type Department Care Team (Late st Contact Info) Description 10/07/2008 Orders Only [address] [address] Barbara Conway, AUTOMATION QA ANALYST [address] [place], [place] [phone] Social History Tobacco Use Types Packs/Day Years [...] Info) Description 03/27/2024 14:25 EST Hospital Encounter [facility] OR [address] [place] [address] Vishal Castillo MD [address] [place] [phone] 03/27/2024 14:25 EST - 03/27/2024 17:55 EST Surgery [facility] OR [address] [place], [place] [phone] Vishal Castillo MD [address] [place] [phone] Left Reverse Total Shoulder Arthroplasty [64847 (CPT??)] 04/08/2024 15:30 EST Post-op Visit [facility] Hand & Upper Extremity Program - [address] [place] [address] Vishal Castillo MD [address] [place] [phone] Scheduled Procedures Name Priority Associated Diagnoses Date/Ti me ARTHROPLASTY, SHOULDER, TOTAL Left rotator cuff tear arthropathy 03/27/2024 14:25 EST documented as of this encounter Procedures Procedure Name Priority Date/Time Associated Diagnosis Comments MA MAMMO SCREENING DIGITAL 10/07/2008 10:54 EDT documented in this encounter Results * MA MAMMO SCREENING DIGITAL (10/07/2008 10:54 EDT) Anatomical Region Laterality Modality Other 10/07/2008 10:5 4 EDT 10/08/2008 22:48 EDT Narrative 10/08/2008 22:48 EDT Comparison is made to films from 10/01/2007 (bilateral) and films from [...] (Category 0) at this time. Procedure Note 10/08/2008 Comparison is made to films from 10/01/2007 (bilateral) and films from [...] on filedocumented in this encounter Care Teams Coating Manager Relationship Specialty Start Date End Date Barbara Conway, AUTOMATION QA ANALYST [address] [place] [address] PCP - General 08/14/08 07/22/13 documented as of this encounter
--- OUTSIDE RECORDS SUMMARY | 2024-03-18 22:14 | XMS_ITS | Encounter Summary ---
Author Organization [facility] Address [address] [place] [address] Care Team Providers Care Civil Division Deputy Sheriff Name Role Phone Barbara Conway Myla DATA WAREHOUSING ENGINEER Primary Care Provider [phone] Encounter Details Date Type Department Care Team (Late st Contact Info) Description 04/29/2011 Phlebotomy Only [address] [phone] Product Safety Compliance Leader, Outpatient Personal history of malignant neoplasm of large intestine Social History Tobacco Use Types Packs/Day Years [...] Description 03/27/2024 14:25 EST Hospital Encounter [facility] OR [address] [place] [phone] Vishal Castillo MD [address] [place] [phone] 03/27/2024 14:25 EST - 03/27/2024 17:55 EST Surgery [facility] OR [address] [place] [phone] Vishal Castillo MD [address] [place] [phone] Left Reverse Total Shoulder Arthroplasty [58488 (CPT??)] 04/08/2024 15:30 EST Post-op Visit [facility] Hand & Upper Extremity Program - [facility] [address] [place] [address] Vishal Castillo MD [address] [place] [phone] Scheduled Procedures Name Priority Associated Diagnoses Date/Ti me ARTHROPLASTY, SHOULDER, TOTAL Left rotator cuff tear arthropathy 03/27/2024 14:25 EST documented as of this encounter Procedures Procedure Name Priority Date/Time Associated Diagnosis Comments CEA Routine 04/29/2011 11:18 EST Personal history of malignant neoplasm of large intestine documented in this encounter Results * CEA (04/29/2011 11:18 EST) CEA 2.0 ng/ml [facility] Comment: % Distribution of CEA (ng/ml) 0-2.5 in 98.2% of non-smokers and 87.3% of smokers 2.6-5.0 in 1.8% of non-smokers and 8.0% of smokers 5.1-10.1 in 4.7% of smokers Serum CEA concentration should not be interpreted as absolute evidence for the presence or absence of malignant disease. Assayed utilizing [employer] ([employer]) chemiluminescent technology. ??Values obtained by using different assay methods cannot be used interchangeably. Blood specimen (specimen) 04/29/2011 11:18 EST 04/29/2011 11:30 EST us Arnel Oliva MD CHEMISTRY & BLOOD GAS ORDERAB LES Final Result [facility] [address] [place] [address] documented in this encounter Visit Diagnoses Diagnosis Personal history of malignant neoplasm of large intestine Left rotator cuff tear arthropathy documented in this encounter Care Teams Civil Division Deputy Sheriff Relationship Specialty Start Date End Date Barbara Conway NP [address] [place] [address] PCP - General 08/14/08 07/22/13 documented as of this encounter
--- OUTSIDE RECORDS SUMMARY | 2024-03-18 22:15 | XMS_ITS | Encounter Summary ---
Author Organization [facility] Address [address] [place] [address] Care Team Providers Care Laser Beam Machine Operator Name Role Phone ZoraidaBarbara Myla HEAD FILTER PRESS TENDER Primary Care Provider [phone] Encounter Details Date Type Department Care Team (Late st Contact Info) Description 06/12/2008 Office Visit [facility] [place] [facility] [address] [place] [address] Mitch Gresham PA-C [address] [phone] Social History Tobacco Use Types Packs/Day Years Used Date Smoking Tobacco: Never Assessed Comments Unknown Sex and Gender Information Value Date Recorded Sex Assigned at Female 03/08/2024 18:30 EST Legal Sex Female 18:30 EST Gender Identity Female 05/28/2019 8:56 EST Sexual Orientation Not on file documented as of this encounter Progress Notes * Mitch Gresham - 06/05/2009 1613 EST Department - Physician Summary Registration Date/Time: 06/12/2008 13:35 Time Seen: 15:19. Arrived- By private vehicle. Historian- patient. HISTORY OF PRESENT ILLNESS Chief complaint- UPPER EXTREMITY PAIN and SWELLING. This started about 2 weeks ago and is still present. The quality is noted to be pain. Symptoms located in the area of the left hand. She has had swelling. Patient denies an injury. REVIEW OF SYSTEMS No fever, chills or headache. PAST HISTORY See nurses notes. Medications: The patient's medications have been reviewed. Allergies: The patient's allergies have been reviewed. ADDITIONAL NOTES The nursing notes have been reviewed. PHYSICAL EXAM Appearance: Alert. Oriented X3. Patient in mild distress. Vital Signs: Have been reviewed. Respiratory: No respiratory distress. Skin: Skin intact. Normal skin color and turgor. Skin warm and dry. Extremities: Tip of left little finger: mild tenderness and moderate swelling. No erythema, laceration of tip of left little finger or puncture wound. No subungual hematoma, nail avulsion, exposed bone or loss of the nail bed on the left little finger or tip amputation of the left little finger. Neuro: Oriented X 3. LABS, X-RAYS, AND EKG X-Rays: Left digit (s) negative. The X-rays were independently viewed by me and interpreted by the radiologist. PROGRESS AND PROCEDURES Digital Nerve Block: Digital nerve block performed on the left little finger. Web space approach utilized. Landmarks identified. Skin prepped. Total volume of 3 mL 1% Lidocaine infiltrated via two punctures. Patient cooperative during procedure. No complications encountered. Excellent anesthesia achieved. Incision & Drainage of Abscess: The abscess is located in the left little finger. Anesthesia provided by digital block using 1% lidocaine. The abscess was incised with a #11 surgical blade. smallamount of clear gelatinous material expressed from incision site.. ED Attending on duty and available for supervision: Linda Dominguez. Disposition: Condition: good. Discharged home. Discharged home in good condition. CLINICAL IMPRESSION [place] left little finger. INSTRUCTIONS Protect wound and keep wound area clean. Leave dressing in place until seen in follow-up. Warnings: INFECTION: Watch for signs of infection (increasing heat and redness, pus-like drainage, swelling, or increased pain). Return or see your doctor if these signs occur. Your Current Medications: Your current home medications have been reviewed by the Emergency Department physician registered medical assistant. No changes in your current home medications are recommended at this time. Continue taking the following medications: Actos: 30mg. Atenolol: 50mg daily. Glucophage: 1000mg daily. Keflex: 500mg four times a day. Lisinopril: 40mg daily. Zocor: 40mg daily.. OTC Medications: Acetaminophen (available over the counter): take according to label instructions. Motrin (available over the counter): take according to label instructions. Follow-up: Follow up with your doctor for wound check in two days. Understanding of the discharge instructions verbalized by patient. (Electronically signed by Ruth Alves 06/12/2008 20:29) Department - Nursing Summary Registration Date/Time: 06/12/2008 13:35 TRIAGE Initial Assessment Triage time 13:36 Jun 12 2008. Acuity: LEVEL 4. BP: 106 / 51. HR: 68. RR: 12. Temp: 36.0. --1341 Trisha Kowalski R.N.. Medications Actos: 30mg. Atenolol: 50mg daily. Glucophage: 1000mg daily. Keflex: 500mg four times a day. Lisinopril: 40mg daily. Zocor: 40mg daily. --1341 Trisha Kowalski R.N.. Allergies No known drug allergies. --1341 Trisha Kowalski R.N.. History Chief Complaint: JOINT PAIN.(3 weeks ago). Pain level now: 0/10. (Pt reports onset 3 to 4 weeks agoof left pinky finger pain, has had pain and the finger is starting to harden up pt has seen PMD, has appointment 3/3 for ortho referral, PMD wanted to have re-eval of finger. Pt on antibiotics for finger.). PAST HX: Diabetes mellitus. Hypertension. Hyperlipidemia. SOCIAL HX: No report of abuse. Arrived by private vehicle and accompanied by family. Historian: patient. --1341 Trisha Kowalski R.N.. NURSING PROGRESS NOTES Call light placed in reach. Patient ready for evaluation. --5417 Sukh JaegerMPamTPam Sterile dressing consisting of adaptic was applied. Secured with tube gauze. --0458 Sukh ReyesMKelvin. DISPOSITION / DISCHARGE Condition at departure: improved and stable. Patient reports pain level on departure as 0/10. Fall riskassessment completed. No fall risk identified. No learning barriers present. Discharge instructions reviewed with the patient. Patient verbalized understanding. Written instructions provided in Occitan. The patient was discharged home and accompanied by spa consultant. The patient left the Emergency Department ambulatory. --6446 Fabiola Dempsey R.N.. Jacob Kilgore R.N., R.N. Locked/Released at 06/12/2008 16:57 by Fabiola Dempsey R.N. documented in this encounter Plan of Treatment Upcoming Encounters Date Type Department Care Team (Latest Contact Info) Description 03/27/2024 14:25 EST Hospital Encounter [facility] OR [address] [place] [address] [phone] Vishal Castillo MD [address] [place] [phone] 03/27/2024 14:25 EST - 03/27/2024 17:55 EST Surgery [facility] OR [address] [place] [address] [phone] Vishal Castillo MD [address] [place] [phone] Left Reverse Total Shoulder Arthroplasty [81192 (CPT??)] 04/08/2024 15:30 EST Post-op Visit [facility] Hand & Upper Extremity Program - [address] [place] [address] Vishal Castillo MD [address] [place] [phone] Scheduled Procedures Name Priority Associated Diagnoses Date/Ti me ARTHROPLASTY, SHOULDER, TOTAL Left rotator cuff tear arthropathy 03/27/2024 14:25 EST documented as of this encounter Visit Diagnoses Not on filedocumented in this encounter Care Teams Laser Beam Machine Operator Relationship Specialty Start Date End Date Barbara Conway NP [address] [place] [address] PCP - General 08/14/08 07/22/13 documented as of this encounter
--- OUTSIDE RECORDS SUMMARY | 2024-03-18 22:15 | XMS_ITS | Encounter Summary ---
Author Organization [facility] Address [address] [place] [address] Care Team Providers Care Trench Pipe Layer Name Role Phone Unavailable Primary Care Provider Unavailabl e Encounter Details Date Type Department Care Team (Late st Contact Info) Description 04/19/2007 6:42 EST - 04/19/2007 11:59 EST Hospital Encounter [facility] - Other [address] [place] [address] Kristina [place] MD Discharge Disposition: Home or [...] 1 Tablet by mouth every morning. 04/30/1987 aspirin 81 mg EC tablet Take 81 mg by mouth daily. 04/30/1986 01/06/2013 Calcium-Cholecalc iferol, D3, (CALCIUM 600 + D,3,) 600-200 mg-unit Cap Take by mouth daily. 04/30/1999 10/24/2019 docusate sodium (COLACE) 100 mg capsule Take 100 mg by mouth as needed. 04/30/2006 01/06/2013 documented as of this encounter Discharge Disposition Disposition Code Departure Means Destination Home or Self Care documented in this encounter Plan of Treatment Upcoming Encounters Date Type Department Care Team (Latest Contact Info) Description 03/27/2024 14:25 EST Hospital Encounter [facility] OR [address] [place] [address] Vishal Castillo MD [address] [place] [phone] 03/27/2024 14:25 EST - 03/27/2024 17:55 EST Surgery [facility] OR [address] [place] [address] Vishal Castillo MD [address] [place] [phone] Left Reverse Total Shoulder Arthroplasty [48424 (CPT??)] 04/08/2024 15:30 EST Post-op Visit [facility] Hand & Upper Extremity Program - [address] [address] Vishal Castillo MD [address] [place] [phone] Scheduled Procedures Name Priority Associated Diagnoses Date/Ti me ARTHROPLASTY, SHOULDER, TOTAL Left rotator cuff tear arthropathy 03/27/2024 14:25 EST documented as of this encounter Visit Diagnoses Not on filedocumented in this encounter
--- OUTSIDE RECORDS SUMMARY | 2024-03-18 22:15 | XMS_ITS | Encounter Summary ---
Author Organization [facility] Address [address] [place] [address] Care Team Providers Care Pool Manager Name Role Phone Barbara Conway SCHOOL PHOTOGRAPH EDITOR Primary Care Provider [phone] Encounter Details Date Type Department Care Team (Late st Contact Info) Description 06/05/2007 Results Only [facility] [place] conversion [address] [place] [id number] Barbara Conway, SCHOOL PHOTOGRAPH EDITOR [address] [place], [place] [address] Social History Tobacco Use Types Packs/Day Years [...] Description 03/27/2024 14:25 EST Hospital Encounter [facility] [place] [address] [place] [address] Vishal Castillo MD [address] [place] [phone] 03/27/2024 14:25 EST - 03/27/2024 17:55 EST Surgery [facility] [place] [address] [place] [address] Vishal Castillo MD [address] [place] [phone] Left Reverse Total Shoulder Arthroplasty [01533 (CPT??)] 04/08/2024 15:30 EST Post-op Visit [facility] Hand & Upper Extremity Program - [address] [place] [address] Vishal Castillo MD [address] [place] [address] Scheduled Procedures Name Priority Associated Diagnoses Date/Ti me ARTHROPLASTY, SHOULDER, TOTAL Left rotator cuff tear arthropathy 03/27/2024 14:25 EST documented as of this encounter Procedures Procedure Name Priority Date/Time Associated Diagnosis Comments URINE [id number] RATIO (ACR) Routine 06/05/2007 9:00 EST TSH Routine 06/05/2007 9:00 EST HEMOGLOBIN A1C Routine 06/05/2007 9:00 EST LIPID PROFILE (INCLUDES CHOLESTEROL, TRIGLYCERIDES, HDL, LDL) Routine 06/05/2007 9:00 EST COMPREHENSIVE METABOLIC PANEL (CMP) Routine 06/05/2007 9:00 EST documented in this encounter Results * MICROALBUMIN (06/05/2007 9:00 EST) Creatinine, Urn Hanna 127.1 mg/dl [facility] Ur Albumin mg/dl 1.2 <1.9 mg/dl [facility] Ur Alb ug/mg Crea 9.4 ug/mg Crea [facility] Comment: Normal: ??<30 ug/mg Creat Microalbuminuria: ??30-300 ug/mg Creat Clinical albuminuria: ??>300 ug/mg Creat 06/05/2007 9:00 EST 06/05/2007 11:04 EST Barbara Conway SCHOOL PHOTOGRAPH EDITOR CHEMISTRY & BLOOD GAS ORDERAB LES Final Result Performing Organization Address City/[facility] Co de Phone Number [facility] [address] [place] [address] * TSH (06/05/2007 9:00 EST) TSH 1.48 0.35 - 5.00 uIU/mL [facility] 06/05/2007 9:00 EST 06/05/2007 11:02 EST Barbara Conway SCHOOL PHOTOGRAPH EDITOR CHEMISTRY & BLOOD GAS ORDERAB LES Final Result Performing Organization Address [facility] de Phone Number [facility] [address] [place] [address] * LIPID PROFILE (INCLUDES CHOLESTEROL, TRIGLYCERIDES, HDL, LDL) (06/05/2007 9:00 EST) Pathologist [facility] Cholesterol 176 mg/dl [facility] Comment: Desirable:<200 Borderline:200-239 High Risk:>nt=642 Triglycerides 104 35 - 160 mg/dl [facility] HDL 63 mg/dl [facility] Comment: Highly Desirable:>60 Desirable:35-60 High Risk:<35 LDL, Calculated 92 mg/dl [facility] Comment: Desirable:<130 Borderline:130-159 High Risk:>oc=106 Chol/HDL Ratio 2.8 [facility] Fasting? Yes [facility] 06/05/2007 9:00 EST 06/05/2007 11:02 EST Barbara Conway SCHOOL PHOTOGRAPH EDITOR CHEMISTRY & BLOOD GAS ORDERAB LES Final Result Performing Organization Address [facility] Co de Phone Number [facility] [address] [place] [address] * (ABNORMAL) COMPREHENSIVE METABOLIC PANEL (06/05/2007 9:00 EST) Potassium 4.4 3.5 - 5.0 mEq/L [facility] Sodium 142 136 - 145 mEq/L [facility] Chloride 109 96 - 110 mEq/L [facility] CO2 28 24 - 32 mEq/L [facility] Total Alkaline Phosphatase 83 38 - 126 U/L [facility] Bilirubin, Total <0.5 0.2 - 1.3 mg/dl [facility] AST 26 15 - 46 U/L [facility] ALT 21 9 - 52 U/L [facility] Albumin 4.2 3.4 - 4.9 g/dl [facility] Total Protein 7.0 6.5 - 8.3 g/dl [facility] Creatinine 0.75 0.7 - 1.5 mg/dl [facility] GFR, Calculated >60 ml/min/1.7 3m2 [facility] BUN 19 10 - 26 mg/dl [facility] Calcium 9.6 8.5 - 10.5 mg/dl [facility] Calculated Calcium 9.8 8.5 - 10.5 mg/dl [facility] Glucose, Serum 109(H) 70 - 100 mg/dl [facility] Fasting? Yes [facility] 06/05/2007 9:00 EST 06/05/2007 11:02 EST us Barbara Conway SCHOOL PHOTOGRAPH EDITOR CHEMISTRY & BLOOD GAS ORDERAB LES Final Result Performing Organization Address [facility] Co de Phone Number [facility] [address] [place] [address] * HEMOGLOBIN A1C (06/05/2007 9:00 EST) Hemoglobin A1C 5.9 % [facility] Comment: Reference Range: <6% Normal range ADA guidelines: The A1c goal for non adults in general is <7%. The A1c goal for selected individual patients is as close to normal (<6%) as possible without significant hypoglycemia. 06/05/2007 9:00 EST 06/05/2007 11:02 EST us Barbara Conway SCHOOL PHOTOGRAPH EDITOR CHEMISTRY & BLOOD GAS ORDERAB LES Final Result Performing Organization Address [facility]/ZIP Co de Phone Number [facility] [address] [place] [address] documented in this encounter Visit Diagnoses Not on filedocumented in this encounter Care Teams Pool Manager Relationship Specialty Start Date End Date Barbara Conway, SCHOOL PHOTOGRAPH EDITOR [address] [place] [address] PCP - General 08/14/08 07/22/13 documented as of this encounter
--- OUTSIDE RECORDS SUMMARY | 2024-03-18 22:15 | XMS_ITS | Encounter Summary ---
Author Organization [facility] Address [address] [place] [address] Care Team Providers Care Handle Assembler Name Role Phone Juantessjo annBarbara Myla SCHOOL PHYSICAL THERAPIST Primary Care Provider [phone] Encounter Details Date Type Department Care Team (Latest Contact Info) Description 09/03/2008 9:24 EDT - 09/03/2008 23:59 EDT Hospital Encounter [address] [address] Miguel Iraheta MD [address] [place] [address] Discharge Disposition: Auto Discharge Social History Tobacco [...] mouth daily. Reported on 08/31/2016 04/30/2007 10/24/2019 [place]-3 Fatty Acids-Vitamin E (FISH OIL) 1,000 mg Cap Take by mouth daily. 04/30/2007 01/06/2013 simvastatin (ZOCOR) 80 mg tablet Take 80 mg by mouth at bedtime. 04/30/2008 12/21/2012 documented as of this encounter Discharge Disposition Disposition Code Departure Means Destination Auto Discharge Home documented in this encounter OR Notes * OR Surgeon - Miguel Iraheta MD - 09/03/2008 0000 EDT PROCEDURE REPORT PT TYPE: OP SERVICE DATE: 09/03/2008 SURGEON: Miguel Iraheta MD WEAVING TEACHER: None. PREOPERATIVE DIAGNOSIS Left small finger ganglion cyst of tendon sheath. POSTOPERATIVE DIAGNOSIS Left small finger ganglion cyst of tendon sheath. PROCEDURE Left small finger volar ganglion cyst of tendon sheath excision. ANESTHESIA Local. INDICATIONS Ms Garcia is a 63-year-old right-hand dominant woman who has had a left small finger ganglion cyst,which has popped several times. It is painful and has recurred each time. Risks and benefits of operative intervention were discussed with her and she wished to proceed. NARRATIVE Patient was seen preoperatively and her left small finger was identified as the operative site. Shewas brought back to the operating room and placed supine on the OR table. Local anesthesia was given with a digital block. Her left hand and arm were prepped and draped in the standard sterile manner. A tournicot was place onto her small finger to exsanguinate the digit and prevent any bleeding. A 1.5 cm incision was made over the radial aspect of the small finger at its tip just radial to thecyst. Blunt dissection was carried out down to the cyst itself, which was clearly identified. The cyst was then entered to decompress it. Cystic fluid was found at the site. The cyst was then dissected free of surrounding soft tissue using blunt dissection. It was traced back to the tendon sheath of the small finger flexor tendons. The cyst was excised at the baseof the cyst. The wound was irrigated using normal saline. The wound was closed using 5-0 nylon in an interrupted simple stitch. The wound was dressed using Xeroform and gauze. The tournicot was let down and the finger was seen to be w arm and pink. All counts were correct at the end of the case. I was present and scrubbed for the entirety of the case. Patient had no drains, packs or foreign materials. No complications. Minimal estimated blood loss. No specimens or cultures. Disposition is to home. Unless otherwise noted, there were no complications, no blood loss, cultures obtained, specimens removed, or drains retained. ESTIMATED BLOOD LOSS Minimal. FLUIDS SPECIMENS None. COMPLICATIONS None. Signed by Miguel Iraheta MD 09/17/2008 19:33 Miguel Iraheta MD - Miguel Iraheta MD P - [facility] Job ID: [id number] Document ID: [id number] cc: MD Barbara Quintana NP documented in this encounter Plan of Treatment Upcoming Encounters Date Type Department Care Team (Latest Contact Info) Description 03/27/2024 14:25 EST Hospital Encounter [facility] OR [address] [place] [phone] Vishal Castillo MD [address] [place] [phone] 03/27/2024 14:25 EST - 03/27/2024 17:55 EST Surgery [facility] OR [address] [place], [place] [phone] Vishal Castillo MD [address] [place] [phone] Left Reverse Total Shoulder Arthroplasty [32826 (CPT??)] 04/08/2024 15:30 EST Post-op Visit [facility] Hand & Upper Extremity Program - [address] [place] [address] Vishal Castillo MD [address] [place] [phone] Scheduled Procedures Name Priority Associated Diagnoses Date/Ti me ARTHROPLASTY, SHOULDER, TOTAL Left rotator cuff tear arthropathy 03/27/2024 14:25 EST documented as of this encounter Visit Diagnoses Not on filedocumented in this encounter Care Teams Handle Assembler Relationship Specialty Start Date End Date Barbara Conway, SCHOOL PHYSICAL THERAPIST [address] [place] [address] PCP - General 08/14/08 07/22/13 documented as of this encounter
--- OUTSIDE RECORDS SUMMARY | 2024-03-18 22:15 | XMS_ITS | Encounter Summary ---
Author Organization [facility] Address [address] [place] [address] Care Team Providers Care Zig Zag Spring Machine Operator Name Role Phone Juantessjo annBarbara Myla NOZZLE OPERATOR Primary Care Provider [phone] Encounter Details Date Type Department Care Team (Late st Contact Info) Description 08/22/2008 10:39 EDT - 08/22/2008 23:59 EDT Hospital Encounter [facility] [address] [place] [address] Arnel Oliva MD [address] [facility], [address] [place] [address] Social History Tobacco Use Types [...] mouth daily. Reported on 08/31/2016 04/30/2007 10/24/2019 [place]-3 Fatty Acids-Vitamin E (FISH OIL) 1,000 mg Cap Take by mouth daily. 04/30/2007 01/06/2013 simvastatin (ZOCOR) 80 mg tablet Take 80 mg by mouth at bedtime. 04/30/2008 12/21/2012 documented as of this encounter Discharge Disposition Disposition Code Departure Means Destination Home documented in this encounter Plan of Treatment Upcoming Encounters Date Type Department Care Team (Latest Contact Info) Description 03/27/2024 14:25 EST Hospital Encounter [facility] [place] [address] [place] [phone] Vishal Castillo MD [address] [place] [phone] 03/27/2024 14:25 EST - 03/27/2024 17:55 EST Surgery [facility] [place] [address] [place] [phone] Vishal Castillo MD [address] [place] [phone] Left Reverse Total Shoulder Arthroplasty [29552 (CPT??)] 04/08/2024 15:30 EST Post-op Visit [facility] Hand & Upper Extremity Program - [facility] [place] [address] Vishal Castillo MD [address] [place] [phone] Scheduled Procedures Name Priority Associated Diagnoses Date/Ti me ARTHROPLASTY, SHOULDER, TOTAL Left rotator cuff tear arthropathy 03/27/2024 14:25 EST documented as of this encounter Procedures Procedure Name Priority Date/Time Associated Diagnosis Comments CEA Routine 08/22/2008 10:45 EDT documented in this encounter Results * CEA (08/22/2008 10:45 EDT) CEA 2.1 ng/ml [facility] Comment: % Distribution of CEA (ng/ml) 0-2.5 in 98.2% of non-smokers and 87.3% of smokers 2.6-5.0 in 1.8% of non-smokers and 8.0% of smokers 5.1-10.1 in 4.7% of smokers Serum CEA concentration should not be interpreted as absolute evidence for the presence or absence of malignant disease. Assayed utilizing Altair Prep chemiluminescent technology. Values obtained by using different assay methods cannot be used interchangeably. Blood specimen (specimen) 08/22/2008 10:45 EDT 08/22/2008 10:51 EDT us Arnel Oliva MD CHEMISTRY & BLOOD GAS ORDERAB LES Final Result [facility] [address] [place] [address] documented in this encounter Visit Diagnoses Not on filedocumented in this encounter Care Teams Zig Zag Spring Machine Operator Relationship Specialty Start Date End Date Barbara Conway NP [address] [place] [address] PCP - General 08/14/08 07/22/13 documented as of this encounter
--- OUTSIDE RECORDS SUMMARY | 2024-03-18 22:15 | XMS_ITS | Encounter Summary ---
Author Organization [facility] Address [address] [place] [address] Care Team Providers Care Remnants Cutter Name Role Phone Unavailable Primary Care Provider Unavailabl e Encounter Details Date Type Department Care Team (Late st Contact Info) Description 09/28/2007 8:06 EDT - 09/28/2007 11:59 EDT Hospital Encounter [address] [address] Arnel Oliva MD [address] [facility], [address] [place] [phone] Discharge Disposition: Auto Discharge Social History Tobacco [...] 81 mg by mouth daily. 04/30/1986 01/06/2013 BETA-CAROTENE,A, W-C & E (ANTI-OXIDANT ORAL) Take [...] mouth daily. Reported on 08/31/2016 04/30/2007 10/24/2019 [place]-3 Fatty Acids-Vitamin E (FISH OIL) 1,000 mg Cap Take by mouth daily. 04/30/2007 01/06/2013 documented as of this encounter Discharge Disposition Disposition Code Departure Means Destination Auto Discharge documented in this encounter Plan of Treatment Upcoming Encounters Date Type Department Care Team (Latest Contact Info) Description 03/27/2024 14:25 EST Hospital Encounter [facility] OR [address] [place] [phone] Vishal Castillo MD [address] [place] [phone] 03/27/2024 14:25 EST - 03/27/2024 17:55 EST Surgery [facility] OR [address] [place] [phone] Vishal Castillo MD [address] [place] [phone] Left Reverse Total Shoulder Arthroplasty [45571 (CPT??)] 04/08/2024 15:30 EST Post-op Visit [facility] Hand & Upper Extremity Program - [address] [address] Vishal Castillo MD [address] [place] [phone] Scheduled Procedures Name Priority Associated Diagnoses Date/Ti me ARTHROPLASTY, SHOULDER, TOTAL Left rotator cuff tear arthropathy 03/27/2024 14:25 EST documented as of this encounter Procedures Procedure Name Priority Date/Time Associated Diagnosis Comments CT CHEST, ABDOMEN, PELVIS W CONTRAST 09/28/2007 10:13 EDT documented in this encounter Results * CT CHEST, ABDOMEN, PELVIS W CONTRAST (09/28/2007 10:13 EDT) Anatomical Region Laterality Modality Other 09/28/2007 10:1 3 EDT Narrative 10/05/2008 12:[address] chest, abdomen, pelvis: ??September 28, 2007 10:13:00 AM Clinical History: rectal CA. Comparison: June 2006. Oral contrast was given prior to scanning. ??During the exam, intravenous administration of 100 cc of 370% nonionic contrast at a rate of 2 cc/second was administered. Technique Chest: Images were obtained from the thoracic inlet through the entire chest. Technique Abdomen: After the above preparation, sections were made from the lower chest to the iliac crests. Technique Pelvis: After the above preparation, sections were made from the iliac crests through the ischial tuberosities. Findings: The lungs show a few tiny calcified granuloma. There is no consolidation seen. There are 2 pulmonary nodules located in the posterior aspects of the right and left lobe that exceed 5 mm in size. The first is on the right measuring 8.5, the second is on the left measuring 6 mm The two lesions are unchanged when compared to the April 2005 exam also used as comparison There are no new nodules seen. The mediastinum and hilum were examined. These areas are free of adenopathy. There is a hiatal hernia which has not changed significantly since April 2005. The liver shows no focal pathology. There is a small cyst in the anterior liver, unchanged from April 2005. The gallbladder is free of radiopaque stones. Kidneys are free of focal pathology. There is an extrarenal pelvis of the right kidney which is unchanged from previous exam. The uterus and adnexal structures are noted without change or pathology. The small right inguinal hernia is noted without change. The bladder is smooth. There are no osseous lesions seen. Conclusion: Multiple pulmonary nodules. These are all unchanged when compared to April 2005 and therefore unlikely to represent metastatic disease. No intraperitoneal pathology seen. Procedure Note Jose Roblero MD - 10/05/[address] chest, abdomen, pelvis: September 28, 2007 10:13:00 AM Clinical History: rectal CA. Comparison: June 2006. Oral contrast was given prior to scanning. During the exam, intravenous administration of 100 cc of 370% nonionic contrast at a rate of 2 cc/second was administered. Technique Chest: Images were obtained from the thoracic inlet through the entire chest. Technique Abdomen: After the above preparation, sections were made from the lower chest to the iliac crests. Technique Pelvis: After the above preparation, sections were made from the iliac crests through the ischial tuberosities. Findings: The lungs show a few tiny calcified granuloma. There is no consolidation seen. There are 2 pulmonary nodules located in the posterior aspects of the right and left lobe that exceed 5 mm in size. The first is on the right measuring 8.5, the second is on the left measuring 6 mm The two lesions are unchanged when compared to the April 2005 exam also used as comparison There are no new nodules seen. The mediastinum and hilum were examined. These areas are free of adenopathy. There is a hiatal hernia which has not changed significantly since April 2005. The liver shows no focal pathology. There is a small cyst in the anterior liver, unchanged from April 2005. The gallbladder is free of radiopaque stones. Kidneys are free of focal pathology. There is an extrarenal pelvis of the right kidney which is unchanged from previous exam. The uterus and adnexal structures are noted without change or pathology. The small right inguinal hernia is noted without change. The bladder is smooth. There are no osseous lesions seen. Conclusion: Multiple pulmonary nodules. These are all unchanged when compared to April 2005 and therefore unlikely to represent metastatic disease. No intraperitoneal pathology seen. Arnel Oliva MD IMG CT ORDERABLES Final Resul t documented in this encounter Visit Diagnoses Not on filedocumented in this encounter
--- OUTSIDE RECORDS SUMMARY | 2024-03-18 22:15 | XMS_ITS | Encounter Summary ---
Author Organization [facility] Address [address] [place] [address] Care Team Providers Care Reo Asset Manager Name Role Phone Unavailable Primary Care Provider Unavailabl e Encounter Details Date Type Department Care Team (Late st Contact Info) Description 08/11/2006 9:32 EDT - 08/11/2006 11:59 EDT Hospital Encounter [facility] [address] [place] [address] Arnel Oliva MD [address] [facility] [place], [address] [place] [phone] Discharge Disposition: Auto Discharge Social History Tobacco [...] 14:25 EST Hospital Encounter [facility] OR [address] [place] [phone] Vishal Castillo MD [address] [place] [phone] 03/27/2024 14:25 EST - 03/27/2024 17:55 EST Surgery [facility] OR [address] [place] [address] Vishal Castillo MD [address] [place] [phone] Left Reverse Total Shoulder Arthroplasty [30338 (CPT??)] 04/08/2024 15:30 EST Post-op Visit [facility] Hand & Upper Extremity Program - [address] [address] Vishal Castillo MD [address] [place] [phone] Scheduled Procedures Name Priority Associated Diagnoses Date/Ti me ARTHROPLASTY, SHOULDER, TOTAL Left rotator cuff tear arthropathy 03/27/2024 14:25 EST documented as of this encounter Procedures Procedure Name Priority Date/Time Associated Diagnosis Comments COMPLETE BLOOD COUNT AND DIFFERENTIAL Routine 08/11/2006 11:27 EDT BUN Routine 08/11/2006 11:27 EDT CREATININE Routine 08/11/2006 11:27 EDT ELECTROLYTES Routine 08/11/2006 11:27 EDT CEA REPEAT Routine 08/11/2006 11:20 EDT documented in this encounter Results * ELECTROLYTES (08/11/2006 11:27 EDT) Pathologist [facility] Sodium 140 136 - 145 mEq/L [facility] Potassium 4.1 3.5 - 5.0 mEq/L [facility] Chloride 109 96 - 110 mEq/L [facility] CO2 25 24 - 32 mEq/L [facility] 08/11/2006 11:2 7 EDT 08/11/2006 11:29 EDT us Arnel Oliva MD CHEMISTRY & BLOOD GAS ORDERAB LES Final Result Performing Organization Address City/[facility]/ZIP Co de Phone Number [facility] [address] [place] [address] * CREATININE (08/11/2006 11:27 EDT) Pathologist [facility] Creatinine 0.90 0.7 - 1.5 mg/dl [facility] GFR, Calculated >60 ml/min/1.7 3m2 [facility] 08/11/2006 11:2 7 EDT 08/11/2006 11:29 EDT us Arnel Oliva MD CHEMISTRY & BLOOD GAS ORDERAB LES Final Result Performing Organization Address City/[facility]/ZIP Co de Phone Number [facility] [address] [place] [address] * (ABNORMAL) HEMAGRAM AND DIFFERENTIAL (08/11/2006 11:27 EDT) Pathologist [facility] WBC 5.76 4.0 - 12.4 K/cmm [facility] RBC 4.64 3.86 - 5.04 M/cmm [facility] Hemoglobin 13.2 11.6 - 15.2 gm/dl [facility] HCT 39.8 34.9 - 44.4 % [facility] MCV 86 81 - 98 fl [facility] MCH 28.5 26.7 - 33.3 pg [facility] MCHC 33.2 32.1 - 35.9 gm/dl [facility] PLT 303 141 - 320 K/cmm [facility] RDW-CV 14.8(H) 11.7 - 14.6 % [facility] % Neutrophils 61.8 45.5 - 79.7 % [facility] % Lymphocytes 28.7 15.0 - 46.8 % [facility] % Monocytes 8.1 1.8 - 12.0 % [facility] % Eosinophils 0.9 0.6 - 6.9 % [facility] % Basophils 0.5 0.2 - 1.4 % [facility] ABS Neutrophils 3.56 2.20 - 8.85 K/cmm [facility] ABS Lymphs 1.65 1.09 - 3.30 K/cmm [facility] ABS Monocytes 0.47 0.1 - 0.8 K/cmm [facility] ABS Eosinophils 0.05 0.03 - 0.61 K/cmm [facility] ABS Basophils 0.03 0.01 - 0.11 K/cmm [facility] Type of Diff: Automated JOSE L [facility] 08/11/2006 11:2 7 EDT 08/11/2006 11:29 EDT us Arnel Oliva MD PACKAGES & DNA PROBE ORDERABL ES Final Result Performing Organization Address City/[facility] Co de Phone Number [facility] [address] [place] [address] * BUN (08/11/2006 11:27 EDT) BUN 20 10 - 26 mg/dl [facility] 08/11/2006 11:2 7 EDT 08/11/2006 11:29 EDT us Arnel Oliva MD CHEMISTRY & BLOOD GAS ORDERAB LES Final Result Performing Organization Address City/[facility]/ZIP Co de Phone Number [facility] [address] [place] [address] * CEA REPEAT (08/11/2006 11:20 EDT) CEA 1.5 ng/ml [facility] Comment: % Distribution of CEA (ng/ml) 0-2.5 in 98.2% of non-smokers and 87.3% of smokers 2.6-5.0 in 1.8% of non-smokers and 8.0% of smokers 5.1-10.1 in 4.7% of smokers Serum CEA concentration should not be interpreted as absolute evidence for the presence or absence of malignant disease. Assayed utilizing [employer] chemiluminescent technology. Values obtained by using different assay methods cannot be used interchangeably. PREVIOUS CEA RESULT ON 05/10/06 WAS 1.7 AND ON 01/09/06 WAS 1.3 08/11/2006 11:2 0 EDT 08/11/2006 11:44 EDT us Arnel Oliva MD CHEMISTRY & BLOOD GAS ORDERAB LES Final Result [facility] [address] [place] [address] documented in this encounter Visit Diagnoses Not on filedocumented in this encounter
--- OUTSIDE RECORDS SUMMARY | 2024-03-18 22:15 | XMS_ITS | Encounter Summary ---
Author Organization [facility] Address [address] [place] [address] Care Team Providers Care Upholsterer Assembly Line Name Role Phone Barbara Cunningham WAD IMPREGNATOR Primary Care Provider [phone] Encounter Details Date Type Department Care Team (Late st Contact Info) Description 10/04/2007 Results Only [facility] conversion [address] [place] [phone] Barbara Cunningham, WAD IMPREGNATOR [address] [place], [place] [phone] Social History Tobacco Use Types Packs/Day Years [...] Info) Description 03/27/2024 14:25 EST Hospital Encounter [facility] OR [address] [place] [address] Vishal Castillo MD [address] [place] [phone] 03/27/2024 14:25 EST - 03/27/2024 17:55 EST Surgery [facility] OR [address] [place] [address] Vishal Castillo MD [address] [place] [phone] Left Reverse Total Shoulder Arthroplasty [57183 (CPT??)] 04/08/2024 15:30 EST Post-op Visit [facility] Hand & Upper Extremity Program - [address] [place] [address] Vishal Castillo MD [address] [place] [phone] Scheduled Procedures Name Priority Associated Diagnoses Date/Ti me ARTHROPLASTY, SHOULDER, TOTAL Left rotator cuff tear arthropathy 03/27/2024 14:25 EST documented as of this encounter Procedures Procedure Name Priority Date/Time Associated Diagnosis Comments HPV DETECTION, HIGH RISK TYPES Routine 10/04/2007 10:25 EDT HEMOGLOBIN A1C Routine 10/04/2007 10:25 EDT HEPATIC FUNCTION PANEL (ALB,ALK PHOS,ALT,AST,DBIL,TOT RICK,TOT PROT) Routine 10/04/2007 10:25 EDT LIPID PROFILE (INCLUDES CHOLESTEROL, TRIGLYCERIDES, HDL, LDL) Routine 10/04/2007 10:25 EDT CYTOPATHOLOGY Routine 10/04/2007 0:00 EDT documented in this encounter Results * HUMAN PAPILLOMA VIRUS DNA TEST (10/04/2007 10:25 EDT) Specimen Description Cervix, ThinPrep vial [facility] Result Negative for HPV types 16, 18, 31, 33, 35, 39, 45, 51, 52, 56, 58, 59, and 68. [facility] Report Status Final [id number] [facility] 10/04/2007 10:2 5 EDT 10/09/2007 14:46 EDT Barbara Cunningham NP MICROBIOLOGY - GENERAL ORDERA BLES Final Result [facility] [address] [place] [address] * LIPID PROFILE (INCLUDES CHOLESTEROL, TRIGLYCERIDES, HDL, LDL) (10/04/2007 10:25 EDT) Cholesterol 195 mg/dl [facility] Comment: Desirable:<200 Borderline:200-239 High Risk:>uq=510 Triglycerides 88 35 - 160 mg/dl [facility] HDL 63 mg/dl [facility] Comment: Highly Desirable:>60 Desirable:35-60 High Risk:<35 LDL, Calculated 114 mg/dl [facility] Comment: Desirable:<130 Borderline:130-159 High Risk:>us=090 Chol/HDL Ratio 3.1 [facility] Fasting? Yes [facility] 10/04/2007 10:2 5 EDT 10/04/2007 20:13 EDT Barbara Cunningham NP CHEMISTRY & BLOOD GAS ORDERAB LES Final Result [facility] [address] [place] [address] * LIVER FUNCTION TESTS (10/04/2007 10:25 EDT) Albumin 4.4 3.4 - 4.9 g/dl [facility] Total Protein 6.9 6.5 - 8.3 g/dl [facility] Total Alkaline Phosphatase 76 38 - 126 U/L [facility] ALT 24 9 - 52 U/L [facility] AST 25 15 - 46 U/L [facility] Unconjugated Bilirubin 0.5 0.1 - 1.1 mg/dl [facility] Conjugated Bilirubin 0.0 0.0 - 0.3 mg/dl [facility] Bilirubin, Total <0.5 0.2 - 1.3 mg/dl [facility] 10/04/2007 10:2 5 EDT 10/04/2007 20:13 EDT us Barbara Cunningham WAD IMPREGNATOR CHEMISTRY & BLOOD GAS ORDERAB LES Final Result Performing Organization Address [facility] de Phone Number [facility] [address] [place] [address] * HEMOGLOBIN A1C (10/04/2007 10:25 EDT) Hemoglobin A1C 6.0 % [facility] Comment: Reference Range: <6% Normal range ADA guidelines: The A1c goal for non adults in general is <7%. The A1c goal for selected individual patients is as close to normal (<6%) as possible without significant hypoglycemia. 10/04/2007 10:2 5 EDT 10/04/2007 20:13 EDT Barbara Cunningham NP CHEMISTRY & BLOOD GAS ORDERAB LES Final Result Performing Organization Address [facility] de Phone Number [facility] [address] [place] [address] * CYTOPATHOLOGY (10/04/2007 0:00 EDT) Pathologist [facility] Pathology Report: CYTOPATHOLOGY REPORT Reports generated via electronic interface contain original data; however they are lacking the format of the original report. Caution should be taken when reading/interpreti ng unformatted reports. Name: ? ARETHA HILL ? Accession #: ? [id number] : ? 1945 (Age: 62) ??F ?Collect Date: ? 10/04/2007 Location: ? [facility] ? Receive Date: ? 10/05/2007 Provider: ?BARBARA CUNNINGHAM WAD IMPREGNATOR Copy to: ? Specimen/Source: ?ThinPrep Pap Test, Endocervix, processed on Biomeme ThinPrep Imaging System, with manual evaluation Last Menstrual Period: ? Menstrual/Pregnanc y Status: ? 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 HPVDX - HPV testing requested regardless of diagnosis on current ThinPrep Pap test. ? SPECIMEN ADEQUACY ? Satisfactory for Evaluation - assessment of transformation zone component not applicable ( e.g. atrophy, vaginal sample, hysterectomy) - scant squamous epithelial component secondary to excessive inflammation GENERAL CATEGORIZATION ? Negative for Intraepithelial Lesion or Malignancy ? Document reviewed and electronically signed by: ? Kya Hummel, SCT(ASCP) ? Report Date: ??10/09/2007 12:00 End of Report [facility] 10/04/2007 10/05/2007 us Barbara Cunningham NP PATHOLOGY ORDERABLES Final Re sult [facility] [address] [place] [address] documented in this encounter Visit Diagnoses Not on filedocumented in this encounter Care Teams Upholsterer Assembly Line Relationship Specialty Start Date End Date Barbara Cunningham, WAD IMPREGNATOR [address] [place] [address] PCP - General 08/14/08 07/22/13 documented as of this encounter
--- OUTSIDE RECORDS SUMMARY | 2024-03-18 22:15 | XMS_ITS | Encounter Summary ---
Author Organization [facility] Address [address] [place] [address] Care Team Providers Care Umbrella Supervisor Name Role Phone Unavailable Primary Care Provider Unavailabl e Encounter Details Date Type Department Care Team (Late st Contact Info) Description 03/30/2007 9:44 EST Hospital Encounter [facility] [address] [place] [address] Arnel Oliva MD [address] [place] [address], [address] [place] [phone] Social History Tobacco Use Types Packs/Day Years [...] 11:38 EDT documented as of this encounter Plan of Treatment Upcoming Encounters Date Type Department Care Team (Latest Contact Info) Description 03/27/2024 14:25 EST Hospital Encounter [facility] OR [address] [place] [address] Vishal Castillo MD [address] [place] [phone] 03/27/2024 14:25 EST - 03/27/2024 17:55 EST Surgery [facility] OR [address] [place] [address] Vishal Castillo MD [address] [place] [phone] Left Reverse Total Shoulder Arthroplasty [43014 (CPT??)] 04/08/2024 15:30 EST Post-op Visit [facility] Hand & Upper Extremity Program - [address] [address] Vishal Castillo MD [address] [place] [phone] Scheduled Procedures Name Priority Associated Diagnoses Date/Ti me ARTHROPLASTY, SHOULDER, TOTAL Left rotator cuff tear arthropathy 03/27/2024 14:25 EST documented as of this encounter Visit Diagnoses Not on filedocumented in this encounter Additional Health Concerns Infection Onset Date Last Indicated Resolved Time R/O COVID-19 10/24/2019 10/24/2019 10/28/2019 10:3 2 EDT documented as of this encounter
--- OUTSIDE RECORDS SUMMARY | 2024-03-18 22:15 | XMS_ITS | Encounter Summary ---
Author Organization [facility] Address [address] [place] [address] Care Team Providers Care Armature Winder Repairer Name Role Phone Barbara Conway ADVERTISING SALES EXECUTIVE Primary Care Provider [phone] Encounter Details Date Type Department Care Team (Late st Contact Info) Description 11/21/2006 Results Only [facility] conversion [address] [place] [address] Barbara Conway, ADVERTISING SALES EXECUTIVE [address] [place], [place] [address] Social History Tobacco Use Types Packs/Day Years [...] Info) Description 03/27/2024 14:25 EST Hospital Encounter [facility] OR [address] [place] [address] Vishal Castillo MD [address] [place] [phone] 03/27/2024 14:25 EST - 03/27/2024 17:55 EST Surgery [facility] OR [address] [place], [place] [address] Vishal Castillo MD [address] [place] [phone] Left Reverse Total Shoulder Arthroplasty [49071 (CPT??)] 04/08/2024 15:30 EST Post-op Visit [facility] Hand & Upper Extremity Program - [address] [place] [address] Vishal Castillo MD [address] [place] [phone] Scheduled Procedures Name Priority Associated Diagnoses Date/Ti me ARTHROPLASTY, SHOULDER, TOTAL Left rotator cuff tear arthropathy 03/27/2024 14:25 EST documented as of this encounter Procedures Procedure Name Priority Date/Time Associated Diagnosis Comments BACTERIAL CULTURE, URINE Routine 11/21/2006 20:58 EDT documented in this encounter Results * BACTERIAL CULTURE, URINE (11/21/2006 20:58 EDT) Specimen Description Urine [facility] Result 10,000 to 100,000 CFU/ml Mixed gram positive growth [facility] Report Status Final [id number] [facility] 11/21/2006 20:5 8 EDT 11/21/2006 20:58 EDT us Barbara Conway ADVERTISING SALES EXECUTIVE MICROBIOLOGY - GENERAL ORDERA BLES Final Result [facility] [address] [place] [address] documented in this encounter Visit Diagnoses Not on filedocumented in this encounter Care Teams Armature Winder Repairer Relationship Specialty Start Date End Date Barbara Conway, ADVERTISING SALES EXECUTIVE [address] [place] [address] PCP - General 08/14/08 07/22/13 documented as of this encounter
--- OUTSIDE RECORDS SUMMARY | 2024-03-18 22:15 | XMS_ITS | Encounter Summary ---
Author Organization [facility] Address [address] [place] [address] Care Team Providers Care Microsoft Net Developer Name Role Phone Unavailable Primary Care Provider Unavailabl e Encounter Details Date Type Department Care Team (Latest Contact Info) Description 01/10/2008 20:48 EDT Hospital Encounter [facility] - Other [address] [place] [address] Barbara Conway, SHIP CLEANER [address] [place] [address] Discharge Disposition: Home or Self Care Social [...] mouth daily. Reported on 08/31/2016 04/30/2007 10/24/2019 Dalton-3 Fatty Acids-Vitamin E (FISH OIL) 1,000 mg Cap Take by mouth daily. 04/30/2007 01/06/2013 documented as of this encounter Discharge Disposition Disposition Code Departure Means Destination Home or Self Care documented in this encounter Plan of Treatment Upcoming Encounters Date Type Department Care Team (Latest Contact Info) Description 03/27/2024 14:25 EST Hospital Encounter [facility] OR [address] [place] [phone] Vishal Castillo MD [address] [place] [phone] 03/27/2024 14:25 EST - 03/27/2024 17:55 EST Surgery [facility] OR [address] [place] [phone] Vishal Castillo MD [address] [place] [phone] Left Reverse Total Shoulder Arthroplasty [54127 (CPT??)] 04/08/2024 15:30 EST Post-op Visit [facility] Hand & Upper Extremity Program - [address] [address] Vishal Castillo MD [address] [place] [phone] Scheduled Procedures Name Priority Associated Diagnoses Date/Ti me ARTHROPLASTY, SHOULDER, TOTAL Left rotator cuff tear arthropathy 03/27/2024 14:25 EST documented as of this encounter Visit Diagnoses Not on filedocumented in this encounter
--- OUTSIDE RECORDS SUMMARY | 2024-03-18 22:15 | XMS_ITS | Encounter Summary ---
Author Organization [facility] Address [address] [place] [address] Care Team Providers Care Baker Bread Name Role Phone Barbara Conway Myla DIRECTOR OF CHANNEL MARKETING Primary Care Provider [phone] Encounter Details Date Type Department Care Team (Late st Contact Info) Description 03/30/2007 Before PRISM Converted Visit (Maple) [facility] [place] - [place] conversion [address] [place], [place] [address] [phone] Arnel Oliva MD [address] [facility], [address] [place] [phone] Social History Tobacco Use Types Packs/Day Years Used Date Smoking Tobacco: Never Assessed Comments Unknown Sex and Gender Information Value Date Recorded Sex Assigned at Female 03/08/2024 18:30 EST Legal Sex Female 18:30 EST Gender Identity Female 05/28/2019 8:56 EST Sexual Orientation Not on file documented as of this encounter Progress Notes * Arnel Oliva MD - 03/03/2009 0450 EST DIVISION OF GENERAL SURGERY DATE OF SERVICE: 03/30/2007 April 13, 2007 MS. ARETHA HILL [address] [place] [address] Dear Pam Jose: Congratulations! Your CEA is 2.5. This is entirely within normal limits and indicative of no recurrent colon cancer. I hope you have a wonderful holiday and I look forward to seeing you at our next scheduled visit. If I may be of any further assistance, please do not hesitate to contact me. Yours truly, Signed by Arnel Oliva MD, FACS 04/20/2007 12:38 Miguel Angel Oliva MD, [id number] A Cataldo, MD, FACS Arnel Oliva MD, FACS [phone] - Arnel Oliva MD, FACS - cd Job ID: [id number] Doc ID: [id number] cc: MS. ARETHA HILL, [address] [place] [address]* * Arnel Oliva MD - 03/01/2009 0222 EST DIVISION OF GENERAL SURGERY PROGRESS/FOLLOWUP NOTE - 03/30/2007 Patient is two years status post TEM for rectal cancer. She is doing well, no complaints. 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 Prior CT scan revealed a complex adnexal cyst. She underwent ultrasound and evaluation by her cradle slide maker and she was informed this was a benign non dangerous cyst. Appetite is good; energy is normal, no other complaints. OBJECTIVE Abdomen soft, nontender, no masses, no hepatosplenomegaly. External anal exam is normal. Digital exam reveals the TEM site with a fistula but no masses. Flexible sigmoidoscope was advanced to the proximal rectum. Prep is fair. TEM site is clean with nosigns of any recurrence. IMPRESSION Doing well status post TEM for early rectal cancer. RECOMMENDATIONS Check CEA today, follow up in six months for repeat physical exam and CEA. Signed by Arnel Oliva MD, FACS 04/20/2007 12:37 Arnel Oliva MD, FACS [phone] D: - Arnel Oliva MD, FACS - cd Job ID: [id number] Doc ID: [id number] cc: Iraida Crews MD documented in this encounter Plan of Treatment Upcoming Encounters Date Type Department Care Team (Latest Contact Info) Description 03/27/2024 14:25 EST Hospital Encounter [facility] OR [address] [place] [phone] Vishal Castillo MD [address] [place] [phone] 03/27/2024 14:25 EST - 03/27/2024 17:55 EST Surgery [facility] OR [address] [place] [phone] Vishal Castillo MD [address] [place] [phone] Left Reverse Total Shoulder Arthroplasty [43284 (CPT??)] 04/08/2024 15:30 EST Post-op Visit [facility] [place] Hand & Upper Extremity Program - [address] [address] Vishal Castillo MD [address] [place] [phone] Scheduled Procedures Name Priority Associated Diagnoses Date/Ti me ARTHROPLASTY, SHOULDER, TOTAL Left rotator cuff tear arthropathy 03/27/2024 14:25 EST documented as of this encounter Visit Diagnoses Not on filedocumented in this encounter Care Teams Baker Bread Relationship Specialty Start Date End Date Barbara Conway NP [address] [place], [place] [phone] PCP - General 08/14/08 07/22/13 documented as of this encounter
--- OUTSIDE RECORDS SUMMARY | 2024-03-18 22:15 | XMS_ITS | Encounter Summary ---
Author Organization [facility] Address [address] [place] [address] Care Team Providers Care Business Performance Advisor Name Role Phone Unavailable Primary Care Provider Unavailabl e Encounter Details Date Type Department Care Team (Late st Contact Info) Description 08/31/2007 9:05 EDT Hospital Encounter [facility] [address] [place] [address] Arnel Oliva MD [address] [place] [address], [address] [place] [phone] Social History Tobacco Use Types Packs/Day Years [...] Info) Description 03/27/2024 14:25 EST Hospital Encounter [facility] OR [address] [place] [phone] Vishal Castillo MD [address] [place] [phone] 03/27/2024 14:25 EST - 03/27/2024 17:55 EST Surgery [facility] OR [address] [place] [phone] Vishal Castillo MD [address] [place] [phone] Left Reverse Total Shoulder Arthroplasty [91597 (CPT??)] 04/08/2024 15:30 EST Post-op Visit [facility] Hand & Upper Extremity Program - [address] [address] Vishal Castillo MD [address] [place] [phone] Scheduled Procedures Name Priority Associated Diagnoses Date/Ti me ARTHROPLASTY, SHOULDER, TOTAL Left rotator cuff tear arthropathy 03/27/2024 14:25 EST documented as of this encounter Visit Diagnoses Not on filedocumented in this encounter Additional Health Concerns Infection Onset Date Last Indicated Resolved Time R/O COVID-19 10/24/2019 10/24/2019 10/28/2019 10:3 2 EDT documented as of this encounter
--- OUTSIDE RECORDS SUMMARY | 2024-03-18 22:15 | XMS_ITS | Encounter Summary ---
Author Organization [facility] Address [address] [place] [address] Care Team Providers Care Piece Work Checker Name Role Phone Barbara [place] Myla SUBEDITOR Primary Care Provider [phone] Encounter Details Date Type Department Care Team (Late st Contact Info) Description 03/30/2007 Results Only [facility] General Surgery - [address] [id number] Arnel Oliva MD 111 [facility], Level [address] [place] [phone] Social History Tobacco Use Types Packs/Day Years [...] Info) Description 03/27/2024 14:25 EST Hospital Encounter [facility] OR [address] [place] [address] [phone] Vishal Castillo MD [address] [place] [phone] 03/27/2024 14:25 EST - 03/27/2024 17:55 EST Surgery [facility] OR [address] [place], [place] [phone] Vishal Castillo MD [address] [place] [phone] Left Reverse Total Shoulder Arthroplasty [35977 (CPT??)] 04/08/2024 15:30 EST Post-op Visit [facility] Hand & Upper Extremity Program - [address] [place] [address] Vishal Castillo MD [address] [place] [phone] Scheduled Procedures Name Priority Associated Diagnoses Date/Ti me ARTHROPLASTY, SHOULDER, TOTAL Left rotator cuff tear arthropathy 03/27/2024 14:25 EST documented as of this encounter Procedures Procedure Name Priority Date/Time Associated Diagnosis Comments CEA REPEAT Routine 03/30/2007 10:28 EST documented in this encounter Results * CEA REPEAT (03/30/2007 10:28 EST) CEA 2.5 ng/ml [facility] Comment: % Distribution of CEA (ng/ml) 0-2.5 in 98.2% of non-smokers and 87.3% of smokers 2.6-5.0 in 1.8% of non-smokers and 8.0% of smokers 5.1-10.1 in 4.7% of smokers Serum CEA concentration should not be interpreted as absolute evidence for the presence or absence of malignant disease. Assayed utilizing Massive chemiluminescent technology. Values obtained by using different assay methods cannot be used interchangeably. PREVIOUS CEA RESULT ON 12/19/06 WAS 1.5 AND ON 08/11/06 WAS 1.5 03/30/2007 10:2 8 EST 03/30/2007 10:29 EST us Arnel Oliva MD CHEMISTRY & BLOOD GAS ORDERAB LES Final Result [facility] [address] [place] [address] documented in this encounter Visit Diagnoses Not on filedocumented in this encounter Care Teams Piece Work Checker Relationship Specialty Start Date End Date Barbara [place], SUBEDITOR [address] [place] [address] PCP - General 08/14/08 07/22/13 documented as of this encounter
--- OUTSIDE RECORDS SUMMARY | 2024-03-18 22:15 | XMS_ITS | Encounter Summary ---
Author Organization [facility] Address [address] [place] [address] Care Team Providers Care Alteration Inspector Name Role Phone ZoraidaBarbara Myla RESIDENTIAL FIELD MANAGER Primary Care Provider [phone] Encounter Details Date Type Department Care Team (Late st Contact Info) Description 08/31/2007 Before PRISM Converted Visit (Maple) [facility] - Maple conversion [address] [place], [place] [phone] Arnel Oliva MD 111 [facility], [address] [place] [address] Social History Tobacco Use Types Packs/Day Years Used Date Smoking Tobacco: Never Assessed Comments Unknown Sex and Gender Information Value Date Recorded Sex Assigned at Female 03/08/2024 18:30 EST Legal Sex Female 18:30 EST Gender Identity Female 05/28/2019 8:56 EST Sexual Orientation Not on file documented as of this encounter Progress Notes * Arnel Oliva MD - 01/15/2009 6227 EDT DIVISION OF GENERAL SURGERY PROGRESS/FOLLOWUP NOTE - 08/31/2007 SUBJECTIVE The patient is two and a half years status post TEM for rectal cancer. She does have a postoperative anovaginal fistula. The patient has minimal symptoms from this fistula, occasional flatus per vagina, but no stool and she is very happy with this. She is very happy with the results and she does not wish to have any further treatment. She otherwise feels very well with no complaints, moving her bowels and voiding without difficulty.Last colonoscopy was in 2006. MEDICATIONS 1. Glucophage 1000 mg daily. 2. Lisinopril 40 daily. 3. Calcium. 4. Vitamin E. 5. Multivitamins. 6. Aspirin 81 mg daily. 7. Actos. 8. Colace. 9. Atenolol. 10. Zoloft. ALLERGIES None. REVIEW OF SYSTEMS The patient feels well with no complaints. She does have some air per her vagina occasionally, as previously mentioned. OBJECTIVE On physical examination: Abdomen is soft, nontender, no masses, no guarding, no rebound. External anal exam is normal. Digital exam reveals no masses. The anovaginal fistula is still palpable and small in the distal anal canal. No signs of any inflammation. IMPRESSION Doing well two and a half years status post transanal endoscopic microsurgery for a T1 rectal cancer. The patient did have a pulmonary nodule, which was biopsied in the past and was negative. Her CEA has increased very slightly to 2.5. PLAN We will check CEA today. We will also plan CT scan of the chest, abdomen, and pelvis and routine followup. The patient will follow up with me in six months. Signed by Arnel Oliva MD, FACS 09/06/2007 11:11 Arnel Oliva MD, FACS [phone] - Arnel Oliva MD, FACS - Job ID: [id number] Doc ID: [id number] cc: Iraida Crews MD documented in this encounter Plan of Treatment Upcoming Encounters Date Type Department Care Team (Latest Contact Info) Description 03/27/2024 14:25 EST Hospital Encounter [facility] OR [address] [place] [address] [phone] Vishal Castillo MD [address] [place] [phone] 03/27/2024 14:25 EST - 03/27/2024 17:55 EST Surgery [facility] [place] OR [address], [place] [address] Vishal Castillo MD [address] [place] [phone] Left Reverse Total Shoulder Arthroplasty [66100 (CPT??)] 04/08/2024 15:30 EST Post-op Visit [facility] Hand & Upper Extremity Program - [address] [place] [address] Vishal Castillo MD [address] [place] [phone] Scheduled Procedures Name Priority Associated Diagnoses Date/Ti me ARTHROPLASTY, SHOULDER, TOTAL Left rotator cuff tear arthropathy 03/27/2024 14:25 EST documented as of this encounter Visit Diagnoses Not on filedocumented in this encounter Care Teams Alteration Inspector Relationship Specialty Start Date End Date Barbara [place] NP [address] [place] [address] PCP - General 08/14/08 07/22/13 documented as of this encounter
--- OUTSIDE RECORDS SUMMARY | 2024-03-18 22:15 | XMS_ITS | Encounter Summary ---
Author Organization [facility] Address [address] [place] [address] Care Team Providers Care Loan Processing Supervisor Name Role Phone Unavailable Primary Care Provider Unavailabl e Encounter Details Date Type Department Care Team (Latest Contact Info) Description 06/12/2008 13:35 EST Hospital Encounter [facility] Emergency Department - [facility] [address] [place], [place] [id number] Emergency, Default, MD Discharge Disposition: Home or Self Care [...] mouth daily. Reported on 08/31/2016 04/30/2007 10/24/2019 Sunol-3 Fatty Acids-Vitamin E (FISH OIL) 1,000 mg [...] 14:25 EST Hospital Encounter [facility] OR [address] [place] [address] [phone] Vishal Castillo MD [address] [place] [phone] 03/27/2024 14:25 EST - 03/27/2024 17:55 EST Surgery [facility] OR [address] [place] [address] [phone] Vishal Castillo MD [address] [place] [phone] Left Reverse Total Shoulder Arthroplasty [44287 (CPT??)] 04/08/2024 15:30 EST Post-op Visit [facility] Hand & Upper Extremity Program - [place] [address] [place] [address] Vishal Castillo MD [address] [place] [phone] Scheduled Procedures Name Priority Associated Diagnoses Date/Ti me ARTHROPLASTY, SHOULDER, TOTAL Left rotator cuff tear arthropathy 03/27/2024 14:25 EST documented as of this encounter Procedures Procedure Name Priority Date/Time Associated Diagnosis Comments FINGER 2 OR MORE VIEWS 06/12/2008 15:32 EST documented in this encounter Results * FINGER 2 OR MORE VIEWS (06/12/2008 15:32 EST) Anatomical Region Laterality Modality Other 06/12/2008 15:3 2 EST Narrative 09/08/2008 11:23 EDT Swelling distal phalanx r.o FX, FB FINGER 2 OR MORE VIEWS ??Jun 12, 2008 3:32:00 PM Signs and Symptoms: ??Swelling distal phalanx r.o FX, FB Comparison: None Findings: Three views of the second digit demonstrate no acute osseous injury. The alignment of the digit is anatomic. There is evidence of soft tissue edema around the distal phalanx. A there are no radiopaque foreign bodies present. Impression: No acute osseous injury. I have personally reviewed the images and the above interpretation and agree with the findings. Procedure Note Zackary Robertson MD / Duglas Alberto MD - 09/08/2008 Swelling distal phalanx r.o FX, FB FINGER 2 OR MORE VIEWS Jun 12, 2008 3:32:00 PM Signs and Symptoms: Swelling distal phalanx r.o FX, FB Comparison: None Findings: Three views of the second digit demonstrate no acute osseous injury. The alignment of the digit is anatomic. There is evidence of soft tissue edema around the distal phalanx. A there are no radiopaque foreign bodies present. Impression: No acute osseous injury. I have personally reviewed the images and the above interpretation and agree with the findings. Mitch Gresham PA-C [facility] ORDERABLES Final Result documented in this encounter Visit Diagnoses Not on filedocumented in this encounter
--- OUTSIDE RECORDS SUMMARY | 2024-03-18 22:15 | XMS_ITS | Encounter Summary ---
Author Organization [facility] Address [address] [place] [address] Care Team Providers Care Metaphysics Teacher Name Role Phone Barbara [place] Myla CAMOUFLAGE SPECIALIST Primary Care Provider [phone] Encounter Details Date Type Department Care Team (Late st Contact Info) Description 09/12/2008 Orders Only [facility] General Surgery - [address] [phone] Arnel Oliva MD 111 [facility], [address] [place] [phone] Social History Tobacco Use Types Packs/Day Years [...] EST Hospital Encounter [facility] OR [address] [place] [phone] Vishal Castillo MD [address] [place] [phone] 03/27/2024 14:25 EST - 03/27/2024 17:55 EST Surgery [facility] OR [address] [place] [address] Vishal Castillo MD [address] [place] [phone] Left Reverse Total Shoulder Arthroplasty [01287 (CPT??)] 04/08/2024 15:30 EST Post-op Visit [facility] Hand & Upper Extremity Program - [address] [place] [address] Vishal Castillo MD [address] [place] [phone] Scheduled Procedures Name Priority Associated Diagnoses Date/Ti me ARTHROPLASTY, SHOULDER, TOTAL Left rotator cuff tear arthropathy 03/27/2024 14:25 EST documented as of this encounter Procedures Procedure Name Priority Date/Time Associated Diagnosis Comments CT CHEST, ABDOMEN, PELVIS W CONTRAST 09/23/2008 16:55 EDT documented in this encounter Results * CT CHEST, ABDOMEN, PELVIS W CONTRAST (09/23/2008 16:55 EDT) Anatomical Region Laterality Modality Other 09/23/2008 16:5 5 EDT 09/24/2008 10:55 EDT Narrative 09/24/2008 10:[address] CHEST, ABDOMEN, PELVIS ??Sep 23, 2008 4:55:00 PM Signs and Symptoms: ??Colon CA Comparisons: CT of the chest, abdomen, and pelvis September 28, 2007. Technique Chest: Images were obtained from the thoracic inlet through the entire chest. Technique Abdomen: After the above preparation, sections were made from the lower chest to the iliac crests. Technique Pelvis: After the above preparation, sections were made from the iliac crests through the ischial tuberosities. During the exam, ??intravenous administration of 100 cc of 370 mg% nonionic contrast at a rate of 2 cc/second was administered. Prior to scanning, oral and rectal contrast was administered. Findings: Contrast-enhanced images of the chest show multiple pulmonary nodules in the lower lobes, left greater than right. A subcentimeter nodule is seen in the minor fissure as well. These are all stable in size and number without new nodules or airspace opacities. No pleural abnormalities are noted. There is no significant mediastinal, hilar, or axillary lymphadenopathy. The heart is grossly normal without pericardial disease. The airways are of normal caliber and are widely patent. A moderate hiatal hernia is again seen, unchanged. The left lobe of the thyroid gland is enlarged due to a multilobulated hypodensity shearing approximately 2 cm. This is stable in comparison to the prior exam. The enhanced gallbladder, spleen, pancreas, and adrenal glands are normal in appearance. The right extrarenal pelvis and probable calyceal diverticulum remain stable. The left kidney is unremarkable. Except for a stable single simple cyst in the medial segment of the left lobe, the liver is within normal limits.. No enlarged retroperitoneal or mesenteric lymph nodes are identified. Evaluation of the bowel shows no evidence of wall thickening or signs of obstruction. A lipoma is incidentally noted at the first portion of the duodenum, unchanged. The uterus and adnexa are grossly normal. The well-distended urinary bladder is free of abnormality. No free fluid in the abdomen or pelvis is identified. Evaluation the skeleton shows moderate degenerative disc disease, particularly centered at the thoracolumbar spine. There are no focal lytic or sclerotic osseous lesions. The soft tissues are within normal limits. Impression: 1. Stable examination of the chest, abdomen, and pelvis without evidence of localized recurrent or metastatic disease. All pulmonary nodules in the chest are stable in size and number. 2. 2 cm lobulated hypodense lesion in the left lobe of the thyroid gland. More specialized evaluation could be obtained with thyroid ultrasound. 3. Stable hepatic cyst. 4. Incidental duodenal lipoma. 5. Moderate thoracolumbar degenerative disc disease. I have personally reviewed the images and the above interpretation and agree with the findings. Procedure Note Frances Hunt MD / Frances Hunt MD / Frances Hunt MD - 09/24/2008 CT CHEST, ABDOMEN, PELVIS Sep 23, 2008 4:55:00 PM Signs and Symptoms: Colon CA Comparisons: CT of the chest, abdomen, and pelvis September 28, 2007. Technique Chest: Images were obtained from the thoracic inlet through the entire chest. Technique Abdomen: After the above preparation, sections were made from the lower chest to the iliac crests. Technique Pelvis: After the above preparation, sections were made from the iliac crests through the ischial tuberosities. During the exam, intravenous administration of 100 cc of 370 mg% nonionic contrast at a rate of 2 cc/second was administered. Prior to scanning, oral and rectal contrast was administered. Findings: Contrast-enhanced images of the chest show multiple pulmonary nodules in the lower lobes, left greater than right. A subcentimeter nodule is seen in the minor fissure as well. These are all stable in size and number without new nodules or airspace opacities. No pleural abnormalities are noted. There is no significant mediastinal, hilar, or axillary lymphadenopathy. The heart is grossly normal without pericardial disease. The airways are of normal caliber and are widely patent. A moderate hiatal hernia is again seen, unchanged. The left lobe of the thyroid gland is enlarged due to a multilobulated hypodensity shearing approximately 2 cm. This is stable in comparison to the prior exam. The enhanced gallbladder, spleen, pancreas, and adrenal glands are normal in appearance. The right extrarenal pelvis and probable calyceal diverticulum remain stable. The left kidney is unremarkable. Except for a stable single simple cyst in the medial segment of the left lobe, the liver is within normal limits.. No enlarged retroperitoneal or mesenteric lymph nodes are identified. Evaluation of the bowel shows no evidence of wall thickening or signs of obstruction. A lipoma is incidentally noted at the first portion of the duodenum, unchanged. The uterus and adnexa are grossly normal. The well-distended urinary bladder is free of abnormality. No free fluid in the abdomen or pelvis is identified. Evaluation the skeleton shows moderate degenerative disc disease, particularly centered at the thoracolumbar spine. There are no focal lytic or sclerotic osseous lesions. The soft tissues are within normal limits. Impression: 1. Stable examination of the chest, abdomen, and pelvis without evidence of localized recurrent or metastatic disease. All pulmonary nodules in the chest are stable in size and number. 2. 2 cm lobulated hypodense lesion in the left lobe of the thyroid gland. More specialized evaluation could be obtained with thyroid ultrasound. 3. Stable hepatic cyst. 4. Incidental duodenal lipoma. 5. Moderate thoracolumbar degenerative disc disease. I have personally reviewed the images and the above interpretation and agree with the findings. us Arnel Oliva MD IMG CT ORDERABLES Final Resul t documented in this encounter Visit Diagnoses Not on filedocumented in this encounter Care Teams Metaphysics Teacher Relationship Specialty Start Date End Date Barbara [place], CAMOUFLAGE SPECIALIST [address] [place] [address] PCP - General 08/14/08 07/22/13 documented as of this encounter
--- OUTSIDE RECORDS SUMMARY | 2024-03-18 22:15 | XMS_ITS | Encounter Summary ---
Author Organization [facility] Address [address] [place] [address] Care Team Providers Care Union Organizer Name Role Phone Barbara [place] STAINED GLASS PAINTER Primary Care Provider [phone] Encounter Details Date Type Department Care Team (Late st Contact Info) Description 10/03/2008 Office Visit [facility] General Surgery - [address] [phone] Arnel Oliva MD 111 [facility], [address] [place] [address] Social History Tobacco Use Types Packs/Day Years Used Date Smoking Tobacco: Never Assessed Comments Unknown Sex and Gender Information Value Date Recorded Sex Assigned at Female 03/08/2024 18:30 EST Legal Sex Female 18:30 EST Gender Identity Female 05/28/2019 8:56 EST Sexual Orientation Not on file documented as of this encounter Progress Notes * Arnel Oliva MD - 05/06/2009 1517 EST DIVISION OF GENERAL SURGERY October 03, 2008 Aretha Garcia [address] [place] [address] Dear Aretha: Good news! Your CT scan of the chest, abdomen, and pelvis reveals no signs of any recurrence of your colorectal cancer. This is, of course, what we hope for and is fantastic news. Incidentally, it did show a small lesion in your thyroid gland which is probably of no clinical importance. However, itwould be important to follow this up with your primary care physician just to be sure it is adequately evaluated. If you have any questions, please feel free to call me, but once again, congrats on the good news. Nothing whatsoever to worry about. Yours truly, Electronically Signed by Arnel Oliva MD, FACS 05/06/2009 15:17 Miguel Angel Oliva MD, [phone] A Cataldo, MD, FACSArnel Oliva MD, [phone] - Arnel Oliva MD, FACS - Job ID: [id number] Doc ID: [id number] cc: *Aretha Garcia* documented in this encounter Plan of Treatment Upcoming Encounters Date Type Department Care Team (Latest Contact Info) Description 03/27/2024 14:25 EST Hospital Encounter [facility] OR [address] [place] [address] [phone] Vishal Castillo MD [address] [place] [phone] 03/27/2024 14:25 EST - 03/27/2024 17:55 EST Surgery [facility] OR [address] [place] [address] [phone] Vishal Castillo MD [address] [place] [phone] Left Reverse Total Shoulder Arthroplasty [75829 (CPT??)] 04/08/2024 15:30 EST Post-op Visit [facility] Hand & Upper Extremity Program - [address] [place] [address] Vishal Castillo MD [address] [place] [phone] Scheduled Procedures Name Priority Associated Diagnoses Date/Ti me ARTHROPLASTY, SHOULDER, TOTAL Left rotator cuff tear arthropathy 03/27/2024 14:25 EST documented as of this encounter Visit Diagnoses Not on filedocumented in this encounter Care Teams Union Organizer Relationship Specialty Start Date End Date Barbara [place], STAINED GLASS PAINTER [address] [place] [address] PCP - General 08/14/08 07/22/13 documented as of this encounter
--- OUTSIDE RECORDS SUMMARY | 2024-03-18 22:15 | XMS_ITS | Encounter Summary ---
Author Organization [facility] Address [address] [place] [address] Care Team Providers Care Book Salesman Name Role Phone Unavailable Primary Care Provider Unavailabl e Encounter Details Date Type Department Care Team (Late st Contact Info) Description 12/19/2006 10:14 EDT Hospital Encounter [address] [address] Arnel Oliva MD [address] [place] [address], [address] [place] [phone] Social History Tobacco Use Types Packs/Day Years [...] Description 03/27/2024 14:25 EST Hospital Encounter [facility] OR [address] [place] [address] [phone] Vishal Castillo MD [address] [place] [phone] 03/27/2024 14:25 EST - 03/27/2024 17:55 EST Surgery [facility] OR [address] [place] [address] [phone] Vishal Castillo MD [address] [place] [phone] Left Reverse Total Shoulder Arthroplasty [45555 (CPT??)] 04/08/2024 15:30 EST Post-op Visit [facility] Hand & Upper Extremity Program - [address] [address] Vishal Castillo MD [address] [place] [phone] Scheduled Procedures Name Priority Associated Diagnoses Date/Ti me ARTHROPLASTY, SHOULDER, TOTAL Left rotator cuff tear arthropathy 03/27/2024 14:25 EST documented as of this encounter Visit Diagnoses Not on filedocumented in this encounter Additional Health Concerns Infection Onset Date Last Indicated Resolved Time R/O COVID-19 10/24/2019 10/24/2019 10/28/2019 10:3 2 EDT documented as of this encounter
--- OUTSIDE RECORDS SUMMARY | 2024-03-18 22:15 | XMS_ITS | Encounter Summary ---
Author Organization [facility] Address [address] [place] [address] Care Team Providers Care Associate Drafter Name Role Phone Barbara Conway Myla INSTRUCTOR PRODUCT INSPECTION Primary Care Provider [phone] Encounter Details Date Type Department Care Team (Late st Contact Info) Description 12/29/2006 Before PRISM Converted Visit (Maple) [facility] - Maple conversion [address], [place] [address] [phone] Arnel Oliva MD [address] [facility], [address] [place] [address] Social History Tobacco Use Types Packs/Day Years Used Date Smoking Tobacco: Never Assessed Comments Unknown Sex and Gender Information Value Date Recorded Sex Assigned at Female 03/08/2024 18:30 EST Legal Sex Female 18:30 EST Gender Identity Female 05/28/2019 8:56 EST Sexual Orientation Not on file documented as of this encounter Progress Notes * Arnel Oliva MD - 03/03/2009 191 EST DIVISION OF GENERAL SURGERY Date of Service: 12/29/2006 January 05, 2007 MS. [address] [place] [address] Dear Aretha: Good news! Your CEA is 1.5. This is entirely within normal limits and indicative of no recurrent colorectal cancer. I am happy to hear that your fistula is not causing you any significant problems. Ilook forward to seeing you at your next scheduled visit. If I may be of any further assistance between now and then, please do not hesitate to contact me. Sincerely, Signed by Arnel Oliva MD, FACS 01/15/2007 08:52 Miguel Angel Oliva MD, [id number] A Cataldo, MD, FACS Arnel Oliva MD, FACS [phone] - Arnel Oliva MD, FACS - cd Job ID: [id number] Doc ID: [id number] cc: Pam ARETHA HILL, [address] [place] [address]* * Arnel Oliva MD - 03/01/2009 4071 EST DIVISION OF GENERAL SURGERY PROGRESS/FOLLOWUP NOTE - 12/29/2006 PROBLEM Status post local excision of rectal cancer. 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 Final pathology was T1 with negative margins. Patient had planned anovaginal fistula repair in the past but now is minimally symptomatic and doesnot wish to have surgery. She states she has a small amount of drainage less than once per day. PAST MEDICAL HISTORY Positive for diabetes, elevated blood pressure, elevated cholesterol, arthritis. MEDICATIONS 1. Glucophage. 2. Lisinopril. 3. Calcium. 4. Multivitamin. 5. Vitamin E. 6. Aspirin. 7. Actos. 8. Colace. 9. Zetia. 10. [place] 3. 11. Fish oil. 12. Glucosamine and chondroitin. ALLERGIES No known drug allergies. REVIEW OF SYSTEMS Negative except for the symptoms associated with anovaginal fistula. PHYSICAL EXAM Abdomen soft, nontender, no masses, no hepatosplenomegaly. External anal exam is normal. Digital exam reveals the surgical site with no evidence of any recurrence. The fistula is palpable. IMPRESSION 1. Doing well status post local excision for T1 rectal cancer. No signs of recurrence. 2. Minimally symptomatic anovaginal fistula. Patient does not wish to have any repair at this time.We will follow closely and repair if she develops any symptoms. RECOMMENDATION Check CEA, follow up with flex. sig. and CEA in three months. Signed by Arnel Oliva MD, FACS 01/15/2007 08:51 Miguel Angel Oliva MD, [id number] A Cataldo, MD, FACS - Arnel Oliva MD, FACS - cd Job ID: [id number] Doc ID: [id number] cc: Iraida Crews MD documented in this encounter Plan of Treatment Upcoming Encounters Date Type Department Care Team (Latest Contact Info) Description 03/27/2024 14:25 EST Hospital Encounter [facility] OR [address] [place] [address] [phone] Vishal Castillo MD [address] [place] [phone] 03/27/2024 14:25 EST - 03/27/2024 17:55 EST Surgery [facility] OR [address] [place] [address] [phone] Vishal Castillo MD [address] [place] [phone] Left Reverse Total Shoulder Arthroplasty [79932 (CPT??)] 04/08/2024 15:30 EST Post-op Visit [facility] Hand & Upper Extremity Program - [address] [address] Vishal Castillo MD [address] [place] [phone] Scheduled Procedures Name Priority Associated Diagnoses Date/Ti me ARTHROPLASTY, SHOULDER, TOTAL Left rotator cuff tear arthropathy 03/27/2024 14:25 EST documented as of this encounter Visit Diagnoses Not on filedocumented in this encounter Care Teams Associate Drafter Relationship Specialty Start Date End Date Barbara Conway NP [address] [place] [address] PCP - General 08/14/08 07/22/13 documented as of this encounter
--- OUTSIDE RECORDS SUMMARY | 2024-03-18 22:15 | XMS_ITS | Encounter Summary ---
Author Organization [facility] Address [address] [place] [address] Care Team Providers Care Horticulture Teacher Name Role Phone ZoraidaBarbara Myla WASTE DISPOSAL ATTENDANT Primary Care Provider [phone] Encounter Details Date Type Department Care Team (Late st Contact Info) Description 09/23/2008 14:47 EDT - 09/23/2008 15:05 EDT Hospital Encounter [facility] [address] [place] [address] Arnel Oliva MD 111 [facility], [address] [place] [address] Discharge Disposition: Home or Self [...] mouth daily. Reported on 08/31/2016 04/30/2007 10/24/2019 [place]-3 Fatty Acids-Vitamin E (FISH OIL) 1,000 mg Cap Take by mouth daily. 04/30/2007 01/06/2013 simvastatin (ZOCOR) 80 mg tablet Take 80 mg by mouth at bedtime. 04/30/2008 12/21/2012 documented as of this encounter Discharge Disposition Disposition Code Departure Means Destination Home or Self [facility] documented in this encounter Plan of Treatment Upcoming Encounters Date Type Department Care Team (Latest Contact Info) Description 03/27/2024 14:25 EST Hospital Encounter [facility] OR [address] [place] [address] [phone] Vishal Castillo MD [address] [place] [phone] 03/27/2024 14:25 EST - 03/27/2024 17:55 EST Surgery [facility] OR [address] [place] [address] [phone] Vishal Castillo MD [address] [place] [phone] Left Reverse Total Shoulder Arthroplasty [68777 (CPT??)] 04/08/2024 15:30 EST Post-op Visit [facility] Hand & Upper Extremity Program - [facility] [address] [place], [place] [phone] Vishal Castillo MD [address] [place] [phone] Scheduled Procedures Name Priority Associated Diagnoses Date/Ti me ARTHROPLASTY, SHOULDER, TOTAL Left rotator cuff tear arthropathy 03/27/2024 14:25 EST documented as of this encounter Visit Diagnoses Not on filedocumented in this encounter Care Teams Horticulture Teacher Relationship Specialty Start Date End Date Barbara Conway, [place] [address] [place] [address] PCP - General 08/14/08 07/22/13 documented as of this encounter
--- OUTSIDE RECORDS SUMMARY | 2024-03-18 22:15 | XMS_ITS | Encounter Summary ---
Author Organization [facility] Address [address] [place] [address] Care Team Providers Care Metal Off Bearer Name Role Phone Unavailable Primary Care Provider Unavailabl e Encounter Details Date Type Department Care Team (Latest Contact Info) Description 10/04/2007 16:23 EDT Hospital Encounter [facility] - Other [address] [place] [address] Barbara Conway, MEASURING MACHINE TENDER [address] [place] [address] Discharge Disposition: Home-Health Care Svc Social History [...] mouth daily. Reported on 08/31/2016 04/30/2007 10/24/2019 [place]-3 Fatty Acids-Vitamin E (FISH OIL) 1,000 mg Cap Take by mouth daily. 04/30/2007 01/06/2013 documented as of this encounter Discharge Disposition Disposition Code Departure Means Destination Home-Health Care Svc documented in this encounter Plan of Treatment Upcoming Encounters Date Type Department Care Team (Latest Contact Info) Description 03/27/2024 14:25 EST Hospital Encounter [facility] OR [address] [place] [address] [phone] Vishal Castillo MD [address] [place] [phone] 03/27/2024 14:25 EST - 03/27/2024 17:55 EST Surgery [facility] OR [address] [place] [address] [phone] Vishal Castillo MD [address] [place] [phone] Left Reverse Total Shoulder Arthroplasty [91076 (CPT??)] 04/08/2024 15:30 EST Post-op Visit [facility] Hand & Upper Extremity Program - [place] [address] [place] [address] Vishal Castillo MD [address] [place] [phone] Scheduled Procedures Name Priority Associated Diagnoses Date/Ti me ARTHROPLASTY, SHOULDER, TOTAL Left rotator cuff tear arthropathy 03/27/2024 14:25 EST documented as of this encounter Visit Diagnoses Not on filedocumented in this encounter
--- OUTSIDE RECORDS SUMMARY | 2024-03-18 22:15 | XMS_ITS | Encounter Summary ---
Author Organization [facility] Address [address] [place] [address] Care Team Providers Care Developmental Training Counselor Name Role Phone Unavailable Primary Care Provider Unavailabl e Encounter Details Date Type Department Care Team (Latest Contact Info) Description 09/08/2006 9:40 EDT - 09/08/2006 11:59 EDT Hospital Encounter [address] [address] Iraida Crews MD Discharge Disposition: Auto Discharge Social History Tobacco [...] Description 03/27/2024 14:25 EST Hospital Encounter [facility] OR [address] [place] [address] Vishal Castillo MD [address] [place] [phone] 03/27/2024 14:25 EST - 03/27/2024 17:55 EST Surgery [facility] OR [address] [place] [address] Vishal Castillo MD [address] [place] [phone] Left Reverse Total Shoulder Arthroplasty [17288 (CPT??)] 04/08/2024 15:30 EST Post-op Visit [facility] Hand & Upper Extremity Program - [address] [address] Vishal Castillo MD [address] [place] [phone] Scheduled Procedures Name Priority Associated Diagnoses Date/Ti me ARTHROPLASTY, SHOULDER, TOTAL Left rotator cuff tear arthropathy 03/27/2024 14:25 EST documented as of this encounter Visit Diagnoses Not on filedocumented in this encounter
--- OUTSIDE RECORDS SUMMARY | 2024-03-18 22:15 | XMS_ITS | Encounter Summary ---
Author Organization [facility] Address [address] [place] [address] Care Team Providers Care Postie Name Role Phone JuanBarbara whitney Myla CHAINSTITCH BINDER Primary Care Provider [phone] Encounter Details Date Type Department Care Team (Late st Contact Info) Description 02/22/2008 Before PRISM Converted Visit (Maple) [facility] - Maple conversion [address] [place], [place] [phone] Arnel Oliva MD 111 [facility], [address] [place] [address] Social History Tobacco Use Types Packs/Day Years Used Date Smoking Tobacco: Never Assessed Comments Unknown Sex and Gender Information Value Date Recorded Sex Assigned at Female 03/08/2024 18:30 EST Legal Sex Female 18:30 EST Gender Identity Female 05/28/2019 8:56 EST Sexual Orientation Not on file documented as of this encounter Progress Notes * Arnel Oliva MD - 11/15/2008 8882 EDT DIVISION OF GENERAL SURGERY March 10, 2008 MS [address] [place] [address] Dear Ms Hill: Good news! Your CEA is 1.9. This is entirely within normal limits and indicative of no recurrent colorectal cancer. Once again, congratulations on the good news. I look forward to seeing you at your next scheduled visit. If I may be of any further assistance between now and then, please do not hesitate to contact me. Yours truly, Signed by Arnel Oliva MD, FACS 03/11/2008 13:37 Miguel Angel Oliva MD, [id number] A Cataldo, MD, FACSP.S. If that fistula becomes symptomatic, once again I would be happy to do my best to repair it for you. - Arnel Oliva MD, FACS - CD Job ID: [id number] Doc ID: [id number] cc: MS ARETHA HILL, [address] [place] [address]* * Arnel Oliva MD - 11/13/2008 9327 EDT DIVISION OF GENERAL SURGERY PROGRESS/FOLLOWUP NOTE - 02/22/2008 SUBJECTIVE Patient is almost three years status post TEM for T1 rectal cancer. Postoperative course was complicated by anovaginal fistula. She has had this for quite some time with minimal symptoms. Patient otherwise is doing very well, moving her bowels, and voiding without difficulty. REVIEW OF SYSTEMS A 13-point review of systems is performed and is entirely negative. CURRENT MEDICATIONS Glucophage, lisinopril, calcium, vitamin E, multivitamin, Actos, Colace, atenolol, and Zoloft. ALLERGIES No known drug allergies. PAST MEDICAL HISTORY Positive for hypertension, diabetes, rectal cancer, and anovaginal fistula. SOCIAL HISTORY Patient does not drink to excess. She does not smoke. She is currently retired. FAMILY HISTORY Noncontributory. PHYSICAL EXAMINATION Abdomen soft, nontender, no masses. Groin exam reveals no lymphadenopathy. Skin exam reveals no rashes. Digital exam reveals no evidence of any mass. There is a very small distal anovaginal fistula 3-4 mm in size just above the dentate line. IMPRESSION 1. History of rectal cancer, status post transanal endoscopic microsurgery, final pathology T1. No signs of recurrence. RECOMMENDATIONS Flex. sig. in six months, CEA today, and CEA in six months. IMPRESSION 2. Anovaginal fistula. Patient at this point continues to be minimally symptomatic. She states she is possibly becoming ready to consider surgery. Wediscussed the traditional flap repair but we also discussed the new Surgisis plug, which is specifically made for anovaginal fistulae and if she wants to, we could certainlygive this a try. We talked about the risks and benefits. I informed her that this is certainly lessrisky than a standard flap repair but perhaps less likely to work. She will think about this and let us know. Signed by Arnel Oliva MD, FACS 03/11/2008 13:34 Arnel Oliva MD, FACS [phone] - Arnel Oliva MD, FACS - CD Job ID: [id number] Doc ID: [id number] cc: MD Barbara Damico NP documented in this encounter Plan of Treatment Upcoming Encounters Date Type Department Care Team (Latest Contact Info) Description 03/27/2024 14:25 EST Hospital Encounter [facility] OR [address] [place] [address] [phone] Vishal Castillo MD [address] [place] [phone] 03/27/2024 14:25 EST - 03/27/2024 17:55 EST Surgery [facility] OR [address] [place] [address] [phone] Vishal Castillo MD [address] [place] [phone] Left Reverse Total Shoulder Arthroplasty [17043 (CPT??)] 04/08/2024 15:30 EST Post-op Visit [facility] Hand & Upper Extremity Program - [address] [address] Vishal Castillo MD [address] [place] [phone] Scheduled Procedures Name Priority Associated Diagnoses Date/Ti me ARTHROPLASTY, SHOULDER, TOTAL Left rotator cuff tear arthropathy 03/27/2024 14:25 EST documented as of this encounter Visit Diagnoses Not on filedocumented in this encounter Care Teams Postie Relationship Specialty Start Date End Date Barbara Conway, CHAINSTITCH BINDER [address] [place] [address] PCP - General 08/14/08 07/22/13 documented as of this encounter
--- OUTSIDE RECORDS SUMMARY | 2024-03-18 22:15 | XMS_ITS | Encounter Summary ---
Author Organization [facility] Address [address] [place] [address] Care Team Providers Care Senior Managing Director Name Role Phone Unavailable Primary Care Provider Unavailabl e Encounter Details Date Type Department Care Team (Latest Contact Info) Description 06/05/2007 16:24 EST Hospital Encounter [facility] - Other [address] [place] [address] Barbara Conway, SHREDDED FILLER CUTTER OPERATOR [address] [place] [address] Discharge Disposition: Home or Self Care Social [...] mouth daily. Reported on 08/31/2016 04/30/2007 10/24/2019 [place]-3 Fatty Acids-Vitamin E (FISH OIL) 1,000 mg Cap Take by mouth daily. 04/30/2007 01/06/2013 documented as of this encounter Discharge Disposition Disposition Code Departure Means Destination Home or Self Care documented in this encounter Plan of Treatment Upcoming Encounters Date Type Department Care Team (Latest Contact Info) Description 03/27/2024 14:25 EST Hospital Encounter [facility] OR [address] [place] [address] [phone] Vishal Castillo MD [address] [place] [phone] 03/27/2024 14:25 EST - 03/27/2024 17:55 EST Surgery [facility] OR [address] [place] [address] [phone] Vishal Castillo MD [address] [place] [phone] Left Reverse Total Shoulder Arthroplasty [56454 (CPT??)] 04/08/2024 15:30 EST Post-op Visit [facility] Hand & Upper Extremity Program - [address] [phone] Vishal Castillo MD [address] [place] [phone] Scheduled Procedures Name Priority Associated Diagnoses Date/Ti me ARTHROPLASTY, SHOULDER, TOTAL Left rotator cuff tear arthropathy 03/27/2024 14:25 EST documented as of this encounter Visit Diagnoses Not on filedocumented in this encounter
--- OUTSIDE RECORDS SUMMARY | 2024-03-18 22:15 | XMS_ITS | Encounter Summary ---
Author Organization [facility] Address [address] [place] [address] Care Team Providers Care Patient Care Name Role Phone ZoraidaBarbara Myla DREDGE PIPEMAN Primary Care Provider [phone] Encounter Details Date Type Department Care Team (Late st Contact Info) Description 09/23/2008 15:06 EDT - 09/23/2008 23:59 EDT Hospital Encounter [facility] [address] [place] [address] Arnel Oliva MD 111 [facility], [address] [place] [address] Discharge Disposition: Home or Self [...] mouth daily. Reported on 08/31/2016 04/30/2007 10/24/2019 [place]-3 Fatty Acids-Vitamin E (FISH OIL) 1,000 mg Cap Take by mouth daily. 04/30/2007 01/06/2013 simvastatin (ZOCOR) 80 mg tablet Take 80 mg by mouth at bedtime. 04/30/2008 12/21/2012 documented as of this encounter Discharge Disposition Disposition Code Departure Means Destination Home or Self [facility] documented in this encounter Plan of Treatment Upcoming Encounters Date Type Department Care Team (Latest Contact Info) Description 03/27/2024 14:25 EST Hospital Encounter [facility] OR [address] [place] [address] [phone] Vishal Castillo MD [address] [place] [phone] 03/27/2024 14:25 EST - 03/27/2024 17:55 EST Surgery [facility] OR [address] [place] [address] [phone] Vishal Castillo MD [address] [place] [phone] Left Reverse Total Shoulder Arthroplasty [27709 (CPT??)] 04/08/2024 15:30 EST Post-op Visit [facility] Hand & Upper Extremity Program - [facility] [place] [address] Vishal Castillo MD [address] [place] [phone] Scheduled Procedures Name Priority Associated Diagnoses Date/Ti me ARTHROPLASTY, SHOULDER, TOTAL Left rotator cuff tear arthropathy 03/27/2024 14:25 EST documented as of this encounter Procedures Procedure Name Priority Date/Time Associated Diagnosis Comments BUN Routine 09/23/2008 15:34 EDT CREATININE Routine 09/23/2008 15:34 EDT documented in this encounter Results * CREATININE (09/23/2008 15:34 EDT) Creatinine 0.90 0.7 - 1.5 mg/dl [facility] GFR, Calculated >60 ml/min/1.7 3m2 [facility] Blood specimen (specimen) 09/23/2008 15:34 EDT 09/23/2008 15:50 EDT us Arnel Oliva MD CHEMISTRY & BLOOD GAS ORDERAB LES Final Result Performing Organization Address City/[facility] Co de Phone Number [facility] [address] [place] [address] * BUN (09/23/2008 15:34 EDT) BUN 21 10 - 26 mg/dl [facility] Blood specimen (specimen) 09/23/2008 15:34 EDT 09/23/2008 15:50 EDT us Arnel Oliva MD CHEMISTRY & BLOOD GAS ORDERAB LES Final Result Performing Organization Address City/[facility]/ZIP Co de Phone Number [facility] [address] [place] [address] documented in this encounter Visit Diagnoses Not on filedocumented in this encounter Care Teams Patient Care Relationship Specialty Start Date End Date Barbara Conway, [place] [address] [place] [address] PCP - General 08/14/08 07/22/13 documented as of this encounter
--- OUTSIDE RECORDS SUMMARY | 2024-03-18 22:15 | XMS_ITS | Encounter Summary ---
Author Organization [facility] Address [address] [place] [address] Care Team Providers Care Repair Electric Motor Assembler Name Role Phone Unavailable Primary Care Provider Unavailabl e Encounter Details Date Type Department Care Team (Late st Contact Info) Description 10/01/2007 9:52 EDT Hospital Encounter [facility] [address] [place] [address] Barbara Conway, BOTTLING LINE OPERATOR [address] [place] [address] Social History Tobacco Use Types Packs/Day Years [...] Hospital Encounter [facility] OR [address] [place], [place] [phone] Vishal Castillo MD [address] [place] [phone] 03/27/2024 14:25 EST - 03/27/2024 17:55 EST Surgery [facility] OR [address] [place], [place] [phone] Vishal Castillo MD [address] [place] [phone] Left Reverse Total Shoulder Arthroplasty [78166 (CPT??)] 04/08/2024 15:30 EST Post-op Visit [facility] Hand & Upper Extremity Program - [address] [address] Vishal Castillo MD [address] [place] [phone] Scheduled Procedures Name Priority Associated Diagnoses Date/Ti me ARTHROPLASTY, SHOULDER, TOTAL Left rotator cuff tear arthropathy 03/27/2024 14:25 EST documented as of this encounter Procedures Procedure Name Priority Date/Time Associated Diagnosis Comments MA MAMMO SCREENING DIGITAL 10/01/2007 11:01 EDT documented in this encounter Results * MA MAMMO SCREENING DIGITAL (10/01/2007 11:01 EDT) Anatomical Region Laterality Modality Other 10/01/2007 11:0 1 EDT Narrative 10/05/2008 13:31 EDT routine Comparison is made to films from 09/08/2006 (bilateral). Bilateral Breast Findings: (CAD used to interpret routine digital): The breasts are almost entirely fat. No significant masses, calcifications or other abnormalities are seen. IMPRESSION: BILATERAL BREASTS - CATEGORY 1 Negative, no evidence of malignancy. Normal interval follow-up is recommended in 12 months. OVERALL ASSESSMENT - NEGATIVE END OF IMPRESSION The patient will be notified of her/his breast imaging results via a lay letter from Radiology. ??Radiology will contact the patient directly regarding any findings which require additional imaging (Category 0) at this time. I have personally reviewed the images and the above interpretation and agree with the findings. Procedure Note Sundeep Kay MD / Fernanda Ruiz MD - 10/05/2008 routine Comparison is made to films from 09/08/2006 (bilateral). Bilateral Breast Findings: (CAD used to interpret routine digital): The breasts are almost entirely fat. No significant masses, calcifications or other abnormalities are seen. IMPRESSION: BILATERAL BREASTS - CATEGORY 1 Negative, no evidence of malignancy. Normal interval follow-up is recommended in 12 months. OVERALL ASSESSMENT - NEGATIVE END OF IMPRESSION The patient will be notified of her/his breast imaging results via a lay letter from Radiology. Radiology will contact the patient directly regarding any findings which require additional imaging (Category 0) at this time. I have personally reviewed the images and [...]
--- OUTSIDE RECORDS SUMMARY | 2024-03-18 22:15 | XMS_ITS | Encounter Summary ---
Author Organization [facility] Address [address] [place] [address] Care Team Providers Care Field Tax Auditor Name Role Phone Unavailable Primary Care Provider Unavailabl e Encounter Details Date Type Department Care Team (Latest Contact Info) Description 07/28/2006 14:03 EDT Hospital Encounter [facility] - Other [address] [place] [address] Iraida Crews MD Discharge Disposition: Home or [...] Info) Description 03/27/2024 14:25 EST Hospital Encounter [facility] OR [address] [place], [place] [phone] Vishal Castillo MD [address] [place] [address] 03/27/2024 14:25 EST - 03/27/2024 17:55 EST Surgery [facility] OR [address] [place], [place] [address] Vishal Castillo MD [address] [place] [address] Left Reverse Total Shoulder Arthroplasty [60832 (CPT??)] 04/08/2024 15:30 EST Post-op Visit [facility] & Upper Extremity Program - [address] [address] Vishal Castillo MD [address] [place] [address] Scheduled Procedures Name Priority Associated Diagnoses Date/Ti me ARTHROPLASTY, SHOULDER, TOTAL Left rotator cuff tear arthropathy 03/27/2024 14:25 EST documented as of this encounter Procedures Procedure Name Priority Date/Time Associated Diagnosis Comments CARDIOLOGY TECH US PELVIS TRANSVAGINAL 08/03/2006 13:35 EDT COMPLETE BLOOD COUNT Routine 07/28/2006 8:20 EDT HEMOGLOBIN A1C Routine 07/28/2006 8:20 EDT CK Routine 07/28/2006 8:20 EDT HEPATIC FUNCTION PANEL (ALB,ALK PHOS,ALT,AST,DBIL,TOT RICK,TOT PROT) Routine 07/28/2006 8:20 EDT LIPID PROFILE (INCLUDES CHOLESTEROL, TRIGLYCERIDES, HDL, LDL) Routine 07/28/2006 8:20 EDT documented in this encounter Results * CARDIOLOGY TECH US PELVIS TRANSVAGINAL (08/03/2006 13:35 EDT) Anatomical Region Laterality Modality Other 08/03/2006 13:3 5 EDT Narrative 10/22/2008 10:43 EDT checking ovarian cyst-cyst seen on MRI GYNECOLOGIC ULTRASOUND DATE: ??August 03, 2006 INDICATION: ??The patient is a 61-year-old, -0-0-3 woman who has been postmenopausal for many years. ??She recently had a CT scan because of some abdominal issues, and in the findings of the CT scan there appeared to be a complex, cystic structure in the right adnexa, and she is here for further follow-up of that. Endovaginal and transabdominal ultrasound are performed. FINDINGS: ??The uterus is retroverted. ??It measures 6.6 cm sagittally by 3.3 cm AP by 4.5 cm transversely. ??The myometrium and cervix appear normal. ??The endometrium appears normal and measures 1.8 mm. No abnormalities are noted in the uterus or endometrial cavity. Both ovaries are visualized. ??The right ovary measures 2 x 1.2 x 1 cm. ??It is well seen. ??No abnormalities are seen within it or surrounding the ovary. ??The left ovary is also well visualized. ??It measures 1.8 x 1.1 x 1.2 cm and has no abnormalities. ??There is no free fluid or masses in the cul-de-sac. Transabdominal scanning is also done looking at both adnexa, and no separate masses or abnormalities are noted. ??The CT scan performed on June 23 was reviewed to ensure that we were looking in the same location as where the ovary was on CT and on our ultrasound no abnormality was noted in this area. IMPRESSION: 1. ??Normal gynecologic ultrasound. 2. ??Right ovary is well visualized and has a normal appearance consistent with a postmenopausal ovary. ??No abnormalities or concerning features are noted. ??No paraovarian abnormalities are noted. 3. ??Left ovary also appears normal. PLAN: ??The patient was educated to the findings. D: ??08/03/2006 T: ??08/03/2006 /lw Procedure Note Samina Charlton MD - 10/22/2008 checking ovarian cyst-cyst seen on MRI GYNECOLOGIC ULTRASOUND DATE: August 03, 2006 INDICATION: The patient is a 61-year-old, -0-0-3 woman who has been postmenopausal for many years. She recently had a CT scan because of some abdominal issues, and in the findings of the CT scan there appeared to be a complex, cystic structure in the right adnexa, and she is here for further follow-up of that. Endovaginal and transabdominal ultrasound are performed. FINDINGS: The uterus is retroverted. It measures 6.6 cm sagittally by 3.3 cm AP by 4.5 cm transversely. The myometrium and cervix appear normal. The endometrium appears normal and measures 1.8 mm. No abnormalities are noted in the uterus or endometrial cavity. Both ovaries are visualized. The right ovary measures 2 x 1.2 x 1 cm. It is well seen. No abnormalities are seen within it or surrounding the ovary. The left ovary is also well visualized. It measures 1.8 x 1.1 x 1.2 cm and has no abnormalities. There is no free fluid or masses in the cul-de-sac. Transabdominal scanning is also done looking at both adnexa, and no separate masses or abnormalities are noted. The CT scan performed on June 23 was reviewed to ensure that we were looking in the same location as where the ovary was on CT and on our ultrasound no abnormality was noted in this area. IMPRESSION: 1. Normal gynecologic ultrasound. 2. Right ovary is well visualized and has a normal appearance consistent with a postmenopausal ovary. No abnormalities or concerning features are noted. No paraovarian abnormalities are noted. 3. Left ovary also appears normal. PLAN: The patient was educated to the findings. /lw us Iraida Crews MD [facility] [place] CARDIOLOGY TECH ORDERABLES Elizabeth kohler Result * LIPID PROFILE (INCLUDES CHOLESTEROL, TRIGLYCERIDES, HDL, LDL) (07/28/2006 8:20 EDT) Cholesterol 188 mg/dl [facility] Comment: Desirable:<200 Borderline:200-239 High Risk:>zk=160 Triglycerides 85 35 - 160 mg/dl [facility] HDL 67 mg/dl [facility] Comment: Highly Desirable:>60 Desirable:35-60 High Risk:<35 LDL, Calculated 104 mg/dl [facility] Comment: Desirable:<130 Borderline:130-159 High Risk:>ii=186 Chol/HDL Ratio 2.8 [facility] Fasting? Yes [facility] 07/28/2006 8:20 EDT 07/28/2006 12:16 EDT Iraida Crews MD CHEMISTRY & BLOOD GAS ORDE REDD Final Result Performing Organization Address [facility] Co de Phone Number [facility] [address] [place] [address] * (ABNORMAL) LIVER FUNCTION TESTS (07/28/2006 8:20 EDT) Albumin 3.7 3.4 - 4.9 g/dl [facility] Total Protein 6.1(L) 6.5 - 8.3 g/dl [facility] Total Alkaline Phosphatase 75 38 - 126 U/L [facility] ALT 33 9 - 52 U/L [facility] AST 21 15 - 46 U/L [facility] Unconjugated Bilirubin 0.6 0.1 - 1.1 mg/dl [facility] Conjugated Bilirubin 0.0 0.0 - 0.3 mg/dl [facility] Bilirubin, Total <0.5 0.2 - 1.3 mg/dl [facility] 07/28/2006 8:20 EDT 07/28/2006 12:16 EDT Iraida Crews MD CHEMISTRY & BLOOD GAS ORDE RABJUVENAL Final Result Performing Organization Address [facility] Co de Phone Number [facility] [address] [place] [address] * CK (07/28/2006 8:20 EDT) CK 118 30 - 135 U/L [facility] 07/28/2006 8:20 EDT 07/28/2006 12:16 EDT us Iraida Crews MD CHEMISTRY & BLOOD GAS ORDAsuncion RAINEY Final Result Performing Organization Address [facility] de Phone Number [facility] [address] [place] [address] * HEMAGRAM (07/28/2006 8:20 EDT) WBC 4.51 4.0 - 12.4 K/cmm [facility] RBC 4.42 3.86 - 5.04 M/cmm [facility] Hemoglobin 12.6 11.6 - 15.2 gm/dl [facility] HCT 37.9 34.9 - 44.4 % [facility] MCV 86 81 - 98 fl [facility] MCH 28.5 26.7 - 33.3 pg [facility] MCHC 33.2 32.1 - 35.9 gm/dl [facility] PLT 270 141 - 320 K/cmm [facility] RDW-CV 14.3 11.7 - 14.6 % [facility] 07/28/2006 8:20 EDT 07/28/2006 12:16 EDT Iraida Crews MD HEMATOLOGY & PF4 ORDERABLE S Final Result Performing Organization Address [facility] de Phone Number [facility] [address] [place] [address] * HEMOGLOBIN A1C (07/28/2006 8:20 EDT) Hemoglobin A1C 5.9 % [facility] Comment: Reference Range: <6% Normal Range <7% Recommended goal by ADA guidelines 7-8% Suboptimal by ADA guidelines >8% Further action suggested by ADA guidelines 07/28/2006 8:20 EDT 07/28/2006 12:16 EDT Iraida Crews MD CHEMISTRY & BLOOD GAS SUGAR RAINEY Final Result Performing Organization Address [facility] Co de Phone Number [facility] [address] [place] [address] documented in this encounter Visit Diagnoses Not on filedocumented in this encounter
--- OUTSIDE RECORDS SUMMARY | 2024-03-18 22:15 | XMS_ITS | Encounter Summary ---
Author Organization [facility] Address [address] [place] [address] Care Team Providers Care Nut Process Helper Name Role Phone Barbara Conway ACTIVITY COORDINATOR Primary Care Provider [phone] Unknown, Provider Primary Care Provider Unava Yoel Carrera Primary Care Provider [phone] Barbara Conway ACTIVITY COORDINATOR Primary Care Provider [phone] Encounter Details Date Type Department Care Team (Late st Contact Info) Description 09/08/2006 Before PRISM Converted Visit (Maple) [place] - Maple conversion [address] [place] [address] Iraida Crews MD Social History Tobacco Use [...] Info) Description 03/27/2024 14:25 EST Hospital Encounter [facility] [place] [address] [place], [place] [phone] Vishal Castillo MD [address] [place] [phone] 03/27/2024 14:25 EST - 03/27/2024 17:55 EST Surgery [facility] [place] [address] [place], [place] [id number] Vishal Castillo MD [address] [place] [phone] Left Reverse Total Shoulder Arthroplasty [10414 (CPT??)] 04/08/2024 15:30 EST Post-op Visit [facility] - [place] [address] [place] [address] Vishal Castillo MD [address] [place] [address] Scheduled Procedures Name Priority Associated Diagnoses Date/Ti me ARTHROPLASTY, SHOULDER, TOTAL Left rotator cuff tear arthropathy 03/27/2024 14:25 EST documented as of this encounter Procedures Procedure Name Priority Date/Time Associated Diagnosis Comments MA MAMMO SCREENING DIGITAL 09/08/2006 10:12 EDT documented in this encounter Results * MA MAMMO SCREENING DIGITAL (09/08/2006 10:12 EDT) Anatomical Region Laterality Modality Other 09/08/2006 10:1 2 EDT Narrative 10/13/2008 2:10 EDT routine pt request films No comparison films were available at the time of this reading. Bilateral Breast Findings: (CAD used to interpret routine digital): There are scattered fibroglandular densities. No significant masses, calcifications or other abnormalities [...] (Category 0) at this time. Procedure Note Fernanda Ruiz MD - 10/13/2008 routine pt request films No comparison films were available at the time of this reading. Bilateral Breast Findings: (CAD used to interpret routine digital): There are scattered fibroglandular densities. No significant masses, calcifications or other abnormalities [...] imaging (Category 0) at this time. us Iraida Crews MD IMG MAMMOGRAPHY ORDERABLES Final Result documented in this encounter Visit Diagnoses Not on filedocumented in this encounter Additional Health Concerns Infection Onset Date Last Indicated Resolved Time R/O COVID-19 10/24/2019 10/24/2019 10/28/2019 10:3 2 EDT documented as of this encounter Care Teams Nut Process Helper Relationship Specialty Start Date End Date Barbara Conway ACTIVITY COORDINATOR [address] [place] [address] PCP - General 08/14/08 07/22/13 Unknown, Provider, [address] [place] [address] PCP - General 07/23/13 07/23/13 Yoel Reyes PA [address] [facility] [address] [place] [address] PCP - General 07/24/13 08/18/13 Barbara Conway NP [address] [place] [address] PCP - General 08/19/13 documented as of this encounter
--- OUTSIDE RECORDS SUMMARY | 2024-03-18 22:15 | XMS_ITS | Encounter Summary ---
Author Organization [facility] Address [address] [place] [address] Care Team Providers Care Animator Name Role Phone Unavailable Primary Care Provider Unavailabl e Encounter Details Date Type Department Care Team (Late st Contact Info) Description 11/15/2007 9:17 EDT Hospital Encounter [facility] [place] [address] [place] [address] Ying Llanos MD [address] [place] [address] [address] [place] [phone] Unknown, Provider, Social History Tobacco Use Types Packs/Day Years [...] Info) Description 03/27/2024 14:25 EST Hospital Encounter [facility] [address] [place], [place] [phone] Vishal Castillo MD [address] [place] [phone] 03/27/2024 14:25 EST - 03/27/2024 17:55 EST Surgery [facility] OR [address] [place], [place] [phone] Vishal Castillo MD [address] [place] [phone] Left Reverse Total Shoulder Arthroplasty [[id number] (CPT??)] 04/08/2024 15:30 EST Post-op Visit [facility] Hand & Upper Extremity Program - [address] [address] Vishal Castillo MD [address] [place] [phone] Scheduled Procedures Name Priority Associated Diagnoses Date/Ti me ARTHROPLASTY, SHOULDER, TOTAL Left rotator cuff tear arthropathy 03/27/2024 14:25 EST documented as of this encounter Procedures Procedure Name Priority Date/Time Associated Diagnosis Comments HEMOGLOBIN A1C Routine 01/10/2008 8:35 EDT LIPID PROFILE (INCLUDES CHOLESTEROL, TRIGLYCERIDES, HDL, LDL) Routine 01/10/2008 8:35 EDT COMPREHENSIVE METABOLIC PANEL (CMP) Routine 01/10/2008 8:35 EDT documented in this encounter Results * HEMOGLOBIN A1C (01/10/2008 8:35 EDT) Hemoglobin A1C 6.0 % [facility] Comment: Reference Range: <6% Normal Range ADA guidelines: The A1c goal for non adults in general is <7% The A1c goal for selected individual patients is as close to normal (<6%) as possible without significant hypoglycemia 01/10/2008 8:35 EDT 01/10/2008 12:24 EDT Barbara Conway CLAY TEMPERER CHEMISTRY & BLOOD GAS ORDERAB LES Final Result Performing Organization Address [facility] de Phone Number [facility] [address] [place] [address] * LIPID PROFILE (01/10/2008 8:35 EDT) Cholesterol 175 mg/dl [facility] Comment: Desirable:<200 Borderline:200-239 High Risk:>fd=849 Triglycerides 97 35 - 160 mg/dl [facility] HDL 68 mg/dl [facility] Comment: Highly Desirable:>60 Desirable:35-60 High Risk:<35 LDL, Calculated 88 mg/dl [facility] Comment: Desirable:<130 Borderline:130-159 High Risk:>ce=777 Chol/HDL Ratio 2.6 [facility] Fasting? Yes [facility] 01/10/2008 8:35 EDT 01/10/2008 12:24 EDT Barbara Conway CLAY TEMPERER CHEMISTRY & BLOOD GAS ORDERAB LES Final Result Performing Organization Address [facility] Phone Number [facility] [address] [place] [address] * (ABNORMAL) COMPREHENSIVE METABOLIC PANEL (01/10/2008 8:35 EDT) Potassium 4.1 3.5 - 5.0 mEq/L [facility] Sodium 142 136 - 145 mEq/L [facility] Chloride 106 96 - 110 mEq/L [facility] CO2 24 24 - 32 mEq/L [facility] Alkaline Phosphatase 67 38 - 126 U/L [facility] Bilirubin, Total <0.5 0.2 - 1.3 mg/dl [facility] AST 26 15 - 46 U/L [facility] ALT 23 9 - 52 U/L [facility] Albumin 4.6 3.4 - 4.9 g/dl [facility] Total Protein 7.0 6.5 - 8.3 g/dl [facility] Creatinine 0.76 0.7 - 1.5 mg/dl [facility] GFR, Calculated >60 ml/min/1.7 3m2 [facility] BUN 20 10 - 26 mg/dl [facility] Calcium 9.5 8.5 - 10.5 mg/dl [facility] Calculated Calcium 9.3 8.5 - 10.5 mg/dl [facility] Glucose, Serum 112(H) 70 - 100 mg/dl [facility] Fasting? Yes [facility] 01/10/2008 8:35 EDT 01/10/2008 12:24 EDT us Barbara Conway NP CHEMISTRY & BLOOD GAS ORDERAB LES Final Result Performing Organization Address City/State/[facility] Co de Phone Number [facility] [address] [place] [address] documented in this encounter Visit Diagnoses Not on filedocumented in this encounter Additional Health Concerns Infection Onset Date Last Indicated Resolved Time R/O COVID-19 10/24/2019 10/24/2019 10/28/2019 10:3 2 EDT documented as of this encounter
--- OUTSIDE RECORDS SUMMARY | 2024-03-18 22:15 | XMS_ITS | Encounter Summary ---
Author Organization [facility] Address [address] [place] [address] Care Team Providers Care Brand Sales Manager Name Role Phone Unavailable Primary Care Provider Unavailabl e Encounter Details Date Type Department Care Team (Late st Contact Info) Description 02/22/2008 9:22 EDT Hospital Encounter [facility] [place] [address] [place] [address] Arnel Oliva MD [address] [place] [address], [address] [place] [phone] Social History Tobacco Use Types Packs/Day Years [...] Info) Description 03/27/2024 14:25 EST Hospital Encounter [facility] [place] [address] [place], [place] [phone] Vishal Castillo MD [address] [place] [phone] 03/27/2024 14:25 EST - 03/27/2024 17:55 EST Surgery [facility] [place] [address] [place], [place] [phone] Vishal Castillo MD [address] [place] [phone] Left Reverse Total Shoulder Arthroplasty [62487 (CPT??)] 04/08/2024 15:30 EST Post-op Visit [facility] & Upper Extremity Program - [address] [address] Vishal Castillo MD [address] [place] [phone] Scheduled Procedures Name Priority Associated Diagnoses Date/Ti me ARTHROPLASTY, SHOULDER, TOTAL Left rotator cuff tear arthropathy 03/27/2024 14:25 EST documented as of this encounter Procedures Procedure Name Priority Date/Time Associated Diagnosis Comments CEA Routine 02/22/2008 9:54 EDT documented in this encounter Results * CEA (02/22/2008 9:54 EDT) CEA 1.9 ng/ml [facility] Comment: % Distribution of CEA (ng/ml) 0-2.5 in 98.2% of non-smokers and 87.3% of smokers 2.6-5.0 in 1.8% of non-smokers and 8.0% of smokers 5.1-10.1 in 4.7% of smokers Serum CEA concentration should not be interpreted as absolute evidence for the presence or absence of malignant disease. Assayed utilizing [place] chemiluminescent technology. Values obtained by using different assay methods cannot be used interchangeably. 02/22/2008 9:54 EDT 02/22/2008 9:55 EDT us Arnel Oliva MD CHEMISTRY & BLOOD GAS ORDERAB LES Final Result [facility] [address] [place] [address] documented in this encounter Visit Diagnoses Not on filedocumented in this encounter Additional Health Concerns Infection Onset Date Last Indicated Resolved Time R/O COVID-19 10/24/2019 10/24/2019 10/28/2019 10:3 2 EDT documented as of this encounter
--- OUTSIDE RECORDS SUMMARY | 2024-03-18 22:15 | XMS_ITS | Encounter Summary ---
Author Organization [facility] Address [address] [place] [address] Care Team Providers Care Food Preparation Worker Name Role Phone Unavailable Primary Care Provider Unavailabl e Encounter Details Date Type Department Care Team (Late st Contact Info) Description 08/15/2006 12:59 EDT Hospital Encounter [address] [address] Unknown, Provider, Social History Tobacco Use Types [...] Description 03/27/2024 14:25 EST Hospital Encounter [facility] OR [address] [place] [phone] Vishal Castillo MD [address] [place] [phone] 03/27/2024 14:25 EST - 03/27/2024 17:55 EST Surgery [facility] OR [address] [place] [address] Vishal Castillo MD [address] [place] [phone] Left Reverse Total Shoulder Arthroplasty [14927 (CPT??)] 04/08/2024 15:30 EST Post-op Visit [facility] & Upper Extremity Program - [address] [place] [address] Vishal Castillo MD [address] [place] [phone] Scheduled Procedures Name Priority Associated Diagnoses Date/Ti me ARTHROPLASTY, SHOULDER, TOTAL Left rotator cuff tear arthropathy 03/27/2024 14:25 EST documented as of this encounter Visit Diagnoses Not on filedocumented in this encounter Additional Health Concerns Infection Onset Date Last Indicated Resolved Time R/O COVID-19 10/24/2019 10/24/2019 10/28/2019 10:3 2 EDT documented as of this encounter
--- OUTSIDE RECORDS SUMMARY | 2024-03-18 22:15 | XMS_ITS | Encounter Summary ---
Author Organization [facility] Address [address] [place] [address] Care Team Providers Care Bookbinder Apprentice Name Role Phone Barbara Conway Myla DIGESTER Primary Care Provider [phone] Encounter Details Date Type Department Care Team (Late st Contact Info) Description 12/19/2006 Results Only [facility] General Surgery - [address] [address] Arnel Oliva MD [address] [facility], [address] [place] [phone] Social History Tobacco Use Types Packs/Day Years [...] Info) Description 03/27/2024 14:25 EST Hospital Encounter [facility] OR [address] [place] [phone] Vishal Castillo MD [address] [place] [phone] 03/27/2024 14:25 EST - 03/27/2024 17:55 EST Surgery [facility] [place] [address] [place], [place] [phone] Vishal Castillo MD [address] [place] [phone] Left Reverse Total Shoulder Arthroplasty [68245 (CPT??)] 04/08/2024 15:30 EST Post-op Visit [facility] & Upper Extremity Program - [address] [place] [address] Vishal Castillo MD [address] [place] [address] Scheduled Procedures Name Priority Associated Diagnoses Date/Ti me ARTHROPLASTY, SHOULDER, TOTAL Left rotator cuff tear arthropathy 03/27/2024 14:25 EST documented as of this encounter Procedures Procedure Name Priority Date/Time Associated Diagnosis Comments CEA REPEAT Routine 12/19/2006 10:17 EDT documented in this encounter Results * CEA REPEAT (12/19/2006 10:17 EDT) CEA 1.5 ng/ml [facility] Comment: % Distribution of CEA (ng/ml) 0-2.5 in 98.2% of non-smokers and 87.3% of smokers 2.6-5.0 in 1.8% of non-smokers and 8.0% of smokers 5.1-10.1 in 4.7% of smokers Serum CEA concentration should not be interpreted as absolute evidence for the presence or absence of malignant disease. Assayed utilizing [employer] chemiluminescent technology. Values obtained by using different assay methods cannot be used interchangeably. PREVIOUS CEA RESULT ON 08/11/06 WAS 1.5 AND ON 05/10/06 WAS 1.7 12/19/2006 10:1 7 EDT 12/19/2006 10:28 EDT us Arnel Oliva MD CHEMISTRY & BLOOD GAS ORDERAB LES Final Result [facility] [address] [place] [address] documented in this encounter Visit Diagnoses Not on filedocumented in this encounter Care Teams Bookbinder Apprentice Relationship Specialty Start Date End Date Barbara Conway, DIGESTER [address] [place] [address] PCP - General 08/14/08 07/22/13 documented as of this encounter
--- OUTSIDE RECORDS SUMMARY | 2024-03-18 22:15 | XMS_ITS | Encounter Summary ---
Author Organization [facility] Address [address] [place] [address] Care Team Providers Care Steamboat Pilot Name Role Phone Barbara Conway DRAMATIC READER Primary Care Provider [phone] Encounter Details Date Type Department Care Team (Late st Contact Info) Description 04/19/2007 Results Only [facility] - Maple conversion [address] [place] [phone] Kristina Greenwood MD Social History Tobacco Use Types Packs/Day [...] Encounter [facility] OR [address] [place] [address] [phone] Vishal Castillo MD [address] [place] [phone] 03/27/2024 14:25 EST - 03/27/2024 17:55 EST Surgery [facility] OR [address] [place] [address] [phone] Vishal Castillo MD [address] [place] [phone] Left Reverse Total Shoulder Arthroplasty [61644 (CPT??)] 04/08/2024 15:30 EST Post-op Visit [facility] Hand & Upper Extremity Program - [facility] [address] [place] [address] Vishal Castillo MD [address] [place] [phone] Scheduled Procedures Name Priority Associated Diagnoses Date/Ti me ARTHROPLASTY, SHOULDER, TOTAL Left rotator cuff tear arthropathy 03/27/2024 14:25 EST documented as of this encounter Procedures Procedure Name Priority Date/Time Associated Diagnosis Comments URINALYSIS WITH MICROSCOPIC IF POSITIVE Routine 04/19/2007 13:45 EST UA REFLEX Routine 04/19/2007 13:45 EST URINE CULTURE IF POSITIVE Routine 04/19/2007 13:45 EST documented in this encounter Results * UA REFLEX (04/19/2007 13:45 EST) UA Billing Microscopic not indicated. [facility] 04/19/2007 13:4 5 EST 04/19/2007 17:43 EST us Kristina Greenwood MD URINALYSIS ORDERABLES Fin al Result [facility] [address] [place] [address] * URINALYSIS (04/19/2007 13:45 EST) Color, UA Yellow [facility] Clarity, UA Hazy [facility] Glucose, UA Norm NORM [facility] Bilirubin, UA Neg NEG [facility] Ketones, UA Neg NEG [facility] Specific [place], Urine 1.020 1.005 - 1.02 [facility] Blood, UA Neg NEG [facility] pH, UA 6.5 5.0 - 9.0 [facility] Protein, UA Neg NEG [facility] Urobilinogen, UA Norm NORM mg/dL [facility] Nitrite, UA Neg NEG [facility] Leuk Esterase Neg NEG [facility] 04/19/2007 13:4 5 EST 04/19/2007 17:43 EST Kristina Greenwood MD URINALYSIS ORDERABLES Fin al Result Performing Organization Address [facility] de Phone Number [facility] [address] [place] [address] * CULTURE IF UA POSITIVE (04/19/2007 13:45 EST) Culture if Indicated Culture not indicated by urinalysis results. [facility] 04/19/2007 13:4 5 EST 04/19/2007 17:43 EST Kristina Greenwood MD MICROBIOLOGY - GENERAL OR DERABLES Final Result Performing Organization Address [facility] de Phone Number [facility] [address] [place] [address] documented in this encounter Visit Diagnoses Not on filedocumented in this encounter Care Teams Steamboat Pilot Relationship Specialty Start Date End Date Barbara Conway, DRAMATIC READER [address] [place] [address] PCP - General 08/14/08 07/22/13 documented as of this encounter
--- OUTSIDE RECORDS SUMMARY | 2024-03-18 22:15 | XMS_ITS | Encounter Summary ---
Author Organization [facility] Address [address] [place] [address] Care Team Providers Care Daily Release And Dupe Printer Name Role Phone Unavailable Primary Care Provider Unavailabl e Encounter Details Date Type Department Care Team (Late st Contact Info) Description 12/29/2006 10:57 EDT Hospital Encounter [facility] [address] [place] [address] Arnel Oliva MD [address] [place] [address], [address] [place] [phone] Social History Tobacco Use Types Packs/Day Years [...] Info) Description 03/27/2024 14:25 EST Hospital Encounter [facility] OR [address] [place] [address] [phone] Vishal Castillo MD [address] [place] [phone] 03/27/2024 14:25 EST - 03/27/2024 17:55 EST Surgery [facility] OR [address] [place] [address] [phone] Vishal Castillo MD [address] [place] [phone] Left Reverse Total Shoulder Arthroplasty [22152 (CPT??)] 04/08/2024 15:30 EST Post-op Visit [facility] Hand & Upper Extremity Program - [address] [address] Vishal Castillo MD [address] [place] [phone] Scheduled Procedures Name Priority Associated Diagnoses Date/Ti me ARTHROPLASTY, SHOULDER, TOTAL Left rotator cuff tear arthropathy 03/27/2024 14:25 EST documented as of this encounter Visit Diagnoses Not on filedocumented in this encounter Additional Health Concerns Infection Onset Date Last Indicated Resolved Time R/O COVID-19 10/24/2019 10/24/2019 10/28/2019 10:3 2 EDT documented as of this encounter
--- OUTSIDE RECORDS SUMMARY | 2024-03-18 22:15 | XMS_ITS | Encounter Summary ---
Author Organization [facility] Address [address] [place] [address] Care Team Providers Care Cooker Meal Name Role Phone Barbara Conway PHOTOENGRAVING PROOFER Primary Care Provider [phone] Encounter Details Date Type Department Care Team (Late st Contact Info) Description 11/15/2007 Before PRISM Converted Visit (Maple) [facility] - Maple conversion [address] [place] [address] Ying Llanos MD [address] [place] [address] [phone] Social History Tobacco Use Types Packs/Day Years Used Date Smoking Tobacco: Never Assessed Comments Unknown Sex and Gender Information Value Date Recorded Sex Assigned at Female 03/08/2024 18:30 EST Legal Sex Female 18:30 EST Gender Identity Female 05/28/2019 8:56 EST Sexual Orientation Not on file documented as of this encounter Progress Notes * Ying Llanos MD - 01/23/2009 1234 EDT [facility] [address] November 15, 2007 Referring Provider: Dr. Conway Date of Examination: 11/15/2007 Reason for Study: Menopausal symptoms (627.2) Densitometer: enavu Prodigy Quality of Study: Spine L1-L2: Adequate for interpretation L3 and L4 excluded due to arthritis or scoliosis. Proximal Femur (hip): Adequate for interpretation The results of this study and any comparable previous studies are as follows: Region Scan Date g/cm2 % Young Normal Control % Age Matched T-Score Femoral Neck (mean)* 11/15/2007 1.011 97 118 -0.2 AP Spine L1-L2 11/15/2007 1.065 91 105 -0.9 *This site has the lowest bone density in the hip area and therefore is being used for diagnosis. WHO Classification by T-score The T-score in bone densitometry measures the number of standard deviations the density is below that of a young adult population matched for sex. The World Health Organization (WHO) has classified bone mass using T-score as follows: Normal: T-score of -1 or greater Little risk of fracture Osteopenia: T-score between -1 and -2.5 Low bone mass Osteoporosis: T-score of -2.5 or less Increased risk of fracturing Severe Osteoporosis:by T-score plus previous fragility fracture Diagnosis by WHO Classification: Normal At this time there is little risk of fracturing. Fracture Risk Calculation The ten year probability of developing a fracture is 7%. This compares to the average 10 year risk for a woman of the same age of 11%. (ref. Mara KNIGHT et al, Osteop Int. 2001) Risk Factors Identified by the Patient ?? Inadequate lifetime calcium intake ?? Lack of regular weight-bearing exercise The above listed risk factors are likely to increase the risk of fracture. Patient's Present Therapy and Suggested Treatment Patient's dietary intake of calcium from questionnaire: 350 mg. Patient's calcium supplementation from questionnaire: 1000 mg. NIH Consensus Panel recommendation: 1500 mg. Adequate vitamin D is recommended: 400-800 units daily. These recommendations for calcium and vitamin D intake may not apply to people with chronic kidney disease or who are on dialysis. Patient should also be encouraged to participate in weight bearing exercise. Hormone replacement therapy (HRT) is not indicated for the prevention of bone loss alone but may beprescribed if there are additional indications such as menopausal symptoms. An assessment was made of the risks for such therapy. No risk factors were identified specific to this individual. Based on the above evaluation, calcium and vitamin D may be adequate at this time to reduce the risk of future fractures. The measurement of bone mass cannot diagnose or adequately screen for the presence of metabolic bone disease. Therefore, when clinically indicated, additional studies may be needed. A report of our findings has been sent to your patient. Sincerely, Ying Llanos M.D. [facility] 11/16/2007 11:34 AM Softmed Document ID: [id number] documented in this encounter Plan of Treatment Upcoming Encounters Date Type Department Care Team (Latest Contact Info) Description 03/27/2024 14:25 EST Hospital Encounter [facility] OR [address] [place] [address] [phone] Vishal Castillo MD [address] [place] [phone] 03/27/2024 14:25 EST - 03/27/2024 17:55 EST Surgery [facility] OR [address] [place] [address] [phone] Vishal Castillo MD [address] [place] [phone] Left Reverse Total Shoulder Arthroplasty [34704 (CPT??)] 04/08/2024 15:30 EST Post-op Visit [facility] Hand & Upper Extremity Program - [address] [address] Vishal Castillo MD [address] [place] [phone] Scheduled Procedures Name Priority Associated Diagnoses Date/Ti me ARTHROPLASTY, SHOULDER, TOTAL Left rotator cuff tear arthropathy 03/27/2024 14:25 EST documented as of this encounter Visit Diagnoses Not on filedocumented in this encounter Care Teams Cooker Meal Relationship Specialty Start Date End Date Barbara Conway NP [address] [place] [address] PCP - General 08/14/08 07/22/13 documented as of this encounter
--- OUTSIDE RECORDS SUMMARY | 2024-03-18 22:15 | XMS_ITS | Encounter Summary ---
Author Organization [facility] Address [address] [place] [address] Care Team Providers Care Vending Machine Refiller Name Role Phone Barbara Conway Myla SPRINKLER WORKER Primary Care Provider [phone] Encounter Details Date Type Department Care Team (Late st Contact Info) Description 08/31/2007 Results Only [facility] General Surgery - [address] [id number] Arnel Oliva MD [address] [facility], [address] [place] [phone] Social History Tobacco Use Types Packs/Day Years [...] 03/27/2024 14:25 EST Hospital Encounter [facility] OR [address] [place] [address] [phone] Vishal Castillo MD [address] [place] [phone] 03/27/2024 14:25 EST - 03/27/2024 17:55 EST Surgery [facility] OR [address] [place], [place] [phone] Vishal Castillo MD [address] [place] [phone] Left Reverse Total Shoulder Arthroplasty [06494 (CPT??)] 04/08/2024 15:30 EST Post-op Visit [facility] Hand & Upper Extremity Program - [address] [place] [address] Vishal Castillo MD [address] [place] [phone] Scheduled Procedures Name Priority Associated Diagnoses Date/Ti me ARTHROPLASTY, SHOULDER, TOTAL Left rotator cuff tear arthropathy 03/27/2024 14:25 EST documented as of this encounter Procedures Procedure Name Priority Date/Time Associated Diagnosis Comments CEA REPEAT Routine 08/31/2007 10:52 EDT documented in this encounter Results * CEA REPEAT (08/31/2007 10:52 EDT) CEA 1.7 ng/ml [facility] Comment: % Distribution of CEA (ng/ml) 0-2.5 in 98.2% of non-smokers and 87.3% of smokers 2.6-5.0 in 1.8% of non-smokers and 8.0% of smokers 5.1-10.1 in 4.7% of smokers Serum CEA concentration should not be interpreted as absolute evidence for the presence or absence of malignant disease. Assayed utilizing Index chemiluminescent technology. Values obtained by using different assay methods cannot be used interchangeably. PREVIOUS CEA RESULT ON 03/30/07 WAS 2.5 AND ON 12/19/06 WAS 1.5. 08/31/2007 10:5 2 EDT 08/31/2007 10:54 EDT us Arnel Oliva MD CHEMISTRY & BLOOD GAS ORDERAB LES Final Result [facility] [address] [place] [address] documented in this encounter Visit Diagnoses Not on filedocumented in this encounter Care Teams Vending Machine Refiller Relationship Specialty Start Date End Date Barbara Conway, SPRINKLER WORKER [address] [place] [address] PCP - General 08/14/08 07/22/13 documented as of this encounter
--- OUTSIDE RECORDS SUMMARY | 2024-03-18 22:15 | XMS_ITS | Encounter Summary ---
Author Organization [facility] Address [address] [place] [address] Care Team Providers Care Steward/Stewardess Third Class Name Role Phone JuanBarbara whitney Myla BROILER SUPERVISOR Primary Care Provider [phone] Encounter Details Date Type Department Care Team (Late st Contact Info) Description 08/11/2006 Before PRISM Converted Visit (Maple) [facility] - Maple conversion [address] [place], [place] 8[address] [phone] Arnel Oliva MD [address] [facility], [address] [place] [address] Social History Tobacco Use Types Packs/Day Years Used Date Smoking Tobacco: Never Assessed Comments Unknown Sex and Gender Information Value Date Recorded Sex Assigned at Female 03/08/2024 18:30 EST Legal Sex Female 18:30 EST Gender Identity Female 05/28/2019 8:56 EST Sexual Orientation Not on file documented as of this encounter Progress Notes * Arnel Oliva MD - 02/27/2009 7504 EST DIVISION OF GENERAL SURGERY August 25, 2006 [address] [place] [address] Dear Aretha: news! Your CEA is 1.5 which is entirely within normal limits and indicative of no recurrent colorectal cancer. I understand you have canceled your surgery for now. I look forward to seeing you whenever you feel the time is right for you to have your surgery. 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 The patient is one year status post TEM for malignant rectal polyp with negative margins. Final pathology T1. No signs of recurrence. All previous studies have been completely normal. The patient now complains of persistent drainage in the vagina. This has not resolved and patient is interested in having this situation rectified. She has perfect continence. No difficulty with urgency or anal leakage. PAST MEDICAL HISTORY Is positive for diabetes, hypertension, coronary artery disease. Negative for bleeding, liver, renal abnormalities. MEDICATIONS 1. Glucophage 1000 mg daily. 2. Lisinopril 40 mg daily. 3. Calcium 800 mg daily. 4. Multivitamin. 5. Vitamin E. 6. Aspirin 81 mg daily. 7. Actos 30 mg daily. 8. Colace 100 mg daily. 9. Zetia 10 mg daily. 10. [place]-3 fish oil 3 tablets daily. 11. Glucosamine and chondroitin sulfate 2 tablets daily. ALLERGIES None. REVIEW OF SYSTEMS Is negative for chest pain, shortness of breath, nausea, vomiting, weight loss, fatigue, or other systemic symptoms. Appetite is good. Energy is normal. OBJECTIVE On physical examination, HEENT exam is unremarkable. Lungs are clear. Cardiac exam is regular rate and rhythm. Abdomen is soft, nontender, no palpable masses. No guarding or rebound. External anal exam is normal. Digital exam reveals normal sphincter tone. There is an anterior anovaginal fistula approximately 5mm in diameter. It is just above the dentate line. Extremity, neurologic, and vascular exams are normal. 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 RECOMMENDATION Repair. Risks including hemorrhage, infection, worsening fistula, anal incontinence, need for colostomy, yeast infection. The patient understands all of these risks and requests to proceed. She understands of no treatment and does wish to have her fistula repaired. Signed by Arnel Oliva MD, FACS 08/22/2006 14:43 Miguel Angel Oliva MD, [id number] MD Hazel, FACS D: - Arnel Oliva MD, FACS P - bc Job ID: [id number] Document ID: [id number] cc: Iraida Crews MD documented in this encounter Plan of Treatment Upcoming Encounters Date Type Department Care Team (Latest Contact Info) Description 03/27/2024 14:25 EST Hospital Encounter [facility] OR [address] [place] [address] [phone] iVshal Castillo MD [address] [place] [phone] 03/27/2024 14:25 EST - 03/27/2024 17:55 EST Surgery [facility] OR [address] [place] [address] [phone] Vishal Castillo MD [address] [place] [phone] Left Reverse Total Shoulder Arthroplasty [05744 (CPT??)] 04/08/2024 15:30 EST Post-op Visit [facility] Hand & Upper Extremity Program - [address] [address] Vishal Castillo MD [address] [place] [phone] Scheduled Procedures Name Priority Associated Diagnoses Date/Ti me ARTHROPLASTY, SHOULDER, TOTAL Left rotator cuff tear arthropathy 03/27/2024 14:25 EST documented as of this encounter Visit Diagnoses Not on filedocumented in this encounter Care Teams Steward/Stewardess Third Class Relationship Specialty Start Date End Date Barbara Conway, [place] [address] [place] [address] PCP - General 08/14/08 07/22/13 documented as of this encounter
--- OUTSIDE RECORDS SUMMARY | 2024-03-18 22:16 | XMS_ITS | Encounter Summary ---
Author Organization [facility] Address [address] [place] [address] Care Team Providers Care Education Program Associate Name Role Phone Unavailable Primary Care Provider Unavailabl e Encounter Details Date Type Department Care Team (Latest Contact Info) Description 07/14/2006 12:05 EDT Hospital Encounter [facility] - Other [address] [place] [address] Iraida Crews MD Discharge Disposition: Auto Discharge [...] Hospital Encounter [facility] OR [address] [place], [place] [phone] Vishal Castillo MD [address] [place] [phone] 03/27/2024 14:25 EST - 03/27/2024 17:[address] [facility] OR [address] [place] [address]21 Vishal Castillo MD [address] [place] [phone] Left Reverse Total Shoulder Arthroplasty [94441 (CPT??)] 04/08/2024 15:30 EST Post-op Visit [facility] Hand & Upper Extremity Program - [address] [address] Vishal Castillo MD [address] [place] [phone] Scheduled Procedures Name Priority Associated Diagnoses Date/Ti me ARTHROPLASTY, SHOULDER, TOTAL Left rotator cuff tear arthropathy 03/27/2024 14:25 EST documented as of this encounter Visit Diagnoses Not on filedocumented in this encounter
--- OUTSIDE RECORDS SUMMARY | 2024-03-18 22:16 | XMS_ITS | Encounter Summary ---
Author Organization [facility] Address [address] [place] [address] Care Team Providers Care Quality Control Inspector Name Role Phone Unavailable Primary Care Provider Unavailabl e Encounter Details Date Type Department Care Team (Late st Contact Info) Description 01/09/2006 13:03 EDT Hospital Encounter [facility] [address] [place] [address] Arnel Oliva MD [address] [place] [address], [address] [place] [phone] Social History Tobacco Use Types Packs/Day Years [...] 03/27/2024 14:25 EST Hospital Encounter [facility] OR [address] [place], [place] [phone] Vishal Castillo MD [address] [place] [phone] 03/27/2024 14:25 EST - 03/27/2024 17:55 EST Surgery [facility] OR [address] [place], [place] [phone] Vishal Castillo MD [address] [place] [phone] Left Reverse Total Shoulder Arthroplasty [33447 (CPT??)] 04/08/2024 15:30 EST Post-op Visit [facility] Hand & Upper Extremity Program - [address] [address] Vishal Castillo MD [address] [place] [phone] Scheduled Procedures Name Priority Associated Diagnoses Date/Ti me ARTHROPLASTY, SHOULDER, TOTAL Left rotator cuff tear arthropathy 03/27/2024 14:25 EST documented as of this encounter Procedures Procedure Name Priority Date/Time Associated Diagnosis Comments CEA REPEAT Routine 01/09/2006 14:19 EDT documented in this encounter Results * CEA REPEAT (01/09/2006 14:19 EDT) CEA 1.3 ng/ml [facility] Comment: % Distribution of CEA (ng/ml) 0-2.5 in 98.2% of non-smokers and 87.3% of smokers 2.6-5.0 in 1.8% of non-smokers and 8.0% of smokers 5.1-10.1 in 4.7% of smokers Serum CEA concentration should not be interpreted as absolute evidence for the presence or absence of malignant disease. Assayed utilizing Real Gravity chemiluminescent technology. Values obtained by using different assay methods cannot be used interchangeably. PREVIOUS CEA ON 10/13/05 WAS 1.0 AND ON 07/22/05 WAS 1.1 01/09/2006 14:1 9 EDT 01/09/2006 14:20 EDT us Arnel Oliva MD CHEMISTRY & BLOOD GAS ORDERAB LES Final Result [facility] [address] [place] [address] documented in this encounter Visit Diagnoses Not on filedocumented in this encounter Additional Health Concerns Infection Onset Date Last Indicated Resolved Time R/O COVID-19 10/24/2019 10/24/2019 10/28/2019 10:3 2 EDT documented as of this encounter
--- OUTSIDE RECORDS SUMMARY | 2024-03-18 22:16 | XMS_ITS | Encounter Summary ---
Author Organization [facility] Address [address] [place] [address] Care Team Providers Care Appraiser Real Estate Name Role Phone EduardoBarbara cherry Myla PROPERTY MANAGEMENT ACCOUNTANT Primary Care Provider [phone] Encounter Details Date Type Department Care Team (Late st Contact Info) Description 05/20/2005 Before PRISM Converted Visit (Maple) [facility] - Maple conversion [address] [place], [place] [address] [phone] Arnel Oliva MD [address] [facility], [address] 5 [place] [address] Social History Tobacco Use Types Packs/Day Years Used Date Smoking Tobacco: Never Assessed Comments Unknown Sex and Gender Information Value Date Recorded Sex Assigned at Female 03/08/2024 18:30 EST Legal Sex Female 18:30 EST Gender Identity Female 05/28/2019 8:56 EST Sexual Orientation Not on file documented as of this encounter Consult Notes * Arnel Oliva MD - 06/24/20091950 EST DIVISION OF GENERAL SURGERY CONSULTATION - 05/20/2005 PREOPERATIVE HISTORY AND PHYSICAL EXAMINATION Patient is a 60-year-old female with rectal cancer. Patient experienced some bright red blood per rectum and a prolapsing rectal mass. Patient denied change in bowel habits, weight loss, nausea, vomiting or other systemic symptoms. She has been somewhat tired at work and has decreased tolerance to activity but no shortness of breath or chest pain. Patients hematocrit was noted to be 26. Patient underwent a colonoscopy and a rectal ultrasound which revealed a T1 rectal cancer. Biopsieswere consistent with adenocarcinoma. Patient underwent CT scan which revealed no other abnormalities in the abdomen or pelvis. There were some tender nodules at 6 mm or less in the lung which are of uncertain significance (this was discussed with Dr. Anand and Dr. Ady Oglesby. Options include repeat CT scan, percutaneous biopsy or PET scan.) PAST MEDICAL HISTORY: Positive for diabetes, hypertension, elevated cholesterol. 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 Patient has never had any bleeding, including with prior surgeries or other procedures. PAST SURGICAL HISTORY: Tonsillectomy and tubal ligation. SOCIAL HISTORY: Patient does not smoke, she does not drink to excess. 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 FAMILY HISTORY: Negative. PHYSICAL EXAM: HEENT exam is unremarkable. Neck without masses. Lungs clear. Cardiac exam is regular rate and rhythm. Abdomen soft, non tender, no palpable masses. Obese. External anal exam is normal. Digital exam reveals a mass in the left lateral position which prolapses through the anal verge. Sphincter tone is normal. No other abnormalities are noted. Extremity, neurologic and vascularexams are normal. A: 1) T1 rectal cancer by ultrasound. Plan: TEM. Risks including hemorrhage, infection, incontinence, need for further therapy if lesion contains adverse histologic features or turns out to be T2. Patient is informed that more therapy could include chemoradiation or perhaps more surgery. 2) Abnormal CT scan. Patient and I discussed this. She wishes to have her rectal mass removed first. Following this, we will consider either repeat CT scan or percutaneous CT guided biopsy. Signed by Arnel Oliva MD, FACS 06/01/2005 16:15 Miguel Angel Oliva MD, [id number] A Cataldo, MD, FACS Arnel Oliva MD, FACS [phone] - Arnel Oliva MD, FACS P - cd Job ID: tape Document ID: [id number] cc: MD Ab Silva MD, FACS Papo Godoy MD documented in this encounter Plan of Treatment Upcoming Encounters Date Type Department Care Team (Latest Contact Info) Description 03/27/2024 14:25 EST Hospital Encounter [facility] [place] [address] [place] [address] [phone] Vishal Castillo MD [address] [place] [phone] 03/27/2024 14:25 EST - 03/27/2024 17:55 EST Surgery [facility] OR [address] [place] [address] [phone] Vishal Castillo MD [address] [place] [phone] Left Reverse Total Shoulder Arthroplasty [94672 (CPT??)] 04/08/2024 15:30 EST Post-op Visit [facility] Hand & Upper Extremity Program - [address] [address] Vishal Castillo MD [address] [place] [phone] Scheduled Procedures Name Priority Associated Diagnoses Date/Ti me ARTHROPLASTY, SHOULDER, TOTAL Left rotator cuff tear arthropathy 03/27/2024 14:25 EST documented as of this encounter Visit Diagnoses Not on filedocumented in this encounter Care Teams Appraiser Real Estate Relationship Specialty Start Date End Date Barbara Conway NP [address] [place], [place] [phone] PCP - General 08/14/08 07/22/13 documented as of this encounter
--- OUTSIDE RECORDS SUMMARY | 2024-03-18 22:16 | XMS_ITS | Encounter Summary ---
Author Organization [facility] Address [address] [place] [address] Care Team Providers Care Artist'S Manager Name Role Phone Unavailable Primary Care Provider Unavailabl e Encounter Details Date Type Department Care Team (Late st Contact Info) Description 05/20/2005 10:55 EST Hospital Encounter [facility] [address] [place] [address] Arnel Oliva MD [address] [place] [address], [address] [place] [phone] Social History Tobacco Use Types Packs/Day Years [...] [facility] OR [address] [place] [address] Vishal Castillo MD [address] [place] [phone] 03/27/2024 14:25 EST - 03/27/2024 17:55 EST Surgery [facility] OR [address] [place] [address] Vishal Castillo MD [address] [place] [phone] Left Reverse Total Shoulder Arthroplasty [84538 (CPT??)] 04/08/2024 15:30 EST Post-op Visit [facility] Hand & Upper Extremity Program - [address] [address] Vishal Castillo MD [address] [place] [phone] Scheduled Procedures Name Priority Associated Diagnoses Date/Ti me ARTHROPLASTY, SHOULDER, TOTAL Left rotator cuff tear arthropathy 03/27/2024 14:25 EST documented as of this encounter Visit Diagnoses Not on filedocumented in this encounter Additional Health Concerns Infection Onset Date Last Indicated Resolved Time R/O COVID-19 10/24/2019 10/24/2019 10/28/2019 10:3 2 EDT documented as of this encounter
--- OUTSIDE RECORDS SUMMARY | 2024-03-18 22:16 | XMS_ITS | Encounter Summary ---
Author Organization [facility] Address [address] [place] [address] Care Team Providers Care Wire Winding Machine Tender Name Role Phone Barbara Conway Myla FOOD MIXER ASSEMBLER Primary Care Provider [phone] Encounter Details Date Type Department Care Team (Late st Contact Info) Description 05/24/2005 Results Only [facility] General Surgery - [address] [phone] Arnel Muñoz MD 111 [facility], [address] [place] [phone] Social History Tobacco Use Types Packs/Day Years [...] Info) Description 03/27/2024 14:25 EST Hospital Encounter [facility] [place] [address] [place] [address] [phone] Vishal Castillo MD [address] [place] [phone] 03/27/2024 14:25 EST - 03/27/2024 17:55 EST Surgery [facility] [place] [address] [place] [address] Vishal Castillo MD [address] [place] [phone] Left Reverse Total Shoulder Arthroplasty [84125 (CPT??)] 04/08/2024 15:30 EST Post-op Visit [facility] Hand & Upper Extremity Program - [address] [place] [address] Vishal Castillo MD [address] [place] [phone] Scheduled Procedures Name Priority Associated Diagnoses Date/Ti me ARTHROPLASTY, SHOULDER, TOTAL Left rotator cuff tear arthropathy 03/27/2024 14:25 EST documented as of this encounter Procedures Procedure Name Priority Date/Time Associated Diagnosis Comments SURGICAL PATHOLOGY Routine 05/24/2005 0:00 EST documented in this encounter Results * SURGICAL PATHOLOGY (05/24/2005 0:00 EST) Pathology Report: SURGICAL PATHOLOGY REPORT Reports generated via electronic interface contain original data; however they are lacking the format of the original report. Caution should be taken when reading/interpreti ng unformatted reports. Name: ? ARETHA HILL F ? Accession #: ? [id number] ? : ? 1945 (Age: 60) ??F ? Collect Date: ? 05/24/2005 ? Location: ? [facility] ? Receive Date: ? 05/24/2005 ? Provider: ARNEL MUÑOZ MD Copy to: NINO VERA MD ? Addendum ? Date Ordered: ? 06/10/2005 ? Status: Signed Out ? Date Complete: ? 06/10/2005 ? By: Chantal Alicea ? Date Reported: ? 06/11/2005 ? Addendum Diagnosis ? Rectum, transanal disc excision: 1. ?Adenocarcinoma, moderately differentiated, invasive. ? - NO DEFINITIVE TUMOR AT DEEP MARGIN. ??SEE COMMENT. - Lateral margins negative for definitive tumor. 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 Addendum Comment ? Deeper levels through block (A4) have been obtained. ??The specimen is fragmented, which makes interpretation difficult. ??Tumor extends to ink but is not present at the cauterized tissue edges. ??Thus, the deep margin fails to show convincing involvement by tumor. ??This interpretation is supported by Dr. Muñoz' s intraoperative assessment. ??This case was reviewed by Dr. Andres Becker, who concurs with the change in diagnosis. ??(Dr. Agosto)/[facility] Document reviewed and electronically signed by: ? AMAIRANI AGOSTO MD ? Report date: 06/11/2005 By the signature above, the attending physician certifies that he/she has personally conducted a gross and/or microscopic examination of the described specimens and rendered or confirmed the above diagnosis. Final Pathologic Diagnosis: ? Rectum, transanal disc excision: 1. ?Adenocarcinoma, moderately differentiated, invasive. ? - Invasive tumor present at deep margin of resection (section A4). - Lateral margins negative for definitive tumor. ??See comment. 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 Comment: ? Section (A4) shows tumor present at an inked deep margin of resection. ??In most of the sections, the tumor appears to invade into the submucosa, but not the muscularis propria. ??Hence, an AJCC:T1. ??However, due to the presence of tumor at a deep margin, a higher stage tumor cannot be excluded. ??The lateral margins of resection appear negative, however, there is cautery and fragmentation present, making evaluation of margins somewhat problematic. In addition, there is adenomatous change (tubulovillous adenoma) present at the inked lateral margin. ??Automation/Controls Manager sections of the case were reviewed at the intradepartmental consultation conference. ??Previous biopsy report [id number] has also been reviewed. ??(Dr. Agosto)/[facility] Document reviewed and electronically signed by: AMAIRANI AGOSTO MD Report ??Date: 05/26/2005 16:26 By the signature above, the attending physician certifies that he/she has personally conducted a gross and/or microscopic examination of the described specimens and rendered or confirmed the above diagnosis. Specimen(s) Received: ? Rectal Ca Clinical History: ? Rectal cancer Gross Description: ? Received in normal saline labelled Jose and rectal cancer is an unoriented, roughly oval portion of rectum that is 5.5 x 4.2 x 0.9 cm. ??The surgical resection margin is scabrous, hewitt-pink and focally hemorrhagic with cautery artifact. ??The rectal mucosa has a central 4.2 x 3.5 x 0.8 cm hewitt-red and focally fragmented mass. ??This is surrounded by a rim of normal-appearing rectal mucosa that is smooth, glistening, shiny, and hewitt-pink on one side. ??The other aspect is scabrous and fragmented with no rim of normal-appearing rectal mucosa. ??Where the mass has a rim of normal colonic mucosa, the mass ranges from 0.3 to 0.2 cm from the cauterized surgical resection margin. ??The radial/cauterized surgical resection margin is inked black, and a portion of rectum is sectioned along the long axis into eight levels, and the non-true margins of the opposing long axis end are inked blue for orientation purposes. BLOCK STONER A1-A3 ?Level 1, perpendicular sections A4 ?Level 2 A5 ?Level 3 A6, A7 ?Level 4, bisected A8, A9 ?Level 5 A10, A11 ? Level 6 A12 ?Level 7, partially fragmented A13-A15 ? Level 8, perpendicular sections (Dr. Alcazar-SB)/kmm End of Report [facility] 05/24/2005 05/24/2005 14: 26 EST us Arnel Muñoz MD PATHOLOGY ORDERABLES Final Re sult [facility] [address] [place] [address] documented in this encounter Visit Diagnoses Not on filedocumented in this encounter Care Teams Wire Winding Machine Tender Relationship Specialty Start Date End Date Barbara Conway NP [address] [place] [address] PCP - General 08/14/08 07/22/13 documented as of this encounter
--- OUTSIDE RECORDS SUMMARY | 2024-03-18 22:16 | XMS_ITS | Encounter Summary ---
Author Organization [facility] Address [address] [place] [address] Care Team Providers Care Independent Sales Representative Name Role Phone Unavailable Primary Care Provider Unavailabl e Encounter Details Date Type Department Care Team (Latest Contact Info) Description 05/12/2006 9:24 EST - 05/12/2006 11:59 EST Hospital Encounter [facility] - [facility] [address] [place] [address] Iraida Crews MD Discharge Disposition: Auto Discharge [...] EST Hospital Encounter [facility] OR [address] [place] [address] Vishal Castillo MD [address] [place] [phone] 03/27/2024 14:25 EST - 03/27/2024 17:55 EST Surgery [facility] OR [address] [place] [address] [phone] Vishal Castillo MD [address] [place] [phone] Left Reverse Total Shoulder Arthroplasty [62367 (CPT??)] 04/08/2024 15:30 EST Post-op Visit [facility] Hand & Upper Extremity Program - [address] [place] [address] Vishal Castillo MD [address] [place] [phone] Scheduled Procedures Name Priority Associated Diagnoses Date/Ti me ARTHROPLASTY, SHOULDER, TOTAL Left rotator cuff tear arthropathy 03/27/2024 14:25 EST documented as of this encounter Visit Diagnoses Not on filedocumented in this encounter
--- OUTSIDE RECORDS SUMMARY | 2024-03-18 22:16 | XMS_ITS | Encounter Summary ---
Author Organization [facility] Address [address] [place] [address] Care Team Providers Care Tube And Rod Straightener Name Role Phone Barbara Conway INVESTMENT EXECUTIVE Primary Care Provider [phone] Encounter Details Date Type Department Care Team (Late st Contact Info) Description 05/10/2006 Results Only [facility] General Surgery - [address] [phone] Arnel Muñoz MD 111 [facility], [address] [place] [phone] Social History Tobacco Use Types Packs/Day Years [...] Info) Description 03/27/2024 14:25 EST Hospital Encounter [facility] OR [address] [place] [address] [phone] Vsihal Castillo MD [address] [place] [phone] 03/27/2024 14:25 EST - 03/27/2024 17:55 EST Surgery [facility] OR [address] [place] [address] Vishal Castillo MD [address] [place] [phone] Left Reverse Total Shoulder Arthroplasty [60755 (CPT??)] 04/08/2024 15:30 EST Post-op Visit [facility] Hand & Upper Extremity Program - [address] [place] [address] Vishal Castillo MD [address] [place] [phone] Scheduled Procedures Name Priority Associated Diagnoses Date/Ti me ARTHROPLASTY, SHOULDER, TOTAL Left rotator cuff tear arthropathy 03/27/2024 14:25 EST documented as of this encounter Procedures Procedure Name Priority Date/Time Associated Diagnosis Comments SURGICAL PATHOLOGY Routine 05/10/2006 0:00 EST documented in this encounter Results * SURGICAL PATHOLOGY (05/10/2006 0:00 EST) Pathology Report: SURGICAL PATHOLOGY REPORT Reports generated via electronic interface contain original data; however they are lacking the format of the original report. Caution should be taken when reading/interpreti ng unformatted reports. Name: ? ARETHA HILL F ? Accession #: ? [id number] ? : ? 1945 (Age: 61) ??F ? Collect Date: ? 05/10/2006 ? Location: ? [facility] ? Receive Date: ? 05/10/2006 ? Provider: ARNEL MUÑOZ MD Copy to: ANGEL REESE MD ? Final Pathologic Diagnosis: ? Rectum, polypectomy: - Fragments of tubulovillous adenoma. Document reviewed and electronically signed by: Andres Becker MD Report ??Date: 05/11/2006 16:53 By the signature above, the attending physician certifies that he/she has personally conducted a gross and/or microscopic examination of the described specimens and rendered or confirmed the above diagnosis. Specimen(s) Received: ? Rectal polyp Clinical History: ? H/O polyp and rectal cancer Gross Description: ? Received in Hollande's fixative labelled Jose and rectal polyp are six hewitt-pink focally hemorrhagic polypoids of soft tissue ranging from 0.4 x 0.2 x 0.1 to 1.0 x 0.6 x 0.5 cm. ??The four smaller polypoid portions are submitted intact as (A1) and the two larger are each bisected and entirely submitted as (A2) and (A3), respectively. ??(Rajesh Solomon)/[facility] End of Report [facility] 05/10/2006 05/10/2006 10: 35 EST us Arnel Muñoz MD PATHOLOGY ORDERABLES Final Re sult [facility] [address] [place] [address] documented in this encounter Visit Diagnoses Not on filedocumented in this encounter Care Teams Tube And Rod Straightener Relationship Specialty Start Date End Date Barbara Conway NP [address] [place] [address] PCP - General 08/14/08 07/22/13 documented as of this encounter
--- OUTSIDE RECORDS SUMMARY | 2024-03-18 22:16 | XMS_ITS | Encounter Summary ---
Author Organization Health system Address [address] [place] [address] Care Team Providers Care Enchilada Maker Name Role Phone Unavailable Primary Care Provider Unavailabl e Encounter Details Date Type Department Care Team (Late st Contact Info) Description 07/22/2005 8:36 EST - 07/22/2005 11:59 EST Hospital Encounter [facility] [address] [place] [address] Arnel Oliva MD 111 [facility], [address] [place] [phone] Discharge Disposition: Auto Discharge Social History Tobacco [...] Cap Take by mouth daily. 04/30/1999 10/24/2019 documented as of this encounter Discharge Disposition Disposition Code Departure Means Destination Auto Discharge documented in this encounter Plan of Treatment Upcoming Encounters Date Type Department Care Team (Latest Contact Info) Description 03/27/2024 14:[address] [facility] [place] [address] [place] [phone] Vishal Castillo MD [address] [place] [phone] 03/27/2024 14:25 EST - 03/27/2024 17:[address] [facility] [place] [address] [place], [place] [phone] Vishal Castillo MD [address] [place] [phone] Left Reverse Total Shoulder Arthroplasty [98027 (CPT??)] 04/08/2024 15:30 EST Post-op Visit [facility] Hand & Upper Extremity Program - [address] [place] [address] Vishal Castillo MD [address] [place] [phone] Scheduled Procedures Name Priority Associated Diagnoses Date/Ti me ARTHROPLASTY, SHOULDER, TOTAL Left rotator cuff tear arthropathy 03/27/2024 14:25 EST documented as of this encounter Procedures Procedure Name Priority Date/Time Associated Diagnosis Comments CEA Routine 07/22/2005 9:45 EST documented in this encounter Results * CEA (07/22/2005 9:45 EST) CEA 1.1 ng/ml [facility] Comment: % Distribution of CEA (ng/ml) 0-2.5 in 98.2% of non-smokers and 87.3% of smokers 2.6-5.0 in 1.8% of non-smokers and 8.0% of smokers 5.1-10.1 in 4.7% of smokers Serum CEA concentration should not be interpreted as absolute evidence for the presence or absence of malignant disease. Assayed utilizing Seedfuse chemiluminescent technology. Values obtained by using different assay methods cannot be used interchangeably. 07/22/2005 9:45 EST 07/22/2005 10:10 EST us Arnel Oliva MD CHEMISTRY & BLOOD GAS ORDERAB LES Final Result [facility] [address] [place] [address] documented in this encounter Visit Diagnoses Not on filedocumented in this encounter
--- OUTSIDE RECORDS SUMMARY | 2024-03-18 22:16 | XMS_ITS | Encounter Summary ---
Author Organization [facility] Address [address] [place] [address] Care Team Providers Care Terrazzo Journeyman Name Role Phone Unavailable Primary Care Provider Unavailabl e Encounter Details Date Type Department Care Team (Late st Contact Info) Description 05/19/2006 9:03 EST Hospital Encounter [facility] [place] [place] [address] [place] [address] Arnel Oliva MD [address] [place] [address], [address] [place] [phone] Social History Tobacco Use Types Packs/Day Years [...] Info) Description 03/27/2024 14:25 EST Hospital Encounter [facility] OR [address] [place] [address] Vishal Castillo MD [address] [place] [phone] 03/27/2024 14:25 EST - 03/27/2024 17:55 EST Surgery [facility] OR [address] [place] [address] Vishal Castillo MD [address] [place] [phone] Left Reverse Total Shoulder Arthroplasty [12435 (CPT??)] 04/08/2024 15:30 EST Post-op Visit [facility] Hand & Upper Extremity Program - [address] [address] Vishal Castillo MD [address] [place] [phone] Scheduled Procedures Name Priority Associated Diagnoses Date/Ti me ARTHROPLASTY, SHOULDER, TOTAL Left rotator cuff tear arthropathy 03/27/2024 14:25 EST documented as of this encounter Visit Diagnoses Not on filedocumented in this encounter Additional Health Concerns Infection Onset Date Last Indicated Resolved Time R/O COVID-19 10/24/2019 10/24/2019 10/28/2019 10:3 2 EDT documented as of this encounter
--- OUTSIDE RECORDS SUMMARY | 2024-03-18 22:16 | XMS_ITS | Encounter Summary ---
Author Organization [facility] Address [address] [place] [address] Care Team Providers Care Carding Machine Operator Name Role Phone Unavailable Primary Care Provider Unavailabl e Encounter Details Date Type Department Care Team (Late st Contact Info) Description 05/24/2005 14:40 EST - 05/25/2005 11:59 EST Hospital Encounter [facility] Cardiothoracic Surgery Unit [address] [place] [address] Arnel Oliva MD [address] [facility], [facility] [address] [place] [address] Discharge Disposition: Home or Self [...] or Self Care documented in this encounter OR Notes * OR Surgeon - Arnel Oliva MD - 05/24/2005 0000 EST PROCEDURE REPORT PT TYPE: IP PT LOC: [id number] SERVICE DATE: 05/24/2005 SURGEON: Miguel Angel Oliva MD, Skyelr Oliva MD, Skyler Oliva MD, FACS FOOD COUNTER WORKER: Johnnie Nguyen MD PREOPERATIVE DIAGNOSIS: T1 rectal cancer. POSTOPERATIVE DIAGNOSIS: T1 rectal cancer. PROCEDURE: Transanal endoscopic microsurgery. ANESTHESIA: General endotracheal. INDICATIONS: The patient is a female with a T1 rectal cancer by ultrasound, scheduled for TEM. FINDINGS: 1. 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 2. Gross negative margins. 3. Penetration into the vaginal septum during the procedure. 4. No intraperitoneal entry. 5. Full thickness excision with primary closure. 6. Distal margin 1-cm from the dentate line. 7. Proximal margin 6-cm from the dentate line. 8. Operative time was an hour and 35 minutes. NARRATIVE: After satisfactory general endotracheal anesthesia, the patient was placed in the left lateral decubitus position and prepped and draped in standard fashio The anus was gently dilated. TheTEM equipment was setup and placed in. The lesion was identified. Local anesthetic was infiltrated underneath it. Then 5-mm margins were marked with electrocautery distally. The lesion was then excised from distal to proximal and from posterior to anterior. There was a small, less than 1-cm hole in the anovaginal septum. This was identified. The dissection continued just anterior this plane. The anovaginal septum was very narrow and there was essentially no perirectal fat between the rectum and the vaginal septum. The dissection wascontinued carefully away from the septum until the lesion was nearly completely excised. One tiny tail was left. This was left on purpose to pull the proximal margin down prior to closure. It was felt that since this was a distal lesion, transanal closure would be best. The TEM equipment was then removed. An extra-large Hill-Sierra retractor was placed in and the lesion identified. It was prolapsed through the rectum. Two separate 2-0 Vicryls were placed proximal to this and then the lesion was excised easily. The opening in the vaginal septum identified and it was closed with four separate interrupted 2-0 Vicryl sutures. A finger was placed in the vagina, indicating and confirming that this was completely closed. Once this was completed, the area was inspected. There was no evidence of any bleeding. The proximal margin was brought in the shape of a tongueflap, similar to a routine closure of an anovaginal fistula. This was then closed with interrupted 2-0 Vicryls from the anterior aspect around to the distal aspect and from the posterior aspect around to the distal aspect as well. The area was inspected. There was no tension on the flap whatsoever.It was bleeding freely. Athe completion of this, the flaps sat nicely over the repair. The distal portion of the closure was to the dentate line. After the completion of this, the rigid sigmoidoscopeplaced in to ensure that there was no occlusion of the lumen. This was, in fact, correct. The lumenwas wide open. Marcaine was infiltrated into the sphincters. The defect was palpated. There was no residual anovaginal fistula and the flaps set nicely, with no defect. Needle and sponge counts were correct. ESTIMATED BLOOD LOSS: Less than 100 cc. FLUID REPLACEMENT: 3,800 cc. DRAINS: None. COMPLICATIONS: None. Signed by Arnel Oliva MD, FACS 06/01/2005 16:15 Miguel Angel Oliva MD, [id number] A Cataldo, MD, FACS Arnel Oliva MD, FACS [phone] - Arnel Oliva MD, FACS P - pa Job ID: [id number] Document ID: [id number] cc: MD Arnel Antunez MD, FACS MD Ab Silva MD, FACS Cancer Data Registry Papo Godoy MD documented in this encounter Plan of Treatment Upcoming Encounters Date Type Department Care Team (Latest Contact Info) Description 03/27/2024 14:25 EST Hospital Encounter [facility] OR [address] [place] [address] Vishal Castillo MD [address] [place] [address] 03/27/2024 14:25 EST - 03/27/2024 17:55 EST Surgery [facility] OR [address], [place] [address] Vishal Castillo MD [address] [place] [phone] Left Reverse Total Shoulder Arthroplasty [70904 (CPT??)] 04/08/2024 15:30 EST Post-op Visit [facility] Hand & Upper Extremity Program - [address] [address] Vishal Castillo MD [address] [place] [phone] Scheduled Procedures Name Priority Associated Diagnoses Date/Ti me ARTHROPLASTY, SHOULDER, TOTAL Left rotator cuff tear arthropathy 03/27/2024 14:25 EST documented as of this encounter Procedures Procedure Name Priority Date/Time Associated Diagnosis Comments CK Routine 05/26/2005 4:00 EST CK Routine 05/25/2005 20:00 EST TROPONIN I Routine 05/25/2005 14:41 EST COMPLETE BLOOD COUNT AND DIFFERENTIAL Routine 05/25/2005 14:41 EST CK MB WITH TOTAL CK Routine 05/25/2005 1 4:41 EST GLUCOSE, GLUCOMETER Routine 05/25/2005 1 2:12 EST CK Routine 05/25/2005 12:00 EST GLUCOSE, GLUCOMETER Routine 05/25/2005 6 :28 EST HEMATOCRIT Routine 05/25/2005 6:00 EST HOLD SST Routine 05/25/2005 3:36 EST TROPONIN I Routine 05/25/2005 3:36 EST CK MB WITH TOTAL CK Routine 05/25/2005 3 :36 EST CK Routine 05/25/2005 3:27 EST PTT Routine 05/25/2005 1:25 EST COMPLETE BLOOD COUNT AND DIFFERENTIAL Routine 05/25/2005 1:25 EST GLUCOSE, GLUCOMETER Routine 05/25/2005 0 :47 EST GLUCOSE, GLUCOMETER Routine 05/24/2005 1 8:22 EST PTT Routine 05/24/2005 13:06 EST PROTIME Routine 05/24/2005 13:06 EST GLUCOSE, GLUCOMETER Routine 05/24/2005 9 :02 EST documented in this encounter Results * CK (05/26/2005 4:00 EST) CK 30 - 135 U/L [facility] 05/26/2005 4:00 EST 05/26/2005 3:02 EST us Arnel Oliva MD CHEMISTRY & BLOOD GAS ORDERAB LES Final Result Performing Organization Address [facility] de Phone Number [facility] [address] [place] [address] * CK (05/25/2005 20:00 EST) CK 30 - 135 U/L [facility] 05/25/2005 20:0 0 EST 05/25/2005 19:48 EST us Arnel Oliva MD CHEMISTRY & BLOOD GAS ORDERAB LES Final Result Performing Organization Address [facility] Co de Phone Number [facility] [address] [place] [address] * TROPONIN I (05/25/2005 14:41 EST) [facility] Troponin I pre 2011 <0.15 ng/ml [facility] Comment: normal: less than 0.15 indeterminate: 0.15-1.50 positive: greater than 1.50 05/25/2005 14:4 1 EST 05/25/2005 14:42 EST Arnel Oliva MD CHEMISTRY & BLOOD GAS ORDERAB LES Final Result Performing Organization Address [facility] de Phone Number [facility] [address] [place] [address] * CK MB WITH TOTAL CK (05/25/2005 14:41 EST) [facility] CK 90 30 - 135 U/L [facility] MB 0.3 0 - 5.0 ng/ml [facility] CK-MB Index Not calculated , normal MB. 0 - 2.5 [facility] 05/25/2005 14:4 1 EST 05/25/2005 14:42 EST us Arnel Oliva MD CHEMISTRY & BLOOD GAS ORDERAB LES Final Result Performing Organization Address [facility] Phone Number [facility] [address] [place] [address] * (ABNORMAL) HEMAGRAM AND DIFFERENTIAL (05/25/2005 14:41 EST) [facility] WBC 11.56 4.0 - 12.4 K/cmm [facility] RBC 3.43(L) 3.86 - 5.04 M/cmm [facility] Hemoglobin 9.6(L) 11.6 - 15.2 gm/dl [facility] HCT 29.0(L) 34.9 - 44.4 % [facility] MCV 84 81 - 98 fl [facility] MCH 28.1 26.7 - 33.3 pg [facility] MCHC 33.2 32.1 - 35.9 gm/dl [facility] PLT 305 141 - 320 K/cmm [facility] RDW-CV 14.5 11.7 - 14.6 % [facility] % Neutrophils 80.1(H) 45.5 - 79.7 % [facility] % Lymphocytes 13.0(L) 15.0 - 46.8 % [facility] % Monocytes 6.4 1.8 - 12.0 % [facility] % Eosinophils 0.1(L) 0.6 - 6.9 % [facility] % Basophils 0.4 0.2 - 1.4 % [facility] ABS Neutrophils 9.26(H) 2.20 - 8.85 K/cmm [facility] ABS Lymphs 1.50 1.09 - 3.30 K/cmm [facility] ABS Monocytes 0.74 0.1 - 0.8 K/cmm [facility] ABS Eosinophils 0.02(L) 0.03 - 0.61 K/cmm [facility] ABS Basophils 0.04 0.01 - 0.11 K/cmm [facility] Type of Diff: Automated [facility] 05/25/2005 14:4 1 EST 05/25/2005 14:42 EST us Arnel Oliva MD PACKAGES & DNA PROBE ORDERABL ES Final Result Performing Organization Address City/[facility]/ZIP Co de Phone Number [facility] [address] [place] [address] * (ABNORMAL) GLUCOSE, GLUCOMETER (05/25/2005 12:12 EST) Glucose, Fingerstick 135(H) 70 - 110 mg/dl [facility] Talent Management Specialist ID [id number] Test Performed by Nursing Services [facility] 05/25/2005 12:1 2 EST 05/25/2005 21:18 EST us Arnel Oliva MD CHEMISTRY & BLOOD GAS ORDERAB LES Final Result Performing Organization Address City/[facility]/ZIP Co de Phone Number [facility] [address] [place] [address] * CK (05/25/2005 12:00 EST) CK 30 - 135 U/L [facility] 05/25/2005 12:0 0 EST 05/25/2005 12:22 EST us Arnel Oliva MD CHEMISTRY & BLOOD GAS ORDERAB LES Final Result Performing Organization Address [facility] de Phone Number [facility] [address] [place] [address] * (ABNORMAL) GLUCOSE, GLUCOMETER (05/25/2005 6:28 EST) Pathologist [facility] Glucose, Fingerstick 148(H) 70 - 110 mg/dl [facility] Talent Management Specialist ID [id number] Test Performed by Nursing Services [facility] 05/25/2005 6:28 EST 05/25/2005 21:18 EST us Arnel Oliva MD CHEMISTRY & BLOOD GAS ORDERAB LES Final Result Performing Organization Address [facility] Phone Number [facility] [address] [place] [address] * HEMATOCRIT (05/25/2005 6:00 EST) [facility] HCT 34.9 - 44.4 % [facility] 05/25/2005 6:00 EST 05/25/2005 14:30 EST us Arnel Oliva MD HEMATOLOGY & PF4 ORDERABLES F inal Result Performing Organization Address [facility] Phone Number [facility] [address] [place] [address] * TROPONIN I (05/25/2005 3:36 EST) [facility] Troponin I pre 2011 <0.15 ng/ml [facility] Comment: normal: less than 0.15 indeterminate: 0.15-1.50 positive: greater than 1.50 05/25/2005 3:36 EST 05/25/2005 3:41 EST us Arnel Oliva MD CHEMISTRY & BLOOD GAS ORDERAB LES Final Result [facility] [address] [place] [address] * HOLD SST (05/25/2005 3:36 EST) Hold SST Hold for further testing. Specimen will be held for 30 days. [facility] 05/25/2005 3:36 EST 05/25/2005 3:41 EST Arnel Oliva MD LAB INFO SERVICE AND SUPPORT & PHONE RESULT Final Result Performing Organization Address [facility] Co de Phone Number [facility] [address] [place] [address] * CK MB WITH TOTAL CK (05/25/2005 3:36 EST) CK 80 30 - 135 U/L [facility] MB 0.4 0 - 5.0 ng/ml [facility] CK-MB Index Not calculated , normal MB. 0 - 2.5 [facility] 05/25/2005 3:36 EST 05/25/2005 3:41 EST Arnel Oliva MD CHEMISTRY & BLOOD GAS ORDERAB LES Final Result Performing Organization Address [facility] Co de Phone Number [facility] [address] [place] [address] * CK (05/25/2005 3:27 EST) CK 30 - 135 U/L [facility] 05/25/2005 3:27 EST 05/26/2005 3:01 EST Arnel Oliva MD CHEMISTRY & BLOOD GAS ORDERAB LES Final Result Performing Organization Address [facility] Co de Phone Number [facility] [address] [place] [address] * PTT (05/25/2005 1:25 EST) PTT 25 20 - 35 secs [facility] Comment:Therapeutic Heparin range: 70-105 seconds 05/25/2005 1:25 EST 05/25/2005 1:31 EST us Arnel Oliva MD HEMATOLOGY & PF4 ORDERABLES F inal Result [facility] [address] [place] [address] * (ABNORMAL) HEMAGRAM AND DIFFERENTIAL (05/25/2005 1:25 EST) WBC 10.38 4.0 - 12.4 K/cmm [facility] RBC 2.61(L) 3.86 - 5.04 M/cmm [facility] Hemoglobin 7.2(L) 11.6 - 15.2 gm/dl [facility] HCT 21.4(L) 34.9 - 44.4 % [facility] MCV 82 81 - 98 fl [facility] MCH 27.7 26.7 - 33.3 pg [facility] MCHC 33.9 32.1 - 35.9 gm/dl [facility] PLT 298 141 - 320 K/cmm [facility] RDW-CV 14.4 11.7 - 14.6 % [facility] % Neutrophils 81.1(H) 45.5 - 79.7 % [facility] % Lymphocytes 12.0(L) 15.0 - 46.8 % [facility] % Monocytes 6.2 1.8 - 12.0 % [facility] % Eosinophils 0.1(L) 0.6 - 6.9 % [facility] % Basophils 0.6 0.2 - 1.4 % [facility] ABS Neutrophils 8.42 2.20 - 8.85 K/cmm [facility] ABS Lymphs 1.24 1.09 - 3.30 K/cmm [facility] ABS Monocytes 0.64 0.1 - 0.8 K/cmm [facility] ABS Eosinophils 0.01(L) 0.03 - 0.61 K/cmm [facility] ABS Basophils 0.06 0.01 - 0.11 K/cmm [facility] Type of Diff: Automated [facility] 05/25/2005 1:25 EST 05/25/2005 1:31 EST us Arnel Oliva MD PACKAGES & DNA PROBE ORDERABL ES Final Result Performing Organization Address [facility] Phone Number [facility] [address] [place] [address] * (ABNORMAL) GLUCOSE, GLUCOMETER (05/25/2005 0:47 EST) Glucose, Fingerstick 168(H) 70 - 110 mg/dl [facility] Talent Management Specialist ID [id number] Test Performed by Nursing Services [facility] 05/25/2005 0:47 EST 05/25/2005 6:24 EST us Anrel Oliva MD CHEMISTRY & BLOOD GAS ORDERAB LES Final Result Performing Organization Address [facility] Phone Number [facility] [address] [place] [address] * (ABNORMAL) GLUCOSE, GLUCOMETER (05/24/2005 18:22 EST) Glucose, Fingerstick 213(H) 70 - 110 mg/dl [facility] Talent Management Specialist ID [id number] Test Performed by Nursing Services [facility] 05/24/2005 18:2 2 EST 05/25/2005 17:38 EST us Arnel Oliva MD CHEMISTRY & BLOOD GAS ORDERAB LES Final Result Performing Organization Address [facility] Phone Number [facility] [address] [place] [address] * PTT (05/24/2005 13:06 EST) PTT 26 20 - 35 secs [facility] Comment:Therapeutic Heparin range: 70-105 seconds 05/24/2005 13:0 6 EST 05/24/2005 13:07 EST us Arnel Oliva MD HEMATOLOGY & PF4 ORDERABLES F inal Result Performing Organization Address [facility] Phone Number [facility] [address] [place] [address] * PROTIME (05/24/2005 13:06 EST) Pro Time 14.7 12.0 - 15.0 secs [facility] I.N.R. 1.1 0.9 - 1.1 Ratio [facility] Comment: Moderate Intensity Coumadin INR = 2.0-3.0 Adjustments in anticoagulant therapy dose should be based upon the INR and NOT the Pro Time. 05/24/2005 13:0 6 EST 05/24/2005 13:07 EST Arnel Oliva MD HEMATOLOGY & PF4 ORDERABLES F inal Result Performing Organization Address [facility] Co de Phone Number [facility] [address] [place] [address] * (ABNORMAL) GLUCOSE, GLUCOMETER (05/24/2005 9:02 EST) Glucose, Fingerstick 139(H) 70 - 110 mg/dl [facility] Talent Management Specialist ID [id number] Test Performed by Nursing Services [facility] 05/24/2005 9:02 EST 05/25/2005 5:06 EST us Arnel Oliva MD CHEMISTRY & BLOOD GAS ORDERAB LES Final Result Performing Organization Address [facility] Co de Phone Number [facility] [address] [place] [address] documented in this encounter Visit Diagnoses Not on filedocumented in this encounter
--- OUTSIDE RECORDS SUMMARY | 2024-03-18 22:16 | XMS_ITS | Encounter Summary ---
Author Organization [facility] Address [address] [place] [address] Care Team Providers Care Carding Supervisor Name Role Phone Barbara Conway SHANK THREADER Primary Care Provider [phone] Encounter Details Date Type Department Care Team (Late st Contact Info) Description 08/19/2005 Results Only [facility] Interventional Rad Clinic - [address] [address] Liz Jones MD [address] [place] [address] Social History Tobacco Use Types Packs/Day Years [...] Description 03/27/2024 14:25 EST Hospital Encounter [facility] OR [address] [place] [phone] Vishal Castillo MD [address] [place] [address] 03/27/2024 14:25 EST - 03/27/2024 17:55 EST Surgery [facility] OR [address] [place] [address] Vishal Castillo MD [address] [place] [phone] Left Reverse Total Shoulder Arthroplasty [62904 (CPT??)] 04/08/2024 15:30 EST Post-op Visit [facility] Hand & Upper Extremity Program - [address] [place] [address] Vishal Castillo MD [address] [place] [address] Scheduled Procedures Name Priority Associated Diagnoses Date/Ti me ARTHROPLASTY, SHOULDER, TOTAL Left rotator cuff tear arthropathy 03/27/2024 14:25 EST documented as of this encounter Procedures Procedure Name Priority Date/Time Associated Diagnosis Comments CYTOPATHOLOGY Routine 08/19/2005 0:00 EDT SURGICAL PATHOLOGY Routine 08/19/2005 0:00 EDT documented in this encounter Results * CYTOPATHOLOGY (08/19/2005 0:00 EDT) Pathology Report: CYTOPATHOLOGY REPORT Reports generated via electronic interface contain original data; however they are lacking the format of the original report. Caution should be taken when reading/interpreting unformatted reports. Name: ? BRYCE HILL ? Accession #: ? [id number] : ? 1945 (Age: 60) ??F ?Collect Date: ? 08/19/2005 Location: ? RAD ? Receive Date: ? 08/19/2005 Provider: ? NIKITA MUÑOZ MD Copy to: ?LOUIS VERDUGO MD ? Fine Needle Aspiration/Core Biopsy (Assisted) ? Radiology Department, [facility] ([facility]) ? CYTOLOGIC DIAGNOSIS: ? Lung, left lower lobe lesion, fine needle aspiration: 1. ?Negative for malignant cells. 2. ?Reactive bronchial cells and lymphocytes. ??See comment. ? COMMENT: ? To rule out a remote possibility of Langerhans histiocytosis, the following immunohistochemical stains were performed: ??CD1a (010, Dako) negative, S-100 (polyclonal, Dako) negative. ??These stains exclude the above possibility. ??(Dr. Hwang)/maude ? NOTE: ??One or more of the reagents used in immunohistochemical testing in this case may not have been cleared or approved by the U.S. Food and Drug Administration (FDA). ??The FDA has determined that such clearance or approval is not necessary. ??These tests are used for clinical purposes. ??They should not be regarded as investigational or for research. ??These reagents' ??performance characteristics have been determined by [facility]. ??This laboratory is certified under the Clinical Laboratory Improvement Amendments of 1988 (CLIA-88) as qualified to perform high complexity clinical laboratory testing. Document reviewed and electronically signed by: ? OANH HWANG MD Report Date: ??08/24/2005 17:16 By the signature above, the attending physician certifies that he/she has personally conducted a gross and/or microscopic examination of the described specimens and rendered or confirmed the above diagnosis. Specimen Type: ? Lung, Fine Needle Aspiration, LLL Clinical History: ? T1 rectal Ca and multiple lung nodules; CT-FNA LLL ??7.0 mm nodule; R/O mets/granulomatous disease; clinical diagnosis code: ??786.6 ? Rapid Interpretation: ? Pass #1, 2: ??Negative malignant cells, reactive lymphocytes Pass #3, 4: ??Negative malignant cells, rare reactive lymphocytes Pass #5, 6: ??Negative malignant cells, rare reactive lymphocytes Pass #7: ??Negative malignant cells, rare reactive lymphocytes (Dr. Allie Maguire; Dr. Sera Hwang; 08/19/05) ?? Gross Description: ? 15 fixed prepared slides, air dried prepared slides, and 1 tube of Cytolyt were received and processed by selective cellular enhancement technique. ? End of Report [facility] 08/19/2005 08/19/2005 12: 12 EDT us Nikita Muñoz MD PATHOLOGY ORDERABLES Final Re sult [facility] [address] [place] [address] * SURGICAL PATHOLOGY (08/19/2005 0:00 EDT) Pathology Report: SURGICAL PATHOLOGY REPORT Reports generated via electronic interface contain original data; however they are lacking the format of the original report. Caution should be taken when reading/interpreti ng unformatted reports. Name: ? BRYCE HILL ? Accession #: ? [id number] ? : ? 1945 (Age: 60) ??F ? Collect Date: ? 08/19/2005 ? Location: ? RAD ? Receive Date: ? 08/19/2005 ? Provider: LIZ JONES MD Copy to: NIKITA REESE MD ? Final Pathologic Diagnosis: ? Lung, left lower lobe, biopsy: - Minute lung fragment inadequate for full evaluation. Document reviewed and electronically signed by: OANH HWANG MD Report ??Date: 08/23/2005 16:48 By the signature above, the attending physician certifies that he/she has personally conducted a gross and/or microscopic examination of the described specimens and rendered or confirmed the above diagnosis. Specimen(s) Received: ? A. ??20 gauge core x1 B. ??7 mm LLL nodule Clinical History: ? 7 mm left lower lobe nodule. Bx of colon cancer; R/O neoplasm; clinical diagnosis code: 518.89 Gross Description: ? Received in formalin labelled Liz is a 0.1 by less than 0.1 by less than 0.1 cm translucent scant fragment of tissue entirely submitted in one cassette. (Linda Carrillo)/mpl ? End of Report [facility] 08/19/2005 08/19/2005 12: 26 EDT us Liz Jones MD PATHOLOGY ORDERABLES Final Result Performing Organization Address City/State/[facility] Co de Phone Number [facility] [address] [place] [address] documented in this encounter Visit Diagnoses Not on filedocumented in this encounter Care Teams Carding Supervisor Relationship Specialty Start Date End Date Barbara Conway NP [address] [place] [address] PCP - General 08/14/08 07/22/13 documented as of this encounter
--- OUTSIDE RECORDS SUMMARY | 2024-03-18 22:16 | XMS_ITS | Encounter Summary ---
Author Organization [facility] Address [address] [place] [address] Care Team Providers Care Communication Professor Name Role Phone Unavailable Primary Care Provider Unavailabl e Encounter Details Date Type Department Care Team (Late st Contact Info) Description 07/01/2005 9:15 EST Hospital Encounter [facility] [address] [place] [address] Arnel Oliva MD [address] [place] [address], [address] [place] [id number] Social History Tobacco Use Types Packs/Day Years [...] Info) Description 03/27/2024 14:25 EST Hospital Encounter [facility] OR [address] [place] [address] Vishal Castillo MD [address] [place] [phone] 03/27/2024 14:25 EST - 03/27/2024 17:55 EST Surgery [facility] OR [address] [place] [address] Vishal Castillo MD [address] [place] [phone] Left Reverse Total Shoulder Arthroplasty [23951 (CPT??)] 04/08/2024 15:30 EST Post-op Visit [facility] Hand & Upper Extremity Program - [address] [address] Vishal Castillo MD [address] [place] [phone] Scheduled Procedures Name Priority Associated Diagnoses Date/Ti me ARTHROPLASTY, SHOULDER, TOTAL Left rotator cuff tear arthropathy 03/27/2024 14:25 EST documented as of this encounter Visit Diagnoses Not on filedocumented in this encounter Additional Health Concerns Infection Onset Date Last Indicated Resolved Time R/O COVID-19 10/24/2019 10/24/2019 10/28/2019 10:3 2 EDT documented as of this encounter
--- OUTSIDE RECORDS SUMMARY | 2024-03-18 22:16 | XMS_ITS | Encounter Summary ---
Author Organization [facility] Address [address] [place] [address] Care Team Providers Care Automobile Accessories Salesperson Name Role Phone Barbara Conway MARKETING INTELLIGENCE ANALYST Primary Care Provider [phone] Encounter Details Date Type Department Care Team (Late st Contact Info) Description 06/10/2005 Before PRISM Converted Visit (Maple) [facility] - Maple conversion [address] [place], [place] [address] [phone] Arnel Oliva MD [address] [facility], [address] [place] [address] Social History Tobacco Use Types Packs/Day Years Used Date Smoking Tobacco: Never Assessed Comments Unknown Sex and Gender Information Value Date Recorded Sex Assigned at Female 03/08/2024 18:30 EST Legal Sex Female 18:30 EST Gender Identity Female 05/28/2019 8:56 EST Sexual Orientation Not on file documented as of this encounter Progress Notes * Arnel Oliva MD - 04/17/2009 0251 EST DIVISION OF GENERAL SURGERY PROGRESS/FOLLOWUP NOTE - 06/10/2005 The patient is s/p TEM for T1 rectal cancer. The operation was complicated by a small hole in the posterior wall of the vagina. This was repaired primarily without any difficulty. Pathology revealed T1 disease. Originally, review of the pathology revealed questionable margins. The pathology was further reviewed with myself, Dr. Andres Becker and Dr. Ekta Brar The final determination was that the margins in fact were negative, and inked portion of the specimen was likely secondary to fractionation of the specimen after surgery but before pathologic evaluation. It is difficult to imagine that a T1 lesion could have a positive deep margin with a full-thicknessexcision, particularly since the excision extended into the vaginal septum. The patient had some clear vaginal drainage which responded to Diflucan. No evidence of stool per vagina or air per vagina. Some loose stool secondary to Colacewith occasional rare soiling. Physical examination: Perineal examination reveals no evidence of any infection or dermatitis. Digital examination is not performed. The vaginal orifice shows no evidence of any stool. Impression: Doing well s/p TEM propagated by small hole in posterior aspect of the vagina. Pathology T1 margins negative. The uncertain nature of the margins based on a prior report was discussed with the patient at length. I informed her that there is a very small chance there could be residual carcinoma within the rectum. We discussedthree options. One is careful observation, Second is chemoradiation. Number three is APR with posterior vaginectomy. The patient adamantly wishes to avoid APR with colostomy. She and I both agree that observation is likelythe best choice. We will re-examine her in two weeks, after she has had further chance to think about this. If she is healing well, with no complications, we may potentially consider at least anevaluationby Radiation Therapy and Oncology because of the very small possibility that the margin was in fact positive. She is very happy with this and happy with the results. She will follow up in two weeks. Signed by Arnel Oliva MD, FACS 07/04/2005 13:29 Miguel Angel Oliva MD, [phone] A Cataldo, MD, FACS Arnel Oliva MD, FACS [phone] D: - Arnel Oliva MD, FACS A - glt Job ID: Document ID: [id number] cc: MD Ab Silva MD, FACS Papo Godoy MD documented in this encounter Plan of Treatment Upcoming Encounters Date Type Department Care Team (Latest Contact Info) Description 03/27/2024 14:25 EST Hospital Encounter [facility] OR [address] [place] [phone] Vishal Castillo MD [address] [place] [phone] 03/27/2024 14:25 EST - 03/27/2024 17:55 EST Surgery [facility] OR [address] [place] [phone] Vishal Castillo MD [address] [place] [phone] Left Reverse Total Shoulder Arthroplasty [80932 (CPT??)] 04/08/2024 15:30 EST Post-op Visit [facility] Hand & Upper Extremity Program - [address] [address] Vishal Castillo MD [address] [place] [phone] Scheduled Procedures Name Priority Associated Diagnoses Date/Ti me ARTHROPLASTY, SHOULDER, TOTAL Left rotator cuff tear arthropathy 03/27/2024 14:25 EST documented as of this encounter Visit Diagnoses Not on filedocumented in this encounter Care Teams Automobile Accessories Salesperson Relationship Specialty Start Date End Date Barbara Conway NP [address] [facility] [place], [place] [id number] PCP - General 08/14/08 07/22/13 documented as of this encounter
--- OUTSIDE RECORDS SUMMARY | 2024-03-18 22:16 | XMS_ITS | Encounter Summary ---
Author Organization [facility] Address [address] [place] [address] Care Team Providers Care Driver Lifter Of Sanitation Truck Name Role Phone Unavailable Primary Care Provider Unavailabl e Encounter Details Date Type Department Care Team (Latest Contact Info) Description 01/27/2006 11:44 EDT - 01/27/2006 11:59 EDT Hospital Encounter [facility] - Other [address] [place] [address] Barbara Conway, EDUCATIONAL SPECIALIST [address] [place] [address] Discharge Disposition: Auto Discharge Social History Tobacco [...] Info) Description 03/27/2024 14:25 EST Hospital Encounter [facility] OR [address] [place], [place] [phone] Vishal Castillo MD [address] [place] [phone] 03/27/2024 14:25 EST - 03/27/2024 17:55 EST Surgery [facility] OR [address] [place], [place] [phone] Vishal Castillo MD [address] [place] [phone] Left Reverse Total Shoulder Arthroplasty [00396 (CPT??)] 04/08/2024 15:30 EST Post-op Visit [facility] Hand & Upper Extremity Program - [address] [address] Vishal Castillo MD [address] [place] [phone] Scheduled Procedures Name Priority Associated Diagnoses Date/Ti me ARTHROPLASTY, SHOULDER, TOTAL Left rotator cuff tear arthropathy 03/27/2024 14:25 EST documented as of this encounter Procedures Procedure Name Priority Date/Time Associated Diagnosis Comments CK Routine 01/27/2006 20:06 EDT HEPATIC FUNCTION PANEL (ALB,ALK PHOS,ALT,AST,DBIL,T OT RICK,TOT PROT) Routine 01/27/2006 20:06 EDT documented in this encounter Results * LIVER FUNCTION TESTS (01/27/2006 20:06 EDT) Albumin 4.2 3.4 - 4.9 g/dl [facility] Comment:Slight hemolysis Total Protein 6.8 6.5 - 8.3 g/dl [facility] Comment:Slight hemolysis Total Alkaline Phosphatase 63 38 - 126 U/L [facility] Comment:Slight hemolysis ALT 26 9 - 52 U/L [facility] Comment:Slight hemolysis AST 33 15 - 46 U/L [facility] Comment:Slight hemolysis Unconjugated Bilirubin 0.3 0.1 - 1.1 mg/dl [facility] Comment:Slight hemolysis Conjugated Bilirubin 0.0 0.0 - 0.3 mg/dl [facility] Comment:Slight hemolysis Bilirubin, Total <0.5 0.2 - 1.3 mg/dl [facility] Comment:Slight hemolysis 01/27/2006 20:0 6 EDT 01/27/2006 20:06 EDT us Barbara Conway EDUCATIONAL SPECIALIST CHEMISTRY & BLOOD GAS ORDERAB LES Final Result Performing Organization Address [facility] de Phone Number [facility] [address] [place] [address] * (ABNORMAL) CK (01/27/2006 20:06 EDT) CK 146(H) 30 - 135 U/L [facility] Comment:Slight hemolysis 01/27/2006 20:0 6 EDT 01/27/2006 20:06 EDT us Barbara Conway EDUCATIONAL SPECIALIST CHEMISTRY & BLOOD GAS ORDERAB LES Final Result Performing Organization Address [facility] de Phone Number [facility] [address] [place] [address] documented in this encounter Visit Diagnoses Not on filedocumented in this encounter
--- OUTSIDE RECORDS SUMMARY | 2024-03-18 22:16 | XMS_ITS | Encounter Summary ---
Author Organization [facility] Address [address] [place] [address] Care Team Providers Care Client Development Director Name Role Phone Unavailable Primary Care Provider Unavailabl e Encounter Details Date Type Department Care Team (Latest Contact Info) Description 08/17/2005 19:04 EDT Hospital Encounter [facility] - Other [address] [place] [phone] Iraida Crews MD Discharge Disposition: Home or [...] Info) Description 03/27/2024 14:25 EST Hospital Encounter [facility] [place] OR [address] [place] [address] Vishal Castillo MD [address] [place] [phone] 03/27/2024 14:25 EST - 03/27/2024 17:55 EST Surgery [facility] [place] OR [address] [place], [place] [phone] Vishal Castillo MD [address] [place] [phone] Left Reverse Total Shoulder Arthroplasty [19172 (CPT??)] 04/08/2024 15:30 EST Post-op Visit [facility] Hand & Upper Extremity Program - [address] [address] Vishal Castillo MD [address] [place] [phone] Scheduled Procedures Name Priority Associated Diagnoses Date/Ti me ARTHROPLASTY, SHOULDER, TOTAL Left rotator cuff tear arthropathy 03/27/2024 14:25 EST documented as of this encounter Procedures Procedure Name Priority Date/Time Associated Diagnosis Comments CHEST PA 08/19/2005 13:03 EDT documented in this encounter Results * CHEST PA (08/19/2005 13:03 EDT) Anatomical Region Laterality Modality Other 08/19/2005 13:0 3 EDT Narrative 11/08/2008 12:44 EDT LEFT LUNG BIOPSY MASS R/O PNEUMOTHOORAX PROBLEM STATEMENT: ??Left lung biopsy. ??Rule out pneumothorax. AP EXPIRATORY CHEST: ??08/11/05 1302 HOURS IMPRESSION: ??Likely tiny left apical pneumothorax. DESCRIPTION: On this expiratory film it is difficult to see the visceral pleural line, but I suspect there is a tiny left apical pneumothorax present. The right lung and left lung remain clear. D: ??08/19/05 T: ??08/23/05 / Procedure Note Arnel Gross MD - 11/08/2008 LEFT LUNG BIOPSY MASS R/O PNEUMOTHOORAX PROBLEM STATEMENT: Left lung biopsy. Rule out pneumothorax. AP EXPIRATORY CHEST: 08/11/05 1302 HOURS IMPRESSION: Likely tiny left apical pneumothorax. DESCRIPTION: On this expiratory film it is difficult to see the visceral pleural line, but I suspect there is a tiny left apical pneumothorax present. The right lung and left lung remain clear. / Frantz Oglesby MD IMG DIAGNOSTIC IMAGING ORDERA BLES Final Result documented in this encounter Visit Diagnoses Not on filedocumented in this encounter
--- OUTSIDE RECORDS SUMMARY | 2024-03-18 22:16 | XMS_ITS | Encounter Summary ---
Author Organization [facility] Address [address] [place] [address] Care Team Providers Care X Ray Developer Name Role Phone Unavailable Primary Care Provider Unavailabl e Encounter Details Date Type Department Care Team (Late st Contact Info) Description 06/13/2006 11:50 EST Hospital Encounter [facility] [address] [place] [address] Arnel Oliva MD 111 [facility], [address] [place] [phone] Social History Tobacco Use Types Packs/Day Years [...] EST Hospital Encounter [facility] OR [address] [place], [place] [phone] Vishal Castillo MD [address] [place] [phone] 03/27/2024 14:25 EST - 03/27/2024 17:55 EST Surgery [facility] OR [address] [place], [place] [phone] Vishal Castillo MD [address] [place] [phone] Left Reverse Total Shoulder Arthroplasty [09548 (CPT??)] 04/08/2024 15:30 EST Post-op Visit [facility] Hand & Upper Extremity Program - [address] [address] Vishal Castillo MD [address] [place] [phone] Scheduled Procedures Name Priority Associated Diagnoses Date/Ti me ARTHROPLASTY, SHOULDER, TOTAL Left rotator cuff tear arthropathy 03/27/2024 14:25 EST documented as of this encounter Procedures Procedure Name Priority Date/Time Associated Diagnosis Comments BUN Routine 06/13/2006 11:50 EST CREATININE Routine 06/13/2006 11:50 EST documented in this encounter Results * CREATININE (06/13/2006 11:50 EST) Creatinine 0.85 0.7 - 1.5 mg/dl [facility] GFR, Calculated >60 ml/min/1.7 3m2 [facility] Comment:Performed at Stefanie Mello [facility]ctor [facility], [place], [place] 06/13/2006 11:5 0 EST 06/13/2006 11:52 EST us Arnel Oliva MD CHEMISTRY & BLOOD GAS ORDERAB LES Final Result Performing Organization Address [facility] Co de Phone Number [facility] [address] [place] [address] * BUN (06/13/2006 11:50 EST) BUN 20 10 - 26 mg/dl [facility] Comment:Performed at Stefanie Mello [facility], [place], [place] 06/13/2006 11:5 0 EST 06/13/2006 11:52 EST us Arnel Oliva MD CHEMISTRY & BLOOD GAS ORDERAB LES Final Result Performing Organization Address [facility] de Phone Number [facility] [address] [place] [address] documented in this encounter Visit Diagnoses Not on filedocumented in this encounter Additional Health Concerns Infection Onset Date Last Indicated Resolved Time R/O COVID-19 10/24/2019 10/24/2019 10/28/2019 10:3 2 EDT documented as of this encounter
--- OUTSIDE RECORDS SUMMARY | 2024-03-18 22:16 | XMS_ITS | Encounter Summary ---
Author Organization [facility] Address [address] [place] [address] Care Team Providers Care Track Template Maker Name Role Phone Unavailable Primary Care Provider Unavailabl e Encounter Details Date Type Department Care Team (Late st Contact Info) Description 06/23/2006 8:20 EST - 06/23/2006 11:59 EST Hospital Encounter [address] [address] Arnel Oliva MD 111 [facility], Level [address] [place] [phone] Discharge Disposition: Auto Discharge Social History Tobacco [...] EST Hospital Encounter [facility] OR [address] [place] [phone] Vishal Castillo MD [address] [place] [phone] 03/27/2024 14:25 EST - 03/27/2024 17:55 EST Surgery [facility] OR [address] [place] [address] Vishal Castillo MD [address] [place] [phone] Left Reverse Total Shoulder Arthroplasty [98898 (CPT??)] 04/08/2024 15:30 EST Post-op Visit [facility] Hand & Upper Extremity Program - [address] [address] Vishal Castillo MD [address] [place] [phone] Scheduled Procedures Name Priority Associated Diagnoses Date/Ti me ARTHROPLASTY, SHOULDER, TOTAL Left rotator cuff tear arthropathy 03/27/2024 14:25 EST documented as of this encounter Procedures Procedure Name Priority Date/Time Associated Diagnosis Comments CT ABDOMEN, PELVIS W CONTRAST 06/23/2006 10:05 EST documented in this encounter Results * CT ABDOMEN, PELVIS W CONTRAST (06/23/2006 10:05 EST) Anatomical Region Laterality Modality Other 06/23/2006 10:0 5 EST Narrative 10/22/2008 10:13 EDT RECTAL CA S/O TEM 05-24-05 CT abdomen and pelvis at 05/26/2006 at 1000 hours History: Rectal cancer. Evaluate for metastatic disease. Comparison: April and July 2005 Technique: After administration of IV, oral, and rectal contrast, axial images were obtained the abdomen and pelvis. Findings: There is a nodule in the right middle lobe and another in the right lower lobe which are unchanged. There are no new nodules and there is no pleural effusion. There is no free intra-abdominal air, or ascites. There is a hypodensity adjacent to the falciform ligament which does not enhance on portal venous phase or on delayed imaging. This is consistent with a centimeter size hepatic cyst. There is focal fatty infiltration adjacent to the falciform ligament. This does not display abnormal enhancement on portal venous or delayed phase imaging. The gallbladder, pancreas, spleen, adrenal glands, and left kidney are normal. There is mild hydronephrosis of the lower pole right kidney with renal cortical atrophy in the area. The aorta appears unremarkable. There is a moderate sized hiatal hernia. The urinary bladder is unremarkable. The uterus appears normal. There is prominence of the ??presumed right ovary, measuring 2.5 x 2 cm. There is no pathologic sized lymphadenopathy. The previously seen rectal mass is not present. There is no bowel wall thickening or evidence of obstruction. There is a small fat containing umbilical hernia. There is mild degenerative disc disease of the visualized thoracolumbar spine. Impression: 1. There is no evidence of recurrent or metastatic rectal cancer. 2. There is a complex cystic appearing structure in the right adnexa. This is an abnormal finding in the postmenopausal period. Ultrasound examination is recommended. 3. Hydronephrosis of the lower pole right kidney with renal atrophy. This is present on the previous examination to a slightly lesser extent. I have personally reviewed the images and the above interpretation and agree with the findings. Procedure Note Zackary Gutierrez MD / Jose Roblero MD - 10/22/2008 RECTAL CA S/O TEM 05-24-05 CT abdomen and pelvis at 05/26/2006 at 1000 hours History: Rectal cancer. Evaluate for metastatic disease. Comparison: April and July 2005 Technique: After administration of IV, oral, and rectal contrast, axial images were obtained the abdomen and pelvis. Findings: There is a nodule in the right middle lobe and another in the right lower lobe which are unchanged. There are no new nodules and there is no pleural effusion. There is no free intra-abdominal air, or ascites. There is a hypodensity adjacent to the falciform ligament which does not enhance on portal venous phase or on delayed imaging. This is consistent with a centimeter size hepatic cyst. There is focal fatty infiltration adjacent to the falciform ligament. This does not display abnormal enhancement on portal venous or delayed phase imaging. The gallbladder, pancreas, spleen, adrenal glands, and left kidney are normal. There is mild hydronephrosis of the lower pole right kidney with renal cortical atrophy in the area. The aorta appears unremarkable. There is a moderate sized hiatal hernia. The urinary bladder is unremarkable. The uterus appears normal. There is prominence of the presumed right ovary, measuring 2.5 x 2 cm. There is no pathologic sized lymphadenopathy. The previously seen rectal mass is not present. There is no bowel wall thickening or evidence of obstruction. There is a small fat containing umbilical hernia. There is mild degenerative disc disease of the visualized thoracolumbar spine. Impression: 1. There is no evidence of recurrent or metastatic rectal cancer. 2. There is a complex cystic appearing structure in the right adnexa. This is an abnormal finding in the postmenopausal period. Ultrasound examination is recommended. 3. Hydronephrosis of the lower pole right kidney with renal atrophy. This is present on the previous examination to a slightly lesser extent. I have personally reviewed the images and the above interpretation and agree with the findings. us Arnel Oliva MD IMG CT ORDERABLES Final Resul t documented in this encounter Visit Diagnoses Not on filedocumented in this encounter
--- OUTSIDE RECORDS SUMMARY | 2024-03-18 22:16 | XMS_ITS | Encounter Summary ---
Author Organization [facility] Address [address] [place] [address] Care Team Providers Care Electronics Tester Name Role Phone Unavailable Primary Care Provider Unavailabl e Encounter Details Date Type Department Care Team (Late st Contact Info) Description 08/08/2005 11:31 EDT - 08/08/2005 11:59 EDT Hospital Encounter [facility] - Other [address] [place] [address] Arnel Oliva MD [address] [facility], [address] [place] [phone] Discharge Disposition: Auto Discharge Social History Tobacco [...] 14:25 EST Hospital Encounter [facility] OR [address] [place] [address] Vishal Castillo MD [address] [place] [phone] 03/27/2024 14:25 EST - 03/27/2024 17:55 EST Surgery [facility] OR [address] [place] [address] Vishal Castillo MD [address] [place] [phone] Left Reverse Total Shoulder Arthroplasty [58367 (CPT??)] 04/08/2024 15:30 EST Post-op Visit [facility] Hand & Upper Extremity Program - [address] [address] Vishal Castillo MD [address] [place] [phone] Scheduled Procedures Name Priority Associated Diagnoses Date/Ti me ARTHROPLASTY, SHOULDER, TOTAL Left rotator cuff tear arthropathy 03/27/2024 14:25 EST documented as of this encounter Visit Diagnoses Not on filedocumented in this encounter
--- OUTSIDE RECORDS SUMMARY | 2024-03-18 22:16 | XMS_ITS | Encounter Summary ---
Author Organization [facility] Address [address] [place] [address] Care Team Providers Care Extension Professor Name Role Phone Unavailable Primary Care Provider Unavailabl e Encounter Details Date Type Department Care Team (Late st Contact Info) Description 05/10/2006 6:47 EST - 05/10/2006 11:59 EST Hospital Encounter [facility] [address] [place] [address] Arnel Oliva MD 111 [facility], [address] [place] [phone] Discharge Disposition: Auto Discharge Social History Tobacco [...] Info) Description 03/27/2024 14:25 EST Hospital Encounter [facility] OR [address] [place] [phone] Vishal Castillo MD [address] [place] [phone] 03/27/2024 14:25 EST - 03/27/2024 17:55 EST Surgery [facility] OR [address] [place] [address] Vishal Castillo MD [address] [place] [phone] Left Reverse Total Shoulder Arthroplasty [74376 (CPT??)] 04/08/2024 15:30 EST Post-op Visit [facility] Hand & Upper Extremity Program - [address] [address] Vishal Castillo MD [address] [place] [phone] Scheduled Procedures Name Priority Associated Diagnoses Date/Ti me ARTHROPLASTY, SHOULDER, TOTAL Left rotator cuff tear arthropathy 03/27/2024 14:25 EST documented as of this encounter Procedures Procedure Name Priority Date/Time Associated Diagnosis Comments CEA Routine 05/10/2006 9:20 EST GLUCOSE, GLUCOMETER Routine 05/10/2006 7 :11 EST documented in this encounter Results * CEA (05/10/2006 9:20 EST) CEA 1.7 ng/ml [facility] Comment: % Distribution of CEA (ng/ml) 0-2.5 in 98.2% of non-smokers and 87.3% of smokers 2.6-5.0 in 1.8% of non-smokers and 8.0% of smokers 5.1-10.1 in 4.7% of smokers Serum CEA concentration should not be interpreted as absolute evidence for the presence or absence of malignant disease. Assayed utilizing [employer] chemiluminescent technology. Values obtained by using different assay methods cannot be used interchangeably. PREVIOUS CEA RESULT ON 01/09/06 WAS 1.3 AND ON 10/13/05 WASS 1.0 05/10/2006 9:20 EST 05/10/2006 9:23 EST us Arnel Oliva MD CHEMISTRY & BLOOD GAS ORDERAB LES Final Result [facility] [address] [place] [address] * (ABNORMAL) GLUCOSE, GLUCOMETER (05/10/2006 7:11 EST) Glucose, Fingerstick 108(H) 70 - 100 mg/dl [facility] Envelope Machine Operator ID [id number] Test Performed by Nursing Services [facility] 05/10/2006 7:11 EST 05/10/2006 14:40 EST us Provider Turner KIM CHEMISTRY & BLOOD GAS ORDERA BLES Final Result Performing Organization Address City/[facility]/ZIP Co de Phone Number [facility] [address] [place] [address] documented in this encounter Visit Diagnoses Not on filedocumented in this encounter
--- OUTSIDE RECORDS SUMMARY | 2024-03-18 22:16 | XMS_ITS | Encounter Summary ---
Author Organization [facility] Address [address] [place] [address] Care Team Providers Care Environmental Research Project Manager Name Role Phone Unavailable Primary Care Provider Unavailabl e Encounter Details Date Type Department Care Team (Late st Contact Info) Description 10/14/2005 10:14 EDT Hospital Encounter [facility] [address] [place] [address] Arnel Oliva MD [address] [place] [address], [address] [place] [phone] Social History Tobacco Use Types Packs/Day Years [...] Info) Description 03/27/2024 14:25 EST Hospital Encounter [facility] [place] [address] [place] [address] [phone] Vishal Castillo MD [address] [place] [phone] 03/27/2024 14:25 EST - 03/27/2024 17:55 EST Surgery [facility] [place] [address] [place] [address] [phone] Vishal Castillo MD [address] [place] [phone] Left Reverse Total Shoulder Arthroplasty [51203 (CPT??)] 04/08/2024 15:30 EST Post-op Visit [facility] Hand & Upper Extremity Program - [address] [address] Vishal Castillo MD [address] [place] [phone] Scheduled Procedures Name Priority Associated Diagnoses Date/Ti me ARTHROPLASTY, SHOULDER, TOTAL Left rotator cuff tear arthropathy 03/27/2024 14:25 EST documented as of this encounter Visit Diagnoses Not on filedocumented in this encounter Additional Health Concerns Infection Onset Date Last Indicated Resolved Time R/O COVID-19 10/24/2019 10/24/2019 10/28/2019 10:3 2 EDT documented as of this encounter
--- OUTSIDE RECORDS SUMMARY | 2024-03-18 22:16 | XMS_ITS | Encounter Summary ---
Author Organization [facility] Address [address] [place] [address] Care Team Providers Care Experimental Box Tester Name Role Phone Unavailable Primary Care Provider Unavailabl e Encounter Details Date Type Department Care Team (Late st Contact Info) Description 08/11/2005 13:00 EDT Hospital Encounter [address] [address] Arnel Oliva MD [address] [place] [address], [address] [place] [phone] Discharge Disposition: Auto Discharge Social History Tobacco [...] Info) Description 03/27/2024 14:25 EST Hospital Encounter [facility] [place] [address] [place] [address] Vishal Castillo MD [address] [place] [phone] 03/27/2024 14:25 EST - 03/27/2024 17:55 EST Surgery [facility] OR [address] [place] [address] Vishal Castillo MD [address] [place] [phone] Left Reverse Total Shoulder Arthroplasty [14777 (CPT??)] 04/08/2024 15:30 EST Post-op Visit [facility] Hand & Upper Extremity Program - [address] [address] Vishal Castillo MD [address] [place] [phone] Scheduled Procedures Name Priority Associated Diagnoses Date/Ti me ARTHROPLASTY, SHOULDER, TOTAL Left rotator cuff tear arthropathy 03/27/2024 14:25 EST documented as of this encounter Visit Diagnoses Not on filedocumented in this encounter
--- OUTSIDE RECORDS SUMMARY | 2024-03-18 22:16 | XMS_ITS | Encounter Summary ---
Author Organization [facility] Address [address] [place] [address] Care Team Providers Care Inker Machine Name Role Phone Barbara Conway Myla MANAGER CONSTRUCTION Primary Care Provider [phone] Encounter Details Date Type Department Care Team (Late st Contact Info) Description 05/13/2005 Before PRISM Converted Visit ([facility]) [facility] [address] [place] [address] Ab Crisostomo MD [address] [place] [address] Social History Tobacco Use Types Packs/Day Years Used Date Smoking Tobacco: Never Assessed Comments Unknown Sex and Gender Information Value Date Recorded Sex Assigned at Female 03/08/2024 18:30 EST Legal Sex Female 18:30 EST Gender Identity Female 05/28/2019 8:56 EST Sexual Orientation Not on file documented as of this encounter Progress Notes * Ab Crisostomo - 06/24/2009 0502 EST DIVISION OF GENERAL SURGERY May 12, 2005 Bird Wells MD [facility] [address] [place] [address] Wells, I just wanted to bring you up to speed on Aretha Garcia. 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 On colonoscopy today, she had no other lesions. On rectalsonography, she appeared to havean early staged lesion without any adenopathy. We had set her up for a CT scan. Assuming there are no surprises on her CT scan, I have set her up to have transanal endoscopic microsurgery with my colleague, Dr. Oliva. If the final pathology does reveal an early staged lesion, this may prove to be adequate treatment. I explained the algorithm of treatment at great length to Ms. Garcia and her daughter. We will keep you posed as things evolve. Sincerely, Signed by Ab Crisostomo MD, FACS 05/18/2005 09:48 Rosalee Crisostomo MD, [id number] H Hyman, MD, FACS Ab Crisostomo MD, FACS [phone] - Ab Crisostomo MD, FACS A - CD Job ID: tape Document ID: [id number] cc: Arnel Oliva MD, FACS MD Papo Silva MD documented in this encounter Plan of Treatment Upcoming Encounters Date Type Department Care Team (Latest Contact Info) Description 03/27/2024 14:25 EST Hospital Encounter [facility] OR [address] [place] [address] Vishal Castillo MD [address] [place] [phone] 03/27/2024 14:25 EST - 03/27/2024 17:55 EST Surgery [facility] OR [address] [place] [address] Vishal Castillo MD [address] [place] [phone] Left Reverse Total Shoulder Arthroplasty [21110 (CPT??)] 04/08/2024 15:30 EST Post-op Visit [facility] Hand & Upper Extremity Program - [address] [place] [address] Vishal Castillo MD [address] [place] [phone] Scheduled Procedures Name Priority Associated Diagnoses Date/Ti me ARTHROPLASTY, SHOULDER, TOTAL Left rotator cuff tear arthropathy 03/27/2024 14:25 EST documented as of this encounter Visit Diagnoses Not on filedocumented in this encounter Care Teams Inker Machine Relationship Specialty Start Date End Date Barbara Conway NP [address] [place] [address] PCP - General 08/14/08 3 documented as of this encounter
--- OUTSIDE RECORDS SUMMARY | 2024-03-18 22:16 | XMS_ITS | Encounter Summary ---
Author Organization [facility] Address [address] [place] [address] Care Team Providers Care Universal Banker Name Role Phone Unavailable Primary Care Provider Unavailabl e Encounter Details Date Type Department Care Team (Late st Contact Info) Description 08/19/2005 7:43 EDT - 08/19/2005 11:59 EDT Hospital Encounter [facility] [address] [place], [place] [phone] Arnel Oliva MD [address] [facility], [address] [place] [address] Discharge Disposition: Home or Self [...] Description 03/27/2024 14:25 EST Hospital Encounter [facility] OR [address] [place] [address] [phone] Vishal Castillo MD [address] [place] [phone] 03/27/2024 14:25 EST - 03/27/2024 17:55 EST Surgery [facility] OR [address] [place] [address] [phone] Vishal Castillo MD [address] [place] [phone] Left Reverse Total Shoulder Arthroplasty [88963 (CPT??)] 04/08/2024 15:30 EST Post-op Visit [facility] Hand & Upper Extremity Program - [address] [address] Vishal Castillo MD [address] [place] [phone] Scheduled Procedures Name Priority Associated Diagnoses Date/Ti me ARTHROPLASTY, SHOULDER, TOTAL Left rotator cuff tear arthropathy 03/27/2024 14:25 EST documented as of this encounter Procedures Procedure Name Priority Date/Time Associated Diagnosis Comments CT GUIDE BIOPSY/ASPIR/INJECT 08/19/2005 11:35 EDT documented in this encounter Results * CT GUIDE BIOPSY/ASPIR/INJECT (08/19/2005 11:35 EDT) Anatomical Region Laterality Modality Other 08/19/2005 11:3 5 EDT Narrative 11/08/2008 13:[address] GUIDED RIGHT LOWER LOBE BIOPSY CT-GUIDED BIOPSY: 08/19/05, 0859 CLINICAL HISTORY: Patient with rectal cancer. ??Multiple pulmonary nodules. The risks and benefits of the procedure were explained to the patient and informed consent was obtained for lung biopsy. ??History and physical examination were performed for the purposes of administering conscious sedation, which was administered during the procedure with fentanyl and versed, with continuous monitoring of pulse, blood pressure, respiratory rate and oxygen saturation. With the patient prone, localizing, noncontrast CT of the lower chest was performed for localization of the nodule. ??This demonstrated multiple pulmonary nodules in the right and left lower lobes. ??The largest nodule was in the left lower lobe, measuring approximately 7mm. ??This nodule was chosen for biopsy. ??Next, skin site was chosen using the CT laser gantry light, and this area was then prepped and draped in sterile fashion in the left lower back. ??Next, the skin and subcutaneous tissues up to the pleural surface were anesthetized with 2% buffered Lidocaine. ??Next, a 19 gauge, 8cm coaxial needle was placed through the lung, into the periphery of the left lower lobe nodule using CT guidance. ??Multiple fine needle aspirates were obtained through this needle with 22 gauge, 15cm Chiba needles. Additionally, a single 20-gauge core biopsy specimen was obtained using a [employer] device. The specimens were analyzed by the on-site cytopathologist. A small pneumothorax developed during the procedure, which did not expand during the procedure, and the patient remained asymptomatic. Otherwise, there were no immediate complications. ??The Attending Physician, Dr. Oglesby, was present throughout the entire procedure. IMPRESSION: Successful CT-guided biopsy of left lower lobe pulmonary nodule. ??As above, there are multiple nodules throughout the lower lobes. /[facility] Procedure Note Jose Jones MD / Frantz Oglesby MD - 11/08/2008 CT GUIDED RIGHT LOWER LOBE BIOPSY CT-GUIDED BIOPSY: 08/19/05, 0859 CLINICAL HISTORY: Patient with rectal cancer. Multiple pulmonary nodules. The risks and benefits of the procedure were explained to the patient and informed consent was obtained for lung biopsy. History and physical examination were performed for the purposes of administering conscious sedation, which was administered during the procedure with fentanyl and versed, with continuous monitoring of pulse, blood pressure, respiratory rate and oxygen saturation. With the patient prone, localizing, noncontrast CT of the lower chest was performed for localization of the nodule. This demonstrated multiple pulmonary nodules in the right and left lower lobes. The largest nodule was in the left lower lobe, measuring approximately 7mm. This nodule was chosen for biopsy. Next, skin site was chosen using the CT laser gantry light, and this area was then prepped and draped in sterile fashion in the left lower back. Next, the skin and subcutaneous tissues up to the pleural surface were anesthetized with 2% buffered Lidocaine. Next, a 19 gauge, 8cm coaxial needle was placed through the lung, into the periphery of the left lower lobe nodule using CT guidance. Multiple fine needle aspirates were obtained through this needle with 22 gauge, 15cm Chiba needles. Additionally, a single 20-gauge core biopsy specimen was obtained using a [employer] device. The specimens were analyzed by the on-site cytopathologist. A small pneumothorax developed during the procedure, which did not expand during the procedure, and the patient remained asymptomatic. Otherwise, there were no immediate complications. The Attending Physician, Dr. Oglesby, was present throughout the entire procedure. IMPRESSION: Successful CT-guided biopsy of left lower lobe pulmonary nodule. As above, there are multiple nodules throughout the lower lobes. /[facility] us Arnel Oliva MD IMG CT ORDERABLES Final Resul t documented in this encounter Visit Diagnoses Not on filedocumented in this encounter
--- OUTSIDE RECORDS SUMMARY | 2024-03-18 22:16 | XMS_ITS | Encounter Summary ---
Author Organization [facility] Address [address] [place] [address] Care Team Providers Care Surface Logging Systems Logger Name Role Phone Barbara Conway Myla RN [facility] Primary Care Provider [phone] Encounter Details Date Type Department Care Team (Late st Contact Info) Description 05/12/2005 Results Only [facility] - [facility] conversion [address] [place] [address] [phone] Unknown, Provider, Social History Tobacco Use Types [...] Hospital Encounter [facility] OR [address] [place] [address] [phone] Vishal Castillo MD [address] [place] [phone] 03/27/2024 14:25 EST - 03/27/2024 17:55 EST Surgery [facility] OR [address] [place] [address] [phone] Vishal Castillo MD [address] [place] [phone] Left Reverse Total Shoulder Arthroplasty [59761 (CPT??)] 04/08/2024 15:30 EST Post-op Visit [facility] Hand & Upper Extremity Program - [facility] [address] [place] [address] Vishal Castillo MD [address] [place] [phone] Scheduled Procedures Name Priority Associated Diagnoses Date/Ti me ARTHROPLASTY, SHOULDER, TOTAL Left rotator cuff tear arthropathy 03/27/2024 14:25 EST documented as of this encounter Procedures Procedure Name Priority Date/Time Associated Diagnosis Comments GLUCOSE, GLUCOMETER Routine 05/12/2005 1 0:15 EST documented in this encounter Results * (ABNORMAL) GLUCOSE, GLUCOMETER (05/12/2005 10:15 EST) Glucose, Fingerstick 132(H) 70 - 110 mg/dl [facility] Pump Stitcher ID [id number] Test Performed by Nursing Services [facility] 05/12/2005 10:1 5 EST 05/12/2005 15:07 EST us Provider Unknown CHEMISTRY & BLOOD GAS ORDERA BLES Final Result [facility] [address] [place] [address] documented in this encounter Visit Diagnoses Not on filedocumented in this encounter Care Teams Surface Logging Systems Logger Relationship Specialty Start Date End Date Barbara Conway, [place] [address] [place] [address] PCP - General 08/14/08 07/22/13 documented as of this encounter
--- OUTSIDE RECORDS SUMMARY | 2024-03-18 22:16 | XMS_ITS | Encounter Summary ---
Author Organization [facility] Address [address] [place] [address] Care Team Providers Care Pig Casting Machine Operator Name Role Phone Barbara Conway Myla PROSPECTING DRILLER HELPER Primary Care Provider [phone] Encounter Details Date Type Department Care Team (Late st Contact Info) Description 05/12/2006 Results Only [facility] - [place] conversion [address] [place] [address] Iraida Crews MD Social History Tobacco Use [...] 03/27/2024 14:25 EST Hospital Encounter [facility] OR [address] [place] [address] [phone] Vishal Castillo MD [address] [place] [phone] 03/27/2024 14:25 EST - 03/27/2024 17:55 EST Surgery [facility] OR [address] [place] [address] [phone] Vishal Castillo MD [address] [place] [phone] Left Reverse Total Shoulder Arthroplasty [50607 (CPT??)] 04/08/2024 15:30 EST Post-op Visit [facility] Hand & Upper Extremity Program - [address] [place] [address] Vishal Castillo MD [address] [place] [phone] Scheduled Procedures Name Priority Associated Diagnoses Date/Ti me ARTHROPLASTY, SHOULDER, TOTAL Left rotator cuff tear arthropathy 03/27/2024 14:25 EST documented as of this encounter Procedures Procedure Name Priority Date/Time Associated Diagnosis Comments HEMOGLOBIN A1C Routine 05/12/2006 17:20 EST LIPID PROFILE (INCLUDES CHOLESTEROL, TRIGLYCERIDES, HDL, LDL) Routine 05/12/2006 17:20 EST documented in this encounter Results * LIPID PROFILE (INCLUDES CHOLESTEROL, TRIGLYCERIDES, HDL, LDL) (05/12/2006 17:20 EST) Cholesterol 180 mg/dl [facility] Comment: Desirable:<200 Borderline:200-239 High Risk:>nr=882 Triglycerides 74 35 - 160 mg/dl [facility] HDL 63 mg/dl [facility] Comment: Highly Desirable:>60 Desirable:35-60 High Risk:<35 LDL, Calculated 102 mg/dl [facility] Comment: Desirable:<130 Borderline:130-159 High Risk:>qw=531 Chol/HDL Ratio 2.9 [facility] Fasting? Unknown [facility] 05/12/2006 17:2 0 EST 05/12/2006 17:20 EST Iraida Crews MD CHEMISTRY & BLOOD GAS SUGAR RAINEY Final Result [facility] [address] [place] [address] * HEMOGLOBIN A1C (05/12/2006 17:20 EST) Hemoglobin A1C 6.3 % [facility] Comment: Reference Range: <6% Normal Range <7% Recommended goal by ADA guidelines 7-8% Suboptimal by ADA guidelines >8% Further action suggested by ADA guidelines 05/12/2006 17:2 0 EST 05/12/2006 17:20 EST us Iraida Crews MD CHEMISTRY & BLOOD GAS SUGAR RAINEY Final Result [facility] [address] [place] [address] documented in this encounter Visit Diagnoses Not on filedocumented in this encounter Care Teams Pig Casting Machine Operator Relationship Specialty Start Date End Date Barbara Conway, PROSPECTING DRILLER HELPER [address] [place] [address] PCP - General 08/14/08 07/22/13 documented as of this encounter
--- OUTSIDE RECORDS SUMMARY | 2024-03-18 22:16 | XMS_ITS | Encounter Summary ---
Author Organization [facility] Address [address] [place] [address] Care Team Providers Care Acoustical Engineer Name Role Phone Barbara Conway Myla DINING CAR STEWARD Primary Care Provider [phone] Encounter Details Date Type Department Care Team (Late st Contact Info) Description 07/05/2005 Results Only [facility] General Surgery - [address] [phone] Arnel Muñoz MD [address] [facility], [address] [place] [phone] Social History Tobacco Use Types Packs/Day Years [...] Hospital Encounter [facility] OR [address] [place] [address] 734571 Vishal Castillo MD [address] [place] [phone] 03/27/2024 14:25 EST - 03/27/2024 17:55 EST Surgery [facility] [place] [address] [place] [address] Vishal Castillo MD [address] [place] [phone] Left Reverse Total Shoulder Arthroplasty [40234 (CPT??)] 04/08/2024 15:30 EST Post-op Visit [facility] Hand & Upper Extremity Program - [address] [place] [address] Vishal Castillo MD [address] [place] [phone] Scheduled Procedures Name Priority Associated Diagnoses Date/Ti me ARTHROPLASTY, SHOULDER, TOTAL Left rotator cuff tear arthropathy 03/27/2024 14:25 EST documented as of this encounter Procedures Procedure Name Priority Date/Time Associated Diagnosis Comments CYTOPATHOLOGY Routine 07/05/2005 0:00 EST SURGICAL PATHOLOGY Routine 07/05/2005 0:00 EST documented in this encounter Results * CYTOPATHOLOGY (07/05/2005 0:00 EST) Pathology Report: CYTOPATHOLOGY REPORT Reports generated via electronic interface contain original data; however they are lacking the format of the original report. Caution should be taken when reading/interpreti ng unformatted reports. Name: ? ARETHA HILL ? Accession #: ? [id number] : ? 1945 (Age: 60) ??F ?Collect Date: ? 07/05/2005 Location: ? [facility] ? Receive Date: ? 07/05/2005 Provider: ? ARNEL MUÑOZ MD Copy to: ?NINO VERA MD ? CYTOLOGIC DIAGNOSIS: ? Soft tissue, ?? bed of rectal tumor, fine needle aspiration: - Rare atypical cells present. ??See comment. ? COMMENT: ? The specimen consists of rare atypical cells in a background of numerous benign epithelial cells, inflammatory cells and giant cells. ?? The atypical cells present may present a portion of the tubulovillous adenoma seen on the concurrent biopsies ([id number]). ??(Dr. Samuel)/[facility] Document reviewed and electronically signed by: ? ONEL SAMUEL MD Report Date: ??07/08/2005 16:11 By the signature above, the attending physician certifies that he/she has personally conducted a gross and/or microscopic examination of the described specimens and rendered or confirmed the above diagnosis. Specimen Type: ? Soft Tissue, Fine Needle Aspiration, Rectal tumor Clinical History: ? H/O rectal CA, R/O persistent tumor; clinical diagnosis code: rectal cancer ? Gross Description: ? 3 fixed prepared slides, 2 air dried prepared slides, and 1 tube of Cytolyt were received and processed by selective cellular enhancement technique. ? End of Report [facility] 07/05/2005 07/05/2005 10: 50 EST us Arnel Muñoz MD PATHOLOGY ORDERABLES Final Re sult [facility] [address] [place] [address] * SURGICAL PATHOLOGY (07/05/2005 0:00 EST) Pathology Report: SURGICAL PATHOLOGY REPORT Reports generated via electronic interface contain original data; however they are lacking the format of the original report. Caution should be taken when reading/interpreti ng unformatted reports. Name: ? ARETHA HILL ? Accession #: ? [id number] ? : ? 1945 (Age: 60) ??F ? Collect Date: ? 07/05/2005 ? Location: ? [facility] ? Receive Date: ? 07/05/2005 ? Provider: ARNEL MÑUOZ MD Copy to: NINO VERA MD ? Final Pathologic Diagnosis: ? Rectum, previous incision site of rectal cancer, excision: 1. ?Tubulovillous adenoma. ??See comment. 2. ?Granulation tissue. Comment: ? The previous biopsy ([id number]) has been reviewed and there is no evidence of invasive adenocarcinoma in the present specimen. ??(Dr. Keyes)/[facility] Document reviewed and electronically signed by: [facility] Report ??Date: 07/07/2005 14:57 By the signature above, the attending physician certifies that he/she has personally conducted a gross and/or microscopic examination of the described specimens and rendered or confirmed the above diagnosis. Specimen(s) Received: ? Incision site of rectal cancer Clinical History: ? Hx rectal CA; R/O persistent tumor Gross Description: ? Received in formalin labelled Jose and A-incision site of rectal cancer are four fragments of hewitt-brown firm tissue ranging in size from 0.3 cm in maximum dimension to 0.7 cm in maximum dimension. ??These are submitted entirely in one cassette. (Dr. Keyes)/[facility] End of Report [facility] 07/05/2005 07/05/2005 12: 31 EST us Arnel Muñoz MD PATHOLOGY ORDERABLES Final Re sult [facility] [address] [place] [address] documented in this encounter Visit Diagnoses Not on filedocumented in this encounter Care Teams Acoustical Engineer Relationship Specialty Start Date End Date Barbara Conway, DINING CAR STEWARD [address] [place] [address] PCP - General 08/14/08 3 documented as of this encounter
--- OUTSIDE RECORDS SUMMARY | 2024-03-18 22:16 | XMS_ITS | Encounter Summary ---
Author Organization [facility] Address [address] [place] [address] Care Team Providers Care Lever Miller Name Role Phone Unavailable Primary Care Provider Unavailabl e Encounter Details Date Type Department Care Team (Latest Contact Info) Description 05/12/2005 9:41 EST - 05/12/2005 11:[address] [facility] [address] [place] [address] Ab Crisostomo MD [address] [place] [phone] Discharge Disposition: Auto Discharge Social History Tobacco [...] Description 03/27/2024 14:25 EST Hospital Encounter [facility] OR [address] [place] [address] Vishal Castillo MD [address] [place] [phone] 03/27/2024 14:25 EST - 03/27/2024 17:55 EST Surgery [facility] OR [address] [place] [address] Vishal Castillo MD [address] [place] [phone] Left Reverse Total Shoulder Arthroplasty [60284 (CPT??)] 04/08/2024 15:30 EST Post-op Visit [facility] Hand & Upper Extremity Program - [address] [address] Vishal Castillo MD [address] [place] [phone] Scheduled Procedures Name Priority Associated Diagnoses Date/Ti me ARTHROPLASTY, SHOULDER, TOTAL Left rotator cuff tear arthropathy 03/27/2024 14:25 EST documented as of this encounter Visit Diagnoses Not on filedocumented in this encounter
--- OUTSIDE RECORDS SUMMARY | 2024-03-18 22:16 | XMS_ITS | Encounter Summary ---
Author Organization [facility] Address [address] [place] [address] Care Team Providers Care Tattoo Artist Name Role Phone JuanBarbara whitney Myla RIVET TOSSER Primary Care Provider Encounter Details Date Type Department Care Team (Late st Contact Info) Description 07/01/2005 Before PRISM Converted Visit (Maple) [facility] - Maple conversion [address] [place], [place] [phone] Arnel Oliva MD [address] [facility], [address] [place] [address] Social History Tobacco Use Types Packs/Day Years Used Date Smoking Tobacco: Never Assessed Comments Unknown Sex and Gender Information Value Date Recorded Sex Assigned at Female 03/08/2024 18:30 EST Legal Sex Female 18:30 EST Gender Identity Female 05/28/2019 8:56 EST Sexual Orientation Not on file documented as of this encounter Progress Notes * Arnel Oliva MD - 04/03/2009 1219 EST DIVISION OF GENERAL SURGERY PROGRESS/FOLLOWUP NOTE - P: S/P EXAMINATION UNDER ANESTHESIA TO INSURE THAT SHE DID NOT HAVE POSITIVE MARGINS AT THE TIME OFTEM S: Patient is doing well, no complaints. She states that she may have passed a small amount of mailper vagina but it is not bothersome for her whatsoever. No stool per vagina. No incontinence and novaginal infection. O: PE deferred. Pathology revealed no evidence of any tumor at the old TEM site. A: Doing well S/P TEM for T1 rectal cancer. Negative margins. Negative postoperative examination under anesthesia. P: 1) Patient and I discussed the options. Because she may have a developing or healing anovaginal fistula, I would avoid radiation to the area. There is no clear indication for that with her pathology and the negative margins at any rate. 2) We will check a CEA today and follow-up with repeat physical exam and CEA in three months. If patient does develop a true anovaginal fistula and it becomes symptomatic, we will plan repair. 3) The patient has had an abnormal CT scan with impression of tiny pulmonary nodules. We will plan repeat CT scan of the chest. Signed by Arnel Oliva MD, FACS 07/29/2005 13:28 Miguel Angel Oliva MD, [id number] A Cataldo, MD, FACS Arnel Oliva MD, FACS [phone] - Arnel Oliva MD, FACS P - cd Job ID: tape Document ID: [id number] cc: MD Iraida Silva MD Neil H Hyman, MD, FACS Papo Godoy MD * Arnel Oliva MD - 04/03/2009 0020 EST DIVISION OF GENERAL SURGERY PROGRESS/FOLLOWUP NOTE - Patient is S/P TEM for T1 rectal cancer complicated by a small hole in the posterior wall of the vagina. Patient has recovered nicely with no consequences from this. Original pathology revealed the deep margin to be positive. This is surprising since it was a T1 lesion and the patient had a full thickness excision even into the posterior vaginal wall. Pathology was reviewed and the margin was felt to be negative. This was an artifact of specimen preparation. We discussed het entire situation at length at the patients last visit and she wished to discuss itfurther today. Patient is doing well with good bowel function, no evidence of any anovaginal fistula. She is moving her bowels without difficulty, no bleeding, no incontinence. She is concerned about her options. PHYSICAL EXAM: Deferred. We discussed at length today the various options. Options include: 1) Routine follow-up with CEA and physical exams every three months. 2) Examination under anesthesia and re-biopsy the area to insure there is no evidence of recurrent cancer (this certainly does not guarantee no evidence of persistent cancer but is helpful in decision making particularly if positive). 3) Chemoradiation because of question of option. 4) Abdominoperineal resection with posterior vaginectomy. Patient again does not wish to have a permanent colostomy unless it is absolutely necessary and there is obvious evidence there is persistent cancer. She is considering chemoradiation but is unsure about this. She does wish to have an exam under anesthesia and biopsy. She understands the risks include hemorrhage, infection, anovaginal fistula and incorrect diagnosis. We will plan this on Monday, she requests we proceed. Signed by Arnel Oliva MD, FACS 07/11/2005 16:36 Miguel Angel Oliva MD, [id number] A Cataldo, MD, FACS Arnel Oliva MD, FACS [phone] - Arnel Oliva MD, FACS A - cd Job ID: tape Document ID: [id number] cc: MD Iraida Silva MD Neil H Hyman, MD, FACS Papo Godoy MD documented in this encounter Plan of Treatment Upcoming Encounters Date Type Department Care Team (Latest Contact Info) Description 03/27/2024 14:25 EST Hospital Encounter [facility] [place] [address] [place] [address] Vishal Castillo MD [address] [place] [phone] 03/27/2024 14:25 EST - 03/27/2024 17:55 EST Surgery [facility] OR [address] [place], [place] [address] Vishal Castillo MD [address] [place] [phone] Left Reverse Total Shoulder Arthroplasty [52582 (CPT??)] 04/08/2024 15:30 EST Post-op Visit [facility] Hand & Upper Extremity Program - [address] [place] [address] Vishal Castillo MD [address] [place] [phone] Scheduled Procedures Name Priority Associated Diagnoses Date/Ti me ARTHROPLASTY, SHOULDER, TOTAL Left rotator cuff tear arthropathy 03/27/2024 14:25 EST documented as of this encounter Visit Diagnoses Not on filedocumented in this encounter Care Teams Tattoo Artist Relationship Specialty Start Date End Date Barbara Conway NP [address] [place] [address] PCP - General 08/14/08 07/22/13 documented as of this encounter
--- OUTSIDE RECORDS SUMMARY | 2024-03-18 22:16 | XMS_ITS | Encounter Summary ---
Author Organization [facility] Address [address] [place] [address] Care Team Providers Care Financial Systems Manager Name Role Phone JuanBarbara whitney Myla HUSKER OPERATOR Primary Care Provider [phone] Encounter Details Date Type Department Care Team (Late st Contact Info) Description 05/19/2006 Before PRISM Converted Visit (Maple) [facility] - Maple conversion [address] [place], [place] [address] Arnel Oliva MD 111 [facility], [address] [place] [address] Social History Tobacco Use Types Packs/Day Years Used Date Smoking Tobacco: Never Assessed Comments Unknown Sex and Gender Information Value Date Recorded Sex Assigned at Female 03/08/2024 18:30 EST Legal Sex Female 18:30 EST Gender Identity Female 05/28/2019 8:56 EST Sexual Orientation Not on file documented as of this encounter Progress Notes * Arnel Oliva MD - 05/10/2009 2202 EST DIVISION OF GENERAL SURGERY PROGRESS/FOLLOWUP NOTE - PROBLEM S/P colonoscopy for polyp (she is status post transanal endoscopic microsurgery of early rectal cancer). SUBJECTIVE Patient is doing well, currently with no complaints. She is here today to discuss her pathology. 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 Pathology is discussed at length. I have informed the patient that the polyp was not at the side ofthe cancer but on the opposite rectal wall. 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 ASSESSMENT H/O colorectal cancer currently with a polyp in the rectum, S/P colonoscopic polypectomy. PLAN 1. Flex. sig. in the office in three months. 2. Check CEA every three months. 3. CT scan as she is at the one-year anniversary of her surgery for colorectal cancer. ADDENDUM CEA is 1.7 and patient is informed of the results. Signed by Arnel Oliva MD, FACS 05/24/2006 12:18 Miguel Angel Oliva MD, [id number] A Cataldo, MD, FACS Arnel Oliva MD, FACS [phone] - Arnel Oliva MD, FACS P - cd Job ID: tape Document ID: [id number] cc: MD Ab Damico MD, FACS documented in this encounter Plan of Treatment Upcoming Encounters Date Type Department Care Team (Latest Contact Info) Description 03/27/2024 14:25 EST Hospital Encounter [facility] OR [address] [place] [phone] Vishal Castillo MD [address] [place] [phone] 03/27/2024 14:25 EST - 03/27/2024 17:55 EST Surgery [facility] OR [address] [place] [address] Vishal Castillo MD [address] [place] [phone] Left Reverse Total Shoulder Arthroplasty [22085 (CPT??)] 04/08/2024 15:30 EST Post-op Visit [facility] Hand & Upper Extremity Program - [address] [address] Vishal Castillo MD [address] [place] [phone] Scheduled Procedures Name Priority Associated Diagnoses Date/Ti me ARTHROPLASTY, SHOULDER, TOTAL Left rotator cuff tear arthropathy 03/27/2024 14:25 EST documented as of this encounter Visit Diagnoses Not on filedocumented in this encounter Care Teams Financial Systems Manager Relationship Specialty Start Date End Date Barbara Conway, HUSKER OPERATOR [address] [place] [address] PCP - General 08/14/08 07/22/13 documented as of this encounter
--- OUTSIDE RECORDS SUMMARY | 2024-03-18 22:16 | XMS_ITS | Encounter Summary ---
Author Organization [facility] Address [address] [place] [address] Care Team Providers Care Gas Plant Technician Name Role Phone JuanBarbara whitney Myla MENTAL HEALTH WORKER Primary Care Provider [phone] Encounter Details Date Type Department Care Team (Late st Contact Info) Description 01/09/2006 Before PRISM Converted Visit (Maple) [facility] - Maple conversion [address] [place], [place] [address] [phone] Arnel Oliva MD [address] [facility], [address] [place] [address] Social History Tobacco Use Types Packs/Day Years Used Date Smoking Tobacco: Never Assessed Comments Unknown Sex and Gender Information Value Date Recorded Sex Assigned at Female 03/08/2024 18:30 EST Legal Sex Female 18:30 EST Gender Identity Female 05/28/2019 8:56 EST Sexual Orientation Not on file documented as of this encounter Progress Notes * Arnel Oliva MD - 04/30/2009 0905 EST DIVISION OF GENERAL SURGERY January 13, [address] [place] [address] Dear Ms. Hill, Good news! Your CEA is 1.3. This is entirely within normal limits and indicative of no recurrent colorectal cancer. I hope you continue to do well. I am happy that your anovaginal fistula has resolved. I look forward to seeing you at your next visit. If I may be of any further assistance between now and then, please dont hesitate to contact me. Yours truly, Signed by Arnel Oliva MD, FACS 01/24/2006 09:44 Miguel Angel Oliva MD, [id number] A Cataldo, MD, FACS Arnel Oliva MD, FACS [phone] - Arnel Oliva MD, FACS A - cd Job ID: tape Document ID: [id number] cc: Aretha Hill* * Arnel Oliva MD - 04/28/2009 0511 EST DIVISION OF GENERAL SURGERY PROGRESS/FOLLOWUP NOTE - 01/09/2006 Patient is s/p TEM for early rectal cancer. Margins on final evaluation turned out to be negative. She had a small rectovaginal fistula. She is completely asymptomatic at this time. O: External anal exam is normal. Digital exam reveals the TEM site to be palpable. There is a tiny divot anteriorly but no palpable fistula. A: 1) Doing well s/p TEM. No signs of recurrence. Check CEA today. 2) Anovaginal fistula. Seems to be resolved at this time. PLAN: Patient is fairly asymptomatic. We will continue to follow. Signed by Arnel Oliva MD, FACS 01/13/2006 15:03 Miguel Angel Oliva MD, [id number] A Cataldo, MD, FACS Arnel Oliva MD, FACS [phone] - Arnel Oliva MD, FACS P - errol Job ID: tape Document ID: [id number] cc: MD Ab Damico MD, FACS documented in this encounter Plan of Treatment Upcoming Encounters Date Type Department Care Team (Latest Contact Info) Description 03/27/2024 14:[address] [facility] OR [address] [place] [phone] Vishal Castillo MD [address] [place] [phone] 03/27/2024 14:25 EST - 03/27/2024 17:[address] [facility] OR [address] [place] [phone] Vishal Castillo MD [address] [place] [phone] Left Reverse Total Shoulder Arthroplasty [23060 (CPT??)] 04/08/2024 15:30 EST Post-op Visit [facility] Hand & Upper Extremity Program - [address] [address] Vishal Castillo MD [address] [place] [phone] Scheduled Procedures Name Priority Associated Diagnoses Date/Ti me ARTHROPLASTY, SHOULDER, TOTAL Left rotator cuff tear arthropathy 03/27/2024 14:25 EST documented as of this encounter Visit Diagnoses Not on filedocumented in this encounter Care Teams Gas Plant Technician Relationship Specialty Start Date End Date Barbara Conway NP [address] [place] [address] PCP - General 08/14/08 07/22/13 documented as of this encounter
--- OUTSIDE RECORDS SUMMARY | 2024-03-18 22:16 | XMS_ITS | Encounter Summary ---
Author Organization [facility] Address [address] [place] [address] Care Team Providers Care Waist Presser Name Role Phone JuanBarbara whitney Myla PRINCIPAL LIBRARIAN Primary Care Provider [phone] Encounter Details Date Type Department Care Team (Late st Contact Info) Description 06/27/2006 Before PRISM Converted Visit (Maple) [facility] - Maple conversion [address] [place], [place] [address] [phone] Anrel Oliva MD 111 [facility], [address] [place] [address] Social History Tobacco Use Types Packs/Day Years Used Date Smoking Tobacco: Never Assessed Comments Unknown Sex and Gender Information Value Date Recorded Sex Assigned at Female 03/08/2024 18:30 EST Legal Sex Female 18:30 EST Gender Identity Female 05/28/2019 8:56 EST Sexual Orientation Not on file documented as of this encounter Progress Notes * Arnel Oliva MD - 02/24/2009 0940 EST DIVISION OF GENERAL SURGERY June [birth year], 2006 [address] [place] [address] Dear Ms. Hill: Good news! No sign of any recurrent rectal cancer was found on your CT scan! There was a small cyston your right ovary. The radiologist recommended an ultrasound. I would recommend that you followupwith your primary care doctor or your gynecologistto have this done. If you have any questions, feel free to call me. I look forward to seeing you at your next visit. Once again, congratulations on the good news. Yours truly, Signed by Arnel Oliva MD, FACS 06/28/2006 16:49 Miguel Angel Oliva MD, [id number] A Cataldo, MD, FACS Arnel Oliva MD, FACS [phone] - Arnel Oliva MD, FACS A - cd Job ID: tape Document ID: [id number] cc: MD Aretha Damico* documented in this encounter Plan of Treatment Upcoming Encounters Date Type Department Care Team (Latest Contact Info) Description 03/27/2024 14:25 EST Hospital Encounter [facility] OR [address] [place] [phone] Vishal Castillo MD [address] [place] [phone] 03/27/2024 14:25 EST - 03/27/2024 17:55 EST Surgery [facility] OR [address] [place] [phone] Vishal Castillo MD [address] [place] [phone] Left Reverse Total Shoulder Arthroplasty [85812 (CPT??)] 04/08/2024 15:30 EST Post-op Visit [facility] Hand & Upper Extremity Program - [address] [place] [address] Vishal Castillo MD [address] [place] [phone] Scheduled Procedures Name Priority Associated Diagnoses Date/Ti me ARTHROPLASTY, SHOULDER, TOTAL Left rotator cuff tear arthropathy 03/27/2024 14:25 EST documented as of this encounter Visit Diagnoses Not on filedocumented in this encounter Care Teams Waist Presser Relationship Specialty Start Date End Date Barbara Conway, PRINCIPAL LIBRARIAN [address] [place] [address] PCP - General 08/14/08 07/22/13 documented as of this encounter
--- OUTSIDE RECORDS SUMMARY | 2024-03-18 22:16 | XMS_ITS | Encounter Summary ---
Author Organization [facility] Address [address] [place] [address] Care Team Providers Care Wagon Driller Name Role Phone Barbara Conway Myla STEWARD RACETRACK Primary Care Provider [phone] Encounter Details Date Type Department Care Team (Late st Contact Info) Description 08/11/2005 Results Only [facility] Surgery - [address] [phone] Arnel Oliva MD 111 [facility], [address] [place] [phone] Social History Tobacco Use Types Packs/Day Years [...] EST Hospital Encounter [facility] OR [address] [place] [phone] Vishal Castillo MD [address] [place] [phone] 03/27/2024 14:25 EST - 03/27/2024 17:55 EST Surgery [facility] OR [address] [place], [place] [phone] Vishal Castillo MD [address] [place] [phone] Left Reverse Total Shoulder Arthroplasty [94980 (CPT??)] 04/08/2024 15:30 EST Post-op Visit [facility] Hand & Upper Extremity Program - [address] [place] [address] Vishal Castillo MD [address] [place] [phone] Scheduled Procedures Name Priority Associated Diagnoses Date/Ti me ARTHROPLASTY, SHOULDER, TOTAL Left rotator cuff tear arthropathy 03/27/2024 14:25 EST documented as of this encounter Procedures Procedure Name Priority Date/Time Associated Diagnosis Comments PROTIME Routine 08/11/2005 14:23 EDT documented in this encounter Results * PROTIME (08/11/2005 14:23 EDT) Pro Time 13.5 12.0 - 15.0 secs [facility] I.N.R. 1.0 0.9 - 1.1 Ratio [facility] Comment: Moderate Intensity Coumadin INR = 2.0-3.0 Adjustments in anticoagulant therapy dose should be based upon the INR and NOT the Pro Time. 08/11/2005 14:2 3 EDT 08/11/2005 14:23 EDT us Arnel Oliav MD HEMATOLOGY & PF4 ORDERABLES F inal Result [facility] [address] [place] [address] documented in this encounter Visit Diagnoses Not on filedocumented in this encounter Care Teams Wagon Driller Relationship Specialty Start Date End Date Barbara Conway NP [address] [place] [address] PCP - General 08/14/08 07/22/13 documented as of this encounter
--- OUTSIDE RECORDS SUMMARY | 2024-03-18 22:16 | XMS_ITS | Encounter Summary ---
Author Organization [facility] Address [address] [place] [address] Care Team Providers Care Heavy Machinery Assembler Name Role Phone Unavailable Primary Care Provider Unavailabl e Encounter Details Date Type Department Care Team (Late st Contact Info) Description 07/27/2005 8:21 EDT - 07/27/2005 11:59 EDT Hospital Encounter [address] [address] Arnel Oliva MD 111 [facility], [address] [place] [phone] Discharge Disposition: Auto Discharge Social History Tobacco [...] Encounter [facility] OR [address] [place] [phone] Vishal Castillo MD [address] [place] [phone] 03/27/2024 14:25 EST - 03/27/2024 17:55 EST Surgery [facility] OR [address] [place] [phone] Vishal Castillo MD [address] [place] [phone] Left Reverse Total Shoulder Arthroplasty [74612 (CPT??)] 04/08/2024 15:30 EST Post-op Visit [facility] Hand & Upper Extremity Program - [address] [phone] Vishal Castillo MD [address] [place] [phone] Scheduled Procedures Name Priority Associated Diagnoses Date/Ti me ARTHROPLASTY, SHOULDER, TOTAL Left rotator cuff tear arthropathy 03/27/2024 14:25 EST documented as of this encounter Procedures Procedure Name Priority Date/Time Associated Diagnosis Comments CT CHEST WO CONTRAST 07/27/2005 8:57 EDT documented in this encounter Results * CT CHEST WO CONTRAST (07/27/2005 8:57 EDT) Anatomical Region Laterality Modality Other 07/27/2005 8:57 EDT Narrative 11/08/2008 12:40 EDT LUNG NODULE, RECTAL CA CT CHEST WITHOUT CONTRAST 07/27/05 COMPARISON: 05/13/05 INDICATION: rectal cancer, evaluate for change of lung nodules. TECHNIQUE: Non-contrast CT of the chest was performed with 1mm axial slice thickness of the mid chest to the lower chest. Please note that the apices are not included. FINDINGS: Compared to the prior, again seen are multiple lung nodules. ??One nodule in the left lower lobe of 7mm (image 42) is larger (prior of 6mm). ??The largest nodule in the right lower lobe (image 52) measures 10mm currently (prior of 8mm). ?? Multiple other scattered nodules in both lungs are either stable or minimally larger. Two lymph nodes are adjacent to the lower esophagus near the GE junction on image 98 without change. IMPRESSION: ? 1. The study does not include the apices but still shows again multiple bilateral lung nodules with the two largest ones in the lower lobes that have slightly increased in size compared to May 13, 2005. D 07/27/05 T 07/28/05 /елена I have personally reviewed the images and the above interpretation and agree with the findings. Procedure Note Prem Edmonds MD / Arnel Gross MD - 11/08/2008 LUNG NODULE, RECTAL CA CT CHEST WITHOUT CONTRAST 07/27/05 COMPARISON: 05/13/05 INDICATION: rectal cancer, evaluate for change of lung nodules. TECHNIQUE: Non-contrast CT of the chest was performed with 1mm axial slice thickness of the mid chest to the lower chest. Please note that the apices are not included. FINDINGS: Compared to the prior, again seen are multiple lung nodules. One nodule in the left lower lobe of 7mm (image 42) is larger (prior of 6mm). The largest nodule in the right lower lobe (image 52) measures 10mm currently (prior of 8mm). Multiple other scattered nodules in both lungs are either stable or minimally larger. Two lymph nodes are adjacent to the lower esophagus near the GE junction on image 98 without change. IMPRESSION: 1. The study does not include the apices but still shows again multiple bilateral lung nodules with the two largest ones in the lower lobes that have slightly increased in size compared to May 13, 2005. D 07/27/05 T 07/28/05 /елена I have personally reviewed the images and the above interpretation and agree with the findings. us Arnel Oliva MD IMG CT ORDERABLES Final Resul t documented in this encounter Visit Diagnoses Not on filedocumented in this encounter
--- OUTSIDE RECORDS SUMMARY | 2024-03-18 22:16 | XMS_ITS | Encounter Summary ---
Author Organization [facility] Address [address] [place] [address] Care Team Providers Care Senior Telecommunications Specialist Name Role Phone Barbara Conway Myla PAPER TUBE CUTTER Primary Care Provider [phone] Encounter Details Date Type Department Care Team (Late st Contact Info) Description 07/14/2006 Results Only [facility] - Maple conversion [address] [place] [phone] Angel Crews MD Social History Tobacco Use Types [...] Description 03/27/2024 14:25 EST Hospital Encounter [facility] [place] [address] [place] [address] [phone] Vishal Castillo MD [address] [place] [phone] 03/27/2024 14:25 EST - 03/27/2024 17:55 EST Surgery [facility] OR [address] [place] [address] [phone] Vishal Castillo MD [address] [place] [phone] Left Reverse Total Shoulder Arthroplasty [16984 (CPT??)] 04/08/2024 15:30 EST Post-op Visit [facility] & Upper Extremity [facility] - [facility] [address] [place] [address] Vishal Castillo MD [address] [place] [phone] Scheduled Procedures Name Priority Associated Diagnoses Date/Ti me ARTHROPLASTY, SHOULDER, TOTAL Left rotator cuff tear arthropathy 03/27/2024 14:25 EST documented as of this encounter Procedures Procedure Name Priority Date/Time Associated Diagnosis Comments CYTOPATHOLOGY Routine 07/14/2006 0:00 EDT documented in this encounter Results * CYTOPATHOLOGY (07/14/2006 0:00 EDT) Pathology Report: CYTOPATHOLOGY REPORT Reports generated via electronic interface contain original data; however they are lacking the format of the original report. Caution should be taken when reading/interpreti ng unformatted reports. Name: ? ARETHA HILL ? Accession #: ? [id number] : ? 1945 (Age: 61) ??F ?Collect Date: ? 07/14/2006 Location: ? [facility] ? Receive Date: ? 07/17/2006 Provider: ?ANGEL CREWS MD Copy to: ? Specimen/Source: ?ThinPrep Pap Test, Endocervix, processed on Lust have it! ThinPrep Imaging System, with manual evaluation Last Menstrual Period: ? Other: ? Additional clinical information: Patient has a rectal vaginal fistula and a HO Rectal CA HPVA - HPV testing requested if ASC-US on the current ThinPrep Pap test. ? SPECIMEN ADEQUACY ? Satisfactory for Evaluation - assessment of transformation zone component not applicable ( e.g. atrophy, vaginal sample, hysterectomy) GENERAL CATEGORIZATION ? Negative for Intraepithelial Lesion or Malignancy ? Document reviewed and electronically signed by: ? CARLEE Mishra(ASCP) ? Report Date: ??07/19/2006 08:53 End of Report [facility] 07/14/2006 07/17/2006 us Angel Crews MD PATHOLOGY ORDERABLES Final Result Performing Organization Address City/State/[facility] Co de Phone Number [facility] [address] [place] [address] documented in this encounter Visit Diagnoses Not on filedocumented in this encounter Care Teams Senior Telecommunications Specialist Relationship Specialty Start Date End Date Barbara Conway NP [address] [place] [address] PCP - General 08/14/08 07/22/13 documented as of this encounter
--- OUTSIDE RECORDS SUMMARY | 2024-03-18 22:16 | XMS_ITS | Encounter Summary ---
Author Organization [facility] Address [address] [place] [address] Care Team Providers Care Copying Machine Repairer Name Role Phone Unavailable Primary Care Provider Unavailabl e Encounter Details Date Type Department Care Team (Latest Contact Info) Description 05/13/2005 14:28 EST Hospital Encounter [facility] [address] [place] [address] Ab Crisostomo MD [address] [place] [phone] Discharge Disposition: Auto Discharge Social History Tobacco [...] Encounter [facility] OR [address] [place], [place] [phone] Vishal Castillo MD [address] [place] [phone] 03/27/2024 14:25 EST - 03/27/2024 17:55 EST Surgery [facility] OR [address] [place] [phone] Vishal Castillo MD [address] [place] [phone] Left Reverse Total Shoulder Arthroplasty [19756 (CPT??)] 04/08/2024 15:30 EST Post-op Visit [facility] Hand & Upper Extremity Program - [address] [address] Vishal Castillo MD [address] [place] [phone] Scheduled Procedures Name Priority Associated Diagnoses Date/Ti me ARTHROPLASTY, SHOULDER, TOTAL Left rotator cuff tear arthropathy 03/27/2024 14:25 EST documented as of this encounter Procedures Procedure Name Priority Date/Time Associated Diagnosis Comments CT CHEST, ABDOMEN, PELVIS W CONTRAST 05/13/2005 16:53 EST documented in this encounter Results * CT CHEST, ABDOMEN, PELVIS W CONTRAST (05/13/2005 16:53 EST) Anatomical Region Laterality Modality Other 05/13/2005 16:5 3 EST Narrative 11/21/2008 3:[address] CHEST, ABDOMEN, AND PELVIS: 05/13/05. 1630. CLINICAL INFORMATION: Rectal carcinoma, rule out metastases. CHEST TECHNIQUE: Prior to the examination, the patient was given oral contrast and rectal contrast. ??During the intravenous administration of 150 cc of 300 mg/cc nonionic contrast material at a rate of 2 cc/second, helical images were obtained from the thoracic inlet through the entire chest. ABDOMEN TECHNIQUE: Immediately after the above preparation, helical images were obtained from the domes of the diaphragms to the iliac crests. PELVIS TECHNIQUE: Immediately after the above preparation, axial images were obtained from the iliac crests to the ischial tuberosities. COMPARISON: None. FINDINGS: There is a polypoid mass in the distal rectum measuring 3 x 2 cm, image 211, compatible with the patient's state primary tumor. There is no sign of perirectal extension or perirectal adenopathy. The uterus and adnexa are within normal limits as is the urinary bladder.There are no pathologically enlarged lymph nodes within the pelvis or retroperitoneum. There is no bowel obstruction, and the remaining portions of the bowel are within normal limits with the exception of a small hiatal hernia. ??The liver is notable only for a 6 mm cyst superior to the falciform ligament. ??This remains sharply marginated on the delayed images. There are no findings to suggest metastatic disease to the liver. The gallbladder, spleen, pancreas, adrenal glands, and kidneys are all within normal limits. Evaluation of the chest shows a 2.5 mm soft tissue nodule in the middle lobe, image 77. ??There is an additional 2 mm nodule more superior in the middle lobe, image 66. ??There is a 2 mm subpleural nodule in the medial right lower lobe, image 69. ??More inferiorly in the medial right lower lobe is a 6 mm subpleural nodule, image 87. On image 86 in the medial left lower lobe is an additional 6 mm ovoid nodule. ??There is a 2 mm nodule in the left lower lobe, image 88. ??A 3 mm nodule is present at the inferior aspect of the middle lobe, image 83. ??There are no pleural or pericardial effusions. ??There are no pathologically enlarged mediastinal or hilar lymph nodes. There are no calcified granulomata. ??On the initial images, there is a 2 cm hypodense but noncystic nodule in the left lobe of the thyroid, incompletely imaged. There may be a subcentimeter nodule in the inferior aspect of the right lobe. Evaluation of the osseous structures shows relatively mild multilevel degenerative changes but no convincing evidence of osteolytic or osteoblastic metastases. IMPRESSION: 1. Visualization of the rectal mass without evidence of local extension or adenopathy. 2. Scattered subcentimeter pulmonary nodules as described above without stigmata of granulomatous disease and, therefore, raising the suspicion of pulmonary metastases. 3. Left lobe 2 cm thyroid nodule incompletely imaged. Followup ultrasound examination and possible biopsy recommended. 4. Tiny hepatic cyst. 5. Small hiatal hernia. D: ??05/13/05 T: ??05/16/05 /lds. Procedure Note Bright Anand MD - 11/21/[address] CHEST, ABDOMEN, AND PELVIS: 05/13/05. 1630. CLINICAL INFORMATION: Rectal carcinoma, rule out metastases. CHEST TECHNIQUE: Prior to the examination, the patient was given oral contrast and rectal contrast. During the intravenous administration of 150 cc of 300 mg/cc nonionic contrast material at a rate of 2 cc/second, helical images were obtained from the thoracic inlet through the entire chest. ABDOMEN TECHNIQUE: Immediately after the above preparation, helical images were obtained from the domes of the diaphragms to the iliac crests. PELVIS TECHNIQUE: Immediately after the above preparation, axial images were obtained from the iliac crests to the ischial tuberosities. COMPARISON: None. FINDINGS: There is a polypoid mass in the distal rectum measuring 3 x 2 cm, image 211, compatible with the patient's state primary tumor. There is no sign of perirectal extension or perirectal adenopathy. The uterus and adnexa are within normal limits as is the urinary bladder.There are no pathologically enlarged lymph nodes within the pelvis or retroperitoneum. There is no bowel obstruction, and the remaining portions of the bowel are within normal limits with the exception of a small hiatal hernia. The liver is notable only for a 6 mm cyst superior to the falciform ligament. This remains sharply marginated on the delayed images. There are no findings to suggest metastatic disease to the liver. The gallbladder, spleen, pancreas, adrenal glands, and kidneys are all within normal limits. Evaluation of the chest shows a 2.5 mm soft tissue nodule in the middle lobe, image 77. There is an additional 2 mm nodule more superior in the middle lobe, image 66. There is a 2 mm subpleural nodule in the medial right lower lobe, image 69. More inferiorly in the medial right lower lobe is a 6 mm subpleural nodule, image 87. On image 86 in the medial left lower lobe is an additional 6 mm ovoid nodule. There is a 2 mm nodule in the left lower lobe, image 88. A 3 mm nodule is present at the inferior aspect of the middle lobe, image 83. There are no pleural or pericardial effusions. There are no pathologically enlarged mediastinal or hilar lymph nodes. There are no calcified granulomata. On the initial images, there is a 2 cm hypodense but noncystic nodule in the left lobe of the thyroid, incompletely imaged. There may be a subcentimeter nodule in the inferior aspect of the right lobe. Evaluation of the osseous structures shows relatively mild multilevel degenerative changes but no convincing evidence of osteolytic or osteoblastic metastases. IMPRESSION: 1. Visualization of the rectal mass without evidence of local extension or adenopathy. 2. Scattered subcentimeter pulmonary nodules as described above without stigmata of granulomatous disease and, therefore, raising the suspicion of pulmonary metastases. 3. Left lobe 2 cm thyroid nodule incompletely imaged. Followup ultrasound examination and possible biopsy recommended. 4. Tiny hepatic cyst. 5. Small hiatal hernia. /lds. Ab Crisostomo MD IMG CT ORDERABLES Final Result documented in this encounter Visit Diagnoses Not on filedocumented in this encounter
--- OUTSIDE RECORDS SUMMARY | 2024-03-18 22:16 | XMS_ITS | Encounter Summary ---
Author Organization [facility] Address [address] [place] [address] Care Team Providers Care Set O Type Operator Name Role Phone Unavailable Primary Care Provider Unavailabl e Encounter Details Date Type Department Care Team (Late st Contact Info) Description 10/13/2005 13:39 EDT Hospital Encounter [facility] - Other [address] [place] [address] Arnel Oliva MD [address] [facility], [address] [place] [phone] Discharge Disposition: Home or Self Care Social [...] Hospital Encounter [facility] OR [address] [place], [place] [phone] Vishal Castillo MD [address] [place] [phone] 03/27/2024 14:25 EST - 03/27/2024 17:55 EST Surgery [facility] OR [address] [place], [place] [phone] Vishal Castillo MD [address] [place] [phone] Left Reverse Total Shoulder Arthroplasty [41256 (CPT??)] 04/08/2024 15:30 EST Post-op Visit [facility] Hand & Upper Extremity Program - [address] [address] Vishal Castillo MD [address] [place] [phone] Scheduled Procedures Name Priority Associated Diagnoses Date/Ti me ARTHROPLASTY, SHOULDER, TOTAL Left rotator cuff tear arthropathy 03/27/2024 14:25 EST documented as of this encounter Procedures Procedure Name Priority Date/Time Associated Diagnosis Comments CEA REPEAT Routine 10/13/2005 11:34 EDT documented in this encounter Results * CEA REPEAT (10/13/2005 11:34 EDT) CEA 1.0 ng/ml [facility] Comment: % Distribution of CEA (ng/ml) 0-2.5 in 98.2% of non-smokers and 87.3% of smokers 2.6-5.0 in 1.8% of non-smokers and 8.0% of smokers 5.1-10.1 in 4.7% of smokers Serum CEA concentration should not be interpreted as absolute evidence for the presence or absence of malignant disease. Assayed utilizing [employer] chemiluminescent technology. Values obtained by using different assay methods cannot be used interchangeably. 10/13/2005 11:3 4 EDT 10/14/2005 11:41 EDT us Arnel Oliva MD CHEMISTRY & BLOOD GAS ORDERAB LES Final Result [facility] [address] [place] [address] documented in this encounter Visit Diagnoses Not on filedocumented in this encounter
--- OUTSIDE RECORDS SUMMARY | 2024-03-18 22:16 | XMS_ITS | Encounter Summary ---
Author Organization [facility] Address [address] [place] [address] Care Team Providers Care Investment Strategist Name Role Phone Unavailable Primary Care Provider Unavailabl e Encounter Details Date Type Department Care Team (Late st Contact Info) Description 06/10/2005 9:22 EST Hospital Encounter [facility] [address] [place] [address] Arnel Oliva MD [address] [place] [address], [address] [place] [phone] Social History Tobacco Use Types Packs/Day Years [...] EST Hospital Encounter [facility] OR [address] [place] [address] Vishal Castillo MD [address] [place] [phone] 03/27/2024 14:25 EST - 03/27/2024 17:55 EST Surgery [facility] OR [address] [place] [address] Vishal Castillo MD [address] [place] [phone] Left Reverse Total Shoulder Arthroplasty [54213 (CPT??)] 04/08/2024 15:30 EST Post-op Visit [facility] Hand & Upper Extremity Program - [address] [address] Vishal Castillo MD [address] [place] [phone] Scheduled Procedures Name Priority Associated Diagnoses Date/Ti me ARTHROPLASTY, SHOULDER, TOTAL Left rotator cuff tear arthropathy 03/27/2024 14:25 EST documented as of this encounter Visit Diagnoses Not on filedocumented in this encounter Additional Health Concerns Infection Onset Date Last Indicated Resolved Time R/O COVID-19 10/24/2019 10/24/2019 10/28/2019 10:3 2 EDT documented as of this encounter
--- OUTSIDE RECORDS SUMMARY | 2024-03-18 22:16 | XMS_ITS | Encounter Summary ---
Author Organization [facility] Address [address] [place] [address] Care Team Providers Care Neurology Physician Assistant Name Role Phone Barbara Conway Myla MACHINE ASSISTANT Primary Care Provider [phone] Encounter Details Date Type Department Care Team (Late st Contact Info) Description 08/17/2005 Results Only [facility] - Maple conversion [address] [place] [phone] Iraida Crews MD Social History Tobacco Use [...] Info) Description 03/27/2024 14:25 EST Hospital Encounter [facility] OR [address] [place] [phone] Vishal Castillo MD [address] [place] [phone] 03/27/2024 14:25 EST - 03/27/2024 17:55 EST Surgery [facility] OR [address] [place] [phone] Vishal Castillo MD [address] [place] [phone] Left Reverse Total Shoulder Arthroplasty [79854 (CPT??)] 04/08/2024 15:30 EST Post-op Visit [facility] Hand & Upper Extremity Program - [facility] [address] [place] [address] Vishal Castillo MD [address] [place] [phone] Scheduled Procedures Name Priority Associated Diagnoses Date/Ti me ARTHROPLASTY, SHOULDER, TOTAL Left rotator cuff tear arthropathy 03/27/2024 14:25 EST documented as of this encounter Procedures Procedure Name Priority Date/Time Associated Diagnosis Comments TSH Routine 08/17/2005 11:37 EDT HEMOGLOBIN A1C Routine 08/17/2005 11:37 EDT LIPID PROFILE (INCLUDES CHOLESTEROL, TRIGLYCERIDES, HDL, LDL) Routine 08/17/2005 11:37 EDT documented in this encounter Results * TSH (08/17/2005 11:37 EDT) TSH 1.72 0.35 - 5.00 uIU/mL [facility] 08/17/2005 11:3 7 EDT 08/17/2005 11:37 EDT Iraida Crews MD CHEMISTRY & BLOOD GAS SUGAR RAINEY Final Result [facility] [address] [place] [address] * LIPID PROFILE (INCLUDES CHOLESTEROL, TRIGLYCERIDES, HDL, LDL) (08/17/2005 11:37 EDT) Cholesterol 149 mg/dl [facility] Comment: Desirable:<200 Borderline:200-239 High Risk:>cg=275 Triglycerides 85 35 - 160 mg/dl [facility] HDL 66 mg/dl [facility] Comment: Highly Desirable:>60 Desirable:35-60 High Risk:<35 LDL, Calculated 66 mg/dl [facility] Comment: Desirable:<130 Borderline:130-159 High Risk:>oq=545 Chol/HDL Ratio 2.3 FLE [facility] Fasting? Yes [facility] 08/17/2005 11:3 7 EDT 08/17/2005 11:37 EDT Iraida Crews MD CHEMISTRY & BLOOD GAS ORDE RABJUVENAL Final Result Performing Organization Address [facility] de Phone Number [facility] [address] [place] [address] * HEMOGLOBIN A1C (08/17/2005 11:37 EDT) Hemoglobin A1C 6.3 % [facility] Comment: Reference Range: <6% Normal Range <7% Recommended goal by ADA guidelines 7-8% Suboptimal by ADA guidelines >8% Further action suggested by ADA guidelines 08/17/2005 11:3 7 EDT 08/17/2005 11:37 EDT Iraida Crews MD CHEMISTRY & BLOOD GAS ORDE RABLES Final Result Performing Organization Address [facility] de Phone Number [facility] [address] [place] [address] documented in this encounter Visit Diagnoses Not on filedocumented in this encounter Care Teams Neurology Physician Assistant Relationship Specialty Start Date End Date Barbara Conway NP [address] [place] [address] PCP - General 08/14/08 07/22/13 documented as of this encounter
--- OUTSIDE RECORDS SUMMARY | 2024-03-18 22:16 | XMS_ITS | Encounter Summary ---
Author Organization [facility] Address [address] [place] [address] Care Team Providers Care Shellfish Checker Name Role Phone Barbara Conway Myla AD OPERATIONS COORDINATOR Primary Care Provider [phone] Encounter Details Date Type Department Care Team (Late st Contact Info) Description 10/14/2005 Before PRISM Converted Visit ([facility]) [facility] - Maple conversion [address] [place], [place] [phone] Arnel Oliva MD [address] [facility], [address] [place] [address] Social History Tobacco Use Types Packs/Day Years Used Date Smoking Tobacco: Never Assessed Comments Unknown Sex and Gender Information Value Date Recorded Sex Assigned at Female 03/08/2024 18:30 EST Legal Sex Female 18:30 EST Gender Identity Female 05/28/2019 8:56 EST Sexual Orientation Not on file documented as of this encounter Progress Notes * Arnel Oliva MD - 04/17/2009 1043 EST DIVISION OF GENERAL SURGERY September MS. ARETHA HILL [address] [place] [address] Dear Ms. Hill, Good news! Your CEA is 1.0. This is entirely within normal limits and indicative of no recurrent rectal cancer. I hope you continue to do well. I look forward to seeing you at your next scheduled visit. If I may be of any further assistance, please dont hesitate to contact me. Yours truly, Signed by Arnel Oliva MD, FACS 11/04/2005 09:03 Miguel Angel Oliva MD, [id number] A Cataldo, MD, FACS Arnel Oliva MD, FACS [phone] - Arnel Oliva MD, FACS P - cd Job ID: tape Document ID: [id number] cc: Aretha Hill* * Arnel Oliva MD - 04/03/2009 1253 EST DIVISION OF GENERAL SURGERY PROGRESS/FOLLOWUP NOTE - P: S/P TEM FOR RECTAL CANCER WITHIN THE SUBMUCOSA S: Final determination was nodules were negative, no lymphovascular invasion, no adverse histologicfeatures. 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 Patient is now doing well, perfect control, occasional flatus per vagina, no other complaints. CT scan was performed and subsequent biopsy to evaluate pulmonary nodule which turned out to be benign disease. O: Abdomen benign. External anal exam is normal. Digital exam reveals good sphincter tone, nice contraction of puborectalis and external anal sphincter. There is a tiny anterior irregular area which perhaps represents the fistula. A: Doing well S/P TEM, minimally symptomatic fistula, no signs of recurrent disease. P: Check CEA today, follow-up in three months for repeat physical exam and CEA, repeat CT scan of the chest in six months. Signed by Arnel Oliva MD, FACS 10/24/2005 12:37 Miguel Angel Oliva MD, [phone] A Cataldo, MD, FACS Arnel Oliva MD, FACS [phone] - Arnel Oliva MD, FACS P - cd Job ID: tape Document ID: [id number] cc: MD Iraida Silva MD Neil H Hyman, MD, FACS documented in this encounter Plan of Treatment Upcoming Encounters Date Type Department Care Team (Latest Contact Info) Description 03/27/2024 14:25 EST Hospital Encounter [facility] OR [address] [place] [phone] Vishal Castillo MD [address] [place] [phone] 03/27/2024 14:25 EST - 03/27/2024 17:55 EST Surgery [facility] OR [address] [place] [address] [phone] Vishal Castillo MD [address] [place] [phone] Left Reverse Total Shoulder Arthroplasty [96399 (CPT??)] 04/08/2024 15:30 EST Post-op Visit [facility] Hand & Upper Extremity Program - [address] [address] Vishal Castillo MD [address] [place] [phone] Scheduled Procedures Name Priority Associated Diagnoses Date/Ti me ARTHROPLASTY, SHOULDER, TOTAL Left rotator cuff tear arthropathy 03/27/2024 14:25 EST documented as of this encounter Visit Diagnoses Not on filedocumented in this encounter Care Teams Shellfish Checker Relationship Specialty Start Date End Date Barbara Conway NP [address] [facility] [place], [place] [address] PCP - General 08/14/08 07/22/13 documented as of this encounter
--- OUTSIDE RECORDS SUMMARY | 2024-03-18 22:16 | XMS_ITS | Encounter Summary ---
Author Organization [facility] Address [address] [place] [address] Care Team Providers Care Firer Marine Name Role Phone Unavailable Primary Care Provider Unavailabl e Encounter Details Date Type Department Care Team (Late st Contact Info) Description 07/05/2005 6:46 EST - 07/05/2005 11:59 EST Hospital Encounter [facility] Perioperative Services- [address] [address] Arnel Oliva MD [address] [facility], [address] [place] [address] Discharge Disposition: Home or Self [...] OR Surgeon - Arnel Oliva MD - 07/05/2005 0000 EST PROCEDURE REPORT PT TYPE: OPPROC PT LOC: [id number] SERVICE DATE: 07/05/2005 SURGEON: Miguel Angel Oliva MD, Skyler Oliva MD, Skyler Oliva MD, FACS RIGGING SUPERVISOR: Yousif Campbell MD PREOPERATIVE DIAGNOSIS: Status post transanal endoscopic microsurgery for rectal cancer with questioned positive margin. POSTOPERATIVE DIAGNOSIS: Status post transanal endoscopic microsurgery for rectal cancer with questioned positive margin with questioned anovaginal fistula at transanal endoscopic microsurgery site. PROCEDURE: Examination under anesthesia, anal biopsy, and fine-needle aspirate. ANESTHESIA: Local with sedation. INDICATIONS: The patient is a female who underwent a TEM for rectal cancer. Pathology revealed T1 disease. The patient had a full-thickness excision and originally the margins were described as positive. Pathology was reviewed, as it seemed improbable that a full-thickness excision could reveal a deep positive margin for a T1 lesion. On further review, the margins were determined to be negative. It was felt that a specimen artifact was responsible for the prior positive margin. Because of this,we felt examination under anesthesia was appropriate to rule out any persistent disease, although it was unlikely. In the preop hold area, the patient mentioned she may have noted some of the enema liquid per her vagina; therefore, we also planned to explore to look for an anovaginal fistula, but not to treat it at this time. FINDINGS: 1. TEM site intact with no areas of significant irregularity. 2. Small opening in the anterolateral aspect of the TEM site, which may have been the opening to the vagina (this was intentionally not probed). 3. Biopsy of TEM site at three locations with no specific areas. 4. FNA times 3, anterior mid and posterior portions of the TEM site. NARRATIVE: After satisfactory intravenous sedation, the patient placed in the left lateral decubitus position. A standard anal block was performed. The patient was then prepped and draped in sterile fashion. The anal area was inspected with palpation and with visualization. There was a tiny 0.5 x 0.5-cm area, which was opened in the anterior aspect of the TEM closure, which may have been the rectalopening to the vagina. This was not probed. A small area of mucosa was excised in this region, as well as along the TEM suture line. A third portion was excised slightly deeper. No tissue specimens were taken near the vaginal wall. The specimens were sent for pathology. Needle aspirate was performed times 3 with 25-gauge needle and a 10-cc syringe and sent for cytologic evaluation. The procedure was then terminated. The patient tolerated the procedure well. There was no significant hemorrhage. ESTIMATED BLOOD LOSS: Minimal. FLUIDS: 650. COMPLICATIONS: None. DRAINS: None. Signed by Arnel Oliva MD, FACS 07/11/2005 16:37 Miguel Angel Oliva MD, [id number] A Cataldo, MD, FACS Arnel Oliva MD, FACS [phone] - Arnel Oliva MD, FACS A - ss Job ID: [id number] Document ID: [id number] cc: Arnel Oliva MD, FACS MD Bird Bright MD Neil H Hyman, MD, FACS Cancer Data Registry Papo Godoy MD documented in this encounter Plan of Treatment Upcoming Encounters Date Type Department Care Team (Latest Contact Info) Description 03/27/2024 14:25 EST Hospital Encounter [facility] OR [address] [place] [phone] Vishal Castillo MD [address] [place] [phone] 03/27/2024 14:25 EST - 03/27/2024 17:55 EST Surgery [facility] OR [address] [place] [address] Vishal Castillo MD [address] [place] [phone] Left Reverse Total Shoulder Arthroplasty [28113 (CPT??)] 04/08/2024 15:30 EST Post-op Visit [facility] Hand & Upper Extremity Program - [facility] [address] [place] [address] Vishal Castillo MD [address] [place] [phone] Scheduled Procedures Name Priority Associated Diagnoses Date/Ti me ARTHROPLASTY, SHOULDER, TOTAL Left rotator cuff tear arthropathy 03/27/2024 14:25 EST documented as of this encounter Procedures Procedure Name Priority Date/Time Associated Diagnosis Comments GLUCOSE, GLUCOMETER Routine 07/05/2005 8 :13 EST documented in this encounter Results * (ABNORMAL) GLUCOSE, GLUCOMETER (07/05/2005 8:13 EST) Glucose, Fingerstick 121(H) 70 - 110 mg/dl [facility] Pretzel Packer [place] [id number] Test Performed by Nursing Services [facility] 07/05/2005 8:13 EST 07/06/2005 5:05 EST us Arnel Oliva MD CHEMISTRY & BLOOD GAS ORDERAB LES Final Result [facility] [address] [place] [address] documented in this encounter Visit Diagnoses Not on filedocumented in this encounter
--- OUTSIDE RECORDS SUMMARY | 2024-03-18 22:17 | XMS_ITS | Encounter Summary ---
Author Organization [facility] Address [address] [place] [address] Care Team Providers Care Weight Trainer Name Role Phone Unavailable Primary Care Provider Unavailabl e Encounter Details Date Type Department Care Team (Latest Contact Info) Description 05/06/2005 1:11 EST - 05/06/2005 11:59 EST Hospital Encounter [facility] [place] [address] Emergency, Default, MD Discharge Disposition: Home or [...] Info) Description 03/27/2024 14:25 EST Hospital Encounter [facility] OR [address] [place] [phone] Vishal Castillo MD [address] [place] [phone] 03/27/2024 14:25 EST - 03/27/2024 17:55 EST Surgery [facility] [place] OR [address] [place] [address] Vishal Castillo MD [address] [place] [phone] Left Reverse Total Shoulder Arthroplasty [25703 (CPT??)] 04/08/2024 15:30 EST Post-op Visit [facility] Hand & Upper Extremity Program - [address] [address] Vishal Castillo MD [address] [place] [phone] Scheduled Procedures Name Priority Associated Diagnoses Date/Ti me ARTHROPLASTY, SHOULDER, TOTAL Left rotator cuff tear arthropathy 03/27/2024 14:25 EST documented as of this encounter Visit Diagnoses Not on filedocumented in this encounter
--- OUTSIDE RECORDS SUMMARY | 2024-03-18 22:17 | XMS_ITS | Encounter Summary ---
Author Organization [facility] Address [address] [place] [address] Care Team Providers Care Casing Sewer Name Role Phone Unavailable Primary Care Provider Unavailabl e Encounter Details Date Type Department Care Team (Late st Contact Info) Description 05/05/2005 20:25 EST Hospital Encounter [facility] - Other [address] [place] [address] Papo Godoy MD [address] [place] [phone] Discharge Disposition: Home or Self Care Social [...] Info) Description 03/27/2024 14:25 EST Hospital Encounter [facility] OR [address] [place], [place] [phone] Vishal Castillo MD [address] [place] [address] 03/27/2024 14:25 EST - 03/27/2024 17:55 EST Surgery [facility] OR [address] [place], [place] [phone] Vishal Castillo MD [address] [place] [phone] Left Reverse Total Shoulder Arthroplasty [25881 (CPT??)] 04/08/2024 15:30 EST Post-op Visit [facility] Hand & Upper Extremity Program - [address] [place] [address] Vishal Castillo MD [address] [place] [address] Scheduled Procedures Name Priority Associated Diagnoses Date/Ti me ARTHROPLASTY, SHOULDER, TOTAL Left rotator cuff tear arthropathy 03/27/2024 14:25 EST documented as of this encounter Procedures Procedure Name Priority Date/Time Associated Diagnosis Comments PROTIME Routine 05/05/2005 16:00 EST COMPLETE BLOOD COUNT Routine 05/05/2005 16:00 EST CEA Routine 05/05/2005 16:00 EST COMPREHENSIVE METABOLIC PANEL (CMP) Routine 05/05/2005 16:00 EST documented in this encounter Results * PROTIME (05/05/2005 16:00 EST) Pro Time 13.8 12.0 - 15.0 secs [facility] I.N.R. 1.0 0.9 - 1.1 Ratio [facility] Comment: Moderate Intensity Coumadin INR = 2.0-3.0 Adjustments in anticoagulant therapy dose should be based upon the INR and NOT the Pro Time. 05/05/2005 16:0 0 EST 05/05/2005 18:57 EST Papo Godoy MD HEMATOLOGY & PF4 ORDERABLES Final Result Performing Organization Address [facility] Co de Phone Number [facility] [address] [place] [address] * (ABNORMAL) COMPREHENSIVE METABOLIC PANEL (05/05/2005 16:00 EST) Pathologist [facility] Potassium 4.9 3.5 - 5.0 mEq/L [facility] Sodium 136 136 - 145 mEq/L [facility] Chloride 105 96 - 110 mEq/L [facility] CO2 25 24 - 32 mEq/L [facility] Total Alkaline Phosphatase 70 38 - 126 U/L [facility] Bilirubin, Total <0.5 0.2 - 1.3 mg/dl [facility] AST 27 15 - 46 U/L [facility] ALT 38 9 - 52 U/L [facility] Albumin 4.1 3.4 - 4.9 g/dl [facility] Total Protein 6.8 6.5 - 8.3 g/dl [facility] Creatinine 1.3 0.7 - 1.5 mg/dl [facility] BUN 25 10 - 26 mg/dl [facility] Calcium 9.4 8.5 - 10.5 mg/dl [facility] Calculated Calcium 9.7 8.5 - 10.5 mg/dl [facility] Glucose, Serum 115(H) 70 - 110 mg/dl [facility] Fasting? No [facility] Albumin/Globulin Ratio 1.5 [facility] 05/05/2005 16:0 0 EST 05/05/2005 18:57 EST Papo Godoy MD CHEMISTRY & BLOOD GAS ORDER ЕЛЕНА Final Result Performing Organization Address [facility] Co de Phone Number [facility] [address] [place] [address] * CEA (05/05/2005 16:00 EST) CEA 1.0 ng/ml [facility] Comment: % Distribution of CEA (ng/ml) 0-2.5 in 98.2% of non-smokers and 87.3% of smokers 2.6-5.0 in 1.8% of non-smokers and 8.0% of smokers 5.1-10.1 in 4.7% of smokers Serum CEA concentration should not be interpreted as absolute evidence for the presence or absence of malignant disease. Assayed utilizing [employer] chemiluminescent technology. Values obtained by using different assay methods cannot be used interchangeably. 05/05/2005 16:0 0 EST 05/05/2005 18:57 EST Papo Godoy MD CHEMISTRY & BLOOD GAS ORDER ЕЛЕНА Final Result Performing Organization Address [facility] de Phone Number [facility] [address] [place] [address] * (ABNORMAL) HEMAGRAM (05/05/2005 16:00 EST) Pathologist [facility] WBC 7.93 4.0 - 12.4 K/cmm [facility] RBC 3.08(L) 3.86 - 5.04 M/cmm [facility] Hemoglobin 8.7(L) 11.6 - 15.2 gm/dl [facility] HCT 25.9(L) 34.9 - 44.4 % [facility] MCV 84 81 - 98 fl [facility] MCH 28.2 26.7 - 33.3 pg [facility] MCHC 33.5 32.1 - 35.9 gm/dl [facility] PLT 359(H) 141 - 320 K/cmm [facility] RDW-CV 14.4 11.7 - 14.6 % [facility] 05/05/2005 16:0 0 EST 05/05/2005 18:57 EST Papo Godoy MD HEMATOLOGY & PF4 ORDERABLES Final Result Performing Organization Address [facility] de Phone Number [facility] [address] [place] [address] documented in this encounter Visit Diagnoses Not on filedocumented in this encounter
--- OUTSIDE RECORDS SUMMARY | 2024-03-18 22:17 | XMS_ITS | Encounter Summary ---
Author Organization [facility] Address [address] [place] [address] Care Team Providers Care Child Study Team Director Name Role Phone EduardoBarbara cherry Myla COUNSEL Primary Care Provider Encounter Details Date Type Department Care Team (Late st Contact Info) Description 05/06/2005 Office Visit [facility] [place] [facility] [address] [place] [address] Chantal Marks PA Social History Tobacco Use Types Packs/Day Years Used Date Smoking Tobacco: Never Assessed Comments Unknown Sex and Gender Information Value Date Recorded Sex Assigned at Female 03/08/2024 18:30 EST Legal Sex Female 18:30 EST Gender Identity Female 05/28/2019 8:56 EST Sexual Orientation Not on file documented as of this encounter Progress Notes * Chantal Marks PA - 06/23/20092001 EST Department - Physician Summary Registration Date/Time: 05/06/2005 1:17 Time Seen: 02:29 ; initial patient contact, initial documentation. Arrived- By private vehicle. Historian - patient. HISTORY OF PRESENT ILLNESS Chief complaint- LOWER EXTREMITY PAIN. This started about 1800 yesterday and is stillpresent (greater cramping in R ). The quality is noted to be (cramping- entire leg). Severity is described as beingmoderate. Not worsened by anything and not relieved byanything - She has not had redness or swelling. No difficulty walking. No bladder dysfunction, bowel dysfunction, sensory loss or motor loss. Patient denies an injury. The patient has had similar symptoms previously. These were milder. The patient was seen recently in a clinic (had sigmoidoscopy yesterday-dxed withlarge colonic polyp. will have surgical f/u with dr cerna). REVIEW OF SYSTEMS The patient has had moderately bloody stools (for months). They have occurred many times. Ithas been similar to previous symptoms. No cough, chest pain, difficulty breathing, fever or skin rash. No enlarged lymph nodes, neck pain, back pain, headache or blurred vision. No abdominal pain, vomiting, diarrhea or difficulty with urination. PAST HISTORY See nurses notes. Medications: See nurses notes. Allergies: See nurses notes. SOCIAL HISTORY Nonsmoker. No alcohol use. ADDITIONAL NOTES The nursing notes have been reviewed. PHYSICAL EXAM Appearance: Alert. Oriented X3. No acute distress. Vital Signs: Have been reviewed - Eyes: Pupils equal, round and reactive to light. Eyes normal inspection. Neck: Neck supple. CVS: Normal heart rate and rhythm. Heart sounds normal. Respiratory: No respiratory distress. Breath sounds normal. Abdomen: Abdomen soft and nontender. Back: No back tenderness. Skin: Skin intact. Normal skin turgor. Pallor. Skin warm and dry. Extremities: Lower extremities exhibit normal ROM. No lower extremity edema. No signs of infection involving the lower extremities. No lower extremity edema. No calf tenderness. Femoral, post tib=bilat. Extremities otherwise negative. Gait: She was able to bear weight. Neuro, Vascular, and Tendons: (1 plus, Rdp 2 plus). Left dorsalis pedis pulse deficit. Lower extremity capillary refill not prolonged. Neuro: Oriented X 3. No motor deficit. No sensory deficit. LABS, X-RAYS, AND EKG Laboratory Tests: ( cea-pending). CBC: WBC - normal. Hgb 8.7 -. HCT 25.9. Platelets 359 - Chemistries: Na - 136. K - 4.9. Cl - 105. HCO3 - 25. Glucose - 115. Coagulation Studies: PT 13.8. INR 1. PROGRESS AND PROCEDURES Discussed case with physician Dr. Christie. ED Attendingon duty and available for supervision (chanda). Disposition: Discharged home. Condition: stable. Discharged home in stable condition. CLINICAL IMPRESSION Acute right lower leg pain and left lower leg pain . INSTRUCTIONS Continue current medications. Warnings: GENERAL WARNINGS: Return or contact your physician immediately if your condition worsens or changesunexpectedly, if not improving as expected, or if other problems arise. Specifically return if painor breathing difficulty worsens. Fever, paleness/coolness/numbness-tingling of lower extremities. Prescription Medications: Valium 5 mg: Take 1 tablet orally every 8 hours as needed for muscle spasm. Dispense fifteen (15). No refills. Generic substitute OK. OTC Medications: Take acetaminophen (Tylenol, Datril, etc.) and ibuprofen (Advil, Nuprin, etc.) according to label instructions. Available over the counter. Follow-up: Follow up with your doctor for recheck Monday. (Electronically signed by Ruth Holt 05/06/2005 5:35) Department - Nursing Summary Registration Date/Time: 05/06/2005 1:17 TRIAGE Initial Assessment Triage time 0115. Acuity: LEVEL 4. BP: 98 / 60. HR: 94. RR: 16. Alert. No acute distress. --0121 Sean Lin R.N. Temp: 36.9 C (tympanic). --012 Sean Lin R.N. Medications Avapro. ( avidian). Glucophage. Lisinopril. ( vitorin). --0121 Sean Lin R.N. Allergies No known drug allergies. --0121 Sean Lin R.N. History Chief Complaint: ( leg cramps). This started just prior to arrival. Pain level now: 8/10. Treatment RESEARCH BIOLOGIST: Used OTC topical product. PAST HX: Diabetes mellitus. Hypertension. SOCIAL HX: Nonsmoker. No alcohol use. No report of abuse. Arrived by private vehicle. Historian: patient. --0121 Sean Lin R.N. Interventions ID band on patient. --0121 Sean Lin R.N. NURSING PROGRESS NOTES Progress ACETAMINOPHEN 975 mg PO. IBUPROFEN 600 mg PO. VALIUM 5 mg PO. . --032 Tiffanie Harding R.N. DISPOSITION / DISCHARGE Condition at departure: unchanged. Discharge instructions reviewed with the patient. Reviewed medication; prescription (s) given to the patient. Patient verbalized understanding. Written instructionsprovided in Korean. The patient was discharged home and accompanied by cloth shearing supervisor. The patient leftthe Emergency Department ambulatory and via private vehicle. Retail Management Keyholder driving. --327 Sonny Saldana R.N., R.N. Locked/Released at 05/06/2005 3:28 by Tiffanie Harding R.N. documented in this encounter Plan of Treatment Upcoming Encounters Date Type Department Care Team (Latest Contact Info) Description 03/27/2024 14:25 EST Hospital Encounter [facility] OR [address] [place] [phone] Vishal Castillo MD [address] [place] [phone] 03/27/2024 14:25 EST - 03/27/2024 17:55 EST Surgery [facility] OR [address] [place] [address] [phone] Vishal Castillo MD [address] [place] [phone] Left Reverse Total Shoulder Arthroplasty [47875 (CPT??)] 04/08/2024 15:30 EST Post-op Visit [facility] Hand & Upper Extremity Program - [address] [address] Vishal Castillo MD [address] [place] [phone] Scheduled Procedures Name Priority Associated Diagnoses Date/Ti me ARTHROPLASTY, SHOULDER, TOTAL Left rotator cuff tear arthropathy 03/27/2024 14:25 EST documented as of this encounter Visit Diagnoses Not on filedocumented in this encounter Care Teams Child Study Team Director Relationship Specialty Start Date End Date Barbara Conway, COUNSEL [address] [place] [address] PCP - General 08/14/08 07/22/13 documented as of this encounter
--- OUTSIDE RECORDS SUMMARY | 2024-03-18 22:17 | XMS_ITS | Encounter Summary ---
Author Organization [facility] Address [address] [place] [address] Care Team Providers Care Supplier Quality Specialist Name Role Phone Barbara Conway [employer] Primary Care Provider [phone] Encounter Details Date Type Department Care Team (Late st Contact Info) Description 05/05/2005 Results Only [facility] [address] [place], [place] [phone] Papo Godoy MD [address] [place] [phone] Social History Tobacco Use Types Packs/Day Years [...] Info) Description 03/27/2024 14:25 EST Hospital Encounter [facility] OR [address] [place] [address] Vishal Castillo MD [address] [place] [phone] 03/27/2024 14:25 EST - 03/27/2024 17:55 EST Surgery [facility] OR [address] [place] [address] Vishal Castillo MD [address] [place] [phone] Left Reverse Total Shoulder Arthroplasty [95995 (CPT??)] 04/08/2024 15:30 EST Post-op Visit [facility] Hand & Upper Extremity Program - [address] [place] [address] Vishal Castillo MD [address] [place] [address] Scheduled Procedures Name Priority Associated Diagnoses Date/Ti me ARTHROPLASTY, SHOULDER, TOTAL Left rotator cuff tear arthropathy 03/27/2024 14:25 EST documented as of this encounter Procedures Procedure Name Priority Date/Time Associated Diagnosis Comments SURGICAL PATHOLOGY Routine 05/05/2005 0:00 EST documented in this encounter Results * SURGICAL PATHOLOGY (05/05/2005 0:00 EST) Pathology Report: SURGICAL PATHOLOGY REPORT Reports generated via electronic interface contain original data; however they are lacking the format of the original report. Caution should be taken when reading/interpreting unformatted reports. Name: ? ARETHA HILL ? Accession #: ? [id number] ? : ? 1945 (Age: 60) ??F ? Collect Date: ? 05/05/2005 ? Location: ? [facility] ? Receive Date: ? 05/06/2005 ? Provider: PAPO GODOY MD Copy to: MARISOL GOLDMAN MD ? Final Pathologic Diagnosis: ? Rectum, polyp, biopsy: - Adenocarcinoma, moderately differentiated. Comment: ? This case was reviewed at the intradepartmental consultation conference. (Dr. Perera)/[facility] Document reviewed and electronically signed by: Bruce Perera MD Report ??Date: 05/10/2005 07:11 By the signature above, the attending physician certifies that he/she has personally conducted a gross and/or microscopic examination of the described specimens and rendered or confirmed the above diagnosis. Specimen(s) Received: ? Bx polyp Clinical History: ? Complex rectal polyp @ verge. ??R/O Ca. ??Clinical diagnosis code: 578.1 Gross Description: ? Received in Hollande's fixative labelled Jose and bx rectum are three pieces of tissue which vary in size from 0.4 x 0.2 x 0.2 cm to 0.3 x 0.2 x 0.2 cm. ??Submitted intact in one cassette. ??(Maggy Houser)/flyk End of Report [facility] 05/05/2005 05/06/2005 8:5 9 EST us Papo Godoy MD PATHOLOGY ORDERABLES Final Result Performing Organization Address City/State/[facility] Co de Phone Number [facility] [address] [place] [address] documented in this encounter Visit Diagnoses Not on filedocumented in this encounter Care Teams Supplier Quality Specialist Relationship Specialty Start Date End Date Barbara Conway NP [address] [place] [address] PCP - General 08/14/08 07/22/13 documented as of this encounter
--- OUTSIDE RECORDS SUMMARY | 2024-03-18 22:17 | XMS_ITS | Encounter Summary ---
Author Organization [facility] Address [address] [place] [address] Care Team Providers Care Office Messenger Helper Name Role Phone Unavailable Primary Care Provider Unavailabl e Encounter Details Date Type Department Care Team (Latest Contact Info) Description 03/20/2002 16:06 EST Hospital Encounter [facility] Emergency Department - [address] [address] Emergency, Default, MD Discharge Disposition: Home or [...] Description 03/27/2024 14:25 EST Hospital Encounter [facility] OR [address] [place] [address] Vishal Castillo MD [address] [place] [phone] 03/27/2024 14:25 EST - 03/27/2024 17:55 EST Surgery [facility] OR [address] [place] [address] Vishal Castillo MD [address] [place] [phone] Left Reverse Total Shoulder Arthroplasty [77515 (CPT??)] 04/08/2024 15:30 EST Post-op Visit [facility] Hand & Upper Extremity Program - [address] [address] Vishal Castillo MD [address] [place] [phone] Scheduled Procedures Name Priority Associated Diagnoses Date/Ti me ARTHROPLASTY, SHOULDER, TOTAL Left rotator cuff tear arthropathy 03/27/2024 14:25 EST documented as of this encounter Visit Diagnoses Not on filedocumented in this encounter
[2024-03-18 22:20] LABS: ALT 17 U/L (14-59); AST 22 U/L (15-37); Albumin 4.1 g/dL (3.4-5.0); Alkaline Phosphatase 82 U/L (46-116); Anion Gap 7.5 mmol/L (3-11); BUN 16 mg/dL (7-18); Bilirubin, Total 0.53 mg/dL (0.2-1.0); CO2 28.5 mmol/L (21.0-32.0); Calcium 9.3 mg/dL (8.5-10.1); Chloride 106 mmol/L (98-107); Estimated GFR 57.66 (mL/min/1.73m2); Glucose 94 mg/dL (74-106); Potassium 4.1 mmol/L (3.5-5.1); Sodium 142 mmol/L (136-145); TSH 0.59 uIU/mL (0.36-3.74); Total Protein 8.1 g/dL (6.4-8.2)
[2024-03-19 17:59] LABS: CEA 2.7 ng/mL (See Note)
[2024-03-19 18:37] LABS: Hepatitis C Ab w Rflx HCV PCR Negative (Negative)
== END 2024-03-18 22:03 | disposition home or self-care (01) ==
LOC: NCHCN 22:02
PROVIDERS: PCP Nurse Practitioner Family; Visit Provider Nurse Practitioner Family
DX: I10 Essential (primary) hypertension (principal); Z01.818 Encounter for other preprocedural examination
CPT/HCPCS: 80053; 86803; 82378; 84443; 85025

== ENCOUNTER 2024-09-17 11:50 | Outpatient (REF) | payer MEDICARE, OTHER, SELFPAY ==
[2024-09-17 15:37] LABS: COMMENT (LAB VIEW ONLY) 17.75 mg/dL; Microalb ug/mg Crea 50.7 ug/mg Cr
== END 2024-09-17 11:51 | disposition home or self-care (01) ==
LOC: NCHCN 11:50
PROVIDERS: PCP Nurse Practitioner Family; Visit Provider Nurse Practitioner Family
DX: E11.9 Type 2 diabetes mellitus without complications (principal)
CPT/HCPCS: 82043; 82570

== ENCOUNTER 2025-03-18 14:19 | Outpatient (REF) | payer MEDICARE, OTHER, SELFPAY ==
[2025-03-18 16:18] LABS: HCT 36.2 % (36.0-46.0); HGB 11.4 g/dL (11.2-15.7); MCH 28.9 pg (27.0-33.0); MCHC 31.5 % (32.0-36.0); MCV 92 fL (80-95); MPV 10.3 fL (8.0-11.0); Platelet Count 281 10^3/uL (130-400); RBC 3.94 10^6/uL (3.93-5.22); RDW 12.8 % (11.7-14.6); RDW-SD 43.7 fL; WBC 8.57 10^3/uL (4.4-10.8)
[2025-03-18 16:28] LABS: TSH 0.76 uIU/mL (0.55-4.78)
[2025-03-18 16:33] LABS: Hemoglobin A1C 5.9 % (<5.7)
[2025-03-18 16:38] LABS: Anion Gap 7.2 mmol/L (3-11); BUN 22 mg/dL (9-23); CO2 25.8 mmol/L (20.0-31.0); Calcium 9.3 mg/dL (8.3-10.6); Chloride 105 mmol/L (98-107); Glucose 94 mg/dL (74-106); Potassium 4.5 mmol/L (3.5-5.1); Sodium 138 mmol/L (136-145)
== END 2025-03-18 14:20 | disposition home or self-care (01) ==
LOC: NCHCN 14:19
PROVIDERS: PCP Nurse Practitioner Family; Visit Provider Nurse Practitioner Family
DX: E11.9 Type 2 diabetes mellitus without complications (principal); R63.4 Abnormal weight loss; I10 Essential (primary) hypertension
CPT/HCPCS: 80048; 85027; 82043; 82570; 83036; 84443